=== PATIENT | male | born 1970 | race American Indian/Alaskan Native ===

== ENCOUNTER 2017-12-17 16:11 | Inpatient (IN) | payer MEDICARE ==
[2017-12-17] MEDS ORDERED: ASPIRIN PO ONE (16:33)
--- NOTE | 2017-12-17 16:41 | Emergency Department Report ---
ED Abdominal Pain HPI - General Chief Complaint: Abdominal Pain Stated Complaint: ABD PAIN Time Seen by Provider: 12/17/17 16:35 Source: patient Mode of arrival: Stretcher Limitations: No Limitations - History of Present Illness Initial Comments: She is a 47-year-old male presents to emergency room with complaints of chest pain, shortness of breath and abdominal pain. Patient states that the chest pain as a 10 out of 10. Patient states the pain is better with rest and worse with exertion. Patient states his shortness of breath is better with rest and worse with exertion. Patient states the abdominal pain is a 10 out of 10 and is better with rest and worse with movement and palpation. Patient also complains of abdominal distention and swelling. Patient states he's never had this before patient states SYMPTOMS STARTED 1 DAY AGO. She states he is on hemodialysis on Monday. The patient states he did not miss any of his dialysis sessions. Patient states he had dialysis yesterday. Patient says dialysis was normal and shortly after he developed the swelling in his abdomen. Patient also complains of nausea, vomiting and dizziness that started this morning MD Complaint: abdominal pain -: Sudden Location: diffuse Radiation: none Migration to: no migration Severity scale (0 -10): 10 Quality: stabbing, fullness Consistency: constant Improves With: rest Worsens With: movement Associated Symptoms: nausea, vomiting. denies: diarrhea, fever, chills, constipation, dysuria, hematemesis, hematochezia, melena, hematuria, anorexia, syncope - Related Data Home Medications Medication Instructions Recorded Confirmed Last Taken Furosemide [Lasix] 20 mg PO BID 10/10/17 10/10/17 Unknown Labetalol [Normodyne TAB] 100 mg PO DAILY 10/10/17 10/10/17 Unknown Allergies Allergy/AdvReac Type Severity Reaction Status Date / Time No Known Allergies Allergy Verified 01/30/17 20:04 ED Review of Systems ROS: Stated complaint: ABD PAIN Other details as noted in HPI Constitutional: denies: chills, fever Eyes: denies: eye pain, eye discharge, vision change ENT: denies: ear pain, throat pain Respiratory: shortness of breath, SOB with exertion, SOB at rest. denies: cough , wheezing Cardiovascular: chest pain. denies: palpitations Endocrine: no symptoms reported Gastrointestinal: abdominal pain, nausea, vomiting. denies: diarrhea Genitourinary: denies: urgency, dysuria Musculoskeletal: denies: back pain, joint swelling, arthralgia Skin: denies: rash, lesions Neurological: vertigo. denies: headache, weakness, paresthesias Psychiatric: denies: anxiety, depression Hematological/Lymphatic: denies: easy bleeding, easy bruising ED Past Medical Hx - Past Medical History Previous Medical History?: Yes Hx Hypertension: Yes Hx Congestive Heart Failure: No Hx Diabetes: No Hx Renal Disease: Yes Hx Asthma: No Hx COPD: No Hx HIV: No - Surgical History Past Surgical History?: Yes Additional Surgical History: dialysis access left arm - Family History Family history: hypertension - Social History Smoking Status: Current Every Day Smoker Substance Use Type: None - Medications Home Medications: Home Medications Medication Instructions Recorded Confirmed Last Taken Type Furosemide [Lasix] 20 mg PO BID 10/10/17 10/10/17 Unknown History Labetalol [Normodyne TAB] 100 mg PO DAILY 10/10/17 10/10/17 Unknown History ED Physical Exam - General Limitations: No Limitations General appearance: alert, in no apparent distress - Head Head exam: Present: atraumatic, normocephalic - Eye Eye exam: Present: normal appearance - ENT ENT exam: Present: mucous membranes moist - Neck Neck exam: Present: normal inspection - Respiratory Respiratory exam: Present: normal lung sounds bilaterally. Absent: respiratory distress - Cardiovascular Cardiovascular Exam: Present: regular rate, normal rhythm. Absent: systolic murmur, diastolic murmur, rubs, gallop - GI/Abdominal GI/Abdominal exam: Present: soft, distended, tenderness (generalized tenderness) , normal bowel sounds - Rectal Rectal exam: Present: deferred - Extremities Exam Extremities exam: Present: full ROM, pedal edema (bilateral lower extremity edema) - Back Exam Back exam: Present: normal inspection - Neurological Exam Neurological exam: Present: alert, oriented X3 - Psychiatric Psychiatric exam: Present: normal affect, normal mood - Skin Skin exam: Present: warm, dry, intact, normal color. Absent: rash ED Course Vital Signs 12/17/17 12/17/17 12/17/17 16:14 16:17 16:18 Temperature 98.5 F Pulse Rate 89 88 90 Respiratory 16 20 Rate Blood Pressure 198/130 O2 Sat by Pulse 99 100 Oximetry 12/17/17 12/17/17 12/17/17 16:19 16:21 16:23 Temperature Pulse Rate 86 87 86 Respiratory 17 16 16 Rate Blood Pressure 195/129 O2 Sat by Pulse 98 99 Oximetry 12/17/17 12/17/17 12/17/17 16:25 16:27 16:29 Temperature Pulse Rate 87 89 88 Respiratory 27 H 16 16 Rate Blood Pressure 195/129 195/129 195/129 O2 Sat by Pulse 99 99 100 Oximetry 12/17/17 12/17/17 12/17/17 16:30 16:33 16:35 Temperature Pulse Rate 87 86 85 Respiratory 13 18 19 Rate Blood Pressure 196/126 196/126 196/126 O2 Sat by Pulse 100 100 100 Oximetry 12/17/17 12/17/17 12/17/17 16:37 16:41 16:42 Temperature 97.9 F Pulse Rate 83 Respiratory 31 H 21 Rate Blood Pressure 196/126 O2 Sat by Pulse 98 100 Oximetry 12/17/17 12/17/17 12/17/17 16:45 16:51 16:55 Temperature Pulse Rate 86 85 85 Respiratory 17 21 31 H Rate Blood Pressure 202/126 202/126 202/126 O2 Sat by Pulse 100 100 100 Oximetry 12/17/17 12/17/17 12/17/17 17:00 17:05 17:11 Temperature Pulse Rate 83 84 82 Respiratory 29 H 27 H 20 Rate Blood Pressure 190/120 190/120 190/120 O2 Sat by Pulse 100 100 Oximetry 12/17/17 12/17/17 12/17/17 17:25 17:31 17:41 Temperature Pulse Rate 86 86 87 Respiratory 19 24 20 Rate Blood Pressure 190/120 190/124 190/124 O2 Sat by Pulse Oximetry 12/17/17 12/17/17 12/17/17 17:51 18:00 18:11 Temperature Pulse Rate 85 86 84 Respiratory 16 26 H 23 Rate Blood Pressure 197/120 195/124 195/124 O2 Sat by Pulse Oximetry 12/17/17 12/17/17 12/17/17 18:21 18:30 18:41 Temperature Pulse Rate 83 84 85 Respiratory 21 17 20 Rate Blood Pressure 198/130 199/122 199/122 O2 Sat by Pulse Oximetry 12/17/17 12/17/17 12/17/17 18:51 19:00 19:11 Temperature Pulse Rate 83 83 84 Respiratory 25 H 25 H 25 H Rate Blood Pressure 198/124 194/122 194/122 O2 Sat by Pulse Oximetry 12/17/17 12/17/17 12/17/17 19:21 19:30 19:41 Temperature Pulse Rate 84 84 85 Respiratory 21 20 27 H Rate Blood Pressure 200/125 198/123 198/123 O2 Sat by Pulse Oximetry 12/17/17 12/17/17 12/17/17 19:51 20:00 20:11 Temperature Pulse Rate 85 88 88 Respiratory 17 28 H 23 Rate Blood Pressure 194/119 192/120 192/120 O2 Sat by Pulse Oximetry 12/17/17 12/17/17 12/17/17 20:21 20:30 20:41 Temperature Pulse Rate 88 89 90 Respiratory 21 26 H 17 Rate Blood Pressure 185/110 195/118 195/118 O2 Sat by Pulse Oximetry 12/17/17 21:04 Temperature Pulse Rate 90 Respiratory Rate Blood Pressure 195/118 O2 Sat by Pulse Oximetry - Reevaluation(s) Reevaluation #1: plan of care discussed with patient. Patient agrees to admission. Patient states that she had Lasix in the past and it doesn't do anything to increase his urination. All results discussed with patient. 12/17/17 19:18 - Consultations Consultation #1: Hospitalist consulted for admission. Discussed case fully with hospitalist. Dr. Hodge, hospitalist to assume care. Hospitalist was made aware of all results. 12/17/17 19:19 ED Medical Decision Making - Lab Data Result diagrams: 12/17/17 16:30 12/17/17 16:30 - EKG Data -: EKG Interpreted by [facility] EKG shows normal: sinus rhythm, axis, intervals, QRS complexes, ST-T waves Rate: normal - EKG Data Interpretation: [facility] - Radiology Data Radiology results: report reviewed ct abd: CT abdomen positive for anasarca and ascites. Patient also found to have bilateral pleural effusions. Cardiac enlargement noted. Pulmonary congestion noted - Medical Decision Making pt is a 47-year-old male that presents to emergency room with chest pain, shortness of breath, bilateral lower extremity and abdominal edema, abdominal pain and abdominal distention. Patient found to be in acute exacerbation of CHF. Patient has an elevated troponin most likely secondary to renal disease. Due to the fact the patient does not create urine when given Lasix, it is a possibility that the treatment for this will be dialysis to remove the extra fluid. Hospitalist was made aware of the case patient to be admitted to the hospitalist service for further evaluation and treatment. Patient found to have cardiomegaly. Patient also found to have anasarca and ascites. - Differential Diagnosis new-onset CHF. Chest pain, shortness of breath, edema, anasarca, ascites Critical Care Time: Yes Critical care attestation.: If time is entered above; I have spent that time in minutes in the direct care of this critically ill patient, excluding procedure time. Critical Care Time: 35 minutes for cc time ED Disposition Clinical Impression: Hyperkalemia, End stage chronic kidney disease, ESRD (end stage renal disease) on dialysis, Anasarca, Lower extremity edema, Abdominal distension, Shortness of breath, Elevated troponin, Elevated brain natriuretic peptide (BNP) level Anemia Qualifiers: Anemia type: unspecified type Qualified Code(s): D64.9 - Anemia, unspecified Abdominal pain Qualifiers: Abdominal location: generalized Qualified Code(s): R10.84 - Generalized abdominal pain Chest pain Qualifiers: Chest pain type: unspecified Qualified Code(s): R07.9 - Chest pain, unspecified CHF exacerbation Qualifiers: Heart failure type: unspecified Qualified Code(s): I50.9 - Heart failure, unspecified Disposition: OP ADMIT IP TO THIS HOSP Is pt being admited?: Yes Does the pt Need Aspirin: No Condition: Critical Time of Disposition: 19:28 ISAI score - Isai Score Age > 65: (0) No Aspirin use within the Past 7 Days: (0) No 3 or more CAD Risk Factors: (1) Yes 2 or more Angina events in past 24 hrs: (1) Yes Known CAD with more than 50% Stenosis: (0) No Elevated Cardiac Markers: (1) Yes ST Deviation Greater than 0.5mm: (0) No ISAI Score: 3 Head Injury w/o Laceration - HPI Chief Complaint: Abdominal Pain Stated Complaint: ABD PAIN Time Seen by Provider: 12/17/17 16:35 Heart Score - HEART Score History: Slightly suspicious EKG: Normal Age: 45-65 Risk factors: > 3 risk factors or hx of atherosclerotic disease Troponin: 1-3x normal limit HEART Score: 4
[2017-12-17] MEDS ORDERED: MORPHINE IV ONE (16:56)
[2017-12-17 17:00] LABS: Albumin 4.1 g/dL (3.9-5); Calcium 9.2 mg/dL (8.4-10.2)
[2017-12-17 17:04] LABS: Hematocrit 26.8 % (35.5-45.6); Hemoglobin 8.4 gm/dl (11.8-15.2); Mean Corpuscular HGB Conc 32 % (32-34); Mean Corpuscular Hemoglobin 28 pg (28-32); Mean Corpuscular Volume 88 fl (84-94); Platelet Count 201 K/mm3 (140-440); Red Blood Count 3.04 M/mm3 (3.65-5.03); Red Cell Distribution Width 18.5 % (13.2-15.2)
[2017-12-17 17:19] LABS: Chol/HDL Ratio 2.36 %
--- NOTE | 2017-12-17 18:08 | Cat Scan Report ---
FINAL REPORT EXAM: CT ABDOMEN PELVIS WO CON HISTORY: abd pain COMPARISON: CT of the abdomen pelvis January 2017. TECHNIQUE: Contiguous axial images were obtained. Additional sagittal and coronal reformatted images were obtained. FINDINGS: Small right-sided pleural effusion and nonspecific linear ground-glass opacities at the lung bases concerning for mild atelectasis versus congestion. Moderate cardiac enlargement. Trace pericardial effusion measuring 7 millimeters in thickness. Liver, spleen, pancreas are grossly unremarkable. Nodular thickening of adrenal glands. Polycystic kidney disease. Innumerable bilateral renal cysts. There are numerable hyperdense bilateral renal lesions likely reflecting hyperdense cysts. Solid nodule is not excluded on this study. Few parenchymal calcifications are scattered throughout the kidneys. No obstructive renal calculi. No hydronephrosis. Aorta and IVC normal in caliber. Mild calcification aorta. [id number] diffuse body wall edema. The small to moderate amount of free fluid in the abdomen and pelvis. Small right inguinal hernia containing fluid. No loculated collection. No free air. Urinary bladder and prostate gland are grossly unremarkable. Large and small bowel loops normal in caliber. No focal inflammatory changes the bowel or bowel obstruction. The appendix is not visualized. Prior anterior abdominal wall herniorrhaphy. No evidence of recurrent hernia. Diffuse sclerosis of the lumbar spine compatible with renal osteodystrophy. Grade 1 anterolisthesis of L4 on L5 by approximately 7 millimeters due to bilateral pars defects. Severe loss of disc height at that level. This IMPRESSION: Polycystic kidney disease. No hydronephrosis. Innumerable bilateral renal cysts and probable hyperdense cyst. No hydronephrosis. Solid renal lesion not excluded on this exam. Prominent diffuse body wall edema and small to moderate amount of ascites. No loculated collection. Small right-sided pleural effusion with linear ground-glass opacities at the lung bases concerning for mild congestion. Moderate cardiac enlargement with trace pericardial fluid. Sclerotic changes of renal osteodystrophy.
[2017-12-17 18:21] LABS: Anisocytosis 1+; Platelet Estimate Consistent w Auto; Total Cells Counted 100
--- NOTE | 2017-12-17 19:25 | XRay Report ---
FINAL REPORT PROCEDURE: XR CHEST 1V AP TECHNIQUE: Chest radiograph anteroposterior view. CPT 94381 HISTORY: [email or web address] COMPARISON: 10/09/2017 FINDINGS: Heart: Cardiac size is upper limit of normal. Mediastinum/Vessels: Normal. Lungs/Pleural space: This study is limited due to suboptimal inspiration. There are no obvious confluent infiltrates or mass lesions. Pleural spaces are clear.. Bony thorax: No acute osseous abnormality. Life support devices: None. IMPRESSION: Limited study due to suboptimal inspiration No obvious acute pulmonary process Cardiac size is upper limit of normal A two view chest study is recommended whenever the patient's condition permits..
[2017-12-17] MEDS ORDERED: APRESOLINE IV ONE (21:00)
--- NOTE | 2017-12-17 22:07 | History and Physical Report ---
History of Present Illness Date of examination: 12/17/17 Date of admission: 12/17/17 Chief complaint: Chief complaint: Increasing shortness of breath and swelling all over for 1 week History of present illness: History of Present Illness: 47-year-old black male with history of hypertension end-stage renal disease noncompliant with dialysis comes in for increasing shortness of breath increasing distention of the abdomen and swelling of both the lower extremities. Patient says that he had dialysis yesterday. He has a history of end-stage renal disease since 2012. Went off dialysis from the beginning of 2015 through December 2016. Resume hemodialysis on [facility] but he stays near [facility]. He wants to go to the dialysis center close by. Has been noncompliant because of transportation issues. Patient has been having increasing shortness of breath increasing abdominal girth and bilateral pedal edema. Shortness of breath on minimal exertion. Excessive fluid intake. Patient is on dialysis Monday and Monday. Had dialysis yesterday. Past Medical History Previous Medical History?: Yes Hx Hypertension: Yes Hx Renal Disease: Yes Surgical History Past Surgical History?: Yes Additional Surgical History: dialysis access left arm Family History Family history: hypertension Social History Smoking Status: Current Every Day Smoker Substance Use Type: None Medications Home Medications: Home Medications Medication Instructions Recorded Confirmed Last Taken Type Furosemide [Lasix] 20 mg PO BID 10/10/17 10/10/17 Unknown History Labetalol [Normodyne TAB] 100 mg PO DAILY 10/10/17 10/10/17 Unknown History Review of systems ROS: Stated complaint: ABD PAIN Other details as noted in HPI Constitutional: denies: chills, fever Eyes: denies: eye pain, eye discharge, vision change ENT: denies: ear pain, throat pain Respiratory: shortness of breath, SOB with exertion, SOB at rest. denies: cough , wheezing Cardiovascular: chest pain. denies: palpitations Endocrine: no symptoms reported Gastrointestinal: abdominal pain, nausea, vomiting. denies: diarrhea , has severe abdominal distention Genitourinary: denies: urgency, dysuria Musculoskeletal: denies: back pain, joint swelling, arthralgia swelling of both the legs Skin: denies: rash, lesions Neurological: vertigo. denies: headache, weakness, paresthesias Psychiatric: denies: anxiety, depression Hematological/Lymphatic: denies: easy bleeding, easy bruising 14 point review of systems done--otherwise negative Medications and Allergies Allergies Allergy/AdvReac Type Severity Reaction Status Date / Time No Known Allergies Allergy Verified 01/30/17 20:04 Home Medications Medication Instructions Recorded Confirmed Last Taken Type Furosemide [Lasix] 20 mg PO BID 10/10/17 10/10/17 Unknown History Labetalol [Normodyne TAB] 100 mg PO DAILY 10/10/17 10/10/17 Unknown History Exam - Physical Exam Narrative exam: Lying in bed in mild distress - Constitutional Vitals: Temp Pulse Resp BP Pulse Ox 97.9 F 90 17 195/118 100 12/17/17 16:42 12/17/17 21:04 12/17/17 20:41 12/17/17 21:04 12/17/17 17:05 General appearance: Present: mild distress, well-nourished - EENT Eyes: Present: PERRL ENT: hearing intact, clear oral mucosa - Neck Neck: Present: supple, normal ROM - Respiratory Respiratory effort: normal Respiratory: bilateral: CTA, rales - Cardiovascular Heart rate: 96 Rhythm: regular Heart Sounds: Present: S1 & S2. Absent: rub, click - Extremities Extremities: no ischemia, pulses intact, pulses symmetrical, abnormal ( significant swelling of both lower extremities) Extremity abnormal: edema (4+ pitting edema both lower extremities), other (4+ pitting edema both lower extremities) Peripheral Pulses: within normal limits - Abdominal General gastrointestinal: Present: soft, non-tender, non-distended, normal bowel sounds Male genitourinary: Present: normal - Rectal Rectal Exam: deferred - Integumentary Integumentary: Present: clear, warm, dry - Musculoskeletal Musculoskeletal: gait normal, strength equal bilaterally - Psychiatric Psychiatric: appropriate mood/affect, intact judgment & insight - Neurologic Neurologic: CNII-XII intact, moves all extremities - Allied Health Allied health notes reviewed: nursing, case management Results - Labs CBC & Chem 7: 12/17/17 16:30 12/17/17 16:30 Labs: Laboratory Last Values WBC 7.2 K/mm3 (4.5-11.0) 12/17/17 16:30 RBC 3.04 M/mm3 (3.65-5.03) L 12/17/17 16:30 Hgb 8.4 gm/dl (11.8-15.2) L 12/17/17 16:30 Hct 26.8 % (35.5-45.6) L 12/17/17 16:30 MCV 88 fl (84-94) 12/17/17 16:30 MCH 28 pg (28-32) 12/17/17 16:30 MCHC 32 % (32-34) 12/17/17 16:30 RDW 18.5 % (13.2-15.2) H 12/17/17 16:30 Plt Count 201 K/mm3 (140-440) 12/17/17 16:30 Lymph % (Auto) Physical Therapy Supervisor 12/17/17 16:30 Ripley % (Auto) Physical Therapy Supervisor 12/17/17 16:30 Eos % (Auto) Physical Therapy Supervisor 12/17/17 16:30 Baso % (Auto) Physical Therapy Supervisor 12/17/17 16:30 Lymph # Physical Therapy Supervisor 12/17/17 16:30 Ripley # Physical Therapy Supervisor 12/17/17 16:30 Eos # Physical Therapy Supervisor 12/17/17 16:30 Baso # Physical Therapy Supervisor 12/17/17 16:30 Add Manual Diff Complete 12/17/17 16:30 Total Counted 100 12/17/17 16:30 Seg Neutrophils % Physical Therapy Supervisor 12/17/17 16:30 Seg Neuts % (Manual) 62.0 % (40.0-70.0) 12/17/17 16:30 Band Neutrophils % 0 % 12/17/17 16:30 Lymphocytes % (Manual) 19.0 % (13.4-35.0) 12/17/17 16:30 Reactive Lymphs % (Man) 0 % 12/17/17 16:30 Monocytes % (Manual) 12.0 % (0.0-7.3) H 12/17/17 16:30 Eosinophils % (Manual) 6.0 % (0.0-4.3) H 12/17/17 16:30 Basophils % (Manual) 1.0 % (0.0-1.8) 12/17/17 16:30 Metamyelocytes % 0 % 12/17/17 16:30 Myelocytes % 0 % 12/17/17 16:30 Promyelocytes % 0 % 12/17/17 16:30 Blast Cells % 0 % 12/17/17 16:30 Nucleated RBC % Not Reportable 12/17/17 16:30 Seg Neutrophils # Physical Therapy Supervisor 12/17/17 16:30 Seg Neutrophils # Man 4.5 K/mm3 (1.8-7.7) 12/17/17 16:30 Band Neutrophils # 0.0 K/mm3 12/17/17 16:30 Lymphocytes # (Manual) 1.4 K/mm3 (1.2-5.4) 12/17/17 16:30 Abs React Lymphs (Man) 0.0 K/mm3 12/17/17 16:30 Monocytes # (Manual) 0.9 K/mm3 (0.0-0.8) H 12/17/17 16:30 Eosinophils # (Manual) 0.4 K/mm3 (0.0-0.4) 12/17/17 16:30 Basophils # (Manual) 0.1 K/mm3 (0.0-0.1) 12/17/17 16:30 Metamyelocytes # 0.0 K/mm3 12/17/17 16:30 Myelocytes # 0.0 K/mm3 12/17/17 16:30 Promyelocytes # 0.0 K/mm3 12/17/17 16:30 Blast Cells # 0.0 K/mm3 12/17/17 16:30 WBC Morphology Not Reportable 12/17/17 16:30 Hypersegmented Neuts Not Reportable 12/17/17 16:30 Hyposegmented Neuts Not Reportable 12/17/17 16:30 Hypogranular Neuts Not Reportable 12/17/17 16:30 Smudge Cells Not Reportable 12/17/17 16:30 Toxic Granulation Not Reportable 12/17/17 16:30 Toxic Vacuolation Not Reportable 12/17/17 16:30 Dohle Bodies Not Reportable 12/17/17 16:30 Pelger-Huet Anomaly Not Reportable 12/17/17 16:30 Vin Rods Not Reportable 12/17/17 16:30 Platelet Estimate Consistent w auto 12/17/17 16:30 Clumped Platelets Not Reportable 12/17/17 16:30 Plt Clumps, EDTA Not Reportable 12/17/17 16:30 Large Platelets Not Reportable 12/17/17 16:30 Giant Platelets Not Reportable 12/17/17 16:30 Platelet Satelliting Not Reportable 12/17/17 16:30 Plt Morphology Comment Not Reportable 12/17/17 16:30 RBC Morphology Not Reportable 12/17/17 16:30 Dimorphic RBCs Not Reportable 12/17/17 16:30 Polychromasia Not Reportable 12/17/17 16:30 Hypochromasia Not Reportable 12/17/17 16:30 Poikilocytosis Not Reportable 12/17/17 16:30 Anisocytosis 1+ 12/17/17 16:30 Microcytosis Not Reportable 12/17/17 16:30 Macrocytosis Not Reportable 12/17/17 16:30 Spherocytes Not Reportable 12/17/17 16:30 Pappenheimer Bodies Not Reportable 12/17/17 16:30 Sickle Cells Not Reportable 12/17/17 16:30 Target Cells Not Reportable 12/17/17 16:30 Tear Drop Cells Not Reportable 12/17/17 16:30 Ovalocytes Not Reportable 12/17/17 16:30 Helmet Cells Not Reportable 12/17/17 16:30 [place] Bodies Not Reportable 12/17/17 16:30 [place] Rings Not Reportable 12/17/17 16:30 [place] Cells Not Reportable 12/17/17 16:30 Bite Cells Not Reportable 12/17/17 16:30 Crenated Cell Not Reportable 12/17/17 16:30 Elliptocytes Not Reportable 12/17/17 16:30 Acanthocytes (Spur) Not Reportable 12/17/17 16:30 Rouleaux Not Reportable 12/17/17 16:30 Hemoglobin C Crystals Not Reportable 12/17/17 16:30 Schistocytes Not Reportable 12/17/17 16:30 Malaria parasites Not Reportable 12/17/17 16:30 Charbel Bodies Not Reportable 12/17/17 16:30 Hem Pathologist Commnt No 12/17/17 16:30 Sodium 136 mmol/L (137-145) L 12/17/17 16:30 Potassium 5.9 mmol/L (3.6-5.0) H 12/17/17 16:30 Chloride 93.0 mmol/L (98-107) L 12/17/17 16:30 Carbon Dioxide 23 mmol/L (22-30) 12/17/17 16:30 Anion Gap 26 mmol/L 12/17/17 16:30 BUN 65 mg/dL (9-20) H 12/17/17 16:30 Creatinine 10.4 mg/dL (0.8-1.5) H 12/17/17 16:30 Estimated GFR 7 ml/min 12/17/17 16:30 BUN/Creatinine Ratio 6 % 12/17/17 16:30 Glucose 78 mg/dL (75-100) 12/17/17 16:30 Lactic Acid 1.50 mmol/L (0.7-2.0) 12/17/17 21:09 Calcium 9.2 mg/dL (8.4-10.2) 12/17/17 16:30 Total Bilirubin 0.60 mg/dL (0.1-1.2) 12/17/17 16:30 AST 33 units/L (5-40) 12/17/17 16:30 ALT 20 units/L (7-56) 12/17/17 16:30 Alkaline Phosphatase 86 units/L (35-129) 12/17/17 16:30 Troponin T 0.362 ng/mL (0.00-0.029) H* 12/17/17 21:09 NT-Pro-B Natriuret Pep > 86028 pg/mL (0-450) H 12/17/17 16:30 Total Protein 7.9 g/dL (6.3-8.2) 12/17/17 16:30 Albumin 4.1 g/dL (3.9-5) 12/17/17 16:30 Albumin/Globulin Ratio 1.1 % 12/17/17 16:30 Triglycerides 63 mg/dL (2-149) 12/17/17 16:30 Cholesterol 137 mg/dL (50-199) 12/17/17 16:30 LDL Cholesterol Direct 73 mg/dL (50-130) 12/17/17 16:30 HDL Cholesterol 58 mg/dL (40-59) 12/17/17 16:30 Cholesterol/HDL Ratio 2.36 % 12/17/17 16:30 - Imaging and Cardiology EKG: report reviewed (sinus rhythm 84/m left atrial enlargement and left ventricular enlargement) Imaging and Cardiology: CT abdomen and pelvis IMPRESSION: Polycystic kidney disease. No hydronephrosis. Innumerable bilateral renal cysts and probable hyperdense cyst. No hydronephrosis. Solid renal lesion not excluded on this exam. Prominent diffuse body wall edema and small to moderate amount of ascites. No loculated collection. Small right-sided pleural effusion with linear ground-glass opacities at the lung bases concerning for mild congestion. Moderate cardiac enlargement with trace pericardial fluid. Sclerotic changes of renal osteodystrophy. Chest x-ray IMPRESSION: Limited study due to suboptimal inspiration No obvious acute pulmonary process Cardiac size is upper limit of normal A two view chest study is recommended whenever the patient's condition permits.. Assessment and Plan Advance Directives: Yes (full code) VTE prophylaxis?: Chemical Plan of care discussed with patient/family: Yes - Patient Problems (1) Hypertensive emergency Current Visit: Yes Status: Acute Plan to address problem: Patient initiated on losartan hydralazine and increase the labetalol 200 every 8.. Also IV hydralazine 10 mg every 2 hours as necessary (2) Anasarca Current Visit: Yes Status: Acute Plan to address problem: Patient needs dialysis and increase ultrafiltration so the volume can be removed. Dialysis can be done in the morning. 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 Nephrology on-call consulted We'll also get echocardiogram for ejection fraction and valve function and to rule out pulmonary hypertension (3) Anemia Current Visit: Yes Status: Chronic Qualifiers: Anemia type: unspecified type Qualified Code(s): D64.9 - Anemia, unspecified Plan to address problem: We will defer to nephrology regarding Epogen (4) ESRD (end stage renal disease) on dialysis Current Visit: Yes Status: Acute Plan to address problem: Needs dialysis in the morning Increase ultrafiltration to remove the volume (5) Hyperkalemia Current Visit: Yes Status: Acute Plan to address problem: Kayexalate calcium gluconate and sodium bicarbonate given in the emergency room Also for dialysis in the morning (6) Lower extremity edema Current Visit: Yes Status: Acute Plan to address problem: Secondary to fluid retention IV Lasix initiated (7) DVT prophylaxis Current Visit: Yes Status: Acute Plan to address problem: on heparin 5000 every 12 GI prophylaxis initiated with famotidine
[2017-12-17] MEDS ORDERED: SODIUM CHLORIDE FLUSH SYRINGE 10 ML IV PRN (22:08)
[2017-12-17] MEDS ORDERED: ZOFRAN IV PRN (22:08)
[2017-12-17] MEDS ORDERED: TYLENOL PO PRN (22:08)
[2017-12-17] MEDS ORDERED: CALCIUM GLUCONATE 2,000 MG in NACL 0.9% 100 ML IV ONE (22:11)
[2017-12-17] MEDS ORDERED: KIONEX PO ONE (22:11)
[2017-12-17] MEDS ORDERED: SODIUM BICARBONATE IV ONE (22:14)
[2017-12-18] MEDS: APRESOLINE PO SCH ×4 (00:08→21:08)
[2017-12-18] MEDS: HEPARIN SUB-Q SCH ×3 (00:08→21:08)
[2017-12-18] MEDS: NORMODYNE PO SCH ×3 (00:09→21:05)
[2017-12-18] MEDS: MORPHINE IV PRN ×3 (02:20→22:33)
[2017-12-18] MEDS: APRESOLINE IV PRN ×3 (02:36→18:30)
[2017-12-18 06:13] LABS: Hematocrit 26.1 % (35.5-45.6); Hemoglobin 8.5 gm/dl (11.8-15.2); Mean Corpuscular HGB Conc 33 % (32-34); Mean Corpuscular Hemoglobin 28 pg (28-32); Mean Corpuscular Volume 86 fl (84-94); Platelet Count 214 K/mm3 (140-440); Red Blood Count 3.03 M/mm3 (3.65-5.03); Red Cell Distribution Width 18.9 % (13.2-15.2)
[2017-12-18 06:29] LABS: Albumin 3.9 g/dL (3.9-5); Calcium 9.3 mg/dL (8.4-10.2)
[2017-12-18 09:12] LABS: Anisocytosis 1+; Poikilocytosis 1+; Total Cells Counted 100
[2017-12-18 09:13] LABS: Large Platelets Few; Ovalocytes Few
[2017-12-18 09:14] LABS: Platelet Estimate Cons; Tear Drop Cells Few
[2017-12-18] MEDS: COZAAR PO SCH (11:03)
[2017-12-18] MEDS: SODIUM CHLORIDE FLUSH SYRINGE 10 ML IV SCH ×2 (11:05→22:39)
[2017-12-18] MEDS: PEPCID PO SCH ×2 (11:05→21:08)
[2017-12-18] MEDS ORDERED: NACL 0.9% 100 ML IV PRN (13:21)
--- NOTE | 2017-12-18 13:21 | Consultation ---
History of Present Illness - Reason for Consult Consult date: 12/18/17 end stage renal disease, accelerated hypertension Requesting physician: DANYA GAY - History of Present Illness 47-year-old black male with history of hypertension end-stage renal disease noncompliant with dialysis comes in for increasing shortness of breath increasing distention of the abdomen and swelling of both the lower extremities. Patient says that he had dialysis yesterday. He has a history of end-stage renal disease since 2012. Went off dialysis from the beginning of 2015 through December 2016. Resume hemodialysis on [facility] but he stays near [facility]. He wants to go to the dialysis center close by. Has been noncompliant because of transportation issues. Patient has been having increasing shortness of breath increasing abdominal girth and bilateral pedal edema. Shortness of breath on minimal exertion. Excessive fluid intake. Patient is on dialysis Monday and Monday. Had dialysis yesterday. Past Medical History Previous Medical History?: Yes Hx Hypertension: Yes Hx Renal Disease: Yes Surgical History Past Surgical History?: Yes Additional Surgical History: dialysis access left arm Family History Family history: hypertension Social History Smoking Status: Current Every Day Smoker Substance Use Type: None Review of systems ROS: Stated complaint: ABD PAIN Other details as noted in HPI Constitutional: denies: chills, fever Eyes: denies: eye pain, eye discharge, vision change ENT: denies: ear pain, throat pain Respiratory: shortness of breath, SOB with exertion, SOB at rest. denies: cough , wheezing Cardiovascular: chest pain. denies: palpitations Endocrine: no symptoms reported Gastrointestinal: abdominal pain, nausea, vomiting. denies: diarrhea , has severe abdominal distention Genitourinary: denies: urgency, dysuria Musculoskeletal: denies: back pain, joint swelling, arthralgia swelling of both the legs Skin: denies: rash, lesions Neurological: vertigo. denies: headache, weakness, paresthesias Psychiatric: denies: anxiety, depression Hematological/Lymphatic: denies: easy bleeding, easy bruising 14 point review of systems done--otherwise negative Medications and Allergies Allergies Allergy/AdvReac Type Severity Reaction Status Date / Time No Known Allergies Allergy Verified 01/30/17 20:04 Home Medications Medication Instructions Recorded Confirmed Last Taken Type Furosemide [Lasix] 20 mg PO BID 10/10/17 12/18/17 Unknown History Escitalopram [Lexapro] 10 mg PO DAILY 12/18/17 12/18/17 Unknown History Hydralazine HCl 50 mg PO QID 12/18/17 12/18/17 Unknown History cloNIDine [Catapres] 0.2 mg PO BID 12/18/17 12/18/17 Unknown History Active Meds: Active Medications Acetaminophen (Tylenol) 650 mg PO Q4H PRN PRN Reason: Pain MILD(1-3)/Fever >100.5/SWAIN Famotidine (Pepcid) 10 mg PO BID [facility] Last Admin: 12/18/17 11:05 Dose: Not Given Furosemide (Lasix) 80 mg IV QDAY [facility] Heparin Sodium (Porcine) (Heparin) 5,000 unit SUB-Q Q12HR [facility] Last Admin: 12/18/17 11:04 Dose: 5,000 unit Hydralazine HCl (Apresoline) 50 mg PO Q8HR [facility] Last Admin: 12/18/17 07:28 Dose: 50 mg Hydralazine HCl (Apresoline) 10 mg IV Q2H PRN PRN Reason: Blood Pressure Last Admin: 12/18/17 07:30 Dose: 10 mg Labetalol HCl (Normodyne) 100 mg PO Q8HR [facility] Last Admin: 12/18/17 07:29 Dose: Not Given Losartan Potassium (Cozaar) 100 mg PO QDAY [facility] Last Admin: 12/18/17 11:03 Dose: 100 mg Morphine Sulfate (Morphine) 2 mg IV Q4H PRN PRN Reason: Pain, Moderate (4-6) Last Admin: 12/18/17 02:20 Dose: 2 mg Ondansetron HCl (Zofran) 4 mg IV Q8H PRN PRN Reason: Nausea And Vomiting Oxycodone/Acetaminophen (Percocet 5/325) 1 tab PO Q6H PRN PRN Reason: Pain, Moderate (4-6) Sodium Chloride (Sodium Chloride Flush Syringe 10 Ml) 10 ml IV BID [facility] Last Admin: 12/18/17 11:05 Dose: Not Given Sodium Chloride (Sodium Chloride Flush Syringe 10 Ml) 10 ml IV PRN PRN PRN Reason: LINE FLUSH Exam - Vital Signs Vital signs: Vital Signs Pulse 89 12/17/17 16:14 - Physical Exam Narrative exam: General appearance: Present: mild distress, well-nourished - EENT Eyes: Present: PERRL ENT: hearing intact, clear oral mucosa - Neck Neck: Present: supple, normal ROM - Respiratory Respiratory effort: normal Respiratory: bilateral: CTA, rales - Cardiovascular Heart rate: 96 Rhythm: regular Heart Sounds: Present: S1 & S2. Absent: rub, click - Extremities Extremities: no ischemia, pulses intact, pulses symmetrical, abnormal ( significant swelling of both lower extremities) Extremity abnormal: edema (4+ pitting edema both lower extremities), other (4+ pitting edema both lower extremities) Peripheral Pulses: within normal limits - Abdominal General gastrointestinal: Present: soft, non-tender, non-distended, normal bowel sounds Male genitourinary: Present: normal - Rectal Rectal Exam: deferred - Integumentary Integumentary: Present: clear, warm, dry - Musculoskeletal Musculoskeletal: gait normal, strength equal bilaterally - Psychiatric Psychiatric: appropriate mood/affect, intact judgment & insight - Neurologic Neurologic: CNII-XII intact, moves all extremities - Allied Health Allied health notes reviewed: nursing, case management Results - Lab Results 12/18/17 06:00 12/18/17 06:00 Most recent lab results Calcium 9.3 mg/dL (8.4-10.2) 12/18/17 06:00 Assessment and Plan Impression: ESRD Acc HTN HYperkalemia noncompliance with hd anasarca anemia in esrd Plan: Dialysis today and q TTS uf as tolerated with hd strict i/os daily lytes stress compliance with hd and renal diet epogen once bp controlled
--- NOTE | 2017-12-18 14:56 | Progress Note ---
Assessment and Plan Assessment and plan: 47-year-old black male with history of hypertension end-stage renal disease noncompliant with dialysis comes in for increasing shortness of breath increasing distention of the abdomen and swelling of both the lower extremities. Patient says that he had dialysis yesterday. He has a history of end-stage renal disease since 2012. Went off dialysis from the beginning of 2015 through December 2016. Resume hemodialysis on [facility] but he stays near [facility]. He wants to go to the dialysis center close by. Has been noncompliant because of transportation issues. Patient has been having increasing shortness of breath increasing abdominal girth and bilateral pedal edema. Shortness of breath on minimal exertion. Excessive fluid intake. Patient is on dialysis Monday and Monday. Had dialysis yesterday. Hyperkalemaia ESRD HTN urgency Anascar Anemia Moderate Ascities Acute on chronic Diastolic Heart failure Plan Supportive care Dialysis per digital marketing consultant Nephrology conuslt Case management Reviewed last visit- cardiology defered to Nephro BP control Repeat Abdominal imagining to eval ascetics in a few days outpatient DVT/GI prophy Plan discussed in detail with the patient History Interval history: Patient seen and examined this morning still in mild respiratory distress although improving. Reports compliance with dialysis the last week. But states that he didn't receive the medication and dialysis about a month ago which led to bloating sensation. Also complicated by a recent hernia surgery. Hospitalist Physical - Physical exam Narrative exam: VITAL SIGNS: Reviewed. GENERAL: The patient appeared well nourished and normally developed. Vital signs as documented. HEAD: No signs of head trauma. EYES: Pupils are equal. Extraocular motions intact. EARS: Hearing grossly intact. MOUTH: Oropharynx is normal. NECK: No adenopathy, no JVD. CHEST: Chest with clear breath sounds bilaterally. No wheezes, rales, or rhonchi. CARDIAC: Regular rate and rhythm. S1 and S2, without murmurs, gallops, or rubs. VASCULAR: No Edema. Peripheral pulses normal and equal in all extremities. ABDOMEN: Soft, without detectable tenderness. No sign of distention. No rebound or guarding, and no masses palpated. Bowel Sounds normal. MUSCULOSKELETAL: Good range of motion of all major joints. Extremities without clubbing, cyanosis. generalized anascar. +2 pitting edema NEUROLOGIC EXAM: Alert and oriented x 3. No focal sensory or strength deficits. Speech normal. Follows commands. PSYCHIATRIC: Mood normal. SKIN: No rash or lesions. - Constitutional Vitals: Temp Pulse Resp BP Pulse Ox 97.9 F 93 H 22 184/112 95 12/17/17 16:42 12/18/17 02:36 12/18/17 00:01 12/18/17 11:03 12/17/17 22:15 General appearance: Present: mild distress, well-nourished Results - Labs CBC & Chem 7: 12/18/17 06:00 12/18/17 06:00 Labs: Laboratory Last Values WBC 7.3 K/mm3 (4.5-11.0) 12/18/17 06:00 RBC 3.03 M/mm3 (3.65-5.03) L 12/18/17 06:00 Hgb 8.5 gm/dl (11.8-15.2) L 12/18/17 06:00 Hct 26.1 % (35.5-45.6) L 12/18/17 06:00 MCV 86 fl (84-94) 12/18/17 06:00 MCH 28 pg (28-32) 12/18/17 06:00 MCHC 33 % (32-34) 12/18/17 06:00 RDW 18.9 % (13.2-15.2) H 12/18/17 06:00 Plt Count 214 K/mm3 (140-440) 12/18/17 06:00 Lymph % (Auto) Tube Cleaner 12/17/17 16:30 Charles % (Auto) Tube Cleaner 12/18/17 06:00 Eos % (Auto) Tube Cleaner 12/17/17 16:30 Baso % (Auto) Tube Cleaner 12/17/17 16:30 Lymph # Tube Cleaner 12/17/17 16:30 Charles # Tube Cleaner 12/17/17 16:30 Eos # Tube Cleaner 12/17/17 16:30 Baso # Tube Cleaner 12/17/17 16:30 Add Manual Diff Complete 12/18/17 06:00 Total Counted 100 12/18/17 06:00 Seg Neutrophils % Tube Cleaner 12/17/17 16:30 Seg Neuts % (Manual) 64.0 % (40.0-70.0) 12/18/17 06:00 Band Neutrophils % 0 % 12/18/17 06:00 Lymphocytes % (Manual) 11.0 % (13.4-35.0) L 12/18/17 06:00 Reactive Lymphs % (Man) 0 % 12/18/17 06:00 Monocytes % (Manual) 9.0 % (0.0-7.3) H 12/18/17 06:00 Eosinophils % (Manual) 14.0 % (0.0-4.3) H 12/18/17 06:00 Basophils % (Manual) 2.0 % (0.0-1.8) H 12/18/17 06:00 Metamyelocytes % 0 % 12/18/17 06:00 Myelocytes % 0 % 12/18/17 06:00 Promyelocytes % 0 % 12/18/17 06:00 Blast Cells % 0 % 12/18/17 06:00 Nucleated RBC % Not Reportable 12/18/17 06:00 Seg Neutrophils # Tube Cleaner 12/17/17 16:30 Seg Neutrophils # Man 4.7 K/mm3 (1.8-7.7) 12/18/17 06:00 Band Neutrophils # 0.0 K/mm3 12/18/17 06:00 Lymphocytes # (Manual) 0.8 K/mm3 (1.2-5.4) L 12/18/17 06:00 Abs React Lymphs (Man) 0.0 K/mm3 12/18/17 06:00 Monocytes # (Manual) 0.7 K/mm3 (0.0-0.8) 12/18/17 06:00 Eosinophils # (Manual) 1.0 K/mm3 (0.0-0.4) H 12/18/17 06:00 Basophils # (Manual) 0.1 K/mm3 (0.0-0.1) 12/18/17 06:00 Metamyelocytes # 0.0 K/mm3 12/18/17 06:00 Myelocytes # 0.0 K/mm3 12/18/17 06:00 Promyelocytes # 0.0 K/mm3 12/18/17 06:00 Blast Cells # 0.0 K/mm3 12/18/17 06:00 WBC Morphology Not Reportable 12/18/17 06:00 Hypersegmented Neuts Not Reportable 12/18/17 06:00 Hyposegmented Neuts Not Reportable 12/18/17 06:00 Hypogranular Neuts Not Reportable 12/18/17 06:00 Smudge Cells Not Reportable 12/18/17 06:00 Toxic Granulation Not Reportable 12/18/17 06:00 Toxic Vacuolation Not Reportable 12/18/17 06:00 Dohle Bodies Not Reportable 12/18/17 06:00 Pelger-Huet Anomaly Not Reportable 12/18/17 06:00 Vin Rods Not Reportable 12/18/17 06:00 Platelet Estimate Cons 12/18/17 06:00 Clumped Platelets Not Reportable 12/18/17 06:00 Plt Clumps, EDTA Not Reportable 12/18/17 06:00 Large Platelets Few 12/18/17 06:00 Giant Platelets Not Reportable 12/18/17 06:00 Platelet Satelliting Not Reportable 12/18/17 06:00 Plt Morphology Comment Not Reportable 12/18/17 06:00 RBC Morphology Not Reportable 12/18/17 06:00 Dimorphic RBCs Not Reportable 12/18/17 06:00 Polychromasia Few 12/18/17 06:00 Hypochromasia Not Reportable 12/18/17 06:00 Poikilocytosis 1+ 12/18/17 06:00 Anisocytosis 1+ 12/18/17 06:00 Microcytosis Not Reportable 12/18/17 06:00 Macrocytosis Not Reportable 12/18/17 06:00 Spherocytes Not Reportable 12/18/17 06:00 Pappenheimer Bodies Not Reportable 12/18/17 06:00 Sickle Cells Not Reportable 12/18/17 06:00 Target Cells Not Reportable 12/18/17 06:00 Tear Drop Cells Few 12/18/17 06:00 Ovalocytes Few 12/18/17 06:00 Helmet Cells Not Reportable 12/18/17 06:00 [place] Bodies Not Reportable 12/18/17 06:00 [place] Rings Not Reportable 12/18/17 06:00 [place] Cells Not Reportable 12/18/17 06:00 Bite Cells Not Reportable 12/18/17 06:00 Crenated Cell Not Reportable 12/18/17 06:00 Elliptocytes Few 12/18/17 06:00 Acanthocytes (Spur) Not Reportable 12/18/17 06:00 Rouleaux Not Reportable 12/18/17 06:00 Hemoglobin C Crystals Not Reportable 12/18/17 06:00 Schistocytes Not Reportable 12/18/17 06:00 Malaria parasites Not Reportable 12/18/17 06:00 Charbel Bodies Not Reportable 12/18/17 06:00 Hem Pathologist Commnt No 12/18/17 06:00 Sodium 140 mmol/L (137-145) 12/18/17 06:00 Potassium 5.2 mmol/L (3.6-5.0) H 12/18/17 06:00 Chloride 95.2 mmol/L (98-107) L 12/18/17 06:00 Carbon Dioxide 25 mmol/L (22-30) 12/18/17 06:00 Anion Gap 25 mmol/L 12/18/17 06:00 BUN 72 mg/dL (9-20) H 12/18/17 06:00 Creatinine 11.1 mg/dL (0.8-1.5) H 12/18/17 06:00 Estimated GFR 6 ml/min 12/18/17 06:00 BUN/Creatinine Ratio 6 % 12/18/17 06:00 Glucose 113 mg/dL (75-100) H 12/18/17 06:00 Hemoglobin A1c 5.9 % (4-6) 12/17/17 22:09 Lactic Acid 1.50 mmol/L (0.7-2.0) 12/17/17 21:09 Calcium 9.3 mg/dL (8.4-10.2) 12/18/17 06:00 Total Bilirubin 0.40 mg/dL (0.1-1.2) 12/18/17 06:00 AST 28 units/L (5-40) 12/18/17 06:00 ALT 20 units/L (7-56) 12/18/17 06:00 Alkaline Phosphatase 86 units/L (35-129) 12/18/17 06:00 Troponin T 0.358 ng/mL (0.00-0.029) H* 12/18/17 01:27 NT-Pro-B Natriuret Pep > 33249 pg/mL (0-450) H 12/17/17 16:30 Total Protein 7.7 g/dL (6.3-8.2) 12/18/17 06:00 Albumin 3.9 g/dL (3.9-5) 12/18/17 06:00 Albumin/Globulin Ratio 1.0 % 12/18/17 06:00 Triglycerides 63 mg/dL (2-149) 12/17/17 16:30 Cholesterol 137 mg/dL (50-199) 12/17/17 16:30 LDL Cholesterol Direct 73 mg/dL (50-130) 12/17/17 16:30 HDL Cholesterol 58 mg/dL (40-59) 12/17/17 16:30 Cholesterol/HDL Ratio 2.36 % 12/17/17 16:30
[2017-12-18] MEDS ORDERED: NACL 0.9 (PRIMING MACHINE ONLY DIALYSIS) MC ONE (17:56)
[2017-12-18] MEDS: PERCOCET 5/325 PO PRN (21:09)
[2017-12-18] MEDS: LASIX IV SCH (22:32)
[2017-12-19] MEDS: APRESOLINE IV PRN (00:59)
[2017-12-19] MEDS: NORMODYNE PO SCH ×3 (05:58→22:30)
[2017-12-19] MEDS: PERCOCET 5/325 PO PRN (05:58)
[2017-12-19] MEDS: APRESOLINE PO SCH ×2 (05:59→22:22)
[2017-12-19] MEDS: COZAAR PO SCH (10:07)
[2017-12-19] MEDS: HEPARIN SUB-Q SCH ×2 (10:07→22:18)
[2017-12-19] MEDS ORDERED: APRESOLINE PO SCH (10:07)
[2017-12-19] MEDS: PEPCID PO SCH ×2 (10:07→22:18)
[2017-12-19] MEDS: LASIX IV SCH (10:08)
--- NOTE | 2017-12-19 10:08 | Progress Note ---
Assessment and Plan Assessment and plan: 47-year-old black male with history of hypertension end-stage renal disease noncompliant with dialysis comes in for increasing shortness of breath increasing distention of the abdomen and swelling of both the lower extremities. Patient says that he had dialysis yesterday. He has a history of end-stage renal disease since 2012. Went off dialysis from the beginning of 2015 through December 2016. Resume hemodialysis on [facility] but he stays near [facility]. He wants to go to the dialysis center close by. Has been noncompliant because of transportation issues. Patient has been having increasing shortness of breath increasing abdominal girth and bilateral pedal edema. Shortness of breath on minimal exertion. Excessive fluid intake. Patient is on dialysis Monday and Monday. Had dialysis yesterday. Hyperkalemaia ESRD HTN urgency- STILL UNCONTROLLED Anascar Type 2 [place] secondary to ESRD Anemia Moderate Ascities Acute on chronic Diastolic Heart failure Plan Supportive care Dialysis per product development engineer Nephrology consult noted Restart Clonidine, Hepatitis panel Increase hydralazine to 100mg q8hr Case management Reviewed last visit- cardiology defered to Nephro BP control Repeat Abdominal imagining to eval ascetics in a few days outpatient DVT/GI prophy Plan discussed in detail with the patient History Interval history: Patient seen and examined this morning still not further respiratory distress. Reports some improvement but not yet at baseline no other adverse events reported by nursing staff Hospitalist Physical - Physical exam Narrative exam: VITAL SIGNS: Reviewed. GENERAL: The patient appeared well nourished and normally developed. Vital signs as documented. HEAD: No signs of head trauma. EYES: Pupils are equal. Extraocular motions intact. EARS: Hearing grossly intact. MOUTH: Oropharynx is normal. NECK: No adenopathy, no JVD. CHEST: Chest with clear breath sounds bilaterally. No wheezes, rales, or rhonchi. CARDIAC: Regular rate and rhythm. S1 and S2, without murmurs, gallops, or rubs. VASCULAR: No Edema. Peripheral pulses normal and equal in all extremities. ABDOMEN: Soft, without detectable tenderness. No sign of distention. No rebound or guarding, and no masses palpated. Bowel Sounds normal. MUSCULOSKELETAL: Good range of motion of all major joints. Extremities without clubbing, cyanosis. generalized anascar. +2 pitting edema NEUROLOGIC EXAM: Alert and oriented x 3. No focal sensory or strength deficits. Speech normal. Follows commands. PSYCHIATRIC: Mood normal. SKIN: No rash or lesions. - Constitutional Vitals: Temp Pulse Resp BP Pulse Ox 98.6 F 89 20 174/101 97 12/19/17 07:59 12/19/17 07:59 12/19/17 07:59 12/19/17 07:59 12/19/17 07:59 General appearance: Present: mild distress, well-nourished Results - Labs CBC & Chem 7: 12/18/17 06:00 12/18/17 06:00 Labs: Laboratory Last Values WBC 7.3 K/mm3 (4.5-11.0) 12/18/17 06:00 RBC 3.03 M/mm3 (3.65-5.03) L 12/18/17 06:00 Hgb 8.5 gm/dl (11.8-15.2) L 12/18/17 06:00 Hct 26.1 % (35.5-45.6) L 12/18/17 06:00 MCV 86 fl (84-94) 12/18/17 06:00 MCH 28 pg (28-32) 12/18/17 06:00 MCHC 33 % (32-34) 12/18/17 06:00 RDW 18.9 % (13.2-15.2) H 12/18/17 06:00 Plt Count 214 K/mm3 (140-440) 12/18/17 06:00 Lymph % (Auto) Hat Body Sorter 12/17/17 16:30 [place] % (Auto) Hat Body Sorter 12/18/17 06:00 Eos % (Auto) Hat Body Sorter 12/17/17 16:30 Baso % (Auto) Hat Body Sorter 12/17/17 16:30 Lymph # Hat Body Sorter 12/17/17 16:30 [place] # Hat Body Sorter 12/17/17 16:30 Eos # Hat Body Sorter 12/17/17 16:30 Baso # Hat Body Sorter 12/17/17 16:30 Add Manual Diff Complete 12/18/17 06:00 Total Counted 100 12/18/17 06:00 Seg Neutrophils % Hat Body Sorter 12/17/17 16:30 Seg Neuts % (Manual) 64.0 % (40.0-70.0) 12/18/17 06:00 Band Neutrophils % 0 % 12/18/17 06:00 Lymphocytes % (Manual) 11.0 % (13.4-35.0) L 12/18/17 06:00 Reactive Lymphs % (Man) 0 % 12/18/17 06:00 Monocytes % (Manual) 9.0 % (0.0-7.3) H 12/18/17 06:00 Eosinophils % (Manual) 14.0 % (0.0-4.3) H 12/18/17 06:00 Basophils % (Manual) 2.0 % (0.0-1.8) H 12/18/17 06:00 Metamyelocytes % 0 % 12/18/17 06:00 Myelocytes % 0 % 12/18/17 06:00 Promyelocytes % 0 % 12/18/17 06:00 Blast Cells % 0 % 12/18/17 06:00 Nucleated RBC % Not Reportable 12/18/17 06:00 Seg Neutrophils # Hat Body Sorter 12/17/17 16:30 Seg Neutrophils # Man 4.7 K/mm3 (1.8-7.7) 12/18/17 06:00 Band Neutrophils # 0.0 K/mm3 12/18/17 06:00 Lymphocytes # (Manual) 0.8 K/mm3 (1.2-5.4) L 12/18/17 06:00 Abs React Lymphs (Man) 0.0 K/mm3 12/18/17 06:00 Monocytes # (Manual) 0.7 K/mm3 (0.0-0.8) 12/18/17 06:00 Eosinophils # (Manual) 1.0 K/mm3 (0.0-0.4) H 12/18/17 06:00 Basophils # (Manual) 0.1 K/mm3 (0.0-0.1) 12/18/17 06:00 Metamyelocytes # 0.0 K/mm3 12/18/17 06:00 Myelocytes # 0.0 K/mm3 12/18/17 06:00 Promyelocytes # 0.0 K/mm3 12/18/17 06:00 Blast Cells # 0.0 K/mm3 12/18/17 06:00 WBC Morphology Not Reportable 12/18/17 06:00 Hypersegmented Neuts Not Reportable 12/18/17 06:00 Hyposegmented Neuts Not Reportable 12/18/17 06:00 Hypogranular Neuts Not Reportable 12/18/17 06:00 Smudge Cells Not Reportable 12/18/17 06:00 Toxic Granulation Not Reportable 12/18/17 06:00 Toxic Vacuolation Not Reportable 12/18/17 06:00 Dohle Bodies Not Reportable 12/18/17 06:00 Pelger-Huet Anomaly Not Reportable 12/18/17 06:00 Vin Rods Not Reportable 12/18/17 06:00 Platelet Estimate Cons 12/18/17 06:00 Clumped Platelets Not Reportable 12/18/17 06:00 Plt Clumps, EDTA Not Reportable 12/18/17 06:00 Large Platelets Few 12/18/17 06:00 Giant Platelets Not Reportable 12/18/17 06:00 Platelet Satelliting Not Reportable 12/18/17 06:00 Plt Morphology Comment Not Reportable 12/18/17 06:00 RBC Morphology Not Reportable 12/18/17 06:00 Dimorphic RBCs Not Reportable 12/18/17 06:00 Polychromasia Few 12/18/17 06:00 Hypochromasia Not Reportable 12/18/17 06:00 Poikilocytosis 1+ 12/18/17 06:00 Anisocytosis 1+ 12/18/17 06:00 Microcytosis Not Reportable 12/18/17 06:00 Macrocytosis Not Reportable 12/18/17 06:00 Spherocytes Not Reportable 12/18/17 06:00 Pappenheimer Bodies Not Reportable 12/18/17 06:00 Sickle Cells Not Reportable 12/18/17 06:00 Target Cells Not Reportable 12/18/17 06:00 Tear Drop Cells Few 12/18/17 06:00 Ovalocytes Few 12/18/17 06:00 Helmet Cells Not Reportable 12/18/17 06:00 [place] Bodies Not Reportable 12/18/17 06:00 [place] Rings Not Reportable 12/18/17 06:00 [place] Cells Not Reportable 12/18/17 06:00 Bite Cells Not Reportable 12/18/17 06:00 Crenated Cell Not Reportable 12/18/17 06:00 Elliptocytes Few 12/18/17 06:00 Acanthocytes (Spur) Not Reportable 12/18/17 06:00 Rouleaux Not Reportable 12/18/17 06:00 Hemoglobin C Crystals Not Reportable 12/18/17 06:00 Schistocytes Not Reportable 12/18/17 06:00 Malaria parasites Not Reportable 12/18/17 06:00 Charbel Bodies Not Reportable 12/18/17 06:00 Hem Pathologist Commnt No 12/18/17 06:00 Sodium 140 mmol/L (137-145) 12/18/17 06:00 Potassium 5.2 mmol/L (3.6-5.0) H 12/18/17 06:00 Chloride 95.2 mmol/L (98-107) L 12/18/17 06:00 Carbon Dioxide 25 mmol/L (22-30) 12/18/17 06:00 Anion Gap 25 mmol/L 12/18/17 06:00 BUN 72 mg/dL (9-20) H 12/18/17 06:00 Creatinine 11.1 mg/dL (0.8-1.5) H 12/18/17 06:00 Estimated GFR 6 ml/min 12/18/17 06:00 BUN/Creatinine Ratio 6 % 12/18/17 06:00 Glucose 113 mg/dL (75-100) H 12/18/17 06:00 Hemoglobin A1c 5.9 % (4-6) 12/17/17 22:09 Lactic Acid 1.50 mmol/L (0.7-2.0) 12/17/17 21:09 Calcium 9.3 mg/dL (8.4-10.2) 12/18/17 06:00 Total Bilirubin 0.40 mg/dL (0.1-1.2) 12/18/17 06:00 AST 28 units/L (5-40) 12/18/17 06:00 ALT 20 units/L (7-56) 12/18/17 06:00 Alkaline Phosphatase 86 units/L (35-129) 12/18/17 06:00 Troponin T 0.358 ng/mL (0.00-0.029) H* 12/18/17 01:27 NT-Pro-B Natriuret Pep > 76287 pg/mL (0-450) H 12/17/17 16:30 Total Protein 7.7 g/dL (6.3-8.2) 12/18/17 06:00 Albumin 3.9 g/dL (3.9-5) 12/18/17 06:00 Albumin/Globulin Ratio 1.0 % 12/18/17 06:00 Triglycerides 63 mg/dL (2-149) 12/17/17 16:30 Cholesterol 137 mg/dL (50-199) 12/17/17 16:30 LDL Cholesterol Direct 73 mg/dL (50-130) 12/17/17 16:30 HDL Cholesterol 58 mg/dL (40-59) 12/17/17 16:30 Cholesterol/HDL Ratio 2.36 % 12/17/17 16:30
[2017-12-19] MEDS: SODIUM CHLORIDE FLUSH SYRINGE 10 ML IV SCH ×2 (10:09→22:23)
--- NOTE | 2017-12-19 10:28 | Progress Note ---
Assessment and Plan Impression: ESRD Acc HTN HYperkalemia noncompliance with hd anasarca anemia in esrd Plan: Dialysis q TTS and prn uf as tolerated with hd strict i/os daily lytes stress compliance with hd and renal diet epogen once bp controlled Subjective Date of service: 12/19/17 Principal diagnosis: esrd Interval history: resting well in bed today Objective - Exam Narrative Exam: General appearance: Present: mild distress, well-nourished - EENT Eyes: Present: PERRL ENT: hearing intact, clear oral mucosa - Neck Neck: Present: supple, normal ROM - Respiratory Respiratory effort: normal Respiratory: bilateral: CTA, rales - Cardiovascular Heart rate: 96 Rhythm: regular Heart Sounds: Present: S1 & S2. Absent: rub, click - Extremities Extremities: no ischemia, pulses intact, pulses symmetrical, abnormal ( significant swelling of both lower extremities) Extremity abnormal: edema (4+ pitting edema both lower extremities), other (4+ pitting edema both lower extremities) Peripheral Pulses: within normal limits - Abdominal General gastrointestinal: Present: soft, non-tender, non-distended, normal bowel sounds Male genitourinary: Present: normal - Rectal Rectal Exam: deferred - Integumentary Integumentary: Present: clear, warm, dry - Musculoskeletal Musculoskeletal: gait normal, strength equal bilaterally - Psychiatric Psychiatric: appropriate mood/affect, intact judgment & insight - Neurologic Neurologic: CNII-XII intact, moves all extremities - Allied Health Allied health notes reviewed: nursing, case management - Vital Signs Vital signs: Vital Signs - 12hr 12/18/17 12/19/17 12/19/17 23:51 00:20 04:55 Temperature 97.7 F 98.3 F 98.7 F Pulse Rate 92 H 96 H Respiratory 18 16 Rate Blood Pressure 186/103 169/86 Blood Pressure [Right] O2 Sat by Pulse 94 93 Oximetry 12/19/17 12/19/17 05:00 07:59 Temperature 98.6 F Pulse Rate 90 89 Respiratory 20 Rate Blood Pressure Blood Pressure 174/101 [Right] O2 Sat by Pulse 97 Oximetry - Lab 12/18/17 06:00 12/18/17 06:00 Most recent lab results Calcium 9.3 mg/dL (8.4-10.2) 12/18/17 06:00
[2017-12-19 10:55] LABS: Calcium 8.7 mg/dL (8.4-10.2)
[2017-12-19 11:10] LABS: Alanine Aminotransferase 18 units/L (7-56); Albumin 3.3 g/dL (3.9-5)
[2017-12-19 11:12] LABS: Bilirubin,Direct < 0.2 mg/dL (0-0.2)
[2017-12-19] MEDS: CATAPRES PO SCH ×2 (11:50→22:19)
[2017-12-19] MEDS: MORPHINE IV PRN (20:46)
[2017-12-20 06:44] LABS: Calcium 8.3 mg/dL (8.4-10.2)
--- NOTE | 2017-12-20 08:38 | Progress Note ---
Assessment and Plan Assessment and plan: 47-year-old black male with history of hypertension end-stage renal disease noncompliant with dialysis comes in for increasing shortness of breath increasing distention of the abdomen and swelling of both the lower extremities. Patient says that he had dialysis yesterday. He has a history of end-stage renal disease since 2012. Went off dialysis from the beginning of 2015 through December 2016. Resume hemodialysis on [facility] but he stays near [facility]. He wants to go to the dialysis center close by. Has been noncompliant because of transportation issues. Patient has been having increasing shortness of breath increasing abdominal girth and bilateral pedal edema. Shortness of breath on minimal exertion. Excessive fluid intake. Patient is on dialysis Monday and Monday. Had dialysis yesterday. Hyperkalemaia ESRD HTN urgency- STILL UNCONTROLLED [place] Type 2 CO secondary to ESRD Anemia Moderate Ascities Acute on chronic Diastolic Heart failure Plan Supportive care, CLINICALLY IMPROVING Awaiting chair time for discharge Dialysis per financial representative Nephrology consult noted Restarted Clonidine, Hepatitis panel pending Increased hydralazine to 100mg q8hr Case management Reviewed last visit- cardiology deferred to Nephro for aggressive diuresis, no new cardiac concern BP control Repeat Abdominal imagining to eval ascetics in a few days outpatient DVT/GI prophy Plan discussed in detail with the patient Discharge once outpatient dialysis set up Hospitalist Physical - Constitutional Vitals: Temp Pulse Resp BP Pulse Ox 98.7 F 83 20 148/74 95 12/20/17 06:05 12/20/17 06:05 12/20/17 06:05 12/20/17 06:05 12/20/17 06:05 General appearance: Present: mild distress, well-nourished Results - Labs CBC & Chem 7: 12/18/17 06:00 12/20/17 05:51 Labs: Laboratory Last Values WBC 7.3 K/mm3 (4.5-11.0) 12/18/17 06:00 RBC 3.03 M/mm3 (3.65-5.03) L 12/18/17 06:00 Hgb 8.5 gm/dl (11.8-15.2) L 12/18/17 06:00 Hct 26.1 % (35.5-45.6) L 12/18/17 06:00 MCV 86 fl (84-94) 12/18/17 06:00 MCH 28 pg (28-32) 12/18/17 06:00 MCHC 33 % (32-34) 12/18/17 06:00 RDW 18.9 % (13.2-15.2) H 12/18/17 06:00 Plt Count 214 K/mm3 (140-440) 12/18/17 06:00 Lymph % (Auto) [place] 12/17/17 16:30 [place] % (Auto) [place] 12/18/17 06:00 Eos % (Auto) [place] 12/17/17 16:30 Baso % (Auto) [place] 12/17/17 16:30 Lymph # [place] 12/17/17 16:30 [place] # [place] 12/17/17 16:30 Eos # [place] 12/17/17 16:30 Baso # [place] 12/17/17 16:30 Add Manual Diff Complete 12/18/17 06:00 Total Counted 100 12/18/17 06:00 Seg Neutrophils % [place] 12/17/17 16:30 Seg Neuts % (Manual) 64.0 % (40.0-70.0) 12/18/17 06:00 Band Neutrophils % 0 % 12/18/17 06:00 Lymphocytes % (Manual) 11.0 % (13.4-35.0) L 12/18/17 06:00 Reactive Lymphs % (Man) 0 % 12/18/17 06:00 Monocytes % (Manual) 9.0 % (0.0-7.3) H 12/18/17 06:00 Eosinophils % (Manual) 14.0 % (0.0-4.3) H 12/18/17 06:00 Basophils % (Manual) 2.0 % (0.0-1.8) H 12/18/17 06:00 Metamyelocytes % 0 % 12/18/17 06:00 Myelocytes % 0 % 12/18/17 06:00 Promyelocytes % 0 % 12/18/17 06:00 Blast Cells % 0 % 12/18/17 06:00 Nucleated RBC % Not Reportable 12/18/17 06:00 Seg Neutrophils # [place] 12/17/17 16:30 Seg Neutrophils # Man 4.7 K/mm3 (1.8-7.7) 12/18/17 06:00 Band Neutrophils # 0.0 K/mm3 12/18/17 06:00 Lymphocytes # (Manual) 0.8 K/mm3 (1.2-5.4) L 12/18/17 06:00 Abs React Lymphs (Man) 0.0 K/mm3 12/18/17 06:00 Monocytes # (Manual) 0.7 K/mm3 (0.0-0.8) 12/18/17 06:00 Eosinophils # (Manual) 1.0 K/mm3 (0.0-0.4) H 12/18/17 06:00 Basophils # (Manual) 0.1 K/mm3 (0.0-0.1) 12/18/17 06:00 Metamyelocytes # 0.0 K/mm3 12/18/17 06:00 Myelocytes # 0.0 K/mm3 12/18/17 06:00 Promyelocytes # 0.0 K/mm3 12/18/17 06:00 Blast Cells # 0.0 K/mm3 12/18/17 06:00 WBC Morphology Not Reportable 12/18/17 06:00 Hypersegmented Neuts Not Reportable 12/18/17 06:00 Hyposegmented Neuts Not Reportable 12/18/17 06:00 Hypogranular Neuts Not Reportable 12/18/17 06:00 Smudge Cells Not Reportable 12/18/17 06:00 Toxic Granulation Not Reportable 12/18/17 06:00 Toxic Vacuolation Not Reportable 12/18/17 06:00 Dohle Bodies Not Reportable 12/18/17 06:00 Pelger-Huet Anomaly Not Reportable 12/18/17 06:00 Vin Rods Not Reportable 12/18/17 06:00 Platelet Estimate Cons 12/18/17 06:00 Clumped Platelets Not Reportable 12/18/17 06:00 Plt Clumps, EDTA Not Reportable 12/18/17 06:00 Large Platelets Few 12/18/17 06:00 Giant Platelets Not Reportable 12/18/17 06:00 Platelet Satelliting Not Reportable 12/18/17 06:00 Plt Morphology Comment Not Reportable 12/18/17 06:00 RBC Morphology Not Reportable 12/18/17 06:00 Dimorphic RBCs Not Reportable 12/18/17 06:00 Polychromasia Few 12/18/17 06:00 Hypochromasia Not Reportable 12/18/17 06:00 Poikilocytosis 1+ 12/18/17 06:00 Anisocytosis 1+ 12/18/17 06:00 Microcytosis Not Reportable 12/18/17 06:00 Macrocytosis Not Reportable 12/18/17 06:00 Spherocytes Not Reportable 12/18/17 06:00 Pappenheimer Bodies Not Reportable 12/18/17 06:00 Sickle Cells Not Reportable 12/18/17 06:00 Target Cells Not Reportable 12/18/17 06:00 Tear Drop Cells Few 12/18/17 06:00 Ovalocytes Few 12/18/17 06:00 Helmet Cells Not Reportable 12/18/17 06:00 [place] Bodies Not Reportable 12/18/17 06:00 [place] Rings Not Reportable 12/18/17 06:00 [place] Cells Not Reportable 12/18/17 06:00 Bite Cells Not Reportable 12/18/17 06:00 Crenated Cell Not Reportable 12/18/17 06:00 Elliptocytes Few 12/18/17 06:00 Acanthocytes (Spur) Not Reportable 12/18/17 06:00 Rouleaux Not Reportable 12/18/17 06:00 Hemoglobin C Crystals Not Reportable 12/18/17 06:00 Schistocytes Not Reportable 12/18/17 06:00 Malaria parasites Not Reportable 12/18/17 06:00 [place] Bodies Not Reportable 12/18/17 06:00 Hem Pathologist Commnt No 12/18/17 06:00 Sodium 138 mmol/L (137-145) 12/20/17 05:51 Potassium 3.9 mmol/L (3.6-5.0) 12/20/17 05:51 Chloride 96.5 mmol/L (98-107) L 12/20/17 05:51 Carbon Dioxide 29 mmol/L (22-30) 12/20/17 05:51 Anion Gap 16 mmol/L 12/20/17 05:51 BUN 31 mg/dL (9-20) H 12/20/17 05:51 Creatinine 6.7 mg/dL (0.8-1.5) H 12/20/17 05:51 Estimated GFR 11 ml/min 12/20/17 05:51 BUN/Creatinine Ratio 5 % 12/20/17 05:51 Glucose 116 mg/dL (75-100) H 12/20/17 05:51 Hemoglobin A1c 5.9 % (4-6) 12/17/17 22:09 Lactic Acid 1.50 mmol/L (0.7-2.0) 12/17/17 21:09 Calcium 8.3 mg/dL (8.4-10.2) L 12/20/17 05:51 Total Bilirubin 0.40 mg/dL (0.1-1.2) 12/19/17 10:24 Direct Bilirubin < 0.2 mg/dL (0-0.2) 12/19/17 10:24 Indirect Bilirubin 0.2 mg/dL 12/19/17 10:24 AST 21 units/L (5-40) 12/19/17 10:24 ALT 18 units/L (7-56) 12/19/17 10:24 Alkaline Phosphatase 81 units/L (35-129) 12/19/17 10:24 Troponin T 0.358 ng/mL (0.00-0.029) H* 12/18/17 01:27 NT-Pro-B Natriuret Pep > 35998 pg/mL (0-450) H 12/17/17 16:30 Total Protein 6.5 g/dL (6.3-8.2) 12/19/17 10:24 Albumin 3.3 g/dL (3.9-5) L 12/19/17 10:24 Albumin/Globulin Ratio 1.0 % 12/19/17 10:24 Triglycerides 63 mg/dL (2-149) 12/17/17 16:30 Cholesterol 137 mg/dL (50-199) 12/17/17 16:30 LDL Cholesterol Direct 73 mg/dL (50-130) 12/17/17 16:30 HDL Cholesterol 58 mg/dL (40-59) 12/17/17 16:30 Cholesterol/HDL Ratio 2.36 % 12/17/17 16:30
--- NOTE | 2017-12-20 09:43 | Progress Note ---
Assessment and Plan Impression: ESRD Acc HTN HYperkalemia noncompliance with hd anasarca anemia in esrd Plan: Dialysis q TTS and prn uf as tolerated with hd strict i/os daily lytes stress compliance with hd and renal diet epogen once bp controlled recommend dc patient home, he can transfer clinic as outpatient, it will be difficult to find new hd clinic due to history of noncomplaince Subjective Date of service: 12/20/17 Principal diagnosis: esrd Interval history: resting well in bed today Objective - Exam Narrative Exam: General appearance: Present: mild distress, well-nourished - EENT Eyes: Present: PERRL ENT: hearing intact, clear oral mucosa - Neck Neck: Present: supple, normal ROM - Respiratory Respiratory effort: normal Respiratory: bilateral: CTA, rales - Cardiovascular Heart rate: 96 Rhythm: regular Heart Sounds: Present: S1 & S2. Absent: rub, click - Extremities Extremities: no ischemia, pulses intact, pulses symmetrical, abnormal ( significant swelling of both lower extremities) Extremity abnormal: edema (4+ pitting edema both lower extremities), other (4+ pitting edema both lower extremities) Peripheral Pulses: within normal limits - Abdominal General gastrointestinal: Present: soft, non-tender, non-distended, normal bowel sounds Male genitourinary: Present: normal - Rectal Rectal Exam: deferred - Integumentary Integumentary: Present: clear, warm, dry - Musculoskeletal Musculoskeletal: gait normal, strength equal bilaterally - Psychiatric Psychiatric: appropriate mood/affect, intact judgment & insight - Neurologic Neurologic: CNII-XII intact, moves all extremities - Allied Health Allied health notes reviewed: nursing, case management - Vital Signs Vital signs: Vital Signs - 12hr 12/19/17 12/19/17 12/19/17 22:19 22:30 23:24 Temperature 98.6 F Pulse Rate 85 85 89 Respiratory 20 Rate Blood Pressure 179/101 179/101 177/101 O2 Sat by Pulse 100 Oximetry 12/20/17 06:05 Temperature 98.7 F Pulse Rate 83 Respiratory 20 Rate Blood Pressure 148/74 O2 Sat by Pulse 95 Oximetry - Lab 12/18/17 06:00 12/20/17 05:51 Most recent lab results Calcium 8.3 mg/dL (8.4-10.2) L 12/20/17 05:51
[2017-12-20] MEDS: APRESOLINE PO SCH ×2 (09:53→10:04)
[2017-12-20] MEDS: NORMODYNE PO SCH ×2 (09:54→10:04)
[2017-12-20] MEDS: COZAAR PO SCH (09:55)
[2017-12-20] MEDS: PEPCID PO SCH (09:55)
[2017-12-20] MEDS: CATAPRES PO SCH (09:56)
[2017-12-20] MEDS: LASIX IV SCH (09:58)
[2017-12-20] MEDS: HEPARIN SUB-Q SCH (09:59)
[2017-12-20] MEDS: SODIUM CHLORIDE FLUSH SYRINGE 10 ML IV SCH (09:59)
[2017-12-20] MEDS ORDERED: LEXAPRO PO SCH (10:00)
[2017-12-20 10:40] LABS: Hepatitis A Antibody IgM Non-Reactive (NonReactive); Hepatitis B Core IgM Non-Reactive (NonReactive); Hepatitis B Surface Antigen Non-Reactive (Negative); Hepatitis C Virus Antibody Non-Reactive (NonReactive)
--- NOTE | 2017-12-20 10:53 | Discharge Summary ---
Providers - Providers Date of Admission: 12/17/17 22:08 Attending physician: ANALISA VIVEROS MD 12/17/17 Consult to Case Management [CONS] Routine Services Needed at Discharge: Double Cut Sawyer Other Notified:: cm notified Comment:: to arrange for dialysis nursing center tutor RadhaAlbinoMia-- GIANNIALYSSA 12/17/17 22:08 Consult to Physician [CONS] Urgent Comment: Consulting Provider: [facility] RYAN Physician Instructions: Reason For Exam: ESRD Primary care physician: GENERAL FOREMAN Hospitalization Reason for admission: esrd Condition: Stable Hospital course: 47-year-old black male with history of hypertension end-stage renal disease noncompliant with dialysis comes in for increasing shortness of breath increasing distention of the abdomen and swelling of both the lower extremities. Patient says that he had dialysis yesterday. He has a history of end-stage renal disease since 2012. Went off dialysis from the beginning of 2015 through December 2016. Resume hemodialysis on [facility] but he stays near [facility]. He wants to go to the dialysis center close by. Has been noncompliant because of transportation issues. Patient has been having increasing shortness of breath increasing abdominal girth and bilateral pedal edema. Shortness of breath on minimal exertion. Excessive fluid intake. Patient is on dialysis Monday and Monday. Had dialysis yesterday. Patient was dialyzed aggressively while in the hospital. Attempt to obtain outpatient change in dialysis center was not visible due to patient's noncompliance status. This was also echoed by 3d artist quinton better chest will be obtained by patient doing this transfer locally with his local clinic. His clinically stable at this point for discharge is requested for bilateral peels which advised him to follow up with his primary doctor on a pain specialist will be given a few days of Percocet. Pain management consult was provided to the patient the use of opiate medication was also discussed in detail. Education as well just had an extensive time was spent about 30 minutes of counseling noncompliance. Hyperkalemaia ESRD HTN urgency- STILL UNCONTROLLED [place]ascar Type 2 RI secondary to ESRD Anemia Moderate Ascities Acute on chronic Diastolic Heart failure Disposition: TO HOME OR SELFCARE Time spent for discharge: 35 mins Core Measure Documentation - Palliative Care Palliative Care/ Comfort Measures: Not Applicable - Core Measures Any of the following diagnoses?: none Exam - Physical Exam Narrative exam: VITAL SIGNS: Reviewed. GENERAL: The patient appeared well nourished and normally developed. Vital signs as documented. HEAD: No signs of head trauma. EYES: Pupils are equal. Extraocular motions intact. EARS: Hearing grossly intact. MOUTH: Oropharynx is normal. NECK: No adenopathy, no JVD. CHEST: Chest with clear breath sounds bilaterally. No wheezes, rales, or rhonchi. CARDIAC: Regular rate and rhythm. S1 and S2, without murmurs, gallops, or rubs. VASCULAR: +1 Edema. Peripheral pulses normal and equal in all extremities. ABDOMEN: Soft, without detectable tenderness. No sign of distention. No rebound or guarding, and no masses palpated. Bowel Sounds normal. MUSCULOSKELETAL: Good range of motion of all major joints. Extremities without clubbing, cyanosis. generalized anascar. +1 pitting edema NEUROLOGIC EXAM: Alert and oriented x 3. No focal sensory or strength deficits. Speech normal. Follows commands. PSYCHIATRIC: Mood normal. SKIN: No rash or lesions. - Constitutional Vitals: Temp Pulse Resp BP Pulse Ox 98.7 F 83 20 158/87 95 12/20/17 06:05 12/20/17 06:05 12/20/17 06:05 12/20/17 09:56 12/20/17 06:05 Plan Activity: advance as tolerated, fall precautions Diet: low salt, renal Special Instructions: record daily BP diary Follow up with: PRIMARY MD ANA LUISA [Primary Care Provider] - 3-5 Days JESSIE PERRY MD [Staff Physician] - 7 Days Prescriptions: hydrALAZINE [Apresoline TAB] 100 mg PO Q8HR #90 tab Losartan [Cozaar] 100 mg PO QDAY #30 tablet oxyCODONE /ACETAMINOPHEN [Percocet 5/325 mg] 1 tab PO Q6H PRN #14 tablet PRN Reason: Pain, Moderate (4-6)
[2017-12-20 12:09] VITALS: BP 153/83
== END 2017-12-20 12:30 | disposition home or self-care (01) | DRG 280 ==
LOC: ED 16:11 → 4A 22:08 → 3A 12-19 18:24
PROVIDERS: ADMIT Internal Medicine; ATTEND Internal Medicine
PROC: 5A1D70Z Performance of Urinary Filtration, Intermittent, Less than 6 Hours Per Day (ICD-10-PCS; principal; 2017-12-18)
PROC: 5A1D70Z Performance of Urinary Filtration, Intermittent, Less than 6 Hours Per Day (ICD-10-PCS; 2017-12-19)
DX: I21.A1 Myocardial infarction type 2 (principal); I50.33 Acute on chronic diastolic (congestive) heart failure; N18.6 End stage renal disease; N17.9 Acute kidney failure, unspecified; I16.1 Hypertensive emergency; I13.0 Hypertensive heart and chronic kidney disease with heart failure and stage 1 through stage 4 chronic kidney disease, or unspecified chronic kidney disease; R18.8 Other ascites; F17.200 Nicotine dependence, unspecified, uncomplicated; D63.1 Anemia in chronic kidney disease; E87.5 Hyperkalemia; Z91.15 Patient's noncompliance with renal dialysis; Z99.2 Dependence on renal dialysis; Z82.49 Family history of ischemic heart disease and other diseases of the circulatory system; Z95.828 Presence of other vascular implants and grafts
CPT/HCPCS: 36415; 71045; 74176; 80048; 80053; 80061; 80074; 82140; 83036; 83880; 84484; 84520; 85007; 85025; 93005; 93010; 96374; 96375; J0360; J0610; J1644; J1940; J2270; J7030

== ENCOUNTER 2018-01-15 16:12 | Inpatient (IN) | payer MEDICARE ==
[2018-01-15] MEDS ORDERED: TORADOL IV ONE (16:31)
[2018-01-15] MEDS ORDERED: DILAUDID IV ONE (16:31)
[2018-01-15] MEDS ORDERED: ZOFRAN IV ONE (16:31)
[2018-01-15] MEDS ORDERED: NORMODYNE IV ONE (16:36)
--- NOTE | 2018-01-15 16:40 | Emergency Department Report ---
ED General Adult HPI - General Chief complaint: Weakness Stated complaint: PAIN ALL OVER BODY Time Seen by Provider: 01/15/18 16:23 Source: patient, EMS Mode of arrival: Stretcher Limitations: No Limitations - History of Present Illness Initial comments: Patient is a 47-year-old male with past history of end-stage renal disease and hypertension who has a history of also been noncompliant occasionally with his dialysis who states he's had shortness of breath cough is nonproductive and generalized fatigue for the past 2 days. Patient states he also feels a pressure in his groin is had some urinary frequency. Patient's Lasix dose is been increased recently. Patient states he has nausea and vomiting has well but denies diarrhea. History is limited secondary to the patient vomiting during the initial assessment. Patient's last dialysis was 2 days ago he's not due for dialysis until tomorrow -: days(s) (2) - Related Data Home Medications Medication Instructions Recorded Confirmed Last Taken Furosemide [Lasix] 20 mg PO BID 10/10/17 12/18/17 Unknown Escitalopram [Lexapro] 10 mg PO DAILY 12/18/17 12/18/17 Unknown cloNIDine [Catapres] 0.2 mg PO BID 12/18/17 12/18/17 Unknown Previous Rx's Medication Instructions Recorded Last Taken Type Labetalol [Normodyne TAB] 100 mg PO Q8HR tablet 12/20/17 Unknown Rx Losartan [Cozaar] 100 mg PO QDAY #30 tablet 12/20/17 Unknown Rx hydrALAZINE [Apresoline TAB] 100 mg PO Q8HR #90 tab 12/20/17 Unknown Rx oxyCODONE /ACETAMINOPHEN [Percocet 1 tab PO Q6H PRN #14 tablet 12/20/17 Unknown Rx 5/325 mg] Allergies Allergy/AdvReac Type Severity Reaction Status Date / Time No Known Allergies Allergy Verified 01/30/17 20:04 ED Review of Systems ROS: Stated complaint: PAIN ALL OVER BODY Other details as noted in HPI Comment: Unobtainable due to pts medical conditions ED Past Medical Hx - Past Medical History Previous Medical History?: Yes Hx Hypertension: Yes Hx Congestive Heart Failure: No Hx Diabetes: No Hx Renal Disease: Yes Hx Asthma: No Hx COPD: No Hx HIV: No - Surgical History Past Surgical History?: Yes Additional Surgical History: dialysis access left arm - Social History Smoking Status: Unknown if ever smoked Substance Use Type: None - Medications Home Medications: Home Medications Medication Instructions Recorded Confirmed Last Taken Type Furosemide [Lasix] 20 mg PO BID 10/10/17 12/18/17 Unknown History Escitalopram [Lexapro] 10 mg PO DAILY 12/18/17 12/18/17 Unknown History cloNIDine [Catapres] 0.2 mg PO BID 12/18/17 12/18/17 Unknown History Labetalol [Normodyne TAB] 100 mg PO Q8HR tablet 12/20/17 Unknown Rx Losartan [Cozaar] 100 mg PO QDAY #30 tablet 12/20/17 Unknown Rx hydrALAZINE [Apresoline TAB] 100 mg PO Q8HR #90 tab 12/20/17 Unknown Rx oxyCODONE /ACETAMINOPHEN [Percocet 1 tab PO Q6H PRN #14 tablet 12/20/17 Unknown Rx 5/325 mg] ED Physical Exam - General Limitations: No Limitations General appearance: alert, in distress - Head Head exam: Present: atraumatic, normocephalic - Eye Eye exam: Present: normal appearance - ENT ENT exam: Present: mucous membranes moist - Neck Neck exam: Present: normal inspection - Respiratory Respiratory exam: Present: normal lung sounds bilaterally, rhonchi. Absent: respiratory distress, wheezes, rales - Cardiovascular Cardiovascular Exam: Present: regular rate, normal rhythm. Absent: systolic murmur, diastolic murmur, rubs, gallop - GI/Abdominal GI/Abdominal exam: Present: soft, distended (edematous skin), tenderness ( generalized), rigid (firm abd secondary to edema), normal bowel sounds. Absent : guarding, rebound, hypoactive bowel sounds, pulsatile mass - Rectal Rectal exam: Present: deferred - Extremities Exam Extremities exam: Present: normal inspection - Back Exam Back exam: Present: normal inspection - Neurological Exam Neurological exam: Present: alert, oriented X3 - Psychiatric Psychiatric exam: Present: normal affect, normal mood - Skin Skin exam: Present: warm, dry, intact, normal color. Absent: rash ED Course Vital Signs 01/15/18 01/15/18 01/15/18 16:20 17:13 17:55 Temperature 100.0 F H Pulse Rate 78 58 L Respiratory 22 16 16 Rate Blood Pressure 198/98 Blood Pressure 199/121 [Right] O2 Sat by Pulse 97 96 96 Oximetry ED Medical Decision Making - Lab Data Result diagrams: 01/15/18 17:11 01/15/18 17:11 [facility] [address] [place] [address] Cat Scan Report Signed Patient: RENALDO WAYNE MR#: [id number] : 1970 Acct:[id number] Age/Sex: 47 / M ADM Date: 01/15/18 Loc: ED Attending Dr: Lab Results 01/15/18 01/15/18 01/15/18 Range/Units 17:11 17:11 17:38 WBC 5.8 (4.5-11.0) K/mm3 RBC 2.82 L (3.65-5.03) M/mm3 Hgb 7.8 L (11.8-15.2) gm/dl Hct 24.8 L (35.5-45.6) % MCV 88 (84-94) fl MCH 28 (28-32) pg MCHC 32 (32-34) % RDW 20.2 H (13.2-15.2) % Plt Count 180 (140-440) K/mm3 [place] % (Auto) Vine Pruner Sodium 136 L (137-145) mmol/L Potassium 6.9 H* (3.6-5.0) mmol/L Chloride 92.9 L (98-107) mmol/L Carbon Dioxide 19 L (22-30) mmol/L Anion Gap 31 mmol/L BUN 109 H (9-20) mg/dL Creatinine 15.3 H (0.8-1.5) mg/dL Estimated GFR 4 ml/min BUN/Creatinine Ratio 7 % Glucose 92 (75-100) mg/dL Calcium 9.0 (8.4-10.2) mg/dL Total Bilirubin 0.50 (0.1-1.2) mg/dL AST 19 (5-40) units/L ALT 16 (7-56) units/L Alkaline Phosphatase 73 (35-129) units/L NT-Pro-B Natriuret Pep > 37644 H (0-450) pg/mL Total Protein 7.2 (6.3-8.2) g/dL Albumin 3.6 L (3.9-5) g/dL Albumin/Globulin Ratio 1.0 % Urine Color Yellow (Yellow) Urine Turbidity Clear (Clear) Urine pH 7.0 (5.0-7.0) Ur Specific [place] 1.005 (1.003-1.030) Urine Protein 300 mg/dl (Negative) mg/dL Urine Glucose (UA) 500 (Negative) mg/dL Urine Ketones Negative (Negative) mg/dL Urine Blood Moderate A (Negative) Urine Nitrite Negative (Negative) Ur Reducing Substances Not Reportable Urine Bilirubin Negative (Negative) Urine Ictotest Not Reportable Urine Urobilinogen < 2.0 (<2.0) mg/dL Ur Leukocyte Esterase Negative (Negative) Urine WBC (Auto) 1.0 (0.0-6.0) /HPF Urine RBC (Auto) 71.0 (0.0-6.0) /HPF Urine Mucus Few /HPF - Radiology Data interpreted by me: Chest x-ray showed vascular congestion and cardiomegaly but no obvious infiltrate [facility] [address] [place] [address] Cat Scan Report Signed Patient: RENALDO WAYNE MR#: [id number] : 1970 Acct:[id number] Age/Sex: 47 / M ADM Date: 01/15/18 Loc: ED Attending Dr: Ordering Physician: HALLEY VIVAS MD Date of Service: 01/15/18 Procedure(s): CT abdomen pelvis wo con Accession Number(s): [id number] cc: HALLEY VIVAS MD FINAL REPORT PROCEDURE: CT abdomen and pelvis without contrast. TECHNIQUE: Computerized axial tomography of the abdomen and pelvis was performed without intravenous contrast. This study is performed without intravascular contrast material and its sensitivity for abdominal and pelvic pathology, including neoplasms, inflammation, abscess, free fluid, thrombosis, arterial dissection and infarction, is reduced compared with a contrast enhanced study. HISTORY: Abdominal pain. COMPARISON: CT abdomen and pelvis 12/17/2017. FINDINGS: The lung bases are grossly clear. There is a tiny right pleural effusion. The heart size is mildly enlarged. The liver, pancreas and spleen are grossly normal. I am not certain if the gallbladder is present. There is no biliary dilatation. The adrenal glands are not enlarged. There are multiple rounded masses in both kidneys of various attenuations. This is consistent with polycystic kidney disease. The abdominal aorta has a normal caliber. There is no retroperitoneal adenopathy. There is a moderate amount of ascites in the abdomen and pelvis. The unopacified gastrointestinal tract is unremarkable. The appendix is not identified. The bladder, seminal vesicles and prostate appear normal. There is a large right inguinal canal hernia containing ascitic fluid. There is lots of edema in the subcutaneous fat. There is bilateral spondylolysis of L4. There is grade 1 spondylolisthesis at L4-5 with severe disc space narrowing. The regional skeleton may be denser than normal suggesting renal osteodystrophy. IMPRESSION: Moderate amount of ascites. Tiny right pleural effusion. Polycystic kidney disease. Large right inguinal canal hernia containing ascites. Extensive subcutaneous edema. Transcribed By: [facility] Dictated By: HOLLIS BARRAGAN MD Electronically Authenticated By: HOLLIS BARRAGAN MD Signed Date/Time: 01/15/181817 - Medical Decision Making Patient is a 47-year-old [place] male who is presenting with several issues. Patient is fluid overloaded with anasarca and small vessel congestion on chest x -ray. Patient will need to be admitted for dialysis. Patient also has elevated potassium patient was started on Kayexalate sodium bicarbonate and insulin D50. Patient also does have a very low-grade temp. Patient will have blood cultures drawn. Patient is not meeting sepsis criteria at this time. No definitive source of infection has been found here in the emergency department. Patient does have risk factors for bacteremia secondary to his end-stage renal disease on dialysis. Patient will be admitted to the hospitalist service under Dr. Santana at this time. Critical Care Time: Yes (30) Critical care attestation.: If time is entered above; I have spent that time in minutes in the direct care of this critically ill patient, excluding procedure time. ED Disposition Clinical Impression: ESRD (end stage renal disease), Anasarca, Hyperkalemia, Hematuria, PKD ( polycystic kidney disease), Shortness of breath Disposition: OP ADMIT IP TO THIS HOSP Is pt being admited?: Yes Does the pt Need Aspirin: No Condition: Poor
[2018-01-15 17:36] LABS: Hematocrit 24.8 % (35.5-45.6); Hemoglobin 7.8 gm/dl (11.8-15.2); Mean Corpuscular HGB Conc 32 % (32-34); Mean Corpuscular Hemoglobin 28 pg (28-32); Mean Corpuscular Volume 88 fl (84-94); Platelet Count 180 K/mm3 (140-440); Red Blood Count 2.82 M/mm3 (3.65-5.03)
[2018-01-15 17:43] LABS: Red Cell Distribution Width 20.2 % (13.2-15.2)
[2018-01-15 17:54] LABS: Alanine Aminotransferase 16 units/L (7-56); Albumin 3.6 g/dL (3.9-5); BUN/Creatinine Ratio 7; Blood Urea Nitrogen 109 mg/dL (9-20); Hemolysis Index 41
[2018-01-15 18:15] LABS: Mucus,Urine FEW /HPF
[2018-01-15 18:16] LABS: Bilirubin,Urine Negative (Negative); Color,Urine Yellow (Yellow)
[2018-01-15 18:17] LABS: Protein,Urine 300 mg/dL mg/dL (Negative); Urobilinogen,Urine < 2.0 mg/dL (<2.0)
[2018-01-15] MEDS ORDERED: HumuLIN R IV ONE (18:17)
[2018-01-15] MEDS ORDERED: D50W (25GM) Syringe IV ONE (18:17)
[2018-01-15] MEDS ORDERED: KIONEX PO ONE (18:18)
[2018-01-15 18:19] LABS: Blood,Urine Moderate (Negative)
--- NOTE | 2018-01-15 18:20 | Cat Scan Report ---
FINAL REPORT PROCEDURE: CT abdomen and pelvis without contrast. TECHNIQUE: Computerized axial tomography of the abdomen and pelvis was performed without intravenous contrast. This study is performed without intravascular contrast material and its sensitivity for abdominal and pelvic pathology, including neoplasms, inflammation, abscess, free fluid, thrombosis, arterial dissection and infarction, is reduced compared with a contrast enhanced study. HISTORY: Abdominal pain. COMPARISON: CT abdomen and pelvis 12/17/2017. FINDINGS: The lung bases are grossly clear. There is a tiny right pleural effusion. The heart size is mildly enlarged. The liver, pancreas and spleen are grossly normal. I am not certain if the gallbladder is present. There is no biliary dilatation. The adrenal glands are not enlarged. There are multiple rounded masses in both kidneys of various attenuations. This is consistent with polycystic kidney disease. The abdominal aorta has a normal caliber. There is no retroperitoneal adenopathy. There is a moderate amount of ascites in the abdomen and pelvis. The unopacified gastrointestinal tract is unremarkable. The appendix is not identified. The bladder, seminal vesicles and prostate appear normal. There is a large right inguinal canal hernia containing ascitic fluid. There is lots of edema in the subcutaneous fat. There is bilateral spondylolysis of L4. There is grade 1 spondylolisthesis at L4-5 with severe disc space narrowing. The regional skeleton may be denser than normal suggesting renal osteodystrophy. IMPRESSION: Moderate amount of ascites. Tiny right pleural effusion. Polycystic kidney disease. Large right inguinal canal hernia containing ascites. Extensive subcutaneous edema.
--- NOTE | 2018-01-15 18:25 | History and Physical Report ---
History of Present Illness Chief complaint: I need dialysis History of present illness: 47 YO Male with ESRD on HD, PCKD, Noncompliance, HTN, Nicotine Dependence presents to ED for evaluation. Pt states that he has experienced shortness of breath and generalized weakness for the past 2 days. Pt also acknowledges nonproductive cough and generalized edema. Pt acknowledges that he has missed dialysis for the past 1 week. Pt denies fever, chills, cp, palpitations, NVD, syncope, trauma, unintentional weight loss, night sweats, skin rash or recent ill contacts. Pt seen and evaluated in ED and found to have ESRD, Acidosis, and SIRS. Pt admitted to medical floor, and treated with empiric antibiotic dose. Past History Past Medical History: hypertension, renal failure Past Surgical History: Other (AV Fistula) Social history: , lives with family, smoking Family history: hypertension Medications and Allergies Allergies Allergy/AdvReac Type Severity Reaction Status Date / Time No Known Allergies Allergy Verified 01/30/17 20:04 Home Medications Medication Instructions Recorded Confirmed Last Taken Type Furosemide [Lasix] 20 mg PO BID 10/10/17 12/18/17 Unknown History Escitalopram [Lexapro] 10 mg PO DAILY 12/18/17 12/18/17 Unknown History cloNIDine [Catapres] 0.2 mg PO BID 12/18/17 12/18/17 Unknown History Labetalol [Normodyne TAB] 100 mg PO Q8HR tablet 12/20/17 Unknown Rx Losartan [Cozaar] 100 mg PO QDAY #30 tablet 12/20/17 Unknown Rx hydrALAZINE [Apresoline TAB] 100 mg PO Q8HR #90 tab 12/20/17 Unknown Rx oxyCODONE /ACETAMINOPHEN [Percocet 1 tab PO Q6H PRN #14 tablet 12/20/17 Unknown Rx 5/325 mg] Active Meds: Active Medications Sodium Bicarbonate 50 meq/ (Sodium Chloride) 1,050 mls @ 0 mls/hr IV DIRECT FOSTER Review of Systems Constitutional: fever, no weight loss, no weight gain, no chills Ears, nose, mouth and throat: no ear pain, no ear discharge, no tinnitis, no decreased hearing, no nose pain Cardiovascular: shortness of breath, no orthopnea, no palpitations, no rapid/ irregular heart beat, no edema Gastrointestinal: no abdominal pain, no nausea, no vomiting, no diarrhea, no constipation Genitourinary Male: no hematuria, no flank pain, no discharge, no urinary frequency, no urinary hesitancy Rectal: no pain, no incontinence, no bleeding Musculoskeletal: no neck stiffness, no neck pain, no shooting arm pain, no arm numbness/tingling, no low back pain, no shooting leg pain Integumentary: no rash, no pruritis, no redness, no sores, no wounds Neurological: no paralysis, no weakness, no parathesias, no numbness, no tingling, no syncope Psychiatric: no memory loss, no change in sleep habits, no sleep disturbances, no insomnia, no hypersomnia, no change in appetite Endocrine: no cold intolerance, no heat intolerance, no polyphagia, no excessive thirst, no polydipsia, no polyuria, no nocturia Hematologic/Lymphatic: no easy bruising, no easy bleeding, no lymphadenopathy, no lymphedema Allergic/Immunologic: no urticaria, no allergic rhinitis, no wheezing, no persistent infections, no anaphylaxis, no angioedema Exam - Constitutional Vitals: Temp Pulse Resp BP Pulse Ox 100.0 F H 58 L 16 199/121 96 01/15/18 16:20 01/15/18 17:13 01/15/18 17:55 01/15/18 17:13 01/15/18 17:55 General appearance: Present: mild distress, well-nourished - EENT Eyes: Present: PERRL ENT: hearing intact, clear oral mucosa - Neck Neck: Present: supple, normal ROM - Respiratory Respiratory effort: normal Respiratory: bilateral: CTA - Cardiovascular Heart Sounds: Present: S1 & S2. Absent: rub, click - Extremities Extremities: pulses symmetrical, No edema Peripheral Pulses: within normal limits - Abdominal General gastrointestinal: Present: soft, non-tender, non-distended, normal bowel sounds Male genitourinary: Present: normal - Integumentary Integumentary: Present: clear, warm, dry - Musculoskeletal Musculoskeletal: gait normal, strength equal bilaterally - Psychiatric Psychiatric: appropriate mood/affect, intact judgment & insight - Neurologic Neurologic: CNII-XII intact, moves all extremities Results - Labs CBC & Chem 7: 01/15/18 17:11 01/15/18 17:11 Labs: Abnormal lab results 01/15/18 01/15/18 01/15/18 Range/Units 17:11 17:11 17:38 RBC 2.82 L (3.65-5.03) M/mm3 Hgb 7.8 L (11.8-15.2) gm/dl Hct 24.8 L (35.5-45.6) % RDW 20.2 H (13.2-15.2) % Sodium 136 L (137-145) mmol/L Potassium 6.9 H* (3.6-5.0) mmol/L Chloride 92.9 L (98-107) mmol/L Carbon Dioxide 19 L (22-30) mmol/L BUN 109 H (9-20) mg/dL Creatinine 15.3 H (0.8-1.5) mg/dL NT-Pro-B Natriuret Pep > 82021 H (0-450) pg/mL Albumin 3.6 L (3.9-5) g/dL Urine Blood Moderate A (Negative) Assessment and Plan - Patient Problems (1) ESRD (end stage renal disease) Current Visit: Yes Status: Acute Plan to address problem: Nephrology consulted for dialysis, renal diet, avoid nephrotoxic agents, Pt counseled regarding noncompliance (2) Acidosis Current Visit: Yes Status: Acute Plan to address problem: Nephrology consulted for dialysis, repeat bmp (3) SIRS (systemic inflammatory response syndrome) Current Visit: Yes Status: Acute Plan to address problem: Empiric antibiotic therpay (4) Hyperkalemia Current Visit: Yes Status: Acute Plan to address problem: kayelelate, urgent dialysis as per renal team (5) PKD (polycystic kidney disease) Current Visit: Yes Status: Chronic Plan to address problem: Chronic, Blood pressure control, Dialysis as per renal team. (6) DVT prophylaxis Current Visit: No Status: Acute Plan to address problem: SCD to BLE while in bed
[2018-01-15] MEDS ORDERED: TYLENOL PO PRN (18:26)
[2018-01-15] MEDS ORDERED: SODIUM CHLORIDE FLUSH SYRINGE 10 ML IV PRN (18:26)
[2018-01-15] MEDS ORDERED: PROVENTIL IH PRN (18:26)
[2018-01-15] MEDS ORDERED: ZOFRAN IV PRN (18:26)
[2018-01-15] MEDS ORDERED: VANCOMYCIN 2,000 MG in NACL 0.9% 500 ML 500 ML IV ONE (18:45)
[2018-01-15 18:55] LABS: Anisocytosis 1+; Large Platelets 1+; Total Cells Counted 100
[2018-01-15 18:56] LABS: Hypochromasia 1+; Platelet Estimate Consistent w Auto; Tear Drop Cells 1+
[2018-01-15] MEDS ORDERED: SODIUM BICARBONATE 50 MEQ in NACL 0.9% 1000 ML 1,000 ML IV SCH (19:00)
[2018-01-15] MEDS ORDERED: VANCOMYCIN/NS 1 GM/250 ML 1 GM/250 ML BAG IV SCH (19:00)
--- NOTE | 2018-01-15 19:15 | XRay Report ---
FINAL REPORT EXAM: XR CHEST 1V AP HISTORY: dyspnea TECHNIQUE: Chest single AP PRIORS: Comparison is December 17, 2017 FINDINGS: Cardiac silhouette is prominent size. There is right superior mediastinal and hilar prominence which appears increased from prior exam no additional interval changes appreciated. No pleural effusion identified. Pulmonary vasculature is unremarkable. IMPRESSION: Superior mediastinal and right hilar prominence increased from prior exam. Consider followup CT for further evaluation
[2018-01-15] MEDS ORDERED: APRESOLINE IV ONE (20:34)
[2018-01-15] MEDS ORDERED: CATAPRES ONE (22:19)
[2018-01-15] MEDS ORDERED: NORMODYNE ONE (22:19)
[2018-01-15] MEDS: CATAPRES PO SCH (22:22)
[2018-01-15] MEDS: NORMODYNE PO SCH (22:22)
[2018-01-16] MEDS: PERCOCET 5/325 PO PRN ×2 (01:07→19:03)
[2018-01-16] MEDS: SODIUM CHLORIDE FLUSH SYRINGE 10 ML IV SCH ×3 (01:08→21:02)
[2018-01-16] MEDS: APRESOLINE PO SCH ×4 (01:08→21:02)
[2018-01-16] MEDS ORDERED: KIONEX PO ONE (06:11)
[2018-01-16] MEDS ORDERED: CALCIUM GLUCONATE 2,000 MG in NACL 0.9% 100 ML IV ONE (06:11)
[2018-01-16] MEDS ORDERED: APRESOLINE IV PRN (06:12)
[2018-01-16] MEDS ORDERED: LASIX IV ONE (06:37)
[2018-01-16] MEDS ORDERED: CATAPRES PO ONE (06:39)
[2018-01-16] MEDS: NORMODYNE PO SCH ×3 (08:01→22:48)
[2018-01-16 08:55] LABS: Calcium 9.1 mg/dL (8.4-10.2)
[2018-01-16] MEDS ORDERED: COZAAR PO SCH (10:00)
[2018-01-16] MEDS ORDERED: LEXAPRO PO SCH (10:00)
[2018-01-16] MEDS: CATAPRES PO SCH ×2 (10:07→21:02)
--- NOTE | 2018-01-16 10:30 | Progress Note ---
Assessment and Plan (1) ESRD (end stage renal disease) Current Visit: Yes Status: Acute Plan to address problem: Nephrology consulted for dialysis, renal diet, avoid nephrotoxic agents, Pt counseled regarding noncompliance (2) Acidosis Current Visit: Yes Status: Acute Plan to address problem: Nephrology consulted for dialysis, repeat bmp (3) SIRS (systemic inflammatory response syndrome) Current Visit: Yes Status: Acute Plan to address problem: Empiric antibiotic therpay (4) Hyperkalemia Current Visit: Yes Status: Acute Plan to address problem: kayelelate, urgent dialysis as per renal team (5) PKD (polycystic kidney disease) Current Visit: Yes Status: Chronic Plan to address problem: Chronic, Blood pressure control, Dialysis as per renal team. (6) DVT prophylaxis Current Visit: No Status: Acute Plan to address problem: SCD to BLE while in bed Subjective Date of service: 01/16/18 Principal diagnosis: ESRD with pul edema Interval history: t seen and examined. No new complcint Objective - Exam Narrative Exam: Constitutional: Well-nourished well-developed. In no distress Head: Normocephalic atraumatic Eyes: Pupils are equal round and reactive to light Nose: No enlarged turbinates, no septal deviation. Mouth: Moist mucous membranes. Neck: Supple no thyromegaly. No bruit. No JVD Heart: Regular rate and rhythm, S1-S2 abnormal. No rubs murmurs or gallop Lungs: Clear to auscultation bilaterally no rales or rhonchi Abdomen: Soft, nontender. Bowel sound are present. Extremities: No edema no cyanosis and no clubbing. Neuro: Alert oriented Oriented x3. No focal sensory or motor deficit. Skin: No rashes no hyperemic spots Psychiatry: Euthymic. Calm. - Constitutional Vitals: Vital Signs - 12hr 01/15/18 01/15/18 01/15/18 23:03 23:35 23:58 Temperature 97.9 F Pulse Rate 74 Respiratory 18 Rate Blood Pressure 182/103 164/98 Blood Pressure 164/98 [Right] O2 Sat by Pulse 100 Oximetry 01/16/18 01/16/18 01/16/18 01:06 05:59 06:56 Temperature 97.9 F Pulse Rate 70 71 71 Respiratory 22 Rate Blood Pressure 173/94 181/102 181/102 Blood Pressure [Right] O2 Sat by Pulse 97 100 Oximetry 01/16/18 01/16/18 10:07 10:09 Temperature Pulse Rate Respiratory Rate Blood Pressure 170/102 170/102 Blood Pressure [Right] O2 Sat by Pulse Oximetry - Labs CBC & Chem 7: 01/15/18 17:11 01/16/18 07:55 Labs: Abnormal lab results 01/15/18 01/15/18 01/15/18 Range/Units 17:11 17:11 17:38 RBC 2.82 L (3.65-5.03) M/mm3 Hgb 7.8 L (11.8-15.2) gm/dl Hct 24.8 L (35.5-45.6) % RDW 20.2 H (13.2-15.2) % Monocytes % (Manual) 15.0 H (0.0-7.3) % Eosinophils % (Manual) 7.0 H (0.0-4.3) % Basophils % (Manual) 2.0 H (0.0-1.8) % Lymphocytes # (Manual) 1.1 L (1.2-5.4) K/mm3 Monocytes # (Manual) 0.9 H (0.0-0.8) K/mm3 Sodium 136 L (137-145) mmol/L Potassium 6.9 H* (3.6-5.0) mmol/L Chloride 92.9 L (98-107) mmol/L Carbon Dioxide 19 L (22-30) mmol/L BUN 109 H (9-20) mg/dL Creatinine 15.3 H (0.8-1.5) mg/dL NT-Pro-B Natriuret Pep > 93223 H (0-450) pg/mL Albumin 3.6 L (3.9-5) g/dL Urine Blood Moderate A (Negative) 01/16/18 Range/Units 07:55 RBC (3.65-5.03) M/mm3 Hgb (11.8-15.2) gm/dl Hct (35.5-45.6) % RDW (13.2-15.2) % Monocytes % (Manual) (0.0-7.3) % Eosinophils % (Manual) (0.0-4.3) % Basophils % (Manual) (0.0-1.8) % Lymphocytes # (Manual) (1.2-5.4) K/mm3 Monocytes # (Manual) (0.0-0.8) K/mm3 Sodium (137-145) mmol/L Potassium 6.6 H* (3.6-5.0) mmol/L Chloride 95.9 L (98-107) mmol/L Carbon Dioxide 18 L (22-30) mmol/L BUN 117 H (9-20) mg/dL Creatinine 16.0 H (0.8-1.5) mg/dL NT-Pro-B Natriuret Pep (0-450) pg/mL Albumin (3.9-5) g/dL Urine Blood (Negative)
[2018-01-16] MEDS ORDERED: NACL 0.9% 100 ML IV PRN (13:22)
--- NOTE | 2018-01-16 13:24 | Consultation ---
History of Present Illness - Reason for Consult Consult date: 01/16/18 - History of Present Illness Mr. Ledbetter is a 47yo with ESRD on HD who presented to the ED with reports of SOB. He dialyzes qTTS. However, patient reports that he does not complete treatments. He reports to me that he last dialyzed on Monday. However, per ED note, patient last dialyzed appx 1 week agol. Labs at admission notable for K 6.9 and BUN >100. Past History Past Medical History: hypertension, renal failure Past Surgical History: Other (AV Fistula) Social history: , lives with family, smoking Family history: hypertension Medications and Allergies Allergies Allergy/AdvReac Type Severity Reaction Status Date / Time No Known Allergies Allergy Verified 01/30/17 20:04 Home Medications Medication Instructions Recorded Confirmed Last Taken Type Furosemide [Lasix] 20 mg PO BID 10/10/17 12/18/17 Unknown History Escitalopram [Lexapro] 10 mg PO DAILY 12/18/17 12/18/17 Unknown History cloNIDine [Catapres] 0.2 mg PO BID 12/18/17 12/18/17 Unknown History Labetalol [Normodyne TAB] 100 mg PO Q8HR tablet 12/20/17 Unknown Rx Losartan [Cozaar] 100 mg PO QDAY #30 tablet 12/20/17 Unknown Rx hydrALAZINE [Apresoline TAB] 100 mg PO Q8HR #90 tab 12/20/17 Unknown Rx oxyCODONE /ACETAMINOPHEN [Percocet 1 tab PO Q6H PRN #14 tablet 12/20/17 Unknown Rx 5/325 mg] Active Meds: Active Medications Acetaminophen (Tylenol) 650 mg PO Q4H PRN PRN Reason: Pain MILD(1-3)/Fever >100.5/SWAIN Albuterol (Proventil) 2.5 mg IH Q4HRT PRN PRN Reason: Shortness Of Breath Clonidine HCl (Catapres) 0.2 mg PO BID [facility] Last Admin: 01/16/18 10:07 Dose: 0.2 mg Escitalopram Oxalate (Lexapro) 10 mg PO DAILY [facility] Last Admin: 01/16/18 10:08 Dose: 10 mg Hydralazine HCl (Apresoline) 100 mg PO Q8HR [facility] Last Admin: 01/16/18 06:56 Dose: 100 mg Hydralazine HCl (Apresoline) 10 mg IV Q4HR PRN PRN Reason: Hypertension Sodium Chloride (Nacl 0.9%) 100 mls @ 999 mls/hr IV JULIA PRN PRN Reason: Hypotension Labetalol HCl (Normodyne) 100 mg PO Q8HR [facility] Last Admin: 01/16/18 08:01 Dose: Not Given Losartan Potassium (Cozaar) 100 mg PO QDAY [facility] Last Admin: 01/16/18 10:09 Dose: 100 mg Ondansetron HCl (Zofran) 4 mg IV Q8H PRN PRN Reason: Nausea And Vomiting Oxycodone/Acetaminophen (Percocet 5/325) 1 tab PO Q6H PRN PRN Reason: Pain, Moderate (4-6) Last Admin: 01/16/18 01:07 Dose: 1 tab Sodium Chloride (Sodium Chloride Flush Syringe 10 Ml) 10 ml IV BID [facility] Last Admin: 01/16/18 01:08 Dose: 10 ml Sodium Chloride (Sodium Chloride Flush Syringe 10 Ml) 10 ml IV PRN PRN PRN Reason: LINE FLUSH Review of Systems All systems: negative Exam - Vital Signs Vital signs: Vital Signs Temp Pulse Resp BP Pulse Ox 100.0 F H 78 22 198/98 97 01/15/18 16:20 01/15/18 16:20 01/15/18 16:20 01/15/18 16:20 01/15/18 16:20 - General Appearance General appearance: well-developed, well-nourished EENT: ATNC Respiratory: Clear to Ascultation Heart: regular, S1S2 Gastrointestinal: Present: normal. Absent: tenderness, distended Musculoskeletal: Present: other (generalized edema) Psychiatric: cooperative Results - Lab Results 01/15/18 17:11 01/16/18 07:55 Most recent lab results Calcium 9.1 mg/dL (8.4-10.2) 01/16/18 07:55 Assessment and Plan Impression: * ESRD * Hyperkalemia * Azotemia * Noncompliance with dialysis * Anasarca * Anemia in ESRD * Secondary hyperparathyroidism Plan: * Hemodiaylsis today - UF as tolerated * Recommend an additional dialysis treatment tomorrow in light of edema and azotemia * Patient reports that he has to leave hospital after dialysis today * Addressed need for compliance with diet/dialysis - patient is very resistant to suggestions
[2018-01-16 19:06] VITALS: BP 195/102
--- NOTE | 2018-01-16 21:11 | Event Note ---
Date: 01/16/18 Called to see pt said to be wanting to discharge himself against medical advise. Had Hemodialysed today. Potassium level improved from 6.9 to 6.3. Advised pt that he is still not fit for discharged. He still want to go home for an appointment tomorrow despite the risk including cardiac arrest. Pt still decided he will discharge himself against medical advise.
== END 2018-01-16 21:20 | disposition left against medical advice (07) | DRG 640 ==
LOC: ED 16:12 → 3A 18:26
PROVIDERS: ADMIT Internal Medicine; ATTEND Family Medicine
PROC: 5A1D70Z Performance of Urinary Filtration, Intermittent, Less than 6 Hours Per Day (ICD-10-PCS; principal; 2018-01-16)
DX: E87.5 Hyperkalemia (principal); N18.6 End stage renal disease; R65.10 Systemic inflammatory response syndrome (SIRS) of non-infectious origin without acute organ dysfunction; I12.0 Hypertensive chronic kidney disease with stage 5 chronic kidney disease or end stage renal disease; N25.81 Secondary hyperparathyroidism of renal origin; Q61.3 Polycystic kidney, unspecified; E87.2 Acidosis; R79.89 Other specified abnormal findings of blood chemistry; R31.9 Hematuria, unspecified; R60.1 Generalized edema; D63.1 Anemia in chronic kidney disease; Z82.49 Family history of ischemic heart disease and other diseases of the circulatory system; Z79.899 Other long term (current) drug therapy; Z91.15 Patient's noncompliance with renal dialysis
CPT/HCPCS: 36415; 71045; 74176; 80048; 80053; 81001; 83880; 85007; 85025; 87116; 93005; 93010; J0360; J0610; J1170; J1815; J1885; J1940; J2405; J3370; J7040

== ENCOUNTER 2018-02-12 05:03 | Emergency (ER) | payer MEDICARE ==
[2018-02-12 05:31] VITALS: BP 194/114
[2018-02-12 06:29] LABS: Basophils # (Auto) 0.1 K/mm3 (0.0-0.1); Basophils % (Auto) 1.5 % (0.0-1.8); Eosinophils # (Auto) 0.3 K/mm3 (0.0-0.4); Eosinophils % (Auto) 3.8 % (0.0-4.3); Hematocrit 24.5 % (35.5-45.6); Lymphocytes % (Auto) 14.3 % (13.4-35.0); Mean Corpuscular HGB Conc 33 % (32-34); Mean Corpuscular Hemoglobin 29 pg (28-32); Mean Corpuscular Volume 88 fl (84-94); Monocytes # (Auto) 0.9 K/mm3 (0.0-0.8); Monocytes % (Auto) 13.1 % (0.0-7.3); Platelet Count 209 K/mm3 (140-440); Red Blood Count 2.79 M/mm3 (3.65-5.03)
--- NOTE | 2018-02-12 06:35 | XRay Report ---
FINAL REPORT EXAM: XR CHEST ROUTINE 2V HISTORY: Shortness of breath TECHNIQUE: A portable upright view the chest was obtained and compared to the study of 01/30/2018. FINDINGS: The cardiac silhouette is [id number] enlarged. There is stable soft tissue fullness in the right hilum suggesting adenopathy. The lungs otherwise are clear. There is no evidence of congestion. Pleural fluid is not seen. The bones soft tissues otherwise are unchanged. IMPRESSION: Enlargement cardiac silhouette secondary to cardiomegaly and/or pericardial effusion. Stable soft tissue fullness along the right hilum. Underlying adenopathy cannot be excluded. No localized infiltrates or congestion.
[2018-02-12 06:41] LABS: Calcium 9.2 mg/dL (8.4-10.2)
== END 2018-02-12 09:50 ==
LOC: ED 05:03
DX: R60.0 Localized edema (principal); Z53.21 Procedure and treatment not carried out due to patient leaving prior to being seen by health care provider
CPT/HCPCS: 36415; 71046; 80048; 85025; 93005; 93010

== ENCOUNTER 2018-06-19 11:22 | Inpatient (IN) | payer MEDICARE ==
--- NOTE | 2018-06-19 12:42 | Consultation ---
History of Present Illness - Reason for Consult Consult date: 06/19/18 Requesting physician: CORWIN SHETTY - History of Present Illness 48 YO Male with ESRD on HD(T,R,Sa) last dialyzed on Monday, PCKD, HTN, Obesity,Anemia, Systolic/Diastolic CHF, Ascites admitted for hernia repair. Consult placed by Dr. Shetty for medical management. Pt seen and evaluated upon arrival. Pt acknowledges distended abdomen. Pt denies fever, chills, CP, Palpitations, shortness of breath, NVD, Trauma, productive cough, or recent ill contacts. No reported nursing events. Past History Past Medical History: ESRD, heart failure, hypertension Past Surgical History: hernia repair, Other (AV Fistula, LUE) Social history: , lives with family. denies: smoking, alcohol abuse, prescription drug abuse Family history: hypertension Medications and Allergies Allergies Allergy/AdvReac Type Severity Reaction Status Date / Time tramadol [From Ultram] AdvReac Dizziness Verified 03/05/18 15:30 Home Medications Medication Instructions Recorded Confirmed Last Taken Type Escitalopram [Lexapro] 10 mg PO DAILY #30 tablet 04/04/18 06/19/18 Unknown Rx Furosemide [Lasix] 40 mg PO BID #60 tablet 04/04/18 06/19/18 Unknown Rx hydrALAZINE [Apresoline TAB] 100 mg PO TID #90 tab 04/04/18 06/19/18 Unknown Rx oxyCODONE /ACETAMINOPHEN [Percocet 1 tab PO Q6HR PRN #12 tablet 04/04/18 06/19/18 Unknown Rx 5/325 mg] Carvedilol [Coreg] 6.25 mg PO BID #60 tablet 05/18/18 06/19/18 Unknown Rx cloNIDine [Catapres] 0.1 mg PO TID #90 tablet 05/18/18 06/19/18 Unknown Rx Torsemide [Demadex] 20 mg PO DAILY 06/19/18 06/19/18 Unknown History Active Meds: Active Medications Heparin Sodium (Porcine) (Heparin) 5,000 unit SUB-Q Q8HR FOSTER Review of Systems Constitutional: no weight loss, no weight gain, no fever, no chills Ears, nose, mouth and throat: no ear pain, no ear discharge, no tinnitis, no decreased hearing, no nose pain Cardiovascular: no chest pain, no orthopnea, no palpitations, no rapid/irregular heart beat, no edema, no syncope, no lightheadedness, no dyspnea on exertion Respiratory: no cough, no cough with sputum, no excessive sputum, no hemoptysis Gastrointestinal: no nausea, no vomiting, no diarrhea Genitourinary Male: no flank pain, no discharge, no urinary frequency, no urinary hesitancy, no nocturia, no incontinence Rectal: no pain, no incontinence, no bleeding Musculoskeletal: no neck pain, no shooting arm pain, no arm numbness/tingling, no low back pain, no shooting leg pain Integumentary: no rash, no pruritis, no redness, no sores, no wounds Neurological: no paralysis, no weakness, no parathesias, no numbness, no tingling, no seizures Psychiatric: no memory loss, no change in sleep habits, no sleep disturbances, no insomnia, no hypersomnia, no change in appetite, no change in libido Endocrine: no cold intolerance, no heat intolerance, no polyphagia, no excessive thirst, no polydipsia, no nocturia Hematologic/Lymphatic: no easy bruising, no easy bleeding, no lymphadenopathy, no lymphedema Allergic/Immunologic: no urticaria, no allergic rhinitis, no persistent infections, no anaphylaxis Exam - Constitutional General appearance: Present: no acute distress, obese - EENT Eyes: Present: PERRL ENT: hearing intact, clear oral mucosa - Neck Neck: Present: supple, normal ROM - Respiratory Respiratory effort: normal Respiratory: bilateral: CTA - Cardiovascular Heart Sounds: Present: S1 & S2. Absent: rub, click - Extremities Extremities: pulses symmetrical, No edema Peripheral Pulses: within normal limits - Abdominal General gastrointestinal: Present: soft, non-tender, non-distended, normal bowel sounds Male genitourinary: Present: normal - Integumentary Integumentary: Present: clear, warm, dry - Musculoskeletal Musculoskeletal: gait normal, strength equal bilaterally - Psychiatric Psychiatric: appropriate mood/affect, intact judgment & insight - Neurologic Neurologic: CNII-XII intact, moves all extremities Results - Labs CBC & Chem 7: 06/19/18 12:52 06/19/18 12:52 Assessment and Plan - Patient Problems (1) ESRD (end stage renal disease) Current Visit: Yes Status: Acute Plan to address problem: Pt dialyzed, monitor uop q shift, daily weight, strict I/O, avoid nephrotoxic angents. (2) CHF (congestive heart failure) Current Visit: Yes Status: Acute Qualifiers: Heart failure type: combined systolic and diastolic Plan to address problem: Admit to surgical floor, strict I/O, daily weight, monitor uop q shift, afterload reduction, diuresis (3) HTN (hypertension) Current Visit: Yes Status: Acute Qualifiers: Hypertension type: essential hypertension Qualified Code(s): I10 - Essential (primary) hypertension Plan to address problem: monitor bp q shift, continue medical management (4) Obesity (BMI 30-39.9) Current Visit: Yes Status: Acute Plan to address problem: Pt counseled regarding balanced diet, increased physical activity at discharge (5) DVT prophylaxis Current Visit: Yes Status: Acute Plan to address problem: SCD to BLE while in bed,
[2018-06-19] MEDS ORDERED: PERCOCET 5/325 PO PRN (13:21)
[2018-06-19] MEDS: COREG PO SCH ×2 (13:30→21:53)
[2018-06-19 13:36] LABS: Hematocrit 25.2 % (35.5-45.6); Mean Corpuscular HGB Conc 32 % (32-34); Mean Corpuscular Volume 89 fl (84-94); Platelet Count 170 K/mm3 (140-440); Red Blood Count 2.84 M/mm3 (3.65-5.03); Red Cell Distribution Width 18.1 % (13.2-15.2)
[2018-06-19 13:47] LABS: INR 1.32 (0.87-1.13)
[2018-06-19 13:57] LABS: Calcium 9.1 mg/dL (8.4-10.2)
--- NOTE | 2018-06-19 14:20 | History and Physical Report ---
History of Present Illness Date of examination: 06/19/18 Date of admission: 06/19/18 11:22 Chief complaint: inguinal hernia History of present illness: 48 yo M with hx of CHF, ESRD on HD, ascites presents for right inguinal hernia repair. He is being preadmitted day before surgery to undergo paracentesis. He has no complaints. He underwent HD yesterday, although his usual days are T//Mon. He denies CP, SOB, abd pain, n/v, f/c. He saw his broadcast operations engineer 1-2 weeks ago and was cleared for surgery. I discussed labs with Dr. Bledsoe (anesthesia) who requests repeat BMP in am. Past History Past Medical History: dialysis, ESRD, heart failure, hypertension, other (polycystic kidneys, ascites) Past Surgical History: Other (abdominal wall hernia repair, AVF) Social history: no significant social history Family history: no significant family history Medications and Allergies Allergies Allergy/AdvReac Type Severity Reaction Status Date / Time tramadol [From Ultram] AdvReac Dizziness Verified 03/05/18 15:30 Home Medications Medication Instructions Recorded Confirmed Last Taken Type Escitalopram [Lexapro] 10 mg PO DAILY #30 tablet 04/04/18 06/19/18 Unknown Rx Furosemide [Lasix] 40 mg PO BID #60 tablet 04/04/18 06/19/18 Unknown Rx hydrALAZINE [Apresoline TAB] 100 mg PO TID #90 tab 04/04/18 06/19/18 Unknown Rx oxyCODONE /ACETAMINOPHEN [Percocet 1 tab PO Q6HR PRN #12 tablet 04/04/18 06/19/18 Unknown Rx 5/325 mg] Carvedilol [Coreg] 6.25 mg PO BID #60 tablet 05/18/18 06/19/18 Unknown Rx cloNIDine [Catapres] 0.1 mg PO TID #90 tablet 05/18/18 06/19/18 Unknown Rx Torsemide [Demadex] 20 mg PO DAILY 06/19/18 06/19/18 Unknown History Active Meds: Active Medications Carvedilol (Coreg) 6.25 mg PO BID [facility] Clonidine HCl (Catapres) 0.1 mg PO TID [facility] Escitalopram Oxalate (Lexapro) 10 mg PO DAILY [facility] Furosemide (Lasix) 40 mg PO BID [facility] Heparin Sodium (Porcine) (Heparin) 5,000 unit SUB-Q Q8HR [facility] Hydralazine HCl (Apresoline) 100 mg PO TID [facility] Cefazolin Sodium 2 gm/ Sodium (Chloride) 100 mls @ 200 mls/hr IV PREOP ONE Stop: 06/20/18 07:29 Oxycodone/Acetaminophen (Percocet 5/325) 1 tab PO Q6HR PRN PRN Reason: Pain , Severe (7-10) Torsemide (Demadex) 20 mg PO QDAY [facility] Review of Systems All systems: negative (10 pt ROS performed and negative except for that listed in HPI) Exam Vital Signs Temp Pulse Resp BP Pulse Ox 97.6 F 75 18 188/112 95 06/19/18 12:00 06/19/18 12:00 06/19/18 12:00 06/19/18 12:00 06/19/18 12:00 Narrative exam: Gen: AAOx3. NAD ENT: no scleral icterus or conjunctival pallor CV: s1, s2+ Resp: even and unlabored Abd; soft, distended, NT Ext: no c/c/e Results - Labs 06/19/18 12:52 06/19/18 12:52 Abnormal lab results 06/19/18 06/19/18 06/19/18 Range/Units 12:52 12:52 12:52 RBC 2.84 L (3.65-5.03) M/mm3 Hgb 8.0 L (11.8-15.2) gm/dl Hct 25.2 L (35.5-45.6) % RDW 18.1 H (13.2-15.2) % PT 16.8 H (12.2-14.9) Sec. INR 1.32 H (0.87-1.13) Potassium 5.2 H (3.6-5.0) mmol/L Chloride 96.2 L (98-107) mmol/L BUN 58 H (9-20) mg/dL Creatinine 10.7 H (0.8-1.5) mg/dL Glucose 103 H (75-100) mg/dL Diabetes panel 06/19/18 Range/Units 12:52 Sodium 141 (137-145) mmol/L Potassium 5.2 H (3.6-5.0) mmol/L Chloride 96.2 L (98-107) mmol/L Carbon Dioxide 27 (22-30) mmol/L BUN 58 H (9-20) mg/dL Creatinine 10.7 H (0.8-1.5) mg/dL Glucose 103 H (75-100) mg/dL Calcium 9.1 (8.4-10.2) mg/dL Calcium panel 06/19/18 Range/Units 12:52 Calcium 9.1 (8.4-10.2) mg/dL Pituitary panel 06/19/18 Range/Units 12:52 Sodium 141 (137-145) mmol/L Potassium 5.2 H (3.6-5.0) mmol/L Chloride 96.2 L (98-107) mmol/L Carbon Dioxide 27 (22-30) mmol/L BUN 58 H (9-20) mg/dL Creatinine 10.7 H (0.8-1.5) mg/dL Glucose 103 H (75-100) mg/dL Calcium 9.1 (8.4-10.2) mg/dL Adrenal panel 06/19/18 Range/Units 12:52 Sodium 141 (137-145) mmol/L Potassium 5.2 H (3.6-5.0) mmol/L Chloride 96.2 L (98-107) mmol/L Carbon Dioxide 27 (22-30) mmol/L BUN 58 H (9-20) mg/dL Creatinine 10.7 H (0.8-1.5) mg/dL Glucose 103 H (75-100) mg/dL Calcium 9.1 (8.4-10.2) mg/dL Assessment and Plan 48 yo M with reducible right inguinal hernia 1. hx of CHF 2. ESRD on HD 3. ascites Plan; 1. admit to surgical floor with remote tele 2. hospitalist consult - d/w Dr. Santana 3. repeat BMP in am 4. ancef orthopedically impaired teacher to OR 5. continue home meds 6. ultrasound guided paracentesis today - d/w operating room surgical technologist 7. DVT ppx 8. OR in am - scheduled for 8 am. NPO p MN tonight
[2018-06-19 14:24] LABS: Basophils % (Manual) 0 % (0.0-1.8); Total Cells Counted 100
[2018-06-19 14:25] LABS: Anisocytosis 1+; Ovalocytes 1+; Platelet Estimate Consistent w Auto; Poikilocytosis 1+; Target Cells Few; Tear Drop Cells Few
[2018-06-19] MEDS: CATAPRES PO SCH ×3 (14:36→21:53)
[2018-06-19] MEDS: APRESOLINE PO SCH ×3 (14:36→21:54)
[2018-06-19] MEDS: LASIX PO SCH ×2 (14:36→22:00)
--- NOTE | 2018-06-19 15:05 | Procedure Note ---
Date of procedure: 06/19/18 Pre-op diagnosis: ascites Post-op diagnosis: same Procedure: US paracentesis Findings: moderate ascites Anesthesia: local Surgeon: BARTOLOME IBRAHIM Estimated blood loss: none Pathology: none Specimen disposition: discarded Condition: stable Disposition: floor
--- NOTE | 2018-06-19 15:43 | Ultrasound Report ---
ULTRASOUND PARACENTESIS HISTORY: Ascites. DESCRIPTION OF PROCEDURE: A time out was performed. Informed consent was obtained. Sterile technique was utilized. Using ultrasound guidance, a 5 [place] centesis needle was advanced into the peritoneal space. There was spontaneous return of clear yellow fluid. 4.0 L of fluid was drained. No complications. IMPRESSION: Successful ultrasound-guided paracentesis.
[2018-06-19] MEDS: HEPARIN SUB-Q SCH ×2 (16:38→21:53)
[2018-06-20 04:53] LABS: Calcium 8.9 mg/dL (8.4-10.2)
[2018-06-20] MEDS: HEPARIN SUB-Q SCH ×3 (05:23→21:34)
[2018-06-20] MEDS ORDERED: MARCAINE 0.25% INFILTRATI ONE ×2 (06:36→08:34)
[2018-06-20] MEDS ORDERED: XYLOCAINE 1% 20 mL ONE (06:36)
[2018-06-20] MEDS ORDERED: ceFAZolin 2 GM in NACL 0.9% 100 ML IV ONE (07:00)
--- NOTE | 2018-06-20 07:19 | Anesthesia Day of Surgery ---
Anesthesia Day of Surgery - Day of Surgery Patient Examined: Yes Patient H&P Reviewed: Yes Patient is NPO: Yes Beta Blockers: Yes Cardiac Clearance: Yes Pulmonary Clearance: Yes Shabbir's Test: N/A
--- NOTE | 2018-06-20 07:23 | Anesthesia Consultation ---
Anesthesia Consult and Med Hx Date of service: 06/20/18 (Cardiac clearance in chart) - Airway Anesthetic Teeth Evaluation: Good ROM Head & Neck: Inadequate Mental/Hyoid Distance: Adequate Mallampati Class: Class III Intubation Access Assessment: Possibly Difficult - Pulmonary Exam CTA: Yes - Cardiac Exam Cardiac Exam: RRR - Pre-Operative Health Status ASA Pre-Surgery Classification: ASA4 Proposed Anesthetic Plan: General - Pulmonary Hx Smoking: No Hx Asthma: No SOB: Yes (SOB) COPD: No Hx Pneumonia: No Hx Sleep Apnea: No (ISHAN PRE SCREEN HIGH RISK) - Cardiovascular System Hx Hypertension: Yes (2012) - Central Nervous System Hx Neuromuscular Disorder: No - Gastrointestinal Hx Ulcer: No - Endocrine Hx Renal Disease: Yes (ESRD) Hx End Stage Renal Disease: Yes - Hematic Hx Anemia: Yes Hx Sickle Cell Disease: No - Other Systems Hx Cancer: No - Additional Comments Anesthesia Medical History Comments: CHF w/ EF 35%; moderate pulmonary htn; No GAC, No FHAC
[2018-06-20] MEDS ORDERED: ANCEF/STERILE WATER 2 GM/20 ML 2 GM/20 ML SYRINGE IV ONE (07:28)
[2018-06-20] MEDS ORDERED: ANCEF/STERILE WATER 2 GM/20 ML 2 GM/20 ML SYRINGE IV NR (07:30)
[2018-06-20] MEDS ORDERED: XYLOCAINE MPF 2% ONE (07:51)
[2018-06-20] MEDS ORDERED: ZEMURON IV ONE (07:51)
[2018-06-20] MEDS ORDERED: DILAUDID ONE (07:51)
[2018-06-20] MEDS ORDERED: DIPRIVAN 10 MG/ML IV ONE (07:51)
[2018-06-20] MEDS ORDERED: VERSED IV NR (08:00)
[2018-06-20] MEDS ORDERED: NACL 0.9% 1000 ML 1,000 ML IV SCH (08:00)
[2018-06-20] MEDS ORDERED: SUBLIMAZE IV PRN (08:00)
[2018-06-20] MEDS ORDERED: XYLOCAINE 1% 20 mL INFILTRATI ONE (08:34)
[2018-06-20] MEDS ORDERED: NACL 0.9% IR ONE (08:35)
--- NOTE | 2018-06-20 09:12 | Consultation ---
History of Present Illness - Reason for Consult Consult date: 06/20/18 end stage renal disease Past History Past Medical History: dialysis, ESRD, heart failure, hypertension, other (polycystic kidneys, ascites) Past Surgical History: Other (abdominal wall hernia repair, AVF) Social history: no significant social history Family history: no significant family history Medications and Allergies Allergies Allergy/AdvReac Type Severity Reaction Status Date / Time tramadol [From Ultram] AdvReac Dizziness Verified 03/05/18 15:30 Home Medications Medication Instructions Recorded Confirmed Last Taken Type Escitalopram [Lexapro] 10 mg PO DAILY #30 tablet 04/04/18 06/19/18 Unknown Rx Furosemide [Lasix] 40 mg PO BID #60 tablet 04/04/18 06/19/18 Unknown Rx hydrALAZINE [Apresoline TAB] 100 mg PO TID #90 tab 04/04/18 06/19/18 Unknown Rx oxyCODONE /ACETAMINOPHEN [Percocet 1 tab PO Q6HR PRN #12 tablet 04/04/18 9 Unknown Rx 5/325 mg] Carvedilol [Coreg] 6.25 mg PO BID #60 tablet 05/18/18 06/19/18 Unknown Rx cloNIDine [Catapres] 0.1 mg PO TID #90 tablet 05/18/18 06/19/18 Unknown Rx Torsemide [Demadex] 20 mg PO DAILY 06/19/18 06/19/18 Unknown History Active Meds: Active Medications Carvedilol (Coreg) 6.25 mg PO BID [facility] Last Admin: 06/19/18 21:53 Dose: Not Given Documented by: Clonidine HCl (Catapres) 0.1 mg PO TID [facility] Last Admin: 06/19/18 21:53 Dose: Not Given Documented by: Escitalopram Oxalate (Lexapro) 10 mg PO DAILY [facility] Fentanyl (Sublimaze) 50 mcg IV Q15MIN PRN PRN Reason: Pain , Severe (7-10) Stop: 06/20/18 15:00 Furosemide (Lasix) 40 mg PO BID [facility] Last Admin: 06/19/18 22:00 Dose: Not Given Documented by: Heparin Sodium (Porcine) (Heparin) 5,000 unit SUB-Q Q8HR [facility] Last Admin: 06/20/18 05:23 Dose: Not Given Documented by: Hydralazine HCl (Apresoline) 100 mg PO TID [facility] Last Admin: 06/19/18 21:54 Dose: Not Given Documented by: Sodium Chloride (Nacl 0.9% 1000 Ml) 1,000 mls @ 42 mls/hr IV DIRECT [facility] Last Admin: 06/20/18 07:30 Dose: 42 mls/hr Documented by: Cefazolin Sodium (Ancef/Sterile Water 2 Gm/20 Ml) 2 gm in 20 mls @ 80 mls/hr IV PREOP NR Stop: 06/20/18 10:00 Midazolam HCl (Versed) 2 mg IV PREOP NR Stop: 06/20/18 23:59 Oxycodone/Acetaminophen (Percocet 5/325) 1 tab PO Q6HR PRN PRN Reason: Pain , Severe (7-10) Torsemide (Demadex) 20 mg PO QDAY [facility] Exam - Vital Signs Vital signs: Vital Signs Temp Pulse Resp BP Pulse Ox 97.6 F 75 18 188/112 95 06/19/18 12:00 06/19/18 12:00 06/19/18 12:00 06/19/18 12:00 06/19/18 12:00 Results - Lab Results 06/19/18 12:52 06/20/18 04:16 Most recent lab results Calcium 8.9 mg/dL (8.4-10.2) 06/20/18 04:16
[2018-06-20] MEDS ORDERED: ROBINUL ONE ×2 (10:01→11:04)
[2018-06-20] MEDS ORDERED: ZOFRAN ONE (10:01)
[2018-06-20] MEDS ORDERED: BLOXIVERZ ONE (10:01)
--- NOTE | 2018-06-20 10:02 | Post Operative Note ---
Date of procedure: 06/20/18 Pre-op diagnosis: right inguinal hernia Post-op diagnosis: same Findings: large indirect hernia and laxity of floor Procedure: right inguinal hernia repair with mesh Anesthesia: JOHNA, local Surgeon: CORWIN SHETTY Small Engine Mechanic: ERIK VALLADARES Estimated blood loss: minimal Pathology: list (cord lipoma) Specimen disposition: to lab Condition: stable Disposition: PACU
[2018-06-20] MEDS ORDERED: ROBINUL IV ONE (11:00)
--- NOTE | 2018-06-20 11:37 | Consultation ---
Addendum entered and electronically signed by OMAYRA TEJADA MD 06/20/18 20:00: Potassium elevated - patient received HD TSH is elevated suggesting hypothyroidism Discussed with tele - patient is still in junctional rhythm with a HR of 64 and narrow complex QRS, HD stable Repeat TSH and free T4 Start synthroid 50 mcg daily Addendum entered and electronically signed by OMAYRA TEJADA MD 06/20/18 12:38: I have reviewed his tele strips from yesterday and this morning. There is evidence of paroxysmal junctional rhythm noted yesterday and today. Will therefore discontinue clonidine also and replace with procardia for blood pressure control. Addendum entered and electronically signed by OMAYRA TEJADA MD 06/20/18 12:28: Discussed with Dr Shields Addendum entered and electronically signed by OMAYRA TEJADA MD 06/20/18 12:22: Will also check BMP to rule out interval hyperkalemia Addendum entered and electronically signed by OMAYRA TEJADA MD 06/20/18 11:51: Contacted by anesthesia regarding new onset junctional rhythm Reviewed ECG - Junctional rhythm with a HR of 51 (narrow complex) Baseline ECG showing sinus bradycardia, normal [place], normal QRS durations Patient is s/p inguinal hernia surgery. Patient in no distress and BP 117/76 Will administer glucagon 1 mg IV x 1 dose Discontinue carvedilol May transfer back to floor while on remote telemetry Will continue to monitor closely. I expect his rhythm to recover spontaneously as bradycardia is most likely vagally mediated No urgent need for a TVP Original Note: History of Present Illness Consult date: 06/20/18 Consult reason: bradycardia History of present illness: Patient is a 48 year old male with hypertension, end-stage renal disease on hemodialysis, chronic anemia and ascities requiring frequent paracentesis. He also has a dilated non-ischemic cardiomyopathy by non-invasive cardiac stress thallium test 4 month ago that documents a normal perfusion scan but a decreased left ventricular systolic function with an ejection fraction 30-35% by echocardiogram. Patient was admitted 06/19 in preparation for inguinal hernia repair and has undergone a paracentesis with 4.0 liters of fluid removed. A cardiac c onsultation was requested for post-operatively. Patient denies chest pain and shortness of breath. An EKG is junctional rhythm, rate 50. His home medications list includes carvediolol 6.25mg twice daily and clonidine 0.1mg three times daily. Past History Past Medical History: dialysis, ESRD, heart failure, hypertension, other (polycystic kidneys, ascites) Past Surgical History: Other (abdominal wall hernia repair, AVF) Social history: no significant social history Family history: no significant family history Medications and Allergies Allergies Allergy/AdvReac Type Severity Reaction Status Date / Time tramadol [From Ultram] AdvReac Dizziness Verified 03/05/18 15:30 Home Medications Medication Instructions Recorded Confirmed Last Taken Type Escitalopram [Lexapro] 10 mg PO DAILY #30 tablet 04/04/18 06/19/18 Unknown Rx Furosemide [Lasix] 40 mg PO BID #60 tablet 04/04/18 06/19/18 Unknown Rx hydrALAZINE [Apresoline TAB] 100 mg PO TID #90 tab 04/04/18 06/19/18 Unknown Rx Carvedilol [Coreg] 6.25 mg PO BID #60 tablet 05/18/18 06/19/18 Unknown Rx cloNIDine [Catapres] 0.1 mg PO TID #90 tablet 05/18/18 06/19/18 Unknown Rx Torsemide [Demadex] 20 mg PO DAILY 06/19/18 06/19/18 Unknown History oxyCODONE /ACETAMINOPHEN [Percocet 1 tab PO Q6HR PRN #20 06/20/18 Unknown Rx 5/325 mg] Active Meds: Active Medications Clonidine HCl (Catapres) 0.1 mg PO TID [facility] Last Admin: 06/19/18 21:53 Dose: Not Given Documented by: Escitalopram Oxalate (Lexapro) 10 mg PO DAILY [facility] Fentanyl (Sublimaze) 50 mcg IV Q15MIN PRN PRN Reason: Pain , Severe (7-10) Stop: 06/20/18 15:00 Glucagon (Glucagen) 1 mg IV ONCE ONE Stop: 06/20/18 11:33 Heparin Sodium (Porcine) (Heparin) 5,000 unit SUB-Q Q8HR [facility] Last Admin: 06/20/18 05:23 Dose: Not Given Documented by: Hydralazine HCl (Apresoline) 50 mg PO TID [facility] Sodium Chloride (Nacl 0.9% 1000 Ml) 1,000 mls @ 42 mls/hr IV DIRECT [facility] Last Admin: 06/20/18 07:30 Dose: 42 mls/hr Documented by: Midazolam HCl (Versed) 2 mg IV PREOP NR Stop: 06/20/18 23:59 Oxycodone/Acetaminophen (Percocet 5/325) 1 tab PO Q4H PRN PRN Reason: Pain , Severe (7-10) Torsemide (Demadex) 40 mg PO QDAY [facility] Physical Examination Vital Signs Temp Pulse Resp BP Pulse Ox 97.6 F 75 18 188/112 95 06/19/18 12:00 06/19/18 12:00 06/19/18 12:00 06/19/18 12:00 06/19/18 12:00 General appearance: no acute distress HEENT: Positive: PERRL Cardiac: Positive: Other (junctional rhythm) Results 06/19/18 12:52 06/20/18 04:16 Coagulation 06/19/18 Range/Units 12:52 PT 16.8 H (12.2-14.9) Sec. INR 1.32 H (0.87-1.13) CBC 06/19/18 Range/Units 12:52 WBC 5.7 (4.5-11.0) K/mm3 RBC 2.84 L (3.65-5.03) M/mm3 Hgb 8.0 L (11.8-15.2) gm/dl Hct 25.2 L (35.5-45.6) % Plt Count 170 (140-440) K/mm3 Comprehensive Metabolic Panel 06/19/18 06/20/18 Range/Units 12:52 04:16 Sodium 141 139 (137-145) mmol/L Potassium 5.2 H 5.2 H (3.6-5.0) mmol/L Chloride 96.2 L 96.5 L (98-107) mmol/L Carbon Dioxide 27 27 (22-30) mmol/L BUN 58 H 62 H (9-20) mg/dL Creatinine 10.7 H 11.4 H (0.8-1.5) mg/dL Glucose 103 H 132 H (75-100) mg/dL Calcium 9.1 8.9 (8.4-10.2) mg/dL Assessment and Plan Inguinal hernia repair Ascites s/p paracentesis End-stage renal disease on hemodialysis Nonischemic Cardiomyopathy EF 30-35% by echo 12/2017 no ischemia on MPI 12/2017 Hypertension Recommendations: Fluid/sodium restriction. Dialysis for fluid removal. Discontinue carvediolol due to junctional rhythm on his EKG. Continue telemetry monitoring.
--- NOTE | 2018-06-20 11:38 | Event Note ---
Date: 06/20/18 Contacted by anesthesia regarding new onset junctional rhythm Reviewed ECG - Junctional rhythm with a HR of 51 (narrow complex) Baseline ECG showing sinus bradycardia, normal [place], normal QRS durations Patient is s/p inguinal hernia surgery. Patient in no distress and BP 117/76 Will administer glucagon 1 mg IV x 1 dose Discontinue carvedilol May transfer back to floor while on remote telemetry Will continue to monitor closely No urgent need for a TVP
[2018-06-20] MEDS ORDERED: GLUCAGEN IV ONE (12:00)
[2018-06-20] MEDS ORDERED: NON-FORMULARY (Torsemide [Demadex] 20 MG) PO SCH (13:21)
[2018-06-20] MEDS ORDERED: CALCIUM CHLORIDE IV ONE (13:28)
--- NOTE | 2018-06-20 13:41 | Post Anesthesia Evaluation ---
- Post Anesthesia Evaluation Patient Participated: Yes Airway Patent: Yes Stable Respiratory Function: Yes Nausea/Vomiting: No Temp > 96.8F: Yes Pain Manageable: Yes Adequeate Hydration: Yes Anesthesia Complications: No Other Comments: Patient noted to be bradycardic with absent p-waves intermittently intraop. HD stable. 12-lead EKG in PACU showed sinus bradycardia. Repeat EKG immediately after showed junctional rhythm. HD stable. Cardiology consulted in PACU and recommended continuous remote telemetry postoperatively.
[2018-06-20] MEDS ORDERED: DEMADEX PO SCH (14:00)
[2018-06-20 14:30] LABS: Calcium 8.8 mg/dL (8.4-10.2)
--- NOTE | 2018-06-20 14:31 | Event Note ---
Date: 06/20/18 Post op EKG, vital signs noted. Cardiology consulted in PACU and orders/recommendations appreciated. Will continue to observe patient on remote telemetry. I explained the plan to the patient and reason for continued admission. He understands. Hospitalist and nephrology comanagement appreciated.
[2018-06-20] MEDS ORDERED: CALCIUM CHLORIDE 1,000 MG in NACL 0.9% 100 ML IV ONE (15:00)
--- NOTE | 2018-06-20 15:05 | Progress Note ---
Assessment and Plan Assessment and plan: --End-stage renal disease/hyperkalemia; on hemodialysis Nephrology following, hemodialysis per schedule --Status post right inguinal hernia repair with mesh; Continue postoperative care per surgery --Abnormal EKG; cardiology evaluates the patient Continue current management --Hypertension; moderate control, continue current antihypertensive Plan when necessary medications -- ascites; status post paracentesis Supportive care --Nonischemic cardiomyopathy; ejection fraction 30-35% 6 months ago Dialysis for fluid removal, continue current management --Abnormal EKG; junctional rhythm, cardiology evaluated the patient Adjust the medications --DVT prophylaxis; SCD Closely monitor the patient and adjust the management as needed. History Interval history: Patient seen and examined dialysis unit Medical records reviewed Patient is receiving hemodialysis No new complaints Vital signs noted Hospitalist Physical - Constitutional Vitals: Temp Pulse Resp BP Pulse Ox 97.2 F L 51 L 16 110/79 96 06/20/18 12:45 06/20/18 12:45 06/20/18 12:45 06/20/18 12:45 06/20/18 12:45 General appearance: Present: no acute distress, well-nourished, obese - EENT Eyes: Present: PERRL, EOM intact - Neck Neck: Present: supple, normal ROM - Respiratory Respiratory effort: normal Respiratory: bilateral: diminished, negative: rales, rhonchi, wheezing - Cardiovascular Rhythm: regular Heart Sounds: Present: S1 & S2 - Extremities Extremities: no ischemia, No edema - Abdominal General gastrointestinal: soft, non-tender, non-distended, normal bowel sounds - Integumentary Integumentary: Present: clear, warm - Psychiatric Psychiatric: appropriate mood/affect, cooperative - Neurologic Neurologic: CNII-XII intact, moves all extremities Results - Labs CBC & Chem 7: 06/19/18 12:52 06/20/18 14:00 Labs: Laboratory Last Values WBC 5.7 K/mm3 (4.5-11.0) 06/19/18 12:52 RBC 2.84 M/mm3 (3.65-5.03) L 06/19/18 12:52 Hgb 8.0 gm/dl (11.8-15.2) L 06/19/18 12:52 Hct 25.2 % (35.5-45.6) L 06/19/18 12:52 MCV 89 fl (84-94) 06/19/18 12:52 MCH 28 pg (28-32) 06/19/18 12:52 MCHC 32 % (32-34) 06/19/18 12:52 RDW 18.1 % (13.2-15.2) H 06/19/18 12:52 Plt Count 170 K/mm3 (140-440) 06/19/18 12:52 [place] % (Auto) Failure Analysis Technician 06/19/18 12:52 Add Manual Diff Complete 06/19/18 12:52 Total Counted 100 06/19/18 12:52 Seg Neuts % (Manual) 70.0 % (40.0-70.0) 06/19/18 12:52 Band Neutrophils % 0 % 06/19/18 12:52 Lymphocytes % (Manual) 13.0 % (13.4-35.0) L 06/19/18 12:52 Reactive Lymphs % (Man) 0 % 06/19/18 12:52 Monocytes % (Manual) 15.0 % (0.0-7.3) H 06/19/18 12:52 Eosinophils % (Manual) 2.0 % (0.0-4.3) 06/19/18 12:52 Basophils % (Manual) 0 % (0.0-1.8) 06/19/18 12:52 Metamyelocytes % 0 % 06/19/18 12:52 Myelocytes % 0 % 06/19/18 12:52 Promyelocytes % 0 % 06/19/18 12:52 Blast Cells % 0 % 06/19/18 12:52 Nucleated RBC % Not Reportable 06/19/18 12:52 Seg Neutrophils # Man 4.0 K/mm3 (1.8-7.7) 06/19/18 12:52 Band Neutrophils # 0.0 K/mm3 06/19/18 12:52 Lymphocytes # (Manual) 0.7 K/mm3 (1.2-5.4) L 06/19/18 12:52 Abs React Lymphs (Man) 0.0 K/mm3 06/19/18 12:52 Monocytes # (Manual) 0.9 K/mm3 (0.0-0.8) H 06/19/18 12:52 Eosinophils # (Manual) 0.1 K/mm3 (0.0-0.4) 06/19/18 12:52 Basophils # (Manual) 0.0 K/mm3 (0.0-0.1) 06/19/18 12:52 Metamyelocytes # 0.0 K/mm3 06/19/18 12:52 Myelocytes # 0.0 K/mm3 06/19/18 12:52 Promyelocytes # 0.0 K/mm3 06/19/18 12:52 Blast Cells # 0.0 K/mm3 06/19/18 12:52 WBC Morphology Not Reportable 06/19/18 12:52 Hypersegmented Neuts Not Reportable 06/19/18 12:52 Hyposegmented Neuts Not Reportable 06/19/18 12:52 Hypogranular Neuts Not Reportable 06/19/18 12:52 Smudge Cells Not Reportable 06/19/18 12:52 Toxic Granulation Not Reportable 06/19/18 12:52 Toxic Vacuolation Not Reportable 06/19/18 12:52 Dohle Bodies Not Reportable 06/19/18 12:52 Pelger-Huet Anomaly Not Reportable 06/19/18 12:52 Vin Rods Not Reportable 06/19/18 12:52 Platelet Estimate Consistent w auto 06/19/18 12:52 Clumped Platelets Not Reportable 06/19/18 12:52 Plt Clumps, EDTA Not Reportable 06/19/18 12:52 Large Platelets Not Reportable 06/19/18 12:52 Giant Platelets Not Reportable 06/19/18 12:52 Platelet Satelliting Not Reportable 06/19/18 12:52 Plt Morphology Comment Not Reportable 06/19/18 12:52 RBC Morphology Not Reportable 06/19/18 12:52 Dimorphic RBCs Not Reportable 06/19/18 12:52 Polychromasia Not Reportable 06/19/18 12:52 Hypochromasia Not Reportable 06/19/18 12:52 Poikilocytosis 1+ 06/19/18 12:52 Anisocytosis 1+ 06/19/18 12:52 Microcytosis Not Reportable 06/19/18 12:52 Macrocytosis Not Reportable 06/19/18 12:52 Spherocytes Not Reportable 06/19/18 12:52 Pappenheimer Bodies Not Reportable 06/19/18 12:52 Sickle Cells Not Reportable 06/19/18 12:52 Target Cells Few 06/19/18 12:52 Tear Drop Cells Few 06/19/18 12:52 Ovalocytes 1+ 06/19/18 12:52 Helmet Cells Not Reportable 06/19/18 12:52 [place] Bodies Not Reportable 06/19/18 12:52 Johnson Rings Not Reportable 06/19/18 12:52 [place] Cells Not Reportable 06/19/18 12:52 Bite Cells Not Reportable 06/19/18 12:52 Crenated Cell Not Reportable 06/19/18 12:52 Elliptocytes Not Reportable 06/19/18 12:52 Acanthocytes (Spur) Not Reportable 06/19/18 12:52 Rouleaux Not Reportable 06/19/18 12:52 Hemoglobin C Crystals Not Reportable 06/19/18 12:52 Schistocytes Not Reportable 06/19/18 12:52 Malaria parasites Not Reportable 06/19/18 12:52 Charbel Bodies Not Reportable 06/19/18 12:52 Hem Pathologist Commnt No 06/19/18 12:52 PT 16.8 Sec. (12.2-14.9) H 06/19/18 12:52 INR 1.32 (0.87-1.13) H 06/19/18 12:52 Sodium 135 mmol/L (137-145) L 06/20/18 14:00 Potassium 6.1 mmol/L (3.6-5.0) H* 06/20/18 14:00 Chloride 94.1 mmol/L (98-107) L 06/20/18 14:00 Carbon Dioxide 22 mmol/L (22-30) 06/20/18 14:00 Anion Gap 25 mmol/L 06/20/18 14:00 BUN 65 mg/dL (9-20) H 06/20/18 14:00 Creatinine 11.2 mg/dL (0.8-1.5) H 06/20/18 14:00 Estimated GFR 6 ml/min 06/20/18 14:00 BUN/Creatinine Ratio 6 % 06/20/18 14:00 Glucose 108 mg/dL (75-100) H 06/20/18 14:00 Calcium 8.8 mg/dL (8.4-10.2) 06/20/18 14:00
[2018-06-20] MEDS: PERCOCET 5/325 PO PRN (15:13)
[2018-06-20] MEDS ORDERED: NACL 0.9 (PRIMING MACHINE ONLY DIALYSIS) MC ONE (15:58)
--- NOTE | 2018-06-20 17:40 | Consultation ---
History of Present Illness - Reason for Consult Consult date: 06/20/18 end stage renal disease, hyperkalemia - History of Present Illness Mr. Ledbetter is a 48yo w/ ESRD on HD, recurrent ascites and fluid overload due to noncompliance with dialysis. He is admitted for right inguinal hernia rep air. Post operatively, patient was noted to have a junctional rhythm. Labs were collected and K was 6.1. Hemodialysis treatment was ordered for today. Past History Past Medical History: dialysis, ESRD, heart failure, hypertension, other (polycystic kidneys, ascites) Past Surgical History: Other (abdominal wall hernia repair, AVF) Social history: no significant social history Family history: no significant family history Medications and Allergies Allergies Allergy/AdvReac Type Severity Reaction Status Date / Time tramadol [From Ultram] AdvReac Dizziness Verified 03/05/18 15:30 Home Medications Medication Instructions Recorded Confirmed Last Taken Type Escitalopram [Lexapro] 10 mg PO DAILY #30 tablet 04/04/18 06/19/18 Unknown Rx Furosemide [Lasix] 40 mg PO BID #60 tablet 04/04/18 06/19/18 Unknown Rx hydrALAZINE [Apresoline TAB] 100 mg PO TID #90 tab 04/04/18 06/19/18 Unknown Rx Carvedilol [Coreg] 6.25 mg PO BID #60 tablet 05/18/18 06/19/18 Unknown Rx cloNIDine [Catapres] 0.1 mg PO TID #90 tablet 05/18/18 06/19/18 Unknown Rx Torsemide [Demadex] 20 mg PO DAILY 06/19/18 06/19/18 Unknown History oxyCODONE /ACETAMINOPHEN [Percocet 1 tab PO Q6HR PRN #20 06/20/18 Unknown Rx 5/325 mg] Active Meds: Active Medications Escitalopram Oxalate (Lexapro) 10 mg PO DAILY [facility] Heparin Sodium (Porcine) (Heparin) 5,000 unit SUB-Q Q8HR [facility] Last Admin: 06/20/18 05:23 Dose: Not Given Documented by: Hydralazine HCl (Apresoline) 50 mg PO TID [facility] Sodium Chloride (Nacl 0.9% 1000 Ml) 1,000 mls @ 42 mls/hr IV DIRECT FOSTER Last Admin: 06/20/18 07:30 Dose: 42 mls/hr Documented by: Midazolam HCl (Versed) 2 mg IV PREOP NR Stop: 06/20/18 23:59 Nifedipine (Procardia Xl) 60 mg PO Q12HR FOSTER Oxycodone/Acetaminophen (Percocet 5/325) 1 tab PO Q4H PRN PRN Reason: Pain , Severe (7-10) Last Admin: 06/20/18 15:13 Dose: 1 tab Documented by: Torsemide (Demadex) 40 mg PO QDAY FOSTER Review of Systems All systems: negative Exam - Vital Signs Vital signs: Vital Signs Temp Pulse Resp BP Pulse Ox 97.6 F 75 18 188/112 95 06/19/18 12:00 06/19/18 12:00 06/19/18 12:00 06/19/18 12:00 06/19/18 12:00 - General Appearance General appearance: well-developed, well-nourished Respiratory: Decreased Breath Sounds Heart: regular, S1S2 Gastrointestinal: Present: distended Neurologic: alert and oriented x3 Musculoskeletal: Present: other (+edema) Results - Lab Results 06/19/18 12:52 06/20/18 14:00 Most recent lab results Calcium 8.8 mg/dL (8.4-10.2) 06/20/18 14:00 Assessment and Plan Impression: * End stage renal disease * Hyperkalemia * s/p Right inguinal hernia repair with mesh * Abdominal ascites secondary to inadequate dialysis due to noncompliance --s/p paracentesis 4L on Jun 19 * Anemia secondary to ESRD * Secondary hyperPTH * Medical noncompliance - per dialysis clinic, patient is noncompliant w/ prescribed treatment time - stays no more than 2 hours. Last dialysis treatment was on Jun 16 Plan: * Per outpatient dialysis clinic, patient did not receive dialysis yesterday. Hemodialysis ordered for today due to junctional bradycardia and K 6.1. Upon arrival to dialysis room, patient refused treatment as prescribed. Patient s tates that he will run only 2 hours w/ no fluid removal. * Resume HD TTS per outpatient schedule * Diet per surgery * Epogen TIW prn
[2018-06-20] MEDS: LEXAPRO PO SCH (20:37)
[2018-06-20] MEDS: APRESOLINE PO SCH (20:38)
[2018-06-20] MEDS: DEMADEX PO SCH (20:38)
[2018-06-20] MEDS: PROCARDIA XL PO SCH (21:34)
[2018-06-21] MEDS: PERCOCET 5/325 PO PRN ×2 (04:09→11:04)
[2018-06-21] MEDS ORDERED: SYNTHROID PO SCH (06:00)
[2018-06-21 06:01] LABS: Basophils % (Auto) 0.6 % (0.0-1.8); Eosinophils # (Auto) 0.1 K/mm3 (0.0-0.4); Eosinophils % (Auto) 1.2 % (0.0-4.3); Hematocrit 26.2 % (35.5-45.6); Hemoglobin 8.5 gm/dl (11.8-15.2); Lymphocytes # (Auto) 0.8 K/mm3 (1.2-5.4); Lymphocytes % (Auto) 10.4 % (13.4-35.0); Mean Corpuscular HGB Conc 32 % (32-34); Mean Corpuscular Volume 87 fl (84-94); Monocytes # (Auto) 1.3 K/mm3 (0.0-0.8); Platelet Count 210 K/mm3 (140-440); Red Blood Count 3.01 M/mm3 (3.65-5.03); Red Cell Distribution Width 18.2 % (13.2-15.2)
[2018-06-21] MEDS: HEPARIN SUB-Q SCH ×2 (06:17→13:49)
[2018-06-21 06:21] LABS: Calcium 8.5 mg/dL (8.4-10.2)
[2018-06-21] MEDS: APRESOLINE PO SCH ×2 (08:00→13:49)
[2018-06-21] MEDS ORDERED: NACL 0.9% 100 ML IV PRN (09:21)
--- NOTE | 2018-06-21 09:24 | Progress Note ---
Assessment and Plan Impression: * End stage renal disease * Hyperkalemia * s/p Right inguinal hernia repair with mesh * Abdominal ascites secondary to inadequate dialysis due to noncompliance --s/p paracentesis 4L on Jun 19 * Anemia secondary to ESRD * Secondary hyperPTH * Medical noncompliance - per dialysis clinic, patient is noncompliant w/ prescribed treatment time - stays no more than 2 hours. Last dialysis treatment was on Jun 16 Plan: * Patient is s/p HD yesterday - did not complete full treatment AMA * Resume outupatient HD TTS schedule today * Diet per surgery * Epogen TIW prn Subjective Date of service: 06/21/18 Interval history: Contacted patient's outpatient dialysis clnic yesterday; patient did not receive dialysis on Monday. Hemodialysis ordered yesterday due to junctional bradycardia and K 6.1. However, patient refused treatment as prescribed. Patient stated that he would only treat for 2 hours w/o any fluid removal. Objective - Vital Signs Vital signs: Vital Signs - 12hr 06/20/18 06/21/18 06/21/18 23:45 04:34 05:12 Temperature 97.6 F 98.5 F Pulse Rate 61 59 L 59 L Respiratory 20 20 Rate Blood Pressure 132/76 118/71 O2 Sat by Pulse 92 93 Oximetry 06/21/18 06/21/18 08:31 08:32 Temperature 98.2 F Pulse Rate 61 60 Respiratory 18 Rate Blood Pressure 129/75 O2 Sat by Pulse 89 90 Oximetry - Lab 06/21/18 05:32 06/21/18 05:32 Most recent lab results Calcium 8.5 mg/dL (8.4-10.2) 06/21/18 05:32 Medications & Allergies - Medications Allergies/Adverse Reactions: Allergies tramadol [From Ultram] Adverse Reaction (Verified 03/05/18 15:30) Dizziness Home Medications: Home Medications Medication Instructions Recorded Confirmed Last Taken Type Escitalopram [Lexapro] 10 mg PO DAILY #30 tablet 04/04/18 06/19/18 Unknown Rx Furosemide [Lasix] 40 mg PO BID #60 tablet 04/04/18 06/19/18 Unknown Rx hydrALAZINE [Apresoline TAB] 100 mg PO TID #90 tab 04/04/18 06/19/18 Unknown Rx Carvedilol [Coreg] 6.25 mg PO BID #60 tablet 05/18/18 06/19/18 Unknown Rx cloNIDine [Catapres] 0.1 mg PO TID #90 tablet 05/18/18 06/19/18 Unknown Rx Torsemide [Demadex] 20 mg PO DAILY 06/19/18 06/19/18 Unknown History oxyCODONE /ACETAMINOPHEN [Percocet 1 tab PO Q6HR PRN #20 06/20/18 Unknown Rx 5/325 mg] Active Medications: Generic Name Dose Route Start Last Admin Trade Name Freq PRN Reason Stop Dose Admin Escitalopram Oxalate 10 mg 06/20/18 13:21 06/20/18 20:37 Lexapro PO Not Given DAILY FOSTER Heparin Sodium (Porcine) 5,000 unit 06/19/18 14:00 06/21/18 06:17 Heparin SUB-Q 5,000 unit Q8HR FOSTER Administration Hydralazine HCl 50 mg 06/20/18 14:00 06/20/18 20:38 Apresoline PO Not Given TID FOSTER Sodium Chloride 1,000 mls @ 42 mls/hr 06/20/18 08:00 06/20/18 07:30 Nacl 0.9% 1000 Ml IV 42 mls/hr DIRECT FOSTER Administration Sodium Chloride 100 mls @ 999 mls/hr 06/21/18 09:21 Nacl 0.9% IV JULIA PRN Hypotension Levothyroxine Sodium 50 mcg 06/21/18 06:00 06/21/18 06:21 Synthroid PO Not Given DAILY@0600 FOSTER Nifedipine 60 mg 06/20/18 22:00 06/20/18 21:34 Procardia Xl PO Not Given Q12HR FOSTER Oxycodone/Acetaminophen 1 tab 06/20/18 11:30 06/21/18 04:09 Percocet 5/325 PO 1 tab Q4H PRN Administration Pain , Severe (7-10) Torsemide 40 mg 06/20/18 14:00 06/20/18 20:38 Demadex PO Not Given QDAY FOSTER
--- NOTE | 2018-06-21 09:29 | Progress Note ---
Addendum entered and electronically signed by YELENA JO MD 06/21/18 17:32: Patient looks and feels better, stable cardiac status for discharge. We have recommended Procardia XL for blood pressure management. Hydralazine will be continued for afterload reduction in heart failure therapy. Due to his bradycardia and junctional rhythm, we have recommended temporary hold on carvedilol and other beta blockers, which can be restarted in the future once his heart rate is able to tolerate AV satish blockade. Original Note: Assessment and Plan Inguinal hernia repair Ascites s/p paracentesis End-stage renal disease on hemodialysis Nonischemic Cardiomyopathy EF 30-35% by echo 12/2017 no ischemia on MPI 12/2017 Hypertension Paroxysmal junctional rhythm -resolved coreg and clonidine discontinued TSH 21.6 hyperkalemia Recommendations: Fluid/sodium restriction. Dialysis for fluid removal. Ok for discharge home. Patient advised to f/u with his primary medical imaging tech, Dr Almaguer, in 3-5 days. Subjective Date of service: 06/21/18 Interval history: Stable sinus rhythm on telemetry monitoring. Objective Vital Signs Temp Pulse Resp BP BP Pulse Ox 06/21/18 08:32 60 90 06/21/18 08:31 98.2 F 61 18 129/75 89 06/21/18 05:12 98.5 F 59 L 20 118/71 93 06/21/18 04:34 59 L 06/20/18 23:45 97.6 F 61 20 132/76 92 06/20/18 19:51 97.8 F 68 20 120/80 95 06/20/18 18:08 63 98 06/20/18 17:30 67 16 180/106 06/20/18 17:15 93 H 167/95 06/20/18 17:00 64 164/94 06/20/18 16:45 65 170/96 06/20/18 16:30 64 166/94 06/20/18 16:15 63 150/86 06/20/18 16:00 98.2 F 56 L 18 156/82 125/81 06/20/18 15:45 55 L 134/85 06/20/18 15:30 56 L 16 125/81 06/20/18 14:35 56 L 96 06/20/18 14:34 56 L 125/81 97 06/20/18 14:25 57 L 118/77 98 06/20/18 12:45 97.2 F L 51 L 16 110/79 96 06/20/18 12:10 52 L 19 131/83 100 06/20/18 11:55 97.4 F L 52 L 19 136/66 100 06/20/18 11:40 53 L 14 120/79 100 06/20/18 11:25 96.8 F L 52 L 14 117/75 100 06/20/18 11:10 42 L 20 104/68 100 06/20/18 11:00 97.2 F L 52 L 18 110/69 06/20/18 10:55 43 L 14 124/78 97 06/20/18 10:40 43 L 15 123/75 98 06/20/18 10:25 43 L 19 104/69 97 06/20/18 10:20 43 L 17 108/68 99 06/20/18 10:15 44 L 16 106/66 99 06/20/18 10:10 97.4 F L 45 L 16 93/56 90 - Physical Examination General: No Apparent Distress HEENT: Positive: PERRL Cardiac: Positive: Reg Rate and Rhythm - Labs and Meds CBC 06/21/18 Range/Units 05:32 WBC 7.9 (4.5-11.0) K/mm3 RBC 3.01 L (3.65-5.03) M/mm3 Hgb 8.5 L (11.8-15.2) gm/dl Hct 26.2 L (35.5-45.6) % Plt Count 210 (140-440) K/mm3 Lymph # 0.8 L (1.2-5.4) K/mm3 [place] # 1.3 H (0.0-0.8) K/mm3 Eos # 0.1 (0.0-0.4) K/mm3 Baso # 0.0 (0.0-0.1) K/mm3 Comprehensive Metabolic Panel 06/20/18 06/20/18 06/21/18 Range/Units 14:00 19:48 05:32 Sodium 135 L 139 (137-145) mmol/L Potassium 6.1 H* 5.4 H 5.4 H (3.6-5.0) mmol/L Chloride 94.1 L 96.8 L (98-107) mmol/L Carbon Dioxide 22 24 (22-30) mmol/L BUN 65 H 50 H (9-20) mg/dL Creatinine 11.2 H 10.4 H (0.8-1.5) mg/dL Glucose 108 H 114 H (75-100) mg/dL Calcium 8.8 8.5 (8.4-10.2) mg/dL
[2018-06-21] MEDS: PROCARDIA XL PO SCH (09:48)
[2018-06-21] MEDS: LEXAPRO PO SCH (10:00)
[2018-06-21] MEDS: DEMADEX PO SCH (10:00)
--- NOTE | 2018-06-21 10:05 | Discharge Summary ---
Providers - Providers Date of Admission: 06/19/18 11:22 Date of discharge: 06/21/18 Attending physician: CORWIN SHETTY DO 06/19/18 12:23 Consult to Physician [CONS] Routine Comment: Consulting Provider: VINOD MONTGOMERY Physician Instructions: Reason For Exam: comanagement 06/20/18 08:18 Consult to Physician [CONS] Routine Comment: Consulting Provider: JAMAL LYNN Physician Instructions: Reason For Exam: ESRD Primary care physician: TIMOTHY LEE Hospitalization Reason for admission: right inguinal hernia Condition: Good Procedures: right inguinal hernia repair with mesh paracentesis Hospital course: The patient underwent paracentesis day before surgery. He underwent uneventful open right inguinal hernia repair with mesh. He was kept in hospital for observation per cardiology due to bradycardia and EKG changes. He also underwent hemodialysis. He was discharged home in stable condition after being cleared from cardiology standpoint. Disposition: TO HOME OR SELFCARE Time spent for discharge: 30 minutes Core Measure Documentation - Palliative Care Palliative Care/ Comfort Measures: Not Applicable - Core Measures Any of the following diagnoses?: none Exam - Physical Exam Narrative exam: Gen: AAOx3. NAD CV: S1, S2+ Resp: even and unlabored Abd: soft, protuberant, ascites, NT. no r/r/g Ext: right groin incision c/d/i. no erythema, TTP, or swelling. - Constitutional Vitals: Temp Pulse Resp BP Pulse Ox 98.2 F 60 18 129/75 90 06/21/18 08:31 06/21/18 08:32 06/21/18 08:31 06/21/18 08:31 06/21/18 08:32 Plan Activity: other (no heavy lifting greater than 10 lbs for 4-6 weeks) Diet: low cholesterol, low salt, renal Wound: open to air Additional Instructions: see printed discharge instructions. Follow up with: CORWIN SHETTY DO [Staff Physician] - 14 Days TIMOTHY LEE NP [Primary Care Provider] - 7 Days Prescriptions: Levothyroxine [Synthroid] 50 mcg PO DAILY@0600 #30 tablet NIFEdipine XL [Procardia Xl] 60 mg PO Q12HR #60 tablet oxyCODONE /ACETAMINOPHEN [Percocet 5/325 mg] 1 tab PO Q6HR PRN #20 PRN Reason: Pain , Severe (7-10) Torsemide [Demadex] 40 mg PO DAILY #30 tablet
--- NOTE | 2018-06-21 11:29 | Progress Note ---
Assessment and Plan Assessment and plan: --End-stage renal disease/hyperkalemia; on hemodialysis Nephrology following, hemodialysis per schedule --Status post right inguinal hernia repair with mesh; Continue postoperative care per surgery --Abnormal EKG; cardiology evaluates the patient Continue current management --Hypertension; moderate control, continue current antihypertensive Plan when necessary medications -- ascites; status post paracentesis Supportive care --Nonischemic cardiomyopathy; ejection fraction 30-35% 6 months ago Dialysis for fluid removal, continue current management --Abnormal EKG; junctional rhythm, cardiology evaluated the patient Adjust the medications --DVT prophylaxis; SCD Medically stable, continue to follow with primary care physician upon discharge for his medical needs History Interval history: Patient seen and examined medical records reviewed No new complaints, scheduled for hemodialysis Vital signs reviewed Hospitalist Physical - Constitutional Vitals: Temp Pulse Resp BP Pulse Ox 98.2 F 60 18 129/75 90 06/21/18 08:31 06/21/18 08:32 06/21/18 11:04 06/21/18 08:31 06/21/18 08:32 General appearance: Present: no acute distress, well-nourished, obese - EENT Eyes: Present: PERRL, EOM intact - Neck Neck: Present: supple, normal ROM - Respiratory Respiratory effort: normal Respiratory: bilateral: diminished, negative: rales, rhonchi, wheezing - Cardiovascular Rhythm: regular Heart Sounds: Present: S1 & S2 - Extremities Extremities: no ischemia, No edema - Abdominal General gastrointestinal: soft, non-tender, non-distended, normal bowel sounds - Integumentary Integumentary: Present: clear, warm - Psychiatric Psychiatric: appropriate mood/affect, cooperative - Neurologic Neurologic: CNII-XII intact, moves all extremities Results - Labs CBC & Chem 7: 06/21/18 05:32 06/21/18 05:32 Labs: Laboratory Last Values WBC 7.9 K/mm3 (4.5-11.0) 06/21/18 05:32 RBC 3.01 M/mm3 (3.65-5.03) L 06/21/18 05:32 Hgb 8.5 gm/dl (11.8-15.2) L 06/21/18 05:32 Hct 26.2 % (35.5-45.6) L 06/21/18 05:32 MCV 87 fl (84-94) 06/21/18 05:32 MCH 28 pg (28-32) 06/21/18 05:32 MCHC 32 % (32-34) 06/21/18 05:32 RDW 18.2 % (13.2-15.2) H 06/21/18 05:32 Plt Count 210 K/mm3 (140-440) 06/21/18 05:32 Lymph % (Auto) 10.4 % (13.4-35.0) L 06/21/18 05:32 [place] % (Auto) 16.0 % (0.0-7.3) H 06/21/18 05:32 Eos % (Auto) 1.2 % (0.0-4.3) 06/21/18 05:32 Baso % (Auto) 0.6 % (0.0-1.8) 06/21/18 05:32 Lymph # 0.8 K/mm3 (1.2-5.4) L 06/21/18 05:32 [place] # 1.3 K/mm3 (0.0-0.8) H 06/21/18 05:32 Eos # 0.1 K/mm3 (0.0-0.4) 06/21/18 05:32 Baso # 0.0 K/mm3 (0.0-0.1) 06/21/18 05:32 Add Manual Diff Complete 06/19/18 12:52 Total Counted 100 06/19/18 12:52 Seg Neutrophils % 71.8 % (40.0-70.0) H 06/21/18 05:32 Seg Neuts % (Manual) 70.0 % (40.0-70.0) 06/19/18 12:52 Band Neutrophils % 0 % 06/19/18 12:52 Lymphocytes % (Manual) 13.0 % (13.4-35.0) L 06/19/18 12:52 Reactive Lymphs % (Man) 0 % 06/19/18 12:52 Monocytes % (Manual) 15.0 % (0.0-7.3) H 06/19/18 12:52 Eosinophils % (Manual) 2.0 % (0.0-4.3) 06/19/18 12:52 Basophils % (Manual) 0 % (0.0-1.8) 06/19/18 12:52 Metamyelocytes % 0 % 06/19/18 12:52 Myelocytes % 0 % 06/19/18 12:52 Promyelocytes % 0 % 06/19/18 12:52 Blast Cells % 0 % 06/19/18 12:52 Nucleated RBC % Not Reportable 06/19/18 12:52 Seg Neutrophils # 5.7 K/mm3 (1.8-7.7) 06/21/18 05:32 Seg Neutrophils # Man 4.0 K/mm3 (1.8-7.7) 06/19/18 12:52 Band Neutrophils # 0.0 K/mm3 06/19/18 12:52 Lymphocytes # (Manual) 0.7 K/mm3 (1.2-5.4) L 06/19/18 12:52 Abs React Lymphs (Man) 0.0 K/mm3 06/19/18 12:52 Monocytes # (Manual) 0.9 K/mm3 (0.0-0.8) H 06/19/18 12:52 Eosinophils # (Manual) 0.1 K/mm3 (0.0-0.4) 06/19/18 12:52 Basophils # (Manual) 0.0 K/mm3 (0.0-0.1) 06/19/18 12:52 Metamyelocytes # 0.0 K/mm3 06/19/18 12:52 Myelocytes # 0.0 K/mm3 06/19/18 12:52 Promyelocytes # 0.0 K/mm3 06/19/18 12:52 Blast Cells # 0.0 K/mm3 06/19/18 12:52 WBC Morphology Not Reportable 06/19/18 12:52 Hypersegmented Neuts Not Reportable 06/19/18 12:52 Hyposegmented Neuts Not Reportable 06/19/18 12:52 Hypogranular Neuts Not Reportable 06/19/18 12:52 Smudge Cells Not Reportable 06/19/18 12:52 Toxic Granulation Not Reportable 06/19/18 12:52 Toxic Vacuolation Not Reportable 06/19/18 12:52 Dohle Bodies Not Reportable 06/19/18 12:52 Pelger-Huet Anomaly Not Reportable 06/19/18 12:52 Vin Rods Not Reportable 06/19/18 12:52 Platelet Estimate Consistent w auto 06/19/18 12:52 Clumped Platelets Not Reportable 06/19/18 12:52 Plt Clumps, EDTA Not Reportable 06/19/18 12:52 Large Platelets Not Reportable 06/19/18 12:52 Giant Platelets Not Reportable 06/19/18 12:52 Platelet Satelliting Not Reportable 06/19/18 12:52 Plt Morphology Comment Not Reportable 06/19/18 12:52 RBC Morphology Not Reportable 06/19/18 12:52 Dimorphic RBCs Not Reportable 06/19/18 12:52 Polychromasia Not Reportable 06/19/18 12:52 Hypochromasia Not Reportable 06/19/18 12:52 Poikilocytosis 1+ 06/19/18 12:52 Anisocytosis 1+ 06/19/18 12:52 Microcytosis Not Reportable 06/19/18 12:52 Macrocytosis Not Reportable 06/19/18 12:52 Spherocytes Not Reportable 06/19/18 12:52 Pappenheimer Bodies Not Reportable 06/19/18 12:52 Sickle Cells Not Reportable 06/19/18 12:52 Target Cells Few 06/19/18 12:52 Tear Drop Cells Few 06/19/18 12:52 Ovalocytes 1+ 06/19/18 12:52 Helmet Cells Not Reportable 06/19/18 12:52 [place] Bodies Not Reportable 06/19/18 12:52 [place] Rings Not Reportable 06/19/18 12:52 [place] Cells Not Reportable 06/19/18 12:52 Bite Cells Not Reportable 06/19/18 12:52 Crenated Cell Not Reportable 06/19/18 12:52 Elliptocytes Not Reportable 06/19/18 12:52 Acanthocytes (Spur) Not Reportable 06/19/18 12:52 Rouleaux Not Reportable 06/19/18 12:52 Hemoglobin C Crystals Not Reportable 06/19/18 12:52 Schistocytes Not Reportable 06/19/18 12:52 Malaria parasites Not Reportable 06/19/18 12:52 [place] Bodies Not Reportable 06/19/18 12:52 Hem Pathologist Commnt No 06/19/18 12:52 PT 16.8 Sec. (12.2-14.9) H 06/19/18 12:52 INR 1.32 (0.87-1.13) H 06/19/18 12:52 Sodium 139 mmol/L (137-145) 06/21/18 05:32 Potassium 5.4 mmol/L (3.6-5.0) H 06/21/18 05:32 Chloride 96.8 mmol/L (98-107) L 06/21/18 05:32 Carbon Dioxide 24 mmol/L (22-30) 06/21/18 05:32 Anion Gap 24 mmol/L 06/21/18 05:32 BUN 50 mg/dL (9-20) H 06/21/18 05:32 Creatinine 10.4 mg/dL (0.8-1.5) H 06/21/18 05:32 Estimated GFR 6 ml/min 06/21/18 05:32 BUN/Creatinine Ratio 5 % 06/21/18 05:32 Glucose 114 mg/dL (75-100) H 06/21/18 05:32 Calcium 8.5 mg/dL (8.4-10.2) 06/21/18 05:32 TSH 21.660 mlU/mL (0.270-4.200) H 06/20/18 16:50 Free T4 0.92 ng/dL (0.76-1.46) 06/20/18 16:50
[2018-06-21] MEDS ORDERED: NACL 0.9 (PRIMING MACHINE ONLY DIALYSIS) MC ONE (12:51)
[2018-06-21 16:30] VITALS: BP 132/71
== END 2018-06-21 17:30 | disposition home or self-care (01) | DRG 350 ==
LOC: 3B-SURG 11:22 → EDSTATUS 06-20 09:30 → OBSVTOIN 06-21 11:06
PROVIDERS: ADMIT Surgery; ATTEND Surgery
PROC: 0W9G3ZZ Drainage of Peritoneal Cavity, Percutaneous Approach (ICD-10-PCS; 2018-06-19)
PROC: 0YU50JZ Supplement Right Inguinal Region with Synthetic Substitute, Open Approach (ICD-10-PCS; principal; 2018-06-20)
PROC: 5A1D70Z Performance of Urinary Filtration, Intermittent, Less than 6 Hours Per Day (ICD-10-PCS; 2018-06-20)
PROC: 5A1D70Z Performance of Urinary Filtration, Intermittent, Less than 6 Hours Per Day (ICD-10-PCS; 2018-06-21)
DX: K40.90 Unilateral inguinal hernia, without obstruction or gangrene, not specified as recurrent (principal); N18.6 End stage renal disease; I13.2 Hypertensive heart and chronic kidney disease with heart failure and with stage 5 chronic kidney disease, or end stage renal disease; R18.8 Other ascites; I50.40 Unspecified combined systolic (congestive) and diastolic (congestive) heart failure; I42.8 Other cardiomyopathies; N25.81 Secondary hyperparathyroidism of renal origin; E66.9 Obesity, unspecified; E87.5 Hyperkalemia; D63.1 Anemia in chronic kidney disease; R94.31 Abnormal electrocardiogram [ECG] [EKG]; Z99.2 Dependence on renal dialysis; Z79.899 Other long term (current) drug therapy; Z68.35 Body mass index [BMI] 35.0-35.9, adult; Z82.49 Family history of ischemic heart disease and other diseases of the circulatory system; Z91.15 Patient's noncompliance with renal dialysis
CPT/HCPCS: 36415; 49083; 80048; 84132; 84439; 84443; 85007; 85025; 85610; 88304; 93005; 93010; G0378; C1781; G0379; J0690; J1170; J1610; J1644; J2405; J2704; J2710; J7030

== ENCOUNTER 2018-07-22 23:57 | Inpatient (IN) | payer MEDICARE ==
[2018-07-23] MEDS ORDERED: ASPIRIN PO ONE (00:18)
[2018-07-23] MEDS ORDERED: CATAPRES PO ONE (00:30)
[2018-07-23] MEDS ORDERED: NORCO 5/325 PO ONE (00:30)
[2018-07-23] MEDS ORDERED: XOPENEX IH ONE (00:36)
--- NOTE | 2018-07-23 00:43 | Emergency Department Report ---
HPI - General Chief Complaint: Chest Pain Time Seen by Provider: 07/23/18 00:21 - HPI HPI: Room 25 The patient is a 48-year-old male presenting with chief complaint of chest congestion and cough. The patient states for the past 2 days she's had a cough that has been nonproductive. Patient states whenever he coughs he has substernal chest pain and feels as though someone standing on his chest. Patient is to shortness of breath and nausea but denies vomiting or diaphoresis. She has sick family members with the same symptoms. Patient currently gets his pain score of 8/10. The patient states he had a normal cardiac catheterization last month at [facility] Location: Chest, lungs Duration: 2 days Quality: Pain Severity:8/10 Modifying factors: [see above] Context: [see above] Mode of transportation: [not driving] ED Past Medical Hx - Past Medical History Previous Medical History?: Yes Hx Hypertension: Yes (2012) Hx Congestive Heart Failure: Yes (diastolic - CHRONIC , CARDIOMYOPATHY) Hx GERD: Yes Hx Renal Disease: Yes (ESRD, dialysis T, , Mon) Additional medical history: Abdominal Hernias, right groin hernia - Surgical History Past Surgical History?: Yes Additional Surgical History: dialysis access left arm - Family History Family history: no significant - Social History Smoking Status: Never Smoker Substance Use Type: None (denies illicit drug use) - Medications Home Medications: Home Medications Medication Instructions Recorded Confirmed Last Taken Type Escitalopram [Lexapro] 10 mg PO DAILY #30 tablet 04/04/18 06/19/18 Unknown Rx Furosemide [Lasix] 40 mg PO BID #60 tablet 04/04/18 06/19/18 Unknown Rx hydrALAZINE [Apresoline TAB] 100 mg PO TID #90 tab 04/04/18 06/19/18 Unknown Rx Carvedilol [Coreg] 6.25 mg PO BID #60 tablet 05/18/18 06/19/18 Unknown Rx cloNIDine [Catapres] 0.1 mg PO TID #90 tablet 05/18/18 06/19/18 Unknown Rx oxyCODONE /ACETAMINOPHEN [Percocet 1 tab PO Q6HR PRN #20 06/20/18 Unknown Rx 5/325 mg] Levothyroxine [Synthroid] 50 mcg PO DAILY@0600 #30 tablet 06/21/18 Unknown Rx NIFEdipine XL [Procardia Xl] 60 mg PO Q12HR #60 tablet 06/21/18 Unknown Rx Torsemide [Demadex] 40 mg PO DAILY #30 tablet 06/21/18 Unknown Rx ED Review of Systems ROS: Stated complaint: MADDIE/CHEST PAIN/COUGH X2DAYS Other details as noted in HPI Constitutional: denies: fever Eyes: denies: eye pain ENT: congestion. denies: throat pain Respiratory: cough, shortness of breath Cardiovascular: chest pain Endocrine: no symptoms reported Gastrointestinal: nausea. denies: vomiting Genitourinary: denies: testicular pain Musculoskeletal: denies: back pain Neurological: denies: headache Physical Exam - Physical Exam Vital Signs: Vital Signs 07/23/18 00:12 Temperature 98.1 F Pulse Rate 89 Respiratory 18 Rate Blood Pressure 205/113 [Right] O2 Sat by Pulse 100 Oximetry Physical Exam: GENERAL: The patient is well-developed well-nourished male lying on stretcher not appear to be in acute distress. [] HEENT: Normocephalic. Atraumatic. Extraocular motions are intact. Patient has moist mucous membranes. NECK: Supple. Trachea midline CHEST/LUNGS: Clear to auscultation bilaterally except for transmitted upper airway sounds. There is no respiratory distress noted. HEART/CARDIOVASCULAR: Regular. There is no tachycardia. There is no gallop rub or murmur. ABDOMEN: Abdomen is soft, nontender. Patient has normal bowel sounds. There is no abdominal distention. SKIN: There is no rash. There is no diaphoresis. NEURO: The patient is awake, alert, and oriented. The patient is cooperative. The patient has normal speech MUSCULOSKELETAL: There is no evidence of acute injury. ED Course Vital Signs 07/23/18 00:12 Temperature 98.1 F Pulse Rate 89 Respiratory 18 Rate Blood Pressure 205/113 [Right] O2 Sat by Pulse 100 Oximetry ED Medical Decision Making - Lab Data Result diagrams: 07/23/18 00:40 07/23/18 00:40 Laboratory Tests 07/23/18 07/23/18 07/23/18 00:40 00:40 00:40 WBC 7.6 RBC 3.37 L Hgb 9.4 L Hct 29.2 L MCV 87 MCH 28 MCHC 32 RDW 19.6 H Plt Count 194 Lymph % (Auto) 25.6 [place] % (Auto) 14.5 H Eos % (Auto) 2.2 Baso % (Auto) 0.8 Lymph # 1.9 [place] # 1.1 H Eos # 0.2 Baso # 0.1 Seg Neutrophils % 56.9 Seg Neutrophils # 4.3 PT 16.0 H INR 1.20 H Sodium 138 Potassium 5.1 H Chloride 98.2 Carbon Dioxide 22 Anion Gap 23 BUN 64 H Creatinine 11.1 H Estimated GFR 6 BUN/Creatinine Ratio 6 Glucose 99 Calcium 8.8 Troponin T 0.619 H* - EKG Data -: EKG Interpreted by Me EKG shows normal: sinus rhythm Rate: normal - EKG Data When compared to previous EKG there are: previous EKG unavailable Interpretation: other (no ischemic changes seen) - Radiology Data Radiology results: report reviewed (chest x-ray), image reviewed (chest x-ray) interpreted by me: Chest [id number]. No focal infiltrates, no pneumothorax Report Status: Finalized [facility] [address] [place] [address] XRay Report Signed Patient: RENALDO WAYNE MR#: [id number] : 1970 Acct:[id number] Age/Sex: 48 / M ADM Date: 07/22/18 Loc: ED Attend ing Dr: Ordering Physician: DARWIN COOLEY MD Date of Service: 07/23/18 Procedure(s): XR chest 1V ap Accession Number(s): [id number] cc: DARWIN COOLEY MD Fluoro Time In Minutes: FINAL REPORT PROCEDURE: XR CHEST 1V AP TECHNIQUE: Chest radiograph anteroposterior view. CPT 26455 HISTORY: chest pain, cough CO MPARISON: No prior studies are available for comparison. FINDINGS: Heart: Heart is enlarged Mediastinum/Vessels: Normal. Lungs/Pleural space: There is suboptimal inspiration. There are no infiltrates, effusions or pneumothoraces.. Bony thorax: No acute osseous abnormality. Life support devices: None. IMPRESSION: Heart is enlarged There is suboptimal inspiration. There are no infiltrates, effusions or pneumothoraces.. . Transcribed By: CO Dictated By: AYAKA BARR MD Electronically Authenticated By: AYAKA BARR MD Signed Date/Time: 07/23/18153 DD/ 1 TD/TT: 07/23/18151 - Differential Diagnosis pneumonia, bronchitis, Critical care attestation.: If time is entered above; I have spent that time in minutes in the direct care of this critically ill patient, excluding procedure time. ED Disposition Clinical Impression: Chest pain, Hypertensive urgency, Cough, End stage renal disease Disposition: OP ADMIT IP TO THIS HOSP Is pt being admited?: Yes Does the pt Need Aspirin: Yes Condition: Fair Instructions: Chest Pain (ED) Referrals: ZHANE VAZQUEZ MD [Primary Care Provider] - 3-5 Days Time of Disposition: 02:10 (hospitalist paged (Dr Mahnaz Velasco))
[2018-07-23 01:00] LABS: Basophils % (Auto) 0.8 % (0.0-1.8); Eosinophils % (Auto) 2.2 % (0.0-4.3); Hematocrit 29.2 % (35.5-45.6); Hemoglobin 9.4 gm/dl (11.8-15.2); Lymphocytes # (Auto) 1.9 K/mm3 (1.2-5.4); Lymphocytes % (Auto) 25.6 % (13.4-35.0); Mean Corpuscular HGB Conc 32 % (32-34); Mean Corpuscular Volume 87 fl (84-94); Monocytes # (Auto) 1.1 K/mm3 (0.0-0.8); Monocytes % (Auto) 14.5 % (0.0-7.3); Platelet Count 194 K/mm3 (140-440); Red Blood Count 3.37 M/mm3 (3.65-5.03); Red Cell Distribution Width 19.6 % (13.2-15.2)
[2018-07-23 01:01] LABS: Basophils # (Auto) 0.1 K/mm3 (0.0-0.1); Eosinophils # (Auto) 0.2 K/mm3 (0.0-0.4)
[2018-07-23 01:02] LABS: INR 1.2 (0.87-1.13)
[2018-07-23 01:14] LABS: Calcium 8.8 mg/dL (8.4-10.2)
--- NOTE | 2018-07-23 01:54 | XRay Report ---
FINAL REPORT PROCEDURE: XR CHEST 1V AP TECHNIQUE: Chest radiograph anteroposterior view. CPT 55669 HISTORY: chest pain, cough COMPARISON: No prior studies are available for comparison. FINDINGS: Heart: Heart is enlarged Mediastinum/Vessels: Normal. Lungs/Pleural space: There is suboptimal inspiration. There are no infiltrates, effusions or pneumoth oraces.. Bony thorax: No acute osseous abnormality. Life support devices: None. IMPRESSION: Heart is enlarged There is suboptimal inspiration. There are no infiltrates, effusions or pneumothoraces.. .
[2018-07-23] MEDS ORDERED: NITRO-BID 2% TP ONE (02:00)
[2018-07-23 03:02] LABS: Chol/HDL Ratio 2.55 %
--- NOTE | 2018-07-23 03:44 | History and Physical Report ---
History of Present Illness Date of examination: 07/23/18 History of present illness: 48-year-old man with a history of polycystic kidney disease, hypertension, end- stage renal disease comes emergency room chest pain in the epigastric area that started yesterday, described as someone standing on his chest, intensity 5/10, no radiation, he cannot identify any aggravating or relieving factors. He does stress tests one month ago, admits to nausea, shortness breath, palpitation, diaphoresis. Status post paracentesis Monday Review Of Systems: Constitutional: no Fever, no weight loss Ears, eyes, nose, mouth and throat: no nasal congestion, no nasal discharge, no sinus pressure, blurry vision, diplopia Neck: No neck pain or rigidity. Cardiovascular: chest pain, orthopnea, palpitations Respiratory: No shortness of breath, cough Gastrointestinal: abdominal pain, hematochezia Genitourinary : no dysuria, frequency Musculoskeletal: no muscle ache Integumentary: no rash, no pruritis Neurological: no parathesias, focal weakness Endocrine: no cold or heat intolerance, no polyuria or polydipsia Hematologic/Lymphatic: no easy bruising, no easy bleeding, no gland swelling Allergic/Immunologic: no urticaria, no angioedema. PAST MEDICAL HISTORY:polycystic kidney disease, hypertension, end-stage renal disease PAST SURGICAL HISTORY: AV fistula, hernia repair FAMILY HISTORY: hypertension SOCIAL HISTORY: Denies alcohol, tobacco, drug Medications and Allergies Allergies Allergy/AdvReac Type Severity Reaction Status Date / Time tramadol [From Ultram] AdvReac Dizziness Verified 03/05/18 15:30 Home Medications Medication Instructions Recorded Confirmed Last Taken Type Escitalopram [Lexapro] 10 mg PO DAILY #30 tablet 04/04/18 07/23/18 07/22/18 Rx Furosemide [Lasix] 40 mg PO BID #60 tablet 04/04/18 07/23/18 07/22/18 Rx hydrALAZINE [Apresoline TAB] 100 mg PO TID #90 tab 04/04/18 07/23/18 07/22/18 Rx Carvedilol [Coreg] 6.25 mg PO BID #60 tablet 05/18/18 07/23/18 07/22/18 Rx cloNIDine [Catapres] 0.1 mg PO TID #90 tablet 05/18/18 07/23/18 07/22/18 Rx oxyCODONE /ACETAMINOPHEN [Percocet 1 tab PO Q6HR PRN #20 06/20/18 Unknown Rx 5/325 mg] Levothyroxine [Synthroid] 50 mcg PO DAILY@0600 #30 tablet 06/21/18 07/23/18 07/22/18 Rx NIFEdipine XL [Procardia Xl] 60 mg PO Q12HR #60 tablet 06/21/18 07/23/18 07/22/18 Rx Torsemide [Demadex] 40 mg PO DAILY #30 tablet 06/21/18 07/23/18 07/22/18 Rx Exam - Physical Exam Narrative exam: Gen. appearance: Patient lying in bed in no acute distress HEENT: Normocephalic/atraumatic, pupils equal round reactive to light, extra alkaline movement intact, no scleral icterus, no JVD or thyromegaly or nodule, neck is supple, mucous membrane moist, no erythema or exudate Heart: S1-S2, regular rate and rhythm Lungs: Clrack[place]bilateral breathing comfortable Abdomen: Positive bowel sounds, nontender, nondistended, no organomegaly Extremities: + edema, no cyanosis, clubbing Neuro:: Oriented 3 , cranial nerves II-12 intact, speech, motor intact Skin: No rash, nodules, warm dry - Constitutional Vitals: Temp Pulse Resp BP Pulse Ox 98.1 F 72 21 174/99 100 07/23/18 00:12 07/23/18 01:41 07/23/18 01:41 07/23/18 01:41 07/23/18 00:12 Results - Labs CBC & Chem 7: 07/23/18 00:40 07/23/18 00:40 Labs: Abnormal lab results 07/23/18 07/23/18 07/23/18 Range/Units 00:40 00:40 00:40 RBC 3.37 L (3.65-5.03) M/mm3 Hgb 9.4 L (11.8-15.2) gm/dl Hct 29.2 L (35.5-45.6) % RDW 19.6 H (13.2-15.2) % [place] % (Auto) 14.5 H (0.0-7.3) % [place] # 1.1 H (0.0-0.8) K/mm3 PT 16.0 H (12.2-14.9) Sec. INR 1.20 H (0.87-1.13) Potassium 5.1 H (3.6-5.0) mmol/L BUN 64 H (9-20) mg/dL Creatinine 11.1 H (0.8-1.5) mg/dL Troponin T 0.619 H* (0.00-0.029) ng/mL Assessment and Plan Assessment Chest pain Hypertension ESRD Polycystic kidney disease Plan Admit to medicine Consult renal for dialysis Check cardiac enzymes, consult cardiology DVT prophylaxis with SCD
[2018-07-23] MEDS ORDERED: APRESOLINE ONE (08:04)
[2018-07-23] MEDS ORDERED: CATAPRES ONE (08:04)
[2018-07-23] MEDS: APRESOLINE PO SCH ×3 (08:28→21:13)
[2018-07-23] MEDS: CATAPRES PO SCH ×3 (08:28→21:12)
--- NOTE | 2018-07-23 09:26 | Event Note ---
Date: 07/23/18 48-year-old man with a history of polycystic kidney disease, hypertension, end- stage renal disease comes emergency room chest pain in the epigastric area that started yesterday. monitor troponin, consulted cardiology/renal. ordered paracenthesis for ascitis.
[2018-07-23] MEDS: LASIX PO SCH ×2 (10:41→21:14)
[2018-07-23] MEDS: LOVENOX SUB-Q SCH (10:42)
[2018-07-23] MEDS: COREG PO SCH ×2 (10:42→21:13)
[2018-07-23] MEDS: LEXAPRO PO SCH (10:42)
--- NOTE | 2018-07-23 11:06 | Consultation ---
Addendum entered and electronically signed by YELENA JO MD 07/23/18 13:54: Musculoskeletal chest pain following protracted bouts of coughing. No new cardiac complaints. We'll continue medical therapy for ischemic cardiomyopathy on chronic left ventricular systolic dysfunction. Original Note: History of Present Illness Consult date: 07/23/18 Consult reason: chest pain History of present illness: Patient has a history of hypothyroidism, hypertension, end-stage renal disease on hemodialysis, chronic anemia and ascities requiring frequent paracentesis. He also has a dilated non-ischemic cardiomyopathy by non-invasive cardiac stress thallium test six month ago that documents a normal perfusion scan but a decreased left ventricular systolic function with an ejection fraction 30-35% by echocardiogram. Patient was brought to this hospital with complaints of shortness of breath, coughs and congestion ongoing for 2 days. In addition, patient reports chest pain associated with coughs. Patient remains afebrile. Chest x-ray documents cardiomegaly with suboptimal inspiration. His ECG is benign, a normal sinus rhythm. Medications and Allergies Allergies Allergy/AdvReac Type Severity Reaction Status Date / Time tramadol [From Ultram] AdvReac Dizziness Verified 03/05/18 15:30 Home Medications Medication Instructions Recorded Confirmed Last Taken Type hydrALAZINE [Apresoline TAB] 100 mg PO TID #90 tab 04/04/18 07/23/18 07/22/18 Rx cloNIDine [Catapres] 0.1 mg PO TID #90 tablet 05/18/18 07/23/18 07/22/18 Rx Active Meds: Active Medications Carvedilol (Coreg) 6.25 mg PO BID [facility] Last Admin: 07/23/18 10:42 Dose: 6.25 mg Documented by: Clonidine HCl (Catapres) 0.1 mg PO TID [facility] Last Admin: 07/23/18 08:28 Dose: 0.1 mg Documented by: Enoxaparin Sodium (Lovenox) 30 mg SUB-Q QDAY [facility] Last Admin: 07/23/18 10:42 Dose: 30 mg Documented by: Escitalopram Oxalate (Lexapro) 10 mg PO DAILY [facility] Last Admin: 07/23/18 10:42 Dose: 10 mg Documented by: Furosemide (Lasix) 40 mg PO BID [facility] Last Admin: 07/23/18 10:41 Dose: 40 mg Documented by: Hydralazine HCl (Apresoline) 100 mg PO TID [facility] Last Admin: 07/23/18 08:28 Dose: 100 mg Documented by: Levothyroxine Sodium (Synthroid) 50 mcg PO DAILY@0600 [place] Nifedipine (Procardia Xl) 60 mg PO Q12H [facility] Physical Examination Vital Signs Pulse Resp 81 15 07/23/18 00:11 07/23/18 00:11 General appearance: no acute distress HEENT: Positive: PERRL Neck: Positive: trachea midline Cardiac: Positive: Reg Rate and Rhythm Lungs: Positive: Decreased Breath Sounds Abdomen: Positive: Distended Extremities: Present: edema Results 07/23/18 00:40 07/23/18 00:40 Coagulation 07/23/18 Range/Units 00:40 PT 16.0 H (12.2-14.9) Sec. INR 1.20 H (0.87-1.13) Lipids 07/23/18 Range/Units 00:40 Triglycerides 46 (2-149) mg/dL Cholesterol 120 (50-199) mg/dL HDL Cholesterol 47 (40-59) mg/dL Cholesterol/HDL Ratio 2.55 % CBC 07/23/18 Range/Units 00:40 WBC 7.6 (4.5-11.0) K/mm3 RBC 3.37 L (3.65-5.03) M/mm3 Hgb 9.4 L (11.8-15.2) gm/dl Hct 29.2 L (35.5-45.6) % Plt Count 194 (140-440) K/mm3 Lymph # 1.9 (1.2-5.4) K/mm3 [place] # 1.1 H (0.0-0.8) K/mm3 Eos # 0.2 (0.0-0.4) K/mm3 Baso # 0.1 (0.0-0.1) K/mm3 Comprehensive Metabolic Panel 07/23/18 Range/Units 00:40 Sodium 138 (137-145) mmol/L Potassium 5.1 H (3.6-5.0) mmol/L Chloride 98.2 (98-107) mmol/L Carbon Dioxide 22 (22-30) mmol/L BUN 64 H (9-20) mg/dL Creatinine 11.1 H (0.8-1.5) mg/dL Glucose 99 (75-100) mg/dL Calcium 8.8 (8.4-10.2) mg/dL Assessment and Plan Acute Bronchitis Ascites End-stage renal disease on hemodialysis Nonischemic Cardiomyopathy EF 30-35% by echo 12/2017 no ischemia on MPI 12/2017 Hypertension Hypothyroidism Recommendations: Fluid/sodium restriction. Dialysis for fluid removal. Medical therapy for nonischemic cardiomyopathy.
[2018-07-23 11:27] LABS: Creatine Kinase MB 8.7 ng/mL (0.0-4.0)
[2018-07-23] MEDS ORDERED: MORPHINE IV PRN (11:43)
[2018-07-23] MEDS: PROCARDIA XL PO SCH ×2 (12:38→23:01)
[2018-07-23] MEDS: PERCOCET 5/325 PO PRN ×2 (12:38→21:13)
--- NOTE | 2018-07-23 12:58 | Consultation ---
History of Present Illness - History of Present Illness Thank you for the consultation ! Patient was evaluated today My assessment and plan are as follows; end-stage renal disease patient is currently on maintenance hemodialysis on Monday, he does not want more than 2-3 kg fluid removal he does not want to dialyze more than 3 hours I believe patient requires longer treatment due to BMI and volume issues: Patient refuses to do so: Noted to be very noncompliant Outpatient dialysis is currently done at [facility] he established with Dr. Guo Anemia in end-stage renal disease erythropoietin periodically Mild hyperkalemia to follow Chronic ascites on periodic paracentesis Abnormal cardiac enzyme in a patient with very high risk for adverse cardiovascular outcomes, and is currently being followed by cardiology Cardiomyopathy ejection fraction 30-35% by echocardiogram Secondary hyperparathyroidism: Check phosphorus and PTH level periodically Prognosis guarded to poor We will continue to follow and make recommendations from renal standpoint. Thank you for the consultation Author: Chan Smith M.D. [facility], [address] [place] [address] Tel; [phone] Source of information: From patient an old record History of present illness Patient is a 48-year-old -[place] male who has been admitted here for evaluation of chest pain and epigastric pain, patient is currently dialysis dependent and is being dialyzed on Monday he does have issues with chronic ascites and periodically does need paracentesis. He has also been noted to have abnormal cardiac enzyme Patient is very poorly compliant with his diet and lifestyle. He dialyzes only 3 hours and does not allow more than 3 L of ultrafiltration Past medical history ESRD Hypertension Ascites Chronic noncompliance Anemia and end-stage renal disease Secondary hyperparathyroidism Reviewed from chart Family history Reviewed from chart Allergies reviewed from chart Problem medication present medication: Reviewed from chart Review of system positive for epigastric chest pain fluid retention and abdominal distention chronic ascites Patient is a very poor historian All other review of system negative Physical examination Vitals: Reviewed General: No acute distress HEENT: Oral mucosa moist no pallor or icterus Neck: Supple without any JVD thyromegaly or nodular mass Chest: Clear to auscultation Heart: Regular rate and rhythm S1-S2 heard no S3-S4 Abdomen: Soft nontender, bowel sounds present no renal bruit no suprapubic masses no CVA tenderness noted Patient does have significant ascites, distended abdomen Extremity: Minimal edema dry skin no peripheral cyanosis Endocrine: Thyroid not enlarged Psychiatric: No agitation and aggression noted Musculoskeletal: No joint effusion noted Labs and x-rays: Reviewed from this admission Medications and Allergies Allergies Allergy/AdvReac Type Severity Reaction Status Date / Time tramadol [From Ultram] AdvReac Dizziness Verified 03/05/18 15:30 Home Medications Medication Instructions Recorded Confirmed Last Taken Type hydrALAZINE [Apresoline TAB] 100 mg PO TID #90 tab 04/04/18 07/23/18 07/22/18 Rx cloNIDine [Catapres] 0.1 mg PO TID #90 tablet 05/18/18 07/23/18 07/22/18 Rx Active Meds: Active Medications Carvedilol (Coreg) 6.25 mg PO BID [facility] Last Admin: 07/23/18 10:42 Dose: 6.25 mg Documented by: Clonidine HCl (Catapres) 0.1 mg PO TID [facility] Last Admin: 07/23/18 08:28 Dose: 0.1 mg Documented by: Enoxaparin Sodium (Lovenox) 30 mg SUB-Q QDAY [facility] Last Admin: 07/23/18 10:42 Dose: 30 mg Documented by: Escitalopram Oxalate (Lexapro) 10 mg PO DAILY [facility] Last Admin: 07/23/18 10:42 Dose: 10 mg Documented by: Furosemide (Lasix) 40 mg PO BID [facility] Last Admin: 07/23/18 10:41 Dose: 40 mg Documented by: Hydralazine HCl (Apresoline) 100 mg PO TID [facility] Last Admin: 07/23/18 08:28 Dose: 100 mg Documented by: Levothyroxine Sodium (Synthroid) 50 mcg PO DAILY@0600 [facility] Morphine Sulfate (Morphine) 2 mg IV Q4H PRN PRN Reason: Pain , Severe (7-10) Nifedipine (Procardia Xl) 60 mg PO Q12H [facility] Last Admin: 07/23/18 12:38 Dose: 60 mg Documented by: Oxycodone/Acetaminophen (Percocet 5/325) 1 tab PO Q6H PRN PRN Reason: Pain, Moderate (4-6) Last Admin: 07/23/18 12:38 Dose: 1 tab Documented by: Exam - Vital Signs Vital signs: Vital Signs Pulse Resp 81 15 07/23/18 00:11 07/23/18 00:11 Results - Lab Results 07/24/18 05:50 07/24/18 05:50 Most recent lab results Calcium 8.8 mg/dL (8.4-10.2) 07/23/18 00:40
[2018-07-23 15:15] LABS: Creatine Kinase MB 9.7 ng/mL (0.0-4.0)
[2018-07-23] MEDS ORDERED: NACL 0.9% 100 ML IV PRN (15:39)
[2018-07-24] MEDS ORDERED: SYNTHROID PO SCH (06:00)
[2018-07-24 06:09] LABS: Hematocrit 24.9 % (35.5-45.6); Hemoglobin 8.1 gm/dl (11.8-15.2); Mean Corpuscular HGB Conc 33 % (32-34); Mean Corpuscular Volume 85 fl (84-94); Platelet Count 166 K/mm3 (140-440); Red Blood Count 2.92 M/mm3 (3.65-5.03); Red Cell Distribution Width 19.2 % (13.2-15.2)
[2018-07-24 06:29] LABS: Calcium 8.8 mg/dL (8.4-10.2)
[2018-07-24 08:23] LABS: Total Cells Counted 100
[2018-07-24 08:26] LABS: Anisocytosis 1+; Ovalocytes 1+; Platelet Estimate Consistent w Auto; Poikilocytosis 1+
--- NOTE | 2018-07-24 09:17 | Progress Note ---
Subjective Interval history: Patient was seen today for follow-up on multiple renal related issues Events of this hospitalization noted On dialysis Monday Patient denies having any chest pain pressure or shortness of breath Vitals labs intake output medications were reviewed Social history: Reviewed Allergies: Reviewed Family history: Reviewed Physical examination HEENT: Oral mucosa moist no pallor or icterus Neck: Supple no JVD Chest: Clear to auscultation anteriorly, posteriorly few crackles CVS: Regular rate and rhythm S1 and S2 heard Abdomen: Soft nontender no suprapubic masses no organomegaly appreciable Patient has dull flanks obese abdomen fluid thrill present Extremity: Dry skin less than 1+ peripheral edema Working fistula Musculoskeletal: No joint effusion noted in knees and ankle Neurological: Alert awake Dermatology: No petechial rashes Psychiatry: No evidence of any agitation and aggression noted Assessment and plan End-stage renal disease: Continue with maintenance hemodialysis 3 times per week Dialysis access: currently fistula which has been working well per patient without any problems Anemia in end-stage renal disease Will give erythropoietin 20,000 units subcutaneous 1 Volume overload mostly resulting from noncompliance refuses to increase treatment time refuses to ultrafiltrate more than 3 kg Ascites, heart failure, abnormal cardiac enzyme/in a patient who is very poorly compliant Underlying cardiomyopathy Secondary hyperparathyroidism: Monitor phosphorus and PTH level Patient was adequately counseled and educated regarding multiple renal related issues Pertinent lab findings were discussed with patient, patient does exhibit good understanding of renal issues We'll continue to follow and make recommendation from renal standpoint Objective - Vital Signs Vital signs: Vital Signs - 12hr 07/23/18 07/23/18 07/24/18 22:53 23:48 03:24 Temperature 98.7 F 97.4 F L Pulse Rate 71 69 79 Respiratory 12 16 Rate Blood Pressure 158/80 186/92 O2 Sat by Pulse 91 94 Oximetry 07/24/18 07:50 Temperature 98.7 F Pulse Rate Respiratory 18 Rate Blood Pressure 170/91 O2 Sat by Pulse Oximetry - Lab 07/24/18 05:50 07/24/18 05:50 Most recent lab results Calcium 8.8 mg/dL (8.4-10.2) 07/24/18 05:50 Medications & Allergies - Medications Allergies/Adverse Reactions: Allergies tramadol [From Ultram] Adverse Reaction (Verified 03/05/18 15:30) Dizziness Home Medications: Home Medications Medication Instructions Recorded Confirmed Last Taken Type hydrALAZINE [Apresoline TAB] 100 mg PO TID #90 tab 04/04/18 07/23/18 07/22/18 Rx cloNIDine [Catapres] 0.1 mg PO TID #90 tablet 05/18/18 07/23/18 07/22/18 Rx Active Medications: Generic Name Dose Route Start Last Admin Trade Name Pinoq PRN Reason Stop Dose Admin Carvedilol 6.25 mg 07/23/18 10:00 07/23/18 21:13 Coreg PO Not Given BID [facility] Clonidine HCl 0.1 mg 07/23/18 08:00 07/23/18 21:12 Catapres PO 0.1 mg TID FOSTER Administration Enoxaparin Sodium 30 mg 07/23/18 10:00 07/23/18 10:42 Lovenox SUB-Q Not Given QDAY [facility] Escitalopram Oxalate 10 mg 07/23/18 10:00 07/23/18 10:42 Lexapro PO Not Given DAILY [facility] Furosemide 40 mg 07/23/18 10:00 07/23/18 21:14 Lasix PO Not Given BID [facility] Hydralazine HCl 100 mg 07/23/18 08:00 07/23/18 21:13 Apresoline PO Not Given TID [facility] Sodium Chloride 100 mls @ 999 mls/hr 07/23/18 15:39 Nacl 0.9% IV JULIA PRN Hypotension Levothyroxine Sodium 50 mcg 07/24/18 06:00 07/24/18 05:14 Synthroid PO Not Given DAILY@0600 [facility] Morphine Sulfate 2 mg 07/23/18 11:43 Morphine IV Q4H PRN Pain , Severe (7-10) Nifedipine 60 mg 07/23/18 12:00 07/23/18 23:01 Procardia Xl PO Not Given Q12H [facility] Oxycodone/Acetaminophen 1 tab 07/23/18 11:43 07/23/18 21:13 Percocet 5/325 PO 1 tab Q6H PRN Administration Pain, Moderate (4-6)
--- NOTE | 2018-07-24 10:07 | Procedure Note ---
Date of procedure: 07/24/18 Pre-op diagnosis: ascites Post-op diagnosis: same Procedure: US paracentesis Findings: moderate ascites Anesthesia: local Surgeon: BARTOLOME IBRAHIM Estimated blood loss: none Pathology: none Specimen disposition: discarded Condition: stable Disposition: floor
--- NOTE | 2018-07-24 10:17 | Ultrasound Report ---
ULTRASOUND PARACENTESIS HISTORY: Ascites. DESCRIPTION OF PROCEDURE: A time out was performed. Informed consent was obtained. Sterile technique was utilized. Using ultrasound guidance, a 5 Polish centesis needle was advanced into the peritoneal space. There was spontaneous return of clear yellow fluid. 3.5 L of fluid was drained. No complications. IMPRESSION: Successful ultrasound-guided paracentesis.
--- NOTE | 2018-07-24 11:40 | Progress Note ---
Addendum entered and electronically signed by YELENA JO MD 07/24/18 17:00: Continue medical therapy for chronic systolic heart failure. Original Note: Assessment and Plan Acute Bronchitis Ascites s/p paracentesis Musculoskeletal chest pain following protracted bouts of coughing. End-stage renal disease on hemodialysis Nonischemic Cardiomyopathy EF 30-35% by echo 12/2017 no ischemia on MPI 12/2017 Hypertension Hypothyroidism Recommendations: Fluid/sodium restriction. Dialysis for fluid removal. Medical therapy for nonischemic cardiomyopathy. Subjective Date of service: 07/24/18 Interval history: Patient has no cardiac complaints. Awaiting planned paracentesis. Objective Vital Signs Temp Pulse Resp BP BP Pulse Ox 07/24/18 11:00 72 188/98 07/24/18 10:45 68 181/98 07/24/18 10:30 72 193/114 07/24/18 10:15 69 190/106 07/24/18 10:00 69 190/105 07/24/18 09:55 98.0 F 69 18 196/112 07/24/18 07:50 98.7 F 18 170/91 07/24/18 03:24 97.4 F L 79 16 186/92 94 07/23/18 23:48 98.7 F 69 12 158/80 91 07/23/18 22:53 71 07/23/18 20:02 99 07/23/18 20:01 98.1 F 71 16 173/81 97 07/23/18 16:00 98.9 F 88 18 154/82 97 07/23/18 12:25 97.7 F 70 18 159/80 98 - Physical Examination General: No Apparent Distress HEENT: Positive: PERRL Neck: Positive: trachea midline Cardiac: Positive: Reg Rate and Rhythm Lungs: Positive: Decreased Breath Sounds Abdomen: Positive: Distended Extremities: Present: edema - Labs and Meds Cardiac Enzymes 07/23/18 Range/Units 14:27 CK-MB (CK-2) 9.7 H (0.0-4.0) ng/mL CBC 07/24/18 Range/Units 05:50 WBC 5.5 (4.5-11.0) K/mm3 RBC 2.92 L (3.65-5.03) M/mm3 Hgb 8.1 L (11.8-15.2) gm/dl Hct 24.9 L (35.5-45.6) % Plt Count 166 (140-440) K/mm3 Comprehensive Metabolic Panel 07/24/18 Range/Units 05:50 Sodium 139 (137-145) mmol/L Potassium 5.6 H (3.6-5.0) mmol/L Chloride 98.3 (98-107) mmol/L Carbon Dioxide 22 (22-30) mmol/L BUN 73 H (9-20) mg/dL Creatinine 11.9 H (0.8-1.5) mg/dL Glucose 104 H (75-100) mg/dL Calcium 8.8 (8.4-10.2) mg/dL
[2018-07-24] MEDS: APRESOLINE PO SCH ×2 (14:13→14:14)
[2018-07-24] MEDS: CATAPRES PO SCH ×2 (14:14→14:16)
[2018-07-24] MEDS: COREG PO SCH (14:16)
[2018-07-24] MEDS: LEXAPRO PO SCH (14:17)
[2018-07-24] MEDS: LASIX PO SCH (14:17)
[2018-07-24] MEDS: PROCARDIA XL PO SCH (14:37)
[2018-07-24] MEDS: LOVENOX SUB-Q SCH (14:53)
--- NOTE | 2018-07-24 15:58 | Progress Note ---
Assessment and Plan Assessment and plan: Patient is a history of hypertension, CHF EF 30-35%, CMP, GERD and ESRD on TTh, hypothyroidism, AOCD, Dilated CMP, chronic anemia and ascities requiring frequent paracentesis who presented with sob and cough. 3.5 liters drained at paracentesis 3-3.5 liters removed at HD Acute Bronchitis Ascites s/p paracentesis Musculoskeletal chest pain following protracted bouts of coughing. End-stage renal disease on hemodialysis Nonischemic Cardiomyopathy EF 30-35% by echo 12/2017 no ischemia on MPI 12/2017 Hypertension Hypothyroidism Recommendations: Fluid/sodium restriction. Dialysis for fluid removal. Medical therapy for nonischemic cardiomyopathy. History Interval history: Patient was seen and examined. Follow-up on current diagnosis cough and sob, improved. Overnight uneventful. Patient denies any chest pain, nausea/vomiting or severe headaches. Imaging, nursing note, chart, labs and old chart reviewed. Discussed with patient. Hospitalist Physical - Physical exam Narrative exam: Gen: WDWN, NAD, Awake, Alert, Orientated HEENT: NCAT, EOMI, PERRL, OP Clear Neck: supple, no adenopathy, no thyromegaly, no JVD CVS/Heart: RRR, normal S1S2, pulses present bilaterally Chest/Lungs: diminished BS, Symmetrical chest expansion, good air entry bilaterally GI/Abdomen: soft, NT, distended, good bowel sounds, no guarding or rebound /Bladder: no suprapubic tenderness, no CVA or paraspinal tenderness Extermity/Skin: no c/c/e, no obvious rash MSK: FROM x 4 Neuro: CN 2-12 grossly intact, no new focal deficits Psych: calm - Constitutional Vitals: Temp Pulse Resp BP Pulse Ox 97.2 F L 71 18 183/90 94 07/24/18 13:30 07/24/18 14:16 07/24/18 13:30 07/24/18 14:16 07/24/18 03:24 General appearance: Present: no acute distress Results - Labs CBC & Chem 7: 07/24/18 05:50 07/24/18 05:50 Labs: Laboratory Last Values WBC 5.5 K/mm3 (4.5-11.0) 07/24/18 05:50 RBC 2.92 M/mm3 (3.65-5.03) L 07/24/18 05:50 Hgb 8.1 gm/dl (11.8-15.2) L 07/24/18 05:50 Hct 24.9 % (35.5-45.6) L 07/24/18 05:50 MCV 85 fl (84-94) 07/24/18 05:50 MCH 28 pg (28-32) 07/24/18 05:50 MCHC 33 % (32-34) 07/24/18 05:50 RDW 19.2 % (13.2-15.2) H 07/24/18 05:50 Plt Count 166 K/mm3 (140-440) 07/24/18 05:50 Lymph % (Auto) 25.6 % (13.4-35.0) 07/23/18 00:40 Lawrence % (Auto) Rhit 07/24/18 05:50 Eos % (Auto) 2.2 % (0.0-4.3) 07/23/18 00:40 Baso % (Auto) 0.8 % (0.0-1.8) 07/23/18 00:40 Lymph # 1.9 K/mm3 (1.2-5.4) 07/23/18 00:40 Lawrence # 1.1 K/mm3 (0.0-0.8) H 07/23/18 00:40 Eos # 0.2 K/mm3 (0.0-0.4) 07/23/18 00:40 Baso # 0.1 K/mm3 (0.0-0.1) 07/23/18 00:40 Add Manual Diff Complete 07/24/18 05:50 Total Counted 100 07/24/18 05:50 Seg Neutrophils % 56.9 % (40.0-70.0) 07/23/18 00:40 Seg Neuts % (Manual) 71.0 % (40.0-70.0) H 07/24/18 05:50 Band Neutrophils % 0 % 07/24/18 05:50 Lymphocytes % (Manual) 8.0 % (13.4-35.0) L 07/24/18 05:50 Reactive Lymphs % (Man) 0 % 07/24/18 05:50 Monocytes % (Manual) 15.0 % (0.0-7.3) H 07/24/18 05:50 Eosinophils % (Manual) 5.0 % (0.0-4.3) H 07/24/18 05:50 Basophils % (Manual) 1.0 % (0.0-1.8) 07/24/18 05:50 Metamyelocytes % 0 % 07/24/18 05:50 Myelocytes % 0 % 07/24/18 05:50 Promyelocytes % 0 % 07/24/18 05:50 Blast Cells % 0 % 07/24/18 05:50 Nucleated RBC % Not Reportable 07/24/18 05:50 Seg Neutrophils # 4.3 K/mm3 (1.8-7.7) 07/23/18 00:40 Seg Neutrophils # Man 3.9 K/mm3 (1.8-7.7) 07/24/18 05:50 Band Neutrophils # 0.0 K/mm3 07/24/18 05:50 Lymphocytes # (Manual) 0.4 K/mm3 (1.2-5.4) L 07/24/18 05:50 Abs React Lymphs (Man) 0.0 K/mm3 07/24/18 05:50 Monocytes # (Manual) 0.8 K/mm3 (0.0-0.8) 07/24/18 05:50 Eosinophils # (Manual) 0.3 K/mm3 (0.0-0.4) 07/24/18 05:50 Basophils # (Manual) 0.1 K/mm3 (0.0-0.1) 07/24/18 05:50 Metamyelocytes # 0.0 K/mm3 07/24/18 05:50 Myelocytes # 0.0 K/mm3 07/24/18 05:50 Promyelocytes # 0.0 K/mm3 07/24/18 05:50 Blast Cells # 0.0 K/mm3 07/24/18 05:50 WBC Morphology Not Reportable 07/24/18 05:50 Hypersegmented Neuts Not Reportable 07/24/18 05:50 Hyposegmented Neuts Not Reportable 07/24/18 05:50 Hypogranular Neuts Not Reportable 07/24/18 05:50 Smudge Cells Not Reportable 07/24/18 05:50 Toxic Granulation Not Reportable 07/24/18 05:50 Toxic Vacuolation Not Reportable 07/24/18 05:50 Dohle Bodies Not Reportable 07/24/18 05:50 Pelger-Huet Anomaly Not Reportable 07/24/18 05:50 Vin Rods Not Reportable 07/24/18 05:50 Platelet Estimate Consistent w auto 07/24/18 05:50 Clumped Platelets Not Reportable 07/24/18 05:50 Plt Clumps, EDTA Not Reportable 07/24/18 05:50 Large Platelets Not Reportable 07/24/18 05:50 Giant Platelets Not Reportable 07/24/18 05:50 Platelet Satelliting Not Reportable 07/24/18 05:50 Plt Morphology Comment Not Reportable 07/24/18 05:50 RBC Morphology Not Reportable 07/24/18 05:50 Dimorphic RBCs Not Reportable 07/24/18 05:50 Polychromasia Not Reportable 07/24/18 05:50 Hypochromasia Not Reportable 07/24/18 05:50 Poikilocytosis 1+ 07/24/18 05:50 Anisocytosis 1+ 07/24/18 05:50 Microcytosis Not Reportable 07/24/18 05:50 Macrocytosis Not Reportable 07/24/18 05:50 Spherocytes Not Reportable 07/24/18 05:50 Pappenheimer Bodies Not Reportable 07/24/18 05:50 Sickle Cells Not Reportable 07/24/18 05:50 Target Cells Not Reportable 07/24/18 05:50 Tear Drop Cells Not Reportable 07/24/18 05:50 Ovalocytes 1+ 07/24/18 05:50 Helmet Cells Not Reportable 07/24/18 05:50 Lerma-Saunemin Bodies Not Reportable 07/24/18 05:50 [place] Rings Not Reportable 07/24/18 05:50 [place] Cells Not Reportable 07/24/18 05:50 Bite Cells Not Reportable 07/24/18 05:50 Crenated Cell Not Reportable 07/24/18 05:50 Elliptocytes Not Reportable 07/24/18 05:50 Acanthocytes (Spur) Not Reportable 07/24/18 05:50 Rouleaux Not Reportable 07/24/18 05:50 Hemoglobin C Crystals Not Reportable 07/24/18 05:50 Schistocytes Not Reportable 07/24/18 05:50 Malaria parasites Not Reportable 07/24/18 05:50 Charbel Bodies Not Reportable 07/24/18 05:50 Hem Pathologist Commnt No 07/24/18 05:50 PT 16.0 Sec. (12.2-14.9) H 07/23/18 00:40 INR 1.20 (0.87-1.13) H 07/23/18 00:40 Sodium 139 mmol/L (137-145) 07/24/18 05:50 Potassium 5.6 mmol/L (3.6-5.0) H 07/24/18 05:50 Chloride 98.3 mmol/L (98-107) 07/24/18 05:50 Carbon Dioxide 22 mmol/L (22-30) 07/24/18 05:50 Anion Gap 24 mmol/L 07/24/18 05:50 BUN 73 mg/dL (9-20) H 07/24/18 05:50 Creatinine 11.9 mg/dL (0.8-1.5) H 07/24/18 05:50 Estimated GFR 6 ml/min 07/24/18 05:50 BUN/Creatinine Ratio 6 % 07/24/18 05:50 Glucose 104 mg/dL (75-100) H 07/24/18 05:50 Calcium 8.8 mg/dL (8.4-10.2) 07/24/18 05:50 Total Creatine Kinase 787 units/L (55-170) H 07/23/18 14:27 CK-MB (CK-2) 9.7 ng/mL (0.0-4.0) H 07/23/18 14:27 CK-MB (CK-2) Rel Index 1.2 (0-4) 07/23/18 14:27 Troponin T 0.530 ng/mL (0.00-0.029) H* 07/23/18 14:27 Triglycerides 46 mg/dL (2-149) 07/23/18 00:40 Cholesterol 120 mg/dL (50-199) 07/23/18 00:40 LDL Cholesterol Direct 72 mg/dL (50-130) 07/23/18 00:40 HDL Cholesterol 47 mg/dL (40-59) 07/23/18 00:40 Cholesterol/HDL Ratio 2.55 % 07/23/18 00:40
[2018-07-24 20:30] VITALS: BP 159/79
--- NOTE | 2018-07-25 14:23 | Discharge Summary ---
Providers - Providers Date of Admission: 07/23/18 06:09 Attending physician: REBA CAREY 07/23/18 06:18 Consult to Physician [CONS] Routine Comment: Consulting Provider: OMAYRA TEJADA Physician Instructions: Reason For Exam: cp 07/23/18 11:45 Consult to Physician [CONS] Routine Comment: Consulting Provider: VA RYAN Physician Instructions: Reason For Exam: esrd Primary care physician: [facility] MD DOMINIK Hospitalization Condition: Fair Hospital course: Patient is a history of hypertension, CHF EF 30-35%, CMP, GERD and ESRD on TTh, hypothyroidism, AOCD, Dilated CMP, chronic anemia and ascities requiring frequent paracentesis who presented with sob and cough. 3.5 liters drained at paracentesis 3-3.5 liters removed at HD Discharge Diagnoses: Acute Bronchitis Ascites s/p paracentesis Musculoskeletal chest pain following protracted bouts of coughing. End-stage renal disease on hemodialysis Acute on Chronic systolic heart failure s/p fluid removal Nonischemic Cardiomyopathy, EF 30-35% by echo 12/2017, no ischemia on MPI 12/2017 Hypertension Hypothyroidism Recommendations: Fluid/sodium restriction. Dialysis for fluid removal. Medical therapy for nonischemic cardiomyopathy. Patient left AMA Disposition: DC- LEFT AGAINST MED ADVICE Core Measure Documentation - Palliative Care Palliative Care/ Comfort Measures: Not Applicable - Core Measures Any of the following diagnoses?: heart failure - VTE Discharge Requirements Deep Vein Thrombosis/Pulmonary Embolism Present on Admission: No Has pt received <5 days of overlap therapy or INR<2.0: No Anticoagulant overlap therapy prescribed at discharge: No Contraindication No Overlap Therapy order at DC: Not Indicated - Heart Failure Discharge Requirements DIANE/ARB for LVSD if EF <40%: Not Applicable (pt left ama) Beta lexy at discharge: No Reason for no beta lexy on DC: Patient refusal (pt left ama) Exam - Constitutional Vitals: Temp Pulse Resp BP Pulse Ox 98.6 F 71 18 159/79 97 07/24/18 19:40 07/24/18 19:40 07/24/18 19:40 07/24/18 19:40 07/24/18 21:44 Plan Follow up with: ZHANE VAZQUEZ MD [Primary Care Provider] - 3-5 Days Forms: AMA Form
== END 2018-07-24 23:04 | disposition left against medical advice (07) | DRG 291 ==
LOC: ED 23:57 → 4A 07-23 06:09
PROVIDERS: ADMIT Internal Medicine; ATTEND Internal Medicine
PROC: 0W9G3ZZ Drainage of Peritoneal Cavity, Percutaneous Approach (ICD-10-PCS; principal; 2018-07-24)
PROC: 5A1D70Z Performance of Urinary Filtration, Intermittent, Less than 6 Hours Per Day (ICD-10-PCS; 2018-07-24)
DX: I13.2 Hypertensive heart and chronic kidney disease with heart failure and with stage 5 chronic kidney disease, or end stage renal disease (principal); N18.6 End stage renal disease; I50.43 Acute on chronic combined systolic (congestive) and diastolic (congestive) heart failure; R18.8 Other ascites; Q61.3 Polycystic kidney, unspecified; I42.8 Other cardiomyopathies; K21.9 Gastro-esophageal reflux disease without esophagitis; E03.9 Hypothyroidism, unspecified; J20.9 Acute bronchitis, unspecified; D63.1 Anemia in chronic kidney disease; I16.0 Hypertensive urgency; E87.5 Hyperkalemia; Z82.49 Family history of ischemic heart disease and other diseases of the circulatory system; Z99.2 Dependence on renal dialysis; Z71.89 Other specified counseling; Z79.899 Other long term (current) drug therapy
CPT/HCPCS: 36415; 49083; 71045; 80048; 80061; 82550; 82553; 84484; 85007; 85025; 85610; 93005; 93010; G0378; J1650

== ENCOUNTER 2018-08-06 02:11 | Inpatient (IN) | payer MEDICARE ==
[2018-08-06] MEDS ORDERED: CATAPRES PO ONE (02:43)
[2018-08-06] MEDS ORDERED: FIORICET PO ONE (02:43)
[2018-08-06] MEDS ORDERED: DILAUDID IV ONE (02:51)
[2018-08-06] MEDS ORDERED: BUMEX IV ONE (03:03)
--- NOTE | 2018-08-06 03:32 | XRay Report ---
PROCEDURE: XR CHEST 1V AP TECHNIQUE: Single AP chest HISTORY: Chest Pain COMPARISONS: July 23. FINDINGS: Cardiac silhouette is enlarged and unchanged. Decreased inspiration. No airspace consolidation or pleural effusions. Pulmonary vasculature are within normal limits. No significant interval change. IMPRESSION: Cardiomegaly with no evidence of failure or acute infiltrates. Decreased inspiration. No significant interval change since the prior radiograph.. This document is electronically signed by Tr Wadsworth MD., August 06 2018 03:29:56 AM ET
[2018-08-06] MEDS ORDERED: APRESOLINE IV ONE ×2 (03:33→04:51)
[2018-08-06 03:37] LABS: INR 1.34 (0.87-1.13)
[2018-08-06 03:38] LABS: Partial Thromboplastin Time 32.5 Sec. (24.2-36.6)
[2018-08-06 03:46] LABS: Calcium 9.3 mg/dL (8.4-10.2)
[2018-08-06 04:00] LABS: Hematocrit 33.6 % (35.5-45.6); Hemoglobin 10.9 gm/dl (11.8-15.2); Mean Corpuscular HGB Conc 33 % (32-34); Mean Corpuscular Volume 87 fl (84-94); Platelet Count 179 K/mm3 (140-440); Red Blood Count 3.85 M/mm3 (3.65-5.03)
[2018-08-06 04:02] LABS: Red Cell Distribution Width 20.7 % (13.2-15.2)
[2018-08-06 04:37] LABS: Chol/HDL Ratio 2.68 %
[2018-08-06] MEDS ORDERED: NITROSTAT SL PRN (05:07)
[2018-08-06] MEDS ORDERED: SODIUM CHLORIDE FLUSH SYRINGE 10 ML IV PRN (05:09)
[2018-08-06] MEDS ORDERED: ZOFRAN IV PRN (05:09)
[2018-08-06] MEDS ORDERED: TYLENOL PO PRN (05:09)
[2018-08-06] MEDS ORDERED: APRESOLINE IV PRN ×2 (05:12→08:00)
--- NOTE | 2018-08-06 05:18 | History and Physical Report ---
<DAI MATHIAS - Last Filed: 08/06/18 05:59> History of Present Illness Date of examination: 08/06/18 Date of admission: 08/05/18 Chief complaint: Abdominal pain History of present illness: Pt is a 48-year-old man with PMHx of hypertension, end-stage renal disease (on HD), h/o polycystic kidney disease, cirrhosis of the liver, fluid overload who presents to the emergency with complaints of diffuse abdominal pain, shortness of breath, lower extremity swelling x 2 day. Patient states that 3 weeks ago he has a paracentesis procedure where 4 L of fluid was removed from his stomach, patient states that today he has been having severe abdominal pain, the pain is defused throughout the abdomen, he sates that he is unable to breathe due to fluid accumulation, walking short distances cause severe shortness of breath. Patient also reports severe cough with nonproductive sputum, he denies fever, denies chills denies any nausea, denies vomiting, denies diarrhea. Patient was seen and the ER, his abdomen is distended with fluid waves, diffuse tenderness on palpation, positive bowel sounds. Patient was admitted for abdomen pain due to ascites, IR was consulted for possible paracentesis procedure in a.m. Past History Past Medical History: ESRD, hypertension, hyperlipidemia, renal failure, other Past Surgical History: hernia repair (2) Social history: no significant social history Medications and Allergies Allergies Allergy/AdvReac Type Severity Reaction Status Date / Time tramadol [From Ultram] AdvReac Dizziness Verified 03/05/18 15:30 Home Medications Medication Instructions Recorded Confirmed Last Taken Type cloNIDine [Catapres] 0.2 mg PO BID #60 tablet 08/08/18 Unknown Rx guaiFENesin/CODEINE [Robitussin AC] 5 ml PO Q12H PRN 5 Days oral.liqd 08/08/18 Unknown Rx oxyCODONE /ACETAMINOPHEN [Percocet 1 tab PO Q6H PRN #10 tablet 08/08/18 Unknown Rx 5/325 mg] Active Meds: Active Medications Acetaminophen (Tylenol) 650 mg PO Q4H PRN PRN Reason: Pain MILD(1-3)/Fever >100.5/SWAIN Aspirin (Aspirin) 325 mg PO QDAY F[facility] Enoxaparin Sodium (Lovenox) 30 mg SUB-Q QDAY [facility] Furosemide (Lasix) 20 mg IV BID@0600,1800 F[facility] Hydralazine HCl (Apresoline) 10 mg IV Q6H PRN PRN Reason: Hypertension Morphine Sulfate (Morphine) 2 mg IV Q5MIN PRN PRN Reason: Chest Pain unrelieved by NTG Nitroglycerin (Nitrostat) 0.4 mg SL .Q5MIN PRN PRN Reason: Chest Pain Ondansetron HCl (Zofran) 4 mg IV Q8H PRN PRN Reason: Nausea And Vomiting Oxycodone/Acetaminophen (Percocet 5/325) 1 tab PO Q6H PRN PRN Reason: Pain, Moderate (4-6) Sodium Chloride (Sodium Chloride Flush Syringe 10 Ml) 10 ml IV BID FOSTER Sodium Chloride (Sodium Chloride Flush Syringe 10 Ml) 10 ml IV PRN PRN PRN Reason: LINE FLUSH Review of Systems Constitutional: fatigue, poor appetite Cardiovascular: shortness of breath Respiratory: cough, dyspnea on exertion Gastrointestinal: abdominal pain Rectal: pain Musculoskeletal: shooting leg pain, morning stiffness, limitation of motion Neurological: head injury Psychiatric: anxiety Exam - Constitutional Vitals: Temp Pulse Resp BP Pulse Ox 86 20 198/114 98 08/06/18 04:51 08/06/18 04:15 08/06/18 04:51 08/06/18 04:15 General appearance: Present: mild distress - EENT Eyes: Present: EOM intact ENT: hearing intact - Neck Neck: Present: normal ROM - Respiratory Respiratory effort: normal, labored Respiratory: bilateral: diminished, rhonchi - Cardiovascular Rhythm: regular Heart Sounds: Present: S1 & S2, gallop, systolic murmur - Extremities Extremities: no ischemia Peripheral Pulses: within normal limits - Abdominal General gastrointestinal: Present: tender, distended, rigid Male genitourinary: Present: normal - Rectal Rectal Exam: deferred - Integumentary Integumentary: Present: warm, dry - Musculoskeletal Musculoskeletal: other (bilateral edema) - Psychiatric Psychiatric: cooperative - Neurologic Neurologic: moves all extremities, other (limited movement due to edema) Results - Labs CBC & Chem 7: 08/06/18 03:09 08/06/18 03:09 Labs: Laboratory Last Values WBC 5.7 K/mm3 (4.5-11.0) 08/06/18 03:09 RBC 3.85 M/mm3 (3.65-5.03) 08/06/18 03:09 Hgb 10.9 gm/dl (11.8-15.2) L 08/06/18 03:09 Hct 33.6 % (35.5-45.6) L 08/06/18 03:09 MCV 87 fl (84-94) 08/06/18 03:09 MCH 28 pg (28-32) 08/06/18 03:09 MCHC 33 % (32-34) 08/06/18 03:09 RDW 20.7 % (13.2-15.2) H 08/06/18 03:09 Plt Count 179 K/mm3 (140-440) 08/06/18 03:09 PT 17.4 Sec. (12.2-14.9) H 08/06/18 03:09 INR 1.34 (0.87-1.13) H 08/06/18 03:09 APTT 32.5 Sec. (24.2-36.6) 08/06/18 03:09 Sodium 138 mmol/L (137-145) 08/06/18 03:09 Potassium 5.5 mmol/L (3.6-5.0) H 08/06/18 03:09 Chloride 95.0 mmol/L (98-107) L 08/06/18 03:09 Carbon Dioxide 19 mmol/L (22-30) L 08/06/18 03:09 Anion Gap 30 mmol/L 08/06/18 03:09 BUN 69 mg/dL (9-20) H 08/06/18 03:09 Creatinine 11.0 mg/dL (0.8-1.5) H 08/06/18 03:09 Estimated GFR 6 ml/min 08/06/18 03:09 BUN/Creatinine Ratio 6 % 08/06/18 03:09 Glucose 94 mg/dL (75-100) 08/06/18 03:09 Calcium 9.3 mg/dL (8.4-10.2) 08/06/18 03:09 Troponin T 0.672 ng/mL (0.00-0.029) H* 08/06/18 03:09 NT-Pro-B Natriuret Pep > 81276 pg/mL (0-450) H 08/06/18 03:09 Triglycerides 67 mg/dL (2-149) 08/06/18 03:09 Cholesterol 118 mg/dL (50-199) 08/06/18 03:09 LDL Cholesterol Direct 71 mg/dL (50-130) 08/06/18 03:09 HDL Cholesterol 44 mg/dL (40-59) 08/06/18 03:09 Cholesterol/HDL Ratio 2.68 % 08/06/18 03:09 Assessment and Plan Assessment and plan: 1. Abdominal pain (due to ascites) 2. Hypertension 3. End-stage renal disease (on hemodialysis) 4. History of polycystic kidney disease 5. Cirrhosis of the liver 6. Fluid overload 7. Bilateral lower extremities edema 8. New onset dry cough Plan: Admit to med telemetry for fluid overload/ascites Consult IR for paracentesis in the a.m. Keep nothing by mouth Consult nephrology for HD management Fluid restriction Monitor I and O Daily weight Resume home meds DVT prophylaxis Advance Directives: Yes VTE prophylaxis?: Mechanical Plan of care discussed with patient/family: Yes <YESENIA MEZA - Last Filed: 08/18/18 21:44> History of Present Illness Date of admission: 08/06/18 05:58 Medications and Allergies Active Meds: Active Medications Acetaminophen (Tylenol) 650 mg PO Q4H PRN PRN Reason: Pain MILD(1-3)/Fever >100.5/SWAIN Aspirin (Aspirin) 325 mg PO QDAY FOSTER Enoxaparin Sodium (Lovenox) 30 mg SUB-Q QDAY [facility] Nicardipine HCl 50 mg/ Sodium (Chloride) 250 mls @ 25 mls/hr IV TITR FOSTER; Protocol Last Admin: 08/06/18 06:34 Dose: 5 mg/hr, 25 mls/hr Documented by: Morphine Sulfate (Morphine) 2 mg IV Q5MIN PRN PRN Reason: Chest Pain unrelieved by NTG Last Admin: 08/06/18 06:34 Dose: 2 mg Documented by: Nitroglycerin (Nitrostat) 0.4 mg SL .Q5MIN PRN PRN Reason: Chest Pain Ondansetron HCl (Zofran) 4 mg IV Q8H PRN PRN Reason: Nausea And Vomiting Oxycodone/Acetaminophen (Percocet 5/325) 1 tab PO Q6H PRN PRN Reason: Pain, Moderate (4-6) Sodium Chloride (Sodium Chloride Flush Syringe 10 Ml) 10 ml IV BID FOSTER Sodium Chloride (Sodium Chloride Flush Syringe 10 Ml) 10 ml IV PRN PRN PRN Reason: LINE FLUSH Exam - Constitutional Vitals: Temp Pulse Resp BP Pulse Ox 81 23 201/110 94 08/06/18 06:30 08/06/18 06:30 08/06/18 06:30 08/06/18 06:30 Results - Labs CBC & Chem 7: 08/07/18 06:56 08/07/18 06:56 Labs: Laboratory Last Values WBC 5.7 K/mm3 (4.5-11.0) 08/06/18 03:09 RBC 3.85 M/mm3 (3.65-5.03) 08/06/18 03:09 Hgb 10.9 gm/dl (11.8-15.2) L 08/06/18 03:09 Hct 33.6 % (35.5-45.6) L 08/06/18 03:09 MCV 87 fl (84-94) 08/06/18 03:09 MCH 28 pg (28-32) 08/06/18 03:09 MCHC 33 % (32-34) 08/06/18 03:09 RDW 20.7 % (13.2-15.2) H 08/06/18 03:09 Plt Count 179 K/mm3 (140-440) 08/06/18 03:09 Add Manual Diff Complete 08/06/18 03:09 Total Counted 100 08/06/18 03:09 Seg Neuts % (Manual) 81.0 % (40.0-70.0) H 08/06/18 03:09 Band Neutrophils % 0 % 08/06/18 03:09 Lymphocytes % (Manual) 13.0 % (13.4-35.0) L 08/06/18 03:09 Reactive Lymphs % (Man) 0 % 08/06/18 03:09 Monocytes % (Manual) 6.0 % (0.0-7.3) 08/06/18 03:09 Eosinophils % (Manual) 0 % (0.0-4.3) 08/06/18 03:09 Basophils % (Manual) 0 % (0.0-1.8) 08/06/18 03:09 Metamyelocytes % 0 % 08/06/18 03:09 Myelocytes % 0 % 08/06/18 03:09 Promyelocytes % 0 % 08/06/18 03:09 Blast Cells % 0 % 08/06/18 03:09 Nucleated RBC % Not Reportable 08/06/18 03:09 Seg Neutrophils # Man 4.6 K/mm3 (1.8-7.7) 08/06/18 03:09 Band Neutrophils # 0.0 K/mm3 08/06/18 03:09 Lymphocytes # (Manual) 0.7 K/mm3 (1.2-5.4) L 08/06/18 03:09 Abs React Lymphs (Man) 0.0 K/mm3 08/06/18 03:09 Monocytes # (Manual) 0.3 K/mm3 (0.0-0.8) 08/06/18 03:09 Eosinophils # (Manual) 0.0 K/mm3 (0.0-0.4) 08/06/18 03:09 Basophils # (Manual) 0.0 K/mm3 (0.0-0.1) 08/06/18 03:09 Metamyelocytes # 0.0 K/mm3 08/06/18 03:09 Myelocytes # 0.0 K/mm3 08/06/18 03:09 Promyelocytes # 0.0 K/mm3 08/06/18 03:09 Blast Cells # 0.0 K/mm3 08/06/18 03:09 WBC Morphology Not Reportable 08/06/18 03:09 Hypersegmented Neuts Not Reportable 08/06/18 03:09 Hyposegmented Neuts Not Reportable 08/06/18 03:09 Hypogranular Neuts Not Reportable 08/06/18 03:09 Smudge Cells Not Reportable 08/06/18 03:09 Toxic Granulation Not Reportable 08/06/18 03:09 Toxic Vacuolation Not Reportable 08/06/18 03:09 Dohle Bodies Not Reportable 08/06/18 03:09 Pelger-Huet Anomaly Not Reportable 08/06/18 03:09 Vin Rods Not Reportable 08/06/18 03:09 Platelet Estimate Appears normal 08/06/18 03:09 Clumped Platelets Not Reportable 08/06/18 03:09 Plt Clumps, EDTA Not Reportable 08/06/18 03:09 Large Platelets Not Reportable 08/06/18 03:09 Giant Platelets Not Reportable 08/06/18 03:09 Platelet Satelliting Not Reportable 08/06/18 03:09 Plt Morphology Comment Not Reportable 08/06/18 03:09 RBC Morphology Not Reportable 08/06/18 03:09 Dimorphic RBCs Not Reportable 08/06/18 03:09 Polychromasia Not Reportable 08/06/18 03:09 Hypochromasia 1+ 08/06/18 03:09 Poikilocytosis Not Reportable 08/06/18 03:09 Anisocytosis 1+ 08/06/18 03:09 Microcytosis Not Reportable 08/06/18 03:09 Macrocytosis Not Reportable 08/06/18 03:09 Spherocytes Not Reportable 08/06/18 03:09 Pappenheimer Bodies Not Reportable 08/06/18 03:09 Sickle Cells Not Reportable 08/06/18 03:09 Target Cells Rare 08/06/18 03:09 Tear Drop Cells Not Reportable 08/06/18 03:09 Ovalocytes 1+ 08/06/18 03:09 Helmet Cells Not Reportable 08/06/18 03:09 [place] Bodies Not Reportable 08/06/18 03:09 Turrell Rings Not Reportable 08/06/18 03:09 [place] Cells Not Reportable 08/06/18 03:09 Bite Cells Not Reportable 08/06/18 03:09 Crenated Cell Not Reportable 08/06/18 03:09 Elliptocytes Few 08/06/18 03:09 Acanthocytes (Spur) Not Reportable 08/06/18 03:09 Rouleaux Not Reportable 08/06/18 03:09 Hemoglobin C Crystals Not Reportable 08/06/18 03:09 Schistocytes Not Reportable 08/06/18 03:09 Malaria parasites Not Reportable 08/06/18 03:09 Charbel Bodies Not Reportable 08/06/18 03:09 Hem Pathologist Commnt No 08/06/18 03:09 PT 17.4 Sec. (12.2-14.9) H 08/06/18 03:09 INR 1.34 (0.87-1.13) H 08/06/18 03:09 APTT 32.5 Sec. (24.2-36.6) 08/06/18 03:09 Sodium 138 mmol/L (137-145) 08/06/18 03:09 Potassium 5.5 mmol/L (3.6-5.0) H 08/06/18 03:09 Chloride 95.0 mmol/L (98-107) L 08/06/18 03:09 Carbon Dioxide 19 mmol/L (22-30) L 08/06/18 03:09 Anion Gap 30 mmol/L 08/06/18 03:09 BUN 69 mg/dL (9-20) H 08/06/18 03:09 Creatinine 11.0 mg/dL (0.8-1.5) H 08/06/18 03:09 Estimated GFR 6 ml/min 08/06/18 03:09 BUN/Creatinine Ratio 6 % 08/06/18 03:09 Glucose 94 mg/dL (75-100) 08/06/18 03:09 Calcium 9.3 mg/dL (8.4-10.2) 08/06/18 03:09 Troponin T 0.672 ng/mL (0.00-0.029) H* 08/06/18 03:09 NT-Pro-B Natriuret Pep > 65381 pg/mL (0-450) H 08/06/18 03:09 Triglycerides 67 mg/dL (2-149) 08/06/18 03:09 Cholesterol 118 mg/dL (50-199) 08/06/18 03:09 LDL Cholesterol Direct 71 mg/dL (50-130) 08/06/18 03:09 HDL Cholesterol 44 mg/dL (40-59) 08/06/18 03:09 Cholesterol/HDL Ratio 2.68 % 08/06/18 03:09 Assessment and Plan Assessment and plan: 48-year-old man with a history of hypertension, end-stage renal disease on dialysis, CHF, recurrent ascites, polycystic kidney disease comes emergency room complaining of abdominal distention. He stated that the fluid has accumulated back in his belly, he is having difficulty breathing, lying flat. He has a paracentesis done 3 weeks ago. He studies compliant with medication. Blood pressure was greater than 200 systolically, he has not responded significantly to clonidine and IV hydralazine given in the emergency room. Start Cardene drip, agree to ICU, consult renal for dialysis and IR for paracentesis. Check cardiac enzymes, also complaining of a headache, check CT head, rule out bleed. Patient seen and examined with nurse practitioner
--- NOTE | 2018-08-06 05:26 | Emergency Department Report ---
HPI - General Chief Complaint: Abdominal Pain Time Seen by Provider: 08/06/18 02:40 - HPI HPI: 48-year-old -[place] male with history of CHf, hypothyroidism, hypertension, end-stage renal disease on hemodialysis, chronic anemia and ascities requiring frequent paracentesis. He also has a dilated non-ischemic cardiomyopathy with an ejection fraction 30-35% by echocardiogram. Patient was brought to the ER via EMS with complaints of shortness of breath, leg swelling, increase abdominal girth, coughs and congestion ongoing for 2 days. His symptoms got worse today to the point where he couldn't perform his ADLs, so he came to er. In addition, patient reports chest pain associated with coughs. Patient denied any alleviating factors and states physical activities as exacerbating factors. No fever, chills or night sweats. States that he has been compliant with medications and dialysis. ED Past Medical Hx - Past Medical History Previous Medical History?: Yes Hx Hypertension: Yes Hx Congestive Heart Failure: Yes (diastolic - CHRONIC , CARDIOMYOPATHY) Hx Diabetes: No Hx GERD: Yes Hx Renal Disease: Yes (ESRD, dialysis T, , Mon) Hx Sickle Cell Disease: No Hx Asthma: No Hx COPD: No Hx HIV: No Additional medical history: Abdominal Hernias, right groin hernia, - Surgical History Past Surgical History?: Yes Additional Surgical History: dialysis access left arm, groin hernia repair, - Social History Smoking Status: Never Smoker - Medications Home Medications: Home Medications Medication Instructions Recorded Confirmed Last Taken Type hydrALAZINE [Apresoline TAB] 100 mg PO TID #90 tab 04/04/18 07/23/18 07/22/18 Rx cloNIDine [Catapres] 0.1 mg PO TID #90 tablet 05/18/18 07/23/18 07/22/18 Rx ED Review of Systems ROS: Stated complaint: ABD PAIN Other details as noted in HPI Comment: All other systems reviewed and negative Constitutional: denies: chills, fever Eyes: denies: eye pain, eye discharge, vision change ENT: denies: ear pain, throat pain Respiratory: shortness of breath, SOB with exertion, SOB at rest. denies: cough, wheezing Cardiovascular: chest pain. denies: palpitations Endocrine: no symptoms reported Gastrointestinal: abdominal pain, nausea. denies: diarrhea Genitourinary: denies: urgency, dysuria Musculoskeletal: joint swelling, myalgia. denies: back pain, arthralgia Skin: denies: rash, lesions Neurological: denies: headache, weakness, paresthesias Psychiatric: denies: anxiety, depression Hematological/Lymphatic: denies: easy bleeding, easy bruising Physical Exam - Physical Exam Vital Signs: Vital Signs 08/06/18 08/06/18 08/06/18 02:22 02:30 02:41 Pulse Rate 86 Respiratory 17 28 H Rate Blood Pressure Blood Pressure [Right] O2 Sat by Pulse 98 95 97 Oximetry 08/06/18 08/06/18 08/06/18 02:45 02:47 02:57 Pulse Rate 85 89 Respiratory 25 H Rate Blood Pressure 233/135 Blood Pressure 210/111 [Right] O2 Sat by Pulse 100 Oximetry 08/06/18 08/06/18 08/06/18 03:00 03:16 03:30 Pulse Rate 89 88 85 Respiratory 26 H 25 H 25 H Rate Blood Pressure 233/135 229/139 Blood Pressure [Right] O2 Sat by Pulse 95 95 94 Oximetry 08/06/18 08/06/18 08/06/18 03:46 03:47 04:00 Pulse Rate 85 89 87 Respiratory 25 H 28 H Rate Blood Pressure 228/133 228/133 210/125 Blood Pressure [Right] O2 Sat by Pulse 95 98 Oximetry 08/06/18 08/06/18 04:15 04:51 Pulse Rate 86 86 Respiratory 20 Rate Blood Pressure 211/122 198/114 Blood Pressure [Right] O2 Sat by Pulse 98 Oximetry Physical Exam: - General Limitations: No Limitations General appearance: alert, in mild distress - Head Head exam: Present: atraumatic, normocephalic - Eye Eye exam: Present: normal appearance - ENT ENT exam: Present: mucous membranes moist - Neck Neck exam: Present: normal inspection - Respiratory Respiratory exam: Present: Decreased breath sounds bilaterally. Absent: respiratory distress - Cardiovascular Cardiovascular Exam: Present: regular rate, normal rhythm. Absent: systolic murmur, diastolic murmur, rubs, gallop - GI/Abdominal GI/Abdominal exam: Present: soft, normal bowel sounds - Extremities Exam Extremities exam: Present: Bilateral lower extremity edema, 4 plus - Back Exam Back exam: Present: normal inspection - Neurological Exam Neurological exam: Present: alert, oriented X3 - Psychiatric Psychiatric exam: Present: normal affect, normal mood - Skin Skin exam: Present: warm, dry, intact, normal color. Absent: rash ED Course Vital Signs 08/06/18 08/06/18 08/06/18 02:22 02:30 02:41 Pulse Rate 86 Respiratory 17 28 H Rate Blood Pressure Blood Pressure [Right] O2 Sat by Pulse 98 95 97 Oximetry 08/06/18 08/06/18 08/06/18 02:45 02:47 02:57 Pulse Rate 85 89 Respiratory 25 H Rate Blood Pressure 233/135 Blood Pressure 210/111 [Right] O2 Sat by Pulse 100 Oximetry 08/06/18 08/06/18 08/06/18 03:00 03:16 03:30 Pulse Rate 89 88 85 Respiratory 26 H 25 H 25 H Rate Blood Pressure 233/135 229/139 Blood Pressure [Right] O2 Sat by Pulse 95 95 94 Oximetry 08/06/18 08/06/18 08/06/18 03:46 03:47 04:00 Pulse Rate 85 89 87 Respiratory 25 H 28 H Rate Blood Pressure 228/133 228/133 210/125 Blood Pressure [Right] O2 Sat by Pulse 95 98 Oximetry 08/06/18 08/06/18 04:15 04:51 Pulse Rate 86 86 Respiratory 20 Rate Blood Pressure 211/122 198/114 Blood Pressure [Right] O2 Sat by Pulse 98 Oximetry ED Medical Decision Making - Lab Data Result diagrams: 08/06/18 03:09 08/06/18 03:09 - Medical Decision Making 48-year-old -[place] male with history of CHf, hypothyroidism, hypertension, end-stage renal disease on hemodialysis, chronic anemia and ascities requiring frequent paracentesis. He also has a dilated non-ischemic cardiomyopathy with an ejection fraction 30-35% by echocardiogram. Patient was brought to the ER via EMS with complaints of shortness of breath, leg swelling, increase abdominal girth, coughs and congestion ongoing for 2 days. His symptoms got worse today to the point where he couldn't perform his ADLs, so he came to er. In addition, patient reports chest pain associated with coughs. Patient denied any alleviating factors and states physical activities as exacerbating factors. No fever, chills or night sweats. States that he has been compliant with medications and dialysis. Patient was given IV Bumex, Dilaudid 0.5 mg, symptoms mildly improved. Troponin mildly elevated, chest x-ray suggests CHF exacerbation we will admit to the hospitalist service. Critical care attestation.: If time is entered above; I have spent that time in minutes in the direct care of this critically ill patient, excluding procedure time. ED Disposition Clinical Impression: Anasarca Acute on chronic renal failure Qualifiers: Acute renal failure type: unspecified Chronic kidney disease stage: unspecified stage Qualified Code(s): N17.9 - Acute kidney failure, unspecified Disposition: OP ADMIT IP TO THIS HOSP Is pt being admited?: Yes Does the pt Need Aspirin: Yes Condition: Stable Referrals: PRIMARY CARE, [Primary Care Provider] - 3-5 Days
[2018-08-06] MEDS ORDERED: CATAPRES PO PRN (05:54)
[2018-08-06 06:00] LABS: Anisocytosis 1+; Basophils % (Manual) 0 % (0.0-1.8); Eosinophils % (Manual) 0 % (0.0-4.3); Hypochromasia 1+; Ovalocytes 1+; Target Cells Rare; Total Cells Counted 100
[2018-08-06] MEDS ORDERED: LASIX IV SCH (06:00)
--- NOTE | 2018-08-06 06:12 | Cat Scan Report ---
PROCEDURE: CT HEAD/BRAIN WO CON TECHNIQUE: Computerized tomography of the head was performed without contrast material. CT DOSE LENGTH PRODUCT: mGycm HISTORY: Headache COMPARISONS: None . FINDINGS: Skull and scalp: Normal . Paranasal sinuses: Normal . Ventricles and subarachnoid spaces: Normal . Cerebrum: No evidence of hemorrhage, acute infarction or mass . Cerebellum and brainstem: No evidence of hemorrhage, acute infarction or mass . Vasculature: Normal . IMPRESSION: Normal Examination . This document is electronically signed by Angel Messer MD., August 06 2018 06:09:18 AM ET
[2018-08-06] MEDS ORDERED: APRESOLINE ONE ×3 (06:18→19:51)
[2018-08-06] MEDS ORDERED: LASIX ONE (06:19)
[2018-08-06] MEDS ORDERED: MORPHINE ONE ×2 (06:28→08:49)
[2018-08-06] MEDS: MORPHINE IV PRN ×3 (06:34→23:55)
[2018-08-06] MEDS ORDERED: CARDENE 50 MG in NACL 0.9% 250ML 230 ML IV SCH (07:00)
[2018-08-06] MEDS ORDERED: KIONEX PR ONE (08:30)
[2018-08-06] MEDS ORDERED: ZOFRAN ONE (08:46)
--- NOTE | 2018-08-06 10:23 | Consultation ---
History of Present Illness - History of Present Illness Thank you for the consultation Source of information: History of presenting illness Patient is a 48-year-old male who has been admitted here with uncontrolled hypertension generalized swelling anasarca in the setting of liver disease consultation has been placed for renal replacement therapy, dialysis. patient is noted to be very poorly compliant with fluid and sodium, was last HD on monday , wants HD TTS Blood pressure was markedly elevated in the 190 range in ER mildly hyperkalemic with some evidence of acidosis Patient recently has had thoracentesis approximately 4 L were removed Patient refuses to dialyze for 4 hours, patient say that he only dialyzes for 3 hours Past medical history significant for: End-stage renal disease currently on dialysis Anemia in end-stage renal disease Secondary hyperparathyroidism chronic noncompliance Patient is being followed by Dr. Guo Cirrhosis of liver Ascites, anasarca Current allergies: Reviewed Home medication/present medication: Reviewed Social history: Reviewed from the current chart Family history: Reviewed from the current chart Review of system is positive for; All other review of systems were negative Physical examination Vitals: Reviewed from this admission Gen.: No acute distress HEENT: Normocephalic/atraumatic skull oral mucosa moist minimal pallor no icterus or uremic order Neck: Supple without any thyromegaly nodular mass or JVD Chest: Clear to auscultation anteriorly few faint basilar crackles otherwise unremarkable Heart: Regular rate and rhythm S1 and S2 heard no S3-S4 no pericardial rub Abdomen: Soft nontender no guarding rigidity rebound organomegaly no suprapubic masses, patient has dullness in the flank Back: No CVA tenderness Derm: No petechial rashes dry skin Extremity: Pulses palpable no peripheral cyanosis, 2+ edema Neurological: Alert awake follows commands Psychiatric: No agitation and aggression Labs and x-rays: Were reviewed from this admission CXR no edema Assessment and plan; Thank you for the consultation Patient was evaluated My assessment and plan are as follows End-stage renal disease currently on maintenance hemodialysis: Admitted with flu id overload, hemodialysis as tolerated, patient refuses to dialyze for 4 hours HD in am a was last HD on monday HD TTS follwo k in evening Mild hyperkalemia treat with kayexalte tomorrow Anemia in end-stage renal disease: To monitor and follow hemoglobin currently 10.9 Will give erythropoietin weekly 20,000 as needed Uncontrolled hypertension: Increase clonidine 0.2 3 times a day Secondary hyperparathyroidism: Check phosphorus as well as PTH level Polycystic kidney disease underlying, Poor compliance with diet sodium fluid Mild hyperkalemia potassium was 5.5 Metabolic acidosis requires hemodialysis for correction Admitted with uncontrolled hypertension blood pressure was 198/114 Had a detailed discussion with patient about the plan of care from renal standpoint. Due to end-stage renal disease and poor compliance patient is very high risk, his mortality risk is also high this was clearly explained to the patient All questions were answered labs and pertinent imaging findings were explained to the patient and simple [place]. Advised patient to make an appointment for follow-up with his log rafter within a week of the discharge, for proper renal care We'll continue to follow and make recommendation from renal standpoint Thank you for the consultation. Past History Past Medical History: ESRD, hypertension, hyperlipidemia, renal failure, other Past Surgical History: hernia repair (2) Social history: no significant social history Medications and Allergies Allergies Allergy/AdvReac Type Severity Reaction Status Date / Time tramadol [From Ultra] AdvReac Dizziness Verified 03/05/18 15:30 Home Medications Medication Instructions Recorded Confirmed Last Taken Type No Known Home Medications [No 08/06/18 08/06/18 Unknown History Reported Home Medications] Active Meds: Active Medications Acetaminophen (Tylenol) 650 mg PO Q4H PRN PRN Reason: Pain MILD(1-3)/Fever >100.5/SWAIN Aspirin (Aspirin) 325 mg PO QDAY [facility] Clonidine HCl (Catapres) 0.1 mg PO TID [facility] Enoxaparin Sodium (Lovenox) 30 mg SUB-Q QDAY [facility] Hydralazine HCl (Apresoline) 100 mg PO TID [facility] Hydralazine HCl (Apresoline) 10 mg IV Q4H PRN PRN Reason: Hypertension Nicardipine HCl 50 mg/ Sodium (Chloride) 250 mls @ 25 mls/hr IV TITR FOSTER; Protocol Last Admin: 08/06/18 06:34 Dose: 5 mg/hr, 25 mls/hr Documented by: Morphine Sulfate (Morphine) 2 mg IV Q5MIN PRN PRN Reason: Chest Pain unrelieved by NTG Last Admin: 08/06/18 08:50 Dose: 2 mg Documented by: Nitroglycerin (Nitrostat) 0.4 mg SL .Q5MIN PRN PRN Reason: Chest Pain Ondansetron HCl (Zofran) 4 mg IV Q8H PRN PRN Reason: Nausea And Vomiting Last Admin: 08/06/18 08:50 Dose: 4 mg Documented by: Oxycodone/Acetaminophen (Percocet 5/325) 1 tab PO Q6H PRN PRN Reason: Pain, Moderate (4-6) Sodium Chloride (Sodium Chloride Flush Syringe 10 Ml) 10 ml IV BID FOSTER Sodium Chloride (Sodium Chloride Flush Syringe 10 Ml) 10 ml IV PRN PRN PRN Reason: LINE FLUSH Exam - Vital Signs Vital signs: Vital Signs Pulse Ox 98 08/06/18 02:22 Results - Lab Results 08/06/18 03:09 08/06/18 03:09 Most recent lab results Calcium 9.3 mg/dL (8.4-10.2) 08/06/18 03:09
--- NOTE | 2018-08-06 10:33 | Consultation ---
History of Present Illness Consult date: 08/06/18 Requesting physician: YESENIA MEZA Reason for consult: other (Hypertensive Emergency; Acute Hypoxemic Respiratory Failure (on Chronic)) History of present illness: [facility] CONSULT NOTE (Full note dictated # [id number]) Please see dictated notes for full details Past History Past Medical History: ESRD, hypertension, hyperlipidemia, renal failure, other Past Surgical History: hernia repair (2) Social history: no significant social history Medications and Allergies Allergies Allergy/AdvReac Type Severity Reaction Status Date / Time tramadol [From Ultram] AdvReac Dizziness Verified 03/05/18 15:30 Home Medications Medication Instructions Recorded Confirmed Last Taken Type hydrALAZINE [Apresoline TAB] 100 mg PO TID #90 tab 04/04/18 07/23/18 07/22/18 Rx cloNIDine [Catapres] 0.1 mg PO TID #90 tablet 05/18/18 07/23/18 07/22/18 Rx Active Meds: Active Medications Acetaminophen (Tylenol) 650 mg PO Q4H PRN PRN Reason: Pain MILD(1-3)/Fever >100.5/SWAIN Aspirin (Aspirin) 325 mg PO QDAY [facility] Clonidine HCl (Catapres) 0.1 mg PO TID [facility] Enoxaparin Sodium (Lovenox) 30 mg SUB-Q QDAY [facility] Hydralazine HCl (Apresoline) 100 mg PO TID [facility] Hydralazine HCl (Apresoline) 10 mg IV Q4H PRN PRN Reason: Hypertension Nicardipine HCl 50 mg/ Sodium (Chloride) 250 mls @ 25 mls/hr IV TITR FOSTER; Protocol Last Admin: 08/06/18 06:34 Dose: 5 mg/hr, 25 mls/hr Documented by: Morphine Sulfate (Morphine) 2 mg IV Q5MIN PRN PRN Reason: Chest Pain unrelieved by NTG Last Admin: 08/06/18 08:50 Dose: 2 mg Documented by: Nitroglycerin (Nitrostat) 0.4 mg SL .Q5MIN PRN PRN Reason: Chest Pain Ondansetron HCl (Zofran) 4 mg IV Q8H PRN PRN Reason: Nausea And Vomiting Last Admin: 08/06/18 08:50 Dose: 4 mg Documented by: Oxycodone/Acetaminophen (Percocet 5/325) 1 tab PO Q6H PRN PRN Reason: Pain, Moderate (4-6) Sodium Chloride (Sodium Chloride Flush Syringe 10 Ml) 10 ml IV BID FOSTER Sodium Chloride (Sodium Chloride Flush Syringe 10 Ml) 10 ml IV PRN PRN PRN Reason: LINE FLUSH Physical Examination Vital signs: Vital Signs Pulse Ox 98 08/06/18 02:22 Results - Laboratory Findings CBC and BMP: 08/06/18 03:09 08/06/18 03:09 PT/INR, D-dimer PT 17.4 Sec. (12.2-14.9) H 08/06/18 03:09 INR 1.34 (0.87-1.13) H 08/06/18 03:09 Abnormal lab findings: Abnormal Labs 08/06/18 08/06/18 08/06/18 03:09 03:09 03:09 Hgb 10.9 L Hct 33.6 L RDW 20.7 H Seg Neuts % (Manual) 81.0 H Lymphocytes % (Manual) 13.0 L Lymphocytes # (Manual) 0.7 L PT INR Potassium 5.5 H Chloride 95.0 L Carbon Dioxide 19 L BUN 69 H Creatinine 11.0 H Troponin T 0.672 H* NT-Pro-B Natriuret Pep > 29361 H 08/06/18 08/06/18 03:09 05:51 Hgb Hct RDW Seg Neuts % (Manual) Lymphocytes % (Manual) Lymphocytes # (Manual) PT 17.4 H INR 1.34 H Potassium Chloride Carbon Dioxide BUN Creatinine Troponin T 0.584 H* NT-Pro-B Natriuret Pep
[2018-08-06] MEDS ORDERED: KIONEX ONE (12:43)
[2018-08-06] MEDS ORDERED: CATAPRES ONE ×2 (12:43→19:52)
[2018-08-06] MEDS ORDERED: ASPIRIN ONE (12:43)
[2018-08-06] MEDS ORDERED: LOVENOX SUB-Q ONE ×2 (12:44→16:05)
[2018-08-06] MEDS: SODIUM CHLORIDE FLUSH SYRINGE 10 ML IV SCH ×2 (12:45→23:47)
[2018-08-06] MEDS: CATAPRES PO SCH ×3 (13:57→19:53)
[2018-08-06] MEDS: APRESOLINE PO SCH ×3 (13:57→19:53)
[2018-08-06] MEDS: ASPIRIN PO SCH (13:59)
[2018-08-06 14:55] LABS: Albumin 3.8 g/dL (3.9-5); Bilirubin,Direct 0.3 mg/dL (0-0.2)
--- NOTE | 2018-08-06 15:07 | Procedure Note ---
Date of procedure: 08/06/18 Pre-op diagnosis: ascites Post-op diagnosis: same Procedure: US paracentesis Findings: moderate ascites Anesthesia: local Surgeon: BARTOLOME IBRAHIM Estimated blood loss: none Pathology: none Specimen disposition: discarded Condition: stable Disposition: floor
--- NOTE | 2018-08-06 15:08 | Ultrasound Report ---
ULTRASOUND PARACENTESIS HISTORY: Ascites. DESCRIPTION OF PROCEDURE: A time out was performed. Informed consent was obtained. Sterile technique was utilized. Using ultrasound guidance, a 5 Tamazight centesis needle was advanced into the peritoneal space. There was spontaneous return of clear yellow fluid. 3.8 L of fluid was drained. No complications. IMPRESSION: Successful ultrasound-guided paracentesis.
[2018-08-06] MEDS: NORMODYNE IV SCH ×2 (16:00→19:46)
[2018-08-06] MEDS: LOVENOX SUB-Q SCH (16:00)
--- NOTE | 2018-08-06 16:03 | Progress Note ---
Assessment and Plan Assessment and plan: --Hypertensive emergency; on Cardene drip Patient's blood pressures are reasonable level, we'll resume her oral antihypertensives IV when necessary medications, titrate and DC Cardene drip --End-stage renal disease; on hemodialysis Nephrology consultation, HD per schedule --Large ascites; abdominal paracentesis scheduled Large volume paracentesis to be done today Closely monitor --Chronic elevation of cardiac enzymes; [non-ST elevation IA ?2] patient was evaluated in the past by cardiology Consider cardiology evaluation if he has cardiac symptoms --Acute gastritis with history of nausea vomiting; Antiemetics IV fluids and supportive care --Fluid overload; hemodialysis per schedule --Obesity; BMI 36.9 Patient advised diet modification and weight reduction and medically stable --History of cirrhosis of liver; supportive care Patient is full CODE STATUS Closely monitor the patient and adjust management as needed History Interval history: Patient seen and examined this morning medical records reviewed Admitted with hypertensive emergency on Cardene drip Patient complains of severe nausea vomiting Abdominal paracentesis requested Patient is on Cardene drip moderate blood pressures Alert awake oriented 3 Mild distress because of vomiting Hospitalist Physical - Constitutional Vitals: Temp Pulse Resp BP Pulse Ox 84 25 H 169/86 95 08/06/18 13:57 08/06/18 12:45 08/06/18 13:57 08/06/18 12:45 General appearance: Present: mild distress, well-nourished, obese - EENT Eyes: Present: PERRL, EOM intact - Neck Neck: Present: supple, normal ROM - Respiratory Respiratory effort: normal Respiratory: bilateral: diminished, negative: rales, rhonchi, wheezing - Cardiovascular Rhythm: regular Heart Sounds: Present: S1 & S2 - Extremities Extremities: no ischemia, No edema - Abdominal General gastrointestinal: soft, non-tender, non-distended, normal bowel sounds - Integumentary Integumentary: Present: clear, warm - Psychiatric Psychiatric: appropriate mood/affect, cooperative - Neurologic Neurologic: CNII-XII intact, moves all extremities Results - Labs CBC & Chem 7: 08/06/18 03:09 08/06/18 03:09 Labs: Laboratory Last Values WBC 5.7 K/mm3 (4.5-11.0) 08/06/18 03:09 RBC 3.85 M/mm3 (3.65-5.03) 08/06/18 03:09 Hgb 10.9 gm/dl (11.8-15.2) L 08/06/18 03:09 Hct 33.6 % (35.5-45.6) L 08/06/18 03:09 MCV 87 fl (84-94) 08/06/18 03:09 MCH 28 pg (28-32) 08/06/18 03:09 MCHC 33 % (32-34) 08/06/18 03:09 RDW 20.7 % (13.2-15.2) H 08/06/18 03:09 Plt Count 179 K/mm3 (140-440) 08/06/18 03:09 Add Manual Diff Complete 08/06/18 03:09 Total Counted 100 08/06/18 03:09 Seg Neuts % (Manual) 81.0 % (40.0-70.0) H 08/06/18 03:09 Band Neutrophils % 0 % 08/06/18 03:09 Lymphocytes % (Manual) 13.0 % (13.4-35.0) L 08/06/18 03:09 Reactive Lymphs % (Man) 0 % 08/06/18 03:09 Monocytes % (Manual) 6.0 % (0.0-7.3) 08/06/18 03:09 Eosinophils % (Manual) 0 % (0.0-4.3) 08/06/18 03:09 Basophils % (Manual) 0 % (0.0-1.8) 08/06/18 03:09 Metamyelocytes % 0 % 08/06/18 03:09 Myelocytes % 0 % 08/06/18 03:09 Promyelocytes % 0 % 08/06/18 03:09 Blast Cells % 0 % 08/06/18 03:09 Nucleated RBC % Not Reportable 08/06/18 03:09 Seg Neutrophils # Man 4.6 K/mm3 (1.8-7.7) 08/06/18 03:09 Band Neutrophils # 0.0 K/mm3 08/06/18 03:09 Lymphocytes # (Manual) 0.7 K/mm3 (1.2-5.4) L 08/06/18 03:09 Abs React Lymphs (Man) 0.0 K/mm3 08/06/18 03:09 Monocytes # (Manual) 0.3 K/mm3 (0.0-0.8) 08/06/18 03:09 Eosinophils # (Manual) 0.0 K/mm3 (0.0-0.4) 08/06/18 03:09 Basophils # (Manual) 0.0 K/mm3 (0.0-0.1) 08/06/18 03:09 Metamyelocytes # 0.0 K/mm3 08/06/18 03:09 Myelocytes # 0.0 K/mm3 08/06/18 03:09 Promyelocytes # 0.0 K/mm3 08/06/18 03:09 Blast Cells # 0.0 K/mm3 08/06/18 03:09 WBC Morphology Not Reportable 08/06/18 03:09 Hypersegmented Neuts Not Reportable 08/06/18 03:09 Hyposegmented Neuts Not Reportable 08/06/18 03:09 Hypogranular Neuts Not Reportable 08/06/18 03:09 Smudge Cells Not Reportable 08/06/18 03:09 Toxic Granulation Not Reportable 08/06/18 03:09 Toxic Vacuolation Not Reportable 08/06/18 03:09 Dohle Bodies Not Reportable 08/06/18 03:09 Pelger-Huet Anomaly Not Reportable 08/06/18 03:09 Vin Rods Not Reportable 08/06/18 03:09 Platelet Estimate Appears normal 08/06/18 03:09 Clumped Platelets Not Reportable 08/06/18 03:09 Plt Clumps, EDTA Not Reportable 08/06/18 03:09 Large Platelets Not Reportable 08/06/18 03:09 Giant Platelets Not Reportable 08/06/18 03:09 Platelet Satelliting Not Reportable 08/06/18 03:09 Plt Morphology Comment Not Reportable 08/06/18 03:09 RBC Morphology Not Reportable 08/06/18 03:09 Dimorphic RBCs Not Reportable 08/06/18 03:09 Polychromasia Not Reportable 08/06/18 03:09 Hypochromasia 1+ 08/06/18 03:09 Poikilocytosis Not Reportable 08/06/18 03:09 Anisocytosis 1+ 08/06/18 03:09 Microcytosis Not Reportable 08/06/18 03:09 Macrocytosis Not Reportable 08/06/18 03:09 Spherocytes Not Reportable 08/06/18 03:09 Pappenheimer Bodies Not Reportable 08/06/18 03:09 Sickle Cells Not Reportable 08/06/18 03:09 Target Cells Rare 08/06/18 03:09 Tear Drop Cells Not Reportable 08/06/18 03:09 Ovalocytes 1+ 08/06/18 03:09 Helmet Cells Not Reportable 08/06/18 03:09 [place] Bodies Not Reportable 08/06/18 03:09 [place] Rings Not Reportable 08/06/18 03:09 [place] Cells Not Reportable 08/06/18 03:09 Bite Cells Not Reportable 08/06/18 03:09 Crenated Cell Not Reportable 08/06/18 03:09 Elliptocytes Few 08/06/18 03:09 Acanthocytes (Spur) Not Reportable 08/06/18 03:09 Rouleaux Not Reportable 08/06/18 03:09 Hemoglobin C Crystals Not Reportable 08/06/18 03:09 Schistocytes Not Reportable 08/06/18 03:09 Malaria parasites Not Reportable 08/06/18 03:09 Charbel Bodies Not Reportable 08/06/18 03:09 Hem Pathologist Commnt No 08/06/18 03:09 PT 17.4 Sec. (12.2-14.9) H 08/06/18 03:09 INR 1.34 (0.87-1.13) H 08/06/18 03:09 APTT 32.5 Sec. (24.2-36.6) 08/06/18 03:09 Sodium 138 mmol/L (137-145) 08/06/18 03:09 Potassium 5.5 mmol/L (3.6-5.0) H 08/06/18 03:09 Chloride 95.0 mmol/L (98-107) L 08/06/18 03:09 Carbon Dioxide 19 mmol/L (22-30) L 08/06/18 03:09 Anion Gap 30 mmol/L 08/06/18 03:09 BUN 69 mg/dL (9-20) H 08/06/18 03:09 Creatinine 11.0 mg/dL (0.8-1.5) H 08/06/18 03:09 Estimated GFR 6 ml/min 08/06/18 03:09 BUN/Creatinine Ratio 6 % 08/06/18 03:09 Glucose 94 mg/dL (75-100) 08/06/18 03:09 Calcium 9.3 mg/dL (8.4-10.2) 08/06/18 03:09 Total Bilirubin 0.60 mg/dL (0.1-1.2) 08/06/18 14:13 Direct Bilirubin 0.3 mg/dL (0-0.2) H 08/06/18 14:13 Indirect Bilirubin 0.3 mg/dL 08/06/18 14:13 AST 21 units/L (5-40) 08/06/18 14:13 ALT 11 units/L (7-56) 08/06/18 14:13 Alkaline Phosphatase 104 units/L (35-129) 08/06/18 14:13 Troponin T 0.584 ng/mL (0.00-0.029) H* 08/06/18 05:51 NT-Pro-B Natriuret Pep > 27660 pg/mL (0-450) H 08/06/18 03:09 Total Protein 7.6 g/dL (6.3-8.2) 08/06/18 14:13 Albumin 3.8 g/dL (3.9-5) L 08/06/18 14:13 Albumin/Globulin Ratio 1.0 % 08/06/18 14:13 Triglycerides 67 mg/dL (2-149) 08/06/18 03:09 Cholesterol 118 mg/dL (50-199) 08/06/18 03:09 LDL Cholesterol Direct 71 mg/dL (50-130) 08/06/18 03:09 HDL Cholesterol 44 mg/dL (40-59) 08/06/18 03:09 Cholesterol/HDL Ratio 2.68 % 08/06/18 03:09
[2018-08-06] MEDS ORDERED: PERCOCET 5/325 ONE (16:06)
[2018-08-06] MEDS: PERCOCET 5/325 PO PRN (16:33)
[2018-08-06 18:05] LABS: Creatine Kinase MB 11.9 ng/mL (0.0-4.0)
--- NOTE | 2018-08-07 01:56 | Consultation ---
PULMONARY CRITICAL CARE CONSULTATION NOTE CONSULTING PHYSICIAN: Mahnaz Velasco MD REASON FOR CONSULTATION: Critical care management. CHIEF COMPLAINT AND HISTORY OF PRESENT ILLNESS: The patient is a 48-year-old -Greek male with past medical history significant amongst other things for a diagnosis of congestive heart failure, end-stage renal disease, on dialysis, but also chronic ascites requiring frequent paracentesis as often as once a week of late. His ejection fraction is about 30%-35% by most recent 2D echo. He was brought into the ER by the emergency medical service with sepsis with increased shortness of breath, leg swelling, increased abdominal gas, cough and congestion has been going on for a couple of days. Denied any fevers or chills. Denied sick contacts. He could not perform his activities of daily living. In the Emergency Room, he was evaluated and amongst other things, he was found to indeed have significant reaccumulation of his ascites. However, he also was felt to have CHF exacerbation. ICU admission was requested for an acute hypoxemic respiratory failure as well as for hyperkalemia for which he required dialysis. When I stopped by to see him, he was in the paracentesis suite. He was having his paracentesis done. He was slowly beginning to feel a little bit better. He denied chest pains at that time. The lower extremity swelling is recurrent he tells me. He denies a history of venous thromboembolic phenomenon. With regards to tobacco use/abuse history, he describes himself as a never smoker. This really is as much of the history of presentation as I have. I should mention no palpitations. Again no acute chest pain. No gross or streaky hemoptysis. No bleeding diathesis. He denies missing any dialysis sessions. PAST MEDICAL HISTORY: Hypertension, congestive heart failure, systolic; gastroesophageal reflux disease; end-stage renal disease, on dialysis on Monday, , and Monday; history of recurrent ascites and right groin hernia. PAST SURGICAL HISTORY: He has a dialysis AV graft to the left upper extremity and has had repair of his hernia. MEDICATIONS: He was on at the time I stopped by to see him were reviewed. Pertinent medications included the following: He was on Tylenol 650 mg p.o. q.4 hours p.r.n. mild pain, aspirin 325 mg p.o. daily, clonidine 0.1 mg p.o. t.i.d., Lovenox 30 mg subcutaneous daily, hydralazine 100 mg p.o. t.i.d. as well as 10 mg IV q.4 hours p.r.n. systolic I believe greater than 170. Morphine sulfate 2 mg IV p.r.n. for chest pain unrelieved by nitro, nicardipine drip had been going at 5 mg per hour, Zofran 4 mg IV q.8 hours p.r.n. nausea and vomiting, Percocet 5/325 mg p.o. q.6 hours p.r.n. moderate pain. ALLERGIES: TRAMADOL, nature of this allergy is unknown. DIET: Obese gentleman, some of weight is water weight. He has gained some weight in the preceding few weeks. FAMILY AND SOCIAL HISTORY: Lives in the community. Denies alcohol, tobacco, or illicit drug use or abuse. Family history is otherwise noncontributory. REVIEW OF SYSTEMS: No loss of consciousness. No new onset seizures. No new onset focal weakness. No gross hematochezia or melena. No gross hematuria or dysuria. No hematemesis. No hemoptysis, no palpitations. Denies heat or cold intolerance. Denies polydipsia or polyuria. He does say he does not make as much urine even when he was on his diuretics at home, which he ran out of. Complete 13-system review of systems obtained. Pertinent positives and/or negatives as in body of history above, otherwise they are noncontributory. PHYSICAL EXAMINATION: VITAL SIGNS: On examination at presentation in the hospital, the first temperature I have, he was afebrile, pulse is 86, respiratory rate is 18, and blood pressure as high as 210/111. The most recent one is 179/97. GENERAL: He is a middle-aged -Greek male, obese. Normocephalic, atraumatic, talking to me in slightly interrupted sentences with mildly increased respiratory effort at rest. HEAD, EYES, EARS, NOSE AND THROAT: He is anicteric. No conjunctival erythema. Oropharynx is a Mallampati #2 oropharynx. Oropharynx is moist. No gross jugular venous distention, no thyromegaly. Grossly, no palpable lymph nodes in the supraclavicular or submandibular lymph node chains. LUNGS: Auscultation of both lung ricks significant for bibasilar inspiratory rhonchi, no wheezing. HEART: Heart sounds 1 and 2 are heard at the time of my evaluation, regular rate and rhythm. He had a soft systolic murmur. ABDOMEN: Soft, full, distended. Bowel sounds are positive, but hyperactive. He is mildly tender in the right upper quadrant region. No rebound tenderness though. EXTREMITIES: Without overt digital clubbing or cyanosis. He has 2 plus bipedal pitting edema, no significant digital clubbing or cyanosis. Dorsalis pedis pulses are palpable bilaterally. The skin is of poor turgor without overt cellulitis or rash. He does seem to have chronic stasis dermatitis rash to the lower extremities/shins. NEUROLOGIC: Pupils are equal, round, about 3 mm, reactive to light. Extraocular muscle movements are intact. He moves all 4 extremities spontaneously. PSYCHIATRIC: His mood is depressed. His affect is anxious. LABORATORY DATA: From my review are as follows: White cell count 5700, hemoglobin 10.9, hematocrit 33.6, and platelet count 179. No band forms reported. INR was 1.34. Serum sodium 138, potassium 5.5, chloride 95, bicarbonate 19, BUN 69, creatinine 11.0, and glucose 94. Troponin was up at 0.672, it is trending downwards now 0.584. BNP was elevated. Liver function tests otherwise not done. No microbiology studies. Chest x-ray has been reviewed. I have also reviewed the radiologist's interpretation. This certainly is gross cardiomegaly that cannot be missed, increased interstitial markings inconsistent with mild pulmonary edema. No focal infiltrates or obvious pneumonia. ASSESSMENT AND PLAN: 1. Hypertensive emergency. 2. Acute hypoxemic respiratory failure. 3. Recurrent ascites. 4. Mild pulmonary edema. 5. End-stage renal disease, on dialysis. 6. Obesity. 7. Gastroesophageal reflux disease. 8. Anemia that is normocytic and probably of chronic disease. 9. Elevated serum troponin, non-ST elevation myocardial infarction. 10. Mild metabolic acidosis. 11. Hyperkalemia. 12. Coagulopathy with elevated INR. PLAN: It does seem that there does not appear to be in acute pulmonary process. Despite his hypoxemia and shortness of breath, some of it is probably related to hypoventilation and increased work of breathing secondary to the significant ascites that he is dealing with. There also may be an element of mild interstitial edema. RECOMMENDATIONS: Would be as follows: 1. We will continue to introduce oral medications and wean off the Cardene drip as long as systolic blood pressures are less than about 160-170 mmHg. Use p.r.n. hydralazine or labetalol to control a systolic greater than 160 thereafter. A paracentesis is being done now that should reduce his work of breathing. Oxygen will be weaned to keep sats greater than or equal to about 90%. Bilevel positive airway pressure ventilation therapy will be offered on a p.r.n. basis. Hemodialysis decisions will be deferred to the wash barrel leader. This certainly will help with improving the pulmonary edema. I have also advised him he needs to be compliant with his care. He needs to be on the right medications including certain medications that may help reduce the degree of ascites. It is unclear if he has any primary liver disease. I will definitely order liver function tests in this gentleman, I am sure he must have been screened for hepatitis B and on dialysis. He is appropriately on DVT prophylaxis. I will put him on GI prophylaxis, especially with his history of GERD, p.r.n. analgesics will be continued. Flu and pneumonia vaccination will be addressed per protocol. Thank you very much for the consult, Dr. Velasco. We will follow along and make further recommendations as picture progresses/becomes clearer. He is critically ill on life-sustaining interventions including a nicardipine drip, at high risk of deterioration in the cardiovascular, renal systems and respiratory systems including the risk of . At this time, again I have spent about 30-35 minutes of critical care time without overlap and excluding any procedural time that may be necessary. JOB# [id number] MARLYN/FELIPE
[2018-08-07] MEDS: PERCOCET 5/325 PO PRN ×3 (02:34→21:21)
[2018-08-07] MEDS: NORMODYNE IV SCH ×2 (05:28→09:32)
[2018-08-07 07:31] LABS: Basophils % (Auto) 0.6 % (0.0-1.8); Eosinophils # (Auto) 0.1 K/mm3 (0.0-0.4); Eosinophils % (Auto) 2.1 % (0.0-4.3); Hematocrit 30.1 % (35.5-45.6); Hemoglobin 9.6 gm/dl (11.8-15.2); Lymphocytes # (Auto) 0.8 K/mm3 (1.2-5.4); Lymphocytes % (Auto) 12.3 % (13.4-35.0); Mean Corpuscular HGB Conc 32 % (32-34); Mean Corpuscular Volume 86 fl (84-94); Monocytes # (Auto) 0.8 K/mm3 (0.0-0.8); Monocytes % (Auto) 12.2 % (0.0-7.3); Platelet Count 217 K/mm3 (140-440); Red Blood Count 3.48 M/mm3 (3.65-5.03)
[2018-08-07 08:03] LABS: Red Cell Distribution Width 20.5 % (13.2-15.2)
[2018-08-07] MEDS ORDERED: NACL 0.9% 100 ML IV PRN (09:16)
--- NOTE | 2018-08-07 09:18 | Progress Note ---
Subjective Interval history: Patient was seen today for follow-up on multiple renal related issues Events of this hospitalization noted Patient denies having any chest pain pressure or shortness of breath Vitals labs intake output medications were reviewed Social history: Reviewed Allergies: Reviewed Family history: Reviewed Physical examination HEENT: Oral mucosa moist no pallor or icterus Neck: Supple no JVD Chest: Clear to auscultation anteriorly CVS: Regular rate and rhythm S1 and S2 heard Abdomen: Soft nontender no suprapubic masses no organomegaly appreciable Extremity: Dry skin less than 1+ peripheral edema Musculoskeletal: No joint effusion noted in knees and ankle Neurological: Alert awake Dermatology: No petechial rashes Psychiatry: No evidence of any agitation and aggression noted Assessment and plan End-stage renal disease: Patient will continue with hemodialysis, monitor dialysis related labs, will place him on hemodialysis Monday and Monday, current access is a fistula which has been working well No heparin during hemodialysis Generalized swelling with ascites: On periodic paracentesis Noncompliant patient: Advised to increase his treatment time to 4 hours patient refuses to do so Anemia in end-stage renal disease: Monitor hemoglobin and hematocrit, erythropoietin as needed Secondary hyperparathyroidism periodically check phosphorus and PTH level Hypertension and volume: , Adjust medications as needed, ultrafiltration as tolerated keep systolic blood pressure above 100, some of this may be resulting from noncompliance with medication diet fluid sodium Malnutrition risk: High please consider high protein diet as well as nutrition follow-up, patient needs at least 1.5 g protein per KG body weight Patient was adequately counseled and educated regarding multiple renal related issues Pertinent lab findings were discussed with patient, patient does exhibit good understanding of renal issues We'll continue to follow and make recommendation from renal standpoint Objective - Vital Signs Vital signs: Vital Signs - 12hr 08/06/18 08/07/18 08/07/18 22:00 02:00 02:33 Temperature 98.7 F Pulse Rate 71 71 Respiratory 20 Rate Blood Pressure 163/98 Blood Pressure 163/98 [Right] O2 Sat by Pulse 96 Oximetry - Lab 08/07/18 06:56 08/06/18 20:29 Most recent lab results Calcium 9.0 mg/dL (8.4-10.2) 08/06/18 20:29 Medications & Allergies - Medications Allergies/Adverse Reactions: Allergies tramadol [From Ultram] Adverse Reaction (Verified 03/05/18 15:30) Dizziness Home Medications: Home Medications Medication Instructions Recorded Confirmed Last Taken Type No Known Home Medications [No 08/06/18 08/06/18 Unknown History Reported Home Medications] Active Medications: Generic Name Dose Route Start Last Admin Trade Name Freq PRN Reason Stop Dose Admin Acetaminophen 650 mg 08/06/18 05:09 Tylenol PO Q4H PRN Pain MILD(1-3)/Fever >100.5/SWAIN Aspirin 325 mg 08/06/18 10:00 08/06/18 13:59 Aspirin PO 325 mg QDAY [facility] Administration Clonidine HCl 0.1 mg 08/06/18 08:00 08/06/18 19:53 Catapres PO Not Given TID FOSTER Enoxaparin Sodium 30 mg 08/06/18 10:00 08/06/18 16:00 Lovenox SUB-Q 30 mg QDAY FOSTER Administration Hydralazine HCl 100 mg 08/06/18 08:00 08/06/18 19:53 Apresoline PO Not Given TID FOTSER Hydralazine HCl 10 mg 08/06/18 08:00 08/07/18 02:33 Apresoline IV 10 mg Q4H PRN Administration Hypertension Nicardipine HCl 50 mg/ Sodium 250 mls @ 25 mls/hr 08/06/18 07:00 08/06/18 06:34 Chloride IV 5 mg/hr TITR FOSTER 25 mls/hr Administration Protocol 5 MG/HR Labetalol HCl 10 mg 08/06/18 14:00 08/07/18 05:28 Normodyne IV 08/07/18 13:59 Not Given Q6H [facility] Morphine Sulfate 2 mg 08/06/18 05:07 08/06/18 23:55 Morphine IV 2 mg Q5MIN PRN Administration Chest Pain unrelieved by NTG Nitroglycerin 0.4 mg 08/06/18 05:07 Nitrostat SL .Q5MIN PRN Chest Pain Ondansetron HCl 4 mg 08/06/18 05:09 08/06/18 08:50 Zofran IV 4 mg Q8H PRN Administration Nausea And Vomiting Oxycodone/Acetaminophen 1 tab 08/06/18 05:09 08/07/18 02:34 Percocet 5/325 PO 1 tab Q6H PRN Administration Pain, Moderate (4-6) Sodium Chloride 10 ml 08/06/18 10:00 08/06/18 23:47 Sodium Chloride Flush Syringe 10 Ml IV 10 ml BID FOSTER Administration Sodium Chloride 10 ml 08/06/18 05:09 Sodium Chloride Flush Syringe 10 Ml IV PRN PRN LINE FLUSH
[2018-08-07] MEDS: LOVENOX SUB-Q SCH (09:23)
[2018-08-07] MEDS: APRESOLINE PO SCH ×3 (09:23→21:22)
[2018-08-07 09:24] LABS: Calcium 9.1 mg/dL (8.4-10.2)
[2018-08-07] MEDS: CATAPRES PO SCH ×3 (09:24→21:22)
[2018-08-07] MEDS: ASPIRIN PO SCH (09:25)
[2018-08-07] MEDS: SODIUM CHLORIDE FLUSH SYRINGE 10 ML IV SCH ×2 (09:32→21:22)
[2018-08-07] MEDS ORDERED: NACL 0.9 (PRIMING MACHINE ONLY DIALYSIS) MC ONE (14:45)
--- NOTE | 2018-08-07 14:45 | Progress Note ---
Assessment and Plan Patient receiving hemodialysis. Resting on room air. No complaint of chest pain, shortness of breath or cough. - Patient Problems (1) Acute respiratory distress Current Visit: No Status: Acute Plan to address problem: Improved. Patient is on room air. No complaint of shortness of breath or cough. Patient is on S/C Lovenox. (2) Acute on chronic renal failure Current Visit: Yes Status: Acute Qualifiers: Acute renal failure type: unspecified Chronic kidney disease stage: unspecified stage Qualified Code(s): N17.9 - Acute kidney failure, unspecified; N18.9 - Chronic kidney disease, unspecified Plan to address problem: Patient is on hemodialysis. Management as per nephrology. (3) Acute on chronic combined systolic and diastolic congestive heart failure Current Visit: No Status: Acute Plan to address problem: Management as per cardiology. (4) HTN (hypertension) Current Visit: No Status: Acute Qualifiers: Hypertension type: essential hypertension Qualified Code(s): I10 - Essential (primary) hypertension Plan to address problem: Management as per primary care. Subjective Date of service: 08/07/18 Interval history: Patient receiving hemodialysis. Resting on room air. No complaint of chest pain, shortness of breath or cough. Objective Vital Signs - 12hr 08/07/18 08/07/18 08/07/18 09:24 09:50 10:05 Temperature 98.2 F Pulse Rate 69 68 Respiratory 18 Rate Blood Pressure 164/92 171/93 163/89 08/07/18 08/07/18 08/07/18 10:15 10:30 10:45 Temperature Pulse Rate 67 68 67 Respiratory Rate Blood Pressure 160/99 166/102 155/95 08/07/18 08/07/18 08/07/18 11:00 11:15 11:30 Temperature Pulse Rate 66 65 66 Respiratory Rate Blood Pressure 149/87 148/84 144/84 Constitutional: no acute distress, alert Eyes: non-icteric ENT: oropharynx moist Neck: supple, no lymphadenopathy Ascultation: Bilateral: diminished breath sounds Cardiovascular: regular rate and rhythm Gastrointestinal: normoactive bowel sounds, soft, non-tender, other (Slightly distended.) Integumentary: normal Extremities: no cyanosis, no edema Neurologic: normal mental status, non-focal exam, pupils equal and round, CN II- XII normal Psychiatric: mood appropriate CBC and BMP: 08/07/18 06:56 08/07/18 06:56 ABG, PT/INR, D-dimer: PT/INR, D-dimer PT 17.4 Sec. (12.2-14.9) H 08/06/18 03:09 INR 1.34 (0.87-1.13) H 08/06/18 03:09 Abnormal lab findings: Abnormal Labs 08/06/18 08/06/18 08/06/18 03:09 03:09 03:09 RBC Hgb 10.9 L Hct 33.6 L RDW 20.7 H Lymph % (Auto) [place] % (Auto) Lymph # Seg Neutrophils % Seg Neuts % (Manual) 81.0 H Lymphocytes % (Manual) 13.0 L Lymphocytes # (Manual) 0.7 L PT INR Potassium 5.5 H Chloride 95.0 L Carbon Dioxide 19 L BUN 69 H Creatinine 11.0 H Glucose Direct Bilirubin Total Creatine Kinase CK-MB (CK-2) Troponin T 0.672 H* NT-Pro-B Natriuret Pep > 51090 H Albumin 08/06/18 08/06/18 08/06/18 03:09 05:51 14:13 RBC Hgb Hct RDW Lymph % (Auto) [place] % (Auto) Lymph # Seg Neutrophils % Seg Neuts % (Manual) Lymphocytes % (Manual) Lymphocytes # (Manual) PT 17.4 H INR 1.34 H Potassium Chloride Carbon Dioxide BUN Creatinine Glucose Direct Bilirubin 0.3 H Total Creatine Kinase CK-MB (CK-2) Troponin T 0.584 H* NT-Pro-B Natriuret Pep Albumin 3.8 L 08/06/18 08/06/18 08/06/18 17:31 20:29 20:29 RBC Hgb Hct RDW Lymph % (Auto) [place] % (Auto) Lymph # Seg Neutrophils % Seg Neuts % (Manual) Lymphocytes % (Manual) Lymphocytes # (Manual) PT INR Potassium 5.2 H Chloride Carbon Dioxide BUN 76 H Creatinine 11.5 H Glucose 118 H Direct Bilirubin Total Creatine Kinase 1283 H CK-MB (CK-2) 11.9 H Troponin T 0.579 H* 0.612 H* NT-Pro-B Natriuret Pep Albumin 08/07/18 08/07/18 06:56 06:56 RBC 3.48 L Hgb 9.6 L Hct 30.1 L RDW 20.5 H Lymph % (Auto) 12.3 L [place] % (Auto) 12.2 H Lymph # 0.8 L Seg Neutrophils % 72.8 H Seg Neuts % (Manual) Lymphocytes % (Manual) Lymphocytes # (Manual) PT INR Potassium 5.8 H Chloride Carbon Dioxide 19 L BUN 79 H Creatinine 11.7 H Glucose Direct Bilirubin Total Creatine Kinase CK-MB (CK-2) Troponin T NT-Pro-B Natriuret Pep Albumin Chest x-ray: report reviewed (Cardiomegaly.), image reviewed
--- NOTE | 2018-08-07 15:02 | Progress Note ---
Assessment and Plan Assessment and plan: Patient is a 48 yo man with a history of hypertension, CHF EF 30-35%, CMP, chronically elevated troponins, GERD, PKD, ESRD on TTh, hypothyroidism, AOCD, Dilated CMP, chronic anemia and recurrent ascities requiring frequent paracentesis who presented with sob. He left AMA from here on 07/23/18 after 3.5 liters drained during paracentesis and 3-3.5 liters removed during HD. He returned on 08/06/18 with similar complaints. He has not seen outpatient GI as instructed. He underwent paracentesis today with ~3 liters removed and HD with another 3 liters removed. Ascites s/p paracentesis: consulted GI Acute on Chronic combined heart failure: increased ultrafiltration during HD End-stage renal disease on hemodialysis: Nephrology is following. Nonischemic Cardiomyopathy, EF 30-35% by echo 12/2017, no ischemia on MPI 12/2017 Hypertension: iv hydralazine prn Hypothyroidism: repeat TSH disposition: continue inpatient care, await GI evaluation. anticipate discharge tomorrow. History Interval history: Patient was seen and examined. Follow-up on current diagnosis of SOB improved after HD and paracentesis. Overnight uneventful. Patient denies any chest pain, shortness breath, nausea/vomiting or severe headaches. Imaging, nursing note, chart, labs and old chart reviewed. Discussed with patient. Hospitalist Physical - Physical exam Narrative exam: GEN: WDWN, NAD, Awake, Alert, Orientated HEENT: NCAT, EOMI, PERRL, OP Clear NECK: supple, no adenopathy, no thyromegaly, no JVD CVS/HEART: RRR, normal S1S2, pulses present bilaterally CHEST/LUNGS: diminished bs bilaterally, Symmetrical chest expansion, good air entry bilaterally GI/Abdomen: soft, nontender distended, good bowel sounds, no guarding or rebound /Bladder: no suprapubic tenderness, no CVA or paraspinal tenderness EXT/Skin: bilateral leg edema with chronic venous stasis, no obvious rash MSK: FROM x 4 Neuro: CN 2-12 grossly intact, no new focal deficits Psych: calm - Constitutional Vitals: Temp Pulse Resp BP Pulse Ox 98.2 F 66 18 144/84 96 08/07/18 09:50 08/07/18 11:30 08/07/18 09:50 08/07/18 11:30 08/06/18 22:00 General appearance: Present: well-nourished, obese Results - Labs CBC & Chem 7: 08/07/18 06:56 08/07/18 06:56 Labs: Laboratory Last Values WBC 6.6 K/mm3 (4.5-11.0) 08/07/18 06:56 RBC 3.48 M/mm3 (3.65-5.03) L 08/07/18 06:56 Hgb 9.6 gm/dl (11.8-15.2) L 08/07/18 06:56 Hct 30.1 % (35.5-45.6) L 08/07/18 06:56 MCV 86 fl (84-94) 08/07/18 06:56 MCH 28 pg (28-32) 08/07/18 06:56 MCHC 32 % (32-34) 08/07/18 06:56 RDW 20.5 % (13.2-15.2) H 08/07/18 06:56 Plt Count 217 K/mm3 (140-440) 08/07/18 06:56 Lymph % (Auto) 12.3 % (13.4-35.0) L 08/07/18 06:56 [place] % (Auto) 12.2 % (0.0-7.3) H 08/07/18 06:56 Eos % (Auto) 2.1 % (0.0-4.3) 08/07/18 06:56 Baso % (Auto) 0.6 % (0.0-1.8) 08/07/18 06:56 Lymph # 0.8 K/mm3 (1.2-5.4) L 08/07/18 06:56 [place] # 0.8 K/mm3 (0.0-0.8) 08/07/18 06:56 Eos # 0.1 K/mm3 (0.0-0.4) 08/07/18 06:56 Baso # 0.0 K/mm3 (0.0-0.1) 08/07/18 06:56 Add Manual Diff Complete 08/06/18 03:09 Total Counted 100 08/06/18 03:09 Seg Neutrophils % 72.8 % (40.0-70.0) H 08/07/18 06:56 Seg Neuts % (Manual) 81.0 % (40.0-70.0) H 08/06/18 03:09 Band Neutrophils % 0 % 08/06/18 03:09 Lymphocytes % (Manual) 13.0 % (13.4-35.0) L 08/06/18 03:09 Reactive Lymphs % (Man) 0 % 08/06/18 03:09 Monocytes % (Manual) 6.0 % (0.0-7.3) 08/06/18 03:09 Eosinophils % (Manual) 0 % (0.0-4.3) 08/06/18 03:09 Basophils % (Manual) 0 % (0.0-1.8) 08/06/18 03:09 Metamyelocytes % 0 % 08/06/18 03:09 Myelocytes % 0 % 08/06/18 03:09 Promyelocytes % 0 % 08/06/18 03:09 Blast Cells % 0 % 08/06/18 03:09 Nucleated RBC % Not Reportable 08/06/18 03:09 Seg Neutrophils # 4.8 K/mm3 (1.8-7.7) 08/07/18 06:56 Seg Neutrophils # Man 4.6 K/mm3 (1.8-7.7) 08/06/18 03:09 Band Neutrophils # 0.0 K/mm3 08/06/18 03:09 Lymphocytes # (Manual) 0.7 K/mm3 (1.2-5.4) L 08/06/18 03:09 Abs React Lymphs (Man) 0.0 K/mm3 08/06/18 03:09 Monocytes # (Manual) 0.3 K/mm3 (0.0-0.8) 08/06/18 03:09 Eosinophils # (Manual) 0.0 K/mm3 (0.0-0.4) 08/06/18 03:09 Basophils # (Manual) 0.0 K/mm3 (0.0-0.1) 08/06/18 03:09 Metamyelocytes # 0.0 K/mm3 08/06/18 03:09 Myelocytes # 0.0 K/mm3 08/06/18 03:09 Promyelocytes # 0.0 K/mm3 08/06/18 03:09 Blast Cells # 0.0 K/mm3 08/06/18 03:09 WBC Morphology Not Reportable 08/06/18 03:09 Hypersegmented Neuts Not Reportable 08/06/18 03:09 Hyposegmented Neuts Not Reportable 08/06/18 03:09 Hypogranular Neuts Not Reportable 08/06/18 03:09 Smudge Cells Not Reportable 08/06/18 03:09 Toxic Granulation Not Reportable 08/06/18 03:09 Toxic Vacuolation Not Reportable 08/06/18 03:09 Dohle Bodies Not Reportable 08/06/18 03:09 Pelger-Huet Anomaly Not Reportable 08/06/18 03:09 Vin Rods Not Reportable 08/06/18 03:09 Platelet Estimate Appears normal 08/06/18 03:09 Clumped Platelets Not Reportable 08/06/18 03:09 Plt Clumps, EDTA Not Reportable 08/06/18 03:09 Large Platelets Not Reportable 08/06/18 03:09 Giant Platelets Not Reportable 08/06/18 03:09 Platelet Satelliting Not Reportable 08/06/18 03:09 Plt Morphology Comment Not Reportable 08/06/18 03:09 RBC Morphology Not Reportable 08/06/18 03:09 Dimorphic RBCs Not Reportable 08/06/18 03:09 Polychromasia Not Reportable 08/06/18 03:09 Hypochromasia 1+ 08/06/18 03:09 Poikilocytosis Not Reportable 08/06/18 03:09 Anisocytosis 1+ 08/06/18 03:09 Microcytosis Not Reportable 08/06/18 03:09 Macrocytosis Not Reportable 08/06/18 03:09 Spherocytes Not Reportable 08/06/18 03:09 Pappenheimer Bodies Not Reportable 08/06/18 03:09 Sickle Cells Not Reportable 08/06/18 03:09 Target Cells Rare 08/06/18 03:09 Tear Drop Cells Not Reportable 08/06/18 03:09 Ovalocytes 1+ 08/06/18 03:09 Helmet Cells Not Reportable 08/06/18 03:09 [place] Bodies Not Reportable 08/06/18 03:09 [place] Rings Not Reportable 08/06/18 03:09 [place] Cells Not Reportable 08/06/18 03:09 Bite Cells Not Reportable 08/06/18 03:09 Crenated Cell Not Reportable 08/06/18 03:09 Elliptocytes Few 08/06/18 03:09 Acanthocytes (Spur) Not Reportable 08/06/18 03:09 Rouleaux Not Reportable 08/06/18 03:09 Hemoglobin C Crystals Not Reportable 08/06/18 03:09 Schistocytes Not Reportable 08/06/18 03:09 Malaria parasites Not Reportable 08/06/18 03:09 Charbel Bodies Not Reportable 08/06/18 03:09 Hem Pathologist Commnt No 08/06/18 03:09 PT 17.4 Sec. (12.2-14.9) H 08/06/18 03:09 INR 1.34 (0.87-1.13) H 08/06/18 03:09 APTT 32.5 Sec. (24.2-36.6) 08/06/18 03:09 Sodium 138 mmol/L (137-145) 08/07/18 06:56 Potassium 5.8 mmol/L (3.6-5.0) H 08/07/18 06:56 Chloride 103.5 mmol/L (98-107) 08/07/18 06:56 Carbon Dioxide 19 mmol/L (22-30) L 08/07/18 06:56 Anion Gap 13 mmol/L 08/07/18 06:56 BUN 79 mg/dL (9-20) H 08/07/18 06:56 Creatinine 11.7 mg/dL (0.8-1.5) H 08/07/18 06:56 Estimated GFR 6 ml/min 08/07/18 06:56 BUN/Creatinine Ratio 7 % 08/07/18 06:56 Glucose 97 mg/dL (75-100) 08/07/18 06:56 Calcium 9.1 mg/dL (8.4-10.2) 08/07/18 06:56 Total Bilirubin 0.60 mg/dL (0.1-1.2) 08/06/18 14:13 Direct Bilirubin 0.3 mg/dL (0-0.2) H 08/06/18 14:13 Indirect Bilirubin 0.3 mg/dL 08/06/18 14:13 AST 21 units/L (5-40) 08/06/18 14:13 ALT 11 units/L (7-56) 08/06/18 14:13 Alkaline Phosphatase 104 units/L (35-129) 08/06/18 14:13 Total Creatine Kinase 1283 units/L (55-170) H 08/06/18 17:31 CK-MB (CK-2) 11.9 ng/mL (0.0-4.0) H 08/06/18 17:31 CK-MB (CK-2) Rel Index 0.9 (0-4) 08/06/18 17:31 Troponin T 0.612 ng/mL (0.00-0.029) H* 08/06/18 20:29 NT-Pro-B Natriuret Pep > 24722 pg/mL (0-450) H 08/06/18 03:09 Total Protein 7.6 g/dL (6.3-8.2) 08/06/18 14:13 Albumin 3.8 g/dL (3.9-5) L 08/06/18 14:13 Albumin/Globulin Ratio 1.0 % 08/06/18 14:13 Triglycerides 67 mg/dL (2-149) 08/06/18 03:09 Cholesterol 118 mg/dL (50-199) 08/06/18 03:09 LDL Cholesterol Direct 71 mg/dL (50-130) 08/06/18 03:09 HDL Cholesterol 44 mg/dL (40-59) 08/06/18 03:09 Cholesterol/HDL Ratio 2.68 % 08/06/18 03:09
--- NOTE | 2018-08-07 16:27 | Event Note ---
Date: 08/07/18 - full GI consult dictated - pt sen by our service end last year and early this year for ascites - workup felt cardiac and not liver related ascites - pt stable after LVP, no need further GI intervention at this time - of note p[t has appointment with Dr. Thakkar in our office and can follow up - will sign off, call if needed
--- NOTE | 2018-08-08 01:03 | Consultation ---
REFERRING PHYSICIAN: Contreras Johnson MD INDICATION: Ascites. HISTORY OF PRESENT ILLNESS: The patient is a 48-year-old black male with history of polycystic kidney disease, end-stage renal disease, on dialysis; hypertension as well as CHF. The patient was admitted with weakness and volume overload and had a paracentesis performed yesterday 08/06/2018, which is the day of admission. GI is consulted for possible cirrhosis and liver disease. The patient had been seen by our service at [facility] 2-3 times at the end of last year and earlier this year. During that time, the patient had evaluation including ultrasound, paracentesis, which showed a sac of over 1.3 as well as Doppler ultrasound, which was negative. It was felt and concluded at that time that the patient's ascites was secondary to his cardiac disease with his renal disease being a secondary contributing factor. The patient reports he has been seeing his infant teacher and has been told that his heart is not beating hard enough. He denies any history of any known liver disease. Denies any family history of liver disease. Denies any other specific complaints. PAST MEDICAL HISTORY: 1. End-stage renal disease, on dialysis. 2. Hypertension. 3. High cholesterol. 4. Renal failure. PAST SURGICAL HISTORY: Hernia repair x 2. ALLERGIES: TRAMADOL. MEDICATIONS: Seen, reviewed and updated in chart. SOCIAL HISTORY: Denies alcohol, tobacco or drug abuse. FAMILY HISTORY: Negative for colon cancer or liver disease. REVIEW OF SYSTEMS: GENERAL: Reports mild weakness. HEENT: No visual complaints or tinnitus. PULMONARY: No shortness of breath. CARDIOVASCULAR: No chest pain. GASTROINTESTINAL: Reports some abdominal distention. All points of 13-point review of systems otherwise negative. PHYSICAL EXAMINATION: VITAL SIGNS: Temperature of 97.8, pulse 77, respirations 20, blood pressure 164/87. GENERAL: Somewhat obese male, in no acute distress. HEENT: Pupils equal, round, and reactive. PULMONARY: Clear to auscultation bilaterally. CARDIOVASCULAR: Regular rhythm. Normal S1, S2. ABDOMEN: Positive bowel sounds, soft. SKIN: No rashes. LABORATORY DATA: Pertinent for white count of 6.6, hemoglobin and hematocrit 9.6 and 30.1, platelet count of 217. Chem-7 pertinent for BUN and creatinine of 79 and 1.2. AST, ALT, total bilirubin and alkaline phosphatase all within normal limits. ASSESSMENT AND PLAN: A 48-year-old male with history of congestive heart failure with a low ejection fraction as well as history of end-stage renal disease, on dialysis and other medical problems as noted above. He has been seen by GI for ascites. The patient reports he has had recurrent paracentesis. The patient had been seen by our service in the end of last year and earlier this year. Evaluation included imaging as well as labs with the conclusion that his ascites was not a liver related and more is likely secondary to his cardiac disease with secondary renal component. Given a full evaluation in the past, the patient is otherwise stable and status post paracentesis with no GI or liver complaints at this time. I see no need for further evaluation. Of note, the patient reports he was supposed to see Dr. Huffman in our office yesterday, but was admitted. Management is noted below. PLAN: 1. Cardiac evaluation. Management per cardiac team. 2. Renal input noted. 3. The patient is status post paracentesis and now stable and no need for repeat at this time. 4. The patient can follow up with Dr. Pyle as an outpatient. 5. The patient is otherwise stable from GI standpoint and see no need for further intervention at this time. We will sign off, call if needed. JOB# [id number] CAB/NTS
[2018-08-08 05:46] VITALS: BP 165/90
[2018-08-08] MEDS: APRESOLINE PO SCH (08:20)
[2018-08-08] MEDS: CATAPRES PO SCH (08:20)
[2018-08-08] MEDS: ASPIRIN PO SCH (09:18)
[2018-08-08] MEDS: LOVENOX SUB-Q SCH (09:18)
[2018-08-08] MEDS: SODIUM CHLORIDE FLUSH SYRINGE 10 ML IV SCH (09:18)
--- NOTE | 2018-08-08 09:27 | Progress Note ---
Subjective Interval history: Patient was seen today for follow-up on multiple renal related issues Events of this hospitalization noted Tolerated dialysis treatment fairly well Currently on Monday schedule Patient denies having any chest pain pressure or shortness of breath Vitals labs intake output medications were reviewed Social history: Reviewed Allergies: Reviewed Family history: Reviewed Physical examination HEENT: Oral mucosa moist no pallor or icterus Neck: Supple no JVD Chest: Clear to auscultation anteriorly CVS: Regular rate and rhythm S1 and S2 heard Abdomen: Soft nontender no suprapubic masses no organomegaly appreciable Extremity: Dry skin less than 1+ peripheral edema Musculoskeletal: No joint effusion noted in knees and ankle Neurological: Alert awake Dermatology: No petechial rashes Psychiatry: No evidence of any agitation and aggression noted Assessment and plan End-stage renal disease: Patient will continue with hemodialysis, monitor dialysis related labs, will place him on hemodialysis Monday and Monday, current access is a fistula which has been working well No heparin during hemodialysis Generalized swelling with ascites: On periodic paracentesis, followed by gastroe nterology We'll check basic metabolic profile today patient has had mild hyperkalemia 5.8 Noncompliant patient: Advised to increase his treatment time to 4 hours patient refuses to do so Anemia in end-stage renal disease: Monitor hemoglobin and hematocrit, erythropoietin as needed Educated about diet and lifestyle changes fluid restriction sodium restriction Prognosis is poor Objective - Vital Signs Vital signs: Vital Signs - 12hr 08/07/18 08/08/18 08/08/18 22:00 04:48 08:20 Temperature 98.4 F Pulse Rate 77 77 Respiratory 24 Rate Blood Pressure 165/90 165/90 O2 Sat by Pulse 96 94 Oximetry - Lab 08/07/18 06:56 08/07/18 06:56 Most recent lab results Calcium 9.1 mg/dL (8.4-10.2) 08/07/18 06:56 Medications & Allergies - Medications Allergies/Adverse Reactions: Allergies tramadol [From Ultram] Adverse Reaction (Verified 03/05/18 15:30) Dizziness Home Medications: Home Medications Medication Instructions Recorded Confirmed Last Taken Type No Known Home Medications [No 08/06/18 08/06/18 Unknown History Reported Home Medications] Active Medications: Generic Name Dose Route Start Last Admin Trade Name Freq PRN Reason Stop Dose Admin Acetaminophen 650 mg 08/06/18 05:09 Tylenol PO Q4H PRN Pain MILD(1-3)/Fever >100.5/SWAIN Aspirin 325 mg 08/06/18 10:00 08/08/18 09:18 Aspirin PO 325 mg QDAY FOSTER Administration Clonidine HCl 0.1 mg 08/06/18 08:00 08/08/18 08:20 Catapres PO 0.1 mg TID FOSTER Administration Enoxaparin Sodium 30 mg 08/06/18 10:00 08/08/18 09:18 Lovenox SUB-Q 30 mg QDAY FOSTER Administration Hydralazine HCl 100 mg 08/06/18 08:00 08/08/18 08:20 Apresoline PO 100 mg TID FOSTER Administration Hydralazine HCl 10 mg 08/06/18 08:00 08/07/18 02:33 Apresoline IV 10 mg Q4H PRN Administration Hypertension Nicardipine HCl 50 mg/ Sodium 250 mls @ 25 mls/hr 08/06/18 07:00 08/06/18 06:34 Chloride IV 5 mg/hr TITR FOSTER 25 mls/hr Administration Protocol 5 MG/HR Sodium Chloride 100 mls @ 999 mls/hr 08/07/18 09:16 Nacl 0.9% IV JULIA PRN Hypotension Morphine Sulfate 2 mg 08/06/18 05:07 08/06/18 23:55 Morphine IV 2 mg Q5MIN PRN Administration Chest Pain unrelieved by NTG Nitroglycerin 0.4 mg 08/06/18 05:07 Nitrostat SL .Q5MIN PRN Chest Pain Ondansetron HCl 4 mg 08/06/18 05:09 08/06/18 08:50 Zofran IV 4 mg Q8H PRN Administration Nausea And Vomiting Oxycodone/Acetaminophen 1 tab 08/06/18 05:09 08/07/18 21:21 Percocet 5/325 PO 1 tab Q6H PRN Administration Pain, Moderate (4-6) Sodium Chloride 10 ml 08/06/18 10:00 08/08/18 09:18 Sodium Chloride Flush Syringe 10 Ml IV 10 ml BID FOSTER Administration Sodium Chloride 10 ml 08/06/18 05:09 Sodium Chloride Flush Syringe 10 Ml IV PRN PRN LINE FLUSH
--- NOTE | 2018-08-08 10:21 | Progress Note ---
Assessment and Plan Resting on room air. O2 saturation 94%.No complaint of chest pain, shortness of breath or cough. Patient about to discharge to go home. - Patient Problems (1) Acute respiratory distress Status: Acute Plan to address problem: Improved. Patient is on room air. No complaint of shortness of breath or cough. Patient is on S/C Lovenox. (2) Acute on chronic renal failure Status: Acute Qualifiers: Acute renal failure type: unspecified Chronic kidney disease stage: unspecified stage Qualified Code(s): N17.9 - Acute kidney failure, uns pecified; N18.9 - Chronic kidney disease, unspecified Plan to address problem: Patient is on hemodialysis. Management as per nephrology. (3) Acute on chronic combined systolic and diastolic congestive heart failure Status: Acute Plan to address problem: Management as per cardiology. (4) HTN (hypertension) Status: Acute Qualifiers: Hypertension type: essential hypertension Qualified Code(s): I10 - Ess ential (primary) hypertension Plan to address problem: Management as per primary care. Subjective Date of service: 08/08/18 Interval history: Resting on room air. O2 saturation 94%.No complaint of chest pain, shortness of breath or cough. Patient about to discharge to go home. Objective Vital Signs - 12hr 08/08/18 08/08/18 08/08/18 04:48 08:20 09:26 Temperature 98.4 F Pulse Rate 77 77 Pulse Rate [ 77 Right Radial] Respiratory 24 20 Rate Blood Pressure 165/90 165/90 O2 Sat by Pulse 94 Oximetry Constitutional: no acute distress, alert Eyes: non-icteric ENT: oropharynx moist Neck: supple, no lymphadenopathy Ascultation: Bilateral: diminished breath sounds Cardiovascular: regular rate and rhythm Gastrointestinal: normoactive bowel sounds, soft, non-tender, other (Slightly distended.) Integumentary: normal Extremities: no cyanosis, no edema Neurologic: normal mental status, non-focal exam, pupils equal and round, CN II- XII normal Psychiatric: mood appropriate CBC and BMP: 08/07/18 06:56 08/07/18 06:56 ABG, PT/INR, D-dimer: PT/INR, D-dimer PT 17.4 Sec. (12.2-14.9) H 08/06/18 03:09 INR 1.34 (0.87-1.13) H 08/06/18 03:09 Abnormal lab findings: Abnormal Labs 08/06/18 08/06/18 08/06/18 03:09 03:09 03:09 RBC Hgb 10.9 L Hct 33.6 L RDW 20.7 H Lymph % (Auto) [place] % (Auto) Lymph # Seg Neutrophils % Seg Neuts % (Manual) 81.0 H Lymphocytes % (Manual) 13.0 L Lymphocytes # (Manual) 0.7 L PT INR Potassium 5.5 H Chloride 95.0 L Carbon Dioxide 19 L BUN 69 H Creatinine 11.0 H Glucose Direct Bilirubin Total Creatine Kinase CK-MB (CK-2) Troponin T 0.672 H* NT-Pro-B Natriuret Pep > 87531 H Albumin 08/06/18 08/06/18 08/06/18 03:09 05:51 14:13 RBC Hgb Hct RDW Lymph % (Auto) [place] % (Auto) Lymph # Seg Neutrophils % Seg Neuts % (Manual) Lymphocytes % (Manual) Lymphocytes # (Manual) PT 17.4 H INR 1.34 H Potassium Chloride Carbon Dioxide BUN Creatinine Glucose Direct Bilirubin 0.3 H Total Creatine Kinase CK-MB (CK-2) Troponin T 0.584 H* NT-Pro-B Natriuret Pep Albumin 3.8 L 08/06/18 08/06/18 08/06/18 17:31 20:29 20:29 RBC Hgb Hct RDW Lymph % (Auto) [place] % (Auto) Lymph # Seg Neutrophils % Seg Neuts % (Manual) Lymphocytes % (Manual) Lymphocytes # (Manual) PT INR Potassium 5.2 H Chloride Carbon Dioxide BUN 76 H Creatinine 11.5 H Glucose 118 H Direct Bilirubin Total Creatine Kinase 1283 H CK-MB (CK-2) 11.9 H Troponin T 0.579 H* 0.612 H* NT-Pro-B Natriuret Pep Albumin 08/07/18 08/07/18 06:56 06:56 RBC 3.48 L Hgb 9.6 L Hct 30.1 L RDW 20.5 H Lymph % (Auto) 12.3 L [place] % (Auto) 12.2 H Lymph # 0.8 L Seg Neutrophils % 72.8 H Seg Neuts % (Manual) Lymphocytes % (Manual) Lymphocytes # (Manual) PT INR Potassium 5.8 H Chloride Carbon Dioxide 19 L BUN 79 H Creatinine 11.7 H Glucose Direct Bilirubin Total Creatine Kinase CK-MB (CK-2) Troponin T NT-Pro-B Natriuret Pep Albumin
--- NOTE | 2018-08-08 11:01 | Discharge Summary ---
Providers - Providers Date of Admission: 08/06/18 05:58 Date of discharge: 08/08/18 Attending physician: REBA CAREY 08/06/18 05:00 Consult to Interventional Radiology [CONS] Routine Consulting Provider: JEREMIAH CERDA Reason For Exam: paracentesis Place consult to:: DR. CERDA Notified:: DR. CERDA Phone number called:: IN HOUSE Was contact made?: Yes If yes, spoke with:: DR. CERDA Time called:: 09:13 08/06/18 05:09 Consult to Physician [CONS] Routine Comment: Consulting Provider: VA RYAN Physician Instructions: Reason For Exam: hd 08/06/18 06:05 Consult to Physician [CONS] Routine Comment: Consulting Provider: PRAVEENA CORTES Physician Instructions: Reason For Exam: cc 08/07/18 14:59 Consult to Physician [CONS] Routine Comment: Consulting Provider: ONEL ENAMORADO Physician Instructions: Reason For Exam: Ascites, recurrent paracentesis Primary care physician: [employer] Hospitalization Condition: Stable Hospital course: Patient is a 48 yo man with a history of hypertension, CHF EF 30-35%, CMP, chronically elevated troponins, GERD, PKD, ESRD on TTh, hypothyroidism, AOCD, Dilated CMP, chronic anemia and recurrent ascities requiring frequent paracentesis who presented with sob. He left AMA from here on 07/23/18 after 3.5 liters drained during paracentesis and 3-3.5 liters removed during HD. He returned on 08/06/18 with similar complaints. He has not seen outpatient GI as instructed. He underwent paracentesis today with ~3 liters removed and HD with another 3 liters removed. Ascites s/p paracentesis: consulted GI Acute on Chronic combined heart failure: increased ultrafiltration during HD End-stage renal disease on hemodialysis: Nephrology is following. Nonischemic Cardiomyopathy, EF 30-35% by echo 12/2017, no ischemia on MPI 12/2017 Hypertension: iv hydralazine prn, out of clonidine, assessment counselor on compliance Hypothyroidism: TSH with pcp per GI: Ascites related to NICMP/CHF, not liver Disposition: DC-01 TO HOME OR SELFCARE Time spent for discharge: 34 minutes Core Measure Documentation - Palliative Care Palliative Care/ Comfort Measures: Not Applicable - Core Measures Any of the following diagnoses?: heart failure - VTE Discharge Requirements Deep Vein Thrombosis/Pulmonary Embolism Present on Admission: No Has pt received <5 days of overlap therapy or INR<2.0: No Anticoagulant overlap therapy prescribed at discharge: No Contraindication No Overlap Therapy order at DC: Not Indicated - Heart Failure Discharge Requirements DIANE/ARB for LVSD if EF <40%: No Reason for no DIANE/ARB: Renal impairment Beta lexy at discharge: No Reason for no beta lexy on DC: Bradycardia (in the past per patient) Exam - Physical Exam Narrative exam: GEN: WDWN, NAD, Awake, Alert, Orientated HEENT: NCAT, EOMI, PERRL, OP Clear NECK: supple, no adenopathy, no thyromegaly, no JVD CVS/HEART: RRR, normal S1S2, pulses present bilaterally CHEST/LUNGS: diminished bs bilaterally, Symmetrical chest expansion, good air entry bilaterally GI/Abdomen: soft, nontender distended, good bowel sounds, no guarding or rebound /Bladder: no suprapubic tenderness, no CVA or paraspinal tenderness EXT/Skin: bilateral leg edema with chronic venous stasis, no obvious rash MSK: FROM x 4 Neuro: CN 2-12 grossly intact, no new focal deficits Psych: calm - Constitutional Vitals: Temp Pulse Resp BP Pulse Ox 98.4 F 77 20 165/90 94 08/08/18 04:48 08/08/18 09:26 08/08/18 09:26 08/08/18 08:20 08/08/18 04:48 Plan Activity: other (no strenous activity unless cleared by PCP) Diet: low salt Special Instructions: record daily BP diary Follow up with: PRIMARY CARE, [Primary Care Provider] - 3-5 Days JEREMIAH KOWALSKI MD [Staff Physician] - 7 Days ONEL ENAMORADO MD [Staff Physician] - 7 Days JEREMIAH CERDA MD [Staff Physician] - 7 Days VA RYAN MD [Staff Physician] - 7 Days Prescriptions: cloNIDine [Catapres] 0.2 mg PO BID #60 tablet oxyCODONE /ACETAMINOPHEN [Percocet 5/325 mg] 1 tab PO Q6H PRN #10 tablet PRN Reason: Pain , Severe (7-10) guaiFENesin/CODEINE [Robitussin AC] 5 ml PO Q12H PRN 5 Days oral.liqd PRN Reason: Cough
== END 2018-08-08 11:45 | disposition home or self-care (01) | DRG 291 ==
LOC: ED 02:11 → 4A 05:58 → CC1 09:00 → 3A 17:28
PROVIDERS: ADMIT Internal Medicine; ATTEND Internal Medicine
PROC: 0W9G3ZZ Drainage of Peritoneal Cavity, Percutaneous Approach (ICD-10-PCS; principal; 2018-08-06)
PROC: 5A1D70Z Performance of Urinary Filtration, Intermittent, Less than 6 Hours Per Day (ICD-10-PCS; 2018-08-07)
DX: I13.2 Hypertensive heart and chronic kidney disease with heart failure and with stage 5 chronic kidney disease, or end stage renal disease (principal); I50.43 Acute on chronic combined systolic (congestive) and diastolic (congestive) heart failure; J96.21 Acute and chronic respiratory failure with hypoxia; N18.6 End stage renal disease; I16.1 Hypertensive emergency; R18.8 Other ascites; N17.9 Acute kidney failure, unspecified; N25.81 Secondary hyperparathyroidism of renal origin; Q61.3 Polycystic kidney, unspecified; K74.60 Unspecified cirrhosis of liver; I42.0 Dilated cardiomyopathy; E03.9 Hypothyroidism, unspecified; Z99.2 Dependence on renal dialysis; K21.9 Gastro-esophageal reflux disease without esophagitis; E78.5 Hyperlipidemia, unspecified; K29.00 Acute gastritis without bleeding; E66.9 Obesity, unspecified; Z68.36 Body mass index [BMI] 36.0-36.9, adult; Z71.3 Dietary counseling and surveillance; Z91.19 Patient's noncompliance with other medical treatment and regimen; D63.1 Anemia in chronic kidney disease; Z88.5 Allergy status to narcotic agent; E87.5 Hyperkalemia
CPT/HCPCS: 36415; 49083; 70450; 71045; 80048; 80061; 80076; 82550; 82553; 83880; 84484; 85007; 85025; 85610; 85730; 93005; 93010; G0378; C1729; J0360; J1170; J1650; J1940; J2270; J2405; J7030; J7050

== ENCOUNTER 2018-09-02 22:51 | Inpatient (IN) | payer MEDICARE ==
--- NOTE | 2018-09-02 23:17 | Emergency Department Report ---
ED Abdominal Pain HPI - General Chief Complaint: Abdominal Pain Stated Complaint: R SIDE KIDNEY PAIN Time Seen by Provider: 09/02/18 23:14 Source: patient Mode of arrival: Stretcher Limitations: No Limitations - History of Present Illness Initial Comments: Patient is a 48-year-old male that presents emergency room with complaints of right-sided flank pain and abdominal distention 3 days. Patient states the symptoms are worsening. Patient states that he is having shortness of breath as well. Patient states that swelling from his toes up to the top of his abdomen. Patient states he had dialysis yesterday and it was a normal dialysis. Patient denies chest pain. Patient states the shortness of breath is worse with exertion. Patient states his abdominal pain is worse with exertion and better with rest. Patient states his abdominal pain is an 8 out of 10. MD Complaint: abdominal pain -: Sudden Location: diffuse Radiation: R flank Migration to: no migration Severity: severe Severity scale (0 -10): 8 Quality: cramping, stabbing, fullness Consistency: constant Improves With: rest Worsens With: movement Associated Symptoms: denies: nausea, vomiting, diarrhea, fever, chills, constipation, dysuria, hematemesis, hematochezia, melena, hematuria, anorexia, syncope - Related Data Previous Rx's Medication Instructions Recorded Last Taken Type cloNIDine [Catapres] 0.2 mg PO BID #60 tablet 08/08/18 Unknown Rx oxyCODONE /ACETAMINOPHEN [Percocet 1 tab PO Q6H PRN #10 tablet 08/08/18 Unknown Rx 5/325 mg] guaiFENesin/CODEINE [Robitussin AC] 5 ml PO Q12H PRN 5 Days oral.liqd 08/21/18 Unknown Rx hydrALAZINE [Apresoline TAB] 25 mg PO Q8HR #30 tablet 08/21/18 Unknown Rx Allergies Allergy/AdvReac Type Severity Reaction Status Date / Time tramadol [From Ultram] AdvReac Dizziness Verified 03/05/18 15:30 ED Review of Systems ROS: Stated complaint: R SIDE KIDNEY PAIN Other details as noted in HPI Constitutional: denies: chills, fever Eyes: denies: eye pain, eye discharge, vision change ENT: denies: ear pain, throat pain Respiratory: shortness of breath, SOB with exertion, SOB at rest. denies: cough, wheezing Cardiovascular: denies: chest pain, palpitations Endocrine: no symptoms reported Gastrointestinal: abdominal pain. denies: nausea, diarrhea Genitourinary: denies: urgency, dysuria Musculoskeletal: denies: back pain, joint swelling, arthralgia Skin: denies: rash, lesions Neurological: denies: headache, weakness, paresthesias Psychiatric: denies: anxiety, depression Hematological/Lymphatic: denies: easy bleeding, easy bruising ED Past Medical Hx - Past Medical History Previous Medical History?: Yes Hx Hypertension: Yes Hx Congestive Heart Failure: Yes (diastolic - CHRONIC , CARDIOMYOPATHY) Hx Diabetes: No Hx GERD: Yes Hx Renal Disease: Yes (ESRD, dialysis T, TH, Sat) Hx Sickle Cell Disease: No Hx Asthma: No Hx COPD: No Hx HIV: No Additional medical history: Abdominal Hernias, right groin hernia, - Surgical History Past Surgical History?: Yes Additional Surgical History: dialysis access left arm, groin hernia repair, - Family History Family history: hypertension - Social History Smoking Status: Never Smoker Substance Use Type: None - Medications Home Medications: Home Medications Medication Instructions Recorded Confirmed Last Taken Type cloNIDine [Catapres] 0.2 mg PO BID #60 tablet 08/08/18 08/20/18 Unknown Rx oxyCODONE /ACETAMINOPHEN [Percocet 1 tab PO Q6H PRN #10 tablet 08/08/18 08/20/18 Unknown Rx 5/325 mg] guaiFENesin/CODEINE [Robitussin AC] 5 ml PO Q12H PRN 5 Days oral.liqd 08/21/18 Unknown Rx hydrALAZINE [Apresoline TAB] 25 mg PO Q8HR #30 tablet 08/21/18 Unknown Rx ED Physical Exam - General Limitations: No Limitations General appearance: alert, in distress - Head Head exam: Present: atraumatic, normocephalic - Eye Eye exam: Present: normal appearance - ENT ENT exam: Present: mucous membranes moist - Neck Neck exam: Present: normal inspection - Respiratory Respiratory exam: Present: normal lung sounds bilaterally, respiratory distress - Cardiovascular Cardiovascular Exam: Present: regular rate, normal rhythm. Absent: systolic murmur, diastolic murmur, rubs, gallop - GI/Abdominal GI/Abdominal exam: Present: soft, distended, tenderness, rigid, normal bowel sounds - Rectal Rectal exam: Present: deferred - Extremities Exam Extremities exam: Present: pedal edema (both lower extremities with pitting edema) - Back Exam Back exam: Present: normal inspection - Neurological Exam Neurological exam: Present: alert, oriented X3 - Psychiatric Psychiatric exam: Present: normal affect, normal mood - Skin Skin exam: Present: warm, dry, intact, normal color. Absent: rash ED Course Vital Signs 09/02/18 09/02/18 09/03/18 23:04 23:45 02:20 Temperature 97.9 F 97 F L Pulse Rate 58 L 58 L Respiratory 30 H 30 H 16 Rate Blood Pressure 173/82 195/105 O2 Sat by Pulse 97 97 Oximetry 09/03/18 09/03/18 09/03/18 02:30 02:45 03:00 Temperature Pulse Rate 58 L 57 L 56 L Respiratory 25 H Rate Blood Pressure 195/105 187/104 187/93 O2 Sat by Pulse Oximetry 09/03/18 03:15 Temperature Pulse Rate 57 L Respiratory Rate Blood Pressure 190/97 O2 Sat by Pulse Oximetry - Reevaluation(s) Reevaluation #1: Discussed all results with patient. Patient agrees to plan of care and admission and dialysis and medications. 09/03/18 01:32 - Consultations Consultation #1: Discussed case with nephrology. Dr. Casey wants patient admitted to the hospitalist service and he will order emergent dialysis for the volume overload and he wants calcium, insulin, D50 and Kayexalate and 4 mg iv Bumex 09/03/18 01:36 Consultation #2: cardio consulted for abnormal troponin and BMP. Dr. garibay recommends admission to the hospitalist service. 09/03/18 01:46 Consultation #3: Hospitalist consult for admission. Hospitalist to admit patient. 09/03/18 01:47 ED Medical Decision Making - Lab Data Result diagrams: 09/02/18 23:23 09/02/18 23:23 - EKG Data -: EKG Interpreted by Me EKG shows normal: sinus rhythm, axis, intervals, QRS complexes, ST-T waves Rate: bradycardia - Radiology Data Radiology results: report reviewed PROCEDURE: XR CHEST 1V AP TECHNIQUE: Single radiograph of the chest obtained. HISTORY: sob COMPARISONS: None FINDINGS: Heart is enlarged. No focal consolidation or effusion visualized. No pneumothorax visualized. IMPRESSION: Cardiomegaly.. PROCEDURE: CT ABDOMEN PELVIS WO CON TECHNIQUE: CT of the abdomen/pelvis obtained without contrast. HISTORY: abd pain COMPARISONS: 05/14/2018. FINDINGS: Heart is enlarged. Small pericardial effusion again noted. Liver is enlarged. Gallbladder, spleen, adrenal glands, pancreas unremarkable. Again demonstrated, multiple innumerable cysts seen throughout the kidneys which is enlarged consistent with polycystic kidney disease. No evidence hydronephrosis. Patient status post anterior abdominal hernia repair. No evidence of bowel dilatation or obstruction. No CT evidence for appendicitis or diverticulitis. Moderate amount of abdominal/pelvic ascites noted. Anasarca. Bladder is underdistended. IMPRESSION: Findings consistent with polycystic kidney disease. Moderate amount of abdominal/pelvic ascites. Anasarca. Hepatomegaly. Small pericardial effusion. - Medical Decision Making Patient is a 48-year-old male that presents emergency room with complaints of abdominal pain and shortness of breath. Patient also complained of abdominal distention. Patient found to be volume overloaded and in CHF exacerbation. Patient also hyperkalemic. Nephrology consultation for emergent hemodialysis secondary to hyperkalemia and volume overload. Patient had a CT done of his abdomen which shows ascites and anasarca. Patient on exam noted to have bilateral lower extremity edema and anasarca. Patient's labs reviewed. Cardiology also counseled for elevated troponin and BNP. EKG reviewed. Patient admitted to the hospitalist service for further evaluation. Recommendations from nephrology received. Senior [employer] Developer recommended insulin, D50, calcium, Kayexalate, Bumex. - Differential Diagnosis volume overload. CHF exacerbation. Electrolyte imbalance. Sob Critical Care Time: Yes Critical care attestation.: If time is entered above; I have spent that time in minutes in the direct care of this critically ill patient, excluding procedure time. Critical Care Time: 55 minutes ED Disposition Clinical Impression: ESRD (end stage renal disease), Elevated troponin, Anasarca, ESRD on hemodialysis, Hyperkalemia CHF (congestive heart failure) Qualifiers: Heart failure type: unspecified Heart failure chronicity: acute on chronic Qualified Code(s): I50.9 - Heart failure, unspecified Anemia Qualifiers: Anemia type: unspecified type Qualified Code(s): D64.9 - Anemia, unspecified CHF exacerbation Qualifiers: Heart failure type: unspecified Qualified Code(s): I50.9 - Heart failure, unspecified Ascites Qualifiers: Ascites type: other type Qualified Code(s): R18.8 - Other ascites HTN (hypertension) Qualifiers: Hypertension type: essential hypertension Qualified Code(s): I10 - Essential (primary) hypertension Disposition: OP ADMIT IP TO THIS HOSP Is pt being admited?: Yes Does the pt Need Aspirin: No Condition: Critical Instructions: Hypertension (ED) Referrals: PRIMARY CARE, [Primary Care Provider] - 3-5 Days Time of Disposition: 01:18
[2018-09-02 23:36] LABS: Hematocrit 28.1 % (35.5-45.6); Hemoglobin 9.1 gm/dl (11.8-15.2); Mean Corpuscular HGB Conc 32 % (32-34); Mean Corpuscular Volume 87 fl (84-94); Platelet Count 204 K/mm3 (140-440); Red Blood Count 3.23 M/mm3 (3.65-5.03)
[2018-09-03 00:04] LABS: Creatine Kinase MB 9.5 ng/mL (0.0-4.0)
[2018-09-03 00:06] LABS: Albumin 3.6 g/dL (3.9-5); Calcium 9.6 mg/dL (8.4-10.2)
--- NOTE | 2018-09-03 00:18 | XRay Report ---
PROCEDURE: XR CHEST 1V AP TECHNIQUE: Single radiograph of the chest obtained. HISTORY: sob COMPARISONS: None FINDINGS: Heart is enlarged. No focal consolidation or effusion visualized. No pneumothorax visualized. IMPRESSION: Cardiomegaly.. This document is electronically signed by Travis Gomez MD., September 03 2018 12:16:33 AM ET
--- NOTE | 2018-09-03 00:41 | Cat Scan Report ---
PROCEDURE: CT ABDOMEN PELVIS WO CON TECHNIQUE: CT of the abdomen/pelvis obtained without contrast. HISTORY: abd pain COMPARISONS: 05/14/2018. FINDINGS: Heart is enlarged. Small pericardial effusion again noted. Liver is enlarged. Gallbladder, spleen, adrenal glands, pancreas unremarkable. Again demonstrated, multiple innumerable cysts seen throughout the kidneys which is enlarged consiste nt with polycystic kidney disease. No evidence hydronephrosis. Patient status post anterior abdominal hernia repair. No evidence of bowel dilatation or obstruction. No CT evidence for appendicitis or diverticulitis. Moderate amount of abdominal/pelvic ascites noted. Anasarca. Bladder is underdistended. IMPRESSION: Findings consistent with polycystic kidney disease. Moderate amount of abdominal/pelvic ascites. Anasarca. Hepatomegaly. Small pericardial effusion. This document is electronically signed by Travis Gomez MD., September 03 2018 12:39:07 AM ET
[2018-09-03 01:11] LABS: Chol/HDL Ratio 2.5 %
[2018-09-03] MEDS ORDERED: LASIX IV ONE (01:16)
[2018-09-03] MEDS ORDERED: NACL 0.9% 100 ML IV PRN (01:44)
[2018-09-03] MEDS ORDERED: D50W (25GM) Syringe IV ONE (01:48)
[2018-09-03] MEDS ORDERED: CALCIUM CHLORIDE IVP ONE (01:48)
[2018-09-03] MEDS ORDERED: D50W (25GM) Syringe IV PRN (01:48)
[2018-09-03] MEDS ORDERED: HumuLIN R IV ONE ×2 (01:48)
[2018-09-03] MEDS ORDERED: KIONEX PO ONE ×2 (01:48)
[2018-09-03] MEDS ORDERED: DILAUDID IV ONE (01:49)
[2018-09-03] MEDS ORDERED: BUMEX IV ONE ×2 (01:49)
[2018-09-03 01:59] LABS: Anisocytosis 1+; Total Cells Counted 100
[2018-09-03 02:00] LABS: Platelet Estimate Consistent w Auto
[2018-09-03] MEDS ORDERED: ZOFRAN IV PRN (02:28)
[2018-09-03] MEDS ORDERED: TYLENOL PO PRN (02:28)
[2018-09-03] MEDS ORDERED: SODIUM CHLORIDE FLUSH SYRINGE 10 ML IV PRN (02:28)
--- NOTE | 2018-09-03 02:39 | History and Physical Report ---
<DAI MATHIAS - Last Filed: 09/03/18 04:03> History of Present Illness Date of examination: 09/03/18 Date of admission: 09/03/2018 Chief complaint: Abdomenal pain and distention 3 days History of present illness: Pt is a 48-year-old man with PMHx abnominal ascites, hypertension, ESRD (on HD), polycystic kidney disease, cirrhosis of the liver, fluid overload who presents to the ER with complaints of diffuse abdominal pain, shortness of breath, lower extremity swelling x 3 day. Patient states that he had HD on monday and was h oping to get some improvement in his SOB but the symptoms kepts getting worse. Pt was admitted on 08/06/2018 for the same symptoms, he states that he has an appointment this coming for paracenthesis but his stomach is getting more distended and the pain level is increasing, so he decided to come to the ER tonight for evaluation. Pt c/o severe abdominal pain, severe SOB, denies nausea, denies vomiting, denies change in appetite, denied diarrhea of constipation. In the ER, patient had a CT scan of the abdomen which showed findings consistent with polycystic kidney disease, abdominal and pelvic ascites, anasarca, hepatomegaly. Patient's nephrology was consulted for hemodialysis management, pt was admitted for emergent HD tonight and interventional radiology will be consulted for possible paracentesis in a.m. Past History Past Medical History: dialysis, hypertension, hyperlipidemia, liver disease, renal failure Past Surgical History: No surgical history, Other (hemodialysis fistula) Social history: no significant social history, lives with family Family history: no significant family history Medications and Allergies Allergies Allergy/AdvReac Type Severity Reaction Status Date / Time tramadol [From Ultram] AdvReac Dizziness Verified 03/05/18 15:30 Home Medications Medication Instructions Recorded Confirmed Last Taken Type cloNIDine [Catapres] 0.2 mg PO BID #60 tablet 08/08/18 08/20/18 Unknown Rx oxyCODONE /ACETAMINOPHEN [Percocet 1 tab PO Q6H PRN #10 tablet 08/08/18 08/20/18 Unknown Rx 5/325 mg] guaiFENesin/CODEINE [Robitussin AC] 5 ml PO Q12H PRN 5 Days oral.liqd 08/21/18 Unknown Rx hydrALAZINE [Apresoline TAB] 25 mg PO Q8HR #30 tablet 08/21/18 Unknown Rx Active Meds: Active Medications Acetaminophen (Tylenol) 650 mg PO Q4H PRN PRN Reason: Pain MILD(1-3)/Fever >100.5/SWAIN Dextrose (D50w (25gm) Syringe) 50 ml IV PRN PRN PRN Reason: Hypoglycemia Enoxaparin Sodium (Lovenox) 30 mg SUB-Q QDAY FOSTER Sodium Chloride (Nacl 0.9%) 100 mls @ 999 mls/hr IV JULIA PRN PRN Reason: Hypotension Morphine Sulfate (Morphine) 2 mg IV Q4H PRN PRN Reason: Pain, Moderate (4-6) Ondansetron HCl (Zofran) 4 mg IV Q8H PRN PRN Reason: Nausea And Vomiting Sodium Chloride (Sodium Chloride Flush Syringe 10 Ml) 10 ml IV BID FOSTER Sodium Chloride (Sodium Chloride Flush Syringe 10 Ml) 10 ml IV PRN PRN PRN Reason: LINE FLUSH Review of Systems Respiratory: shortness of breath Gastrointestinal: abdominal pain Exam - Constitutional Vitals: Temp Pulse Resp BP Pulse Ox 97.9 F 58 L 25 H 173/82 97 09/02/18 23:04 09/02/18 23:04 09/03/18 02:30 09/02/18 23:04 09/02/18 23:45 General appearance: Present: no acute distress - EENT Eyes: Present: EOM intact ENT: hearing intact - Neck Neck: Present: normal ROM - Respiratory Respiratory effort: normal - Extremities Extremities: no ischemia, abnormal (abnormal lesion) Extremity abnormal: edema Peripheral Pulses: within normal limits - Abdominal General gastrointestinal: Present: deferred Male genitourinary: Present: deferred - Rectal Rectal Exam: deferred - Musculoskeletal Musculoskeletal: strength equal bilaterally - Psychiatric Psychiatric: cooperative - Neurologic Neurologic: moves all extremities Results - Labs CBC & Chem 7: 09/02/18 23:23 09/02/18 23:23 Labs: Laboratory Last Values WBC 6.0 K/mm3 (4.5-11.0) 09/02/18 23:23 RBC 3.23 M/mm3 (3.65-5.03) L 09/02/18 23:23 Hgb 9.1 gm/dl (11.8-15.2) L 09/02/18 23:23 Hct 28.1 % (35.5-45.6) L 09/02/18 23:23 MCV 87 fl (84-94) 09/02/18 23:23 MCH 28 pg (28-32) 09/02/18 23:23 MCHC 32 % (32-34) 09/02/18 23:23 RDW 21.0 % (13.2-15.2) H 09/02/18 23:23 Plt Count 204 K/mm3 (140-440) 09/02/18 23:23 [place] % (Auto) Rotary Planer Set Up Operator 09/02/18 23:23 Add Manual Diff Complete 09/02/18 23:23 Total Counted 100 09/02/18 23:23 Seg Neuts % (Manual) 73.0 % (40.0-70.0) H 09/02/18 23:23 Band Neutrophils % 0 % 09/02/18 23:23 Lymphocytes % (Manual) 14.0 % (13.4-35.0) 09/02/18 23:23 Reactive Lymphs % (Man) 0 % 09/02/18 23:23 Monocytes % (Manual) 6.0 % (0.0-7.3) 09/02/18 23:23 Eosinophils % (Manual) 6.0 % (0.0-4.3) H 09/02/18 23:23 Basophils % (Manual) 1.0 % (0.0-1.8) 09/02/18 23:23 Metamyelocytes % 0 % 09/02/18 23:23 Myelocytes % 0 % 09/02/18 23:23 Promyelocytes % 0 % 09/02/18 23:23 Blast Cells % 0 % 09/02/18 23:23 Nucleated RBC % Not Reportable 09/02/18 23:23 Seg Neutrophils # Man 4.4 K/mm3 (1.8-7.7) 09/02/18 23:23 Band Neutrophils # 0.0 K/mm3 09/02/18 23:23 Lymphocytes # (Manual) 0.8 K/mm3 (1.2-5.4) L 09/02/18 23:23 Abs React Lymphs (Man) 0.0 K/mm3 09/02/18 23:23 Monocytes # (Manual) 0.4 K/mm3 (0.0-0.8) 09/02/18 23:23 Eosinophils # (Manual) 0.4 K/mm3 (0.0-0.4) 09/02/18 23:23 Basophils # (Manual) 0.1 K/mm3 (0.0-0.1) 09/02/18 23:23 Metamyelocytes # 0.0 K/mm3 09/02/18 23:23 Myelocytes # 0.0 K/mm3 09/02/18 23:23 Promyelocytes # 0.0 K/mm3 09/02/18 23:23 Blast Cells # 0.0 K/mm3 09/02/18 23:23 WBC Morphology Not Reportable 09/02/18 23:23 Hypersegmented Neuts Not Reportable 09/02/18 23:23 Hyposegmented Neuts Not Reportable 09/02/18 23:23 Hypogranular Neuts Not Reportable 09/02/18 23:23 Smudge Cells Not Reportable 09/02/18 23:23 Toxic Granulation Not Reportable 09/02/18 23:23 Toxic Vacuolation Not Reportable 09/02/18 23:23 Dohle Bodies Not Reportable 09/02/18 23:23 Pelger-Huet Anomaly Not Reportable 09/02/18 23:23 Vin Rods Not Reportable 09/02/18 23:23 Platelet Estimate Consistent w auto 09/02/18 23:23 Clumped Platelets Not Reportable 09/02/18 23:23 Plt Clumps, EDTA Not Reportable 09/02/18 23:23 Large Platelets Not Reportable 09/02/18 23:23 Giant Platelets Not Reportable 09/02/18 23:23 Platelet Satelliting Not Reportable 09/02/18 23:23 Plt Morphology Comment Not Reportable 09/02/18 23:23 RBC Morphology Not Reportable 09/02/18 23:23 Dimorphic RBCs Not Reportable 09/02/18 23:23 Polychromasia Not Reportable 09/02/18 23:23 Hypochromasia Not Reportable 09/02/18 23:23 Poikilocytosis Not Reportable 09/02/18 23:23 Anisocytosis 1+ 09/02/18 23:23 Microcytosis Not Reportable 09/02/18 23:23 Macrocytosis Not Reportable 09/02/18 23:23 Spherocytes Not Reportable 09/02/18 23:23 Pappenheimer Bodies Not Reportable 09/02/18 23:23 Sickle Cells Not Reportable 09/02/18 23:23 Target Cells Not Reportable 09/02/18 23:23 Tear Drop Cells Not Reportable 09/02/18 23:23 Ovalocytes Not Reportable 09/02/18 23:23 Helmet Cells Not Reportable 09/02/18 23:23 [place] Bodies Not Reportable 09/02/18 23:23 [place] Rings Not Reportable 09/02/18 23:23 [place] Cells Not Reportable 09/02/18 23:23 Bite Cells Not Reportable 09/02/18 23:23 Crenated Cell Not Reportable 09/02/18 23:23 Elliptocytes Not Reportable 09/02/18 23:23 Acanthocytes (Spur) Not Reportable 09/02/18 23:23 Rouleaux Not Reportable 09/02/18 23:23 Hemoglobin C Crystals Not Reportable 09/02/18 23:23 Schistocytes Not Reportable 09/02/18 23:23 Malaria parasites Not Reportable 09/02/18 23:23 Charbel Bodies Not Reportable 09/02/18 23:23 Hem Pathologist Commnt No 09/02/18 23:23 Sodium 140 mmol/L (137-145) 09/02/18 23:23 Potassium 5.9 mmol/L (3.6-5.0) H 09/02/18 23:23 Chloride 99.5 mmol/L (98-107) 09/02/18 23:23 Carbon Dioxide 25 mmol/L (22-30) 09/02/18 23:23 Anion Gap 21 mmol/L 09/02/18 23:23 BUN 63 mg/dL (9-20) H 09/02/18 23:23 Creatinine 11.6 mg/dL (0.8-1.5) H 09/02/18 23:23 Estimated GFR 6 ml/min 09/02/18 23:23 BUN/Creatinine Ratio 5 % 09/02/18 23:23 Glucose 110 mg/dL (75-100) H 09/02/18 23:23 Lactic Acid 0.80 mmol/L (0.7-2.0) 09/02/18 23:25 Calcium 9.6 mg/dL (8.4-10.2) 09/02/18 23:23 Total Bilirubin 0.40 mg/dL (0.1-1.2) 09/02/18 23:23 AST 13 units/L (5-40) 09/02/18 23:23 ALT 9 units/L (7-56) 09/02/18 23:23 Alkaline Phosphatase 87 units/L (35-129) 09/02/18 23:23 Total Creatine Kinase 987 units/L (55-170) H 09/02/18 23:23 CK-MB (CK-2) 9.5 ng/mL (0.0-4.0) H 09/02/18 23:23 CK-MB (CK-2) Rel Index 0.9 (0-4) 09/02/18 23:23 Troponin T 0.566 ng/mL (0.00-0.029) H* 09/02/18 23:23 NT-Pro-B Natriuret Pep 58702 pg/mL (0-450) H 09/02/18 23:23 Total Protein 6.5 g/dL (6.3-8.2) 09/02/18 23:23 Albumin 3.6 g/dL (3.9-5) L 09/02/18 23:23 Albumin/Globulin Ratio 1.2 % 09/02/18 23:23 Triglycerides 43 mg/dL (2-149) 09/02/18 23:23 Cholesterol 105 mg/dL (50-199) 09/02/18 23:23 LDL Cholesterol Direct 63 mg/dL (50-130) 09/02/18 23:23 HDL Cholesterol 42 mg/dL (40-59) 09/02/18 23:23 Cholesterol/HDL Ratio 2.50 % 09/02/18 23:23 Assessment and Plan Assessment and plan: 1. Abdominal pain (due to ascites) 2. Hyperkalemia 3. Anemia due to CKD Hypertension 4. End-stage renal disease (on hemodialysis) 5. History of polycystic kidney disease 6. Hypertension 7. Cirrhosis of the liver 8. Fluid overload 9. Bilateral lower extremities edema Plan: Admit to med telemetry for fluid overload/ascites Consult IR for paracentesis in the a.m. Consult nephrology for HD management Urgent hemodialysis tonight Fluid restriction Monitor I and O Daily weight Resume home meds DVT prophylaxis Advance Directives: Yes VTE prophylaxis?: Mechanical Plan of care discussed with patient/family: Yes <YESENIA MEZA - Last Filed: 09/03/18 04:47> Medications and Allergies Active Meds: Active Medications Acetaminophen (Tylenol) 650 mg PO Q4H PRN PRN Reason: Pain MILD(1-3)/Fever >100.5/SWAIN Dextrose (D50w (25gm) Syringe) 50 ml IV PRN PRN PRN Reason: Hypoglycemia Enoxaparin Sodium (Lovenox) 30 mg SUB-Q QDAY FOSTER Sodium Chloride (Nacl 0.9%) 100 mls @ 999 mls/hr IV JULIA PRN PRN Reason: Hypotension Morphine Sulfate (Morphine) 2 mg IV Q4H PRN PRN Reason: Pain, Moderate (4-6) Ondansetron HCl (Zofran) 4 mg IV Q8H PRN PRN Reason: Nausea And Vomiting Sodium Chloride (Sodium Chloride Flush Syringe 10 Ml) 10 ml IV BID FOSTER Sodium Chloride (Sodium Chloride Flush Syringe 10 Ml) 10 ml IV PRN PRN PRN Reason: LINE FLUSH Exam - Constitutional Vitals: Temp Pulse Resp BP Pulse Ox 97 F L 54 L 25 H 178/91 97 09/03/18 02:20 09/03/18 04:30 09/03/18 02:30 09/03/18 04:30 09/02/18 23:45 Results - Labs CBC & Chem 7: 09/02/18 23:23 09/02/18 23:23 Labs: Laboratory Last Values WBC 6.0 K/mm3 (4.5-11.0) 09/02/18 23:23 RBC 3.23 M/mm3 (3.65-5.03) L 09/02/18 23:23 Hgb 9.1 gm/dl (11.8-15.2) L 09/02/18 23:23 Hct 28.1 % (35.5-45.6) L 09/02/18 23:23 MCV 87 fl (84-94) 09/02/18 23:23 MCH 28 pg (28-32) 09/02/18 23:23 MCHC 32 % (32-34) 09/02/18 23:23 RDW 21.0 % (13.2-15.2) H 09/02/18 23:23 Plt Count 204 K/mm3 (140-440) 09/02/18 23:23 [place] % (Auto) Rotary Planer Set Up Operator 09/02/18 23:23 Add Manual Diff Complete 09/02/18 23:23 Total Counted 100 09/02/18 23:23 Seg Neuts % (Manual) 73.0 % (40.0-70.0) H 09/02/18 23:23 Band Neutrophils % 0 % 09/02/18 23:23 Lymphocytes % (Manual) 14.0 % (13.4-35.0) 09/02/18 23:23 Reactive Lymphs % (Man) 0 % 09/02/18 23:23 Monocytes % (Manual) 6.0 % (0.0-7.3) 09/02/18 23:23 Eosinophils % (Manual) 6.0 % (0.0-4.3) H 09/02/18 23:23 Basophils % (Manual) 1.0 % (0.0-1.8) 09/02/18 23:23 Metamyelocytes % 0 % 09/02/18 23:23 Myelocytes % 0 % 09/02/18 23:23 Promyelocytes % 0 % 09/02/18 23:23 Blast Cells % 0 % 09/02/18 23:23 Nucleated RBC % Not Reportable 09/02/18 23:23 Seg Neutrophils # Man 4.4 K/mm3 (1.8-7.7) 09/02/18 23:23 Band Neutrophils # 0.0 K/mm3 09/02/18 23:23 Lymphocytes # (Manual) 0.8 K/mm3 (1.2-5.4) L 09/02/18 23:23 Abs React Lymphs (Man) 0.0 K/mm3 09/02/18 23:23 Monocytes # (Manual) 0.4 K/mm3 (0.0-0.8) 09/02/18 23:23 Eosinophils # (Manual) 0.4 K/mm3 (0.0-0.4) 09/02/18 23:23 Basophils # (Manual) 0.1 K/mm3 (0.0-0.1) 09/02/18 23:23 Metamyelocytes # 0.0 K/mm3 09/02/18 23:23 Myelocytes # 0.0 K/mm3 09/02/18 23:23 Promyelocytes # 0.0 K/mm3 09/02/18 23:23 Blast Cells # 0.0 K/mm3 09/02/18 23:23 WBC Morphology Not Reportable 09/02/18 23:23 Hypersegmented Neuts Not Reportable 09/02/18 23:23 Hyposegmented Neuts Not Reportable 09/02/18 23:23 Hypogranular Neuts Not Reportable 09/02/18 23:23 Smudge Cells Not Reportable 09/02/18 23:23 Toxic Granulation Not Reportable 09/02/18 23:23 Toxic Vacuolation Not Reportable 09/02/18 23:23 Dohle Bodies Not Reportable 09/02/18 23:23 Pelger-Huet Anomaly Not Reportable 09/02/18 23:23 Vin Rods Not Reportable 09/02/18 23:23 Platelet Estimate Consistent w auto 09/02/18 23:23 Clumped Platelets Not Reportable 09/02/18 23:23 Plt Clumps, EDTA Not Reportable 09/02/18 23:23 Large Platelets Not Reportable 09/02/18 23:23 Giant Platelets Not Reportable 09/02/18 23:23 Platelet Satelliting Not Reportable 09/02/18 23:23 Plt Morphology Comment Not Reportable 09/02/18 23:23 RBC Morphology Not Reportable 09/02/18 23:23 Dimorphic RBCs Not Reportable 09/02/18 23:23 Polychromasia Not Reportable 09/02/18 23:23 Hypochromasia Not Reportable 09/02/18 23:23 Poikilocytosis Not Reportable 09/02/18 23:23 Anisocytosis 1+ 09/02/18 23:23 Microcytosis Not Reportable 09/02/18 23:23 Macrocytosis Not Reportable 09/02/18 23:23 Spherocytes Not Reportable 09/02/18 23:23 Pappenheimer Bodies Not Reportable 09/02/18 23:23 Sickle Cells Not Reportable 09/02/18 23:23 Target Cells Not Reportable 09/02/18 23:23 Tear Drop Cells Not Reportable 09/02/18 23:23 Ovalocytes Not Reportable 09/02/18 23:23 Helmet Cells Not Reportable 09/02/18 23:23 [place] Bodies Not Reportable 09/02/18 23:23 [place] Not Reportable 09/02/18 23:23 [place] Cells Not Reportable 09/02/18 23:23 Bite Cells Not Reportable 09/02/18 23:23 Crenated Cell Not Reportable 09/02/18 23:23 Elliptocytes Not Reportable 09/02/18 23:23 Acanthocytes (Spur) Not Reportable 09/02/18 23:23 Rouleaux Not Reportable 09/02/18 23:23 Hemoglobin C Crystals Not Reportable 09/02/18 23:23 Schistocytes Not Reportable 09/02/18 23:23 Malaria parasites Not Reportable 09/02/18 23:23 Charbel Bodies Not Reportable 09/02/18 23:23 Hem Pathologist Commnt No 09/02/18 23:23 Sodium 140 mmol/L (137-145) 09/02/18 23:23 Potassium 5.9 mmol/L (3.6-5.0) H 09/02/18 23:23 Chloride 99.5 mmol/L (98-107) 09/02/18 23:23 Carbon Dioxide 25 mmol/L (22-30) 09/02/18 23:23 Anion Gap 21 mmol/L 09/02/18 23:23 BUN 63 mg/dL (9-20) H 09/02/18 23:23 Creatinine 11.6 mg/dL (0.8-1.5) H 09/02/18 23:23 Estimated GFR 6 ml/min 09/02/18 23:23 BUN/Creatinine Ratio 5 % 09/02/18 23:23 Glucose 110 mg/dL (75-100) H 09/02/18 23:23 Lactic Acid 0.80 mmol/L (0.7-2.0) 09/02/18 23:25 Calcium 9.6 mg/dL (8.4-10.2) 09/02/18 23:23 Total Bilirubin 0.40 mg/dL (0.1-1.2) 09/02/18 23:23 AST 13 units/L (5-40) 09/02/18 23:23 ALT 9 units/L (7-56) 09/02/18 23:23 Alkaline Phosphatase 87 units/L (35-129) 09/02/18 23:23 Total Creatine Kinase 987 units/L (55-170) H 09/02/18 23:23 CK-MB (CK-2) 9.5 ng/mL (0.0-4.0) H 09/02/18 23:23 CK-MB (CK-2) Rel Index 0.9 (0-4) 09/02/18 23:23 Troponin T 0.566 ng/mL (0.00-0.029) H* 09/02/18 23:23 NT-Pro-B Natriuret Pep 59610 pg/mL (0-450) H 09/02/18 23:23 Total Protein 6.5 g/dL (6.3-8.2) 09/02/18 23:23 Albumin 3.6 g/dL (3.9-5) L 09/02/18 23:23 Albumin/Globulin Ratio 1.2 % 09/02/18 23:23 Triglycerides 43 mg/dL (2-149) 09/02/18 23:23 Cholesterol 105 mg/dL (50-199) 09/02/18 23:23 LDL Cholesterol Direct 63 mg/dL (50-130) 09/02/18 23:23 HDL Cholesterol 42 mg/dL (40-59) 09/02/18 23:23 Cholesterol/HDL Ratio 2.50 % 09/02/18 23:23 Assessment and Plan Assessment and plan: 48-year-old man with a history of hypertension, end-stage renal disease on dialysis, CHF, recurrent ascites, polycystic kidney disease comes emergency room complaining of abdominal distention, shortness of breath, right flank pain. Patient was just discharged from the hospital on the of last month, he was scheduled to have a paracentesis done on Monday. Status post hemodialysis yesterday, stated his fluid accumulation is preventing him from breathing. A stat renal consult was ordered for dialysis, agree with plan as discussed above, in addition check cardiac enzymes, no complaint of chest pain. Cardio was consulted see the patient in the ER. Patient seen and examined with nurse practitioner
[2018-09-03] MEDS ORDERED: PERCOCET 5/325 PO PRN ×2 (04:40→21:50)
[2018-09-03] MEDS ORDERED: MORPHINE ONE (05:10)
[2018-09-03] MEDS: APRESOLINE PO SCH ×3 (06:49→22:20)
[2018-09-03] MEDS ORDERED: APRESOLINE ONE (06:50)
[2018-09-03 08:25] LABS: Creatine Kinase MB 8.3 ng/mL (0.0-4.0)
--- NOTE | 2018-09-03 08:48 | Progress Note ---
Assessment and Plan Assessment and plan: --Worsening abdominal distention/ascites; Scheduled for ultrasound-guided paracentesis for today Continue supportive care --End-stage renal disease on hemodialysis; HD per schedule Development Intern following --Anemia of chronic disease; closely monitor H&H and transfuse as needed Procrit during dialysis --Hypertension; moderate control, continue current antihypertensives and when necessary medications. --Cirrhosis liver; patient advised to follow-up with the GI upon discharge per schedule Continue supportive care --DVT prophylaxis; Lovenox --Full CODE STATUS We'll monitor the patient closely and adjust the management as needed Plan of care is reviewed with the patient and his nurse History Interval history: Patient seen and examined this morning medical records reviewed Admitted with worsening shortness of breath and worsening ascites Scheduled for ultrasound-guided paracentesis Patient complains of mild shortness of breath Denies chest pain alert awake oriented 3 Vital signs reviewed Hospitalist Physical - Constitutional Vitals: Temp Pulse Resp BP Pulse Ox 97.5 F L 62 17 195/97 97 09/03/18 06:37 09/03/18 06:50 09/03/18 07:52 09/03/18 06:50 09/03/18 07:52 General appearance: Present: no acute distress, well-nourished - EENT Eyes: Present: PERRL, EOM intact - Neck Neck: Present: supple, normal ROM - Respiratory Respiratory effort: normal Respiratory: bilateral: diminished, rales, negative: rhonchi, wheezing - Cardiovascular Rhythm: regular Heart Sounds: Present: S1 & S2 - Extremities Extremities: no ischemia Extremity abnormal: edema - Abdominal General gastrointestinal: soft, distended, other (ascites) - Integumentary Integumentary: Present: clear, warm - Psychiatric Psychiatric: appropriate mood/affect, cooperative - Neurologic Neurologic: moves all extremities Results - Labs CBC & Chem 7: 09/02/18 23:23 09/02/18 23:23 Labs: Laboratory Last Values WBC 6.0 K/mm3 (4.5-11.0) 09/02/18 23:23 RBC 3.23 M/mm3 (3.65-5.03) L 09/02/18 23:23 Hgb 9.1 gm/dl (11.8-15.2) L 09/02/18 23:23 Hct 28.1 % (35.5-45.6) L 09/02/18 23:23 MCV 87 fl (84-94) 09/02/18 23:23 MCH 28 pg (28-32) 09/02/18 23:23 MCHC 32 % (32-34) 09/02/18 23:23 RDW 21.0 % (13.2-15.2) H 09/02/18 23:23 Plt Count 204 K/mm3 (140-440) 09/02/18 23:23 [place] % (Auto) Resin Mixer 09/02/18 23:23 Add Manual Diff Complete 09/02/18 23:23 Total Counted 100 09/02/18 23:23 Seg Neuts % (Manual) 73.0 % (40.0-70.0) H 09/02/18 23:23 Band Neutrophils % 0 % 09/02/18 23:23 Lymphocytes % (Manual) 14.0 % (13.4-35.0) 09/02/18 23:23 Reactive Lymphs % (Man) 0 % 09/02/18 23:23 Monocytes % (Manual) 6.0 % (0.0-7.3) 09/02/18 23:23 Eosinophils % (Manual) 6.0 % (0.0-4.3) H 09/02/18 23:23 Basophils % (Manual) 1.0 % (0.0-1.8) 09/02/18 23:23 Metamyelocytes % 0 % 09/02/18 23:23 Myelocytes % 0 % 09/02/18 23:23 Promyelocytes % 0 % 09/02/18 23:23 Blast Cells % 0 % 09/02/18 23:23 Nucleated RBC % Not Reportable 09/02/18 23:23 Seg Neutrophils # Man 4.4 K/mm3 (1.8-7.7) 09/02/18 23:23 Band Neutrophils # 0.0 K/mm3 09/02/18 23:23 Lymphocytes # (Manual) 0.8 K/mm3 (1.2-5.4) L 09/02/18 23:23 Abs React Lymphs (Man) 0.0 K/mm3 09/02/18 23:23 Monocytes # (Manual) 0.4 K/mm3 (0.0-0.8) 09/02/18 23:23 Eosinophils # (Manual) 0.4 K/mm3 (0.0-0.4) 09/02/18 23:23 Basophils # (Manual) 0.1 K/mm3 (0.0-0.1) 09/02/18 23:23 Metamyelocytes # 0.0 K/mm3 09/02/18 23:23 Myelocytes # 0.0 K/mm3 09/02/18 23:23 Promyelocytes # 0.0 K/mm3 09/02/18 23:23 Blast Cells # 0.0 K/mm3 09/02/18 23:23 WBC Morphology Not Reportable 09/02/18 23:23 Hypersegmented Neuts Not Reportable 09/02/18 23:23 Hyposegmented Neuts Not Reportable 09/02/18 23:23 Hypogranular Neuts Not Reportable 09/02/18 23:23 Smudge Cells Not Reportable 09/02/18 23:23 Toxic Granulation Not Reportable 09/02/18 23:23 Toxic Vacuolation Not Reportable 09/02/18 23:23 Dohle Bodies Not Reportable 09/02/18 23:23 Pelger-Huet Anomaly Not Reportable 09/02/18 23:23 Vin Rods Not Reportable 09/02/18 23:23 Platelet Estimate Consistent w auto 09/02/18 23:23 Clumped Platelets Not Reportable 09/02/18 23:23 Plt Clumps, EDTA Not Reportable 09/02/18 23:23 Large Platelets Not Reportable 09/02/18 23:23 Giant Platelets Not Reportable 09/02/18 23:23 Platelet Satelliting Not Reportable 09/02/18 23:23 Plt Morphology Comment Not Reportable 09/02/18 23:23 RBC Morphology Not Reportable 09/02/18 23:23 Dimorphic RBCs Not Reportable 09/02/18 23:23 Polychromasia Not Reportable 09/02/18 23:23 Hypochromasia Not Reportable 09/02/18 23:23 Poikilocytosis Not Reportable 09/02/18 23:23 Anisocytosis 1+ 09/02/18 23:23 Microcytosis Not Reportable 09/02/18 23:23 Macrocytosis Not Reportable 09/02/18 23:23 Spherocytes Not Reportable 09/02/18 23:23 Pappenheimer Bodies Not Reportable 09/02/18 23:23 Sickle Cells Not Reportable 09/02/18 23:23 Target Cells Not Reportable 09/02/18 23:23 Tear Drop Cells Not Reportable 09/02/18 23:23 Ovalocytes Not Reportable 09/02/18 23:23 Helmet Cells Not Reportable 09/02/18 23:23 [place] Bodies Not Reportable 09/02/18 23:23 [place] Rings Not Reportable 09/02/18 23:23 [place] Cells Not Reportable 09/02/18 23:23 Bite Cells Not Reportable 09/02/18 23:23 Crenated Cell Not Reportable 09/02/18 23:23 Elliptocytes Not Reportable 09/02/18 23:23 Acanthocytes (Spur) Not Reportable 09/02/18 23:23 Rouleaux Not Reportable 09/02/18 23:23 Hemoglobin C Crystals Not Reportable 09/02/18 23:23 Schistocytes Not Reportable 09/02/18 23:23 Malaria parasites Not Reportable 09/02/18 23:23 Charbel Bodies Not Reportable 09/02/18 23:23 Hem Pathologist Commnt No 09/02/18 23:23 Sodium 140 mmol/L (137-145) 09/02/18 23:23 Potassium 5.9 mmol/L (3.6-5.0) H 09/02/18 23:23 Chloride 99.5 mmol/L (98-107) 09/02/18 23:23 Carbon Dioxide 25 mmol/L (22-30) 09/02/18 23:23 Anion Gap 21 mmol/L 09/02/18 23:23 BUN 63 mg/dL (9-20) H 09/02/18 23:23 Creatinine 11.6 mg/dL (0.8-1.5) H 09/02/18 23:23 Estimated GFR 6 ml/min 09/02/18 23:23 BUN/Creatinine Ratio 5 % 09/02/18 23:23 Glucose 110 mg/dL (75-100) H 09/02/18 23:23 Lactic Acid 0.80 mmol/L (0.7-2.0) 09/02/18 23:25 Calcium 9.6 mg/dL (8.4-10.2) 09/02/18 23:23 Total Bilirubin 0.40 mg/dL (0.1-1.2) 09/02/18 23:23 AST 13 units/L (5-40) 09/02/18 23:23 ALT 9 units/L (7-56) 09/02/18 23:23 Alkaline Phosphatase 87 units/L (35-129) 09/02/18 23:23 Total Creatine Kinase 827 units/L (55-170) H 09/03/18 07:56 CK-MB (CK-2) 8.3 ng/mL (0.0-4.0) H 09/03/18 07:56 CK-MB (CK-2) Rel Index 1.0 (0-4) 09/03/18 07:56 Troponin T 0.559 ng/mL (0.00-0.029) H* 09/03/18 07:56 NT-Pro-B Natriuret Pep 74751 pg/mL (0-450) H 09/02/18 23:23 Total Protein 6.5 g/dL (6.3-8.2) 09/02/18 23:23 Albumin 3.6 g/dL (3.9-5) L 09/02/18 23:23 Albumin/Globulin Ratio 1.2 % 09/02/18 23:23 Triglycerides 43 mg/dL (2-149) 09/02/18 23:23 Cholesterol 105 mg/dL (50-199) 09/02/18 23:23 LDL Cholesterol Direct 63 mg/dL (50-130) 09/02/18 23:23 HDL Cholesterol 42 mg/dL (40-59) 09/02/18 23:23 Cholesterol/HDL Ratio 2.50 % 09/02/18 23:23 Active Medications - Current Medications Current Medications: Generic Name Dose Route Start Last Admin Trade Name Freq PRN Reason Stop Dose Admin Acetaminophen 650 mg 09/03/18 02:28 Tylenol PO Q4H PRN Pain MILD(1-3)/Fever >100.5/SWAIN Clonidine HCl 0.2 mg 09/03/18 10:00 Catapres PO BID FOSTER Dextrose 50 ml 09/03/18 01:48 D50w (25gm) Syringe IV PRN PRN Hypoglycemia Enoxaparin Sodium 30 mg 09/03/18 10:00 Lovenox SUB-Q QDAY FOSTER Hydralazine HCl 25 mg 09/03/18 06:00 09/03/18 06:49 Apresoline PO 25 mg Q8HR FOSTER Administration Sodium Chloride 100 mls @ 999 mls/hr 09/03/18 01:44 Nacl 0.9% IV JULIA PRN Hypotension Morphine Sulfate 2 mg 09/03/18 02:28 Morphine IV Q4H PRN Pain, Moderate (4-6) Ondansetron HCl 4 mg 09/03/18 02:28 Zofran IV Q8H PRN Nausea And Vomiting Oxycodone/Acetaminophen 1 tab 09/03/18 04:40 Percocet 5/325 PO Q6H PRN Pain , Severe (7-10) Sodium Chloride 10 ml 09/03/18 10:00 Sodium Chloride Flush Syringe 10 Ml IV BID FOSTER Sodium Chloride 10 ml 09/03/18 02:28 Sodium Chloride Flush Syringe 10 Ml IV PRN PRN LINE FLUSH
[2018-09-03] MEDS: MORPHINE IV PRN ×2 (09:05→16:21)
[2018-09-03] MEDS: LOVENOX SUB-Q SCH ×2 (09:05→10:41)
[2018-09-03] MEDS: SODIUM CHLORIDE FLUSH SYRINGE 10 ML IV SCH ×2 (09:11→21:06)
--- NOTE | 2018-09-03 09:31 | Consultation ---
History of Present Illness - Reason for Consult Consult date: 09/03/18 end stage renal disease - History of Present Illness the patient with ESRD on HD 2/2 CKD last treatment was Monday, he came the ER for worsening abd distention and SOB, his last dialysis was done Monday, he stated his sx has been getting worse for the last few days and no much improvement since his last tx with HD on Monday. renal consult requested for management of HD while inpatient Past History Past Medical History: dialysis, hypertension, hyperlipidemia, liver disease, renal failure Past Surgical History: No surgical history, Other (hemodialysis fistula) Social history: no significant social history, lives with family Family history: no significant family history Medications and Allergies Allergies Allergy/AdvReac Type Severity Reaction Status Date / Time tramadol [From Ultram] AdvReac Dizziness Verified 03/05/18 15:30 Home Medications Medication Instructions Recorded Confirmed Last Taken Type cloNIDine [Catapres] 0.2 mg PO BID #60 tablet 08/08/18 08/20/18 Unknown Rx oxyCODONE /ACETAMINOPHEN [Percocet 1 tab PO Q6H PRN #10 tablet 08/08/18 08/20/18 Unknown Rx 5/325 mg] guaiFENesin/CODEINE [Robitussin AC] 5 ml PO Q12H PRN 5 Days oral.liqd 08/21/18 Unknown Rx hydrALAZINE [Apresoline TAB] 25 mg PO Q8HR #30 tablet 08/21/18 Unknown Rx Active Meds: Active Medications Acetaminophen (Tylenol) 650 mg PO Q4H PRN PRN Reason: Pain MILD(1-3)/Fever >100.5/SWAIN Clonidine HCl (Catapres) 0.2 mg PO BID [facility] Last Admin: 09/03/18 09:04 Dose: 0.2 mg Documented by: Dextrose (D50w (25gm) Syringe) 50 ml IV PRN PRN PRN Reason: Hypoglycemia Enoxaparin Sodium (Lovenox) 30 mg SUB-Q QDAY [facility] Hydralazine HCl (Apresoline) 25 mg PO Q8HR [facility] Last Admin: 09/03/18 06:49 Dose: 25 mg Documented by: Sodium Chloride (Nacl 0.9%) 100 mls @ 999 mls/hr IV JULIA PRN PRN Reason: Hypotension Morphine Sulfate (Morphine) 2 mg IV Q4H PRN PRN Reason: Pain, Moderate (4-6) Last Admin: 09/03/18 09:05 Dose: 2 mg Documented by: Ondansetron HCl (Zofran) 4 mg IV Q8H PRN PRN Reason: Nausea And Vomiting Oxycodone/Acetaminophen (Percocet 5/325) 1 tab PO Q6H PRN PRN Reason: Pain , Severe (7-10) Sodium Chloride (Sodium Chloride Flush Syringe 10 Ml) 10 ml IV BID FOSTER Last Admin: 09/03/18 09:11 Dose: 10 ml Documented by: Sodium Chloride (Sodium Chloride Flush Syringe 10 Ml) 10 ml IV PRN PRN PRN Reason: LINE FLUSH Review of Systems All systems: negative (SOB, abd pain and distention) Exam - Vital Signs Vital signs: Vital Signs Temp Pulse Resp BP Pulse Ox 97.9 F 58 L 30 H 173/82 97 09/02/18 23:04 09/02/18 23:04 09/02/18 23:04 09/02/18 23:04 09/02/18 23:04 - General Appearance General appearance: well-developed, well-nourished EENT: ATNC, PERRL, mucous membranes moist Neck: Present: neck supple Respiratory: Rales, Decreased Breath Sounds Heart: regular, S1S2 Gastrointestinal: Present: normoactive bowel sounds Integumentary: no rash, warm and dry Neurologic: no focal deficit, no asterixis, alert and oriented x3 Musculoskeletal: Present: other (Anasarca) Psychiatric: mood/affect appropriate, cooperative Results - Lab Results 09/02/18 23:23 09/02/18 23:23 Most recent lab results Calcium 9.6 mg/dL (8.4-10.2) 09/02/18 23:23 Assessment and Plan ESRD on HD hyperkalemia hypoxic respiratory failure Ascites due to cirrhosis HTN Anemia in CKD - HD today for clearance and volume removal - will assess dialysis needs daily, HD ordered for tomorrow - Epogen with HD - renally dose meds - strict I&O - daily weight Bridger Joshua MD [phone]
[2018-09-03] MEDS ORDERED: CATAPRES PO SCH (10:00)
[2018-09-03 12:40] LABS: Creatine Kinase MB 9.1 ng/mL (0.0-4.0)
--- NOTE | 2018-09-03 14:44 | Consultation ---
History of Present Illness Consult date: 09/03/18 Consult reason: elevated troponin History of present illness: The patient is a 48-year-old man with multiple medical problems. He has end- stage renal disease on hemodialysis, hypothyroidism, hypertension and chronic ascites that has required frequent paracentesis. He also has a moderate severity nonischemic myopathy, most recent echocardiogram 4 months ago documented a left ventricular ejection fraction 35-40%. He follows up regularly with his primary wet trimmer Dr. Ayala. He presents to the hospital at this time with right flank pain. This is associated with an increase in his chronic ascites. He states that in fact he has an outpatient appointment in 2 days for his routine paracentesis. There is no chest pain, no unusual shortness of breath, no edema, no palpitations. EKG was sinus rhythm of 59, normal ECG. Chest x-ray revealed cardiomegaly, representing mostly atrial enlargement, no interstitial edema or heart failure. Past History Past Medical History: dialysis, heart failure, hypertension, hyperlipidemia, liver disease, renal failure Past Surgical History: No surgical history, Other (hemodialysis fistula) Social history: no significant social history, lives with family Family history: no significant family history Medications and Allergies Allergies Allergy/AdvReac Type Severity Reaction Status Date / Time tramadol [From Ultram] AdvReac Dizziness Verified 03/05/18 15:30 Home Medications Medication Instructions Recorded Confirmed Last Taken Type cloNIDine [Catapres] 0.2 mg PO BID #60 tablet 08/08/18 08/20/18 Unknown Rx oxyCODONE /ACETAMINOPHEN [Percocet 1 tab PO Q6H PRN #10 tablet 08/08/18 08/20/18 Unknown Rx 5/325 mg] guaiFENesin/CODEINE [Robitussin AC] 5 ml PO Q12H PRN 5 Days oral.liqd 08/21/18 Unknown Rx hydrALAZINE [Apresoline TAB] 25 mg PO Q8HR #30 tablet 08/21/18 Unknown Rx Active Meds: Active Medications Acetaminophen (Tylenol) 650 mg PO Q4H PRN PRN Reason: Pain MILD(1-3)/Fever >100.5/SWAIN Clonidine HCl (Catapres) 0.2 mg PO BID FOSTER Last Admin: 09/03/18 09:04 Dose: 0.2 mg Documented by: Dextrose (D50w (25gm) Syringe) 50 ml IV PRN PRN PRN Reason: Hypoglycemia Enoxaparin Sodium (Lovenox) 30 mg SUB-Q QDAY [facility] Last Admin: 09/03/18 10:41 Dose: Not Given Documented by: Hydralazine HCl (Apresoline) 25 mg PO Q8HR [facility] [place] Last Admin: 09/03/18 06:49 Dose: 25 mg Documented by: Sodium Chloride (Nacl 0.9%) 100 mls @ 999 mls/hr IV JULIA PRN PRN Reason: Hypotension Morphine Sulfate (Morphine) 2 mg IV Q4H PRN PRN Reason: Pain, Moderate (4-6) Last Admin: 09/03/18 09:05 Dose: 2 mg Documented by: Ondansetron HCl (Zofran) 4 mg IV Q8H PRN PRN Reason: Nausea And Vomiting Oxycodone/Acetaminophen (Percocet 5/325) 1 tab PO Q6H PRN PRN Reason: Pain , Severe (7-10) Sodium Chloride (Sodium Chloride Flush Syringe 10 Ml) 10 ml IV BID [facility] [place] Last Admin: 09/03/18 09:11 Dose: 10 ml Documented by: Sodium Chloride (Sodium Chloride Flush Syringe 10 Ml) 10 ml IV PRN PRN PRN Reason: LINE FLUSH Review of Systems Cardiovascular: edema, shortness of breath, no chest pain, no orthopnea, no palpitations, no rapid/irregular heart beat, no syncope, no lightheadedness Physical Examination Vital Signs Temp Pulse Resp BP Pulse Ox 97.9 F 58 L 30 H 173/82 97 09/02/18 23:04 09/02/18 23:04 09/02/18 23:04 09/02/18 23:04 09/02/18 23:04 General appearance: no acute distress HEENT: Positive: PERRL Neck: Positive: neck supple Cardiac: Positive: Reg Rate and Rhythm Lungs: Positive: Decreased Breath Sounds Neuro: Positive: Grossly Intact Abdomen: Positive: Distended Male genitourinary: Positive: deferred Skin: Positive: Clear Extremities: Present: edema (trace) Results 09/02/18 23:23 09/02/18 23:23 Cardiac Enzymes 09/02/18 09/02/18 09/03/18 Range/Units 23:23 23:23 07:56 AST 13 (5-40) units/L CK-MB (CK-2) 9.5 H 8.3 H (0.0-4.0) ng/mL 09/03/18 Range/Units 11:59 AST (5-40) units/L CK-MB (CK-2) 9.1 H (0.0-4.0) ng/mL Lipids 09/02/18 Range/Units 23:23 Triglycerides 43 (2-149) mg/dL Cholesterol 105 (50-199) mg/dL HDL Cholesterol 42 (40-59) mg/dL Cholesterol/HDL Ratio 2.50 % CBC 09/02/18 Range/Units 23:23 WBC 6.0 (4.5-11.0) K/mm3 RBC 3.23 L (3.65-5.03) M/mm3 Hgb 9.1 L (11.8-15.2) gm/dl Hct 28.1 L (35.5-45.6) % Plt Count 204 (140-440) K/mm3 Comprehensive Metabolic Panel 09/02/18 Range/Units 23:23 Sodium 140 (137-145) mmol/L Potassium 5.9 H (3.6-5.0) mmol/L Chloride 99.5 (98-107) mmol/L Carbon Dioxide 25 (22-30) mmol/L BUN 63 H (9-20) mg/dL Creatinine 11.6 H (0.8-1.5) mg/dL Glucose 110 H (75-100) mg/dL Calcium 9.6 (8.4-10.2) mg/dL AST 13 (5-40) units/L ALT 9 (7-56) units/L Alkaline Phosphatase 87 (35-129) units/L Total Protein 6.5 (6.3-8.2) g/dL Albumin 3.6 L (3.9-5) g/dL EKG interpretations - Telemetry EKG Rhythm: Sinus Rhythm Assessment and Plan - Patient Problems (1) Abdominal distension Current Visit: No Status: Acute Plan to address problem: Patient's main clinical problem is his recurrent, chronic ascites, that requires paracentesis. No active cardiac issues, will follow on a when necessary basis.
[2018-09-03] MEDS ORDERED: XYLOCAINE 1% 20 mL ONE (15:15)
--- NOTE | 2018-09-03 15:54 | Procedure Note ---
Date of procedure: 09/03/18 Pre-op diagnosis: ascites Post-op diagnosis: same Procedure: paracentesis Findings: straw colored fluid Anesthesia: local Surgeon: WENDI BOWER Estimated blood loss: none Pathology: none Specimen disposition: discarded Condition: stable Disposition: floor
--- NOTE | 2018-09-03 16:02 | Ultrasound Report ---
Ultrasound guided paracentesis: Ascites. Imaging of the abdomen demonstrates scattered areas of fluid with gas distended bowel loops. An approach site was identified in the right lower quadrant. The skin was marked, cleansed, and draped. 1% lidocaine used for local anesthesia. Through a small skin meka a 5 [place] Yuey catheter was successfully placed into the fluid pocket. 3.7 L of straw-colored fluid were successfully removed without complication. The fluid was discarded.
[2018-09-03] MEDS ORDERED: CATAPRES PO ONE (19:29)
[2018-09-03] MEDS ORDERED: APRESOLINE IV PRN (19:33)
[2018-09-03] MEDS: CATAPRES PO SCH (20:48)
[2018-09-04 05:55] LABS: Basophils % (Auto) 0.7 % (0.0-1.8); Eosinophils # (Auto) 0.2 K/mm3 (0.0-0.4); Eosinophils % (Auto) 2.8 % (0.0-4.3); Hematocrit 29.8 % (35.5-45.6); Hemoglobin 9.4 gm/dl (11.8-15.2); Lymphocytes # (Auto) 0.9 K/mm3 (1.2-5.4); Lymphocytes % (Auto) 15.5 % (13.4-35.0); Mean Corpuscular HGB Conc 32 % (32-34); Mean Corpuscular Volume 87 fl (84-94); Monocytes # (Auto) 0.8 K/mm3 (0.0-0.8); Monocytes % (Auto) 13.8 % (0.0-7.3); Platelet Count 193 K/mm3 (140-440); Red Blood Count 3.42 M/mm3 (3.65-5.03)
[2018-09-04 05:56] LABS: Red Cell Distribution Width 21.4 % (13.2-15.2)
[2018-09-04] MEDS: APRESOLINE PO SCH (06:12)
[2018-09-04 06:21] LABS: Calcium 9.4 mg/dL (8.4-10.2)
[2018-09-04] MEDS: CATAPRES PO SCH (09:07)
[2018-09-04] MEDS: LOVENOX SUB-Q SCH (09:07)
[2018-09-04] MEDS: SODIUM CHLORIDE FLUSH SYRINGE 10 ML IV SCH (09:07)
[2018-09-04 09:48] VITALS: BP 171/88
--- NOTE | 2018-09-04 10:49 | Discharge Summary ---
Providers - Providers Date of Admission: 09/03/18 01:49 Date of discharge: 09/04/18 Attending physician: DAHLIA MORIN 09/03/18 Consult to Case Management [CONS] Routine Services Needed at Discharge: Home Health Services Notified:: cm notified Additional Physician Instructions: DC planning and pt's request for help to change dialysis center 09/03/18 01:48 Consult to Physician [CONS] Stat Comment: Dr. Brambila spoke with Dr. Casey @ [id number] Consulting Provider: MARY JO CASEY Physician Instructions: Reason For Exam: volume overload. hyperkalemia. esrd. e hd 09/03/18 04:36 Consult to Physician [CONS] Routine Comment: Consulting Provider: JEREMIAH CERDA Physician Instructions: Reason For Exam: paracenthesis Primary care physician: [employer] Hospitalization Reason for admission: Abdominal pain/worsening ascitis Condition: Stable Pertinent studies: CT abd and pelvis CXR Procedures: US guided abdominalparacentesis and removal of 3.7 lt Hospital course: Patient was admitted with abdominal pain and worsening ascitis.Patient underwent US guided abdominal paracentesis and removal of 3.7 lt peritoneal fluid .Seen by nephrology, had HD per schedule. Patient was also evaluated by cardiology medications optimised. Patient's symptoms significantly improved. Today patient is comfortable,no new complaints,vital signs are stable,physical exam is unremarkable. 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 --Cirrhosis liver; patient advised to follow-up with the GI upon discharge per schedule Continue supportive care --DVT prophylaxis; Lovenox Stable at discharge Disposition: DC-01 TO HOME OR SELFCARE Time spent for discharge: 32 min Core Measure Documentation - Palliative Care Palliative Care/ Comfort Measures: Not Applicable - Core Measures Any of the following diagnoses?: none Exam - Constitutional Vitals: Temp Pulse Resp BP Pulse Ox 98.5 F 69 16 171/88 97 09/04/18 09:20 09/04/18 09:20 09/04/18 09:20 09/04/18 09:20 09/04/18 09:49 General appearance: Present: no acute distress, well-nourished - EENT Eyes: Present: PERRL, EOM intact - Neck Neck: Present: supple, normal ROM - Respiratory Respiratory effort: normal Respiratory: bilateral: diminished, negative: rales, rhonchi, wheezing - Cardiovascular Rhythm: regular Heart Sounds: Present: S1 & S2 - Extremities Extremities: no ischemia, pulses intact - Abdominal General gastrointestinal: Present: soft, non-tender, non-distended, normal bowel sounds - Integumentary Integumentary: Present: clear, warm - Musculoskeletal Musculoskeletal: strength equal bilaterally, generalized weakness - Psychiatric Psychiatric: appropriate mood/affect, cooperative - Neurologic Neurologic: moves all extremities Plan Activity: no restrictions Diet: renal Additional Instructions: f/u Renal/HD per schedule. Is to comply with medications/hemodialysis/follow-up visits and diet Follow up with: PRIMARY CAREMD [Primary Care Provider] - 3-5 Days SYLWIA CARY MD [Staff Physician] - 7 Days Prescriptions: cloNIDine [Catapres] 0.2 mg PO BID #60 tablet
--- NOTE | 2018-09-04 10:58 | Progress Note ---
Assessment and Plan ESRD on HD hyperkalemia hypoxic respiratory failure Ascites due to cirrhosis HTN Anemia in CKD - will do HD today in dialysis clinic, ok to be discharged from renal standpoint - Epogen with HD - renally dose meds - strict I&O - daily weight Bridger Joshua MD [phone] Subjective Date of service: 09/04/18 Principal diagnosis: ESRD on HD Interval history: tolerated HD yesterday but does not to do treatment in the hospital today, he will do HD in his dialysis clinic Objective - Vital Signs Vital signs: Vital Signs - 12hr 09/04/18 09/04/18 09/04/18 00:16 04:55 06:12 Temperature 98.0 F 98.0 F Pulse Rate 76 65 66 Respiratory 20 18 Rate Blood Pressure 181/86 159/79 174/94 O2 Sat by Pulse 90 95 Oximetry 09/04/18 09/04/18 09:20 09:49 Temperature 98.5 F Pulse Rate 69 Respiratory 16 Rate Blood Pressure 171/88 O2 Sat by Pulse 90 97 Oximetry - General Appearance General appearance: well-developed, well-nourished, appears stated age EENT: ATNC, PERRL, mucous membranes moist Neck: no JVD, no carotid bruit Respiratory: Present: Clear to Ascultation. Absent: Rales, Ronchi Cardiology: regular, S1S2 Gastrointestinal: normoactive bowel sounds, distended Integumentary: no rash, warm and dry Neurologic: no focal deficit, no asterixis, alert and oriented x3 Musculoskeletal: other (Anasarca) Psychiatric: mood/affect appropriate, cooperative - Lab 09/04/18 05:14 09/04/18 05:14 Most recent lab results Calcium 9.4 mg/dL (8.4-10.2) 09/04/18 05:14 Medications & Allergies - Medications Allergies/Adverse Reactions: Allergies tramadol [From Ultram] Adverse Reaction (Verified 03/05/18 15:30) Dizziness Home Medications: Home Medications Medication Instructions Recorded Confirmed Last Taken Type oxyCODONE /ACETAMINOPHEN [Percocet 1 tab PO Q6H PRN #10 tablet 08/08/18 09/04/18 09/03/18 17:00 Rx 5/325 mg] guaiFENesin/CODEINE [Robitussin AC] 5 ml PO Q12H PRN 5 Days oral.liqd 08/21/18 09/04/18 08/22/18 10:00 Rx hydrALAZINE [Apresoline TAB] 25 mg PO Q8HR #30 tablet 08/21/18 09/04/18 08/28/18 10:00 Rx cloNIDine [Catapres] 0.2 mg PO BID #60 tablet 09/04/18 Unknown Rx Active Medications: Generic Name Dose Route Start Last Admin Trade Name Freq PRN Reason Stop Dose Admin Acetaminophen 650 mg 09/03/18 02:28 Tylenol PO Q4H PRN Pain MILD(1-3)/Fever >100.5/SWAIN Clonidine HCl 0.2 mg 09/03/18 20:00 09/04/18 09:07 Catapres PO 0.2 mg TID FOSTER Administration Dextrose 50 ml 09/03/18 01:48 D50w (25gm) Syringe IV PRN PRN Hypoglycemia Enoxaparin Sodium 30 mg 09/03/18 10:00 09/04/18 09:07 Lovenox SUB-Q Not Given QDAY FOSTER Hydralazine HCl 50 mg 09/03/18 19:31 09/04/18 06:12 Apresoline PO Not Given Q8HR FOSTER Hydralazine HCl 10 mg 09/03/18 19:33 Apresoline IV Q4HR PRN Hypertension Sodium Chloride 100 mls @ 999 mls/hr 09/03/18 01:44 Nacl 0.9% IV JULIA PRN Hypotension Morphine Sulfate 2 mg 09/03/18 02:28 09/03/18 16:21 Morphine IV 2 mg Q4H PRN Administration Pain, Moderate (4-6) Ondansetron HCl 4 mg 09/03/18 02:28 09/03/18 17:35 Zofran IV 4 mg Q8H PRN Administration Nausea And Vomiting Oxycodone/Acetaminophen 1 tab 09/03/18 21:50 09/03/18 22:24 Percocet 5/325 PO 1 tab Q4H PRN Administration Pain, Moderate (4-6) Sodium Chloride 10 ml 09/03/18 10:00 09/04/18 09:07 Sodium Chloride Flush Syringe 10 Ml IV 10 ml BID FOSTER Administration Sodium Chloride 10 ml 09/03/18 02:28 Sodium Chloride Flush Syringe 10 Ml IV PRN PRN LINE FLUSH
== END 2018-09-04 11:15 | disposition home or self-care (01) | DRG 432 ==
LOC: ED 22:51 → 4A 09-03 01:49
PROVIDERS: ADMIT Internal Medicine; ATTEND Internal Medicine
PROC: 0W9G3ZZ Drainage of Peritoneal Cavity, Percutaneous Approach (ICD-10-PCS; principal; 2018-09-03)
PROC: 5A1D70Z Performance of Urinary Filtration, Intermittent, Less than 6 Hours Per Day (ICD-10-PCS; 2018-09-03)
DX: K74.60 Unspecified cirrhosis of liver (principal); N18.6 End stage renal disease; J96.91 Respiratory failure, unspecified with hypoxia; I50.33 Acute on chronic diastolic (congestive) heart failure; I13.2 Hypertensive heart and chronic kidney disease with heart failure and with stage 5 chronic kidney disease, or end stage renal disease; Q61.3 Polycystic kidney, unspecified; I42.9 Cardiomyopathy, unspecified; D63.1 Anemia in chronic kidney disease; E03.9 Hypothyroidism, unspecified; K21.9 Gastro-esophageal reflux disease without esophagitis; E87.5 Hyperkalemia; E11.22 Type 2 diabetes mellitus with diabetic chronic kidney disease; Z99.2 Dependence on renal dialysis; Z88.6 Allergy status to analgesic agent; Z95.828 Presence of other vascular implants and grafts; Z79.899 Other long term (current) drug therapy; Z79.84 Long term (current) use of oral hypoglycemic drugs; Z82.49 Family history of ischemic heart disease and other diseases of the circulatory system
CPT/HCPCS: 36415; 49083; 71045; 74176; 80048; 80053; 80061; 82140; 82550; 82553; 83880; 84484; 85007; 85025; 93005; 93010; 96374; 96375; 99291; G0378; J1170; J1650; J1815; J1940; J2270; J2405

== ENCOUNTER 2018-09-20 10:45 | Day surgery (SDC) | payer MEDICARE ==
[2018-09-20 12:19] LABS: INR 1.14 (0.87-1.13); Partial Thromboplastin Time 33.6 Sec. (24.2-36.6)
[2018-09-20] MEDS ORDERED: XYLOCAINE 1% 20 mL ONE (13:43)
--- NOTE | 2018-09-20 14:33 | Short Stay Summary ---
Short Stay Documentation Date of service: 09/20/18 - History Principal diagnosis: ascites Past Medical History: other (renal cystic disease) - Allergies and Medications Current Medications: Allergies tramadol [From [facility]] Adverse Reaction (Verified 03/05/18 15:30) Dizziness Home Medications Medication Instructions Recorded Confirmed Last Taken Type cloNIDine [Catapres] 0.2 mg PO BID #60 tablet 09/04/18 09/20/18 09/20/18 06:30 Rx - Physical exam General appearance: no acute distress Gastrointestinal: distended - Brief post op/procedure progress note Date of procedure: 09/20/18 Pre-op diagnosis: ascites Post-op diagnosis: same Procedure: US paracentesis Anesthesia: local Findings: moderate ascites Surgeon: BARTOLOME IBRAHIM Estimated blood loss: none Pathology: none Specimen disposition: discarded Condition: stable - Hospital course Hospital course: uneventful - Disposition Condition at discharge: Good Disposition: DC-01 TO HOME OR SELFCARE Short Stay Discharge Plan Follow up with: FRANKO GRANDE MD [Primary Care Provider] - 7 Days
[2018-09-20] MEDS ORDERED: ALBURX 25% (ALBUMIN) IV PRN (14:34)
--- NOTE | 2018-09-20 15:38 | Ultrasound Report ---
ULTRASOUND PARACENTESIS HISTORY: Ascites. DESCRIPTION OF PROCEDURE: A time out was performed. Informed consent was obtained. Sterile technique was utilized. Using ultrasound guidance, a 5 Kiswahili centesis needle was advanced into the peritoneal space. There was spontaneous return of clear yellow fluid. 4.2 L of fluid was drained. No complications. IMPRESSION: Successful ultrasound-guided paracentesis.
[2018-09-20 15:47] VITALS: BP 190/99
== END 2018-09-20 15:50 | disposition home or self-care (01) ==
LOC: CATHLABREC 10:45 → EDSTATUS 12:00 → CATHLABREC 15:50
PROVIDERS: ATTEND Internal Medicine Gastroenterology
DX: R18.8 Other ascites (principal); I13.2 Hypertensive heart and chronic kidney disease with heart failure and with stage 5 chronic kidney disease, or end stage renal disease; N18.6 End stage renal disease; I50.22 Chronic systolic (congestive) heart failure; E66.9 Obesity, unspecified; D64.9 Anemia, unspecified; I20.8 Other forms of angina pectoris; K21.9 Gastro-esophageal reflux disease without esophagitis; F32.9 Major depressive disorder, single episode, unspecified; F41.9 Anxiety disorder, unspecified; Z98.890 Other specified postprocedural states; Z86.718 Personal history of other venous thrombosis and embolism; Z79.899 Other long term (current) drug therapy; Z68.37 Body mass index [BMI] 37.0-37.9, adult; Z91.15 Patient's noncompliance with renal dialysis; Z91.19 Patient's noncompliance with other medical treatment and regimen; Z87.440 Personal history of urinary (tract) infections; Z88.8 Allergy status to other drugs, medicaments and biological substances
CPT/HCPCS: 36415; 49083; 85610; 85730

== ENCOUNTER 2018-09-28 17:31 | Inpatient (IN) | payer MEDICARE ==
[2018-09-28 18:06] LABS: Hematocrit 31.4 % (35.5-45.6); Mean Corpuscular HGB Conc 32 % (32-34); Mean Corpuscular Volume 90 fl (84-94); Platelet Count 181 K/mm3 (140-440); Red Blood Count 3.51 M/mm3 (3.65-5.03)
[2018-09-28 18:27] LABS: Red Cell Distribution Width 21.6 % (13.2-15.2)
[2018-09-28 18:37] LABS: Calcium 8.9 mg/dL (8.4-10.2)
[2018-09-28 18:39] LABS: INR 1.23 (0.87-1.13)
[2018-09-28] MEDS ORDERED: APRESOLINE IV ONE (19:10)
[2018-09-28] MEDS ORDERED: D50W (25GM) Syringe IV ONE (19:11)
[2018-09-28] MEDS ORDERED: KIONEX PO ONE (19:11)
[2018-09-28] MEDS ORDERED: HumuLIN R IV ONE (19:11)
--- NOTE | 2018-09-28 19:11 | XRay Report ---
PROCEDURE: XR CHEST 1V AP HISTORY: esrd svt FINDINGS: Single frontal view of the chest was acquired and compared to the prior examination of Apri l 7. There is cardiomegaly unchanged. There is no evidence of congestive heart failure. There is no consol idative pulmonary infiltrate. IMPRESSION: Cardiomegaly unchanged No evidence of congestive heart failure This document is electronically signed by Brett Schultz MD., Sep 28 2018 07:09:40 PM ET
--- NOTE | 2018-09-28 19:12 | Emergency Department Report ---
ED General Adult HPI - General Chief complaint: Arrhythmia/Palpitations Stated complaint: RAPID HEART RATE Time Seen by Provider: 09/28/18 17:44 Source: patient, EMS (verbal report received from EMS.ems notes not available at time of chart dictation), RN notes reviewed, old records reviewed Mode of arrival: Stretcher Limitations: No Limitations - History of Present Illness Initial comments: Gastroenterology: Dr. Sanchez Nephrology: Dr. Dianne Mercedes; [phone] This is a 48-year-old gentleman. The patient has a past medical history of end- stage renal disease, on dialysis, Monday, , Monday, hypothyroidism, hypertension, chronic ascites, presumed nonischemic cardiomyopathy. Patient presents to the emergency room with EMS for resolved SVT. As per verbal report from EMS, patient called 911 because a sensation of painless heart racing and palpitations. Patient found to be in SVT in the field, given adenosine 2, which resolved his symptoms. Patient complains of abdominal distention and discomfort. He feels like he is fluid overloaded. He has mild shortness of breath. Symptoms constant. I do not have exacerbating factors besides physical exertion. They typically decreased with paracentesis. -: Sudden Location: abdomen Severity scale (0 -10): 0 Consistency: constant Improves with: other Worsens with: other - Related Data Previous Rx's Medication Instructions Recorded Last Taken Type cloNIDine [Catapres] 0.2 mg PO BID #60 tablet 09/04/18 09/20/18 06:30 Rx Allergies Allergy/AdvReac Type Severity Reaction Status Date / Time tramadol [From Ultram] AdvReac Dizziness Verified 03/05/18 15:30 ED Review of Systems ROS: Stated complaint: RAPID HEART RATE Other details as noted in HPI Constitutional: denies: fever Eyes: denies: vision change ENT: denies: epistaxis Respiratory: shortness of breath Cardiovascular: edema (chronic). denies: chest pain Gastrointestinal: other (chronic abdominal distention) Genitourinary: denies: dysuria Musculoskeletal: joint swelling, arthralgia, myalgia, other (chronic lower extremity swelling) Skin: rash (chronic lower extremity discoloration) Neurological: weakness Psychiatric: anxiety ED Past Medical Hx - Past Medical History Previous Medical History?: Yes Hx Hypertension: Yes Hx CVA: No Hx Heart Attack/AMI: No Hx Congestive Heart Failure: Yes (diastolic - CHRONIC , CARDIOMYOPATHY) Hx Diabetes: No Hx Deep Vein Thrombosis: No Hx Pulmonary Embolism: No Hx GERD: Yes Hx Liver Disease: No Hx Renal Disease: Yes (ESRD, dialysis T, TH, Sat) Hx of Cancer: No Hx Sickle Cell Disease: No Hx Arthritis: No Hx Headaches / Migraines: No Hx Seizures: No Hx Kidney Stones: No Hx Psychiatric Treatment: No Hx Asthma: No Hx COPD: No Hx Tuberculosis: No Hx Dementia: No Hx HIV: No Additional medical history: Abdominal Hernias, right groin hernia, - Surgical History Past Surgical History?: No Hx Coronary Stent: No Hx Open Heart Surgery: No Hx Pacemaker: No Hx Internal Defibrillator: No Hx Cholecystectomy: No Hx Appendectomy: No Hx Breast Surgery: No Additional Surgical History: dialysis access left arm, groin hernia repair, - Social History Smoking Status: Former Smoker Substance Use Type: None - Medications Home Medications: Home Medications Medication Instructions Recorded Confirmed Last Taken Type cloNIDine [Catapres] 0.2 mg PO BID #60 tablet 09/04/18 09/20/18 09/20/18 06:30 Rx ED Physical Exam - General Limitations: Physical Limitation General appearance: alert, anxious, obese - Head Head exam: Present: atraumatic, normocephalic - Eye Eye exam: Present: normal appearance, EOMI. Absent: nystagmus - ENT ENT exam: Present: normal exam, normal orophraynx, mucous membranes moist, normal external ear exam - Neck Neck exam: Present: normal inspection, full ROM. Absent: tenderness, meningismus - Respiratory Respiratory exam: Present: normal lung sounds bilaterally, decreased breath sounds. Absent: rales, rhonchi, stridor - Cardiovascular Cardiovascular Exam: Present: regular rate, normal rhythm, normal heart sounds. Absent: bradycardia, tachycardia, irregular rhythm, systolic murmur, diastolic murmur, rubs, gallop - GI/Abdominal GI/Abdominal exam: Present: soft, distended. Absent: tenderness, guarding, rebound, rigid, pulsatile mass - Rectal Rectal exam: Present: deferred - Extremities Exam Extremities exam: Present: normal inspection, full ROM, pedal edema, other (2+ pulses noted in the bilateral upper, lower extremities. Compartments soft. No long bony tenderness. The pelvis is stable.). Absent: calf tenderness - Back Exam Back exam: Present: normal inspection, full ROM. Absent: CVA tenderness (R), CVA tenderness (L), paraspinal tenderness, vertebral tenderness - Neurological Exam Neurological exam: Present: alert, oriented X3, other (Extraocular movements intact. Tongue midline. No facial droop. Facial sensation intact to light touch in the V1, V2, V3 distribution bilaterally. 5 and 5 strength in 4 extremities.. Sensation is intact to light touch in 4 extremities.) - Psychiatric Psychiatric exam: Present: anxious - Skin Skin exam: Present: warm ED Course Vital Signs 09/28/18 09/28/18 09/28/18 17:37 17:41 17:46 Temperature 98.6 F Pulse Rate 79 79 75 Respiratory 16 12 20 Rate Blood Pressure 167/89 167/89 Blood Pressure 167/89 [Right] O2 Sat by Pulse 93 96 96 Oximetry 09/28/18 09/28/18 09/28/18 18:00 18:16 18:30 Temperature Pulse Rate 69 69 71 Respiratory 16 18 23 Rate Blood Pressure 167/89 167/89 167/89 Blood Pressure [Right] O2 Sat by Pulse 99 100 100 Oximetry 09/28/18 09/28/18 09/28/18 18:46 19:00 19:16 Temperature Pulse Rate 73 68 68 Respiratory 19 20 14 Rate Blood Pressure 181/107 181/107 181/107 Blood Pressure [Right] O2 Sat by Pulse 98 98 99 Oximetry 09/28/18 09/28/18 09/28/18 19:30 19:46 20:00 Temperature Pulse Rate 66 77 75 Respiratory 17 27 H 27 H Rate Blood Pressure 181/107 179/109 188/105 Blood Pressure [Right] O2 Sat by Pulse 98 100 87 Oximetry 09/28/18 09/28/18 09/28/18 20:16 20:30 20:36 Temperature Pulse Rate 72 71 77 Respiratory 21 19 Rate Blood Pressure 188/105 187/103 Blood Pressure [Right] O2 Sat by Pulse 97 Oximetry ED Medical Decision Making - Lab Data Result diagrams: 09/28/18 17:53 09/28/18 17:53 Vital Signs 09/28/18 17:41 Temperature 98.6 F Pulse Rate 79 Respiratory 12 Rate Blood Pressure 167/89 Blood Pressure 167/89 [Right] O2 Sat by Pulse 96 Oximetry Lab Results 09/28/18 09/28/18 09/28/18 Range/Units 17:53 17:53 17:53 WBC 6.1 (4.5-11.0) K/mm3 RBC 3.51 L (3.65-5.03) M/mm3 Hgb 10.0 L (11.8-15.2) gm/dl Hct 31.4 L (35.5-45.6) % MCV 90 (84-94) fl MCH 29 (28-32) pg MCHC 32 (32-34) % RDW 21.6 H (13.2-15.2) % Plt Count 181 (140-440) K/mm3 PT 16.3 H (12.2-14.9) Sec. INR 1.23 H (0.87-1.13) Sodium 139 (137-145) mmol/L Potassium 5.6 H (3.6-5.0) mmol/L Chloride 99.0 (98-107) mmol/L Carbon Dioxide 24 (22-30) mmol/L Anion Gap 22 mmol/L BUN 65 H (9-20) mg/dL Creatinine 12.3 H (0.8-1.5) mg/dL Estimated GFR 5 ml/min BUN/Creatinine Ratio 5 % Glucose 123 H (75-100) mg/dL Calcium 8.9 (8.4-10.2) mg/dL TSH (0.270-4.200) mlU/mL 09/28/18 Range/Units 17:53 WBC (4.5-11.0) K/mm3 RBC (3.65-5.03) M/mm3 Hgb (11.8-15.2) gm/dl Hct (35.5-45.6) % MCV (84-94) fl MCH (28-32) pg MCHC (32-34) % RDW (13.2-15.2) % Plt Count (140-440) K/mm3 PT (12.2-14.9) Sec. INR (0.87-1.13) Sodium (137-145) mmol/L Potassium (3.6-5.0) mmol/L Chloride (98-107) mmol/L Carbon Dioxide (22-30) mmol/L Anion Gap mmol/L BUN (9-20) mg/dL Creatinine (0.8-1.5) mg/dL Estimated GFR ml/min BUN/Creatinine Ratio % Glucose (75-100) mg/dL Calcium (8.4-10.2) mg/dL TSH 6.080 H (0.270-4.200) mlU/mL - EKG Data -: EKG Interpreted by Me EKG shows normal: sinus rhythm Rate: normal - EKG Data 09/28/18 20:04 This is a sinus rhythm, normal axis, QTC prolonged, atrial enlargement, left ventricular hypertrophy, abnormal EKG, 68 bpm, not consistent with ST elevation myocardial infarction, unchanged from prior EKG from 09/03/2018 - Radiology Data Radiology results: report reviewed, image reviewed Enlarged cardiac silhouette. No acute congestive heart failure - Medical Decision Making Differential diagnosis, including but not limited to: SVT, electrolyte derangement, tense ascites, fluid overload, uremia, azotemia, hypertensive urgency Assessment and plan: 48-year-old gentleman with 2 complaints. Complaint #1, SVT, now resolved, and a normal sinus rhythm. Does not require emergent intervention at this time. Has known chronic hypothyroidism. Electrolytes demonstrate hyperkalemia. We will treat medically for hyperkalemia. Given history of SVT, we will withhold beta stimulating agents, including albuterol. Also found to be hypertensive with a blood pressure in the 180s. Also found to have azotemia, and uremia. We will treat medically for hypertensive urgency. His primary fruit picker does not come to this hospital. I have discussed the case with nephrology on-call, Dr. Monge, who will arrange for dialysis. Complaint #2, tense ascites: Patient is afebrile and nontender. However, he does have tense ascites. He will benefit from paracentesis. do not clinically suspect spontaneous bacterial peritonitis at this time. We will admit the patient to the medical service for hyperkalemia, uremia, azotemia, hypertensive urgency, and tense ascites. The Hospital physician, Dr. Santana has accepted the patient to the medical service. Discussed this with the family and patient, who verbalized understanding, and are amenable to hospitalization at this time Critical care attestation.: If time is entered above; I have spent that time in minutes in the direct care of this critically ill patient, excluding procedure time. ED Disposition Clinical Impression: ESRD (end stage renal disease), Abdominal distension, Hypertensive urgency, Hx of supraventricular tachycardia Ascites Qualifiers: Ascites type: other type Qualified Code(s): R18.8 - Other ascites Disposition: DC-09 OP ADMIT IP TO THIS HOSP Is pt being admited?: Yes Condition: Fair
--- NOTE | 2018-09-28 19:23 | History and Physical Report ---
History of Present Illness Chief complaint: My heart was pounding. History of present illness: 48 YO Male with ESRD on HD(T,R,Sa), HTN, PCKD, Cirrhosis, ESLD complicated by Ascites, Diastolic CHF, GERD, Nicotine Dependence presents to ED for evaluation. Pt states that he experienced a sudden onset of chest palpitations. EMS notified and upon arrival the patient was found to have heart palpitations secondary to SVT. Pt treated with Adenosine x 2 with resolution of symptoms. Pt transported to [facility]. Pt seen and evaluated in ED and found to have ESRD, Fluid Overload, and ESLD complicated by Ascites. Pt denies fever, chills, CP, palpitations, NVD, Trauma, BRBPR, Productive Cough, Skin Rash, prolonged travel/immobility, Individual/Family history or DVT/PE/Bleed Clotting Disorders, hemoptysis, or recent ill contacts. Pt admitted to telemetry. Cardiology consulted in ED. Nephrology consulted in ED. IR consulted in ED for Therapeutic Paracentesis. Prior admission on 09/03/18 Reviewed. All listed medication reconciled at time of admission. Past History Past Medical History: ESRD, GERD, hypertension, other (PCKD, Cirrhosis,ESLD, ) Past Surgical History: hernia repair, Other (LUE AV Fistula) Social history: , lives with family. denies: smoking, alcohol abuse, prescription drug abuse Family history: hypertension Medications and Allergies Allergies Allergy/AdvReac Type Severity Reaction Status Date / Time tramadol [From Ultram] AdvReac Dizziness Verified 03/05/18 15:30 Home Medications Medication Instructions Recorded Confirmed Last Taken Type cloNIDine [Catapres] 0.2 mg PO BID #60 tablet 09/04/18 09/20/18 09/20/18 06:30 Rx Active Meds: Active Medications Calcium Gluconate 1,000 mg/ (Sodium Chloride) 110 mls @ 660 mls/hr IV ONCE ONE Stop: 09/28/18 19:39 Review of Systems Constitutional: no weight loss, no weight gain, no fever, no chills Ears, nose, mouth and throat: no ear pain, no ear discharge, no tinnitis, no decreased hearing, no nose pain Cardiovascular: palpitations, rapid/irregular heart beat, edema, no chest pain, no orthopnea, no syncope, no lightheadedness, no shortness of breath Respiratory: no cough, no cough with sputum, no excessive sputum, no hemoptysis Gastrointestinal: no abdominal pain, no nausea, no vomiting, no diarrhea Genitourinary Male: no hematuria, no flank pain, no discharge, no urinary frequency, no urinary hesitancy Rectal: no pain, no incontinence, no bleeding Musculoskeletal: no neck stiffness, no neck pain, no shooting arm pain, no arm numbness/tingling, no low back pain Integumentary: no pruritis, no redness, no sores, no wounds Neurological: no transient paralysis, no paralysis, no weakness, no parathesias, no numbness Psychiatric: no anxiety, no memory loss, no change in sleep habits, no sleep disturbances, no insomnia, no hypersomnia Endocrine: no cold intolerance, no heat intolerance, no polyphagia, no excessive thirst, no polydipsia, no polyuria Hematologic/Lymphatic: no easy bruising, no easy bleeding, no lymphadenopathy, no lymphedema Allergic/Immunologic: no urticaria, no allergic rhinitis, no wheezing, no persistent infections Exam - Constitutional Vitals: Temp Pulse Resp BP Pulse Ox 98.6 F 79 18 167/89 96 09/28/18 17:41 09/28/18 17:41 09/28/18 17:41 09/28/18 17:41 09/28/18 17:41 General appearance: Present: mild distress, obese - EENT Eyes: Present: PERRL ENT: hearing intact, clear oral mucosa - Neck Neck: Present: supple, normal ROM - Respiratory Respiratory: bilateral: diminished, rhonchi - Cardiovascular Heart Sounds: Present: S1 & S2. Absent: rub, click - Extremities Extremities: pulses symmetrical Extremity abnormal: edema Peripheral Pulses: within normal limits - Abdominal General gastrointestinal: Present: soft, distended, normal bowel sounds, hernia. Absent: hepatomegaly, splenomegaly Male genitourinary: Present: normal - Integumentary Integumentary: Present: clear, warm, dry - Musculoskeletal Musculoskeletal: generalized weakness - Psychiatric Psychiatric: appropriate mood/affect, intact judgment & insight - Neurologic Neurologic: CNII-XII intact, moves all extremities Results - Labs CBC & Chem 7: 09/28/18 17:53 09/28/18 17:53 Labs: Abnormal lab results 09/28/18 09/28/18 09/28/18 Range/Units 17:53 17:53 17:53 RBC 3.51 L (3.65-5.03) M/mm3 Hgb 10.0 L (11.8-15.2) gm/dl Hct 31.4 L (35.5-45.6) % RDW 21.6 H (13.2-15.2) % PT 16.3 H (12.2-14.9) Sec. INR 1.23 H (0.87-1.13) Potassium 5.6 H (3.6-5.0) mmol/L BUN 65 H (9-20) mg/dL Creatinine 12.3 H (0.8-1.5) mg/dL Glucose 123 H (75-100) mg/dL TSH (0.270-4.200) mlU/mL 09/28/18 Range/Units 17:53 RBC (3.65-5.03) M/mm3 Hgb (11.8-15.2) gm/dl Hct (35.5-45.6) % RDW (13.2-15.2) % PT (12.2-14.9) Sec. INR (0.87-1.13) Potassium (3.6-5.0) mmol/L BUN (9-20) mg/dL Creatinine (0.8-1.5) mg/dL Glucose (75-100) mg/dL TSH 6.080 H (0.270-4.200) mlU/mL Assessment and Plan - Patient Problems (1) ESRD (end stage renal disease) Current Visit: Yes Status: Acute Plan to address problem: Nephrology consulted for urgent dialysis, strict I/O, daily weight, renal diet, monitor uop q shift, avoid nephrotoxic agents. (2) Ascites Current Visit: Yes Status: Acute Qualifiers: Ascites type: other type Qualified Code(s): R18.8 - Other ascites Plan to address problem: IR consulted for therapeutic paracentesis, serial abdominal exam. (3) Hypertensive urgency Current Visit: Yes Status: Acute Plan to address problem: Monitor bp q shift, resume clonidine, IV hydralazine PRN, continue medical management. (4) Hyperkalemia Current Visit: No Status: Acute Plan to address problem: calcium gluconate, kayexelate, repeat bmp in am. No EKG changes. (5) SVT (supraventricular tachycardia) Current Visit: Yes Status: Acute Plan to address problem: Adenosine x 2 , Cardiology consulted in ED, (6) DVT prophylaxis Current Visit: Yes Status: Acute Plan to address problem: SCD to BLE while in bed, prophylactic heparin
[2018-09-28] MEDS ORDERED: ZOFRAN IV PRN (19:29)
[2018-09-28] MEDS ORDERED: TYLENOL PO PRN (19:29)
[2018-09-28] MEDS ORDERED: PERCOCET 5/325 PO PRN (19:29)
[2018-09-28] MEDS ORDERED: PROVENTIL IH PRN (19:29)
[2018-09-28] MEDS ORDERED: SODIUM CHLORIDE FLUSH SYRINGE 10 ML IV PRN (19:29)
[2018-09-28] MEDS ORDERED: CALCIUM GLUCONATE 1,000 MG in NACL 0.9% 100 ML IV ONE (19:30)
[2018-09-28] MEDS ORDERED: APRESOLINE IV PRN (19:31)
[2018-09-28] MEDS ORDERED: CATAPRES ONE (20:59)
[2018-09-28] MEDS ORDERED: CATAPRES PO SCH (22:00)
[2018-09-28] MEDS ORDERED: SODIUM CHLORIDE FLUSH SYRINGE 10 ML IV SCH (22:00)
[2018-09-28] MEDS ORDERED: NORVASC ONE (22:47)
[2018-09-28] MEDS ORDERED: PERCOCET 5/325 ONE (22:47)
--- NOTE | 2018-09-29 01:00 | Consultation ---
History of Present Illness Consult date: 09/29/18 Consult reason: other (SVT) History of present illness: 48 YO Male with ESRD on HD(T,R,Sa), HTN, PCKD, Cirrhosis, ESLD complicated by Ascites, Diastolic CHF, GERD, Nicotine Dependence presents to ED for evaluation. Pt states that he experienced a sudden onset of chest palpitations. EMS notified and upon arrival the patient was found to have SVT. Pt treated with Adenosine x 2 with resolution of symptoms. Pt transported to [facility]. Past History Past Medical History: ESRD, GERD, hypertension, other (PCKD, Cirrhosis,ESLD, ) Past Surgical History: hernia repair, Other (LUE AV Fistula) Social history: , lives with family. denies: smoking, alcohol abuse, prescription drug abuse Family history: hypertension Medications and Allergies Allergies Allergy/AdvReac Type Severity Reaction Status Date / Time tramadol [From Ultram] AdvReac Dizziness Verified 03/05/18 15:30 Home Medications Medication Instructions Recorded Confirmed Last Taken Type cloNIDine [Catapres] 0.2 mg PO BID #60 tablet 09/04/18 09/29/18 09/28/18 Rx Active Meds: Active Medications Acetaminophen (Tylenol) 650 mg PO Q4H PRN PRN Reason: Pain MILD(1-3)/Fever >100.5/SWAIN Albuterol (Proventil) 2.5 mg IH Q4HRT PRN PRN Reason: Shortness Of Breath Amlodipine Besylate (Norvasc) 10 mg PO QDAY@0800 [facility] Clonidine HCl (Catapres) 0.2 mg PO BID [facility] Last Admin: 09/28/18 21:30 Dose: 0.2 mg Documented by: Hydralazine HCl (Apresoline) 10 mg IV Q4HR PRN PRN Reason: Hypertension Hydralazine HCl (Apresoline) 100 mg PO TID [facility] Last Admin: 09/28/18 22:32 Dose: 100 mg Documented by: Ondansetron HCl (Zofran) 4 mg IV Q8H PRN PRN Reason: Nausea And Vomiting Oxycodone/Acetaminophen (Percocet 5/325) 1 tab PO Q6H PRN PRN Reason: Pain, Moderate (4-6) Last Admin: 09/28/18 22:33 Dose: 1 tab Documented by: Sodium Chloride (Sodium Chloride Flush Syringe 10 Ml) 10 ml IV BID [facility] Last Admin: 09/28/18 21:30 Dose: 10 ml Documented by: Sodium Chloride (Sodium Chloride Flush Syringe 10 Ml) 10 ml IV PRN PRN PRN Reason: LINE FLUSH Review of Systems All systems: negative (pertient positives mentioned in HPI) Physical Examination Vital Signs Pulse Resp Pulse Ox 79 16 93 09/28/18 17:37 09/28/18 17:37 09/28/18 17:37 General appearance: no acute distress HEENT: Positive: PERRL, EOMI Cardiac: Positive: Reg Rate and Rhythm Lungs: Positive: Decreased Breath Sounds, Rales Neuro: Positive: Grossly Intact Abdomen: Positive: Unremarkable Extremities: Present: edema Results 09/28/18 17:53 09/29/18 06:47 Coagulation 09/28/18 09/28/18 Range/Units 17:53 19:45 PT 16.3 H (12.2-14.9) Sec. INR 1.23 H (0.87-1.13) APTT 33.4 (24.2-36.6) Sec. CBC 09/28/18 Range/Units 17:53 WBC 6.1 (4.5-11.0) K/mm3 RBC 3.51 L (3.65-5.03) M/mm3 Hgb 10.0 L (11.8-15.2) gm/dl Hct 31.4 L (35.5-45.6) % Plt Count 181 (140-440) K/mm3 Comprehensive Metabolic Panel 09/28/18 Range/Units 17:53 Sodium 139 (137-145) mmol/L Potassium 5.6 H (3.6-5.0) mmol/L Chloride 99.0 (98-107) mmol/L Carbon Dioxide 24 (22-30) mmol/L BUN 65 H (9-20) mg/dL Creatinine 12.3 H (0.8-1.5) mg/dL Glucose 123 H (75-100) mg/dL Calcium 8.9 (8.4-10.2) mg/dL EKG interpretations - Telemetry EKG Rhythm: Sinus Rhythm Assessment and Plan (1) ESRD (end stage renal disease) Nephrology consulted (2) Ascites IR consulted for therapeutic paracentesis, serial abdominal exam. (3) Hypertensive urgency Maximize antihypertensive therapy (4) Hyperkalemia adjustment per nephrology (5) SVT (supraventricular tachycardia) occurring secondary to metabolic derangements in the setting of mutliple medical problems including ESRD TSH and FT4 WNL Correct electrolytes AV satish lexy as blood pressure will allow echo pending Recommend ischemic evaluation
[2018-09-29] MEDS ORDERED: NORVASC PO SCH ×2 (08:00→22:26)
[2018-09-29] MEDS ORDERED: LOPRESSOR PO SCH (10:00)
[2018-09-29] MEDS ORDERED: KIONEX PO ONE (13:00)
--- NOTE | 2018-09-29 13:45 | Progress Note ---
Assessment and Plan (1) ESRD (end stage renal disease) Current Visit: Yes Status: Acute Plan to address problem: Nephrology consulted for urgent dialysis, cont strict I/O, daily weight, renal diet, avoid nephrotoxic agents. (2) Ascites Current Visit: Yes Status: Acute Qualifiers: Ascites type: other type Qualified Code(s): R18.8 - Other ascites Plan to address problem: IR consulted for therapeutic paracentesis, (3) Hypertensive urgency Current Visit: Yes Status: Acute Plan to address problem: Monitor bp q shift, resumed clonidine, IV hydralazine PRN, continue medical management. (4) Hyperkalemia Current Visit: No Status: Acute Plan to address problem: s/p calcium gluconate, kayexelate, Resolved (5) SVT (supraventricular tachycardia) Current Visit: Yes Status: Acute Plan to address problem: Adenosine x 2 , Cardiology consulted in ED, Now resolved, NSR now Likely occurring secondary to metabolic derangements in the setting of mutliple medical problems including ESRD TSH and FT4 WNL ordered echo, cardiology Recommend ischemic evaluation (6) DVT prophylaxis Current Visit: Yes Status: Acute Plan to address problem: SCD to BLE while in bed, prophylactic heparin Subjective Date of service: 09/29/18 Interval history: Patient seen and examined denies any chest pain, tolerating diet plan for paracentesis today Objective - Constitutional Vitals: Vital Signs - 12hr 09/29/18 09/29/18 09/29/18 04:29 08:08 08:09 Temperature 98.0 F 97.9 F Pulse Rate 65 64 Pulse Rate [ Apical] Respiratory 18 18 Rate Blood Pressure 177/99 180/89 O2 Sat by Pulse 96 94 Oximetry 09/29/18 09/29/18 09/29/18 08:51 08:55 09:08 Temperature 97.9 F Pulse Rate 66 61 Pulse Rate [ 74 Apical] Respiratory 18 18 Rate Blood Pressure 195/101 189/96 O2 Sat by Pulse 99 Oximetry 09/29/18 09/29/18 09/29/18 09:11 09:15 09:30 Temperature Pulse Rate 64 64 Pulse Rate [ Apical] Respiratory Rate Blood Pressure 197/111 184/113 O2 Sat by Pulse 95 Oximetry 09/29/18 09/29/18 09/29/18 09:45 10:00 10:15 Temperature Pulse Rate 64 64 65 Pulse Rate [ Apical] Respiratory Rate Blood Pressure 196/107 185/94 195/99 O2 Sat by Pulse Oximetry 09/29/18 09/29/18 09/29/18 10:30 10:45 11:00 Temperature Pulse Rate 62 65 64 Pulse Rate [ Apical] Respiratory Rate Blood Pressure 193/106 183/108 192/104 O2 Sat by Pulse Oximetry 09/29/18 09/29/18 09/29/18 11:15 11:30 11:45 Temperature Pulse Rate 66 64 66 Pulse Rate [ Apical] Respiratory Rate Blood Pressure 189/102 198/108 192/99 O2 Sat by Pulse Oximetry 09/29/18 09/29/18 12:00 12:48 Temperature Pulse Rate 65 66 Pulse Rate [ Apical] Respiratory Rate Blood Pressure 190/105 192/99 O2 Sat by Pulse Oximetry General appearance: Present: no acute distress, well-nourished - EENT Eyes: PERRL, EOM intact ENT: hearing intact, clear oral mucosa Ears: bilateral: normal - Neck Neck: supple, normal ROM - Respiratory Respiratory effort: normal Respiratory: bilateral: CTA - Cardiovascular Rhythm: regular Heart Sounds: Present: S1 & S2. Absent: gallop, rub Extremities: pulses intact, No edema, normal color, Full ROM - Gastrointestinal General gastrointestinal: Present: soft, non-tender, distended, normal bowel sounds - Integumentary Integumentary: clear, warm, dry - Musculoskeletal Musculoskeletal: 1, strength equal bilaterally - Neurologic Neurologic: moves all extremities - Psychiatric Psychiatric: memory intact, appropriate mood/affect, intact judgment & insight - Labs CBC & Chem 7: 09/28/18 17:53 09/29/18 06:47 Labs: Abnormal lab results 09/28/18 09/28/18 09/28/18 Range/Units 17:53 17:53 17:53 RBC 3.51 L (3.65-5.03) M/mm3 Hgb 10.0 L (11.8-15.2) gm/dl Hct 31.4 L (35.5-45.6) % RDW 21.6 H (13.2-15.2) % PT 16.3 H (12.2-14.9) Sec. INR 1.23 H (0.87-1.13) Potassium 5.6 H (3.6-5.0) mmol/L Chloride (98-107) mmol/L BUN 65 H (9-20) mg/dL Creatinine 12.3 H (0.8-1.5) mg/dL Glucose 123 H (75-100) mg/dL TSH (0.270-4.200) mlU/mL 09/28/18 09/29/18 Range/Units 17:53 06:47 RBC (3.65-5.03) M/mm3 Hgb (11.8-15.2) gm/dl Hct (35.5-45.6) % RDW (13.2-15.2) % PT (12.2-14.9) Sec. INR (0.87-1.13) Potassium 5.9 H (3.6-5.0) mmol/L Chloride 95.8 L (98-107) mmol/L BUN 69 H (9-20) mg/dL Creatinine 12.8 H (0.8-1.5) mg/dL Glucose (75-100) mg/dL TSH 6.080 H (0.270-4.200) mlU/mL - Imaging and cardiology Chest x-ray: report reviewed
[2018-09-29] MEDS ORDERED: CATAPRES PO SCH (14:00)
[2018-09-29 16:14] VITALS: BP 185/94
--- NOTE | 2018-09-29 16:55 | Consultation ---
History of Present Illness - Reason for Consult end stage renal disease - History of Present Illness 48 year old with medical history significant for polycystic kidney disease, recurrent ascites, end-stage renal disease on hemodialysis Monday presenting with complaints of shortness of breath. He reports last dialysis was denies any orthopnea PND denies any abdominal pain fever or chills denies any orthopnea or PND he has had recurrent ascites and was told it was from his kidneys has also had significant extremity edema for several years and isn't sure why he uses that he only requires dialysis for 3 hours as he feels bad after 3 hours Past History Past Medical History: ESRD, GERD, hypertension, other (PCKD, Cirrhosis,ESLD, ) Past Surgical History: hernia repair, Other (LUE AV Fistula) Social history: , lives with family. denies: smoking, alcohol abuse, prescription drug abuse Family history: hypertension Medications and Allergies Allergies Allergy/AdvReac Type Severity Reaction Status Date / Time tramadol [From Ultram] AdvReac Dizziness Verified 03/05/18 15:30 Home Medications Medication Instructions Recorded Confirmed Last Taken Type cloNIDine [Catapres] 0.2 mg PO BID #60 tablet 09/04/18 09/29/18 09/28/18 Rx Active Meds: Active Medications Acetaminophen (Tylenol) 650 mg PO Q4H PRN PRN Reason: Pain MILD(1-3)/Fever >100.5/SWAIN Albuterol (Proventil) 2.5 mg IH Q4HRT PRN PRN Reason: Shortness Of Breath Amlodipine Besylate (Norvasc) 10 mg PO QDAY@0800 [facility] Clonidine HCl (Catapres) 0.2 mg PO Q8HR [facility] Hydralazine HCl (Apresoline) 10 mg IV Q4HR PRN PRN Reason: Hypertension Hydralazine HCl (Apresoline) 100 mg PO TID [facility] Last Admin: 09/28/18 22:32 Dose: 100 mg Documented by: Metoprolol Tartrate (Lopressor) 12.5 mg PO BID [facility] Ondansetron HCl (Zofran) 4 mg IV Q8H PRN PRN Reason: Nausea And Vomiting Oxycodone/Acetaminophen (Percocet 5/325) 1 tab PO Q6H PRN PRN Reason: Pain, Moderate (4-6) Last Admin: 09/28/18 22:33 Dose: 1 tab Documented by: Sodium Chloride (Sodium Chloride Flush Syringe 10 Ml) 10 ml IV BID [facility] Last Admin: 09/28/18 21:30 Dose: 10 ml Documented by: Sodium Chloride (Sodium Chloride Flush Syringe 10 Ml) 10 ml IV PRN PRN PRN Reason: LINE FLUSH Review of Systems Constitutional: weight gain, no fever, no chills Ears, nose, mouth and throat: no ear pain, no ear discharge Cardiovascular: edema, shortness of breath, no chest pain, no rapid/irregular heart beat Respiratory: no cough, no cough with sputum Gastrointestinal: abdominal pain, no coffee ground emesis, no excessive gas Genitourinary Male: no dysuria, no hematuria Musculoskeletal: redness of joints, no neck stiffness, no neck pain Integumentary: darkening of skin, depigmentation, color changes Neurological: no head injury, no transient paralysis Exam - Vital Signs Vital signs: Vital Signs Pulse Resp Pulse Ox 79 16 93 09/28/18 17:37 09/28/18 17:37 09/28/18 17:37 - General Appearance General appearance: well-developed, well-nourished EENT: ATNC, PERRL, mucous membranes moist Neck: Present: neck supple Respiratory: Clear to Ascultation Heart: regular, S1S2 Gastrointestinal: Present: normal, normoactive bowel sounds Integumentary: no rash Neurologic: alert and oriented x3, CN 3-12 intact Psychiatric: mood/affect appropriate Results - Lab Results 09/28/18 17:53 09/29/18 06:47 Most recent lab results Calcium 9.0 mg/dL (8.4-10.2) 09/29/18 06:47 - Image Kidney/bladder ultrasound: image reviewed (I reviewed chest x-ray with some patchy opacities mild congestion) Assessment and Plan - Patient Problems (1) ESRD (end stage renal disease) Current Visit: Yes Status: Acute Plan to address problem: ESRD will initiate dialysis Ultrafiltration 3 L Access aVF (2) Hx of supraventricular tachycardia Current Visit: Yes Status: Acute Plan to address problem: History of SVT received adenosine (3) Hyperkalemia Current Visit: Yes Status: Acute Plan to address problem: Hyperkalemic with renal failure will initiate dialysis (4) Acute on chronic combined systolic and diastolic congestive heart failure Current Visit: No Status: Acute Plan to address problem: Acute and chronic diastolic congestive heart. I reviewed echocardiogram with reduced ejection fraction 35-40% with dilated ventricles and moderate pulmonary hypertension (5) Lower extremity edema Current Visit: No Status: Acute Plan to address problem: Lower extremity edema in setting of congestive heart failure and possible venous/lymphatic obstruction given a large kidneys consistent with polycystic kidney
[2018-09-29] MEDS ORDERED: APRESOLINE PO SCH ×2 (17:00→22:26)
[2018-09-30] MEDS ORDERED: NORVASC PO SCH (08:00)
== END 2018-09-29 17:06 | disposition left against medical advice (07) | DRG 291 ==
LOC: ED 17:31 → 4A 19:29
PROVIDERS: ADMIT Internal Medicine; ATTEND Internal Medicine
PROC: 5A1D70Z Performance of Urinary Filtration, Intermittent, Less than 6 Hours Per Day (ICD-10-PCS; principal; 2018-09-29)
DX: I13.2 Hypertensive heart and chronic kidney disease with heart failure and with stage 5 chronic kidney disease, or end stage renal disease (principal); N18.6 End stage renal disease; I50.43 Acute on chronic combined systolic (congestive) and diastolic (congestive) heart failure; I47.1 Supraventricular tachycardia; R18.8 Other ascites; I42.9 Cardiomyopathy, unspecified; I12.0 Hypertensive chronic kidney disease with stage 5 chronic kidney disease or end stage renal disease; I16.0 Hypertensive urgency; E87.5 Hyperkalemia; K74.60 Unspecified cirrhosis of liver; E03.9 Hypothyroidism, unspecified; K21.9 Gastro-esophageal reflux disease without esophagitis; K72.90 Hepatic failure, unspecified without coma; F17.210 Nicotine dependence, cigarettes, uncomplicated; Z99.2 Dependence on renal dialysis; Z53.21 Procedure and treatment not carried out due to patient leaving prior to being seen by health care provider
CPT/HCPCS: 36415; 71045; 80048; 84443; 85027; 85610; 85730; 93005; 93010; 96365; 96375; G0378; J0360; J0610; J1815

== ENCOUNTER 2018-10-07 21:26 | Inpatient (IN) | payer MEDICARE ==
--- NOTE | 2018-10-07 21:50 | Emergency Department Report ---
ED Shortness of Breath HPI - General Chief Complaint: Dyspnea/Respdistress Stated Complaint: ABD PAIN Time Seen by Provider: 10/07/18 21:34 Source: EMS, old records reviewed Mode of arrival: Stretcher Limitations: No Limitations - History of Present Illness Initial Comments: 48-year-old male with a past medical history of end-stage disease on dialysis T , , and Monday, liver cirrhosis with recurrent ascites requiring paracentesis, hypertension, and anemia of chronic disease presents to the hospital with complains of shortness of breath, abdominal distention due to fluid, and abdominal pressure causing pressure in his chest. Patient has not received dialysis in one week because he took a trip via car to [place] in [place]. He denies pleuritic chest pain, unilateral leg edema, or calf tenderness. He states that his legs tight and full of fluid. Upon previous medical record review patient had paracentesis performed twice in August and was recently admitted here this month discharge about September 29 after admission for hypertension, SVT, hyperkalemia, and ascites. Discharge summary not available for review for this last admission. Patient states he does have some urine output. 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 - Related Data Previous Rx's Medication Instructions Recorded Last Taken Type cloNIDine [Catapres] 0.2 mg PO BID #60 tablet 09/04/18 09/28/18 Rx Allergies Allergy/AdvReac Type Severity Reaction Status Date / Time tramadol [From Ultram] AdvReac Dizziness Verified 03/05/18 15:30 ED Review of Systems ROS: Stated complaint: ABD PAIN Other details as noted in HPI Comment: All other systems reviewed and negative ED Past Medical Hx - Past Medical History Previous Medical History?: Yes Hx Hypertension: Yes Hx CVA: No Hx Heart Attack/AMI: No Hx Congestive Heart Failure: Yes (diastolic - CHRONIC , CARDIOMYOPATHY) Hx Diabetes: No Hx Deep Vein Thrombosis: No Hx Pulmonary Embolism: No Hx GERD: Yes Hx Liver Disease: No Hx Renal Disease: Yes (ESRD, dialysis , Mon) Hx Sickle Cell Disease: No Hx Arthritis: No Hx Headaches / Migraines: No Hx Seizures: No Hx Kidney Stones: No Hx Psychiatric Treatment: No Hx Asthma: No Hx COPD: No Hx Tuberculosis: No Hx Dementia: No Hx HIV: No Additional medical history: Abdominal Hernias, right groin hernia, - Surgical History Hx Coronary Stent: No Hx Open Heart Surgery: No Hx Pacemaker: No Hx Internal Defibrillator: No Hx Cholecystectomy: No Hx Appendectomy: No Hx Breast Surgery: No Additional Surgical History: dialysis access left arm, groin hernia repair, - Social History Smoking Status: Never Smoker - Medications Home Medications: Home Medications Medication Instructions Recorded Confirmed Last Taken Type cloNIDine [Catapres] 0.2 mg PO BID #60 tablet 09/04/18 09/29/18 09/28/18 Rx ED Physical Exam - General Limitations: No Limitations - Other Other exam information: General: No limitations, patient is alert in no acute distress Head exam: Atraumatic, normocephalic Eyes exam: Normal appearance, pupils equal reactive to light, extraocular movements intact ENT: Moist mucous membrane, normal oropharynx Neck exam: Normal inspection, full range of motion, no meningismus nontender Respiratory exam: Tachypnea, no rales or wheezes. Cardiovascular: Regular rate and rhythm Abdomen: Distended and firm abdomen diffusely tender without rebound or guarding. Decreased bowel sounds. Extremity: Bilateral lower extremity edema, pitting, symmetrical Back: Normal Inspection Neurologic: Alert, oriented x3, cranial nerves intact, no motor or sensory deficit Psychiatric: normal affect, normal mood Skin: Papular rash to lower extremities ED Course Vital Signs 10/07/18 10/07/18 10/07/18 21:41 21:45 22:02 Temperature 97.9 F 97.9 F Pulse Rate 61 61 Pulse Rate [ Anterior Bilateral Upper Lobe] Respiratory 16 10 L 20 Rate Respiratory Rate [Anterior Bilateral Upper Lobe] Blood Pressure 156/94 Blood Pressure 159/94 [Right] O2 Sat by Pulse 100 100 98 Oximetry 10/07/18 10/07/18 22:13 23:45 Temperature Pulse Rate Pulse Rate [ 58 L 55 L Anterior Bilateral Upper Lobe] Respiratory Rate Respiratory 16 18 Rate [Anterior Bilateral Upper Lobe] Blood Pressure Blood Pressure [Right] O2 Sat by Pulse Oximetry - Reevaluation(s) Reevaluation #1: 10/07/18 22:00 EKG reviews new junctional rhythm, right bundle branch block, and left posterior fascicular block. These were not present on previous EKG. I'm highly suspicious for hyperkalemia. Initial treatment with albuterol, insulin, glucose, calcium gluconate, sodium bicarbonate and Lasix ordered while potassium level pending ED Medical Decision Making - Lab Data Result diagrams: 10/07/18 22:18 10/07/18 22:18 Lab Results 10/07/18 10/07/18 10/07/18 Range/Units 22:18 22:18 22:18 WBC 5.9 (4.5-11.0) K/mm3 RBC 3.70 (3.65-5.03) M/mm3 Hgb 10.7 L (11.8-15.2) gm/dl Hct 33.6 L (35.5-45.6) % MCV 91 (84-94) fl MCH 29 (28-32) pg MCHC 32 (32-34) % RDW 20.7 H (13.2-15.2) % Plt Count 163 (140-440) K/mm3 Lymph % (Auto) 16.6 (13.4-35.0) % Hall % (Auto) 13.7 H (0.0-7.3) % Eos % (Auto) 0.8 (0.0-4.3) % Baso % (Auto) 0.9 (0.0-1.8) % Lymph # 1.0 L (1.2-5.4) K/mm3 Hall # 0.8 (0.0-0.8) K/mm3 Eos # 0.0 (0.0-0.4) K/mm3 Baso # 0.1 (0.0-0.1) K/mm3 Seg Neutrophils % 68.0 (40.0-70.0) % Seg Neutrophils # 4.0 (1.8-7.7) K/mm3 PT 16.8 H (12.2-14.9) Sec. INR 1.28 H (0.87-1.13) APTT 29.3 (24.2-36.6) Sec. Sodium 137 (137-145) mmol/L Potassium 7.9 H* (3.6-5.0) mmol/L Chloride 95.6 L (98-107) mmol/L Carbon Dioxide 18 L (22-30) mmol/L Anion Gap 31 mmol/L BUN 99 H (9-20) mg/dL Creatinine 16.0 H (0.8-1.5) mg/dL Estimated GFR 4 ml/min BUN/Creatinine Ratio 6 % Glucose 102 H (75-100) mg/dL POC Glucose (70-105) Calcium 8.5 (8.4-10.2) mg/dL Total Bilirubin 0.50 (0.1-1.2) mg/dL AST 16 (5-40) units/L ALT 13 (7-56) units/L Alkaline Phosphatase 76 (35-129) units/L Troponin T (0.00-0.029) ng/mL Total Protein 7.1 (6.3-8.2) g/dL Albumin 3.7 L (3.9-5) g/dL Albumin/Globulin Ratio 1.1 % Lipase 29 (13-60) units/L 10/07/18 10/07/18 Range/Units 22:18 22:25 WBC (4.5-11.0) K/mm3 RBC (3.65-5.03) M/mm3 Hgb (11.8-15.2) gm/dl Hct (35.5-45.6) % MCV (84-94) fl MCH (28-32) pg MCHC (32-34) % RDW (13.2-15.2) % Plt Count (140-440) K/mm3 Lymph % (Auto) (13.4-35.0) % Hall % (Auto) (0.0-7.3) % Eos % (Auto) (0.0-4.3) % Baso % (Auto) (0.0-1.8) % Lymph # (1.2-5.4) K/mm3 Hall # (0.0-0.8) K/mm3 Eos # (0.0-0.4) K/mm3 Baso # (0.0-0.1) K/mm3 Seg Neutrophils % (40.0-70.0) % Seg Neutrophils # (1.8-7.7) K/mm3 PT (12.2-14.9) Sec. INR (0.87-1.13) APTT (24.2-36.6) Sec. Sodium (137-145) mmol/L Potassium (3.6-5.0) mmol/L Chloride (98-107) mmol/L Carbon Dioxide (22-30) mmol/L Anion Gap mmol/L BUN (9-20) mg/dL Creatinine (0.8-1.5) mg/dL Estimated GFR ml/min BUN/Creatinine Ratio % Glucose (75-100) mg/dL POC Glucose 90 (70-105) Calcium (8.4-10.2) mg/dL Total Bilirubin (0.1-1.2) mg/dL AST (5-40) units/L ALT (7-56) units/L Alkaline Phosphatase (35-129) units/L Troponin T 0.818 H* (0.00-0.029) ng/mL Total Protein (6.3-8.2) g/dL Albumin (3.9-5) g/dL Albumin/Globulin Ratio % Lipase (13-60) units/L - EKG Data -: EKG Interpreted by Me (junctional rhythm, right bundle branch block, and left posterior fascicular) EKG shows normal: axis (qrs 178) - EKG Data When compared to previous EKG there are: changes noted - Radiology Data Radiology results: report reviewed PROCEDURE: XR CHEST 1V AP TECHNIQUE: Chest radiograph single view. HISTORY: sob COMPARISONS: September 28, 2018 . FINDINGS: Heart: The heart size is prominent but stable. Mediastinum/Vessels: Normal. Lungs/Pleural space: Normal. Bony thorax: No acute osseous abnormality. Life support devices: None. IMPRESSION: There is no evidence of an acute cardiopulmonary process. Mild stable cardiomegaly. - Medical Decision Making pt refuses lasix and Kayexalate pt received other meds for hyperkalemia ersd needing stat dialysis due to noncompliance hyperkalemia with ekg changes dr Smith consulted and will arrange for emergency dialysis. He did come to the ER to evaluate patient in person hospitalist informed of admission - Differential Diagnosis chf, mi, ascites, hyperkalemia Critical Care Time: Yes Critical care time in (mins) excluding proc time.: 35 Critical care attestation.: If time is entered above; I have spent that time in minutes in the direct care of this critically ill patient, excluding procedure time. ED Disposition Clinical Impression: Hyperkalemia, ESRD needing dialysis, Dialysis patient, noncompliant, Acute electrocardiogram changes Ascites Qualifiers: Ascites type: other type Qualified Code(s): R18.8 - Other ascites Disposition: -09 OP ADMIT IP TO THIS HOSP Is pt being admited?: Yes Condition: Stable Time of Disposition: 23:53 (Dr Smith/hosp)
[2018-10-07] MEDS ORDERED: CALCIUM GLUCONATE 1,000 MG in NACL 0.9% 100 ML IV ONE ×2 (22:00→23:42)
[2018-10-07] MEDS ORDERED: PROVENTIL IH ONE (22:00)
[2018-10-07] MEDS ORDERED: HumuLIN R IV ONE (22:20)
[2018-10-07] MEDS ORDERED: D50W (25GM) Vial IV ONE (22:20)
[2018-10-07] MEDS ORDERED: LASIX IV ONE (22:21)
[2018-10-07 22:44] LABS: Basophils # (Auto) 0.1 K/mm3 (0.0-0.1); Basophils % (Auto) 0.9 % (0.0-1.8); Eosinophils % (Auto) 0.8 % (0.0-4.3); Hematocrit 33.6 % (35.5-45.6); Hemoglobin 10.7 gm/dl (11.8-15.2); Lymphocytes % (Auto) 16.6 % (13.4-35.0); Mean Corpuscular HGB Conc 32 % (32-34); Mean Corpuscular Volume 91 fl (84-94); Monocytes # (Auto) 0.8 K/mm3 (0.0-0.8); Monocytes % (Auto) 13.7 % (0.0-7.3); Platelet Count 163 K/mm3 (140-440)
[2018-10-07 22:46] LABS: INR 1.28 (0.87-1.13); Red Cell Distribution Width 20.7 % (13.2-15.2)
[2018-10-07 22:47] LABS: Partial Thromboplastin Time 29.3 Sec. (24.2-36.6)
[2018-10-07 23:02] LABS: Albumin 3.7 g/dL (3.9-5); Calcium 8.5 mg/dL (8.4-10.2)
[2018-10-07] MEDS ORDERED: KIONEX PO ONE (23:33)
--- NOTE | 2018-10-07 23:39 | XRay Report ---
PROCEDURE: XR CHEST 1V AP TECHNIQUE: Chest radiograph single view. HISTORY: sob COMPARISONS: September 28, 2018 . FINDINGS: Heart: The heart size is prominent but stable. Mediastinum/Vessels: Normal. Lungs/Pleural space: Normal. Bony thorax: No acute osseous abnormality. Life support devices: None. IMPRESSION: There is no evidence of an acute cardiopulmonary process. Mild stable cardiomegaly. This document is electronically signed by Samantha Youngblood DO., Oct 07 2018 11:37:39 PM ET
[2018-10-07] MEDS ORDERED: KIONEX PR ONE (23:43)
[2018-10-07] MEDS ORDERED: NACL 0.9% 100 ML IV PRN (23:43)
--- NOTE | 2018-10-07 23:47 | Consultation ---
History of Present Illness - History of Present Illness Thank you for the consultation ! Patient was evaluated today My assessment and plan are as follows; End-stage renal disease: Patient is currently on hemodialysis, and Has been admi tted with EKG changes of hyperkalemia, missing dialysis treatment for 1 week severe hyperkalemia severe fluid overload Stat hemodialysis was ordered/an extremely noncompliant Anemia and end-stage renal disease: Monitor hemoglobin and hematocrit erythropoietin as needed. Workup as required Secondary hyperparathyroidism: Check phosphorus and PTH level periodically, binders as needed Dialysis access: Currently working well Malnutrition risk: High consider high-protein diet dietitian evaluation and follow-up in general 1.5 g protein per KG body weight Fluid restriction: 1200 cc per day not to exceed more than that Adequately counseled and educated about other hospital related issues as well Labs were discussed with patient and simple [place] Patient does appear to have good understanding of all the dialysis related issues Patient was adequately counseled and educated regarding multiple renal related issues. He was extremely rude to me in the emergency room, and told me that I was going to dialyze him for no reason Patient has been extensively counseled and educated at length but he did not want to listen to m He was also refusing medication to the nurse Patient is high risk in terms of mortality, and this has been clearly explained to him He is essentially dictating his care which is unfrtunate All renal related questions were answered and simple [place] pertinent lab studies as well as imaging results were also discussed with patient We will continue to follow and make recommendations from renal standpoint. Thank you for the consultation Author: Chan Smith M.D. [facility], [address] [place] [address] Tel; [phone] Source of information: From patient History of present illness Patient is a 48-year-old very noncompliant -[place] male came to the hospital with complaints of increasing abdominal distention and swelling, patient has also not been doing his dialysis likely should this time he has m issed nearly 1 week of dialysis when when I asked him how did he missed 1 week use of the toes on vacation. He also told me that sometimes he misses up to 6 weeks and nothing happens. When I told him that he is an emergent need for hemodialysis patient said that you trying to find an excuse to dialyze me I just came here to get my fluid off my belly he was also very upset about hearing that he is going to need stat dialysis, patient was also refusing Kayexalate saying that it makes him constipated, is also refusing medication to the nurse He was noted to have severe hyperkalemia for which he was ordered to receive the medication through the ER physician due to EKG abnormalities Patient is extremely noncompliant and he was extremely rude to me in the emergency room and presence of the nurse Past medical history significant for End-stage renal disease Chronic noncompliance Anemia and end-stage renal disease Secondary hyperparathyroidism Recurrent ascites Current allergies: Tramadol Present and home medication reviewed Social history family history reviewed Review of system: Increasing swelling generalized all the way up to the abdomen including extremities with fluid blisters Missing dialysis according to patient for last 1 week this time there is no way to confirm this however Physical examination Vitals: Reviewed General: No acute distress HEENT: Oral mucosa moist no pallor or icterus, Uremic odor Neck: Supple without any JVD thyromegaly or nodular mass Chest, Bilateral crackles diminished breath sounds Heart: Regular rate and rhythm S1-S2 heard no S3-S4 Abdomen: Soft nontender, bowel sounds present no renal bruit no suprapubic masses no CVA tenderness noted Markedly distended abdomen, dull flanks Extremity:More than 2-3+ swelling, Both lower extremity fluid blisters severe edema Endocrine: Thyroid not enlarged Psychiatric: No agitation and aggression noted Musculoskeletal: No joint effusion noted Labs and x-rays: Reviewed from this admission Medications and Allergies Allergies Allergy/AdvReac Type Severity Reaction Status Date / Time tramadol [From Ultram] AdvReac Dizziness Verified 03/05/18 15:30 Home Medications Medication Instructions Recorded Confirmed Last Taken Type cloNIDine [Catapres] 0.2 mg PO BID #60 tablet 09/04/18 10/08/18 10/07/18 Rx Active Meds: Active Medications Calcium Gluconate 1,000 mg/ (Sodium Chloride) 110 mls @ 660 mls/hr IV ONCE ONE Stop: 10/07/18 23:51 Sodium Chloride (Nacl 0.9%) 100 mls @ 999 mls/hr IV JULIA PRN PRN Reason: Hypotension Exam - Vital Signs Vital signs: Vital Signs Temp Pulse Resp BP Pulse Ox 97.9 F 61 16 159/94 100 10/07/18 21:41 10/07/18 21:41 10/07/18 21:41 10/07/18 21:41 10/07/18 21:41 Results - Lab Results 10/07/18 22:18 10/08/18 09:04 Most recent lab results Calcium 8.5 mg/dL (8.4-10.2) 10/07/18 22:18
--- NOTE | 2018-10-07 23:47 | Event Note ---
Called by the emergency room regarding this noncompliant patient Came in after missing one week of dialysis Discussed with Dr Anthony Moise complaint , high mortality risk patient Missing dialysis Ab EKG , Discussed with emergency room physician patient need stat dialysis Discussed about hyperkalemia management with emergency room I'm going to see this patient tonight Will need stat HD stat ordered , recieving hyperkalemia meds
[2018-10-07 23:52] LABS: Chol/HDL Ratio 3.14 %
[2018-10-08] MEDS ORDERED: PROVENTIL IH PRN (00:17)
[2018-10-08] MEDS ORDERED: ZOFRAN IV PRN (00:18)
[2018-10-08] MEDS ORDERED: TYLENOL PO PRN (00:19)
--- NOTE | 2018-10-08 07:52 | Progress Note ---
Assessment and Plan Assessment and plan: Patient is a 48 yo man with a history of hypertension, CHF EF 30-35%, NSVT, CMP, chronically elevated troponins, GERD, PKD, ESRD on TTh, hypothyroidism, AOCD, Dilated CMP, chronic anemia, recurrent ascities requiring frequent paracentesis, left AMA from here on 07/23/18 after 3.5 liters drained during paracentesis and 3-3.5 liters removed during HD. He returned on 08/06/18 with similar complaints who presents now on 10/06/18 with increasing SOB and abdominal swelling (same as prior admissions). He missed hemodialysis session x 1 week. He went out of town and didn't arrange hemodialysis there. He was found to have potassium of 7.9 with new EKG changes * pCXR shows no acute process, mild stable cardiomegaly [place] Hypertension, HR 64: use iv hydralazine prn Chronic normocytic anemia; EPO with HD Hyperkalemia, K 7.9 with EKG changes (junctional rhythm): treat with emergent HD, he refused kayexalate and lasix, received iv calcium, insulin and albuterol ESRD: needing HD, Nephrology consulted Elevated troponin, higher than baseline: repeat levels, consult Cardiology proBNP 70,000, suspected Acute on chronic combined heart failure: treat with ultrafiltration Right leg anterior griffin quarter size erosion, Left griffin nickel size erosin, bilateral leg papules nodules anterior griffin: wound care consult Noncompliance: extensive counseling and warning of the risk Ascities, with Chronic Liver disease due to congestive hepatology: consult GI, Hypothyroidism, elevated TSH: check free T4, need home meds to be reconciled, home med not entered for reconciliation: placed communication order for Rn to collect DVT ppx full code CCT 35 minutes with prolonged inpatient services History Interval history: Patient was seen and examined. Follow-up on current diagnosis ESRD, hyperkalemia, ascites. No overnight events reported to me. Patient denies any chest pain, shortness breath, nausea/vomiting or severe headaches. Imaging, nursing note, chart, labs and old chart reviewed. Discussed with patient. Gen: chronic disable appearing, NAD, Awake, Alert, Orientated HEENT: NCAT, EOMI, PERRL, OP Clear Neck: supple, no adenopathy, no thyromegaly, no JVD CVS/Heart: RRR, normal S1S2, pulses present bilaterally Chest/Lungs: diminished bs bilaterally, Symmetrical chest expansion, good air entry bilaterally GI/Abdomen: distened, good bowel sounds, no guarding or rebound /Bladder: no suprapubic tenderness, no CVA or paraspinal tenderness Extermity/Skin: gen edema, skin wound see admission photos MSK: FROM x 4 Neuro: CN 2-12 grossly intact, no new focal deficits Psych: calm Hospitalist Physical - Constitutional Vitals: Temp Pulse Resp BP Pulse Ox 97.7 F 64 18 196/103 99 10/08/18 06:45 10/08/18 06:45 10/08/18 06:45 10/08/18 06:45 10/08/18 06:45 Results - Labs CBC & Chem 7: 10/07/18 22:18 10/07/18 22:18 Labs: Laboratory Last Values WBC 5.9 K/mm3 (4.5-11.0) 10/07/18 22:18 RBC 3.70 M/mm3 (3.65-5.03) 10/07/18 22:18 Hgb 10.7 gm/dl (11.8-15.2) L 10/07/18 22:18 Hct 33.6 % (35.5-45.6) L 10/07/18 22:18 MCV 91 fl (84-94) 10/07/18 22:18 MCH 29 pg (28-32) 10/07/18 22:18 MCHC 32 % (32-34) 10/07/18 22:18 RDW 20.7 % (13.2-15.2) H 10/07/18 22:18 Plt Count 163 K/mm3 (140-440) 10/07/18 22:18 Lymph % (Auto) 16.6 % (13.4-35.0) 10/07/18 22:18 [place] % (Auto) 13.7 % (0.0-7.3) H 10/07/18 22:18 Eos % (Auto) 0.8 % (0.0-4.3) 10/07/18 22:18 Baso % (Auto) 0.9 % (0.0-1.8) 10/07/18 22:18 Lymph # 1.0 K/mm3 (1.2-5.4) L 10/07/18 22:18 [place] # 0.8 K/mm3 (0.0-0.8) 10/07/18 22:18 Eos # 0.0 K/mm3 (0.0-0.4) 10/07/18 22:18 Baso # 0.1 K/mm3 (0.0-0.1) 10/07/18 22:18 Seg Neutrophils % 68.0 % (40.0-70.0) 10/07/18 22:18 Seg Neutrophils # 4.0 K/mm3 (1.8-7.7) 10/07/18 22:18 PT 16.8 Sec. (12.2-14.9) H 10/07/18 22:18 INR 1.28 (0.87-1.13) H 10/07/18 22:18 APTT 29.3 Sec. (24.2-36.6) 10/07/18 22:18 Sodium 137 mmol/L (137-145) 10/07/18 22:18 Potassium 7.9 mmol/L (3.6-5.0) H* 10/07/18 22:18 Chloride 95.6 mmol/L (98-107) L 10/07/18 22:18 Carbon Dioxide 18 mmol/L (22-30) L 10/07/18 22:18 31 mmol/L 10/07/18 22:18 BUN 99 mg/dL (9-20) H 10/07/18 22:18 16.0 mg/dL (0.8-1.5) H 10/07/18 22:18 Estimated GFR 4 ml/min 10/07/18 22:18 6 % 10/07/18 22:18 Glucose 102 mg/dL (75-100) H 10/07/18 22:18 POC Glucose 102 (70-105) 10/08/18 03:17 Calcium 8.5 mg/dL (8.4-10.2) 10/07/18 22:18 0.50 mg/dL (0.1-1.2) 10/07/18 22:18 AST 16 units/L (5-40) 10/07/18 22:18 ALT 13 units/L (7-56) 10/07/18 22:18 76 units/L (35-129) 10/07/18 22:18 0.818 ng/mL (0.00-0.029) H* 10/07/18 22:18 NT-Pro-B Natriuret Pep 07652 pg/mL (0-450) H 10/07/18 22:18 7.1 g/dL (6.3-8.2) 10/07/18 22:18 3.7 g/dL (3.9-5) L 10/07/18 22:18 1.1 % 10/07/18 22:18 Triglycerides 50 mg/dL (2-149) 10/07/18 22:18 Cholesterol 129 mg/dL (50-199) 10/07/18 22:18 90 mg/dL (50-130) 10/07/18 22:18 41 mg/dL (40-59) 10/07/18 22:18 3.14 % 10/07/18 22:18 29 units/L (13-60) 10/07/18 22:18 Active Medications - Current Medications Current Medications: Generic Name Dose Route Start Last Admin Trade Name Freq PRN Reason Stop Dose Admin Acetaminophen 650 mg 10/08/18 00:19 Tylenol PO Q4H PRN Fever >101 Albuterol 2.5 mg 10/08/18 00:17 Proventil IH Q6H PRN Shortness Of Breath Sodium Chloride 100 mls @ 999 mls/hr 10/07/18 23:43 Nacl 0.9% IV JULIA PRN Hypotension Ondansetron HCl 4 mg 10/08/18 00:18 Zofran IV Q8H PRN Nausea And Vomiting
[2018-10-08] MEDS: APRESOLINE IV PRN ×2 (08:19→13:41)
--- NOTE | 2018-10-08 09:05 | Consultation ---
History of Present Illness Consult date: 10/08/18 Consult reason: elevated troponin History of present illness: Patient is a 48 year old man that has a history of hypothyroidism, hypertension, end-stage renal disease on hemodialysis, chronic ascities requiring frequent paracentesis. He also has a dilated non-ischemic cardiomyopathy by non-invasive cardiac stress thallium test eight months ago that documents a normal perfusion scan but a decreased left ventricular systolic function with an ejection fraction 30-35% by echocardiogram. Patient presented to this hospital with shortness of breath, abdominal distention lower extremity edema admitted with volume overload. Patient has not had hemodialysis in a over week. Initial labs revealed severe hyperkalemia, potassium of 7.9. His initial EKG showed junctional rhythm with a RBBB. Patient was taken emergently for dialysis overnight. His potassium today is 5.1. A repeat ECG is sinus rhythm, LVH with repolarization abnormalities. Cardiac consultation has been requested. Medications and Allergies Allergies Allergy/AdvReac Type Severity Reaction Status Date / Time tramadol [From Ultram] AdvReac Dizziness Verified 03/05/18 15:30 Home Medications Medication Instructions Recorded Confirmed Last Taken Type cloNIDine [Catapres] 0.2 mg PO BID #60 tablet 09/04/18 10/08/18 10/07/18 Rx Active Meds: Active Medications Acetaminophen (Tylenol) 650 mg PO Q4H PRN PRN Reason: Fever >101 Albuterol (Proventil) 2.5 mg IH Q6H PRN PRN Reason: Shortness Of Breath Heparin Sodium (Porcine) (Heparin) 5,000 unit SUB-Q Q12HR FOSTER Hydralazine HCl (Apresoline) 10 mg IV Q4HR PRN PRN Reason: Blood Pressure Last Admin: 10/08/18 08:19 Dose: 10 mg Documented by: Sodium Chloride (Nacl 0.9%) 100 mls @ 999 mls/hr IV JULIA PRN PRN Reason: Hypotension Ondansetron HCl (Zofran) 4 mg IV Q8H PRN PRN Reason: Nausea And Vomiting Physical Examination Vital Signs Temp Pulse Resp BP Pulse Ox 97.9 F 61 16 159/94 100 10/07/18 21:41 10/07/18 21:41 10/07/18 21:41 10/07/18 21:41 10/07/18 21:41 General appearance: no acute distress HEENT: Positive: PERRL Cardiac: Positive: Reg Rate and Rhythm Lungs: Positive: Decreased Breath Sounds Neuro: Positive: Grossly Intact Abdomen: Positive: Ascites, Firm, Distended Extremities: Present: edema Results 10/07/18 22:18 10/08/18 09:04 Cardiac Enzymes 10/07/18 Range/Units 22:18 AST 16 (5-40) units/L Coagulation 10/07/18 Range/Units 22:18 PT 16.8 H (12.2-14.9) Sec. INR 1.28 H (0.87-1.13) APTT 29.3 (24.2-36.6) Sec. Lipids 10/07/18 Range/Units 22:18 Triglycerides 50 (2-149) mg/dL Cholesterol 129 (50-199) mg/dL HDL Cholesterol 41 (40-59) mg/dL Cholesterol/HDL Ratio 3.14 % CBC 10/07/18 Range/Units 22:18 WBC 5.9 (4.5-11.0) K/mm3 RBC 3.70 (3.65-5.03) M/mm3 Hgb 10.7 L (11.8-15.2) gm/dl Hct 33.6 L (35.5-45.6) % Plt Count 163 (140-440) K/mm3 Lymph # 1.0 L (1.2-5.4) K/mm3 [place] # 0.8 (0.0-0.8) K/mm3 Eos # 0.0 (0.0-0.4) K/mm3 Baso # 0.1 (0.0-0.1) K/mm3 Comprehensive Metabolic Panel 10/07/18 Range/Units 22:18 Sodium 137 (137-145) mmol/L Potassium 7.9 H* (3.6-5.0) mmol/L Chloride 95.6 L (98-107) mmol/L Carbon Dioxide 18 L (22-30) mmol/L BUN 99 H (9-20) mg/dL Creatinine 16.0 H (0.8-1.5) mg/dL Glucose 102 H (75-100) mg/dL Calcium 8.5 (8.4-10.2) mg/dL AST 16 (5-40) units/L ALT 13 (7-56) units/L Alkaline Phosphatase 76 (35-129) units/L Total Protein 7.1 (6.3-8.2) g/dL Albumin 3.7 L (3.9-5) g/dL Assessment and Plan Volume overload s/t missed dialysis Ascites s/p paracentesis End-stage renal disease on hemodialysis Nonischemic Cardiomyopathy EF 30-35% by echo 12/2017 no ischemia on MPI 12/2017 Hypertension Hypothyroidism Recommendations: Fluid/sodium restriction. Dialysis for fluid removal. Medical therapy for nonischemic cardiomyopathy.
--- NOTE | 2018-10-08 09:18 | Event Note ---
Patient was seen today for follow-up of multiple renal related issues No complaints of any chest pain pressure or shortness of breath He is currently in the ICU, Potassium this morning is pending Received dialysis Very upset about the dialysis He did not think that he needed dialysis Still complaining about abdominal distention Interdisciplinary notes that also reviewed Events of 24 hours vitals labs intake output medications were reviewed Past medical history: Reviewed Family history: Reviewed Social history: Reviewed Allergies: Reviewed Physical examination: Vitals: Reviewed HEENT: No pallor or icterus oral mucosa moist Neck: Supple no JVD no thyromegaly Chest: Bilateral Basilar crackles Heart: Regular rate and rhythm S1-S2 heard no S3-S4 Abdomen: Soft nontender no voluntary guarding rigidity rebound Extremity: 2-3+ edema Fluid blisters still evident Psychiatric: No evidence of agitation and aggression noted Dermatology: No petechial rashes Labs and x-rays: Reviewed from today Assessment and plan End-stage renal disease: Patient has been extensively Counseled and educated Extremely noncompliant patient prognosis very poor Adequately counseled and educated regarding all the renal related issues Patient In my opinion is critically ill He needs daily dialysis for next 3-5 days He refuses to do that Abnormal troponin: Concerning could be due to ESRD could be due to coronary artery disease Severe hyperkalemia currently labs are being drawn His prognosis is very poor Discussed with his nurse More than 35 minutes was spent in direct patient care in the ICU setting Critically ill patient, very noncompliant high-risk, high mortality risk patient as well Patient was adequately counseled and educated regarding all the renal related issues Laboratory studies, pertinent for discussed with patient All questions were answered and simple [place] Citizen We'll continue to follow and make recommendation for renal standpoint
[2018-10-08 10:20] LABS: Calcium 8.7 mg/dL (8.4-10.2)
[2018-10-08] MEDS ORDERED: XYLOCAINE 1% 20 mL ONE (11:38)
[2018-10-08] MEDS ORDERED: PROCARDIA XL PO SCH (12:00)
--- NOTE | 2018-10-08 12:19 | Ultrasound Report ---
ULTRASOUND PARACENTESIS HISTORY: Ascites. DESCRIPTION OF PROCEDURE: A time out was performed. Informed consent was obtained. Sterile technique was utilized. Using ultrasound guidance, a 5 Kinyarwanda centesis needle was advanced into the peritoneal space. There was spontaneous return of clear yellow fluid. 4.2 L of fluid was drained. No complications. IMPRESSION: Successful ultrasound-guided paracentesis.
--- NOTE | 2018-10-08 12:42 | Procedure Note ---
Date of procedure: 10/08/18 Pre-op diagnosis: ascites Post-op diagnosis: same Procedure: US paracentesis Findings: moderate ascites Anesthesia: local Surgeon: BARTOLOME IBRAHIM Estimated blood loss: none Pathology: none Specimen disposition: discarded Condition: stable Disposition: floor
--- NOTE | 2018-10-08 13:52 | Gastroenterology Consultation ---
<SIMRAN HOLT - Last Filed: 10/08/18 14:38> History of Present Illness - Reason for Consult Consult date: 10/08/18 ascites Requesting physician: MAME ESCOTO - History of Present Illness Patient is a 48 y/o male with PMH of HTN, hypothyroidism, CHF, chronic anemia, chronic recurrent ascites requiring frequent paracentesis, ESRD on HD (rosetta quently noncompliant with dialysis) who presented to ED with c/o SOB and abdominal swelling after missing dialysis x 1 week and was admitted with fluid overload and hyperkalemia. Cardiology and nephrology following. GI has been consulted for ascites. Patient is well known to our service and is followed by Dr. Sanchez (last OV 08/23/18). He has undergone an extensive prior workup for ascites at the end of last year and earlier this year (ultrasound, paracentesis with SAAG >1.3, doppler U/S negative) with etiology thought to be 2/2 CHF and ESRD, not liver. No hx or Fhx of liver disease or viral hepatitis. No alcohol use. This afternoon patient resting in bed w/o acute distress. Reports abdominal distention is better s/p paracentesis today with 4.2L removed. Denies fever, wt loss, abd pain, N/V, jaundice, signs of bleeding, or LGI symptoms. Past History Past Medical History: other (as per HPI) Past Surgical History: Other (dialysis access left arm, groin hernia repair) Social history: denies: smoking, alcohol abuse Medications and Allergies Allergies Allergy/AdvReac Type Severity Reaction Status Date / Time tramadol [From Ultram] AdvReac Dizziness Verified 03/05/18 15:30 Home Medications Medication Instructions Recorded Confirmed Last Taken Type cloNIDine [Catapres] 0.2 mg PO BID #60 tablet 09/04/18 10/08/18 10/07/18 Rx Active Meds: Active Medications Acetaminophen (Tylenol) 650 mg PO Q4H PRN PRN Reason: Fever >101 Last Admin: 10/08/18 13:40 Dose: 650 mg Documented by: Albuterol (Proventil) 2.5 mg IH Q6H PRN PRN Reason: Shortness Of Breath Heparin Sodium (Porcine) (Heparin) 5,000 unit SUB-Q Q12HR FOSTER Hydralazine HCl (Apresoline) 10 mg IV Q4HR PRN PRN Reason: Blood Pressure Last Admin: 10/08/18 13:41 Dose: 10 mg Documented by: Sodium Chloride (Nacl 0.9%) 100 mls @ 999 mls/hr IV JULIA PRN PRN Reason: Hypotension Nifedipine (Procardia Xl) 60 mg PO QDAY FOSTER Ondansetron HCl (Zofran) 4 mg IV Q8H PRN PRN Reason: Nausea And Vomiting medications reviewed/updated as required Review of Systems - Review of Systems All systems: negative Gastrointestinal: other (abdominal distention) Exam - Constitutional Vital Signs: Temp Pulse Resp BP Pulse Ox 97.6 F 65 23 209/107 100 10/08/18 12:00 10/08/18 13:41 10/08/18 10:31 10/08/18 13:41 10/08/18 10:31 General appearance: no acute distress - Respiratory Respiratory: bilateral: diminished - Cardiovascular Rhythm: regular - Gastrointestinal General gastrointestinal: Present: soft, non-tender, distended (ascites), normal bowel sounds - Neurologic Neurological: alert and oriented x3 - Labs CBC & Chem 7: 10/07/18 22:18 10/08/18 09:04 Lab Results: Laboratory Results - last 24 hr 10/07/18 10/07/18 10/07/18 22:18 22:18 22:18 WBC 5.9 RBC 3.70 Hgb 10.7 L Hct 33.6 L MCV 91 MCH 29 MCHC 32 RDW 20.7 H Plt Count 163 Lymph % (Auto) 16.6 Brooke % (Auto) 13.7 H Eos % (Auto) 0.8 Baso % (Auto) 0.9 Lymph # 1.0 L Brooke # 0.8 Eos # 0.0 Baso # 0.1 Seg Neutrophils % 68.0 Seg Neutrophils # 4.0 PT 16.8 H INR 1.28 H APTT 29.3 Sodium 137 Potassium 7.9 H* Chloride 95.6 L Carbon Dioxide 18 L Anion Gap 31 BUN 99 H Creatinine 16.0 H Estimated GFR 4 BUN/Creatinine Ratio 6 Glucose 102 H POC Glucose Calcium 8.5 Total Bilirubin 0.50 AST 16 ALT 13 Alkaline Phosphatase 76 Total Creatine Kinase CK-MB (CK-2) CK-MB (CK-2) Rel Index Troponin T NT-Pro-B Natriuret Pep Total Protein 7.1 Albumin 3.7 L Albumin/Globulin Ratio 1.1 Triglycerides Cholesterol LDL Cholesterol Direct HDL Cholesterol Cholesterol/HDL Ratio Lipase 29 Free T4 10/07/18 10/07/18 10/08/18 22:18 22:25 03:17 WBC RBC Hgb Hct MCV MCH MCHC RDW Plt Count Lymph % (Auto) Brooke % (Auto) Eos % (Auto) Baso % (Auto) Lymph # Brooke # Eos # Baso # Seg Neutrophils % Seg Neutrophils # PT INR APTT Sodium Potassium Chloride Carbon Dioxide Anion Gap BUN Creatinine Estimated GFR BUN/Creatinine Ratio Glucose POC Glucose 90 102 Calcium Total Bilirubin AST ALT Alkaline Phosphatase Total Creatine Kinase CK-MB (CK-2) CK-MB (CK-2) Rel Index Troponin T 0.818 H* NT-Pro-B Natriuret Pep 94228 H Total Protein Albumin Albumin/Globulin Ratio Triglycerides 50 Cholesterol 129 LDL Cholesterol Direct 90 HDL Cholesterol 41 Cholesterol/HDL Ratio 3.14 Lipase Free T4 10/08/18 10/08/18 09:04 09:04 WBC RBC Hgb Hct MCV MCH MCHC RDW Plt Count Lymph % (Auto) Brooke % (Auto) Eos % (Auto) Baso % (Auto) Lymph # Brooke # Eos # Baso # Seg Neutrophils % Seg Neutrophils # PT INR APTT Sodium 143 Potassium 5.1 H D Chloride 98.1 Carbon Dioxide 24 Anion Gap 26 BUN 62 H Creatinine 11.6 H Estimated GFR 6 BUN/Creatinine Ratio 5 Glucose 90 POC Glucose Calcium 8.7 Total Bilirubin AST ALT Alkaline Phosphatase Total Creatine Kinase 1808 H CK-MB (CK-2) 17.0 H CK-MB (CK-2) Rel Index 0.9 Troponin T 0.781 H* NT-Pro-B Natriuret Pep Total Protein Albumin Albumin/Globulin Ratio Triglycerides Cholesterol LDL Cholesterol Direct HDL Cholesterol Cholesterol/HDL Ratio Lipase Free T4 1.25 Assessment and Plan 1.recurrent ascites -LFTs WNL -patient has a hx of noncompliance with dialysis with multiple prior hospitalization due to volume overload. He is well known to our service and has undergone an extensive prior workup of ascites with (ultrasound, doppler u/s and paracentesis with SAAG >1.3) etiology thought to be 2/2 CHF and ESRD- no evidence of liver disease -s/p paracentesis today with 4.2L removed -clinically, patient reports feeling better with abd distention now improved. No abd pain, N/v, or signs of bleeding. Tolerating diet. -recommend LVP PRN -continue supportive care -need for compliance with dialysis discussed with patient -consider fluid restriction- will defer further management per cardiology and nephrology -patient to f/u in clinic upon discharge -GI will sign off, please call if needed <JEREMIAH KOWALSKI - Last Filed: 10/08/18 21:08> Exam - Constitutional Vital Signs: Temp Pulse Resp BP Pulse Ox 98 F 71 17 177/88 97 10/08/18 16:00 10/08/18 16:41 10/08/18 16:41 10/08/18 16:41 10/08/18 16:41 - Labs CBC & Chem 7: 10/07/18 22:18 10/08/18 09:04 Lab Results: Laboratory Results - last 24 hr 10/07/18 10/07/18 10/07/18 22:18 22:18 22:18 WBC 5.9 RBC 3.70 Hgb 10.7 L Hct 33.6 L MCV 91 MCH 29 MCHC 32 RDW 20.7 H Plt Count 163 Lymph % (Auto) 16.6 Brooke % (Auto) 13.7 H Eos % (Auto) 0.8 Baso % (Auto) 0.9 Lymph # 1.0 L Brooke # 0.8 Eos # 0.0 Baso # 0.1 Seg Neutrophils % 68.0 Seg Neutrophils # 4.0 PT 16.8 H INR 1.28 H APTT 29.3 Sodium 137 Potassium 7.9 H* Chloride 95.6 L Carbon Dioxide 18 L Anion Gap 31 BUN 99 H Creatinine 16.0 H Estimated GFR 4 BUN/Creatinine Ratio 6 Glucose 102 H POC Glucose Calcium 8.5 Total Bilirubin 0.50 AST 16 ALT 13 Alkaline Phosphatase 76 Total Creatine Kinase CK-MB (CK-2) CK-MB (CK-2) Rel Index Troponin T NT-Pro-B Natriuret Pep Total Protein 7.1 Albumin 3.7 L Albumin/Globulin Ratio 1.1 Triglycerides Cholesterol LDL Cholesterol Direct HDL Cholesterol Cholesterol/HDL Ratio Lipase 29 Free T4 10/07/18 10/07/18 10/08/18 22:18 22:25 03:17 WBC RBC Hgb Hct MCV MCH MCHC RDW Plt Count Lymph % (Auto) Brooke % (Auto) Eos % (Auto) Baso % (Auto) Lymph # Brooke # Eos # Baso # Seg Neutrophils % Seg Neutrophils # PT INR APTT Sodium Potassium Chloride Carbon Dioxide Anion Gap BUN Creatinine Estimated GFR BUN/Creatinine Ratio Glucose POC Glucose 90 102 Calcium Total Bilirubin AST ALT Alkaline Phosphatase Total Creatine Kinase CK-MB (CK-2) CK-MB (CK-2) Rel Index Troponin T 0.818 H* NT-Pro-B Natriuret Pep 10164 H Total Protein Albumin Albumin/Globulin Ratio Triglycerides 50 Cholesterol 129 LDL Cholesterol Direct 90 HDL Cholesterol 41 Cholesterol/HDL Ratio 3.14 Lipase Free T4 10/08/18 10/08/18 10/08/18 09:04 09:04 13:58 WBC RBC Hgb Hct MCV MCH MCHC RDW Plt Count Lymph % (Auto) Brooke % (Auto) Eos % (Auto) Baso % (Auto) Lymph # Brooke # Eos # Baso # Seg Neutrophils % Seg Neutrophils # PT INR APTT Sodium 143 Potassium 5.1 H D Chloride 98.1 Carbon Dioxide 24 Anion Gap 26 BUN 62 H Creatinine 11.6 H Estimated GFR 6 BUN/Creatinine Ratio 5 Glucose 90 POC Glucose 74 Calcium 8.7 Total Bilirubin AST ALT Alkaline Phosphatase Total Creatine Kinase 1808 H CK-MB (CK-2) 17.0 H CK-MB (CK-2) Rel Index 0.9 Troponin T 0.781 H* NT-Pro-B Natriuret Pep Total Protein Albumin Albumin/Globulin Ratio Triglycerides Cholesterol LDL Cholesterol Direct HDL Cholesterol Cholesterol/HDL Ratio Lipase Free T4 1.25 10/08/18 15:53 WBC RBC Hgb Hct MCV MCH MCHC RDW Plt Count Lymph % (Auto) Brooke % (Auto) Eos % (Auto) Baso % (Auto) Lymph # Brooke # Eos # Baso # Seg Neutrophils % Seg Neutrophils # PT INR APTT Sodium Potassium Chloride Carbon Dioxide Anion Gap BUN Creatinine Estimated GFR BUN/Creatinine Ratio Glucose POC Glucose Calcium Total Bilirubin AST ALT Alkaline Phosphatase Total Creatine Kinase 1850 H CK-MB (CK-2) 17.1 H CK-MB (CK-2) Rel Index 0.9 Troponin T 0.741 H* NT-Pro-B Natriuret Pep Total Protein Albumin Albumin/Globulin Ratio Triglycerides Cholesterol LDL Cholesterol Direct HDL Cholesterol Cholesterol/HDL Ratio Lipase Free T4 Assessment and Plan Patient seen and examined. I have reviewed the advanced practitioner's evaluation, assessment, and plan, and agree with them. I note the following additions: patient known to our service and ascites felt not due to liver disease but rather due to CHF/ESRD. He is currently feeling better s/p para Will sign off, may follow up PRN
[2018-10-08 16:35] LABS: Creatine Kinase MB 17.1 ng/mL (0.0-4.0)
[2018-10-08 16:45] VITALS: BP 177/88
[2018-10-09] MEDS ORDERED: HEPARIN SUB-Q SCH (10:00)
--- NOTE | 2018-10-09 13:14 | Discharge Summary ---
Providers - Providers Date of Admission: 10/08/18 00:08 Attending physician: REBA CAREY 10/07/18 23:47 Consult to Physician [CONS] Urgent Comment: Dr. Díaz spoke with Dr. Smith @ [phone] Consulting Provider: VA SMITH Physician Instructions: Reason For Exam: k 7.9 dialysis noncompliance 10/08/18 06:00 Consult to Physician [CONS] Routine Comment: Consulting Provider: HANH CHAVEZ Physician Instructions: Reason For Exam: CIRRHOSIS OF THE LIVER WITH ASCITIS 10/08/18 07:50 Consult to Physician [CONS] Routine Comment: Consulting Provider: YELENA JO Physician Instructions: Reason For Exam: Elevated troponin above baseline, new EKG changes 10/08/18 07:52 Consult to Wound/ET Nurse [CONS] Routine Reason For Exam: wound eval Primary care physician: ZHANE LEHMAN MD Hospitalization Condition: Stable Hospital course: I extensively counseled patient. He left AMA again Disposition: DC-30 STILL A PATIENT Core Measure Documentation - Palliative Care Palliative Care/ Comfort Measures: Not Applicable - Core Measures Any of the following diagnoses?: none - VTE Discharge Requirements Deep Vein Thrombosis/Pulmonary Embolism Present on Admission: No Has pt received <5 days of overlap therapy or INR<2.0: No Anticoagulant overlap therapy prescribed at discharge: No Contraindication No Overlap Therapy order at DC: Not Indicated Exam - Constitutional Vitals: Temp Pulse Resp BP Pulse Ox 98 F 71 17 177/88 97 10/08/18 16:00 10/08/18 16:41 10/08/18 16:41 10/08/18 16:41 10/08/18 16:41 Plan Follow up with: ZHANE VAZQUEZ MD [Primary Care Provider] - 3-5 Days
== END 2018-10-08 17:40 | disposition left against medical advice (07) | DRG 640 ==
LOC: ED 21:26 → CC1 10-08 00:08
PROVIDERS: ADMIT Internal Medicine; ATTEND Internal Medicine
PROC: 5A1D70Z Performance of Urinary Filtration, Intermittent, Less than 6 Hours Per Day (ICD-10-PCS; principal; 2018-10-08)
PROC: 0W9G3ZZ Drainage of Peritoneal Cavity, Percutaneous Approach (ICD-10-PCS; 2018-10-08)
DX: E87.5 Hyperkalemia (principal); N18.6 End stage renal disease; R18.8 Other ascites; I13.2 Hypertensive heart and chronic kidney disease with heart failure and with stage 5 chronic kidney disease, or end stage renal disease; I42.9 Cardiomyopathy, unspecified; N25.81 Secondary hyperparathyroidism of renal origin; I42.0 Dilated cardiomyopathy; I50.42 Chronic combined systolic (congestive) and diastolic (congestive) heart failure; K74.60 Unspecified cirrhosis of liver; D63.1 Anemia in chronic kidney disease; K21.9 Gastro-esophageal reflux disease without esophagitis; E03.9 Hypothyroidism, unspecified; I45.10 Unspecified right bundle-branch block; Z53.21 Procedure and treatment not carried out due to patient leaving prior to being seen by health care provider; Z91.15 Patient's noncompliance with renal dialysis; Z99.2 Dependence on renal dialysis
CPT/HCPCS: 36415; 49083; 71045; 80048; 80053; 80061; 82550; 82553; 82962; 83690; 83880; 84439; 84484; 85025; 85610; 85730; 93005; 93010; 94644; 94760; G0378; J0360; J0610; J1815; J1940

== ENCOUNTER 2018-10-16 09:15 | Day surgery (SDC) | payer MEDICARE ==
--- NOTE | 2018-10-08 05:12 | History and Physical Report ---
CHIEF COMPLAINT: Shortness of breath. OTHER COMPLAINT: Include abdominal swelling. HISTORY OF PRESENTING ILLNESS: The patient is a 48-year-old male with end-stage renal disease, on Tuesdays, , and Saturdays, who did not go for his dialysis on 10/06/18 because he said he was out of town and started having shortness of breath. There was also history of abdominal swelling with some discomfort in both the abdomen and epigastric area extending to the lower substernal chest area. The patient denied history of fever. Denied history of cough and admitted to having swelling in the ankles. The patient denies history of dizziness and presented for evaluation. PAST MEDICAL HISTORY: Pertinent for hypertension. Also, the patient has past medical history of congestive heart failure; gastroesophageal reflux disease; end-stage renal disease, on dialysis. Also, the patient has past history of abdominal hernia, cirrhosis of the liver, and ascites. PAST SURGICAL HISTORY: Pertinent for dialysis access placement on the left hand, groin hernia repair. FAMILY HISTORY: Noncontributory. SOCIAL HISTORY: The patient does not smoke, does not drink alcohol, and does not use illicit drugs. MEDICATIONS: The patient is on clonidine 0.2 mg by mouth twice daily. ALLERGIES: THE PATIENT IS ALLERGIC TO TRAMADOL. REVIEW OF SYSTEMS: CONSTITUTIONAL: There is no fever, no chills, no diaphoresis. HEENT: There is no headache or sore throat. CARDIOVASCULAR SYSTEM: There is no chest pain or orthopnea. RESPIRATORY SYSTEM: Shortness of breath is present. There is no cough. GASTROINTESTINAL SYSTEM: There is no nausea, no vomiting, but there is abdominal discomfort and abdominal swelling. No diarrhea or constipation. NEUROLOGICAL SYSTEM: There is no numbness, no dizziness, no altered mental status. MUSCULOSKELETAL SYSTEM: Swelling of the ankle is noted. DERMATOLOGICAL SYSTEM: There is some skin rash in the leg noted. No itching. GENITOURINARY: Dysuria noted. No hematuria or flank pain. Rest of system review is normal. PHYSICAL EXAMINATION: GENERAL: At the time of exam, the patient was found to be alert, oriented x 3, and in [id number] distress due to shortness of breath. VITAL SIGNS: At the initial time of presentation showed temperature of 97.9 degrees Fahrenheit, pulse of 61, respirations 16, blood pressure 159/94, O2 sat of 100% on oxygen. HEENT: Showed pupils to be equal, round, reactive to light and accommodating. Extraocular muscles were intact. NECK: Supple with no JVD or carotid bruit. CARDIOVASCULAR SYSTEM: Showed normal first and second heart sounds with no gallops or murmurs. RESPIRATORY SYSTEM: Showed reduced air entry on both sides of the lungs with no abnormal breath sounds. GASTROINTESTINAL SYSTEM: Showed abdomen to be enlarged, nontender with no organomegaly or rigidity elicited. Bowel sounds were normal. There was presence of shifting dullness on percussion. NEUROLOGICAL SYSTEM: Showed no focal deficit. MUSCULOSKELETAL SYSTEM: Showed no joint swelling or tenderness. DERMATOLOGICAL SYSTEM: Showed some rashes in both lower extremities which were chronic. GENITOURINARY SYSTEM: Showed no costovertebral angle tenderness. PERTINENT LABORATORY DATA AND IMAGING STUDIES: The patient had chest x-ray done that showed no evidence of any acute cardiopulmonary process. There is mild stable cardiomegaly. Lab results: The patient had CBC done with normal white count, low hemoglobin of 10.7, and low hematocrit of 33.6 with CBC differential showing elevated monocyte count of 13.3%. Coagulation studies were unremarkable. The patient's chemistry showed high potassium level of 7.9 with high BUN of 99 and high creatinine of 16. Also, the patient's troponin level was elevated with a value of 0.818. Brain natriuretic peptide level is high with a value of 70,000. DIAGNOSES: 1. End-stage renal disease, on dialysis. 2. Hyperkalemia. 3. Ascites. 4. Elevated troponin level. 5. Fluid overload. PLAN OF CARE: 1. The patient will be admitted to [facility]. 2. The patient will continue with Nephrology consult with Dr. Smith who plans to do an emergency dialysis this night. 3. The patient will have GI consult with [place] [facility] and will see Dr. Stewart Marina because of cirrhosis of the liver with ascites. 4. The patient will have abdominal paracentesis done in the morning because of ascites. 5. The patient will be on IV Zofran 4 mg every 8 hours as needed for nausea and vomiting. 6. The patient will have basic metabolic panel checked in the morning and will have serial cardiac enzymes involving troponin, total CK, and CK-MB check q. 6 hours x 2 more levels. 7. The patient's DVT prophylaxis will be through sequential compressive device. [facility]# [id number] OCN/FELIPE SILVESTRED
[2018-10-16 10:11] LABS: INR 1.28 (0.87-1.13)
[2018-10-16 10:13] LABS: Partial Thromboplastin Time 31.6 Sec. (24.2-36.6)
[2018-10-16 10:23] VITALS: BP 169/74
--- NOTE | 2018-10-16 14:45 | Short Stay Summary ---
Short Stay Documentation Date of service: 10/16/18 - History Principal diagnosis: ascites Past Medical History: renal failure - Allergies and Medications Current Medications: Allergies hydralazine Allergy (Verified 10/16/18 13:24) Unknown polystyrene sulfonate [From Kayexalate] Allergy (Verified 10/16/18 13:24) Unknown tramadol [From Ultram] Adverse Reaction (Verified 03/05/18 15:30) Dizziness Home Medications Medication Instructions Recorded Confirmed Last Taken Type cloNIDine [Catapres] 0.2 mg PO BID #60 tablet 09/04/18 10/16/18 10/16/18 06:00 Rx - Physical exam General appearance: other (patient appeared mildy obtunded) Lungs: Clear to auscultation Gastrointestinal: distended - Brief post op/procedure progress note Date of procedure: 10/16/18 Pre-op diagnosis: ascites Post-op diagnosis: other (hemoperitonium) Procedure: US paracentesis Anesthesia: local Findings: moderate complex ascites Surgeon: BARTOLOME IBRAHIM Estimated blood loss: none Pathology: list (60cc sent to lab) Specimen disposition: to lab Condition: stable - Hospital course Hospital course: patient appeared obtunded to me during paracentesis. complaints of vague abdominal pain. Paracentesis revealed hemoperitonium. The ordering doctor was notified. It was decided to sent the patient to the ER after the paracentesis for evaluation. - Disposition Condition at discharge: Fair Disposition: DC/TX-70 ANOTHER TYPE [facility] Short Stay Discharge Plan Follow up with: FRANKO GRANDE MD [Primary Care Provider] - 7 Days
--- NOTE | 2018-10-16 15:13 | Ultrasound Report ---
ULTRASOUND PARACENTESIS HISTORY: Ascites. DESCRIPTION OF PROCEDURE: A time out was performed. Informed consent was obtained. Sterile technique was utilized. Using ultrasound guidance, a 5 Indonesian centesis needle was advanced into the peritoneal space. There was spontaneous return of bloody fluid. 3.8 L of fluid was drained. 60 cc of fluid was sent to laboratory for analysis. No complications. The ordering physician, Dr. Sanchez, was called to be notified of these findings. It was decided to send the patient to the emergency department for evaluation after the paracentesis. IMPRESSION: Successful ultrasound-guided paracentesis. See above.
== END 2018-10-16 09:16 | disposition home or self-care (01) ==
LOC: CATHLABREC 09:15
PROVIDERS: ATTEND Internal Medicine Gastroenterology
DX: R18.8 Other ascites (principal); I13.2 Hypertensive heart and chronic kidney disease with heart failure and with stage 5 chronic kidney disease, or end stage renal disease; I50.9 Heart failure, unspecified; N18.6 End stage renal disease; D64.9 Anemia, unspecified; I50.22 Chronic systolic (congestive) heart failure; I42.9 Cardiomyopathy, unspecified; E66.9 Obesity, unspecified; I20.8 Other forms of angina pectoris; F17.210 Nicotine dependence, cigarettes, uncomplicated; Z79.899 Other long term (current) drug therapy; Z87.440 Personal history of urinary (tract) infections; Z91.19 Patient's noncompliance with other medical treatment and regimen; Z91.15 Patient's noncompliance with renal dialysis; Z68.37 Body mass index [BMI] 37.0-37.9, adult; Z99.2 Dependence on renal dialysis; Z98.890 Other specified postprocedural states; Z88.8 Allergy status to other drugs, medicaments and biological substances; Z53.20 Procedure and treatment not carried out because of patient's decision for unspecified reasons
CPT/HCPCS: 36415; 49083; 85610; 85730; 88112; 88305; C1729

== ENCOUNTER 2018-10-16 13:10 | Inpatient (IN) | payer MEDICARE ==
[2018-10-16 13:40] LABS: Eosinophils # (Auto) 0.1 K/mm3 (0.0-0.4); Eosinophils % (Auto) 2.1 % (0.0-4.3); Hemoglobin 10.9 gm/dl (11.8-15.2); Lymphocytes # (Auto) 0.7 K/mm3 (1.2-5.4); Lymphocytes % (Auto) 14.7 % (13.4-35.0); Mean Corpuscular HGB Conc 32 % (32-34); Mean Corpuscular Volume 89 fl (84-94); Monocytes # (Auto) 0.7 K/mm3 (0.0-0.8); Monocytes % (Auto) 14.9 % (0.0-7.3); Platelet Count 181 K/mm3 (140-440)
[2018-10-16 13:53] LABS: Red Cell Distribution Width 20.2 % (13.2-15.2)
[2018-10-16 14:03] LABS: Creatine Kinase MB 15.2 ng/mL (0.0-4.0)
[2018-10-16 14:05] LABS: Albumin 3.5 g/dL (3.9-5); Calcium 8.8 mg/dL (8.4-10.2)
[2018-10-16 14:29] LABS: Bilirubin,Direct 0.3 mg/dL (0-0.2)
[2018-10-16] MEDS ORDERED: D50W (25GM) Syringe IV ONE (14:42)
[2018-10-16] MEDS ORDERED: HumuLIN R IV ONE (14:42)
--- NOTE | 2018-10-16 14:42 | Emergency Department Report ---
ED General Adult HPI - General Chief complaint: Medical Clearance Stated complaint: SICK Time Seen by Provider: 10/16/18 13:13 Source: patient, RN notes reviewed Mode of arrival: Stretcher Limitations: No Limitations - History of Present Illness Initial comments: 48-year-old male is transported from the ultrasound suite for evaluation of the emergency department. This is a chronic dialysis patient who receives periodic paracentesis for recurrent ascites. The patient states that he does not have a problem with his liver or his heart and that his ascites is due to his kidneys. However, it does appear that the patient has a cardiomyopathy. Records review is pending. In any case, he was found to have serosanguineous blood which was removed by the radiologist, Dr. Aaron. A tube of the blood was brought to the emergency department. It was sent for analysis. The patient stated that he's been having some recurrent problems with generalized weakness and dizziness. He did feel that way at or about the time of his paracentesis. I did not get the sense that it was actually correlated well with the removal of fluid however. He denied abdominal pain. He denied fever or chills. He has not had a bloody tap prior. The radiologist reports no difficulty with the procedure. -: Gradual Associated Symptoms: denies other symptoms - Related Data Previous Rx's Medication Instructions Recorded Last Taken Type cloNIDine [Catapres] 0.2 mg PO BID #60 tablet 09/04/18 10/16/18 06:00 Rx Allergies Allergy/AdvReac Type Severity Reaction Status Date / Time hydralazine Allergy Unknown Verified 10/16/18 13:24 labetalol Allergy Vomiting Verified 10/16/18 15:22 polystyrene sulfonate Allergy Unknown Verified 10/16/18 13:24 [From Kayexalate] tramadol [From Ultram] AdvReac Dizziness Verified 03/05/18 15:30 ED Review of Systems ROS: Stated complaint: SICK Other details as noted in HPI Constitutional: weakness. denies: chills, fever Eyes: denies: eye pain, eye discharge, vision change ENT: denies: ear pain, throat pain Respiratory: shortness of breath (no acute exacerbation, chronically). denies: cough, wheezing Cardiovascular: denies: chest pain, palpitations Endocrine: no symptoms reported Gastrointestinal: denies: abdominal pain, nausea, diarrhea Genitourinary: denies: urgency, dysuria Musculoskeletal: denies: back pain, joint swelling, arthralgia Skin: denies: rash, lesions Neurological: denies: headache, weakness, paresthesias Psychiatric: denies: anxiety, depression Hematological/Lymphatic: denies: easy bleeding, easy bruising ED Past Medical Hx - Past Medical History Previous Medical History?: Yes Hx Hypertension: Yes Hx CVA: No Hx Heart Attack/AMI: No Hx Congestive Heart Failure: Yes (diastolic - CHRONIC , CARDIOMYOPATHY) Hx Diabetes: No Hx Deep Vein Thrombosis: No Hx Pulmonary Embolism: No Hx GERD: No Hx Liver Disease: No Hx Renal Disease: Yes (HD TTS) Hx Sickle Cell Disease: No Hx Arthritis: No Hx Headaches / Migraines: No Hx Seizures: No Hx Kidney Stones: No Hx Psychiatric Treatment: No Hx Asthma: No Hx COPD: No Hx Tuberculosis: No Hx Dementia: No Hx HIV: No Additional medical history: Abdominal Hernias, right groin hernia, - Surgical History Past Surgical History?: Yes Hx Coronary Stent: No Hx Open Heart Surgery: No Hx Pacemaker: No Hx Internal Defibrillator: No Hx Cholecystectomy: No Hx Appendectomy: No Hx Breast Surgery: No Additional Surgical History: dialysis access left arm, groin hernia repair, - Social History Smoking Status: Current Every Day Smoker Substance Use Type: None - Medications Home Medications: Home Medications Medication Instructions Recorded Confirmed Last Taken Type cloNIDine [Catapres] 0.2 mg PO BID #60 tablet 09/04/18 10/16/18 10/16/18 06:00 Rx ED Physical Exam - General Limitations: No Limitations, Physical Limitation General appearance: alert, in no apparent distress, obese - Head Head exam: Present: atraumatic, normocephalic - Eye Eye exam: Present: normal appearance. Absent: scleral icterus - ENT ENT exam: Present: mucous membranes moist - Neck Neck exam: Present: normal inspection. Absent: tenderness, meningismus - Respiratory Respiratory exam: Present: normal lung sounds bilaterally. Absent: respiratory distress - Cardiovascular Cardiovascular Exam: Present: regular rate, normal rhythm. Absent: systolic murmur, diastolic murmur, rubs, gallop - GI/Abdominal GI/Abdominal exam: Present: soft, distended, normal bowel sounds. Absent: tenderness (no significant tenderness found), guarding, rebound, rigid - Rectal Rectal exam: Present: deferred - Extremities Exam Extremities exam: Present: other (2+ bilateral leg edema pitting) - Back Exam Back exam: Present: normal inspection - Neurological Exam Neurological exam: Present: alert, oriented X3, CN II-XII intact. Absent: motor sensory deficit - Psychiatric Psychiatric exam: Present: normal affect, normal mood - Skin Skin exam: Present: warm, dry, intact, normal color. Absent: rash ED Course Vital Signs 10/16/18 10/16/18 10/16/18 13:19 15:00 15:13 Temperature 98.2 F Pulse Rate 60 66 66 Respiratory 19 18 27 H Rate Blood Pressure 194/114 Blood Pressure 206/109 [Right] O2 Sat by Pulse 99 99 97 Oximetry 10/16/18 15:32 Temperature Pulse Rate 65 Respiratory Rate Blood Pressure 174/100 Blood Pressure [Right] O2 Sat by Pulse Oximetry - Reevaluation(s) Reevaluation #1: Patient was substantially hypertensive rather than hypotensive after the procedure. Eventually an inch of Nitrol paste was placed. He is allergic to labetalol and hydralazine. He did not have any appreciable shortness of breath however. Chest x-ray showed a large heart with vascular congestion. He was found to have a potassium of 6.7. This was temporized giving one amp of bicarbonate, insulin and D50. His need for dialysis was discussed with the nurse practitioner Sophia for the nephrology group. Patient was discussed and admitted by Dr. Hodge to telemetry. 10/16/18 15:47 ED Medical Decision Making - Lab Data Result diagrams: 10/16/18 Unknown 10/16/18 Unknown Laboratory Results - last 24 hr 10/16/18 10/16/18 10/16/18 Unknown Unknown Unknown WBC 4.7 RBC 3.80 Hgb 10.9 L Hct 34.0 L MCV 89 MCH 29 MCHC 32 RDW 20.2 H Plt Count 181 Lymph % (Auto) 14.7 [place] % (Auto) 14.9 H Eos % (Auto) 2.1 Baso % (Auto) 1.0 Lymph # 0.7 L [place] # 0.7 Eos # 0.1 Baso # 0.0 Seg Neutrophils % 67.3 Seg Neutrophils # 3.2 Sodium 136 L Potassium 6.7 H* Chloride 94.4 L Carbon Dioxide 23 Anion Gap 25 BUN 70 H Creatinine 12.9 H Estimated GFR 5 BUN/Creatinine Ratio 5 Glucose 105 H Lactic Acid 0.80 Calcium 8.8 Phosphorus 9.50 H Magnesium 2.50 H Total Bilirubin 0.50 Direct Bilirubin 0.3 H Indirect Bilirubin 0.2 AST 19 ALT 13 Alkaline Phosphatase 81 CK-MB (CK-2) 15.2 H Total Protein 7.2 Albumin 3.5 L Albumin/Globulin Ratio 0.9 Lipase 26 - EKG Data -: EKG Interpreted by Me EKG shows normal: sinus rhythm Rate: normal - EKG Data Interpretation: no acute changes - Radiology Data Discussed with Dr. Aaron. No retroperitoneal blood. Polycystic kidney disease. "No signs of active bleeding" per radiologist. No source of bleeding per radiologist. No acute findings on CT Critical Care Time: Yes Critical care time in (mins) excluding proc time.: 55 Critical care attestation.: If time is entered above; I have spent that time in minutes in the direct care of this critically ill patient, excluding procedure time. ED Disposition Clinical Impression: Hemoperitoneum (nontraumatic), Hyperkalemia, Cardiomyopathy due to hypertension, with heart failure, Uncontrolled hypertension, End-stage renal d isease needing dialysis Disposition: 09 OP ADMIT IP TO THIS HOSP Is pt being admited?: Yes Does the pt Need Aspirin: No (Will hold aspirin due to hemoperitoneum) Condition: Stable Instructions: Hypertension (ED) Time of Disposition: 15:51
[2018-10-16] MEDS ORDERED: NORMODYNE IV ONE (15:16)
--- NOTE | 2018-10-16 15:20 | Cat Scan Report ---
CT ABDOMEN PELVIS WITHOUT CONTRAST: HISTORY: abdominal pain. COMPARISON: none. TECHNIQUE: Helical CT in 1.25mm intervals without IV contrast. Sagittal and coronal reconstructions. FINDINGS: Lung bases: Mild cardiomegaly, small pericardial effusion and trace right pleural effusion. Liver: Within normal limits. Biliary system: Normal. Pancreas: Normal. Spleen: Normal. Kidneys/ureters/bladder: The kidneys are markedly enlarged with numerous cysts. Many of the cysts demonstrate hemorrhagic change. This has the appearance of autosomal dominant polycystic kidney disease. Adrenal glands: Normal. Aorta: Normal. Intestines: Normal. Appendix: Not confidently identified. Pelvic viscera: Normal. Ascites: Small pelvic fluid. Adenopathy: None. Musculoskeletal: Intact. Ventral wall hernia repair is noted and intact. IMPRESSION: No acute process is identified in the abdomen or pelvis. Mild cardiomegaly, small pericardial effusion and trace right pleural effusion. Findings consistent with autosomal dominant polycystic kidney disease. Small pelvic ascites/hemoperitoneum. These findings were discussed with Dr. Greene in the emergency department at 1515 hrs.
[2018-10-16] MEDS ORDERED: NITRO-BID 2% TP ONE (15:25)
[2018-10-16 15:39] LABS: Total Cells Counted 5 /mm3
--- NOTE | 2018-10-16 16:08 | XRay Report ---
PROCEDURE: XR CHEST 1V AP TECHNIQUE: Chest radiograph single view. HISTORY: hypertension COMPARISONS: Chest x-ray dated October 07, 2018 . FINDINGS: There is bilateral hypoinflation similar in appearance to the previous study. There is prominence of the interstitial markings in both lungs similar in appearance to the previous study. There appear to be small patchy areas of pulmonary consolidation in both lung bases. Atelectasis vers us infiltrates. There is no evidence of pneumothorax and no definite evidence of pleural effusion. The cardiac silhouette is enlarged but not significantly changed. There is prominence of the pulmonary venous vasculature consistent with pulmonary venous congestion. The bony structures are not significantly changed in appearance. IMPRESSION: 1. Hypoinflation. 2. Enlarged cardiac silhouette with evidence of pulmonary venous congestion which is not significantl y changed in the interval.. 3. Atelectasis versus infiltrates both lung bases. This document is electronically signed by Francie Pelletier MD., Oct 16 2018 04:05:49 PM ET
--- NOTE | 2018-10-16 16:57 | Consultation ---
History of Present Illness - History of Present Illness 48-year-old with medical history significant for HTN, ESRD on hemodialysis at [facility] , congestive heart failure , bilateral lower extremity edema, seen in the ER for paracentesis with 3.8 L removed and had labs done which showed elevated potassium he denies any orthopnea PND he did request oxygen. 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 that he does not have any heart failure he also tells me that he is at his dry weight despite significant pitting edema he has me about ways to to remove fluid Apart from dialysis Medications and Allergies Allergies Allergy/AdvReac Type Severity Reaction Status Date / Time hydralazine Allergy Unknown Verified 10/16/18 13:24 labetalol Allergy Vomiting Verified 10/16/18 15:22 polystyrene sulfonate Allergy Unknown Verified 10/16/18 13:24 [From Kayexalate] tramadol [From Ultram] AdvReac Dizziness Verified 03/05/18 15:30 Home Medications Medication Instructions Recorded Confirmed Last Taken Type cloNIDine [Catapres] 0.2 mg PO BID #60 tablet 09/04/18 10/16/18 10/16/18 06:00 Rx Review of Systems Constitutional: weight gain, anorexia Ears, nose, mouth and throat: no ear pain, no ear discharge Cardiovascular: edema, shortness of breath, no chest pain, no orthopnea, no palpitations, no rapid/irregular heart beat Respiratory: no cough, no cough with sputum Gastrointestinal: no abdominal pain, no nausea, no vomiting Genitourinary Male: no dysuria, no hematuria Rectal: no pain, no incontinence Musculoskeletal: no neck stiffness, no neck pain Integumentary: no deferred, no rash Neurological: no head injury, no transient paralysis Psychiatric: no anxiety, no memory loss Endocrine: no cold intolerance, no heat intolerance Exam - Vital Signs Vital signs: Vital Signs Temp Pulse Resp BP Pulse Ox 98.2 F 60 19 194/114 99 10/16/18 13:19 10/16/18 13:19 10/16/18 13:19 10/16/18 13:19 10/16/18 13:19 - General Appearance General appearance: well-developed, well-nourished EENT: ATNC, PERRL Neck: Present: neck supple Respiratory: Decreased Breath Sounds Heart: regular, S1S2, other (grade 2-3 edema with skin changes . ) Gastrointestinal: Present: normal, normoactive bowel sounds Integumentary: no rash Neurologic: no focal deficit, alert and oriented x3, CN 3-12 intact Psychiatric: mood/affect appropriate Results - Lab Results 10/16/18 Unknown 10/16/18 Unknown Most recent lab results Calcium 8.8 mg/dL (8.4-10.2) 10/16/18 Unknown Phosphorus 9.50 mg/dL (2.5-4.5) H 10/16/18 Unknown Magnesium 2.50 mg/dL (1.7-2.3) H 10/16/18 Unknown - Image Kidney/bladder ultrasound: image reviewed (I reviewed chest x-ray with bilateral patchy opacities) pulmonary congestion) Assessment and Plan - Patient Problems (1) End-stage renal disease needing dialysis Current Visit: Yes Status: Acute Plan to address problem: End stage renal disease on dialysis Will initiate dialysis for hyperkalemia and Volume overload Unfortunately patient is very insistent on self diagnoses I have tried in the past to explain about his volume overload in setting of congestive heart failure however he is very insistent about etiology of his symptoms I again discussed with him today about his cardiac and renal issues We'll continue to educate the patient and provide recommendations (2) Uncontrolled hypertension Current Visit: Yes Status: Acute Plan to address problem: Hypertension uncontrolled will initiate dialysis Resume medications received labetalol intravenously (3) Acute exacerbation of CHF (congestive heart failure) Current Visit: No Status: Acute Qualifiers: Heart failure type: unspecified Qualified Code(s): I50.9 - Heart failure, unspecified Plan to address problem: Acute congestive heart failure Ultrafiltration as tolerated with ultrafiltration goal 3 L (4) Hyperkalemia Current Visit: No Status: Acute Plan to address problem: Hyperkalemia We'll initiate dialysis received insulin and dextrose reviewed EKG with flattened P waves and tall T waves We'll give calcium gluconate
[2018-10-16] MEDS ORDERED: CALCIUM GLUCONATE 2,000 MG in NACL 0.9% 100 ML IV ONE (20:58)
[2018-10-16] MEDS ORDERED: KIONEX PO ONE (20:58)
--- NOTE | 2018-10-16 20:58 | History and Physical Report ---
History of Present Illness Date of examination: 10/16/18 Date of admission: 10/16/18 15:51 History of present illness: 48-year-old male is transported from the ultrasound suite for evaluation of the emergency department. This is a chronic dialysis patient who receives periodic paracentesis for recurrent ascites. The patient states that he does not have a problem with his liver or his heart and that his ascites is due to his kidneys. However, it does appear that the patient has a cardiomyopathy. Records review is pending. In any case, he was found to have serosanguineous blood which was removed by the radiologist, Dr. Aaron. A tube of the blood was brought to the emergency department. It was sent for analysis. The patient stated that he's been having some recurrent problems with generalized weakness and dizziness. He did feel that way at or about the time of his paracentesis. I did not get the sense that it was actually correlated well with the removal of fluid however. He denied abdominal pain. He denied fever or chills. He has not had a bloody tap prior. The radiologist reports no difficulty with the procedure. -: Gradual Associated Symptoms: denies other symptoms - Related Data Previous Rx's Medication Instructions Recorded Last Taken Type cloNIDine [Catapres] 0.2 mg PO BID #60 tablet 09/04/18 10/16/18 06:00 Rx Allergies Allergy/AdvReac Type Severity Reaction Status Date / Time hydralazine Allergy Unknown Verified 10/16/18 13:24 labetalol Allergy Vomiting Verified 10/16/18 15:22 polystyrene sulfonate Allergy Unknown Verified 10/16/18 13:24 [From Kayexalate] tramadol [From Ultram] AdvReac Dizziness Verified 03/05/18 15:30 - Past Medical History Previous Medical History?: Yes Hx Hypertension: Yes Hx CVA: No Hx Heart Attack/AMI: No Hx Congestive Heart Failure: Yes (diastolic - CHRONIC , CARDIOMYOPATHY) Hx Diabetes: No Hx Deep Vein Thrombosis: No Hx Pulmonary Embolism: No Hx GERD: No Hx Liver Disease: No Hx Renal Disease: Yes (HD TTS) Hx Sickle Cell Disease: No Hx Arthritis: No Hx Headaches / Migraines: No Hx Seizures: No Hx Kidney Stones: No Hx Psychiatric Treatment: No Hx Asthma: No Hx COPD: No Hx Tuberculosis: No Hx Dementia: No Hx HIV: No Additional medical history: Abdominal Hernias, right groin hernia, - Surgical History Past Surgical History?: Yes Hx Coronary Stent: No Hx Open Heart Surgery: No Hx Pacemaker: No Hx Internal Defibrillator: No Hx Cholecystectomy: No Hx Appendectomy: No Hx Breast Surgery: No Additional Surgical History: dialysis access left arm, groin hernia repair, - Social History Smoking Status: Current Every Day Smoker Substance Use Type: None - Medications Home Medications: Home Medications Medication Instructions Recorded Confirmed Last Taken Type cloNIDine [Catapres] 0.2 mg PO BID #60 tablet 09/04/18 10/16/18 10/16/18 06:00 Rx Review of Systems ROS: Stated complaint: SICK Other details as noted in HPI Constitutional: weakness. denies: chills, fever Eyes: denies: eye pain, eye discharge, vision change ENT: denies: ear pain, throat pain Respiratory: shortness of breath (no acute exacerbation, chronically). denies: cough, wheezing Cardiovascular: denies: chest pain, palpitations Endocrine: no symptoms reported Gastrointestinal: denies: abdominal pain, nausea, diarrhea Genitourinary: denies: urgency, dysuria Musculoskeletal: denies: back pain, joint swelling, arthralgia Skin: denies: rash, lesions Neurological: denies: headache, weakness, paresthesias Psychiatric: denies: anxiety, depression Hematological/Lymphatic: denies: easy bleeding, easy bruising Medications and Allergies Allergies Allergy/AdvReac Type Severity Reaction Status Date / Time hydralazine Allergy Unknown Verified 10/16/18 13:24 labetalol Allergy Vomiting Verified 10/16/18 15:22 polystyrene sulfonate Allergy Unknown Verified 10/16/18 13:24 [From Kayexalate] tramadol [From Ultram] AdvReac Dizziness Verified 03/05/18 15:30 Home Medications Medication Instructions Recorded Confirmed Last Taken Type cloNIDine [Catapres] 0.2 mg PO BID #60 tablet 09/04/18 10/16/18 10/16/18 06:00 Rx Exam - Constitutional Vitals: Temp Pulse Resp BP Pulse Ox 98.2 F 71 29 H 194/98 95 10/16/18 13:19 10/16/18 17:00 10/16/18 17:00 10/16/18 17:00 10/16/18 17:00 Results - Labs CBC & Chem 7: 10/16/18 Unknown 10/16/18 Unknown Labs: Laboratory Last Values WBC 4.7 K/mm3 (4.5-11.0) 10/16/18 Unknown RBC 3.80 M/mm3 (3.65-5.03) 10/16/18 Unknown Hgb 10.9 gm/dl (11.8-15.2) L 10/16/18 Unknown Hct 34.0 % (35.5-45.6) L 10/16/18 Unknown MCV 89 fl (84-94) 10/16/18 Unknown MCH 29 pg (28-32) 10/16/18 Unknown MCHC 32 % (32-34) 10/16/18 Unknown RDW 20.2 % (13.2-15.2) H 10/16/18 Unknown Plt Count 181 K/mm3 (140-440) 10/16/18 Unknown Lymph % (Auto) 14.7 % (13.4-35.0) 10/16/18 Unknown [place] % (Auto) 14.9 % (0.0-7.3) H 10/16/18 Unknown Eos % (Auto) 2.1 % (0.0-4.3) 10/16/18 Unknown Baso % (Auto) 1.0 % (0.0-1.8) 10/16/18 Unknown Lymph # 0.7 K/mm3 (1.2-5.4) L 10/16/18 Unknown [place] # 0.7 K/mm3 (0.0-0.8) 10/16/18 Unknown Eos # 0.1 K/mm3 (0.0-0.4) 10/16/18 Unknown Baso # 0.0 K/mm3 (0.0-0.1) 10/16/18 Unknown Seg Neutrophils % 67.3 % (40.0-70.0) 10/16/18 Unknown Seg Neutrophils # 3.2 K/mm3 (1.8-7.7) 10/16/18 Unknown Sodium 136 mmol/L (137-145) L 10/16/18 Unknown Potassium 6.7 mmol/L (3.6-5.0) H* 10/16/18 Unknown Chloride 94.4 mmol/L (98-107) L 10/16/18 Unknown Carbon Dioxide 23 mmol/L (22-30) 10/16/18 Unknown 25 mmol/L 10/16/18 Unknown BUN 70 mg/dL (9-20) H 10/16/18 Unknown 12.9 mg/dL (0.8-1.5) H 10/16/18 Unknown Estimated GFR 5 ml/min 10/16/18 Unknown 5 % 10/16/18 Unknown Glucose 105 mg/dL (75-100) H 10/16/18 Unknown Lactic Acid 0.80 mmol/L (0.7-2.0) 10/16/18 Unknown Calcium 8.8 mg/dL (8.4-10.2) 10/16/18 Unknown Phosphorus 9.50 mg/dL (2.5-4.5) H 10/16/18 Unknown Magnesium 2.50 mg/dL (1.7-2.3) H 10/16/18 Unknown 0.50 mg/dL (0.1-1.2) 10/16/18 Unknown 0.3 mg/dL (0-0.2) H 10/16/18 Unknown 0.2 mg/dL 10/16/18 Unknown AST 19 units/L (5-40) 10/16/18 Unknown ALT 13 units/L (7-56) 10/16/18 Unknown 81 units/L (35-129) 10/16/18 Unknown 44.0 umol/L (25-60) 10/16/18 Unknown 1836 units/L (55-170) H 10/16/18 Unknown CK-MB (CK-2) 15.2 ng/mL (0.0-4.0) H 10/16/18 Unknown CK-MB (CK-2) Rel Index 0.8 (0-4) 10/16/18 Unknown 7.2 g/dL (6.3-8.2) 10/16/18 Unknown 3.5 g/dL (3.9-5) L 10/16/18 Unknown 0.9 % 10/16/18 Unknown 26 units/L (13-60) 10/16/18 Unknown Fluid Type Ascitic 10/16/18 13:40 Fluid Color Red 10/16/18 13:40 Fluid Appearance Turbid 10/16/18 13:40 Fluid WBC 0 /mm3 10/16/18 13:40 Fluid RBC 4325 /mm3 10/16/18 13:40 Fluid Lymphocytes 100 % 10/16/18 13:40 Blood Type A POSITIVE 10/16/18 14:03 Antibody Screen Negative 10/16/18 14:03
[2018-10-16] MEDS ORDERED: ZOFRAN IV PRN (21:02)
[2018-10-16] MEDS ORDERED: DILAUDID IV PRN (21:02)
[2018-10-16] MEDS ORDERED: TYLENOL PO PRN (21:02)
[2018-10-16] MEDS ORDERED: SODIUM CHLORIDE FLUSH SYRINGE 10 ML IV PRN (21:02)
[2018-10-16] MEDS ORDERED: PERCOCET 5/325 PO PRN (21:02)
[2018-10-16] MEDS ORDERED: APRESOLINE IV PRN (21:10)
[2018-10-16 21:55] VITALS: BP 190/100
[2018-10-16] MEDS ORDERED: CATAPRES PO SCH (22:00)
[2018-10-16] MEDS ORDERED: PEPCID PO SCH (22:00)
[2018-10-16] MEDS ORDERED: SODIUM CHLORIDE FLUSH SYRINGE 10 ML IV SCH (22:00)
[2018-10-16] MEDS ORDERED: NACL 0.9 (PRIMING MACHINE ONLY DIALYSIS) MC ONE (22:38)
--- NOTE | 2018-10-17 04:34 | Event Note ---
Date: 10/16/18 See H/P in reports Ascites Hyperkalemia ESRD on HD
--- NOTE | 2018-10-17 04:39 | Event Note ---
Date: 10/16/18 Patient left AMA See Discharge summary
--- NOTE | 2018-10-17 05:14 | History and Physical Report ---
CHIEF COMPLAINT: 1. Abdominal distention. 2. Swelling of both the lower extremities. HISTORY OF PRESENT ILLNESS: A 48-year-old -[place] male with history of hypertension, end-stage renal disease; recurrent ascites for the last 4-5 months, comes in for abdominal distention and shortness of breath. No orthopnea. The patient was sent to Radiology for paracentesis and had 3.8 liters of serosanguineous fluid removed. Fluid sent to the lab for cell count and chemistries. In the Emergency Room, the patient was found to have a high potassium level, hence admission for dialysis and treatment of high potassium level. No shortness of breath. No recent travel. No fever or chills. PAST MEDICAL HISTORY: Significant for hypertension, end-stage renal disease, congestive heart failure. No GERD. No cerebrovascular accident. PAST SURGICAL HISTORY: Significant for dialysis access left arm and groin hernia repair. SOCIAL HISTORY: Smokes over a pack a day. FAMILY HISTORY: Hypertension. REVIEW OF SYSTEMS: Significant for shortness of breath and also abdominal distention. Shortness of breath on minimal exertion. Generalized weakness. Otherwise, review of systems negative. Dialysis on Monday, , and Monday. A 14-point review of systems done. Otherwise, negative. PHYSICAL EXAMINATION: GENERAL: Middle-aged male, cooperative during examination. VITAL SIGNS: Blood pressure 196/115, temperature is 98, pulse is 65, respirations are 18. HEENT: Unremarkable. Pupils equal and reactive. NECK: Supple, no lymphadenopathy, no thyromegaly. LUNGS: Clear to auscultation and percussion. Good air entry. CARDIOVASCULAR: S1, S2 heard. No gallop, no murmur, no rub. Apical impulse in left fifth intercostal space and midclavicular line. ABDOMEN: Distended after the paracentesis. Tight abdomen. Fluid thrill present. Bowel sounds could not be heard. Inguinal areas, no hernias. EXTREMITIES: Lower extremities, 2+ pedal edema present. Also, nodularity on the skin present on both the legs. The patient attributes to blood transfusions in the past. CENTRAL NERVOUS SYSTEM: Alert and oriented x 4, nonfocal exam. LABORATORY DATA AND IMAGING STUDIES: H and H is 10.9 and 34.0, platelet count is 181,000. Potassium is 6.7. Sodium is 136, BUN and creatinine is 17 and 12.9, phosphorus is 9.5, magnesium is 2.5, direct bilirubin is 0.3. Total CK is 1836, CK-MB is 15.2, albumin is 3.5. Paracentesis analysis, rbc's is 4325. No wbc's. CT of the abdomen shows polycystic kidney disease and ascites. Chest x-ray shows hyperinflation enlarged cardiac silhouette, pulmonary venous congestion, atelectasis versus infiltrates both lung bases. EKG shows heart rate of 55. LVH by voltage criteria. Deep S waves in V1, V2, V3. ASSESSMENT AND PLAN: 1. Ascites, probably secondary to pulmonary hypertension and hepatic pathology. Bloody serosanguineous fluid drained from the Radiology Department about 3.8 liters. Fluid sent for cell count and chemistries. Chemistries are still pending. Cell count shows more than 4000 rbc's, no wbc's. Recurrent paracentesis and GI consult was requested. 2. Hypertensive emergency. The patient was given IV PATIENT IS ALLERGIC TO HYDRALAZINE. THE PATIENT ALSO ALLERGIC TO LABETALOL. IV Lopressor to be given. Also, resume his antihypertensive medications. Compliance was counseled. 3. Hyperkalemia, treated. Also, the patient going for emergent hemodialysis. 4. End-stage renal disease, on dialysis. Continue hemodialysis as per Monday, , and Monday schedule. The patient is getting Monday schedule today in the hospital. 5. Malnutrition, mild to moderate. Dietitian consult requested. 6. Deep venous thrombosis prophylaxis, heparin 5000 q. 12 and gastrointestinal prophylaxis ordered. JOB# [id number] VSM/NTS
--- NOTE | 2018-10-17 05:54 | Discharge Summary ---
HOSPITAL COURSE: See history and physical. The patient was admitted for ascites, hypertensive emergency, hyperkalemia and emergent dialysis. The patient had a paracentesis done, 3.8 liters of fluid was withdrawn. The patient was treated for hyperkalemia, was given calcium gluconate and emergent hemodialysis. Repeat labs were to be drawn. Hypertensive emergency was being treated with IV medications and oral medications. In the meantime, the patient decides to leave the facility against medical advice. The patient left AMA. DISCHARGE DIAGNOSES: 1. Hypertensive emergency. 2. Hyperkalemia. 3. Ascites with paracentesis done. 4. End-stage renal disease. 5. Emergent hemodialysis. JOB# [id number] VERNA/FELIPE
[2018-10-22 09:06] LABS: pH, Body Fluid 7.6
== END 2018-10-16 21:50 | disposition left against medical advice (07) | DRG 291 ==
LOC: ED 13:10 → 4A 15:51
PROVIDERS: ADMIT Internal Medicine; ATTEND Internal Medicine
PROC: 5A1D70Z Performance of Urinary Filtration, Intermittent, Less than 6 Hours Per Day (ICD-10-PCS; principal; 2018-10-16)
PROC: 0W9G3ZZ Drainage of Peritoneal Cavity, Percutaneous Approach (ICD-10-PCS; 2018-10-16)
DX: I13.2 Hypertensive heart and chronic kidney disease with heart failure and with stage 5 chronic kidney disease, or end stage renal disease (principal); N18.6 End stage renal disease; K66.1 Hemoperitoneum; I50.33 Acute on chronic diastolic (congestive) heart failure; R18.8 Other ascites; I16.1 Hypertensive emergency; E44.0 Moderate protein-calorie malnutrition; I42.9 Cardiomyopathy, unspecified; F17.200 Nicotine dependence, unspecified, uncomplicated; E87.5 Hyperkalemia; Z99.2 Dependence on renal dialysis; Z79.899 Other long term (current) drug therapy; Z82.49 Family history of ischemic heart disease and other diseases of the circulatory system; Z68.37 Body mass index [BMI] 37.0-37.9, adult
CPT/HCPCS: 36415; 49083; 71045; 74176; 80048; 80076; 82140; 82550; 82553; 83036; 83690; 83735; 84100; 84160; 85025; 85610; 85730; 86850; 86900; 86901; 87116; 88112; 88305; 89051; 93005; 93010; G0378; C1729; J0610; J1815; J7030

== ENCOUNTER 2018-10-28 06:25 | Inpatient (IN) | payer MEDICARE ==
--- NOTE | 2018-10-28 07:31 | Emergency Department Report ---
ED General Adult HPI - General Chief complaint: Dyspnea/Respdistress Stated complaint: HYPERTENSION Time Seen by Provider: 10/28/18 06:57 Source: patient, EMS Mode of arrival: Stretcher Limitations: No Limitations - History of Present Illness Initial comments: Patient presents to the emergency department with a chief complaint of shortness of breath. Patient states the symptoms have been present for the last couple of days. Patient is a dialysis patient and goals on Tuesdays, , Saturdays. Patient also states he has ascites and is scheduled for paracentesis on Monday. Patient denies any chest pain, headache, abdominal pain. -: Gradual Severity scale (0 -10): 0 Improves with: other Worsens with: movement Associated Symptoms: denies other symptoms Treatments Prior to Arrival: none - Related Data Previous Rx's Medication Instructions Recorded Last Taken Type cloNIDine [Catapres] 0.2 mg PO BID #60 tablet 09/04/18 10/16/18 06:00 Rx Allergies Allergy/AdvReac Type Severity Reaction Status Date / Time hydralazine Allergy Unknown Verified 10/16/18 13:24 labetalol Allergy Vomiting Verified 10/16/18 15:22 polystyrene sulfonate Allergy Unknown Verified 10/16/18 13:24 [From Kayexalate] tramadol [From Ultram] AdvReac Dizziness Verified 03/05/18 15:30 ED Review of Systems ROS: Stated complaint: HYPERTENSION Other details as noted in HPI Comment: All other systems reviewed and negative Constitutional: denies: chills, fever Eyes: denies: eye pain, eye discharge, vision change ENT: denies: ear pain, throat pain Respiratory: shortness of breath. denies: cough, wheezing Cardiovascular: denies: chest pain, palpitations Endocrine: no symptoms reported Gastrointestinal: denies: abdominal pain, nausea, diarrhea Genitourinary: denies: urgency, dysuria Musculoskeletal: denies: back pain, joint swelling, arthralgia Skin: denies: rash, lesions Neurological: denies: headache, weakness, paresthesias Psychiatric: denies: anxiety, depression Hematological/Lymphatic: denies: easy bleeding, easy bruising ED Past Medical Hx - Past Medical History Previous Medical History?: Yes Hx Hypertension: Yes Hx CVA: No Hx Heart Attack/AMI: No Hx Congestive Heart Failure: Yes (diastolic - CHRONIC , CARDIOMYOPATHY) Hx Diabetes: No Hx Deep Vein Thrombosis: No Hx Pulmonary Embolism: No Hx GERD: No Hx Liver Disease: No Hx Renal Disease: Yes (HD TTS) Hx Sickle Cell Disease: No Hx Arthritis: No Hx Headaches / Migraines: No Hx Seizures: No Hx Kidney Stones: No Hx Psychiatric Treatment: No Hx Asthma: No Hx COPD: No Hx Tuberculosis: No Hx Dementia: No Hx HIV: No Additional medical history: Abdominal Hernias, right groin hernia, - Surgical History Past Surgical History?: Yes Hx Coronary Stent: No Hx Open Heart Surgery: No Hx Pacemaker: No Hx Internal Defibrillator: No Hx Cholecystectomy: No Hx Appendectomy: No Hx Breast Surgery: No Additional Surgical History: dialysis access left arm, groin hernia repair, - Social History Smoking Status: Never Smoker Substance Use Type: Alcohol, Marijuana - Medications Home Medications: Home Medications Medication Instructions Recorded Confirmed Last Taken Type cloNIDine [Catapres] 0.2 mg PO BID #60 tablet 09/04/18 10/16/18 10/16/18 06:00 Rx ED Physical Exam - General Limitations: No Limitations General appearance: alert, in no apparent distress - Head Head exam: Present: atraumatic, normocephalic - Eye Eye exam: Present: normal appearance, PERRL, EOMI - ENT ENT exam: Present: mucous membranes moist - Neck Neck exam: Present: normal inspection - Respiratory Respiratory exam: Present: rales. Absent: respiratory distress - Cardiovascular Cardiovascular Exam: Present: regular rate, normal rhythm. Absent: systolic murmur, diastolic murmur, rubs, gallop - GI/Abdominal GI/Abdominal exam: Present: soft, distended, normal bowel sounds. Absent: tenderness - Rectal Rectal exam: Present: deferred - Extremities Exam Extremities exam: Present: normal inspection, other (pitting edema) - Back Exam Back exam: Present: normal inspection - Neurological Exam Neurological exam: Present: alert, oriented X3, CN II-XII intact. Absent: motor sensory deficit - Psychiatric Psychiatric exam: Present: normal affect, normal mood - Skin Skin exam: Present: warm, dry, intact, normal color. Absent: rash ED Course Vital Signs 10/28/18 10/28/18 10/28/18 06:38 06:40 06:46 Temperature 97.8 F Pulse Rate 77 67 64 Respiratory 14 22 15 Rate Blood Pressure 164/94 164/94 Blood Pressure 164/94 [Right] O2 Sat by Pulse 96 99 Oximetry 10/28/18 10/28/18 10/28/18 06:50 07:00 07:16 Temperature Pulse Rate 60 72 Respiratory 22 14 16 Rate Blood Pressure Blood Pressure [Right] O2 Sat by Pulse 96 100 97 Oximetry 10/28/18 10/28/18 10/28/18 07:30 07:46 08:00 Temperature Pulse Rate 61 62 66 Respiratory 23 10 L 14 Rate Blood Pressure 171/100 171/100 171/100 Blood Pressure [Right] O2 Sat by Pulse 100 97 98 Oximetry 10/28/18 10/28/18 08:15 08:22 Temperature Pulse Rate 62 Respiratory 20 Rate Blood Pressure Blood Pressure 174/101 [Right] O2 Sat by Pulse 96 Oximetry ED Medical Decision Making - Lab Data Result diagrams: 10/28/18 07:26 10/28/18 07:26 Lab Results 10/28/18 10/28/18 10/28/18 Range/Units 07:26 07:26 07:31 WBC 5.6 (4.5-11.0) K/mm3 RBC 3.39 L (3.65-5.03) M/mm3 Hgb 10.0 L (11.8-15.2) gm/dl Hct 30.7 L (35.5-45.6) % MCV 91 (84-94) fl MCH 29 (28-32) pg MCHC 32 (32-34) % RDW 19.6 H (13.2-15.2) % Plt Count 179 (140-440) K/mm3 [place]iles % (Auto) Coal Tower Operator Add Manual Diff Complete Total Counted 100 Seg Neuts % (Manual) 66.0 (40.0-70.0) % Band Neutrophils % 0 % Lymphocytes % (Manual) 14.0 (13.4-35.0) % Reactive Lymphs % (Man) 1.0 % Monocytes % (Manual) 12.0 H (0.0-7.3) % Eosinophils % (Manual) 3.0 (0.0-4.3) % Basophils % (Manual) 4.0 H (0.0-1.8) % Metamyelocytes % 0 % Myelocytes % 0 % Promyelocytes % 0 % Blast Cells % 0 % Nucleated RBC % Not Reportable Seg Neutrophils # Man 3.7 (1.8-7.7) K/mm3 Band Neutrophils # 0.0 K/mm3 Lymphocytes # (Manual) 0.8 L (1.2-5.4) K/mm3 Abs React Lymphs (Man) 0.1 K/mm3 Monocytes # (Manual) 0.7 (0.0-0.8) K/mm3 Eosinophils # (Manual) 0.2 (0.0-0.4) K/mm3 Basophils # (Manual) 0.2 H (0.0-0.1) K/mm3 Metamyelocytes # 0.0 K/mm3 Myelocytes # 0.0 K/mm3 Promyelocytes # 0.0 K/mm3 Blast Cells # 0.0 K/mm3 WBC Morphology Not Reportable Hypersegmented Neuts Not Reportable Hyposegmented Neuts Not Reportable Hypogranular Neuts Not Reportable Smudge Cells Not Reportable Toxic Granulation Not Reportable Toxic Vacuolation Not Reportable Dohle Bodies Not Reportable Pelger-Huet Anomaly Not Reportable Vin Rods Not Reportable Platelet Estimate Consistent w auto Clumped Platelets Not Reportable Plt Clumps, EDTA Not Reportable Large Platelets Not Reportable Giant Platelets Not Reportable Platelet Satelliting Not Reportable Plt Morphology Comment Not Reportable RBC Morphology Not Reportable Dimorphic RBCs Not Reportable Polychromasia Not Reportable Hypochromasia Not Reportable Poikilocytosis Not Reportable Anisocytosis 1+ Microcytosis Not Reportable Macrocytosis Not Reportable Spherocytes Not Reportable Pappenheimer Bodies Not Reportable Sickle Cells Not Reportable Target Cells Not Reportable Tear Drop Cells Not Reportable Ovalocytes Not Reportable Helmet Cells Not Reportable [place] Bodies Not Reportable [place] Rings Not Reportable [place] Cells Not Reportable Bite Cells Not Reportable Crenated Cell Not Reportable Elliptocytes Not Reportable Acanthocytes (Spur) Not Reportable Rouleaux Not Reportable Hemoglobin C Crystals Not Reportable Schistocytes Not Reportable Malaria parasites Not Reportable Charbel Bodies Not Reportable Hem Pathologist Commnt No PT (12.2-14.9) Sec. INR (0.87-1.13) APTT (24.2-36.6) Sec. POC ABG pH (7.35-7.45) POC ABG pCO2 (35-45) POC ABG pO2 (80-105) POC ABG HCO3 (22-26 mml/L) POC ABG Total CO2 (23-27mmol/L) POC ABG O2 Sat POC ABG Base Excess ((-2) - (+3)mmol/L) FiO2 % Sodium 140 (137-145) mmol/L Potassium 5.8 H (3.6-5.0) mmol/L Chloride 98.3 (98-107) mmol/L Carbon Dioxide 21 L (22-30) mmol/L Anion Gap 27 mmol/L BUN 86 H (9-20) mg/dL Creatinine 13.1 H (0.8-1.5) mg/dL Estimated GFR 5 ml/min BUN/Creatinine Ratio 7 % Glucose 106 H (75-100) mg/dL Calcium 9.4 (8.4-10.2) mg/dL Total Bilirubin 0.60 (0.1-1.2) mg/dL AST 14 (5-40) units/L ALT 13 (7-56) units/L Alkaline Phosphatase 68 (35-129) units/L NT-Pro-B Natriuret Pep 520248 H (0-450) pg/mL Total Protein 7.1 (6.3-8.2) g/dL Albumin 3.3 L (3.9-5) g/dL Albumin/Globulin Ratio 0.9 % 10/28/18 10/28/18 Range/Units 07:31 08:24 WBC (4.5-11.0) K/mm3 RBC (3.65-5.03) M/mm3 Hgb (11.8-15.2) gm/dl Hct (35.5-45.6) % MCV (84-94) fl MCH (28-32) pg MCHC (32-34) % RDW (13.2-15.2) % Plt Count (140-440) K/mm3 [place] % (Auto) Add Manual Diff Total Counted Seg Neuts % (Manual) (40.0-70.0) % Band Neutrophils % % Lymphocytes % (Manual) (13.4-35.0) % Reactive Lymphs % (Man) % Monocytes % (Manual) (0.0-7.3) % Eosinophils % (Manual) (0.0-4.3) % Basophils % (Manual) (0.0-1.8) % Metamyelocytes % % Myelocytes % % Promyelocytes % % Blast Cells % % Nucleated RBC % Seg Neutrophils # Man (1.8-7.7) K/mm3 Band Neutrophils # K/mm3 Lymphocytes # (Manual) (1.2-5.4) K/mm3 Abs React Lymphs (Man) K/mm3 Monocytes # (Manual) (0.0-0.8) K/mm3 Eosinophils # (Manual) (0.0-0.4) K/mm3 Basophils # (Manual) (0.0-0.1) K/mm3 Metamyelocytes # K/mm3 Myelocytes # K/mm3 Promyelocytes # K/mm3 Blast Cells # K/mm3 WBC Morphology Hypersegmented Neuts Hyposegmented Neuts Hypogranular Neuts Smudge Cells Toxic Granulation Toxic Vacuolation Dohle Bodies Pelger-Huet Anomaly Vin Rods Platelet Estimate Clumped Platelets Plt Clumps, EDTA Large Platelets Giant Platelets Platelet Satelliting Plt Morphology Comment RBC Morphology Dimorphic RBCs Polychromasia Hypochromasia Poikilocytosis Anisocytosis Microcytosis Macrocytosis Spherocytes Pappenheimer Bodies Sickle Cells Target Cells Tear Drop Cells Ovalocytes Helmet Cells [place] Bodies [place] Rings [place] Cells Bite Cells Crenated Cell Elliptocytes Acanthocytes (Spur) Rouleaux Hemoglobin C Crystals Schistocytes Malaria parasites Charbel Bodies Hem Pathologist Commnt PT 17.4 H (12.2-14.9) Sec. INR 1.34 H (0.87-1.13) APTT 31.8 (24.2-36.6) Sec. POC ABG pH 7.418 (7.35-7.45) POC ABG pCO2 32.3 L (35-45) POC ABG pO2 78 L (80-105) POC ABG HCO3 20.9 (22-26 mml/L) POC ABG Total CO2 22 (23-27mmol/L) POC ABG O2 Sat 96 POC ABG Base Excess -4 ((-2) - (+3)mmol/L) FiO2 21 % Sodium (137-145) mmol/L Potassium (3.6-5.0) mmol/L Chloride (98-107) mmol/L Carbon Dioxide (22-30) mmol/L Anion Gap mmol/L BUN (9-20) mg/dL Creatinine (0.8-1.5) mg/dL Estimated GFR ml/min BUN/Creatinine Ratio % Glucose (75-100) mg/dL Calcium (8.4-10.2) mg/dL Total Bilirubin (0.1-1.2) mg/dL AST (5-40) units/L ALT (7-56) units/L Alkaline Phosphatase (35-129) units/L NT-Pro-B Natriuret Pep (0-450) pg/mL Total Protein (6.3-8.2) g/dL Albumin (3.9-5) g/dL Albumin/Globulin Ratio % - EKG Data -: EKG Interpreted by Id EKG shows normal: sinus rhythm - EKG Data Interpretation: [facility] - Radiology Data Radiology results: report reviewed - Medical Decision Making Hyperkalemia treated with hyperkalemic drugs Spoke with Dr. Ricci cable mechanic and the patient will be dialyzed possibly in the a.m. but will be evaluated while admitted for emergent dialysis if needed Discussed results and plan of care with patient Critical Care Time: Yes Critical care time in (mins) excluding proc time.: 45 Critical care attestation.: If time is entered above; I have spent that time in minutes in the direct care of this critically ill patient, excluding procedure time. ED Disposition Clinical Impression: Hyperkalemia, ESRD (end stage renal disease) on dialysis Disposition: OP ADMIT IP TO THIS HOSP Is pt being admited?: Yes Does the pt Need Aspirin: Yes Condition: Fair Referrals: ZHANE VAZQUEZ MD [Primary Care Provider] - 3-5 Days
--- NOTE | 2018-10-28 07:31 | XRay Report ---
PROCEDURE: XR CHEST 1V AP TECHNIQUE: Chest radiograph single view. HISTORY: SOB COMPARISONS: 10/16/2018 . FINDINGS: Heart: Heart is enlarged. Mediastinum/Vessels: Normal. Lungs/Pleural space: Lungs are clear and expanded. There are no infiltrates, effusions or pneumothor aces.. Bony thorax: No acute osseous abnormality. Life support devices: None. IMPRESSION: No acute cardiopulmonary abnormality. The heart is enlarged. This document is electronically signed by Angel Messer MD., October 28 2018 08:29:18 AM ET
[2018-10-28 07:50] LABS: Hematocrit 30.7 % (35.5-45.6); Mean Corpuscular HGB Conc 32 % (32-34); Mean Corpuscular Volume 91 fl (84-94); Platelet Count 179 K/mm3 (140-440); Red Blood Count 3.39 M/mm3 (3.65-5.03); Red Cell Distribution Width 19.6 % (13.2-15.2)
[2018-10-28 08:00] LABS: INR 1.34 (0.87-1.13)
[2018-10-28 08:01] LABS: Partial Thromboplastin Time 31.8 Sec. (24.2-36.6)
[2018-10-28 08:09] LABS: Albumin 3.3 g/dL (3.9-5); Calcium 9.4 mg/dL (8.4-10.2)
[2018-10-28] MEDS ORDERED: TYLENOL ONE (08:31)
[2018-10-28] MEDS ORDERED: TYLENOL PO ONE (08:55)
[2018-10-28] MEDS ORDERED: CALCIUM GLUCONATE 1,000 MG in NACL 0.9% 100 ML IV ONE (09:31)
[2018-10-28] MEDS ORDERED: KIONEX PO ONE (09:31)
[2018-10-28] MEDS ORDERED: ROBITUSSIN AC PO ONE (09:38)
[2018-10-28] MEDS ORDERED: HumuLIN R IV ONE (10:01)
[2018-10-28] MEDS ORDERED: D50W (25GM) Vial IV ONE (10:01)
[2018-10-28] MEDS: D50W (25GM) Syringe IV ONE ×2 (10:15→23:24)
[2018-10-28] MEDS ORDERED: NACL 0.9% 100 ML IV PRN (10:31)
[2018-10-28 10:48] LABS: Anisocytosis 1+; Platelet Estimate Consistent w Auto; Total Cells Counted 100
--- NOTE | 2018-10-28 10:51 | History and Physical Report ---
History of Present Illness Date of examination: 10/28/18 Date of admission: 10/28/18 Chief complaint: Abdominal pain History of present illness: Patient is a 48 yo man with a history of hypertension, CHF, Dilated cardiomyopathy, EF 30-35%, NSVT, chronically elevated troponins, GERD, PKD, ESRD on TTh, hypothyroidism, AOCD, chronic anemia, recurrent ascities requiring frequent paracentesis, and poor medical compliance presents to the ED with complaints of shortness of breath, orthopena and tense abdomen. He denied any chest pain, nausea, vomiting, diarrhea or fever. He reports compliance with dialysis but at first gave the wrong dialysis center to the ED doctor. He is unable to give me any information about his PO fluid intake but states that he has ecurrent paracenesis but in the last two months has had to come to the hospital due to increase abdominal girth just a few days prior. He reports that his symptoms stared following his blood transfusion a year ago and also hernia surgery and there has been no diagnosis to why he has the ascites. In the ED he was noted to be hypoxic and also with hyperkalemia ROS: EXCEPT NOTED IN THE HPI ALL 14 POINT SYSTEM HAS BEEN REVIEWED WITH THE PATIENT AND OTHERWISE NEGATIVE Past History Past Medical History: CAD, dialysis, heart failure, hypertension, hyperlipidemia , renal failure Past Surgical History: Other (AV GRAFT) Social history: no significant social history, full code Family history: no significant family history Medications and Allergies Allergies Allergy/AdvReac Type Severity Reaction Status Date / Time labetalol Allergy Vomiting Verified 10/16/18 15:22 polystyrene sulfonate Allergy Unknown Verified 10/16/18 13:24 [From Kayexalate] tramadol [From Ultram] AdvReac Dizziness Verified 03/05/18 15:30 Home Medications Medication Instructions Recorded Confirmed Last Taken Type cloNIDine [Catapres] 0.2 mg PO BID #60 tablet 09/04/18 10/28/18 10/27/18 Rx Aspirin 325 mg PO PRN 10/28/18 10/28/18 Unknown History Carvedilol 10/28/18 Unknown History Furosemide [Lasix] 20 mg PO QDAY 10/28/18 10/28/18 05/29/18 History Active Meds: Active Medications Dextrose (D50w (25gm) Syringe) 100 ml IV ONCE ONE Stop: 10/28/18 11:01 Last Admin: 10/28/18 10:15 Dose: 100 ml Documented by: Sodium Chloride (Nacl 0.9%) 100 mls @ 999 mls/hr IV JULIA PRN PRN Reason: Hypotension Exam - Physical Exam Narrative exam: VITAL SIGNS: Reviewed. GENERAL: The patient appeared well nourished and normally developed, Vital signs as documented. HEAD: No signs of head trauma. EYES: Pupils are equal. Extraocular motions intact. EARS: Hearing grossly intact. MOUTH: Oropharynx is normal. NECK: No adenopathy, no JVD. Mildly tender on the right side. CHEST: Chest with rales breath sounds bilaterally. No wheezes. CARDIAC: Regular rate and rhythm. S1 and S2, without murmurs, gallops, or rubs. VASCULAR: +2 pitting edema bilateral Peripheral pulses normal and equal in all extremities. ABDOMEN: tense, chronically distended, no pain, positive fluid shift. No rebound or guarding, and no masses palpated. Bowel Sounds normal. MUSCULOSKELETAL: Good range of motion of all major joints. Extremities without clubbing, cyanosis. bilateral +2 pitting edema NEUROLOGIC EXAM: Alert and oriented x 3 No focal sensory or strength deficits. Speech normal. Follows commands. PSYCHIATRIC: Mood normal. SKIN: Chronic skin abrasion and punctuate lesion in bilateral lower ext. - Constitutional Vitals: Temp Pulse Resp BP Pulse Ox 97.8 F 62 20 174/101 96 10/28/18 06:40 10/28/18 08:15 10/28/18 08:15 10/28/18 08:22 10/28/18 08:15 Results - Labs CBC & Chem 7: 10/28/18 07:26 10/28/18 15:05 Labs: Laboratory Last Values WBC 5.6 K/mm3 (4.5-11.0) 10/28/18 07:26 RBC 3.39 M/mm3 (3.65-5.03) L 10/28/18 07:26 Hgb 10.0 gm/dl (11.8-15.2) L 10/28/18 07:26 Hct 30.7 % (35.5-45.6) L 10/28/18 07:26 MCV 91 fl (84-94) 10/28/18 07:26 MCH 29 pg (28-32) 10/28/18 07:26 MCHC 32 % (32-34) 10/28/18 07:26 RDW 19.6 % (13.2-15.2) H 10/28/18 07:26 Plt Count 179 K/mm3 (140-440) 10/28/18 07:26 [place] % (Auto) Non Destructive Evaluation Manager 10/28/18 07:26 PT 17.4 Sec. (12.2-14.9) H 10/28/18 07:31 INR 1.34 (0.87-1.13) H 10/28/18 07:31 APTT 31.8 Sec. (24.2-36.6) 10/28/18 07:31 POC ABG pH 7.418 (7.35-7.45) 10/28/18 08:24 POC ABG pCO2 32.3 (35-45) L 10/28/18 08:24 POC ABG pO2 78 (80-105) L 10/28/18 08:24 POC ABG HCO3 20.9 (22-26 mml/L) 10/28/18 08:24 POC ABG Total CO2 22 (23-27mmol/L) 10/28/18 08:24 POC ABG O2 Sat 96 10/28/18 08:24 POC ABG Base Excess -4 ((-2) - (+3)mmol/L) 10/28/18 08:24 21 % 10/28/18 08:24 Sodium 140 mmol/L (137-145) 10/28/18 07:26 Potassium 5.8 mmol/L (3.6-5.0) H 10/28/18 07:26 Chloride 98.3 mmol/L (98-107) 10/28/18 07:26 Carbon Dioxide 21 mmol/L (22-30) L 10/28/18 07:26 27 mmol/L 10/28/18 07:26 BUN 86 mg/dL (9-20) H 10/28/18 07:26 13.1 mg/dL (0.8-1.5) H 10/28/18 07:26 Estimated GFR 5 ml/min 10/28/18 07:26 7 % 10/28/18 07:26 Glucose 106 mg/dL (75-100) H 10/28/18 07:26 Calcium 9.4 mg/dL (8.4-10.2) 10/28/18 07:26 0.60 mg/dL (0.1-1.2) 10/28/18 07:26 AST 14 units/L (5-40) 10/28/18 07:26 ALT 13 units/L (7-56) 10/28/18 07:26 68 units/L (35-129) 10/28/18 07:26 NT-Pro-B Natriuret Pep 918000 pg/mL (0-450) H 10/28/18 07:31 7.1 g/dL (6.3-8.2) 10/28/18 07:26 3.3 g/dL (3.9-5) L 10/28/18 07:26 0.9 % 10/28/18 07:26 Assessment and Plan Assessment and plan: Patient is a 48 yo man with a history of hypertension, CHF, Dilated cardiomyopathy, EF 30-35%, NSVT, chronically elevated troponins, GERD, PKD, ESRD on TTh, hypothyroidism, AOCD, chronic anemia, recurrent ascities requiring frequent paracentesis, and poor medical compliance presents to the ED with complaints of shortness of breath, orthopena and tense abdomen. He denied any chest pain, nausea, vomiting, diarrhea or fever. He reports compliance with dialysis but at first gave the wrong dialysis center to the ED doctor. He is unable to give me any information about his PO fluid intake but states that he has ecurrent paracenesis but in the last two months has had to come to the hospital due to increase abdominal girth just a few days prior. He reports that his symptoms stared following his blood transfusion a year ago and also hernia surgery and there has been no diagnosis to why he has the ascites. In the ED he was noted to be hypoxic and also with hyperkalemia Acute congestive heart failure presumed systolic Acute Hypoxic Respiratory failure secondary to congestion Non ischemic Cardiomyopathy EF 35-40% 03/15 Moderate Pulmonary Hypertension Hypertensive Urgency Secondary to Renal disease ESRD Hyperkalemia Anemia of chronic disease Recurrent Ascities Abdominal pain/Peritoneal irritation secondary to Ascetics Secondary coagulopathy Dilated Atrium Right leg anterior griffin quarter size erosion, Left griffin nickel size erosin, bilateral leg papules nodules anterior griffin Plan Admit to telemetry, can down grade if no ectopy in 24 hrs Kayxalate given in the ED, recheck K Change renal consult to Dr Mcdaniel group-Pt known to them GI consult per patient request US guided therapeutic and diagnostic paracentesis Wound care consult On Discharge, encourage continued follow up with Cardiology also Dietitian consult Case management consult secondary to readmit O2 Therapy and wean as tolerated Duonebs DVT/GI prophy Plan of care discussed with the patient in detail and he verbalized understanding. UNABLE TO GET LIST OF HOME MEDS, PATIENT CLAIMS HE ONLY TAKES CLONIDINE Advance Directives: Yes Plan of care discussed with patient/family: Yes
[2018-10-28] MEDS ORDERED: PROVENTIL IH PRN (10:53)
[2018-10-28] MEDS ORDERED: ZOFRAN IV PRN (10:53)
[2018-10-28] MEDS ORDERED: TYLENOL PO PRN (10:53)
[2018-10-28] MEDS ORDERED: SODIUM CHLORIDE FLUSH SYRINGE 10 ML IV PRN (10:53)
[2018-10-28] MEDS ORDERED: BABY ASPIRIN PO ONE (10:55)
[2018-10-28] MEDS ORDERED: APRESOLINE IV PRN (11:24)
[2018-10-28] MEDS ORDERED: HEPARIN SUB-Q SCH (11:30)
[2018-10-28] MEDS ORDERED: APRESOLINE ONE (12:01)
[2018-10-28] MEDS: DUONEB *Not for PRN Use IH SCH ×2 (13:31→20:59)
[2018-10-28] MEDS: HEPARIN SUB-Q SCH ×2 (15:17→21:14)
[2018-10-28] MEDS: APRESOLINE PO SCH ×2 (15:18→21:01)
--- NOTE | 2018-10-28 15:56 | Progress Note ---
Assessment and Plan - Patient Problems (1) ESRD (end stage renal disease) on dialysis Current Visit: Yes Status: Chronic Plan to address problem: ESRD on hemodialysis -access: Left arm AVF - will initiate Ultrafiltration . (2) Acute exacerbation of CHF (congestive heart failure) Current Visit: No Status: Acute Qualifiers: Heart failure type: unspecified Qualified Code(s): I50.9 - Heart failure, unspecified Plan to address problem: Acute chronic systolic CHF - I reviewed Echocardiogram with EF : 30% - Will continue ultrafiltration in HD. (3) Anemia in chronic kidney disease Current Visit: No Status: Acute Plan to address problem: Moderate Anemia Hb: 10g/dl etiology 2/2 CKD Monitor CBC. (4) Hyperkalemia Current Visit: Yes Status: Acute Plan to address problem: Hyperkalemia - Will intiate hemodialysis - K : 5.8 Subjective Interval history: 48 year old with medical history signficant for HTN, Congestive heart failure , Bilateral lower extremity edema admitted for paracentesis procedure. He is very short of breath also with abdominal distension and extensive lower extremity edema. He has orthpnea or PND symptoms. He denies any fevers or chills. He has cough. He denies any abdominal pain. He denies any nausea , vomitting or diarrhoea. Objective - Vital Signs Vital signs: Vital Signs - 12hr 10/28/18 10/28/18 10/28/18 06:38 06:40 06:46 Temperature 97.8 F Pulse Rate 77 67 64 Pulse Rate [ Anterior Bilateral Throughout] Respiratory 14 22 15 Rate Respiratory Rate [Anterior Bilateral Throughout] Blood Pressure 164/94 164/94 Blood Pressure 164/94 [Right] O2 Sat by Pulse 96 99 Oximetry 10/28/18 10/28/18 10/28/18 06:50 07:00 07:16 Temperature Pulse Rate 60 72 Pulse Rate [ Anterior Bilateral Throughout] Respiratory 22 14 16 Rate Respiratory Rate [Anterior Bilateral Throughout] Blood Pressure Blood Pressure [Right] O2 Sat by Pulse 96 100 97 Oximetry 10/28/18 10/28/18 10/28/18 07:30 07:46 08:00 Temperature Pulse Rate 61 62 66 Pulse Rate [ Anterior Bilateral Throughout] Respiratory 23 10 L 14 Rate Respiratory Rate [Anterior Bilateral Throughout] Blood Pressure 171/100 171/100 171/100 Blood Pressure [Right] O2 Sat by Pulse 100 97 98 Oximetry 10/28/18 10/28/18 10/28/18 08:15 08:22 08:31 Temperature Pulse Rate 62 Pulse Rate [ Anterior Bilateral Throughout] Respiratory 20 14 Rate Respiratory Rate [Anterior Bilateral Throughout] Blood Pressure 180/94 Blood Pressure 174/101 [Right] O2 Sat by Pulse 96 99 Oximetry 10/28/18 10/28/18 10/28/18 08:45 09:01 09:15 Temperature Pulse Rate Pulse Rate [ Anterior Bilateral Throughout] Respiratory 9 L 16 Rate Respiratory Rate [Anterior Bilateral Throughout] Blood Pressure 180/94 186/104 Blood Pressure [Right] O2 Sat by Pulse 97 94 97 Oximetry 10/28/18 10/28/18 10/28/18 09:31 09:45 10:01 Temperature Pulse Rate Pulse Rate [ Anterior Bilateral Throughout] Respiratory Rate Respiratory Rate [Anterior Bilateral Throughout] Blood Pressure 183/103 177/100 Blood Pressure [Right] O2 Sat by Pulse 95 91 93 Oximetry 10/28/18 10/28/18 10/28/18 10:15 10:31 10:45 Temperature Pulse Rate Pulse Rate [ Anterior Bilateral Throughout] Respiratory Rate Respiratory Rate [Anterior Bilateral Throughout] Blood Pressure 186/105 186/105 Blood Pressure [Right] O2 Sat by Pulse 93 96 97 Oximetry 10/28/18 10/28/18 10/28/18 11:01 11:15 12:00 Temperature Pulse Rate 78 Pulse Rate [ Anterior Bilateral Throughout] Respiratory Rate Respiratory Rate [Anterior Bilateral Throughout] Blood Pressure 196/105 196/105 Blood Pressure [Right] O2 Sat by Pulse 95 92 Oximetry 10/28/18 10/28/18 10/28/18 12:01 12:15 13:33 Temperature Pulse Rate Pulse Rate [ 77 Anterior Bilateral Throughout] Respiratory Rate Respiratory 19 Rate [Anterior Bilateral Throughout] Blood Pressure 182/105 Blood Pressure [Right] O2 Sat by Pulse 96 98 Oximetry - General Appearance General appearance: well-developed, well-nourished, appears stated age EENT: ATNC, PERRL, mucous membranes moist Neck: no JVD Respiratory: Present: Clear to Ascultation Cardiology: regular, S1S2 Gastrointestinal: normal, normoactive bowel sounds Integumentary: rash, chronic venous stasis, other (edema ) Neurologic: alert and oriented x3, CN 3-12 intact Psychiatric: mood/affect appropriate - Lab 10/28/18 07:26 10/28/18 15:05 Most recent lab results Calcium 9.4 mg/dL (8.4-10.2) 10/28/18 07:26 - Imaging Chest x-ray: image reviewed (I reviewed CXR with bilateral patchy opacities. ) Medications & Allergies - Medications Allergies/Adverse Reactions: Allergies labetalol Allergy (Verified 10/16/18 15:22) Vomiting pt also reports drastic drop in HR polystyrene sulfonate [From Kayexalate] Allergy (Verified 10/16/18 13:24) Unknown tramadol [From Ultram] Adverse Reaction (Verified 03/05/18 15:30) Dizziness Home Medications: Home Medications Medication Instructions Recorded Confirmed Last Taken Type cloNIDine [Catapres] 0.2 mg PO BID #60 tablet 09/04/18 10/16/18 10/16/18 06:00 Rx Active Medications: Generic Name Dose Route Start Last Admin Trade Name Freq PRN Reason Stop Dose Admin Acetaminophen 650 mg 10/28/18 10:53 Tylenol PO Q4H PRN Pain MILD(1-3)/Fever >100.5/SWAIN Albuterol 2.5 mg 10/28/18 10:53 Proventil IH Q4HRT PRN Shortness Of Breath Albuterol/Ipratropium 1 ampul 10/28/18 14:00 10/28/18 13:31 Duoneb *Not For Prn Use* IH 1 ampul Q6HRT FOSTER Administration Clonidine HCl 0.2 mg 10/28/18 22:00 Catapres PO BID FOSTER Clonidine HCl 0.2 mg 10/28/18 16:00 Catapres PO NOW FOSTER Famotidine 10 mg 10/28/18 22:00 Pepcid PO BID FOSTER Heparin Sodium (Porcine) 5,000 unit 10/28/18 12:00 10/28/18 15:17 Heparin SUB-Q Not Given Q8H FOSTER Hydralazine HCl 10 mg 10/28/18 11:24 10/28/18 12:00 Apresoline IV 10 mg Q4HR PRN Administration Hypertension Hydralazine HCl 100 mg 10/28/18 14:00 10/28/18 15:18 Apresoline PO 100 mg TID FOSTER Administration Sodium Chloride 100 mls @ 999 mls/hr 10/28/18 10:31 Nacl 0.9% IV JULIA PRN Hypotension Ondansetron HCl 4 mg 10/28/18 10:53 Zofran IV Q8H PRN Nausea And Vomiting Senna 8.6 mg 10/28/18 22:00 Senokot PO Q12HR FOSTER Sodium Chloride 10 ml 10/28/18 22:00 Sodium Chloride Flush Syringe 10 Ml IV BID FOSTER Sodium Chloride 10 ml 10/28/18 10:53 Sodium Chloride Flush Syringe 10 Ml IV PRN PRN LINE FLUSH
[2018-10-28] MEDS ORDERED: CATAPRES PO SCH (16:00)
--- NOTE | 2018-10-28 16:14 | Gastroenterology Consultation ---
History of Present Illness - Reason for Consult Consult date: 10/28/18 recurrent ascites Requesting physician: ANALISA VIVEROS - History of Present Illness This is a 48 yo male with pmh of HTN, hypothyroidism, CHF, chronic anemia, chronic recurrent ascites requiring frequent paracentesis, ESRD on HD (frequently noncompliant with dialysis) admitted overnight for SOB and heart failure. Patient is known to our service and sees Dr. Sanchez. He had prior work up for ascites including US, paracentesis, doppler U/S negative and etiology thought to be 2/2 CHF and ESRD, not due to liver disease. He has outpatient therapeutic paracentesis schedule on Monday. He feels his abdomen distended and full. No other GI complaints besides mild constipation and hemorrhoids. Past History Past Medical History: ESRD, GERD, heart failure Social history: full code Family history: hypertension Medications and Allergies Allergies Allergy/AdvReac Type Severity Reaction Status Date / Time labetalol Allergy Vomiting Verified 10/16/18 15:22 polystyrene sulfonate Allergy Unknown Verified 10/16/18 13:24 [From Kayexalate] tramadol [From Ultram] AdvReac Dizziness Verified 03/05/18 15:30 Home Medications Medication Instructions Recorded Confirmed Last Taken Type cloNIDine [Catapres] 0.2 mg PO BID #60 tablet 09/04/18 10/16/18 10/16/18 06:00 Rx Active Meds: Active Medications Acetaminophen (Tylenol) 650 mg PO Q4H PRN PRN Reason: Pain MILD(1-3)/Fever >100.5/SWAIN Albuterol (Proventil) 2.5 mg IH Q4HRT PRN PRN Reason: Shortness Of Breath Albuterol/Ipratropium (Duoneb *Not For Prn Use*) 1 ampul IH Q6HRT [facility] Last Admin: 10/28/18 13:31 Dose: 1 ampul Documented by: Clonidine HCl (Catapres) 0.2 mg PO BID FOSTER Clonidine HCl (Catapres) 0.2 mg PO NOW FOSTER Famotidine (Pepcid) 10 mg PO BID [facility] Heparin Sodium (Porcine) (Heparin) 5,000 unit SUB-Q Q8H [facility] Last Admin: 10/28/18 15:17 Dose: Not Given Documented by: Hydralazine HCl (Apresoline) 10 mg IV Q4HR PRN PRN Reason: Hypertension Last Admin: 10/28/18 12:00 Dose: 10 mg Documented by: Hydralazine HCl (Apresoline) 100 mg PO TID FOSTER Last Admin: 10/28/18 15:18 Dose: 100 mg Documented by: Sodium Chloride (Nacl 0.9%) 100 mls @ 999 mls/hr IV JULIA PRN PRN Reason: Hypotension Ondansetron HCl (Zofran) 4 mg IV Q8H PRN PRN Reason: Nausea And Vomiting Senna (Senokot) 8.6 mg PO Q12HR [facility] Sodium Chloride (Sodium Chloride Flush Syringe 10 Ml) 10 ml IV BID FOSTER Sodium Chloride (Sodium Chloride Flush Syringe 10 Ml) 10 ml IV PRN PRN PRN Reason: LINE FLUSH Review of Systems - Review of Systems All systems: negative Constitutional: no weight loss, no weight gain, no fever Cardiovascular: shortness of breath Respiratory: shortness of breath Gastrointestinal: constipation, no abdominal pain, no nausea, no vomiting, no diarrhea Integumentary: no jaundice Hematologic/Lymphatic: no easy bruising Exam - Constitutional Vital Signs: Temp Pulse Resp BP Pulse Ox 97.6 F 71 20 180/94 93 10/28/18 15:53 10/28/18 15:53 10/28/18 15:53 10/28/18 15:53 10/28/18 15:53 General appearance: no acute distress, well-nourished - EENT Eyes: EOM intact ENT: hearing intact, clear oral mucosa, dentition normal - Neck Neck: supple, normal ROM, no masses or JVD - Respiratory Respiratory effort: normal Respiratory: bilateral: diminished - Breasts Breasts: deferred - Cardiovascular Rhythm: regular Heart Sounds: Present: S1 & S2. Absent: gallop, rub Extremities: pulses intact, No edema - Gastrointestinal General gastrointestinal: Present: soft, non-tender, distended, normal bowel sounds - Integumentary Integumentary: Present: clear, warm, dry - Neurologic Neurological: alert and oriented x3 - Psychiatric Psychiatric: appropriate mood/affect, intact judgment & insight, memory intact - Labs CBC & Chem 7: 10/28/18 07:26 10/28/18 15:05 Lab Results: Laboratory Results - last 24 hr 10/28/18 10/28/18 10/28/18 07:26 07:26 07:31 WBC 5.6 RBC 3.39 L Hgb 10.0 L Hct 30.7 L MCV 91 MCH 29 MCHC 32 RDW 19.6 H Plt Count 179 Ceiba % (Auto) Power Cleaner Operator Add Manual Diff Complete Total Counted 100 Seg Neuts % (Manual) 66.0 Band Neutrophils % 0 Lymphocytes % (Manual) 14.0 Reactive Lymphs % (Man) 1.0 Monocytes % (Manual) 12.0 H Eosinophils % (Manual) 3.0 Basophils % (Manual) 4.0 H Metamyelocytes % 0 Myelocytes % 0 Promyelocytes % 0 Blast Cells % 0 Nucleated RBC % Not Reportable Seg Neutrophils # Man 3.7 Band Neutrophils # 0.0 Lymphocytes # (Manual) 0.8 L Abs React Lymphs (Man) 0.1 Monocytes # (Manual) 0.7 Eosinophils # (Manual) 0.2 Basophils # (Manual) 0.2 H Metamyelocytes # 0.0 Myelocytes # 0.0 Promyelocytes # 0.0 Blast Cells # 0.0 WBC Morphology Not Reportable Hypersegmented Neuts Not Reportable Hyposegmented Neuts Not Reportable Hypogranular Neuts Not Reportable Smudge Cells Not Reportable Toxic Granulation Not Reportable Toxic Vacuolation Not Reportable Dohle Bodies Not Reportable Pelger-Huet Anomaly Not Reportable Vin Rods Not Reportable Platelet Estimate Consistent w auto Clumped Platelets Not Reportable Plt Clumps, EDTA Not Reportable Large Platelets Not Reportable Giant Platelets Not Reportable Platelet Satelliting Not Reportable Plt Morphology Comment Not Reportable RBC Morphology Not Reportable Dimorphic RBCs Not Reportable Polychromasia Not Reportable Hypochromasia Not Reportable Poikilocytosis Not Reportable Anisocytosis 1+ Microcytosis Not Reportable Macrocytosis Not Reportable Spherocytes Not Reportable Pappenheimer Bodies Not Reportable Sickle Cells Not Reportable Target Cells Not Reportable Tear Drop Cells Not Reportable Ovalocytes Not Reportable Helmet Cells Not Reportable Lerma-Barrett Bodies Not Reportable [place] Rings Not Reportable [place] Cells Not Reportable Bite Cells Not Reportable Crenated Cell Not Reportable Elliptocytes Not Reportable Acanthocytes (Spur) Not Reportable Rouleaux Not Reportable Hemoglobin C Crystals Not Reportable Schistocytes Not Reportable Malaria parasites Not Reportable Charbel Bodies Not Reportable Hem Pathologist Commnt No PT INR APTT POC ABG pH POC ABG pCO2 POC ABG pO2 POC ABG HCO3 POC ABG Total CO2 POC ABG O2 Sat POC ABG Base Excess FiO2 Sodium 140 Potassium 5.8 H Chloride 98.3 Carbon Dioxide 21 L Anion Gap 27 BUN 86 H Creatinine 13.1 H Estimated GFR 5 BUN/Creatinine Ratio 7 Glucose 106 H Calcium 9.4 Total Bilirubin 0.60 AST 14 ALT 13 Alkaline Phosphatase 68 NT-Pro-B Natriuret Pep 952082 H Total Protein 7.1 Albumin 3.3 L Albumin/Globulin Ratio 0.9 10/28/18 10/28/18 10/28/18 07:31 08:24 15:05 WBC RBC Hgb Hct MCV MCH MCHC RDW Plt Count Ceiba % (Auto) Add Manual Diff Total Counted Seg Neuts % (Manual) Band Neutrophils % Lymphocytes % (Manual) Reactive Lymphs % (Man) Monocytes % (Manual) Eosinophils % (Manual) Basophils % (Manual) Metamyelocytes % Myelocytes % Promyelocytes % Blast Cells % Nucleated RBC % Seg Neutrophils # Man Band Neutrophils # Lymphocytes # (Manual) Abs React Lymphs (Man) Monocytes # (Manual) Eosinophils # (Manual) Basophils # (Manual) Metamyelocytes # Myelocytes # Promyelocytes # Blast Cells # WBC Morphology Hypersegmented Neuts Hyposegmented Neuts Hypogranular Neuts Smudge Cells Toxic Granulation Toxic Vacuolation Dohle Bodies Pelger-Huet Anomaly Vin Rods Platelet Estimate Clumped Platelets Plt Clumps, EDTA Large Platelets Giant Platelets Platelet Satelliting Plt Morphology Comment RBC Morphology Dimorphic RBCs Polychromasia Hypochromasia Poikilocytosis Anisocytosis Microcytosis Macrocytosis Spherocytes Pappenheimer Bodies Sickle Cells Target Cells Tear Drop Cells Ovalocytes Helmet Cells Lerma-Barrett Bodies [place] Rings Ninole Cells Bite Cells Crenated Cell Elliptocytes Acanthocytes (Spur) Rouleaux Hemoglobin C Crystals Schistocytes Malaria parasites Charbel Bodies Hem Pathologist Commnt PT 17.4 H INR 1.34 H APTT 31.8 POC ABG pH 7.418 POC ABG pCO2 32.3 L POC ABG pO2 78 L POC ABG HCO3 20.9 POC ABG Total CO2 22 POC ABG O2 Sat 96 POC ABG Base Excess -4 FiO2 21 Sodium Potassium 5.8 H Chloride Carbon Dioxide Anion Gap BUN Creatinine Estimated GFR BUN/Creatinine Ratio Glucose Calcium Total Bilirubin AST ALT Alkaline Phosphatase NT-Pro-B Natriuret Pep Total Protein Albumin Albumin/Globulin Ratio Assessment and Plan 1.recurrent ascites -LFTs WNL -He is well known to our service and has undergone an extensive prior workup of ascites with (ultrasound, doppler u/s and paracentesis with SAAG >1.3) etiology thought to be 2/2 CHF and ESRD- no evidence of liver disease -planned for paracentesis tomorrow. Rec: -management for heart failure per primary team. -recommend LVP PRN -continue supportive care -need for compliance with dialysis discussed with patient -patient to f/u in clinic upon discharge -GI will sign off, please call if needed
[2018-10-28] MEDS: MORPHINE IV PRN ×2 (17:10→22:31)
[2018-10-28] MEDS ORDERED: HALFPRIN EC PO ONE (21:00)
[2018-10-28] MEDS ORDERED: BABY ASPIRIN ONE (21:07)
[2018-10-28] MEDS ORDERED: ASPIRIN ONE (21:09)
[2018-10-28] MEDS ORDERED: NORCO 5/325 PO PRN (22:18)
[2018-10-28] MEDS: PEPCID PO SCH (22:31)
[2018-10-28] MEDS: SENOKOT PO SCH (22:31)
[2018-10-28] MEDS: SODIUM CHLORIDE FLUSH SYRINGE 10 ML IV SCH (22:51)
[2018-10-29] MEDS: DUONEB *Not for PRN Use IH SCH ×3 (01:02→14:45)
[2018-10-29] MEDS: CATAPRES PO SCH ×2 (02:13→15:08)
[2018-10-29] MEDS: HEPARIN SUB-Q SCH ×2 (03:59→15:09)
[2018-10-29 05:18] LABS: Hemoglobin 9.8 gm/dl (11.8-15.2); Mean Corpuscular HGB Conc 33 % (32-34); Mean Corpuscular Volume 89 fl (84-94); Platelet Count 207 K/mm3 (140-440); Red Blood Count 3.37 M/mm3 (3.65-5.03); Red Cell Distribution Width 19.4 % (13.2-15.2)
[2018-10-29 05:27] LABS: INR 1.23 (0.87-1.13)
[2018-10-29 05:40] LABS: Albumin 3.2 g/dL (3.9-5); Calcium 9.5 mg/dL (8.4-10.2)
[2018-10-29 06:12] LABS: Band Neutrophils # (Manual) 0.1 K/mm3; Total Cells Counted 100
[2018-10-29 06:13] LABS: Anisocytosis 1+; Ovalocytes Few
[2018-10-29] MEDS ORDERED: LOVENOX SUB-Q SCH (10:00)
--- NOTE | 2018-10-29 12:12 | Progress Note ---
Assessment and Plan Assessment and plan: --Acute on chronic systolic congestive heart failure: --Acute Hypoxic Respiratory failure secondary to fluid overload Multi factorial --Non ischemic Cardiomyopathy EF 35-40% 03/15 --Moderate Pulmonary Hypertension --Hypertensive Urgency Secondary to Renal disease --ESRD: --Hyperkalemia --Anemia of chronic disease --Recurrent Ascities: s/p multiple ,recurrent paracentesis --Secondary coagulopathy --Magan LE ulcers Hospitalist Physical - Constitutional Vitals: Temp Pulse Resp BP Pulse Ox 98.3 F 74 16 183/104 97 10/29/18 09:05 10/29/18 11:41 10/29/18 09:05 10/29/18 11:41 10/29/18 08:34 Results - Labs CBC & Chem 7: 10/29/18 04:11 10/29/18 04:11 Labs: Laboratory Last Values WBC 6.3 K/mm3 (4.5-11.0) 10/29/18 04:11 RBC 3.37 M/mm3 (3.65-5.03) L 10/29/18 04:11 Hgb 9.8 gm/dl (11.8-15.2) L 10/29/18 04:11 Hct 30.0 % (35.5-45.6) L 10/29/18 04:11 MCV 89 fl (84-94) 10/29/18 04:11 MCH 29 pg (28-32) 10/29/18 04:11 MCHC 33 % (32-34) 10/29/18 04:11 RDW 19.4 % (13.2-15.2) H 10/29/18 04:11 Plt Count 207 K/mm3 (140-440) 10/29/18 04:11 Blount % (Auto) Limb Driver 10/29/18 04:11 Add Manual Diff Complete 10/29/18 04:11 Total Counted 100 10/29/18 04:11 Seg Neuts % (Manual) 67.0 % (40.0-70.0) 10/29/18 04:11 2.0 % 10/29/18 04:11 11.0 % (13.4-35.0) L 10/29/18 04:11 Reactive Lymphs % (Man) 0 % 10/29/18 04:11 16.0 % (0.0-7.3) H 10/29/18 04:11 3.0 % (0.0-4.3) 10/29/18 04:11 1.0 % (0.0-1.8) 10/29/18 04:11 0 % 10/29/18 04:11 0 % 10/29/18 04:11 0 % 10/29/18 04:11 0 % 10/29/18 04:11 Nucleated RBC % Not Reportable 10/29/18 04:11 Seg Neutrophils # Man 4.2 K/mm3 (1.8-7.7) 10/29/18 04:11 Band Neutrophils # 0.1 K/mm3 10/29/18 04:11 0.7 K/mm3 (1.2-5.4) L 10/29/18 04:11 Abs React Lymphs (Man) 0.0 K/mm3 10/29/18 04:11 1.0 K/mm3 (0.0-0.8) H 10/29/18 04:11 0.2 K/mm3 (0.0-0.4) 10/29/18 04:11 0.1 K/mm3 (0.0-0.1) 10/29/18 04:11 0.0 K/mm3 10/29/18 04:11 0.0 K/mm3 10/29/18 04:11 0.0 K/mm3 10/29/18 04:11 Blast Cells # 0.0 K/mm3 10/29/18 04:11 WBC Morphology Not Reportable 10/29/18 04:11 Hypersegmented Neuts Not Reportable 10/29/18 04:11 Hyposegmented Neuts Not Reportable 10/29/18 04:11 Hypogranular Neuts Not Reportable 10/29/18 04:11 Not Reportable 10/29/18 04:11 Not Reportable 10/29/18 04:11 Not Reportable 10/29/18 04:11 Not Reportable 10/29/18 04:11 Not Reportable 10/29/18 04:11 Not Reportable 10/29/18 04:11 Appears normal 10/29/18 04:11 Not Reportable 10/29/18 04:11 Plt Clumps, EDTA Not Reportable 10/29/18 04:11 Not Reportable 10/29/18 04:11 Not Reportable 10/29/18 04:11 Not Reportable 10/29/18 04:11 Plt Morphology Comment Not Reportable 10/29/18 04:11 RBC Morphology Not Reportable 10/29/18 04:11 Dimorphic RBCs Not Reportable 10/29/18 04:11 Not Reportable 10/29/18 04:11 Not Reportable 10/29/18 04:11 Not Reportable 10/29/18 04:11 1+ 10/29/18 04:11 Not Reportable 10/29/18 04:11 Not Reportable 10/29/18 04:11 Not Reportable 10/29/18 04:11 Not Reportable 10/29/18 04:11 Not Reportable 10/29/18 04:11 Not Reportable 10/29/18 04:11 Not Reportable 10/29/18 04:11 Few 10/29/18 04:11 Not Reportable 10/29/18 04:11 Not Reportable 10/29/18 04:11 Not Reportable 10/29/18 04:11 Not Reportable 10/29/18 04:11 Not Reportable 10/29/18 04:11 Not Reportable 10/29/18 04:11 Not Reportable 10/29/18 04:11 Acanthocytes (Spur) Not Reportable 10/29/18 04:11 Rouleaux Not Reportable 10/29/18 04:11 Not Reportable 10/29/18 04:11 Not Reportable 10/29/18 04:11 Not Reportable 10/29/18 04:11 Not Reportable 10/29/18 04:11 Hem Pathologist Commnt No 10/29/18 04:11 PT 16.3 Sec. (12.2-14.9) H 10/29/18 04:11 INR 1.23 (0.87-1.13) H 10/29/18 04:11 APTT 31.8 Sec. (24.2-36.6) 10/28/18 07:31 POC ABG pH 7.418 (7.35-7.45) 10/28/18 08:24 POC ABG pCO2 32.3 (35-45) L 10/28/18 08:24 POC ABG pO2 78 (80-105) L 10/28/18 08:24 POC ABG HCO3 20.9 (22-26 mml/L) 10/28/18 08:24 POC ABG Total CO2 22 (23-27mmol/L) 10/28/18 08:24 POC ABG O2 Sat 96 10/28/18 08:24 POC ABG Base Excess -4 ((-2) - (+3)mmol/L) 10/28/18 08:24 21 % 10/28/18 08:24 Sodium 139 mmol/L (137-145) 10/29/18 04:11 Potassium 5.3 mmol/L (3.6-5.0) H 10/29/18 04:11 Chloride 97.0 mmol/L (98-107) L 10/29/18 04:11 Carbon Dioxide 23 mmol/L (22-30) 10/29/18 04:11 24 mmol/L 10/29/18 04:11 BUN 60 mg/dL (9-20) H 10/29/18 04:11 10.1 mg/dL (0.8-1.5) H 10/29/18 04:11 Estimated GFR 7 ml/min 10/29/18 04:11 6 % 10/29/18 04:11 Glucose 127 mg/dL (75-100) H 10/29/18 04:11 Calcium 9.5 mg/dL (8.4-10.2) 10/29/18 04:11 0.50 mg/dL (0.1-1.2) 10/29/18 04:11 AST 19 units/L (5-40) 10/29/18 04:11 ALT 12 units/L (7-56) 10/29/18 04:11 68 units/L (35-129) 10/29/18 04:11 NT-Pro-B Natriuret Pep [id number] pg/mL (0-450) H 10/28/18 07:31 6.9 g/dL (6.3-8.2) 10/29/18 04:11 3.2 g/dL (3.9-5) L 10/29/18 04:11 0.9 % 10/29/18 04:11 Active Medications - Current Medications Current Medications: Generic Name Dose Route Start Last Admin Trade Name Freq PRN Reason Stop Dose Admin Acetaminophen 650 mg 10/28/18 10:53 10/28/18 21:00 Tylenol PO 650 mg Q4H PRN Administration Pain MILD(1-3)/Fever >100.5/SWAIN Acetaminophen/Hydrocodone Bitart 1 each 10/28/18 22:18 10/29/18 02:12 [place]etta 5/325 PO 1 each Q4H PRN Administration Pain, Moderate (4-6) Albuterol 2.5 mg 10/28/18 10:53 Proventil IH Q4HRT PRN Shortness Of Breath Albuterol/Ipratropium 1 ampul 10/28/18 14:00 10/29/18 08:33 Duoneb *Not For Prn Use* IH 1 ampul Q6HRT FOSTER Administration Clonidine HCl 0.2 mg 10/28/18 22:00 10/29/18 02:13 Catapres PO Not Given BID FOSTER Famotidine 10 mg 10/28/18 22:00 10/28/18 22:31 Pepcid PO 10 mg BID FOSTER Administration Heparin Sodium (Porcine) 5,000 unit 10/28/18 12:00 10/29/18 03:59 Heparin SUB-Q Not Given Q8H FOSTER Hydralazine HCl 10 mg 10/28/18 11:24 10/28/18 12:00 Apresoline IV 10 mg Q4HR PRN Administration Hypertension Hydralazine HCl 100 mg 10/28/18 14:00 10/28/18 21:01 Apresoline PO 100 mg TID FOSTER Administration Sodium Chloride 100 mls @ 999 mls/hr 10/28/18 10:31 Nacl 0.9% IV JULIA PRN Hypotension Morphine Sulfate 2 mg 10/28/18 16:49 10/28/18 22:31 Morphine IV 2 mg Q4H PRN Administration Pain , Severe (7-10) Ondansetron HCl 4 mg 10/28/18 10:53 Zofran IV Q8H PRN Nausea And Vomiting Senna 8.6 mg 10/28/18 22:00 10/28/18 22:31 Senokot PO 8.6 mg Q12HR FOSTER Administration Sodium Chloride 10 ml 10/28/18 22:00 10/28/18 22:51 Sodium Chloride Flush Syringe 10 Ml IV 10 ml BID FOSTER Administration Sodium Chloride 10 ml 10/28/18 10:53 Sodium Chloride Flush Syringe 10 Ml IV PRN PRN LINE FLUSH Nutrition/Malnutrition Assess - Dietary Evaluation Nutrition/Malnutrition Findings: Nutrition Notes Start: 10/29/18 12:0 6 Freq: Status: Active Protocol: Document 10/29/18 12:06 LP (Rec: 10/29/18 12:08 LP [id number]) Nutrition Notes Need for Assessment generated from: MD Order Initial or Follow up Brief Note Current Diagnosis CKD (stage V CKD),Diabetes, Hypertension Other Pertinent Diagnosis on HD, Pneu Current Diet Cardiac Subjective/Other Information Consult for oral supplement. Pt states eating well [employer] and denies wt loss. Pt would like supplement. Nutrition Intervention Add Supplement/Snack (indicate name/kcal Nepro Vanilla Daily /protein ) Provides kCal: 425 Provides Protein (gm) 19 Revisit per MD consult or patient Sign Off request:
--- NOTE | 2018-10-29 12:33 | Progress Note ---
Assessment and Plan Impression * End-stage renal disease on maintenance hemodialysis * Fluid overload * Hyperkalemia * Ascites * Hypertension * Noncompliance Recommendations * Patient serum potassium came down to 5.3 and this morning after his dialysis yesterday * He had another 2 hour treatment today. Hopefully his hyperkalemia has been corrected * He is clinically still volume overloaded. However does not wish for me to schedule his dialysis treatment here tomorrow. States that he is going to go home after his paracentesis today and go to his clinic tomorrow * Patient undergoes dialysis at [facility] on TTS schedule. He was under the care of Dr. Guo, but states that he had requested to switch to a different physician who he has not seen yet. * Suspect that his ascites is most likely due to under-dialysis Subjective Date of service: 10/29/18 Interval history: Patient seen in the dialysis room. This completed his treatment. However he came off early after 2 hours. Denies any shortness of breath. No nausea or vomiting. Objective - Vital Signs Vital signs: Vital Signs - 12hr 10/29/18 10/29/18 10/29/18 02:19 03:41 03:47 Temperature 98.0 F 98.0 F 98.0 F Pulse Rate 77 78 Pulse Rate [ Anterior Bilateral Throughout] Respiratory 18 20 18 Rate Respiratory Rate [Anterior Bilateral Throughout] Blood Pressure 177/97 172/87 170/70 O2 Sat by Pulse 96 92 Oximetry 10/29/18 10/29/18 10/29/18 05:48 07:20 08:34 Temperature 98.3 F Pulse Rate 66 74 Pulse Rate [ 77 Anterior Bilateral Throughout] Respiratory 16 Rate Respiratory 18 Rate [Anterior Bilateral Throughout] Blood Pressure 170/91 O2 Sat by Pulse 92 97 Oximetry 10/29/18 10/29/18 10/29/18 08:46 09:05 09:23 Temperature 98.3 F Pulse Rate 77 76 Pulse Rate [ 72 Anterior Bilateral Throughout] Respiratory 16 Rate Respiratory 18 Rate [Anterior Bilateral Throughout] Blood Pressure 179/94 177/94 O2 Sat by Pulse Oximetry 10/29/18 10/29/18 10/29/18 09:30 09:45 10:07 Temperature Pulse Rate 75 74 76 Pulse Rate [ Anterior Bilateral Throughout] Respiratory Rate Respiratory Rate [Anterior Bilateral Throughout] Blood Pressure 175/105 170/93 176/91 O2 Sat by Pulse Oximetry 10/29/18 10/29/18 10/29/18 10:15 10:30 10:45 Temperature Pulse Rate 75 77 74 Pulse Rate [ Anterior Bilateral Throughout] Respiratory Rate Respiratory Rate [Anterior Bilateral Throughout] Blood Pressure 178/95 166/102 177/81 O2 Sat by Pulse Oximetry 10/29/18 10/29/18 10/29/18 11:00 11:15 11:41 Temperature Pulse Rate 74 73 74 Pulse Rate [ Anterior Bilateral Throughout] Respiratory Rate Respiratory Rate [Anterior Bilateral Throughout] Blood Pressure 187/108 182/108 183/104 O2 Sat by Pulse Oximetry - General Appearance General appearance: well-developed, well-nourished, appears stated age EENT: PERRL, mucous membranes moist Neck: no JVD, no thyromegaly, no carotid bruit, supple Respiratory: Present: Clear to Ascultation Cardiology: regular, normal heart rate, S1S2, no murmurs Gastrointestinal: normoactive bowel sounds, distended, other (tympanitic to percussion) Integumentary: other (2+ edema. AV fistula in his left upper arm. Good bruit and thrill.) - Lab 10/29/18 04:11 10/29/18 04:11 Most recent lab results Calcium 9.5 mg/dL (8.4-10.2) 10/29/18 04:11 Medications & Allergies - Medications Allergies/Adverse Reactions: Allergies labetalol Allergy (Verified 10/16/18 15:22) Vomiting pt also reports drastic drop in HR polystyrene sulfonate [From Kayexalate] Allergy (Verified 10/16/18 13:24) Unknown tramadol [From Ultram] Adverse Reaction (Verified 03/05/18 15:30) Dizziness Home Medications: Home Medications Medication Instructions Recorded Confirmed Last Taken Type cloNIDine [Catapres] 0.2 mg PO BID #60 tablet 09/04/18 10/28/18 10/27/18 Rx Aspirin 325 mg PO PRN 10/28/18 10/28/18 Unknown History Carvedilol 10/28/18 Unknown History Furosemide [Lasix] 20 mg PO QDAY 10/28/18 10/28/18 05/29/18 History Active Medications: Generic Name Dose Route Start Last Admin Trade Name Freq PRN Reason Stop Dose Admin Acetaminophen 650 mg 10/28/18 10:53 10/28/18 21:00 Tylenol PO 650 mg Q4H PRN Administration Pain MILD(1-3)/Fever >100.5/SWAIN Acetaminophen/Hydrocodone Bitart 1 each 10/28/18 22:18 10/29/18 02:12 [place] 5/325 PO 1 each Q4H PRN Administration Pain, Moderate (4-6) Albuterol 2.5 mg 10/28/18 10:53 Proventil IH Q4HRT PRN Shortness Of Breath Albuterol/Ipratropium 1 ampul 10/28/18 14:00 10/29/18 08:33 Duoneb *Not For Prn Use* IH 1 ampul Q6HRT FOSTER Administration Clonidine HCl 0.2 mg 10/28/18 22:00 10/29/18 02:13 Catapres PO Not Given BID FOSTER Famotidine 10 mg 10/28/18 22:00 10/28/18 22:31 Pepcid PO 10 mg BID FOSTER Administration Heparin Sodium (Porcine) 5,000 unit 10/28/18 12:00 10/29/18 03:59 Heparin SUB-Q Not Given Q8H FOSTER Hydralazine HCl 10 mg 10/28/18 11:24 10/28/18 12:00 Apresoline IV 10 mg Q4HR PRN Administration Hypertension Hydralazine HCl 100 mg 10/28/18 14:00 10/28/18 21:01 Apresoline PO 100 mg TID FOSTER Administration Sodium Chloride 100 mls @ 999 mls/hr 10/28/18 10:31 Nacl 0.9% IV JULIA PRN Hypotension Morphine Sulfate 2 mg 10/28/18 16:49 10/28/18 22:31 Morphine IV 2 mg Q4H PRN Administration Pain , Severe (7-10) Ondansetron HCl 4 mg 10/28/18 10:53 Zofran IV Q8H PRN Nausea And Vomiting Senna 8.6 mg 10/28/18 22:00 10/28/18 22:31 Senokot PO 8.6 mg Q12HR FOSTER Administration Sodium Chloride 10 ml 10/28/18 22:00 10/28/18 22:51 Sodium Chloride Flush Syringe 10 Ml IV 10 ml BID FOSTER Administration Sodium Chloride 10 ml 10/28/18 10:53 Sodium Chloride Flush Syringe 10 Ml IV PRN PRN LINE FLUSH
[2018-10-29] MEDS ORDERED: NACL 0.9 (PRIMING MACHINE ONLY DIALYSIS) MC ONE (12:51)
--- NOTE | 2018-10-29 13:10 | Consultation ---
History of Present Illness Consult date: 10/29/18 Consult reason: congestive heart failure History of present illness: Patient is a 48 year old man with frequent hospitalizations. He has a history of hypothyroidism, hypertension, end-stage renal disease on hemodialysis, chronic ascities requiring frequent paracentesis. He also has a dilated non-ischemic cardiomyopathy by non-invasive cardiac stress thallium test eight months ago that documents a normal perfusion scan but a decreased left ventricular systolic function with an ejection fraction 30-35% by echocardiogram. Patient presented to this hospital with shortness of breath, abdominal distention, lower extremity edema admitted with volume overload. Initial labs revealed hyperkalemia, potassium of 5.8. Today his potassium is 5.3 and he is currently undergoing dialysis. He denies chest pain. His ECG is sinus rhythm, LVH with repolarization abnormalities. Past History Past Medical History: CAD, dialysis, heart failure, hypertension, hyperlipidemia, renal failure Past Surgical History: Other (AV GRAFT) Social history: no significant social history, full code Family history: no significant family history Medications and Allergies Allergies Allergy/AdvReac Type Severity Reaction Status Date / Time labetalol Allergy Vomiting Verified 10/16/18 15:22 polystyrene sulfonate Allergy Unknown Verified 10/16/18 13:24 [From Kayexalate] tramadol [From Ultram] AdvReac Dizziness Verified 03/05/18 15:30 Home Medications Medication Instructions Recorded Confirmed Last Taken Type cloNIDine [Catapres] 0.2 mg PO BID #60 tablet 09/04/18 10/28/18 10/27/18 Rx Aspirin 325 mg PO PRN 10/28/18 10/28/18 Unknown History Carvedilol 10/28/18 Unknown History Furosemide [Lasix] 20 mg PO QDAY 10/28/18 10/28/18 05/29/18 History Active Meds: Active Medications Acetaminophen (Tylenol) 650 mg PO Q4H PRN PRN Reason: Pain MILD(1-3)/Fever >100.5/SWAIN Last Admin: 10/28/18 21:00 Dose: 650 mg Documented by: Acetaminophen/Hydrocodone Bitart ([place] 5/325) 1 each PO Q4H PRN PRN Reason: Pain, Moderate (4-6) Last Admin: 10/29/18 02:12 Dose: 1 each Documented by: Albuterol (Proventil) 2.5 mg IH Q4HRT PRN PRN Reason: Shortness Of Breath Albuterol/Ipratropium (Duoneb *Not For Prn Use*) 1 ampul IH Q6HRT [facility] Last Admin: 10/29/18 08:33 Dose: 1 ampul Documented by: Clonidine HCl (Catapres) 0.2 mg PO BID [facility] Last Admin: 10/29/18 02:13 Dose: Not Given Documented by: Famotidine (Pepcid) 10 mg PO BID [facility] Last Admin: 10/28/18 22:31 Dose: 10 mg Documented by: Heparin Sodium (Porcine) (Heparin) 5,000 unit SUB-Q Q8H [facility] Last Admin: 10/29/18 03:59 Dose: Not Given Documented by: Hydralazine HCl (Apresoline) 10 mg IV Q4HR PRN PRN Reason: Hypertension Last Admin: 10/28/18 12:00 Dose: 10 mg Documented by: Hydralazine HCl (Apresoline) 100 mg PO TID [facility] Last Admin: 10/28/18 21:01 Dose: 100 mg Documented by: Sodium Chloride (Nacl 0.9%) 100 mls @ 999 mls/hr IV JULIA PRN PRN Reason: Hypotension Morphine Sulfate (Morphine) 2 mg IV Q4H PRN PRN Reason: Pain , Severe (7-10) Last Admin: 10/28/18 22:31 Dose: 2 mg Documented by: Ondansetron HCl (Zofran) 4 mg IV Q8H PRN PRN Reason: Nausea And Vomiting Senna (Senokot) 8.6 mg PO Q12HR [facility] Last Admin: 10/28/18 22:31 Dose: 8.6 mg Documented by: Sodium Chloride (Sodium Chloride Flush Syringe 10 Ml) 10 ml IV BID [facility] Last Admin: 10/28/18 22:51 Dose: 10 ml Documented by: Sodium Chloride (Sodium Chloride Flush Syringe 10 Ml) 10 ml IV PRN PRN PRN Reason: LINE FLUSH Physical Examination Vital Signs Pulse Resp 77 14 10/28/18 06:38 10/28/18 06:38 General appearance: no acute distress HEENT: Positive: PERRL Cardiac: Positive: Reg Rate and Rhythm Lungs: Positive: Decreased Breath Sounds Neuro: Positive: Grossly Intact Abdomen: Positive: Distended Extremities: Present: edema Results 10/29/18 04:11 10/29/18 04:11 Cardiac Enzymes 10/29/18 Range/Units 04:11 AST 19 (5-40) units/L Coagulation 10/29/18 Range/Units 04:11 PT 16.3 H (12.2-14.9) Sec. INR 1.23 H (0.87-1.13) CBC 10/29/18 Range/Units 04:11 WBC 6.3 (4.5-11.0) K/mm3 RBC 3.37 L (3.65-5.03) M/mm3 Hgb 9.8 L (11.8-15.2) gm/dl Hct 30.0 L (35.5-45.6) % Plt Count 207 (140-440) K/mm3 Comprehensive Metabolic Panel 10/28/18 10/29/18 Range/Units 15:05 04:11 Sodium 139 (137-145) mmol/L Potassium 5.8 H 5.3 H (3.6-5.0) mmol/L Chloride 97.0 L (98-107) mmol/L Carbon Dioxide 23 (22-30) mmol/L BUN 60 H (9-20) mg/dL Creatinine 10.1 H (0.8-1.5) mg/dL Glucose 127 H (75-100) mg/dL Calcium 9.5 (8.4-10.2) mg/dL AST 19 (5-40) units/L ALT 12 (7-56) units/L Alkaline Phosphatase 68 (35-129) units/L Total Protein 6.9 (6.3-8.2) g/dL Albumin 3.2 L (3.9-5) g/dL Assessment and Plan Volume overload Chronic Ascites with frequent paracentesis End-stage renal disease on hemodialysis Nonischemic Cardiomyopathy EF 30-35% by echo 12/2017 no ischemia on MPI 12/2017 Hypertension Hypothyroidism Recommendations: Fluid/sodium restriction. Dialysis for fluid removal. Medical therapy for nonischemic cardiomyopathy.
[2018-10-29 14:23] VITALS: BP 165/92
[2018-10-29] MEDS: PEPCID PO SCH (15:08)
[2018-10-29] MEDS: SENOKOT PO SCH (15:08)
[2018-10-29] MEDS: APRESOLINE PO SCH ×2 (15:09)
[2018-10-29] MEDS: SODIUM CHLORIDE FLUSH SYRINGE 10 ML IV SCH (15:09)
[2018-10-29 15:49] LABS: Total Cells Counted 100 /mm3
--- NOTE | 2018-10-29 16:09 | Discharge Summary ---
Providers - Providers Date of Admission: 10/28/18 10:53 Date of discharge: 10/29/18 Attending physician: DAHLIA MORIN 10/28/18 10:36 Consult to Physician [CONS] Routine Comment: Consulting Provider: JESSIE PERRY Physician Instructions: Reason For Exam: esrd requiring dialysis 10/28/18 10:56 Consult to Dietitian/Nutrition [CONS] Routine Physician Instructions: Reason For Exam: Reason for Consult: Malnutrition 10/28/18 10:57 Consult to Wound/ET Nurse [CONS] Routine Reason For Exam: wound eval 10/28/18 10:59 Consult to Physician [CONS] Routine Comment: Consulting Provider: KALLIE HENDRIX Physician Instructions: Reason For Exam: recurrent ascites 10/29/18 12:06 Consult to Physician [CONS] Routine Comment: Consulting Provider: YELENA JO Physician Instructions: Reason For Exam: ac on chr CHF Primary care physician: [facility], [place] Hospitalization Reason for admission: Worsening shortness of breath Condition: Stable Pertinent studies: CXR Procedures: US guided paracentesis HD per schedule Hospital course: 48 yo male patient with a history of hypertension, CHF, Dilated cardiomyopathy, EF 30-35%, NSVT, chronically elevated troponins, GERD, PKD, ESRD on TTh, hypothyroidism, AOCD, chronic anemia, recurrent ascities requiring frequent paracentesis, and poor medical compliance was admitted through ER with worsening shortness of breath. Patient gives h/o recurrent large volume paracentesis.Symptomatically managed,evaluated by nephrology,received HD per schedule,evaluated by cardiologyand GI ,meds optimises. Patient had US guided paracentesis and removal of 4 lt peritoneal fluid removed,fluid cult negative Today patient is comfortable,no new complaints. Vitals stable.Cleared by cardiology,GI,nephrology and f/u per schedule. Patient stable at discharge Discharge Diagnosis: --Acute on chronic systolic congestive heart failure: --Acute Hypoxic Respiratory failure secondary to fluid overload, resolved --Non ischemic Cardiomyopathy EF 35-40% 03/15 --Moderate Pulmonary Hypertension --Hypertensive Urgency Secondary to Renal disease --ESRD:on HD --Hyperkalemia; resolved --Anemia of chronic disease --Recurrent Ascities: s/p paracentesis,4 lt removed,fluid cult neg --Secondary coagulopathy --[place] LE ulcers Stable at discharge Disposition: DC-01 TO HOME OR SELFCARE Time spent for discharge: 32 min Core Measure Documentation - Palliative Care Palliative Care/ Comfort Measures: Not Applicable - Core Measures Any of the following diagnoses?: heart failure - Heart Failure Discharge Requirements DIANE/ARB for LVSD if EF <40%: No Reason for no DIANE/ARB: Renal impairment Beta lexy at discharge: No Reason for no beta lexy on DC: Allergy or sensitivity Exam - Constitutional Vitals: Temp Pulse Resp BP Pulse Ox 98.3 F 87 16 165/92 97 10/29/18 11:41 10/29/18 14:22 10/29/18 11:41 10/29/18 14:22 10/29/18 08:34 General appearance: Present: no acute distress, well-nourished - EENT Eyes: Present: PERRL, EOM intact - Neck Neck: Present: supple, normal ROM - Respiratory Respiratory effort: normal Respiratory: bilateral: diminished, negative: rales, rhonchi, wheezing - Cardiovascular Rhythm: regular Heart Sounds: Present: S1 & S2 - Extremities Extremities: no ischemia Extremity abnormal: edema - Abdominal General gastrointestinal: Present: soft, non-tender, non-distended - Integumentary Integumentary: Present: clear, warm - Musculoskeletal Musculoskeletal: strength equal bilaterally - Psychiatric Psychiatric: appropriate mood/affect, cooperative - Neurologic Neurologic: CNII-XII intact, moves all extremities Plan Activity: no restrictions Diet: renal Additional Instructions: Follow Renal/hemodialysis per schedule TTS. Low-sodium diet, fluid restriction Follow up with: [facility] MD DEBRA [Primary Care Provider] - 3-5 Days YELENA JO MD [Staff Physician] - 7 Days JAMAL LYNN MD [Staff Physician] - 7 Days KALLIE HENDRIX MD [Staff Physician] - 7 Days Prescriptions: hydrALAZINE [Apresoline TAB] 100 mg PO TID #90 tab cloNIDine [Catapres] 0.2 mg PO BID #60 tablet Furosemide [Lasix TAB] 20 mg PO QDAY #30 tablet
--- NOTE | 2018-10-30 07:26 | Ultrasound Report ---
ULTRASOUND PARACENTESIS HISTORY: Ascites. DESCRIPTION OF PROCEDURE: A time out was performed. Informed consent was obtained. Sterile technique was utilized. Using ultrasound guidance, a 5 [place] centesis needle was advanced into the peritoneal space. There was spontaneous return of blood-tinged fluid. 4.1 L of fluid was drained. 120 cc of fluid was sent to laboratory for analysis. No complications. IMPRESSION: Successful ultrasound-guided paracentesis.
[2018-11-02 09:59] LABS: LDH,Body Fluid 231; Total Protein,Body Fluid 3.3 (15.0-45.0); Triglycerides,Body Fluid 34; pH, Body Fluid 7.7
== END 2018-10-29 18:01 | disposition home or self-care (01) | DRG 291 ==
LOC: ED 06:25 → 4A 10:53
PROVIDERS: ADMIT Internal Medicine; ATTEND Internal Medicine
PROC: 4A033R1 Measurement of Arterial Saturation, Peripheral, Percutaneous Approach (ICD-10-PCS; 2018-10-28)
PROC: 5A1D70Z Performance of Urinary Filtration, Intermittent, Less than 6 Hours Per Day (ICD-10-PCS; 2018-10-28)
PROC: 0W9G3ZZ Drainage of Peritoneal Cavity, Percutaneous Approach (ICD-10-PCS; principal; 2018-10-29)
PROC: 5A1D70Z Performance of Urinary Filtration, Intermittent, Less than 6 Hours Per Day (ICD-10-PCS; 2018-10-29)
DX: I13.2 Hypertensive heart and chronic kidney disease with heart failure and with stage 5 chronic kidney disease, or end stage renal disease (principal); N18.6 End stage renal disease; J96.01 Acute respiratory failure with hypoxia; I50.23 Acute on chronic systolic (congestive) heart failure; K65.9 Peritonitis, unspecified; R18.8 Other ascites; D68.8 Other specified coagulation defects; L97.929 Non-pressure chronic ulcer of unspecified part of left lower leg with unspecified severity; L97.919 Non-pressure chronic ulcer of unspecified part of right lower leg with unspecified severity; I42.8 Other cardiomyopathies; I16.0 Hypertensive urgency; E87.5 Hyperkalemia; I27.20 Pulmonary hypertension, unspecified; D63.1 Anemia in chronic kidney disease; K21.9 Gastro-esophageal reflux disease without esophagitis; E03.9 Hypothyroidism, unspecified; F12.90 Cannabis use, unspecified, uncomplicated; I25.10 Atherosclerotic heart disease of native coronary artery without angina pectoris; Z79.82 Long term (current) use of aspirin; Z99.2 Dependence on renal dialysis; Z91.14 Patient's other noncompliance with medication regimen; Z79.899 Other long term (current) drug therapy; Z72.89 Other problems related to lifestyle; Z82.49 Family history of ischemic heart disease and other diseases of the circulatory system
CPT/HCPCS: 36415; 49083; 71045; 80053; 82803; 82947; 83605; 83880; 84132; 84160; 84478; 85007; 85025; 85610; 85730; 87116; 88112; 88305; 89051; 93005; 93010; 94640; G0378; J0360; J0610; J1644; J1815; J2270; J7030

== ENCOUNTER 2018-11-05 13:19 | Inpatient (IN) | payer MEDICARE ==
[2018-11-05] MEDS ORDERED: MORPHINE IV ONE (13:53)
--- NOTE | 2018-11-05 14:01 | Emergency Department Report ---
HPI - General Chief Complaint: Abdominal Pain Time Seen by Provider: 11/05/18 13:42 - HPI HPI: 48-year-old -[place] male presents to the emergency department via EMS with a complaint of a one-week history of progressively worsening abdominal pain and shortness of breath. This has been going on since the patient had a paracentesis done at the office of his planting material carrier, Dr. Leon. The patient has a past medical history of polycystic kidney disease, end-stage renal disease on hemodialysis Monday//Monday, hypothyroidism, hypertension, chronic ascites requiring paracentesis, and dilated nonischemic cardiomyopathy. The patient was here about one week ago for similar symptoms of the shortness of breath, volume overload and some lower extremity swelling, which she also complains of today. His setter juice packaging machines is Dr. Suzie Espinoza. He denies any chest pain, fever, nausea, vomiting. He has not taken anything specifically to treat his current symptoms prior to arrival today. ED Past Medical Hx - Past Medical History Hx Hypertension: Yes Hx CVA: No Hx Heart Attack/AMI: No Hx Congestive Heart Failure: Yes (diastolic - CHRONIC , CARDIOMYOPATHY) Hx Diabetes: No Hx Deep Vein Thrombosis: No Hx Pulmonary Embolism: No Hx GERD: No Hx Liver Disease: No Hx Renal Disease: Yes (HD TTS) Hx Sickle Cell Disease: No Hx Arthritis: No Hx Headaches / Migraines: No Hx Seizures: No Hx Kidney Stones: No Hx Psychiatric Treatment: No Hx Asthma: No Hx COPD: No Hx Tuberculosis: No Hx Dementia: No Hx HIV: No Additional medical history: Abdominal Hernias, right groin hernia, - Surgical History Hx Coronary Stent: No Hx Open Heart Surgery: No Hx Pacemaker: No Hx Internal Defibrillator: No Hx Cholecystectomy: No Hx Appendectomy: No Hx Breast Surgery: No Additional Surgical History: dialysis access left arm, groin hernia repair, - Social History Smoking Status: Never Smoker Substance Use Type: Alcohol, Marijuana - Medications Home Medications: Home Medications Medication Instructions Recorded Confirmed Last Taken Type Aspirin 325 mg PO PRN 10/28/18 11/05/18 Unknown History Furosemide [Lasix TAB] 20 mg PO QDAY #30 tablet 10/29/18 11/05/18 Unknown Rx cloNIDine [Catapres] 0.2 mg PO BID #60 tablet 10/29/18 11/05/18 Unknown Rx hydrALAZINE [Apresoline TAB] 100 mg PO TID #90 tab 10/29/18 11/05/18 Unknown Rx ED Review of Systems ROS: Stated complaint: PAIN Other details as noted in HPI Comment: All other systems reviewed and negative Constitutional: denies: chills, fever Eyes: denies: eye pain, vision change ENT: denies: ear pain, throat pain Respiratory: orthopnea, shortness of breath Cardiovascular: edema. denies: chest pain Gastrointestinal: abdominal pain. denies: vomiting Genitourinary: denies: dysuria, discharge Musculoskeletal: denies: back pain, arthralgia Skin: denies: rash, lesions Neurological: denies: headache, weakness Physical Exam - Physical Exam Vital Signs: Vital Signs 11/05/18 13:26 Temperature 97.7 F Pulse Rate 70 Respiratory 22 Rate Blood Pressure 215/113 O2 Sat by Pulse 93 Oximetry Physical Exam: GENERAL: The patient is well-developed well-nourished. HENT: Normocephalic. Atraumatic. Patient has moist mucous membranes. EYES: Extraocular motions are intact. Pupils equal reactive to light bilaterally. NECK: Supple. Trachea is midline. CHEST/LUNGS: Coarse breath sounds. No tachypnea or accessory muscle use. There is no respiratory distress noted. HEART/CARDIOVASCULAR: Regular. There is no tachycardia. There is no murmur. ABDOMEN: Abdomen is soft, nontender. Patient has normal bowel sounds but fluid heard within the abdomen as well. There is moderate abdominal distention. SKIN: Patient has 2+ pitting edema of the bilateral lower extremities. He has some nonpitting edema to the abdomen. NEURO: The patient is awake, alert, and oriented. The patient is cooperative. The patient has no focal neurologic deficits. The patient has normal speech. MUSCULOSKELETAL: There is no tenderness or deformity. There is no limitation range of motion. There is no evidence of acute injury. ED Course Vital Signs 11/05/18 13:26 Temperature 97.7 F Pulse Rate 70 Respiratory 22 Rate Blood Pressure 215/113 O2 Sat by Pulse 93 Oximetry - Consultations Consultation #1: 11/05/18 18:28 I spoke to the setter juice packaging machines on-call, Dr. Vazquez, says that he will arrange for dialysis to be done for this patient today. ED Medical Decision Making - Lab Data Result diagrams: 11/05/18 13:52 11/05/18 13:52 - EKG Data -: EKG Interpreted by [facility] EKG shows normal: sinus rhythm, axis, intervals, QRS complexes (LVH), ST-T waves (nonspecific ST-T waves) Rate: normal - EKG Data When compared to previous EKG there are: no significant change Interpretation: unchanged when compared t (10/28/18) - Radiology Data Radiology results: report reviewed ABDOMINAL SERIES: History: Abdominal pain, shortness of breath. AP view of the chest demonstrates mild cardiomegaly and central pulmonary venous congestion. No evidence for pneumonia or CHF. Supine and upright views of the abdomen demonstrates gas-filled loops of bowel throughout the abdomen suggestive of an ileus. No obvious transition point or obstructive pattern is appreciated. No evidence for free air. Previous ventral wall hernia changes are noted. IMPRESSION: Findings suggestive of an ileus. Mild cardiomegaly and central pulmonary venous congestion. Transcribed By: GEOVANNY Dictated By: BARTOLOME IBRAHIM JR, MD Electronically Authenticated By: BARTOLOME IBRAHIM JR, MD Signed Date/Time: 11/05/18 1435 PROCEDURE: CT ABDOMEN PELVIS WO CON TECHNIQUE: CT of the abdomen and pelvis without contrast HISTORY: abd pain COMPARISONS: Comparison is dated October 16, 2018. Report from prior exam not available at this time. FINDINGS: There is small pericardial effusion which was present previously. There is small right pleural effusion seen in the visualized lung bases. Some groundglass opacity seen within the lungs. There is moderate ascites throughout the abdomen and pelvis. Kidneys are markedly enlarged and there are numerous bilateral renal cysts some of which are hyperdense consistent with advanced polycystic kidney disease. This appears similar to the prior exam. Multiple calcifications also noted. Plan is normal in size. Nonenhanced images of the pancreas are unremarkable. Abdominal aorta is normal in caliber. No evidence for colonic or small bowel distention There is some diffuse body wall edema noted Skeletal structures appear sclerotic likely reflecting renal osteodystrophy. IMPRESSION: Small pericardial effusion Small right pleural effusion Moderate ascites Diffuse body wall edema. Findings are suggestive of anasarca. Markedly enlarged polycystic kidneys consistent with advanced polycystic kidney disease. This document is electronically signed by Roque Hernandez MD., November 05 2018 05:45:00 PM ET Transcribed By: ADILIA Dictated By: KUMAR HERNANDEZ MD Electronically Authenticated By: KUMAR HERNANDEZ MD Signed Date/Time: 11/05/18 1374 - Medical Decision Making This patient presents to the emergency department with shortness of breath, orthopnea, and abdominal pain with some distention. He has a history of chronic and recurrent ascites. He is also dialysis-dependent. Chest x-ray shows some pulmonary vascular congestion and some mild basilar pleural effusions. Abdominal x-ray shows nonspecific bowel gas but there could be some signs of ileus versus obstruction. Patient's labs show anemia of chronic kidney disease. He has a when necessary of 97 and a creatinine of about 14 which shows significant renal failure and most likely some signs of uremia. He also has a potassium of 6.6. Nephrology was contacted and consults evidences that they are arranging for dialysis to be done today. Patient has some hypertension but has come down to a more reasonable level with some pain control. Patient was accepted for admission by the hospitalist, Dr. Hodge. - Differential Diagnosis CHF, cirrhosis, Pneumonia, Electrolyte Abnormalities Critical Care Time: No Critical care attestation.: If time is entered above; I have spent that time in minutes in the direct care of this critically ill patient, excluding procedure time. ED Disposition Clinical Impression: End-stage renal disease needing dialysis, Acute hyperkalemia, Hypertensive urgency, Anasarca, Uremia Volume overload Qualifiers: Hypervolemia type: unspecified Qualified Code(s): E87.70 - Fluid overload, unspecified Abdominal pain Qualifiers: Abdominal location: generalized Qualified Code(s): R10.84 - Generalized abdominal pain Edema Qualifiers: Edema type: unspecified Qualified Code(s): R60.9 - Edema, unspecified Disposition: DC-09 OP ADMIT IP TO THIS HOSP Is pt being admited?: Yes Condition: Serious Time of Disposition: 18:31
[2018-11-05 14:29] LABS: Hematocrit 29.7 % (35.5-45.6); Hemoglobin 9.5 gm/dl (11.8-15.2); Mean Corpuscular HGB Conc 32 % (32-34); Mean Corpuscular Volume 91 fl (84-94); Platelet Count 209 K/mm3 (140-440); Red Blood Count 3.27 M/mm3 (3.65-5.03); Red Cell Distribution Width 18.9 % (13.2-15.2)
--- NOTE | 2018-11-05 14:40 | XRay Report ---
ABDOMINAL SERIES: History: Abdominal pain, shortness of breath. AP view of the chest demonstrates mild cardiomegaly and central pulmonary venous congestion. No evidence for pneumonia or CHF. Supine and upright views of the abdomen demonstrates gas-filled loops of bowel throughout the abdomen suggestive of an ileus. No obvious transition point or obstructive pattern is appreciated. No evidence for free air. Previous ventral wall hernia changes are noted. IMPRESSION: Findings suggestive of an ileus. Mild cardiomegaly and central pulmonary venous congestion.
[2018-11-05 14:54] LABS: BUN/Creatinine Ratio 7; Blood Urea Nitrogen 97 mg/dL (9-20); Calcium 9.5 mg/dL (8.4-10.2); Hemolysis Index 9
[2018-11-05 14:58] LABS: Albumin 3.4 g/dL (3.9-5); Bilirubin,Direct 0.3 mg/dL (0-0.2)
[2018-11-05 16:12] LABS: Basophils % (Manual) 0 % (0.0-1.8); Total Cells Counted 100
[2018-11-05 16:14] LABS: Anisocytosis 1+; Ovalocytes 1+; Platelet Estimate Consistent w Auto; Poikilocytosis Few
--- NOTE | 2018-11-05 17:46 | Cat Scan Report ---
PROCEDURE: CT ABDOMEN PELVIS WO CON TECHNIQUE: CT of the abdomen and pelvis without contrast HISTORY: abd pain COMPARISONS: Comparison is dated October 16, 2018. Report from prior exam not available at this time. FINDINGS: There is small pericardial effusion which was present previously. There is small right pleural effusion seen in the visualized lung bases. Some groundglass opacity see n within the lungs. There is moderate ascites throughout the abdomen and pelvis. Kidneys are markedly enlarged and there are numerous bilateral renal cysts some of which are hyperden se consistent with advanced polycystic kidney disease. This appears similar to the prior exam. Multip le calcifications also noted. Plan is normal in size. Nonenhanced images of the pancreas are unremarkable. Abdominal aorta is normal in caliber. No evidence for colonic or small bowel distention There is some diffuse body wall edema noted Skeletal structures appear sclerotic likely reflecting renal osteodystrophy. IMPRESSION: Small pericardial effusion Small right pleural effusion Moderate ascites Diffuse body wall edema. Findings are suggestive of anasarca. Markedly enlarged polycystic kidneys consistent with advanced polycystic kidney disease. This document is electronically signed by Roque Monroe MD., November 05 2018 05:45:00 PM ET
[2018-11-05] MEDS ORDERED: NACL 0.9 (PRIMING MACHINE ONLY DIALYSIS) MC ONE (21:30)
[2018-11-05] MEDS ORDERED: REGLAN IV PRN ×2 (21:56→22:10)
[2018-11-05] MEDS ORDERED: SODIUM CHLORIDE FLUSH SYRINGE 10 ML IV PRN (21:56)
[2018-11-05] MEDS ORDERED: ZOFRAN IV PRN (21:56)
[2018-11-05] MEDS ORDERED: DILAUDID IV PRN (21:56)
[2018-11-05] MEDS ORDERED: TYLENOL PO PRN (21:56)
[2018-11-05] MEDS ORDERED: PERCOCET 5/325 PO PRN (21:56)
[2018-11-05] MEDS ORDERED: KIONEX PO ONE (22:00)
[2018-11-05] MEDS ORDERED: CALCIUM GLUCONATE 2,000 MG in NACL 0.9% 100 ML IV ONE (22:00)
[2018-11-05] MEDS: CATAPRES PO SCH (23:09)
[2018-11-05] MEDS: ASPIRIN PO SCH (23:09)
[2018-11-05] MEDS: PEPCID PO SCH (23:09)
[2018-11-05] MEDS: LASIX PO SCH (23:09)
[2018-11-05] MEDS: SODIUM CHLORIDE FLUSH SYRINGE 10 ML IV SCH (23:11)
[2018-11-06] MEDS ORDERED: APRESOLINE IV PRN (02:45)
--- NOTE | 2018-11-06 06:19 | Event Note ---
Date: 11/05/18 See H/p in reports CHF Exacerbation Ascites Hyperkalemia HTN
[2018-11-06] MEDS: CATAPRES PO SCH ×3 (06:23→14:16)
--- NOTE | 2018-11-06 06:36 | History and Physical Report ---
CHIEF COMPLAINT: 1. Abdominal pain and abdominal distention. 2. Shortness of breath for 2-3 days. HISTORY OF PRESENT ILLNESS: The patient is a 48-year-old -[place] male with multiple medical problems including hypertension, end-stage renal disease, severe ascites, congestive heart failure, comes in for increasing shortness of breath and increasing abdominal distention. The patient has been getting recurrent paracentesis. Last paracentesis was about 1 week ago in his stereoplotter operator's office. Severe orthopnea present. No PND attacks. Also the patient has class 4 [place] NYHA symptoms. No fever or chills. No recent travel. PAST MEDICAL HISTORY: Significant for end-stage renal disease, on hemodialysis Monday, , and Monday; congestive heart failure; chronic cardiomyopathy; diastolic heart failure; hypertension; abdominal hernias. PAST SURGICAL HISTORY: Dialysis access left arm, groin hernia repair. SOCIAL HISTORY: Does not smoke. No alcohol. FAMILY HISTORY: Significant for hypertension. CURRENT MEDICATIONS: Clonidine 0.2 twice a day and hydralazine 100 mg 3 times a day, Lasix 20 mg once a day, aspirin 325 mg once a day. REVIEW OF SYSTEMS: Significant for orthopnea, shortness of breath on minimal exertion. Increasing abdominal girth secondary to ascites. Otherwise, review of systems negative. Increasing fatigue present. PHYSICAL EXAMINATION: GENERAL: Middle-aged male, cooperative during examination. VITAL SIGNS: Blood pressure is 186/99, temperature is 98.2, pulse is 69, respirations are 18. HEENT: Unremarkable. Pupils equal and reactive. NECK: Supple, no lymphadenopathy, no thyromegaly. LUNGS: Clear to auscultation and percussion. Good air entry. CARDIOVASCULAR: S1, S2 heard. No gallop, no murmur, no rub. Apical impulse in left fifth intercostal space and midclavicular line. ABDOMEN: Severe ascites present. EXTREMITIES: A 2+ pedal edema present. CENTRAL NERVOUS SYSTEM: Alert and oriented x 4. Nonfocal exam. LABORATORY DATA: Significant for a white count of 5600, hemoglobin of 9.5, hematocrit of 29.7, platelet count of 209,000. Potassium is 6.6, BUN and creatinine is 97 and 4.3. BNP is more than 70,000. TSH is 9.99. Albumin is 3.4. Abdominal CT shows findings suggestive of an ileus, mild cardiomegaly and central pulmonary venous congestion. Abdominal CT shows small pericardial effusion and small right pleural effusion, moderate ascites. Markedly enlarged polycystic kidneys consistent with advanced polycystic kidney disease. Diffuse body wall edema. Findings are suggestive of anasarca. ASSESSMENT AND PLAN: 1. Congestive heart failure exacerbation, diastolic failure. The patient to be taken for emergent hemodialysis for increased ultrafiltration and fluid removal. ECHO ordered for EF 2. Ascites, recurrent, paracentesis ordered for tomorrow. Ascites fluid to be sent for cell count, total protein, glucose, LDH and amylase. 3. End-stage renal disease, needing dialysis. The patient is being taken for emergent dialysis. 4. Hyperkalemia. The patient is given Kayexalate and calcium gluconate and the patient also going for emergent hemodialysis. 5. Hypertensive emergency. Continue clonidine 0.2 q.8 and hydralazine. Also, hydralazine IV q.3. to q.4 p.r.n. for blood pressure more than 160/100. 6. Malnutrition, mild. Dietitian consult requested. 7. Elevated TSH. We will get thyroid profile, initiated on thyroid medications if necessary. 8. Deep venous thrombosis prophylaxis, heparin 5000 q.12 initiated. JOB# [id number] VERNA/FELIPE QUEZADA
[2018-11-06] MEDS: APRESOLINE PO SCH ×3 (09:16→14:22)
--- NOTE | 2018-11-06 09:48 | Procedure Note ---
Date of procedure: 11/06/18 Pre-op diagnosis: ascites Post-op diagnosis: same Procedure: US paracentesis Findings: small ascites Anesthesia: local Surgeon: BARTOLOME IBRAHIM Estimated blood loss: none Pathology: list (120cc) Specimen disposition: to lab Condition: stable Disposition: floor
--- NOTE | 2018-11-06 10:39 | Ultrasound Report ---
ULTRASOUND PARACENTESIS HISTORY: Ascites. DESCRIPTION OF PROCEDURE: A time out was performed. Informed consent was obtained. Sterile technique was utilized. Using ultrasound guidance, a 5 German centesis needle was advanced into the peritoneal space. There was spontaneous return of clear yellow fluid. 2.9 L of fluid was drained. 120 cc of fluid was sent to laboratory for analysis. No complications. IMPRESSION: Successful ultrasound-guided paracentesis.
--- NOTE | 2018-11-06 11:32 | Progress Note ---
Assessment and Plan Assessment and plan: Acute on chronic diastolic heart failure. Patient received emergent hemodialysis for fluid removal yesterday. Follow-up echocardiogram. Ascites. Paracentesis ordered. Follow-up fluid studies. ESRD on hemodialysis. Continue hemodialysis per nephrology. Accelerated hypertension. Continue clonidine and hydralazine. Protein calorie malnutrition. Dietitian consult. Elevated TSH. Follow-up thyroid profile. History Interval history: No new issues overnight. Hospitalist Physical - Constitutional Vitals: Temp Pulse Resp BP Pulse Ox 97.4 F L 61 20 152/86 96 11/06/18 05:14 11/06/18 05:14 11/06/18 05:14 11/06/18 06:25 11/06/18 05:14 General appearance: Present: no acute distress, well-nourished - EENT Eyes: Present: PERRL, EOM intact ENT: hearing intact, clear oral mucosa, dentition normal - Neck Neck: Present: supple, normal ROM - Respiratory Respiratory effort: normal Respiratory: bilateral: CTA - Cardiovascular Rhythm: regular Heart Sounds: Present: S1 & S2. Absent: gallop, rub - Extremities Extremities: no ischemia, No edema, Full ROM - Abdominal General gastrointestinal: soft, non-tender, non-distended, normal bowel sounds - Integumentary Integumentary: Present: clear, warm, dry - Neurologic Neurologic: CNII-XII intact, moves all extremities Results - Labs CBC & Chem 7: 11/05/18 13:52 11/05/18 13:52 Labs: Laboratory Last Values WBC 5.6 K/mm3 (4.5-11.0) 11/05/18 13:52 RBC 3.27 M/mm3 (3.65-5.03) L 11/05/18 13:52 Hgb 9.5 gm/dl (11.8-15.2) L 11/05/18 13:52 Hct 29.7 % (35.5-45.6) L 11/05/18 13:52 MCV 91 fl (84-94) 11/05/18 13:52 MCH 29 pg (28-32) 11/05/18 13:52 MCHC 32 % (32-34) 11/05/18 13:52 RDW 18.9 % (13.2-15.2) H 11/05/18 13:52 Plt Count 209 K/mm3 (140-440) 11/05/18 13:52 [place] % (Auto) Medical Grade [place] 11/05/18 13:52 Add Manual Diff Complete 11/05/18 13:52 Total Counted 100 11/05/18 13:52 Seg Neuts % (Manual) 69.0 % (40.0-70.0) 11/05/18 13:52 0 % 11/05/18 13:52 17.0 % (13.4-35.0) 11/05/18 13:52 Reactive Lymphs % (Man) 0 % 11/05/18 13:52 13.0 % (0.0-7.3) H 11/05/18 13:52 1.0 % (0.0-4.3) 11/05/18 13:52 0 % (0.0-1.8) 11/05/18 13:52 0 % 11/05/18 13:52 0 % 11/05/18 13:52 0 % 11/05/18 13:52 0 % 11/05/18 13:52 Nucleated RBC % Not Reportable 11/05/18 13:52 Seg Neutrophils # Man 3.9 K/mm3 (1.8-7.7) 11/05/18 13:52 Band Neutrophils # 0.0 K/mm3 11/05/18 13:52 1.0 K/mm3 (1.2-5.4) L 11/05/18 13:52 Abs React Lymphs (Man) 0.0 K/mm3 11/05/18 13:52 0.7 K/mm3 (0.0-0.8) 11/05/18 13:52 0.1 K/mm3 (0.0-0.4) 11/05/18 13:52 0.0 K/mm3 (0.0-0.1) 11/05/18 13:52 0.0 K/mm3 11/05/18 13:52 0.0 K/mm3 11/05/18 13:52 0.0 K/mm3 11/05/18 13:52 Blast Cells # 0.0 K/mm3 11/05/18 13:52 WBC Morphology Not Reportable 11/05/18 13:52 Hypersegmented Neuts Not Reportable 11/05/18 13:52 Hyposegmented Neuts Not Reportable 11/05/18 13:52 Hypogranular Neuts Not Reportable 11/05/18 13:52 Not Reportable 11/05/18 13:52 Not Reportable 11/05/18 13:52 Not Reportable 11/05/18 13:52 Not Reportable 11/05/18 13:52 Not Reportable 11/05/18 13:52 Not Reportable 11/05/18 13:52 Consistent w auto 11/05/18 13:52 Not Reportable 11/05/18 13:52 Plt Clumps, EDTA Not Reportable 11/05/18 13:52 Not Reportable 11/05/18 13:52 Not Reportable 11/05/18 13:52 Not Reportable 11/05/18 13:52 Plt Morphology Comment Not Reportable 11/05/18 13:52 RBC Morphology Not Reportable 11/05/18 13:52 Dimorphic RBCs Not Reportable 11/05/18 13:52 Not Reportable 11/05/18 13:52 Not Reportable 11/05/18 13:52 Few 11/05/18 13:52 1+ 11/05/18 13:52 Not Reportable 11/05/18 13:52 Not Reportable 11/05/18 13:52 Not Reportable 11/05/18 13:52 Not Reportable 11/05/18 13:52 Not Reportable 11/05/18 13:52 Not Reportable 11/05/18 13:52 Not Reportable 11/05/18 13:52 1+ 11/05/18 13:52 Not Reportable 11/05/18 13:52 Not Reportable 11/05/18 13:52 Not Reportable 11/05/18 13:52 Not Reportable 11/05/18 13:52 Not Reportable 11/05/18 13:52 Not Reportable 11/05/18 13:52 Not Reportable 11/05/18 13:52 Acanthocytes (Spur) Not Reportable 11/05/18 13:52 Rouleaux Not Reportable 11/05/18 13:52 Not Reportable 11/05/18 13:52 Not Reportable 11/05/18 13:52 Not Reportable 11/05/18 13:52 Not Reportable 11/05/18 13:52 Hem Pathologist Commnt No 11/05/18 13:52 Sodium 137 mmol/L (137-145) 11/05/18 13:52 Potassium 6.6 mmol/L (3.6-5.0) H* 11/05/18 13:52 Chloride 95.0 mmol/L (98-107) L 11/05/18 13:52 Carbon Dioxide 18 mmol/L (22-30) L 11/05/18 13:52 31 mmol/L 11/05/18 13:52 BUN 97 mg/dL (9-20) H 11/05/18 13:52 14.3 mg/dL (0.8-1.5) H 11/05/18 13:52 Estimated GFR 4 ml/min 11/05/18 13:52 7 % 11/05/18 13:52 Glucose 117 mg/dL (75-100) H 11/05/18 13:52 5.9 % (4-6) 11/05/18 22:45 Calcium 9.5 mg/dL (8.4-10.2) 11/05/18 13:52 0.50 mg/dL (0.1-1.2) 11/05/18 13:52 0.3 mg/dL (0-0.2) H 11/05/18 13:52 0.2 mg/dL 11/05/18 13:52 AST 17 units/L (5-40) 11/05/18 13:52 ALT 13 units/L (7-56) 11/05/18 13:52 66 units/L (35-129) 11/05/18 13:52 NT-Pro-B Natriuret Pep > 26209 pg/mL (0-450) H 11/05/18 13:52 7.0 g/dL (6.3-8.2) 11/05/18 13:52 3.4 g/dL (3.9-5) L 11/05/18 13:52 0.9 % 11/05/18 13:52 35 units/L (13-60) 11/05/18 13:52 TSH 9.990 mlU/mL (0.270-4.200) H 11/05/18 14:26 Active Medications - Current Medications Current Medications: Generic Name Dose Route Start Last Admin Trade Name Freq PRN Reason Stop Dose Admin Acetaminophen 650 mg 11/05/18 21:56 Tylenol PO Q4H PRN Pain MILD(1-3)/Fever >100.5/SWAIN Aspirin 325 mg 11/05/18 22:00 11/05/18 23:09 Aspirin PO 325 mg PRN FOSTER Administration Clonidine HCl 0.2 mg 11/05/18 22:00 11/06/18 06:25 Catapres PO Not Given Q8H FOSTER Famotidine 10 mg 11/05/18 22:00 11/05/18 23:09 Pepcid PO 10 mg BID FOSTER Administration Furosemide 20 mg 11/05/18 22:00 11/05/18 23:09 Lasix PO 20 mg QDAY FOSTER Administration Hydralazine HCl 100 mg 11/06/18 08:00 11/06/18 09:16 Apresoline PO Not Given TID FOSTER Hydralazine HCl 10 mg 11/06/18 02:45 11/06/18 03:07 Apresoline IV 10 mg Q4HR PRN Administration elevated BP Hydromorphone HCl 0.25 mg 11/05/18 21:56 11/05/18 23:14 Dilaudid IV 0.25 mg Q3H PRN Administration Pain, Moderate (4-6) Metoclopramide HCl 2.5 mg 11/05/18 22:10 Reglan IV Q6H PRN Nausea And Vomiting Ondansetron HCl 4 mg 11/05/18 21:56 Zofran IV Q8H PRN Nausea And Vomiting Oxycodone/Acetaminophen 1 tab 11/05/18 21:56 Percocet 5/325 PO Q6H PRN Pain, Moderate (4-6) Sodium Chloride 10 ml 11/05/18 22:00 11/05/18 23:11 Sodium Chloride Flush Syringe 10 Ml IV 10 ml BID FOSTER Administration Sodium Chloride 10 ml 11/05/18 21:56 Sodium Chloride Flush Syringe 10 Ml IV PRN PRN LINE FLUSH
[2018-11-06] MEDS: ASPIRIN PO SCH (12:15)
[2018-11-06] MEDS: LASIX PO SCH (12:16)
[2018-11-06] MEDS: PEPCID PO SCH (12:16)
[2018-11-06] MEDS: SODIUM CHLORIDE FLUSH SYRINGE 10 ML IV SCH (12:18)
[2018-11-06 13:26] LABS: Total Cells Counted 100 /mm3
[2018-11-06 13:27] LABS: Bilirubin,Urine NEG (Negative); Blood,Urine MOD (Negative); Color,Urine Yellow (Yellow); Urobilinogen,Urine < 2.0 mg/dL (<2.0)
[2018-11-06 13:35] LABS: Protein,Urine >2000 mg dL mg/dL (Negative)
[2018-11-06 14:17] VITALS: BP 163/86
--- NOTE | 2018-11-06 19:45 | Consultation ---
History of Present Illness - Reason for Consult Consult date: 11/06/18 end stage renal disease Requesting physician: XOCHILT DUNHAM - History of Present Illness 48-year-old male who is known to me from previous hospitalizations with end- stage disease secondary to Autosomal dominant polycystic kidney disease. Patient has had frequent hospitalizations with fluid overload/ascites and Accelerated hypertension in this setting. He also receives paracentesis periodically because of the ascites which is related to fluid overload. Presents on account of shortness of breath and LE swelling. Patient also admits to cough which is nonproductive and worse on lying down. He denies any hemoptysis. No fever or chills. He had chest pain after outpatient dialysis on Monday. He also admits to nausea and vomiting a couple nights ago. His last paracentesis was about a week ago and he still has pain in left side from the site. Feels like a ball right under my navel". Blood pressure presentation was 215/113 mmHg and potassium was high at 6.6. mmols per liter. I was called by the patient last night and ordered dialysis starts. Past History Past Medical History: anemia, ESRD, hypertension, other (ascites) Past Surgical History: hernia repair, Other (left upper extremity AV graft, paracentesis) Social history: lives with family ( his and children). denies: smoking, alcohol abuse, prescription drug abuse, IV drug use Family history: other (mother had anxiety disorder, one brother of meningitis. He never met his father) Medications and Allergies Allergies Allergy/AdvReac Type Severity Reaction Status Date / Time labetalol Allergy Vomiting Verified 10/16/18 15:22 polystyrene sulfonate Allergy Unknown Verified 10/16/18 13:24 [From Kayexalate] tramadol [From Ultram] AdvReac Dizziness Verified 03/05/18 15:30 Home Medications Medication Instructions Recorded Confirmed Last Taken Type Aspirin 325 mg PO PRN 10/28/18 11/05/18 Unknown History Furosemide [Lasix TAB] 20 mg PO QDAY #30 tablet 10/29/18 11/05/18 Unknown Rx cloNIDine [Catapres] 0.2 mg PO BID #60 tablet 10/29/18 11/05/18 Unknown Rx hydrALAZINE [Apresoline TAB] 100 mg PO TID #90 tab 10/29/18 11/05/18 Unknown Rx Review of Systems All systems: negative (Constitutional: no fever or chills. No anorexia or weight loss. HEENT: No sore throat or sinus drainage no hearing or vision impairment . Cardiovascular: See history of present illness. Respiratory: See history of present illness. Gastrointestinal: See history of present illness. Genitourinary: Makes very little urine. No frequency urgency dysuria or hematuria. hematologic: No abnormal bleeding or bruising. Integumentary: \\Administered itching and bumps in his legs. Neurological: Admits to. Headache and dizziness no focal weakness or numbness, no syncope or seizures. Musculoskeletal: No joint pains no stiffness. Psychiatry: no anxiety or depression) Exam - Vital Signs Vital signs: Vital Signs Temp Pulse Resp BP Pulse Ox 97.7 F 70 22 215/113 93 11/05/18 13:26 11/05/18 13:26 11/05/18 13:26 11/05/18 13:26 11/05/18 13:26 - Physical Exam Narrative exam: Middle-aged [place] male lying in bed in no acute distress HEENT: Face swollen, pink oral mucous membrane Neck: Supple, no venous distention CVS: S1S2 RRR with no murmur, rub or gallop Chest: Clear to auscultation Abdomen: Protuberant, soft, nontender, no organomegaly, bowel sounds are present Extremities: Pittiing 2-3+ edema Skin: Hyperpigmentation and lichenification especially in lower extremities and feet Neuro: Awake, alert no focal deficits Results - Lab Results 11/05/18 13:52 11/05/18 13:52 Most recent lab results Calcium 9.5 mg/dL (8.4-10.2) 11/05/18 13:52 Assessment and Plan - Patient Problems (1) Acute hyperkalemia Status: Acute Plan to address problem: Stat hemodialysis was done last night. Follow potassium today. If stable, will dialyze him again tomorrow (2) Anemia in chronic kidney disease Status: Acute Plan to address problem: Give Erythropoetin on dialysis (3) Hypertensive urgency Status: Acute Plan to address problem: Blood pressure improved postdialysis. Follow blood pressure on current medications (4) Metabolic acidosis Status: Acute Plan to address problem: Follow-up bicarbonate post dialysis (5) ESRD (end stage renal disease) Status: Acute Plan to address problem: Hemodialysis again tomorrow (6) PKD (polycystic kidney disease) Status: Chronic Plan to address problem: Patient already on dialysis. Follow-up cystic kidneys with primary iron worker
[2018-11-09 10:43] LABS: Amylase,Body Fluid 22; LDH,Body Fluid 175; Total Protein,Body Fluid 3.4 (15.0-45.0)
== END 2018-11-06 17:40 | disposition left against medical advice (07) | DRG 291 ==
LOC: ED 13:19 → 3A 15:10
PROVIDERS: ADMIT Internal Medicine; ATTEND Hospitalist
PROC: 5A1D70Z Performance of Urinary Filtration, Intermittent, Less than 6 Hours Per Day (ICD-10-PCS; principal; 2018-11-05)
PROC: 0W9G3ZZ Drainage of Peritoneal Cavity, Percutaneous Approach (ICD-10-PCS; 2018-11-06)
DX: I13.2 Hypertensive heart and chronic kidney disease with heart failure and with stage 5 chronic kidney disease, or end stage renal disease (principal); I50.33 Acute on chronic diastolic (congestive) heart failure; N18.6 End stage renal disease; R18.8 Other ascites; E46 Unspecified protein-calorie malnutrition; Q61.3 Polycystic kidney, unspecified; E87.2 Acidosis; E87.5 Hyperkalemia; I42.0 Dilated cardiomyopathy; I16.0 Hypertensive urgency; D63.1 Anemia in chronic kidney disease; E03.9 Hypothyroidism, unspecified; Z99.2 Dependence on renal dialysis; Z79.82 Long term (current) use of aspirin; Z68.36 Body mass index [BMI] 36.0-36.9, adult
CPT/HCPCS: 36415; 49083; 74022; 74176; 80048; 80076; 81001; 82040; 82150; 82947; 83036; 83605; 83690; 83880; 84160; 84443; 85007; 85025; 88112; 88305; 88341; 88342; 89051; 93005; 93010; 96374; G0378; J0360; J0610; J1170; J2270; J7030

== ENCOUNTER 2018-11-14 11:38 | Day surgery (SDC) | payer MEDICARE ==
--- NOTE | 2018-11-14 13:01 | Short Stay Summary ---
Short Stay Documentation Date of service: 11/14/18 - History Principal diagnosis: Ascites Past Medical History: liver disease Past Surgical History: Other (multiple prior paracentesis) Social history: no significant social history - Allergies and Medications Current Medications: Allergies labetalol Allergy (Verified 10/16/18 15:22) Vomiting pt also reports drastic drop in HR polystyrene sulfonate [From Kayexalate] Allergy (Verified 10/16/18 13:24) Unknown tramadol [From Ultram] Adverse Reaction (Verified 03/05/18 15:30) Dizziness Home Medications Medication Instructions Recorded Confirmed Last Taken Type Aspirin 325 mg PO PRN 10/28/18 11/14/18 11/13/18 History 325mg Furosemide [Lasix TAB] 20 mg PO QDAY #30 tablet 10/29/18 11/14/18 11/13/18 Rx 20mg cloNIDine [Catapres] 0.2 mg PO BID #60 tablet 10/29/18 11/14/18 11/13/18 Rx 0.2mg hydrALAZINE [Apresoline TAB] 100 mg PO TID #90 tab 10/29/18 11/14/18 11/13/18 Rx 100mg - Physical exam General appearance: no acute distress Integumentary: no rash HEENT: Atraumatic Lungs: Normal air movement Breasts: deferred Gastrointestinal: no tenderness, distended Male Genitourinary: deferred Rectal Exam: deferred Extremities: no No edema - Brief post op/procedure progress note Date of procedure: 11/14/18 Pre-op diagnosis: Ascites Post-op diagnosis: same Procedure: US guided paracentesis Anesthesia: local Surgeon: JEREMIAH CERDA Estimated blood loss: none Specimen disposition: to lab Condition: stable - Disposition Condition at discharge: Good Disposition: DC-01 TO HOME OR SELFCARE Short Stay Discharge Plan Activity: advance as tolerated Weight Bearing Status: Weight Bear as Tolerated Diet: regular Wound: keep clean and dry, per your surgeon's advice Follow up with: FRANKO GRANDE MD [Primary Care Provider] - 7 Days
[2018-11-14 13:58] VITALS: BP 176/92
--- NOTE | 2018-11-14 14:52 | Ultrasound Report ---
Exam: Ultrasound-guided paracentesis Clinical indication: Ascites Date: 11/14/2018 Procedure: Following an explanation of the risks, benefits and alternatives; written informed consent was obtained. The patient was brought to the ultrasound suite and placed in supine position on the stretcher. Four-quadrant ultrasound of the abdomen was performed and an appropriate access site was chosen in the left lower quadrant. The patient's lower abdomen was prepped and draped in the usual sterile fashion. 1% lidocaine was used for anesthesia. Under ultrasound guidance, a 5 Macedonian Yueh needle was advanced into the ascitic fluid. An image was saved for documentation. The trocar was removed and a total of 3.5 L of clear yellow ascitic fluid was aspirated. A sample sent for laboratory analysis. The Yueh needle was removed and hemostasis achieved using minimal compression. A sterile dressing was applied. The patient tolerated the procedure well. No immediate post procedure complications. Impression: Ultrasound-guided paracentesis with 3.5 L of clear yellow ascitic fluid aspirated. Samples sent for laboratory analysis.
== END 2018-11-14 14:30 | disposition home or self-care (01) ==
LOC: CATHLABREC 11:38 → EDSTATUS 12:00 → CATHLABREC 14:30
PROVIDERS: ATTEND Internal Medicine Gastroenterology
DX: R18.8 Other ascites (principal); I13.2 Hypertensive heart and chronic kidney disease with heart failure and with stage 5 chronic kidney disease, or end stage renal disease; N18.6 End stage renal disease; I50.22 Chronic systolic (congestive) heart failure; D64.9 Anemia, unspecified; E66.9 Obesity, unspecified; Z87.440 Personal history of urinary (tract) infections; Z91.14 Patient's other noncompliance with medication regimen; Z79.899 Other long term (current) drug therapy; Z79.82 Long term (current) use of aspirin; Z86.718 Personal history of other venous thrombosis and embolism; Z88.8 Allergy status to other drugs, medicaments and biological substances; Z68.36 Body mass index [BMI] 36.0-36.9, adult; Z99.2 Dependence on renal dialysis; Z98.890 Other specified postprocedural states
CPT/HCPCS: 49083; 87116; 88112

== ENCOUNTER 2018-11-19 08:03 | Outpatient (CLI) | payer MEDICARE ==
[2018-11-19] MEDS ORDERED: XYLOCAINE TOPICAL 4% TP ONE (09:00)
== END 2018-11-19 08:04 | disposition home or self-care (01) ==
LOC: WOUND 08:03
PROVIDERS: ATTEND Surgery
DX: L97.812 Non-pressure chronic ulcer of other part of right lower leg with fat layer exposed (principal); I87.2 Venous insufficiency (chronic) (peripheral); I12.0 Hypertensive chronic kidney disease with stage 5 chronic kidney disease or end stage renal disease; N18.6 End stage renal disease; F12.20 Cannabis dependence, uncomplicated
CPT/HCPCS: 11042; G0463; 99204; 99214

== ENCOUNTER 2018-11-21 07:51 | Inpatient (IN) | payer MEDICARE ==
--- NOTE | 2018-11-21 08:50 | Emergency Department Report ---
ED Shortness of Breath HPI - General Chief Complaint: Dyspnea/Respdistress Stated Complaint: STOMACH FEELING FUNNY Time Seen by Provider: 11/21/18 08:38 Source: patient Mode of arrival: Wheelchair Limitations: No Limitations - History of Present Illness Initial Comments: Patient is a 48-year-old male presents emergency room with complaints of shortness of breath, abdominal distention and bilateral lower extremity edema. Patient states his abdominal distention started weeks ago but is worsening. Patient states the shortness of breath started about 3 hours ago. Patient states chest pressure started about 3 hours ago. Patient states symptoms are worsening. Patient states that shortness of breath worse with exertion and better with rest. Patient states his chest pressure is better with rest and worse with exertion. Patient states she has history of CHF and end-stage renal disease. Patient states he has an appointment for diagnostic paracentesis for his ascites MD Complaint: shortness of breath, chest pain -: Sudden Severity: severe Pain Scale: 4 Quality: aching Consistency: constant Improves With: rest, upright position Worsens With: lying flat, exertion, movement Known History Of: congestive heart failure Associated Symptoms: chest pain Treatments Prior to Arrival: none - Related Data Home Oxygen Therapy: No Home Medications Medication Instructions Recorded Confirmed Last Taken Sevelamer Carbonate [Renvela] 1,600 mg PO TIDWM 11/21/18 11/21/18 Unknown Previous Rx's Medication Instructions Recorded Last Taken Type Furosemide [Lasix TAB] 20 mg PO QDAY #30 tablet 10/29/18 11/13/18 Rx 20mg cloNIDine [Catapres] 0.2 mg PO BID #60 tablet 10/29/18 11/13/18 Rx 0.2mg hydrALAZINE [Apresoline TAB] 100 mg PO TID #90 tab 10/29/18 11/13/18 Rx 100mg Allergies Allergy/AdvReac Type Severity Reaction Status Date / Time labetalol Allergy Vomiting Verified 10/16/18 15:22 polystyrene sulfonate Allergy Unknown Verified 10/16/18 13:24 [From Kayexalate] tramadol [From Ultram] AdvReac Dizziness Verified 03/05/18 15:30 ED Review of Systems ROS: Stated complaint: STOMACH FEELING FUNNY Other details as noted in HPI Constitutional: denies: chills, fever Eyes: denies: eye pain, eye discharge, vision change ENT: denies: ear pain, throat pain Respiratory: shortness of breath, SOB with exertion, SOB at rest. denies: cough, wheezing Cardiovascular: chest pain, dyspnea on exertion. denies: palpitations Endocrine: no symptoms reported Gastrointestinal: denies: abdominal pain, nausea, diarrhea Genitourinary: denies: urgency, dysuria Musculoskeletal: denies: back pain, joint swelling, arthralgia Skin: denies: rash, lesions Neurological: denies: headache, weakness, paresthesias Psychiatric: anxiety. denies: depression Hematological/Lymphatic: denies: easy bleeding, easy bruising ED Past Medical Hx - Past Medical History Previous Medical History?: Yes Hx Hypertension: Yes Hx CVA: No Hx Heart Attack/AMI: No Hx Congestive Heart Failure: Yes (diastolic - CHRONIC , CARDIOMYOPATHY) Hx Diabetes: No Hx Deep Vein Thrombosis: No Hx Pulmonary Embolism: No Hx GERD: No Hx Liver Disease: No Hx Renal Disease: Yes (HD TTS) Hx Sickle Cell Disease: No Hx Arthritis: No Hx Headaches / Migraines: No Hx Seizures: No Hx Kidney Stones: No Hx Psychiatric Treatment: No Hx Asthma: No Hx COPD: No Hx Tuberculosis: No Hx Dementia: No Hx HIV: No Additional medical history: Abdominal Hernias, right groin hernia, - Surgical History Past Surgical History?: Yes Hx Coronary Stent: No Hx Open Heart Surgery: No Hx Pacemaker: No Hx Internal Defibrillator: No Hx Cholecystectomy: No Hx Appendectomy: No Hx Breast Surgery: No Additional Surgical History: dialysis access left arm, groin hernia repair, - Family History Family history: no significant - Social History Smoking Status: Never Smoker Substance Use Type: None - Medications Home Medications: Home Medications Medication Instructions Recorded Confirmed Last Taken Type Furosemide [Lasix TAB] 20 mg PO QDAY #30 tablet 10/29/18 11/21/18 11/13/18 Rx 20mg cloNIDine [Catapres] 0.2 mg PO BID #60 tablet 10/29/18 11/21/18 11/13/18 Rx 0.2mg hydrALAZINE [Apresoline TAB] 100 mg PO TID #90 tab 10/29/18 11/21/18 11/13/18 Rx 100mg Sevelamer Carbonate [Renvela] 1,600 mg PO TIDWM 11/21/18 11/21/18 Unknown History ED Physical Exam - General Limitations: No Limitations General appearance: alert, in no apparent distress - Head Head exam: Present: atraumatic, normocephalic - Eye Eye exam: Present: normal appearance - ENT ENT exam: Present: mucous membranes moist - Neck Neck exam: Present: normal inspection - Respiratory Respiratory exam: Present: normal lung sounds bilaterally, rales. Absent: respiratory distress, wheezes - Cardiovascular Cardiovascular Exam: Present: regular rate, normal rhythm. Absent: systolic murmur, diastolic murmur, rubs, gallop - GI/Abdominal GI/Abdominal exam: Present: soft, distended, normal bowel sounds - Rectal Rectal exam: Present: deferred - Extremities Exam Extremities exam: Present: normal inspection (except edema), normal capillary refill, pedal edema. Absent: calf tenderness - Back Exam Back exam: Present: normal inspection - Neurological Exam Neurological exam: Present: alert, oriented X3 - Psychiatric Psychiatric exam: Present: normal affect, normal mood - Skin Skin exam: Present: warm, dry, intact, normal color. Absent: rash ED Course Vital Signs 11/21/18 11/21/18 11/21/18 08:01 08:20 08:30 Temperature 98.8 F Pulse Rate 66 64 87 Respiratory 24 19 16 Rate Blood Pressure 206/107 202/130 O2 Sat by Pulse 96 92 98 Oximetry 11/21/18 11/21/18 11/21/18 09:01 09:15 09:30 Temperature Pulse Rate Respiratory 19 22 20 Rate Blood Pressure 202/130 213/126 197/120 O2 Sat by Pulse 98 98 98 Oximetry 11/21/18 11/21/18 11/21/18 09:45 10:00 10:15 Temperature Pulse Rate 75 Respiratory 28 H 32 H 18 Rate Blood Pressure 213/126 204/105 204/105 O2 Sat by Pulse 97 100 92 Oximetry 11/21/18 11/21/18 11/21/18 10:30 10:45 11:00 Temperature Pulse Rate 73 76 73 Respiratory 25 H 24 23 Rate Blood Pressure 211/107 204/105 195/112 O2 Sat by Pulse 95 95 96 Oximetry 11/21/18 11/21/18 11/21/18 11:11 11:21 11:30 Temperature Pulse Rate 73 79 Respiratory 25 H 24 17 Rate Blood Pressure 195/112 195/112 206/118 O2 Sat by Pulse 97 96 94 Oximetry 0611/21/18 11/21/18 11:41 11:51 12:00 Temperature Pulse Rate 69 71 Respiratory 14 26 H Rate Blood Pressure 195/112 195/112 190/103 O2 Sat by Pulse 95 100 96 Oximetry 11/21/18 11/21/18 11/21/18 12:11 12:21 12:31 Temperature Pulse Rate 63 62 60 Respiratory 25 H 24 22 Rate Blood Pressure 206/118 206/118 144/79 O2 Sat by Pulse 96 94 93 Oximetry 11/21/18 11/21/18 11/21/18 12:40 12:50 13:00 Temperature Pulse Rate 61 63 60 Respiratory 26 H 27 H 25 H Rate Blood Pressure 150/81 148/83 138/84 O2 Sat by Pulse 95 96 95 Oximetry - Reevaluation(s) Reevaluation #1: Discussed all results with patient. Patient will be admitted to the hospitalist service. Patient agrees to plan of care. Patient will be given calcium, insulin, D50. Nephrology will be consulted for emergent dialysis. Shortly given clonidine for blood pressure and blood pressure still slightly high. Patient will be placed on a nicardipine drip until dialysis 11/21/18 11:16 - Consultations Consultation #1: Nephrology paged 11/21/18 11:16 Nephrology, Dr. Casey agrees with plan of care and will order emergent dialysis for the patient. 11/21/18 11:24 Consultation #2: Hospitalist consulted for admission. Hospitalist to admit patient. Hospitalist to assume care patient. 11/21/18 11:26 ED Medical Decision Making - Lab Data Result diagrams: 11/21/18 10:13 11/21/18 10:13 - EKG Data -: EKG Interpreted by Me EKG shows normal: sinus rhythm, axis, intervals, QRS complexes, ST-T waves Rate: normal - Radiology Data Radiology results: report reviewed, image reviewed interpreted by me: CHF changes noted - Medical Decision Making Patient is a 48-year-old mother patient's emergent with chest pain, shortness of breath and worsening ascites and lower extremity edema. Patient not have anasarca. Patient found to be in congestive heart failure exacerbation. Patient also found to have a hyper kalemia. Patient will have emergent dialysis. Patient given calcium, insulin, D50. Patient is allergic to Kayexalate. - Differential Diagnosis ACS. Chest pain. Shortness of breath. Volume overload Critical Care Time: Yes Critical care attestation.: If time is entered above; I have spent that time in minutes in the direct care of this critically ill patient, excluding procedure time. Critical Care Time: 45 minutes ED Disposition Clinical Impression: ESRD (end stage renal disease), SOB (shortness of breath), CRENSHAW (dyspnea on exertion), Abdominal distension, Hypertensive urgency, Anasarca, ESRD on hemodialysis, Hypertensive urgency, malignant, Hyperkalemia CHF (congestive heart failure) Qualifiers: Heart failure type: unspecified Heart failure chronicity: acute on chronic Qualified Code(s): I50.9 - Heart failure, unspecified CHF exacerbation Qualifiers: Heart failure type: unspecified Qualified Code(s): I50.9 - Heart failure, unspecified Chest pain Qualifiers: Chest pain type: unspecified Qualified Code(s): R07.9 - Chest pain, unspecified Ascites Qualifiers: Ascites type: other type Qualified Code(s): R18.8 - Other ascites Anemia Qualifiers: Anemia type: unspecified type Qualified Code(s): D64.9 - Anemia, unspecified Volume overload Qualifiers: Hypervolemia type: unspecified Qualified Code(s): E87.70 - Fluid overload, unspecified Disposition: DC-09 OP ADMIT IP TO THIS HOSP Is pt being admited?: Yes Does the pt Need Aspirin: No Condition: Critical Time of Disposition: 11:26
[2018-11-21] MEDS ORDERED: ATIVAN IV ONE (10:01)
[2018-11-21] MEDS ORDERED: ATIVAN ONE (10:01)
[2018-11-21] MEDS ORDERED: CATAPRES PO ONE (10:06)
[2018-11-21] MEDS ORDERED: ASPIRIN PR ONE (10:06)
[2018-11-21] MEDS ORDERED: ASPIRIN PO ONE (10:09)
--- NOTE | 2018-11-21 10:20 | XRay Report ---
AP CHEST: HISTORY: Dyspnea Compared to 10/28/18. There is poor inspiration. Moderate cardiomegaly and pulmonary venous congestion are identified and appear slightly increased since the previous exam. No obvious infiltrate, pleural effusion or pneumothorax. The bony thorax is grossly intact. IMPRESSION: Cardiomegaly and pulmonary venous congestion.
[2018-11-21 10:28] LABS: Hematocrit 30.9 % (35.5-45.6); Hemoglobin 9.8 gm/dl (11.8-15.2); Mean Corpuscular HGB Conc 32 % (32-34); Mean Corpuscular Volume 92 fl (84-94); Platelet Count 191 K/mm3 (140-440); Red Blood Count 3.35 M/mm3 (3.65-5.03); Red Cell Distribution Width 17.7 % (13.2-15.2)
[2018-11-21 10:58] LABS: Creatine Kinase MB 20.8 ng/mL (0.0-4.0)
[2018-11-21 11:01] LABS: Albumin 3.7 g/dL (3.9-5)
[2018-11-21] MEDS ORDERED: CALCIUM CHLORIDE IVP ONE (11:16)
[2018-11-21] MEDS ORDERED: HumuLIN R IV ONE (11:16)
[2018-11-21] MEDS ORDERED: D50W (25GM) Syringe IV ONE (11:16)
[2018-11-21 11:17] LABS: Chol/HDL Ratio 2.34 %; HDL Cholesterol 52 mg/dL (40-59); LDL Cholesterol,Direct 70 mg/dL (50-130)
[2018-11-21 11:25] LABS: Eosinophils % (Manual) 0 % (0.0-4.3); Total Cells Counted 100
[2018-11-21 11:26] LABS: Anisocytosis 1+; Ovalocytes 1+; Platelet Estimate Consistent w Auto; Poikilocytosis Few
[2018-11-21] MEDS ORDERED: MORPHINE IV ONE (11:45)
[2018-11-21] MEDS ORDERED: CALCIUM CHLORIDE 1,000 MG in NACL 0.9% 100 ML IV ONE (12:00)
--- NOTE | 2018-11-21 12:07 | History and Physical Report ---
History of Present Illness Chief complaint: Im swelling, and im short of breath History of present illness: 48 YO Male with ESRD on HD (T,R,Sa), HTN, PCKD, Cirrhosis, ESLD complicated by Ascites with serial paracentesis, Systolic CHF(EF 35%), GERD, Nicotine Dependence presents to ED for evaluation. Pt states that he experienced shortness of breath, Feeling bloated and tired for the past 1 week with worsening symptoms over the past 2 days. Pt acknowledges Orthopnea/PND, decreased exercise tolerance, dypsnea on exertion, dypsnea at rest. Pt states that he felt acutely worse this morning. Pt acknowledges chest pressure. Pt transported to [facility] via private vehicle. Pt seen and evaluated in ED and found to have symptoms consistent with CHF Decompensation, as well as Fluid overload secondary to ESRD and Hyperkalemia without EKG changes, as well as ESLD complicated by Ascites. Pt denies fever, chills, CP, palpitations, NVD, Trauma, BRBPR, Productive Cough, Skin Rash, prolonged travel/immobility, Individual/Family history or DVT/PE/Blood Clotting Disorders, hemoptysis, or recent ill contacts. Pt admitted to [facility]. Cardiology consulted in ED. Nephrology consulted in ED. IR consulted in ED for Therapeutic Paracentesis. Prior admission on 11/05/18 Reviewed. All listed medication reconciled at time of admission. Past History Past Medical History: ESRD, GERD, heart failure, hypertension, other (Cirrhosis, Nicotine Dependence) Past Surgical History: hernia repair, Other (AV Fistula) Social history: , lives with family, smoking. denies: alcohol abuse, prescription drug abuse Family history: diabetes, hypertension Medications and Allergies Allergies Allergy/AdvReac Type Severity Reaction Status Date / Time labetalol Allergy Vomiting Verified 10/16/18 15:22 polystyrene sulfonate Allergy Unknown Verified 10/16/18 13:24 [From Kayexalate] tramadol [From Ultram] AdvReac Dizziness Verified 03/05/18 15:30 Home Medications Medication Instructions Recorded Confirmed Last Taken Type Furosemide [Lasix TAB] 20 mg PO QDAY #30 tablet 10/29/18 11/21/18 11/13/18 Rx 20mg cloNIDine [Catapres] 0.2 mg PO BID #60 tablet 10/29/18 11/21/18 11/13/18 Rx 0.2mg hydrALAZINE [Apresoline TAB] 100 mg PO TID #90 tab 10/29/18 11/21/18 11/13/18 Rx 100mg Sevelamer Carbonate [Renvela] 1,600 mg PO TIDWM 11/21/18 11/21/18 Unknown History Active Meds: Active Medications Nicardipine HCl 50 mg/ Sodium (Chloride) 250 mls @ 25 mls/hr IV TITR FOSTER; Protocol Calcium Chloride 1,000 mg/ (Sodium Chloride) 110 mls @ 660 mls/hr IV ONCE ONE Stop: 11/21/18 12:09 Review of Systems Constitutional: weight gain, no weight loss, no fever, no chills, no sweats Ears, nose, mouth and throat: no ear pain, no ear discharge, no tinnitis, no decreased hearing, no nose pain, no nasal congestion Cardiovascular: orthopnea, edema, shortness of breath, dyspnea on exertion, paroxysmal nocturnal dyspnea, leg edema, decreased exercise tolerance, no chest pain, no palpitations, no rapid/irregular heart beat Respiratory: no cough, no cough with sputum, no excessive sputum, no hemoptysis Gastrointestinal: other (distention'), no abdominal pain, no nausea, no vomiting, no diarrhea Genitourinary Male: no hematuria, no flank pain, no discharge, no urinary frequency, no urinary hesitancy Rectal: no pain, no incontinence, no bleeding Musculoskeletal: no neck stiffness, no neck pain, no shooting arm pain, no arm numbness/tingling, no low back pain, no shooting leg pain Integumentary: no rash, no pruritis, no redness, no sores, no wounds Neurological: no transient paralysis, no paralysis, no weakness, no parathesias, no numbness, no tingling, no seizures Psychiatric: no anxiety, no memory loss, no change in sleep habits, no sleep disturbances, no hypersomnia, no change in appetite, no suicidal ideation Endocrine: no cold intolerance, no heat intolerance, no polyphagia, no polydipsia, no polyuria, no nocturia Hematologic/Lymphatic: no easy bruising, no easy bleeding Allergic/Immunologic: no urticaria, no allergic rhinitis, no wheezing Exam - Constitutional Vitals: Temp Pulse Resp BP Pulse Ox 98.8 F 73 25 H 195/112 97 11/21/18 08:01 11/21/18 11:11 11/21/18 11:11 11/21/18 11:11 11/21/18 11:11 General appearance: Present: mild distress, obese - EENT Eyes: Present: PERRL ENT: hearing intact, clear oral mucosa - Neck Neck: Present: supple, normal ROM - Respiratory Respiratory effort: normal Respiratory: bilateral: diminished, rhonchi - Cardiovascular Heart Sounds: Present: S1 & S2. Absent: rub, click - Extremities Extremities: pulses symmetrical Extremity abnormal: edema Peripheral Pulses: within normal limits - Abdominal General gastrointestinal: Present: soft, non-tender, distended, normal bowel sounds, other (positive fluid wave, no rebound/guarding si/sx of peritonitis) Male genitourinary: Present: normal - Integumentary Integumentary: Present: clear, warm, dry - Musculoskeletal Musculoskeletal: generalized weakness - Psychiatric Psychiatric: appropriate mood/affect, intact judgment & insight - Neurologic Neurologic: CNII-XII intact, moves all extremities, no gait normal Results - Labs CBC & Chem 7: 11/21/18 10:13 11/21/18 10:13 Labs: Abnormal lab results 11/21/18 11/21/18 11/21/18 Range/Units 10:13 10:13 10:13 RBC 3.35 L (3.65-5.03) M/mm3 Hgb 9.8 L (11.8-15.2) gm/dl Hct 30.9 L (35.5-45.6) % RDW 17.7 H (13.2-15.2) % Seg Neuts % (Manual) 76.0 H (40.0-70.0) % Lymphocytes % (Manual) 9.0 L (13.4-35.0) % Monocytes % (Manual) 11.0 H (0.0-7.3) % Basophils % (Manual) 2.0 H (0.0-1.8) % Lymphocytes # (Manual) 0.6 L (1.2-5.4) K/mm3 Potassium 6.8 H* (3.6-5.0) mmol/L BUN 69 H (9-20) mg/dL Creatinine 11.9 H (0.8-1.5) mg/dL Total Creatine Kinase 1357 H (55-170) units/L CK-MB (CK-2) 20.8 H (0.0-4.0) ng/mL Troponin T 0.773 H* (0.00-0.029) ng/mL Albumin 3.7 L (3.9-5) g/dL Assessment and Plan - Patient Problems (1) Acute exacerbation of CHF (congestive heart failure) Current Visit: Yes Status: Acute Qualifiers: Heart failure type: unspecified Qualified Code(s): I50.9 - Heart failure, unspecified Plan to address problem: Admit to IMCU, strict I/O, daily weight, cardiology consulted, Echo reviewed, diuresis, blood pressure control, chest x ray, supplemental oxygen. I suspect symptoms are moreso related to ESRD and fluid overload. Will complete urgent dialysis and monitor for symptoms improvement. (2) ESRD (end stage renal disease) Current Visit: Yes Status: Acute Plan to address problem: Nephrology consulted in ED for urgent dialysis, strict I/O, daily weight, monitor uop q shift, (3) Hyperkalemia Current Visit: Yes Status: Acute Plan to address problem: calcium carbonate, kayexelated, urgent dialysis, NO EKG changes. (4) Hypertensive urgency, malignant Current Visit: Yes Status: Acute Plan to address problem: Nicardipene drip initiated in ED but discontinued prior to dialysis, resume prehospital medication, monitor bp q shift, IV hydralazine prn for SBP >155, urgent dialysis. (5) Noncompliance with medication regimen Current Visit: No Status: Acute Plan to address problem: Pt counseled. continue current therapy. (6) PKD (polycystic kidney disease) Current Visit: No Status: Chronic Plan to address problem: supportive care, Nephrology consulted, dialysis as per renal team, strict I/O, daily weight, monitor uop q shift, avoid npehrotoxic agents. (7) Nicotine dependence Current Visit: Yes Status: Acute Qualifiers: Substance use status: in withdrawal Plan to address problem: supportive care, smoking cessation counseling (8) DVT prophylaxis Current Visit: No Status: Acute Plan to address problem: SCD to BLE while in bed, prophylactic heparin
[2018-11-21] MEDS ORDERED: LASIX IV ONE (12:15)
[2018-11-21] MEDS ORDERED: KIONEX PO ONE (12:15)
[2018-11-21] MEDS: CARDENE 50 MG in NACL 0.9% 250ML 230 ML IV SCH ×2 (12:33→23:32)
[2018-11-21] MEDS ORDERED: ASPIRIN PO SCH (13:00)
[2018-11-21] MEDS ORDERED: APRESOLINE IV PRN (13:02)
--- NOTE | 2018-11-21 15:08 | Consultation ---
History of Present Illness - Reason for Consult chronic renal failure, end stage renal disease, hyperkalemia - History of Present Illness 48-year-old -Citizen Of [place] male with past medical history of end-stage renal disease secondary to hypertension and adult polycystic kidney disease, who is well known to our staff from previous hospitalizations, who dialyzes at [facility], presented to the emergency department with abdominal distention and need for paracentesis. He had been noting also worsening shortness of breath. Labs noted in the ER with potassium acutely elevated this morning. P atient unable to get paracentesis. Nephrology called for dialysis needs. He typically dialyzes and Monday schedule. He noted does have a history of noncompliance in the past with his dialysis sessions. He states that he was last dialyzed on Monday. He dialyzes only for 3 hours. He is only able to tolerate 3 L of you maximum per session. He has considerable fluid overload and edema on examination. He is not very compliant with sodium and fluid restrictions. Patient was evaluated this afternoon in the dialysis unit. No acute complaints other than aforementioned. Patient dialyzes via left upper extremity AV fistula. Past History Past Medical History: ESRD, GERD, heart failure, hypertension, other (Cirrhosis, Nicotine Dependence) Past Surgical History: hernia repair, Other (AV Fistula) Social history: , lives with family, smoking. denies: alcohol abuse, prescription drug abuse Family history: diabetes, hypertension Medications and Allergies Allergies Allergy/AdvReac Type Severity Reaction Status Date / Time labetalol Allergy Vomiting Verified 10/16/18 15:22 polystyrene sulfonate Allergy Unknown Verified 10/16/18 13:24 [From Kayexalate] tramadol [From Ultram] AdvReac Dizziness Verified 03/05/18 15:30 Home Medications Medication Instructions Recorded Confirmed Last Taken Type Furosemide [Lasix TAB] 20 mg PO QDAY #30 tablet 10/29/18 11/21/18 11/13/18 Rx 20mg cloNIDine [Catapres] 0.2 mg PO BID #60 tablet 10/29/18 11/21/18 11/13/18 Rx 0.2mg hydrALAZINE [Apresoline TAB] 100 mg PO TID #90 tab 10/29/18 11/21/18 11/13/18 Rx 100mg Sevelamer Carbonate [Renvela] 1,600 mg PO TIDWM 11/21/18 11/21/18 Unknown Histor y Active Meds: Active Medications Aspirin (Aspirin) 325 mg PO PRN FOSTER Clonidine HCl (Catapres) 0.2 mg PO BID FOSTER Furosemide (Lasix) 20 mg IV 0600,1800 [facility] Heparin Sodium (Porcine) (Heparin) 5,000 unit SUB-Q Q12HR FOSTER Hydralazine HCl (Apresoline) 100 mg PO TID FOSTER Hydralazine HCl (Apresoline) 10 mg IV Q6HR PRN PRN Reason: Hypertension Nicardipine HCl 50 mg/ Sodium (Chloride) 250 mls @ 25 mls/hr IV TITR FOSTER; Protocol Last Admin: 11/21/18 12:33 Dose: 5 mg/hr, 25 mls/hr Documented by: Sevelamer Carbonate (Renvela) 1,600 mg PO TIDWM [facility] Review of Systems All systems: negative Constitutional: weight gain, weakness Cardiovascular: shortness of breath, dyspnea on exertion, leg edema Respiratory: cough, shortness of breath, dyspnea on exertion, congestion Gastrointestinal: abdominal pain Exam - Vital Signs Vital signs: Vital Signs Temp Pulse Resp BP Pulse Ox 98.8 F 66 24 206/107 96 11/21/18 08:01 11/21/18 08:01 11/21/18 08:01 11/21/18 08:01 11/21/18 08:01 - General Appearance General appearance: well-nourished, appears stated age, obese, moderate distress EENT: ATNC, PERRL Neck: Present: neck supple, trachea midline Respiratory: Decreased Breath Sounds Heart: regular, S1S2 Gastrointestinal: Present: normal, tenderness, distended Integumentary: warm and dry, chronic venous stasis Neurologic: no focal deficit, no asterixis, alert and oriented x3 Musculoskeletal: Present: other (3+ pitting edema) Psychiatric: mood/affect appropriate, cooperative Results - Lab Results 11/21/18 10:13 11/21/18 10:13 Most recent lab results Calcium 9.0 mg/dL (8.4-10.2) 11/21/18 10:13 Assessment and Plan - Patient Problems (1) ESRD (end stage renal disease) Current Visit: No Status: Chronic Plan to address problem: Patient is being dialyzed today with orders in chart at this time. Discussed with dialysis nursing staff. (2) Hyperkalemia Current Visit: Yes Status: Acute Plan to address problem: Will run on a 2 K dialysate. Please ensure the patient is on a low potassium diet. (3) Acute and chronic respiratory failure with hypoxia Current Visit: Yes Status: Acute Plan to address problem: Goal ultrafiltration 3 L today as tolerated. Have discussed with patient the importance of appropriate salt and fluid restriction. Further management per primary team. He is stable on nasal cannula at this time with adequate O2 sats noted. (4) Fluid overload Current Visit: Yes Status: Chronic Plan to address problem: Patient is significantly volume overloaded over his dry weight. We'll attempt to liters of ultrafiltration. Discussed with patient the importance of counting ultrafiltration. He is adamant stating that anytime we'll move more than 3 L of fluid he starts to have cramping. I discussed with him the importance of appropriate fluid and salt restriction. We will continue to monitor closely. (5) Hypertensive chronic kidney disease with stage 5 chronic kidney disease or end stage renal disease Current Visit: Yes Status: Chronic Plan to address problem: Continue current outpatient antihypertensive therapy. Large part of his hypertension is due to excessive volume and we will try to correct this with dialysis. (6) Ascites Current Visit: Yes Status: Chronic Plan to address problem: Recurrent issue with patient who has required multiple paracentesis. Planning for paracentesis tomorrow. Will follow with primary team.
[2018-11-21] MEDS: LASIX IV SCH (18:11)
[2018-11-21] MEDS: APRESOLINE PO SCH (18:22)
[2018-11-21] MEDS: RENVELA PO SCH (18:22)
[2018-11-21] MEDS: MORPHINE IV PRN (21:53)
[2018-11-21] MEDS: CATAPRES PO SCH (21:54)
[2018-11-22] MEDS: APRESOLINE PO SCH ×4 (00:10→13:07)
[2018-11-22] MEDS: HEPARIN SUB-Q SCH ×2 (00:11→10:00)
[2018-11-22] MEDS: LASIX IV SCH ×3 (05:32→18:26)
[2018-11-22] MEDS: RENVELA PO SCH ×3 (08:50→16:32)
--- NOTE | 2018-11-22 09:07 | Progress Note ---
Assessment and Plan Assessment and plan: -- Hypertensive emergency, s/p Nicardipene drip initiated in ED but discontinued prior to dialysis, Continue current home medications , when necessary hydralazine -- Acute exacerbation of CHF (congestive heart failure) Continue current antifailurel medication, Echo reviewed EF 35-40%, Al input-output, low-sodium diet, water restriction --Fluid overload/ascites ultrasound-guided abdominal paracentesis Pleural fluid analysis ,HD per Schedule --ESRD (end stage renal disease) Nephrology following, received hemodialysis -- Hyperkalemia calcium carbonate, kayexelated, urgent dialysis, NO EKG changes. -- Noncompliance with medication regimen Pt counseled. continue current therapy. -- PKD (polycystic kidney disease) supportive care, Nephrology consulted, dialysis as per renal team, strict I/O, daily weight, monitor uop q shift, avoid npehrotoxic agents. --Tobacco use: Nicotine dependence supportive care, smoking cessation counseling -- DVT prophylaxis SCD to BLE while in bed, prophylactic heparin Monitor closely and adjust management as needed patient is stable to be transferred out of the ICU to medical Floor Critical care time 32 minutes History Interval history: 48-year-old male patient with significant history of end-stage renal disease hypertension and polycystic kidney disease cirrhosis end-stage liver disease ascites was admitted through emergency room with worsening swelling edema, patient had repeated paracentesis in the past., Today patient slightly feels better Scheduled for abdominal paracentesis, Mild shortness of breath Vital signs noted Hospitalist Physical - Constitutional Vitals: Temp Pulse Resp BP Pulse Ox 97.7 F 68 27 H 165/90 63 L 11/22/18 08:00 11/22/18 08:45 11/22/18 08:45 11/22/18 08:45 11/22/18 08:45 General appearance: Present: mild distress, well-nourished, obese - EENT Eyes: Present: PERRL - Neck Neck: Present: supple, normal ROM - Respiratory Respiratory effort: normal Respiratory: bilateral: diminished, rales, negative: rhonchi, wheezing - Cardiovascular Rhythm: regular Heart Sounds: Present: S1 & S2 - Extremities Extremities: no ischemia, No edema - Abdominal General gastrointestinal: soft, non-tender, non-distended, normal bowel sounds - Integumentary Integumentary: Present: clear, warm - Psychiatric Psychiatric: appropriate mood/affect, cooperative - Neurologic Neurologic: CNII-XII intact, moves all extremities Results - Labs CBC & Chem 7: 11/22/18 10:15 11/22/18 10:15 Labs: Laboratory Last Values WBC 6.5 K/mm3 (4.5-11.0) 11/21/18 10:13 RBC 3.35 M/mm3 (3.65-5.03) L 11/21/18 10:13 Hgb 9.8 gm/dl (11.8-15.2) L 11/21/18 10:13 Hct 30.9 % (35.5-45.6) L 11/21/18 10:13 MCV 92 fl (84-94) 11/21/18 10:13 MCH 29 pg (28-32) 11/21/18 10:13 MCHC 32 % (32-34) 11/21/18 10:13 RDW 17.7 % (13.2-15.2) H 11/21/18 10:13 Plt Count 191 K/mm3 (140-440) 11/21/18 10:13 [place] % (Auto) [employer] 11/21/18 10:13 Add Manual Diff Complete 11/21/18 10:13 Total Counted 100 11/21/18 10:13 Seg Neuts % (Manual) 76.0 % (40.0-70.0) H 11/21/18 10:13 0 % 11/21/18 10:13 9.0 % (13.4-35.0) L 11/21/18 10:13 Reactive Lymphs % (Man) 0 % 11/21/18 10:13 11.0 % (0.0-7.3) H 11/21/18 10:13 0 % (0.0-4.3) 11/21/18 10:13 2.0 % (0.0-1.8) H 11/21/18 10:13 2.0 % 11/21/18 10:13 0 % 11/21/18 10:13 0 % 11/21/18 10:13 0 % 11/21/18 10:13 Nucleated RBC % Not Reportable 11/21/18 10:13 Seg Neutrophils # Man 4.9 K/mm3 (1.8-7.7) 11/21/18 10:13 Band Neutrophils # 0.0 K/mm3 11/21/18 10:13 0.6 K/mm3 (1.2-5.4) L 11/21/18 10:13 Abs React Lymphs (Man) 0.0 K/mm3 11/21/18 10:13 0.7 K/mm3 (0.0-0.8) 11/21/18 10:13 0.0 K/mm3 (0.0-0.4) 11/21/18 10:13 0.1 K/mm3 (0.0-0.1) 11/21/18 10:13 0.1 K/mm3 11/21/18 10:13 0.0 K/mm3 11/21/18 10:13 0.0 K/mm3 11/21/18 10:13 Blast Cells # 0.0 K/mm3 11/21/18 10:13 WBC Morphology Not Reportable 11/21/18 10:13 Hypersegmented Neuts Not Reportable 11/21/18 10:13 Hyposegmented Neuts Not Reportable 11/21/18 10:13 Hypogranular Neuts Not Reportable 11/21/18 10:13 Not Reportable 11/21/18 10:13 Not Reportable 11/21/18 10:13 Not Reportable 11/21/18 10:13 Not Reportable 11/21/18 10:13 Not Reportable 11/21/18 10:13 Not Reportable 11/21/18 10:13 Consistent w auto 11/21/18 10:13 Not Reportable 11/21/18 10:13 Plt Clumps, EDTA Not Reportable 11/21/18 10:13 Not Reportable 11/21/18 10:13 Not Reportable 11/21/18 10:13 Not Reportable 11/21/18 10:13 Plt Morphology Comment Not Reportable 11/21/18 10:13 RBC Morphology Not Reportable 11/21/18 10:13 Dimorphic RBCs Not Reportable 11/21/18 10:13 Not Reportable 11/21/18 10:13 Not Reportable 11/21/18 10:13 Few 11/21/18 10:13 1+ 11/21/18 10:13 Not Reportable 11/21/18 10:13 Not Reportable 11/21/18 10:13 Not Reportable 11/21/18 10:13 Not Reportable 11/21/18 10:13 Not Reportable 11/21/18 10:13 Not Reportable 11/21/18 10:13 Not Reportable 11/21/18 10:13 1+ 11/21/18 10:13 Not Reportable 11/21/18 10:13 Not Reportable 11/21/18 10:13 Not Reportable 11/21/18 10:13 Not Reportable 11/21/18 10:13 Not Reportable 11/21/18 10:13 Not Reportable 11/21/18 10:13 Not Reportable 11/21/18 10:13 Acanthocytes (Spur) Not Reportable 11/21/18 10:13 Rouleaux Not Reportable 11/21/18 10:13 Not Reportable 11/21/18 10:13 Not Reportable 11/21/18 10:13 Not Reportable 11/21/18 10:13 Not Reportable 11/21/18 10:13 Hem Pathologist Commnt No 11/21/18 10:13 Sodium 142 mmol/L (137-145) 11/21/18 10:13 Potassium 6.8 mmol/L (3.6-5.0) H* 11/21/18 10:13 Chloride 98.5 mmol/L (98-107) 11/21/18 10:13 Carbon Dioxide 23 mmol/L (22-30) 11/21/18 10:13 27 mmol/L 11/21/18 10:13 BUN 69 mg/dL (9-20) H 11/21/18 10:13 11.9 mg/dL (0.8-1.5) H 11/21/18 10:13 Estimated GFR 6 ml/min 11/21/18 10:13 6 % 11/21/18 10:13 Glucose 99 mg/dL (75-100) 11/21/18 10:13 Calcium 9.0 mg/dL (8.4-10.2) 11/21/18 10:13 0.60 mg/dL (0.1-1.2) 11/21/18 10:13 AST 17 units/L (5-40) 11/21/18 10:13 ALT 14 units/L (7-56) 11/21/18 10:13 72 units/L (35-129) 11/21/18 10:13 1357 units/L (55-170) H 11/21/18 10:13 CK-MB (CK-2) 20.8 ng/mL (0.0-4.0) H 11/21/18 10:13 CK-MB (CK-2) Rel Index 1.5 (0-4) 11/21/18 10:13 0.773 ng/mL (0.00-0.029) H* 11/21/18 10:13 NT-Pro-B Natriuret Pep > 34284 pg/mL (0-450) H 11/21/18 10:13 7.5 g/dL (6.3-8.2) 11/21/18 10:13 3.7 g/dL (3.9-5) L 11/21/18 10:13 1.0 % 11/21/18 10:13 Triglycerides 42 mg/dL (2-149) 11/21/18 10:13 Cholesterol 122 mg/dL (50-199) 11/21/18 10:13 70 mg/dL (50-130) 11/21/18 10:13 52 mg/dL (40-59) 11/21/18 10:13 2.34 % 11/21/18 10:13 Active Medications - Current Medications Current Medications: Generic Name Dose Route Start Last Admin Trade Name Freq PRN Reason Stop Dose Admin Aspirin 325 mg 11/22/18 18:00 Aspirin PO PRN FOSTER Clonidine HCl 0.2 mg 11/21/18 22:00 11/21/18 21:54 Catapres PO 0.2 mg BID FOSTER Administration Furosemide 20 mg 11/21/18 18:00 11/22/18 05:32 Lasix IV 20 mg 0600,1800 FOSTER Administration Heparin Sodium (Porcine) 5,000 unit 11/21/18 22:00 11/22/18 00:11 Heparin SUB-Q Not Given Q12HR FOSTER Hydralazine HCl 100 mg 11/21/18 14:00 11/22/18 00:12 Apresoline PO Not Given TID FOSTER Hydralazine HCl 10 mg 11/21/18 13:02 Apresoline IV Q6HR PRN Hypertension Nicardipine HCl 50 mg/ Sodium 250 mls @ 25 mls/hr 11/21/18 12:00 11/22/18 03:30 Chloride IV 0 mg/hr TITR FOSTER 0 mls/hr Titration Protocol 5 MG/HR Morphine Sulfate 2 mg 11/21/18 21:25 11/21/18 21:53 Morphine IV 2 mg Q4H PRN Administration Pain, Moderate (4-6) Sevelamer Carbonate 1,600 mg 11/21/18 17:00 11/21/18 18:22 Renvela PO 1,600 mg TIDWM FOSTER Administration
[2018-11-22] MEDS: CATAPRES PO SCH (09:12)
--- NOTE | 2018-11-22 09:39 | Progress Note ---
Assessment and Plan - Patient Problems (1) ESRD (end stage renal disease) Current Visit: No Status: Chronic Plan to address problem: Patient was dialyzed yesterday. Labs pending this am, but if stable, then no acute HD needs today. (2) Hyperkalemia Current Visit: Yes Status: Acute Plan to address problem: Will run on a 2 K dialysate. Please ensure the patient is on a low potassium diet. (3) Acute and chronic respiratory failure with hypoxia Current Visit: Yes Status: Acute Plan to address problem: s/p ultrafiltration 3 L yesterday, which he tolerated. Have discussed with patient the importance of appropriate salt and fluid restriction. Further man agement per primary team. He is stable on nasal cannula at this time with adequate O2 sats noted. (4) Fluid overload Current Visit: Yes Status: Chronic Plan to address problem: Patient is significantly volume overloaded over his dry weight. Discussed with patient the importance of fluid restriction and challenging dry weight. He is adamant stating that anytime we'll move more than 3 L of fluid he starts to have cramping. I discussed with him the importance of appropriate fluid and salt restriction. We will continue to monitor closely. (5) Hypertensive chronic kidney disease with stage 5 chronic kidney disease or end stage renal disease Current Visit: Yes Status: Chronic Plan to address problem: Patient off cardene gtt. Continue current outpatient antihypertensive therapy. Large part of his hypertension is due to excessive volume and we will try to correct this with dialysis. (6) Ascites Current Visit: Yes Status: Chronic Plan to address problem: Recurrent issue with patient who has required multiple paracentesis. Planning for paracentesis today. Will follow with primary team. Subjective Date of service: 11/22/18 Interval history: Patient was able to be dialyzed with removal of 3L. He is pending paracentesis today. He was transferred to the ICU secondary to elevated blood pressures and need for cardene gtt. He has now been weaned off. Objective - Vital Signs Vital signs: Vital Signs - 12hr 11/21/18 11/21/18 11/21/18 21:45 21:53 21:54 Temperature Pulse Rate 70 70 Pulse Rate [ From Monitor] Respiratory 20 16 Rate Respiratory Rate [Abdomen] Blood Pressure 158/86 161/86 O2 Sat by Pulse 97 Oximetry 11/21/18 11/21/18 11/21/18 22:00 22:15 22:23 Temperature Pulse Rate 69 67 Pulse Rate [ From Monitor] Respiratory 18 25 H 13 Rate Respiratory 21 Rate [Abdomen] Blood Pressure 172/84 168/84 O2 Sat by Pulse 99 98 Oximetry 11/21/18 11/21/18 11/21/18 22:30 22:45 23:00 Temperature Pulse Rate 67 68 68 Pulse Rate [ From Monitor] Respiratory 13 14 17 Rate Respiratory Rate [Abdomen] Blood Pressure 173/88 173/88 169/82 O2 Sat by Pulse 99 97 97 Oximetry 11/21/18 11/21/18 11/21/18 23:15 23:30 23:45 Temperature Pulse Rate 66 67 68 Pulse Rate [ From Monitor] Respiratory 25 H 11 L 23 Rate Respiratory Rate [Abdomen] Blood Pressure 161/83 171/87 171/87 O2 Sat by Pulse 96 98 96 Oximetry 11/21/18 11/21/18 11/22/18 23:47 23:59 00:00 Temperature 97.8 F Pulse Rate 68 78 66 Pulse Rate [ 78 From Monitor] Respiratory 24 16 Rate Respiratory Rate [Abdomen] Blood Pressure 168/81 169/85 O2 Sat by Pulse 96 97 Oximetry 11/22/18 11/22/18 11/22/18 00:15 00:30 00:45 Temperature Pulse Rate 64 66 69 Pulse Rate [ From Monitor] Respiratory 24 24 12 Rate Respiratory Rate [Abdomen] Blood Pressure 169/85 160/90 160/90 O2 Sat by Pulse 98 96 97 Oximetry 11/22/18 11/22/18 11/22/18 01:00 01:15 01:31 Temperature Pulse Rate 69 70 67 Pulse Rate [ From Monitor] Respiratory 19 19 22 Rate Respiratory Rate [Abdomen] Blood Pressure 160/90 160/90 160/90 O2 Sat by Pulse 100 96 99 Oximetry 11/22/18 11/22/18 11/22/18 01:45 02:00 02:15 Temperature Pulse Rate 66 65 63 Pulse Rate [ From Monitor] Respiratory 21 24 19 Rate Respiratory Rate [Abdomen] Blood Pressure 162/90 162/90 158/84 O2 Sat by Pulse 98 99 95 Oximetry 11/22/18 11/22/18 11/22/18 02:30 02:45 03:00 Temperature Pulse Rate 64 65 62 Pulse Rate [ From Monitor] Respiratory 22 22 24 Rate Respiratory Rate [Abdomen] Blood Pressure 165/91 158/84 O2 Sat by Pulse 92 96 95 Oximetry 06/27/19 06/27/19 06/27/19 03:15 03:30 03:45 Temperature Pulse Rate 63 62 62 Pulse Rate [ From Monitor] Respiratory 24 22 21 Rate Respiratory Rate [Abdomen] Blood Pressure 158/84 147/81 161/83 O2 Sat by Pulse 97 95 96 Oximetry 11/22/18 11/22/18 11/22/18 04:00 04:15 04:30 Temperature 98.3 F Pulse Rate 63 64 64 Pulse Rate [ 63 From Monitor] Respiratory 21 21 21 Rate Respiratory Rate [Abdomen] Blood Pressure 161/83 156/81 155/90 O2 Sat by Pulse 97 97 96 Oximetry 11/22/18 11/22/18 11/22/18 04:45 05:00 05:15 Temperature Pulse Rate 64 67 67 Pulse Rate [ From Monitor] Respiratory 15 23 22 Rate Respiratory Rate [Abdomen] Blood Pressure 155/90 160/89 157/88 O2 Sat by Pulse 96 96 96 Oximetry 11/22/18 11/22/18 11/22/18 05:30 05:45 06:00 Temperature Pulse Rate 70 73 68 Pulse Rate [ From Monitor] Respiratory 22 22 22 Rate Respiratory Rate [Abdomen] Blood Pressure 163/90 173/96 173/96 O2 Sat by Pulse 96 97 98 Oximetry 11/22/18 11/22/18 11/22/18 06:15 06:30 06:45 Temperature Pulse Rate 69 68 69 Pulse Rate [ From Monitor] Respiratory 20 19 20 Rate Respiratory Rate [Abdomen] Blood Pressure 170/94 173/93 173/93 O2 Sat by Pulse 99 99 99 Oximetry 11/22/18 11/22/18 11/22/18 07:01 07:15 07:30 Temperature Pulse Rate 66 67 66 Pulse Rate [ From Monitor] Respiratory 18 20 20 Rate Respiratory Rate [Abdomen] Blood Pressure 165/89 165/89 169/96 O2 Sat by Pulse 100 100 100 Oximetry 11/22/18 11/22/18 11/22/18 07:45 08:00 08:15 Temperature 97.7 F Pulse Rate 66 65 66 Pulse Rate [ 66 From Monitor] Respiratory 24 22 22 Rate Respiratory Rate [Abdomen] Blood Pressure 169/96 164/92 171/91 O2 Sat by Pulse 100 100 100 Oximetry 11/22/18 11/22/18 11/22/18 08:30 08:45 09:12 Temperature Pulse Rate 66 68 65 Pulse Rate [ From Monitor] Respiratory 25 H 27 H Rate Respiratory Rate [Abdomen] Blood Pressure 165/90 165/90 173/94 O2 Sat by Pulse 95 63 L Oximetry - General Appearance General appearance: well-developed, well-nourished, appears stated age, obese EENT: ATNC, PERRL Neck: no JVD Respiratory: Present: Decreased Breath Sounds Cardiology: regular, S1S2 Gastrointestinal: tenderness, distended Integumentary: warm and dry Neurologic: no focal deficit, alert and oriented x3 Musculoskeletal: other (+edema ) Psychiatric: mood/affect appropriate, cooperative - Lab 11/21/18 10:13 11/21/18 10:13 Most recent lab results Calcium 9.0 mg/dL (8.4-10.2) 11/21/18 10:13 - Allied health notes Allied health notes reviewed: nursing Medications & Allergies - Medications Allergies/Adverse Reactions: Allergies labetalol Allergy (Verified 10/16/18 15:22) Vomiting pt also reports drastic drop in HR polystyrene sulfonate [From Kayexalate] Allergy (Verified 10/16/18 13:24) Unknown tramadol [From Ultram] Adverse Reaction (Verified 03/05/18 15:30) Dizziness Home Medications: Home Medications Medication Instructions Recorded Confirmed Last Taken Type Furosemide [Lasix TAB] 20 mg PO QDAY #30 tablet 10/29/18 11/21/18 11/13/18 Rx 20mg cloNIDine [Catapres] 0.2 mg PO BID #60 tablet 10/29/18 11/21/18 11/13/18 Rx 0.2mg hydrALAZINE [Apresoline TAB] 100 mg PO TID #90 tab 10/29/18 11/21/18 11/13/18 Rx 100mg Sevelamer Carbonate [Renvela] 1,600 mg PO TIDWM 11/21/18 11/21/18 Unknown History Active Medications: Generic Name Dose Route Start Last Admin Trade Name Freq PRN Reason Stop Dose Admin Aspirin 325 mg 11/22/18 18:00 Aspirin PO PRN [facility] Clonidine HCl 0.2 mg 11/21/18 22:00 11/22/18 09:12 Catapres PO 0.2 mg BID [facility] Administration Furosemide 20 mg 11/21/18 18:00 11/22/18 05:32 Lasix IV 20 mg 0600,1800 [facility] Administration Heparin Sodium (Porcine) 5,000 unit 11/21/18 22:00 11/22/18 00:11 Heparin SUB-Q Not Given Q12HR [facility] Hydralazine HCl 100 mg 11/21/18 14:00 11/22/18 00:12 Apresoline PO Not Given TID [facility] Hydralazine HCl 10 mg 11/21/18 13:02 Apresoline IV Q6HR PRN Hypertension Nicardipine HCl 50 mg/ Sodium 250 mls @ 25 mls/hr 11/21/18 12:00 11/22/18 03:30 Chloride IV 0 mg/hr TITR FOST[facility] 0 mls/hr Titration Protocol 5 MG/HR Morphine Sulfate 2 mg 11/21/18 21:25 11/21/18 21:53 Morphine IV 2 mg Q4H PRN Administration Pain, Moderate (4-6) Sevelamer Carbonate 1,600 mg 11/21/18 17:00 11/22/18 08:50 Renvela PO 1,600 mg TIDWM [facility] Administration
[2018-11-22] MEDS: MORPHINE IV PRN (10:12)
[2018-11-22 10:28] LABS: Basophils # (Auto) 0.1 K/mm3 (0.0-0.1); Basophils % (Auto) 0.8 % (0.0-1.8); Eosinophils # (Auto) 0.2 K/mm3 (0.0-0.4); Eosinophils % (Auto) 2.8 % (0.0-4.3); Hemoglobin 9.3 gm/dl (11.8-15.2); Lymphocytes # (Auto) 0.9 K/mm3 (1.2-5.4); Lymphocytes % (Auto) 13.1 % (13.4-35.0); Mean Corpuscular HGB Conc 32 % (32-34); Mean Corpuscular Volume 92 fl (84-94); Monocytes # (Auto) 0.9 K/mm3 (0.0-0.8); Monocytes % (Auto) 13.5 % (0.0-7.3); Platelet Count 187 K/mm3 (140-440); Red Blood Count 3.16 M/mm3 (3.65-5.03)
[2018-11-22 10:52] LABS: Creatine Kinase MB 13.6 ng/mL (0.0-4.0)
[2018-11-22 10:55] LABS: Albumin 3.4 g/dL (3.9-5)
--- NOTE | 2018-11-22 11:53 | Consultation ---
History of Present Illness Consult date: 11/22/18 Consult reason: congestive heart failure History of present illness: Mr Ledbetter is a 48-year old man that has a history of hypothyroidism, hyper tension, end-stage renal disease on hemodialysis, chronic ascites requiring frequent paracentesis. He also has chronic systolic heart failure, non-ischemic cardiomyopathy by non-invasive cardiac stress thallium test within the last year that documents a normal perfusion scan but a decreased left ventricular systolic function with an ejection fraction 30-35% by echocardiogram. Patient is admitted with uncontrolled hypertension, volume overload, heart failure and worsening ascites. Initial labs revealed severe hyperkalemia, potassium of 6.8. An ECG is normal sinus rhythm. Past History Past Medical History: ESRD, GERD, heart failure, hypertension Past Surgical History: hernia repair, Other (AV Fistula) Social history: , lives with family, smoking. denies: alcohol abuse, prescription drug abuse Family history: diabetes, hypertension Medications and Allergies Allergies Allergy/AdvReac Type Severity Reaction Status Date / Time labetalol Allergy Vomiting Verified 10/16/18 15:22 polystyrene sulfonate Allergy Unknown Verified 10/16/18 13:24 [From Kayexalate] tramadol [From Ultram] AdvReac Dizziness Verified 03/05/18 15:30 Home Medications Medication Instructions Recorded Confirmed Last Taken Type Furosemide [Lasix TAB] 20 mg PO QDAY #30 tablet 10/29/18 11/21/18 11/13/18 Rx 20mg cloNIDine [Catapres] 0.2 mg PO BID #60 tablet 10/29/18 11/21/18 11/13/18 Rx 0.2mg hydrALAZINE [Apresoline TAB] 100 mg PO TID #90 tab 10/29/18 11/21/18 11/13/18 Rx 100mg Sevelamer Carbonate [Renvela] 1,600 mg PO TIDWM 11/21/18 11/21/18 Unknown History Active Meds: Active Medications Aspirin (Aspirin) 325 mg PO PRN [facility] Clonidine HCl (Catapres) 0.2 mg PO BID [facility] Last Admin: 11/22/18 09:12 Dose: 0.2 mg Documented by: Furosemide (Lasix) 20 mg IV 0600,1800 [facility] Last Admin: 11/22/18 05:32 Dose: 20 mg Documented by: Heparin Sodium (Porcine) (Heparin) 5,000 unit SUB-Q Q12HR [facility] Last Admin: 11/22/18 10:00 Dose: Not Given Documented by: Hydralazine HCl (Apresoline) 100 mg PO TID [facility] Last Admin: 11/22/18 08:00 Dose: Not Given Documented by: Hydralazine HCl (Apresoline) 10 mg IV Q6HR PRN PRN Reason: Hypertension Nicardipine HCl 50 mg/ Sodium (Chloride) 250 mls @ 25 mls/hr IV TITR [facility]; Protocol Last Titration: 11/22/18 03:30 Dose: 0 mg/hr, 0 mls/hr Documented by: Morphine Sulfate (Morphine) 2 mg IV Q4H PRN PRN Reason: Pain, Moderate (4-6) Last Admin: 11/22/18 10:12 Dose: 2 mg Documented by: Sevelamer Carbonate (Renvela) 1,600 mg PO TIDWM [facility] Last Admin: 11/22/18 08:50 Dose: 1,600 mg Documented by: Physical Examination Vital Signs Temp Pulse Resp BP Pulse Ox 98.8 F 66 24 206/107 96 11/21/18 08:01 11/21/18 08:01 11/21/18 08:01 11/21/18 08:01 11/21/18 08:01 General appearance: no acute distress HEENT: Positive: PERRL Cardiac: Positive: Reg Rate and Rhythm Lungs: Positive: Decreased Breath Sounds Neuro: Positive: Grossly Intact Results 11/22/18 10:15 11/22/18 10:15 Cardiac Enzymes 11/22/18 11/22/18 Range/Units 10:15 10:15 AST 19 (5-40) units/L CK-MB (CK-2) 13.6 H (0.0-4.0) ng/mL CBC 11/22/18 Range/Units 10:15 WBC 6.7 (4.5-11.0) K/mm3 RBC 3.16 L (3.65-5.03) M/mm3 Hgb 9.3 L (11.8-15.2) gm/dl Hct 29.0 L (35.5-45.6) % Plt Count 187 (140-440) K/mm3 Lymph # 0.9 L (1.2-5.4) K/mm3 Brantley # 0.9 H (0.0-0.8) K/mm3 Eos # 0.2 (0.0-0.4) K/mm3 Baso # 0.1 (0.0-0.1) K/mm3 Comprehensive Metabolic Panel 11/22/18 Range/Units 10:15 Sodium 141 (137-145) mmol/L Potassium 5.8 H (3.6-5.0) mmol/L Chloride 98.4 (98-107) mmol/L Carbon Dioxide 26 (22-30) mmol/L BUN 61 H (9-20) mg/dL Creatinine 11.0 H (0.8-1.5) mg/dL Glucose 96 (75-100) mg/dL Calcium 9.0 (8.4-10.2) mg/dL AST 19 (5-40) units/L ALT 13 (7-56) units/L Alkaline Phosphatase 67 (35-129) units/L Total Protein 6.9 (6.3-8.2) g/dL Albumin 3.4 L (3.9-5) g/dL Assessment and Plan Volume overload Chronic Ascites End-stage renal disease on hemodialysis Chronic systolic heart failure Nonischemic Cardiomyopathy EF 30-35% by echo 12/2017 no ischemia on MPI 12/2017 Hypertension -uncontrolled Hypothyroidism Recommendations: Fluid/sodium restriction. Dialysis for fluid removal. Optimal BP management. Medical therapy for chronic systolic heart failure and nonischemic cardiomyopathy.
--- NOTE | 2018-11-22 12:20 | Ultrasound Report ---
ULTRASOUND PARACENTESIS HISTORY: Ascites. DESCRIPTION OF PROCEDURE: A time out was performed. Informed consent was obtained. Sterile technique was utilized. Using ultrasound guidance, a 5 [place] centesis needle was advanced into the peritoneal space. There was spontaneous return of clear yellow fluid. 2.7 L of fluid was drained. 120 cc of fluid was sent to laboratory for analysis. No complications. IMPRESSION: Successful ultrasound-guided paracentesis.
--- NOTE | 2018-11-22 13:46 | Consultation ---
History of Present Illness Consult date: 11/22/18 Requesting physician: DAHLIA MORIN Reason for consult: other (Hypertensive emergency) History of present illness: PULMONARY/CCM CONSULT NOTE (Full dictation # [id number]) Please see dictated notes for full details Past History Past Medical History: ESRD, GERD, heart failure, hypertension, other (Cirrhosis, Nicotine Dependence) Past Surgical History: hernia repair, Other (AV Fistula) Social history: , lives with family, smoking. denies: alcohol abuse, prescription drug abuse Family history: diabetes, hypertension Medications and Allergies Allergies Allergy/AdvReac Type Severity Reaction Status Date / Time labetalol Allergy Vomiting Verified 10/16/18 15:22 polystyrene sulfonate Allergy Unknown Verified 10/16/18 13:24 [From Kayexalate] tramadol [From Ultram] AdvReac Dizziness Verified 03/05/18 15:30 Home Medications Medication Instructions Recorded Confirmed Last Taken Type Furosemide [Lasix TAB] 20 mg PO QDAY #30 tablet 10/29/18 11/21/18 11/13/18 Rx 20mg cloNIDine [Catapres] 0.2 mg PO BID #60 tablet 10/29/18 11/21/18 11/13/18 Rx 0.2mg hydrALAZINE [Apresoline TAB] 100 mg PO TID #90 tab 10/29/18 11/21/18 11/13/18 Rx 100mg Sevelamer Carbonate [Renvela] 1,600 mg PO TIDWM 11/21/18 11/21/18 Unknown History Active Meds: Active Medications Aspirin (Aspirin) 325 mg PO PRN [facility] Clonidine HCl (Catapres) 0.2 mg PO BID [facility] Last Admin: 11/22/18 09:12 Dose: 0.2 mg Documented by: Furosemide (Lasix) 20 mg IV 0600,1800 [facility] Last Admin: 11/22/18 05:32 Dose: 20 mg Documented by: Heparin Sodium (Porcine) (Heparin) 5,000 unit SUB-Q Q12HR [facility] Last Admin: 11/22/18 10:00 Dose: Not Given Documented by: Hydralazine HCl (Apresoline) 100 mg PO TID [facility] Last Admin: 11/22/18 13:07 Dose: Not Given Documented by: Hydralazine HCl (Apresoline) 10 mg IV Q6HR PRN PRN Reason: Hypertension Nicardipine HCl 50 mg/ Sodium (Chloride) 250 mls @ 25 mls/hr IV TITR [facility]; Protocol Last Titration: 11/22/18 03:30 Dose: 0 mg/hr, 0 mls/hr Documented by: Morphine Sulfate (Morphine) 2 mg IV Q4H PRN PRN Reason: Pain, Moderate (4-6) Last Admin: 11/22/18 10:12 Dose: 2 mg Documented by: Sevelamer Carbonate (Renvela) 1,600 mg PO TIDWM [facility] Last Admin: 11/22/18 12:51 Dose: 1,600 mg Documented by: Physical Examination Vital signs: Vital Signs Temp Pulse Resp BP Pulse Ox 98.8 F 66 24 206/107 96 11/21/18 08:01 11/21/18 08:01 11/21/18 08:01 11/21/18 08:01 11/21/18 08:01 Results - Laboratory Findings CBC and BMP: 11/22/18 10:15 11/22/18 10:15 Abnormal lab findings: Abnormal Labs 11/21/18 11/21/18 11/21/18 10:13 10:13 10:13 RBC 3.35 L Hgb 9.8 L Hct 30.9 L RDW 17.7 H Lymph % (Auto) Hand % (Auto) Lymph # Hand # Seg Neuts % (Manual) 76.0 H Lymphocytes % (Manual) 9.0 L Monocytes % (Manual) 11.0 H Basophils % (Manual) 2.0 H Lymphocytes # (Manual) 0.6 L Potassium 6.8 H* BUN 69 H Creatinine 11.9 H Total Creatine Kinase 1357 H CK-MB (CK-2) 20.8 H Troponin T 0.773 H* NT-Pro-B Natriuret Pep > 21447 H Albumin 3.7 L 11/22/18 11/22/18 11/22/18 10:15 10:15 10:15 RBC 3.16 L Hgb 9.3 L Hct 29.0 L RDW 18.0 H Lymph % (Auto) 13.1 L Hand % (Auto) 13.5 H Lymph # 0.9 L Hand # 0.9 H Seg Neuts % (Manual) Lymphocytes % (Manual) Monocytes % (Manual) Basophils % (Manual) Lymphocytes # (Manual) Potassium 5.8 H BUN 61 H Creatinine 11.0 H Total Creatine Kinase 1046 H CK-MB (CK-2) 13.6 H Troponin T 0.750 H* NT-Pro-B Natriuret Pep Albumin 3.4 L
--- NOTE | 2018-11-22 13:54 | Progress Note ---
Hospitalist Physical - Constitutional Vitals: Temp Pulse Resp BP Pulse Ox 97.7 F 63 21 169/88 90 11/22/18 08:00 11/22/18 13:00 11/22/18 13:00 11/22/18 13:00 11/22/18 13:00 General appearance: Present: mild distress, obese Results - Labs CBC & Chem 7: 11/22/18 10:15 11/22/18 10:15 Labs: Laboratory Last Values WBC 6.7 K/mm3 (4.5-11.0) 11/22/18 10:15 RBC 3.16 M/mm3 (3.65-5.03) L 11/22/18 10:15 Hgb 9.3 gm/dl (11.8-15.2) L 11/22/18 10:15 Hct 29.0 % (35.5-45.6) L 11/22/18 10:15 MCV 92 fl (84-94) 11/22/18 10:15 MCH 30 pg (28-32) 11/22/18 10:15 MCHC 32 % (32-34) 11/22/18 10:15 RDW 18.0 % (13.2-15.2) H 11/22/18 10:15 Plt Count 187 K/mm3 (140-440) 11/22/18 10:15 Lymph % (Auto) 13.1 % (13.4-35.0) L 11/22/18 10:15 Collin % (Auto) 13.5 % (0.0-7.3) H 11/22/18 10:15 Eos % (Auto) 2.8 % (0.0-4.3) 11/22/18 10:15 Baso % (Auto) 0.8 % (0.0-1.8) 11/22/18 10:15 Lymph # 0.9 K/mm3 (1.2-5.4) L 11/22/18 10:15 Collin # 0.9 K/mm3 (0.0-0.8) H 11/22/18 10:15 Eos # 0.2 K/mm3 (0.0-0.4) 11/22/18 10:15 Baso # 0.1 K/mm3 (0.0-0.1) 11/22/18 10:15 Add Manual Diff Complete 11/21/18 10:13 Total Counted 100 11/21/18 10:13 Seg Neutrophils % 69.8 % (40.0-70.0) 11/22/18 10:15 Seg Neuts % (Manual) 76.0 % (40.0-70.0) H 11/21/18 10:13 0 % 11/21/18 10:13 9.0 % (13.4-35.0) L 11/21/18 10:13 Reactive Lymphs % (Man) 0 % 11/21/18 10:13 11.0 % (0.0-7.3) H 11/21/18 10:13 0 % (0.0-4.3) 11/21/18 10:13 2.0 % (0.0-1.8) H 11/21/18 10:13 2.0 % 11/21/18 10:13 0 % 11/21/18 10:13 0 % 11/21/18 10:13 0 % 11/21/18 10:13 Nucleated RBC % Not Reportable 11/21/18 10:13 Seg Neutrophils # 4.7 K/mm3 (1.8-7.7) 11/22/18 10:15 Seg Neutrophils # Man 4.9 K/mm3 (1.8-7.7) 11/21/18 10:13 Band Neutrophils # 0.0 K/mm3 11/21/18 10:13 0.6 K/mm3 (1.2-5.4) L 11/21/18 10:13 Abs React Lymphs (Man) 0.0 K/mm3 11/21/18 10:13 0.7 K/mm3 (0.0-0.8) 11/21/18 10:13 0.0 K/mm3 (0.0-0.4) 11/21/18 10:13 0.1 K/mm3 (0.0-0.1) 11/21/18 10:13 0.1 K/mm3 11/21/18 10:13 0.0 K/mm3 11/21/18 10:13 0.0 K/mm3 11/21/18 10:13 Blast Cells # 0.0 K/mm3 11/21/18 10:13 WBC Morphology Not Reportable 11/21/18 10:13 Hypersegmented Neuts Not Reportable 11/21/18 10:13 Hyposegmented Neuts Not Reportable 11/21/18 10:13 Hypogranular Neuts Not Reportable 11/21/18 10:13 Not Reportable 11/21/18 10:13 Not Reportable 11/21/18 10:13 Not Reportable 11/21/18 10:13 Not Reportable 11/21/18 10:13 Not Reportable 11/21/18 10:13 Not Reportable 11/21/18 10:13 Consistent w auto 11/21/18 10:13 Not Reportable 11/21/18 10:13 Plt Clumps, EDTA Not Reportable 11/21/18 10:13 Not Reportable 11/21/18 10:13 Not Reportable 11/21/18 10:13 Not Reportable 11/21/18 10:13 Plt Morphology Comment Not Reportable 11/21/18 10:13 RBC Morphology Not Reportable 11/21/18 10:13 Dimorphic RBCs Not Reportable 11/21/18 10:13 Not Reportable 11/21/18 10:13 Not Reportable 11/21/18 10:13 Few 11/21/18 10:13 1+ 11/21/18 10:13 Not Reportable 11/21/18 10:13 Not Reportable 11/21/18 10:13 Not Reportable 11/21/18 10:13 Not Reportable 11/21/18 10:13 Not Reportable 11/21/18 10:13 Not Reportable 11/21/18 10:13 Not Reportable 11/21/18 10:13 1+ 11/21/18 10:13 Not Reportable 11/21/18 10:13 Not Reportable 11/21/18 10:13 Not Reportable 11/21/18 10:13 Not Reportable 11/21/18 10:13 Not Reportable 11/21/18 10:13 Not Reportable 11/21/18 10:13 Not Reportable 11/21/18 10:13 Acanthocytes (Spur) Not Reportable 11/21/18 10:13 Rouleaux Not Reportable 11/21/18 10:13 Not Reportable 11/21/18 10:13 Not Reportable 11/21/18 10:13 Not Reportable 11/21/18 10:13 Not Reportable 11/21/18 10:13 Hem Pathologist Commnt No 11/21/18 10:13 Sodium 141 mmol/L (137-145) 11/22/18 10:15 Potassium 5.8 mmol/L (3.6-5.0) H 11/22/18 10:15 Chloride 98.4 mmol/L (98-107) 11/22/18 10:15 Carbon Dioxide 26 mmol/L (22-30) 11/22/18 10:15 22 mmol/L 11/22/18 10:15 BUN 61 mg/dL (9-20) H 11/22/18 10:15 11.0 mg/dL (0.8-1.5) H 11/22/18 10:15 Estimated GFR 6 ml/min 11/22/18 10:15 6 % 11/22/18 10:15 Glucose 96 mg/dL (75-100) 11/22/18 10:15 Calcium 9.0 mg/dL (8.4-10.2) 11/22/18 10:15 0.80 mg/dL (0.1-1.2) 11/22/18 10:15 AST 19 units/L (5-40) 11/22/18 10:15 ALT 13 units/L (7-56) 11/22/18 10:15 67 units/L (35-129) 11/22/18 10:15 1046 units/L (55-170) H 11/22/18 10:15 CK-MB (CK-2) 13.6 ng/mL (0.0-4.0) H 11/22/18 10:15 CK-MB (CK-2) Rel Index 1.3 (0-4) 11/22/18 10:15 0.750 ng/mL (0.00-0.029) H* 11/22/18 10:15 NT-Pro-B Natriuret Pep > 25525 pg/mL (0-450) H 11/21/18 10:13 6.9 g/dL (6.3-8.2) 11/22/18 10:15 3.4 g/dL (3.9-5) L 11/22/18 10:15 1.0 % 11/22/18 10:15 Triglycerides 42 mg/dL (2-149) 11/21/18 10:13 Cholesterol 122 mg/dL (50-199) 11/21/18 10:13 70 mg/dL (50-130) 11/21/18 10:13 52 mg/dL (40-59) 11/21/18 10:13 2.34 % 11/21/18 10:13 Fluid Type Ascitic 11/22/18 12:00 Fluid Color Yellow 11/22/18 12:00 Fluid Appearance Hazy 11/22/18 12:00 Fluid WBC 40 /mm3 11/22/18 12:00 Fluid RBC 2000 /mm3 11/22/18 12:00 Active Medications - Current Medications Current Medications: Generic Name Dose Route Start Last Admin Trade Name Freq PRN Reason Stop Dose Admin Aspirin 325 mg 11/22/18 18:00 Aspirin PO PRN [facility] Clonidine HCl 0.2 mg 11/21/18 22:00 11/22/18 09:12 Catapres PO 0.2 mg BID [facility] Administration Furosemide 20 mg 11/21/18 18:00 11/22/18 05:32 Lasix IV 20 mg 0600,1800 [facility] Administration Heparin Sodium (Porcine) 5,000 unit 11/21/18 22:00 11/22/18 10:00 Heparin SUB-Q Not Given Q12HR [facility] Hydralazine HCl 100 mg 11/21/18 14:00 11/22/18 13:07 Apresoline PO Not Given TID [facility] Hydralazine HCl 10 mg 11/21/18 13:02 Apresoline IV Q6HR PRN Hypertension Nicardipine HCl 50 mg/ Sodium 250 mls @ 25 mls/hr 11/21/18 12:00 11/22/18 03:30 Chloride IV 0 mg/hr TITR [facility]OST[facility] 0 mls/hr Titration Protocol 5 MG/HR Calcium Chloride 1,000 mg/ 110 mls @ 660 mls/hr 11/22/18 13:52 Sodium Chloride IV 11/22/18 14:01 ONCE ONE Morphine Sulfate 2 mg 11/21/18 21:25 11/22/18 10:12 Morphine IV 2 mg Q4H PRN Administration Pain, Moderate (4-6) Sevelamer Carbonate 1,600 mg 11/21/18 17:00 11/22/18 12:51 Renvela PO 1,600 mg TIDWM FOSTER Administration
--- NOTE | 2018-11-22 14:03 | Procedure Note ---
Date of procedure: 11/22/18 Pre-op diagnosis: ascites Post-op diagnosis: same Procedure: US paracentesis Findings: moderate ascites Anesthesia: local Surgeon: BARTOLOME IBRAHIM Estimated blood loss: none Pathology: list (120cc) Specimen disposition: to lab Condition: stable Disposition: floor
[2018-11-22 14:40] LABS: Total Cells Counted 100 /mm3
[2018-11-22] MEDS ORDERED: CALCIUM CHLORIDE 1,000 MG in NACL 0.9% 100 ML IV ONE (15:00)
[2018-11-22] MEDS ORDERED: HumuLIN R IV ONE (15:09)
[2018-11-22] MEDS ORDERED: D50W (25GM) Syringe IV ONE (15:10)
[2018-11-22] MEDS ORDERED: DILAUDID IV ONE (15:54)
[2018-11-22] MEDS: CATAPRES PO ONE ×2 (15:59→16:04)
--- NOTE | 2018-11-22 17:00 | Event Note ---
Date: 11/22/18 Initially patient's blood pressures fairly controlled, planned to transfer the patient out of ICU However patient's blood pressures suddenly elevated ,systolic > 200 Restart Cardene drip per protocol,hold the transfer, and monitored in ICU Nephrology, cardiology and pulmonary following the patient,
[2018-11-22] MEDS ORDERED: ASPIRIN PO SCH (18:00)
[2018-11-22] MEDS ORDERED: APRESOLINE IV SCH (19:00)
[2018-11-22 19:38] VITALS: BP 147/69
[2018-11-22] MEDS ORDERED: CATAPRES PO SCH (20:00)
--- NOTE | 2018-11-23 18:07 | Discharge Summary ---
Providers - Providers Date of Admission: 11/21/18 11:31 Date of discharge: 11/22/18 Attending physician: DAHLIA MORIN 11/21/18 12:10 Consult to Physician [CONS] Routine Comment: DR SELIN KENDALL W/ DR ZHANG @1226 Consulting Provider: REBECA ZHANG Physician Instructions: Reason For Exam: hd, esrd 11/21/18 12:14 Consult to Cardiology [CONS] Routine Consulting Provider: YELENA JO Reason For Exam: CHF/fluid overload 11/22/18 08:00 Consult to Interventional Radiology [CONS] Routine Consulting Provider: JEREMIAH CERDA Reason For Exam: paracentesis,therapeutic 11/22/18 13:46 Consult to Physician [CONS] Routine Comment: Consulting Provider: PRAVEENA CORTES Physician Instructions: Reason For Exam: Cr Care consult Primary care physician: [facility], [place] Hospitalization Reason for admission: worsening shortness of breath/acute on chronic CHF Condition: Fair Pertinent studies: Ultrasound-guided paracentesis Chest x-ray Procedures: Ultrasound-guided paracentesis and removal of 2.7 L of peritoneal fluid Negative for SBP Hospital course: 48 YO Male with ESRD on HD (T,R,Sa), HTN, PCKD, Cirrhosis, ESLD complicated by Ascites with serial paracentesis, Systolic CHF(EF 35%), GERD, Nicotine Dependence presents to ED for evaluation. Pt states that he experienced shortness of breath, Feeling bloated and tired for the past 1 week with worsening symptoms over the past 2 days. Pt acknowledges Orthopnea/PND, decreased exercise tolerance, dypsnea on exertion, dypsnea at rest. Pt states that he felt acutely worse this morning. Pt was noted to have hypertensive emergency, admitted to ICU on Cardene E[place] plata to reasonably controlled Stabilized and transferred to medical floor, evaluated by nephrology, received hemodialysis per schedule Patient was also seen by cardiology medications optimized Smoking cessation counseling done Patient Continue to have shortness of breath however he refused to stay in the hospital and left AMA Same consequences of leaving AGAINST MEDICAL ADVICE were discussed with the patient Patient insisted on leaving AMA signed and left Discharge diagnosis; -- Hypertensive emergency, s/p Nicardipene drip initiated in ED but discontinued prior to dialysis, Continue current home medications , when necessary hydralazine -- Acute exacerbation of CHF (congestive heart failure) Continue current antifailurel medication, Echo reviewed EF 35-40%, Al input-output, low-sodium diet, water restriction --Fluid overload/ascites ultrasound-guided abdominal paracentesis Pleural fluid analysis ,HD per Schedule --ESRD (end stage renal disease) Nephrology following, received hemodialysis -- Hyperkalemia calcium carbonate, kayexelated, urgent dialysis, NO EKG changes. -- Noncompliance with medication regimen Pt counseled. continue current therapy. -- PKD (polycystic kidney disease) supportive care, Nephrology consulted, dialysis as per renal team, strict I/O, daily weight, monitor uop q shift, avoid npehrotoxic agents. --Tobacco use: Nicotine dependence supportive care, smoking cessation counseling -- DVT prophylaxis SCD to BLE while in bed, prophylactic heparin Disposition: DC- LEFT AGAINST MED ADVICE Time spent for discharge: 32 min Core Measure Documentation - Palliative Care Palliative Care/ Comfort Measures: Not Applicable - Core Measures Any of the following diagnoses?: heart failure - Heart Failure Discharge Requirements DIANE/ARB for LVSD if EF <40%: No (patient left AMA) Reason for no DIANE/ARB: Patient refusal Beta lexy at discharge: No Reason for no beta lexy on DC: Patient refusal (left AMA) Exam - Physical Exam Narrative exam: Patient left AMA - Constitutional Vitals: Temp Pulse Resp BP Pulse Ox 97.8 F 76 26 H 147/69 91 11/22/18 16:00 11/22/18 19:15 11/22/18 17:30 11/22/18 19:15 11/22/18 18:45 Plan Additional Instructions: PATIENT LEFT AMA Follow up with: ZHANE VAZQUEZ MD [Primary Care Provider] - 7 Days
[2018-11-26 08:23] LABS: LDH,Body Fluid 203
== END 2018-11-22 19:45 | disposition left against medical advice (07) | DRG 291 ==
LOC: ED 07:51 → IMCU 11:31 → CC1 14:09
PROVIDERS: ADMIT Internal Medicine; ATTEND Internal Medicine
PROC: 5A1D70Z Performance of Urinary Filtration, Intermittent, Less than 6 Hours Per Day (ICD-10-PCS; 2018-11-21)
PROC: 0W9G3ZZ Drainage of Peritoneal Cavity, Percutaneous Approach (ICD-10-PCS; principal; 2018-11-22)
DX: I13.2 Hypertensive heart and chronic kidney disease with heart failure and with stage 5 chronic kidney disease, or end stage renal disease (principal); J96.21 Acute and chronic respiratory failure with hypoxia; N18.6 End stage renal disease; I50.43 Acute on chronic combined systolic (congestive) and diastolic (congestive) heart failure; I16.1 Hypertensive emergency; R18.8 Other ascites; Q61.3 Polycystic kidney, unspecified; I42.9 Cardiomyopathy, unspecified; K72.90 Hepatic failure, unspecified without coma; K74.60 Unspecified cirrhosis of liver; E87.5 Hyperkalemia; I16.0 Hypertensive urgency; D64.9 Anemia, unspecified; K21.9 Gastro-esophageal reflux disease without esophagitis; F17.210 Nicotine dependence, cigarettes, uncomplicated; Z91.14 Patient's other noncompliance with medication regimen; Z99.2 Dependence on renal dialysis
CPT/HCPCS: 36415; 49083; 71045; 80053; 80061; 82550; 82553; 82947; 83605; 83880; 84160; 84484; 85007; 85025; 87116; 88112; 89051; 93005; 93010; 96374; 99291; G0378; J1170; J1644; J1815; J1940; J2060; J2270; J7050

== ENCOUNTER 2018-11-30 22:57 | Inpatient (IN) | payer MEDICARE ==
[2018-12-01] MEDS ORDERED: ZOFRAN IV ONE (00:18)
[2018-12-01] MEDS ORDERED: MORPHINE IV ONE (00:18)
[2018-12-01 01:20] LABS: Basophils # (Auto) 0.1 K/mm3 (0.0-0.1); Eosinophils # (Auto) 0.1 K/mm3 (0.0-0.4); Eosinophils % (Auto) 2.2 % (0.0-4.3); Hematocrit 32.2 % (35.5-45.6); Hemoglobin 10.2 gm/dl (11.8-15.2); Lymphocytes # (Auto) 0.8 K/mm3 (1.2-5.4); Lymphocytes % (Auto) 14.5 % (13.4-35.0); Mean Corpuscular HGB Conc 32 % (32-34); Mean Corpuscular Volume 95 fl (84-94); Monocytes # (Auto) 0.9 K/mm3 (0.0-0.8); Monocytes % (Auto) 15.1 % (0.0-7.3); Platelet Count 187 K/mm3 (140-440); Red Cell Distribution Width 18.8 % (13.2-15.2)
[2018-12-01 01:48] LABS: INR 1.19 (0.87-1.13)
[2018-12-01 01:50] LABS: Albumin 3.7 g/dL (3.9-5); Calcium 9.8 mg/dL (8.4-10.2)
--- NOTE | 2018-12-01 02:21 | Emergency Department Report ---
ED Shortness of Breath HPI - General Chief Complaint: Abdominal Pain Stated Complaint: ABD PAIN Time Seen by Provider: 12/01/18 00:18 Source: patient, EMS Mode of arrival: Stretcher Limitations: No Limitations - History of Present Illness Initial Comments: Patient is a 48-year-old male with a past medical history of end-stage renal disease who last had dialysis yesterday, CHF anasarca and hypertension who is here secondary to feeling abdominal pain and abdominal distention. Patient states that on his last admission on 11/21/2018 the patient had to have an ultrasound-guided. Centesis. Large amount of fluid was drained. Patient states his fluids reaccumulated feels a lot of pain and tightness in his abdomen. Patient states his abdomen is so distended that he feels very short of breath. Patient denies any cough cold congestion or fevers or chills. Patient states that they're unsure why he is acutely so much fluid in his abdomen. - Related Data Home Medications Medication Instructions Recorded Confirmed Last Taken Sevelamer Carbonate [Renvela] 1,600 mg PO TIDWM 11/21/18 11/21/18 Unknown Previous Rx's Medication Instructions Recorded Last Taken Type Furosemide [Lasix TAB] 20 mg PO QDAY #30 tablet 10/29/18 11/13/18 Rx 20mg cloNIDine [Catapres] 0.2 mg PO BID #60 tablet 10/29/18 11/13/18 Rx 0.2mg hydrALAZINE [Apresoline TAB] 100 mg PO TID #90 tab 10/29/18 11/13/18 Rx 100mg Allergies Allergy/AdvReac Type Severity Reaction Status Date / Time labetalol Allergy Vomiting Verified 10/16/18 15:22 polystyrene sulfonate Allergy Unknown Verified 10/16/18 13:24 [From Kayexalate] tramadol [From Ultram] AdvReac Dizziness Verified 03/05/18 15:30 ED Review of Systems ROS: Stated complaint: ABD PAIN Other details as noted in HPI Comment: All other systems reviewed and negative ED Past Medical Hx - Past Medical History Hx Hypertension: Yes Hx CVA: No Hx Heart Attack/AMI: No Hx Congestive Heart Failure: Yes (diastolic - CHRONIC , CARDIOMYOPATHY) Hx Diabetes: No Hx Deep Vein Thrombosis: No Hx Pulmonary Embolism: No Hx GERD: No Hx Liver Disease: No Hx Renal Disease: Yes (HD TTS) Hx Sickle Cell Disease: No Hx Arthritis: No Hx Headaches / Migraines: No Hx Seizures: No Hx Kidney Stones: No Hx Psychiatric Treatment: No Hx Asthma: No Hx COPD: No Hx Tuberculosis: No Hx Dementia: No Hx HIV: No Additional medical history: Abdominal Hernias, right groin hernia, - Surgical History Hx Coronary Stent: No Hx Open Heart Surgery: No Hx Pacemaker: No Hx Internal Defibrillator: No Hx Cholecystectomy: No Hx Appendectomy: No Hx Breast Surgery: No Additional Surgical History: dialysis access left arm, groin hernia repair, - Social History Smoking Status: Never Smoker Substance Use Type: None - Medications Home Medications: Home Medications Medication Instructions Recorded Confirmed Last Taken Type Furosemide [Lasix TAB] 20 mg PO QDAY #30 tablet 10/29/18 11/21/18 11/13/18 Rx 20mg cloNIDine [Catapres] 0.2 mg PO BID #60 tablet 10/29/18 11/21/18 11/13/18 Rx 0.2mg hydrALAZINE [Apresoline TAB] 100 mg PO TID #90 tab 10/29/18 11/21/18 11/13/18 Rx 100mg Sevelamer Carbonate [Renvela] 1,600 mg PO TIDWM 11/21/18 11/21/18 Unknown History ED Physical Exam - General Limitations: No Limitations General appearance: alert, in no apparent distress - Head Head exam: Present: atraumatic, normocephalic - Eye Eye exam: Present: normal appearance - ENT ENT exam: Present: mucous membranes moist - Neck Neck exam: Present: normal inspection - Respiratory Respiratory exam: Present: normal lung sounds bilaterally, respiratory distress. Absent: wheezes, rales, rhonchi - Cardiovascular Cardiovascular Exam: Present: regular rate, normal rhythm, normal heart sounds. Absent: systolic murmur, diastolic murmur, rubs, gallop - GI/Abdominal GI/Abdominal exam: Present: distended, tenderness, rigid, normal bowel sounds. Absent: soft, guarding, rebound - Rectal Rectal exam: Present: deferred - Extremities Exam Extremities exam: Present: normal inspection - Back Exam Back exam: Present: normal inspection - Neurological Exam Neurological exam: Present: alert, oriented X3 - Psychiatric Psychiatric exam: Present: normal affect, normal mood - Skin Skin exam: Present: warm, dry, intact, normal color. Absent: rash ED Course Vital Signs 11/30/18 11/30/18 11/30/18 23:16 23:23 23:30 Temperature 98.1 F Pulse Rate 63 64 59 L Respiratory 12 18 14 Rate Blood Pressure 170/90 169/89 O2 Sat by Pulse 100 100 Oximetry 11/30/18 12/01/18 12/01/18 23:45 00:01 00:30 Temperature Pulse Rate 62 62 64 Respiratory 24 15 19 Rate Blood Pressure 162/85 164/78 173/102 O2 Sat by Pulse 98 100 100 Oximetry 12/01/18 00:46 Temperature Pulse Rate Respiratory 18 Rate Blood Pressure O2 Sat by Pulse Oximetry ED Medical Decision Making - Lab Data Result diagrams: 12/01/18 01:07 12/01/18 01:07 Lab Results 12/01/18 12/01/18 12/01/18 Range/Units 01:07 01:07 01:07 WBC 5.9 (4.5-11.0) K/mm3 RBC 3.40 L (3.65-5.03) M/mm3 Hgb 10.2 L (11.8-15.2) gm/dl Hct 32.2 L (35.5-45.6) % MCV 95 H (84-94) fl MCH 30 (28-32) pg MCHC 32 (32-34) % RDW 18.8 H (13.2-15.2) % Plt Count 187 (140-440) K/mm3 Lymph % (Auto) 14.5 (13.4-35.0) % Yell % (Auto) 15.1 H (0.0-7.3) % Eos % (Auto) 2.2 (0.0-4.3) % Baso % (Auto) 1.0 (0.0-1.8) % Lymph # 0.8 L (1.2-5.4) K/mm3 Yell # 0.9 H (0.0-0.8) K/mm3 Eos # 0.1 (0.0-0.4) K/mm3 Baso # 0.1 (0.0-0.1) K/mm3 Seg Neutrophils % 67.2 (40.0-70.0) % Seg Neutrophils # 3.9 (1.8-7.7) K/mm3 PT 14.8 (12.2-14.9) Sec. INR 1.19 H (0.87-1.13) APTT 31.0 (24.2-36.6) Sec. Sodium 141 (137-145) mmol/L Potassium 5.6 H (3.6-5.0) mmol/L Chloride 100.1 (98-107) mmol/L Carbon Dioxide 25 (22-30) mmol/L Anion Gap 22 mmol/L BUN 63 H (9-20) mg/dL Creatinine 10.9 H (0.8-1.5) mg/dL Estimated GFR 6 ml/min BUN/Creatinine Ratio 6 % Glucose 105 H (75-100) mg/dL Calcium 9.8 (8.4-10.2) mg/dL Total Bilirubin 0.50 (0.1-1.2) mg/dL AST 18 (5-40) units/L ALT 16 (7-56) units/L Alkaline Phosphatase 69 (35-129) units/L Total Protein 7.4 (6.3-8.2) g/dL Albumin 3.7 L (3.9-5) g/dL Albumin/Globulin Ratio 1.0 % - Medical Decision Making Patient was given morphine for pain control. Patient's did get some relief of his pain was able to rest. We did treat the patient also oxygen although he never did become hypoxic. Oxygen was just for comfort. Patient be admitted to the hospitalist service for probable paracentesis Critical care attestation.: If time is entered above; I have spent that time in minutes in the direct care of this critically ill patient, excluding procedure time. ED Disposition Clinical Impression: Abdominal distension, Anasarca, Abdominal pain, Shortness of breath, Acute respiratory distress, ESRD (end stage renal disease), Volume overload Disposition: OP ADMIT IP TO THIS HOSP Is pt being admited?: Yes Does the pt Need Aspirin: No Condition: Stable Referrals: ZHANE VAZQUEZ MD [Primary Care Provider] - 3-5 Days Time of Disposition: 02:21
[2018-12-01] MEDS ORDERED: ZOFRAN IV PRN (03:47)
[2018-12-01] MEDS ORDERED: SODIUM CHLORIDE FLUSH SYRINGE 10 ML IV PRN (03:47)
--- NOTE | 2018-12-01 03:51 | History and Physical Report ---
History of Present Illness Date of examination: 12/01/18 History of present illness: 48-year-old man with a history of polycystic kidney disease, hypertension, recurrent ascites ,end-stage renal disease and dialysis comes emergency room abdominal distention that started 3 days ago. Status post paracentesis recent paracentesis and is scheduled for paracentesis on Monday. Stated that because his belly is gotten so much bigger, started having shortness of breath. Patient stated that he saw fiberglass luggage molder today, confirming that he does not have heart failure, and GI doctor told him he did not have cirrhosis Review Of Systems: Constitutional: no Fever, no weight loss Ears, eyes, nose, mouth and throat: no nasal congestion, no nasal discharge, no sinus pressure, blurry vision, diplopia Neck: No neck pain or rigidity. Cardiovascular: chest pain, orthopnea, palpitations Respiratory: No cough Gastrointestinal: abdominal pain, hematochezia Genitourinary : no dysuria, frequency Musculoskeletal: no muscle ache Integumentary: no rash, no pruritis Neurological: no parathesias, focal weakness Endocrine: no cold or heat intolerance, no polyuria or polydipsia Hematologic/Lymphatic: no easy bruising, no easy bleeding, no gland swelling Allergic/Immunologic: no urticaria, no angioedema. PAST MEDICAL HISTORY:polycystic kidney disease, hypertension, end-stage renal disease, recurrent ascites PAST SURGICAL HISTORY: AV fistula, hernia repair FAMILY HISTORY: hypertension SOCIAL HISTORY: Denies alcohol, tobacco, drug Medications and Allergies Allergies Allergy/AdvReac Type Severity Reaction Status Date / Time labetalol Allergy Vomiting Verified 10/16/18 15:22 polystyrene sulfonate Allergy Unknown Verified 10/16/18 13:24 [From Kayexalate] tramadol [From Ultram] AdvReac Dizziness Verified 03/05/18 15:30 Home Medications Medication Instructions Recorded Confirmed Last Taken Type Furosemide [Lasix TAB] 20 mg PO QDAY #30 tablet 10/29/18 12/01/18 11/13/18 Rx 20mg cloNIDine [Catapres] 0.2 mg PO BID #60 tablet 10/29/18 12/01/18 11/13/18 Rx 0.2mg Active Meds: Active Medications Enoxaparin Sodium (Lovenox) 30 mg SUB-Q QDAY FOSTER Exam - Physical Exam Narrative exam: General Apperance: The patient lying in bed, breathing comfortable HEENT: Normocephalic, atraumatic. Pupils equally round and reactive to light, EOMI, no sclericterus or JVD or thyromegaly or nodule. , no carotid bruit, mucous membranes moist, no exudate or erythema Heart: S1-S2, regular is rhythm Lungs: Clear to auscultation bilaterally, breathing comfortable Abdomen: Positive bowel sounds, soft, distended, nontender, difficult to assess for organomegaly Extremities: + edema up to thighs no cyanosis clubbing Skin: no rash, nodule, warm and dry Neuro: cranial nerves 2-12 intact, speech is fluent, motor/sensory intact - Constitutional Vitals: Temp Pulse Resp BP Pulse Ox 98.1 F 58 L 10 L 175/88 95 11/30/18 23:23 12/01/18 01:15 12/01/18 01:15 12/01/18 01:15 12/01/18 01:15 Results - Labs CBC & Chem 7: 12/01/18 01:07 12/01/18 01:07 Labs: Abnormal lab results 12/01/18 12/01/18 12/01/18 Range/Units 01:07 01:07 01:07 RBC 3.40 L (3.65-5.03) M/mm3 Hgb 10.2 L (11.8-15.2) gm/dl Hct 32.2 L (35.5-45.6) % MCV 95 H (84-94) fl RDW 18.8 H (13.2-15.2) % Cavalier % (Auto) 15.1 H (0.0-7.3) % Lymph # 0.8 L (1.2-5.4) K/mm3 Cavalier # 0.9 H (0.0-0.8) K/mm3 INR 1.19 H (0.87-1.13) Potassium 5.6 H (3.6-5.0) mmol/L BUN 63 H (9-20) mg/dL Creatinine 10.9 H (0.8-1.5) mg/dL Glucose 105 H (75-100) mg/dL Albumin 3.7 L (3.9-5) g/dL Assessment and Plan Assessment Abdominal distention secondary to recurrent ascites Hyperkalemia Hypertension ESRD Polycystic kidney disease Plan Admit to medicine Consult interventional radiology for paracentesis Give cocktail for hyperkalemia, follow up blood sugar Consult renal for dialysis DVT prophylaxis with SCD
[2018-12-01] MEDS ORDERED: D50W (25GM) Syringe IV ONE (04:08)
[2018-12-01] MEDS ORDERED: CALCIUM CHLORIDE 1,000 MG in NACL 0.9% 100 ML IV ONE (04:08)
[2018-12-01] MEDS ORDERED: HumuLIN R SUB-Q ONE (04:10)
[2018-12-01] MEDS ORDERED: D50W (25GM) Syringe IV PRN (04:22)
[2018-12-01] MEDS: CATAPRES PO SCH ×3 (09:30→22:01)
[2018-12-01] MEDS: LOVENOX SUB-Q SCH ×2 (09:32→09:37)
[2018-12-01] MEDS: LASIX PO SCH ×2 (09:32→09:38)
[2018-12-01] MEDS: SODIUM CHLORIDE FLUSH SYRINGE 10 ML IV SCH ×2 (09:36→22:04)
[2018-12-01] MEDS ORDERED: NACL 0.9% 100 ML IV PRN (10:01)
[2018-12-01 10:43] LABS: Calcium 9.9 mg/dL (8.4-10.2)
--- NOTE | 2018-12-01 10:44 | Event Note ---
Date: 12/01/18 Patient with abdominal pain and distension from gross ascitis. I have seen and examined him. Continue current management.
[2018-12-01] MEDS: PERCOCET 5/325 PO PRN (11:09)
[2018-12-01] MEDS ORDERED: NITROSTAT SL PRN (11:51)
--- NOTE | 2018-12-01 12:04 | Consultation ---
History of Present Illness - Reason for Consult Consult date: 12/01/18 - History of Present Illness Pleasant 48 y/o AAM with PMHx significant for ESRD in the setting of HTN and APCKD, well known to our group from prior hospitalizations, presented to the ED secondary to worsening abdominal distention and need for paracentesis. He had originally planned to have the procedure done as an outpatient this upcoming Monday, but with the progression of his symptoms he came into the ED for further evaluation. He dialyzes on a TTS schedule at [place] dialysis unit. Patient's last paracentesis was over one week ago here, where he had 2.8L removed. Past History Past Medical History: dialysis, ESRD, heart failure, hypertension, hyperlipidemia Past Surgical History: hernia repair, Other (AVF placement ) Social history: , lives with family, smoking Family history: diabetes, hypertension Medications and Allergies Allergies Allergy/AdvReac Type Severity Reaction Status Date / Time labetalol Allergy Vomiting Verified 10/16/18 15:22 polystyrene sulfonate Allergy Unknown Verified 10/16/18 13:24 [From Kayexalate] tramadol [From Ultram] AdvReac Dizziness Verified 03/05/18 15:30 Home Medications Medication Instructions Recorded Confirmed Last Taken Type Furosemide [Lasix TAB] 20 mg PO QDAY #30 tablet 10/29/18 12/01/18 11/13/18 Rx 20mg cloNIDine [Catapres] 0.2 mg PO BID #60 tablet 10/29/18 12/01/18 11/13/18 Rx 0.2mg Active Meds: Active Medications Clonidine HCl (Catapres) 0.2 mg PO BID [facility] Last Admin: 12/01/18 09:38 Dose: Not Given Documented by: Dextrose (D50w (25gm) Syringe) 50 ml IV PRN PRN PRN Reason: Hypoglycemia Enoxaparin Sodium (Lovenox) 30 mg SUB-Q QDAY [facility] Last Admin: 12/01/18 09:37 Dose: Not Given Documented by: Furosemide (Lasix) 20 mg PO QDAY [facility] Last Admin: 12/01/18 09:38 Dose: Not Given Documented by: Sodium Chloride (Nacl 0.9%) 100 mls @ 999 mls/hr IV JULIA PRN PRN Reason: Hypotension Nitroglycerin (Nitrostat) 0.4 mg SL .Q5MIN PRN PRN Reason: Chest Pain Ondansetron HCl (Zofran) 4 mg IV Q8H PRN PRN Reason: Nausea And Vomiting Oxycodone/Acetaminophen (Percocet 5/325) 1 tab PO Q6H PRN PRN Reason: Pain, Moderate (4-6) Last Admin: 12/01/18 11:09 Dose: 1 tab Documented by: Sodium Chloride (Sodium Chloride Flush Syringe 10 Ml) 10 ml IV BID [facility] Last Admin: 12/01/18 09:36 Dose: Not Given Documented by: Sodium Chloride (Sodium Chloride Flush Syringe 10 Ml) 10 ml IV PRN PRN PRN Reason: LINE FLUSH Review of Systems All systems: negative Gastrointestinal: abdominal pain Exam - Vital Signs Vital signs: Vital Signs Pulse Resp 63 12 11/30/18 23:16 11/30/18 23:16 - General Appearance General appearance: well-developed, well-nourished, appears stated age, obese EENT: ATNC, PERRL Neck: Present: neck supple, trachea midline Respiratory: Clear to Ascultation, Normal Exam Heart: regular, S1S2 Gastrointestinal: Present: distended Integumentary: no rash, warm and dry Neurologic: no focal deficit, no asterixis, alert and oriented x3 Musculoskeletal: Present: other (+edema ) Psychiatric: mood/affect appropriate, cooperative Results - Lab Results 12/01/18 01:07 12/01/18 09:52 Most recent lab results Calcium 9.9 mg/dL (8.4-10.2) 12/01/18 09:52 Assessment and Plan - Patient Problems (1) ESRD (end stage renal disease) Current Visit: Yes Status: Chronic Plan to address problem: Plan for HD today to maintain on TTS inpatient HD schedule. (2) Hyperkalemia Current Visit: No Status: Acute Plan to address problem: Dialyze utilizing 2K bath. Encouraged low K diet. (3) Abdominal distension Current Visit: Yes Status: Chronic Plan to address problem: Patient likely will need evaluation for paracentesis while inpatient. (4) Ascites Current Visit: No Status: Chronic Qualifiers: Ascites type: other type Qualified Code(s): R18.8 - Other ascites Plan to address problem: Recurrent issues with patient as he has required multiple paracentesis in the past. Will continue to monitor. Likely evaluation for paracentesis procedure while inpatient. Will follow up with primary team. (5) Fluid overload Current Visit: Yes Status: Chronic Plan to address problem: Goal UF of 3L as tolerated. Counseled patient on the importance of fluid and salt restrictions. (6) Hypertensive chronic kidney disease with stage 5 chronic kidney disease or end stage renal disease Current Visit: Yes Status: Chronic Plan to address problem: Continue on his current regimen and we will monitor closely.
[2018-12-01 13:30] LABS: Chol/HDL Ratio 2.47 %
[2018-12-01] MEDS: NITRO-BID 2% TP SCH ×3 (14:01→22:06)
--- NOTE | 2018-12-01 14:54 | Consultation ---
History of Present Illness - Reason for Consult Consult date: 12/01/18 Recurrent Ascites Requesting physician: YESENIA MEZA - History of Present Illness The patient is a 48-year-old male with a history of end-stage renal disease on hemodialysis through a left arm AV fistula. He also has congestive heart failure and history of recurrent ascites requiring multiple paracentesis. He presents with a four-day history of shortness of breath resulting in difficulty Ambulating and finishing his sentences. He also complains of increased abdominal distention as well as swelling in bilateral lower extremities that he states improves with elevation however returns and soreness he stands. He presented to the emergency Department secondary to the shortness of breath and increase in his abdominal distention. We were consulted for paracentesis. Past History Past Medical History: dialysis, ESRD, heart failure, hypertension, h yperlipidemia Past Surgical History: hernia repair, Other (AVF placement ) Social history: , lives with family, smoking Family history: diabetes, hypertension Medications and Allergies Allergies Allergy/AdvReac Type Severity Reaction Status Date / Time labetalol Allergy Vomiting Verified 10/16/18 15:22 polystyrene sulfonate Allergy Unknown Verified 10/16/18 13:24 [From Kayexalate] tramadol [From Ultram] AdvReac Dizziness Verified 03/05/18 15:30 Home Medications Medication Instructions Recorded Confirmed Last Taken Type Furosemide [Lasix TAB] 20 mg PO QDAY #30 tablet 10/29/18 12/01/18 11/13/18 Rx 20mg cloNIDine [Catapres] 0.2 mg PO BID #60 tablet 10/29/18 12/01/18 11/13/18 Rx 0.2mg Active Meds: Active Medications Clonidine HCl (Catapres) 0.2 mg PO BID [facility] Last Admin: 12/01/18 09:38 Dose: Not Given Documented by: Dextrose (D50w (25gm) Syringe) 50 ml IV PRN PRN PRN Reason: Hypoglycemia Enoxaparin Sodium (Lovenox) 30 mg SUB-Q QDAY [facility] Last Admin: 12/01/18 09:37 Dose: Not Given Documented by: Furosemide (Lasix) 20 mg PO QDAY [facility] Last Admin: 12/01/18 09:38 Dose: Not Given Documented by: Sodium Chloride (Nacl 0.9%) 100 mls @ 999 mls/hr IV JULIA PRN PRN Reason: Hypotension Nitroglycerin (Nitrostat) 0.4 mg SL .Q5MIN PRN PRN Reason: Chest Pain Nitroglycerin (Nitro-Bid 2%) 1 inch TP Q6H [facility]; Protocol Ondansetron HCl (Zofran) 4 mg IV Q8H PRN PRN Reason: Nausea And Vomiting Oxycodone/Acetaminophen (Percocet 5/325) 1 tab PO Q6H PRN PRN Reason: Pain, Moderate (4-6) Last Admin: 12/01/18 11:09 Dose: 1 tab Documented by: Sodium Chloride (Sodium Chloride Flush Syringe 10 Ml) 10 ml IV BID [facility] Last Admin: 12/01/18 09:36 Dose: Not Given Documented by: Sodium Chloride (Sodium Chloride Flush Syringe 10 Ml) 10 ml IV PRN PRN PRN Reason: LINE FLUSH Review of Systems All systems: negative Exam - Constitutional Vitals: Temp Pulse Resp BP Pulse Ox 98.0 F 62 18 171/93 98 12/01/18 12:34 12/01/18 13:39 12/01/18 13:39 12/01/18 12:34 12/01/18 12:34 General appearance: Present: no acute distress - Respiratory Respiratory effort: normal (while laying in bed) - Cardiovascular Rhythm: regular - Extremities Extremities: normal temperature, abnormal (dermatosclerosis bilaterally with evidence of lymphedema bilaterally and positive stemmer sign) Extremity abnormal: edema (pitting edema in his calves and thighs bilaterally), other (left arm AV fistula with palpable thrill and no evidence of pulsatility or venous stenosis.) Results - Labs CBC & Chem 7: 12/01/18 01:07 12/01/18 09:52 Labs: Abnormal lab results 12/01/18 12/01/18 12/01/18 Range/Units 01:07 01:07 01:07 RBC 3.40 L (3.65-5.03) M/mm3 Hgb 10.2 L (11.8-15.2) gm/dl Hct 32.2 L (35.5-45.6) % MCV 95 H (84-94) fl RDW 18.8 H (13.2-15.2) % [place] % (Auto) 15.1 H (0.0-7.3) % Lymph # 0.8 L (1.2-5.4) K/mm3 [place] # 0.9 H (0.0-0.8) K/mm3 INR 1.19 H (0.87-1.13) Potassium 5.6 H (3.6-5.0) mmol/L BUN 63 H (9-20) mg/dL Creatinine 10.9 H (0.8-1.5) mg/dL Glucose 105 H (75-100) mg/dL POC Glucose (70-105) Troponin T (0.00-0.029) ng/mL Albumin 3.7 L (3.9-5) g/dL 12/01/18 12/01/18 12/01/18 Range/Units 06:33 09:52 11:21 RBC (3.65-5.03) M/mm3 Hgb (11.8-15.2) gm/dl Hct (35.5-45.6) % MCV (84-94) fl RDW (13.2-15.2) % [place] % (Auto) (0.0-7.3) % Lymph # (1.2-5.4) K/mm3 [place] # (0.0-0.8) K/mm3 INR (0.87-1.13) Potassium 5.6 H (3.6-5.0) mmol/L BUN 67 H (9-20) mg/dL Creatinine 12.1 H (0.8-1.5) mg/dL Glucose 103 H (75-100) mg/dL POC Glucose 116 H 115 H (70-105) Troponin T (0.00-0.029) ng/mL Albumin (3.9-5) g/dL 12/01/18 Range/Units 12:05 RBC (3.65-5.03) M/mm3 Hgb (11.8-15.2) gm/dl Hct (35.5-45.6) % MCV (84-94) fl RDW (13.2-15.2) % [place] % (Auto) (0.0-7.3) % Lymph # (1.2-5.4) K/mm3 [place] # (0.0-0.8) K/mm3 INR (0.87-1.13) Potassium (3.6-5.0) mmol/L BUN (9-20) mg/dL Creatinine (0.8-1.5) mg/dL Glucose (75-100) mg/dL POC Glucose (70-105) Troponin T 0.609 H* (0.00-0.029) ng/mL Albumin (3.9-5) g/dL Assessment and Plan Patient admitted with recurrent ascites. We'll set up for paracentesis tomorrow.
--- NOTE | 2018-12-01 14:57 | XRay Report ---
CHEST 1 VIEW INDICATION: Shortness of breath. COMPARISON: 11/21/2018 FINDINGS: Support devices: None. Heart: Cardiomegaly and mild right greater than left hilar prominence. Lungs/Pleura: Mild interstitial edema overall improved compared to the previous exam. No effusion. Additional findings: None. IMPRESSION: 1. Stable and hilar prominence. 2. Mild interstitial edema. No effusion. Signer Name: Heath Hill MD Signed: 12/01/2018 2:53 PM Workstation Name: [id number]
--- NOTE | 2018-12-01 16:13 | Cat Scan Report ---
CT abdomen pelvis w con INDICATION / CLINICAL INFORMATION: Abdominal distention and periumbilical pain with nausea, vomiting and diarrhea. TECHNIQUE: The patient received 100 cc Isovue-[address] scans at this location are performed usi ng CT dose reduction for ALARA by means of automated exposure control. COMPARISON: 11/05/2018. FINDINGS: ABDOMEN: There are markedly enlarged polycystic kidneys. There is mild generalized abdominal ascites which has shown minimal change. Generalized body wall edema is again noted. The heart is enlarged. Th ere is mild mosaic lung attenuation. A trace amount of right pleural effusion has decreased in size. The liver, gallbladder, bile ducts, pancreas, spleen, adrenal glands and bowel demonstrate no signifi cant abnormality. No adenopathy is seen. PELVIS: There is moderate pelvic ascites which is similar to the prior study. Generalized body wall e roberta has improved. The distal ureters and urinary bladder are normal. I see no evidence of appendicit is or diverticulitis. There is a minimal periumbilical hernia containing ascites without complication . There are surgical changes involving the anterior abdominal wall. Diffuse osseous sclerosis is elba acteristic of renal osteodystrophy. There are advanced degenerative changes at L4-5. There is bilater al spondylolysis at L4 with grade 1 anterolisthesis of L4 on L5, unchanged. IMPRESSION: Minimal change in the appearance of the chest, abdomen and pelvis since 11/05/2018. Ascite s and anasarca are again noted. No new abnormality is seen. Signer Name: Dameon Marcus MD Signed: 12/01/2018 4:09 PM Workstation Name: [id number]
[2018-12-01] MEDS ORDERED: NACL 0.9 (PRIMING MACHINE ONLY DIALYSIS) MC ONE (17:17)
[2018-12-01] MEDS ORDERED: MORPHINE IM ONE (21:41)
[2018-12-02] MEDS: NITRO-BID 2% TP SCH ×4 (03:54→20:08)
[2018-12-02] MEDS: PERCOCET 5/325 PO PRN ×2 (03:55→15:56)
[2018-12-02] MEDS ORDERED: APRESOLINE IV PRN (05:41)
[2018-12-02 06:12] LABS: Basophils # (Auto) 0.1 K/mm3 (0.0-0.1); Eosinophils # (Auto) 0.2 K/mm3 (0.0-0.4); Eosinophils % (Auto) 3.8 % (0.0-4.3); Hematocrit 30.5 % (35.5-45.6); Hemoglobin 9.8 gm/dl (11.8-15.2); Lymphocytes # (Auto) 0.9 K/mm3 (1.2-5.4); Lymphocytes % (Auto) 15.9 % (13.4-35.0); Mean Corpuscular HGB Conc 32 % (32-34); Mean Corpuscular Volume 94 fl (84-94); Monocytes # (Auto) 0.9 K/mm3 (0.0-0.8); Platelet Count 214 K/mm3 (140-440); Red Blood Count 3.23 M/mm3 (3.65-5.03); Red Cell Distribution Width 18.7 % (13.2-15.2)
[2018-12-02 06:26] LABS: Calcium 9.5 mg/dL (8.4-10.2)
[2018-12-02] MEDS ORDERED: D50W (25GM) Syringe IV ONE ×2 (08:18→09:00)
[2018-12-02] MEDS ORDERED: HumuLIN R IV ONE (08:18)
[2018-12-02] MEDS ORDERED: PROVENTIL IH ONE (08:24)
[2018-12-02] MEDS ORDERED: HumuLIN R IV STA (08:26)
--- NOTE | 2018-12-02 08:51 | Progress Note ---
Assessment and Plan - Patient Problems (1) ESRD (end stage renal disease) Current Visit: Yes Status: Chronic Plan to address problem: We will maintain on TTS inpatient HD schedule. (2) Hyperkalemia Current Visit: No Status: Acute Plan to address problem: Dialyze utilizing 2K bath. Encouraged low K diet. For today's hyperkalemia we will treat medically with 5 units of insulin/D50, as well as albuterol inhalation 10 mg to be given over 30 minutes. Please ensure the patient is on a low potassium diet (3) Abdominal distension Current Visit: Yes Status: Chronic Plan to address problem: Patient likely will need evaluation for paracentesis while inpatient. (4) Ascites Current Visit: No Status: Chronic Qualifiers: Ascites type: other type Qualified Code(s): R18.8 - Other ascites Plan to address problem: Recurrent issues with patient as he has required multiple paracentesis in the past. Patient is nothing by mouth at this time for paracentesis. (5) Fluid overload Current Visit: Yes Status: Chronic Plan to address problem: Goal UF of 3L as tolerated. Counseled patient on the importance of fluid and salt restrictions. (6) Hypertensive chronic kidney disease with stage 5 chronic kidney disease or end stage renal disease Current Visit: Yes Status: Chronic Plan to address problem: We will add carvedilol 12.5 mg by mouth twice a day to his current regimen and we will monitor closely. Subjective Date of service: 12/02/18 Interval history: No acute issues overnight. Morning labs concerning for hyperkalemia. He did get dialyzed and had 3 L of ultrafiltration removed. We will medically treat his hyperkalemia today. He has no abnormalities on telemetry noted. He is asymptomatic this morning. Patient nothing by mouth today for paracentesis. Objective - Vital Signs Vital signs: Vital Signs - 12hr 12/01/18 12/01/18 12/01/18 21:00 22:01 22:06 Temperature Pulse Rate 81 71 71 Respiratory Rate Blood Pressure 187/91 187/91 Blood Pressure [Right] O2 Sat by Pulse Oximetry 12/01/18 12/01/18 12/02/18 23:54 23:56 05:35 Temperature 98.3 F 97.9 F Pulse Rate 67 67 Respiratory 20 20 Rate Blood Pressure 177/108 Blood Pressure 179/105 [Right] O2 Sat by Pulse 93 98 Oximetry 12/02/18 12/02/18 06:55 08:40 Temperature 98.2 F Pulse Rate 70 Respiratory 18 Rate Blood Pressure 192/104 Blood Pressure 181/95 [Right] O2 Sat by Pulse 92 Oximetry - General Appearance General appearance: well-developed, well-nourished, appears stated age EENT: ATNC Neck: no JVD Respiratory: Present: Clear to Ascultation Cardiology: regular, S1S2 Gastrointestinal: distended Integumentary: warm and dry, chronic venous stasis Neurologic: no focal deficit, no asterixis, alert and oriented x3 Musculoskeletal: other (2+ edema ) - Lab 12/02/18 05:42 12/02/18 05:42 Most recent lab results Calcium 9.5 mg/dL (8.4-10.2) 12/02/18 05:42 - Allied health notes Allied health notes reviewed: nursing Medications & Allergies - Medications Allergies/Adverse Reactions: Allergies labetalol Allergy (Verified 10/16/18 15:22) Vomiting pt also reports drastic drop in HR polystyrene sulfonate [From Kayexalate] Allergy (Verified 10/16/18 13:24) Unknown tramadol [From Ultram] Adverse Reaction (Verified 03/05/18 15:30) Dizziness Home Medications: Home Medications Medication Instructions Recorded Confirmed Last Taken Type Furosemide [Lasix TAB] 20 mg PO QDAY #30 tablet 10/29/18 12/01/18 11/13/18 Rx 20mg cloNIDine [Catapres] 0.2 mg PO BID #60 tablet 10/29/18 12/01/18 11/13/18 Rx 0.2mg Active Medications: Generic Name Dose Route Start Last Admin Trade Name Freq PRN Reason Stop Dose Admin Clonidine HCl 0.2 mg 12/01/18 10:00 12/01/18 22:01 Catapres PO 0.2 mg BID [facility] Administration Dextrose 50 ml 12/01/18 04:22 D50w (25gm) Syringe IV PRN PRN Hypoglycemia Dextrose 50 ml 12/02/18 09:00 D50w (25gm) Syringe IV 12/02/18 09:01 ONCE ONE Enoxaparin Sodium 30 mg 12/01/18 10:00 12/01/18 09:37 Lovenox SUB-Q Not Given QDAY [facility] Furosemide 20 mg 12/01/18 10:00 12/01/18 09:38 Lasix PO Not Given QDAY [facility] Hydralazine HCl 10 mg 12/02/18 05:41 Apresoline IV Q4HR PRN Blood Pressure Sodium Chloride 100 mls @ 999 mls/hr 12/01/18 10:01 Nacl 0.9% IV JULIA PRN Hypotension Calcium Gluconate 1,000 mg/ 110 mls @ 660 mls/hr 12/02/18 09:00 Sodium Chloride IV 12/02/18 09:09 ONCE ONE Nitroglycerin 0.4 mg 12/01/18 11:51 Nitrostat SL .Q5MIN PRN Chest Pain Nitroglycerin 1 inch 12/01/18 14:00 12/02/18 08:40 Nitro-Bid 2% TP 1 inch Q6H [facility] Administration Protocol Ondansetron HCl 4 mg 12/01/18 03:47 Zofran IV Q8H PRN Nausea And Vomiting Oxycodone/Acetaminophen 1 tab 12/01/18 10:30 12/02/18 03:55 Percocet 5/325 PO 1 tab Q6H PRN Administration Pain, Moderate (4-6) Sodium Chloride 10 ml 12/01/18 10:00 12/01/18 22:04 Sodium Chloride Flush Syringe 10 Ml IV 10 ml BID [facility] Administration Sodium Chloride 10 ml 12/01/18 03:47 Sodium Chloride Flush Syringe 10 Ml IV PRN PRN LINE FLUSH
[2018-12-02] MEDS ORDERED: CALCIUM GLUCONATE 1,000 MG in NACL 0.9% 100 ML IV ONE (09:00)
[2018-12-02] MEDS ORDERED: COREG PO SCH (10:00)
--- NOTE | 2018-12-02 10:11 | Consultation ---
History of Present Illness Consult date: 12/02/18 Consult reason: congestive heart failure History of present illness: 48 year old obese -Greek male presenting with shortness of breath increasing abdominal girth and pedal edema. Denies any cardiac symptoms but previous cardiac workup had documented a dilated nonischemic cardiomyopathy with a left ventricular ejection fraction of 50-55%. Past History Past Medical History: dialysis, ESRD, heart failure, hypertension, hyperlipidemia Past Surgical History: hernia repair, Other (AVF placement ) Social history: , lives with family, smoking Family history: diabetes, hypertension Medications and Allergies Allergies Allergy/AdvReac Type Severity Reaction Status Date / Time labetalol Allergy Vomiting Verified 10/16/18 15:22 polystyrene sulfonate Allergy Unknown Verified 10/16/18 13:24 [From Kayexalate] tramadol [From Ultram] AdvReac Dizziness Verified 03/05/18 15:30 Home Medications Medication Instructions Recorded Confirmed Last Taken Type Furosemide [Lasix TAB] 20 mg PO QDAY #30 tablet 10/29/18 12/01/18 11/13/18 Rx 20mg cloNIDine [Catapres] 0.2 mg PO BID #60 tablet 10/29/18 12/01/18 11/13/18 Rx 0.2mg Active Meds: Active Medications Clonidine HCl (Catapres) 0.2 mg PO BID [facility] Last Admin: 12/01/18 22:01 Dose: 0.2 mg Documented by: Dextrose (D50w (25gm) Syringe) 50 ml IV PRN PRN PRN Reason: Hypoglycemia Enoxaparin Sodium (Lovenox) 30 mg SUB-Q QDAY [facility] Last Admin: 12/01/18 09:37 Dose: Not Given Documented by: Furosemide (Lasix) 20 mg PO QDAY [facility] Last Admin: 12/01/18 09:38 Dose: Not Given Documented by: Hydralazine HCl (Apresoline) 10 mg IV Q4HR PRN PRN Reason: Blood Pressure Sodium Chloride (Nacl 0.9%) 100 mls @ 999 mls/hr IV JULIA PRN PRN Reason: Hypotension Nitroglycerin (Nitrostat) 0.4 mg SL .Q5MIN PRN PRN Reason: Chest Pain Nitroglycerin (Nitro-Bid 2%) 1 inch TP Q6H [facility]; Protocol Last Admin: 12/02/18 08:40 Dose: 1 inch Documented by: Ondansetron HCl (Zofran) 4 mg IV Q8H PRN PRN Reason: Nausea And Vomiting Oxycodone/Acetaminophen (Percocet 5/325) 1 tab PO Q6H PRN PRN Reason: Pain, Moderate (4-6) Last Admin: 12/02/18 03:55 Dose: 1 tab Documented by: Sodium Chloride (Sodium Chloride Flush Syringe 10 Ml) 10 ml IV BID [facility] Last Admin: 12/01/18 22:04 Dose: 10 ml Documented by: Sodium Chloride (Sodium Chloride Flush Syringe 10 Ml) 10 ml IV PRN PRN PRN Reason: LINE FLUSH Review of Systems Constitutional: weight gain, weakness Ears, nose, mouth and throat: no deferred, no ear pain, no ear discharge Cardiovascular: edema, shortness of breath, no chest pain, no orthopnea, no syncope, no lightheadedness Respiratory: shortness of breath, dyspnea on exertion Gastrointestinal: no nausea, no vomiting, no melena, no hematochezia Genitourinary Male: no dysuria, no hematuria, no flank pain Musculoskeletal: no neck stiffness, no neck pain, no arm numbness/tingling Integumentary: pruritis, blisters Neurological: no head injury, no paralysis, no weakness, no seizures, no syncope, no headaches Endocrine: no cold intolerance, no heat intolerance, no polyphagia, no polydipsia, no polyuria, no nocturia Hematologic/Lymphatic: no easy bruising, no easy bleeding Allergic/Immunologic: no urticaria, no allergic rhinitis, no wheezing Physical Examination Vital Signs Pulse Resp 63 12 11/30/18 23:16 11/30/18 23:16 General appearance: no acute distress, obese HEENT: Positive: PERRL, Normocephaly, Mucus Membranes Moist Neck: Positive: trachea midline, JVD/HJR Cardiac: Positive: Regular Rate, S1/S2, S3, PMI, Dilated, Laterally Displaced Lungs: Positive: clear to auscultation, No Wheeze, Rales, Rhonchi Neuro: Positive: Grossly Intact Abdomen: Positive: Ascites, Distended Extremities: Present: +3 Edema Results 12/02/18 05:42 12/02/18 05:42 Lipids 12/01/18 Range/Units 12:05 Triglycerides 39 (2-149) mg/dL Cholesterol 119 (50-199) mg/dL HDL Cholesterol 48 (40-59) mg/dL Cholesterol/HDL Ratio 2.47 % CBC 12/02/18 Range/Units 05:42 WBC 5.8 (4.5-11.0) K/mm3 RBC 3.23 L (3.65-5.03) M/mm3 Hgb 9.8 L (11.8-15.2) gm/dl Hct 30.5 L (35.5-45.6) % Plt Count 214 (140-440) K/mm3 Lymph # 0.9 L (1.2-5.4) K/mm3 [place] # 0.9 H (0.0-0.8) K/mm3 Eos # 0.2 (0.0-0.4) K/mm3 Baso # 0.1 (0.0-0.1) K/mm3 Comprehensive Metabolic Panel 12/01/18 12/02/18 Range/Units 09:52 05:42 Sodium 139 139 (137-145) mmol/L Potassium 5.6 H 6.2 H* (3.6-5.0) mmol/L Chloride 99.0 96.7 L (98-107) mmol/L Carbon Dioxide 25 27 (22-30) mmol/L BUN 67 H 52 H (9-20) mg/dL Creatinine 12.1 H 9.5 H (0.8-1.5) mg/dL Glucose 103 H 99 (75-100) mg/dL Calcium 9.9 9.5 (8.4-10.2) mg/dL - EKG Interpretation EKG: sinus rhythm Assessment and Plan 1. Generalized anasarca with ascites secondary to renal failure 2. Chronic combined systolic and diastolic heart failure 3. Diabetes mellitus. Cardiomyopathy 4. 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 Essential hypertension 6. Obesity Plan. Patient just had recurrent paracentesis for recurrent acititis. We will repeat echocardiogram to assess global and regional LV function. Nephrology consult for fluid management
[2018-12-02] MEDS: CATAPRES PO SCH ×3 (10:25→21:14)
[2018-12-02] MEDS: LASIX PO SCH (10:27)
[2018-12-02] MEDS: LOVENOX SUB-Q SCH (10:48)
--- NOTE | 2018-12-02 11:29 | Progress Note ---
Assessment and Plan Would recommend cardiac work-up to determine if his EF has decreased. He will need agressive dialysis and dietary modifications in an attempt to reduce his fluid. We will also schedule him for a fistulagram tomorrow to rule out access malfunction resulting in re-circulation. Additionally, the patient would benefit from urology consultation for possible bilateral nephrectomy. If conservative measures are unsuccessful, the patient may benefit from peritoneal drain placement for home drainage of his ascitic fluid. Subjective Date of service: 12/02/18 Principal diagnosis: Ascites, ESRD Interval history: Pt with a history of ESRD and recurrant ascites presents with abdominal distension. CT demonstrates moderate ascites and massive bilateral polycystic kidneys. Additionally, the patient has dilated cardiomyopathy. On presentation, he has anasarca and BLE edema. No evidence of hepatic involvement. Objective - Constitutional Vitals: Vital Signs - 12hr 12/01/18 12/01/18 12/02/18 23:54 23:56 05:35 Temperature 98.3 F 97.9 F Pulse Rate 67 67 Respiratory 20 20 Rate Blood Pressure 177/108 Blood Pressure 179/105 [Right] O2 Sat by Pulse 93 98 Oximetry 12/02/18 12/02/18 12/02/18 06:55 08:40 10:14 Temperature 98.2 F Pulse Rate 70 68 Respiratory 18 Rate Blood Pressure 192/104 Blood Pressure 181/95 [Right] O2 Sat by Pulse 92 Oximetry 12/02/18 10:25 Temperature Pulse Rate 66 Respiratory Rate Blood Pressure Blood Pressure [Right] O2 Sat by Pulse Oximetry General appearance: Present: no acute distress - EENT Eyes: PERRL ENT: hearing intact - Neck Neck: supple, normal ROM - Respiratory Respiratory effort: normal - Breasts Breasts: deferred Extremities: abnormal Extremity abnormal: edema - Gastrointestinal General gastrointestinal: Present: non-tender, distended Rectal Exam: deferred - Genitourinary Male genitourinary: deferred - Psychiatric Psychiatric: appropriate mood/affect, cooperative - Labs CBC & Chem 7: 12/02/18 05:42 12/02/18 05:42 Labs: Abnormal lab results 12/01/18 12/01/18 12/01/18 Range/Units 11:21 12:05 20:25 RBC (3.65-5.03) M/mm3 Hgb (11.8-15.2) gm/dl Hct (35.5-45.6) % RDW (13.2-15.2) % Noble % (Auto) (0.0-7.3) % Lymph # (1.2-5.4) K/mm3 Noble # (0.0-0.8) K/mm3 Potassium (3.6-5.0) mmol/L Chloride (98-107) mmol/L BUN (9-20) mg/dL Creatinine (0.8-1.5) mg/dL POC Glucose 115 H 138 H (70-105) Troponin T 0.609 H* (0.00-0.029) ng/mL 12/02/18 12/02/18 12/02/18 Range/Units 01:35 05:37 05:42 RBC 3.23 L (3.65-5.03) M/mm3 Hgb 9.8 L (11.8-15.2) gm/dl Hct 30.5 L (35.5-45.6) % RDW 18.7 H (13.2-15.2) % Noble % (Auto) 15.0 H (0.0-7.3) % Lymph # 0.9 L (1.2-5.4) K/mm3 Noble # 0.9 H (0.0-0.8) K/mm3 Potassium (3.6-5.0) mmol/L Chloride (98-107) mmol/L BUN (9-20) mg/dL Creatinine (0.8-1.5) mg/dL POC Glucose 137 H 108 H (70-105) Troponin T (0.00-0.029) ng/mL 12/02/18 Range/Units 05:42 RBC (3.65-5.03) M/mm3 Hgb (11.8-15.2) gm/dl Hct (35.5-45.6) % RDW (13.2-15.2) % Noble % (Auto) (0.0-7.3) % Lymph # (1.2-5.4) K/mm3 Noble # (0.0-0.8) K/mm3 Potassium 6.2 H* (3.6-5.0) mmol/L Chloride 96.7 L (98-107) mmol/L BUN 52 H (9-20) mg/dL Creatinine 9.5 H (0.8-1.5) mg/dL POC Glucose (70-105) Troponin T (0.00-0.029) ng/mL Medications & Allergies - Medications Allergies/Adverse Reactions: Allergies labetalol Allergy (Verified 10/16/18 15:22) Vomiting pt also reports drastic drop in HR polystyrene sulfonate [From Kayexalate] Allergy (Verified 10/16/18 13:24) Unknown tramadol [From Ultram] Adverse Reaction (Verified 03/05/18 15:30) Dizziness Home Medications: Home Medications Medication Instructions Recorded Confirmed Last Taken Type Furosemide [Lasix TAB] 20 mg PO QDAY #30 tablet 10/29/18 12/01/18 11/13/18 Rx 20mg cloNIDine [Catapres] 0.2 mg PO BID #60 tablet 10/29/18 12/01/18 11/13/18 Rx 0.2mg Active Medications: Generic Name Dose Route Start Last Admin Trade Name Freq PRN Reason Stop Dose Admin Clonidine HCl 0.2 mg 12/01/18 10:00 12/02/18 10:25 Catapres PO 0.2 mg BID [facility] Administration Dextrose 50 ml 12/01/18 04:22 D50w (25gm) Syringe IV PRN PRN Hypoglycemia Enoxaparin Sodium 30 mg 12/01/18 10:00 12/02/18 10:48 Lovenox SUB-Q Not Given QDAY [facility] Furosemide 20 mg 12/01/18 10:00 12/02/18 10:27 Lasix PO Not Given QDAY FOSTER Hydralazine HCl 10 mg 12/02/18 05:41 Apresoline IV Q4HR PRN Blood Pressure Sodium Chloride 100 mls @ 999 mls/hr 12/01/18 10:01 Nacl 0.9% IV JULIA PRN Hypotension Nitroglycerin 0.4 mg 12/01/18 11:51 Nitrostat SL .Q5MIN PRN Chest Pain Nitroglycerin 1 inch 12/01/18 14:00 12/02/18 08:40 Nitro-Bid 2% TP 1 inch Q6H FOSTER Administration Protocol Ondansetron HCl 4 mg 12/01/18 03:47 Zofran IV Q8H PRN Nausea And Vomiting Oxycodone/Acetaminophen 1 tab 12/01/18 10:30 12/02/18 03:55 Percocet 5/325 PO 1 tab Q6H PRN Administration Pain, Moderate (4-6) Sodium Chloride 10 ml 12/01/18 10:00 12/01/18 22:04 Sodium Chloride Flush Syringe 10 Ml IV 10 ml BID FOSTER Administration Sodium Chloride 10 ml 12/01/18 03:47 Sodium Chloride Flush Syringe 10 Ml IV PRN PRN LINE FLUSH
--- NOTE | 2018-12-02 12:50 | Progress Note ---
Assessment and Plan Assessment and plan: Abdominal distention secondary to recurrent ascites Hyperkalemia Hypertension ESRD on dialysis Polycystic kidney disease Plan Admitted to medicine Consulted interventional radiology for paracentesis - to be done tomorrow For hyperkalemia, ordered Insulin, kayexalate, calcium gluconate Dialysis as per Nephrology DVT prophylaxis with SCD History Interval history: Abdominal distension and discomfort chest pain yesterday, resolved Hospitalist Physical - Physical exam Narrative exam: Gen: Not in acute distress, lying in bed, obese HEENT: Normocephalic, atraumatic Neck: supple, no JVD Heart: S1 and S2 reg, no murmurs, rubs or gallop Lungs: Clear, no crackles, no wheeze Abd: soft, distension from gross ascitis, non tender, normal BS Ext: No edema, no clubbing, no cyanosis, Neuro: Awake,alert, oriented X 3, normal speech, moves all extremities - Constitutional Vitals: Temp Pulse Resp BP Pulse Ox 98.2 F 66 20 192/104 94 12/02/18 08:40 12/02/18 10:25 12/02/18 09:35 12/02/18 08:40 12/02/18 09:09 General appearance: Present: no acute distress Results - Labs CBC & Chem 7: 12/02/18 05:42 12/02/18 05:42 Labs: Laboratory Last Values WBC 5.8 K/mm3 (4.5-11.0) 12/02/18 05:42 RBC 3.23 M/mm3 (3.65-5.03) L 12/02/18 05:42 Hgb 9.8 gm/dl (11.8-15.2) L 12/02/18 05:42 Hct 30.5 % (35.5-45.6) L 12/02/18 05:42 MCV 94 fl (84-94) 12/02/18 05:42 MCH 30 pg (28-32) 12/02/18 05:42 MCHC 32 % (32-34) 12/02/18 05:42 RDW 18.7 % (13.2-15.2) H 12/02/18 05:42 Plt Count 214 K/mm3 (140-440) 12/02/18 05:42 Lymph % (Auto) 15.9 % (13.4-35.0) 12/02/18 05:42 [place] % (Auto) 15.0 % (0.0-7.3) H 12/02/18 05:42 Eos % (Auto) 3.8 % (0.0-4.3) 12/02/18 05:42 Baso % (Auto) 1.0 % (0.0-1.8) 12/02/18 05:42 Lymph # 0.9 K/mm3 (1.2-5.4) L 12/02/18 05:42 [place] # 0.9 K/mm3 (0.0-0.8) H 12/02/18 05:42 Eos # 0.2 K/mm3 (0.0-0.4) 12/02/18 05:42 Baso # 0.1 K/mm3 (0.0-0.1) 12/02/18 05:42 Seg Neutrophils % 64.3 % (40.0-70.0) 12/02/18 05:42 Seg Neutrophils # 3.7 K/mm3 (1.8-7.7) 12/02/18 05:42 PT 14.8 Sec. (12.2-14.9) 12/01/18 01:07 INR 1.19 (0.87-1.13) H 12/01/18 01:07 APTT 31.0 Sec. (24.2-36.6) 12/01/18 01:07 Sodium 139 mmol/L (137-145) 12/02/18 05:42 Potassium 6.2 mmol/L (3.6-5.0) H* 12/02/18 05:42 Chloride 96.7 mmol/L (98-107) L 12/02/18 05:42 Carbon Dioxide 27 mmol/L (22-30) 12/02/18 05:42 21 mmol/L 12/02/18 05:42 BUN 52 mg/dL (9-20) H 12/02/18 05:42 9.5 mg/dL (0.8-1.5) H 12/02/18 05:42 Estimated GFR 7 ml/min 12/02/18 05:42 5 % 12/02/18 05:42 Glucose 99 mg/dL (75-100) 12/02/18 05:42 POC Glucose 104 (70-105) 12/02/18 08:48 Calcium 9.5 mg/dL (8.4-10.2) 12/02/18 05:42 0.50 mg/dL (0.1-1.2) 12/01/18 01:07 AST 18 units/L (5-40) 12/01/18 01:07 ALT 16 units/L (7-56) 12/01/18 01:07 69 units/L (35-129) 12/01/18 01:07 0.663 ng/mL (0.00-0.029) H* 12/02/18 10:46 7.4 g/dL (6.3-8.2) 12/01/18 01:07 3.7 g/dL (3.9-5) L 12/01/18 01:07 1.0 % 12/01/18 01:07 Triglycerides 39 mg/dL (2-149) 12/01/18 12:05 Cholesterol 119 mg/dL (50-199) 12/01/18 12:05 68 mg/dL (50-130) 12/01/18 12:05 48 mg/dL (40-59) 12/01/18 12:05 2.47 % 12/01/18 12:05 Active Medications - Current Medications Current Medications: Generic Name Dose Route Start Last Admin Trade Name Freq PRN Reason Stop Dose Admin Clonidine HCl 0.2 mg 12/01/18 10:00 12/02/18 10:25 Catapres PO 0.2 mg BID [facility] Administration Dextrose 50 ml 12/01/18 04:22 D50w (25gm) Syringe IV PRN PRN Hypoglycemia Enoxaparin Sodium 30 mg 12/01/18 10:00 12/02/18 10:48 Lovenox SUB-Q Not Given QDAY [facility] Furosemide 20 mg 12/01/18 10:00 12/02/18 10:27 Lasix PO Not Given QDAY [facility] Hydralazine HCl 10 mg 12/02/18 05:41 Apresoline IV Q4HR PRN Blood Pressure Sodium Chloride 100 mls @ 999 mls/hr 12/01/18 10:01 Nacl 0.9% IV JULIA PRN Hypotension Nitroglycerin 0.4 mg 12/01/18 11:51 Nitrostat SL .Q5MIN PRN Chest Pain Nitroglycerin 1 inch 12/01/18 14:00 12/02/18 08:40 Nitro-Bid 2% TP 1 inch Q6H [facility]OSTER Administration Protocol Ondansetron HCl 4 mg 12/01/18 03:47 Zofran IV Q8H PRN Nausea And Vomiting Oxycodone/Acetaminophen 1 tab 12/01/18 10:30 12/02/18 03:55 Percocet 5/325 PO 1 tab Q6H PRN Administration Pain, Moderate (4-6) Sodium Chloride 10 ml 12/01/18 10:00 12/01/18 22:04 Sodium Chloride Flush Syringe 10 Ml IV 10 ml BID [facility]OSTER Administration Sodium Chloride 10 ml 12/01/18 03:47 Sodium Chloride Flush Syringe 10 Ml IV PRN PRN LINE FLUSH Nutrition/Malnutrition Assess - Dietary Evaluation Nutrition/Malnutrition Findings: Nutrition Notes Start: 12/01/18 14:23 Freq: Status: Active Protocol: Document 12/01/18 14:24 RM (Rec: 12/01/18 14:24 RM [id number]) Nutrition Notes 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 Rito 23 points. Nutrition Intervention Revisit per MD consult or patient Sign Off request:
[2018-12-02] MEDS: SODIUM CHLORIDE FLUSH SYRINGE 10 ML IV SCH ×3 (19:31→21:14)
[2018-12-02] MEDS ORDERED: MORPHINE IV ONE (19:54)
[2018-12-03] MEDS: PERCOCET 5/325 PO PRN (00:14)
[2018-12-03] MEDS: NITRO-BID 2% TP SCH ×2 (01:55→08:03)
[2018-12-03] MEDS ORDERED: HEPARIN/NS 5000 UNIT/500ML(CATH LAB) 1,000 ML IR ONE (08:22)
[2018-12-03] MEDS ORDERED: HEPARIN 10,000 UNITS/10 ML ONE (08:22)
[2018-12-03] MEDS ORDERED: NACL 0.9% 500 ML 500 ML ONE (08:30)
[2018-12-03] MEDS: SUBLIMAZE ONE ×2 (08:55→08:58)
[2018-12-03] MEDS: VERSED ONE ×2 (08:55→08:58)
[2018-12-03] MEDS: XYLOCAINE 2% INFILTRATI ONE ×2 (08:58→09:22)
--- NOTE | 2018-12-03 09:31 | Progress Note ---
Assessment and Plan Volume overload Chronic Ascites Enlarged Polycystic Kidneys seen on abdomen CT End-stage renal disease on hemodialysis Chronic systolic heart failure Nonischemic Cardiomyopathy EF 35-40% by echo 02/2018 no ischemia on MPI 12/2017 Hypertension Hypothyroidism Recommendations: Fluid/sodium restriction. Dialysis for fluid removal. Medical therapy for chronic systolic heart failure and nonischemic cardiomyopathy. Subjective Date of service: 12/03/18 Principal diagnosis: Ascites, ESRD Interval history: Patient denies chest pain. Reports his breathing is better. Objective Vital Signs Temp Pulse Pulse Resp Resp Resp BP 12/03/18 04:51 98.6 F 75 16 12/03/18 04:00 97 F L 73 16 12/03/18 03:23 97.8 F 59 L 16 182/95 12/03/18 02:54 98.0 F 20 12/03/18 01:55 98 H 186/92 12/03/18 01:14 20 12/03/18 00:14 18 12/02/18 23:32 98.2 F 16 186/98 12/02/18 23:00 68 12/02/18 22:40 12/02/18 20:39 18 12/02/18 20:29 18 12/02/18 20:20 20 12/02/18 20:09 70 18 210/110 12/02/18 20:08 70 210/110 12/02/18 19:35 98.1 F 15 226/115 12/02/18 19:32 76 12/02/18 19:00 75 12/02/18 17:09 184/89 12/02/18 15:56 20 12/02/18 15:53 20 12/02/18 13:00 12/02/18 10:25 66 12/02/18 10:14 68 12/02/18 09:35 80 20 BP Pulse Ox 12/03/18 04:51 112/78 97 12/03/18 04:00 114/71 98 12/03/18 03:23 91 12/03/18 02:54 12/03/18 01:55 12/03/18 01:14 12/03/18 00:14 12/02/18 23:32 12/02/18 23:00 96 12/02/18 22:40 98 12/02/18 20:39 12/02/18 20:29 12/02/18 20:20 96 12/02/18 20:09 12/02/18 20:08 12/02/18 19:35 210/110 12/02/18 19:32 12/02/18 19:00 12/02/18 17:09 12/02/18 15:56 12/02/18 15:53 12/02/18 13:00 98 12/02/18 10:25 12/02/18 10:14 12/02/18 09:35 - Physical Examination General: No Apparent Distress HEENT: Positive: PERRL Neck: Positive: trachea midline Cardiac: Positive: Reg Rate and Rhythm Lungs: Positive: Decreased Breath Sounds Neuro: Positive: Grossly Intact Abdomen: Positive: Distended Extremities: Present: +3 Edema - Allied health notes Allied health notes reviewed: nursing
--- NOTE | 2018-12-03 09:39 | Operative Report ---
Operative Report Operative Report: EXAM: Ultrasound guided access of the left arm AV basilic vein Placement of a sheath towards the venous outflow Fistulogram Distal basilic vein venoplasty with a 8 mm x 2 cm cutting angioplasty balloon Distal basilic vein venoplasty with a 9 mm x 6 cm angioplasty DATE: 12/03/18 BACK HOE OPERATOR: JEREMIAH WU MD INDICATION: AV fistula malfunction with abnormal clearances MEDICATIONS: Please see nursing report for full details. DEVICES: 8 mm x 2 cm cutting angioplasty balloon 9 mm x 6 cm angioplasty balloon PROCEDURE: The risks, benefits, and alternatives of the procedure were discussed and written informed consent was obtained. The patient was transported in stable condition to the angiography suite. The patient's left arm AV basilic vein fistula with interposition graft was assessed by ultrasound and was patent. The patient was prepped and draped in a sterile fashion. Under ultrasound guidance, the left arm AV basilic vein fistula was accessed with a 21-gauge micropuncture needle. The area was anesthetized prior to access. 0.018 inch wire was advanced through the micropuncture needle into the fistula and then the needle was exchanged for a 5 Portuguese transitional dilator. The inner dilator and wire were removed and a 0.035 inch wire was advanced through the venous outflow. The transitional dilator was exchanged for a 7 Portuguese short sheath. Fistulogram was performed of the venous outflow and central veins. Reflux into the arterial anastomosis was performed. 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 8 mm x 2 cm cutting angioplasty balloon was used to treat the distal basilic vein and this was subsequently treated with a 9 mm x 6 cm angioplasty balloon. Digital subtraction angiography demonstrated less than 10% residual narrowing. The central veins were patent. The wire was removed and the site was closed with a 3-0 Vicryl suture. The sheath was then removed. Hemostasis was achieved with slight manual compression. The patient was transported from the angiography suite to the floor in stable condition. IMPRESSION: Successful peripheral dialysis access angioplasty as described above.
[2018-12-03] MEDS: CATAPRES PO SCH (10:16)
[2018-12-03] MEDS: LOVENOX SUB-Q SCH (10:17)
[2018-12-03] MEDS: LASIX PO SCH (10:17)
[2018-12-03 12:24] VITALS: BP 195/93
--- NOTE | 2018-12-03 14:43 | Discharge Summary ---
Providers - Providers Date of Admission: 12/01/18 05:22 Date of discharge: 12/03/18 Attending physician: HOLLIS SCOTT 12/01/18 03:47 Consult to Physician [CONS] Routine Comment: Consulting Provider: MARILEE DESIR Physician Instructions: Reason For Exam: hd 12/01/18 04:06 Consult to Interventional Radiology [CONS] Routine Consulting Provider: JEREMIAH CERDA Reason For Exam: paracentesis Place consult to:: DR CERDA Notified:: A SERVICE Phone number called:: [phone] Was contact made?: Yes If yes, spoke with:: ZIYAD Time called:: 09:10 12/01/18 13:17 Consult to Physician [CONS] Routine Comment: Consulting Provider: YELENA JO Physician Instructions: Reason For Exam: chest pain [facility] Condition: Undetermined Hospital course: Patient is 48-year-old man with a history of polycystic kidney disease, hypertension, recurrent ascites ,end-stage renal disease and dialysis comes emergency room abdominal distention that started 3 days ago. He has had paracentesis before. He states that his belly is gotten so much bigger, started having shortness of breath. Patient was evaluated in ED and admitted. He was evaluated by Nephrology, Cardiology He was also evaluated by Vascular surgeon for laft av fistula malfunction. Ultrasound paracentesis was done on 12/02/18, and fistulogram and angioplasty was done on 12/03/18 to left av fistula. Dialysis was done and he was discharged home 12/03/18. Total time spent on discharge, 32 mins Disposition: DC-07 LEFT AGAINST MED ADVICE - Discharge Diagnoses (1) ESRD (end stage renal disease) Status: Acute (2) End-stage renal disease needing dialysis Status: Acute (3) HTN (hypertension) Status: Acute Qualifiers: Hypertension type: essential hypertension Qualified Code(s): I10 - Essential (primary) hypertension (4) Hyperkalemia Status: Acute (5) Hypertensive emergency Status: Acute (6) Ascites Status: Acute (7) Complications, dialysis, catheter, mechanical Status: Acute Core Measure Documentation - Palliative Care Palliative Care/ Comfort Measures: Not Applicable - Core Measures Any of the following diagnoses?: none Exam - Constitutional Vitals: Temp Pulse Resp BP Pulse Ox 98.5 F 67 18 195/93 92 12/03/18 11:18 12/03/18 11:18 12/03/18 11:18 12/03/18 11:18 12/03/18 14:11 [facility] [Primary Care Provider] - 3-5 Days Forms: AMA Form
--- NOTE | 2018-12-05 10:37 | Ultrasound Report ---
Exam: Ultrasound-guided paracentesis Clinical indication: Patient with nephrogenic ascites, best for difficulty Date: 12/02/2018 Procedure: Following explanation of the risks, benefits and alternatives; written informed consent was obtained. The patient was brought to the ultrasound suite and four quadrant ultrasound of the abdomen performed. An appropriate access site was chosen in the left lower quadrant. The patient's left lower abdomen was prepped and draped in the usual sterile fashion. 1% lidocaine was used for anesthesia. Under ultrasound guidance, a 5 Bulgarian Yueh needle was advanced into the ascitic fluid. An image was saved for documentation. A total of 2.7 L of clear yellow ascitic fluid was then aspirated. Samples were sent for laboratory analysis. The Yueh needle was removed and hemostasis achieved using manual compression. A sterile dressing was applied. The patient tolerated the procedure well. There were no immediate complications. Impression: Ultrasound guided paracentesis with 2.7 L of clear yellow ascitic fluid aspirated, a sample was sent for laboratory analysis.
[2018-12-06 08:49] LABS: Total Protein,Body Fluid 3.3 (15.0-45.0)
== END 2018-12-03 15:01 | disposition left against medical advice (07) | DRG 252 ==
LOC: ED 22:57 → 4A 12-01 05:22
PROVIDERS: ADMIT Internal Medicine; ATTEND Internal Medicine
PROC: 5A1D70Z Performance of Urinary Filtration, Intermittent, Less than 6 Hours Per Day (ICD-10-PCS; 2018-12-01)
PROC: 057C3ZZ Dilation of Left Basilic Vein, Percutaneous Approach (ICD-10-PCS; principal; 2018-12-03)
PROC: B51W1ZZ Fluoroscopy of Dialysis Shunt/Fistula using Low Osmolar Contrast (ICD-10-PCS; 2018-12-03)
DX: T82.510A Breakdown (mechanical) of surgically created arteriovenous fistula, initial encounter (principal); N18.6 End stage renal disease; I13.0 Hypertensive heart and chronic kidney disease with heart failure and stage 1 through stage 4 chronic kidney disease, or unspecified chronic kidney disease; R18.8 Other ascites; I50.42 Chronic combined systolic (congestive) and diastolic (congestive) heart failure; I42.0 Dilated cardiomyopathy; E03.9 Hypothyroidism, unspecified; E66.9 Obesity, unspecified; Z53.21 Procedure and treatment not carried out due to patient leaving prior to being seen by health care provider; E87.70 Fluid overload, unspecified; Y83.2 Surgical operation with anastomosis, bypass or graft as the cause of abnormal reaction of the patient, or of later complication, without mention of misadventure at the time of the procedure; N28.1 Cyst of kidney, acquired; Z82.49 Family history of ischemic heart disease and other diseases of the circulatory system; Z99.2 Dependence on renal dialysis; Z88.8 Allergy status to other drugs, medicaments and biological substances; Z88.6 Allergy status to analgesic agent; Z83.3 Family history of diabetes mellitus; Z95.828 Presence of other vascular implants and grafts; Z68.36 Body mass index [BMI] 36.0-36.9, adult; Y92.098 Other place in other non-institutional residence as the place of occurrence of the external cause
CPT/HCPCS: 36415; 36902; 49083; 71045; 74177; 76937; 80048; 80053; 80061; 82040; 82962; 84160; 84484; 85025; 85610; 85730; 87116; 93005; 93010; 94640; 96372; 96374; 96375; 99283; G0378; C1725; C1769; C1894; J0360; J0610; J1644; J1650; J1815; J2250; J2270; J2405; J3010; J7030; J7040; Q9967

== ENCOUNTER 2018-12-03 18:52 | Emergency (ER) | payer MEDICARE ==
--- NOTE | 2018-12-03 20:53 | Emergency Department Report ---
ED Dizziness HPI - General Chief Complaint: Dizziness Stated Complaint: SWELLING/AMS/DIZZINESS Time Seen by Provider: 12/03/18 19:46 Source: patient, EMS Mode of arrival: Stretcher Limitations: Physical Limitation - History of Present Illness Initial Comments: Mr. Ledbetter is a 48 yo with hx of ESRD, CHF, HTN, SVT, ascites who recently left the hospitalist service this morning against medical advice. Today he underwent angioplasty of peripheral dialysis access. He left prior to proper disposition because he refused lab draw. He returns to hospital for dizziness when laying flat and sitting upright. He denies chest pain or shortness of breath. MD Complaint: dizziness -: Gradual, This afternoon Timing: gradual onset Description: lightheadedness History of Same: No History of Trauma: No Severity: mild Worsens With: position - Related Data Previous Rx's Medication Instructions Recorded Last Taken Type Furosemide [Lasix TAB] 20 mg PO QDAY #30 tablet 10/29/18 11/13/18 Rx 20mg cloNIDine [Catapres] 0.2 mg PO BID #60 tablet 10/29/18 11/13/18 Rx 0.2mg Allergies Allergy/AdvReac Type Severity Reaction Status Date / Time labetalol Allergy Vomiting Verified 10/16/18 15:22 polystyrene sulfonate Allergy Unknown Verified 10/16/18 13:24 [From Kayexalate] tramadol [From Ultram] AdvReac Dizziness Verified 03/05/18 15:30 ED Review of Systems ROS: Stated complaint: SWELLING/AMS/DIZZINESS Other details as noted in HPI Comment: All other systems reviewed and negative Constitutional: denies: fever, malaise Respiratory: denies: cough Cardiovascular: denies: chest pain ED Past Medical Hx - Past Medical History Previous Medical History?: Yes Hx Hypertension: Yes Hx CVA: No Hx Heart Attack/AMI: No Hx Congestive Heart Failure: Yes (diastolic - CHRONIC , CARDIOMYOPATHY) Hx Diabetes: No Hx Deep Vein Thrombosis: No Hx Pulmonary Embolism: No Hx GERD: No Hx Liver Disease: No Hx Renal Disease: Yes (HD TTS) Hx Sickle Cell Disease: No Hx Arthritis: No Hx Headaches / Migraines: No Hx Seizures: No Hx Kidney Stones: No Hx Psychiatric Treatment: No Hx Asthma: No Hx COPD: No Hx Tuberculosis: No Hx Dementia: No Hx HIV: No Additional medical history: Abdominal Hernias, right groin hernia, - Surgical History Past Surgical History?: Yes Hx Coronary Stent: No Hx Open Heart Surgery: No Hx Pacemaker: No Hx Internal Defibrillator: No Hx Cholecystectomy: No Hx Appendectomy: No Hx Breast Surgery: No Additional Surgical History: dialysis access left arm, groin hernia repair, - Social History Smoking Status: Current Some Day Smoker Substance Use Type: Marijuana - Medications Home Medications: Home Medications Medication Instructions Recorded Confirmed Last Taken Type Furosemide [Lasix TAB] 20 mg PO QDAY #30 tablet 10/29/18 12/01/18 11/13/18 Rx 20mg cloNIDine [Catapres] 0.2 mg PO BID #60 tablet 10/29/18 12/01/18 11/13/18 Rx 0.2mg ED Physical Exam - General Limitations: Physical Limitation General appearance: alert, in no apparent distress - Head Head exam: Present: atraumatic, normocephalic - Eye Eye exam: Present: normal appearance - ENT ENT exam: Present: mucous membranes moist - Neck Neck exam: Present: normal inspection, full ROM - Respiratory Respiratory exam: Present: normal lung sounds bilaterally. Absent: respiratory distress, wheezes - Cardiovascular Cardiovascular Exam: Present: regular rate, normal rhythm, normal heart sounds. Absent: rubs, gallop - GI/Abdominal GI/Abdominal exam: Present: soft, distended, normal bowel sounds. Absent: tenderness, guarding, rebound - Rectal Rectal exam: Present: deferred - Back Exam Back exam: Present: normal inspection - Neurological Exam Neurological exam: Present: alert, oriented X3 - Psychiatric Psychiatric exam: Present: normal affect, normal mood - Skin Skin exam: Present: warm, dry, intact. Absent: rash ED Course Vital Signs 12/03/18 19:32 Temperature 98.4 F Pulse Rate 57 L Respiratory 16 Rate Blood Pressure 159/94 Blood Pressure 159/94 [Right] O2 Sat by Pulse 96 Oximetry ED Medical Decision Making - Medical Decision Making Mr. Ledbetter presents with lightheadedness and dizziness with position change. Possible adverse effect of analgesia and antihypertensive medication he received in the perioperative period this morning after his last with procedure. He appears well. Again he refuses blood draw. I told him that his potassium level should be checked prior to be discharged. He refused blood draw from phlebotomy and registered nurse. He will follow-up with dialysis tomorrow at his home center. Discharged home in stable condition. Critical care attestation.: If time is entered above; I have spent that time in minutes in the direct care of this critically ill patient, excluding procedure time. ED Disposition Clinical Impression: Lightheadedness, End stage chronic kidney disease, ESRD (end stage renal disease) on dialysis Disposition: DC-01 TO HOME OR SELFCARE Is pt being admited?: No Does the pt Need Aspirin: No Condition: Stable Instructions: Dizziness (ED), Lightheadedness (ED)
[2018-12-03 21:18] VITALS: BP 153/88
== END 2018-12-03 21:16 | disposition home or self-care (01) ==
LOC: ED 18:52
DX: I13.2 Hypertensive heart and chronic kidney disease with heart failure and with stage 5 chronic kidney disease, or end stage renal disease (principal); N18.6 End stage renal disease; I50.32 Chronic diastolic (congestive) heart failure; R42 Dizziness and giddiness; F17.200 Nicotine dependence, unspecified, uncomplicated; F12.90 Cannabis use, unspecified, uncomplicated; Z99.2 Dependence on renal dialysis; Z79.899 Other long term (current) drug therapy; Z88.6 Allergy status to analgesic agent; Z88.8 Allergy status to other drugs, medicaments and biological substances; Z91.048 Other nonmedicinal substance allergy status
CPT/HCPCS: 99283

== ENCOUNTER 2018-12-12 07:30 | Day surgery (SDC) | payer MEDICARE ==
--- NOTE | 2018-11-23 02:05 | Consultation ---
PULMONARY CRITICAL CARE CONSULTATION CONSULTING PHYSICIAN: Dr. Salomon. REASON FOR CONSULTATION: Critical care management, hypertensive emergency. CHIEF COMPLAINT AND HISTORY OF PRESENT ILLNESS: As follows: The patient is a 48-year-old -[place] male with past medical history significant amongst other things for a diagnosis of end-stage renal disease, on dialysis. I believe Monday, and Monday, also a history of polycystic kidney disease, and liver cirrhosis/end-stage liver disease complicated with recurrent ascites, requiring serial paracentesis also with congestive heart failure with an ejection fraction of 35%, came into the Emergency Room complaining of shortness of breath, feeling bloated, increasing dyspnea on exertion that had been going on for about a week. He actually tells me he came to try and see if he could get a paracentesis. He complained of orthopnea, paroxysmal nocturnal dyspnea. He even complained of some dyspnea at rest. He denied any chest pains. He denied any gross or streaky hemoptysis. He denied any sick contacts. He denied missing any of dialysis sessions, stated that he had been taking his medications at home and did not run out of any medications. In the Emergency Room, he was evaluated and amongst other things, he was found to be significantly hypertensive with essentially hypertensive urgency, blood pressures as high as 202/130 with a mean arterial pressure of 154. We are asked to assist with management. When I stopped by to see him, he was resting in bed. Blood pressures were a little bit better nicardipine drip had been going, I believe 5 mg per hour. He denied chest pain and was less short of breath. He has just had a paracentesis done and felt his breathing was much easier. Now with regards to tobacco use/abuse history, the patient has about a [id number] tobacco smoking history and it appears he continues to smoke. This really is as much of the history of presentation as I have. PAST MEDICAL HISTORY: End-stage renal disease, gastroesophageal reflux disease, congestive heart failure, hypertension, liver cirrhosis, tobacco use disorder, obesity, and anemia of chronic disease. PAST SURGICAL HISTORY: Status post AV feel fistula, status post hernia repair surgery. MEDICATIONS: He was on at the time I stopped by to see him were reviewed. Pertinent medications included the following: Aspirin 325 mg p.o., he says p.r.n. I believe it is 325 mg p.o. daily, clonidine 0.2 mg p.o. t.i.d., Lasix 20 mg IV b.i.d., heparin 5000 units subQ. q. 12 hours, hydralazine 10 mg IV q. 6 hours p.r.n. systolic blood pressure greater than 170, hydralazine 100 mg p.o. t.i.d., morphine 2 mg IV q. 4 hours p.r.n. moderate pain, nicardipine drip had been going at 5 mg per hour and Renvela 1.6 grams p.o. t.i.d. with meals. ALLERGIES: LABETALOL, KAYEXALATE, AND TRAMADOL. Nature of this allergy is unknown. DIET: Obese gentleman. Denies acute weight loss or gain in the preceding few weeks to months. FAMILY AND SOCIAL HISTORY: He is . He lives with his family, lives in the community. He has about a [id number] tobacco smoking history. Denies illicit drug use. Denies alcohol use or abuse. He has a family history of diabetes and hypertension. REVIEW OF SYSTEMS: No overt loss of consciousness. No new onset seizures. He denies any new odynophagia. No new ear discharge. No tinnitus. He has the orthopnea, paroxysmal nocturnal dyspnea. He denies any new onset lower extremities swelling. He denies gross or streaky hemoptysis. He denies any abdominal pain. He denies any heat or cold intolerance. Denies polydipsia. Denies polyuria. Denies any new lumps, bumps, rashes on his body. Denies any pruritus. He denies any periods of unexplained elation or sadness as may be consistent with depression or eduar. Complete 13-system review of systems obtained. Pertinent positives and/or negatives as in body of history above, otherwise they are noncontributory. PHYSICAL EXAMINATION: VITAL SIGNS: At presentation, he was afebrile, temperature 98.8 degrees Fahrenheit, pulse was 66, respiratory rate was 24, and blood pressure was 206/107. O2 sats were 96%, inspired oxygen concentration at the time was not recorded. When I stopped by to see him, O2 sats were 97%, but that was on 2 liters nasal cannula. GENERAL: He is a middle-aged obese -[place] male. Normocephalic, atraumatic, talking to me in mostly full sentences with mildly increased respiratory effort at rest. HEAD, EYES, EARS, NOSE AND THROAT: He is anicteric. No conjunctival erythema. Oropharynx is moist, is a Mallampati #3 oropharynx. He has a large neck circumference. No gross jugular venous distention, no thyromegaly. LUNGS: Auscultation of both lung ricks revealed bilateral rales, no wheezing. HEART: Heart sounds 1 and 2 are heard. They were regular in rate and rhythm at the time of my evaluation. He had a systolic murmur. ABDOMEN: Soft, full, bowel sounds are positive. Protuberant, nontender, no palpable hepatosplenomegaly. EXTREMITIES: Without overt digital clubbing or cyanosis. He has about 1+ bipedal pitting edema. Pedal pulses are palpable bilaterally and strong. NEUROLOGIC: Pupils are equal, round, about 3 mm, reactive to light. Extraocular muscle movements are intact. He moves all 4 extremities spontaneously. Power is symmetrical 4-5/5 bilaterally. No fasciculations. No spasticity. SKIN: The skin is of poor turgor. He has chronic stasis dermatitis type rash to the lower extremities/legs in particular, however, no overt cellulitis or rash. LABORATORY DATA: From my review are as follows: Admission white cell count 6500, hemoglobin 9.8, hematocrit 30.9, platelet count 191. No band forms reported. Serum sodium was 142, potassium 6.8, chloride 99, bicarbonate 23, BUN was 69, creatinine was 12.0, glucose was 99. Liver function tests essentially within normal limits. CPK was elevated at 1357. Troponin was up at 0.773. BNP was elevated. LDL cholesterol was 70 and a paracentesis fluid has been sent. Final results are pending. Ascites fluid culture, no growth to date. He had a chest x-ray done. I have reviewed the chest x-ray. I have also reviewed the radiologist's interpretation. I do agree with it, gross cardiomegaly. The film is rotated to the left. He does have small bilateral pleural effusions and increased interstitial markings consistent with pulmonary venous congestion. ASSESSMENT AND PLAN: 1. Hypertensive emergency. 2. End-stage renal disease, on dialysis. 3. Acute hypoxemic respiratory failure. 4. Hyperkalemia. 5. Acute pulmonary edema. 6. Anemia of chronic disease. 7. Acute congestive heart failure exacerbation. 8. Ascites requiring paracentesis. 9. Noncompliance with medical care. 10. Polycystic kidney disease. 11. Elevated serum creatinine kinase 12. Elevated serum troponins. PLAN: He is feeling better post-paracentesis that obviously relieved diaphragmatic pressure and improved pulmonary compliance. We will defer to the dialysis and ultrafiltration for volume removal. Oxygen will be weaned to keep sats greater than or equal to about 90%. Aspiration precautions will be maintained. Bilevel positive airway pressure ventilation therapy will be offered on a p.r.n. basis. I have counseled him strongly to improve his medical care, compliance and told him that he is going to get benefit from tobacco abstinence at any point in his disease progression. Cardiology evaluation is ongoing appropriately. Nephrology evaluation is ongoing. I doubt that there is any real need for antibiotic therapy in this gentleman. Blood pressure control is improving. He is going to be weaned off the Cardene drip as his home medications are reintroduced. We will continue the hydralazine p.r.n. for systolic blood pressures greater than 170 mmHg. I will schedule it in the first 24 hours with hold parameters, so that we do end up back on the IV Cardene drip. He is going to be placed on GI prophylaxis. He is appropriately on DVT prophylaxis. Bronchodilators will be ordered on a p.r.n. basis. Flu and pneumonia vaccination will be addressed per protocol. Thank you very much for the consult, Dr. Salomon. We will continue to watch him in the intensive care unit. He is critically ill on life-sustaining interventions including the Cardene drip at high risk for deterioration including the risk of . At this time, I spent about 35-40 minutes of critical care time without overlap and excluding any procedural time that may be necessary. JOB# [id number] MARLYN/FELIPE
[2018-12-12] MEDS ORDERED: ALBURX 25% (ALBUMIN) IV PRN (09:20)
--- NOTE | 2018-12-12 09:20 | Short Stay Summary ---
Short Stay Documentation Date of service: 12/12/18 - History Principal diagnosis: ascites Past Medical History: renal failure - Allergies and Medications Current Medications: Allergies labetalol Allergy (Verified 10/16/18 15:22) Vomiting pt also reports drastic drop in HR polystyrene sulfonate [From Kayexalate] Allergy (Verified 10/16/18 13:24) Unknown tramadol [From Ultram] Adverse Reaction (Verified 03/05/18 15:30) Dizziness Home Medications Medication Instructions Recorded Confirmed Last Taken Type Furosemide [Lasix TAB] 20 mg PO QDAY #30 tablet 10/29/18 12/12/18 12/10/18 Rx 20mg cloNIDine [Catapres] 0.2 mg PO BID #60 tablet 10/29/18 12/12/18 12/12/18 06:30 Rx 0.2mg - Physical exam General appearance: no acute distress Gastrointestinal: distended - Brief post op/procedure progress note Date of procedure: 12/12/18 Pre-op diagnosis: ascites Post-op diagnosis: same Procedure: US paracentesis Anesthesia: local Findings: moderate ascites Surgeon: BARTOLOME IBRAHIM Estimated blood loss: none Pathology: none Specimen disposition: discarded Condition: stable - Hospital course Hospital course: uneventful - Disposition Condition at discharge: Good Disposition: DC-01 TO HOME OR SELFCARE Short Stay Discharge Plan Follow up with: FRANKO GRANDE MD [Primary Care Provider] - 7 Days
[2018-12-12 11:02] VITALS: BP 174/98
--- NOTE | 2018-12-12 15:12 | Ultrasound Report ---
ULTRASOUND-GUIDED PARACENTESIS HISTORY: ascites. PROCEDURE: The risks (including but not limited to bleeding, infection, and bowel injury) and benefi ts were explained to the patient and informed consent was obtained. A time out procedure was perform ed. Ultrasound was used to evaluate the abdomen and locate the largest ascites fluid pocket. Once the sk in was marked, the procedure site was prepped and draped in the usual sterile fashion and lidocaine w as used for local anesthesia. A skin meka was made and a 5-Romanian paracentesis catheter was placed. The patient was monitored closely throughout the procedure, and a total of 3500 mL of clear yellow f luid was aspirated. No labs were ordered. The patient tolerated the procedure well with no complications. IMPRESSION: Successful paracentesis as described above. Signer Name: Lavelle Aaron Jr, MD Signed: 12/12/2018 3:08 PM Workstation Name: [id number]
== END 2018-12-12 11:10 | disposition home or self-care (01) ==
LOC: EDSTATUS 07:30 → CATHLABREC 07:30
PROVIDERS: ATTEND Internal Medicine Gastroenterology
DX: R18.8 Other ascites (principal); I13.2 Hypertensive heart and chronic kidney disease with heart failure and with stage 5 chronic kidney disease, or end stage renal disease; I50.43 Acute on chronic combined systolic (congestive) and diastolic (congestive) heart failure; N18.6 End stage renal disease; E66.9 Obesity, unspecified; I20.8 Other forms of angina pectoris; F17.200 Nicotine dependence, unspecified, uncomplicated; Z91.15 Patient's noncompliance with renal dialysis; Z87.440 Personal history of urinary (tract) infections; Z99.2 Dependence on renal dialysis; Z98.890 Other specified postprocedural states; Z79.899 Other long term (current) drug therapy; Z88.8 Allergy status to other drugs, medicaments and biological substances; Z68.35 Body mass index [BMI] 35.0-35.9, adult; Z86.79 Personal history of other diseases of the circulatory system
CPT/HCPCS: 49083

== ENCOUNTER 2018-12-17 09:08 | Outpatient (CLI) | payer MEDICARE | END 2018-12-17 09:09 | disposition home or self-care (01) | LOC: WOUND 09:08 | PROVIDERS: ATTEND Surgery | DX: L97.818 Non-pressure chronic ulcer of other part of right lower leg with other specified severity (principal); I87.2 Venous insufficiency (chronic) (peripheral); I12.0 Hypertensive chronic kidney disease with stage 5 chronic kidney disease or end stage renal disease; N18.6 End stage renal disease; I89.0 Lymphedema, not elsewhere classified; F17.210 Nicotine dependence, cigarettes, uncomplicated | CPT/HCPCS: 99213; G0463 ==

== ENCOUNTER 2018-12-19 07:45 | Day surgery (SDC) | payer MEDICARE ==
[2018-12-19 08:34] LABS: INR 1.22 (0.87-1.13)
[2018-12-19 08:35] LABS: Partial Thromboplastin Time 29.2 Sec. (24.2-36.6)
[2018-12-19] MEDS ORDERED: XYLOCAINE 1% 20 mL ONE (09:10)
--- NOTE | 2018-12-19 10:42 | Ultrasound Report ---
ULTRASOUND-GUIDED PARACENTESIS INDICATION: Recurrent ascites Procedure was discussed and advanced with the patient including possible risks and benefits. Patient has had the procedure several times in the past. Patient is not on anticoagulant therapy and has no p ertinent allergies. Timeout was performed. Sonography was used to localize a suitable pocket of ascites in the right lower quadrant. Under local anesthesia and aseptic technique, this collection was accessed using a 6 Wallisian centesis catheter. 3 200 cc of clear yellowish ascitic fluid were withdrawn by vacuum aspiration. The catheter was removed and the site was secured. Patient tolerated the procedure well and left the department in good condi tion. IMPRESSION: Successful ultrasound-guided paracentesis Signer Name: Anthony Ornelas MD Signed: 12/19/2018 10:37 AM Workstation Name: [id number]
[2018-12-19 10:46] VITALS: BP 170/92
== END 2018-12-19 11:00 | disposition home or self-care (01) ==
LOC: CATHLABREC 07:45
PROVIDERS: ATTEND Internal Medicine Gastroenterology
DX: R18.8 Other ascites (principal); I13.2 Hypertensive heart and chronic kidney disease with heart failure and with stage 5 chronic kidney disease, or end stage renal disease; N18.6 End stage renal disease; I50.22 Chronic systolic (congestive) heart failure; I42.9 Cardiomyopathy, unspecified; E66.9 Obesity, unspecified; D64.9 Anemia, unspecified; F17.200 Nicotine dependence, unspecified, uncomplicated; Z87.440 Personal history of urinary (tract) infections; Z91.19 Patient's noncompliance with other medical treatment and regimen; Z91.14 Patient's other noncompliance with medication regimen; Z68.35 Body mass index [BMI] 35.0-35.9, adult; Z99.2 Dependence on renal dialysis; Z98.890 Other specified postprocedural states; Z86.718 Personal history of other venous thrombosis and embolism; Z88.8 Allergy status to other drugs, medicaments and biological substances; Z79.899 Other long term (current) drug therapy
CPT/HCPCS: 36415; 49083; 85610; 85730

== ENCOUNTER 2018-12-22 18:49 | Inpatient (IN) | payer MEDICARE ==
[2018-12-22] MEDS ORDERED: BABY ASPIRIN PO ONE (19:25)
[2018-12-22 20:07] LABS: Basophils # (Auto) 0.1 K/mm3 (0.0-0.1); Eosinophils # (Auto) 0.1 K/mm3 (0.0-0.4); Eosinophils % (Auto) 1.9 % (0.0-4.3); Hematocrit 31.3 % (35.5-45.6); Hemoglobin 10.1 gm/dl (11.8-15.2); Lymphocytes # (Auto) 1.1 K/mm3 (1.2-5.4); Lymphocytes % (Auto) 17.5 % (13.4-35.0); Mean Corpuscular HGB Conc 32 % (32-34); Mean Corpuscular Volume 95 fl (84-94); Monocytes # (Auto) 0.9 K/mm3 (0.0-0.8); Monocytes % (Auto) 15.6 % (0.0-7.3); Platelet Count 200 K/mm3 (140-440); Red Blood Count 3.29 M/mm3 (3.65-5.03)
[2018-12-22 20:30] LABS: INR 1.56 (0.87-1.13)
[2018-12-22 20:31] LABS: Partial Thromboplastin Time 53.1 Sec. (24.2-36.6)
[2018-12-22 20:34] LABS: Albumin 3.4 g/dL (3.9-5); Calcium 9.2 mg/dL (8.4-10.2)
--- NOTE | 2018-12-22 20:37 | XRay Report ---
CHEST 1 VIEW, 12/22/2018 7:44 PM INDICATION: Chest pain COMPARISON: Chest radiograph, 12/01/2018 FINDINGS: Support devices: None Heart: Cardiac silhouette appears mildly enlarged. Pulmonary vascularity remains prominent. Lungs/pleura: No focal airspace consolidation or large pleural effusion is seen. Additional findings: No additional acute findings. IMPRESSION: 1. Stable enlargement of the cardiac silhouette with prominence of the pulmonary interstitium suggest bee of mild pulmonary edema. Signer Name: Sari Arreola MD Signed: 12/22/2018 8:33 PM Workstation Name: [id number]
[2018-12-22] MEDS ORDERED: PROVENTIL IH ONE (20:43)
[2018-12-22] MEDS ORDERED: HumuLIN R IV ONE (20:43)
[2018-12-22] MEDS ORDERED: D50W (25GM) Syringe IV ONE (20:43)
--- NOTE | 2018-12-22 20:43 | Emergency Department Report ---
ED Shortness of Breath HPI - General Chief Complaint: Chest Pain Stated Complaint: MADDIE Time Seen by Provider: 12/22/18 20:30 Source: EMS Mode of arrival: Ambulatory Limitations: No Limitations - History of Present Illness Initial Comments: Patient is 48 years old male with history of end stage renal disease on hemodialysis, dilated cardiomyopathy and hypertension. Patient presented to the ER complaining of shortness of breath and generalized body swelling. Patient missed his dialysis on and today. Patient oxygen saturation is in the upper 80s. Patient stated that he go to [facility]. Patient also complaining of chest pain and left-sided with no radiation. Patient denied any fever or chills. MD Complaint: shortness of breath - Related Data Previous Rx's Medication Instructions Recorded Last Taken Type Furosemide [Lasix TAB] 20 mg PO QDAY #30 tablet 10/29/18 12/10/18 Rx 20mg cloNIDine [Catapres] 0.2 mg PO BID #60 tablet 10/29/18 12/12/18 06:30 Rx 0.2mg Allergies Allergy/AdvReac Type Severity Reaction Status Date / Time labetalol Allergy Vomiting Verified 10/16/18 15:22 polystyrene sulfonate Allergy Unknown Verified 10/16/18 13:24 [From Kayexalate] tramadol [From Ultram] AdvReac Dizziness Verified 03/05/18 15:30 ED Review of Systems ROS: Stated complaint: MADDIE Other details as noted in HPI Comment: All other systems reviewed and negative Constitutional: denies: chills, fever Respiratory: shortness of breath, SOB with exertion Cardiovascular: denies: chest pain, palpitations Gastrointestinal: denies: abdominal pain, nausea, vomiting Musculoskeletal: denies: back pain ED Past Medical Hx - Past Medical History Hx Hypertension: Yes Hx CVA: No Hx Heart Attack/AMI: No Hx Congestive Heart Failure: Yes (diastolic - CHRONIC , CARDIOMYOPATHY) Hx Diabetes: No Hx Deep Vein Thrombosis: No Hx Pulmonary Embolism: No Hx GERD: No Hx Liver Disease: No Hx Renal Disease: Yes (HD TTS) Hx Sickle Cell Disease: No Hx Arthritis: No Hx Headaches / Migraines: No Hx Seizures: No Hx Kidney Stones: No Hx Psychiatric Treatment: No Hx Asthma: No Hx COPD: No Hx Tuberculosis: No Hx Dementia: No Hx HIV: No Additional medical history: Abdominal Hernias, right groin hernia, ascites - Surgical History Hx Coronary Stent: No Hx Open Heart Surgery: No Hx Pacemaker: No Hx Internal Defibrillator: No Hx Cholecystectomy: No Hx Appendectomy: No Hx Breast Surgery: No Additional Surgical History: dialysis access left arm, groin hernia repair, - Social History Smoking Status: Unknown if ever smoked Substance Use Type: Other - Medications Home Medications: Home Medications Medication Instructions Recorded Confirmed Last Taken Type Furosemide [Lasix TAB] 20 mg PO QDAY #30 tablet 10/29/18 12/12/18 12/10/18 Rx 20mg cloNIDine [Catapres] 0.2 mg PO BID #60 tablet 10/29/18 12/12/18 12/12/18 06:30 Rx 0.2mg ED Physical Exam - General Limitations: No Limitations General appearance: alert, in no apparent distress - Head Head exam: Present: atraumatic, normocephalic, normal inspection - Eye Eye exam: Present: normal appearance - ENT ENT exam: Present: normal exam, normal orophraynx, mucous membranes moist - Neck Neck exam: Present: normal inspection. Absent: tenderness, meningismus - Respiratory Respiratory exam: Present: rales, decreased breath sounds. Absent: respiratory distress, stridor - Cardiovascular Cardiovascular Exam: Present: bradycardia - GI/Abdominal GI/Abdominal exam: Present: soft, distended, normal bowel sounds. Absent: tenderness, guarding, rebound, rigid, mass, bruit, pulsatile mass, hernia - Extremities Exam Extremities exam: Present: pedal edema - Back Exam Back exam: Present: normal inspection. Absent: CVA tenderness (R), CVA tenderness (L) - Neurological Exam Neurological exam: Present: alert, oriented X3, CN II-XII intact, normal gait, reflexes normal ED Course Vital Signs 12/22/18 12/22/18 12/22/18 19:20 19:50 20:44 Temperature 97.8 F 98 F 98 F Pulse Rate 51 L 45 L 47 L Pulse Rate [ Bilateral] Respiratory 16 19 13 Rate Respiratory Rate [Bilateral ] Blood Pressure 157/98 Blood Pressure 144/74 144/74 [Right] O2 Sat by Pulse 96 94 97 Oximetry 12/22/18 12/22/18 21:03 21:06 Temperature Pulse Rate Pulse Rate [ 58 L Bilateral] Respiratory Rate Respiratory 24 Rate [Bilateral ] Blood Pressure Blood Pressure [Right] O2 Sat by Pulse 100 Oximetry ED Medical Decision Making - Lab Data Result diagrams: 12/22/18 19:49 12/22/18 19:49 - EKG Data Rate: bradycardia - EKG Data 12/22/18 20:49 Junctional rhythm, no ST elevation. - Radiology Data Radiology results: report reviewed - Medical Decision Making Patient is 48 years old male with history of end stage renal disease on hemodialysis, dilated cardiomyopathy and hypertension. Patient presented to the ER complaining of shortness of breath and generalized body swelling. Patient missed his dialysis on and today. Patient oxygen saturation is in the upper 80s. Patient stated that he go to [facility]. Patient also complaining of chest pain and left-sided with no radiation. Patient denied any fever or chills. Found to have a potassium of 7.5. Patient received calcium chloride 1 g IV, dextrose 50 and insulin 5 units. Patient also received albuterol 5 mg via nebulizer. I discussed the patient is Dr. Vazquez, it service delivery manager, he stated that he is ordering emergency dialysis order. I Discussed the patient with Dr. Karen Velasco, she agreed to admit the patient to medical service. Critical Care Time: Yes Critical care time in (mins) excluding proc time.: 30 Critical care attestation.: If time is entered above; I have spent that time in minutes in the direct care of this critically ill patient, excluding procedure time. ED Disposition Clinical Impression: Acute hyperkalemia, Volume overload Disposition: OP ADMIT IP TO THIS HOSP Is pt being admited?: Yes Condition: Stable
[2018-12-22] MEDS ORDERED: CALCIUM CHLORIDE 1,000 MG in NACL 0.9% 100 ML IV ONE (21:00)
[2018-12-22 21:04] LABS: Chol/HDL Ratio 2.68 %; HDL Cholesterol 44 mg/dL (40-59); LDL Cholesterol,Direct 69 mg/dL (50-130)
[2018-12-22] MEDS ORDERED: ZOFRAN IV ONE (21:25)
[2018-12-22] MEDS ORDERED: MORPHINE IV ONE (21:25)
[2018-12-22] MEDS ORDERED: MORPHINE ONE (21:26)
[2018-12-22] MEDS ORDERED: ZOFRAN ONE (21:27)
--- NOTE | 2018-12-22 22:12 | History and Physical Report ---
History of Present Illness Date of examination: 12/22/18 History of present illness: 48-year-old man with a history of polycystic kidney disease, hypertension, recurrent ascites ,end-stage renal disease and dialysis comes emergency room with complaints of shortness of breath and chest pain. He missed dialysis yesterday. Chest pain is in the epigastric area, sharp pain, intermittent, mostly with cough and walking, intensity 5/10, no radiation. Denies nausea, no diaphoresis, palpitation FAMILY HISTORY: Hypertension Review Of Systems: Constitutional: no Fever, no weight loss Ears, eyes, nose, mouth and throat: no nasal congestion, no nasal discharge, no sinus pressure, blurry vision, diplopia Neck: No neck pain or rigidity. Cardiovascular: orthopnea, palpitations Respiratory: No cough Gastrointestinal: abdominal pain, hematochezia Genitourinary : no dysuria, frequency Musculoskeletal: no muscle ache Integumentary: no rash, no pruritis Neurological: no parathesias, focal weakness Endocrine: no cold or heat intolerance, no polyuria or polydipsia Hematologic/Lymphatic: no easy bruising, no easy bleeding, no gland swelling Allergic/Immunologic: no urticaria, no angioedema. PAST MEDICAL HISTORY:polycystic kidney disease, hypertension, end-stage renal disease, recurrent ascites PAST SURGICAL HISTORY: AV fistula, hernia repair FAMILY HISTORY: hypertension SOCIAL HISTORY: Denies alcohol, tobacco, drug Medications and Allergies Allergies Allergy/AdvReac Type Severity Reaction Status Date / Time labetalol Allergy Vomiting Verified 10/16/18 15:22 polystyrene sulfonate Allergy Unknown Verified 10/16/18 13:24 [From Kayexalate] tramadol [From Ultram] AdvReac Dizziness Verified 03/05/18 15:30 Home Medications Medication Instructions Recorded Confirmed Last Taken Type cloNIDine [Catapres] 0.2 mg PO BID #60 tablet 10/29/18 12/22/18 12/12/18 06:30 Rx 0.2mg oxyCODONE [roxiCODONE] 5 mg PO Q6HR PRN 12/22/18 12/22/18 Unknown History Exam - Physical Exam Narrative exam: General Apperance: The patient lying in bed, breathing comfortable HEENT: Normocephalic, atraumatic. Pupils equally round and reactive to light, EOMI, no sclericterus or JVD or thyromegaly or nodule. , no carotid bruit, mucous membranes moist, no exudate or erythema Heart: S1-S2, regular is rhythm Lungs: Clear to auscultation bilaterally, breathing comfortable Abdomen: Positive bowel sounds, soft, +ascites, nontender, difficult to assess for organomegaly Extremities: + edema up to knees, no cyanosis clubbing Skin: no rash, nodule, warm and dry Neuro: cranial nerves 2-12 intact, speech is fluent, motor/sensory intact - Constitutional Vitals: Temp Pulse Resp BP Pulse Ox 98 F 58 L 16 144/74 100 12/22/18 20:44 12/22/18 21:03 12/22/18 21:31 12/22/18 20:44 12/22/18 21:06 Results - Labs CBC & Chem 7: 12/22/18 19:49 12/22/18 19:49 Labs: Abnormal lab results 12/22/18 12/22/18 12/22/18 Range/Units 19:49 19:49 20:06 RBC 3.29 L (3.65-5.03) M/mm3 Hgb 10.1 L (11.8-15.2) gm/dl Hct 31.3 L (35.5-45.6) % MCV 95 H (84-94) fl RDW 17.0 H (13.2-15.2) % Florence % (Auto) 15.6 H (0.0-7.3) % Lymph # 1.1 L (1.2-5.4) K/mm3 Florence # 0.9 H (0.0-0.8) K/mm3 PT 18.3 H (12.2-14.9) Sec. INR 1.56 H (0.87-1.13) APTT 53.1 H (24.2-36.6) Sec. Sodium 136 L (137-145) mmol/L Potassium 7.5 H* (3.6-5.0) mmol/L Chloride 95.3 L (98-107) mmol/L Carbon Dioxide 17 L (22-30) mmol/L BUN 105 H (9-20) mg/dL Creatinine 15.5 H (0.8-1.5) mg/dL Troponin T (0.00-0.029) ng/mL NT-Pro-B Natriuret Pep (0-450) pg/mL Albumin 3.4 L (3.9-5) g/dL 12/22/18 Range/Units 20:06 RBC (3.65-5.03) M/mm3 Hgb (11.8-15.2) gm/dl Hct (35.5-45.6) % MCV (84-94) fl RDW (13.2-15.2) % Florence % (Auto) (0.0-7.3) % Lymph # (1.2-5.4) K/mm3 Florence # (0.0-0.8) K/mm3 PT (12.2-14.9) Sec. INR (0.87-1.13) APTT (24.2-36.6) Sec. Sodium (137-145) mmol/L Potassium (3.6-5.0) mmol/L Chloride (98-107) mmol/L Carbon Dioxide (22-30) mmol/L BUN (9-20) mg/dL Creatinine (0.8-1.5) mg/dL Troponin T 0.887 H* (0.00-0.029) ng/mL NT-Pro-B Natriuret Pep > 56085 H (0-450) pg/mL Albumin (3.9-5) g/dL - Imaging and Cardiology EKG: image reviewed Chest x-ray: report reviewed Assessment and Plan Assessment Fluid Overload, need HD Chest pain Hyperkalemia Hypertension ESRD Polycystic kidney disease Plan Admit to medicine Give cocktail for hyperkalemia Renal was consulted for urgent dialysis Check cardiac enzymes, stress test DVT prophylaxis
[2018-12-22] MEDS ORDERED: SODIUM CHLORIDE FLUSH SYRINGE 10 ML IV PRN (22:33)
[2018-12-22] MEDS ORDERED: ZOFRAN IV PRN (22:33)
[2018-12-22] MEDS ORDERED: TYLENOL PO PRN (22:33)
[2018-12-22] MEDS ORDERED: APRESOLINE IV PRN (22:34)
[2018-12-22] MEDS ORDERED: NACL 0.9% 100 ML IV PRN (23:03)
[2018-12-22] MEDS ORDERED: PROCRIT IV PRN (23:24)
[2018-12-23 00:19] LABS: Creatine Kinase MB 28.6 ng/mL (0.0-4.0)
[2018-12-23] MEDS: MORPHINE IV PRN ×3 (03:25→22:45)
[2018-12-23 03:50] LABS: Hepatitis C Virus Antibody Non-Reactive (NonReactive)
[2018-12-23 04:16] LABS: Hepatitis B Surface Antigen Non-Reactive (Negative)
[2018-12-23 05:46] LABS: Hematocrit 29.1 % (35.5-45.6); Hemoglobin 9.8 gm/dl (11.8-15.2); Mean Corpuscular HGB Conc 34 % (32-34); Mean Corpuscular Volume 94 fl (84-94); Platelet Count 184 K/mm3 (140-440)
[2018-12-23 06:03] LABS: Calcium 8.8 mg/dL (8.4-10.2)
[2018-12-23 06:34] LABS: Anisocytosis 1+; Basophils % (Manual) 0 % (0.0-1.8); Total Cells Counted 100
[2018-12-23 06:35] LABS: Platelet Estimate Consistent w Auto
[2018-12-23] MEDS: LOVENOX SUB-Q SCH (10:32)
[2018-12-23] MEDS: SODIUM CHLORIDE FLUSH SYRINGE 10 ML IV SCH ×2 (10:33→22:46)
--- NOTE | 2018-12-23 10:53 | Progress Note ---
Assessment and Plan Assessment and plan: 48-year-old man with a history of Polycystic kidney disease, hypertension, recurrent ascites ,end-stage renal disease and dialysis comes emergency room with complaints of shortness of breath and chest pain. He missed dialysis yesterday. Chest pain is in the epigastric area, sharp pain, intermittent, most ly with cough and walking, intensity 5/10, no radiation. Denies nausea, no diaphoresis, palpitation Acute on Chronic Systolic HF with exacerbation secondary Fluid Overload, need HD Cardiomyopathy EF 35-40% SEVRELY DIALATED LEFT ATRIUM -ECHO 03/05/1018 Chest pain pleuritic in nature Hyperkalemia- Corrected Hypertension URGENCY TYPE 2 ME secondary to ESRD ESRD Anemia of chronic renal disease. Polycystic kidney disease Plan Continue supportive care Patient reports improvement in symptoms we'll consult cardiology for evaluation he reports he had a stress test but I do not see it on the record. Continue BP control Continue insulin and Accu-Cheks before meals and at bedtime Give cocktail for hyperkalemia Renal was consulted for urgent dialysis Check cardiac enzymes, stress test DVT prophylaxis History Interval history: Patients seen and examined this morning distress reports improvement in symptoms. Patient had a stress test in the last few months. Denies any further chest pain or pressure. Hospitalist Physical - Physical exam Narrative exam: General Appearance: The patient lying in bed, breathing comfortable HEENT: Normocephalic, atraumatic. Pupils equally round and reactive to light, EOMI, no sclericterus or JVD or thyromegaly or nodule. no carotid bruit, mucous membranes moist, no exudate or erythema Heart: S1-S2, regular is rhythm Lungs: Clear to auscultation bilaterally, breathing comfortable Abdomen: Positive bowel sounds, soft, +Ascites, nontender, difficult to assess for organomegaly Extremities: + 2 edema up to knees, no cyanosis clubbing Skin: no rash, nodule, warm and dry Neuro: cranial nerves 2-12 intact, speech is fluent, motor/sensory intact - Constitutional Vitals: Temp Pulse Resp BP Pulse Ox 97.6 F 52 L 18 159/83 97 12/23/18 07:39 12/23/18 07:39 12/23/18 07:39 12/23/18 07:39 12/23/18 07:52 Results - Labs CBC & Chem 7: 12/23/18 04:18 12/23/18 04:18 Labs: Laboratory Last Values WBC 5.5 K/mm3 (4.5-11.0) 12/23/18 04:18 RBC 3.10 M/mm3 (3.65-5.03) L 12/23/18 04:18 Hgb 9.8 gm/dl (11.8-15.2) L 12/23/18 04:18 Hct 29.1 % (35.5-45.6) L 12/23/18 04:18 MCV 94 fl (84-94) 12/23/18 04:18 MCH 32 pg (28-32) 12/23/18 04:18 MCHC 34 % (32-34) 12/23/18 04:18 RDW 17.0 % (13.2-15.2) H 12/23/18 04:18 Plt Count 184 K/mm3 (140-440) 12/23/18 04:18 Lymph % (Auto) 17.5 % (13.4-35.0) 12/22/18 19:49 Scurry % (Auto) Crutch Maker 12/23/18 04:18 Eos % (Auto) 1.9 % (0.0-4.3) 12/22/18 19:49 Baso % (Auto) 1.0 % (0.0-1.8) 12/22/18 19:49 Lymph # 1.1 K/mm3 (1.2-5.4) L 12/22/18 19:49 [place]urry # 0.9 K/mm3 (0.0-0.8) H 12/22/18 19:49 Eos # 0.1 K/mm3 (0.0-0.4) 12/22/18 19:49 Baso # 0.1 K/mm3 (0.0-0.1) 12/22/18 19:49 Add Manual Diff Complete 12/23/18 04:18 Total Counted 100 12/23/18 04:18 Seg Neutrophils % 64.0 % (40.0-70.0) 12/22/18 19:49 Seg Neuts % (Manual) 71.0 % (40.0-70.0) H 12/23/18 04:18 0 % 12/23/18 04:18 17.0 % (13.4-35.0) 12/23/18 04:18 Reactive Lymphs % (Man) 0 % 12/23/18 04:18 10.0 % (0.0-7.3) H 12/23/18 04:18 2.0 % (0.0-4.3) 12/23/18 04:18 0 % (0.0-1.8) 12/23/18 04:18 0 % 12/23/18 04:18 0 % 12/23/18 04:18 0 % 12/23/18 04:18 0 % 12/23/18 04:18 Nucleated RBC % Not Reportable 12/23/18 04:18 Seg Neutrophils # 3.9 K/mm3 (1.8-7.7) 12/22/18 19:49 Seg Neutrophils # Man 3.9 K/mm3 (1.8-7.7) 12/23/18 04:18 Band Neutrophils # 0.0 K/mm3 12/23/18 04:18 0.9 K/mm3 (1.2-5.4) L 12/23/18 04:18 Abs React Lymphs (Man) 0.0 K/mm3 12/23/18 04:18 0.6 K/mm3 (0.0-0.8) 12/23/18 04:18 0.1 K/mm3 (0.0-0.4) 12/23/18 04:18 0.0 K/mm3 (0.0-0.1) 12/23/18 04:18 0.0 K/mm3 12/23/18 04:18 0.0 K/mm3 12/23/18 04:18 0.0 K/mm3 12/23/18 04:18 Blast Cells # 0.0 K/mm3 12/23/18 04:18 WBC Morphology Not Reportable 12/23/18 04:18 Hypersegmented Neuts Not Reportable 12/23/18 04:18 Hyposegmented Neuts Not Reportable 12/23/18 04:18 Hypogranular Neuts Not Reportable 12/23/18 04:18 Not Reportable 12/23/18 04:18 Not Reportable 12/23/18 04:18 Not Reportable 12/23/18 04:18 Not Reportable 12/23/18 04:18 Not Reportable 12/23/18 04:18 Not Reportable 12/23/18 04:18 Consistent w auto 12/23/18 04:18 Not Reportable 12/23/18 04:18 Plt Clumps, EDTA Not Reportable 12/23/18 04:18 Not Reportable 12/23/18 04:18 Not Reportable 12/23/18 04:18 Not Reportable 12/23/18 04:18 Plt Morphology Comment Not Reportable 12/23/18 04:18 RBC Morphology Not Reportable 12/23/18 04:18 Dimorphic RBCs Not Reportable 12/23/18 04:18 Not Reportable 12/23/18 04:18 Not Reportable 12/23/18 04:18 Not Reportable 12/23/18 04:18 1+ 12/23/18 04:18 Not Reportable 12/23/18 04:18 Not Reportable 12/23/18 04:18 Not Reportable 12/23/18 04:18 Not Reportable 12/23/18 04:18 Not Reportable 12/23/18 04:18 Not Reportable 12/23/18 04:18 Not Reportable 12/23/18 04:18 Not Reportable 12/23/18 04:18 Not Reportable 12/23/18 04:18 Not Reportable 12/23/18 04:18 Not Reportable 12/23/18 04:18 Not Reportable 12/23/18 04:18 Not Reportable 12/23/18 04:18 Not Reportable 12/23/18 04:18 Not Reportable 12/23/18 04:18 Acanthocytes (Spur) Not Reportable 12/23/18 04:18 Rouleaux Not Reportable 12/23/18 04:18 Not Reportable 12/23/18 04:18 Not Reportable 12/23/18 04:18 Not Reportable 12/23/18 04:18 Not Reportable 12/23/18 04:18 Hem Pathologist Commnt No 12/23/18 04:18 PT 18.3 Sec. (12.2-14.9) H 12/22/18 20:06 INR 1.56 (0.87-1.13) H 12/22/18 20:06 APTT 53.1 Sec. (24.2-36.6) H 12/22/18 20:06 Sodium 139 mmol/L (137-145) 12/23/18 04:18 Potassium 4.8 mmol/L (3.6-5.0) D 12/23/18 04:18 Chloride 95.7 mmol/L (98-107) L 12/23/18 04:18 Carbon Dioxide 25 mmol/L (22-30) D 12/23/18 04:18 23 mmol/L 12/23/18 04:18 BUN 65 mg/dL (9-20) H 12/23/18 04:18 10.7 mg/dL (0.8-1.5) H 12/23/18 04:18 Estimated GFR 6 ml/min 12/23/18 04:18 6 % 12/23/18 04:18 Glucose 109 mg/dL (75-100) H 12/23/18 04:18 Calcium 8.8 mg/dL (8.4-10.2) 12/23/18 04:18 0.60 mg/dL (0.1-1.2) 12/22/18 19:49 AST 16 units/L (5-40) 12/22/18 19:49 ALT 13 units/L (7-56) 12/22/18 19:49 64 units/L (35-129) 12/22/18 19:49 1224 units/L (55-170) H 12/23/18 04:18 CK-MB (CK-2) 28.0 ng/mL (0.0-4.0) H 12/23/18 04:18 CK-MB (CK-2) Rel Index 2.2 (0-4) 12/23/18 04:18 1.050 ng/mL (0.00-0.029) H* 12/23/18 04:18 NT-Pro-B Natriuret Pep > 13895 pg/mL (0-450) H 12/22/18 20:06 7.1 g/dL (6.3-8.2) 12/22/18 19:49 3.4 g/dL (3.9-5) L 12/22/18 19:49 0.9 % 12/22/18 19:49 Triglycerides 51 mg/dL (2-149) 12/22/18 20:06 Cholesterol 118 mg/dL (50-199) 12/22/18 20:06 69 mg/dL (50-130) 12/22/18 20:06 44 mg/dL (40-59) 12/22/18 20:06 2.68 % 12/22/18 20:06 Hepatitis A IgM Ab Non-reactive (NonReactive) 12/23/18 02:05 Hep Bs Antigen Non-reactive (Negative) 12/23/18 02:05 Hep B Core IgM Ab Non-reactive (NonReactive) 12/23/18 02:05 Non-reactive (NonReactive) 12/23/18 02:05 Active Medications - Current Medications Current Medications: Generic Name Dose Route Start Last Admin Trade Name Freq PRN Reason Stop Dose Admin Acetaminophen 650 mg 12/22/18 22:33 Tylenol PO Q4H PRN Pain MILD(1-3)/Fever >100.5/SWAIN Enoxaparin Sodium 30 mg 12/23/18 10:00 12/23/18 10:32 Lovenox SUB-Q 30 mg QDAY FOSTER Administration Epoetin Bravo 10,000 unit 12/22/18 23:24 Procrit IV JULIA PRN for Hgb of less than 11 Hydralazine HCl 5 mg 12/22/18 22:34 Apresoline IV Q6H PRN Hypertension Sodium Chloride 100 mls @ 999 mls/hr 12/22/18 23:03 Nacl 0.9% IV JULIA PRN Hypotension Morphine Sulfate 2 mg 12/22/18 22:33 12/23/18 10:34 Morphine IV 2 mg Q4H PRN Administration Pain, Moderate (4-6) Ondansetron HCl 4 mg 12/22/18 22:33 Zofran IV Q8H PRN Nausea And Vomiting Sodium Chloride 10 ml 12/23/18 10:00 12/23/18 10:33 Sodium Chloride Flush Syringe 10 Ml IV 10 ml BID FOSTER Administration Sodium Chloride 10 ml 12/22/18 22:33 12/23/18 03:27 Sodium Chloride Flush Syringe 10 Ml IV 10 ml PRN PRN Administration LINE FLUSH
[2018-12-23] MEDS: CATAPRES PO SCH ×2 (12:59→22:46)
[2018-12-23] MEDS ORDERED: APRESOLINE IV PRN (13:50)
[2018-12-23] MEDS ORDERED: NACL 0.9% 100 ML IV PRN (14:24)
--- NOTE | 2018-12-23 14:30 | Consultation ---
History of Present Illness - Reason for Consult Consult date: 12/23/18 end stage renal disease Requesting physician: ANALISA VIVEROS - History of Present Illness 48-year-old male with a history of autosomal dominant polycystic kidney disease and end-stage renal disease on hemodialysis on a Monday, and Monday schedule. Patient dialyzes at [facility]. Unfortunately he comes to this hospital for hospitalizations. He has had frequent hospitalizations for fluid overload/ascites/ accelerated hypertension/hyperkalemia usually related to noncompliance to dialysis regimen/sodium/fluid restriction. Patient said he had paracentesis on Monday and had 3.5 L removed. He did not go to dialysis on because he had surgery to his legs- vascular surgeon in his legs. He didn't go to dialysis again on Monday and came to the hospital because of shortness of breath and left-sided chest pain. Describes it as a left-sided chest pressure which was worse with coughing. Cough is not productive. No hemoptysis or wheezing. No fever or chills of other constitutional symptoms. Because of progressively worsening symptoms, the was patient was brought into the hospital for further evaluation. Past History Past Medical History: anemia, ESRD, hypertension, other Past Surgical History: hernia repair (Paracentesis, Left upper extremity AV graft), Other Social history: lives with family ( and children). denies: smoking, alcohol abuse, prescription drug abuse, IV drug use Family history: other (mother had anxiety disorder, one brother of meningitis. He never met his father) Medications and Allergies Allergies Allergy/AdvReac Type Severity Reaction Status Date / Time labetalol Allergy Vomiting Verified 10/16/18 15:22 polystyrene sulfonate Allergy Unknown Verified 10/16/18 13:24 [From Kayexalate] tramadol [From Ultram] AdvReac Dizziness Verified 03/05/18 15:30 Home Medications Medication Instructions Recorded Confirmed Last Taken Type cloNIDine [Catapres] 0.2 mg PO BID #60 tablet 10/29/18 12/22/18 12/12/18 06:30 Rx 0.2mg oxyCODONE [roxiCODONE] 5 mg PO Q6HR PRN 12/22/18 12/22/18 Unknown History Active Meds: Active Medications Acetaminophen (Tylenol) 650 mg PO Q4H PRN PRN Reason: Pain MILD(1-3)/Fever >100.5/SWAIN Clonidine HCl (Catapres) 0.2 mg PO BID [facility] Last Admin: 12/23/18 12:59 Dose: 0.2 mg Documented by: Enoxaparin Sodium (Lovenox) 30 mg SUB-Q QDAY [facility] Last Admin: 12/23/18 10:32 Dose: 30 mg Documented by: Epoetin Bravo (Procrit) 10,000 unit IV JULIA PRN PRN Reason: for Hgb of less than 11 Hydralazine HCl (Apresoline) 10 mg IV Q6H PRN PRN Reason: Hypertension Sodium Chloride (Nacl 0.9%) 100 mls @ 999 mls/hr IV JULIA PRN PRN Reason: Hypotension Morphine Sulfate (Morphine) 2 mg IV Q4H PRN PRN Reason: Pain, Moderate (4-6) Last Admin: 12/23/18 10:34 Dose: 2 mg Documented by: Ondansetron HCl (Zofran) 4 mg IV Q8H PRN PRN Reason: Nausea And Vomiting Oxycodone HCl (Roxicodone) 5 mg PO Q6H PRN PRN Reason: Pain, moderate to severe Sodium Chloride (Sodium Chloride Flush Syringe 10 Ml) 10 ml IV BID [facility] Last Admin: 12/23/18 10:33 Dose: 10 ml Documented by: Sodium Chloride (Sodium Chloride Flush Syringe 10 Ml) 10 ml IV PRN PRN PRN Reason: LINE FLUSH Last Admin: 12/23/18 03:27 Dose: 10 ml Documented by: Review of Systems All systems: negative (Constitutional: no fever or chills. No anorexia or weight loss. HEENT: Has sore throat , no sinus drainage no hearing or vision impairment . Cardiovascular: Admits to chest pain, No shortness of breath, palpitations, lower extremity swelling or dizziness. Respiratory: Admits to cough, Nosputum, shortness of breath, hemoptysis or wheezing. Gastrointestinal: Admits to nausea, Ni vomiting, diarrhea, abdominal pain, hematemesis or melena. Genitourinary: Makes little urine. No frequency urgency dysuria or hematuria. hematologic: No abnormal bleeding or bruising. Integumentary: Admits to pruritus No rash. Neurological: No headache no focal weakness or numbness, no syncope or seizures. Musculoskeletal: No joint pains no stiffness. Psychiatry: no anxiety or depression) Exam - Vital Signs Vital signs: Vital Signs Temp Pulse Resp BP Pulse Ox 97.8 F 51 L 16 157/98 96 12/22/18 19:20 12/22/18 19:20 12/22/18 19:20 12/22/18 19:20 12/22/18 19:20 - Physical Exam Narrative exam: Middle-aged -[place] male lying in bed in no acute distress HEENT: NCAT, pink oral mucous membrane Neck: Supple, no venous distention CVS: S1S2 RRR with no murmur, rub or gallop Chest: Clear to auscultation, decreased in LZ Abdomen: Distended, soft, nontender, no organomegaly, bowel sounds are present Extremities: 2-3+ edema, thickening of skin Neuro: Awake, alert no focal deficits Results - Lab Results 12/23/18 04:18 12/23/18 04:18 Most recent lab results Calcium 8.8 mg/dL (8.4-10.2) 12/23/18 04:18 Assessment and Plan - Patient Problems (1) Fluid overload Current Visit: Yes Status: Chronic Plan to address problem: Stat Hemodialysis yesterday. Would dialyze again today but Patient refuses. Will dede isolated UFR (2) Ascites Current Visit: No Status: Acute Plan to address problem: Patient just had paracentesis last week. Follow-up (3) Chest pain Current Visit: No Status: Acute Qualifiers: Chest pain type: unspecified Qualified Code(s): R07.9 - Chest pain, unspecified Plan to address problem: Management by primary attending (4) End-stage renal disease needing dialysis Current Visit: No Status: Acute Plan to address problem: Patient received dialysis yesterday. We'll dialyze again today but patient is refusing. Hemodialysis again tomorrow -isolated ultrafiltration (5) Hyperkalemia Current Visit: No Status: Acute Plan to address problem: Potassium improved with dialysis (6) Metabolic acidosis Current Visit: No Status: Acute Plan to address problem: Improved with dialysis. (7) Hypertensive chronic kidney disease with stage 5 chronic kidney disease or end stage renal disease Current Visit: No Status: Chronic Plan to address problem: Follow blood pressure with fluid removal on dialysis (8) Anemia in chronic kidney disease Current Visit: No Status: Acute Plan to address problem: Epogen on Dialysis
[2018-12-24] MEDS: MORPHINE IV PRN ×2 (04:09→09:21)
[2018-12-24] MEDS ORDERED: LEXISCAN IV ONE ×2 (07:05→08:56)
[2018-12-24] MEDS: CATAPRES PO SCH ×2 (09:20→21:02)
[2018-12-24] MEDS: LOVENOX SUB-Q SCH (09:22)
[2018-12-24] MEDS: SODIUM CHLORIDE FLUSH SYRINGE 10 ML IV SCH ×2 (09:23→21:03)
--- NOTE | 2018-12-24 11:35 | Consultation ---
History of Present Illness Consult date: 12/24/18 Consult reason: congestive heart failure History of present illness: Patient is a 48-year old man with polycystic kidney disease, end-stage renal disease on hemodialysis and chronic ascites requiring frequent paracentesis. He has chronic systolic heart failure, non-ischemic cardiomyopathy by non-invasive cardiac stress thallium test within the last year that documents a normal perfusion scan but a decreased left ventricular systolic function with an ejection fraction 30-35% by echocardiogram. Patient also has a history of hypothyroidism, chronic hypertension and noncompliance with fluid and dietary indiscretions. Patient is admitted with uncontrolled hypertension, volume overload, heart failure and worsening ascites. Symptoms associated to missed dialysis treatments. Initial labs revealed severe hyperkalemia, potassium at 7.5. ECG on presentation was a junctional rhythm, associated with severe hyperkalemia 7.5. Following dialysis and correction of the hyperkalemia, a repeat ECG is sinus rhythm. No acute ischemic changes. Past History Past Medical History: anemia, ESRD, hypertension, other Past Surgical History: hernia repair (Paracentesis, Left upper extremity AV graft), Other Social history: lives with family ( and children). denies: smoking, alcohol abuse, prescription drug abuse, IV drug use Family history: other (mother had anxiety disorder, one brother of meningitis. He never met his father) Medications and Allergies Allergies Allergy/AdvReac Type Severity Reaction Status Date / Time labetalol Allergy Vomiting Verified 10/16/18 15:22 polystyrene sulfonate Allergy Unknown Verified 10/16/18 13:24 [From Kayexalate] tramadol [From Ultram] AdvReac Dizziness Verified 03/05/18 15:30 Home Medications Medication Instructions Recorded Confirmed Last Taken Type cloNIDine [Catapres] 0.2 mg PO BID #60 tablet 10/29/18 12/22/18 12/12/18 06:30 Rx 0.2mg oxyCODONE [roxiCODONE] 5 mg PO Q6HR PRN 12/22/18 12/22/18 Unknown History Active Meds: Active Medications Acetaminophen (Tylenol) 650 mg PO Q4H PRN PRN Reason: Pain MILD(1-3)/Fever >100.5/SWAIN Clonidine HCl (Catapres) 0.2 mg PO BID [facility] Last Admin: 12/24/18 09:20 Dose: 0.2 mg Documented by: Enoxaparin Sodium (Lovenox) 30 mg SUB-Q QDAY [facility] Last Admin: 12/24/18 09:22 Dose: 30 mg Documented by: Epoetin Bravo (Procrit) 10,000 unit IV JULIA PRN PRN Reason: for Hgb of less than 11 Hydralazine HCl (Apresoline) 10 mg IV Q6H PRN PRN Reason: Hypertension Sodium Chloride (Nacl 0.9%) 100 mls @ 999 mls/hr IV JULIA PRN PRN Reason: Hypotension Morphine Sulfate (Morphine) 2 mg IV Q4H PRN PRN Reason: Pain, Moderate (4-6) Last Admin: 12/24/18 09:21 Dose: 2 mg Documented by: Ondansetron HCl (Zofran) 4 mg IV Q8H PRN PRN Reason: Nausea And Vomiting Last Admin: 12/24/18 09:22 Dose: 4 mg Documented by: Oxycodone HCl (Roxicodone) 5 mg PO Q6H PRN PRN Reason: Pain, moderate to severe Sodium Chloride (Sodium Chloride Flush Syringe 10 Ml) 10 ml IV BID [facility] Last Admin: 12/24/18 09:23 Dose: 10 ml Documented by: Sodium Chloride (Sodium Chloride Flush Syringe 10 Ml) 10 ml IV PRN PRN PRN Reason: LINE FLUSH Last Admin: 12/23/18 03:27 Dose: 10 ml Documented by: Physical Examination Vital Signs Temp Pulse Resp BP Pulse Ox 97.8 F 51 L 16 157/98 96 12/22/18 19:20 12/22/18 19:20 12/22/18 19:20 12/22/18 19:20 12/22/18 19:20 General appearance: no acute distress HEENT: Positive: PERRL Cardiac: Positive: Reg Rate and Rhythm Lungs: Positive: Decreased Breath Sounds Neuro: Positive: Grossly Intact Abdomen: Positive: Ascites Extremities: Present: edema Results 12/23/18 04:18 12/23/18 04:18 Assessment and Plan Volume overload Hyperkalemia -corrected following dialysis Chronic Ascites Enlarged Polycystic Kidneys End-stage renal disease on hemodialysis Chronic systolic heart failure Nonischemic Cardiomyopathy EF 35-40% by echo 02/2018 no ischemia on MPI 12/2017 Hypertension Hypothyroidism Noncompliance Recommendations: Fluid/sodium restriction. Dialysis for fluid removal. Medical therapy for chronic systolic heart failure and nonischemic cardiomyopathy.
[2018-12-24] MEDS ORDERED: TRIPLE ANTIBIOTIC TP ONE (13:00)
--- NOTE | 2018-12-24 14:05 | Progress Note ---
Assessment and Plan - Patient Problems (1) ESRD (end stage renal disease) Current Visit: No Status: Acute Plan to address problem: We'll maintain on a Monday inpatient hemodialysis session. We'll continue to recommend extra dialysis sessions for isolated ultrafiltration. (2) Fluid overload Current Visit: Yes Status: Chronic Plan to address problem: Patient is chronically volume overloaded with a significant 2-3+ pitting edema and anasarca. Despite this he is convinced that he is at his dry weight. He refused dialysis today and is refusing any extra dialysis sessions other than his Monday schedule. We'll continue to monitor and follow- up. Discussed importance of fluid restrictions and low sodium diet. (3) Hypertensive chronic kidney disease with stage 5 chronic kidney disease or end stage renal disease Current Visit: Yes Status: Acute Plan to address problem: Continue current regimen. I discussed the patient that likely he has a significant volume overload component to his blood pressure control. He is still not agreeable to extra dialysis sessions for ultrafiltration to maintain a euvolemic state. (4) Hyperkalemia Current Visit: Yes Status: Acute Plan to address problem: Resolved with hemodialysis session on Monday. Discussed importance of low potassium diet. (5) Ascites Current Visit: Yes Status: Acute Plan to address problem: Status post paracentesis about one week ago. We'll follow-up. (6) Chest pain Current Visit: Yes Status: Acute Plan to address problem: Management per primary attending. No acute complaints this afternoon. (7) Anemia in chronic kidney disease, on chronic dialysis Current Visit: Yes Status: Chronic Plan to address problem: Epogen with hemodialysis sessions. Subjective Date of service: 12/24/18 Interval history: Patient refused hemodialysis this morning. I was called by the hemodialysis nursing staff. Objective - Vital Signs Vital signs: Vital Signs - 12hr 12/24/18 12/24/18 12/24/18 04:00 04:01 04:41 Temperature 97.5 F L Pulse Rate 69 53 L Respiratory 20 Rate Blood Pressure 215/111 O2 Sat by Pulse 95 Oximetry 12/24/18 12/24/18 12/24/18 06:00 08:09 09:20 Temperature 99.0 F Pulse Rate 71 71 Respiratory 18 Rate Blood Pressure 215/97 230/93 230/93 O2 Sat by Pulse 95 Oximetry 12/24/18 11:26 Temperature Pulse Rate Respiratory Rate Blood Pressure 164/83 O2 Sat by Pulse Oximetry - General Appearance General appearance: well-developed, well-nourished, appears stated age, obese EENT: ATNC, PERRL Neck: no thyromegaly Respiratory: Present: Decreased Breath Sounds Cardiology: regular, S1S2 Gastrointestinal: normal, normoactive bowel sounds Integumentary: hyperpigmentation Neurologic: no focal deficit, no asterixis, alert and oriented x3 Musculoskeletal: other (2-3+ edema) Psychiatric: mood/affect appropriate, cooperative - Lab 12/23/18 04:18 12/23/18 04:18 Most recent lab results Calcium 8.8 mg/dL (8.4-10.2) 12/23/18 04:18 - Allied health notes Allied health notes reviewed: nursing Medications & Allergies - Medications Allergies/Adverse Reactions: Allergies labetalol Allergy (Verified 10/16/18 15:22) Vomiting pt also reports drastic drop in HR polystyrene sulfonate [From Kayexalate] Allergy (Verified 10/16/18 13:24) Unknown tramadol [From Ultram] Adverse Reaction (Verified 03/05/18 15:30) Dizziness Home Medications: Home Medications Medication Instructions Recorded Confirmed Last Taken Type cloNIDine [Catapres] 0.2 mg PO BID #60 tablet 10/29/18 12/22/18 12/12/18 06:30 Rx 0.2mg oxyCODONE [roxiCODONE] 5 mg PO Q6HR PRN 12/22/18 12/22/18 Unknown History Active Medications: Generic Name Dose Route Start Last Admin Trade Name Pinoq PRN Reason Stop Dose Admin Acetaminophen 650 mg 12/22/18 22:33 Tylenol PO Q4H PRN Pain MILD(1-3)/Fever >100.5/SWAIN Clonidine HCl 0.2 mg 12/23/18 12:00 12/24/18 09:20 Catapres PO 0.2 mg BID [facility] Administration Enoxaparin Sodium 30 mg 12/23/18 10:00 12/24/18 09:22 Lovenox SUB-Q 30 mg QDAY [facility] Administration Epoetin Bravo 10,000 unit 12/22/18 23:24 Procrit IV JULIA PRN for Hgb of less than 11 Hydralazine HCl 10 mg 12/23/18 13:50 Apresoline IV Q6H PRN Hypertension Sodium Chloride 100 mls @ 999 mls/hr 12/23/18 14:24 Nacl 0.9% IV JULIA PRN Hypotension Morphine Sulfate 2 mg 12/22/18 22:33 12/24/18 09:21 Morphine IV 2 mg Q4H PRN Administration Pain, Moderate (4-6) Ondansetron HCl 4 mg 12/22/18 22:33 12/24/18 09:22 Zofran IV 4 mg Q8H PRN Administration Nausea And Vomiting Oxycodone HCl 5 mg 12/23/18 10:56 Roxicodone PO Q6H PRN Pain, moderate to severe Sodium Chloride 10 ml 12/23/18 10:00 12/24/18 09:23 Sodium Chloride Flush Syringe 10 Ml IV 10 ml BID [facility] Administration Sodium Chloride 10 ml 12/22/18 22:33 12/23/18 03:27 Sodium Chloride Flush Syringe 10 Ml IV 10 ml PRN PRN Administration LINE FLUSH
[2018-12-24] MEDS: ROXICODONE PO PRN ×2 (14:08→21:02)
[2018-12-24] MEDS ORDERED: CATAPRES PO SCH ×2 (15:05)
--- NOTE | 2018-12-24 15:45 | Consultation ---
History of Present Illness - Reason for Consult Consult date: 12/24/18 Groin pain and leaking of fluid - History of Present Illness 48-year-old man with a history of polycystic kidney disease, hypertension, recurrent ascites ,end-stage renal disease and dialysis comes emergency room with complaints of shortness of breath and chest pain. He missed dialysis yesterday. Chest pain is in the epigastric area, sharp pain, intermittent, mostly with cough and walking, intensity 5/10, no radiation. Denies nausea, no diaphoresis, palpitation Vascular was consulted for pain and swelling of the proximal thighs. Patient had a vascular procedure performed by Dr. Castillo which involved venography of his lower extremities with intravascular ultrasound which demonstrated no hemodynamically significant venous lesion. Since then, he has had leakage of fluid from his puncture sites which have nearly healed. The right thigh has some erythema and pain associated with it concerning for cellulitis. The patient is fluid overloaded with ascites and lower extremity edema with lymphedema of his feet. The swelling so significant that pulses cannot be palpated and there is a hump of fluid associated with the dorsum of his foot. Patient reports this is chronic. FAMILY HISTORY: Hypertension Review Of Systems: Constitutional: no Fever, no weight loss Ears, eyes, nose, mouth and throat: no nasal congestion, no nasal discharge, no sinus pressure, blurry vision, diplopia Neck: No neck pain or rigidity. Cardiovascular: orthopnea, palpitations Respiratory: No cough Gastrointestinal: abdominal pain, hematochezia Genitourinary : no dysuria, frequency Musculoskeletal: no muscle ache Integumentary: no rash, no pruritis Neurological: no parathesias, focal weakness Endocrine: no cold or heat intolerance, no polyuria or polydipsia Hematologic/Lymphatic: no easy bruising, no easy bleeding, no gland swelling Allergic/Immunologic: no urticaria, no angioedema. PAST MEDICAL HISTORY:polycystic kidney disease, hypertension, end-stage renal disease, recurrent ascites PAST SURGICAL HISTORY: AV fistula, hernia repair FAMILY HISTORY: hypertension SOCIAL HISTORY: Denies alcohol, tobacco, drug Past History Past Medical History: anemia, ESRD, hypertension, other Past Surgical History: hernia repair (Paracentesis, Left upper extremity AV graft), Other Social history: lives with family ( and children). denies: smoking, alcohol abuse, prescription drug abuse, IV drug use Family history: other (mother had anxiety disorder, one brother of meningitis. He never met his father) Medications and Allergies Allergies Allergy/AdvReac Type Severity Reaction Status Date / Time labetalol Allergy Vomiting Verified 10/16/18 15:22 polystyrene sulfonate Allergy Unknown Verified 10/16/18 13:24 [From Kayexalate] tramadol [From Ultram] AdvReac Dizziness Verified 03/05/18 15:30 Home Medications Medication Instructions Recorded Confirmed Last Taken Type cloNIDine [Catapres] 0.2 mg PO BID #60 tablet 10/29/18 12/22/18 12/12/18 06:30 Rx 0.2mg oxyCODONE [roxiCODONE] 5 mg PO Q6HR PRN 12/22/18 12/22/18 Unknown History Active Meds: Active Medications Acetaminophen (Tylenol) 650 mg PO Q4H PRN PRN Reason: Pain MILD(1-3)/Fever >100.5/SWAIN Amoxicillin/Clavulanate Potassium (Augmentin 500 Mg) 1 each PO Q24H [facility] Clonidine HCl (Catapres) 0.3 mg PO BID [facility] Enoxaparin Sodium (Lovenox) 30 mg SUB-Q QDAY [facility] Last Admin: 12/24/18 09:22 Dose: 30 mg Documented by: Epoetin Bravo (Procrit) 10,000 unit IV JULIA PRN PRN Reason: for Hgb of less than 11 Hydralazine HCl (Apresoline) 10 mg IV Q6H PRN PRN Reason: Hypertension Sodium Chloride (Nacl 0.9%) 100 mls @ 999 mls/hr IV JULIA PRN PRN Reason: Hypotension Morphine Sulfate (Morphine) 2 mg IV Q4H PRN PRN Reason: Pain, Moderate (4-6) Last Admin: 12/24/18 09:21 Dose: 2 mg Documented by: Ondansetron HCl (Zofran) 4 mg IV Q8H PRN PRN Reason: Nausea And Vomiting Last Admin: 12/24/18 09:22 Dose: 4 mg Documented by: Oxycodone HCl (Roxicodone) 5 mg PO Q6H PRN PRN Reason: Pain, moderate to severe Last Admin: 12/24/18 14:08 Dose: 5 mg Documented by: Sodium Chloride (Sodium Chloride Flush Syringe 10 Ml) 10 ml IV BID [facility] Last Admin: 12/24/18 09:23 Dose: 10 ml Documented by: Sodium Chloride (Sodium Chloride Flush Syringe 10 Ml) 10 ml IV PRN PRN PRN Reason: LINE FLUSH Last Admin: 12/23/18 03:27 Dose: 10 ml Documented by: Review of Systems All systems: negative (see HPI) Exam - Constitutional Vitals: Temp Pulse Resp BP Pulse Ox 99.0 F 71 18 164/83 95 12/24/18 08:09 12/24/18 09:20 12/24/18 08:09 12/24/18 11:26 12/24/18 08:09 General appearance: Present: mild distress (right proximal thigh pain) - EENT Eyes: Present: EOM intact ENT: hearing intact - Respiratory Respiratory effort: normal - Extremities Extremities: normal temperature, normal color, abnormal (lymphedema of the lower extremities, inability to palpate pulses due to swelling, right proximal thigh redness and pain small puncture sites of the proximal thighs draining serous fluid) - Abdominal General gastrointestinal: Present: other (ascites) - Psychiatric Psychiatric: appropriate mood/affect, cooperative Results - Labs CBC & Chem 7: 12/23/18 04:18 12/23/18 04:18 Assessment and Plan 48-year-old male with fluid overload with end-stage renal disease. Patient has lymphedema of the lower extremities and recent underwent a deep venous evaluation with intravascular ultrasound venography by Dr. Castillo. No stents were placed. There is no hemodynamically significant venous lesion. Since the procedure, the patient has been leaking serous fluid from his puncture sites and his right thigh has erythema around it and pain associated with it. The patient has cellulitis of the right thigh. I discussed this with Dr. Velasquez and recommended Augmentin or clindamycin, but other antibiotics are reasonable as well. Recommend treatment for 2 weeks. This is likely due to the serous leakage from patient's fluid overload. I ordered a venous ultrasound to exclude DVT, but my suspicion is low. Patient will need to have aggressive fluid treatment. I discussed how the pa tient will benefit from fluid removal during dialysis and may even need to be dialyzed more than 3 days a week. Patient understands.
--- NOTE | 2018-12-24 16:34 | Progress Note ---
Assessment and Plan Assessment and plan: 48-year-old man with a history of Polycystic kidney disease, hypertension, recurrent ascites ,end-stage renal disease and dialysis comes emergency room with complaints of shortness of breath and chest pain. He missed dialysis yesterday. Chest pain is in the epigastric area, sharp pain, intermittent, most ly with cough and walking, intensity 5/10, no radiation. 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 Polycystic kidney disease Plan -Patient believes that he is case baseline. -He has chronic lymphedema of the lower extremities and had a recent intravascular ultrasound venogram with no stents placed. Discussed with vascular doctor who is obtaining repeat ultrasound of the lower extremity for further evaluation admitted to exclude DVT. -In the meantime will start the patient on antibiotics for possible cellulitis. -We'll also increase clonidine to 0.3 twice a day for better control of blood pressure. He is refusing hydralazin prn. Will monitor BP closely. He tells me when he gets upset that his systolic BP goes to 300. -Extenisve >15mins counseling provided to the patient on need to be compliant patient verbalized understanding. Following dialysis in a.m. patient can be discharged -Continue supportive care -Patient reports improvement in symptoms we'll consult cardiology for evaluation he reports he had a stress test but I do not see it on the record. -Continue BP control -Continue insulin and Accu-Cheks before meals and at bedtime -Renal was consulted for urgent dialysis -DVT prophylaxis History Interval history: Patients seen and examined this morning distress reports improvement in symptoms. 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 Overnight patient's blood pressure was in the 200s patient refused hydralazine stated I does not work for him rather that he would rather take extra doses of clonidine. Hospitalist Physical - Physical exam Narrative exam: General Appearance: The patient lying in bed, breathing comfortable HEENT: Normocephalic, atraumatic. Pupils equally round and reactive to light, EOMI, no sclericterus or JVD or thyromegaly or nodule. no carotid bruit, mucous membranes moist, no exudate or erythema Heart: S1-S2, regular is rhythm Lungs: Clear to auscultation bilaterally, breathing comfortable Abdomen: Positive bowel sounds, soft, +Ascites, nontender, difficult to assess for organomegaly Extremities: + 2 edema up to knees, with some exudate noted the site of prior vascular evaluation. Questionable erythema. No cyanosis clubbing Skin: no rash, nodule, warm and dry Neuro: cranial nerves 2-12 intact, speech is fluent, motor/sensory intact - Constitutional Vitals: Temp Pulse Resp BP Pulse Ox 99.0 F 71 18 164/83 95 12/24/18 08:09 12/24/18 09:20 12/24/18 08:09 12/24/18 11:26 12/24/18 08:09 General appearance: Present: mild distress (right proximal thigh pain) Results - Labs CBC & Chem 7: 12/23/18 04:18 12/23/18 04:18 Labs: Laboratory Last Values WBC 5.5 K/mm3 (4.5-11.0) 12/23/18 04:18 RBC 3.10 M/mm3 (3.65-5.03) L 12/23/18 04:18 Hgb 9.8 gm/dl (11.8-15.2) L 12/23/18 04:18 Hct 29.1 % (35.5-45.6) L 12/23/18 04:18 MCV 94 fl (84-94) 12/23/18 04:18 MCH 32 pg (28-32) 12/23/18 04:18 MCHC 34 % (32-34) 12/23/18 04:18 RDW 17.0 % (13.2-15.2) H 12/23/18 04:18 Plt Count 184 K/mm3 (140-440) 12/23/18 04:18 Lymph % (Auto) 17.5 % (13.4-35.0) 12/22/18 19:49 [place] % (Auto) Delivery Lead 12/23/18 04:18 Eos % (Auto) 1.9 % (0.0-4.3) 12/22/18 19:49 Baso % (Auto) 1.0 % (0.0-1.8) 12/22/18 19:49 Lymph # 1.1 K/mm3 (1.2-5.4) L 12/22/18 19:49 [place] # 0.9 K/mm3 (0.0-0.8) H 12/22/18 19:49 Eos # 0.1 K/mm3 (0.0-0.4) 12/22/18 19:49 Baso # 0.1 K/mm3 (0.0-0.1) 12/22/18 19:49 Add Manual Diff Complete 12/23/18 04:18 Total Counted 100 12/23/18 04:18 Seg Neutrophils % 64.0 % (40.0-70.0) 12/22/18 19:49 Seg Neuts % (Manual) 71.0 % (40.0-70.0) H 12/23/18 04:18 0 % 12/23/18 04:18 17.0 % (13.4-35.0) 12/23/18 04:18 Reactive Lymphs % (Man) 0 % 12/23/18 04:18 10.0 % (0.0-7.3) H 12/23/18 04:18 2.0 % (0.0-4.3) 12/23/18 04:18 0 % (0.0-1.8) 12/23/18 04:18 0 % 12/23/18 04:18 0 % 12/23/18 04:18 0 % 12/23/18 04:18 0 % 12/23/18 04:18 Nucleated RBC % Not Reportable 12/23/18 04:18 Seg Neutrophils # 3.9 K/mm3 (1.8-7.7) 12/22/18 19:49 Seg Neutrophils # Man 3.9 K/mm3 (1.8-7.7) 12/23/18 04:18 Band Neutrophils # 0.0 K/mm3 12/23/18 04:18 0.9 K/mm3 (1.2-5.4) L 12/23/18 04:18 Abs React Lymphs (Man) 0.0 K/mm3 12/23/18 04:18 0.6 K/mm3 (0.0-0.8) 12/23/18 04:18 0.1 K/mm3 (0.0-0.4) 12/23/18 04:18 0.0 K/mm3 (0.0-0.1) 12/23/18 04:18 0.0 K/mm3 12/23/18 04:18 0.0 K/mm3 12/23/18 04:18 0.0 K/mm3 12/23/18 04:18 Blast Cells # 0.0 K/mm3 12/23/18 04:18 WBC Morphology Not Reportable 12/23/18 04:18 Hypersegmented Neuts Not Reportable 12/23/18 04:18 Hyposegmented Neuts Not Reportable 12/23/18 04:18 Hypogranular Neuts Not Reportable 12/23/18 04:18 Not Reportable 12/23/18 04:18 Not Reportable 12/23/18 04:18 Not Reportable 12/23/18 04:18 Not Reportable 12/23/18 04:18 Not Reportable 12/23/18 04:18 Not Reportable 12/23/18 04:18 Consistent w auto 12/23/18 04:18 Not Reportable 12/23/18 04:18 Plt Clumps, EDTA Not Reportable 12/23/18 04:18 Not Reportable 12/23/18 04:18 Not Reportable 12/23/18 04:18 Not Reportable 12/23/18 04:18 Plt Morphology Comment Not Reportable 12/23/18 04:18 RBC Morphology Not Reportable 12/23/18 04:18 Dimorphic RBCs Not Reportable 12/23/18 04:18 Not Reportable 12/23/18 04:18 Not Reportable 12/23/18 04:18 Not Reportable 12/23/18 04:18 1+ 12/23/18 04:18 Not Reportable 12/23/18 04:18 Not Reportable 12/23/18 04:18 Not Reportable 12/23/18 04:18 Not Reportable 12/23/18 04:18 Not Reportable 12/23/18 04:18 Not Reportable 12/23/18 04:18 Not Reportable 12/23/18 04:18 Not Reportable 12/23/18 04:18 Not Reportable 12/23/18 04:18 Not Reportable 12/23/18 04:18 Not Reportable 12/23/18 04:18 Not Reportable 12/23/18 04:18 Not Reportable 12/23/18 04:18 Not Reportable 12/23/18 04:18 Not Reportable 12/23/18 04:18 Acanthocytes (Spur) Not Reportable 12/23/18 04:18 Rouleaux Not Reportable 12/23/18 04:18 Not Reportable 12/23/18 04:18 Not Reportable 12/23/18 04:18 Not Reportable 12/23/18 04:18 Not Reportable 12/23/18 04:18 Hem Pathologist Commnt No 12/23/18 04:18 PT 18.3 Sec. (12.2-14.9) H 12/22/18 20:06 INR 1.56 (0.87-1.13) H 12/22/18 20:06 APTT 53.1 Sec. (24.2-36.6) H 12/22/18 20:06 Sodium 139 mmol/L (137-145) 12/23/18 04:18 Potassium 4.8 mmol/L (3.6-5.0) D 12/23/18 04:18 Chloride 95.7 mmol/L (98-107) L 12/23/18 04:18 Carbon Dioxide 25 mmol/L (22-30) D 12/23/18 04:18 23 mmol/L 12/23/18 04:18 BUN 65 mg/dL (9-20) H 12/23/18 04:18 10.7 mg/dL (0.8-1.5) H 12/23/18 04:18 Estimated GFR 6 ml/min 12/23/18 04:18 6 % 12/23/18 04:18 Glucose 109 mg/dL (75-100) H 12/23/18 04:18 POC Glucose 100 (70-105) 12/22/18 20:58 Calcium 8.8 mg/dL (8.4-10.2) 12/23/18 04:18 0.60 mg/dL (0.1-1.2) 12/22/18 19:49 AST 16 units/L (5-40) 12/22/18 19:49 ALT 13 units/L (7-56) 12/22/18 19:49 64 units/L (35-129) 12/22/18 19:49 1224 units/L (55-170) H 12/23/18 04:18 CK-MB (CK-2) 28.0 ng/mL (0.0-4.0) H 12/23/18 04:18 CK-MB (CK-2) Rel Index 2.2 (0-4) 12/23/18 04:18 1.050 ng/mL (0.00-0.029) H* 12/23/18 04:18 NT-Pro-B Natriuret Pep > 91861 pg/mL (0-450) H 12/22/18 20:06 7.1 g/dL (6.3-8.2) 12/22/18 19:49 3.4 g/dL (3.9-5) L 12/22/18 19:49 0.9 % 12/22/18 19:49 Triglycerides 51 mg/dL (2-149) 12/22/18 20:06 Cholesterol 118 mg/dL (50-199) 12/22/18 20:06 69 mg/dL (50-130) 12/22/18 20:06 44 mg/dL (40-59) 12/22/18 20:06 2.68 % 12/22/18 20:06 Hepatitis A IgM Ab Non-reactive (NonReactive) 12/23/18 02:05 Hep Bs Antigen Non-reactive (Negative) 12/23/18 02:05 Hep B Core IgM Ab Non-reactive (NonReactive) 12/23/18 02:05 Non-reactive (NonReactive) 12/23/18 02:05 Active Medications - Current Medications Current Medications: Generic Name Dose Route Start Last Admin Trade Name Freq PRN Reason Stop Dose Admin Acetaminophen 650 mg 12/22/18 22:33 Tylenol PO Q4H PRN Pain MILD(1-3)/Fever >100.5/SWAIN Amoxicillin/Clavulanate Potassium 1 each 12/24/18 16:00 Augmentin 500 Mg PO Q24H FOR[facility]1983 Clonidine HCl 0.3 mg 12/24/18 15:05 Catapres PO BID FOSTER Enoxaparin Sodium 30 mg 12/23/18 10:00 12/24/18 09:22 Lovenox SUB-Q 30 mg QDAY FOSTER Administration Epoetin Bravo 10,000 unit 12/22/18 23:24 Procrit IV JULIA PRN for Hgb of less than 11 Hydralazine HCl 10 mg 12/23/18 13:50 Apresoline IV Q6H PRN Hypertension Hydromorphone HCl 0.5 mg 12/24/18 16:07 Dilaudid IV Q3H PRN Pain , Severe (7-10) Sodium Chloride 100 mls @ 999 mls/hr 12/23/18 14:24 Nacl 0.9% IV JULIA PRN Hypotension Ondansetron HCl 4 mg 12/22/18 22:33 12/24/18 09:22 Zofran IV 4 mg Q8H PRN Administration Nausea And Vomiting Oxycodone HCl 5 mg 12/23/18 10:56 12/24/18 14:08 Roxicodone PO 5 mg Q6H PRN Administration Pain, moderate to severe Sodium Chloride 10 ml 12/23/18 10:00 12/24/18 09:23 Sodium Chloride Flush Syringe 10 Ml IV 10 ml BID FOSTER Administration Sodium Chloride 10 ml 12/22/18 22:33 12/23/18 03:27 Sodium Chloride Flush Syringe 10 Ml IV 10 ml PRN PRN Administration LINE FLUSH
[2018-12-24] MEDS: DILAUDID IV PRN (16:40)
--- NOTE | 2018-12-24 16:41 | Vascular Lab Report ---
DUPLEX DOPPLER LOWER EXTREMITY VEINS, BILATERAL INDICATION: swelling and pain. TECHNIQUE: Duplex doppler imaging was performed through the veins of both lower extremities using venous imani pia and other maneuvers. COMPARISON: No relevant prior imaging study available. FINDINGS: Right Common femoral vein: Not visualized. Right Superficial femoral vein: Proximal SFV not visualized. Mid and distal appear grossly unremarkab le. Right Popliteal vein: Negative. Right Calf veins: Negative. Left Common femoral vein: Not visualized. Left Superficial femoral vein: Proximal SFV not visualized. Mid and distal appear grossly unremarkabl e. Left Popliteal vein: Negative. Left Calf veins: Negative. Additional findings: Is moderate generalized edema about both lower extremities. IMPRESSION: 1. No gross evidence of DVT in either of the lower extremities on this limited exam; however, there w as moderate generalized edema and compressibility was very limited. Signer Name: Heath Hill MD Signed: 12/24/2018 4:36 PM Workstation Name: [id number]
[2018-12-24] MEDS: AUGMENTIN 500 MG PO SCH (17:33)
[2018-12-24] MEDS ORDERED: AUGMENTIN 875 MG PO SCH (22:00)
--- NOTE | 2018-12-25 08:17 | Progress Note ---
Assessment and Plan - Patient Problems (1) ESRD (end stage renal disease) Current Visit: No Status: Acute Plan to address problem: We'll maintain on a Monday inpatient hemodialysis session. We'll continue to recommend extra dialysis sessions for isolated ultrafiltration. (2) Fluid overload Current Visit: Yes Status: Chronic Plan to address problem: Patient is chronically volume overloaded with a significant 2-3+ pitting edema and anasarca. Despite this he is convinced that he is at his dry weight. He refused dialysis today and is refusing any extra dialysis sessions other than his Monday schedule. We'll continue to monitor and follow- up. Discussed importance of fluid restrictions and low sodium diet. (3) Hypertensive chronic kidney disease with stage 5 chronic kidney disease or end stage renal disease Current Visit: Yes Status: Acute Plan to address problem: Continue current regimen. I discussed the patient that likely he has a significant volume overload component to his blood pressure control. He is still not agreeable to extra dialysis sessions for ultrafiltration to maintain a euvolemic state. (4) Hyperkalemia Current Visit: Yes Status: Acute Plan to address problem: Resolved with hemodialysis session on Monday. Discussed importance of low potassium diet. (5) Ascites Current Visit: Yes Status: Acute Plan to address problem: Status post paracentesis about one week ago. We'll follow-up. (6) Chest pain Current Visit: Yes Status: Acute Plan to address problem: Management per primary attending. No acute complaints this morning. (7) Anemia in chronic kidney disease, on chronic dialysis Current Visit: Yes Status: Chronic Plan to address problem: Epogen with hemodialysis sessions. Subjective Date of service: 12/25/18 Interval history: No new acute events overnight. Vascular surgery consult reviewed. Start on antibiotics for right lower extremity cellulitis. Plan for hemodialysis today per his Monday//Monday schedule. We will again try to remove at least 3 L of ultrafiltration as this is the maximum amount that patient will allow us to remove during treatment. Objective - Vital Signs Vital signs: Vital Signs - 12hr 12/24/18 12/24/18 12/25/18 21:29 23:38 00:27 Temperature 98.8 F Pulse Rate Respiratory 18 Rate Blood Pressure 196/90 O2 Sat by Pulse 95 35 L 90 Oximetry 12/25/18 12/25/1812/25/19 04:00 04:10 08:05 Temperature 99.0 F Pulse Rate 68 71 Respiratory 20 Rate Blood Pressure 168/81 O2 Sat by Pulse 96 94 Oximetry - General Appearance General appearance: well-developed, well-nourished, appears stated age EENT: ATNC, PERRL Neck: no thyromegaly Respiratory: Present: Decreased Breath Sounds Cardiology: regular, S1S2 Gastrointestinal: normal, normoactive bowel sounds Integumentary: erythema, hyperpigmentation, chronic venous stasis Neurologic: no focal deficit, alert and oriented x3 Musculoskeletal: other (2-3+ pitting edema) Psychiatric: mood/affect appropriate, cooperative - Lab 12/23/18 04:18 12/23/18 04:18 Most recent lab results Calcium 8.8 mg/dL (8.4-10.2) 12/23/18 04:18 - Allied health notes Allied health notes reviewed: nursing Medications & Allergies - Medications Allergies/Adverse Reactions: Allergies labetalol Allergy (Verified 10/16/18 15:22) Vomiting pt also reports drastic drop in HR polystyrene sulfonate [From Kayexalate] Allergy (Verified 10/16/18 13:24) Unknown tramadol [From Ultram] Adverse Reaction (Verified 03/05/18 15:30) Dizziness Home Medications: Home Medications Medication Instructions Recorded Confirmed Last Taken Type cloNIDine [Catapres] 0.2 mg PO BID #60 tablet 10/29/18 12/22/18 12/12/18 06:30 Rx 0.2mg oxyCODONE [roxiCODONE] 5 mg PO Q6HR PRN 12/22/18 12/22/18 Unknown History Active Medications: Generic Name Dose Route Start Last Admin Trade Name Freq PRN Reason Stop Dose Admin Acetaminophen 650 mg 12/22/18 22:33 Tylenol PO Q4H PRN Pain MILD(1-3)/Fever >100.5/SWAIN Amoxicillin/Clavulanate Potassium 1 each 12/24/18 16:00 12/24/18 17:33 Augmentin 500 Mg PO 1 each Q24H FOSTER Administration Clonidine HCl 0.3 mg 12/24/18 22:00 12/24/18 21:02 Catapres PO 0.3 mg Q12HR FOSTER Administration Enoxaparin Sodium 30 mg 12/23/18 10:00 12/24/18 09:22 Lovenox SUB-Q 30 mg QDAY FOSTER Administration Epoetin Bravo 10,000 unit 12/22/18 23:24 Procrit IV JULIA PRN for Hgb of less than 11 Hydromorphone HCl 0.5 mg 12/24/18 16:07 12/24/18 16:40 Dilaudid IV 0.5 mg Q3H PRN Administration Pain , Severe (7-10) Sodium Chloride 100 mls @ 999 mls/hr 12/23/18 14:24 Nacl 0.9% IV JULIA PRN Hypotension Ondansetron HCl 4 mg 12/22/18 22:33 12/24/18 09:22 Zofran IV 4 mg Q8H PRN Administration Nausea And Vomiting Oxycodone HCl 5 mg 12/23/18 10:56 12/24/18 21:02 Roxicodone PO 5 mg Q6H PRN Administration Pain, moderate to severe Sodium Chloride 10 ml 12/23/18 10:00 12/24/18 21:03 Sodium Chloride Flush Syringe 10 Ml IV 10 ml BID FOSTER Administration Sodium Chloride 10 ml 12/22/18 22:33 12/23/18 03:27 Sodium Chloride Flush Syringe 10 Ml IV 10 ml PRN PRN Administration LINE FLUSH
--- NOTE | 2018-12-25 09:20 | Progress Note ---
Assessment and Plan Volume overload s/t missed dialysis Hyperkalemia -corrected following dialysis Chronic Ascites Enlarged Polycystic Kidneys End-stage renal disease on hemodialysis Chronic systolic heart failure Nonischemic Cardiomyopathy EF 35-40% by echo 02/2018 no ischemia on MPI 12/2017 Hypertension Hypothyroidism Noncompliance Recommendations: Fluid/sodium restriction. Dialysis for fluid removal. Medical therapy for chronic systolic heart failure and nonischemic cardiomyopathy. Subjective Date of service: 12/25/18 Interval history: Patient is resting comfortably in bed. No cardiac complaints. Objective Vital Signs Temp Pulse Resp BP Pulse Ox 12/25/18 08:58 99.3 F 63 18 164/75 95 12/25/18 08:05 94 12/25/18 04:10 99.0 F 71 20 168/81 96 12/25/18 04:00 68 12/25/18 00:27 90 12/24/18 23:38 98.8 F 18 196/90 35 L 12/24/18 21:29 95 12/24/18 19:33 98.7 F 60 20 157/77 91 12/24/18 17:04 99.4 F 74 18 171/81 90 12/24/18 11:26 164/83 12/24/18 09:20 71 230/93 - Physical Examination General: No Apparent Distress HEENT: Positive: PERRL Neck: Positive: trachea midline Cardiac: Positive: Reg Rate and Rhythm Lungs: Positive: Decreased Breath Sounds Neuro: Positive: Grossly Intact Abdomen: Positive: Ascites, Distended Extremities: Present: edema - Allied health notes Allied health notes reviewed: nursing
[2018-12-25] MEDS: ROXICODONE PO PRN (09:46)
[2018-12-25] MEDS: LOVENOX SUB-Q SCH (09:47)
[2018-12-25] MEDS: SODIUM CHLORIDE FLUSH SYRINGE 10 ML IV SCH (09:48)
[2018-12-25] MEDS: CATAPRES PO SCH (09:48)
[2018-12-25] MEDS ORDERED: NACL 0.9 (PRIMING MACHINE ONLY DIALYSIS) MC ONE ×2 (17:02→22:12)
--- NOTE | 2018-12-25 17:12 | Progress Note ---
Assessment and Plan Assessment and plan: Patient is a 48-year-old man with a history of Polycystic kidney disease, hypertension, recurrent ascites, ESRD on Hemodialysis and PVD s/p recent vascular procedure performed by Dr. Castillo which involved bilateral venography of his lower extremities with intravascular ultrasound which demonstrated no h emodynamically significant venous lesion. Since then, he has had leakage of fluid from his puncture sites. The right thigh has some erythema and pain associated with it concerning for cellulitis. 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 The erythematous is worse so I started IV vancomycin and consulted ID History Interval history: Patient was seen and examined. Follow-up on current diagnosis of leg cellulitis. No overnight events reported to me. Patient denies any chest pain, shortness breath, nausea/vomiting or severe headaches. Imaging, nursing note, chart, labs and old chart reviewed. Discussed with patient. Hospitalist Physical - Physical exam Narrative exam: Gen: WDWN, NAD, Awake, Alert, Orientated HEENT: NCAT, EOMI, PERRL, OP Clear Neck: supple, no adenopathy, no thyromegaly, no JVD CVS/Heart: RRR, normal S1S2, pulses present bilaterally Chest/Lungs: diminished, Symmetrical chest expansion, good air entry bilaterally GI/Abdomen: soft, distended, nontender, good bowel sounds, no guarding or rebound /Bladder: scrotal and uncirc penile edema with fluid leakage, no suprapubic tenderness, no CVA or paraspinal tenderness Extermity/Skin: anascarca, bilateral red, tender warm erythema thigh to knee right >left Neuro: CN 2-12 grossly intact, no new focal deficits Psych: calm - Constitutional Vitals: Temp Pulse Resp BP Pulse Ox 98 F 66 18 154/88 96 07/30/19 14:40 12/25/18 16:45 12/25/18 14:40 12/25/18 16:45 12/25/18 12:24 General appearance: Absent: mild distress Results - Labs CBC & Chem 7: 12/23/18 04:18 12/23/18 04:18 Labs: Laboratory Last Values WBC 5.5 K/mm3 (4.5-11.0) 12/23/18 04:18 RBC 3.10 M/mm3 (3.65-5.03) L 12/23/18 04:18 Hgb 9.8 gm/dl (11.8-15.2) L 12/23/18 04:18 Hct 29.1 % (35.5-45.6) L 12/23/18 04:18 MCV 94 fl (84-94) 12/23/18 04:18 MCH 32 pg (28-32) 12/23/18 04:18 MCHC 34 % (32-34) 12/23/18 04:18 RDW 17.0 % (13.2-15.2) H 12/23/18 04:18 Plt Count 184 K/mm3 (140-440) 12/23/18 04:18 Lymph % (Auto) 17.5 % (13.4-35.0) 12/22/18 19:49 [place] % (Auto) Coffin Maker 12/23/18 04:18 Eos % (Auto) 1.9 % (0.0-4.3) 12/22/18 19:49 Baso % (Auto) 1.0 % (0.0-1.8) 12/22/18 19:49 Lymph # 1.1 K/mm3 (1.2-5.4) L 12/22/18 19:49 [place] # 0.9 K/mm3 (0.0-0.8) H 12/22/18 19:49 Eos # 0.1 K/mm3 (0.0-0.4) 12/22/18 19:49 Baso # 0.1 K/mm3 (0.0-0.1) 12/22/18 19:49 Add Manual Diff Complete 12/23/18 04:18 Total Counted 100 12/23/18 04:18 Seg Neutrophils % 64.0 % (40.0-70.0) 12/22/18 19:49 Seg Neuts % (Manual) 71.0 % (40.0-70.0) H 12/23/18 04:18 0 % 12/23/18 04:18 17.0 % (13.4-35.0) 12/23/18 04:18 Reactive Lymphs % (Man) 0 % 12/23/18 04:18 10.0 % (0.0-7.3) H 12/23/18 04:18 2.0 % (0.0-4.3) 12/23/18 04:18 0 % (0.0-1.8) 12/23/18 04:18 0 % 12/23/18 04:18 0 % 12/23/18 04:18 0 % 12/23/18 04:18 0 % 12/23/18 04:18 Nucleated RBC % Not Reportable 12/23/18 04:18 Seg Neutrophils # 3.9 K/mm3 (1.8-7.7) 12/22/18 19:49 Seg Neutrophils # Man 3.9 K/mm3 (1.8-7.7) 12/23/18 04:18 Band Neutrophils # 0.0 K/mm3 12/23/18 04:18 0.9 K/mm3 (1.2-5.4) L 12/23/18 04:18 Abs React Lymphs (Man) 0.0 K/mm3 12/23/18 04:18 0.6 K/mm3 (0.0-0.8) 12/23/18 04:18 0.1 K/mm3 (0.0-0.4) 12/23/18 04:18 0.0 K/mm3 (0.0-0.1) 12/23/18 04:18 0.0 K/mm3 12/23/18 04:18 0.0 K/mm3 12/23/18 04:18 0.0 K/mm3 12/23/18 04:18 Blast Cells # 0.0 K/mm3 12/23/18 04:18 WBC Morphology Not Reportable 12/23/18 04:18 Hypersegmented Neuts Not Reportable 12/23/18 04:18 Hyposegmented Neuts Not Reportable 12/23/18 04:18 Hypogranular Neuts Not Reportable 12/23/18 04:18 Not Reportable 12/23/18 04:18 Not Reportable 12/23/18 04:18 Not Reportable 12/23/18 04:18 Not Reportable 12/23/18 04:18 Not Reportable 12/23/18 04:18 Not Reportable 12/23/18 04:18 Consistent w auto 12/23/18 04:18 Not Reportable 12/23/18 04:18 Plt Clumps, EDTA Not Reportable 12/23/18 04:18 Not Reportable 12/23/18 04:18 Not Reportable 12/23/18 04:18 Not Reportable 12/23/18 04:18 Plt Morphology Comment Not Reportable 12/23/18 04:18 RBC Morphology Not Reportable 12/23/18 04:18 Dimorphic RBCs Not Reportable 12/23/18 04:18 Not Reportable 12/23/18 04:18 Not Reportable 12/23/18 04:18 Not Reportable 12/23/18 04:18 1+ 12/23/18 04:18 Not Reportable 12/23/18 04:18 Not Reportable 12/23/18 04:18 Not Reportable 12/23/18 04:18 Not Reportable 12/23/18 04:18 Not Reportable 12/23/18 04:18 Not Reportable 12/23/18 04:18 Not Reportable 12/23/18 04:18 Not Reportable 12/23/18 04:18 Not Reportable 12/23/18 04:18 Not Reportable 12/23/18 04:18 Not Reportable 12/23/18 04:18 Not Reportable 12/23/18 04:18 Not Reportable 12/23/18 04:18 Not Reportable 12/23/18 04:18 Not Reportable 12/23/18 04:18 Acanthocytes (Spur) Not Reportable 12/23/18 04:18 Rouleaux Not Reportable 12/23/18 04:18 Not Reportable 12/23/18 04:18 Not Reportable 12/23/18 04:18 Not Reportable 12/23/18 04:18 Not Reportable 12/23/18 04:18 Hem Pathologist Commnt No 12/23/18 04:18 PT 18.3 Sec. (12.2-14.9) H 12/22/18 20:06 INR 1.56 (0.87-1.13) H 12/22/18 20:06 APTT 53.1 Sec. (24.2-36.6) H 12/22/18 20:06 Sodium 139 mmol/L (137-145) 12/23/18 04:18 Potassium 4.8 mmol/L (3.6-5.0) D 12/23/18 04:18 Chloride 95.7 mmol/L (98-107) L 12/23/18 04:18 Carbon Dioxide 25 mmol/L (22-30) D 12/23/18 04:18 23 mmol/L 12/23/18 04:18 BUN 65 mg/dL (9-20) H 12/23/18 04:18 10.7 mg/dL (0.8-1.5) H 12/23/18 04:18 Estimated GFR 6 ml/min 12/23/18 04:18 6 % 12/23/18 04:18 Glucose 109 mg/dL (75-100) H 12/23/18 04:18 POC Glucose 100 (70-105) 12/22/18 20:58 Calcium 8.8 mg/dL (8.4-10.2) 12/23/18 04:18 0.60 mg/dL (0.1-1.2) 12/22/18 19:49 AST 16 units/L (5-40) 12/22/18 19:49 ALT 13 units/L (7-56) 12/22/18 19:49 64 units/L (35-129) 12/22/18 19:49 1224 units/L (55-170) H 12/23/18 04:18 CK-MB (CK-2) 28.0 ng/mL (0.0-4.0) H 12/23/18 04:18 CK-MB (CK-2) Rel Index 2.2 (0-4) 12/23/18 04:18 1.050 ng/mL (0.00-0.029) H* 12/23/18 04:18 NT-Pro-B Natriuret Pep > 97593 pg/mL (0-450) H 12/22/18 20:06 7.1 g/dL (6.3-8.2) 12/22/18 19:49 3.4 g/dL (3.9-5) L 12/22/18 19:49 0.9 % 12/22/18 19:49 Triglycerides 51 mg/dL (2-149) 12/22/18 20:06 Cholesterol 118 mg/dL (50-199) 12/22/18 20:06 69 mg/dL (50-130) 12/22/18 20:06 44 mg/dL (40-59) 12/22/18 20:06 2.68 % 12/22/18 20:06 Hepatitis A IgM Ab Non-reactive (NonReactive) 12/23/18 02:05 Hep Bs Antigen Non-reactive (Negative) 12/23/18 02:05 Hep B Core IgM Ab Non-reactive (NonReactive) 12/23/18 02:05 Non-reactive (NonReactive) 12/23/18 02:05 Active Medications - Current Medications Current Medications: Generic Name Dose Route Start Last Admin Trade Name Freq PRN Reason Stop Dose Admin Acetaminophen 650 mg 12/22/18 22:33 Tylenol PO Q4H PRN Pain MILD(1-3)/Fever >100.5/SWAIN Clonidine HCl 0.3 mg 12/24/18 22:00 12/25/18 09:48 Catapres PO Not Given Q12HR [facility] Enoxaparin Sodium 30 mg 12/23/18 10:00 12/25/18 09:47 Lovenox SUB-Q Not Given QDAY [facility] Epoetin Bravo 10,000 unit 12/22/18 23:24 Procrit IV JULIA PRN for Hgb of less than 11 Hydromorphone HCl 0.5 mg 12/24/18 16:07 12/24/18 16:40 Dilaudid IV 0.5 mg Q3H PRN Administration Pain , Severe (7-10) Sodium Chloride 100 mls @ 999 mls/hr 12/23/18 14:24 Nacl 0.9% IV JULIA PRN Hypotension Ondansetron HCl 4 mg 12/22/18 22:33 12/24/18 09:22 Zofran IV 4 mg Q8H PRN Administration Nausea And Vomiting Oxycodone HCl 5 mg 12/23/18 10:56 12/25/18 09:46 Roxicodone PO 5 mg Q6H PRN Administration Pain, moderate to severe Sodium Chloride 10 ml 12/23/18 10:00 12/25/18 09:48 Sodium Chloride Flush Syringe 10 Ml IV 10 ml BID FOSTER Administration Sodium Chloride 10 ml 12/22/18 22:33 12/23/18 03:27 Sodium Chloride Flush Syringe 10 Ml IV 10 ml PRN PRN Administration LINE FLUSH
[2018-12-25] MEDS ORDERED: VANCOMYCIN 2,000 MG in NACL 0.9% 500 ML 500 ML IV ONE (18:00)
[2018-12-25] MEDS ORDERED: VANCOMYCIN PHARMACY TO DOSE IV SCH (18:00)
[2018-12-25] MEDS: DILAUDID IV PRN (19:55)
[2018-12-26] MEDS: DILAUDID IV PRN ×2 (00:27→21:30)
[2018-12-26] MEDS: SODIUM CHLORIDE FLUSH SYRINGE 10 ML IV SCH ×3 (00:44→21:45)
[2018-12-26] MEDS: AUGMENTIN 500 MG PO SCH (01:11)
[2018-12-26 07:52] LABS: Hematocrit 28.7 % (35.5-45.6); Hemoglobin 9.4 gm/dl (11.8-15.2); Mean Corpuscular HGB Conc 33 % (32-34); Mean Corpuscular Volume 93 fl (84-94); Platelet Count 153 K/mm3 (140-440); Red Blood Count 3.07 M/mm3 (3.65-5.03); Red Cell Distribution Width 17.3 % (13.2-15.2)
[2018-12-26 08:17] LABS: Calcium 8.9 mg/dL (8.4-10.2)
--- NOTE | 2018-12-26 09:39 | Progress Note ---
Assessment and Plan - Patient Problems (1) ESRD (end stage renal disease) Current Visit: No Status: Acute Plan to address problem: We'll maintain on a Monday inpatient hemodialysis session. We'll continue to recommend extra dialysis sessions for isolated ultrafiltration. (2) Fluid overload Current Visit: Yes Status: Chronic Plan to address problem: Patient is chronically volume overloaded with a significant 2-3+ pitting edema and anasarca. Despite this he is convinced that he is at his dry weight. He refused dialysis today and is refusing any extra dialysis sessions other than his Monday schedule. We'll continue to monitor and follow- up. Discussed importance of fluid restrictions and low sodium diet. (3) Hypertensive chronic kidney disease with stage 5 chronic kidney disease or end stage renal disease Current Visit: Yes Status: Acute Plan to address problem: Continue current regimen. I discussed the patient that likely he has a significant volume overload component to his blood pressure control. He is still not agreeable to extra dialysis sessions for ultrafiltration to maintain a euvolemic state. (4) Hyperkalemia Current Visit: Yes Status: Acute Plan to address problem: Elevated potassium levels this morning noted. Patient refuses to have a session of hemodialysis for clearance. Will opt to treat medically then. Lasix at this time. Recheck BMP later this afternoon. Discussed with the hemodialysis staff and patient did have full treatment yesterday which was uneventful. (5) Ascites Current Visit: Yes Status: Acute Plan to address problem: Status post paracentesis about one week ago. We'll follow-up. (6) Chest pain Current Visit: Yes Status: Acute Plan to address problem: Management per primary attending. No acute complaints this morning. (7) Anemia in chronic kidney disease, on chronic dialysis Current Visit: Yes Status: Chronic Plan to address problem: Epogen with hemodialysis sessions. Subjective Date of service: 12/26/18 Interval history: Labs reviewed this morning indicating hyperkalemia. Patient does not want to swain ve a repeat session of hemodialysis. We'll treat medically. He is anxious to go home. Objective - Vital Signs Vital signs: Vital Signs - 12hr 12/25/18 12/26/18 12/26/18 23:17 00:00 00:27 Temperature 98.5 F Pulse Rate 80 78 Respiratory 20 18 Rate Blood Pressure 192/87 160/68 O2 Sat by Pulse 95 Oximetry 12/26/18 12/26/18 04:02 08:25 Temperature 98.2 F 98.2 F Pulse Rate 64 66 Respiratory 20 18 Rate Blood Pressure 137/70 162/73 O2 Sat by Pulse 92 90 Oximetry - General Appearance General appearance: well-nourished, appears stated age EENT: ATNC, PERRL Neck: no thyromegaly Respiratory: Present: Decreased Breath Sounds Cardiology: regular, S1S2 Gastrointestinal: normal, normoactive bowel sounds Integumentary: erythema, hyperpigmentation, chronic venous stasis Neurologic: no focal deficit, no asterixis, alert and oriented x3 Musculoskeletal: erythema, other (2-3+ pitting edema) Psychiatric: mood/affect appropriate, cooperative - Lab 12/26/18 07:39 12/26/18 07:39 Most recent lab results Calcium 8.9 mg/dL (8.4-10.2) 12/26/18 07:39 - Allied health notes Allied health notes reviewed: nursing Medications & Allergies - Medications Allergies/Adverse Reactions: Allergies labetalol Allergy (Verified 10/16/18 15:22) Vomiting pt also reports drastic drop in HR polystyrene sulfonate [From Kayexalate] Allergy (Verified 10/16/18 13:24) Unknown tramadol [From Ultram] Adverse Reaction (Verified 03/05/18 15:30) Dizziness Home Medications: Home Medications Medication Instructions Recorded Confirmed Last Taken Type cloNIDine [Catapres] 0.2 mg PO BID #60 tablet 10/29/18 12/22/18 12/12/18 06:30 Rx 0.2mg oxyCODONE [roxiCODONE] 5 mg PO Q6HR PRN 12/22/18 12/22/18 Unknown History Active Medications: Generic Name Dose Route Start Last Admin Trade Name Freq PRN Reason Stop Dose Admin Acetaminophen 650 mg 12/22/18 22:33 Tylenol PO Q4H PRN Pain MILD(1-3)/Fever >100.5/SWAIN Clonidine HCl 0.3 mg 12/24/18 22:00 12/26/18 00:00 Catapres PO 0.3 mg Q12HR FOSTER Administration Dextrose 25 ml 12/26/18 09:32 D50w (25gm) Syringe IV 12/26/18 09:33 ONCE ONE Enoxaparin Sodium 30 mg 12/23/18 10:00 12/25/18 09:47 Lovenox SUB-Q Not Given QDAY FOSTER Epoetin Bravo 10,000 unit 12/22/18 23:24 12/25/18 17:22 Procrit IV 10,000 unit JULIA PRN Administration for Hgb of less than 11 Hydromorphone HCl 0.5 mg 12/24/18 16:07 12/26/18 00:27 Dilaudid IV 0.5 mg Q3H PRN Administration Pain , Severe (7-10) Sodium Chloride 100 mls @ 999 mls/hr 12/23/18 14:24 Nacl 0.9% IV JULIA PRN Hypotension Insulin Human Regular 10 units 12/26/18 09:30 Humulin R SUB-Q 12/26/18 09:31 ONCE ONE Ondansetron HCl 4 mg 12/22/18 22:33 12/24/18 09:22 Zofran IV 4 mg Q8H PRN Administration Nausea And Vomiting Oxycodone HCl 5 mg 12/23/18 10:56 12/25/18 09:46 Roxicodone PO 5 mg Q6H PRN Administration Pain, moderate to severe Sodium Chloride 10 ml 12/23/18 10:00 12/26/18 00:44 Sodium Chloride Flush Syringe 10 Ml IV 10 ml BID FOSTER Administration Sodium Chloride 10 ml 12/22/18 22:33 12/23/18 03:27 Sodium Chloride Flush Syringe 10 Ml IV 10 ml PRN PRN Administration LINE FLUSH
[2018-12-26] MEDS ORDERED: D50W (25GM) Syringe IV NR (10:00)
[2018-12-26] MEDS ORDERED: HumuLIN R SUB-Q NR (10:00)
--- NOTE | 2018-12-26 10:45 | Progress Note ---
<WES CARBALLO - Last Filed: 12/26/18 10:44> Assessment and Plan Volume overload s/t missed dialysis Hyperkalemia -corrected following dialysis Chronic Ascites Enlarged Polycystic Kidneys End-stage renal disease on hemodialysis Chronic systolic heart failure Nonischemic Cardiomyopathy EF 35-40% by echo 02/2018 no ischemia on MPI 12/2017 Hypertension Hypothyroidism Noncompliance Recommendations: Fluid/sodium restriction. Dialysis for fluid removal. Medical therapy for chronic systolic heart failure and nonischemic cardiomyop athy. Otherwise, conservative cardiac management. Subjective Date of service: 12/26/18 Interval history: Patient is resting comfortably in bed. No cardiac complaints. Objective Vital Signs Temp Pulse Resp Resp BP Pulse Ox 12/26/18 08:25 98.2 F 66 18 162/73 90 12/26/18 04:02 98.2 F 64 20 137/70 92 12/26/18 00:27 18 12/26/18 00:00 78 160/68 95 12/25/18 23:17 98.5 F 80 20 192/87 12/25/18 20:47 92 12/25/18 20:11 74 12/25/18 19:55 18 18 12/25/18 19:38 99.0 F 78 20 160/68 92 12/25/18 17:30 98.5 F 76 16 172/88 12/25/18 17:15 75 200/93 12/25/18 17:00 78 129/71 12/25/18 16:45 66 154/88 12/25/18 16:30 66 156/86 12/25/18 16:15 64 143/75 12/25/18 16:00 67 153/78 12/25/18 15:45 67 154/74 12/25/18 15:30 66 158/83 12/25/18 15:15 65 156/79 12/25/18 15:00 67 167/82 12/25/18 14:45 67 172/84 12/25/18 14:40 98 F 62 18 168/78 12/25/18 12:24 98.9 F 59 L 20 145/72 96 - Physical Examination General: No Apparent Distress HEENT: Positive: PERRL Neck: Positive: trachea midline Cardiac: Positive: Reg Rate and Rhythm Lungs: Positive: Decreased Breath Sounds Neuro: Positive: Grossly Intact Abdomen: Positive: Distended Extremities: Present: edema - Labs and Meds CBC 12/26/18 Range/Units 07:39 WBC 11.9 H (4.5-11.0) K/mm3 RBC 3.07 L (3.65-5.03) M/mm3 Hgb 9.4 L (11.8-15.2) gm/dl Hct 28.7 L (35.5-45.6) % Plt Count 153 (140-440) K/mm3 Comprehensive Metabolic Panel 12/26/18 Range/Units 07:39 Sodium 136 L (137-145) mmol/L Potassium 6.5 H* D (3.6-5.0) mmol/L Chloride 93.6 L (98-107) mmol/L Carbon Dioxide 26 (22-30) mmol/L BUN 71 H (9-20) mg/dL Creatinine 11.1 H (0.8-1.5) mg/dL Glucose 105 H (75-100) mg/dL Calcium 8.9 (8.4-10.2) mg/dL - Allied health notes Allied health notes reviewed: nursing <HOLLIS DESAI - Last Filed: 12/26/18 11:21> Assessment and Plan I have seen and evaluated the patient agreed with this plan. Patient is known to be noncompliant. The patient has a history of volume overload secondary to noncompliance, end-stage renal disease on hemodialysis, chronic systolic heart failure, nonischemic myopathy with ejection fraction 35-40% by echocardiogram. At this time recommend dialysis for volume removal. Recommend continued medical therapy for treatment of ischemic non-cardiomyopathy. Objective Vital Signs Temp Pulse Resp Resp BP Pulse Ox 12/26/18 11:01 99 12/26/18 08:25 98.2 F 66 18 162/73 90 12/26/18 04:02 98.2 F 64 20 137/70 92 12/26/18 00:27 18 12/26/18 00:00 78 160/68 95 12/25/18 23:17 98.5 F 80 20 192/87 12/25/18 20:47 92 12/25/18 20:11 74 12/25/18 19:55 18 18 12/25/18 19:38 99.0 F 78 20 160/68 92 12/25/18 17:30 98.5 F 76 16 172/88 12/25/18 17:15 75 200/93 12/25/18 17:00 78 129/71 12/25/18 16:45 66 154/88 12/25/18 16:30 66 156/86 12/25/18 16:15 64 143/75 12/25/18 16:00 67 153/78 12/25/18 15:45 67 154/74 12/25/18 15:30 66 158/83 12/25/18 15:15 65 156/79 12/25/18 15:00 67 167/82 12/25/18 14:45 67 172/84 12/25/18 14:40 98 F 62 18 168/78 12/25/18 12:24 98.9 F 59 L 20 145/72 96 - Labs and Meds CBC 12/26/18 Range/Units 07:39 WBC 11.9 H (4.5-11.0) K/mm3 RBC 3.07 L (3.65-5.03) M/mm3 Hgb 9.4 L (11.8-15.2) gm/dl Hct 28.7 L (35.5-45.6) % Plt Count 153 (140-440) K/mm3 Comprehensive Metabolic Panel 12/26/18 Range/Units 07:39 Sodium 136 L (137-145) mmol/L Potassium 6.5 H* D (3.6-5.0) mmol/L Chloride 93.6 L (98-107) mmol/L Carbon Dioxide 26 (22-30) mmol/L BUN 71 H (9-20) mg/dL Creatinine 11.1 H (0.8-1.5) mg/dL Glucose 105 H (75-100) mg/dL Calcium 8.9 (8.4-10.2) mg/dL
--- NOTE | 2018-12-26 11:08 | Consultation ---
History of Present Illness - Reason for Consult Consult date: 12/26/18 Bilateral leg cellulitis Requesting physician: REBA CAREY - History of Present Illness This patient is a 48-year old man with a past medical history of polycystic k ideny disease, hypertension, recurrent ascities, end-stage renal disease with HD that presents in the ED on 12/22/18 with complaints of SOB and chest pain. He missed HD the previous day. Chest pain was reported in the epigastric area, sharp and intermittent, associated with cough and ambulation. Vascular was consulted for lymphedema of the lower extremities with associated pain. He underwent a deep venous evaluation with intravascular ultrasound by Dr. Du on 12/20/18. During that procedure, no stents were placed and there was no hemodynamically significant venous lesions. However, since that procedure, the patient has been leaking serous fluid from his puncture sites and his right th igh has pain and erythema. On admission WBC 6.1, Creatinine 15.5, Troponin 0.9, CK 1194, Temperature 97.8, HR 51, BP 157/98. Hepatitis panel nonreactive. Blood cultures are in progress. CXR no consolidation. General: no fever, chills , nightsweats, unintentional weight change, or change in appetite Cutaneous: no rash, pruritus Head: no headaches or injury Eyes: no changes in vision, eye pain, double vision Ears: no ear pain, ear discharge, ringing or hearing loss Nose: no nose bleeding, stuffiness Mouth & throat: no bleeding gums, no horseness, no dental problems, or swollen glands Neck: no pain, node enlargement/lumps, tyroid enlargement or tenderness Respiratory: + dry cough, no wheezing, sputum, hemoptysis, pleuritic chest pain Cardiovascular: no chest pain, leg edema, cyanosis, CRENSHAW, orthopnea Musculoskeletal: Right leg swelling and erythema. + bilateral thigh drainage, clear fluid. bilateral lower extremity blistering . Gastrointestinal: no nausea, vomiting, hematemesis, diarrhea, constipation, melena, bright red blood in stools, fecal incontinence, jaundice Genitourinary/Reproductive: no frequent urination, no dysuria, hematuria, incontinence Neurogical: no seizures, no headaches, no weakness, no paresthesias, no loss of speech or vision; no memory loss, no vertigo, no tremors, no numbness Psychiatric: stable mood; no excessive anxiety, sadness or moodiness Past History Past Medical History: anemia, ESRD, hypertension, other Past Surgical History: hernia repair (Paracentesis, Left upper extremity AV graft), Other Social history: lives with family ( and children). denies: smoking, alcohol abuse, prescription drug abuse, IV drug use Family history: other (mother had anxiety disorder, one brother of meningitis. He never met his father) Medications and Allergies Allergies Allergy/AdvReac Type Severity Reaction Status Date / Time labetalol Allergy Vomiting Verified 10/16/18 15:22 polystyrene sulfonate Allergy Unknown Verified 10/16/18 13:24 [From Kayexalate] tramadol [From Ultram] AdvReac Dizziness Verified 03/05/18 15:30 Home Medications Medication Instructions Recorded Confirmed Last Taken Type cloNIDine [Catapres] 0.2 mg PO BID #60 tablet 10/29/18 12/22/18 12/12/18 06:30 Rx 0.2mg oxyCODONE [roxiCODONE] 5 mg PO Q6HR PRN 12/22/18 12/22/18 Unknown History Active Meds: Active Medications Acetaminophen (Tylenol) 650 mg PO Q4H PRN PRN Reason: Pain MILD(1-3)/Fever >100.5/SWAIN Clonidine HCl (Catapres) 0.3 mg PO Q12HR [facility] Last Admin: 12/26/18 00:00 Dose: 0.3 mg Documented by: Enoxaparin Sodium (Lovenox) 30 mg SUB-Q QDAY [facility] Last Admin: 12/25/18 09:47 Dose: Not Given Documented by: Epoetin Bravo (Procrit) 10,000 unit IV JULIA PRN PRN Reason: for Hgb of less than 11 Last Admin: 12/25/18 17:22 Dose: 10,000 unit Documented by: Hydromorphone HCl (Dilaudid) 0.5 mg IV Q3H PRN PRN Reason: Pain , Severe (7-10) Last Admin: 12/26/18 00:27 Dose: 0.5 mg Documented by: Sodium Chloride (Nacl 0.9%) 100 mls @ 999 mls/hr IV JULIA PRN PRN Reason: Hypotension Ondansetron HCl (Zofran) 4 mg IV Q8H PRN PRN Reason: Nausea And Vomiting Last Admin: 12/24/18 09:22 Dose: 4 mg Documented by: Oxycodone HCl (Roxicodone) 5 mg PO Q6H PRN PRN Reason: Pain, moderate to severe Last Admin: 12/25/18 09:46 Dose: 5 mg Documented by: Sodium Chloride (Sodium Chloride Flush Syringe 10 Ml) 10 ml IV BID FOSTER Last Admin: 12/26/18 00:44 Dose: 10 ml Documented by: Sodium Chloride (Sodium Chloride Flush Syringe 10 Ml) 10 ml IV PRN PRN PRN Reason: LINE FLUSH Last Admin: 12/23/18 03:27 Dose: 10 ml Documented by: Physical Examination - Physical Exam Narrative exam: Constitutional: Alert, cooperative. mild acute distress Head, Ears, Nose: Normocephalic, atraumatic. External ears, nose normal Eyes: Conjunctivae/corneas clear. No icterus. No ptosis. Neck: Supple, no meningeal signs Oral: dentition fair. no thrush Cardiovascular: S1, S2 normal. Respiratory: Good air entry, clear to auscultation bilaterally GI: Soft, non-tender; bowel sounds normal. No peritoneal signs Musculoskeletal: Right leg edematous with erythema. + bilateral thigh drainage, clear fluid. bilateral lower extremity blistering . Skin: same as above Hem/Lymphatic: No palpable cervical or supraclavicular nodes. No lymphangitis Psych: Mood ok. Affect normal Neurological: Awake, alert, oriented. - Constitutional Vitals: Vital Signs Temp Pulse Resp BP Pulse Ox 98.2 F 66 18 162/73 90 12/26/18 08:25 12/26/18 08:25 12/26/18 08:25 12/26/18 08:25 12/26/18 08:25 Temperature -Last 24 Hours Temperature 98.2 F Temperature 98.2 F Temperature 98.5 F Temperature 99.0 F Temperature 98.5 F Temperature 98 F Temperature 98.9 F Results - Labs CBC & Chem 7: 12/26/18 07:39 12/26/18 13:21 Labs: Abnormal lab results 12/26/18 12/26/18 Range/Units 07:39 07:39 WBC 11.9 H (4.5-11.0) K/mm3 RBC 3.07 L (3.65-5.03) M/mm3 Hgb 9.4 L (11.8-15.2) gm/dl Hct 28.7 L (35.5-45.6) % RDW 17.3 H (13.2-15.2) % Sodium 136 L (137-145) mmol/L Potassium 6.5 H* D (3.6-5.0) mmol/L Chloride 93.6 L (98-107) mmol/L BUN 71 H (9-20) mg/dL Creatinine 11.1 H (0.8-1.5) mg/dL Glucose 105 H (75-100) mg/dL - Imaging and Cardiology Chest x-ray: report reviewed (no consolidation) Assessment and Plan Cultures 12/25/18 Blood: In progress A/P: 48-year oled man with a past medical history of polycystic kideny disease, hypertension, recurent ascities, end-stage renal disease with HD that presents in the ED on 12/22/18 with complaints of SOB and chest pain. He missed HD the previous day. Chest pain was reported in the epigastric are, sharp and intermittent, associated with cough and ambulation. Vascular was consulted for lymphedema of the lower extremities with associated pain. He underwent a deep venous evaluation with intravascular ultrasound by Dr. Du on 12/20/18.. During that procedure, no stents were placed and there was no hemodynamically significant venous lesions. However, since that procedure, the patient has been leaking serous fluid from his puncture sites and his right thigh has pain and erythema. Admitted with: 1. Leukocytois: etiology most likely right lower extremity cellultis. No fever. CXR no consolidation. Currently being treated with Vancomycin. 2. Right Lower extremity cellulitis: Severe lymphedema bilaterally: Bilateral leaking serous fluid from puncture sites, on thighs. S/p deep venous evaluation on 12/20/18. Will obtain cultures. 3. ESRD on HD: antibiotics renally dosed. Nephrology following 4. Acute on Chronic HF with exacerbation secondary to fluid overload 5. Anemia of Chronic disease 6. Polycystic Kidney disease 7. Cardiomyopathy Recommendations: -Continue Vancomycine PK dosing -Obtain thigh cultures -follow-up blood cultures [facility] M: [phone] O:[phone]
[2018-12-26] MEDS: CATAPRES PO SCH ×3 (11:27→21:26)
[2018-12-26] MEDS: LOVENOX SUB-Q SCH (11:29)
[2018-12-26] MEDS: ROXICODONE PO PRN ×2 (11:50→20:15)
--- NOTE | 2018-12-26 15:10 | Progress Note ---
Assessment and Plan Assessment and plan: Patient is a 48-year-old man with a history of Polycystic kidney disease, hypertension, recurrent ascites due to CHF, ESRD on Hemodialysis and PVD s/p recent vascular procedure performed by Dr. Castillo which involved bilateral venography of his lower extremities with intravascular ultrasound which demons trated no hemodynamically significant venous lesion. Since then, he has had leakage of fluid from his puncture sites. The right thigh has some erythema and pain associated with it concerning for cellulitis. 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 Follow-up on current diagnosis of leg cellulitis. No overnight events reported to me. Patient denies any chest pain, shortness breath, nausea/vomiting or severe headaches. Imaging, nursing note, chart, labs and old chart reviewed. Discussed with patient. Hospitalist Physical - Physical exam Narrative exam: Gen: WDWN, NAD, Awake, Alert, Orientated HEENT: NCAT, EOMI, PERRL, OP Clear Neck: supple, no adenopathy, no thyromegaly, no JVD CVS/Heart: RRR, normal S1S2, pulses present bilaterally Chest/Lungs: diminished, Symmetrical chest expansion, good air entry bilaterally GI/Abdomen: soft, distended, nontender, good bowel sounds, no guarding or rebound /Bladder: scrotal and uncirc penile edema with fluid leakage, no suprapubic tenderness, no CVA or paraspinal tenderness Extermity/Skin: anascarca, bilateral red, tender warm erythema thigh to knee right >left Neuro: CN 2-12 grossly intact, no new focal deficits Psych: calm - Constitutional Vitals: Temp Pulse Resp BP Pulse Ox 98.5 F 62 20 155/77 96 12/26/18 12:10 12/26/18 12:10 12/26/18 12:10 12/26/18 12:10 12/26/18 12:10 General appearance: Absent: mild distress Results - Labs CBC & Chem 7: 12/26/18 07:39 12/26/18 13:21 Labs: Laboratory Last Values WBC 11.9 K/mm3 (4.5-11.0) H 12/26/18 07:39 RBC 3.07 M/mm3 (3.65-5.03) L 12/26/18 07:39 Hgb 9.4 gm/dl (11.8-15.2) L 12/26/18 07:39 Hct 28.7 % (35.5-45.6) L 12/26/18 07:39 MCV 93 fl (84-94) 12/26/18 07:39 MCH 31 pg (28-32) 12/26/18 07:39 MCHC 33 % (32-34) 12/26/18 07:39 RDW 17.3 % (13.2-15.2) H 12/26/18 07:39 Plt Count 153 K/mm3 (140-440) 12/26/18 07:39 Lymph % (Auto) 17.5 % (13.4-35.0) 12/22/18 19:49 [place] % (Auto) [employer] 12/23/18 04:18 Eos % (Auto) 1.9 % (0.0-4.3) 12/22/18 19:49 Baso % (Auto) 1.0 % (0.0-1.8) 12/22/18 19:49 Lymph # 1.1 K/mm3 (1.2-5.4) L 12/22/18 19:49 [place] # 0.9 K/mm3 (0.0-0.8) H 12/22/18 19:49 Eos # 0.1 K/mm3 (0.0-0.4) 12/22/18 19:49 Baso # 0.1 K/mm3 (0.0-0.1) 12/22/18 19:49 Add Manual Diff Complete 12/23/18 04:18 Total Counted 100 12/23/18 04:18 Seg Neutrophils % 64.0 % (40.0-70.0) 12/22/18 19:49 Seg Neuts % (Manual) 71.0 % (40.0-70.0) H 12/23/18 04:18 0 % 12/23/18 04:18 17.0 % (13.4-35.0) 12/23/18 04:18 Reactive Lymphs % (Man) 0 % 12/23/18 04:18 10.0 % (0.0-7.3) H 12/23/18 04:18 2.0 % (0.0-4.3) 12/23/18 04:18 0 % (0.0-1.8) 12/23/18 04:18 0 % 12/23/18 04:18 0 % 12/23/18 04:18 0 % 12/23/18 04:18 0 % 12/23/18 04:18 Nucleated RBC % Not Reportable 12/23/18 04:18 Seg Neutrophils # 3.9 K/mm3 (1.8-7.7) 12/22/18 19:49 Seg Neutrophils # Man 3.9 K/mm3 (1.8-7.7) 12/23/18 04:18 Band Neutrophils # 0.0 K/mm3 12/23/18 04:18 0.9 K/mm3 (1.2-5.4) L 12/23/18 04:18 Abs React Lymphs (Man) 0.0 K/mm3 12/23/18 04:18 0.6 K/mm3 (0.0-0.8) 12/23/18 04:18 0.1 K/mm3 (0.0-0.4) 12/23/18 04:18 0.0 K/mm3 (0.0-0.1) 12/23/18 04:18 0.0 K/mm3 12/23/18 04:18 0.0 K/mm3 12/23/18 04:18 0.0 K/mm3 12/23/18 04:18 Blast Cells # 0.0 K/mm3 12/23/18 04:18 WBC Morphology Not Reportable 12/23/18 04:18 Hypersegmented Neuts Not Reportable 12/23/18 04:18 Hyposegmented Neuts Not Reportable 12/23/18 04:18 Hypogranular Neuts Not Reportable 12/23/18 04:18 Not Reportable 12/23/18 04:18 Not Reportable 12/23/18 04:18 Not Reportable 12/23/18 04:18 Not Reportable 12/23/18 04:18 Not Reportable 12/23/18 04:18 Not Reportable 12/23/18 04:18 Consistent w auto 12/23/18 04:18 Not Reportable 12/23/18 04:18 Plt Clumps, EDTA Not Reportable 12/23/18 04:18 Not Reportable 12/23/18 04:18 Not Reportable 12/23/18 04:18 Not Reportable 12/23/18 04:18 Plt Morphology Comment Not Reportable 12/23/18 04:18 RBC Morphology Not Reportable 12/23/18 04:18 Dimorphic RBCs Not Reportable 12/23/18 04:18 Not Reportable 12/23/18 04:18 Not Reportable 12/23/18 04:18 Not Reportable 12/23/18 04:18 1+ 12/23/18 04:18 Not Reportable 12/23/18 04:18 Not Reportable 12/23/18 04:18 Not Reportable 12/23/18 04:18 Not Reportable 12/23/18 04:18 Not Reportable 12/23/18 04:18 Not Reportable 12/23/18 04:18 Not Reportable 12/23/18 04:18 Not Reportable 12/23/18 04:18 Not Reportable 12/23/18 04:18 Not Reportable 12/23/18 04:18 Not Reportable 12/23/18 04:18 Not Reportable 12/23/18 04:18 Not Reportable 12/23/18 04:18 Not Reportable 12/23/18 04:18 Not Reportable 12/23/18 04:18 Acanthocytes (Spur) Not Reportable 12/23/18 04:18 Rouleaux Not Reportable 12/23/18 04:18 Not Reportable 12/23/18 04:18 Not Reportable 12/23/18 04:18 Not Reportable 12/23/18 04:18 Not Reportable 12/23/18 04:18 Hem Pathologist Commnt No 12/23/18 04:18 PT 18.3 Sec. (12.2-14.9) H 12/22/18 20:06 INR 1.56 (0.87-1.13) H 12/22/18 20:06 APTT 53.1 Sec. (24.2-36.6) H 12/22/18 20:06 Sodium 132 mmol/L (137-145) L 12/26/18 13:21 Potassium 6.0 mmol/L (3.6-5.0) H 12/26/18 13:21 Chloride 90.5 mmol/L (98-107) L 12/26/18 13:21 Carbon Dioxide 24 mmol/L (22-30) 12/26/18 13:21 24 mmol/L 12/26/18 13:21 BUN 70 mg/dL (9-20) H 12/26/18 13:21 10.8 mg/dL (0.8-1.5) H 12/26/18 13:21 Estimated GFR 6 ml/min 12/26/18 13:21 6 % 12/26/18 13:21 Glucose 98 mg/dL (75-100) 12/26/18 13:21 POC Glucose 100 (70-105) 12/22/18 20:58 Calcium 9.0 mg/dL (8.4-10.2) 12/26/18 13:21 0.60 mg/dL (0.1-1.2) 12/22/18 19:49 AST 16 units/L (5-40) 12/22/18 19:49 ALT 13 units/L (7-56) 12/22/18 19:49 64 units/L (35-129) 12/22/18 19:49 1224 units/L (55-170) H 12/23/18 04:18 CK-MB (CK-2) 28.0 ng/mL (0.0-4.0) H 12/23/18 04:18 CK-MB (CK-2) Rel Index 2.2 (0-4) 12/23/18 04:18 1.050 ng/mL (0.00-0.029) H* 12/23/18 04:18 NT-Pro-B Natriuret Pep > 87048 pg/mL (0-450) H 12/22/18 20:06 7.1 g/dL (6.3-8.2) 12/22/18 19:49 3.4 g/dL (3.9-5) L 12/22/18 19:49 0.9 % 12/22/18 19:49 Triglycerides 51 mg/dL (2-149) 12/22/18 20:06 Cholesterol 118 mg/dL (50-199) 12/22/18 20:06 69 mg/dL (50-130) 12/22/18 20:06 44 mg/dL (40-59) 12/22/18 20:06 2.68 % 12/22/18 20:06 Hepatitis A IgM Ab Non-reactive (NonReactive) 12/23/18 02:05 Hep Bs Antigen Non-reactive (Negative) 12/23/18 02:05 Hep B Core IgM Ab Non-reactive (NonReactive) 12/23/18 02:05 Non-reactive (NonReactive) 12/23/18 02:05 Active Medications - Current Medications Current Medications: Generic Name Dose Route Start Last Admin Trade Name Freq PRN Reason Stop Dose Admin Acetaminophen 650 mg 12/22/18 22:33 Tylenol PO Q4H PRN Pain MILD(1-3)/Fever >100.5/SWAIN Clonidine HCl 0.3 mg 12/24/18 22:00 12/26/18 11:27 Catapres PO 0.3 mg Q12HR FOSTER Administration Enoxaparin Sodium 30 mg 12/23/18 10:00 12/26/18 11:29 Lovenox SUB-Q 30 mg QDAY [facility] Administration Epoetin Bravo 10,000 unit 12/22/18 23:24 12/25/18 17:22 Procrit IV 10,000 unit JULIA PRN Administration for Hgb of less than 11 Hydromorphone HCl 0.5 mg 12/24/18 16:07 12/26/18 00:27 Dilaudid IV 0.5 mg Q3H PRN Administration Pain , Severe (7-10) Sodium Chloride 100 mls @ 999 mls/hr 12/23/18 14:24 Nacl 0.9% IV JULIA PRN Hypotension Ondansetron HCl 4 mg 12/22/18 22:33 12/24/18 09:22 Zofran IV 4 mg Q8H PRN Administration Nausea And Vomiting Oxycodone HCl 5 mg 12/23/18 10:56 12/26/18 11:50 Roxicodone PO 5 mg Q6H PRN Administration Pain, moderate to severe Sodium Chloride 10 ml 12/23/18 10:00 12/26/18 11:30 Sodium Chloride Flush Syringe 10 Ml IV 10 ml BID FOSTER Administration Sodium Chloride 10 ml 12/22/18 22:33 12/23/18 03:27 Sodium Chloride Flush Syringe 10 Ml IV 10 ml PRN PRN Administration LINE FLUSH
[2018-12-27] MEDS: ROXICODONE PO PRN ×2 (04:53→19:01)
--- NOTE | 2018-12-27 09:17 | Progress Note ---
Assessment and Plan Volume overload s/t missed dialysis Hyperkalemia Chronic Ascites RLL cellulitis Enlarged Polycystic Kidneys End-stage renal disease on hemodialysis Chronic systolic heart failure Nonischemic Cardiomyopathy EF 35-40% by echo 02/2018 no ischemia on MPI 12/2017 Hypertension Hypothyroidism Noncompliance Recommendations: Fluid/sodium restriction. Dialysis for fluid removal. Medical therapy for chronic systolic heart failure and nonischemic cardiomyopathy. Otherwise, conservative cardiac management. Subjective Date of service: 12/27/18 Interval history: Patient has no cardiac complaints; wants to go home. Objective Vital Signs Temp Pulse Pulse Resp Resp BP Pulse Ox 12/27/18 08:00 98.7 F 62 16 164/78 96 12/27/18 04:53 20 12/27/18 04:00 60 96 12/27/18 03:42 99.0 F 20 164/83 12/27/18 00:17 98.8 F 69 24 172/84 93 12/26/18 22:44 66 16 12/26/18 22:00 99 12/26/18 21:30 20 12/26/18 21:26 66 154/75 12/26/18 20:56 96 12/26/18 19:33 98.7 F 66 22 154/75 81 L 12/26/18 16:54 98.9 F 20 188/97 12/26/18 12:10 98.5 F 62 20 155/77 96 12/26/18 12:00 16 12/26/18 11:27 77 12/26/18 11:01 99 12/26/18 10:00 64 61 16 96 - Physical Examination General: No Apparent Distress HEENT: Positive: PERRL Neck: Positive: trachea midline Cardiac: Positive: Reg Rate and Rhythm Lungs: Positive: Decreased Breath Sounds Neuro: Positive: Grossly Intact Abdomen: Positive: Distended Extremities: Present: edema - Labs and Meds Comprehensive Metabolic Panel 12/26/18 Range/Units 13:21 Sodium 132 L (137-145) mmol/L Potassium 6.0 H (3.6-5.0) mmol/L Chloride 90.5 L (98-107) mmol/L Carbon Dioxide 24 (22-30) mmol/L BUN 70 H (9-20) mg/dL Creatinine 10.8 H (0.8-1.5) mg/dL Glucose 98 (75-100) mg/dL Calcium 9.0 (8.4-10.2) mg/dL - Allied health notes Allied health notes reviewed: nursing
[2018-12-27] MEDS: CATAPRES PO SCH ×2 (09:33→21:59)
[2018-12-27] MEDS: SODIUM CHLORIDE FLUSH SYRINGE 10 ML IV SCH ×2 (09:33→22:01)
[2018-12-27] MEDS: LOVENOX SUB-Q SCH (09:33)
--- NOTE | 2018-12-27 09:42 | Progress Note ---
Assessment and Plan - Patient Problems (1) ESRD (end stage renal disease) Current Visit: No Status: Acute Plan to address problem: We'll maintain on a Monday inpatient hemodialysis session. We'll continue to recommend extra dialysis sessions for isolated ultrafiltration. (2) Fluid overload Current Visit: Yes Status: Chronic Plan to address problem: Patient is chronically volume overloaded with a significant 2-3+ pitting edema and anasarca. Despite this he is convinced that he is at his dry weight. He refused dialysis today and is refusing any extra dialysis sessions other than his Monday schedule. We'll continue to monitor and follow- up. Discussed importance of fluid restrictions and low sodium diet. (3) Hypertensive chronic kidney disease with stage 5 chronic kidney disease or end stage renal disease Current Visit: Yes Status: Acute Plan to address problem: Continue current regimen. I discussed the patient that likely he has a significant volume overload component to his blood pressure control. He is still not agreeable to extra dialysis sessions for ultrafiltration to maintain a euvolemic state. (4) Hyperkalemia Current Visit: Yes Status: Acute Plan to address problem: Elevated potassium levels this morning noted. Received medical treatment with insulin D50 yesterday because patient refused to have an extra dialysis session. Discussed with the hemodialysis staff and patient did have full treatment today with plans for returning patient on 1K dialysate for the first hour with the remaining 2 hours on a 2K bath. (5) Ascites Current Visit: Yes Status: Acute Plan to address problem: Status post paracentesis about one week ago. We'll follow-up. (6) Chest pain Current Visit: Yes Status: Acute Plan to address problem: Management per primary attending. No acute complaints this morning. (7) Anemia in chronic kidney disease, on chronic dialysis Current Visit: Yes Status: Chronic Plan to address problem: Epogen with hemodialysis sessions. Subjective Date of service: 12/27/18 Interval history: No acute issues overnight. ID evaluation noted and patient continued on vancomycin. Pending oral antibiotic regimen prior to discharge. He will be getting dialysis this morning per his Monday schedule. Objective - Vital Signs Vital signs: Vital Signs - 12hr 12/26/18 12/26/18 12/27/18 22:00 22:44 00:17 Temperature 98.8 F Pulse Rate 66 69 Respiratory 24 Rate Respiratory 16 Rate [Left Flank] Blood Pressure 172/84 O2 Sat by Pulse 99 93 Oximetry 12/27/18 12/27/18 12/27/18 03:42 04:00 04:53 Temperature 99.0 F Pulse Rate 60 Respiratory 20 20 Rate Respiratory Rate [Left Flank] Blood Pressure 164/83 O2 Sat by Pulse 96 Oximetry 12/27/18 12/27/18 08:00 09:33 Temperature 98.7 F Pulse Rate 62 Respiratory 16 Rate Respiratory Rate [Left Flank] Blood Pressure 164/78 164/78 O2 Sat by Pulse 96 Oximetry - General Appearance General appearance: well-developed, well-nourished, appears stated age, obese EENT: ATNC, PERRL Neck: no JVD Respiratory: Present: Decreased Breath Sounds Cardiology: regular, S1S2 Gastrointestinal: normal, normoactive bowel sounds, distended Integumentary: erythema, hyperpigmentation, chronic venous stasis Neurologic: no focal deficit, no asterixis, alert and oriented x3 Musculoskeletal: other (2-3+ pitting edema) - Lab 12/26/18 07:39 12/26/18 13:21 Most recent lab results Calcium 9.0 mg/dL (8.4-10.2) 12/26/18 13:21 - Imaging Chest x-ray: report reviewed - Allied health notes Allied health notes reviewed: nursing Medications & Allergies - Medications Allergies/Adverse Reactions: Allergies labetalol Allergy (Verified 10/16/18 15:22) Vomiting pt also reports drastic drop in HR polystyrene sulfonate [From Kayexalate] Allergy (Verified 10/16/18 13:24) Unknown tramadol [From Ultram] Adverse Reaction (Verified 03/05/18 15:30) Dizziness Home Medications: Home Medications Medication Instructions Recorded Confirmed Last Taken Type cloNIDine [Catapres] 0.2 mg PO BID #60 tablet 10/29/18 12/22/18 12/12/18 06:30 R x 0.2mg oxyCODONE [roxiCODONE] 5 mg PO Q6HR PRN 12/22/18 12/22/18 Unknown History Active Medications: Generic Name Dose Route Start Last Admin Trade Name Freq PRN Reason Stop Dose Admin Acetaminophen 650 mg 12/22/18 22:33 Tylenol PO Q4H PRN Pain MILD(1-3)/Fever >100.5/SWAIN Clonidine HCl 0.3 mg 12/24/18 22:00 12/27/18 09:33 Catapres PO Not Given Q12HR [facility] Enoxaparin Sodium 30 mg 12/23/18 10:00 12/27/18 09:33 Lovenox SUB-Q 30 mg QDAY FOSTER Administration Epoetin Bravo 10,000 unit 12/22/18 23:24 12/25/18 17:22 Procrit IV 10,000 unit JULIA PRN Administration for Hgb of less than 11 Hydromorphone HCl 0.5 mg 12/24/18 16:07 12/26/18 21:30 Dilaudid IV 0.5 mg Q3H PRN Administration Pain , Severe (7-10) Sodium Chloride 100 mls @ 999 mls/hr 12/23/18 14:24 Nacl 0.9% IV JULIA PRN Hypotension Ondansetron HCl 4 mg 12/22/18 22:33 12/24/18 09:22 Zofran IV 4 mg Q8H PRN Administration Nausea And Vomiting Oxycodone HCl 5 mg 12/23/18 10:56 12/27/18 04:53 Roxicodone PO 5 mg Q6H PRN Administration Pain, moderate to severe Sodium Chloride 10 ml 12/23/18 10:00 12/27/18 09:33 Sodium Chloride Flush Syringe 10 Ml IV 10 ml BID FOSTER Administration Sodium Chloride 10 ml 12/22/18 22:33 12/23/18 03:27 Sodium Chloride Flush Syringe 10 Ml IV 10 ml PRN PRN Administration LINE FLUSH
--- NOTE | 2018-12-27 09:45 | Progress Note ---
Assessment and Plan Cultures 12/25/18 Blood: In progress 12/26/18 Right thigh: GNR 12/26/18 Left Thigh: GNR A/P: 48-year oled man with a past medical history of polycystic kidney disease, hypertension, recurent ascities, end-stage renal disease with HD that presents in the ED on 12/22/18 with complaints of SOB and chest pain. He missed HD the previous day. Chest pain was reported in the epigastric are, sharp and intermittent, associated with cough and ambulation. Vascular was consulted for lymphedema of the lower extremities with associated pain. He underwent a deep venous evaluation with intravascular ultrasound by Dr. Du on 12/20/18.. During that procedure, no stents were placed and there was no hemodynamically significant venous lesions. However, since that procedure, the patient has been leaking serous fluid from his puncture sites and his right thigh has pain and erythema. Admitted with: 1. Leukocytois: etiology most likely right lower extremity cellultis. No fever. CXR no consolidation. Currently being treated with Vancomycin. 2. Right Lower extremity cellulitis: Severe lymphedema bilaterally: Bilateral leaking serous fluid from puncture sites, on thighs. S/p deep venous evaluation on 12/20/18. Bilateral thigh cultures grew GNR. Will follow up ID and susceptibility. 3. ESRD on HD: antibiotics renally dosed. Nephrology following 4. Acute on Chronic HF with exacerbation secondary to fluid overload 5. Anemia of Chronic disease 6. Polycystic Kidney disease 7. Cardiomyopathy Recommendations: -Continue Vancomycine PK dosing -follow-up thigh cultures for ID and Susceptibility -follow-up blood cultures [facility] M: [id number] O:[phone] Subjective Date of service: 12/27/18 Interval history: Patient seen and examined in HD. Reports less swelling and pain. No fevers. Objective - Exam Narrative Exam: Constitutional: Alert, cooperative. mild acute distress Head, Ears, Nose: Normocephalic, atraumatic. External ears, nose normal Eyes: Conjunctivae/corneas clear. No icterus. No ptosis. Neck: Supple, no meningeal signs Oral: dentition fair. no thrush Cardiovascular: S1, S2 normal. Respiratory: Good air entry, clear to auscultation bilaterally GI: Soft, non-tender; bowel sounds normal. No peritoneal signs Musculoskeletal: Right leg edematous with erythema, Improved. continued bilat eral thigh drainage > on left. + dressing Skin: same as above Hem/Lymphatic: No palpable cervical or supraclavicular nodes. No lymphangitis Psych: Mood ok. Affect normal Neurological: Awake, alert, oriented. - Constitutional Vitals: Vital Signs Temp Pulse Resp BP Pulse Ox 98.7 F 62 16 164/78 96 12/27/18 08:00 12/27/18 08:00 12/27/18 08:00 12/27/18 09:33 12/27/18 08:00 Temperature -Last 24 Hours Temperature 98.7 F Temperature 99.0 F Temperature 98.8 F Temperature 98.7 F Temperature 98.9 F Temperature 98.5 F - Labs CBC & Chem 7: 12/27/18 10:21 12/26/18 13:21 Labs: Abnormal lab results 12/26/18 Range/Units 13:21 Sodium 132 L (137-145) mmol/L Potassium 6.0 H (3.6-5.0) mmol/L Chloride 90.5 L (98-107) mmol/L BUN 70 H (9-20) mg/dL Creatinine 10.8 H (0.8-1.5) mg/dL
[2018-12-27 10:57] LABS: Basophils # (Auto) 0.1 K/mm3 (0.0-0.1); Basophils % (Auto) 0.3 % (0.0-1.8); Eosinophils % (Auto) 0.3 % (0.0-4.3); Hematocrit 30.5 % (35.5-45.6); Hemoglobin 9.6 gm/dl (11.8-15.2); Lymphocytes % (Auto) 6.6 % (13.4-35.0); Mean Corpuscular HGB Conc 31 % (32-34); Mean Corpuscular Volume 96 fl (84-94); Monocytes # (Auto) 1.3 K/mm3 (0.0-0.8); Monocytes % (Auto) 8.2 % (0.0-7.3); Platelet Count 185 K/mm3 (140-440); Red Blood Count 3.18 M/mm3 (3.65-5.03)
--- NOTE | 2018-12-27 14:10 | Progress Note ---
Assessment and Plan Assessment and plan: Patient is a 48-year-old man with a history of Polycystic kidney disease, hypertension, recurrent ascites due to CHF, ESRD on Hemodialysis and PVD s/p recent vascular procedure performed by Dr. Castillo which involved bilateral venography of his lower extremities with intravascular ultrasound which demons trated no hemodynamically significant venous lesion. Since then, he has had leakage of fluid from his puncture sites. The right thigh has some erythema and pain associated with it concerning for cellulitis. 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 Await finalization of thigh wound and ID final recommendation in order to discharge History Interval history: Patient was seen and examined. Follow-up on current diagnosis of leg cellulitis. No overnight events reported to me. Patient denies any chest pain, shortness breath, nausea/vomiting or severe headaches. Imaging, nursing note, chart, labs and old chart reviewed. Discussed with patient. Hospitalist Physical - Physical exam Narrative exam: Gen: WDWN, NAD, Awake, Alert, Orientated HEENT: NCAT, EOMI, PERRL, OP Clear Neck: supple, no adenopathy, no thyromegaly, no JVD CVS/Heart: RRR, normal S1S2, pulses present bilaterally Chest/Lungs: diminished, Symmetrical chest expansion, good air entry bilaterally GI/Abdomen: soft, distended, nontender, good bowel sounds, no guarding or rebound /Bladder: scrotal and uncirc penile edema with fluid leakage, no suprapubic tenderness, no CVA or paraspinal tenderness Extermity/Skin: anascarca, bilateral red, tender warm erythema thigh to knee right >left Neuro: CN 2-12 grossly intact, no new focal deficits Psych: calm - Constitutional Vitals: Temp Pulse Resp BP Pulse Ox 98.7 F 72 16 164/78 96 12/27/18 08:00 12/27/18 14:06 12/27/18 08:00 12/27/18 09:33 12/27/18 08:00 General appearance: Absent: mild distress Results - Labs CBC & Chem 7: 12/27/18 10:21 12/26/18 13:21 Labs: Laboratory Last Values WBC 15.9 K/mm3 (4.5-11.0) H 12/27/18 10:21 RBC 3.18 M/mm3 (3.65-5.03) L 12/27/18 10:21 Hgb 9.6 gm/dl (11.8-15.2) L 12/27/18 10:21 Hct 30.5 % (35.5-45.6) L 12/27/18 10:21 MCV 96 fl (84-94) H 12/27/18 10:21 MCH 30 pg (28-32) 12/27/18 10:21 MCHC 31 % (32-34) L 12/27/18 10:21 RDW 17.0 % (13.2-15.2) H 12/27/18 10:21 Plt Count 185 K/mm3 (140-440) 12/27/18 10:21 Lymph % (Auto) 6.6 % (13.4-35.0) L 12/27/18 10:21 [place] % (Auto) 8.2 % (0.0-7.3) H 12/27/18 10:21 Eos % (Auto) 0.3 % (0.0-4.3) 12/27/18 10:21 Baso % (Auto) 0.3 % (0.0-1.8) 12/27/18 10:21 Lymph # 1.0 K/mm3 (1.2-5.4) L 12/27/18 10:21 [place] # 1.3 K/mm3 (0.0-0.8) H 12/27/18 10:21 Eos # 0.0 K/mm3 (0.0-0.4) 12/27/18 10:21 Baso # 0.1 K/mm3 (0.0-0.1) 12/27/18 10:21 Add Manual Diff Complete 12/23/18 04:18 Total Counted 100 12/23/18 04:18 Seg Neutrophils % 84.6 % (40.0-70.0) H 12/27/18 10:21 Seg Neuts % (Manual) 71.0 % (40.0-70.0) H 12/23/18 04:18 0 % 12/23/18 04:18 17.0 % (13.4-35.0) 12/23/18 04:18 Reactive Lymphs % (Man) 0 % 12/23/18 04:18 10.0 % (0.0-7.3) H 12/23/18 04:18 2.0 % (0.0-4.3) 12/23/18 04:18 0 % (0.0-1.8) 12/23/18 04:18 0 % 12/23/18 04:18 0 % 12/23/18 04:18 0 % 12/23/18 04:18 0 % 12/23/18 04:18 Nucleated RBC % Not Reportable 12/23/18 04:18 Seg Neutrophils # 13.5 K/mm3 (1.8-7.7) H 12/27/18 10:21 Seg Neutrophils # Man 3.9 K/mm3 (1.8-7.7) 12/23/18 04:18 Band Neutrophils # 0.0 K/mm3 12/23/18 04:18 0.9 K/mm3 (1.2-5.4) L 12/23/18 04:18 Abs React Lymphs (Man) 0.0 K/mm3 12/23/18 04:18 0.6 K/mm3 (0.0-0.8) 12/23/18 04:18 0.1 K/mm3 (0.0-0.4) 12/23/18 04:18 0.0 K/mm3 (0.0-0.1) 12/23/18 04:18 0.0 K/mm3 12/23/18 04:18 0.0 K/mm3 12/23/18 04:18 0.0 K/mm3 12/23/18 04:18 Blast Cells # 0.0 K/mm3 12/23/18 04:18 WBC Morphology Not Reportable 12/23/18 04:18 Hypersegmented Neuts Not Reportable 12/23/18 04:18 Hyposegmented Neuts Not Reportable 12/23/18 04:18 Hypogranular Neuts Not Reportable 12/23/18 04:18 Not Reportable 12/23/18 04:18 Not Reportable 12/23/18 04:18 Not Reportable 12/23/18 04:18 Not Reportable 12/23/18 04:18 Not Reportable 12/23/18 04:18 Not Reportable 12/23/18 04:18 Consistent w auto 12/23/18 04:18 Not Reportable 12/23/18 04:18 Plt Clumps, EDTA Not Reportable 12/23/18 04:18 Not Reportable 12/23/18 04:18 Not Reportable 12/23/18 04:18 Not Reportable 12/23/18 04:18 Plt Morphology Comment Not Reportable 12/23/18 04:18 RBC Morphology Not Reportable 12/23/18 04:18 Dimorphic RBCs Not Reportable 12/23/18 04:18 Not Reportable 12/23/18 04:18 Not Reportable 12/23/18 04:18 Not Reportable 12/23/18 04:18 1+ 12/23/18 04:18 Not Reportable 12/23/18 04:18 Not Reportable 12/23/18 04:18 Not Reportable 12/23/18 04:18 Not Reportable 12/23/18 04:18 Not Reportable 12/23/18 04:18 Not Reportable 12/23/18 04:18 Not Reportable 12/23/18 04:18 Not Reportable 12/23/18 04:18 Not Reportable 12/23/18 04:18 Not Reportable 12/23/18 04:18 Not Reportable 12/23/18 04:18 Not Reportable 12/23/18 04:18 Not Reportable 12/23/18 04:18 Not Reportable 12/23/18 04:18 Not Reportable 12/23/18 04:18 Acanthocytes (Spur) Not Reportable 12/23/18 04:18 Rouleaux Not Reportable 12/23/18 04:18 Not Reportable 12/23/18 04:18 Not Reportable 12/23/18 04:18 Not Reportable 12/23/18 04:18 Not Reportable 12/23/18 04:18 Hem Pathologist Commnt No 12/23/18 04:18 PT 18.3 Sec. (12.2-14.9) H 12/22/18 20:06 INR 1.56 (0.87-1.13) H 12/22/18 20:06 APTT 53.1 Sec. (24.2-36.6) H 12/22/18 20:06 Sodium 132 mmol/L (137-145) L 12/26/18 13:21 Potassium 6.0 mmol/L (3.6-5.0) H 12/26/18 13:21 Chloride 90.5 mmol/L (98-107) L 12/26/18 13:21 Carbon Dioxide 24 mmol/L (22-30) 12/26/18 13:21 24 mmol/L 12/26/18 13:21 BUN 70 mg/dL (9-20) H 12/26/18 13:21 10.8 mg/dL (0.8-1.5) H 12/26/18 13:21 Estimated GFR 6 ml/min 12/26/18 13:21 6 % 12/26/18 13:21 Glucose 98 mg/dL (75-100) 12/26/18 13:21 POC Glucose 100 (70-105) 12/22/18 20:58 Calcium 9.0 mg/dL (8.4-10.2) 12/26/18 13:21 0.60 mg/dL (0.1-1.2) 12/22/18 19:49 AST 16 units/L (5-40) 12/22/18 19:49 ALT 13 units/L (7-56) 12/22/18 19:49 64 units/L (35-129) 12/22/18 19:49 1224 units/L (55-170) H 12/23/18 04:18 CK-MB (CK-2) 28.0 ng/mL (0.0-4.0) H 12/23/18 04:18 CK-MB (CK-2) Rel Index 2.2 (0-4) 12/23/18 04:18 1.050 ng/mL (0.00-0.029) H* 12/23/18 04:18 NT-Pro-B Natriuret Pep > 16793 pg/mL (0-450) H 12/22/18 20:06 7.1 g/dL (6.3-8.2) 12/22/18 19:49 3.4 g/dL (3.9-5) L 12/22/18 19:49 0.9 % 12/22/18 19:49 Triglycerides 51 mg/dL (2-149) 12/22/18 20:06 Cholesterol 118 mg/dL (50-199) 12/22/18 20:06 69 mg/dL (50-130) 12/22/18 20:06 44 mg/dL (40-59) 12/22/18 20:06 2.68 % 12/22/18 20:06 Hepatitis A IgM Ab Non-reactive (NonReactive) 12/23/18 02:05 Hep Bs Antigen Non-reactive (Negative) 12/23/18 02:05 Hep B Core IgM Ab Non-reactive (NonReactive) 12/23/18 02:05 Non-reactive (NonReactive) 12/23/18 02:05 Active Medications - Current Medications Current Medications: Generic Name Dose Route Start Last Admin Trade Name Freq PRN Reason Stop Dose Admin Acetaminophen 650 mg 12/22/18 22:33 Tylenol PO Q4H PRN Pain MILD(1-3)/Fever >100.5/SWAIN Clonidine HCl 0.3 mg 12/24/18 22:00 12/27/18 09:33 Catapres PO Not Given Q12HR [facility] Enoxaparin Sodium 30 mg 12/23/18 10:00 12/27/18 09:33 Lovenox SUB-Q 30 mg QDAY FOSTER Administration Epoetin Bravo 10,000 unit 12/22/18 23:24 12/25/18 17:22 Procrit IV 10,000 unit JULIA PRN Administration for Hgb of less than 11 Hydromorphone HCl 0.5 mg 12/24/18 16:07 12/26/18 21:30 Dilaudid IV 0.5 mg Q3H PRN Administration Pain , Severe (7-10) Sodium Chloride 100 mls @ 999 mls/hr 12/23/18 14:24 Nacl 0.9% IV JULIA PRN Hypotension Ondansetron HCl 4 mg 12/22/18 22:33 12/24/18 09:22 Zofran IV 4 mg Q8H PRN Administration Nausea And Vomiting Oxycodone HCl 5 mg 12/23/18 10:56 12/27/18 04:53 Roxicodone PO 5 mg Q6H PRN Administration Pain, moderate to severe Sodium Chloride 10 ml 12/23/18 10:00 12/27/18 09:33 Sodium Chloride Flush Syringe 10 Ml IV 10 ml BID FOSTER Administration Sodium Chloride 10 ml 12/22/18 22:33 12/23/18 03:27 Sodium Chloride Flush Syringe 10 Ml IV 10 ml PRN PRN Administration LINE FLUSH
[2018-12-27] MEDS: DILAUDID IV PRN ×2 (15:37→22:43)
[2018-12-27] MEDS: MAXIPIME/NS 1 GM/100 ML 1 GM/100 ML BAG IV SCH (16:21)
[2018-12-28] MEDS: ROXICODONE PO PRN (04:38)
--- NOTE | 2018-12-28 06:46 | Progress Note ---
Assessment and Plan Assessment and plan: Patient is a 48-year-old man with a history of Polycystic kidney disease, hypertension, recurrent ascites due to CHF, ESRD on Hemodialysis and PVD s/p recent vascular procedure performed by Dr. Castillo which involved bilateral venography of his lower extremities with intravascular ultrasound which demons trated no hemodynamically significant venous lesion. Since then, he has had leakage of fluid from his puncture sites. The right thigh has some erythema and pain associated with it concerning for cellulitis. 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 Await finalization of thigh wound and ID final recommendation in order to discharge History Interval history: Patient was seen and examined. Follow-up on current diagnosis of leg cellulitis. No overnight events reported to me. Patient denies any chest pain, shortness breath, nausea/vomiting or severe headaches. Imaging, nursing note, chart, labs and old chart reviewed. Discussed with patient. Hospitalist Physical - Physical exam Narrative exam: Gen: WDWN, NAD, Awake, Alert, Orientated HEENT: NCAT, EOMI, PERRL, OP Clear Neck: supple, no adenopathy, no thyromegaly, no JVD CVS/Heart: RRR, normal S1S2, pulses present bilaterally Chest/Lungs: diminished, Symmetrical chest expansion, good air entry bilaterally GI/Abdomen: soft, distended, nontender, good bowel sounds, no guarding or rebound /Bladder: scrotal and uncirc penile edema with fluid leakage, no suprapubic tenderness, no CVA or paraspinal tenderness Extermity/Skin: anascarca, bilateral red, tender warm erythema thigh to knee right >left Neuro: CN 2-12 grossly intact, no new focal deficits Psych: calm - Constitutional Vitals: Temp Pulse Resp BP Pulse Ox 98.3 F 67 20 168/86 91 12/28/18 05:10 12/28/18 05:09 12/28/18 05:09 12/28/18 05:09 12/28/18 05:09 General appearance: Absent: mild distress Results - Labs CBC & Chem 7: 12/27/18 10:21 12/26/18 13:21 Labs: Laboratory Last Values WBC 15.9 K/mm3 (4.5-11.0) H 12/27/18 10:21 RBC 3.18 M/mm3 (3.65-5.03) L 12/27/18 10:21 Hgb 9.6 gm/dl (11.8-15.2) L 12/27/18 10:21 Hct 30.5 % (35.5-45.6) L 12/27/18 10:21 MCV 96 fl (84-94) H 12/27/18 10:21 MCH 30 pg (28-32) 12/27/18 10:21 MCHC 31 % (32-34) L 12/27/18 10:21 RDW 17.0 % (13.2-15.2) H 12/27/18 10:21 Plt Count 185 K/mm3 (140-440) 12/27/18 10:21 Lymph % (Auto) 6.6 % (13.4-35.0) L 12/27/18 10:21 [place] % (Auto) 8.2 % (0.0-7.3) H 12/27/18 10:21 Eos % (Auto) 0.3 % (0.0-4.3) 12/27/18 10:21 Baso % (Auto) 0.3 % (0.0-1.8) 12/27/18 10:21 Lymph # 1.0 K/mm3 (1.2-5.4) L 12/27/18 10:21 [place] # 1.3 K/mm3 (0.0-0.8) H 12/27/18 10:21 Eos # 0.0 K/mm3 (0.0-0.4) 12/27/18 10:21 Baso # 0.1 K/mm3 (0.0-0.1) 12/27/18 10:21 Add Manual Diff Complete 12/23/18 04:18 Total Counted 100 12/23/18 04:18 Seg Neutrophils % 84.6 % (40.0-70.0) H 12/27/18 10:21 Seg Neuts % (Manual) 71.0 % (40.0-70.0) H 12/23/18 04:18 0 % 12/23/18 04:18 17.0 % (13.4-35.0) 12/23/18 04:18 Reactive Lymphs % (Man) 0 % 12/23/18 04:18 10.0 % (0.0-7.3) H 12/23/18 04:18 2.0 % (0.0-4.3) 12/23/18 04:18 0 % (0.0-1.8) 12/23/18 04:18 0 % 12/23/18 04:18 0 % 12/23/18 04:18 0 % 12/23/18 04:18 0 % 12/23/18 04:18 Nucleated RBC % Not Reportable 12/23/18 04:18 Seg Neutrophils # 13.5 K/mm3 (1.8-7.7) H 12/27/18 10:21 Seg Neutrophils # Man 3.9 K/mm3 (1.8-7.7) 12/23/18 04:18 Band Neutrophils # 0.0 K/mm3 12/23/18 04:18 0.9 K/mm3 (1.2-5.4) L 12/23/18 04:18 Abs React Lymphs (Man) 0.0 K/mm3 12/23/18 04:18 0.6 K/mm3 (0.0-0.8) 12/23/18 04:18 0.1 K/mm3 (0.0-0.4) 12/23/18 04:18 0.0 K/mm3 (0.0-0.1) 12/23/18 04:18 0.0 K/mm3 12/23/18 04:18 0.0 K/mm3 12/23/18 04:18 0.0 K/mm3 12/23/18 04:18 Blast Cells # 0.0 K/mm3 12/23/18 04:18 WBC Morphology Not Reportable 12/23/18 04:18 Hypersegmented Neuts Not Reportable 12/23/18 04:18 Hyposegmented Neuts Not Reportable 12/23/18 04:18 Hypogranular Neuts Not Reportable 12/23/18 04:18 Not Reportable 12/23/18 04:18 Not Reportable 12/23/18 04:18 Not Reportable 12/23/18 04:18 Not Reportable 12/23/18 04:18 Not Reportable 12/23/18 04:18 Not Reportable 12/23/18 04:18 Consistent w auto 12/23/18 04:18 Not Reportable 12/23/18 04:18 Plt Clumps, EDTA Not Reportable 12/23/18 04:18 Not Reportable 12/23/18 04:18 Not Reportable 12/23/18 04:18 Not Reportable 12/23/18 04:18 Plt Morphology Comment Not Reportable 12/23/18 04:18 RBC Morphology Not Reportable 12/23/18 04:18 Dimorphic RBCs Not Reportable 12/23/18 04:18 Not Reportable 12/23/18 04:18 Not Reportable 12/23/18 04:18 Not Reportable 12/23/18 04:18 1+ 12/23/18 04:18 Not Reportable 12/23/18 04:18 Not Reportable 12/23/18 04:18 Not Reportable 12/23/18 04:18 Not Reportable 12/23/18 04:18 Not Reportable 12/23/18 04:18 Not Reportable 12/23/18 04:18 Not Reportable 12/23/18 04:18 Not Reportable 12/23/18 04:18 Not Reportable 12/23/18 04:18 Not Reportable 12/23/18 04:18 Not Reportable 12/23/18 04:18 Not Reportable 12/23/18 04:18 Not Reportable 12/23/18 04:18 Not Reportable 12/23/18 04:18 Not Reportable 12/23/18 04:18 Acanthocytes (Spur) Not Reportable 12/23/18 04:18 Rouleaux Not Reportable 12/23/18 04:18 Not Reportable 12/23/18 04:18 Not Reportable 12/23/18 04:18 Not Reportable 12/23/18 04:18 Not Reportable 12/23/18 04:18 Hem Pathologist Commnt No 12/23/18 04:18 PT 18.3 Sec. (12.2-14.9) H 12/22/18 20:06 INR 1.56 (0.87-1.13) H 12/22/18 20:06 APTT 53.1 Sec. (24.2-36.6) H 12/22/18 20:06 Sodium 132 mmol/L (137-145) L 12/26/18 13:21 Potassium 6.0 mmol/L (3.6-5.0) H 12/26/18 13:21 Chloride 90.5 mmol/L (98-107) L 12/26/18 13:21 Carbon Dioxide 24 mmol/L (22-30) 12/26/18 13:21 24 mmol/L 12/26/18 13:21 BUN 70 mg/dL (9-20) H 12/26/18 13:21 10.8 mg/dL (0.8-1.5) H 12/26/18 13:21 Estimated GFR 6 ml/min 12/26/18 13:21 6 % 12/26/18 13:21 Glucose 98 mg/dL (75-100) 12/26/18 13:21 POC Glucose 100 (70-105) 12/22/18 20:58 Calcium 9.0 mg/dL (8.4-10.2) 12/26/18 13:21 0.60 mg/dL (0.1-1.2) 12/22/18 19:49 AST 16 units/L (5-40) 12/22/18 19:49 ALT 13 units/L (7-56) 12/22/18 19:49 64 units/L (35-129) 12/22/18 19:49 1224 units/L (55-170) H 12/23/18 04:18 CK-MB (CK-2) 28.0 ng/mL (0.0-4.0) H 12/23/18 04:18 CK-MB (CK-2) Rel Index 2.2 (0-4) 12/23/18 04:18 1.050 ng/mL (0.00-0.029) H* 12/23/18 04:18 NT-Pro-B Natriuret Pep > 21341 pg/mL (0-450) H 12/22/18 20:06 7.1 g/dL (6.3-8.2) 12/22/18 19:49 3.4 g/dL (3.9-5) L 12/22/18 19:49 0.9 % 12/22/18 19:49 Triglycerides 51 mg/dL (2-149) 12/22/18 20:06 Cholesterol 118 mg/dL (50-199) 12/22/18 20:06 69 mg/dL (50-130) 12/22/18 20:06 44 mg/dL (40-59) 12/22/18 20:06 2.68 % 12/22/18 20:06 Hepatitis A IgM Ab Non-reactive (NonReactive) 12/23/18 02:05 Hep Bs Antigen Non-reactive (Negative) 12/23/18 02:05 Hep B Core IgM Ab Non-reactive (NonReactive) 12/23/18 02:05 Non-reactive (NonReactive) 12/23/18 02:05 Active Medications - Current Medications Current Medications: Generic Name Dose Route Start Last Admin Trade Name Pinoq PRN Reason Stop Dose Admin Acetaminophen 650 mg 12/22/18 22:33 Tylenol PO Q4H PRN Pain MILD(1-3)/Fever >100.5/SWAIN Clonidine HCl 0.3 mg 12/24/18 22:00 12/27/18 21:59 Catapres PO 0.3 mg Q12HR FOSTER Administration Enoxaparin Sodium 30 mg 12/23/18 10:00 12/27/18 09:33 Lovenox SUB-Q 30 mg QDAY FOSTER Administration Epoetin Bravo 10,000 unit 12/22/18 23:24 12/25/18 17:22 Procrit IV 10,000 unit JULIA PRN Administration for Hgb of less than 11 Hydromorphone HCl 0.5 mg 12/24/18 16:07 12/27/18 22:43 Dilaudid IV 0.5 mg Q3H PRN Administration Pain , Severe (7-10) Sodium Chloride 100 mls @ 999 mls/hr 12/23/18 14:24 Nacl 0.9% IV JULIA PRN Hypotension Cefepime HCl 1 gm in 100 mls @ 200 mls/hr 12/27/18 16:00 12/27/18 16:21 Maxipime/Ns 1 Gm/100 Ml IV 200 mls/hr Q24H FOSTER Administration Protocol Ondansetron HCl 4 mg 12/22/18 22:33 12/24/18 09:22 Zofran IV 4 mg Q8H PRN Administration Nausea And Vomiting Oxycodone HCl 5 mg 12/23/18 10:56 12/28/18 04:38 Roxicodone PO 5 mg Q6H PRN Administration Pain, moderate to severe Sodium Chloride 10 ml 12/23/18 10:00 12/27/18 22:01 Sodium Chloride Flush Syringe 10 Ml IV 10 ml BID FOSTER Administration Sodium Chloride 10 ml 12/22/18 22:33 12/23/18 03:27 Sodium Chloride Flush Syringe 10 Ml IV 10 ml PRN PRN Administration LINE FLUSH
--- NOTE | 2018-12-28 09:32 | Progress Note ---
Assessment and Plan - Patient Problems (1) ESRD (end stage renal disease) Current Visit: No Status: Acute Plan to address problem: We'll maintain on a Monday inpatient hemodialysis session. We'll continue to recommend extra dialysis sessions for isolated ultrafiltration. (2) Fluid overload Current Visit: Yes Status: Chronic Plan to address problem: Patient is chronically volume overloaded with a significant 2-3+ pitting edema and anasarca. Despite this he is convinced that he is at his dry weight. He refused dialysis today and is refusing any extra dialysis sessions other than his Monday schedule. We'll continue to monitor and follow- up. Discussed importance of fluid restrictions and low sodium diet. (3) Hypertensive chronic kidney disease with stage 5 chronic kidney disease or end stage renal disease Current Visit: Yes Status: Acute Plan to address problem: Continue current regimen. I discussed the patient that likely he has a significant volume overload component to his blood pressure control. He is still not agreeable to extra dialysis sessions for ultrafiltration to maintain a euvolemic state. (4) Hyperkalemia Current Visit: Yes Status: Acute Plan to address problem: Encourage low K diet. Will run on 1k/2k baths with HD. (5) Ascites Current Visit: Yes Status: Acute Plan to address problem: Status post paracentesis about one week ago. We'll follow-up. (6) Chest pain Current Visit: Yes Status: Acute Plan to address problem: Management per primary attending. No acute complaints this morning. (7) Anemia in chronic kidney disease, on chronic dialysis Current Visit: Yes Status: Chronic Plan to address problem: Epogen with hemodialysis sessions. Subjective Date of service: 12/28/18 Interval history: No acute issues ivernight from a renal standpoint. Thigh/wound cultures growing gram (-) rods, now speciating klebsiella. Cefepime added by ID team. Objective - Vital Signs Vital signs: Vital Signs - 12hr 12/27/18 12/27/18 12/27/18 21:59 22:00 22:43 Temperature Pulse Rate 76 65 Respiratory 20 Rate Respiratory 16 Rate [Left Flank] Blood Pressure 194/90 O2 Sat by Pulse Oximetry 12/27/18 12/28/18 12/28/18 23:59 00:01 02:09 Temperature 99.8 F H Pulse Rate 65 65 Respiratory 20 Rate Respiratory 16 Rate [Left Flank] Blood Pressure 140/74 O2 Sat by Pulse 90 Oximetry 12/28/18 12/28/18 12/28/18 04:38 05:09 05:10 Temperature 98.3 F Pulse Rate 67 Respiratory 20 20 Rate Respiratory Rate [Left Flank] Blood Pressure 168/86 O2 Sat by Pulse 91 Oximetry 12/28/18 08:30 Temperature 98.2 F Pulse Rate 61 Respiratory 20 Rate Respiratory Rate [Left Flank] Blood Pressure 152/80 O2 Sat by Pulse 92 Oximetry - General Appearance General appearance: well-developed, well-nourished, appears stated age, obese EENT: PERRL Neck: no JVD, no thyromegaly Respiratory: Present: Decreased Breath Sounds Cardiology: regular, normal heart rate, S1S2 Gastrointestinal: normal, normoactive bowel sounds Integumentary: warm and dry, erythema, chronic venous stasis Neurologic: no focal deficit, no asterixis, alert and oriented x3 Musculoskeletal: other (2-3+ pitting edema ) Psychiatric: mood/affect appropriate, cooperative - Lab 12/27/18 10:21 12/26/18 13:21 Most recent lab results Calcium 9.0 mg/dL (8.4-10.2) 12/26/18 13:21 - Allied health notes Allied health notes reviewed: nursing Medications & Allergies - Medications Allergies/Adverse Reactions: Allergies labetalol Allergy (Verified 10/16/18 15:22) Vomiting pt also reports drastic drop in HR polystyrene sulfonate [From Kayexalate] Allergy (Verified 10/16/18 13:24) Unknown tramadol [From Ultram] Adverse Reaction (Verified 03/05/18 15:30) Dizziness Home Medications: Home Medications Medication Instructions Recorded Confirmed Last Taken Type cloNIDine [Catapres] 0.2 mg PO BID #60 tablet 10/29/18 12/22/18 12/12/18 06:30 Rx 0.2mg oxyCODONE [roxiCODONE] 5 mg PO Q6HR PRN 12/22/18 12/22/18 Unknown History Active Medications: Generic Name Dose Route Start Last Admin Trade Name Freq PRN Reason Stop Dose Admin Acetaminophen 650 mg 12/22/18 22:33 Tylenol PO Q4H PRN Pain MILD(1-3)/Fever >100.5/SWAIN Clonidine HCl 0.3 mg 12/24/18 22:00 12/27/18 21:59 Catapres PO 0.3 mg Q12HR FOSTER Administration Enoxaparin Sodium 30 mg 12/23/18 10:00 12/27/18 09:33 Lovenox SUB-Q 30 mg QDAY FOSTER Administration Epoetin Bravo 10,000 unit 12/22/18 23:24 12/25/18 17:22 Procrit IV 10,000 unit JULIA PRN Administration for Hgb of less than 11 Hydromorphone HCl 0.5 mg 12/24/18 16:07 12/27/18 22:43 Dilaudid IV 0.5 mg Q3H PRN Administration Pain , Severe (7-10) Sodium Chloride 100 mls @ 999 mls/hr 12/23/18 14:24 Nacl 0.9% IV JULIA PRN Hypotension Cefepime HCl 1 gm in 100 mls @ 200 mls/hr 12/27/18 16:00 12/27/18 16:21 Maxipime/Ns 1 Gm/100 Ml IV 200 mls/hr Q24H FOSTER Administration Protocol Ondansetron HCl 4 mg 12/22/18 22:33 12/24/18 09:22 Zofran IV 4 mg Q8H PRN Administration Nausea And Vomiting Oxycodone HCl 5 mg 12/23/18 10:56 12/28/18 04:38 Roxicodone PO 5 mg Q6H PRN Administration Pain, moderate to severe Sodium Chloride 10 ml 12/23/18 10:00 12/27/18 22:01 Sodium Chloride Flush Syringe 10 Ml IV 10 ml BID FOSTER Administration Sodium Chloride 10 ml 12/22/18 22:33 12/23/18 03:27 Sodium Chloride Flush Syringe 10 Ml IV 10 ml PRN PRN Administration LINE FLUSH
[2018-12-28] MEDS: CATAPRES PO SCH ×2 (09:56→09:57)
[2018-12-28] MEDS: LOVENOX SUB-Q SCH (09:56)
[2018-12-28] MEDS: SODIUM CHLORIDE FLUSH SYRINGE 10 ML IV SCH (09:57)
--- NOTE | 2018-12-28 09:59 | Progress Note ---
Assessment and Plan Cultures 12/25/18 Blood: No growth 12/26/18 Right thigh: Klebsiella 12/26/18 Left Thigh: Enterobacter A/P: 48-year oled man with a past medical history of polycystic kidney disease, hypertension, recurent ascities, end-stage renal disease with HD that presents in the ED on 12/22/18 with complaints of SOB and chest pain. He missed HD the previous day. Chest pain was reported in the epigastric are, sharp and int ermittent, associated with cough and ambulation. Vascular was consulted for lymphedema of the lower extremities with associated pain. He underwent a deep venous evaluation with intravascular ultrasound by Dr. Du on 12/20/18.. During that procedure, no stents were placed and there was no he modynamically significant venous lesions. However, since that procedure, the patient has been leaking serous fluid from his puncture sites and his right thigh has pain and erythema. Admitted with: 1. Leukocytois: Better. etiology most likely right lower extremity cellultis. Wound cultures with Klebsiella and Enterobacter,. Blood cultures no growth. No fever. CXR no consolidation. Currently being treated with Vancomycin.. Cefepime Added. 2. Right Lower extremity cellulitis: Severe lymphedema bilaterally: Bilateral leaking serous fluid from puncture sites, on thighs. S/p deep venous evaluation on 12/20/18. Right thigh culture Klebsiella, Left thigh culture Enterobacter. 3. ESRD on HD: antibiotics renally dosed. Nephrology following 4. Acute on Chronic HF with exacerbation secondary to fluid overload 5. Anemia of Chronic disease 6. Polycystic Kidney disease 7. Cardiomyopathy Recommendations: -Continue Vancomycine PK dosing -Continue Cefepime 1 gm IV every 24 hours -Anticipate discharge on Bactrim 1 DS daily for 2 weeks ending 01/11/19 -follow up ID clinic in 2 weeks (sent to owner) Dr. Costa will be rounding on Monday. Dr. Puga is publication distributor this weekend, please call for questions [phone]. [facility] M: [phone] O:[phone] Subjective Date of service: 12/28/18 Interval history: Patient seen and examined. Reports less swelling and pain. No fevers. Objective - Exam Narrative Exam: Constitutional: Alert, cooperative. mild acute distress Head, Ears, Nose: Normocephalic, atraumatic. External ears, nose normal Eyes: Conjunctivae/corneas clear. No icterus. No ptosis. Neck: Supple, no meningeal signs Oral: dentition fair. no thrush Cardiovascular: S1, S2 normal. Respiratory: Good air entry, clear to auscultation bilaterally GI: Soft, non-tender; bowel sounds normal. No peritoneal signs Musculoskeletal: Right leg edematous with erythema, Improved. continued bilateral thigh drainage > on left. + dressing Skin: same as above Hem/Lymphatic: No palpable cervical or supraclavicular nodes. No lymphangitis Psych: Mood ok. Affect normal Neurological: Awake, alert, oriented. - Constitutional Vitals: Vital Signs Temp Pulse Resp BP Pulse Ox 98.2 F 61 20 152/80 92 12/28/18 08:30 12/28/18 08:30 12/28/18 08:30 12/28/18 08:30 12/28/18 08:30 Temperature -Last 24 Hours Temperature 98.2 F Temperature 98.3 F Temperature 99.8 F Temperature 99.5 F Temperature 98.2 F Temperature 98.2 F - Labs CBC & Chem 7: 12/28/18 10:27 12/26/18 13:21 Labs: Abnormal lab results 12/27/18 Range/Units 10:21 WBC 15.9 H (4.5-11.0) K/mm3 RBC 3.18 L (3.65-5.03) M/mm3 Hgb 9.6 L (11.8-15.2) gm/dl Hct 30.5 L (35.5-45.6) % MCV 96 H (84-94) fl MCHC 31 L (32-34) % RDW 17.0 H (13.2-15.2) % Lymph % (Auto) 6.6 L (13.4-35.0) % Knott % (Auto) 8.2 H (0.0-7.3) % Lymph # 1.0 L (1.2-5.4) K/mm3 Knott # 1.3 H (0.0-0.8) K/mm3 Seg Neutrophils % 84.6 H (40.0-70.0) % Seg Neutrophils # 13.5 H (1.8-7.7) K/mm3
--- NOTE | 2018-12-28 10:02 | Progress Note ---
Assessment and Plan Volume overload s/t missed dialysis Hyperkalemia Chronic Ascites RLL cellulitis Enlarged Polycystic Kidneys End-stage renal disease on hemodialysis Chronic systolic heart failure Nonischemic Cardiomyopathy EF 35-40% by echo 02/2018 no ischemia on MPI 12/2017 Hypertension Hypothyroidism Noncompliance Recommendations: Fluid/sodium restriction. Dialysis for fluid removal. Medical therapy for chronic systolic heart failure and nonischemic cardiomyopathy. Otherwise, conservative cardiac management. Subjective Date of service: 12/28/18 Interval history: Patient has no cardiac complaints. No events on telemetry. Objective Vital Signs Temp Pulse Resp Resp BP Pulse Ox Pulse Ox 12/28/18 09:57 61 152/80 12/28/18 08:30 98.2 F 61 20 152/80 92 12/28/18 05:10 98.3 F 12/28/18 05:09 67 20 168/86 91 12/28/18 04:38 20 12/28/18 02:09 65 16 12/28/18 00:01 99.8 F H 12/27/18 23:59 65 20 140/74 90 12/27/18 22:43 20 12/27/18 22:00 65 16 12/27/18 21:59 76 194/90 12/27/18 20:47 94 12/27/18 19:51 99.5 F 12/27/18 19:48 76 20 194/90 93 12/27/18 14:15 98.2 F 70 18 193/98 12/27/18 14:06 72 12/27/18 14:00 68 193/99 12/27/18 13:45 67 180/89 12/27/18 13:30 67 180/82 12/27/18 13:15 67 186/95 12/27/18 13:00 64 175/85 12/27/18 12:45 69 179/94 12/27/18 12:30 68 183/95 12/27/18 12:15 72 173/96 12/27/18 12:00 70 184/89 12/27/18 11:45 70 190/94 12/27/18 11:30 67 191/92 12/27/18 11:15 68 182/90 12/27/18 11:00 98.2 F 68 18 181/90 99 12/27/18 10:45 97 - Physical Examination General: No Apparent Distress HEENT: Positive: PERRL Neck: Positive: trachea midline Cardiac: Positive: Reg Rate and Rhythm Lungs: Positive: Decreased Breath Sounds Neuro: Positive: Grossly Intact Abdomen: Positive: Distended Extremities: Present: edema - Labs and Meds CBC 12/27/18 Range/Units 10:21 WBC 15.9 H (4.5-11.0) K/mm3 RBC 3.18 L (3.65-5.03) M/mm3 Hgb 9.6 L (11.8-15.2) gm/dl Hct 30.5 L (35.5-45.6) % Plt Count 185 (140-440) K/mm3 Lymph # 1.0 L (1.2-5.4) K/mm3 Menard # 1.3 H (0.0-0.8) K/mm3 Eos # 0.0 (0.0-0.4) K/mm3 Baso # 0.1 (0.0-0.1) K/mm3 - Allied health notes Allied health notes reviewed: nursing
[2018-12-28 10:49] LABS: Basophils # (Auto) 0.1 K/mm3 (0.0-0.1); Basophils % (Auto) 0.6 % (0.0-1.8); Eosinophils # (Auto) 0.1 K/mm3 (0.0-0.4); Eosinophils % (Auto) 1.4 % (0.0-4.3); Hematocrit 27.6 % (35.5-45.6); Hemoglobin 9.1 gm/dl (11.8-15.2); Lymphocytes # (Auto) 0.6 K/mm3 (1.2-5.4); Lymphocytes % (Auto) 6.4 % (13.4-35.0); Mean Corpuscular HGB Conc 33 % (32-34); Mean Corpuscular Volume 93 fl (84-94); Monocytes # (Auto) 1.3 K/mm3 (0.0-0.8); Monocytes % (Auto) 13.9 % (0.0-7.3); Platelet Count 162 K/mm3 (140-440); Red Blood Count 2.98 M/mm3 (3.65-5.03); Red Cell Distribution Width 16.5 % (13.2-15.2)
--- NOTE | 2018-12-28 14:38 | Discharge Summary ---
Providers - Providers Date of Admission: 12/22/18 22:00 Date of discharge: 12/28/18 Attending physician: REBA CAREY 12/22/18 22:00 Consult to Physician [CONS] Stat Comment: Consulting Provider: MARILEE DESIR Physician Instructions: Reason For Exam: ESRD, HYPERKALEMIA, VOLUME OVERLOAD 12/23/18 10:57 Consult to Case Management [CONS] Routine Services Needed at Discharge: Software Implementation Specialist Notified:: case management Additional Physician Instructions: Multiple readmissions 12/23/18 13:55 Consult to Physician [CONS] Routine Comment: Consulting Provider: YELENA JO Physician Instructions: Reason For Exam: CHF 12/25/18 17:06 Consult to Physician [CONS] Routine Comment: Consulting Provider: BARB SANDERS Physician Instructions: I notified Reason For Exam: bilateral leg cellulitis s/p bilateral vas procedu Primary care physician: FRANKO GRANDE Hospitalization Condition: Fair Hospital course: Patient is a 48-year-old man with a history of Polycystic kidney disease, hypertension, recurrent ascites due to CHF, ESRD on Hemodialysis and PVD s/p recent vascular procedure performed by Dr. Castillo which involved bilateral venography of his lower extremities with intravascular ultrasound which demonstrated no hemodynamically significant venous lesion. Since then, he has had leakage of fluid from his puncture sites. The right thigh has some erythema and pain associated with it concerning for cellulitis. 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: Cardiology is following, input noted ESRD: Nephrology following for HD h/o Severe lymphedema bilaterally Anemia of chronic renal disease: monitor CBC closely Polycystic kidney disease by history Ascites with recurrent paracentesis for therapeutic relief: consider paracentesis if he becomes symptomatic Noncompliance; service counselor on compliance to allow Ultrafiltration during HD and to take his medication, he is very argumentative Thigh wound culture growing -Enterobacter cloacae and Klebsiella oxytoca, ID recommends discharge on Bactrim 1 DS daily for 2 weeks ending 01/11/19 Patient demands to be discharge today Disposition: DC-01 TO HOME OR SELFCARE Time spent for discharge: 37 minutes Core Measure Documentation - Palliative Care Palliative Care/ Comfort Measures: Not Applicable - Core Measures Any of the following diagnoses?: none - VTE Discharge Requirements Deep Vein Thrombosis/Pulmonary Embolism Present on Admission: No Has pt received <5 days of overlap therapy or INR<2.0: No Anticoagulant overlap therapy prescribed at discharge: No Contraindication No Overlap Therapy order at DC: Not Indicated Exam - Physical Exam Narrative exam: Gen: WDWN, NAD, Awake, Alert, Orientated HEENT: NCAT, EOMI, PERRL, OP Clear Neck: supple, no adenopathy, no thyromegaly, no JVD CVS/Heart: RRR, normal S1S2, pulses present bilaterally Chest/Lungs: diminished, Symmetrical chest expansion, good air entry bilaterally GI/Abdomen: soft, distended, nontender, good bowel sounds, no guarding or rebound /Bladder: scrotal and uncirc penile edema with fluid leakage, no suprapubic tenderness, no CVA or paraspinal tenderness Extermity/Skin: anascarca, bilateral red, tender warm erythema thigh to knee right >left Neuro: CN 2-12 grossly intact, no new focal deficits Psych: calm - Constitutional Vitals: Temp Pulse Resp BP Pulse Ox 98.2 F 61 20 152/80 92 12/28/18 08:30 12/28/18 09:57 12/28/18 08:30 12/28/18 09:57 12/28/18 08:30 Plan Activity: other (no strenous activity unless cleared by PCP) Diet: renal Follow up with: FRANKO GRANDE MD [Primary Care Provider] - 3-5 Days BARB SANDERS MD [Staff Physician] - 7 Days MARILEE DESIR MD [Staff Physician] - 7 Days YELENA JO MD [Staff Physician] - 7 Days Prescriptions: Sulfamethoxazole/Trimethoprim [Bactrim DS TAB] 1 each PO DAILY #14 tablet cloNIDine [Catapres] 0.2 mg PO BID #60 tablet oxyCODONE [roxiCODONE] 5 mg PO Q6HR PRN #20 tablet PRN Reason: Pain , Severe (7-10)
[2018-12-28 14:44] VITALS: BP 199/100
[2018-12-28] MEDS: MAXIPIME/NS 1 GM/100 ML 1 GM/100 ML BAG IV SCH (16:00)
[2018-12-29] MEDS ORDERED: VANCOMYCIN 1,250 MG in NACL 0.9% 250ML 250 ML IV ONE (18:00)
== END 2018-12-28 16:20 | disposition home or self-care (01) | DRG 862 ==
LOC: ED 18:49 → 4A 22:00
PROVIDERS: ADMIT Internal Medicine; ATTEND Internal Medicine
PROC: 5A1D70Z Performance of Urinary Filtration, Intermittent, Less than 6 Hours Per Day (ICD-10-PCS; principal; 2018-12-22)
PROC: 5A1D70Z Performance of Urinary Filtration, Intermittent, Less than 6 Hours Per Day (ICD-10-PCS; 2018-12-23)
PROC: 5A1D70Z Performance of Urinary Filtration, Intermittent, Less than 6 Hours Per Day (ICD-10-PCS; 2018-12-25)
PROC: 5A1D70Z Performance of Urinary Filtration, Intermittent, Less than 6 Hours Per Day (ICD-10-PCS; 2018-12-27)
DX: T81.40XA Infection following a procedure, unspecified, initial encounter (principal); N18.6 End stage renal disease; I21.A1 Myocardial infarction type 2; I50.43 Acute on chronic combined systolic (congestive) and diastolic (congestive) heart failure; I13.2 Hypertensive heart and chronic kidney disease with heart failure and with stage 5 chronic kidney disease, or end stage renal disease; Q61.3 Polycystic kidney, unspecified; L03.116 Cellulitis of left lower limb; L03.115 Cellulitis of right lower limb; R18.8 Other ascites; I42.0 Dilated cardiomyopathy; E87.5 Hyperkalemia; E11.22 Type 2 diabetes mellitus with diabetic chronic kidney disease; Z99.2 Dependence on renal dialysis; I16.0 Hypertensive urgency; D63.1 Anemia in chronic kidney disease; M94.0 Chondrocostal junction syndrome [Tietze]; B96.89 Other specified bacterial agents as the cause of diseases classified elsewhere; Y83.8 Other surgical procedures as the cause of abnormal reaction of the patient, or of later complication, without mention of misadventure at the time of the procedure; Y92.89 Other specified places as the place of occurrence of the external cause
CPT/HCPCS: 36415; 71045; 80048; 80053; 80061; 80074; 80202; 82550; 82553; 82962; 83880; 84484; 85007; 85025; 85027; 85610; 85730; 87040; 87076; 87116; 87186; 93005; 93010; 93970; 94644; 94760; 96374; 96375; G0378; A6250; J0360; J0692; J0885; J1170; J1650; J1815; J2270; J2405; J2785; J3370; J7030; J7040

== ENCOUNTER 2019-01-03 07:31 | Day surgery (SDC) | payer MEDICARE ==
[2019-01-03] MEDS ORDERED: XYLOCAINE 1% 20 mL ONE (09:18)
[2019-01-03] MEDS ORDERED: ALBURX 25% (ALBUMIN) IV PRN (10:07)
--- NOTE | 2019-01-03 10:07 | Short Stay Summary ---
Short Stay Documentation Date of service: 01/03/19 - History Principal diagnosis: ascites Past Medical History: renal failure - Allergies and Medications Current Medications: Allergies labetalol Allergy (Verified 10/16/18 15:22) Vomiting pt also reports drastic drop in HR polystyrene sulfonate [From Kayexalate] Allergy (Verified 10/16/18 13:24) Unknown tramadol [From Ultram] Adverse Reaction (Verified 03/05/18 15:30) Dizziness Home Medications Medication Instructions Recorded Confirmed Last Taken Type Acetaminophen [Acetaminophen TAB] 650 mg PO Q4H PRN #15 tablet 12/28/18 01/03/19 1 Month Ago Rx ~12/03/18 Sulfamethoxazole/Trimethoprim 1 each PO DAILY #14 tablet 12/28/18 01/03/19 01/03/19 Rx [Bactrim DS TAB] cloNIDine [Catapres] 0.2 mg PO BID #60 tablet 12/28/18 01/03/19 01/03/19 Rx oxyCODONE [roxiCODONE] 5 mg PO Q6HR PRN #20 tablet 12/28/18 01/03/19 01/02/19 Rx - Physical exam General appearance: no acute distress Gastrointestinal: normoactive bowel sounds, distended - Brief post op/procedure progress note Date of procedure: 01/03/19 Pre-op diagnosis: ascites Post-op diagnosis: same Procedure: US paracentesis Anesthesia: local Findings: small ascites Surgeon: BARTOLOME IBRAHIM Estimated blood loss: none Pathology: none Specimen disposition: discarded Condition: stable - Disposition Condition at discharge: Good Disposition: DC-01 TO HOME OR SELFCARE Short Stay Discharge Plan Follow up with: FRANKO GRANDE MD [Primary Care Provider] - 7 Days
--- NOTE | 2019-01-03 10:12 | Ultrasound Report ---
ULTRASOUND-GUIDED PARACENTESIS HISTORY: Ascites. PROCEDURE: The risks (including but not limited to bleeding, infection, and bowel injury) and benefi ts were explained to the patient and informed consent was obtained. A time out procedure was perform ed. Ultrasound was used to evaluate the abdomen and locate the largest ascites fluid pocket. Once the sk in was marked, the procedure site was prepped and draped in the usual sterile fashion and lidocaine w as used for local anesthesia. A skin meka was made and a 5 Qatari centesis catheter was placed. The patient was monitored closely throughout the procedure, and a total of 2200 mL of clear yellow fluid was aspirated. No labs were requested by the ordering physician. The patient tolerated the procedure well with no complications. IMPRESSION: Successful ultrasound-guided paracentesis as described. Signer Name: Lavelle Aaron Jr, MD Signed: 01/03/2019 10:08 AM Workstation Name: [id number]
[2019-01-03 11:07] VITALS: BP 176/89
== END 2019-01-03 11:05 | disposition home or self-care (01) ==
LOC: CATHLABREC 07:31
PROVIDERS: ATTEND Internal Medicine Gastroenterology
DX: R18.8 Other ascites (principal); I13.2 Hypertensive heart and chronic kidney disease with heart failure and with stage 5 chronic kidney disease, or end stage renal disease; N18.6 End stage renal disease; I50.22 Chronic systolic (congestive) heart failure; F17.200 Nicotine dependence, unspecified, uncomplicated; I20.8 Other forms of angina pectoris; E66.9 Obesity, unspecified; Z68.36 Body mass index [BMI] 36.0-36.9, adult; Z91.19 Patient's noncompliance with other medical treatment and regimen; Z86.79 Personal history of other diseases of the circulatory system; Z87.440 Personal history of urinary (tract) infections; Z88.8 Allergy status to other drugs, medicaments and biological substances; Z79.899 Other long term (current) drug therapy; Z99.2 Dependence on renal dialysis; Z98.890 Other specified postprocedural states; Z53.20 Procedure and treatment not carried out because of patient's decision for unspecified reasons
CPT/HCPCS: 49083

== ENCOUNTER 2019-01-09 09:16 | Inpatient (IN) | payer MEDICARE ==
[2019-01-09 10:42] LABS: Hematocrit 28.6 % (35.5-45.6); Hemoglobin 9.1 gm/dl (11.8-15.2); Mean Corpuscular HGB Conc 32 % (32-34); Mean Corpuscular Volume 93 fl (84-94); Platelet Count 270 K/mm3 (140-440); Red Blood Count 3.09 M/mm3 (3.65-5.03); Red Cell Distribution Width 17.1 % (13.2-15.2)
[2019-01-09] MEDS ORDERED: CARDIZEM IV ONE (11:02)
[2019-01-09 11:05] LABS: Calcium 8.9 mg/dL (8.4-10.2)
--- NOTE | 2019-01-09 11:19 | XRay Report ---
CHEST 1 VIEW INDICATION: Dysrhythmia. COMPARISON: 12/22/2018 FINDINGS: Support devices: None. Heart: Moderate to severe cardiomegaly is stable. Lungs/Pleura: Moderate central pulmonary venous congestion is present. The lungs are grossly clear. N o large infiltrate, pleural effusion or pneumothorax. Additional findings: None. IMPRESSION: Cardiomegaly and pulmonary venous congestion. Signer Name: Lavelle Aaron Jr, MD Signed: 01/09/2019 11:14 AM Workstation Name: [id number]
[2019-01-09 11:23] LABS: Chol/HDL Ratio 2.65 %
--- NOTE | 2019-01-09 11:29 | Emergency Department Report ---
ED Chest Pain HPI - General Chief Complaint: Arrhythmia/Palpitations Stated Complaint: ABNORMAL HB/PRESSURE ON CHEST Time Seen by Provider: 01/09/19 10:28 Source: family, EMS Mode of arrival: Stretcher Limitations: No Limitations - History of Present Illness Initial Comments: 48-year-old end-stage renal failure patient on dialysis who was last dialyzed y esterday. He is apparently known to be poorly cooperative and "demanded discharge on 12/27/18. It appears he does not like to answer questions on my encounter. He is acting sleepy but tells me he slept well for the last 3 weeks. In any case he will not tell me whether its day or night and does not respond appropriately to simple questions. He does follow commands perfectly well. He will not tell me when he had the onset of a rapid irregular heart rate per se. I believe it may have occurred today. Her previous cardiology notes the patient has a nonischemic cardiomyopathy. He has an EF of 35-40. He has ascites. Paracentesis has been previously recommended but I am uncertain if he's ever had one. I don't think he is known to have a history of atrial fibrillation. However I did note that he had an enlarged left atrium on an echocardiogram done in past. He is not on anticoagulants or Plavix at this point. Initially the patient just wanted to talk about the fact that he is on a sulfur drugs for his legs. Apparently infectious disease recommended that he continue Bactrim for 2 weeks until the 16th of the current month for a thigh wound with mixed bacteria. The patient believes that either his Bactrim or carvedilol are causing a problem with his legs. He has a history of lymphedema and complaints of leg swelling but no itching. States his legs are somewhat red. He did not complain to me of chest pain. Later on he told the nurse his chest was hurting midsternal without radiation. When I went to see him again. No complaints of chest pain. Discharge summary 12/28/2018: Hospitalization Condition: Fair Hospital course: Patient is a 48-year-old man with a history of Polycystic kidney disease, hypertension, recurrent ascites due to CHF, ESRD on Hemodialysis and PVD s/p recent vascular procedure performed by Dr. Castillo which involved bilateral ve nography of his lower extremities with intravascular ultrasound which demonstrated no hemodynamically significant venous lesion. Since then, he has had leakage of fluid from his puncture sites. The right thigh has some erythema and pain associated with it concerning for cellulitis. 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: Cardiology is following, input noted ESRD: Nephrology following for HD h/o Severe lymphedema bilaterally Anemia of chronic renal disease: monitor CBC closely Polycystic kidney disease by history Ascites with recurrent paracentesis for therapeutic relief: consider paracentesis if he becomes symptomatic Noncompliance; family counselor on compliance to allow Ultrafiltration during HD and to take his medication, he is very argumentative Thigh wound culture growing -Enterobacter cloacae and Klebsiella oxytoca, ID recommends discharge on Bactrim 1 DS daily for 2 weeks ending 01/11/19 Severity scale (0 -10): 0 - Related Data Home Medications Medication Instructions Recorded Confirmed Last Taken Sevelamer Carbonate [Renvela] 800 mg PO TIDWM 01/09/19 01/09/19 Unknown Previous Rx's Medication Instructions Recorded Last Taken Type Acetaminophen [Acetaminophen TAB] 650 mg PO Q4H PRN #15 tablet 12/28/18 1 Month Ago Rx ~12/03/18 Sulfamethoxazole/Trimethoprim 1 each PO DAILY #14 tablet 12/28/18 01/03/19 Rx [Bactrim DS TAB] cloNIDine [Catapres] 0.2 mg PO BID #60 tablet 12/28/18 01/03/19 Rx oxyCODONE [roxiCODONE] 5 mg PO Q6HR PRN #20 tablet 12/28/18 01/02/19 Rx Allergies Allergy/AdvReac Type Severity Reaction Status Date / Time labetalol Allergy Vomiting Verified 10/16/18 15:22 polystyrene sulfonate Allergy Unknown Verified 10/16/18 13:24 [From Kayexalate] tramadol [From Ultram] AdvReac Dizziness Verified 03/05/18 15:30 Heart Score - HEART Score History: Slightly suspicious EKG: Non-specific Age: 45-65 Risk factors: 1-2 risk factors Troponin: 1-3x normal limit HEART Score: 4 - Critical Actions Critical Actions: 4-6 pts:12-16.6% risk of adverse cardiac event. Should be admi tted ED Review of Systems ROS: Stated complaint: ABNORMAL HB/PRESSURE ON CHEST Other details as noted in HPI Constitutional: weakness Respiratory: denies: shortness of breath, SOB with exertion Cardiovascular: chest pain, palpitations Endocrine: denies: excessive sweating, flushing Gastrointestinal: denies: abdominal pain, nausea, vomiting Skin: rash, change in color (redness), other (leg swelling) Neurological: denies: headache, weakness ED Past Medical Hx - Past Medical History Hx Hypertension: Yes Hx CVA: No Hx Heart Attack/AMI: No Hx Congestive Heart Failure: Yes (diastolic - CHRONIC , CARDIOMYOPATHY) Hx Diabetes: No Hx Deep Vein Thrombosis: No Hx Pulmonary Embolism: No Hx GERD: No Hx Liver Disease: No Hx Renal Disease: Yes (HD TTS) Hx Sickle Cell Disease: No Hx Arthritis: No Hx Headaches / Migraines: No Hx Seizures: No Hx Kidney Stones: No Hx Psychiatric Treatment: No Hx Asthma: No Hx COPD: No Hx Tuberculosis: No Hx Dementia: No Hx HIV: No Additional medical history: Abdominal Hernias, right groin hernia, ascites - Surgical History Hx Coronary Stent: No Hx Open Heart Surgery: No Hx Pacemaker: No Hx Internal Defibrillator: No Hx Cholecystectomy: No Hx Appendectomy: No Hx Breast Surgery: No Additional Surgical History: dialysis access left arm, groin hernia repair, - Social History Smoking Status: Never Smoker Substance Use Type: None - Medications Home Medications: Home Medications Medication Instructions Recorded Confirmed Last Taken Type Acetaminophen [Acetaminophen TAB] 650 mg PO Q4H PRN #15 tablet 12/28/18 01/09/19 1 Month Ago Rx ~12/03/18 Sulfamethoxazole/Trimethoprim 1 each PO DAILY #14 tablet 12/28/18 01/09/19 01/03/19 Rx [Bactrim DS TAB] cloNIDine [Catapres] 0.2 mg PO BID #60 tablet 12/28/18 01/09/19 01/03/19 Rx oxyCODONE [roxiCODONE] 5 mg PO Q6HR PRN #20 tablet 12/28/18 01/09/19 01/02/19 Rx Sevelamer Carbonate [Renvela] 800 mg PO TIDWM 01/09/19 01/09/19 Unknown History ED Physical Exam - General Limitations: No Limitations General appearance: alert, in no apparent distress - Head Head exam: Present: atraumatic, normocephalic - Eye Eye exam: Present: normal appearance. Absent: scleral icterus - ENT ENT exam: Present: mucous membranes moist - Neck Neck exam: Present: normal inspection. Absent: tenderness, meningismus - Respiratory Respiratory exam: Present: normal lung sounds bilaterally. Absent: respiratory distress - Cardiovascular Cardiovascular Exam: Present: tachycardia, irregular rhythm. Absent: systolic murmur, diastolic murmur, rubs, gallop - GI/Abdominal GI/Abdominal exam: Present: soft, distended, normal bowel sounds, other (ascites). Absent: tenderness, guarding, rebound, rigid - Rectal Rectal exam: Present: deferred - Extremities Exam Extremities exam: Present: other (lymphedema both legs somewhat erythematous I don't see any lymphangitis. There is a somewhat brawny vesicular/bullous eruption. I think this may be secondary to lymphedema.) - Back Exam Back exam: Present: normal inspection - Neurological Exam Neurological exam: Present: alert, oriented X3 - Psychiatric Psychiatric exam: Present: normal affect, normal mood - Skin Skin exam: Present: warm, dry, intact, normal color. Absent: rash ED Course Vital Signs 01/09/19 01/09/19 01/09/19 09:20 09:45 10:22 Temperature 98.4 F Pulse Rate 106 H 110 H 113 H Respiratory 20 19 Rate Blood Pressure 169/107 Blood Pressure 155/110 [Right] O2 Sat by Pulse 99 100 Oximetry 01/09/19 11:31 Temperature Pulse Rate 111 H Respiratory Rate Blood Pressure 157/99 Blood Pressure [Right] O2 Sat by Pulse Oximetry - Reevaluation(s) Reevaluation #1: Patient is selectively refusing all labs. I did order insulin and D50 to temporize his hyperkalemia. His EKG does show some mild peaking of the T waves but otherwise no signs of cardiac changes consistent with hyperkalemia. Does not appear to have acute ischemia. I did give him Cardizem and on recheck his heart rate is about 100 (95-105). I don't think he needs a Cardizem drip at this point. His work of breathing is normal. His chest x-ray shows moderately severe cardiomegaly and some decompensation but not pulmonary edema. I have spoke to Dr. De Leon and consult with him regarding the possibility of urgent dialysis. I spoke to Dr. Hodge and admitted the patient to Dr. Pina's service. Consult Dr. Wayne (cardiology). 01/09/19 12:16 ISAI score - Isai Score Age > 65: (0) No Aspirin use within the Past 7 Days: (0) No 3 or more CAD Risk Factors: (1) Yes 2 or more Angina events in past 24 hrs: (1) Yes Known CAD with more than 50% Stenosis: (0) No Elevated Cardiac Markers: (1) Yes ST Deviation Greater than 0.5mm: (0) No ISAI Score: 3 ED Medical Decision Making - Lab Data Result diagrams: 01/09/19 10:29 01/09/19 10:29 Laboratory Results - last 24 hr 01/09/19 01/09/19 10:29 10:29 WBC 5.9 RBC 3.09 L Hgb 9.1 L Hct 28.6 L MCV 93 MCH 29 MCHC 32 RDW 17.1 H Plt Count 270 Clark % (Auto) Casting Room Helper Sodium 140 Potassium 5.7 H Chloride 97.6 L Carbon Dioxide 24 Anion Gap 24 BUN 64 H Creatinine 11.5 H Estimated GFR 6 BUN/Creatinine Ratio 6 Glucose 101 H Calcium 8.9 Total Bilirubin 0.40 AST 19 ALT 14 Alkaline Phosphatase 88 Total Creatine Kinase 830 H CK-MB (CK-2) 16.0 H CK-MB (CK-2) Rel Index 1.9 Troponin T 0.818 H* Total Protein 7.2 Albumin 3.0 L Albumin/Globulin Ratio 0.7 Triglycerides 47 Cholesterol 117 LDL Cholesterol Direct 78 HDL Cholesterol 44 Cholesterol/HDL Ratio 2.65 - EKG Data -: EKG Interpreted by Me Rate: tachycardia - EKG Data Interpretation: other (atrial fibrillation with RVR. Perhaps slight peaking of the T waves and increased QT interval) - Radiology Data Radiology results: report reviewed Critical Care Time: Yes Critical care time in (mins) excluding proc time.: 60 Critical care attestation.: If time is entered above; I have spent that time in minutes in the direct care of this critically ill patient, excluding procedure time. ED Disposition Clinical Impression: Atrial fibrillation with RVR, End-stage renal disease needing dialysis, Hyperkalemia, Lymphedema Chest pain Qualifiers: Chest pain type: unspecified Qualified Code(s): R07.9 - Chest pain, unspecified CHF exacerbation Qualifiers: Heart failure type: combined systolic and diastolic Qualified Code(s): I50.43 - Acute on chronic combined systolic (congestive) and diastolic (congestive) heart failure Ascites Qualifiers: Ascites type: other type Qualified Code(s): R18.8 - Other ascites Disposition: DC-09 OP ADMIT IP TO THIS HOSP Is pt being admited?: Yes Does the pt Need Aspirin: Yes Condition: Stable Instructions: Chest Pain (ED) Referrals: ZHANE VAZQUEZ MD [Primary Care Provider] - 3-5 Days Time of Disposition: 12:21
[2019-01-09] MEDS ORDERED: NORCO 5/325 PO ONE (11:31)
[2019-01-09 11:45] LABS: INR 1.26 (0.87-1.13); Partial Thromboplastin Time 30.4 Sec. (24.2-36.6)
[2019-01-09] MEDS ORDERED: D50W (25GM) Syringe IV ONE (11:49)
[2019-01-09] MEDS ORDERED: HumuLIN R IV ONE (11:49)
[2019-01-09] MEDS ORDERED: NACL 0.9% 100 ML IV PRN (11:58)
[2019-01-09] MEDS ORDERED: ASPIRIN PO ONE (12:23)
[2019-01-09 12:24] LABS: Total Cells Counted 100
[2019-01-09 12:25] LABS: Anisocytosis Few; Ovalocytes Rare; Platelet Estimate Consistent w Auto; Poikilocytosis Few
--- NOTE | 2019-01-09 12:47 | Cat Scan Report ---
CT head/brain wo con INDICATION / CLINICAL INFORMATION: 48 years Male; ams. TECHNIQUE: Routine CT head without contrast. All CT scans at this location are performed using CT dos e reduction for ALARA by means of automated exposure control. COMPARISON: None. FINDINGS: BRAIN / INTRACRANIAL CONTENTS: No acute hemorrhage, mass effect, midline shift, hydrocephalus, or acu te, large territorial infarct. No chronic infarct or focal atrophy. Normal brain volume and ventricul ar/sulcal size for age. No significant white matter abnormality. CRANIOCERVICAL JUNCTION: No significant abnormality. ORBITS: No significant abnormality of visualized orbits. SINUSES / MASTOIDS: No significant abnormality of the visualized paranasal sinuses or mastoid air dexter ls. Old nasal bone fracture suggested on the left. ADDITIONAL FINDINGS: None. IMPRESSION: 1. No focal mass, hemorrhage, hydrocephalus, or acute, large territorial infarct. Signer Name: Kwabena Antonio MD, III Signed: 01/09/2019 12:43 PM Workstation Name: [id number]
[2019-01-09 21:00] LABS: Bilirubin,Urine NEG (Negative); Blood,Urine SM (Negative); Color,Urine Yellow (Yellow); Urobilinogen,Urine < 2.0 mg/dL (<2.0)
[2019-01-10] MEDS ORDERED: ROXICODONE PO PRN (00:38)
[2019-01-10] MEDS ORDERED: TYLENOL PO PRN ×2 (00:38→00:42)
[2019-01-10] MEDS ORDERED: ZOFRAN IV PRN (00:42)
[2019-01-10] MEDS ORDERED: SODIUM CHLORIDE FLUSH SYRINGE 10 ML IV PRN (00:42)
[2019-01-10] MEDS ORDERED: DILAUDID IV PRN (00:42)
--- NOTE | 2019-01-10 00:53 | Event Note ---
Date: 01/09/19 See H/p in reports Chest pain r/o IA Afib with rvr Esrd on HD
[2019-01-10] MEDS: CATAPRES PO SCH ×3 (01:18→22:28)
--- NOTE | 2019-01-10 01:30 | History and Physical Report ---
CHIEF COMPLAINT: 1. Chest pain. 2. Palpitations. HISTORY OF PRESENT ILLNESS: A 48-year-old male with history of end-stage renal disease, on hemodialysis, comes in for left-sided chest pain. The patient also has palpitations. The patient has a history of nonischemic cardiomyopathy with ejection fraction of 35-40%. Also, ascites. The patient was recently discharged from this facility after being treated for wound on the right thigh. The patient is supposed to be taking Bactrim for that until 01/11/2019. No fever or chills. Some orthopnea present. No exacerbating or relieving factors. Previous admission from discharge summary of 12/28/2018 reviewed. The patient was discharged after being treated for right thigh wound, cultures of which were growing Klebsiella and Enterobacter. The patient was supposed to take Bactrim until 01/11/2019. PAST MEDICAL HISTORY: Significant for hypertension; congestive heart failure; end-stage renal disease, renal dialysis on Monday, and Monday and abdominal hernias. PAST SURGICAL HISTORY: AV graft, left arm; groin hernia repair. SOCIAL HISTORY: Does not smoke. FAMILY HISTORY: Hypertension. REVIEW OF SYSTEMS: Significant for left-sided chest pain and palpitations and orthopnea. Otherwise, review of systems negative. CURRENT MEDICATIONS: Bactrim, clonidine and sevelamer. PHYSICAL EXAMINATION: GENERAL: A middle-aged male, looks older than his age. VITAL SIGNS: Blood pressure is 140/74, temperature is 98.4, pulse is 83, respirations 16. HEENT: Unremarkable. Pupils equal and reactive. NECK: Supple, no lymphadenopathy, no thyromegaly. LUNGS: Clear to auscultation and percussion. Good air entry. CARDIOVASCULAR: S1, S2 heard. No gallop, no murmur, no rub. Irregular heart rate. Apical impulse in left fifth intercostal space and midclavicular line. ABDOMEN: Soft and benign. No hepatosplenomegaly. No guarding, no rigidity. Hernial orifices are normal. EXTREMITIES: Good pedal pulses. Right thigh wound is healing. IMAGING: EKG shows atrial fibrillation with RVR. Chest x-ray shows no acute findings. LABORATORY DATA: Significant for white count of 5900, H and H is 9.1 and 28.6, platelet count is 270,000. Electrolytes are significant for sodium of 140, potassium of 5.7, BUN and creatinine of 64 and 11.5. Troponin is 0.818 and BNP is more than 35,000. ASSESSMENT AND PLAN: 1. Chest pain, rule out myocardial infarction, chest pain protocol. Lexiscan ordered for the morning. Cardiology consult also requested. 2. Congestive heart failure exacerbation. The patient needs increased ultrafiltration. Echocardiogram ordered for ejection fraction and valve function. BNP is very high. 3. Hyperkalemia, treated in the Emergency Room. The patient also to get hemodialysis. 4. Hypertension. Continue antihypertensives. 5. End-stage renal disease. Continue hemodialysis. 6. Deep venous thrombosis prophylaxis, heparin 5000 q. 12. 7. Right thigh wound. Continue Bactrim. JOB# [id number] VERNA/FELIPE QUEZADA
[2019-01-10] MEDS: RENVELA PO SCH ×3 (08:00→17:00)
[2019-01-10 08:05] LABS: Calcium 8.9 mg/dL (8.4-10.2)
[2019-01-10] MEDS ORDERED: CARDIZEM CD PO SCH (10:00)
[2019-01-10] MEDS: PEPCID PO SCH ×2 (12:24→22:28)
[2019-01-10] MEDS: BACTRIM DS PO SCH (12:24)
--- NOTE | 2019-01-10 12:27 | Consultation ---
History of Present Illness Consult date: 01/10/19 Consult reason: atrial fibrillation History of present illness: Patient is a 48 year old male who presented with palpitations, shortness of breath, found to be in new onset atrial fibrillation. This was treated with intravenous Diltiazem. Patient is known to [facility] and has multiple medical problems. He has end-stage renal disease on hemodialysis and chronic ascites requiring frequent paracentesis. He has chronic systolic heart failure, non-ischemic cardiomyopathy by non-invasive cardiac stress thallium test within the last year that documents a normal perfusion scan but a decreased left ventricular systolic function with an ejection fraction 30-35% by echocardiogram. Patient also has a history of hypothyroidism, chronic hyperten pia and noncompliance with medications, fluid and dietary indiscretions. Today, patient reports he is feeling better. Atrial fibrillation persists on telemetry. Labs shows a TSH of 16.5. A cardiac consultation has been requested for management of new onset atrial fibrillation. Medications and Allergies Allergies Allergy/AdvReac Type Severity Reaction Status Date / Time labetalol Allergy Vomiting Verified 10/16/18 15:22 polystyrene sulfonate Allergy Unknown Verified 10/16/18 13:24 [From Kayexalate] tramadol [From Ultram] AdvReac Dizziness Verified 03/05/18 15:30 Home Medications Medication Instructions Recorded Confirmed Last Taken Type Acetaminophen [Acetaminophen TAB] 650 mg PO Q4H PRN #15 tablet 12/28/18 01/09/19 1 Month Ago Rx ~12/03/18 Sulfamethoxazole/Trimethoprim 1 each PO DAILY #14 tablet 12/28/18 01/09/19 01/03/19 Rx [Bactrim DS TAB] cloNIDine [Catapres] 0.2 mg PO BID #60 tablet 12/28/18 01/09/19 01/03/19 Rx oxyCODONE [roxiCODONE] 5 mg PO Q6HR PRN #20 tablet 12/28/18 01/09/19 01/02/19 Rx Sevelamer Carbonate [Renvela] 800 mg PO TIDWM 01/09/19 01/09/19 Unknown History Active Meds: Active Medications Acetaminophen (Tylenol) 650 mg PO Q4H PRN PRN Reason: Pain MILD(1-3)/Fever >100.5/SWAIN Clonidine HCl (Catapres) 0.2 mg PO BID FOSTER Last Admin: 01/10/19 01:18 Dose: 0.2 mg Documented by: Diltiazem HCl (Cardizem Cd) 120 mg PO QDAY [facility] Famotidine (Pepcid) 10 mg PO BID [facility] Hydromorphone HCl (Dilaudid) 0.5 mg IV Q3H PRN PRN Reason: Pain , Severe (7-10) Sodium Chloride (Nacl 0.9%) 100 mls @ 999 mls/hr IV JULIA PRN PRN Reason: Hypotension Ondansetron HCl (Zofran) 4 mg IV Q8H PRN PRN Reason: Nausea And Vomiting Oxycodone HCl (Roxicodone) 5 mg PO Q6HR PRN PRN Reason: Pain ,(4-6) Sevelamer Carbonate (Renvela) 800 mg PO TIDWM [facility] Last Admin: 01/10/19 08:00 Dose: Not Given Documented by: Sodium Chloride (Sodium Chloride Flush Syringe 10 Ml) 10 ml IV BID [facility] Sodium Chloride (Sodium Chloride Flush Syringe 10 Ml) 10 ml IV PRN PRN PRN Reason: LINE FLUSH Trimethoprim/Sulfamethoxazole (Bactrim Ds) 1 each PO DAILY [facility] Physical Examination Vital Signs Temp Pulse Resp BP Pulse Ox 98.4 F 106 H 20 169/107 99 01/09/19 09:20 01/09/19 09:20 01/09/19 09:20 01/09/19 09:20 01/09/19 09:20 General appearance: no acute distress HEENT: Positive: PERRL Neck: Positive: trachea midline Cardiac: Positive: irregularly irregular Lungs: Positive: Decreased Breath Sounds Neuro: Positive: Grossly Intact Abdomen: Positive: Distended Extremities: Present: edema Results 01/09/19 10:29 01/10/19 07:12 Cardiac Enzymes 01/09/19 01/09/19 01/09/19 Range/Units 10:29 10:29 10:29 WBC 5.9 (4.5-11.0) K/mm3 RBC 3.09 L (3.65-5.03) M/mm3 Hgb 9.1 L (11.8-15.2) gm/dl Hct 28.6 L (35.5-45.6) % MCV 93 (84-94) fl MCH 29 (28-32) pg MCHC 32 (32-34) % RDW 17.1 H (13.2-15.2) % Plt Count 270 (140-440) K/mm3 [place] % (Auto) Herb Counselor Add Manual Diff Complete Total Counted 100 Seg Neuts % (Manual) 76.0 H (40.0-70.0) % Band Neutrophils % 0 % Lymphocytes % (Manual) 6.0 L (13.4-35.0) % Reactive Lymphs % (Man) 0 % Monocytes % (Manual) 13.0 H (0.0-7.3) % Eosinophils % (Manual) 3.0 (0.0-4.3) % Basophils % (Manual) 2.0 H (0.0-1.8) % Metamyelocytes % 0 % Myelocytes % 0 % Promyelocytes % 0 % Blast Cells % 0 % Nucleated RBC % Not Reportable Seg Neutrophils # Man 4.5 (1.8-7.7) K/mm3 Band Neutrophils # 0.0 K/mm3 Lymphocytes # (Manual) 0.4 L (1.2-5.4) K/mm3 Abs React Lymphs (Man) 0.0 K/mm3 Monocytes # (Manual) 0.8 (0.0-0.8) K/mm3 Eosinophils # (Manual) 0.2 (0.0-0.4) K/mm3 Basophils # (Manual) 0.1 (0.0-0.1) K/mm3 Metamyelocytes # 0.0 K/mm3 Myelocytes # 0.0 K/mm3 Promyelocytes # 0.0 K/mm3 Blast Cells # 0.0 K/mm3 WBC Morphology Not Reportable Hypersegmented Neuts Not Reportable Hyposegmented Neuts Not Reportable Hypogranular Neuts Not Reportable Smudge Cells Not Reportable Toxic Granulation Not Reportable Toxic Vacuolation Not Reportable Dohle Bodies Not Reportable Pelger-Huet Anomaly Not Reportable Vin Rods Not Reportable Platelet Estimate Consistent w auto Clumped Platelets Not Reportable Plt Clumps, EDTA Not Reportable Large Platelets Not Reportable Giant Platelets Not Reportable Platelet Satelliting Not Reportable Plt Morphology Comment Not Reportable RBC Morphology Not Reportable Dimorphic RBCs Not Reportable Polychromasia Not Reportable Hypochromasia Not Reportable Poikilocytosis Few Anisocytosis Few Microcytosis Not Reportable Macrocytosis Not Reportable Spherocytes Not Reportable Pappenheimer Bodies Not Reportable Sickle Cells Not Reportable Target Cells Not Reportable Tear Drop Cells Not Reportable Ovalocytes Rare Helmet Cells Not Reportable [place] Bodies Not Reportable [place] Rings Not Reportable [place] Cells Not Reportable Bite Cells Not Reportable Crenated Cell Not Reportable Elliptocytes Not Reportable Acanthocytes (Spur) Not Reportable Rouleaux Not Reportable Hemoglobin C Crystals Not Reportable Schistocytes Not Reportable Malaria parasites Not Reportable Charbel Bodies Not Reportable Hem Pathologist Commnt No PT (12.2-14.9) Sec. INR (0.87-1.13) APTT (24.2-36.6) Sec. Sodium 140 (137-145) mmol/L Potassium 5.7 H (3.6-5.0) mmol/L Chloride 97.6 L (98-107) mmol/L Carbon Dioxide 24 (22-30) mmol/L Anion Gap 24 mmol/L BUN 64 H (9-20) mg/dL Creatinine 11.5 H (0.8-1.5) mg/dL Estimated GFR 6 ml/min BUN/Creatinine Ratio 6 % Glucose 101 H (75-100) mg/dL POC Glucose (70-105) Hemoglobin A1c (4-6) % Lactic Acid (0.7-2.0) mmol/L Calcium 8.9 (8.4-10.2) mg/dL Magnesium 2.40 H (1.7-2.3) mg/dL Total Bilirubin 0.40 (0.1-1.2) mg/dL ALT 14 (7-56) units/L Alkaline Phosphatase 88 (35-129) units/L Total Creatine Kinase 830 H (55-170) units/L CK-MB (CK-2) Rel Index 1.9 (0-4) Troponin T 0.818 H* (0.00-0.029) ng/mL NT-Pro-B Natriuret Pep > 03022 H (0-450) pg/mL Total Protein 7.2 (6.3-8.2) g/dL Albumin 3.0 L (3.9-5) g/dL Albumin/Globulin Ratio 0.7 % Triglycerides 47 (2-149) mg/dL Cholesterol 117 (50-199) mg/dL LDL Cholesterol Direct 78 (50-130) mg/dL HDL Cholesterol 44 (40-59) mg/dL Cholesterol/HDL Ratio 2.65 % TSH (0.270-4.200) mlU/mL Free T4 (0.76-1.46) ng/dL Urine Color (Yellow) Urine Turbidity (Clear) Urine pH (5.0-7.0) Ur Specific [place] (1.003-1.030) Urine Protein (Negative) mg/dL Urine Glucose (UA) (Negative) mg/dL Urine Ketones (Negative) mg/dL Urine Blood (Negative) Urine Nitrite (Negative) Urine Bilirubin (Negative) Urine Urobilinogen (<2.0) mg/dL Ur Leukocyte Esterase (Negative) Urine WBC (Auto) (0.0-6.0) /HPF Urine RBC (Auto) (0.0-6.0) /HPF U Epithel Cells (Auto) (0-13.0) /HPF 01/09/19 01/09/19 01/09/19 Range/Units 11:18 12:44 13:05 WBC (4.5-11.0) K/mm3 RBC (3.65-5.03) M/mm3 Hgb (11.8-15.2) gm/dl Hct (35.5-45.6) % MCV (84-94) fl MCH (28-32) pg MCHC (32-34) % RDW (13.2-15.2) % Plt Count (140-440) K/mm3 [place] % (Auto) Add Manual Diff Total Counted Seg Neuts % (Manual) (40.0-70.0) % Band Neutrophils % % Lymphocytes % (Manual) (13.4-35.0) % Reactive Lymphs % (Man) % Monocytes % (Manual) (0.0-7.3) % Eosinophils % (Manual) (0.0-4.3) % Basophils % (Manual) (0.0-1.8) % Metamyelocytes % % Myelocytes % % Promyelocytes % % Blast Cells % % Nucleated RBC % Seg Neutrophils # Man (1.8-7.7) K/mm3 Band Neutrophils # K/mm3 Lymphocytes # (Manual) (1.2-5.4) K/mm3 Abs React Lymphs (Man) K/mm3 Monocytes # (Manual) (0.0-0.8) K/mm3 Eosinophils # (Manual) (0.0-0.4) K/mm3 Basophils # (Manual) (0.0-0.1) K/mm3 Metamyelocytes # K/mm3 Myelocytes # K/mm3 Promyelocytes # K/mm3 Blast Cells # K/mm3 WBC Morphology Hypersegmented Neuts Hyposegmented Neuts Hypogranular Neuts Smudge Cells Toxic Granulation Toxic Vacuolation Dohle Bodies Pelger-Huet Anomaly Vin Rods Platelet Estimate Clumped Platelets Plt Clumps, EDTA Large Platelets Giant Platelets Platelet Satelliting Plt Morphology Comment RBC Morphology Dimorphic RBCs Polychromasia Hypochromasia Poikilocytosis Anisocytosis Microcytosis Macrocytosis Spherocytes Pappenheimer Bodies Sickle Cells Target Cells Tear Drop Cells Ovalocytes Helmet Cells [place] Bodies [place] Rings [place] Cells Bite Cells Crenated Cell Elliptocytes Acanthocytes (Spur) Rouleaux Hemoglobin C Crystals Schistocytes Malaria parasites Charbel Bodies Hem Pathologist Commnt PT 15.5 H (12.2-14.9) Sec. INR 1.26 H (0.87-1.13) APTT 30.4 (24.2-36.6) Sec. Sodium (137-145) mmol/L Potassium (3.6-5.0) mmol/L Chloride (98-107) mmol/L Carbon Dioxide (22-30) mmol/L Anion Gap mmol/L BUN (9-20) mg/dL Creatinine (0.8-1.5) mg/dL Estimated GFR ml/min BUN/Creatinine Ratio % Glucose (75-100) mg/dL POC Glucose 111 H (70-105) Hemoglobin A1c (4-6) % Lactic Acid 1.00 (0.7-2.0) mmol/L Calcium (8.4-10.2) mg/dL Magnesium (1.7-2.3) mg/dL Total Bilirubin (0.1-1.2) mg/dL ALT (7-56) units/L Alkaline Phosphatase (35-129) units/L Total Creatine Kinase (55-170) units/L CK-MB (CK-2) Rel Index (0-4) Troponin T (0.00-0.029) ng/mL NT-Pro-B Natriuret Pep (0-450) pg/mL Total Protein (6.3-8.2) g/dL Albumin (3.9-5) g/dL Albumin/Globulin Ratio % Triglycerides (2-149) mg/dL Cholesterol (50-199) mg/dL LDL Cholesterol Direct (50-130) mg/dL HDL Cholesterol (40-59) mg/dL Cholesterol/HDL Ratio % TSH (0.270-4.200) mlU/mL Free T4 (0.76-1.46) ng/dL Urine Color (Yellow) Urine Turbidity (Clear) Urine pH (5.0-7.0) Ur Specific [place] (1.003-1.030) Urine Protein (Negative) mg/dL Urine Glucose (UA) (Negative) mg/dL Urine Ketones (Negative) mg/dL Urine Blood (Negative) Urine Nitrite (Negative) Urine Bilirubin (Negative) Urine Urobilinogen (<2.0) mg/dL Ur Leukocyte Esterase (Negative) Urine WBC (Auto) (0.0-6.0) /HPF Urine RBC (Auto) (0.0-6.0) /HPF U Epithel Cells (Auto) (0-13.0) /HPF 01/09/19 01/10/19 01/10/19 Range/Units 20:36 02:59 02:59 WBC (4.5-11.0) K/mm3 RBC (3.65-5.03) M/mm3 Hgb (11.8-15.2) gm/dl Hct (35.5-45.6) % MCV (84-94) fl MCH (28-32) pg MCHC (32-34) % RDW (13.2-15.2) % Plt Count (140-440) K/mm3 [place] % (Auto) Add Manual Diff Total Counted Seg Neuts % (Manual) (40.0-70.0) % Band Neutrophils % % Lymphocytes % (Manual) (13.4-35.0) % Reactive Lymphs % (Man) % Monocytes % (Manual) (0.0-7.3) % Eosinophils % (Manual) (0.0-4.3) % Basophils % (Manual) (0.0-1.8) % Metamyelocytes % % Myelocytes % % Promyelocytes % % Blast Cells % % Nucleated RBC % Seg Neutrophils # Man (1.8-7.7) K/mm3 Band Neutrophils # K/mm3 Lymphocytes # (Manual) (1.2-5.4) K/mm3 Abs React Lymphs (Man) K/mm3 Monocytes # (Manual) (0.0-0.8) K/mm3 Eosinophils # (Manual) (0.0-0.4) K/mm3 Basophils # (Manual) (0.0-0.1) K/mm3 Metamyelocytes # K/mm3 Myelocytes # K/mm3 Promyelocytes # K/mm3 Blast Cells # K/mm3 WBC Morphology Hypersegmented Neuts Hyposegmented Neuts Hypogranular Neuts Smudge Cells Toxic Granulation Toxic Vacuolation Dohle Bodies Pelger-Huet Anomaly Vin Rods Platelet Estimate Clumped Platelets Plt Clumps, EDTA Large Platelets Giant Platelets Platelet Satelliting Plt Morphology Comment RBC Morphology Dimorphic RBCs Polychromasia Hypochromasia Poikilocytosis Anisocytosis Microcytosis Macrocytosis Spherocytes Pappenheimer Bodies Sickle Cells Target Cells Tear Drop Cells Ovalocytes Helmet Cells [place] Bodies [place] Rings [place] Cells Bite Cells Crenated Cell Elliptocytes Acanthocytes (Spur) Rouleaux Hemoglobin C Crystals Schistocytes Malaria parasites Charbel Bodies Hem Pathologist Commnt PT (12.2-14.9) Sec. INR (0.87-1.13) APTT (24.2-36.6) Sec. Sodium (137-145) mmol/L Potassium (3.6-5.0) mmol/L Chloride (98-107) mmol/L Carbon Dioxide (22-30) mmol/L Anion Gap mmol/L BUN (9-20) mg/dL Creatinine (0.8-1.5) mg/dL Estimated GFR ml/min BUN/Creatinine Ratio % Glucose (75-100) mg/dL POC Glucose (70-105) Hemoglobin A1c 5.6 (4-6) % Lactic Acid (0.7-2.0) mmol/L Calcium (8.4-10.2) mg/dL Magnesium (1.7-2.3) mg/dL Total Bilirubin (0.1-1.2) mg/dL ALT (7-56) units/L Alkaline Phosphatase (35-129) units/L Total Creatine Kinase (55-170) units/L CK-MB (CK-2) Rel Index (0-4) Troponin T 0.773 H* (0.00-0.029) ng/mL NT-Pro-B Natriuret Pep (0-450) pg/mL Total Protein (6.3-8.2) g/dL Albumin (3.9-5) g/dL Albumin/Globulin Ratio % Triglycerides (2-149) mg/dL Cholesterol (50-199) mg/dL LDL Cholesterol Direct (50-130) mg/dL HDL Cholesterol (40-59) mg/dL Cholesterol/HDL Ratio % TSH (0.270-4.200) mlU/mL Free T4 (0.76-1.46) ng/dL Urine Color Yellow (Yellow) Urine Turbidity Clear (Clear) Urine pH 8.0 H (5.0-7.0) Ur Specific [place] 1.010 (1.003-1.030) Urine Protein 100 mg/dl (Negative) mg/dL Urine Glucose (UA) 150 (Negative) mg/dL Urine Ketones Neg (Negative) mg/dL Urine Blood Sm (Negative) Urine Nitrite Neg (Negative) Urine Bilirubin Neg (Negative) Urine Urobilinogen < 2.0 (<2.0) mg/dL Ur Leukocyte Esterase Neg (Negative) Urine WBC (Auto) 2.0 (0.0-6.0) /HPF Urine RBC (Auto) 5.0 (0.0-6.0) /HPF U Epithel Cells (Auto) < 1.0 (0-13.0) /HPF 01/10/19 01/10/19 01/10/19 Range/Units 07:12 07:12 09:39 WBC (4.5-11.0) K/mm3 RBC (3.65-5.03) M/mm3 Hgb (11.8-15.2) gm/dl Hct (35.5-45.6) % MCV (84-94) fl MCH (28-32) pg MCHC (32-34) % RDW (13.2-15.2) % Plt Count (140-440) K/mm3 [place] % (Auto) Add Manual Diff Total Counted Seg Neuts % (Manual) (40.0-70.0) % Band Neutrophils % % Lymphocytes % (Manual) (13.4-35.0) % Reactive Lymphs % (Man) % Monocytes % (Manual) (0.0-7.3) % Eosinophils % (Manual) (0.0-4.3) % Basophils % (Manual) (0.0-1.8) % Metamyelocytes % % Myelocytes % % Promyelocytes % % Blast Cells % % Nucleated RBC % Seg Neutrophils # Man (1.8-7.7) K/mm3 Band Neutrophils # K/mm3 Lymphocytes # (Manual) (1.2-5.4) K/mm3 Abs React Lymphs (Man) K/mm3 Monocytes # (Manual) (0.0-0.8) K/mm3 Eosinophils # (Manual) (0.0-0.4) K/mm3 Basophils # (Manual) (0.0-0.1) K/mm3 Metamyelocytes # K/mm3 Myelocytes # K/mm3 Promyelocytes # K/mm3 Blast Cells # K/mm3 WBC Morphology Hypersegmented Neuts Hyposegmented Neuts Hypogranular Neuts Smudge Cells Toxic Granulation Toxic Vacuolation Dohle Bodies Pelger-Huet Anomaly Vin Rods Platelet Estimate Clumped Platelets Plt Clumps, EDTA Large Platelets Giant Platelets Platelet Satelliting Plt Morphology Comment RBC Morphology Dimorphic RBCs Polychromasia Hypochromasia Poikilocytosis Anisocytosis Microcytosis Macrocytosis Spherocytes Pappenheimer Bodies Sickle Cells Target Cells Tear Drop Cells Ovalocytes Helmet Cells [place] Bodies [place] Rings [place] Cells Bite Cells Crenated Cell Elliptocytes Acanthocytes (Spur) Rouleaux Hemoglobin C Crystals Schistocytes Malaria parasites Charbel Bodies Hem Pathologist Commnt PT (12.2-14.9) Sec. INR (0.87-1.13) APTT (24.2-36.6) Sec. Sodium 140 (137-145) mmol/L Potassium 5.4 H (3.6-5.0) mmol/L Chloride 98.1 (98-107) mmol/L Carbon Dioxide 29 (22-30) mmol/L Anion Gap 18 mmol/L BUN 50 H (9-20) mg/dL Creatinine 10.2 H (0.8-1.5) mg/dL Estimated GFR 7 ml/min BUN/Creatinine Ratio 5 % Glucose 109 H (75-100) mg/dL POC Glucose (70-105) Hemoglobin A1c (4-6) % Lactic Acid (0.7-2.0) mmol/L Calcium 8.9 (8.4-10.2) mg/dL Magnesium (1.7-2.3) mg/dL Total Bilirubin (0.1-1.2) mg/dL ALT (7-56) units/L Alkaline Phosphatase (35-129) units/L Total Creatine Kinase (55-170) units/L CK-MB (CK-2) Rel Index (0-4) Troponin T 0.832 H* (0.00-0.029) ng/mL NT-Pro-B Natriuret Pep (0-450) pg/mL Total Protein (6.3-8.2) g/dL Albumin (3.9-5) g/dL Albumin/Globulin Ratio % Triglycerides (2-149) mg/dL Cholesterol (50-199) mg/dL LDL Cholesterol Direct (50-130) mg/dL HDL Cholesterol (40-59) mg/dL Cholesterol/HDL Ratio % TSH (0.270-4.200) mlU/mL Free T4 0.65 L (0.76-1.46) ng/dL Urine Color (Yellow) Urine Turbidity (Clear) Urine pH (5.0-7.0) Ur Specific [place] (1.003-1.030) Urine Protein (Negative) mg/dL Urine Glucose (UA) (Negative) mg/dL Urine Ketones (Negative) mg/dL Urine Blood (Negative) Urine Nitrite (Negative) Urine Bilirubin (Negative) Urine Urobilinogen (<2.0) mg/dL Ur Leukocyte Esterase (Negative) Urine WBC (Auto) (0.0-6.0) /HPF Urine RBC (Auto) (0.0-6.0) /HPF U Epithel Cells (Auto) (0-13.0) /HPF 01/10/19 Range/Units 09:39 WBC (4.5-11.0) K/mm3 RBC (3.65-5.03) M/mm3 Hgb (11.8-15.2) gm/dl Hct (35.5-45.6) % MCV (84-94) fl MCH (28-32) pg MCHC (32-34) % RDW (13.2-15.2) % Plt Count (140-440) K/mm3 [place] % (Auto) Add Manual Diff Total Counted Seg Neuts % (Manual) (40.0-70.0) % Band Neutrophils % % Lymphocytes % (Manual) (13.4-35.0) % Reactive Lymphs % (Man) % Monocytes % (Manual) (0.0-7.3) % Eosinophils % (Manual) (0.0-4.3) % Basophils % (Manual) (0.0-1.8) % Metamyelocytes % % Myelocytes % % Promyelocytes % % Blast Cells % % Nucleated RBC % Seg Neutrophils # Man (1.8-7.7) K/mm3 Band Neutrophils # K/mm3 Lymphocytes # (Manual) (1.2-5.4) K/mm3 Abs React Lymphs (Man) K/mm3 Monocytes # (Manual) (0.0-0.8) K/mm3 Eosinophils # (Manual) (0.0-0.4) K/mm3 Basophils # (Manual) (0.0-0.1) K/mm3 Metamyelocytes # K/mm3 Myelocytes # K/mm3 Promyelocytes # K/mm3 Blast Cells # K/mm3 WBC Morphology Hypersegmented Neuts Hyposegmented Neuts Hypogranular Neuts Smudge Cells Toxic Granulation Toxic Vacuolation Dohle Bodies Pelger-Huet Anomaly Vin Rods Platelet Estimate Clumped Platelets Plt Clumps, EDTA Large Platelets Giant Platelets Platelet Satelliting Plt Morphology Comment RBC Morphology Dimorphic RBCs Polychromasia Hypochromasia Poikilocytosis Anisocytosis Microcytosis Macrocytosis Spherocytes Pappenheimer Bodies Sickle Cells Target Cells Tear Drop Cells Ovalocytes Helmet Cells [place] Bodies [place] Rings [place] Cells Bite Cells Crenated Cell Elliptocytes Acanthocytes (Spur) Rouleaux Hemoglobin C Crystals Schistocytes Malaria parasites Charbel Bodies Hem Pathologist Commnt PT (12.2-14.9) Sec. INR (0.87-1.13) APTT (24.2-36.6) Sec. Sodium (137-145) mmol/L Potassium (3.6-5.0) mmol/L Chloride (98-107) mmol/L Carbon Dioxide (22-30) mmol/L Anion Gap mmol/L BUN (9-20) mg/dL Creatinine (0.8-1.5) mg/dL Estimated GFR ml/min BUN/Creatinine Ratio % Glucose (75-100) mg/dL POC Glucose (70-105) Hemoglobin A1c (4-6) % Lactic Acid (0.7-2.0) mmol/L Calcium (8.4-10.2) mg/dL Magnesium (1.7-2.3) mg/dL Total Bilirubin (0.1-1.2) mg/dL ALT (7-56) units/L Alkaline Phosphatase (35-129) units/L Total Creatine Kinase (55-170) units/L CK-MB (CK-2) Rel Index (0-4) Troponin T (0.00-0.029) ng/mL NT-Pro-B Natriuret Pep (0-450) pg/mL Total Protein (6.3-8.2) g/dL Albumin (3.9-5) g/dL Albumin/Globulin Ratio % Triglycerides (2-149) mg/dL Cholesterol (50-199) mg/dL LDL Cholesterol Direct (50-130) mg/dL HDL Cholesterol (40-59) mg/dL Cholesterol/HDL Ratio % TSH 16.540 H (0.270-4.200) mlU/mL Free T4 (0.76-1.46) ng/dL Urine Color (Yellow) Urine Turbidity (Clear) Urine pH (5.0-7.0) Ur Specific [place] (1.003-1.030) Urine Protein (Negative) mg/dL Urine Glucose (UA) (Negative) mg/dL Urine Ketones (Negative) mg/dL Urine Blood (Negative) Urine Nitrite (Negative) Urine Bilirubin (Negative) Urine Urobilinogen (<2.0) mg/dL Ur Leukocyte Esterase (Negative) Urine WBC (Auto) (0.0-6.0) /HPF Urine RBC (Auto) (0.0-6.0) /HPF U Epithel Cells (Auto) (0-13.0) /HPF Comprehensive Metabolic Panel 01/10/19 Range/Units 07:12 Sodium 140 (137-145) mmol/L Potassium 5.4 H (3.6-5.0) mmol/L Chloride 98.1 (98-107) mmol/L Carbon Dioxide 29 (22-30) mmol/L BUN 50 H (9-20) mg/dL Creatinine 10.2 H (0.8-1.5) mg/dL Glucose 109 H (75-100) mg/dL Calcium 8.9 (8.4-10.2) mg/dL Assessment and Plan Atrial fibrillation, new onset TSH of 16.5 Hyperkalemia Chronic Ascites RLL cellulitis Enlarged Polycystic Kidneys End-stage renal disease on hemodialysis Chronic systolic heart failure Nonischemic Cardiomyopathy EF 25-30% by echo this admission no ischemia on MPI 12/2017 Hypertension Hypothyroidism Noncompliance
--- NOTE | 2019-01-10 16:53 | Progress Note ---
Assessment and Plan Assessment and plan: Chest pain. Admitted to telemetry. Aspirin 325 by mouth daily. Cardiology consulted. Stress test canceled Hyperkalemia. Monitor Nonischemic cardiomyopathy End-stage renal disease on hemodialysis. Nephrology following Hypertensive urgency. Now on Clonidine, Coreg, Losartan. History of polycystic kidney disease FULL CODE STATUS History Interval history: Chest pain Hospitalist Physical - Physical exam Narrative exam: GEN: Not in acute distress, Morbidly obese HEENT: Normocephalic, atraumatic, Neck: supple, No JVD Lungs: Clear to auscultation bilaterally, no crackles, no wheeze Heart:S1 and S2 regular, no murmurs, rubs or gallop, Abd:soft, non-tender, non-distended, normal bowel sounds Ext: No edema, no clubbing, no cyanosis Neuro: AAO x 3, No focal neurological signs - Constitutional Vitals: Temp Pulse Resp BP Pulse Ox 97.6 F 97 H 16 148/100 94 01/10/19 11:57 01/10/19 11:57 01/10/19 11:57 01/10/19 11:57 01/10/19 11:57 General appearance: Present: no acute distress Results - Labs CBC & Chem 7: 01/09/19 10:29 01/10/19 07:12 Labs: Laboratory Last Values WBC 5.9 K/mm3 (4.5-11.0) 01/09/19 10:29 RBC 3.09 M/mm3 (3.65-5.03) L 01/09/19 10:29 Hgb 9.1 gm/dl (11.8-15.2) L 01/09/19 10:29 Hct 28.6 % (35.5-45.6) L 01/09/19 10:29 MCV 93 fl (84-94) 01/09/19 10:29 MCH 29 pg (28-32) 01/09/19 10:29 MCHC 32 % (32-34) 01/09/19 10:29 RDW 17.1 % (13.2-15.2) H 01/09/19 10:29 Plt Count 270 K/mm3 (140-440) 01/09/19 10:29 Sanders % (Auto) Fisher Seal 01/09/19 10:29 Add Manual Diff Complete 01/09/19 10:29 Total Counted 100 01/09/19 10:29 Seg Neuts % (Manual) 76.0 % (40.0-70.0) H 01/09/19 10:29 0 % 01/09/19 10: 6.0 % (13.4-35.0) L 01/09/19 10:29 Reactive Lymphs % (Man) 0 % 01/09/19 10: 13.0 % (0.0-7.3) H 01/09/19 10: 3.0 % (0.0-4.3) 01/09/19 10: 2.0 % (0.0-1.8) H 01/09/19 10: 0 % 01/09/19 10:29 0 % 01/09/19 10:29 0 % 01/09/19 10:29 0 % 01/09/19 10: Nucleated RBC % Not Reportable 01/09/19 10:29 Seg Neutrophils # Man 4.5 K/mm3 (1.8-7.7) 01/09/19 10:29 Band Neutrophils # 0.0 K/mm3 01/09/19 10:29 0.4 K/mm3 (1.2-5.4) L 01/09/19 10:29 Abs React Lymphs (Man) 0.0 K/mm3 01/09/19 10: 0.8 K/mm3 (0.0-0.8) 01/09/19 10:29 0.2 K/mm3 (0.0-0.4) 01/09/19 10: 0.1 K/mm3 (0.0-0.1) 01/09/19 10:29 0.0 K/mm3 01/09/19 10:29 0.0 K/mm3 01/09/19 10:29 0.0 K/mm3 01/09/19 10:29 Blast Cells # 0.0 K/mm3 01/09/19 10:29 WBC Morphology Not Reportable 01/09/19 10:29 Hypersegmented Neuts Not Reportable 01/09/19 10:29 Hyposegmented Neuts Not Reportable 01/09/19 10:29 Hypogranular Neuts Not Reportable 01/09/19 10:29 Not Reportable 01/09/19 10:29 Not Reportable 01/09/19 10:29 Not Reportable 01/09/19 10:29 Not Reportable 01/09/19 10:29 Not Reportable 01/09/19 10:29 Not Reportable 01/09/19 10:29 Consistent w auto 01/09/19 10:29 Not Reportable 01/09/19 10:29 Plt Clumps, EDTA Not Reportable 01/09/19 10:29 Not Reportable 01/09/19 10:29 Not Reportable 01/09/19 10:29 Not Reportable 01/09/19 10:29 Plt Morphology Comment Not Reportable 01/09/19 10:29 RBC Morphology Not Reportable 01/09/19 10:29 Dimorphic RBCs Not Reportable 01/09/19 10:29 Not Reportable 01/09/19 10:29 Not Reportable 01/09/19 10:29 Few 01/09/19 10:29 Few 01/09/19 10:29 Not Reportable 01/09/19 10:29 Not Reportable 01/09/19 10:29 Not Reportable 01/09/19 10:29 Not Reportable 01/09/19 10:29 Not Reportable 01/09/19 10:29 Not Reportable 01/09/19 10:29 Not Reportable 01/09/19 10:29 Rare 01/09/19 10:29 Not Reportable 01/09/19 10:29 Not Reportable 01/09/19 10:29 Not Reportable 01/09/19 10:29 Not Reportable 01/09/19 10:29 Not Reportable 01/09/19 10:29 Not Reportable 01/09/19 10:29 Not Reportable 01/09/19 10:29 Acanthocytes (Spur) Not Reportable 01/09/19 10:29 Rouleaux Not Reportable 01/09/19 10:29 Not Reportable 01/09/19 10:29 Not Reportable 01/09/19 10:29 Not Reportable 01/09/19 10:29 Not Reportable 01/09/19 10:29 Hem Pathologist Commnt No 01/09/19 10:29 PT 15.5 Sec. (12.2-14.9) H 01/09/19 11:18 INR 1.26 (0.87-1.13) H 01/09/19 11:18 APTT 30.4 Sec. (24.2-36.6) 01/09/19 11:18 Sodium 140 mmol/L (137-145) 01/10/19 07:12 Potassium 5.4 mmol/L (3.6-5.0) H 01/10/19 07:12 Chloride 98.1 mmol/L (98-107) 01/10/19 07:12 Carbon Dioxide 29 mmol/L (22-30) 01/10/19 07:12 18 mmol/L 01/10/19 07:12 BUN 50 mg/dL (9-20) H 01/10/19 07:12 10.2 mg/dL (0.8-1.5) H 01/10/19 07:12 Estimated GFR 7 ml/min 01/10/19 07:12 5 % 01/10/19 07:12 Glucose 109 mg/dL (75-100) H 01/10/19 07:12 POC Glucose 111 (70-105) H 01/09/19 13:05 5.6 % (4-6) 01/10/19 02:59 Lactic Acid 1.00 mmol/L (0.7-2.0) 01/09/19 12:44 Calcium 8.9 mg/dL (8.4-10.2) 01/10/19 07:12 Magnesium 2.40 mg/dL (1.7-2.3) H 01/09/19 10:29 0.40 mg/dL (0.1-1.2) 01/09/19 10:29 AST 19 units/L (5-40) 01/09/19 10:29 ALT 14 units/L (7-56) 01/09/19 10:29 88 units/L (35-129) 01/09/19 10:29 830 units/L (55-170) H 01/09/19 10:29 CK-MB (CK-2) 16.0 ng/mL (0.0-4.0) H 01/09/19 10:29 CK-MB (CK-2) Rel Index 1.9 (0-4) 01/09/19 10:29 0.832 ng/mL (0.00-0.029) H* 01/10/19 07:12 NT-Pro-B Natriuret Pep > 53747 pg/mL (0-450) H 01/09/19 10:29 7.2 g/dL (6.3-8.2) 01/09/19 10:29 3.0 g/dL (3.9-5) L 01/09/19 10:29 0.7 % 01/09/19 10:29 Triglycerides 47 mg/dL (2-149) 01/09/19 10:29 Cholesterol 117 mg/dL (50-199) 01/09/19 10:29 78 mg/dL (50-130) 01/09/19 10:29 44 mg/dL (40-59) 01/09/19 10:29 2.65 % 01/09/19 10:29 TSH 16.540 mlU/mL (0.270-4.200) H 01/10/19 09:39 Free T4 0.65 ng/dL (0.76-1.46) L 01/10/19 09:39 Yellow (Yellow) 01/09/19 20:36 Clear (Clear) 01/09/19 20:36 8.0 (5.0-7.0) H 01/09/19 20:36 Ur Specific [place] 1.010 (1.003-1.030) 01/09/19 20:36 100 mg/dl mg/dL (Negative) 01/09/19 20:36 150 mg/dL (Negative) 01/09/19 20:36 Neg mg/dL (Negative) 01/09/19 20:36 Sm (Negative) 01/09/19 20:36 Neg (Negative) 01/09/19 20:36 Neg (Negative) 01/09/19 20:36 < 2.0 mg/dL (<2.0) 01/09/19 20:36 Ur Leukocyte Esterase Neg (Negative) 01/09/19 20:36 2.0 /HPF (0.0-6.0) 01/09/19 20:36 5.0 /HPF (0.0-6.0) 01/09/19 20:36 U Epithel Cells (Auto) < 1.0 /HPF (0-13.0) 01/09/19 20:36 Active Medications - Current Medications Current Medications: Generic Name Dose Route Start Last Admin Trade Name Freq PRN Reason Stop Dose Admin Acetaminophen 650 mg 01/10/19 00:42 Tylenol PO Q4H PRN Pain MILD(1-3)/Fever >100.5/SWAIN Amiodarone HCl 400 mg 01/10/19 14:00 Cordarone PO 01/11/19 22:01 BID [facility] Amiodarone HCl 200 mg 01/12/19 10:00 Cordarone PO QDAY [facility] Apixaban 2.5 mg 01/10/19 14:00 Eliquis PO Q12HR [facility] Protocol Carvedilol 6.25 mg 01/10/19 14:00 Coreg PO BID [facility] Clonidine HCl 0.2 mg 01/10/19 01:00 01/10/19 12:24 Catapres PO 0.2 mg BID [facility] Administration Famotidine 10 mg 01/10/19 10:00 01/10/19 12:24 Pepcid PO 10 mg BID [facility] Administration Hydromorphone HCl 0.5 mg 01/10/19 00:42 Dilaudid IV Q3H PRN Pain , Severe (7-10) Sodium Chloride 100 mls @ 999 mls/hr 01/09/19 11:58 Nacl 0.9% IV JULIA PRN Hypotension Losartan Potassium 50 mg 01/11/19 10:00 Cozaar PO QDAY [facility] Ondansetron HCl 4 mg 01/10/19 00:42 Zofran IV Q8H PRN Nausea And Vomiting Oxycodone HCl 5 mg 01/10/19 00:38 Roxicodone PO Q6HR PRN Pain ,(4-6) Sevelamer Carbonate 800 mg 01/10/19 08:00 01/10/19 12:24 Renvela PO 800 mg TIDWM [facility] Administration Sodium Chloride 10 ml 01/10/19 10:00 Sodium Chloride Flush Syringe 10 Ml IV BID [facility] Sodium Chloride 10 ml 01/10/19 00:42 Sodium Chloride Flush Syringe 10 Ml IV PRN PRN LINE FLUSH Spironolactone 12.5 mg 01/10/19 14:00 Aldactone PO QDAY [facility] Trimethoprim/Sulfamethoxazole 1 each 01/10/19 10:00 01/10/19 12:24 Bactrim Ds PO 1 each DAILY [facility] Administration
[2019-01-10] MEDS: ELIQUIS PO SCH ×2 (17:19→22:29)
[2019-01-10] MEDS: ALDACTONE PO SCH (17:20)
[2019-01-10] MEDS: CORDARONE PO SCH ×2 (17:20→22:28)
[2019-01-10] MEDS: COREG PO SCH ×2 (17:21→22:28)
[2019-01-10] MEDS: SODIUM CHLORIDE FLUSH SYRINGE 10 ML IV SCH ×2 (18:06→22:29)
--- NOTE | 2019-01-10 18:53 | Consultation ---
History of Present Illness - Reason for Consult Consult date: 01/10/19 end stage renal disease Requesting physician: HOLLIS SCOTT - History of Present Illness This is a 48 yo M with past medical history of hypertension, HFrEF, autosomal dominant polycystic kidney disease and end-stage renal disease on hemodialysis on a TTS schedule, at [facility]. Pt has frequent hospitalizations for fluid overload/ascites/ accelerated hypertension/hyperkalemia usually related to noncompliance to dialysis regimen/sodium/fluid restriction. Per previous cardiology notes the patient has a nonischemic cardiomyopathy. He has an EF of 35-40. He has ascites and had several therapeutic paracentesis done in the past. Pt now presents gain with SOB, CRENSHAW, b/l LE edema and increased abd girth. CXR showed cardiomegaly and pulmonary vascular congestions. renal consult requested for management of ESRD/HD. Past History Past Medical History: dialysis, ESRD, heart failure, hypertension Past Surgical History: hernia repair, Other (AVF) Social history: lives with family. denies: smoking, alcohol abuse, prescription drug abuse, IV drug use Family history: other (mother had anxiety disorder, one brother of meningitis. He never met his father) Medications and Allergies Allergies Allergy/AdvReac Type Severity Reaction Status Date / Time labetalol Allergy Vomiting Verified 10/16/18 15:22 polystyrene sulfonate Allergy Unknown Verified 10/16/18 13:24 [From Kayexalate] tramadol [From Ultram] AdvReac Dizziness Verified 03/05/18 15:30 Home Medications Medication Instructions Recorded Confirmed Last Taken Type Acetaminophen [Acetaminophen TAB] 650 mg PO Q4H PRN #15 tablet 12/28/18 01/09/19 1 Month Ago Rx ~12/03/18 Sulfamethoxazole/Trimethoprim 1 each PO DAILY #14 tablet 12/28/18 01/09/19 01/03/19 Rx [Bactrim DS TAB] cloNIDine [Catapres] 0.2 mg PO BID #60 tablet 12/28/18 01/09/19 01/03/19 Rx oxyCODONE [roxiCODONE] 5 mg PO Q6HR PRN #20 tablet 12/28/18 01/09/19 01/02/19 Rx Sevelamer Carbonate [Renvela] 800 mg PO TIDWM 01/09/19 01/09/19 Unknown History Active Meds: Active Medications Acetaminophen (Tylenol) 650 mg PO Q4H PRN PRN Reason: Pain MILD(1-3)/Fever >100.5/SWAIN Amiodarone HCl (Cordarone) 400 mg PO BID [facility] Stop: 01/11/19 22:01 Last Admin: 01/10/19 17:20 Dose: Not Given Documented by: Amiodarone HCl (Cordarone) 200 mg PO QDAY [facility] Apixaban (Eliquis) 2.5 mg PO Q12HR [facility]; Protocol Last Admin: 01/10/19 17:19 Dose: 2.5 mg Documented by: Carvedilol (Coreg) 6.25 mg PO BID [facility] Last Admin: 01/10/19 17:21 Dose: Not Given Documented by: Clonidine HCl (Catapres) 0.2 mg PO BID [facility] Last Admin: 01/10/19 12:24 Dose: 0.2 mg Documented by: Famotidine (Pepcid) 10 mg PO BID [facility] Last Admin: 01/10/19 12:24 Dose: 10 mg Documented by: Hydromorphone HCl (Dilaudid) 0.5 mg IV Q3H PRN PRN Reason: Pain , Severe (7-10) Sodium Chloride (Nacl 0.9%) 100 mls @ 999 mls/hr IV JULIA PRN PRN Reason: Hypotension Losartan Potassium (Cozaar) 50 mg PO QDAY [facility] Ondansetron HCl (Zofran) 4 mg IV Q8H PRN PRN Reason: Nausea And Vomiting Oxycodone HCl (Roxicodone) 5 mg PO Q6HR PRN PRN Reason: Pain ,(4-6) Sevelamer Carbonate (Renvela) 800 mg PO TIDWM [facility] Last Admin: 01/10/19 17:00 Dose: 800 mg Documented by: Sodium Chloride (Sodium Chloride Flush Syringe 10 Ml) 10 ml IV BID [facility] Last Admin: 01/10/19 18:06 Dose: 10 ml Documented by: Sodium Chloride (Sodium Chloride Flush Syringe 10 Ml) 10 ml IV PRN PRN PRN Reason: LINE FLUSH Spironolactone (Aldactone) 12.5 mg PO QDAY [facility] Last Admin: 01/10/19 17:20 Dose: Not Given Documented by: Trimethoprim/Sulfamethoxazole (Bactrim Ds) 1 each PO DAILY [facility] Last Admin: 01/10/19 12:24 Dose: 1 each Documented by: Review of Systems Constitutional: weakness, malaise Cardiovascular: edema, shortness of breath, dyspnea on exertion Exam - Vital Signs Vital signs: Vital Signs Temp Pulse Resp BP Pulse Ox 98.4 F 106 H 20 169/107 99 01/09/19 09:20 01/09/19 09:20 01/09/19 09:20 01/09/19 09:20 01/09/19 09:20 - General Appearance General appearance: well-developed, well-nourished, appears stated age EENT: ATNC, PERRL, mucous membranes moist Neck: Present: neck supple Respiratory: Decreased Breath Sounds Heart: regular, S1S2 Gastrointestinal: Present: normoactive bowel sounds Integumentary: no rash, other (+ edema b/l LE ) Neurologic: no focal deficit, alert and oriented x3, strength 5/5, CN 3-12 intact Psychiatric: mood/affect appropriate, cooperative Results - Lab Results 01/09/19 10:29 01/10/19 07:12 Most recent lab results Calcium 8.9 mg/dL (8.4-10.2) 01/10/19 07:12 Magnesium 2.40 mg/dL (1.7-2.3) H 01/09/19 10:29 Assessment and Plan - Patient Problems (1) End-stage renal disease needing dialysis Current Visit: Yes Status: Acute Plan to address problem: arranged for HD on MWF schedule, target UF 2-3kg as tolerated (2) Acute exacerbation of CHF (congestive heart failure) Current Visit: Yes Status: Acute Qualifiers: Heart failure type: combined systolic and diastolic Qualified Code(s): I50.43 - Acute on chronic combined systolic (congestive) and diastolic (congestive) heart failure Plan to address problem: volume control with HD. follow cardiology recommendations (3) Hyperkalemia Current Visit: Yes Status: Acute Plan to address problem: improved with HD, cont 2g K renal diet (4) Anemia in chronic kidney disease Current Visit: No Status: Acute Plan to address problem: cont EPO with HD
[2019-01-10] MEDS ORDERED: NACL 0.9% 100 ML IV PRN (19:03)
[2019-01-11] MEDS ORDERED: PROCRIT SUB-Q SCH (06:00)
[2019-01-11 07:13] LABS: Hemoglobin 9.1 gm/dl (11.8-15.2); Mean Corpuscular HGB Conc 32 % (32-34); Mean Corpuscular Volume 92 fl (84-94); Platelet Count 268 K/mm3 (140-440); Red Blood Count 3.04 M/mm3 (3.65-5.03); Red Cell Distribution Width 17.1 % (13.2-15.2)
[2019-01-11 08:54] LABS: Total Cells Counted 100
[2019-01-11 08:55] LABS: Anisocytosis 1+; Ovalocytes Few; Platelet Estimate Consistent w Auto
--- NOTE | 2019-01-11 09:09 | Progress Note ---
Assessment and Plan Assessment and plan: Chest pain. Admitted to telemetry. Aspirin 325 by mouth daily. Cardiology consulted. Stress test canceled since recent stress neg Hyperkalemia. Monitor Dialysis Nonischemic cardiomyopathy End-stage renal disease on hemodialysis. Nephrology following Hypertensive urgency. Now on Clonidine, Coreg, Losartan. Gross ascitis paracentesis ordered History of polycystic kidney disease FULL CODE STATUS History Interval history: Chest pain resolved Abdominal distension,requesting paracentesis says he gets paracentesis almost every week as outpatient Hospitalist Physical - Physical exam Narrative exam: GEN: Not in acute distress, obese HEENT: Normocephalic, atraumatic, Neck: supple, No JVD Lungs: Clear to auscultation bilaterally, no crackles, no wheeze Heart:S1 and S2 regular, no murmurs, rubs or gallop, Abd:soft, non-tender, distended, normal bowel sounds Ext: No edema, no clubbing, no cyanosis Neuro: AAO x 3, No focal neurological signs - Constitutional Vitals: Temp Pulse Resp BP Pulse Ox 98.2 F 83 16 138/86 95 01/11/19 08:01 01/11/19 08:01 01/11/19 08:01 01/11/19 08:01 01/11/19 08:01 General appearance: Present: no acute distress Results - Labs CBC & Chem 7: 01/11/19 06:45 01/11/19 06:45 Labs: Laboratory Last Values WBC 4.8 K/mm3 (4.5-11.0) 01/11/19 06:45 RBC 3.04 M/mm3 (3.65-5.03) L 01/11/19 06:45 Hgb 9.1 gm/dl (11.8-15.2) L 01/11/19 06:45 Hct 28.0 % (35.5-45.6) L 01/11/19 06:45 MCV 92 fl (84-94) 01/11/19 06:45 MCH 30 pg (28-32) 01/11/19 06:45 MCHC 32 % (32-34) 01/11/19 06:45 RDW 17.1 % (13.2-15.2) H 01/11/19 06:45 Plt Count 268 K/mm3 (140-440) 01/11/19 06:45 Lymph % (Auto) [employer] 01/11/19 06:45 [place] % (Auto) [employer] 01/11/19 06:45 Eos % (Auto) [employer] 01/11/19 06:45 Baso % (Auto) [employer] 01/11/19 06:45 Lymph # [employer] 01/11/19 06:45 [place] # [employer] 01/11/19 06:45 Eos # [employer] 01/11/19 06:45 Baso # [employer] 01/11/19 06:45 Add Manual Diff Complete 01/11/19 06:45 Total Counted 100 01/11/19 06:45 Seg Neutrophils % [employer] 01/11/19 06:45 Seg Neuts % (Manual) 70.0 % (40.0-70.0) 01/11/19 06:45 0 % 01/11/19 06:45 11.0 % (13.4-35.0) L 01/11/19 06:45 Reactive Lymphs % (Man) 0 % 01/11/19 06:45 13.0 % (0.0-7.3) H 01/11/19 06:45 5.0 % (0.0-4.3) H 01/11/19 06:45 1.0 % (0.0-1.8) 01/11/19 06:45 0 % 01/11/19 06:45 0 % 01/11/19 06:45 0 % 01/11/19 06:45 0 % 01/11/19 06:45 Nucleated RBC % Not Reportable 01/11/19 06:45 Seg Neutrophils # [employer] 01/11/19 06:45 Seg Neutrophils # Man 3.4 K/mm3 (1.8-7.7) 01/11/19 06:45 Band Neutrophils # 0.0 K/mm3 01/11/19 06:45 0.5 K/mm3 (1.2-5.4) L 01/11/19 06:45 Abs React Lymphs (Man) 0.0 K/mm3 01/11/19 06:45 0.6 K/mm3 (0.0-0.8) 01/11/19 06:45 0.2 K/mm3 (0.0-0.4) 01/11/19 06:45 0.0 K/mm3 (0.0-0.1) 01/11/19 06:45 0.0 K/mm3 01/11/19 06:45 0.0 K/mm3 01/11/19 06:45 0.0 K/mm3 01/11/19 06:45 Blast Cells # 0.0 K/mm3 01/11/19 06:45 WBC Morphology Not Reportable 01/11/19 06:45 Hypersegmented Neuts Not Reportable 01/11/19 06:45 Hyposegmented Neuts Not Reportable 01/11/19 06:45 Hypogranular Neuts Not Reportable 01/11/19 06:45 Not Reportable 01/11/19 06:45 Not Reportable 01/11/19 06:45 Not Reportable 01/11/19 06:45 Not Reportable 01/11/19 06:45 Not Reportable 01/11/19 06:45 Not Reportable 01/11/19 06:45 Consistent w auto 01/11/19 06:45 Not Reportable 01/11/19 06:45 Plt Clumps, EDTA Not Reportable 01/11/19 06:45 Not Reportable 01/11/19 06:45 Not Reportable 01/11/19 06:45 Not Reportable 01/11/19 06:45 Plt Morphology Comment Not Reportable 01/11/19 06:45 RBC Morphology Not Reportable 01/11/19 06:45 Dimorphic RBCs Not Reportable 01/11/19 06:45 Not Reportable 01/11/19 06:45 Not Reportable 01/11/19 06:45 Not Reportable 01/11/19 06:45 1+ 01/11/19 06:45 Not Reportable 01/11/19 06:45 Not Reportable 01/11/19 06:45 Not Reportable 01/11/19 06:45 Not Reportable 01/11/19 06:45 Not Reportable 01/11/19 06:45 Not Reportable 01/11/19 06:45 Not Reportable 01/11/19 06:45 Few 01/11/19 06:45 Not Reportable 01/11/19 06:45 Not Reportable 01/11/19 06:45 Not Reportable 01/11/19 06:45 Not Reportable 01/11/19 06:45 Not Reportable 01/11/19 06:45 Not Reportable 01/11/19 06:45 Few 01/11/19 06:45 Acanthocytes (Spur) Not Reportable 01/11/19 06:45 Rouleaux Not Reportable 01/11/19 06:45 Not Reportable 01/11/19 06:45 Not Reportable 01/11/19 06:45 Not Reportable 01/11/19 06:45 Not Reportable 01/11/19 06:45 Hem Pathologist Commnt No 01/11/19 06:45 PT 15.5 Sec. (12.2-14.9) H 01/09/19 11:18 INR 1.26 (0.87-1.13) H 01/09/19 11:18 APTT 30.4 Sec. (24.2-36.6) 01/09/19 11:18 Sodium 139 mmol/L (137-145) 01/11/19 06:45 Potassium 5.6 mmol/L (3.6-5.0) H 01/11/19 06:45 Chloride 97.8 mmol/L (98-107) L 01/11/19 06:45 Carbon Dioxide 27 mmol/L (22-30) 01/11/19 06:45 20 mmol/L 01/11/19 06:45 BUN 61 mg/dL (9-20) H 01/11/19 06:45 11.4 mg/dL (0.8-1.5) H 01/11/19 06:45 Estimated GFR 6 ml/min 01/11/19 06:45 5 % 01/11/19 06:45 Glucose 115 mg/dL (75-100) H 01/11/19 06:45 POC Glucose 111 (70-105) H 01/09/19 13:05 5.6 % (4-6) 01/10/19 02:59 Lactic Acid 1.00 mmol/L (0.7-2.0) 01/09/19 12:44 Calcium 9.0 mg/dL (8.4-10.2) 01/11/19 06:45 Magnesium 2.40 mg/dL (1.7-2.3) H 01/09/19 10:29 0.40 mg/dL (0.1-1.2) 01/11/19 06:45 AST 15 units/L (5-40) 01/11/19 06:45 ALT 9 units/L (7-56) 01/11/19 06:45 83 units/L (35-129) 01/11/19 06:45 830 units/L (55-170) H 01/09/19 10:29 CK-MB (CK-2) 16.0 ng/mL (0.0-4.0) H 01/09/19 10:29 CK-MB (CK-2) Rel Index 1.9 (0-4) 01/09/19 10:29 0.832 ng/mL (0.00-0.029) H* 01/10/19 07:12 NT-Pro-B Natriuret Pep > 29738 pg/mL (0-450) H 01/09/19 10:29 7.0 g/dL (6.3-8.2) 01/11/19 06:45 3.0 g/dL (3.9-5) L 01/11/19 06:45 0.8 % 01/11/19 06:45 Triglycerides 47 mg/dL (2-149) 01/09/19 10:29 Cholesterol 117 mg/dL (50-199) 01/09/19 10:29 78 mg/dL (50-130) 01/09/19 10:29 44 mg/dL (40-59) 01/09/19 10:29 2.65 % 01/09/19 10:29 TSH 16.540 mlU/mL (0.270-4.200) H 01/10/19 09:39 Free T4 0.65 ng/dL (0.76-1.46) L 01/10/19 09:39 Yellow (Yellow) 01/09/19 20:36 Clear (Clear) 01/09/19 20:36 8.0 (5.0-7.0) H 01/09/19 20:36 Ur Specific Art 1.010 (1.003-1.030) 01/09/19 20:36 100 mg/dl mg/dL (Negative) 01/09/19 20:36 150 mg/dL (Negative) 01/09/19 20:36 Neg mg/dL (Negative) 01/09/19 20:36 Sm (Negative) 01/09/19 20:36 Neg (Negative) 01/09/19 20:36 Neg (Negative) 01/09/19 20:36 < 2.0 mg/dL (<2.0) 01/09/19 20:36 Ur Leukocyte Esterase Neg (Negative) 01/09/19 20:36 2.0 /HPF (0.0-6.0) 01/09/19 20:36 5.0 /HPF (0.0-6.0) 01/09/19 20:36 U Epithel Cells (Auto) < 1.0 /HPF (0-13.0) 01/09/19 20:36 Active Medications - Current Medications Current Medications: Generic Name Dose Route Start Last Admin Trade Name Freq PRN Reason Stop Dose Admin Acetaminophen 650 mg 01/10/19 00:42 Tylenol PO Q4H PRN Pain MILD(1-3)/Fever >100.5/SWAIN Amiodarone HCl 400 mg 01/10/19 14:00 01/10/19 22:28 Cordarone PO 01/11/19 22:01 400 mg BID [facility] Administration Amiodarone HCl 200 mg 01/12/19 10:00 Cordarone PO QDAY [facility] Apixaban 2.5 mg 01/10/19 14:00 01/10/19 22:29 Eliquis PO Not Given Q12HR [facility] Protocol Carvedilol 6.25 mg 01/10/19 14:00 01/10/19 22:28 Coreg PO 6.25 mg BID [facility] Administration Clonidine HCl 0.2 mg 01/10/19 01:00 01/10/19 22:28 Catapres PO 0.2 mg BID [facility] Administration Epoetin Bravo 10,000 unit 01/11/19 06:00 Procrit SUB-Q JULIA [facility] Famotidine 10 mg 01/10/19 10:00 01/10/19 22:28 Pepcid PO 10 mg BID [facility] Administration Hydromorphone HCl 0.5 mg 01/10/19 00:42 Dilaudid IV Q3H PRN Pain , Severe (7-10) Sodium Chloride 100 mls @ 999 mls/hr 01/09/19 11:58 Nacl 0.9% IV JULIA PRN Hypotension Sodium Chloride 100 mls @ 999 mls/hr 01/10/19 19:03 Nacl 0.9% IV JULIA PRN Hypotension Losartan Potassium 50 mg 01/11/19 10:00 Cozaar PO QDAY FOSTER Ondansetron HCl 4 mg 01/10/19 00:42 Zofran IV Q8H PRN Nausea And Vomiting Oxycodone HCl 5 mg 01/10/19 00:38 Roxicodone PO Q6HR PRN Pain ,(4-6) Sevelamer Carbonate 800 mg 01/10/19 08:00 01/10/19 17:00 Renvela PO 800 mg TIDWM FOSTER Administration Sodium Chloride 10 ml 01/10/19 10:00 01/10/19 22:29 Sodium Chloride Flush Syringe 10 Ml IV 10 ml BID FOSTER Administration Sodium Chloride 10 ml 01/10/19 00:42 Sodium Chloride Flush Syringe 10 Ml IV PRN PRN LINE FLUSH Spironolactone 12.5 mg 01/10/19 14:00 01/10/19 17:20 Aldactone PO Not Given QDAY [facility] Trimethoprim/Sulfamethoxazole 1 each 01/10/19 10:00 01/10/19 12:24 Bactrim Ds PO 1 each DAILY FOSTER Administration
[2019-01-11] MEDS: ELIQUIS PO SCH ×2 (09:44→22:28)
[2019-01-11] MEDS: RENVELA PO SCH ×3 (09:44→20:31)
[2019-01-11] MEDS: PEPCID PO SCH ×2 (09:44→22:28)
[2019-01-11] MEDS: CORDARONE PO SCH ×2 (09:44→22:28)
[2019-01-11] MEDS: COREG PO SCH ×2 (09:45→22:32)
[2019-01-11] MEDS: ALDACTONE PO SCH (09:45)
[2019-01-11] MEDS: BACTRIM DS PO SCH (09:45)
[2019-01-11] MEDS: CATAPRES PO SCH ×2 (09:45→22:32)
[2019-01-11] MEDS: SODIUM CHLORIDE FLUSH SYRINGE 10 ML IV SCH ×2 (09:46→22:28)
--- NOTE | 2019-01-11 09:53 | Progress Note ---
Assessment and Plan Atrial fibrillation, new onset rate controlled on amiodarone and coreg initiated on low dose eliquis for oral anticoagulation TSH of 16.5 Hyperkalemia Chronic Ascites RLL cellulitis Enlarged Polycystic Kidneys End-stage renal disease on hemodialysis Chronic systolic heart failure Nonischemic Cardiomyopathy EF 25-30% by echo this admission no ischemia on MPI 12/2017 Hypertension Hypothyroidism Noncompliance Recommendations: Fluid/sodium restriction. Dialysis for fluid management. Continue afterload agents, beta blockers, amiodarone and low dose oral anticoagulation for atrial fibrillation suppression and nonischemic cardiomyopathy. Otherwise conservative cardiac management. Subjective Date of service: 01/11/19 Interval history: Patient has no complaints. He denies shortness of breath, chest pain and palpitations. Afib with a well controlled ventricular rate seen on telemetry. Objective Vital Signs Temp Pulse Pulse Resp BP Pulse Ox 01/11/19 09:46 138/86 01/11/19 09:45 138/86 01/11/19 08:01 98.2 F 83 16 138/86 95 01/11/19 03:53 97.7 F 01/11/19 03:50 74 20 133/84 95 01/10/19 23:23 98.4 F 01/10/19 23:22 100 H 20 147/96 92 01/10/19 22:28 103 H 157/83 01/10/19 22:15 97 H 18 94 01/10/19 20:00 99.3 F 01/10/19 19:59 90 22 154/88 100 01/10/19 19:36 93 H 01/10/19 16:24 98.3 F 106 H 20 149/90 96 01/10/19 11:57 97.6 F 97 H 16 148/100 94 01/10/19 10:00 90 - Physical Examination General: No Apparent Distress HEENT: Positive: PERRL Neck: Positive: neck supple Cardiac: Positive: irregularly irregular Lungs: Positive: Decreased Breath Sounds Neuro: Positive: Grossly Intact Abdomen: Positive: Distended Extremities: Present: edema - Labs and Meds Cardiac Enzymes 01/11/19 Range/Units 06:45 AST 15 (5-40) units/L CBC 01/11/19 Range/Units 06:45 WBC 4.8 (4.5-11.0) K/mm3 RBC 3.04 L (3.65-5.03) M/mm3 Hgb 9.1 L (11.8-15.2) gm/dl Hct 28.0 L (35.5-45.6) % Plt Count 268 (140-440) K/mm3 Lymph # Research And Development Director [place] # Research And Development Director Eos # Research And Development Director Baso # Research And Development Director Comprehensive Metabolic Panel 01/11/19 Range/Units 06:45 Sodium 139 (137-145) mmol/L Potassium 5.6 H (3.6-5.0) mmol/L Chloride 97.8 L (98-107) mmol/L Carbon Dioxide 27 (22-30) mmol/L BUN 61 H (9-20) mg/dL Creatinine 11.4 H (0.8-1.5) mg/dL Glucose 115 H (75-100) mg/dL Calcium 9.0 (8.4-10.2) mg/dL AST 15 (5-40) units/L ALT 9 (7-56) units/L Alkaline Phosphatase 83 (35-129) units/L Total Protein 7.0 (6.3-8.2) g/dL Albumin 3.0 L (3.9-5) g/dL
[2019-01-11] MEDS ORDERED: COZAAR PO SCH (10:00)
--- NOTE | 2019-01-11 13:48 | Progress Note ---
Assessment and Plan - Patient Problems (1) End-stage renal disease needing dialysis Current Visit: Yes Status: Acute Plan to address problem: Cont HD on MWF schedule, target UF 2-3kg as tolerated (2) Acute exacerbation of CHF (congestive heart failure) Current Visit: Yes Status: Acute Qualifiers: Heart failure type: combined systolic and diastolic Qualified Code(s): I50.43 - Acute on chronic combined systolic (congestive) and diastolic (congestive) heart failure Plan to address problem: volume control with HD. follow cardiology recommendations (3) Hyperkalemia Current Visit: Yes Status: Acute Plan to address problem: to be corrected with HD. cont 2g K renal diet (4) Anemia in chronic kidney disease Current Visit: No Status: Acute Plan to address problem: cont EPO with HD (5) Ascites Current Visit: Yes Status: Acute Qualifiers: Ascites type: other type Qualified Code(s): R18.8 - Other ascites Plan to address problem: awaiting therapeutic paracentesis today. Subjective Date of service: 01/11/19 Principal diagnosis: ESRD Interval history: patient awake, alert, c/o increased abdominal girth. awaiting paracentesis today. Objective - Vital Signs Vital signs: Vital Signs - 12hr 01/11/19 01/11/19 01/11/19 03:50 03:53 08:01 Temperature 97.7 F 98.2 F Pulse Rate 74 83 Respiratory 20 16 Rate Blood Pressure 133/84 138/86 O2 Sat by Pulse 95 95 Oximetry 01/11/19 01/11/19 09:45 09:46 Temperature Pulse Rate Respiratory Rate Blood Pressure 138/86 138/86 O2 Sat by Pulse Oximetry - General Appearance General appearance: well-developed, well-nourished, appears stated age, chronically ill EENT: ATNC, PERRL, mucous membranes moist Neck: no JVD Respiratory: Present: Decreased Breath Sounds Cardiology: regular, S1S2 Gastrointestinal: normoactive bowel sounds, distended Integumentary: no rash, other (+ edema b/l LE ) Neurologic: no focal deficit, alert and oriented x3, strength 5/5, CN 3-12 int act Psychiatric: mood/affect appropriate, cooperative - Lab 01/11/19 06:45 01/11/19 06:45 Most recent lab results Calcium 9.0 mg/dL (8.4-10.2) 01/11/19 06:45 Magnesium 2.40 mg/dL (1.7-2.3) H 01/09/19 10:29 Medications & Allergies - Medications Allergies/Adverse Reactions: Allergies labetalol Allergy (Verified 10/16/18 15:22) Vomiting pt also reports drastic drop in HR polystyrene sulfonate [From Kayexalate] Allergy (Verified 10/16/18 13:24) Unknown tramadol [From Ultram] Adverse Reaction (Verified 03/05/18 15:30) Dizziness Home Medications: Home Medications Medication Instructions Recorded Confirmed Last Taken Type Acetaminophen [Acetaminophen TAB] 650 mg PO Q4H PRN #15 tablet 12/28/18 01/09/19 1 Month Ago Rx ~12/03/18 Sulfamethoxazole/Trimethoprim 1 each PO DAILY #14 tablet 12/28/18 01/09/19 01/03/19 Rx [Bactrim DS TAB] cloNIDine [Catapres] 0.2 mg PO BID #60 tablet 12/28/18 01/09/19 01/03/19 Rx oxyCODONE [roxiCODONE] 5 mg PO Q6HR PRN #20 tablet 12/28/18 01/09/19 01/02/19 Rx Sevelamer Carbonate [Renvela] 800 mg PO TIDWM 01/09/19 01/09/19 Unknown History Active Medications: Generic Name Dose Route Start Last Admin Trade Name Freq PRN Reason Stop Dose Admin Acetaminophen 650 mg 01/10/19 00:42 Tylenol PO Q4H PRN Pain MILD(1-3)/Fever >100.5/SWAIN Amiodarone HCl 400 mg 01/10/19 14:00 01/11/19 09:44 Cordarone PO 01/11/19 22:01 400 mg BID FOSTER Administration Amiodarone HCl 200 mg 01/12/19 10:00 Cordarone PO QDAY FOSTER Apixaban 2.5 mg 01/10/19 14:00 01/11/19 09:44 Eliquis PO 2.5 mg Q12HR FOSTER Administration Protocol Carvedilol 6.25 mg 01/10/19 14:00 01/11/19 09:45 Coreg PO 6.25 mg BID FOSTER Administration Clonidine HCl 0.2 mg 01/10/19 01:00 01/11/19 09:45 Catapres PO 0.2 mg BID FOSTER Administration Epoetin Bravo 10,000 unit 01/11/19 06:00 Procrit SUB-Q JULIA FOSTER Famotidine 10 mg 01/10/19 10:00 01/11/19 09:44 Pepcid PO 10 mg BID FOSTER Administration Hydromorphone HCl 0.5 mg 01/10/19 00:42 Dilaudid IV Q3H PRN Pain , Severe (7-10) Sodium Chloride 100 mls @ 999 mls/hr 01/09/19 11:58 Nacl 0.9% IV JULIA PRN Hypotension Sodium Chloride 100 mls @ 999 mls/hr 01/10/19 19:03 Nacl 0.9% IV JULIA PRN Hypotension Losartan Potassium 50 mg 01/11/19 10:00 01/11/19 09:46 Cozaar PO 50 mg QDAY FOSTER Administration Ondansetron HCl 4 mg 01/10/19 00:42 Zofran IV Q8H PRN Nausea And Vomiting Oxycodone HCl 5 mg 01/10/19 00:38 Roxicodone PO Q6HR PRN Pain ,(4-6) Sevelamer Carbonate 800 mg 01/10/19 08:00 01/11/19 12:50 Renvela PO Not Given TIDWM FOSTER Sodium Chloride 10 ml 01/10/19 10:00 01/11/19 09:46 Sodium Chloride Flush Syringe 10 Ml IV 10 ml BID FOSTER Administration Sodium Chloride 10 ml 01/10/19 00:42 Sodium Chloride Flush Syringe 10 Ml IV PRN PRN LINE FLUSH Spironolactone 12.5 mg 01/10/19 14:00 01/11/19 09:45 Aldactone PO 12.5 mg QDAY FOSTER Administration Trimethoprim/Sulfamethoxazole 1 each 01/10/19 10:00 01/11/19 09:45 Bactrim Ds PO 01/11/19 23:59 1 each DAILY FOSTER Administration
--- NOTE | 2019-01-11 15:12 | Procedure Note ---
Date of procedure: 01/11/19 Pre-op diagnosis: ascites Post-op diagnosis: same Procedure: US paracentesis Findings: moderate ascites Anesthesia: local Surgeon: BARTOLOME IBRAHIM Estimated blood loss: none Pathology: none Specimen disposition: discarded Condition: stable Disposition: floor
--- NOTE | 2019-01-11 23:37 | Progress Note ---
Assessment and Plan Atrial fibrillation, new onset rate controlled on amiodarone and coreg initiated on low dose eliquis for oral anticoagulation TSH of 16.5 Hyperkalemia - management via dialysis Chronic Ascites - fluid removal via dialysis RLL cellulitis - management per primary Enlarged Polycystic Kidneys - followed by nephrology End-stage renal disease on hemodialysis - followed by nephrology Chronic systolic heart failure - continue medical therapy with BB and ARB. Volume removed via dialysis Nonischemic Cardiomyopathy - continue medical therapy with BB and ARB EF 25-30% by echo this admission no ischemia on MPI 12/2017 Hypertension - adequate control. Allow to be on the higher end of normal for dialysis Hypothyroidism - replaced Noncompliance Subjective Date of service: 01/12/19 Principal diagnosis: ESRD Interval history: No acute events. Resting comfortably. No chest pain or SOB. Objective Vital Signs Temp Pulse Pulse Resp BP BP Pulse Ox 01/11/19 22:32 65 136/78 01/11/19 20:24 94 H 19 99 01/11/19 19:53 98.8 F 94 H 16 97/61 99 01/11/19 19:46 98.7 F 16 118/69 01/11/19 19:00 97.6 F 56 L 17 118/69 100 01/11/19 17:21 98.3 F 55 L 18 127/72 99 01/11/19 12:43 56 L 16 137/89 94 01/11/19 12:25 97.7 F 56 L 18 114/76 94 01/11/19 09:46 138/86 01/11/19 09:45 138/86 01/11/19 08:01 98.2 F 83 16 138/86 95 01/11/19 03:53 97.7 F 01/11/19 03:50 74 20 133/84 95 - Physical Examination General: No Apparent Distress HEENT: Positive: PERRL Neck: Positive: neck supple Neuro: Positive: Grossly Intact Abdomen: Positive: Distended Extremities: Present: edema - Labs and Meds Cardiac Enzymes 01/11/19 Range/Units 06:45 AST 15 (5-40) units/L CBC 01/11/19 Range/Units 06:45 WBC 4.8 (4.5-11.0) K/mm3 RBC 3.04 L (3.65-5.03) M/mm3 Hgb 9.1 L (11.8-15.2) gm/dl Hct 28.0 L (35.5-45.6) % Plt Count 268 (140-440) K/mm3 Lymph # Stretcher Leveler Operator Helper [place] # Stretcher Leveler Operator Helper Eos # Stretcher Leveler Operator Helper Baso # Stretcher Leveler Operator Helper Comprehensive Metabolic Panel 01/11/19 Range/Units 06:45 Sodium 139 (137-145) mmol/L Potassium 5.6 H (3.6-5.0) mmol/L Chloride 97.8 L (98-107) mmol/L Carbon Dioxide 27 (22-30) mmol/L BUN 61 H (9-20) mg/dL Creatinine 11.4 H (0.8-1.5) mg/dL Glucose 115 H (75-100) mg/dL Calcium 9.0 (8.4-10.2) mg/dL AST 15 (5-40) units/L ALT 9 (7-56) units/L Alkaline Phosphatase 83 (35-129) units/L Total Protein 7.0 (6.3-8.2) g/dL Albumin 3.0 L (3.9-5) g/dL
[2019-01-12 04:35] VITALS: BP 137/79
--- NOTE | 2019-01-12 09:34 | Discharge Summary ---
Providers - Providers Date of Admission: 01/09/19 11:49 Attending physician: HOLLIS SCOTT 01/09/19 11:48 Consult to Physician [CONS] Urgent Comment: DR MALINDA KENDALL W/ DR LEWIS @[id number] Consulting Provider: NICO LEWIS Physician Instructions: Reason For Exam: hyperkalemia, cardiomyopathy, ESRD on D 01/09/19 12:00 Consult to Physician [CONS] Urgent Comment: I ADVD LASHAE OF SONSULT @[id number] Consulting Provider: DICK KNOX Physician Instructions: Reason For Exam: AFIB RVR CP Primary care physician: [facility] MD DOMINIK Hospitalization Condition: Stable Disposition: DC-30 STILL A PATIENT Exam - Constitutional Vitals: Temp Pulse Resp BP Pulse Ox 97.7 F 51 L 16 137/79 99 01/12/19 04:30 01/12/19 04:30 01/12/19 04:30 01/12/19 04:30 01/12/19 04:30 Plan Follow up with: ZHANE VAQZUEZ MD [Primary Care Provider] - 3-5 Days
[2019-01-12] MEDS ORDERED: CORDARONE PO SCH (10:00)
--- NOTE | 2019-01-14 07:36 | Ultrasound Report ---
ULTRASOUND-GUIDED PARACENTESIS HISTORY: Gross ascitis. PROCEDURE: The risks (including but not limited to bleeding, infection, and bowel injury) and benefi ts were explained to the patient and informed consent was obtained. A time out procedure was perform ed. Ultrasound was used to evaluate the abdomen and locate the largest ascites fluid pocket. Once the sk in was marked, the procedure site was prepped and draped in the usual sterile fashion and lidocaine w as used for local anesthesia. A skin meka was made and a 5 Sudanese centesis catheter was placed. The patient was monitored closely throughout the procedure, and a total of 2200 mL of clear yellow fluid was aspirated. No labs were ordered by the requesting physician. The patient tolerated the procedure well with no complications. IMPRESSION: Successful ultrasound-guided paracentesis as described. Signer Name: Lavelle Aaron Jr, MD Signed: 01/14/2019 7:31 AM Workstation Name: [id number]
== END 2019-01-12 09:00 | disposition left against medical advice (07) | DRG 291 ==
LOC: ED 09:16 → 4A 11:49
PROVIDERS: ADMIT Internal Medicine; ATTEND Internal Medicine
PROC: 5A1D70Z Performance of Urinary Filtration, Intermittent, Less than 6 Hours Per Day (ICD-10-PCS; 2019-01-09)
PROC: 0W9G3ZZ Drainage of Peritoneal Cavity, Percutaneous Approach (ICD-10-PCS; principal; 2019-01-11)
DX: I13.2 Hypertensive heart and chronic kidney disease with heart failure and with stage 5 chronic kidney disease, or end stage renal disease (principal); I50.43 Acute on chronic combined systolic (congestive) and diastolic (congestive) heart failure; N18.6 End stage renal disease; R18.8 Other ascites; Q61.3 Polycystic kidney, unspecified; L03.115 Cellulitis of right lower limb; I42.8 Other cardiomyopathies; I48.91 Unspecified atrial fibrillation; E87.5 Hyperkalemia; S71.101A Unspecified open wound, right thigh, initial encounter; E03.9 Hypothyroidism, unspecified; D63.1 Anemia in chronic kidney disease; I16.0 Hypertensive urgency; E11.22 Type 2 diabetes mellitus with diabetic chronic kidney disease; Z99.2 Dependence on renal dialysis; Z79.01 Long term (current) use of anticoagulants; Z91.14 Patient's other noncompliance with medication regimen; Z79.899 Other long term (current) drug therapy; Z82.49 Family history of ischemic heart disease and other diseases of the circulatory system; Y93.89 Activity, other specified; I89.0 Lymphedema, not elsewhere classified; Y92.89 Other specified places as the place of occurrence of the external cause; Y99.8 Other external cause status; Z53.21 Procedure and treatment not carried out due to patient leaving prior to being seen by health care provider
CPT/HCPCS: 36415; 49083; 70450; 71045; 80048; 80053; 80061; 81001; 82140; 82550; 82553; 82962; 83036; 83735; 83880; 84439; 84443; 84484; 85007; 85025; 85610; 85730; 87040; 93005; 93010; 93306; 96374; 96375; G0378; J1815

== ENCOUNTER 2019-01-18 09:10 | Day surgery (SDC) | payer MEDICARE ==
[2019-01-18] MEDS ORDERED: XYLOCAINE 1% 20 mL ONE (11:17)
[2019-01-18] MEDS ORDERED: ALBURX 25% (ALBUMIN) IV PRN (11:48)
--- NOTE | 2019-01-18 11:48 | Short Stay Summary ---
Short Stay Documentation Date of service: 01/18/19 Narrative H&P: renaldisease, ascites - History Principal diagnosis: ascites - Allergies and Medications Current Medications: Allergies labetalol Allergy (Verified 10/16/18 15:22) Vomiting pt also reports drastic drop in HR polystyrene sulfonate [From Kayexalate] Allergy (Verified 10/16/18 13:24) Unknown tramadol [From Ultram] Adverse Reaction (Verified 03/05/18 15:30) Dizziness Home Medications Medication Instructions Recorded Confirmed Last Taken Type Acetaminophen [Acetaminophen TAB] 650 mg PO Q4H PRN #15 tablet 12/28/18 01/18/19 1 Month Ago Rx ~12/03/18 Sulfamethoxazole/Trimethoprim 1 each PO DAILY #14 tablet 12/28/18 01/18/19 01/16/19 Rx [Bactrim DS TAB] 1 tab cloNIDine [Catapres] 0.2 mg PO BID #60 tablet 12/28/18 01/18/19 01/17/19 Rx 02mg oxyCODONE [roxiCODONE] 5 mg PO Q6HR PRN #20 tablet 12/28/18 01/18/19 01/16/19 Rx 5mg Sevelamer Carbonate [Renvela] 800 mg PO TIDWM 01/09/19 01/18/19 01/10/19 History 800mg - Physical exam General appearance: no acute distress - Brief post op/procedure progress note Date of procedure: 01/18/19 Pre-op diagnosis: ascites Post-op diagnosis: same Procedure: US paracentesis Anesthesia: local Findings: medium ascites Surgeon: BARTOLOME IBRAHIM Estimated blood loss: none Pathology: none Specimen disposition: discarded Condition: stable - Hospital course Hospital course: uneventful - Disposition Condition at discharge: Good Disposition: DC-01 TO HOME OR SELFCARE Short Stay Discharge Plan Follow up with: ZHANE VAZQUEZ MD [Primary Care Provider] - 7 Days
--- NOTE | 2019-01-18 12:37 | Ultrasound Report ---
ULTRASOUND-GUIDED PARACENTESIS HISTORY: Ascites. PROCEDURE: The risks (including but not limited to bleeding, infection, and bowel injury) and benefi ts were explained to the patient and informed consent was obtained. A time out procedure was perform ed. Ultrasound was used to evaluate the abdomen and locate the largest ascites fluid pocket. Once the sk in was marked, the procedure site was prepped and draped in the usual sterile fashion and lidocaine w as used for local anesthesia. A skin meka was made and a 5 Ethiopian centesis catheter was placed. The patient was monitored closely throughout the procedure, and a total of 1100 mL of clear yellow fluid was aspirated. No labs were ordered. The patient tolerated the procedure well with no complications. IMPRESSION: Successful ultrasound-guided paracentesis as described. Signer Name: Lavelle Aaron Jr, MD Signed: 01/18/2019 12:33 PM Workstation Name: [id number]
[2019-01-18 13:01] VITALS: BP 159/87
== END 2019-01-18 13:15 | disposition home or self-care (01) ==
LOC: CATHLABREC 09:10
PROVIDERS: ATTEND Internal Medicine Gastroenterology
DX: R18.8 Other ascites (principal); I13.2 Hypertensive heart and chronic kidney disease with heart failure and with stage 5 chronic kidney disease, or end stage renal disease; N18.6 End stage renal disease; I50.9 Heart failure, unspecified; D64.9 Anemia, unspecified; I20.8 Other forms of angina pectoris; I42.8 Other cardiomyopathies; F41.9 Anxiety disorder, unspecified; E66.9 Obesity, unspecified; Z88.8 Allergy status to other drugs, medicaments and biological substances; Z79.899 Other long term (current) drug therapy; Z91.15 Patient's noncompliance with renal dialysis; Z91.19 Patient's noncompliance with other medical treatment and regimen; Z87.440 Personal history of urinary (tract) infections; Z68.23 Body mass index [BMI] 23.0-23.9, adult; Z99.2 Dependence on renal dialysis; Z98.890 Other specified postprocedural states
CPT/HCPCS: 49083

== ENCOUNTER 2019-01-21 18:03 | Inpatient (IN) | payer MEDICARE ==
[2019-01-21 19:08] LABS: Basophils # (Auto) 0.1 K/mm3 (0.0-0.1); Eosinophils # (Auto) 0.1 K/mm3 (0.0-0.4); Hematocrit 35.1 % (35.5-45.6); Hemoglobin 10.9 gm/dl (11.8-15.2); Lymphocytes # (Auto) 0.9 K/mm3 (1.2-5.4); Lymphocytes % (Auto) 16.5 % (13.4-35.0); Mean Corpuscular HGB Conc 31 % (32-34); Mean Corpuscular Volume 95 fl (84-94); Monocytes # (Auto) 0.7 K/mm3 (0.0-0.8); Monocytes % (Auto) 14.1 % (0.0-7.3); Platelet Count 195 K/mm3 (140-440); Red Blood Count 3.69 M/mm3 (3.65-5.03); Red Cell Distribution Width 17.1 % (13.2-15.2)
[2019-01-21 19:11] LABS: INR 1.25 (0.87-1.13)
[2019-01-21 19:12] LABS: Partial Thromboplastin Time 31.5 Sec. (24.2-36.6)
--- NOTE | 2019-01-21 19:29 | XRay Report ---
CHEST 1 VIEW INDICATION: Dyspnea. COMPARISON: 01/09/2019. FINDINGS: Support devices: None. Heart: Enlarged, unchanged. Lungs/Pleura: Pulmonary venous hypertension is again noted. No focal consolidation, significant effus ion, or pneumothorax. IMPRESSION: 1. Cardiomegaly with pulmonary venous hypertension. Signer Name: Galindo Hirsch MD Signed: 01/21/2019 7:24 PM Workstation Name: [id number]
[2019-01-21 19:31] LABS: Creatine Kinase MB 15.6 ng/mL (0.0-4.0)
[2019-01-21 19:32] LABS: Calcium 9.8 mg/dL (8.4-10.2)
[2019-01-21] MEDS ORDERED: PROVENTIL IH ONE (19:50)
[2019-01-21] MEDS ORDERED: D50W (25GM) Vial IV ONE (19:50)
[2019-01-21] MEDS ORDERED: HumuLIN R IV ONE ×2 (19:51→20:35)
[2019-01-21] MEDS ORDERED: LASIX IV ONE (19:52)
[2019-01-21 19:59] LABS: Chol/HDL Ratio 2.27 %
[2019-01-21] MEDS ORDERED: D50W (25GM) Syringe IV ONE ×3 (20:00→21:09)
--- NOTE | 2019-01-21 20:01 | Emergency Department Report ---
ED Shortness of Breath HPI - General Chief Complaint: Dyspnea/Respdistress Stated Complaint: ABD/CHEST PAIN Time Seen by Provider: 01/21/19 18:21 Source: EMS Mode of arrival: Stretcher Limitations: No Limitations - History of Present Illness Initial Comments: 48-year-old male with a past medical history of end-stage renal disease on dialysis Monday, , and Monday with compliance, nonischemic cardiomyopathy with EF of 25-30%, negative stress test MPI 12/2017, hypertension, polycystic kidneys, recurrent chronic ascites requiring paracentesis, atrial fibrillation recently started on a Eliquis on last admission (d/c on ) but has not filled the script presents to the hospital with complaints of shortness of breath and ascites. Last dialysis was Monday 2 days ago. As per medical record review patient's had a paracentesis on January 03 (2.2L fluid removed), (2.2L), and January 18 (1.1L). Patient does not feel like they took enough fluid off of him because his weight continue to increase a detained to have abdominal distention. Today patient began having significant dyspnea with only taken a couple of steps. He complains of chest pressure and pressure with breathing due to abdominal distention. Patient has minimal urine output have is 1 time a day. - Related Data Home Medications Medication Instructions Recorded Confirmed Last Taken Sevelamer Carbonate [Renvela] 800 mg PO TIDWM 01/09/19 01/18/19 01/10/19 800mg Previous Rx's Medication Instructions Recorded Last Taken Type Acetaminophen [Acetaminophen TAB] 650 mg PO Q4H PRN #15 tablet 12/28/18 1 Month Ago Rx ~12/03/18 Sulfamethoxazole/Trimethoprim 1 each PO DAILY #14 tablet 12/28/18 01/16/19 Rx [Bactrim DS TAB] 1 tab cloNIDine [Catapres] 0.2 mg PO BID #60 tablet 12/28/18 01/17/19 Rx 02mg oxyCODONE [roxiCODONE] 5 mg PO Q6HR PRN #20 tablet 12/28/18 01/16/19 Rx 5mg Allergies Allergy/AdvReac Type Severity Reaction Status Date / Time labetalol Allergy Vomiting Verified 10/16/18 15:22 polystyrene sulfonate Allergy Unknown Verified 10/16/18 13:24 [From Kayexalate] tramadol [From Ultram] AdvReac Dizziness Verified 03/05/18 15:30 ED Review of Systems ROS: Stated complaint: ABD/CHEST PAIN Other details as noted in HPI ED Past Medical Hx - Past Medical History Hx Hypertension: Yes Hx CVA: No Hx Heart Attack/AMI: No Hx Congestive Heart Failure: Yes (diastolic - CHRONIC , CARDIOMYOPATHY) Hx Diabetes: No Hx Deep Vein Thrombosis: No Hx Pulmonary Embolism: No Hx GERD: No Hx Liver Disease: No Hx Renal Disease: Yes (HD TTS) Hx Sickle Cell Disease: No Hx Arthritis: No Hx Headaches / Migraines: No Hx Seizures: No Hx Kidney Stones: No Hx Psychiatric Treatment: No Hx Asthma: No Hx COPD: No Hx Tuberculosis: No Hx Dementia: No Hx HIV: No Additional medical history: Abdominal Hernias, right groin hernia, ascites - Surgical History Hx Coronary Stent: No Hx Open Heart Surgery: No Hx Pacemaker: No Hx Internal Defibrillator: No Hx Cholecystectomy: No Hx Appendectomy: No Hx Breast Surgery: No Additional Surgical History: dialysis access left arm, groin hernia repair, - Social History Smoking Status: Never Smoker - Medications Home Medications: Home Medications Medication Instructions Recorded Confirmed Last Taken Type Acetaminophen [Acetaminophen TAB] 650 mg PO Q4H PRN #15 tablet 12/28/18 01/18/19 1 Month Ago Rx ~12/03/18 Sulfamethoxazole/Trimethoprim 1 each PO DAILY #14 tablet 12/28/18 01/18/19 01/16/19 Rx [Bactrim DS TAB] 1 tab cloNIDine [Catapres] 0.2 mg PO BID #60 tablet 12/28/18 01/18/19 01/17/19 Rx 02mg oxyCODONE [roxiCODONE] 5 mg PO Q6HR PRN #20 tablet 12/28/18 01/18/19 01/16/19 Rx 5mg Sevelamer Carbonate [Renvela] 800 mg PO TIDWM 01/09/19 01/18/19 01/10/19 History 800mg ED Physical Exam - General Limitations: No Limitations ED Course Vital Signs 01/21/19 01/21/19 01/21/19 18:03 18:09 18:47 Temperature 98.5 F Pulse Rate 59 L 87 Respiratory 18 18 17 Rate Blood Pressure 148/118 Blood Pressure 166/69 [Left] O2 Sat by Pulse 100 100 100 Oximetry 01/21/19 19:30 Temperature Pulse Rate 44 L Respiratory 22 Rate Blood Pressure Blood Pressure 166/70 [Left] O2 Sat by Pulse 100 Oximetry - Consultations Consultation #1: 01/21/19 20:29 case d/w Dr Zaynab feldman, plans to perform stat dialysis ED Medical Decision Making - Lab Data Result diagrams: 01/21/19 18:31 01/21/19 18:31 Lab Results 01/21/19 01/21/19 01/21/19 Range/Units 18:31 18:31 18:31 WBC 5.2 (4.5-11.0) K/mm3 RBC 3.69 (3.65-5.03) M/mm3 Hgb 10.9 L (11.8-15.2) gm/dl Hct 35.1 L (35.5-45.6) % MCV 95 H (84-94) fl MCH 30 (28-32) pg MCHC 31 L (32-34) % RDW 17.1 H (13.2-15.2) % Plt Count 195 (140-440) K/mm3 Lymph % (Auto) 16.5 (13.4-35.0) % Major % (Auto) 14.1 H (0.0-7.3) % Eos % (Auto) 2.0 (0.0-4.3) % Baso % (Auto) 1.0 (0.0-1.8) % Lymph # 0.9 L (1.2-5.4) K/mm3 Major # 0.7 (0.0-0.8) K/mm3 Eos # 0.1 (0.0-0.4) K/mm3 Baso # 0.1 (0.0-0.1) K/mm3 Seg Neutrophils % 66.4 (40.0-70.0) % Seg Neutrophils # 3.5 (1.8-7.7) K/mm3 PT 15.4 H (12.2-14.9) Sec. INR 1.25 H (0.87-1.13) APTT 31.5 (24.2-36.6) Sec. Sodium 134 L (137-145) mmol/L Potassium 7.7 H* (3.6-5.0) mmol/L Chloride 91.1 L (98-107) mmol/L Carbon Dioxide 23 (22-30) mmol/L Anion Gap 27 mmol/L BUN 92 H (9-20) mg/dL Creatinine 14.9 H (0.8-1.5) mg/dL Estimated GFR 4 ml/min BUN/Creatinine Ratio 6 % Glucose 102 H (75-100) mg/dL POC Glucose (70-105) Calcium 9.8 (8.4-10.2) mg/dL Total Bilirubin 0.40 (0.1-1.2) mg/dL AST 18 (5-40) units/L ALT 11 (7-56) units/L Alkaline Phosphatase 94 (35-129) units/L Total Creatine Kinase 949 H (55-170) units/L CK-MB (CK-2) 15.6 H (0.0-4.0) ng/mL CK-MB (CK-2) Rel Index 1.6 (0-4) Troponin T 0.822 H* (0.00-0.029) ng/mL Total Protein 8.4 H (6.3-8.2) g/dL Albumin 4.0 (3.9-5) g/dL Albumin/Globulin Ratio 0.9 % Triglycerides 46 (2-149) mg/dL Cholesterol 141 (50-199) mg/dL LDL Cholesterol Direct 86 (50-130) mg/dL HDL Cholesterol 62 H (40-59) mg/dL Cholesterol/HDL Ratio 2.27 % 01/21/19 Range/Units 20:39 WBC (4.5-11.0) K/mm3 RBC (3.65-5.03) M/mm3 Hgb (11.8-15.2) gm/dl Hct (35.5-45.6) % MCV (84-94) fl MCH (28-32) pg MCHC (32-34) % RDW (13.2-15.2) % Plt Count (140-440) K/mm3 Lymph % (Auto) (13.4-35.0) % Major % (Auto) (0.0-7.3) % Eos % (Auto) (0.0-4.3) % Baso % (Auto) (0.0-1.8) % Lymph # (1.2-5.4) K/mm3 Major # (0.0-0.8) K/mm3 Eos # (0.0-0.4) K/mm3 Baso # (0.0-0.1) K/mm3 Seg Neutrophils % (40.0-70.0) % Seg Neutrophils # (1.8-7.7) K/mm3 PT (12.2-14.9) Sec. INR (0.87-1.13) APTT (24.2-36.6) Sec. Sodium (137-145) mmol/L Potassium (3.6-5.0) mmol/L Chloride (98-107) mmol/L Carbon Dioxide (22-30) mmol/L Anion Gap mmol/L BUN (9-20) mg/dL Creatinine (0.8-1.5) mg/dL Estimated GFR ml/min BUN/Creatinine Ratio % Glucose (75-100) mg/dL POC Glucose 147 H (70-105) Calcium (8.4-10.2) mg/dL Total Bilirubin (0.1-1.2) mg/dL AST (5-40) units/L ALT (7-56) units/L Alkaline Phosphatase (35-129) units/L Total Creatine Kinase (55-170) units/L CK-MB (CK-2) (0.0-4.0) ng/mL CK-MB (CK-2) Rel Index (0-4) Troponin T (0.00-0.029) ng/mL Total Protein (6.3-8.2) g/dL Albumin (3.9-5) g/dL Albumin/Globulin Ratio % Triglycerides (2-149) mg/dL Cholesterol (50-199) mg/dL LDL Cholesterol Direct (50-130) mg/dL HDL Cholesterol (40-59) mg/dL Cholesterol/HDL Ratio % - EKG Data -: EKG Interpreted by Me (junctional rthytm rate 48, no stemi) - EKG Data When compared to previous EKG there are: changes noted - Radiology Data Radiology results: report reviewed CHEST 1 VIEW INDICATION: Dyspnea. COMPARISON: 01/09/2019. FINDINGS: Support devices: None. Heart: Enlarged, unchanged. Lungs/Pleura: Pulmonary venous hypertension is again noted. No focal consolidation, significant effusion, or pneumothorax. IMPRESSION: 1. Cardiomegaly with pulmonary venous hypertension. - Medical Decision Making Patient presents to the Hospital of fluid retention, ascites, CHF, and hyperkalemia. Meds given for hyperkalemia with exception of Kayexalate since allergy is listed. Case discussed with assistant professor of drama will perform stat dialysis tonight. Hospitalist to admit. Patient may need repeat paracentesis for symptomatic relief. Patient has been noncompliant with his recently prescribed Eliquis for afib. Junctional Rhythm noted related to electrolyte abnormalities. Chronic troponin elevation noted - Differential Diagnosis CHF, VT, arrhythmia, volume overload, hyperkalemia Critical Care Time: No Critical care attestation.: If time is entered above; I have spent that time in minutes in the direct care of this critically ill patient, excluding procedure time. ED Disposition Clinical Impression: Hyperkalemia, End-stage renal disease needing dialysis, Volume overload, Ascites, Junctional rhythm Disposition: OP ADMIT IP TO THIS HOSP Is pt being admited?: Yes Condition: Stable Time of Disposition: 20:48 (admitted to Dr. Velasco hospitalist)
[2019-01-21] MEDS ORDERED: CALCIUM GLUCONATE 1,000 MG in NACL 0.9% 100 ML IV ONE (20:15)
[2019-01-21] MEDS ORDERED: NACL 0.9% 100 ML IV PRN (22:42)
--- NOTE | 2019-01-21 23:01 | History and Physical Report ---
History of Present Illness Date of examination: 01/21/19 Date of admission: 01/21/19 21:39 History of present illness: 48-year-old man with a history of polycystic kidney disease, hypertension, Afib, recurrent ascites ,end-stage renal disease and dialysis comes emergency room with complaints of shortness of breath and increased abdominal girth. He stated his stomach feels full, dyspnea and exertion, difficulty speaking in full sentences and feeling tired. He had a paracentesis done on Monday, 1-1/2 L was taken off, usually 3-4 L taken off from his paracentesis. His abdominal girth did not improve after his paracentesis Review Of Systems: Constitutional: no Fever, no weight loss Ears, eyes, nose, mouth and throat: no nasal congestion, no nasal discharge, no sinus pressure, blurry vision, diplopia Neck: No neck pain or rigidity. Cardiovascular: orthopnea, palpitations Respiratory: No cough Gastrointestinal: abdominal pain, hematochezia Genitourinary : no dysuria, frequency Musculoskeletal: no muscle ache Integumentary: no rash, no pruritis Neurological: no parathesias, focal weakness Endocrine: no cold or heat intolerance, no polyuria or polydipsia Hematologic/Lymphatic: no easy bruising, no easy bleeding, no gland swelling Allergic/Immunologic: no urticaria, no angioedema. PAST MEDICAL HISTORY:polycystic kidney disease, hypertension, afib, end-stage renal disease, recurrent ascites PAST SURGICAL HISTORY: AV fistula, hernia repair FAMILY HISTORY: hypertension SOCIAL HISTORY: Denies alcohol, tobacco, drug Medications and Allergies Allergies Allergy/AdvReac Type Severity Reaction Status Date / Time labetalol Allergy Vomiting Verified 10/16/18 15:22 polystyrene sulfonate Allergy Unknown Verified 10/16/18 13:24 [From Kayexalate] tramadol [From Ultram] AdvReac Dizziness Verified 03/05/18 15:30 Home Medications Medication Instructions Recorded Confirmed Last Taken Type Acetaminophen [Acetaminophen TAB] 650 mg PO Q4H PRN #15 tablet 12/28/18 01/21/19 01/20/19 Rx Sulfamethoxazole/Trimethoprim 1 each PO DAILY #14 tablet 12/28/18 01/21/19 01/20/19 Rx [Bactrim DS TAB] cloNIDine [Catapres] 0.2 mg PO BID #60 tablet 12/28/18 01/21/1901/20/19 Rx oxyCODONE [roxiCODONE] 5 mg PO Q6HR PRN #20 tablet 12/28/18 01/21/19 01/20/19 Rx Sevelamer Carbonate [Renvela] 800 mg PO TIDWM 01/09/19 01/21/19 01/20/19 History Active Meds: Active Medications Enoxaparin Sodium (Lovenox) 30 mg SUB-Q QDAY FOSTER Sodium Chloride (Nacl 0.9%) 100 mls @ 999 mls/hr IV JULIA PRN PRN Reason: Hypotension Exam - Physical Exam Narrative exam: General Apperance: The patient lying in bed, breathing comfortable HEENT: Normocephalic, atraumatic. Pupils equally round and reactive to light, EOMI, no sclericterus or JVD or thyromegaly or nodule. , no carotid bruit, mucous membranes moist, no exudate or erythema Heart: S1-S2, regular is rhythm Lungs: Clear to auscultation bilaterally, breathing comfortable Abdomen: Positive bowel sounds, soft, distended, nontender, difficult to assess for organomegaly Extremities: + edema up to thighs no cyanosis clubbing Skin: no rash, nodule, warm and dry Neuro: cranial nerves 2-12 intact, speech is fluent, motor/sensory intact - Constitutional Vitals: Temp Pulse Resp BP Pulse Ox 98.7 F 53 L 20 176/86 98 01/21/19 22:10 01/21/19 22:45 01/21/19 22:10 01/21/19 22:45 01/21/19 20:00 Results - Labs CBC & Chem 7: 01/21/19 18:31 01/21/19 18:31 Labs: Abnormal lab results 01/21/19 01/21/19 01/21/19 Range/Units 18:31 18:31 18:31 Hgb 10.9 L (11.8-15.2) gm/dl Hct 35.1 L (35.5-45.6) % MCV 95 H (84-94) fl MCHC 31 L (32-34) % RDW 17.1 H (13.2-15.2) % [place] % (Auto) 14.1 H (0.0-7.3) % Lymph # 0.9 L (1.2-5.4) K/mm3 PT 15.4 H (12.2-14.9) Sec. INR 1.25 H (0.87-1.13) Sodium 134 L (137-145) mmol/L Potassium 7.7 H* (3.6-5.0) mmol/L Chloride 91.1 L (98-107) mmol/L BUN 92 H (9-20) mg/dL Creatinine 14.9 H (0.8-1.5) mg/dL Glucose 102 H (75-100) mg/dL POC Glucose (70-105) Total Creatine Kinase 949 H (55-170) units/L CK-MB (CK-2) 15.6 H (0.0-4.0) ng/mL Troponin T 0.822 H* (0.00-0.029) ng/mL Total Protein 8.4 H (6.3-8.2) g/dL HDL Cholesterol 62 H (40-59) mg/dL 01/21/19 Range/Units 20:39 Hgb (11.8-15.2) gm/dl Hct (35.5-45.6) % MCV (84-94) fl MCHC (32-34) % RDW (13.2-15.2) % [place] % (Auto) (0.0-7.3) % Lymph # (1.2-5.4) K/mm3 PT (12.2-14.9) Sec. INR (0.87-1.13) Sodium (137-145) mmol/L Potassium (3.6-5.0) mmol/L Chloride (98-107) mmol/L BUN (9-20) mg/dL Creatinine (0.8-1.5) mg/dL Glucose (75-100) mg/dL POC Glucose 147 H (70-105) Total Creatine Kinase (55-170) units/L CK-MB (CK-2) (0.0-4.0) ng/mL Troponin T (0.00-0.029) ng/mL Total Protein (6.3-8.2) g/dL HDL Cholesterol (40-59) mg/dL - Imaging and Cardiology EKG: image reviewed Chest x-ray: report reviewed Assessment and Plan Assessment Fluid Overload, need emergent HD Hyperkalemia Abnormal cardiac enzymes Afib Hypertension ESRD Polycystic kidney disease Plan Admit to medicine s/p cocktail for hyperkalemia Renal was consulted for urgent dialysis check cardiac enzymes, echo DVT prophylaxis
[2019-01-22] MEDS ORDERED: NACL 0.9 (PRIMING MACHINE ONLY DIALYSIS) MC ONE (00:27)
[2019-01-22] MEDS ORDERED: ZOFRAN IV PRN (00:36)
[2019-01-22] MEDS ORDERED: SODIUM CHLORIDE FLUSH SYRINGE 10 ML IV PRN (00:36)
[2019-01-22] MEDS ORDERED: TYLENOL PO PRN (00:36)
[2019-01-22 01:14] LABS: Hepatitis B Surface Antigen Non-Reactive (Negative); Hepatitis C Virus Antibody Non-Reactive (NonReactive)
[2019-01-22] MEDS: ROXICODONE PO PRN ×3 (08:00→17:50)
[2019-01-22 08:10] LABS: Calcium 9.1 mg/dL (8.4-10.2)
[2019-01-22] MEDS: RENVELA PO SCH ×4 (08:30→18:04)
--- NOTE | 2019-01-22 09:39 | Consultation ---
History of Present Illness - Reason for Consult end stage renal disease - History of Present Illness 48-year-old gentleman with medical history significant for polycystic kidney disease systolic congestive heart failure, end-stage renal disease due to his severe hyperkalemia and volume overload has had apparent recurrent ascites complain of exertional dyspnea. Denies any fevers chills reports his compliance with dialysis reports he was recently started on losartan he has had regular paracentesis done however he still complains of abdominal bloating and distention Medications and Allergies Allergies Allergy/AdvReac Type Severity Reaction Status Date / Time labetalol Allergy Vomiting Verified 10/16/18 15:22 polystyrene sulfonate Allergy Unknown Verified 10/16/18 13:24 [From Kayexalate] tramadol [From Ultram] AdvReac Dizziness Verified 03/05/18 15:30 Home Medications Medication Instructions Recorded Confirmed Last Taken Type Acetaminophen [Acetaminophen TAB] 650 mg PO Q4H PRN #15 tablet 12/28/18 01/21/19 01/20/19 Rx Sulfamethoxazole/Trimethoprim 1 each PO DAILY #14 tablet 12/28/18 01/21/19 0 01/20/19 Rx [Bactrim DS TAB] cloNIDine [Catapres] 0.2 mg PO BID #60 tablet 12/28/18 01/21/19 01/20/19 Rx oxyCODONE [roxiCODONE] 5 mg PO Q6HR PRN #20 tablet 12/28/18 01/21/19 01/20/19 Rx Sevelamer Carbonate [Renvela] 800 mg PO TIDWM 01/09/19 01/21/19 01/20/19 History Active Meds: Active Medications Acetaminophen (Tylenol) 650 mg PO Q4H PRN PRN Reason: Pain MILD(1-3)/Fever >100.5/SWAIN Apixaban (Eliquis) 2.5 mg PO Q12HR FOSTER; Protocol Clonidine HCl (Catapres) 0.2 mg PO BID FOSTER Sodium Chloride (Nacl 0.9%) 100 mls @ 999 mls/hr IV JULIA PRN PRN Reason: Hypotension Ondansetron HCl (Zofran) 4 mg IV Q8H PRN PRN Reason: Nausea And Vomiting Oxycodone HCl (Roxicodone) 5 mg PO Q6H PRN PRN Reason: Pain , Severe (7-10) Sevelamer Carbonate (Renvela) 800 mg PO TIDWM FOSTER Sodium Chloride (Sodium Chloride Flush Syringe 10 Ml) 10 ml IV BID FOSTER Sodium Chloride (Sodium Chloride Flush Syringe 10 Ml) 10 ml IV PRN PRN PRN Reason: LINE FLUSH Review of Systems Constitutional: weight gain, anorexia, fatigue, no weight loss, no fever, no chills, no sweats Ears, nose, mouth and throat: no deferred, no ear pain Cardiovascular: orthopnea, dyspnea on exertion, paroxysmal nocturnal dyspnea, no chest pain Respiratory: no cough, no cough with sputum Gastrointestinal: abdominal pain, no nausea, no vomiting, no diarrhea Genitourinary Male: no dysuria, no hematuria, no flank pain Rectal: no pain, no incontinence Musculoskeletal: no neck stiffness, no neck pain Integumentary: no deferred Neurological: no head injury, no transient paralysis Psychiatric: no anxiety, no memory loss Endocrine: no cold intolerance, no heat intolerance Hematologic/Lymphatic: no easy bruising, no easy bleeding Exam - Vital Signs Vital signs: Vital Signs Resp Pulse Ox 18 100 01/21/19 18:03 01/21/19 18:03 - General Appearance General appearance: well-developed, well-nourished EENT: ATNC, PERRL, mucous membranes moist Neck: Present: JVD/HJR Respiratory: Decreased Breath Sounds Heart: regular (thank you), S1S2 Gastrointestinal: Present: normoactive bowel sounds, distended, organomegaly, other (affect is) Integumentary: rash Neurologic: alert and oriented x3, CN 3-12 intact Musculoskeletal: Present: joint swelling, other (lower extremity edema) Results - Lab Results 01/21/19 18:31 01/22/19 07:45 Most recent lab results Calcium 9.1 mg/dL (8.4-10.2) 01/22/19 07:45 - Image Kidney/bladder ultrasound: other (I reviewed chest x-ray with interstitial edema) Assessment and Plan - Patient Problems (1) End-stage renal disease needing dialysis Current Visit: Yes Status: Acute Plan to address problem: End-stage renal disease We initiated dialysis Receive dialysis overnight Patient terminated treatment after 3 hours We have placed dialysis orders again for today Emphasized the need for repeat dialysis to improve volume status and electrolytes abnormalities (2) Hyperkalemia Current Visit: Yes Status: Acute Plan to address problem: Hyperkalemia Initial potassium was 7.7 received dialysis overnight repeat potassium today is 5.8 We'll repeat dialysis again today (3) Acute and chronic respiratory failure with hypoxia Current Visit: No Status: Acute Plan to address problem: Acute on chronic respiratory failure with hypoxia Continue ultrafiltration with dialysis (4) Acute exacerbation of CHF (congestive heart failure) Current Visit: No Status: Acute Qualifiers: Heart failure type: combined systolic and diastolic Qualified Code(s): I50.43 - Acute on chronic combined systolic (congestive) and diastolic (congestive) heart failure Plan to address problem: Acute congestive heart failure Patient with history of chronic CHF admitted with worsening shortness of breath Continue ultrafiltration with dialysis
--- NOTE | 2019-01-22 09:54 | Progress Note ---
Assessment and Plan 48-year-old man with a history of polycystic kidney disease, hypertension, Afib, recurrent ascites ,end-stage renal disease and dialysis comes emergency room with complaints of shortness of breath and increased abdominal girth. He stated his stomach feels full, dyspnea and exertion, difficulty speaking in full sentences and feeling tired. He had a paracentesis done on Monday, 1-1/2 L was taken off, usually 3-4 L taken off from his paracentesis. His abdominal girth did not improve after his paracentesis - ESRD continue with HD Polycystic kidney disease - Fluid Overload, had emergent HD last night - Recurrent Ascites For Paracentesis - Hyperkalemia Improved to 5.8 from 7.7 with hemodialysis - Abnormal cardiac enzymes Elevated troponin may be secondary to his ESRD Will trend -Afib With controlled in the 50s Anticoagulated at - Hypertension Optimize control - DVT prophylaxis with heparin until patient - CODE STATUS: Patient is full code Subjective Date of service: 01/22/19 Principal diagnosis: ESRD on HD, recurrent ascites, afebrile, hypertension, hyperkalemia Interval history: Patient is seen and examined. Complains of abdominal distention and discomfort. He is paracenteses abdomen isn't a weekly basis. Objective - Exam Narrative Exam: Constitutional: Well-nourished well-developed. In no distress Head: Normocephalic atraumatic Eyes: Pupils are equal round and reactive to light Nose: No enlarged turbinates, no septal deviation. Mouth: Moist mucous membranes. Neck: Supple no thyromegaly. No bruit. No JVD Heart: Regular rate and rhythm, S1-S2 normal. No rubs murmurs or gallop Lungs: Decreased breath sounds bilaterally,no rales or rhonchi Abdomen: Tenderness and distended, Bowel sound are present. Extremities: 3+ edema g. Neuro: Alert oriented Oriented x3. No focal sensory or motor deficit. Skin: No rashes or hyperpigmented spots Musculoskeletal system: No joint pain or swelling Hematological: No petechia or subcutanous hemorrhages. Immunological: No multiple septic spots on the skin Lymphatic: No generalized lymphadenopathy Psychiatry: Euthymic. Calm. - Constitutional Vitals: Vital Signs - 12hr 01/21/19 01/21/19 01/21/19 22:10 22:15 22:30 Temperature 98.7 F Pulse Rate 57 L 55 L 53 L Respiratory 20 Rate Blood Pressure 177/90 179/89 176/85 O2 Sat by Pulse Oximetry 01/21/19 01/21/19 01/21/19 22:45 23:00 23:15 Temperature Pulse Rate 53 L 55 L 53 L Respiratory Rate Blood Pressure 176/86 169/79 183/82 O2 Sat by Pulse Oximetry 01/21/19 01/21/19 01/22/19 23:30 23:45 00:00 Temperature Pulse Rate 54 L 53 L 55 L Respiratory Rate Blood Pressure 172/87 166/85 186/88 O2 Sat by Pulse Oximetry 01/22/19 01/22/19 01/22/19 00:15 00:30 00:45 Temperature Pulse Rate 53 L 51 L 53 L Respiratory Rate Blood Pressure 173/83 174/81 189/101 O2 Sat by Pulse Oximetry 01/22/19 01/22/19 01/22/19 01:00 01:15 01:40 Temperature 98.2 F Pulse Rate 51 L 55 L 55 L Respiratory 18 Rate Blood Pressure 168/88 183/72 183/72 O2 Sat by Pulse Oximetry 01/22/19 01/22/19 01/22/19 02:30 03:08 05:20 Temperature 97.4 F L 98.0 F Pulse Rate 59 L 55 L 57 L Respiratory 20 20 Rate Blood Pressure 212/92 176/68 O2 Sat by Pulse 100 92 Oximetry 01/22/19 07:56 Temperature 97.8 F Pulse Rate 54 L Respiratory 16 Rate Blood Pressure 161/75 O2 Sat by Pulse 94 Oximetry - Labs CBC & Chem 7: 01/21/19 18:31 01/22/19 07:45 Labs: Abnormal lab results 01/21/19 01/21/19 01/21/19 Range/Units 18:31 18:31 18:31 Hgb 10.9 L (11.8-15.2) gm/dl Hct 35.1 L (35.5-45.6) % MCV 95 H (84-94) fl MCHC 31 L (32-34) % RDW 17.1 H (13.2-15.2) % [place] % (Auto) 14.1 H (0.0-7.3) % Lymph # 0.9 L (1.2-5.4) K/mm3 PT 15.4 H (12.2-14.9) Sec. INR 1.25 H (0.87-1.13) Sodium 134 L (137-145) mmol/L Potassium 7.7 H* (3.6-5.0) mmol/L Chloride 91.1 L (98-107) mmol/L BUN 92 H (9-20) mg/dL Creatinine 14.9 H (0.8-1.5) mg/dL Glucose 102 H (75-100) mg/dL POC Glucose (70-105) Total Creatine Kinase 949 H (55-170) units/L CK-MB (CK-2) 15.6 H (0.0-4.0) ng/mL Troponin T 0.822 H* (0.00-0.029) ng/mL NT-Pro-B Natriuret Pep (0-450) pg/mL Total Protein 8.4 H (6.3-8.2) g/dL HDL Cholesterol 62 H (40-59) mg/dL 01/21/19 01/21/19 01/21/19 Range/Units 20:39 21:16 22:30 Hgb (11.8-15.2) gm/dl Hct (35.5-45.6) % MCV (84-94) fl MCHC (32-34) % RDW (13.2-15.2) % [place] % (Auto) (0.0-7.3) % Lymph # (1.2-5.4) K/mm3 PT (12.2-14.9) Sec. INR (0.87-1.13) Sodium (137-145) mmol/L Potassium (3.6-5.0) mmol/L Chloride (98-107) mmol/L BUN (9-20) mg/dL Creatinine (0.8-1.5) mg/dL Glucose (75-100) mg/dL POC Glucose 147 H 210 H (70-105) Total Creatine Kinase (55-170) units/L CK-MB (CK-2) (0.0-4.0) ng/mL Troponin T (0.00-0.029) ng/mL NT-Pro-B Natriuret Pep 03823 H (0-450) pg/mL Total Protein (6.3-8.2) g/dL HDL Cholesterol (40-59) mg/dL 01/22/19 Range/Units 07:45 Hgb (11.8-15.2) gm/dl Hct (35.5-45.6) % MCV (84-94) fl MCHC (32-34) % RDW (13.2-15.2) % [place] % (Auto) (0.0-7.3) % Lymph # (1.2-5.4) K/mm3 PT (12.2-14.9) Sec. INR (0.87-1.13) Sodium (137-145) mmol/L Potassium 5.8 H D (3.6-5.0) mmol/L Chloride 95.9 L (98-107) mmol/L BUN 58 H (9-20) mg/dL Creatinine 11.4 H (0.8-1.5) mg/dL Glucose (75-100) mg/dL POC Glucose (70-105) Total Creatine Kinase (55-170) units/L CK-MB (CK-2) (0.0-4.0) ng/mL Troponin T (0.00-0.029) ng/mL NT-Pro-B Natriuret Pep (0-450) pg/mL Total Protein (6.3-8.2) g/dL HDL Cholesterol (40-59) mg/dL
[2019-01-22] MEDS ORDERED: LOVENOX SUB-Q SCH (10:00)
[2019-01-22] MEDS: CATAPRES PO SCH ×3 (10:06→22:09)
[2019-01-22] MEDS: ELIQUIS PO SCH ×2 (10:07→22:10)
[2019-01-22] MEDS: SODIUM CHLORIDE FLUSH SYRINGE 10 ML IV SCH ×2 (10:07→22:10)
[2019-01-23 07:57] VITALS: BP 167/83
[2019-01-23] MEDS: RENVELA PO SCH (08:55)
[2019-01-23] MEDS: CATAPRES PO SCH (09:05)
[2019-01-23] MEDS: SODIUM CHLORIDE FLUSH SYRINGE 10 ML IV SCH (09:06)
[2019-01-23] MEDS: ELIQUIS PO SCH (09:07)
[2019-01-23] MEDS ORDERED: ALBURX 25% (ALBUMIN) IV PRN (11:25)
--- NOTE | 2019-01-23 11:29 | Short Stay Summary ---
Invasive Assessment - Date Date of service: 01/23/19 - History & Physical History of Present Illness: Recurrent ascites Allergies/Adverse Reactions: Allergies labetalol Allergy (Verified 10/16/18 15:22) Vomiting pt also reports drastic drop in HR polystyrene sulfonate [From Kayexalate] Allergy (Verified 10/16/18 13:24) Unknown tramadol [From Ultram] Adverse Reaction (Verified 03/05/18 15:30) Dizziness Home Medications: Home Medications Medication Instructions Recorded Confirmed Last Taken Type Acetaminophen [Acetaminophen TAB] 650 mg PO Q4H PRN #15 tablet 12/28/18 01/21/19 01/20/19 Rx Sulfamethoxazole/Trimethoprim 1 each PO DAILY #14 tablet 12/28/18 01/21/19 01/20/19 Rx [Bactrim DS TAB] cloNIDine [Catapres] 0.2 mg PO BID #60 tablet 12/28/18 01/21/19 01/20/19 Rx oxyCODONE [roxiCODONE] 5 mg PO Q6HR PRN #20 tablet 12/28/18 01/21/19 01/20/19 Rx Sevelamer Carbonate [Renvela] 800 mg PO TIDWM 01/09/19 01/21/19 01/20/19 History - Procedure Note Procedure: Ultrasound-guided paracentesis. Please refer to the dictation from today for further details. Findings: Ascites. Please refer to the dictation from today for further details. Pathology: none Estimated blood loss: minimal Tolerated Procedure Well: Yes Complications: none Invasive Assessment DC Note - Disposition Disposition: DC-30 STILL A PATIENT - Instructions Follow up with: PRIMARY CARE, [Primary Care Provider] - 7 Days
--- NOTE | 2019-01-23 13:15 | Ultrasound Report ---
Ultrasound-guided paracentesis HISTORY: gross ascites. Dyspnea and abdominal pain PROCEDURE: The risks (including but not limited to bleeding, infection, and bowel injury) and benefi ts were explained to the patient and informed consent was obtained. A time out procedure was perform ed. Ultrasound was used to evaluate the abdomen and locate the largest ascites fluid pocket. Once the sk in was marked, the procedure site was prepped and draped in the usual sterile fashion and lidocaine w as used for local anesthesia. A skin meka was made and a 6-[place] paracentesis catheter was placed. The patient was monitored closely throughout the procedure, and a total of 3000 mL of straw-colored fluid was aspirated. The patient tolerated the procedure well with no complications. IMPRESSION: Successful paracentesis as above with a total of 3000 mL of straw-colored fluid aspirated . Signer Name: Heath Hill MD Signed: 01/23/2019 1:11 PM Workstation Name: [id number]
== END 2019-01-23 13:55 | disposition home or self-care (01) | DRG 291 ==
LOC: ED 18:03 → 4A 21:39
PROVIDERS: ADMIT Internal Medicine; ATTEND Family Medicine
PROC: 5A1D70Z Performance of Urinary Filtration, Intermittent, Less than 6 Hours Per Day (ICD-10-PCS; 2019-01-21)
PROC: 5A1D70Z Performance of Urinary Filtration, Intermittent, Less than 6 Hours Per Day (ICD-10-PCS; 2019-01-22)
PROC: 0W9G3ZZ Drainage of Peritoneal Cavity, Percutaneous Approach (ICD-10-PCS; principal; 2019-01-23)
DX: I13.2 Hypertensive heart and chronic kidney disease with heart failure and with stage 5 chronic kidney disease, or end stage renal disease (principal); N18.6 End stage renal disease; I50.43 Acute on chronic combined systolic (congestive) and diastolic (congestive) heart failure; J96.21 Acute and chronic respiratory failure with hypoxia; Q61.3 Polycystic kidney, unspecified; R18.8 Other ascites; E87.70 Fluid overload, unspecified; I42.9 Cardiomyopathy, unspecified; E87.5 Hyperkalemia; I48.91 Unspecified atrial fibrillation; Z99.2 Dependence on renal dialysis; Z82.49 Family history of ischemic heart disease and other diseases of the circulatory system; Z88.8 Allergy status to other drugs, medicaments and biological substances; Z88.6 Allergy status to analgesic agent
CPT/HCPCS: 36415; 49083; 71045; 80048; 80053; 80061; 80074; 82550; 82553; 82962; 83880; 84484; 85025; 85610; 85730; 87116; 93005; 93010; 94644; G0378; J0610; J1815; J1940; J7030

== ENCOUNTER 2019-02-01 08:01 | Outpatient (CLI) | payer MEDICARE ==
[2019-02-01] MEDS ORDERED: XYLOCAINE 1% 20 mL ONE (10:05)
--- NOTE | 2019-02-01 10:14 | Short Stay Summary ---
Short Stay Documentation Date of service: 02/01/19 - History Principal diagnosis: ascites Past Medical History: renal failure - Allergies and Medications Current Medications: Allergies labetalol Allergy (Verified 10/16/18 15:22) Vomiting pt also reports drastic drop in HR polystyrene sulfonate [From Kayexalate] Allergy (Verified 10/16/18 13:24) Unknown tramadol [From Ultram] Adverse Reaction (Verified 03/05/18 15:30) Dizziness Home Medications Medication Instructions Recorded Confirmed Last Taken Type Acetaminophen [Acetaminophen TAB] 650 mg PO Q4H PRN #15 tablet 12/28/18 02/01/19 01/20/19 Rx cloNIDine [Catapres] 0.2 mg PO BID #60 tablet 12/28/18 02/01/19 01/31/19 Rx oxyCODONE [roxiCODONE] 5 mg PO Q6HR PRN #20 tablet 12/28/18 02/01/19 1 Week Ago Rx ~01/25/19 Sevelamer Carbonate [Renvela] 800 mg PO TIDWM 01/09/19 02/01/19 1 Week Ago History ~01/25/19 Atenolol [Tenormin] 50 mg PO DAILY 02/01/19 02/01/19 01/31/19 History - Physical exam General appearance: no acute distress Gastrointestinal: normoactive bowel sounds, distended - Brief post op/procedure progress note Date of procedure: 02/01/19 Pre-op diagnosis: ascites Post-op diagnosis: same Procedure: US paracentesis Anesthesia: local Findings: moderate ascites Surgeon: BARTOLOME IBRAHIM Estimated blood loss: none Pathology: none Specimen disposition: discarded Condition: stable - Hospital course Hospital course: uneventful - Disposition Condition at discharge: Good Disposition: DC-01 TO HOME OR SELFCARE Short Stay Discharge Plan Follow up with: PRIMARY CARE, [Primary Care Provider] - 7 Days
[2019-02-01] MEDS ORDERED: ALBURX 25% (ALBUMIN) IV PRN (11:30)
[2019-02-01 12:00] VITALS: BP 150/95
--- NOTE | 2019-02-01 14:55 | Ultrasound Report ---
ULTRASOUND-GUIDED PARACENTESIS HISTORY: ascites. PROCEDURE: The risks (including but not limited to bleeding, infection, and bowel injury) and benefi ts were explained to the patient and informed consent was obtained. A time out procedure was perform ed. Ultrasound was used to evaluate the abdomen and locate the largest ascites fluid pocket. Once the sk in was marked, the procedure site was prepped and draped in the usual sterile fashion and lidocaine w as used for local anesthesia. A skin meka was made and a 5 [place] centesis catheter was placed. The patient was monitored closely throughout the procedure, and a total of 3000 mL of clear yellow fluid was aspirated. No labs were ordered by the requesting physician. The patient tolerated the procedure well with no complications. IMPRESSION: Successful ultrasound-guided paracentesis as described. Signer Name: Lavelle Aaron Jr, MD Signed: 02/01/2019 2:50 PM Workstation Name: [id number]
== END 2019-02-01 11:55 | disposition home or self-care (01) ==
LOC: CATHLABREC 08:01
PROVIDERS: ATTEND Internal Medicine Gastroenterology
DX: R18.8 Other ascites (principal)
CPT/HCPCS: 49083

== ENCOUNTER 2019-02-08 07:56 | Day surgery (SDC) | payer MEDICARE ==
[2019-02-08 09:04] LABS: INR 1.25 (0.87-1.13)
[2019-02-08 09:05] LABS: Partial Thromboplastin Time 41.9 Sec. (24.2-36.6)
[2019-02-08] MEDS ORDERED: ALBURX 25% (ALBUMIN) IV PRN (09:37)
--- NOTE | 2019-02-08 09:37 | Short Stay Summary ---
Short Stay Documentation Date of service: 02/08/19 - History Principal diagnosis: ascites Past Medical History: renal failure - Allergies and Medications Current Medications: Allergies labetalol Allergy (Verified 10/16/18 15:22) Vomiting pt also reports drastic drop in HR polystyrene sulfonate [From Kayexalate] Allergy (Verified 10/16/18 13:24) Unknown tramadol [From Ultram] Adverse Reaction (Verified 03/05/18 15:30) Dizziness Home Medications Medication Instructions Recorded Confirmed Last Taken Type Acetaminophen [Acetaminophen TAB] 650 mg PO Q4H PRN #15 tablet 12/28/18 02/08/19 01/20/19 Rx cloNIDine [Catapres] 0.2 mg PO BID #60 tablet 12/28/18 02/08/19 2 Days Ago Rx ~02/06/19 oxyCODONE [roxiCODONE] 5 mg PO Q6HR PRN #20 tablet 12/28/18 02/08/19 1 Week Ago Rx ~02/01/19 Sevelamer Carbonate [Renvela] 800 mg PO TIDWM 01/09/19 02/08/19 02/07/19 History Atenolol [Tenormin] 50 mg PO DAILY 02/01/19 02/08/19 02/06/19 History Aspirin [Adult Aspirin] 81 mg PO PRN PRN 02/08/19 02/08/19 2 Days Ago History ~02/06/19 - Physical exam General appearance: no acute distress Gastrointestinal: distended - Brief post op/procedure progress note Date of procedure: 02/08/19 Pre-op diagnosis: ascites Post-op diagnosis: same Procedure: US paracentesis Anesthesia: local Findings: medium ascites Surgeon: BARTOLOME IBRAHIM Estimated blood loss: none Pathology: none Specimen disposition: discarded Condition: stable - Hospital course Hospital course: uneventful - Disposition Condition at discharge: Good Disposition: DC-01 TO HOME OR SELFCARE Short Stay Discharge Plan Follow up with: PRIMARY CARE, [Primary Care Provider] - 7 Days
--- NOTE | 2019-02-08 10:18 | Ultrasound Report ---
ULTRASOUND-GUIDED PARACENTESIS HISTORY: ascites. PROCEDURE: The risks (including but not limited to bleeding, infection, and bowel injury) and benefi ts were explained to the patient and informed consent was obtained. A time out procedure was perform ed. Ultrasound was used to evaluate the abdomen and locate the largest ascites fluid pocket. Once the sk in was marked, the procedure site was prepped and draped in the usual sterile fashion and lidocaine w as used for local anesthesia. A skin meka was made and a 5 [place] centesis catheter was placed. The patient was monitored closely throughout the procedure, and a total of 3200 mL of clear yellow fluid was aspirated. No labs were ordered. The patient tolerated the procedure well with no complications. IMPRESSION: Successful ultrasound-guided paracentesis as described. Signer Name: Lavelle Aaron Jr, MD Signed: 02/08/2019 10:14 AM Workstation Name: [id number]
[2019-02-08 10:36] VITALS: BP 176/102
== END 2019-02-08 10:50 | disposition home or self-care (01) ==
LOC: CATHLABREC 07:56
PROVIDERS: ATTEND Internal Medicine Gastroenterology
DX: R18.8 Other ascites (principal); I13.2 Hypertensive heart and chronic kidney disease with heart failure and with stage 5 chronic kidney disease, or end stage renal disease; N18.6 End stage renal disease; I50.22 Chronic systolic (congestive) heart failure; F17.200 Nicotine dependence, unspecified, uncomplicated; D64.9 Anemia, unspecified; K21.9 Gastro-esophageal reflux disease without esophagitis; I20.8 Other forms of angina pectoris; I42.9 Cardiomyopathy, unspecified; E66.9 Obesity, unspecified; F41.9 Anxiety disorder, unspecified; Z87.440 Personal history of urinary (tract) infections; Z91.14 Patient's other noncompliance with medication regimen; Z86.79 Personal history of other diseases of the circulatory system; Z79.899 Other long term (current) drug therapy; Z79.82 Long term (current) use of aspirin; Z91.19 Patient's noncompliance with other medical treatment and regimen; Z68.37 Body mass index [BMI] 37.0-37.9, adult; Z99.2 Dependence on renal dialysis; Z98.890 Other specified postprocedural states
CPT/HCPCS: 36415; 49083; 85610; 85730

== ENCOUNTER 2019-02-20 16:01 | Observation (INO) | payer MEDICARE ==
--- NOTE | 2019-02-20 17:23 | Emergency Department Report ---
ED General Adult HPI - General Chief complaint: Dyspnea/Respdistress Stated complaint: MADDIE Time Seen by Provider: 02/20/19 17:06 Source: patient, EMS (ems notes not available at time of chart dictation), RN notes reviewed, old records reviewed Mode of arrival: Stretcher Limitations: Physical Limitation - History of Present Illness Initial comments: This is a 48-year-old gentleman. I have evaluated this patient in the past. His advanced quality engineer is Dr. Sanchez. His magento developer is Dr. Mercedes [phone] His past medical history includes end-stage renal disease, on dialysis, Monday, , Monday, hypothyroidism, hypertension, chronic ascites, presumed nonischemic cardiomyopathy. He reportedly gets paracentesis as an outpatient every Monday. He reports that he was at dialysis this week as scheduled, and the only took off 1.5 L of fluid, rather than the usual 4 L. He has abdominal swelling and distention, and chronic lower extremity swelling. He has mild tightness in the aforementioned areas. He is requesting paracentesis. Swelling is constant, cramping, and typically decreases with adequate hemodialysis, and paracentesis. -: Gradual Location: left, right, lower extremity Consistency: intermittent Improves with: other - Related Data Home Medications Medication Instructions Recorded Confirmed Last Taken Sevelamer Carbonate [Renvela] 800 mg PO TIDWM 01/09/19 02/20/19 02/19/19 Atenolol [Tenormin] 50 mg PO DAILY 02/01/19 02/20/19 02/19/19 Aspirin [Adult Aspirin] 81 mg PO PRN PRN 02/08/19 02/20/19 02/19/19 Previous Rx's Medication Instructions Recorded Last Taken Type Acetaminophen [Acetaminophen TAB] 650 mg PO Q4H PRN #15 tablet 12/28/18 02/19/19 Rx cloNIDine [Catapres] 0.2 mg PO BID #60 tablet 12/28/18 02/19/19 Rx oxyCODONE [roxiCODONE] 5 mg PO Q6HR PRN #20 tablet 12/28/18 02/19/19 Rx Allergies Allergy/AdvReac Type Severity Reaction Status Date / Time labetalol Allergy Vomiting Verified 10/16/18 15:22 polystyrene sulfonate Allergy Unknown Verified 10/16/18 13:24 [From Kayexalate] tramadol [From Ultram] AdvReac Dizziness Verified 03/05/18 15:30 ED Review of Systems ROS: Stated complaint: MADDIE Other details as noted in HPI Constitutional: denies: fever Eyes: denies: eye discharge Respiratory: shortness of breath Cardiovascular: edema Gastrointestinal: other (abdominal distention). denies: nausea, vomiting Musculoskeletal: myalgia Neurological: weakness ED Past Medical Hx - Past Medical History Hx Hypertension: Yes Hx CVA: No Hx Heart Attack/AMI: No Hx Congestive Heart Failure: Yes (diastolic - CHRONIC , CARDIOMYOPATHY) Hx Diabetes: No Hx Deep Vein Thrombosis: No Hx Pulmonary Embolism: No Hx GERD: No Hx Liver Disease: No Hx Renal Disease: Yes (HD TTS) Hx Sickle Cell Disease: No Hx Arthritis: No Hx Headaches / Migraines: No Hx Seizures: No Hx Kidney Stones: No Hx Psychiatric Treatment: No Hx Asthma: No Hx COPD: No Hx Tuberculosis: No Hx Dementia: No Hx HIV: No Additional medical history: Abdominal Hernias, right groin hernia, ascites - Surgical History Hx Coronary Stent: No Hx Open Heart Surgery: No Hx Pacemaker: No Hx Internal Defibrillator: No Hx Cholecystectomy: No Hx Appendectomy: No Hx Breast Surgery: No Additional Surgical History: dialysis access left arm, groin hernia repair, - Social History Smoking Status: Never Smoker Substance Use Type: None - Medications Home Medications: Home Medications Medication Instructions Recorded Confirmed Last Taken Type Acetaminophen [Acetaminophen TAB] 650 mg PO Q4H PRN #15 tablet 12/28/18 02/20/19 02/19/19 Rx cloNIDine [Catapres] 0.2 mg PO BID #60 tablet 12/28/18 02/20/19 02/19/19 Rx oxyCODONE [roxiCODONE] 5 mg PO Q6HR PRN #20 tablet 12/28/18 02/20/19 02/19/19 Rx Sevelamer Carbonate [Renvela] 800 mg PO TIDWM 01/09/19 02/20/19 02/19/19 History Atenolol [Tenormin] 50 mg PO DAILY 02/01/19 02/20/19 02/19/19 History Aspirin [Adult Aspirin] 81 mg PO PRN PRN 02/08/19 02/20/19 02/19/19 History ED Physical Exam - General Limitations: No Limitations General appearance: alert, in no apparent distress, obese - Head Head exam: Present: atraumatic, normocephalic - Eye Eye exam: Present: normal appearance, EOMI. Absent: nystagmus - ENT ENT exam: Present: normal exam, normal orophraynx, mucous membranes moist, normal external ear exam - Neck Neck exam: Present: normal inspection, full ROM. Absent: tenderness, menin gismus - Respiratory Respiratory exam: Present: decreased breath sounds. Absent: respiratory distress, wheezes, rales, rhonchi, stridor - Cardiovascular Cardiovascular Exam: Present: regular rate, normal rhythm, normal heart sounds. Absent: bradycardia, tachycardia, irregular rhythm, systolic murmur, diastolic murmur, rubs, gallop - GI/Abdominal GI/Abdominal exam: Present: soft, distended. Absent: tenderness, guarding, rebound, rigid, pulsatile mass - Rectal Rectal exam: Present: deferred - Extremities Exam Extremities exam: Present: normal inspection (chronic venous stasis noted. Upper extremity fistula with no redness, pus or streaking), pedal edema (3+ edema noted in the bilateral lower extremities), other (2+ pulses noted in the bilateral upper, lower extremities. Compartments soft. No long bony tenderness. The pelvis is stable.). Absent: calf tenderness - Back Exam Back exam: Present: normal inspection, full ROM. Absent: tenderness, CVA t enderness (R), CVA tenderness (L), paraspinal tenderness, vertebral tenderness - Neurological Exam Neurological exam: Present: alert, oriented X3, other (Extraocular movements intact. Tongue midline. No facial droop. Facial sensation intact to light touch in the V1, V2, V3 distribution bilaterally. 5 and 5 strength in 4 extremities.. Sensation is intact to light touch in 4 extremities.). Absent: motor sensory deficit - Psychiatric Psychiatric exam: Present: normal affect, normal mood - Skin Skin exam: Present: warm ED Course Vital Signs 02/20/19 02/20/19 02/20/19 12:30 16:22 16:29 Temperature 97.4 F L Pulse Rate 48 L Pulse Rate [ Anterior Bilateral Throughout] Respiratory 22 Rate Respiratory Rate [Anterior Bilateral Throughout] Blood Pressure 174/83 174/83 O2 Sat by Pulse 94 96 97 Oximetry 09/25/19 09/25/19 09/25/19 16:31 16:45 17:01 Temperature Pulse Rate 51 L 46 L Pulse Rate [ Anterior Bilateral Throughout] Respiratory 26 H 15 Rate Respiratory Rate [Anterior Bilateral Throughout] Blood Pressure 174/83 174/83 173/74 O2 Sat by Pulse 96 94 99 Oximetry 02/20/19 02/20/19 02/20/19 17:15 17:31 17:45 Temperature Pulse Rate 50 L 50 L 48 L Pulse Rate [ Anterior Bilateral Throughout] Respiratory 13 25 H 23 Rate Respiratory Rate [Anterior Bilateral Throughout] Blood Pressure 174/83 180/73 173/74 O2 Sat by Pulse 92 100 98 Oximetry 02/20/19 02/20/19 02/20/19 18:01 18:15 18:31 Temperature Pulse Rate Pulse Rate [ Anterior Bilateral Throughout] Respiratory Rate Respiratory Rate [Anterior Bilateral Throughout] Blood Pressure 180/93 180/93 176/90 O2 Sat by Pulse 97 93 99 Oximetry 02/20/19 02/20/19 02/20/19 18:45 19:00 19:15 Temperature Pulse Rate Pulse Rate [ Anterior Bilateral Throughout] Respiratory Rate Respiratory Rate [Anterior Bilateral Throughout] Blood Pressure 176/90 179/84 179/84 O2 Sat by Pulse 94 96 100 Oximetry 02/20/19 02/20/19 02/20/19 19:30 19:45 20:01 Temperature Pulse Rate 48 L 55 L 63 Pulse Rate [ 47 L Anterior Bilateral Throughout] Respiratory 15 21 23 Rate Respiratory 16 Rate [Anterior Bilateral Throughout] Blood Pressure 166/90 166/90 205/103 O2 Sat by Pulse 100 98 95 Oximetry 02/20/19 02/20/19 02/20/19 20:15 20:30 20:31 Temperature Pulse Rate 64 67 Pulse Rate [ 68 Anterior Bilateral Throughout] Respiratory 22 23 Rate Respiratory 14 Rate [Anterior Bilateral Throughout] Blood Pressure 205/103 208/103 O2 Sat by Pulse 96 94 Oximetry 02/20/19 02/20/19 02/20/19 20:45 21:00 21:15 Temperature Pulse Rate 68 69 70 Pulse Rate [ Anterior Bilateral Throughout] Respiratory 20 24 27 H Rate Respiratory Rate [Anterior Bilateral Throughout] Blood Pressure 208/103 213/96 213/96 O2 Sat by Pulse 96 95 96 Oximetry 02/20/19 02/20/19 02/20/19 21:31 21:39 21:41 Temperature Pulse Rate 74 72 70 Pulse Rate [ Anterior Bilateral Throughout] Respiratory 14 22 Rate Respiratory Rate [Anterior Bilateral Throughout] Blood Pressure 202/101 181/80 181/81 O2 Sat by Pulse 98 97 Oximetry 02/20/19 02/20/19 02/20/19 21:51 22:00 22:10 Temperature Pulse Rate 72 72 73 Pulse Rate [ Anterior Bilateral Throughout] Respiratory 19 20 22 Rate Respiratory Rate [Anterior Bilateral Throughout] Blood Pressure 181/81 186/85 186/85 O2 Sat by Pulse 96 98 96 Oximetry - Reevaluation(s) Reevaluation #1: 02/20/19 18:56 Differential diagnosis, including but not limited to: Ascites, hyperkalemia, uremia, azotemia, fluid overload Assessment and plan: 48-year-old gentleman with a primary request for paracentesis. He is afebrile with reassuring vital signs, with the exception of elevated blood pressure which is chronic. He does not appear to have acute respiratory distress at this time. X-ray of the chest is unremarkable at this time. No crackles or rales noted on examination. Screening laboratory studies ordered. We'll reassess after data points have resulted. Reevaluation #2: 02/20/19 19:15 Laboratory studies show uremia, azotemia, hyperkalemia. Nephrology on-call was paged. Hyperkalemia cocktail was ordered. Hospital physician is paged. Reevaluation #3: 02/20/19 20:00 [employer] Nicanor Ellington working with Dr Sadia Hodge accepts patient to the medical service - Consultations Consultation #1: 02/20/19 19:18 Case is discussed with nephrology, Dr. Ashley Joshua, who agrees with medical management, and indicates that he will arrange for urgent dialysis ED Medical Decision Making - Lab Data Result diagrams: 02/21/19 04:52 02/21/19 04:52 Vital Signs 02/20/19 02/20/19 02/20/19 12:30 16:22 16:29 Temperature 97.4 F L Pulse Rate 48 L Respiratory 22 Rate Blood Pressure 174/83 174/83 O2 Sat by Pulse 94 96 97 Oximetry 02/20/19 02/20/19 02/20/19 16:31 16:45 17:01 Temperature Pulse Rate 51 L 46 L Respiratory 26 H 15 Rate Blood Pressure 174/83 174/83 173/74 O2 Sat by Pulse 96 94 99 Oximetry 02/20/19 02/20/19 02/20/19 17:15 17:31 17:45 Temperature Pulse Rate 50 L 50 L 48 L Respiratory 13 25 H 23 Rate Blood Pressure 174/83 180/73 173/74 O2 Sat by Pulse 92 100 98 Oximetry 02/20/19 18:01 Temperature Pulse Rate Respiratory Rate Blood Pressure 180/93 O2 Sat by Pulse 97 Oximetry - EKG Data -: EKG Interpreted by Sd - EKG Data 02/20/19 18:57 This EKG shows a bradycardic rate, 52 bpm, normal axis, QTC 488 ms, left ventricular hypertrophy, no endorsement of chest pain, atrial enlargement, the EKG is abnormal, the EKG is not consistent with ST elevation myocardial infarction, it appears to be grossly unchanged from prior EKG from December 2018. - Radiology Data Radiology results: report reviewed, image reviewed Print Report Referring Physician: HOLLIS TOLEDO Patient Name: RENALDO WAYNE Date of : 1970 Sex: Male Report Date: 2019-02-20 Report Status: Finalized Findings [facility] [address] [place] [address] XRay Report Signed Patient: RENALDO WAYNE MR#: [id number] : 1970 Acct:[id number] Age/Sex: 48 / M ADM Date: 02/20/19 Loc: ED Attending Dr: Ordering Physician: HOLLIS TOLEDO MD Date of Service: 02/20/19 Procedure(s): XR chest 1V ap Accession Number(s): [id number] cc: HOLLIS TOLEDO MD Fluoro Time In Minutes: CHEST 1 VIEW INDICATION: sob esrd. COMPARISON: 12/28. FINDINGS: Support devices: None. Heart: Enlarged, unchanged. Lungs/Pleura: Low lung volumes with mild atelectatic changes in the bases. Prominent pulmonary veins are again noted. IMPRESSION: 1. No significant change. Signer Name: Galindo Hirsch MD Signed: 02/20/2019 5:52 PM Workstation Name: [id number] Transcribed By: Dictated By: Galindo Hirsch MD Electronically Authenticated By: Galindo Hirsch MD Signed Date/Time: 02/20/19 5838 Critical care attestation.: If time is entered above; I have spent that time in minutes in the direct care of this critically ill patient, excluding procedure time. ED Disposition Clinical Impression: Hyperkalemia, End-stage renal disease needing dialysis, Ascites, Hypertensive urgency Disposition: OP ADMIT IP TO THIS HOSP Is pt being admited?: Yes Condition: Good
--- NOTE | 2019-02-20 17:57 | XRay Report ---
CHEST 1 VIEW INDICATION: sob esrd. COMPARISON: 01/21/2019. FINDINGS: Support devices: None. Heart: Enlarged, unchanged. Lungs/Pleura: Low lung volumes with mild atelectatic changes in the bases. Prominent pulmonary veins are again noted. IMPRESSION: 1. No significant change. Signer Name: Galindo Hirsch MD Signed: 02/20/2019 5:52 PM Workstation Name: [id number]
[2019-02-20 18:42] LABS: Hematocrit 33.7 % (35.5-45.6); Hemoglobin 10.8 gm/dl (11.8-15.2); Mean Corpuscular HGB Conc 32 % (32-34); Mean Corpuscular Volume 91 fl (84-94); Platelet Count 137 K/mm3 (140-440); Red Blood Count 3.69 M/mm3 (3.65-5.03); Red Cell Distribution Width 16.8 % (13.2-15.2)
[2019-02-20 18:58] LABS: Calcium 8.4 mg/dL (8.4-10.2); INR 1.25 (0.87-1.13)
[2019-02-20] MEDS ORDERED: SODIUM BICARB 8.4% 50 MEQ/50 ML SYRINGE IV ONE ×2 (19:12)
[2019-02-20] MEDS ORDERED: hydrALAZINE 20 MG/1 ML INJ IV ONE (19:12)
[2019-02-20] MEDS ORDERED: CALCIUM GLUCONATE 1,000 MG in SODIUM CHLORIDE 0.9% 100 ML IV ONE (19:12)
[2019-02-20] MEDS ORDERED: ALBUTEROL 2.5 MG/3 ML NEBU IH ONE (19:12)
[2019-02-20] MEDS ORDERED: DEXTROSE 50% IN WATER (25GM) 50 ML SYRINGE IV ONE (19:12)
[2019-02-20] MEDS ORDERED: DEXTROSE 50% IN WATER (25GM) 50 ML SYRINGE IV PRN (19:12)
[2019-02-20] MEDS ORDERED: INSULIN REGULAR, HUMAN 100 UNITS/1 ML IV ONE (19:12)
[2019-02-20] MEDS ORDERED: SODIUM BICARBONATE 2 MEQ/2 ML SYRINGE IV STA (19:12)
[2019-02-20] MEDS ORDERED: MORPHINE 2 MG/1 ML INJ ONE (19:50)
[2019-02-20] MEDS ORDERED: ONDANSETRON 4 MG/2 ML INJ IV PRN (20:36)
[2019-02-20] MEDS ORDERED: ASPIRIN EC 81 MG TAB PO PRN (20:36)
[2019-02-20] MEDS ORDERED: ACETAMINOPHEN 325 MG TAB PO PRN (20:36)
[2019-02-20] MEDS ORDERED: oxyCODONE 5 MG TAB PO PRN (20:36)
[2019-02-20] MEDS ORDERED: ALBUTEROL 2.5 MG/3 ML NEBU IH PRN (20:36)
--- NOTE | 2019-02-20 21:01 | History and Physical Report ---
History of Present Illness Date of examination: 02/20/19 Date of admission: 02/20/19 Chief complaint: Abdominal swelling and SOB History of present illness: 48-year-old -[place] male with history of ESRD on HD, recurrent ascites, polycystic kidney disease, hypertension, and A. fib who is [facility] ED with complaints of shortness of breath, increased abdominal girth, and abdominal cramping. Pt states that he went to Dialysis on Friday 02/16, and request to have 1.5L removed per hour, instead only 1.5L was removed during the session. He returned to the Dialysis clinic on 02/19 and a total of 4L was removed, however pt remained volume overload. The excess fluid has contributed to his shortness of breath which is worse with exertion and improves with rest. Additionally he is complaining of increase abdominal girth and cramping. Pt has been getting weekly therapeutic paracentesis each session removing approximately 3-4 L. Past History Past Medical History: atrial fib, ESRD (on HD /), hypertension, other (recurrent ascites, polycystic kidney disease, Abdominal Hernias, right groin hernia, ). denies: heart failure (chronic diastolic, cardiomyopathy) Past Surgical History: Other (left arm AV Fistula, groin hernia repair) Social history: lives with family Family history: no significant family history Medications and Allergies Allergies Allergy/AdvReac Type Severity Reaction Status Date / Time labetalol Allergy Vomiting Verified 10/16/18 15:22 polystyrene sulfonate Allergy Unknown Verified 10/16/18 13:24 [From Kayexalate] tramadol [From Ultram] AdvReac Dizziness Verified 03/05/18 15:30 Home Medications Medication Instructions Recorded Confirmed Last Taken Type Acetaminophen [Acetaminophen TAB] 650 mg PO Q4H PRN #15 tablet 12/28/18 02/20/19 02/19/19 Rx cloNIDine [Catapres] 0.2 mg PO BID #60 tablet 12/28/18 02/20/19 02/19/19 Rx oxyCODONE [roxiCODONE] 5 mg PO Q6HR PRN #20 tablet 12/28/18 02/20/19 02/19/19 Rx Sevelamer Carbonate [Renvela] 800 mg PO TIDWM 01/09/19 02/20/19 02/19/19 History Atenolol [Tenormin] 50 mg PO DAILY 02/01/19 02/20/19 02/19/19 History Aspirin [Adult Aspirin] 81 mg PO PRN PRN 02/08/19 02/20/19 02/19/19 History Active Meds: Active Medications Acetaminophen (Tylenol) 650 mg PO Q4H PRN PRN Reason: Pain MILD(1-3)/Fever >100.5/SWAIN Albuterol (Proventil) 2.5 mg IH Q3HRT PRN PRN Reason: Shortness Of Breath Aspirin (Halfprin Ec) 81 mg PO PRN PRN PRN Reason: Pain , Severe (7-10) Atenolol (Tenormin) 50 mg PO DAILY [facility] Clonidine HCl (Catapres) 0.2 mg PO BID [facility] Dextrose (D50w (25gm) Syringe) 50 ml IV PRN PRN PRN Reason: Hypoglycemia Docusate Sodium (Colace) 100 mg PO BID [facility] Heparin Sodium (Porcine) (Heparin) 5,000 unit SUB-Q Q12HR [facility] Ondansetron HCl (Zofran) 4 mg IV Q8H PRN PRN Reason: Nausea And Vomiting Oxycodone HCl (Roxicodone) 5 mg PO Q6HR PRN PRN Reason: Pain , Severe (7-10) Sevelamer Carbonate (Renvela) 800 mg PO TIDWM [facility] Sodium Chloride (Sodium Chloride Flush Syringe 10 Ml) 10 ml IV BID [facility] Sodium Chloride (Sodium Chloride Flush Syringe 10 Ml) 10 ml IV PRN PRN PRN Reason: LINE FLUSH Review of Systems All systems: negative Constitutional: weakness Cardiovascular: shortness of breath, leg edema Respiratory: dyspnea on exertion Gastrointestinal: abdominal pain (crampign), other (ascites) Musculoskeletal: myalgias Exam - Physical Exam Narrative exam: Physical exam General appearance: Present: Mild distress, alert and oriented 3, well developed, pleasant, adult -[place] male - EENT Eyes: Present: PERRL, EOM intact, ENT: hearing intact, normal dentition - Neck Neck: Present: supple, normal ROM - Respiratory Respiratory effort: Non-labored Respiratory: Bibasilar crackles - Cardiovascular Heart rate: 52 (bpm) Rhythm: SB Heart Sounds: Present: - Extremities Extremities: no ischemia, pulses intact, chronic bilateral lower extremity lymphedema - Peripheral Assessment Peripheral Pulses: within normal limits - Abdominal General gastrointestinal: Ascites, non-tender, normal bowel sounds - Integumentary Integumentary: Present: warm, dry, - Musculoskeletal Musculoskeletal: Able to move all extremities -Neurological Neurological: CN II-XII grossly intact - Psychiatric Psychiatric: cooperative - Constitutional Vitals: Temp Pulse Resp BP Pulse Ox 97.4 F L 64 22 205/103 96 02/20/19 16:22 02/20/19 20:15 02/20/19 20:15 02/20/19 20:15 02/20/19 20:15 Results - Labs CBC & Chem 7: 02/20/19 18:24 02/20/19 18:24 Labs: Laboratory Last Values WBC 4.5 K/mm3 (4.5-11.0) 02/20/19 18:24 RBC 3.69 M/mm3 (3.65-5.03) 02/20/19 18:24 Hgb 10.8 gm/dl (11.8-15.2) L 02/20/19 18:24 Hct 33.7 % (35.5-45.6) L 02/20/19 18:24 MCV 91 fl (84-94) 02/20/19 18:24 MCH 29 pg (28-32) 02/20/19 18:24 MCHC 32 % (32-34) 02/20/19 18:24 RDW 16.8 % (13.2-15.2) H 02/20/19 18:24 Plt Count 137 K/mm3 (140-440) L 02/20/19 18:24 PT 15.4 Sec. (12.2-14.9) H 02/20/19 18:24 INR 1.25 (0.87-1.13) H 02/20/19 18:24 Sodium 137 mmol/L (137-145) 02/20/19 18:24 Potassium 6.4 mmol/L (3.6-5.0) H* 02/20/19 18:24 Chloride 95.3 mmol/L (98-107) L 02/20/19 18:24 Carbon Dioxide 24 mmol/L (22-30) 02/20/19 18:24 24 mmol/L 02/20/19 18:24 BUN 75 mg/dL (9-20) H 02/20/19 18:24 12.7 mg/dL (0.8-1.5) H 02/20/19 18:24 Estimated GFR 5 ml/min 02/20/19 18:24 6 % 02/20/19 18:24 Glucose 98 mg/dL (75-100) 02/20/19 18:24 POC Glucose 106 (70-105) H 02/20/19 19:33 Calcium 8.4 mg/dL (8.4-10.2) 02/20/19 18:24 - Imaging and Cardiology Imaging and Cardiology: CXR: FINDINGS: Support devices: None. Heart: Enlarged, unchanged. Lungs/Pleura: Low lung volumes with mild atelectatic changes in the bases. Prominent pulmonary veins are again noted. IMPRESSION: 1. No significant change. Assessment and Plan Assessment and plan: 48-year-old -[place] male with history of ESRD on HD, recurrent ascites, polycystic kidney disease, hypertension, and A. fib who is [facility] ED with complaints of shortness of breath, increased abdominal girth, and abdominal cramping. Fluid overload -Likely related to insufficient amount of fluid removal on 02/16 -Continue supportive care ESRD on HD - T// -Last dialyzed on 02/19 for removing 4L, (previously dialyzed on 02/16 removing 1.5L, which pt stated was not enough) -Nephrology following with plans for urgent dialysis Hyperkalemia -6.4 on admission -Received hyperkalemic cocktail -Continue to monitor electrolytes Ascites -Hx of recurrent ascites requiring weekly therapeutic paracentesis -US guided paracentesis ordered HTN -Monitor BP -Resume home antihypertensive meds to optimize BP -IV hydralazine when necessary DVT PPX -on Heparin Advance Directives: No VTE prophylaxis?: Chemical Plan of care discussed with patient/family: Yes
[2019-02-20] MEDS ORDERED: hydrALAZINE 20 MG/1 ML INJ IV PRN (21:13)
[2019-02-20] MEDS ORDERED: hydrALAZINE 20 MG/1 ML INJ ONE (21:38)
[2019-02-20] MEDS ORDERED: diphenhydrAMINE 50 MG/ML VIAL IV PRN (21:55)
[2019-02-21] MEDS: DOCUSATE SODIUM 100 MG CAP PO SCH ×3 (00:13→15:22)
[2019-02-21] MEDS: cloNIDine 0.2 MG TAB PO SCH ×2 (00:13→15:17)
[2019-02-21] MEDS: HEPARIN 5,000 UNIT/1 ML VIAL SUB-Q SCH ×2 (00:13→15:17)
[2019-02-21 05:27] LABS: Basophils # (Auto) 0.1 K/mm3 (0.0-0.1); Basophils % (Auto) 0.8 % (0.0-1.8); Eosinophils # (Auto) 0.1 K/mm3 (0.0-0.4); Eosinophils % (Auto) 1.4 % (0.0-4.3); Hematocrit 32.4 % (35.5-45.6); Hemoglobin 10.5 gm/dl (11.8-15.2); Lymphocytes % (Auto) 15.5 % (13.4-35.0); Mean Corpuscular HGB Conc 32 % (32-34); Mean Corpuscular Volume 92 fl (84-94); Monocytes # (Auto) 0.9 K/mm3 (0.0-0.8); Monocytes % (Auto) 13.7 % (0.0-7.3); Red Blood Count 3.54 M/mm3 (3.65-5.03); Red Cell Distribution Width 16.8 % (13.2-15.2)
[2019-02-21 05:41] LABS: Calcium 8.4 mg/dL (8.4-10.2)
[2019-02-21 06:17] LABS: Platelet Count 144 K/mm3 (140-440)
[2019-02-21] MEDS: SEVELAMER CARBONATE 800 MG TAB PO SCH ×4 (08:00→16:33)
[2019-02-21] MEDS ORDERED: ALBUMIN HUMAN 25% (25 GM/100 ML) INJ IV PRN (09:47)
--- NOTE | 2019-02-21 12:10 | Consultation ---
History of Present Illness - Reason for Consult Consult date: 02/21/19 - History of Present Illness patient with ESRD on HD every MWF was admitted yesterday for worsening abd distention and shortness of breath, his labs showed elevated and hyperkalemia cocktail was ordered, renal consult was requested for HD management Past History Past Medical History: atrial fib, ESRD (on HD T//), hypertension, other (recurrent ascites, polycystic kidney disease, Abdominal Hernias, right groin hernia, ). denies: heart failure (chronic diastolic, cardiomyopathy) Past Surgical History: Other (left arm AV Fistula, groin hernia repair) Social history: lives with family Family history: no significant family history Medications and Allergies Allergies Allergy/AdvReac Type Severity Reaction Status Date / Time labetalol Allergy Vomiting Verified 10/16/18 15:22 polystyrene sulfonate Allergy Unknown Verified 10/16/18 13:24 [From Kayexalate] tramadol [From Ultram] AdvReac Dizziness Verified 03/05/18 15:30 Home Medications Medication Instructions Recorded Confirmed Last Taken Type Acetaminophen [Acetaminophen TAB] 650 mg PO Q4H PRN #15 tablet 12/28/18 02/20/19 02/19/19 Rx cloNIDine [Catapres] 0.2 mg PO BID #60 tablet 12/28/18 02/20/19 02/19/19 Rx oxyCODONE [roxiCODONE] 5 mg PO Q6HR PRN #20 tablet 12/28/18 02/20/19 02/19/19 Rx Sevelamer Carbonate [Renvela] 800 mg PO TIDWM 01/09/19 02/20/19 02/19/19 History Atenolol [Tenormin] 50 mg PO DAILY 02/01/19 02/20/19 02/19/19 History Aspirin [Adult Aspirin] 81 mg PO PRN PRN 02/08/19 02/20/19 02/19/19 History Active Meds: Active Medications Acetaminophen (Tylenol) 650 mg PO Q4H PRN PRN Reason: Pain MILD(1-3)/Fever >100.5/SWAIN Albumin Human (Alburx 25% (Albumin)) 25 gm IV ONCE PRN PRN Reason: if > 5 liters of fluid removed Stop: 02/22/19 22:00 Albuterol (Proventil) 2.5 mg IH Q3HRT PRN PRN Reason: Shortness Of Breath Aspirin (Halfprin Ec) 81 mg PO PRN PRN PRN Reason: Pain , Severe (7-10) Atenolol (Tenormin) 50 mg PO DAILY [facility] Clonidine HCl (Catapres) 0.2 mg PO BID [facility] Last Admin: 02/21/19 00:13 Dose: 0.2 mg Documented by: Dextrose (D50w (25gm) Syringe) 50 ml IV PRN PRN PRN Reason: Hypoglycemia Diphenhydramine HCl (Benadryl) 25 mg IV Q6H PRN PRN Reason: Itching Docusate Sodium (Colace) 100 mg PO BID [facility] Last Admin: 02/21/19 00:13 Dose: Not Given Documented by: Heparin Sodium (Porcine) (Heparin) 5,000 unit SUB-Q Q12HR [facility] Last Admin: 02/21/19 00:13 Dose: Not Given Documented by: Hydralazine HCl (Apresoline) 10 mg IV Q4H PRN PRN Reason: Blood Pressure Last Admin: 02/20/19 21:39 Dose: 10 mg Documented by: Ondansetron HCl (Zofran) 4 mg IV Q8H PRN PRN Reason: Nausea And Vomiting Oxycodone HCl (Roxicodone) 5 mg PO Q6H PRN PRN Reason: Pain , Severe (7-10) Sevelamer Carbonate (Renvela) 800 mg PO TIDWM [facility] Last Admin: 02/21/19 08:00 Dose: Not Given Documented by: Sodium Chloride (Sodium Chloride Flush Syringe 10 Ml) 10 ml IV BID [facility] Last Admin: 02/21/19 00:14 Dose: 10 ml Documented by: Sodium Chloride (Sodium Chloride Flush Syringe 10 Ml) 10 ml IV PRN PRN PRN Reason: LINE FLUSH Review of Systems All systems: negative (abd dsitenstion, swelling) Exam - Vital Signs Vital signs: Vital Signs Pulse Ox 94 02/20/19 12:30 - General Appearance General appearance: well-developed, well-nourished EENT: ATNC, PERRL, mucous membranes moist Neck: Present: neck supple Respiratory: Decreased Breath Sounds Heart: regular, S1S2 Gastrointestinal: Present: distended. Absent: tenderness Integumentary: no rash, warm and dry Neurologic: no focal deficit, no asterixis, alert and oriented x3 Musculoskeletal: Present: other (anasarca) Psychiatric: cooperative Results - Lab Results 02/21/19 04:52 02/21/19 04:52 Most recent lab results Calcium 8.4 mg/dL (8.4-10.2) 02/21/19 04:52 Assessment and Plan ESRD on HD hyperkalemia Volume overload Ascites - STAT HD ordered yesterday but not done, unclear reason - HD today for clearance and volume removal - HD again tomorrow if pt agreeable - renally dose meds - strict I&O - daily weight - will assess dialysis needs daily Bridger nash MD [phone]
[2019-02-21] MEDS: atenoloL 50 MG TAB PO SCH ×2 (15:17→15:22)
[2019-02-21 15:46] LABS: Hepatitis B Surface Antigen Non-Reactive (Negative); Hepatitis C Virus Antibody Non-Reactive (NonReactive)
[2019-02-21 15:47] VITALS: BP 168/92
[2019-02-21] MEDS ORDERED: SODIUM CHLORIDE*PRIMING MACHINE ONLY FOR DIALYSIS MC ONE (16:41)
--- NOTE | 2019-02-21 16:42 | Discharge Summary ---
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 fib who is [facility] with complaints of shortness of breath, increased abdominal girth, and abdominal cramping. Pt states that he went to Dialysis on Friday 02/16, and request to have 1.5L removed per hour, instead only 1.5L was removed during the session. He returned to the Dialysis clinic on 02/19 and a total of 4L was removed, however pt remained volume overload. The excess fluid has contributed to his shortness of breath which is worse with exertion and improves with rest. Additionally he is complaining of increase abdominal girth and cramping. Pt has been getting weekly therapeutic paracentesis each session removing approximately 3-4 L. Today, patient had 7+ liters removed from paracentesis. He is asymptomatic and request to go home. Fluid overload -Likely related to insufficient amount of fluid removal on 02/16 -Continue supportive care ESRD on HD - // -Last dialyzed on 02/19 for removing 4L, (previously dialyzed on 02/16 removing 1.5L, which pt stated was not enough) -Nephrology following with plans for urgent dialysis Hyperkalemia -6.4 on admission -Received hyperkalemic cocktail -Continue to monitor electrolytes Ascites -Hx of recurrent ascites requiring weekly therapeutic paracentesis -US guided paracentesis ordered HTN -Monitor BP -Resume home antihypertensive meds to optimize BP -IV hydralazine when necessary DVT PPX -on Heparin Disposition: DC- TO HOME OR SELFCARE Time spent for discharge: 33 minutes Core Measure Documentation - Palliative Care Palliative Care/ Comfort Measures: Not Applicable - Core Measures Any of the following diagnoses?: none - VTE Discharge Requirements Deep Vein Thrombosis/Pulmonary Embolism Present on Admission: No Has pt received <5 days of overlap therapy or INR<2.0: No Anticoagulant overlap therapy prescribed at discharge: No Contraindication No Overlap Therapy order at DC: Not Indicated Exam - Physical Exam Narrative exam: Gen: WDWN, NAD, Awake, Alert, Orientated HEENT: NCAT, EOMI, PERRL, OP Clear Neck: supple, no adenopathy, no thyromegaly, no JVD CVS/Heart: RRR, normal S1S2, pulses present bilaterally Chest/Lungs: , Symmetrical chest expansion, good air entry bilaterally GI/Abdomen: soft, distended, nontender good bowel sounds, no guarding or rebound /Bladder: no suprapubic tenderness, no CVA or paraspinal tenderness Extermity/Skin: ble edema, no obvious rash MSK: FROM x 4 Neuro: CN 2-12 grossly intact, no new focal deficits Psych: calm - Constitutional Vitals: Temp Pulse Resp BP Pulse Ox 97.8 F 54 L 18 168/92 98 02/21/19 13:40 02/21/19 13:40 02/21/19 13:40 02/21/19 13:40 02/21/19 04:15 Plan Activity: other (no strenous activity unless cleared by PCP) Diet: renal Follow up with: ZHANE VAZQUEZ MD [Primary Care Provider] - 3-5 Days MARY JO MARCOS MD [Staff Physician] - 7 Days
--- NOTE | 2019-02-22 12:05 | Ultrasound Report ---
Ultrasound-guided paracentesis HISTORY: ascites, therapeutic. Chronic dyspnea PROCEDURE: The risks (including but not limited to bleeding, infection, and bowel injury) and benefi ts were explained to the patient and informed consent was obtained. A time out procedure was perform ed. Ultrasound was used to evaluate the abdomen and locate the largest ascites fluid pocket. Once the sk in was marked, the procedure site was prepped and draped in the usual sterile fashion and lidocaine w as used for local anesthesia. A skin meka was made and a 5 Mauritian paracentesis catheter was placed. The patient was monitored closely throughout the procedure, and a total of 2700 mL of straw-colored fluid was aspirated. The patient tolerated the procedure well with no complications. IMPRESSION: Successful paracentesis as above with a total of 2700 mL of straw-colored fluid aspirated . Signer Name: Heath Hill MD Signed: 02/21/2019 10:54 AM Workstation Name: [id number]
== END 2019-02-21 16:45 | disposition home or self-care (01) ==
LOC: ED 16:01 → INTOOBSV 20:37 → 3A 20:37
PROVIDERS: ADMIT Internal Medicine; ATTEND Internal Medicine
DX: E87.70 Fluid overload, unspecified (principal); I12.0 Hypertensive chronic kidney disease with stage 5 chronic kidney disease or end stage renal disease; N18.6 End stage renal disease; Q61.3 Polycystic kidney, unspecified; I48.91 Unspecified atrial fibrillation; E87.5 Hyperkalemia; R18.8 Other ascites; Z99.2 Dependence on renal dialysis
CPT/HCPCS: 36415; 49083; 71045; 80048; 80074; 82962; 85025; 85027; 85610; 87116; 93005; 93010; 94644; 96374; 96375; 99284; G0257; G0378; J0360; J0610; J2270; J7030; 96361; J1644; J1815

== ENCOUNTER 2019-03-01 08:03 | Day surgery (SDC) | payer MEDICARE ==
[2019-03-01 11:38] VITALS: BP 204/101
[2019-03-01] MEDS ORDERED: ALBUMIN HUMAN 25% (25 GM/100 ML) INJ IV PRN (12:29)
--- NOTE | 2019-03-01 12:29 | Short Stay Summary ---
Short Stay Documentation Date of service: 03/01/19 - History Principal diagnosis: ascites Past Medical History: renal failure - Allergies and Medications Current Medications: Allergies labetalol Allergy (Verified 10/16/18 15:22) Vomiting pt also reports drastic drop in HR polystyrene sulfonate [From Kayexalate] Allergy (Verified 10/16/18 13:24) Unknown tramadol [From Ultram] Adverse Reaction (Verified 03/05/18 15:30) Dizziness Home Medications Medication Instructions Recorded Confirmed Last Taken Type Acetaminophen [Acetaminophen TAB] 650 mg PO Q4H PRN #15 tablet 12/28/18 02/20/19 02/19/19 Rx 650 mg cloNIDine [Catapres] 0.2 mg PO BID #60 tablet 12/28/18 02/20/19 02/19/19 Rx 02 mg oxyCODONE [roxiCODONE] 5 mg PO Q6HR PRN #20 tablet 12/28/18 02/20/19 02/19/19 Rx 5 mg Sevelamer Carbonate [Renvela] 800 mg PO TIDWM 01/09/19 02/20/19 02/19/19 History 800 mg Atenolol [Tenormin] 50 mg PO DAILY 02/01/19 02/20/19 02/19/19 History Aspirin [Adult Aspirin] 81 mg PO PRN PRN 02/08/19 02/20/19 02/19/19 History - Physical exam General appearance: no acute distress Gastrointestinal: distended - Brief post op/procedure progress note Date of procedure: 03/01/19 Pre-op diagnosis: ascites Post-op diagnosis: same Procedure: US paracentesis Anesthesia: local Findings: small ascites Surgeon: BARTOLOME IBRAHIM Estimated blood loss: none Pathology: none Specimen disposition: discarded Condition: stable - Hospital course Hospital course: uneventful - Disposition Condition at discharge: Good Disposition: DC-01 TO HOME OR SELFCARE Short Stay Discharge Plan Follow up with: PRIMARY CARE, [Primary Care Provider] - 7 Days
--- NOTE | 2019-03-01 13:39 | Ultrasound Report ---
ULTRASOUND-GUIDED PARACENTESIS HISTORY: ascites. PROCEDURE: The risks (including but not limited to bleeding, infection, and bowel injury) and benefi ts were explained to the patient and informed consent was obtained. A time out procedure was perform ed. Ultrasound was used to evaluate the abdomen and locate the largest ascites fluid pocket. Once the sk in was marked, the procedure site was prepped and draped in the usual sterile fashion and lidocaine w as used for local anesthesia. A skin meka was made and a 5 [place]oran centesis catheter was placed. The patient was monitored closely throughout the procedure, and a total of 2700 mL of yellow fluid was a spirated. No labs were ordered. The patient tolerated the procedure well with no complications. IMPRESSION: Successful ultrasound-guided paracentesis as described. Signer Name: Lavelle Aaron Jr, MD Signed: 03/01/2019 1:35 PM Workstation Name: [id number]
== END 2019-03-01 12:30 | disposition home or self-care (01) ==
LOC: CATHLABREC 08:03
PROVIDERS: ATTEND Internal Medicine Gastroenterology
DX: R18.8 Other ascites (principal); I13.2 Hypertensive heart and chronic kidney disease with heart failure and with stage 5 chronic kidney disease, or end stage renal disease; I50.9 Heart failure, unspecified; N18.6 End stage renal disease; E66.9 Obesity, unspecified; K21.9 Gastro-esophageal reflux disease without esophagitis; I48.91 Unspecified atrial fibrillation; F41.9 Anxiety disorder, unspecified; Z68.38 Body mass index [BMI] 38.0-38.9, adult; Z99.2 Dependence on renal dialysis; Z87.440 Personal history of urinary (tract) infections; Z79.82 Long term (current) use of aspirin; Z79.899 Other long term (current) drug therapy; Z88.8 Allergy status to other drugs, medicaments and biological substances; Z98.890 Other specified postprocedural states
CPT/HCPCS: 49083

== ENCOUNTER 2019-03-08 07:48 | Day surgery (SDC) | payer MEDICARE ==
[2019-03-08] MEDS ORDERED: ALBUMIN HUMAN 25% (25 GM/100 ML) INJ IV PRN (12:27)
--- NOTE | 2019-03-08 12:29 | Short Stay Summary ---
Short Stay Documentation Date of service: 03/08/19 - History Principal diagnosis: ascites Past Medical History: renal failure - Allergies and Medications Current Medications: Allergies labetalol Allergy (Verified 10/16/18 15:22) Vomiting pt also reports drastic drop in HR polystyrene sulfonate [From Kayexalate] Allergy (Verified 10/16/18 13:24) Unknown tramadol [From Ultram] Adverse Reaction (Verified 03/05/18 15:30) Dizziness Home Medications Medication Instructions Recorded Confirmed Last Taken Type Acetaminophen [Acetaminophen TAB] 650 mg PO Q4H PRN #15 tablet 12/28/18 02/20/19 02/19/19 Rx 650 mg cloNIDine [Catapres] 0.2 mg PO BID #60 tablet 12/28/18 02/20/19 02/19/19 Rx 02 mg oxyCODONE [roxiCODONE] 5 mg PO Q6HR PRN #20 tablet 12/28/18 02/20/19 02/19/19 Rx 5 mg Sevelamer Carbonate [Renvela] 800 mg PO TIDWM 01/09/19 02/20/19 02/19/19 History 800 mg Atenolol [Tenormin] 50 mg PO DAILY 02/01/19 02/20/19 02/19/19 History Aspirin [Adult Aspirin] 81 mg PO PRN PRN 02/08/19 02/20/19 02/19/19 History - Physical exam General appearance: no acute distress Gastrointestinal: distended - Brief post op/procedure progress note Date of procedure: 03/08/19 Pre-op diagnosis: ascites Post-op diagnosis: same Procedure: US paracentesis Anesthesia: local Findings: moderate ascites Surgeon: BARTOLOME IBRAHIM Estimated blood loss: none Pathology: none Specimen disposition: discarded Condition: stable - Hospital course Hospital course: uneventful - Disposition Condition at discharge: Good Disposition: DC-01 TO HOME OR SELFCARE Short Stay Discharge Plan Follow up with: PRIMARY CARE, [Primary Care Provider] - 7 Days
--- NOTE | 2019-03-08 12:31 | Ultrasound Report ---
ULTRASOUND-GUIDED PARACENTESIS HISTORY: ascites. PROCEDURE: The risks (including but not limited to bleeding, infection, and bowel injury) and benefi ts were explained to the patient and informed consent was obtained. A time out procedure was perform ed. Ultrasound was used to evaluate the abdomen and locate the largest ascites fluid pocket. Once the sk in was marked, the procedure site was prepped and draped in the usual sterile fashion and lidocaine w as used for local anesthesia. A skin meka was made and a 5 [place]an centesis catheter was placed. The patient was monitored closely throughout the procedure, and a total of 2700 mL of clear yellow fluid was aspirated. No labs were ordered. The patient tolerated the procedure well with no complications. IMPRESSION: Successful ultrasound-guided paracentesis as described. Signer Name: Lavelle Aaron Jr, MD Signed: 03/08/2019 12:27 PM Workstation Name: [id number]
[2019-03-08 12:51] VITALS: BP 185/99
== END 2019-03-08 07:49 | disposition home or self-care (01) ==
LOC: CATHLABREC 07:48
PROVIDERS: ATTEND Internal Medicine Gastroenterology
DX: R18.8 Other ascites (principal); I13.2 Hypertensive heart and chronic kidney disease with heart failure and with stage 5 chronic kidney disease, or end stage renal disease; I50.22 Chronic systolic (congestive) heart failure; N18.6 End stage renal disease; D64.9 Anemia, unspecified; I20.8 Other forms of angina pectoris; I42.9 Cardiomyopathy, unspecified; I48.91 Unspecified atrial fibrillation; E66.9 Obesity, unspecified; F41.9 Anxiety disorder, unspecified; F17.200 Nicotine dependence, unspecified, uncomplicated; Z79.899 Other long term (current) drug therapy; Z79.82 Long term (current) use of aspirin; Z68.38 Body mass index [BMI] 38.0-38.9, adult; Z99.2 Dependence on renal dialysis; Z98.890 Other specified postprocedural states; Z88.8 Allergy status to other drugs, medicaments and biological substances
CPT/HCPCS: 49083

== ENCOUNTER 2019-03-13 07:37 | Day surgery (SDC) | payer MEDICARE ==
--- NOTE | 2019-03-13 10:53 | Short Stay Summary ---
Short Stay Documentation Date of service: 03/13/19 - History Principal diagnosis: ascites Past Medical History: renal failure - Allergies and Medications Current Medications: Allergies labetalol Allergy (Verified 10/16/18 15:22) Vomiting pt also reports drastic drop in HR polystyrene sulfonate [From Kayexalate] Allergy (Verified 10/16/18 13:24) Unknown tramadol [From Ultram] Adverse Reaction (Verified 03/05/18 15:30) Dizziness Home Medications Medication Instructions Recorded Confirmed Last Taken Type Acetaminophen [Acetaminophen TAB] 650 mg PO Q4H PRN #15 tablet 12/28/18 03/13/19 03/12/19 Rx cloNIDine [Catapres] 0.2 mg PO BID #60 tablet 12/28/18 03/13/19 03/12/19 Rx oxyCODONE [roxiCODONE] 5 mg PO Q6HR PRN #20 tablet 12/28/18 03/13/19 03/12/19 Rx Sevelamer Carbonate [Renvela] 800 mg PO TIDWM 01/09/19 03/13/19 03/12/19 History Atenolol [Tenormin] 50 mg PO DAILY 02/01/19 03/13/19 03/12/19 History Aspirin [Adult Aspirin] 81 mg PO PRN PRN 02/08/19 03/13/19 03/12/19 History - Physical exam General appearance: no acute distress Gastrointestinal: distended - Brief post op/procedure progress note Date of procedure: 03/13/19 Pre-op diagnosis: ascites Post-op diagnosis: same Procedure: US paracentesis Anesthesia: local Findings: moderate ascites Surgeon: BARTOLOME IBRAHIM Estimated blood loss: none Pathology: none Specimen disposition: discarded Condition: stable - Hospital course Hospital course: uneventful - Disposition Condition at discharge: Good Disposition: DC-01 TO HOME OR SELFCARE Short Stay Discharge Plan Follow up with: PRIMARY CARE, [Primary Care Provider] - 7 Days
--- NOTE | 2019-03-13 10:55 | Ultrasound Report ---
ULTRASOUND-GUIDED PARACENTESIS HISTORY: Ascites. PROCEDURE: The risks (including but not limited to bleeding, infection, and bowel injury) and benefi ts were explained to the patient and informed consent was obtained. A time out procedure was perform ed. Ultrasound was used to evaluate the abdomen and locate the largest ascites fluid pocket. Once the sk in was marked, the procedure site was prepped and draped in the usual sterile fashion and lidocaine w as used for local anesthesia. A skin meka was made and a 5 Salvadorean centesis catheter was placed. The patient was monitored closely throughout the procedure, and a total of 2900 mL of clear yellow fluid was aspirated. No labs were ordered. The patient tolerated the procedure well with no complications. IMPRESSION: Successful ultrasound-guided paracentesis as described. Signer Name: Lavelle Aaron Jr, MD Signed: 03/13/2019 10:51 AM Workstation Name: [id number]
[2019-03-13 11:57] VITALS: BP 186/98
[2019-03-13] MEDS ORDERED: ALBURX 25% (ALBUMIN) IV PRN (12:00)
== END 2019-03-13 11:30 | disposition home or self-care (01) ==
LOC: CATHLABREC 07:37
PROVIDERS: ATTEND Internal Medicine Gastroenterology
DX: R18.8 Other ascites (principal); I13.2 Hypertensive heart and chronic kidney disease with heart failure and with stage 5 chronic kidney disease, or end stage renal disease; N18.6 End stage renal disease; I50.22 Chronic systolic (congestive) heart failure; E66.9 Obesity, unspecified; D64.9 Anemia, unspecified; K21.9 Gastro-esophageal reflux disease without esophagitis; I20.8 Other forms of angina pectoris; I42.9 Cardiomyopathy, unspecified; I48.91 Unspecified atrial fibrillation; F41.9 Anxiety disorder, unspecified; F17.200 Nicotine dependence, unspecified, uncomplicated; Z68.39 Body mass index [BMI] 39.0-39.9, adult; Z86.79 Personal history of other diseases of the circulatory system; Z91.14 Patient's other noncompliance with medication regimen; Z91.15 Patient's noncompliance with renal dialysis; Z91.19 Patient's noncompliance with other medical treatment and regimen; Z79.899 Other long term (current) drug therapy; Z88.8 Allergy status to other drugs, medicaments and biological substances; Z79.82 Long term (current) use of aspirin; Z87.440 Personal history of urinary (tract) infections; Z99.2 Dependence on renal dialysis
CPT/HCPCS: 49083

== ENCOUNTER 2019-03-14 06:48 | Day surgery (SDC) | payer MEDICARE ==
[2019-03-14 08:09] LABS: INR 1.19 (0.87-1.13)
[2019-03-14 08:10] LABS: Calcium 8.6 mg/dL (8.4-10.2); Partial Thromboplastin Time 31.1 Sec. (24.2-36.6)
[2019-03-14 08:13] LABS: Basophils # (Auto) 0.1 K/mm3 (0.0-0.1); Basophils % (Auto) 1.2 % (0.0-1.8); Eosinophils # (Auto) 0.1 K/mm3 (0.0-0.4); Eosinophils % (Auto) 1.8 % (0.0-4.3); Hematocrit 35.1 % (35.5-45.6); Hemoglobin 11.4 gm/dl (11.8-15.2); Lymphocytes # (Auto) 0.8 K/mm3 (1.2-5.4); Mean Corpuscular HGB Conc 33 % (32-34); Mean Corpuscular Volume 92 fl (84-94); Monocytes # (Auto) 0.7 K/mm3 (0.0-0.8); Monocytes % (Auto) 14.2 % (0.0-7.3); Platelet Count 137 K/mm3 (140-440); Red Blood Count 3.82 M/mm3 (3.65-5.03); Red Cell Distribution Width 16.1 % (13.2-15.2)
[2019-03-14] MEDS: NACL 0.9% 500 ML 500 ML IV SCH ×2 (08:47→09:36)
[2019-03-14] MEDS ORDERED: XYLOCAINE 2% INFILTRATI ONE (08:51)
[2019-03-14] MEDS ORDERED: NACL 0.9% 500 ML IR ONE (08:51)
[2019-03-14] MEDS ORDERED: SUBLIMAZE ONE (09:33)
[2019-03-14] MEDS ORDERED: VERSED ONE (09:34)
--- NOTE | 2019-03-14 10:09 | Short Stay Summary ---
Short Stay Documentation Date of service: 03/14/19 - History Principal diagnosis: recurrent ascites H&P: obtained from office - Allergies and Medications Current Medications: Allergies labetalol Allergy (Verified 10/16/18 15:22) Vomiting pt also reports drastic drop in HR polystyrene sulfonate [From Kayexalate] Allergy (Verified 10/16/18 13:24) Unknown tramadol [From Ultram] Adverse Reaction (Verified 03/05/18 15:30) Dizziness Home Medications Medication Instructions Recorded Confirmed Last Taken Type Acetaminophen [Acetaminophen TAB] 650 mg PO Q4H PRN #15 tablet 12/28/18 03/14/19 03/13/19 Rx cloNIDine [Catapres] 0.2 mg PO BID #60 tablet 12/28/18 03/14/19 03/13/19 Rx oxyCODONE [roxiCODONE] 5 mg PO Q6HR PRN #20 tablet 12/28/18 03/14/19 03/13/19 Rx Sevelamer Carbonate [Renvela] 800 mg PO TIDWM 01/09/19 03/14/19 03/13/19 History Atenolol [Tenormin] 50 mg PO DAILY 02/01/19 03/14/19 03/13/19 History Aspirin [Adult Aspirin] 81 mg PO PRN PRN 02/08/19 03/14/19 03/13/19 History Active Medications Sodium Chloride (Nacl 0.9% 500 Ml) 500 mls @ 50 mls/hr IV DIRECT FOSTER Last Admin: 03/14/19 09:36 Dose: 50 mls/hr Documented by: - Brief post op/procedure progress note Date of procedure: 03/14/19 Pre-op diagnosis: recurrent ascites Post-op diagnosis: same Procedure: Ultrasound and fluoroscopic guided placement of tunneled Peritoneal drainage catheter Anesthesia: local Surgeon: JEREMIAH CERDA Estimated blood loss: minimal Pathology: none Condition: stable - Disposition Condition at discharge: Good Disposition: DC-01 TO HOME OR SELFCARE Short Stay Discharge Plan Activity: advance as tolerated Weight Bearing Status: Weight Bear as Tolerated Diet: renal Wound: keep clean and dry, per your surgeon's advice, drain care as instructed Follow up with: PRIMARY CARE, [Primary Care Provider] - 7 Days
--- NOTE | 2019-03-14 10:14 | Operative Report ---
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 Date: 03/14/2019 Procedure: Following an explanation of the risks, benefits and alternatives; written informed consent was obtained. The patient was brought to the angiographic suite and placed in supine position on the examination table. Init ial ultrasound evaluation of the patient's abdomen demonstrated a moderate amount of ascites. An appropriate access site was chosen along the lateral left flank. 1% lidocaine was used for anesthesia. Under ultrasound guidance, a 7 cm 18-gauge needle was advanced into the peritoneal fluid. A 0.035 guidewire was advanced and freely advanced across the abdomen. The needle was removed. An appropriate catheter exit site was chosen anterior and inferior to the dermatotomy. A Bard Aspira catheter was then tunneled antegrade from the catheter exit site to the dermatotomy site. Following serial dilation over the guidewire under fluoroscopy, a 16 Thai peel-away sheath was placed over the guidewire under fluoroscopy. The trocar was removed. The catheter was then placed over the guidewire and advanced through the peel-away sheath into the peritoneal cavity. The peel-away sheath and guidewire were removed. There was prompt return of clear yellow ascitic fluid. The dermatotomy was closed using 3-0 Vicryl suture and Dermabond. 2-0 Ethilon and Dermabond were used to approximate the catheter exit site. Sterile dressings were then applied. The patient tolerated the procedure well. There were no immediate post procedure complications. Conscious sedation was performed under the guidance or radiologic nursing. Continuous cardiopulmonary monitoring was utilized. Impression: Ultrasound and fluoroscopic guided placement of tunneled peritoneal drainage catheter
[2019-03-14] MEDS ORDERED: ROXICODONE PO ONE (11:45)
[2019-03-14] MEDS ORDERED: ROXICODONE ONE (11:47)
[2019-03-14 12:54] VITALS: BP 172/88
== END 2019-03-14 06:49 | disposition home or self-care (01) ==
LOC: CATHLABREC 06:48
PROVIDERS: ATTEND Radiology Diagnostic Radiology
DX: R18.8 Other ascites (principal); I89.0 Lymphedema, not elsewhere classified; I87.1 Compression of vein; I13.2 Hypertensive heart and chronic kidney disease with heart failure and with stage 5 chronic kidney disease, or end stage renal disease; N18.6 End stage renal disease; I50.22 Chronic systolic (congestive) heart failure; F17.200 Nicotine dependence, unspecified, uncomplicated; D64.9 Anemia, unspecified; I20.8 Other forms of angina pectoris; I42.9 Cardiomyopathy, unspecified; I48.91 Unspecified atrial fibrillation; E66.9 Obesity, unspecified; Z87.440 Personal history of urinary (tract) infections; Z79.899 Other long term (current) drug therapy; Z79.82 Long term (current) use of aspirin; Z88.8 Allergy status to other drugs, medicaments and biological substances; Z86.79 Personal history of other diseases of the circulatory system; Z91.14 Patient's other noncompliance with medication regimen; Z91.19 Patient's noncompliance with other medical treatment and regimen; Z68.36 Body mass index [BMI] 36.0-36.9, adult; Z99.2 Dependence on renal dialysis; Z98.890 Other specified postprocedural states
CPT/HCPCS: 36415; 49418; 76937; 80048; 85025; 85610; 85730; C1729; J2250; J3010; J7040; 32550

== ENCOUNTER 2019-03-17 09:03 | Inpatient (IN) | payer MEDICARE ==
[2019-03-17 10:00] LABS: Hematocrit 37.2 % (35.5-45.6); Hemoglobin 12.1 gm/dl (11.8-15.2); Mean Corpuscular HGB Conc 33 % (32-34); Mean Corpuscular Volume 92 fl (84-94); Platelet Count 131 K/mm3 (140-440); Red Blood Count 4.03 M/mm3 (3.65-5.03)
[2019-03-17 10:09] LABS: INR 1.17 (0.87-1.13)
[2019-03-17 10:19] LABS: Albumin 3.5 g/dL (3.9-5)
[2019-03-17] MEDS ORDERED: PROVENTIL IH ONE (10:42)
[2019-03-17] MEDS ORDERED: D50W (25GM) Syringe IV ONE (10:42)
[2019-03-17] MEDS ORDERED: HumuLIN R IV ONE (10:42)
[2019-03-17] MEDS ORDERED: SUBLIMAZE IV ONE (10:42)
[2019-03-17] MEDS ORDERED: CALCIUM GLUCONATE 1,000 MG in NACL 0.9% 100 ML IV ONE (10:42)
[2019-03-17] MEDS ORDERED: D50W (25GM) Syringe IV PRN (10:42)
--- NOTE | 2019-03-17 11:06 | Consultation ---
History of Present Illness - Reason for Consult Consult date: 03/17/19 end stage renal disease - History of Present Illness This is a 48 year old male who presents to the E.R with a chief complaint of shortness of breath and volume overload. Patient has hsitory of CHF, Hypertension, Cirrhosis and ESRD on HD. Patient is status post peritoneal drainage catheter by Dr. Castillo on 03/14/19 for recurrent Ascites. patient is currently lethargic and is a poor historian. Patient currently undergoing HD at bedside. Past History Past Medical History: anemia, ESRD, heart failure, hypertension, renal failure, other (Cirrhosis) Past Surgical History: Other (Peritoneal drainage catheter, dialysis access) Social history: no significant social history Family history: no significant family history Medications and Allergies Allergies Allergy/AdvReac Type Severity Reaction Status Date / Time labetalol Allergy Vomiting Verified 10/16/18 15:22 polystyrene sulfonate Allergy Unknown Verified 10/16/18 13:24 [From Kayexalate] tramadol [From Ultram] AdvReac Dizziness Verified 03/05/18 15:30 Home Medications Medication Instructions Recorded Confirmed Last Taken Type Acetaminophen [Acetaminophen TAB] 650 mg PO Q4H PRN #15 tablet 12/28/18 03/17/19 03/13/19 Rx cloNIDine [Catapres] 0.2 mg PO BID #60 tablet 12/28/18 03/17/19 03/13/19 Rx oxyCODONE [roxiCODONE] 5 mg PO Q6HR PRN #20 tablet 12/28/18 03/17/19 03/13/19 Rx Sevelamer Carbonate [Renvela] 800 mg PO TIDWM 01/09/19 03/17/19 03/13/19 History Atenolol [Tenormin] 50 mg PO DAILY 02/01/19 03/17/19 03/13/19 History Aspirin [Adult Aspirin] 81 mg PO PRN PRN 02/08/19 03/17/19 03/13/19 History Oxycodone HCl/Acetaminophen 1 each PO Q6HR PRN #24 tablet 03/14/19 03/17/19 Unknown Rx [Percocet 7.5/325 mg] Active Meds: Active Medications Dextrose (D50w (25gm) Syringe) 50 ml IV PRN PRN PRN Reason: Hypoglycemia Review of Systems ROS unobtainable: due to mental status Exam - Vital Signs Vital signs: Vital Signs Temp Pulse Resp BP Pulse Ox 98.0 F 57 L 20 210/98 91 03/17/19 09:35 03/17/19 09:35 03/17/19 09:35 03/17/19 09:35 03/17/19 09:35 - General Appearance General appearance: chronically ill, fatigue, other (Lethargic) EENT: ATNC Neck: Present: neck supple Respiratory: Decreased Breath Sounds Heart: regular, S1S2 Gastrointestinal: Present: normoactive bowel sounds, other (Has Ascites present) Integumentary: chronic venous stasis Neurologic: other (Lethargic, confused) Musculoskeletal: Present: joint swelling Results - Lab Results 03/17/19 09:38 03/17/19 09:38 Most recent lab results Calcium 9.0 mg/dL (8.4-10.2) 03/17/19 09:38 Magnesium 2.70 mg/dL (1.7-2.3) H 03/17/19 09:38 Assessment and Plan ESRD, needing hemodialysis: Hyperkalemia: Volume Overload: Acidosis: -STAT hemodialysis orders have been placed -Spoke with ER Nurse and made him aware of STAT HD orders and advised him to notify the dialysis nurse on-call -Patient will also need HD again tomorrow -Fluid restriction of 1 liter per day -Obtain daily weights -Monitor I/O's -Assess dialysis needs daily Acute respiratory failure with hypoxia: -UF with HD -On supplemental oxygen -As per primary team Acute on chronic systolic (congestive) heart failure -UF with HD -As per primary team Ascites -S/P peritoneal drain placement on 03/14/19 -As per primary team Hypertension: -Reconcile home BP meds
--- NOTE | 2019-03-17 12:17 | History and Physical Report ---
History of Present Illness Chief complaint: I feel bad History of present illness: 48 YO Male with ESRD on HD(T,R,Sa) last dialyzed 1week ago, HTN, PCKD, Cirrhosis, ESLD complicated by Ascites, Systolic/Diastolic CHF(EF 25%), Moderate Pulmonary HTN , GERD, Nicotine Dependence presents to ED for evaluation. Pt states that he experienced generalized weakness, shortness of breath, fatigue over the past 3 days with progressively worsening symptoms over the past 2 days. Pt acknowledges nausea and multiple episodes of vomiting as well. EMS notified and upon arrival the patient was found to be in distress and transported to [facility]. Pt seen and evaluated in ED and found to have ESRD, Fluid Overload, and ESLD complicated by Ascites, Acidosis, Hyperkalemia, and Acute Respiratory Failure. Pt denies fever, chills, CP, palpitations, NVD, Trauma, BRBPR, Productive Cough, Skin Rash, prolonged travel/immobility, Individual/Family history or DVT/PE/Bleed Clotting Disorders, hemoptysis, or recent ill contacts. Pt admitted to Medical floor with Remote telemetry. Nephrology consulted in ED for urgent dialysis. Prior admission on 01/23/19 Reviewed. All listed medication reconciled at time of admission. Past History Past Medical History: other (see hpi) Past Surgical History: hernia repair, Other (Dialysis access, peritoneal catheter) Social history: , lives with family. denies: smoking, alcohol abuse, prescription drug abuse Family history: hypertension Medications and Allergies Allergies Allergy/AdvReac Type Severity Reaction Status Date / Time labetalol Allergy Vomiting Verified 10/16/18 15:22 polystyrene sulfonate Allergy Unknown Verified 10/16/18 13:24 [From Kayexalate] tramadol [From Ultram] AdvReac Dizziness Verified 03/05/18 15:30 Home Medications Medication Instructions Recorded Confirmed Last Taken Type Acetaminophen [Acetaminophen TAB] 650 mg PO Q4H PRN #15 tablet 12/28/18 03/14/19 03/13/19 Rx cloNIDine [Catapres] 0.2 mg PO BID #60 tablet 12/28/18 03/14/19 03/13/19 Rx oxyCODONE [roxiCODONE] 5 mg PO Q6HR PRN #20 tablet 12/28/18 03/14/19 03/13/19 Rx Sevelamer Carbonate [Renvela] 800 mg PO TIDWM 01/09/19 03/14/19 03/13/19 History Atenolol [Tenormin] 50 mg PO DAILY 02/01/19 03/14/19 03/13/19 History Aspirin [Adult Aspirin] 81 mg PO PRN PRN 02/08/19 03/14/19 03/13/19 History Oxycodone HCl/Acetaminophen 1 each PO Q6HR PRN #24 tablet 03/14/19 Unknown Rx [Percocet 7.5/325 mg] Active Meds: Active Medications Dextrose (D50w (25gm) Syringe) 50 ml IV PRN PRN PRN Reason: Hypoglycemia Review of Systems Constitutional: fatigue, weakness, no weight loss, no weight gain, no fever, no chills Ears, nose, mouth and throat: no ear pain, no ear discharge, no tinnitis, no decreased hearing, no nasal congestion, no nasal discharge Cardiovascular: shortness of breath, no chest pain, no palpitations, no rapid/irregular heart beat Respiratory: shortness of breath, no cough, no cough with sputum, no excessive sputum, no hemoptysis Gastrointestinal: nausea, vomiting, no diarrhea, no constipation, no change in bowel habits, no BRBPR, no melena, no hematochezia, no loss of appetite Genitourinary Male: no hematuria, no flank pain, no discharge, no urinary frequency, no nocturia Rectal: no pain, no incontinence, no bleeding Musculoskeletal: no neck stiffness, no neck pain, no shooting arm pain, no low back pain, no leg numbness/tingling Integumentary: no rash, no pruritis, no redness, no sores, no wounds, no jaundice Neurological: no head injury, no transient paralysis, no paralysis, no weakness, no parathesias, no numbness, no seizures, no syncope Psychiatric: no anxiety, no memory loss, no sleep disturbances, no insomnia, no hypersomnia, no change in libido Endocrine: no cold intolerance, no heat intolerance, no polyphagia, no excessive thirst, no polydipsia, no polyuria, no nocturia Hematologic/Lymphatic: no easy bruising, no easy bleeding, no lymphadenopathy, no lymphedema Allergic/Immunologic: no urticaria, no persistent infections, no anaphylaxis, no angioedema Exam - Constitutional Vitals: Temp Pulse Resp BP Pulse Ox 98.0 F 57 L 20 210/98 92 03/17/19 09:35 03/17/19 09:35 03/17/19 09:36 03/17/19 09:35 03/17/19 09:36 General appearance: Present: mild distress, obese - EENT Eyes: Present: PERRL ENT: hearing intact, clear oral mucosa - Neck Neck: Present: supple, normal ROM - Respiratory Respiratory effort: labored, accessory muscle use, stridor Respiratory: bilateral: diminished, rhonchi - Cardiovascular Heart Sounds: Present: S1 & S2. Absent: rub, click - Extremities Extremities: pulses symmetrical, No edema Peripheral Pulses: within normal limits - Abdominal General gastrointestinal: Present: soft, non-tender, non-distended, normal bowel sounds Male genitourinary: Present: normal - Integumentary Integumentary: Present: clear, warm, dry - Musculoskeletal Musculoskeletal: gait normal, strength equal bilaterally - Psychiatric Psychiatric: appropriate mood/affect, intact judgment & insight - Neurologic Neurologic: CNII-XII intact, moves all extremities Results - Labs CBC & Chem 7: 03/17/19 09:38 03/17/19 09:38 Labs: Abnormal lab results 03/17/19 03/17/19 03/17/19 Range/Units 09:38 09:38 09:38 RDW 16.0 H (13.2-15.2) % Plt Count 131 L (140-440) K/mm3 INR 1.17 H (0.87-1.13) Potassium 7.2 H* (3.6-5.0) mmol/L Chloride 96.3 L (98-107) mmol/L Carbon Dioxide 15 L (22-30) mmol/L BUN 138 H (9-20) mg/dL Creatinine 18.3 H (0.8-1.5) mg/dL Magnesium 2.70 H (1.7-2.3) mg/dL Total Creatine Kinase 2682 H (55-170) units/L Albumin 3.5 L (3.9-5) g/dL Assessment and Plan - Patient Problems (1) Acute respiratory failure Current Visit: Yes Status: Acute Qualifiers: Respiratory failure complication: hypoxia Qualified Code(s): J96.01 - Acute respiratory failure with hypoxia Plan to address problem: Supplemental oxygen, nebulizer therapy, pulse oximetry, NIPPV as clinically indicated, urgent dialysis, symptoms suspected secondary to combination of fluid overload, and CHF decompensation., chest x ray, (2) ESRD (end stage renal disease) Current Visit: Yes Status: Acute Plan to address problem: Nephrology consulted for urgent dialysis, strict I/O, daily weight, monitor uop q shift, avoid nephrotoxic agents (3) Acidosis Current Visit: Yes Status: Acute Plan to address problem: IV bicarbonate thearpy, repeat bmp, urgent dialysis (4) Rhabdomyolysis Current Visit: Yes Status: Acute Qualifiers: Rhabdomyolysis type: non-traumatic Qualified Code(s): M62.82 - Rhabdomyolysis Plan to address problem: monitor uop q shift, IV bicarbonate therapy, repeat bmp, repeat ck, monitor fluid status, Pt fluid overloaded at this time. IVF as tolerated (5) Hypertensive urgency, malignant Current Visit: Yes Status: Acute Plan to address problem: monitor bp q shift, IV hydralazine prn SBP >160, continue medical management. (6) Acute on chronic systolic (congestive) heart failure Current Visit: No Status: Acute Plan to address problem: Strict I/O, daily weight, afterload reduction, urgent dialysis, bnp, chest x ray, pulse oximetry, supplemental oxygen, (7) Ascites Current Visit: No Status: Acute Qualifiers: Ascites type: other type Qualified Code(s): R18.8 - Other ascites Plan to address problem: S/P peritoneal drain placement, CT ABdomen pelvis pending at time of admission, supportive care, No peritoneal signs at time of my exam. (8) Diastolic CHF Current Visit: Yes Status: Acute Qualifiers: Heart failure chronicity: acute on chronic Qualified Code(s): I50.33 - Acute on chronic diastolic (congestive) heart failure Plan to address problem: Strict I/O, daily weight, pulse oximetry, afterload reduction, blood pressure control, suupplemental oxgyen, monitor fluid balance to ensure negative fluid balance. (9) DVT prophylaxis Current Visit: Yes Status: Acute Plan to address problem: SCD to BLE while in bed,
[2019-03-17] MEDS ORDERED: SODIUM CHLORIDE FLUSH SYRINGE 10 ML IV PRN (12:18)
[2019-03-17] MEDS ORDERED: ZOFRAN IV PRN (12:18)
[2019-03-17] MEDS ORDERED: TYLENOL PO PRN ×2 (12:18→12:19)
[2019-03-17] MEDS ORDERED: ROXICODONE PO PRN (12:19)
[2019-03-17] MEDS ORDERED: HALFPRIN EC PO PRN (12:19)
[2019-03-17] MEDS: CATAPRES PO SCH ×2 (13:00→22:13)
--- NOTE | 2019-03-17 13:40 | Cat Scan Report ---
CT of the abdomen and pelvis without contrast INDICATION: Abdominal pain with nausea and vomiting COMPARISON: 12/01/2018 FINDINGS: Moderate cardiomegaly is seen with minimal pericardial effusion. There is a trace right ple ural effusion seen as well. Liver is grossly unremarkable. The spleen, pancreas and adrenal glands sh ow no significant abnormalities. There is small to moderate amount of ascites in the upper abdomen. M arkedly enlarged polycystic kidneys are again seen as previously described. No definite gallbladder o r biliary tree abnormality. No adenopathy in the upper abdomen. CT of the pelvis shows a peritoneal dialysis catheter in place with moderate pelvic fluid present. Pr ostate is not enlarged. No pelvic or inguinal adenopathy. No bowel obstruction is seen. Edema of the abdominal wall is old and unchanged. Umbilical hernia is seen containing fluid. No significant skelet al lesion. IMPRESSION: No significant change. Automated exposure control was utilized to diminish radiation dose. Signer Name: Jas Fink MD Signed: 03/17/2019 1:36 PM Workstation Name: [id number]
--- NOTE | 2019-03-17 13:54 | Emergency Department Report ---
ED General Adult HPI - General Chief complaint: Abdominal Pain Stated complaint: ABD PAIN Time Seen by Provider: 03/17/19 09:38 Source: patient, EMS ( EMS documentation not available at time of chart dictation ), RN notes reviewed, old records reviewed Mode of arrival: Stretcher Limitations: No Limitations - History of Present Illness Initial comments: Gastroenterology: Dr Nicanor Sanchez Vascular surgery: Dr Castillo Nephrology: Dr Mercedes This is a 48-year-old gentleman. I have evaluated him in the past. Past history includes chronic recurrent ascites, status post peritoneal catheter placement this week by vascular surgery for more frequent ascites drainage, end- stage renal disease on hemodialysis, chronic lymphedema. Patient last received dialysis earlier on this week. He presents to the ER with a complaint of diffuse abdominal cramping, nausea vomiting malaise and fatigue. The abdominal cramping is sharp, throbbing, increases with palpation and decreases with rest. It is primarily around the left lower quadrant around the peritoneal dialysis catheter. In the emergency room, he was found to be hyperkalemic, acidotic, uremic, and azotemic. Contacted nephrology on-call, Dr. Blair, who will arrange for emergent dialysis. He was given a hyperkalemia cocktail. His pain was treated. CT scan of the abdomen and pelvis showed no acute process. Studies fluid laboratory studies were ordered, nursing team needs to access the PD catheter to drain fluid for analysis. Hospital physician, Dr. Santana to admit for hyperkalemia, metabolic derangement. We will defer to the inpatient team to follow up on laboratory studies from ascites fluid. He is afebrile, and his exam today seems to be consistent and similar to prior examinations. I do not suspect SBP at this time. -: Gradual Location: abdomen Severity scale (0 -10): 10 Quality: other Consistency: other Improves with: other Worsens with: other - Related Data Home Medications Medication Instructions Recorded Confirmed Last Taken Sevelamer Carbonate [Renvela] 800 mg PO TIDWM 01/09/19 03/17/19 03/13/19 Atenolol [Tenormin] 50 mg PO DAILY 02/01/19 03/17/19 03/13/19 Aspirin [Adult Aspirin] 81 mg PO PRN PRN 02/08/19 03/17/19 03/13/19 Previous Rx's Medication Instructions Recorded Last Taken Type Acetaminophen [Acetaminophen TAB] 650 mg PO Q4H PRN #15 tablet 12/28/18 03/13/19 Rx cloNIDine [Catapres] 0.2 mg PO BID #60 tablet 12/28/18 03/13/19 Rx oxyCODONE [roxiCODONE] 5 mg PO Q6HR PRN #20 tablet 12/28/18 03/13/19 Rx Oxycodone HCl/Acetaminophen 1 each PO Q6HR PRN #24 tablet 03/14/19 Unknown Rx [Percocet 7.5/325 mg] Allergies Allergy/AdvReac Type Severity Reaction Status Date / Time labetalol Allergy Vomiting Verified 10/16/18 15:22 polystyrene sulfonate Allergy Unknown Verified 10/16/18 13:24 [From Kayexalate] tramadol [From Ultram] AdvReac Dizziness Verified 03/05/18 15:30 ED Review of Systems ROS: Stated complaint: ABD PAIN Other details as noted in HPI Constitutional: malaise. denies: fever Eyes: denies: eye discharge ENT: denies: congestion Respiratory: denies: wheezing Cardiovascular: denies: syncope Gastrointestinal: abdominal pain, nausea, vomiting Musculoskeletal: myalgia Skin: lesions (chronic) Neurological: weakness Hematological/Lymphatic: denies: easy bleeding ED Past Medical Hx - Past Medical History Hx Hypertension: Yes Hx CVA: No Hx Heart Attack/AMI: No Hx Congestive Heart Failure: Yes (diastolic - CHRONIC , CARDIOMYOPATHY) Hx Diabetes: No Hx Deep Vein Thrombosis: No Hx Pulmonary Embolism: No Hx GERD: No Hx Liver Disease: No Hx Renal Disease: Yes (HD TTS) Hx Sickle Cell Disease: No Hx Arthritis: No Hx Headaches / Migraines: No Hx Seizures: No Hx Kidney Stones: No Hx Psychiatric Treatment: No Hx Asthma: No Hx COPD: No Hx Tuberculosis: No Hx Dementia: No Hx HIV: No Additional medical history: Abdominal Hernias, right groin hernia, ascites - Surgical History Hx Coronary Stent: No Hx Open Heart Surgery: No Hx Pacemaker: No Hx Internal Defibrillator: No Hx Cholecystectomy: No Hx Appendectomy: No Hx Breast Surgery: No Additional Surgical History: dialysis access left arm, groin hernia repair, - Social History Smoking Status: Never Smoker - Medications Home Medications: Home Medications Medication Instructions Recorded Confirmed Last Taken Type Acetaminophen [Acetaminophen TAB] 650 mg PO Q4H PRN #15 tablet 12/28/18 03/17/19 03/13/19 Rx cloNIDine [Catapres] 0.2 mg PO BID #60 tablet 12/28/18 03/17/19 03/13/19 Rx oxyCODONE [roxiCODONE] 5 mg PO Q6HR PRN #20 tablet 12/28/18 03/17/19 03/13/19 Rx Sevelamer Carbonate [Renvela] 800 mg PO TIDWM 01/09/19 03/17/19 03/13/19 History Atenolol [Tenormin] 50 mg PO DAILY 02/01/19 03/17/19 03/13/19 History Aspirin [Adult Aspirin] 81 mg PO PRN PRN 02/08/19 03/17/19 03/13/19 History Oxycodone HCl/Acetaminophen 1 each PO Q6HR PRN #24 tablet 03/14/19 03/17/19 Unknown Rx [Percocet 7.5/325 mg] ED Physical Exam - General Limitations: No Limitations General appearance: alert, anxious, obese - Head Head exam: Present: atraumatic, normocephalic - Eye Eye exam: Present: normal appearance, EOMI. Absent: nystagmus - ENT ENT exam: Present: normal exam, normal orophraynx, mucous membranes moist, normal external ear exam - Neck Neck exam: Present: normal inspection, full ROM. Absent: tenderness, meningismus - Respiratory Respiratory exam: Present: normal lung sounds bilaterally. Absent: respiratory distress - Cardiovascular Cardiovascular Exam: Present: normal rhythm, bradycardia, normal heart sounds. Absent: tachycardia, irregular rhythm, systolic murmur, diastolic murmur, rubs, gallop - GI/Abdominal GI/Abdominal exam: Present: soft, distended, tenderness (there is a PD catheter in the left lower quadrant. There is no surrounding redness, pus or streaking. The surrounding area is minimally tender. Otherwise, the remainder of the abdominal exam is nontender). Absent: guarding, rebound - Rectal Rectal exam: Present: deferred - Extremities Exam Extremities exam: Present: normal inspection, pedal edema, other (there is chronic lower extremity swelling and lymphedema. There is chronic venous stasis noted. There is a left upper extremity fistula, with no redness, pus or streaking.). Absent: calf tenderness - Back Exam Back exam: Present: normal inspection. Absent: tenderness, paraspinal tenderness - Neurological Exam Neurological exam: Present: alert, other (there is no facial droop. The tongue is midline. Extraocular movements are intact bilaterally. Patient speaking in full complete sentences. Shoulder shrug is intact bilaterally. Hearing is grossly intact bilaterally. Visual acuity intact to finger counting and color perception at a close distance. 5/5 strength 4 extremities. Sensation intact to light touch in 4 extremities.) - Psychiatric Psychiatric exam: Present: anxious - Skin Skin exam: Present: warm ED Course Vital Signs 03/17/19 03/17/19 09:35 09:36 Temperature 98.0 F Pulse Rate 57 L Respiratory 20 20 Rate Blood Pressure 210/98 [Right] O2 Sat by Pulse 91 92 Oximetry ED Medical Decision Making - Lab Data Result diagrams: 03/17/19 09:38 03/17/19 09:38 Vital Signs 03/17/19 03/17/19 09:35 09:36 Temperature 98.0 F Pulse Rate 57 L Respiratory 20 20 Rate Blood Pressure 210/98 [Right] O2 Sat by Pulse 91 92 Oximetry Lab Results 03/17/19 03/17/19 03/17/19 Range/Units 09:38 09:38 09:38 WBC 5.6 (4.5-11.0) K/mm3 RBC 4.03 (3.65-5.03) M/mm3 Hgb 12.1 (11.8-15.2) gm/dl Hct 37.2 (35.5-45.6) % MCV 92 (84-94) fl MCH 30 (28-32) pg MCHC 33 (32-34) % RDW 16.0 H (13.2-15.2) % Plt Count 131 L (140-440) K/mm3 PT 14.6 (12.2-14.9) Sec. INR 1.17 H (0.87-1.13) Sodium 138 (137-145) mmol/L Potassium 7.2 H* (3.6-5.0) mmol/L Chloride 96.3 L (98-107) mmol/L Carbon Dioxide 15 L (22-30) mmol/L Anion Gap 34 mmol/L BUN 138 H (9-20) mg/dL Creatinine 18.3 H (0.8-1.5) mg/dL Estimated GFR 3 ml/min BUN/Creatinine Ratio 8 % Glucose 87 (75-100) mg/dL Calcium 9.0 (8.4-10.2) mg/dL Magnesium 2.70 H (1.7-2.3) mg/dL Total Bilirubin 0.50 (0.1-1.2) mg/dL AST 20 (5-40) units/L ALT 14 (7-56) units/L Alkaline Phosphatase 58 (35-129) units/L Total Creatine Kinase 2682 H (55-170) units/L Total Protein 7.4 (6.3-8.2) g/dL Albumin 3.5 L (3.9-5) g/dL Albumin/Globulin Ratio 0.9 % - EKG Data -: EKG Interpreted by Me Rate: bradycardia - Radiology Data Radiology results: report reviewed, image reviewed - Medical Decision Making Differential diagnosis, including not limited to: Symptomatic ascites, fluid overload, azotemia, uremia, surgical complication, hyperkalemia Critical Care Time: Yes Critical care time in (mins) excluding proc time.: 35 Critical care attestation.: If time is entered above; I have spent that time in minutes in the direct care of this critically ill patient, excluding procedure time. ED Disposition Clinical Impression: Hyperkalemia, Abdominal pain, ESRD (end stage renal disease), ESRD (end stage renal disease) on dialysis, Lymphedema Disposition: 09 OP ADMIT IP TO THIS HOSP Is pt being admited?: Yes Condition: Serious
[2019-03-17] MEDS: APRESOLINE IV PRN ×2 (14:38→19:31)
[2019-03-17] MEDS ORDERED: ATIVAN ONE (16:43)
[2019-03-17] MEDS ORDERED: ATIVAN IV ONE (16:53)
[2019-03-17] MEDS: RENVELA PO SCH (17:00)
[2019-03-17] MEDS: TENORMIN PO SCH (19:38)
--- NOTE | 2019-03-17 21:56 | Cat Scan Report ---
Head CT without intravenous contrast INDICATION: Headaches and dizziness COMPARISON: 01/09/2019 FINDINGS: The ventricles are normal in size and position. No hemorrhage or extra-axial fluid collecti on. No edema or mass effect. No focal infarct seen. Portions of the sinuses visualized are clear. No skull fracture identified. IMPRESSION: Negative head CT Automated exposure control was utilized to diminish radiation dose Signer Name: Jas Fink MD Signed: 03/17/2019 9:51 PM Workstation Name: [id number]
[2019-03-17] MEDS: SODIUM CHLORIDE FLUSH SYRINGE 10 ML IV SCH (22:15)
[2019-03-17] MEDS ORDERED: NACL 0.9 (PRIMING MACHINE ONLY DIALYSIS) MC ONE (23:35)
[2019-03-18] MEDS: RENVELA PO SCH ×2 (09:07→09:21)
[2019-03-18] MEDS: TENORMIN PO SCH (09:07)
[2019-03-18] MEDS: CATAPRES PO SCH (09:07)
[2019-03-18] MEDS: SODIUM CHLORIDE FLUSH SYRINGE 10 ML IV SCH (09:08)
--- NOTE | 2019-03-18 09:10 | Progress Note ---
Assessment and Plan ESRD, needing hemodialysis: Hyperkalemia: Volume Overload: Acidosis: -HD again today if patient agrees -Fluid restriction of 1 liter per day -Obtain daily weights -Monitor I/O's -Assess dialysis needs daily Acute respiratory failure with hypoxia: -UF with HD -On supplemental oxygen -As per primary team Acute on chronic systolic (congestive) heart failure -UF with HD -As per primary team Ascites -S/P peritoneal drain placement on 03/14/19 -As per primary team Hypertension: -Reconcile home BP meds Subjective Date of service: 03/18/19 Principal diagnosis: ESRD Interval history: tolerated HD yesterday Objective - Vital Signs Vital signs: Vital Signs - 12hr 03/17/19 03/17/19 03/17/19 21:19 22:11 22:13 Temperature 97.5 F L Pulse Rate 57 L 57 L Respiratory 20 Rate Blood Pressure 176/96 176/96 O2 Sat by Pulse 96 95 Oximetry 03/18/19 03/18/19 03/18/19 05:26 08:40 09:02 Temperature 98.5 F Pulse Rate 54 L Respiratory 22 Rate Blood Pressure 175/90 176/92 O2 Sat by Pulse 96 95 Oximetry 03/18/19 09:07 Temperature Pulse Rate Respiratory Rate Blood Pressure 176/92 O2 Sat by Pulse Oximetry - General Appearance General appearance: well-developed, well-nourished, obese EENT: ATNC, PERRL, mucous membranes moist Neck: no JVD, no carotid bruit Respiratory: Present: Decreased Breath Sounds. Absent: Rales, Ronchi Cardiology: regular, S1S2 Gastrointestinal: distended Integumentary: no rash, warm and dry Neurologic: no focal deficit, no asterixis, alert and oriented x3 Musculoskeletal: other (1-2+pitting edema in BLE) Psychiatric: mood/affect appropriate, cooperative - Lab 03/17/19 09:38 03/17/19 09:38 Most recent lab results Calcium 9.0 mg/dL (8.4-10.2) 03/17/19 09:38 Magnesium 2.70 mg/dL (1.7-2.3) H 03/17/19 09:38 Medications & Allergies - Medications Allergies/Adverse Reactions: Allergies labetalol Allergy (Verified 10/16/18 15:22) Vomiting pt also reports drastic drop in HR polystyrene sulfonate [From Kayexalate] Allergy (Verified 10/16/18 13:24) Unknown tramadol [From Ultram] Adverse Reaction (Verified 03/05/18 15:30) Dizziness Home Medications: Home Medications Medication Instructions Recorded Confirmed Last Taken Type Acetaminophen [Acetaminophen TAB] 650 mg PO Q4H PRN #15 tablet 12/28/18 03/17/19 03/13/19 Rx cloNIDine [Catapres] 0.2 mg PO BID #60 tablet 12/28/18 03/17/19 03/13/19 Rx oxyCODONE [roxiCODONE] 5 mg PO Q6HR PRN #20 tablet 12/28/18 03/17/19 03/13/19 Rx Sevelamer Carbonate [Renvela] 800 mg PO TIDWM 01/09/19 03/17/19 03/13/19 History Atenolol [Tenormin] 50 mg PO DAILY 02/01/19 03/17/19 03/13/19 History Aspirin [Adult Aspirin] 81 mg PO PRN PRN 02/08/19 03/17/19 03/13/19 History Oxycodone HCl/Acetaminophen 1 each PO Q6HR PRN #24 tablet 03/14/19 03/17/19 Unknown Rx [Percocet 7.5/325 mg] Active Medications: Generic Name Dose Route Start Last Admin Trade Name Freq PRN Reason Stop Dose Admin Acetaminophen 650 mg 03/17/19 12:19 03/18/19 06:43 Tylenol PO 650 mg Q4H PRN Administration Pain MILD(1-3)/Fever >100.5/SWAIN Aspirin 81 mg 03/17/19 12:19 Halfprin Ec PO QDAY PRN Pain , Moderate Atenolol 50 mg 03/17/19 13:00 03/18/19 09:07 Tenormin PO 50 mg DAILY FOSTER Administration Clonidine HCl 0.2 mg 03/17/19 13:00 03/18/19 09:07 Catapres PO 0.2 mg BID FOSTER Administration Dextrose 50 ml 03/17/19 10:42 D50w (25gm) Syringe IV PRN PRN Hypoglycemia Hydralazine HCl 20 mg 03/17/19 13:21 03/17/19 19:31 Apresoline IV 20 mg Q6HR PRN Administration HTN SBP>165 Ondansetron HCl 4 mg 03/17/19 12:18 03/18/19 01:29 Zofran IV 4 mg Q8H PRN Administration Nausea And Vomiting Oxycodone HCl 5 mg 03/17/19 12:19 03/17/19 20:38 Roxicodone PO 5 mg Q6H PRN Administration Pain , Severe (7-10) Sevelamer Carbonate 800 mg 03/17/19 17:00 03/18/19 09:07 Renvela PO 800 mg TIDWM FOSTER Administration Sodium Chloride 10 ml 03/17/19 22:00 03/18/19 09:08 Sodium Chloride Flush Syringe 10 Ml IV 10 ml BID FOSTER Administration Sodium Chloride 10 ml 03/17/19 12:18 Sodium Chloride Flush Syringe 10 Ml IV PRN PRN LINE FLUSH
--- NOTE | 2019-03-18 09:50 | Progress Note ---
Assessment and Plan Assessment and plan: 48-year-old man who presents to the hospital with shortness of breath and swelling all over. Past medical history CHF, hypertension, liver cirrhosis, end-stage renal disease on dialysis. Patient had a recent peritoneal drain catheter placed by Dr. Castillo on for treatment of recurrent ascites. Labs reviewed potassium 7.2. CT abdomen and pelvis; no significant abnormalities marked polycystic kidneys as seen which were previously there. CT head; no acute findings End-stage renal disease with hyperkalemia due to polycystic kidney disease Was medically treated, management with dialysis Acute respiratory failure with hypoxia Due to fluid overload, continue supplemental oxygen, continue fluid removal by dialysis Acute on chronic systolic CHF, fluid management per dialysis Cardiology consult, optimize cardiac meds Paroxysmal atrial fibrillation Optimize rate/rhythm control medications Ascites Patient has peritoneal drain, drainage as needed Hypertensive urgency Optimize BP meds DVT prophylaxis heparin History Interval history: Review of systems Constitutional: No fevers, no malaise, no joint pains CVS: No chest pain, complaining of orthopnea and pedal edema GI: No abdominal pain, no diarrhea, no vomiting, no constipation, complain of abdominal distention Respiratory: Complaining of shortness of breath Hospitalist Physical - Physical exam Narrative exam: General.: Appears well, no distress, nontoxic HEENT: Moist mucous membranes, extraocular muscles intact, no lymphadenopathy Neck: supple Cardiac: S1-S2 heard Lungs: Bibasilar crackles Abdomen: soft , distended with shifting dullness Extremities: Edema Skin: no rash or lesions Neurologic: no gross focal deficits Psych: calm, and cooperative - Constitutional Vitals: Temp Pulse Resp BP Pulse Ox 98.5 F 54 L 22 176/92 95 03/18/19 05:26 03/18/19 05:26 03/18/19 05:26 03/18/19 09:07 03/18/19 08:40 General appearance: Present: mild distress, obese Results - Labs CBC & Chem 7: 03/17/19 09:38 03/17/19 09:38 Labs: Laboratory Last Values WBC 5.6 K/mm3 (4.5-11.0) 03/17/19 09:38 RBC 4.03 M/mm3 (3.65-5.03) 03/17/19 09:38 Hgb 12.1 gm/dl (11.8-15.2) 03/17/19 09:38 Hct 37.2 % (35.5-45.6) 03/17/19 09:38 MCV 92 fl (84-94) 03/17/19 09:38 MCH 30 pg (28-32) 03/17/19 09:38 MCHC 33 % (32-34) 03/17/19 09:38 RDW 16.0 % (13.2-15.2) H 03/17/19 09:38 Plt Count 131 K/mm3 (140-440) L 03/17/19 09:38 PT 14.6 Sec. (12.2-14.9) 03/17/19 09:38 INR 1.17 (0.87-1.13) H 03/17/19 09:38 Sodium 138 mmol/L (137-145) 03/17/19 09:38 Potassium 7.2 mmol/L (3.6-5.0) H* 03/17/19 09:38 Chloride 96.3 mmol/L (98-107) L 03/17/19 09:38 Carbon Dioxide 15 mmol/L (22-30) L 03/17/19 09:38 Anion Gap 34 mmol/L 03/17/19 09:38 BUN 138 mg/dL (9-20) H 03/17/19 09:38 Creatinine 18.3 mg/dL (0.8-1.5) H 03/17/19 09:38 Estimated GFR 3 ml/min 03/17/19 09:38 BUN/Creatinine Ratio 8 % 03/17/19 09:38 Glucose 87 mg/dL (75-100) 03/17/19 09:38 POC Glucose 150 (70-105) H 03/17/19 16:46 Calcium 9.0 mg/dL (8.4-10.2) 03/17/19 09:38 Magnesium 2.70 mg/dL (1.7-2.3) H 03/17/19 09:38 Total Bilirubin 0.50 mg/dL (0.1-1.2) 03/17/19 09:38 AST 20 units/L (5-40) 03/17/19 09:38 ALT 14 units/L (7-56) 03/17/19 09:38 Alkaline Phosphatase 58 units/L (35-129) 03/17/19 09:38 Total Creatine Kinase 2682 units/L (55-170) H 03/17/19 09:38 Total Protein 7.4 g/dL (6.3-8.2) 03/17/19 09:38 Albumin 3.5 g/dL (3.9-5) L 03/17/19 09:38 Albumin/Globulin Ratio 0.9 % 03/17/19 09:38 Active Medications - Current Medications Current Medications: Generic Name Dose Route Start Last Admin Trade Name Freq PRN Reason Stop Dose Admin Acetaminophen 650 mg 03/17/19 12:19 03/18/19 06:43 Tylenol PO 650 mg Q4H PRN Administration Pain MILD(1-3)/Fever >100.5/SWAIN Aspirin 81 mg 03/17/19 12:19 Halfprin Ec PO QDAY PRN Pain , Moderate Atenolol 50 mg 03/17/19 13:00 03/17/19 19:38 Tenormin PO 50 mg DAILY FOSTER Administration Clonidine HCl 0.2 mg 03/17/19 13:00 03/18/19 09:07 Catapres PO 0.2 mg BID FOSTER Administration Dextrose 50 ml 03/17/19 10:42 D50w (25gm) Syringe IV PRN PRN Hypoglycemia Heparin Sodium (Porcine) 5,000 unit 03/18/19 14:00 Heparin SUB-Q Q8HR FOSTER Hydralazine HCl 20 mg 03/17/19 13:21 03/17/19 19:31 Apresoline IV 20 mg Q6HR PRN Administration HTN SBP>165 Ondansetron HCl 4 mg 03/17/19 12:18 03/18/19 01:29 Zofran IV 4 mg Q8H PRN Administration Nausea And Vomiting Oxycodone HCl 5 mg 03/17/19 12:19 03/17/19 20:38 Roxicodone PO 5 mg Q6H PRN Administration Pain , Severe (7-10) Sevelamer Carbonate 800 mg 03/17/19 17:00 03/18/19 09:21 Renvela PO Not Given TIDWM FOSTER Sodium Chloride 10 ml 03/17/19 22:00 03/18/19 09:08 Sodium Chloride Flush Syringe 10 Ml IV 10 ml BID FOSTER Administration Sodium Chloride 10 ml 03/17/19 12:18 Sodium Chloride Flush Syringe 10 Ml IV PRN PRN LINE FLUSH
[2019-03-18] MEDS ORDERED: NON-FORMULARY (Oxycodone Hcl/Acetaminophen [Percocet 7.5/325 Mg] 1 EACH) PO PRN (09:54)
--- NOTE | 2019-03-18 10:15 | Consultation ---
History of Present Illness Consult date: 03/18/19 Consult reason: congestive heart failure History of present illness: Patient is a 48 year old male with multiple medical problems. He has end-stage renal disease on hemodialysis and chronic ascites requiring frequent paracentesis. He has paroxysmal atrial fibrillation and was previously on low dose oral anticoagulation therapy for stroke prophylaxis. Patient has chronic systolic heart failure, non-ischemic cardiomyopathy by non-invasive cardiac stress thallium test within the last year that documents a normal perfusion scan but a decreased left ventricular systolic function with an ejection fraction 30- 35% by echocardiogram. Follow up echocardiogram done 2 months ago shows a LVEF at 25-30%. Patient also has a history of hypothyroidism, chronic hypertension and known noncompliance with medications, fluid and dietary indiscretions. Patient is admitted with uncontrolled hypertension, volume overload, heart failure and worsening ascites. Initial labs revealed severe hyperkalemia, potassium at 7.2. ECG on presentation was sinus rhythm. No acute ischemic changes. Past History Past Medical History: anemia, ESRD, heart failure, hypertension, renal failure, other (Cirrhosis) Past Surgical History: Other (Peritoneal drainage catheter, dialysis access) Social history: no significant social history Family history: no significant family history Medications and Allergies Allergies Allergy/AdvReac Type Severity Reaction Status Date / Time labetalol Allergy Vomiting Verified 10/16/18 15:22 polystyrene sulfonate Allergy Unknown Verified 10/16/18 13:24 [From Kayexalate] tramadol [From Ultram] AdvReac Dizziness Verified 03/05/18 15:30 Home Medications Medication Instructions Recorded Confirmed Last Taken Type Acetaminophen [Acetaminophen TAB] 650 mg PO Q4H PRN #15 tablet 12/28/18 03/17/19 03/13/19 Rx cloNIDine [Catapres] 0.2 mg PO BID #60 tablet 12/28/18 03/17/19 03/13/19 Rx oxyCODONE [roxiCODONE] 5 mg PO Q6HR PRN #20 tablet 12/28/18 03/17/19 03/13/19 Rx Sevelamer Carbonate [Renvela] 800 mg PO TIDWM 01/09/19 03/17/19 03/13/19 History Atenolol [Tenormin] 50 mg PO DAILY 02/01/19 03/17/19 03/13/19 History Aspirin [Adult Aspirin] 81 mg PO PRN PRN 02/08/19 03/17/19 03/13/19 History Oxycodone HCl/Acetaminophen 1 each PO Q6HR PRN #24 tablet 03/14/19 03/17/19 Unknown Rx [Percocet 7.5/325 mg] Active Meds: Active Medications Acetaminophen (Tylenol) 650 mg PO Q4H PRN PRN Reason: Pain MILD(1-3)/Fever >100.5/SWAIN Last Admin: 03/18/19 06:43 Dose: 650 mg Documented by: Aspirin (Halfprin Ec) 81 mg PO QDAY PRN PRN Reason: Pain , Moderate Atenolol (Tenormin) 50 mg PO DAILY [facility] Last Admin: 03/17/19 19:38 Dose: 50 mg Documented by: Clonidine HCl (Catapres) 0.2 mg PO BID [facility] Last Admin: 03/18/19 09:07 Dose: 0.2 mg Documented by: Dextrose (D50w (25gm) Syringe) 50 ml IV PRN PRN PRN Reason: Hypoglycemia Heparin Sodium (Porcine) (Heparin) 5,000 unit SUB-Q Q8HR [facility] Hydralazine HCl (Apresoline) 20 mg IV Q6HR PRN PRN Reason: HTN SBP>165 Last Admin: 03/17/19 19:31 Dose: 20 mg Documented by: Miscellaneous Medication (Oxycodone Hcl/Acetaminophen [Percocet 7.5/325 Mg]) 1 each PO Q6HR PRN PRN Reason: PAIN Ondansetron HCl (Zofran) 4 mg IV Q8H PRN PRN Reason: Nausea And Vomiting Last Admin: 03/18/19 01:29 Dose: 4 mg Documented by: Oxycodone HCl (Roxicodone) 5 mg PO Q6H PRN PRN Reason: Pain , Severe (7-10) Last Admin: 03/17/19 20:38 Dose: 5 mg Documented by: Sevelamer Carbonate (Renvela) 800 mg PO TIDWM [facility] Last Admin: 03/18/19 09:21 Dose: Not Given Documented by: Sodium Chloride (Sodium Chloride Flush Syringe 10 Ml) 10 ml IV BID [facility] Last Admin: 03/18/19 09:08 Dose: 10 ml Documented by: Sodium Chloride (Sodium Chloride Flush Syringe 10 Ml) 10 ml IV PRN PRN PRN Reason: LINE FLUSH Physical Examination Vital Signs Pulse Resp Pulse Ox 56 L 18 92 03/17/19 09:34 03/17/19 09:34 03/17/19 09:34 Results 03/17/19 09:38 03/17/19 09:38 Cardiac Enzymes 03/17/19 Range/Units 09:38 AST 20 (5-40) units/L Comprehensive Metabolic Panel 03/17/19 Range/Units 09:38 Sodium 138 (137-145) mmol/L Potassium 7.2 H* (3.6-5.0) mmol/L Chloride 96.3 L (98-107) mmol/L Carbon Dioxide 15 L (22-30) mmol/L BUN 138 H (9-20) mg/dL Creatinine 18.3 H (0.8-1.5) mg/dL Glucose 87 (75-100) mg/dL Calcium 9.0 (8.4-10.2) mg/dL AST 20 (5-40) units/L ALT 14 (7-56) units/L Alkaline Phosphatase 58 (35-129) units/L Total Protein 7.4 (6.3-8.2) g/dL Albumin 3.5 L (3.9-5) g/dL Assessment and Plan Volume overload. Paroxysmal Afib previously on low dose eliquis for oral anticoagulation Hyperkalemia Chronic Ascites End-stage renal disease on hemodialysis Chronic systolic heart failure Nonischemic Cardiomyopathy EF 25-30% by echo 12/2018 no ischemia on MPI 12/2017 Hypertension Hypothyroidism Noncompliance Recommendations: Fluid/sodium restriction. Dialysis for fluid management. Medical management for paroxysmal atrial fibrillation and nonischemic cardiomyopathy.
[2019-03-18] MEDS ORDERED: PERCOCET 5/325 PO PRN (10:16)
[2019-03-18] MEDS ORDERED: ROXICODONE PO PRN (10:16)
--- NOTE | 2019-03-18 10:48 | XRay Report ---
CHEST 1 VIEW INDICATION: Short of breath. COMPARISON: 02/20/2019 FINDINGS: Support devices: None. Heart: Mild cardiomegaly is stable. Lungs/Pleura: Mild central pulmonary venous congestion is suspected which is increased since the prev ious exam. No obvious infiltrate, effusion or pneumothorax although the left costophrenic angle is cu t off the [id number]. Additional findings: None. IMPRESSION: Cardiomegaly and pulmonary venous congestion. Signer Name: Lavelle Aaron Jr, MD Signed: 03/18/2019 10:43 AM Workstation Name: [id number]
[2019-03-18 12:40] LABS: Calcium 8.7 mg/dL (8.4-10.2)
[2019-03-18] MEDS ORDERED: HEPARIN SUB-Q SCH (14:00)
[2019-03-18 14:08] VITALS: BP 157/81
[2019-03-18 14:16] LABS: Total Cells Counted 100 /mm3
--- NOTE | 2019-03-18 14:26 | Event Note ---
Was notified by the RN that the patient eloped. They went into his room and he and his family were gone and all his belongings were gone.
== END 2019-03-18 14:15 | disposition left against medical advice (07) | DRG 291 ==
LOC: ED 09:03 → 3A 12:18 → CC1 13:30 → 3A 13:33
PROVIDERS: ADMIT Internal Medicine; ATTEND Internal Medicine
PROC: 5A1D70Z Performance of Urinary Filtration, Intermittent, Less than 6 Hours Per Day (ICD-10-PCS; principal; 2019-03-17)
DX: I13.2 Hypertensive heart and chronic kidney disease with heart failure and with stage 5 chronic kidney disease, or end stage renal disease (principal); I50.43 Acute on chronic combined systolic (congestive) and diastolic (congestive) heart failure; N18.6 End stage renal disease; J96.01 Acute respiratory failure with hypoxia; M62.82 Rhabdomyolysis; E87.2 Acidosis; Q61.3 Polycystic kidney, unspecified; R18.8 Other ascites; I42.8 Other cardiomyopathies; E87.5 Hyperkalemia; I16.0 Hypertensive urgency; K74.60 Unspecified cirrhosis of liver; E87.70 Fluid overload, unspecified; I48.0 Paroxysmal atrial fibrillation; E03.9 Hypothyroidism, unspecified; I89.0 Lymphedema, not elsewhere classified; K21.9 Gastro-esophageal reflux disease without esophagitis; F17.200 Nicotine dependence, unspecified, uncomplicated; Z99.2 Dependence on renal dialysis; Z71.89 Other specified counseling; Z79.899 Other long term (current) drug therapy; Z79.82 Long term (current) use of aspirin; Z91.14 Patient's other noncompliance with medication regimen; Z82.49 Family history of ischemic heart disease and other diseases of the circulatory system
CPT/HCPCS: 36415; 70450; 71045; 74176; 80048; 80053; 82040; 82150; 82550; 82947; 82962; 83735; 84160; 85027; 85610; 87116; 89051; 93005; 93010; 94760; 96374; G0378; J0360; J0610; J1815; J2060; J2405; J3010; J7030

== ENCOUNTER 2019-04-01 20:50 | Inpatient (IN) | payer MEDICARE ==
[2019-04-01] MEDS ORDERED: HYDROmorphone 1 MG/1 ML INJ IV ONE (21:15)
[2019-04-01] MEDS ORDERED: ONDANSETRON 4 MG/2 ML INJ IV ONE (21:15)
[2019-04-01 21:38] LABS: Basophils # (Auto) 0.1 K/mm3 (0.0-0.1); Basophils % (Auto) 0.5 % (0.0-1.8); Eosinophils % (Auto) 0.1 % (0.0-4.3); Hematocrit 39.3 % (35.5-45.6); Hemoglobin 12.6 gm/dl (11.8-15.2); Lymphocytes # (Auto) 0.5 K/mm3 (1.2-5.4); Mean Corpuscular HGB Conc 32 % (32-34); Mean Corpuscular Volume 92 fl (84-94); Monocytes # (Auto) 1.1 K/mm3 (0.0-0.8); Monocytes % (Auto) 9.3 % (0.0-7.3); Platelet Count 136 K/mm3 (140-440); Red Blood Count 4.29 M/mm3 (3.65-5.03); Red Cell Distribution Width 16.3 % (13.2-15.2)
[2019-04-01 22:07] LABS: Alanine Aminotransferase 16 units/L (7-56); Albumin 2.8 g/dL (3.9-5); Calcium 8.5 mg/dL (8.4-10.2); Hemolysis Index 47
[2019-04-01] MEDS ORDERED: SODIUM BICARB 8.4% 50 MEQ/50 ML SYRINGE IV ONE ×2 (22:34→22:43)
[2019-04-01] MEDS ORDERED: ALBUTEROL 2.5 MG/3 ML NEBU IH ONE (22:43)
[2019-04-01] MEDS ORDERED: CALCIUM GLUCONATE 1,000 MG in SODIUM CHLORIDE 0.9% 100 ML IV ONE (22:43)
[2019-04-01] MEDS ORDERED: INSULIN REGULAR, HUMAN 100 UNITS/1 ML IV ONE (22:44)
[2019-04-01] MEDS ORDERED: DEXTROSE 50% IN WATER (25GM) 50 ML SYRINGE IV ONE (22:44)
[2019-04-01 22:45] LABS: BUN/Creatinine Ratio 6; Blood Urea Nitrogen 118 mg/dL (9-20)
--- NOTE | 2019-04-01 22:47 | XRay Report ---
CHEST 1 VIEW INDICATION: weakness, missed dialysis COMPARISON: 03/18/2019 FINDINGS: Support devices: None Heart: Moderately enlarged but stable Lungs/Pleura: No acute pulmonary or pleural findings. IMPRESSION: 1. Cardiomegaly, but no acute disease and no interval change. Signer Name: Dariusz Ramos MD Signed: 04/01/2019 10:43 PM Workstation Name: [id number]
--- NOTE | 2019-04-01 23:12 | Emergency Department Report ---
ED General Adult HPI - General Chief complaint: Pain General Stated complaint: BODY PAIN Time Seen by Provider: 04/01/19 21:03 Source: EMS, old records reviewed Mode of arrival: Stretcher Limitations: Physical Limitation - History of Present Illness Initial comments: 48-year-old male with a past medical history of end-stage renal disease on dialysis, CHF, hypertension, liver cirrhosis with recurrent ascites and recently placed peritoneal drainage catheter presents to the hospital complains of generalized body pain since yesterday. Patient states he is allergic shot throughout his body that is intermittent. No aggravating or relieving factors reported. Today patient states he stood up and had episode of lightheadedness and fell on his left side. Denies head injury or syncope. He also denies chest pain. Receives dialysis Monday, , Monday and he missed his Monday session. His medical front desk coordinator is not affiliated. Patient has a history of noncompliance. Severity scale (0 -10): 0 - Related Data Home Medications Medication Instructions Recorded Confirmed Last Taken Sevelamer Carbonate [Renvela] 800 mg PO TIDWM 01/09/19 03/17/19 03/13/19 Atenolol [Tenormin] 50 mg PO DAILY 02/01/19 03/17/19 03/13/19 Aspirin [Adult Aspirin] 81 mg PO PRN PRN 02/08/19 03/17/19 03/13/19 Previous Rx's Medication Instructions Recorded Last Taken Type Acetaminophen [Acetaminophen TAB] 650 mg PO Q4H PRN #15 tablet 12/28/18 03/13/19 Rx cloNIDine [Catapres] 0.2 mg PO BID #60 tablet 12/28/18 03/13/19 Rx oxyCODONE [roxiCODONE] 5 mg PO Q6HR PRN #20 tablet 12/28/18 03/13/19 Rx Oxycodone HCl/Acetaminophen 1 each PO Q6HR PRN #24 tablet 03/14/19 Unknown Rx [Percocet 7.5/325 mg] Allergies Allergy/AdvReac Type Severity Reaction Status Date / Time labetalol Allergy Vomiting Verified 10/16/18 15:22 polystyrene sulfonate Allergy Unknown Verified 10/16/18 13:24 [From Kayexalate] tramadol [From Ultram] AdvReac Dizziness Verified 03/05/18 15:30 ED Review of Systems ROS: Stated complaint: BODY PAIN Other details as noted in HPI Comment: All other systems reviewed and negative ED Past Medical Hx - Past Medical History Previous Medical History?: Yes Hx Hypertension: Yes Hx CVA: No Hx Heart Attack/AMI: No Hx Congestive Heart Failure: Yes (diastolic - CHRONIC , CARDIOMYOPATHY) Hx Diabetes: No Hx Deep Vein Thrombosis: No Hx Pulmonary Embolism: No Hx GERD: No Hx Liver Disease: No Hx Renal Disease: Yes (HD TTS) Hx Sickle Cell Disease: No Hx Arthritis: No Hx Headaches / Migraines: No Hx Seizures: No Hx Kidney Stones: No Hx Psychiatric Treatment: No Hx Asthma: No Hx COPD: No Hx Tuberculosis: No Hx Dementia: No Hx HIV: No Additional medical history: Abdominal Hernias, right groin hernia, ascites - Surgical History Past Surgical History?: Yes Hx Coronary Stent: No Hx Open Heart Surgery: No Hx Pacemaker: No Hx Internal Defibrillator: No Hx Cholecystectomy: No Hx Appendectomy: No Hx Breast Surgery: No Additional Surgical History: dialysis access left arm, groin hernia repair, - Social History Smoking Status: Current Some Day Smoker Substance Use Type: Marijuana - Medications Home Medications: Home Medications Medication Instructions Recorded Confirmed Last Taken Type Acetaminophen [Acetaminophen TAB] 650 mg PO Q4H PRN #15 tablet 12/28/18 03/17/19 03/13/19 Rx cloNIDine [Catapres] 0.2 mg PO BID #60 tablet 12/28/18 03/17/19 03/13/19 Rx oxyCODONE [roxiCODONE] 5 mg PO Q6HR PRN #20 tablet 12/28/18 03/17/19 03/13/19 Rx Sevelamer Carbonate [Renvela] 800 mg PO TIDWM 01/09/19 03/17/19 03/13/19 History Atenolol [Tenormin] 50 mg PO DAILY 02/01/19 03/17/19 03/13/19 History Aspirin [Adult Aspirin] 81 mg PO PRN PRN 02/08/19 03/17/19 03/13/19 History Oxycodone HCl/Acetaminophen 1 each PO Q6HR PRN #24 tablet 03/14/19 03/17/19 Unknown Rx [Percocet 7.5/325 mg] ED Physical Exam - General Limitations: Physical Limitation - Other Other exam information: General: No acute distress Head: Atraumatic Eyes: normal appearance ENT: Moist mucous membranes Neck: Normal appearance, no midline tenderness Chest: Clear to auscultation bilaterally CV: Regular rate and rhythm Abdomen: Soft, normal bowel sounds, nontender, nondistended distention, peritoneal catheter, no rebound or guarding Back: Normal inspection Extremity: Normal inspection infection, bilateral lower extremity lymphedema, small blisters to the left lateral lower leg. Left arm AV access for dialysis Neuro: Alert O x 3, no facial asymmetry, speech clear, no gross motor sensory deficit Psych: Appropriate behavior Skin: No rash ED Course Vital Signs 04/01/19 04/01/19 04/01/19 21:15 21:24 21:54 Temperature 99 F Pulse Rate 66 Pulse Rate [ Bilateral Throughout] Respiratory 15 16 21 Rate Respiratory Rate [Bilateral Throughout] Blood Pressure 180/83 Blood Pressure 180/83 [Right] O2 Sat by Pulse 96 Oximetry 04/01/19 23:08 Temperature Pulse Rate Pulse Rate [ 79 Bilateral Throughout] Respiratory Rate Respiratory 20 Rate [Bilateral Throughout] Blood Pressure Blood Pressure [Right] O2 Sat by Pulse Oximetry - Consultations Consultation #1: 04/01/19 23:[address] Wyatt will arrange for emergent dialysis ED Medical Decision Making - Lab Data Result diagrams: 04/01/19 21:26 04/01/19 21:26 Lab Results 04/01/19 04/01/19 04/01/19 Range/Units 21:26 21:26 23:08 WBC 12.0 H (4.5-11.0) K/mm3 RBC 4.29 (3.65-5.03) M/mm3 Hgb 12.6 (11.8-15.2) gm/dl Hct 39.3 (35.5-45.6) % MCV 92 (84-94) fl MCH 29 (28-32) pg MCHC 32 (32-34) % RDW 16.3 H (13.2-15.2) % Plt Count 136 L (140-440) K/mm3 Lymph % (Auto) 4.0 L (13.4-35.0) % [place] % (Auto) 9.3 H (0.0-7.3) % Eos % (Auto) 0.1 (0.0-4.3) % Baso % (Auto) 0.5 (0.0-1.8) % Lymph # 0.5 L (1.2-5.4) K/mm3 [place] # 1.1 H (0.0-0.8) K/mm3 Eos # 0.0 (0.0-0.4) K/mm3 Baso # 0.1 (0.0-0.1) K/mm3 Seg Neutrophils % 86.1 H (40.0-70.0) % Seg Neutrophils # 10.3 H (1.8-7.7) K/mm3 Sodium 132 L (137-145) mmol/L Potassium 7.9 H* (3.6-5.0) mmol/L Chloride 95.5 L (98-107) mmol/L Carbon Dioxide 13 L (22-30) mmol/L Anion Gap 31 mmol/L BUN 118 H (9-20) mg/dL Creatinine 18.2 H (0.8-1.5) mg/dL Estimated GFR 3 ml/min BUN/Creatinine Ratio 6 % Glucose 99 (75-100) mg/dL POC Glucose 86 (70-105) Calcium 8.5 (8.4-10.2) mg/dL Total Bilirubin 0.50 (0.1-1.2) mg/dL AST 22 (5-40) units/L ALT 16 (7-56) units/L Alkaline Phosphatase 67 (35-129) units/L NT-Pro-B Natriuret Pep > 00316 H (0-450) pg/mL Total Protein 7.2 (6.3-8.2) g/dL Albumin 2.8 L (3.9-5) g/dL Albumin/Globulin Ratio 0.6 % - EKG Data -: EKG Interpreted by Me (right bundle-branch block, junctional rhythm) EKG shows normal: ST-T waves (no stemi) Rate: normal (63) - EKG Data When compared to previous EKG there are: changes noted (new qrs widening) - Radiology Data Radiology results: report reviewed CHEST 1 VIEW INDICATION: weakness, missed dialysis COMPARISON: 03/18/2019 FINDINGS: Support devices: None Heart: Moderately enlarged but stable Lungs/Pleura: No acute pulmonary or pleural findings. IMPRESSION: 1. Cardiomegaly, but no acute disease and no interval change. - Medical Decision Making Patient physician denies body pain. Uremic and has hyperkalemia and acidosis secondary to dialysis noncompliance. Patient received calcium, albuterol, sodium bicarbonate, insulin, and glucose. Nephrology to arrange for emergent dialysis Critical Care Time: No Critical care attestation.: If time is entered above; I have spent that time in minutes in the direct care of this critically ill patient, excluding procedure time. ED Disposition Clinical Impression: ESRD needing dialysis, Hyperkalemia, Noncompliance, Generalized pain, RBBB, Junctional rhythm Disposition: OP ADMIT IP TO THIS HOSP Is pt being admited?: Yes Condition: Stable Time of Disposition: 23:06 (dr figueroa/hosp)
[2019-04-01] MEDS ORDERED: SODIUM CHLORIDE 0.9% 100 ML IV PRN ×2 (23:14→23:23)
[2019-04-01] MEDS ORDERED: ACETAMINOPHEN 325 MG TAB PO PRN (23:27)
[2019-04-01] MEDS ORDERED: ONDANSETRON 4 MG/2 ML INJ IV PRN (23:27)
[2019-04-01 23:33] LABS: Chol/HDL Ratio 2.54 %
--- NOTE | 2019-04-01 23:37 | History and Physical Report ---
History of Present Illness Date of examination: 04/01/19 History of present illness: 48-year-old man with a history of polycystic kidney disease, hypertension, Afib, recurrent ascites ,end-stage renal disease and dialysis comes emergency room with complaints of diffuse body ache, he missed HD on Monday. He has chronic ascites with indwellin catheter that drains 1 to 1.5L a day. States 3 days ago he noticed his left thigh becoming red and tender, admits to fever.States he is not on eliquis anymore Review Of Systems: Constitutional: no Fever, no weight loss Ears, eyes, nose, mouth and throat: no nasal congestion, no nasal discharge, no sinus pressure, blurry vision, diplopia Neck: No neck pain or rigidity. Cardiovascular: orthopnea, palpitations, chest pain Respiratory: No cough, shortness of breath Gastrointestinal: abdominal pain, hematochezia Genitourinary : no dysuria, frequency Musculoskeletal: no muscle ache Integumentary: no rash, no pruritis Neurological: no parathesias, focal weakness Endocrine: no cold or heat intolerance, no polyuria or polydipsia Hematologic/Lymphatic: no easy bruising, no easy bleeding, no gland swelling Allergic/Immunologic: no urticaria, no angioedema. PAST MEDICAL HISTORY:polycystic kidney disease, hypertension, afib, end-stage re nal disease, recurrent ascites PAST SURGICAL HISTORY: AV fistula, hernia repair FAMILY HISTORY: hypertension SOCIAL HISTORY: Denies alcohol, tobacco, drug Medications and Allergies Allergies Allergy/AdvReac Type Severity Reaction Status Date / Time labetalol Allergy Vomiting Verified 10/16/18 15:22 polystyrene sulfonate Allergy Unknown Verified 10/16/18 13:24 [From Kayexalate] tramadol [From Ultram] AdvReac Dizziness Verified 03/05/18 15:30 Home Medications Medication Instructions Recorded Confirmed Last Taken Type cloNIDine [Catapres] 0.2 mg PO BID #60 tablet 12/28/18 04/01/19 03/13/19 Rx oxyCODONE [roxiCODONE] 5 mg PO Q6HR PRN #20 tablet 12/28/18 04/01/19 03/13/19 Rx Active Meds: Active Medications Acetaminophen (Tylenol) 650 mg PO Q4H PRN PRN Reason: Pain MILD(1-3)/Fever >100.5/SWAIN Enoxaparin Sodium (Enoxaparin) 30 mg SUB-Q QDAY FOSTER Sodium Chloride (Nacl 0.9%) 100 mls @ 999 mls/hr IV JULIA PRN PRN Reason: Hypotension Ondansetron HCl (Zofran) 4 mg IV Q8H PRN PRN Reason: Nausea And Vomiting Oxycodone/Acetaminophen (Percocet 5/325) 1 tab PO Q6H PRN PRN Reason: Pain, Moderate (4-6) Sodium Chloride (Sodium Chloride Flush Syringe 10 Ml) 10 ml IV BID FOSTER Sodium Chloride (Sodium Chloride Flush Syringe 10 Ml) 10 ml IV PRN PRN PRN Reason: LINE FLUSH Exam - Physical Exam Narrative exam: General Apperance: The patient lying in bed, breathing comfortable HEENT: Normocephalic, atraumatic. Pupils equally round and reactive to light, EOMI, no sclericterus or JVD or thyromegaly or nodule. , no carotid bruit, mucous membranes moist, no exudate or erythema Heart: S1-S2, regular is rhythm Lungs: Clear to auscultation bilaterally, breathing comfortable Abdomen: Positive bowel sounds, soft, distended, nontender, difficult to assess for organomegaly Extremities: + edema up to thighs, left > right, +erythem on left thigh, tender to touch, no cyanosis clubbing Skin: no rash, nodule, warm and dry, left leg wound Neuro: cranial nerves 2-12 intact, speech is fluent, motor/sensory intact - Constitutional Vitals: Temp Pulse Resp BP Pulse Ox 99 F 79 20 180/83 96 04/01/19 21:15 04/01/19 23:08 04/01/19 23:08 04/01/19 21:15 04/01/19 21:15 Results - Labs CBC & Chem 7: 04/01/19 21:26 04/01/19 21:26 Labs: Abnormal lab results 04/01/19 04/01/19 04/01/19 Range/Units 21:26 21:26 22:52 WBC 12.0 H (4.5-11.0) K/mm3 RDW 16.3 H (13.2-15.2) % Plt Count 136 L (140-440) K/mm3 Lymph % (Auto) 4.0 L (13.4-35.0) % [place] % (Auto) 9.3 H (0.0-7.3) % Lymph # 0.5 L (1.2-5.4) K/mm3 [place] # 1.1 H (0.0-0.8) K/mm3 Seg Neutrophils % 86.1 H (40.0-70.0) % Seg Neutrophils # 10.3 H (1.8-7.7) K/mm3 Sodium 132 L (137-145) mmol/L Potassium 7.9 H* (3.6-5.0) mmol/L Chloride 95.5 L (98-107) mmol/L Carbon Dioxide 13 L (22-30) mmol/L BUN 118 H (9-20) mg/dL Creatinine 18.2 H (0.8-1.5) mg/dL Troponin T 1.350 H* (0.00-0.029) ng/mL NT-Pro-B Natriuret Pep > 88114 H (0-450) pg/mL Albumin 2.8 L (3.9-5) g/dL - Imaging and Cardiology EKG: image reviewed Chest x-ray: report reviewed Assessment and Plan Assessment Fluid Overload, need emergent HD Hyperkalemia Abnormal cardiac enzymes, asymptomatic Cellulitis of Left thigh LE wound Afib Hypertension ESRD Polycystic kidney disease Thrombocytopenia Plan Admit to medicine s/p cocktail for hyperkalemia Renal was consulted for urgent dialysis check cardiac enzymes, consult cardiology, wound care DVT prophylaxis
[2019-04-02 00:02] LABS: Creatine Kinase MB 23.5 ng/mL (0.0-4.0)
[2019-04-02] MEDS: PIPERACIL-TAZO 2.25 GM/50 ML 2.25 GM/50 ML BAG IV SCH ×3 (00:05→15:55)
[2019-04-02 00:14] LABS: Hepatitis B Surface Antigen Non-Reactive (Negative)
[2019-04-02 01:13] LABS: Hepatitis C Virus Antibody Non-Reactive (NonReactive)
[2019-04-02] MEDS ORDERED: hydrALAZINE 20 MG/1 ML INJ IV PRN (02:01)
[2019-04-02 08:51] LABS: Creatine Kinase MB 14.2 ng/mL (0.0-4.0)
--- NOTE | 2019-04-02 09:04 | Consultation ---
History of Present Illness - History of Present Illness My assessment and plan are as follows End-stage renal disease: Patient will continue with hemodialysis treatment on Monday Admitted with severe hyperkalemia potassium 7.9 metabolic acidosis bicarbonate 13 Patient did receive hemodialysis treatment, He is extremely noncompliant and hence his mortality risk is very high being on dialysis with ongoing chronic noncompliance, Also told him that he does require approximately 4 hours of treatment every dialysis which he refuses to do Anemia and end-stage renal disease: To monitor and follow, erythropoietin as required goal hemoglobin dialysis patients usually occurring 10 and 12, we will follow Secondary hyperparathyroidism: Monitor phosphorus and PTH periodically and adjust binders as needed Diet and nutrition: Fluid restriction 1200 mL per day, high-protein diet may benefit from nutrition consultation , patient is protein intake should be 1.5 g per KG body weight Hypertension and volume continue to monitor, educated about fluid restriction sodium restriction Renal care plan has been discussed with patient/discussed about dietary changes lifestyle recommendations were also made/he does have a clear understanding of all this Patient's prognosis is very poor clearly educated him that his mortality rate is very high due to his noncompliance, He will need to make a follow-up appointment with his mainspring reverse winder upon discharge We'll continue to follow and make recommendation from renal standpoint She have any questions please feel free to contact me at [phone] Chan Smith M.D. [facility] Nephrology, [address] [place] [address] History of presenting illness Patient is a 48-year-old -Turkmen male who has known history of chronic noncompliance presented to hospital with severe hyperkalemia and metabolic acidosis requiring dialysis overnight He has been having some pain and tenderness in his left thigh and is currently being followed by hospital medicine service Patient does not comply with treatment recommendation, continues to abuse fluid and does not follow a proper diet I also called his dialysis center and found out from the nurse that patient missed his dialysis treatment, he does not complete his treatment like he should Confirm that he was not on peritoneal dialysis also discussed with his treating mainspring reverse winder, who also confirmed that patient has been very noncompliant Past medical history significant for End-stage renal disease Hyperkalemia secondary hyperparathyroidism Chronic noncompliance Cirrhosis of the liver Recurrent gastritis Peritoneal drain Congestive heart failure cardiomyopathy Left arm fistula Chronic ongoing tobacco abuse/ marijuana abuse Current allergies: Reviewed Social history family history: Reviewed Home medication present medication: Reviewed Review of systems positive for Feeling weak and tired muscle cramps pain Noncompliance with treatment recommendation Does not follow a proper diet Does not control his fluid All other review of system negative Physical examination: General: No acute distress HEENT: Oral mucosa moist no icterus, no facial swelling Neck: Supple no thyromegaly no lymphadenopathy no JVD Chest: Clear to auscultation no crackles rales or wheezes Heart: Regular rate and rhythm S1-S2 heard no S3-S4 Abdomen: Soft nontender no organomegaly no masses palpable no renal bruit no suprapubic masses no CVA tenderness Joe in the flank area Chronic abdominal distention, dull flanks Dermatology: No skin rashes noted Extremity: 2+ peripheral edema, dry skin no petechial rashes His left thigh appears to be somewhat swollen and tender Musculoskeletal: No joint effusion noted in knee and ankle area Psych: No evidence of agitation and aggression noted Neurological: Alert awake follows commands no tremors no myoclonus Back: No CVA tenderness Medications and Allergies Allergies Allergy/AdvReac Type Severity Reaction Status Date / Time labetalol Allergy Vomiting Verified 10/16/18 15:22 polystyrene sulfonate Allergy Unknown Verified 10/16/18 13:24 [From Kayexalate] tramadol [From Ultram] AdvReac Dizziness Verified 03/05/18 15:30 Home Medications Medication Instructions Recorded Confirmed Last Taken Type cloNIDine [Catapres] 0.2 mg PO BID #60 tablet 12/28/18 04/01/19 03/13/19 Rx oxyCODONE [roxiCODONE] 5 mg PO Q6HR PRN #20 tablet 12/28/18 04/01/19 03/13/19 Rx Active Meds: Active Medications Acetaminophen (Tylenol) 650 mg PO Q4H PRN PRN Reason: Pain MILD(1-3)/Fever >100.5/SWAIN Clonidine HCl (Catapres) 0.2 mg PO BID FOSTER Enoxaparin Sodium (Enoxaparin) 30 mg SUB-Q QDAY FOSTER Hydralazine HCl (Apresoline) 5 mg IV Q6H PRN PRN Reason: Hypertension Hydralazine HCl (Apresoline) 100 mg PO TID FOSTER Sodium Chloride (Nacl 0.9%) 100 mls @ 999 mls/hr IV JULIA PRN PRN Reason: Hypotension Piperacillin Sod/Tazobactam Sod (Zosyn/Ns 2.25 Gm/50ml) 2.25 gm in 50 mls @ 100 mls/hr IV Q8H FOSTER; Protocol Last Admin: 04/02/19 00:05 Dose: 100 mls/hr Documented by: Ondansetron HCl (Zofran) 4 mg IV Q8H PRN PRN Reason: Nausea And Vomiting Oxycodone/Acetaminophen (Percocet 5/325) 1 tab PO Q6H PRN PRN Reason: Pain, Moderate (4-6) Sodium Chloride (Sodium Chloride Flush Syringe 10 Ml) 10 ml IV BID FOSTER Sodium Chloride (Sodium Chloride Flush Syringe 10 Ml) 10 ml IV PRN PRN PRN Reason: LINE FLUSH Exam - Vital Signs Vital signs: Vital Signs Temp Pulse Resp BP Pulse Ox 99 F 66 15 180/83 96 04/01/19 21:15 04/01/19 21:15 04/01/19 21:15 04/01/19 21:15 04/01/19 21:15 Results - Lab Results 04/02/19 14:45 04/03/19 06:12 Most recent lab results Calcium 8.5 mg/dL (8.4-10.2) 04/01/19 21:26
[2019-04-02 09:09] LABS: Calcium 8.1 mg/dL (8.4-10.2)
[2019-04-02] MEDS: cloNIDine 0.2 MG TAB PO SCH ×2 (09:15→22:43)
[2019-04-02] MEDS: ENOXAPARIN 30 MG/0.3 ML INJ SUB-Q SCH (09:15)
--- NOTE | 2019-04-02 11:31 | Consultation ---
History of Present Illness Consult date: 04/02/19 Consult reason: elevated troponin History of present illness: This is a 48 year old male with multiple medical problems. He has end-stage renal disease on hemodialysis and has a peritoneal drainage catheter for chronic ascities. He has paroxysmal atrial fibrillation and was previously on low dose Eliquis for stroke prophylaxis. Patient has chronic systolic heart failure, non- ischemic cardiomyopathy by non-invasive cardiac stress thallium test within the last year that documents a normal perfusion scan but a decreased left ventricular systolic function with an ejection fraction 30-35% by echocardiogram. Follow up echocardiogram done 2 months ago shows a LVEF at 25- 30%. Patient also has a history of hypothyroidism, chronic hypertension and known noncompliance with medications, fluid and dietary indiscretions. Patient is admitted with generalized pain following a fall. Patient denies loss of consciousness. He reports upon standing his legs gave out resulting in a fall. Initial labs revealed severe hyperkalemia, potassium at 7.9. It's reported the patient missed a dialysis session on last week and at times he is not completing the dialysis session. ECG on presentation is junctional rhythm with a right bundle branch block. Patient was taken urgently to dialysis from the emergency department. A repeat potassium is 6.9. Medications and Allergies Allergies Allergy/AdvReac Type Severity Reaction Status Date / Time labetalol Allergy Vomiting Verified 10/16/18 15:22 polystyrene sulfonate Allergy Unknown Verified 10/16/18 13:24 [From Kayexalate] tramadol [From Ultram] AdvReac Dizziness Verified 03/05/18 15:30 Home Medications Medication Instructions Recorded Confirmed Last Taken Type cloNIDine [Catapres] 0.2 mg PO BID #60 tablet 12/28/18 04/01/19 03/13/19 Rx oxyCODONE [roxiCODONE] 5 mg PO Q6HR PRN #20 tablet 12/28/18 04/01/19 03/13/19 Rx Active Meds: Active Medications Acetaminophen (Tylenol) 650 mg PO Q4H PRN PRN Reason: Pain MILD(1-3)/Fever >100.5/SWAIN Clonidine HCl (Catapres) 0.2 mg PO BID [facility] Last Admin: 04/02/19 09:15 Dose: 0.2 mg Documented by: Enoxaparin Sodium (Enoxaparin) 30 mg SUB-Q QDAY [facility] Last Admin: 04/02/19 09:15 Dose: 30 mg Documented by: Hydralazine HCl (Apresoline) 5 mg IV Q6H PRN PRN Reason: Hypertension Hydralazine HCl (Apresoline) 100 mg PO TID [facility] Sodium Chloride (Nacl 0.9%) 100 mls @ 999 mls/hr IV JULIA PRN PRN Reason: Hypotension Piperacillin Sod/Tazobactam Sod (Zosyn/Ns 2.25 Gm/50ml) 2.25 gm in 50 mls @ 100 mls/hr IV Q8H [facility]; Protocol Last Admin: 04/02/19 09:03 Dose: 100 mls/hr Documented by: Ondansetron HCl (Zofran) 4 mg IV Q8H PRN PRN Reason: Nausea And Vomiting Oxycodone/Acetaminophen (Percocet 5/325) 1 tab PO Q6H PRN PRN Reason: Pain, Moderate (4-6) Sodium Chloride (Sodium Chloride Flush Syringe 10 Ml) 10 ml IV BID [facility] Last Admin: 04/02/19 09:16 Dose: 10 ml Documented by: Sodium Chloride (Sodium Chloride Flush Syringe 10 Ml) 10 ml IV PRN PRN PRN Reason: LINE FLUSH Physical Examination Vital Signs Temp Pulse Resp BP Pulse Ox 99 F 66 15 180/83 96 04/01/19 21:15 04/01/19 21:15 04/01/19 21:15 04/01/19 21:15 04/01/19 21:15 General appearance: no acute distress HEENT: Positive: PERRL Cardiac: Positive: Reg Rate and Rhythm Lungs: Positive: Decreased Breath Sounds Neuro: Positive: Weakness Extremities: Present: edema Results 04/01/19 21:26 04/02/19 07:05 Cardiac Enzymes 04/01/19 04/01/19 04/02/19 Range/Units 21:26 22:47 07:05 AST 22 (5-40) units/L CK-MB (CK-2) 23.5 H 14.2 H (0.0-4.0) ng/mL Lipids 04/01/19 Range/Units 22:52 Triglycerides 55 (2-149) mg/dL Cholesterol 145 (50-199) mg/dL HDL Cholesterol 57 (40-59) mg/dL Cholesterol/HDL Ratio 2.54 % CBC 04/01/19 Range/Units 21:26 WBC 12.0 H (4.5-11.0) K/mm3 RBC 4.29 (3.65-5.03) M/mm3 Hgb 12.6 (11.8-15.2) gm/dl Hct 39.3 (35.5-45.6) % Plt Count 136 L (140-440) K/mm3 Lymph # 0.5 L (1.2-5.4) K/mm3 [place] # 1.1 H (0.0-0.8) K/mm3 Eos # 0.0 (0.0-0.4) K/mm3 Baso # 0.1 (0.0-0.1) K/mm3 Comprehensive Metabolic Panel 04/01/19 04/02/19 Range/Units 21:26 07:05 Sodium 132 L 136 L (137-145) mmol/L Potassium 7.9 H* 6.9 H* (3.6-5.0) mmol/L Chloride 95.5 L 94.9 L (98-107) mmol/L Carbon Dioxide 13 L 15 L (22-30) mmol/L BUN 118 H 93 H (9-20) mg/dL Creatinine 18.2 H 16.5 H (0.8-1.5) mg/dL Glucose 99 89 (75-100) mg/dL Calcium 8.5 8.1 L (8.4-10.2) mg/dL AST 22 (5-40) units/L ALT 16 (7-56) units/L Alkaline Phosphatase 67 (35-129) units/L Total Protein 7.2 (6.3-8.2) g/dL Albumin 2.8 L (3.9-5) g/dL Assessment and Plan Generalized weakness Paroxysmal Afib previously on low dose eliquis for oral anticoagulation Hyperkalemia Chronic Ascites End-stage renal disease on hemodialysis Chronic systolic heart failure Nonischemic Cardiomyopathy EF 25-30% by echo 12/2018 no ischemia on MPI 12/2017 Hypertension Hypothyroidism Noncompliance Recommendations: Fluid/sodium restriction. Dialysis for fluid management. Medical management for paroxysmal atrial fibrillation and nonischemic cardiomyopathy.
[2019-04-02] MEDS: hydrALAZINE 100 MG TAB PO SCH ×3 (13:35→21:10)
[2019-04-02 15:03] LABS: Hematocrit 35.1 % (35.5-45.6); Hemoglobin 11.2 gm/dl (11.8-15.2); Mean Corpuscular HGB Conc 32 % (32-34); Mean Corpuscular Volume 92 fl (84-94); Platelet Count 135 K/mm3 (140-440); Red Blood Count 3.82 M/mm3 (3.65-5.03); Red Cell Distribution Width 16.4 % (13.2-15.2)
--- NOTE | 2019-04-02 15:58 | Event Note ---
Date: 04/02/19 Patient admitted earlier this morning for the management of left leg cellulitis and missed HD. Continue management as outlined in H&P.
[2019-04-02 17:18] LABS: Calcium 8.1 mg/dL (8.4-10.2)
[2019-04-02] MEDS: oxyCODONE /ACETAMINOPHEN 5-325MG TAB PO PRN (17:40)
--- NOTE | 2019-04-02 17:45 | Progress Note ---
Assessment and Plan Assessment and plan: ESRD on hemodialysis severe hyperkalemia - Patient need 4 1/2 hours of HD - Patient said he did dialysis this morning which I doubt because I saw the patient early in the morning, at that time couldn't finish dialyis - Discussed with nephrology and patient was non complaint with dialysis and if at all he has dialysis he usually cuts to 2 hrs - I had him treated with hyperkalemia cocktail, potassium was 7.4 - He will have dialysis today, and tomorrow - will check BMP in the morning Left lower extremity cellulitis - Patient is on IV Zosyn - Discussed that WBCs trending up - ID consulted Dialysis noncompliance - Patient was counseled extensively Thrombocytopenia - Platelet count is 135, continue to monitor Paroxysmal A. fib, cardiomyopathy - Cardiology consulted management is per cardiology DVT prophylaxis - On low-dose Lovenox Disposition - Continue inpatient care Prognosis; poor. Patient's potassium is persistently high and he is at risk of cardiac complications. History Interval history: Patient was seen and evaluated this morning. Patient still complains pain in the left leg. Hospitalist Physical - Physical exam Narrative exam: Not in cardiopulmonary distress. The patient is obese. Vital signs as documented. Head exam is unremarkable. No scleral icterus . Neck is without jugular venous distension, thyromegaly, or carotid bruits. Lungs are clear to auscultation. Cardiac exam reveals regular rate and Rhythm. First and second heart sounds normal. No murmurs, rubs or gallops. Abdominal exam reveals clean dressing on the lower abdomen the site for paracentesis. Extremities bilateral leg swelling and induration of the left leg. INSTRUCTIONAL INTERVENTIONIST: Alert and oriented 3. No focal weakness. - Constitutional Vitals: Temp Pulse Resp BP Pulse Ox 98.3 F 88 18 159/76 93 04/02/19 09:03 04/02/19 12:00 04/02/19 09:03 04/02/19 09:15 04/02/19 08:36 General appearance: Present: no acute distress Results - Labs CBC & Chem 7: 04/02/19 14:45 04/03/19 06:12 Labs: Laboratory Last Values WBC 21.1 K/mm3 (4.5-11.0) H 04/02/19 14:45 RBC 3.82 M/mm3 (3.65-5.03) 04/02/19 14:45 Hgb 11.2 gm/dl (11.8-15.2) L 04/02/19 14:45 Hct 35.1 % (35.5-45.6) L 04/02/19 14:45 MCV 92 fl (84-94) 04/02/19 14:45 MCH 29 pg (28-32) 04/02/19 14:45 MCHC 32 % (32-34) 04/02/19 14:45 RDW 16.4 % (13.2-15.2) H 04/02/19 14:45 Plt Count 135 K/mm3 (140-440) L 04/02/19 14:45 Lymph % (Auto) Sales Professional Bilingual 04/02/19 14:45 [place] % (Auto) Sales Professional Bilingual 04/02/19 14:45 Eos % (Auto) Sales Professional Bilingual 04/02/19 14:45 Baso % (Auto) Sales Professional Bilingual 04/02/19 14:45 Lymph # Sales Professional Bilingual 04/02/19 14:45 [place] # Sales Professional Bilingual 04/02/19 14:45 Eos # Sales Professional Bilingual 04/02/19 14:45 Baso # Sales Professional Bilingual 04/02/19 14:45 Seg Neutrophils % Sales Professional Bilingual 04/02/19 14:45 Seg Neutrophils # Sales Professional Bilingual 04/02/19 14:45 Sodium 130 mmol/L (137-145) L 04/02/19 16:20 Potassium 7.4 mmol/L (3.6-5.0) H* 04/02/19 16:20 Chloride 95.4 mmol/L (98-107) L 04/02/19 16:20 Carbon Dioxide 13 mmol/L (22-30) L 04/02/19 16:20 Anion Gap 29 mmol/L 04/02/19 16:20 BUN 95 mg/dL (9-20) H 04/02/19 16:20 Creatinine 15.9 mg/dL (0.8-1.5) H 04/02/19 16:20 Estimated GFR 4 ml/min 04/02/19 16:20 BUN/Creatinine Ratio 6 % 04/02/19 16:20 Glucose 101 mg/dL (75-100) H 04/02/19 16:20 POC Glucose 86 (70-105) 04/01/19 23:08 Calcium 8.1 mg/dL (8.4-10.2) L 04/02/19 16:20 Total Bilirubin 0.50 mg/dL (0.1-1.2) 04/01/19 21:26 AST 22 units/L (5-40) 04/01/19 21:26 ALT 16 units/L (7-56) 04/01/19 21:26 Alkaline Phosphatase 67 units/L (35-129) 04/01/19 21:26 Total Creatine Kinase 3017 units/L (55-170) H 04/02/19 07:05 CK-MB (CK-2) 14.2 ng/mL (0.0-4.0) H 04/02/19 07:05 CK-MB (CK-2) Rel Index 0.4 (0-4) 04/02/19 07:05 Troponin T 1.380 ng/mL (0.00-0.029) H* 04/02/19 07:05 NT-Pro-B Natriuret Pep > 87571 pg/mL (0-450) H 04/01/19 21:26 Total Protein 7.2 g/dL (6.3-8.2) 04/01/19 21:26 Albumin 2.8 g/dL (3.9-5) L 04/01/19 21:26 Albumin/Globulin Ratio 0.6 % 04/01/19 21:26 Triglycerides 55 mg/dL (2-149) 04/01/19 22:52 Cholesterol 145 mg/dL (50-199) 04/01/19 22:52 LDL Cholesterol Direct 86 mg/dL (50-130) 04/01/19 22:52 HDL Cholesterol 57 mg/dL (40-59) 04/01/19 22:52 Cholesterol/HDL Ratio 2.54 % 04/01/19 22:52 Hepatitis A IgM Ab Non-reactive (NonReactive) 04/01/19 22:47 Hep Bs Antigen Non-reactive (Negative) 04/01/19 22:47 Hep B Core IgM Ab Non-reactive (NonReactive) 04/01/19 22:47 Hepatitis C Antibody Non-reactive (NonReactive) 04/01/19 22:47 Active Medications - Current Medications Current Medications: Generic Name Dose Route Start Last Admin Trade Name Freq PRN Reason Stop Dose Admin Acetaminophen 650 mg 04/01/19 23:27 Tylenol PO Q4H PRN Pain MILD(1-3)/Fever >100.5/SWAIN Clonidine HCl 0.2 mg 04/02/19 10:00 04/02/19 09:15 Catapres PO 0.2 mg BID FOSTER Administration Enoxaparin Sodium 30 mg 04/02/19 10:00 04/02/19 09:15 Enoxaparin SUB-Q 30 mg QDAY FOSTER Administration Hydralazine HCl 5 mg 04/02/19 02:01 Apresoline IV Q6H PRN Hypertension Hydralazine HCl 100 mg 04/02/19 14:00 04/02/19 13:37 Apresoline PO Not Given TID FOSTER Sodium Chloride 100 mls @ 999 mls/hr 04/01/19 23:14 Nacl 0.9% IV JULIA PRN Hypotension Piperacillin Sod/Tazobactam Sod 2.25 gm in 50 mls @ 100 mls/hr 04/02/19 00:00 04/02/19 15:55 Zosyn/Ns 2.25 Gm/50ml IV 100 mls/hr Q8H FOSTER Administration Protocol Ondansetron HCl 4 mg 04/01/19 23:27 Zofran IV Q8H PRN Nausea And Vomiting Oxycodone/Acetaminophen 1 tab 04/01/19 23:27 04/02/19 17:40 Percocet 5/325 PO 1 tab Q6H PRN Administration Pain, Moderate (4-6) Sodium Chloride 10 ml 04/02/19 10:00 04/02/19 09:16 Sodium Chloride Flush Syringe 10 Ml IV 10 ml BID FOSTER Administration Sodium Chloride 10 ml 04/01/19 23:27 Sodium Chloride Flush Syringe 10 Ml IV PRN PRN LINE FLUSH Nutrition/Malnutrition Assess - Dietary Evaluation Nutrition/Malnutrition Findings: Nutrition Notes Start: 04/02/19 11:52 Freq: Status: Active Protocol: Document 04/02/19 11:52 RUFINO (Rec: 04/02/19 11:54 RUFINO [id number]) Co-Sign 04/02/19 11:52 KIMBERLY Nutrition Notes Need for Assessment generated from: home visitor Initial or Follow up Brief Note Subjective/Other Information RN screen for skin risk Pt Rito Score of 20 Nutrition Intervention Revisit per MD consult or patient Sign Off request:
[2019-04-02] MEDS ORDERED: DEXTROSE 50% IN WATER (25GM) 50 ML SYRINGE IV ONE (17:48)
[2019-04-02] MEDS ORDERED: INSULIN REGULAR, HUMAN 100 UNITS/1 ML IV ONE (17:48)
[2019-04-02] MEDS ORDERED: SODIUM POLYSTYRENE 15 GM/60 ML ORAL LIQD PO ONE (18:00)
[2019-04-02] MEDS ORDERED: CALCIUM GLUCONATE 2,000 MG in SODIUM CHLORIDE 0.9% 100 ML IV ONE (18:15)
[2019-04-02 18:48] LABS: Anisocytosis 1+; Basophils % (Manual) 0 % (0.0-1.8); Crenated RBC Few; Eosinophils % (Manual) 0 % (0.0-4.3); Large Platelets 1+; Ovalocytes 1+; Total Cells Counted 100
[2019-04-02 18:49] LABS: Platelet Estimate Consistent w Auto
[2019-04-02] MEDS: ALBUTEROL 2.5 MG/3 ML NEBU IH SCH (21:52)
[2019-04-03] MEDS: PIPERACIL-TAZO 2.25 GM/50 ML 2.25 GM/50 ML BAG IV SCH ×3 (00:30→17:37)
[2019-04-03] MEDS: ALBUTEROL 2.5 MG/3 ML NEBU IH SCH ×4 (02:01→23:30)
[2019-04-03] MEDS ORDERED: SODIUM POLYSTYRENE 15 GM/60 ML ORAL LIQD PO ONE (03:00)
[2019-04-03 06:56] LABS: Calcium 8.2 mg/dL (8.4-10.2)
[2019-04-03] MEDS: oxyCODONE /ACETAMINOPHEN 5-325MG TAB PO PRN ×2 (08:57→18:18)
[2019-04-03] MEDS: hydrALAZINE 100 MG TAB PO SCH ×4 (08:57→21:26)
[2019-04-03] MEDS ORDERED: SODIUM CHLORIDE 0.9% 100 ML IV PRN (09:00)
[2019-04-03] MEDS: cloNIDine 0.2 MG TAB PO SCH ×2 (09:00→21:26)
[2019-04-03] MEDS: ENOXAPARIN 30 MG/0.3 ML INJ SUB-Q SCH (09:01)
--- NOTE | 2019-04-03 10:37 | Progress Note ---
Assessment and Plan Generalized weakness Paroxysmal Afib previously on low dose eliquis for oral anticoagulation Hyperkalemia Chronic Ascites End-stage renal disease on hemodialysis Chronic systolic heart failure Nonischemic Cardiomyopathy EF 25-30% by echo 12/2018 no ischemia on MPI 12/2017 Hypertension Hypothyroidism Noncompliance Recommendations: Fluid/sodium restriction. Dialysis for fluid management. Medical management for paroxysmal atrial fibrillation and chronic systolic heart failure. Conservative cardiac management. Subjective Date of service: 04/03/19 Interval history: Seen in dialysis. No cardiac complaints. Objective Vital Signs Temp Pulse Pulse Resp Resp BP BP 04/03/19 10:00 04/03/19 09:00 80 168/75 04/03/19 08:55 98.2 F 80 18 168/75 04/03/19 08:30 95 H 18 04/03/19 05:07 99.3 F 77 18 154/70 04/03/19 04:13 99.6 F 72 19 203/102 04/03/19 04:00 81 04/02/19 23:59 99.6 F 81 18 196/87 04/02/19 21:53 04/02/19 21:52 104 H 18 04/02/19 20:00 81 04/02/19 19:39 98.4 F 18 164/66 04/02/19 16:25 98.1 F 18 150/79 04/02/19 12:56 98.0 F 18 149/71 04/02/19 12:00 88 Pulse Ox 04/03/19 10:00 93 04/03/19 09:00 04/03/19 08:55 94 04/03/19 08:30 04/03/19 05:07 93 04/03/19 04:13 94 04/03/19 04:00 04/02/19 23:59 86 04/02/19 21:53 93 04/02/19 21:52 04/02/19 20:00 92 04/02/19 19:39 04/02/19 16:25 04/02/19 12:56 04/02/19 12:00 - Physical Examination General: No Apparent Distress HEENT: Positive: PERRL Neck: Positive: trachea midline Cardiac: Positive: Reg Rate and Rhythm Lungs: Positive: Decreased Breath Sounds Neuro: Positive: Weakness Extremities: Present: edema - Labs and Meds CBC 11/05/19 Range/Units 14:45 WBC 21.1 H (4.5-11.0) K/mm3 RBC 3.82 (3.65-5.03) M/mm3 Hgb 11.2 L (11.8-15.2) gm/dl Hct 35.1 L (35.5-45.6) % Plt Count 135 L (140-440) K/mm3 Lymph # Production Assistant Meagher # Production Assistant Eos # Production Assistant Baso # Production Assistant Comprehensive Metabolic Panel 04/02/19 04/02/19 04/03/19 Range/Units 16:20 22:41 06:12 Sodium 130 L 137 D (137-145) mmol/L Potassium 7.4 H* 6.6 H* 6.4 H* (3.6-5.0) mmol/L Chloride 95.4 L 94.5 L (98-107) mmol/L Carbon Dioxide 13 L 19 L (22-30) mmol/L BUN 95 H 100 H (9-20) mg/dL Creatinine 15.9 H 16.8 H (0.8-1.5) mg/dL Glucose 101 H 100 (75-100) mg/dL Calcium 8.1 L 8.2 L (8.4-10.2) mg/dL
--- NOTE | 2019-04-03 11:30 | Vascular Lab Report ---
. DUPLEX DOPPLER LOWER EXTREMITY VEINS, LEFT INDICATION: swelling of the left leg. End-stage renal disease, hypertension, CHF, obesity. TECHNIQUE: Duplex doppler imaging was performed through the veins of the left lower extremity using venous compression and other maneuvers. COMPARISON: No relevant prior imaging study available. FINDINGS: Left Common femoral vein: Negative. Left Superficial femoral vein: Negative. Left Popliteal vein: Negative. Left Calf veins: Negative. Additional findings: There is nonspecific subcutaneous edema in the distal left lower extremity. IMPRESSION: No sonographic evidence for DVT in the left lower extremity. Signer Name: Lavelle Aaron Jr, MD Signed: 04/03/2019 11:26 AM Workstation Name: [id number]
--- NOTE | 2019-04-03 12:15 | Progress Note ---
Subjective Interval history: Patient was seen today for follow-up on multiple renal related issues Events of this hospitalization were noted Discussed with dialysis center yesterday, patient does not do his dialysis medication often times he will cut short his treatment Interdisciplinary notes were also reviewed Vitals intake output medications were reviewed Past medical history: Reviewed Family, social history: Reviewed Allergies: Reviewed Physical examination General: No acute distress Vitals: Reviewed HEENT: Oral mucosa moist no icterus Neck: Supple no thyromegaly nodular mass or JVD Chest: Clear to auscultation anteriorly Heart: Regular rate and rhythm S1-S2 heard no S3-S4 Abdomen: Soft nontender no suprapubic masses no organomegaly Extremity: Chronic changes of induration fluid overload, more than 2+ edema Psych: No evidence of any agitation and aggression noted Assessment and plan: End-stage renal disease: Patient will continue with hemodialysis will dialyze him for 4-1/2 hours possibly will need dialysis tomorrow again Hyperkalemia: Patient has not been doing his treatment in outpatient setting as well, hemodialysis as tolerated He may need another treatment tomorrow, depending on his labs, will also need his axis checked, will need vascular surgery evaluation Will need to monitor dialysis related labs His mortality risk is very very high he has been educated most of this is resulting from noncompliance Anemia and end-stage renal disease: To monitor and follow, erythropoietin as required goal hemoglobin dialysis patients usually occurring 10 and 12, we will follow Secondary hyperparathyroidism: Monitor phosphorus and PTH periodically and adjust binders as needed Diet and nutrition: Fluid restriction 1200 mL per day, high-protein diet may benefit from nutrition consultation , patient is protein intake should be 1.5 g per KG body weight Hypertension and volume continue to monitor, educated about fluid restriction sodium restriction Patient does exhibit good understanding of the renal related issues, All renal related issues were discussed with the patient, patient does exhibit good understanding, lab results were also discussed with patient in simple Italian Prognosis: Guarded We'll continue to follow and make recommendation from renal standpoint Objective - Vital Signs Vital signs: Vital Signs - 12hr 04/03/19 04/03/19 04/03/19 04:00 04:13 05:07 Temperature 99.6 F 99.3 F Pulse Rate 81 72 77 Pulse Rate [ Bilateral Throughout] Respiratory 19 18 Rate Respiratory Rate [Bilateral Throughout] Blood Pressure 203/102 154/70 Blood Pressure [Right] O2 Sat by Pulse 94 93 Oximetry 04/03/19 04/03/19 04/03/19 08:30 08:55 09:00 Temperature 98.2 F Pulse Rate 80 80 Pulse Rate [ 95 H Bilateral Throughout] Respiratory 18 Rate Respiratory 18 Rate [Bilateral Throughout] Blood Pressure 168/75 Blood Pressure 168/75 [Right] O2 Sat by Pulse 94 Oximetry 04/03/19 04/03/19 04/03/19 09:45 10:00 10:15 Temperature 98.5 F Pulse Rate 75 75 75 Pulse Rate [ Bilateral Throughout] Respiratory 16 Rate Respiratory Rate [Bilateral Throughout] Blood Pressure 168/75 168/75 161/78 Blood Pressure [Right] O2 Sat by Pulse 93 Oximetry 04/03/19 04/03/19 04/03/19 10:30 10:45 11:00 Temperature Pulse Rate 76 74 74 Pulse Rate [ Bilateral Throughout] Respiratory Rate Respiratory Rate [Bilateral Throughout] Blood Pressure 140/80 140/78 177/79 Blood Pressure [Right] O2 Sat by Pulse Oximetry 04/03/19 04/03/19 04/03/19 11:15 11:32 11:45 Temperature Pulse Rate 71 74 71 Pulse Rate [ Bilateral Throughout] Respiratory Rate Respiratory Rate [Bilateral Throughout] Blood Pressure 141/83 164/88 153/81 Blood Pressure [Right] O2 Sat by Pulse Oximetry - Lab 04/02/19 14:45 04/03/19 06:12 Most recent lab results Calcium 8.2 mg/dL (8.4-10.2) L 04/03/19 06:12 Medications & Allergies - Medications Allergies/Adverse Reactions: Allergies labetalol Allergy (Verified 10/16/18 15:22) Vomiting pt also reports drastic drop in HR polystyrene sulfonate [From Kayexalate] Allergy (Verified 10/16/18 13:24) Unknown tramadol [From Ultram] Adverse Reaction (Verified 03/05/18 15:30) Dizziness Home Medications: Home Medications Medication Instructions Recorded Confirmed Last Taken Type cloNIDine [Catapres] 0.2 mg PO BID #60 tablet 12/28/18 04/01/19 03/13/19 Rx oxyCODONE [roxiCODONE] 5 mg PO Q6HR PRN #20 tablet 12/28/18 04/01/19 03/13/19 Rx Active Medications: Generic Name Dose Route Start Last Admin Trade Name Freq PRN Reason Stop Dose Admin Acetaminophen 650 mg 04/01/19 23:27 Tylenol PO Q4H PRN Pain MILD(1-3)/Fever >100.5/SWAIN Albuterol 10 mg 04/02/19 18:00 04/03/19 07:57 Proventil IH 10 mg Q8HRT FOSTER Administration Clonidine HCl 0.2 mg 04/02/19 10:00 04/03/19 09:00 Catapres PO 0.2 mg BID FOSTER Administration Enoxaparin Sodium 30 mg 04/02/19 10:00 04/03/19 09:01 Enoxaparin SUB-Q Not Given QDAY FOSTER Hydralazine HCl 5 mg 04/02/19 02:01 04/03/19 04:22 Apresoline IV 5 mg Q6H PRN Administration Hypertension Hydralazine HCl 100 mg 04/02/19 14:00 04/03/19 09:00 Apresoline PO Not Given TID FOSTER Piperacillin Sod/Tazobactam Sod 2.25 gm in 50 mls @ 100 mls/hr 04/02/19 00:00 04/03/19 09:02 Zosyn/Ns 2.25 Gm/50ml IV 100 mls/hr Q8H FOSTER Administration Protocol Sodium Chloride 100 mls @ 999 mls/hr 04/03/19 09:00 Nacl 0.9% IV JULIA PRN Hypotension Ondansetron HCl 4 mg 04/01/19 23:27 Zofran IV Q8H PRN Nausea And Vomiting Oxycodone/Acetaminophen 1 tab 04/01/19 23:27 04/03/19 08:57 Percocet 5/325 PO 1 tab Q6H PRN Administration Pain, Moderate (4-6) Sodium Chloride 10 ml 04/02/19 10:00 04/03/19 09:01 Sodium Chloride Flush Syringe 10 Ml IV 10 ml BID FOSTER Administration Sodium Chloride 10 ml 04/01/19 23:27 Sodium Chloride Flush Syringe 10 Ml IV PRN PRN LINE FLUSH
--- NOTE | 2019-04-03 13:12 | Event Note ---
Date: 04/03/[address] Smith. There is concern about AV access malfunction given significant hyperkalemia. NPO after MN. Fistulogram tomorrow.
--- NOTE | 2019-04-03 13:54 | Progress Note ---
Assessment and Plan Assessment and plan: ESRD on hemodialysis severe hyperkalemia - Patient need 4 1/2 hours of HD - Discussed with nephrology and patient was non complaint with dialysis and if at all he has dialysis he usually cuts to 2 hrs - Yesterday patient told me he get dialysis in the morning which didn't happen - I had him treated with hyperkalemia cocktail and still and is hyperkalemic - We will have dialysis today, and tomorrow - will check BMP Left lower extremity cellulitis - Patient is on IV Zosyn - Discussed that WBCs trending up - ID consulted Dialysis noncompliance - Patient was counseled extensively Thrombocytopenia - Platelet count is 135, continue to monitor Paroxysmal A. fib, cardiomyopathy - Cardiology consulted management is per cardiology DVT prophylaxis - On low-dose Lovenox Disposition - Continue inpatient care Prognosis; poor. Patient's potassium is persistently high and he is at risk of cardiac complications. History Interval history: Patient was seen and evaluated this morning. Patient still complains pain in the left leg. Hospitalist Physical - Physical exam Narrative exam: Not in cardiopulmonary distress. The patient is obese. Vital signs as documented. Head exam is unremarkable. No scleral icterus . Neck is without jugular venous distension, thyromegaly, or carotid bruits. Lungs are clear to auscultation. Cardiac exam reveals regular rate and Rhythm. First and second heart sounds normal. No murmurs, rubs or gallops. Abdominal exam reveals clean dressing on the lower abdomen the site for paracentesis. Extremities bilateral leg swelling and induration of the left leg. ANTENNA ENGINEER: Alert and oriented 3. No focal weakness. - Constitutional Vitals: Temp Pulse Resp BP Pulse Ox 98.5 F 70 16 169/94 93 04/03/19 09:45 04/03/19 12:45 04/03/19 09:45 04/03/19 12:45 04/03/19 10:00 General appearance: Present: no acute distress Results - Labs CBC & Chem 7: 04/02/19 14:45 04/03/19 06:12 Labs: Laboratory Last Values WBC 21.1 K/mm3 (4.5-11.0) H 04/02/19 14:45 RBC 3.82 M/mm3 (3.65-5.03) 04/02/19 14:45 Hgb 11.2 gm/dl (11.8-15.2) L 04/02/19 14:45 Hct 35.1 % (35.5-45.6) L 04/02/19 14:45 MCV 92 fl (84-94) 04/02/19 14:45 MCH 29 pg (28-32) 04/02/19 14:45 MCHC 32 % (32-34) 04/02/19 14:45 RDW 16.4 % (13.2-15.2) H 04/02/19 14:45 Plt Count 135 K/mm3 (140-440) L 04/02/19 14:45 Lymph % (Auto) Meat Cutter 04/02/19 14:45 [place] % (Auto) Meat Cutter 04/02/19 14:45 Eos % (Auto) Meat Cutter 04/02/19 14:45 Baso % (Auto) Meat Cutter 04/02/19 14:45 Lymph # Meat Cutter 04/02/19 14:45 [place] # Meat Cutter 04/02/19 14:45 Eos # Meat Cutter 04/02/19 14:45 Baso # Meat Cutter 04/02/19 14:45 Add Manual Diff Complete 04/02/19 14:45 Total Counted 100 04/02/19 14:45 Seg Neutrophils % Meat Cutter 04/02/19 14:45 Seg Neuts % (Manual) 92.0 % (40.0-70.0) H 04/02/19 14:45 Band Neutrophils % 0 % 04/02/19 14:45 Lymphocytes % (Manual) 2.0 % (13.4-35.0) L 04/02/19 14:45 Reactive Lymphs % (Man) 0 % 04/02/19 14:45 Monocytes % (Manual) 6.0 % (0.0-7.3) 04/02/19 14:45 Eosinophils % (Manual) 0 % (0.0-4.3) 04/02/19 14:45 Basophils % (Manual) 0 % (0.0-1.8) 04/02/19 14:45 Metamyelocytes % 0 % 04/02/19 14:45 Myelocytes % 0 % 04/02/19 14:45 Promyelocytes % 0 % 04/02/19 14:45 Blast Cells % 0 % 04/02/19 14:45 Nucleated RBC % Not Reportable 04/02/19 14:45 Seg Neutrophils # Meat Cutter 04/02/19 14:45 Seg Neutrophils # Man 19.4 K/mm3 (1.8-7.7) H 04/02/19 14:45 Band Neutrophils # 0.0 K/mm3 04/02/19 14:45 Lymphocytes # (Manual) 0.4 K/mm3 (1.2-5.4) L 04/02/19 14:45 Abs React Lymphs (Man) 0.0 K/mm3 04/02/19 14:45 Monocytes # (Manual) 1.3 K/mm3 (0.0-0.8) H 04/02/19 14:45 Eosinophils # (Manual) 0.0 K/mm3 (0.0-0.4) 04/02/19 14:45 Basophils # (Manual) 0.0 K/mm3 (0.0-0.1) 04/02/19 14:45 Metamyelocytes # 0.0 K/mm3 04/02/19 14:45 Myelocytes # 0.0 K/mm3 04/02/19 14:45 Promyelocytes # 0.0 K/mm3 04/02/19 14:45 Blast Cells # 0.0 K/mm3 04/02/19 14:45 WBC Morphology Not Reportable 04/02/19 14:45 Hypersegmented Neuts Not Reportable 04/02/19 14:45 Hyposegmented Neuts Not Reportable 04/02/19 14:45 Hypogranular Neuts Not Reportable 04/02/19 14:45 Smudge Cells Not Reportable 04/02/19 14:45 Toxic Granulation Not Reportable 04/02/19 14:45 Toxic Vacuolation Not Reportable 04/02/19 14:45 Dohle Bodies Not Reportable 04/02/19 14:45 Pelger-Huet Anomaly Not Reportable 04/02/19 14:45 Vin Rods Not Reportable 04/02/19 14:45 Platelet Estimate Consistent w auto 04/02/19 14:45 Clumped Platelets Not Reportable 04/02/19 14:45 Plt Clumps, EDTA Not Reportable 04/02/19 14:45 Large Platelets 1+ 04/02/19 14:45 Giant Platelets Not Reportable 04/02/19 14:45 Platelet Satelliting Not Reportable 04/02/19 14:45 Plt Morphology Comment Not Reportable 04/02/19 14:45 RBC Morphology Not Reportable 04/02/19 14:45 Dimorphic RBCs Not Reportable 04/02/19 14:45 Polychromasia Not Reportable 04/02/19 14:45 Hypochromasia Not Reportable 04/02/19 14:45 Poikilocytosis Not Reportable 04/02/19 14:45 Anisocytosis 1+ 04/02/19 14:45 Microcytosis Not Reportable 04/02/19 14:45 Macrocytosis Not Reportable 04/02/19 14:45 Spherocytes Not Reportable 04/02/19 14:45 Pappenheimer Bodies Not Reportable 04/02/19 14:45 Sickle Cells Not Reportable 04/02/19 14:45 Target Cells Not Reportable 04/02/19 14:45 Tear Drop Cells Not Reportable 04/02/19 14:45 Ovalocytes 1+ 04/02/19 14:45 Helmet Cells Not Reportable 04/02/19 14:45 [place] Bodies Not Reportable 04/02/19 14:45 [place] Rings Not Reportable 04/02/19 14:45 [place] Cells Not Reportable 04/02/19 14:45 Bite Cells Not Reportable 04/02/19 14:45 Crenated Cell Few 04/02/19 14:45 Elliptocytes Not Reportable 04/02/19 14:45 Acanthocytes (Spur) Not Reportable 04/02/19 14:45 Rouleaux Not Reportable 04/02/19 14:45 Hemoglobin C Crystals Not Reportable 04/02/19 14:45 Schistocytes Not Reportable 04/02/19 14:45 Malaria parasites Not Reportable 04/02/19 14:45 Charbel Bodies Not Reportable 04/02/19 14:45 Hem Pathologist Commnt No 04/02/19 14:45 Sodium 137 mmol/L (137-145) D 04/03/19 06:12 Potassium 6.4 mmol/L (3.6-5.0) H* 04/03/19 06:12 Chloride 94.5 mmol/L (98-107) L 04/03/19 06:12 Carbon Dioxide 19 mmol/L (22-30) L 04/03/19 06:12 Anion Gap 30 mmol/L 04/03/19 06:12 BUN 100 mg/dL (9-20) H 04/03/19 06:12 Creatinine 16.8 mg/dL (0.8-1.5) H 04/03/19 06:12 Estimated GFR 4 ml/min 04/03/19 06:12 BUN/Creatinine Ratio 6 % 04/03/19 06:12 Glucose 100 mg/dL (75-100) 04/03/19 06:12 POC Glucose 86 (70-105) 04/01/19 23:08 Calcium 8.2 mg/dL (8.4-10.2) L 04/03/19 06:12 Total Bilirubin 0.50 mg/dL (0.1-1.2) 04/01/19 21:26 AST 22 units/L (5-40) 04/01/19 21:26 ALT 16 units/L (7-56) 04/01/19 21:26 Alkaline Phosphatase 67 units/L (35-129) 04/01/19 21:26 Total Creatine Kinase 3017 units/L (55-170) H 04/02/19 07:05 CK-MB (CK-2) 14.2 ng/mL (0.0-4.0) H 04/02/19 07:05 CK-MB (CK-2) Rel Index 0.4 (0-4) 04/02/19 07:05 Troponin T 1.380 ng/mL (0.00-0.029) H* 04/02/19 07:05 NT-Pro-B Natriuret Pep > 88182 pg/mL (0-450) H 04/01/19 21:26 Total Protein 7.2 g/dL (6.3-8.2) 04/01/19 21:26 Albumin 2.8 g/dL (3.9-5) L 04/01/19 21:26 Albumin/Globulin Ratio 0.6 % 04/01/19 21:26 Triglycerides 55 mg/dL (2-149) 04/01/19 22:52 Cholesterol 145 mg/dL (50-199) 04/01/19 22:52 LDL Cholesterol Direct 86 mg/dL (50-130) 04/01/19 22:52 HDL Cholesterol 57 mg/dL (40-59) 04/01/19 22:52 Cholesterol/HDL Ratio 2.54 % 04/01/19 22:52 Hepatitis A IgM Ab Non-reactive (NonReactive) 04/01/19 22:47 Hep Bs Antigen Non-reactive (Negative) 04/01/19 22:47 Hep B Core IgM Ab Non-reactive (NonReactive) 04/01/19 22:47 Hepatitis C Antibody Non-reactive (NonReactive) 04/01/19 22:47 Active Medications - Current Medications Current Medications: Generic Name Dose Route Start Last Admin Trade Name Freq PRN Reason Stop Dose Admin Acetaminophen 650 mg 04/01/19 23:27 Tylenol PO Q4H PRN Pain MILD(1-3)/Fever >100.5/SWAIN Albuterol 10 mg 04/02/19 18:00 04/03/19 07:57 Proventil IH 10 mg Q8HRT FOSTER Administration Clonidine HCl 0.2 mg 04/02/19 10:00 04/03/19 09:00 Catapres PO 0.2 mg BID FOSTER Administration Enoxaparin Sodium 30 mg 04/02/19 10:00 04/03/19 09:01 Enoxaparin SUB-Q Not Given QDAY FOSTER Hydralazine HCl 5 mg 04/02/19 02:01 04/03/19 04:22 Apresoline IV 5 mg Q6H PRN Administration Hypertension Hydralazine HCl 100 mg 04/02/19 14:00 04/03/19 09:00 Apresoline PO Not Given TID FOSTER Piperacillin Sod/Tazobactam Sod 2.25 gm in 50 mls @ 100 mls/hr 04/02/19 00:00 04/03/19 09:02 Zosyn/Ns 2.25 Gm/50ml IV 100 mls/hr Q8H FOSTER Administration Protocol Sodium Chloride 100 mls @ 999 mls/hr 04/03/19 09:00 Nacl 0.9% IV JULIA PRN Hypotension Ondansetron HCl 4 mg 04/01/19 23:27 Zofran IV Q8H PRN Nausea And Vomiting Oxycodone/Acetaminophen 1 tab 04/01/19 23:27 04/03/19 08:57 Percocet 5/325 PO 1 tab Q6H PRN Administration Pain, Moderate (4-6) Sodium Chloride 10 ml 04/02/19 10:00 04/03/19 09:01 Sodium Chloride Flush Syringe 10 Ml IV 10 ml BID FOSTER Administration Sodium Chloride 10 ml 04/01/19 23:27 Sodium Chloride Flush Syringe 10 Ml IV PRN PRN LINE FLUSH Nutrition/Malnutrition Assess - Dietary Evaluation Nutrition/Malnutrition Findings: Nutrition Notes Start: 04/02/19 11:52 Freq: Status: Active Protocol: Document 04/02/19 11:52 DW (Rec: 04/02/19 11:54 DW [id number]) Co-Sign 04/02/19 11:52 Nutrition Notes Need for Assessment generated from: paper maker Initial or Follow up Brief Note Subjective/Other Information RN screen for skin risk Pt Rito Score of 20 Nutrition Intervention Revisit per MD consult or patient Sign Off request:
[2019-04-03] MEDS ORDERED: MAGNESIUM HYDROXIDE (MOM) ORAL LIQD UDC PO PRN (15:38)
--- NOTE | 2019-04-03 16:47 | Consultation ---
History of Present Illness - Reason for Consult Consult date: 04/03/19 - History of Present Illness 48-year-old man with a past medical history of ESRD on HD, and chronic ascites for which she has a peritoneal drainage catheter. He also has significant cardiac medical history. Patient had a fall at home, and denied any loss of consciousness. He reports that his legs just gave out while at home without any forewarning. She had missed dialysis session last week, and is occasionally noncompliant with dialysis. e also notes that approximately 3 days prior to admission his left thigh was becoming more red and tender. He otherwise denies any fevers, sweats, chills. Denies any other symptoms at this time. Afebrile since admission with a white count of 21 currently receiving Zosyn. hasn't been obtained. he was previously admitted here and seen by our service for bilateral cellulitis, AT that time grew klebsiella on one leg and enterobacter on her left leg. there are plans for a fistulogram tomorrow. Imaging personally reviewed: CXR: cardiomegaly. Review of Systems: Bold if positive, otherwise negative General: fevers, chills, rigors HEENT: visual disturbance, diplopia, eye pain Respiratory: cough, sputum, hemoptysis, shortness of breath Cardiovascular: chest pain, syncope Gastrointestinal: nausea, vomiting, diarrhea, abdominal pain Genitourinary: dysuria, hematuria, flank pain Musculoskeletal: neck pain, back pain, joint pain, edema Neurologic: headaches, seizures Hematologic: easy bruising or bleeding Endocrine: night sweats, acute weight loss Skin: rash, jaundice, redness Psychiatric: suicidal, homicidal ideation Past History Past Medical History: arrhythmia, CAD, ESRD Past Surgical History: No surgical history Social history: denies: smoking, alcohol abuse Family history: diabetes, hypertension Medications and Allergies Allergies Allergy/AdvReac Type Severity Reaction Status Date / Time labetalol Allergy Vomiting Verified 10/16/18 15:22 polystyrene sulfonate Allergy Unknown Verified 10/16/18 13:24 [From Kayexalate] tramadol [From Ultram] AdvReac Dizziness Verified 03/05/18 15:30 Home Medications Medication Instructions Recorded Confirmed Last Taken Type cloNIDine [Catapres] 0.2 mg PO BID #60 tablet 12/28/18 04/01/19 03/13/19 Rx oxyCODONE [roxiCODONE] 5 mg PO Q6HR PRN #20 tablet 12/28/18 04/01/19 03/13/19 Rx Active Meds: Active Medications Acetaminophen (Tylenol) 650 mg PO Q4H PRN PRN Reason: Pain MILD(1-3)/Fever >100.5/SWAIN Albuterol (Proventil) 10 mg IH Q8HRT [facility] Last Admin: 04/03/19 15:07 Dose: 10 mg Documented by: Clonidine HCl (Catapres) 0.2 mg PO BID [facility] Last Admin: 04/03/19 09:00 Dose: 0.2 mg Documented by: Enoxaparin Sodium (Enoxaparin) 30 mg SUB-Q QDAY [facility] Last Admin: 04/03/19 09:01 Dose: Not Given Documented by: Hydralazine HCl (Apresoline) 5 mg IV Q6H PRN PRN Reason: Hypertension Last Admin: 04/03/19 04:22 Dose: 5 mg Documented by: Hydralazine HCl (Apresoline) 100 mg PO TID [facility] Last Admin: 04/03/19 15:35 Dose: 100 mg Documented by: Piperacillin Sod/Tazobactam Sod (Zosyn/Ns 2.25 Gm/50ml) 2.25 gm in 50 mls @ 100 mls/hr IV Q8H [facility]; Protocol Last Admin: 04/03/19 09:02 Dose: 100 mls/hr Documented by: Sodium Chloride (Nacl 0.9%) 100 mls @ 999 mls/hr IV JULIA PRN PRN Reason: Hypotension Magnesium Hydroxide (Milk Of Magnesia) 30 ml PO Q4H PRN PRN Reason: Constipation Ondansetron HCl (Zofran) 4 mg IV Q8H PRN PRN Reason: Nausea And Vomiting Oxycodone/Acetaminophen (Percocet 5/325) 1 tab PO Q6H PRN PRN Reason: Pain, Moderate (4-6) Last Admin: 04/03/19 08:57 Dose: 1 tab Documented by: Sodium Chloride (Sodium Chloride Flush Syringe 10 Ml) 10 ml IV BID [facility] Last Admin: 04/03/19 09:01 Dose: 10 ml Documented by: Sodium Chloride (Sodium Chloride Flush Syringe 10 Ml) 10 ml IV PRN PRN PRN Reason: LINE FLUSH Physical Examination - Physical Exam Narrative exam: Constitutional: Alert, cooperative. No acute distress Head, Ears, Nose: Normocephalic, atraumatic. External ears, nose normal Eyes: Conjunctivae/corneas clear. No icterus. No ptosis. Neck: Supple, no meningeal signs Oral: dentition fair, no thrush Cardiovascular: S1, S2 normal. Respiratory: Good air entry, clear to auscultation bilaterally GI: Soft, non-tender; bowel sounds normal. No peritoneal signs. Musculoskeletal: Left thigh redness with blanching Skin: No rash or abscess Hem/Lymphatic: No palpable cervical or supraclavicular nodes. No lymphangitis Psych: Mood ok. Affect normal Neurological: Awake, alert, oriented. No gross abnormality - Constitutional Vitals: Vital Signs Temp Pulse Resp BP Pulse Ox 97.2 F L 84 20 180/91 99 04/03/19 13:30 04/03/19 16:12 04/03/19 16:12 04/03/19 15:35 04/03/19 15:35 Temperature -Last 24 Hours Temperature 97.2 F Temperature 98.5 F Temperature 98.2 F Temperature 99.3 F Temperature 99.6 F Temperature 99.6 F Temperature 98.4 F Results - Labs CBC & Chem 7: 04/02/19 14:45 04/03/19 06:12 Labs: Abnormal lab results 04/02/19 04/02/19 04/02/19 Range/Units 14:45 16:20 22:41 Seg Neuts % (Manual) 92.0 H (40.0-70.0) % Lymphocytes % (Manual) 2.0 L (13.4-35.0) % Seg Neutrophils # Man 19.4 H (1.8-7.7) K/mm3 Lymphocytes # (Manual) 0.4 L (1.2-5.4) K/mm3 Monocytes # (Manual) 1.3 H (0.0-0.8) K/mm3 Sodium 130 L (137-145) mmol/L Potassium 7.4 H* 6.6 H* (3.6-5.0) mmol/L Chloride 95.4 L (98-107) mmol/L Carbon Dioxide 13 L (22-30) mmol/L BUN 95 H (9-20) mg/dL Creatinine 15.9 H (0.8-1.5) mg/dL Glucose 101 H (75-100) mg/dL Calcium 8.1 L (8.4-10.2) mg/dL 04/03/19 Range/Units 06:12 Seg Neuts % (Manual) (40.0-70.0) % Lymphocytes % (Manual) (13.4-35.0) % Seg Neutrophils # Man (1.8-7.7) K/mm3 Lymphocytes # (Manual) (1.2-5.4) K/mm3 Monocytes # (Manual) (0.0-0.8) K/mm3 Sodium (137-145) mmol/L Potassium 6.4 H* (3.6-5.0) mmol/L Chloride 94.5 L (98-107) mmol/L Carbon Dioxide 19 L (22-30) mmol/L BUN 100 H (9-20) mg/dL Creatinine 16.8 H (0.8-1.5) mg/dL Glucose (75-100) mg/dL Calcium 8.2 L (8.4-10.2) mg/dL Assessment and Plan Cultures: none obtained A/P: 48-year-old man with past medical history ESRD on HD, significant previous cardiac history aadmitted with a fall, found to have cellulitis 1. cellulitis of the left leg- ppatient with significant cadiovascular comties and skin changes, at high risk for recurrent cellulitis. We saw him in December of this year with cellulitis with cultures growing Enterobacter and Klebsiella. Given the previous presence of Enterobacter, would change therapy from Zosyn to cefepime has Enterobacter is an AMPC film reproducer. 2. ESRD on HD - renally dose antibiotics as appropriate Recs: - stop Zosyn - Start cefepime 2 g every 24 hours - start vancomycin dosed per pharmacy, goal trough 10-15 - ordered blood cultures given subjective chills and rigors. - Follow for improvement. Thank you for the consult, we will continue to follow. MD Manuel [facility] M: [phone] O: [phone] F: [phone]
[2019-04-03] MEDS ORDERED: CEFEPIME/NS 2 GM/100 ML 2 GM/100 ML BAG IV SCH (17:00)
[2019-04-03] MEDS ORDERED: VANCOMYCIN PHARMACY TO DOSE IV SCH (19:00)
[2019-04-03] MEDS ORDERED: VANCOMYCIN 2,000 MG in SODIUM CHLORIDE 0.9% 500 ML 500 ML IV ONE (20:00)
[2019-04-04] MEDS: hydrALAZINE 100 MG TAB PO SCH ×4 (05:37→21:47)
--- NOTE | 2019-04-04 08:36 | Progress Note ---
Subjective Interval history: Patient was seen today for follow-up on multiple renal related issues He is currently pending, fistulogram as he does have hyperkalemia and metabolic acidosis We wanted to make sure his access is working good More receptive to discussion today willing to go for dialysis again, today Has had hemodialysis yesterday Vitals intake output medications were reviewed Past medical history: Reviewed Family, social history: Reviewed Allergies: Reviewed Physical examination General: No acute distress Vitals: Reviewed HEENT: Oral mucosa moist no icterus Neck: Supple no thyromegaly nodular mass or JVD Chest: Clear to auscultation anteriorly Heart: Regular rate and rhythm S1-S2 heard no S3-S4 Abdomen: Soft nontender no suprapubic masses no organomegaly Extremity: Chronic changes of induration fluid overload, more than 2+ edema Psych: No evidence of any agitation and aggression noted Assessment and plan: End-stage renal disease: Patient will continue with hemodialysis, has had hemodialysis yesterday, will order for hemodialysis again today patient is agreeing to do dialysis, has evidence of anasarca chronic fluid retention ascites, severe hyperkalemia and metabolic acidosis He may require another dialysis treatment tomorrow as well Had a long discussion with patient today prior to the procedure, found out that patient has not been eating right, he is receptive to another for now. Follow her treatment today. He does understand now white treatments are required. I did spend a significant amount of time educating him counseling him about diet and lifestyle changes Hyperkalemia is resulting from, dietary noncompliance, missing dialysis treatment Anemia and end-stage renal disease: To monitor and follow, erythropoietin as required goal hemoglobin dialysis patients usually occurring 10 and 12, we will follow Secondary hyperparathyroidism: Monitor phosphorus and PTH periodically and adjust binders as needed Diet and nutrition: Fluid restriction 1200 mL per day, high-protein diet may benefit from nutrition consultation , patient is protein intake should be 1.5 g per KG body weight more than 35 minutes was spent today in direct patient care All renal related issues were discussed with the patient, patient does exhibit good understanding, lab results were also discussed with patient in simple [place] Prognosis: Guarded We'll continue to follow and make recommendation from renal standpoint Objective - Vital Signs Vital signs: Vital Signs - 12hr 04/03/19 04/04/19 04/04/19 21:26 00:07 00:12 Temperature 98.4 F Pulse Rate 82 81 Pulse Rate [ 84 Bilateral Throughout] Respiratory 24 Rate Respiratory 22 Rate [Bilateral Throughout] Blood Pressure 158/71 141/69 O2 Sat by Pulse 92 Oximetry 04/04/19 04/04/19 04:00 04:35 Temperature 97.8 F Pulse Rate 76 76 Pulse Rate [ Bilateral Throughout] Respiratory 18 Rate Respiratory Rate [Bilateral Throughout] Blood Pressure 152/83 O2 Sat by Pulse 95 Oximetry - Lab 04/04/19 18:21 04/04/19 18:21 Most recent lab results Calcium 8.2 mg/dL (8.4-10.2) L 04/03/19 06:12 Medications & Allergies - Medications Allergies/Adverse Reactions: Allergies labetalol Allergy (Verified 10/16/18 15:22) Vomiting pt also reports drastic drop in HR polystyrene sulfonate [From Kayexalate] Allergy (Verified 10/16/18 13:24) Unknown tramadol [From Ultram] Adverse Reaction (Verified 03/05/18 15:30) Dizziness Home Medications: Home Medications Medication Instructions Recorded Confirmed Last Taken Type cloNIDine [Catapres] 0.2 mg PO BID #60 tablet 12/28/18 04/01/19 03/13/19 Rx oxyCODONE [roxiCODONE] 5 mg PO Q6HR PRN #20 tablet 12/28/18 04/01/19 03/13/19 Rx Active Medications: Generic Name Dose Route Start Last Admin Trade Name Freq PRN Reason Stop Dose Admin Acetaminophen 650 mg 04/01/19 23:27 Tylenol PO Q4H PRN Pain MILD(1-3)/Fever >100.5/SWAIN Albuterol 10 mg 04/02/19 18:00 04/03/19 23:30 Proventil IH 10 mg Q8HRT FOSTER Administration Clonidine HCl 0.2 mg 04/02/19 10:00 04/03/19 21:26 Catapres PO 0.2 mg BID FOSTER Administration Enoxaparin Sodium 30 mg 04/02/19 10:00 04/03/19 09:01 Enoxaparin SUB-Q Not Given QDAY FOSTER Hydralazine HCl 5 mg 04/02/19 02:01 04/03/19 04:22 Apresoline IV 5 mg Q6H PRN Administration Hypertension Hydralazine HCl 100 mg 04/02/19 14:00 04/04/19 05:37 Apresoline PO Not Given TID FOSTER Sodium Chloride 100 mls @ 999 mls/hr 04/03/19 09:00 Nacl 0.9% IV JULIA PRN Hypotension Cefepime HCl 2 gm in 100 mls @ 200 mls/hr 04/03/19 17:00 04/03/19 18:11 Cefepime/Ns 2 Gm/100 Ml IV 200 mls/hr Q24H FOSTER Administration Protocol Magnesium Hydroxide 30 ml 04/03/19 15:38 04/03/19 18:11 Milk Of Magnesia PO 30 ml Q4H PRN Administration Constipation Ondansetron HCl 4 mg 04/01/19 23:27 Zofran IV Q8H PRN Nausea And Vomiting Oxycodone/Acetaminophen 1 tab 04/01/19 23:27 04/03/19 18:18 Percocet 5/325 PO 1 tab Q6H PRN Administration Pain, Moderate (4-6) Sodium Chloride 10 ml 04/02/19 10:00 04/03/19 21:27 Sodium Chloride Flush Syringe 10 Ml IV 10 ml BID FOSTER Administration Sodium Chloride 10 ml 04/01/19 23:27 Sodium Chloride Flush Syringe 10 Ml IV PRN PRN LINE FLUSH
[2019-04-04] MEDS: ALBUTEROL 2.5 MG/3 ML NEBU IH SCH ×2 (08:49→17:21)
[2019-04-04] MEDS ORDERED: SODIUM CHLORIDE 0.9% 100 ML IV PRN (09:00)
[2019-04-04] MEDS ORDERED: HEPARIN 10,000 UNITS/10 ML VIAL ONE (09:03)
[2019-04-04] MEDS ORDERED: LIDOCAINE (2%) 20 MG/1 ML VIAL 20 ML MDV INFILTRATI ONE (09:03)
[2019-04-04] MEDS: HEPARIN/NS 5000 UNIT/500ML 500 ML IR ONE ×2 (10:05→10:10)
[2019-04-04] MEDS: SODIUM CHLORIDE 0.9% 500 ML 500 ML ONE ×2 (10:05→10:10)
[2019-04-04] MEDS: fentaNYL 100 MCG/2 ML INJ ONE ×2 (10:08→10:09)
[2019-04-04] MEDS: MIDAZOLAM 2 MG/2 ML INJ ONE ×2 (10:08→10:09)
--- NOTE | 2019-04-04 11:39 | Post Operative Note ---
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
--- NOTE | 2019-04-04 11:50 | Progress Note ---
Assessment and Plan Generalized weakness Left arm AV graft malfunction Paroxysmal Afib previously on low dose eliquis for oral anticoagulation Hyperkalemia -resolved Chronic Ascites End-stage renal disease on hemodialysis Chronic systolic heart failure Nonischemic Cardiomyopathy EF 25-30% by echo 12/2018 no ischemia on MPI 12/2017 Hypertension Hypothyroidism Medical noncompliance Recommendations: Fluid/sodium restriction. Dialysis for fluid management. Medical management for paroxysmal atrial fibrillation and chronic systolic heart failure. Conservative cardiac management. Subjective Date of service: 04/04/19 Interval history: No cardiac complaints. For left AV arm fistulogram today. Sinus rhythm on telemetry monitoring. Objective Vital Signs Temp Pulse Pulse Resp Resp BP BP 04/04/19 11:29 75 20 150/80 04/04/19 11:15 76 15 147/83 04/04/19 11:01 72 14 158/80 04/04/19 04:35 97.8 F 76 18 152/83 04/04/19 04:00 76 04/04/19 00:12 84 22 04/04/19 00:07 98.4 F 81 24 141/69 04/03/19 21:26 82 158/71 04/03/19 19:51 98.3 F 82 20 158/71 04/03/19 17:10 98.0 F 18 147/69 04/03/19 16:12 84 20 04/03/19 15:35 78 18 180/91 04/03/19 13:30 97.2 F L 73 18 172/91 04/03/19 13:15 75 176/93 04/03/19 13:00 72 157/91 04/03/19 12:45 70 169/94 04/03/19 12:30 72 157/91 04/03/19 12:15 70 155/80 04/03/19 12:00 69 150/83 Pulse Ox 04/04/19 11:29 97 04/04/19 11:15 97 04/04/19 11:01 97 04/04/19 04:35 95 04/04/19 04:00 04/04/19 00:12 04/04/19 00:07 92 04/03/19 21:26 04/03/19 19:51 90 04/03/19 17:10 04/03/19 16:12 04/03/19 15:35 99 04/03/19 13:30 04/03/19 13:15 04/03/19 13:00 04/03/19 12:45 04/03/19 12:30 04/03/19 12:15 04/03/19 12:00 - Physical Examination General: No Apparent Distress HEENT: Positive: PERRL Neck: Positive: trachea midline Cardiac: Positive: Reg Rate and Rhythm Lungs: Positive: Decreased Breath Sounds Neuro: Positive: Weakness Extremities: Present: edema
--- NOTE | 2019-04-04 11:54 | Progress Note ---
Assessment and Plan Cultures: 04/04 blood cultures - NGTD A/P: 48-year-old man with past medical history ESRD on HD, significant previous cardiac history aadmitted with a fall, found to have cellulitis 1. cellulitis of the left leg- patient with significant cadiovascular comties and skin changes, at high risk for recurrent cellulitis. We saw him in December of this year with cellulitis with cultures growing Enterobacter and Klebsiella. 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 2. ESRD on HD - renally dose antibiotics as appropriate Recs: - Continue cefepime 2 g every 24 hours - Continue vancomycin dosed per pharmacy, goal trough 10-15 - follow up blood cultures - Follow for improvement. Thank you for the consult, we will continue to follow. Dale Costa MD [facility] ([facility]) M: [phone] O: [phone] F: [phone] Subjective Date of service: 04/04/19 Interval history: Afebrile, ongoing pain. Objective - Exam Narrative Exam: Constitutional: Alert, cooperative. No acute distress Head, Ears, Nose: Normocephalic, atraumatic. External ears, nose normal Eyes: Conjunctivae/corneas clear. No icterus. No ptosis. Neck: Supple, no meningeal signs Oral: dentition fair, no thrush Cardiovascular: S1, S2 normal. Respiratory: Good air entry, clear to auscultation bilaterally GI: Soft, non-tender; bowel sounds normal. No peritoneal signs. Musculoskeletal: Left leg redness with blanching, swelling Skin: No rash or abscess Hem/Lymphatic: No palpable cervical or supraclavicular nodes. No lymphangitis Psych: Mood ok. Affect normal Neurological: Awake, alert, oriented. No gross abnormality - Constitutional Vitals: Vital Signs Temp Pulse Resp BP Pulse Ox 97.8 F 75 20 150/80 97 04/04/19 04:35 04/04/19 11:29 04/04/19 11:29 04/04/19 11:29 04/04/19 11:29 Temperature -Last 24 Hours Temperature 97.8 F Temperature 98.4 F Temperature 98.3 F Temperature 98.0 F Temperature 97.2 F - Labs CBC & Chem 7: 04/02/19 14:45 04/03/19 06:12
[2019-04-04] MEDS: cloNIDine 0.2 MG TAB PO SCH ×2 (12:22→21:47)
[2019-04-04] MEDS: ENOXAPARIN 30 MG/0.3 ML INJ SUB-Q SCH (12:22)
--- NOTE | 2019-04-04 12:47 | Operative Report ---
STAFF SURGEON: Dr. Dusty Bach. PREOPERATIVE DIAGNOSIS: End-stage renal disease. POSTOPERATIVE DIAGNOSIS: End-stage renal disease. PROCEDURE PERFORMED: Left arm fistulogram and angioplasty. COMPLICATIONS: None. ESTIMATED BLOOD LOSS: Less than 10 mL. ANESTHESIA: Local MAC. ANGIOGRAPHIC FINDINGS: There was an 80% stenosis noted in the body of the AV fistula. There was no central venous stenosis, no stenosis noted at the arterial anastomosis and aneurysmal degeneration was noted in the body of the AV fistula. INDICATIONS FOR PROCEDURE: This is a 48-year-old gentleman with end-stage renal disease, on hemodialysis via left arm brachiobasilic AV fistula, who has been having issues with poor clearance. Therefore, a vascular consultation was obtained for evaluation and possible intervention. The patient was explained the risks, benefits and alternatives of procedure, expressed understanding and wished to proceed. DESCRIPTION OF PROCEDURE: After appropriate consent was obtained, the patient was brought back to the clinical laboratory medical director, placed on table in supine position with the left arm extended. Left arm was prepped and draped in the usual sterile fashion with ChloraPrep. Appropriate timeout was performed, indicating correct the patient, procedure and site of procedure. I then began the intervention by obtaining percutaneous access of the AV fistula using micropuncture technique. Once we obtained access, needle was exchanged for a micropuncture sheath. We then proceeded to perform a series of diagnostic imaging of the left upper extremity, which demonstrated the findings noted above. With these findings, the micropuncture sheath was then exchanged for a 6-Wolof sheath over a Bentson wire. A combination of Bentson wire and angled catheter were then navigated past the lesion of interest. The catheter was removed and then initially an 8 mm x 4 cm Allison balloon was placed across the lesion and insufflated the profile and held for approximately 2 minutes 30 seconds. This was then taken down. A completion angio was performed, which demonstrated still some significant residual stenosis, such that then a 10 mm Allison balloon was then brought on the field and again placed across the lesion, insufflated the profile and held for approximately 2 minutes. This was then taken down and removed. The completion angio was performed, which demonstrated a less than 20% residual stenosis. We then proceeded to remove the wire and the sheath. Digital compression was held at the access site for hemostasis. Once we were satisfied with hemostasis, appropriate dressing was placed. The patient tolerated the procedure well, emerged from the conscious sedation and was sent to recovery in stable condition. JOB# [id number] VCN/NTS
[2019-04-04] MEDS ORDERED: SODIUM CHLORIDE*PRIMING MACHINE ONLY FOR DIALYSIS MC ONE (13:07)
--- NOTE | 2019-04-04 15:45 | Progress Note ---
Assessment and Plan Assessment and plan: ESRD on hemodialysis severe hyperkalemia - Patient dialyzed for 3 hrs yesterday - Potassium was high yesterday, CBC and BMP was not done this morning because patient went to vascular procedure to check his dialysis access - Currently in dialysis Left lower extremity cellulitis - ID consult appreciated Dialysis noncompliance - Patient was counseled extensively Thrombocytopenia - Platelet count is 135, continue to monitor Paroxysmal A. fib, cardiomyopathy - Cardiology consulted management is per cardiology DVT prophylaxis - On low-dose Lovenox Disposition - Continue inpatient care Prognosis; poor. Patient's potassium is persistently high and he is at risk of cardiac complications. History Interval history: Patient was seen and evaluated this morning. Patient still complains pain in the left leg. Hospitalist Physical - Physical exam Narrative exam: Not in cardiopulmonary distress. The patient is obese. Vital signs as documented. Head exam is unremarkable. No scleral icterus . Neck is without jugular venous distension, thyromegaly, or carotid bruits. Lungs are clear to auscultation. Cardiac exam reveals regular rate and Rhythm. First and second heart sounds normal. No murmurs, rubs or gallops. Abdominal exam reveals clean dressing on the lower abdomen the site for paracentesis. Extremities bilateral leg swelling and induration of the left leg. IMAGE ARCHIVIST: Alert and oriented 3. No focal weakness. - Constitutional Vitals: Temp Pulse Resp BP Pulse Ox 98.2 F 81 20 141/76 95 04/04/19 11:45 04/04/19 14:00 04/04/19 11:45 04/04/19 14:00 04/04/19 11:45 General appearance: Present: no acute distress Results - Labs CBC & Chem 7: 04/02/19 14:45 04/03/19 06:12 Labs: Laboratory Last Values WBC 21.1 K/mm3 (4.5-11.0) H 04/02/19 14:45 RBC 3.82 M/mm3 (3.65-5.03) 04/02/19 14:45 Hgb 11.2 gm/dl (11.8-15.2) L 04/02/19 14:45 Hct 35.1 % (35.5-45.6) L 04/02/19 14:45 MCV 92 fl (84-94) 04/02/19 14:45 MCH 29 pg (28-32) 04/02/19 14:45 MCHC 32 % (32-34) 04/02/19 14:45 RDW 16.4 % (13.2-15.2) H 04/02/19 14:45 Plt Count 135 K/mm3 (140-440) L 04/02/19 14:45 Lymph % (Auto) Floor Sanding Machine Operator 04/02/19 14:45 [place] % (Auto) Floor Sanding Machine Operator 04/02/19 14:45 Eos % (Auto) Floor Sanding Machine Operator 04/02/19 14:45 Baso % (Auto) Floor Sanding Machine Operator 04/02/19 14:45 Lymph # Floor Sanding Machine Operator 04/02/19 14:45 [place] # Floor Sanding Machine Operator 04/02/19 14:45 Eos # Floor Sanding Machine Operator 04/02/19 14:45 Baso # Floor Sanding Machine Operator 04/02/19 14:45 Add Manual Diff Complete 04/02/19 14:45 Total Counted 100 04/02/19 14:45 Seg Neutrophils % Floor Sanding Machine Operator 04/02/19 14:45 Seg Neuts % (Manual) 92.0 % (40.0-70.0) H 04/02/19 14:45 Band Neutrophils % 0 % 04/02/19 14:45 Lymphocytes % (Manual) 2.0 % (13.4-35.0) L 04/02/19 14:45 Reactive Lymphs % (Man) 0 % 04/02/19 14:45 Monocytes % (Manual) 6.0 % (0.0-7.3) 04/02/19 14:45 Eosinophils % (Manual) 0 % (0.0-4.3) 04/02/19 14:45 Basophils % (Manual) 0 % (0.0-1.8) 04/02/19 14:45 Metamyelocytes % 0 % 04/02/19 14:45 Myelocytes % 0 % 04/02/19 14:45 Promyelocytes % 0 % 04/02/19 14:45 Blast Cells % 0 % 04/02/19 14:45 Nucleated RBC % Not Reportable 04/02/19 14:45 Seg Neutrophils # Floor Sanding Machine Operator 04/02/19 14:45 Seg Neutrophils # Man 19.4 K/mm3 (1.8-7.7) H 04/02/19 14:45 Band Neutrophils # 0.0 K/mm3 04/02/19 14:45 Lymphocytes # (Manual) 0.4 K/mm3 (1.2-5.4) L 04/02/19 14:45 Abs React Lymphs (Man) 0.0 K/mm3 04/02/19 14:45 Monocytes # (Manual) 1.3 K/mm3 (0.0-0.8) H 04/02/19 14:45 Eosinophils # (Manual) 0.0 K/mm3 (0.0-0.4) 04/02/19 14:45 Basophils # (Manual) 0.0 K/mm3 (0.0-0.1) 04/02/19 14:45 Metamyelocytes # 0.0 K/mm3 04/02/19 14:45 Myelocytes # 0.0 K/mm3 04/02/19 14:45 Promyelocytes # 0.0 K/mm3 04/02/19 14:45 Blast Cells # 0.0 K/mm3 04/02/19 14:45 WBC Morphology Not Reportable 04/02/19 14:45 Hypersegmented Neuts Not Reportable 04/02/19 14:45 Hyposegmented Neuts Not Reportable 04/02/19 14:45 Hypogranular Neuts Not Reportable 04/02/19 14:45 Smudge Cells Not Reportable 04/02/19 14:45 Toxic Granulation Not Reportable 04/02/19 14:45 Toxic Vacuolation Not Reportable 04/02/19 14:45 Dohle Bodies Not Reportable 04/02/19 14:45 Pelger-Huet Anomaly Not Reportable 04/02/19 14:45 Vin Rods Not Reportable 04/02/19 14:45 Platelet Estimate Consistent w auto 04/02/19 14:45 Clumped Platelets Not Reportable 04/02/19 14:45 Plt Clumps, EDTA Not Reportable 04/02/19 14:45 Large Platelets 1+ 04/02/19 14:45 Giant Platelets Not Reportable 04/02/19 14:45 Platelet Satelliting Not Reportable 04/02/19 14:45 Plt Morphology Comment Not Reportable 04/02/19 14:45 RBC Morphology Not Reportable 04/02/19 14:45 Dimorphic RBCs Not Reportable 04/02/19 14:45 Polychromasia Not Reportable 04/02/19 14:45 Hypochromasia Not Reportable 04/02/19 14:45 Poikilocytosis Not Reportable 04/02/19 14:45 Anisocytosis 1+ 04/02/19 14:45 Microcytosis Not Reportable 04/02/19 14:45 Macrocytosis Not Reportable 04/02/19 14:45 Spherocytes Not Reportable 04/02/19 14:45 Pappenheimer Bodies Not Reportable 04/02/19 14:45 Sickle Cells Not Reportable 04/02/19 14:45 Target Cells Not Reportable 04/02/19 14:45 Tear Drop Cells Not Reportable 04/02/19 14:45 Ovalocytes 1+ 04/02/19 14:45 Helmet Cells Not Reportable 04/02/19 14:45 [place] Bodies Not Reportable 04/02/19 14:45 [place] Rings Not Reportable 04/02/19 14:45 [place] Cells Not Reportable 04/02/19 14:45 Bite Cells Not Reportable 04/02/19 14:45 Crenated Cell Few 04/02/19 14:45 Elliptocytes Not Reportable 04/02/19 14:45 Acanthocytes (Spur) Not Reportable 04/02/19 14:45 Rouleaux Not Reportable 04/02/19 14:45 Hemoglobin C Crystals Not Reportable 04/02/19 14:45 Schistocytes Not Reportable 04/02/19 14:45 Malaria parasites Not Reportable 04/02/19 14:45 Charbel Bodies Not Reportable 04/02/19 14:45 Hem Pathologist Commnt No 04/02/19 14:45 Sodium 137 mmol/L (137-145) D 04/03/19 06:12 Potassium 6.4 mmol/L (3.6-5.0) H* 04/03/19 06:12 Chloride 94.5 mmol/L (98-107) L 04/03/19 06:12 Carbon Dioxide 19 mmol/L (22-30) L 04/03/19 06:12 Anion Gap 30 mmol/L 04/03/19 06:12 BUN 100 mg/dL (9-20) H 04/03/19 06:12 Creatinine 16.8 mg/dL (0.8-1.5) H 04/03/19 06:12 Estimated GFR 4 ml/min 04/03/19 06:12 BUN/Creatinine Ratio 6 % 04/03/19 06:12 Glucose 100 mg/dL (75-100) 04/03/19 06:12 POC Glucose 86 (70-105) 04/01/19 23:08 Calcium 8.2 mg/dL (8.4-10.2) L 04/03/19 06:12 Total Bilirubin 0.50 mg/dL (0.1-1.2) 04/01/19 21:26 AST 22 units/L (5-40) 04/01/19 21:26 ALT 16 units/L (7-56) 04/01/19 21:26 Alkaline Phosphatase 67 units/L (35-129) 04/01/19 21:26 Total Creatine Kinase 3017 units/L (55-170) H 04/02/19 07:05 CK-MB (CK-2) 14.2 ng/mL (0.0-4.0) H 04/02/19 07:05 CK-MB (CK-2) Rel Index 0.4 (0-4) 04/02/19 07:05 Troponin T 1.380 ng/mL (0.00-0.029) H* 04/02/19 07:05 NT-Pro-B Natriuret Pep > 92115 pg/mL (0-450) H 04/01/19 21:26 Total Protein 7.2 g/dL (6.3-8.2) 04/01/19 21:26 Albumin 2.8 g/dL (3.9-5) L 04/01/19 21:26 Albumin/Globulin Ratio 0.6 % 04/01/19 21:26 Triglycerides 55 mg/dL (2-149) 04/01/19 22:52 Cholesterol 145 mg/dL (50-199) 04/01/19 22:52 LDL Cholesterol Direct 86 mg/dL (50-130) 04/01/19 22:52 HDL Cholesterol 57 mg/dL (40-59) 04/01/19 22:52 Cholesterol/HDL Ratio 2.54 % 04/01/19 22:52 Hepatitis A IgM Ab Non-reactive (NonReactive) 04/01/19 22:47 Hep Bs Antigen Non-reactive (Negative) 04/01/19 22:47 Hep B Core IgM Ab Non-reactive (NonReactive) 04/01/19 22:47 Hepatitis C Antibody Non-reactive (NonReactive) 04/01/19 22:47 Active Medications - Current Medications Current Medications: Generic Name Dose Route Start Last Admin Trade Name Freq PRN Reason Stop Dose Admin Acetaminophen 650 mg 04/01/19 23:27 Tylenol PO Q4H PRN Pain MILD(1-3)/Fever >100.5/SWAIN Albuterol 10 mg 04/02/19 18:00 04/04/19 08:49 Proventil IH Not Given Q8HRT [facility] Clonidine HCl 0.2 mg 04/02/19 10:00 04/04/19 12:22 Catapres PO Not Given BID FOSTER Enoxaparin Sodium 30 mg 04/02/19 10:00 04/04/19 12:22 Enoxaparin SUB-Q Not Given QDAY [facility] Hydralazine HCl 5 mg 04/02/19 02:01 04/03/19 04:22 Apresoline IV 5 mg Q6H PRN Administration Hypertension Hydralazine HCl 100 mg 04/02/19 14:00 04/04/19 13:25 Apresoline PO Not Given TID [facility] Sodium Chloride 100 mls @ 999 mls/hr 04/04/19 09:00 Nacl 0.9% IV JULIA PRN Hypotension Cefepime HCl 1 gm in 100 mls @ 200 mls/hr 04/04/19 18:00 Cefepime/Ns 1 Gm/100 Ml IV QPM FOSTER Magnesium Hydroxide 30 ml 04/03/19 15:38 04/03/19 18:11 Milk Of Magnesia PO 30 ml Q4H PRN Administration Constipation Ondansetron HCl 4 mg 04/01/19 23:27 Zofran IV Q8H PRN Nausea And Vomiting Oxycodone/Acetaminophen 1 tab 04/01/19 23:27 04/03/19 18:18 Percocet 5/325 PO 1 tab Q6H PRN Administration Pain, Moderate (4-6) Sodium Chloride 10 ml 04/02/19 10:00 04/04/19 12:23 Sodium Chloride Flush Syringe 10 Ml IV Not Given BID FOSTER Sodium Chloride 10 ml 04/01/19 23:27 Sodium Chloride Flush Syringe 10 Ml IV PRN PRN LINE FLUSH Nutrition/Malnutrition Assess - Dietary Evaluation Nutrition/Malnutrition Findings: Nutrition Notes Start: 04/02/19 11:52 Freq: Status: Active Protocol: Document 04/02/19 11:52 DW (Rec: 04/02/19 11:54 DW [id number]) Co-Sign 04/02/19 11:52 KH Nutrition Notes Need for Assessment generated from: numerical control machine operator Initial or Follow up Brief Note Subjective/Other Information RN screen for skin risk Pt Rito Score of 20 Nutrition Intervention Revisit per MD consult or patient Sign Off request:
[2019-04-04] MEDS: oxyCODONE /ACETAMINOPHEN 5-325MG TAB PO PRN (17:30)
[2019-04-04] MEDS ORDERED: CEFEPIME/NS 1 GM/100 ML 1 GM/100 ML BAG IV SCH (18:00)
[2019-04-04 18:46] LABS: Basophils % (Auto) 0.2 % (0.0-1.8); Eosinophils # (Auto) 0.1 K/mm3 (0.0-0.4); Eosinophils % (Auto) 0.8 % (0.0-4.3); Hematocrit 36.6 % (35.5-45.6); Hemoglobin 11.6 gm/dl (11.8-15.2); Lymphocytes # (Auto) 0.3 K/mm3 (1.2-5.4); Lymphocytes % (Auto) 2.2 % (13.4-35.0); Mean Corpuscular HGB Conc 32 % (32-34); Mean Corpuscular Volume 92 fl (84-94); Monocytes # (Auto) 1.4 K/mm3 (0.0-0.8); Monocytes % (Auto) 10.4 % (0.0-7.3); Platelet Count 166 K/mm3 (140-440); Red Blood Count 3.98 M/mm3 (3.65-5.03); Red Cell Distribution Width 16.4 % (13.2-15.2)
[2019-04-04 18:55] LABS: Calcium 8.2 mg/dL (8.4-10.2)
[2019-04-04] MEDS ORDERED: ALBUTEROL 2.5 MG/3 ML NEBU IH PRN (21:56)
[2019-04-05] MEDS: oxyCODONE /ACETAMINOPHEN 5-325MG TAB PO PRN (01:32)
[2019-04-05 05:58] LABS: Basophils % (Auto) 0.4 % (0.0-1.8); Eosinophils # (Auto) 0.1 K/mm3 (0.0-0.4); Eosinophils % (Auto) 0.8 % (0.0-4.3); Hematocrit 32.9 % (35.5-45.6); Hemoglobin 10.6 gm/dl (11.8-15.2); Lymphocytes # (Auto) 0.5 K/mm3 (1.2-5.4); Lymphocytes % (Auto) 3.5 % (13.4-35.0); Mean Corpuscular HGB Conc 32 % (32-34); Mean Corpuscular Volume 91 fl (84-94); Monocytes # (Auto) 1.8 K/mm3 (0.0-0.8); Monocytes % (Auto) 13.6 % (0.0-7.3); Platelet Count 165 K/mm3 (140-440); Red Blood Count 3.63 M/mm3 (3.65-5.03); Red Cell Distribution Width 16.1 % (13.2-15.2)
--- NOTE | 2019-04-05 08:27 | Progress Note ---
Assessment and Plan Assessment: * End-stage renal disease * Malfunctioning AVF --Fistulogram w/ angioplasty (Apr 04) * Hyperkalemia - resolved * Cardiomyopathy - TTE: EF 25-30% (Dec 2018) * Atrial fibrillation * Metabolic acidosis * Left LE cellulitis * Abdominal ascites * [place] * Anemia secondary to ESRD * Secondary hyperparathyroidism * Medical nonocompliance Plan: * Continue with hemodialysis TTS; an additional hemodialysis treatment was offered by patient declined * UF as tolerated * Abx per primary team - Blood cx NGTD (Apr 04) * Cardiology recommendations reviewed * Epogen TIW prn * Renal diet * Binders with meals Subjective Date of service: 04/05/19 Interval history: Patient reports leg swelling is better. Denies SOB. Objective - Vital Signs Vital signs: Vital Signs - 12hr 04/04/19 04/05/19 04/05/19 23:27 03:39 04:26 Temperature 98.6 F 98.7 F Pulse Rate 76 74 72 Respiratory 20 16 Rate Blood Pressure 149/73 149/78 O2 Sat by Pulse 88 90 Oximetry 04/05/19 08:06 Temperature 98.0 F Pulse Rate 71 Respiratory 18 Rate Blood Pressure 162/78 O2 Sat by Pulse 95 Oximetry - General Appearance General appearance: well-developed, well-nourished EENT: ATNC Respiratory: Present: Decreased Breath Sounds Cardiology: regular, S1S2 Gastrointestinal: no tenderness, distended Neurologic: no focal deficit Musculoskeletal: other (2-3+ pedal edema) - Lab 04/05/19 05:16 04/04/19 18:21 Most recent lab results Calcium 8.2 mg/dL (8.4-10.2) L 04/04/19 18:21 Medications & Allergies - Medications Allergies/Adverse Reactions: Allergies labetalol Allergy (Verified 10/16/18 15:22) Vomiting pt also reports drastic drop in HR polystyrene sulfonate [From Kayexalate] Allergy (Verified 10/16/18 13:24) Unknown tramadol [From Ultram] Adverse Reaction (Verified 03/05/18 15:30) Dizziness Home Medications: Home Medications Medication Instructions Recorded Confirmed Last Taken Type cloNIDine [Catapres] 0.2 mg PO BID #60 tablet 12/28/18 04/01/19 03/13/19 Rx oxyCODONE [roxiCODONE] 5 mg PO Q6HR PRN #20 tablet 12/28/18 04/01/19 03/13/19 Rx Active Medications: Generic Name Dose Route Start Last Admin Trade Name Raven PRN Reason Stop Dose Admin Acetaminophen 650 mg 04/01/19 23:27 Tylenol PO Q4H PRN Pain MILD(1-3)/Fever >100.5/SWAIN Albuterol 2.5 mg 04/04/19 21:56 Proventil IH Q4HRT PRN Shortness Of Breath Clonidine HCl 0.2 mg 04/02/19 10:00 04/04/19 21:47 Catapres PO 0.2 mg BID FOSTER Administration Enoxaparin Sodium 30 mg 04/02/19 10:00 04/04/19 12:22 Enoxaparin SUB-Q Not Given QDAY FOSTER Hydralazine HCl 5 mg 04/02/19 02:01 04/03/19 04:22 Apresoline IV 5 mg Q6H PRN Administration Hypertension Hydralazine HCl 100 mg 04/02/19 14:00 04/04/19 21:47 Apresoline PO 100 mg TID FOSTER Administration Sodium Chloride 100 mls @ 999 mls/hr 04/04/19 09:00 Nacl 0.9% IV JULIA PRN Hypotension Cefepime HCl 2 gm in 100 mls @ 200 mls/hr 04/05/19 22:00 Cefepime/Ns 2 Gm/100 Ml IV Q24H [facility] Protocol Vancomycin HCl 1 gm in 250 mls @ 167.007 mls/hr 04/05/19 10:00 Vancomycin/Ns 1 Gm/250 Ml IV 04/05/19 11:29 ONCE ONE Magnesium Hydroxide 30 ml 04/03/19 15:38 04/03/19 18:11 Milk Of Magnesia PO 30 ml Q4H PRN Administration Constipation Ondansetron HCl 4 mg 04/01/19 23:27 Zofran IV Q8H PRN Nausea And Vomiting Oxycodone/Acetaminophen 1 tab 04/01/19 23:27 04/05/19 01:32 Percocet 5/325 PO 1 tab Q6H PRN Administration Pain, Moderate (4-6) Sodium Chloride 10 ml 04/02/19 10:00 04/04/19 21:51 Sodium Chloride Flush Syringe 10 Ml IV 10 ml BID FOSTER Administration Sodium Chloride 10 ml 04/01/19 23:27 Sodium Chloride Flush Syringe 10 Ml IV PRN PRN LINE FLUSH
[2019-04-05] MEDS ORDERED: SODIUM CHLORIDE 0.9% 100 ML IV PRN (08:36)
[2019-04-05] MEDS: hydrALAZINE 100 MG TAB PO SCH ×2 (08:51→14:00)
--- NOTE | 2019-04-05 09:30 | Progress Note ---
Assessment and Plan Generalized weakness Left arm AV graft malfunction Paroxysmal Afib previously on low dose eliquis for oral anticoagulation Hyperkalemia -resolved Chronic Ascites End-stage renal disease on hemodialysis Chronic systolic heart failure Nonischemic Cardiomyopathy EF 25-30% by echo 12/2018 no ischemia on MPI 12/2017 Hypertension Hypothyroidism Medical noncompliance Recommendations: Fluid/sodium restriction. Dialysis for fluid management. Medical management for paroxysmal atrial fibrillation and chronic systolic heart failure. Conservative cardiac management. Subjective Date of service: 04/05/19 Interval history: Patient reports he is feeling better. Family members at the bedside. Objective Vital Signs Temp Pulse Resp BP Pulse Ox Pulse Ox 04/05/19 08:06 98.0 F 71 18 162/78 95 04/05/19 04:26 72 04/05/19 03:39 98.7 F 74 16 149/78 90 04/04/19 23:27 98.6 F 76 20 149/73 88 04/04/19 19:50 98.5 F 79 20 180/88 92 04/04/19 16:47 98.6 F 84 18 155/85 93 04/04/19 15:15 98.2 F 81 18 169/102 04/04/19 15:00 81 165/101 04/04/19 14:45 80 169/94 04/04/19 14:30 84 161/88 04/04/19 14:15 84 171/84 04/04/19 14:00 81 141/76 04/04/19 13:45 78 166/99 04/04/19 13:30 78 158/87 04/04/19 13:15 78 152/77 04/04/19 13:00 82 138/68 04/04/19 12:45 79 152/77 04/04/19 12:30 80 156/84 04/04/19 12:22 75 150/80 04/04/19 12:15 77 152/79 04/04/19 12:00 74 167/94 04/04/19 11:45 98.2 F 79 20 165/87 95 04/04/19 11:29 75 20 150/80 97 04/04/19 11:15 76 15 147/83 97 04/04/19 11:01 72 14 158/80 97 - Physical Examination General: No Apparent Distress HEENT: Positive: PERRL Neck: Positive: trachea midline Cardiac: Positive: Reg Rate and Rhythm Lungs: Positive: Decreased Breath Sounds Neuro: Positive: Weakness Extremities: Present: edema - Labs and Meds CBC 04/04/19 04/05/19 Range/Units 18:21 05:16 WBC 14.0 H 13.2 H (4.5-11.0) K/mm3 RBC 3.98 3.63 L (3.65-5.03) M/mm3 Hgb 11.6 L 10.6 L (11.8-15.2) gm/dl Hct 36.6 32.9 L (35.5-45.6) % Plt Count 166 165 (140-440) K/mm3 Lymph # 0.3 L 0.5 L (1.2-5.4) K/mm3 [place] # 1.4 H 1.8 H (0.0-0.8) K/mm3 Eos # 0.1 0.1 (0.0-0.4) K/mm3 Baso # 0.0 0.0 (0.0-0.1) K/mm3 Comprehensive Metabolic Panel 04/04/19 Range/Units 18:21 Sodium 135 L (137-145) mmol/L Potassium 5.3 H (3.6-5.0) mmol/L Chloride 94.4 L (98-107) mmol/L Carbon Dioxide 22 (22-30) mmol/L BUN 46 H (9-20) mg/dL Creatinine 9.3 H (0.8-1.5) mg/dL Glucose 128 H (75-100) mg/dL Calcium 8.2 L (8.4-10.2) mg/dL
[2019-04-05] MEDS: ENOXAPARIN 30 MG/0.3 ML INJ SUB-Q SCH (09:53)
[2019-04-05] MEDS: cloNIDine 0.2 MG TAB PO SCH ×2 (09:55→10:06)
[2019-04-05] MEDS ORDERED: VANCOMYCIN/NS 1 GM/250 ML 1 GM/250 ML BAG IV ONE (10:00)
[2019-04-05 10:19] LABS: Calcium 7.9 mg/dL (8.4-10.2)
[2019-04-05 12:03] VITALS: BP 163/86
--- NOTE | 2019-04-05 12:51 | Progress Note ---
Assessment and Plan Cultures: 04/04 blood cultures - NGTD A/P: 48-year-old man with past medical history ESRD on HD, significant previous cardiac history aadmitted with a fall, found to have cellulitis 1. cellulitis of the left leg- patient with significant cadiovascular comorbidities and skin changes, at high risk for recurrent cellulitis. We saw him in December of this year with cellulitis with cultures growing Enterobacter and Klebsiella. 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 2. ESRD on HD - renally dose antibiotics as appropriate Recs: - Continue cefepime 2 g every 24 hours - Continue vancomycin dosed per pharmacy, goal trough 10-15 - follow up blood cultures - Follow for improvement. - patient requesting discharge: on discharge would complete 10 days of Bactrim DS q12h. Thank you for the consult, we will continue to follow. Dale Costa MD [facility] ([facility]) M: [phone] O: [phone] F: [phone] Subjective Date of service: 04/05/19 Interval history: Afebrile. White count 13. Objective - Exam Narrative Exam: Constitutional: Alert, cooperative. No acute distress Head, Ears, Nose: Normocephalic, atraumatic. External ears, nose normal Eyes: Conjunctivae/corneas clear. No icterus. No ptosis. Neck: Supple, no meningeal signs Oral: dentition fair, no thrush Cardiovascular: S1, S2 normal. Respiratory: Good air entry, clear to auscultation bilaterally GI: Soft, non-tender; bowel sounds normal. No peritoneal signs. Musculoskeletal: Left leg redness with blanching, swelling Skin: No rash or abscess Hem/Lymphatic: No palpable cervical or supraclavicular nodes. No lymphangitis Psych: Mood ok. Affect normal Neurological: Awake, alert, oriented. No gross abnormality - Constitutional Vitals: Vital Signs Temp Pulse Resp BP Pulse Ox 98.2 F 71 18 163/86 95 04/05/19 12:01 04/05/19 12:01 04/05/19 12:01 04/05/19 12:01 04/05/19 12:01 Temperature -Last 24 Hours Temperature 98.2 F Temperature 98.0 F Temperature 98.7 F Temperature 98.6 F Temperature 98.5 F Temperature 98.6 F Temperature 98.2 F - Labs CBC & Chem 7: 04/05/19 05:16 04/05/19 05:18 Labs: Abnormal lab results 04/04/19 04/04/19 04/05/19 Range/Units 18:21 18:21 05:16 WBC 14.0 H 13.2 H (4.5-11.0) K/mm3 RBC 3.63 L (3.65-5.03) M/mm3 Hgb 11.6 L 10.6 L (11.8-15.2) gm/dl Hct 32.9 L (35.5-45.6) % RDW 16.4 H 16.1 H (13.2-15.2) % Lymph % (Auto) 2.2 L 3.5 L (13.4-35.0) % Day % (Auto) 10.4 H 13.6 H (0.0-7.3) % Lymph # 0.3 L 0.5 L (1.2-5.4) K/mm3 Day # 1.4 H 1.8 H (0.0-0.8) K/mm3 Seg Neutrophils % 86.4 H 81.7 H (40.0-70.0) % Seg Neutrophils # 12.1 H 10.8 H (1.8-7.7) K/mm3 Sodium 135 L (137-145) mmol/L Potassium 5.3 H (3.6-5.0) mmol/L Chloride 94.4 L (98-107) mmol/L BUN 46 H (9-20) mg/dL Creatinine 9.3 H (0.8-1.5) mg/dL Glucose 128 H (75-100) mg/dL Calcium 8.2 L (8.4-10.2) mg/dL 04/05/19 Range/Units 05:18 WBC (4.5-11.0) K/mm3 RBC (3.65-5.03) M/mm3 Hgb (11.8-15.2) gm/dl Hct (35.5-45.6) % RDW (13.2-15.2) % Lymph % (Auto) (13.4-35.0) % Day % (Auto) (0.0-7.3) % Lymph # (1.2-5.4) K/mm3 Day # (0.0-0.8) K/mm3 Seg Neutrophils % (40.0-70.0) % Seg Neutrophils # (1.8-7.7) K/mm3 Sodium 136 L (137-145) mmol/L Potassium 5.7 H (3.6-5.0) mmol/L Chloride 95.1 L (98-107) mmol/L BUN 52 H (9-20) mg/dL Creatinine 10.4 H (0.8-1.5) mg/dL Glucose 102 H (75-100) mg/dL Calcium 7.9 L (8.4-10.2) mg/dL
--- NOTE | 2019-04-05 13:23 | Discharge Summary ---
Providers - Providers Date of Admission: 04/02/19 13:49 Date of discharge: 04/05/19 Attending physician: DANYA GAY MD 04/01/19 23:04 Consult to Physician [CONS] Urgent Comment: Dr. Díaz spoke with Dr. Wyatt @ [id number] Consulting Provider: ESME WYATT Physician Instructions: Reason For Exam: esrd, hyperkalemia, noncompliant 04/01/19 23:48 Consult to Physician [CONS] Routine Comment: Consulting Provider: HOLLIS DESAI Physician Instructions: Reason For Exam: ab CE 04/01/19 23:49 Consult to Wound/ET Nurse [CONS] Routine Reason For Exam: wound eval 04/03/19 09:55 Consult to Physician [CONS] Routine Comment: Consulting Provider: JAZ LOVE Physician Instructions: Reason For Exam: cellulitis 04/03/19 13:05 Consult to Physician [CONS] Routine Comment: Consulting Provider: JEREMIAH WU Physician Instructions: Reason For Exam: Fistula eval follwo up ? stenosis Primary care physician: FREIGHT CLERK Hospitalization Reason for admission: Missed dialysis, sepsis, cellulitis, non-compliance Condition: Poor Pertinent studies: Bilateral Doppler ultrasound of the lower extremities; negative for DVT Hospital course: 48-year-old man with a history of polycystic kidney disease, hypertension, Afib, recurrent ascites ,end-stage renal disease and dialysis comes emergency room with complaints of diffuse body ache, he missed HD on Monday. He has chronic ascites with indwelling catheter that drains 1 to 1.5L a day. States 3 days ago he noticed his left thigh becoming red and tender, admits to fever. Patient has been admitted previously to this hospital for the same problems and usually left AMA after he feels better. Patient doesn't follow recommended dialysis, he usually cuts short and he said he can't take it more than 3 hrs. Boat Rental Clerk called and asked the dialysis session where he has been following and patient is non compliant and cut his dialysis sessions here. Patient admitted to the floor conciliator consulted and patient was started on hemodialysis, despite dialysis his potassium is high because he cut his dilaysis short and refused kayexalate also. I have extensive discussion daily and patient wants to do what he wants to do despite explaining the risks and benefits. Patient had marked swelling and tenderness of the left leg and based on previous records ID put him on cefepime and vancomycin. Patient doesn't follow the recommended manegement and wants to go home. I called ID physician Dr Nascimento and he recommend to DC him on bactrim ds 1 tab daily for 10 days. Scripts send to his pharmacy. Cardiology recommend to continue his current management. Patient is is at high risk of complications if he is continue to refuse recommended treatments. After the patient left I get a blood culture preliminary result 1/2 bottles positive for gram positive cocci in clusters. Will give him an appointment to follow up with Dr Nascimento in the office. Disposition: DC-01 TO HOME OR SELFCARE Time spent for discharge: 45 minutes - Discharge Diagnoses (1) End-stage renal disease needing dialysis Status: Acute (2) Generalized pain Status: Acute (3) Hyperkalemia Status: Acute (4) Chronic systolic CHF (congestive heart failure) Status: Acute (5) Complications, dialysis, catheter, mechanical Status: Acute Core Measure Documentation - Palliative Care Palliative Care/ Comfort Measures: Not Applicable - Core Measures Any of the following diagnoses?: none Exam - Physical Exam Narrative exam: Not in cardiopulmonary distress. The patient is obese. Vital signs as documented. Head exam is unremarkable. No scleral icterus . Neck is without jugular venous distension, thyromegaly, or carotid bruits. Lungs are clear to auscultation. Cardiac exam reveals regular rate and Rhythm. First and second heart sounds normal. No murmurs, rubs or gallops. Abdominal exam reveals clean dressing on the lower abdomen the site for paracentesis. Extremities bilateral leg swelling and induration of the left leg. 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 No focal weakness. - Constitutional Vitals: Temp Pulse Resp BP Pulse Ox 98.2 F 71 18 163/86 95 04/05/19 12:01 04/05/19 12:01 04/05/19 12:01 04/05/19 12:04/05/19 12:01 Plan Activity: no restrictions Weight Bearing Status: Weight Bear as Tolerated Diet: low salt, diabetic, renal Follow up with: PRIMARY CARE, [Primary Care Provider] - 3-5 Days SUMMER NASCIMENTO MD [Staff Physician] - 3 Days (follow the final blood culture results) Prescriptions: hydrALAZINE [Apresoline TAB] 100 mg PO TID #90 tab Sulfamethoxazole/Trimethoprim [Bactrim DS TAB] 1 each PO Q24H #10 tablet
[2019-04-05] MEDS ORDERED: CEFEPIME/NS 2 GM/100 ML 2 GM/100 ML BAG IV SCH (22:00)
== END 2019-04-05 14:37 | disposition home or self-care (01) | DRG 252 ==
LOC: ED 20:50 → INTOOBSV 23:27 → 4A 23:27 → OBSVTOIN 04-02 13:49
PROVIDERS: ADMIT Internal Medicine; ATTEND Internal Medicine
PROC: 5A1D70Z Performance of Urinary Filtration, Intermittent, Less than 6 Hours Per Day (ICD-10-PCS; 2019-04-02)
PROC: 5A1D70Z Performance of Urinary Filtration, Intermittent, Less than 6 Hours Per Day (ICD-10-PCS; 2019-04-03)
PROC: 037Y3ZZ Dilation of Upper Artery, Percutaneous Approach (ICD-10-PCS; principal; 2019-04-04)
PROC: 057Y3ZZ Dilation of Upper Vein, Percutaneous Approach (ICD-10-PCS; 2019-04-04)
PROC: B51W1ZZ Fluoroscopy of Dialysis Shunt/Fistula using Low Osmolar Contrast (ICD-10-PCS; 2019-04-04)
PROC: 5A1D70Z Performance of Urinary Filtration, Intermittent, Less than 6 Hours Per Day (ICD-10-PCS; 2019-04-04)
DX: T82.49XA Other complication of vascular dialysis catheter, initial encounter (principal); N18.6 End stage renal disease; L03.116 Cellulitis of left lower limb; Q61.3 Polycystic kidney, unspecified; I50.22 Chronic systolic (congestive) heart failure; I13.2 Hypertensive heart and chronic kidney disease with heart failure and with stage 5 chronic kidney disease, or end stage renal disease; R18.8 Other ascites; I42.8 Other cardiomyopathies; N25.81 Secondary hyperparathyroidism of renal origin; E87.2 Acidosis; E87.70 Fluid overload, unspecified; E87.5 Hyperkalemia; Y83.8 Other surgical procedures as the cause of abnormal reaction of the patient, or of later complication, without mention of misadventure at the time of the procedure; I48.91 Unspecified atrial fibrillation; D69.6 Thrombocytopenia, unspecified; F17.200 Nicotine dependence, unspecified, uncomplicated; F12.90 Cannabis use, unspecified, uncomplicated; I45.10 Unspecified right bundle-branch block; E03.9 Hypothyroidism, unspecified; I48.0 Paroxysmal atrial fibrillation; D63.1 Anemia in chronic kidney disease; I25.10 Atherosclerotic heart disease of native coronary artery without angina pectoris; Z99.2 Dependence on renal dialysis; Z79.82 Long term (current) use of aspirin; Z79.899 Other long term (current) drug therapy; Y92.89 Other specified places as the place of occurrence of the external cause; Z91.15 Patient's noncompliance with renal dialysis; Z82.49 Family history of ischemic heart disease and other diseases of the circulatory system; Z91.14 Patient's other noncompliance with medication regimen; Z83.3 Family history of diabetes mellitus
CPT/HCPCS: 36415; 36902; 71045; 80048; 80053; 80061; 80074; 80202; 82550; 82553; 82962; 83880; 84132; 84484; 85007; 85025; 87040; 87076; 87116; 87186; 93005; 93010; 94640; 94644; 96374; 96375; G0378; C1725; C1751; C1894; J0360; J0610; J0692; J1170; J1644; J1650; J1815; J2250; J2405; J2543; J3010; J3370; J7030; J7040; Q9967

== ENCOUNTER 2019-05-01 10:16 | Outpatient (CLI) | payer MEDICARE ==
--- NOTE | 2019-05-01 12:50 | Cat Scan Report ---
CT ABDOMEN AND PELVIS WITHOUT CONTRAST HISTORY: R10.9 UNSPECIFIED ABDOMINAL PAIN COMPARISON: 03/17/2019 TECHNIQUE: Axial CT images were obtained through the abdomen and pelvis without IV contrast. Sagittal and coronal reformatted images. All CT scans at this location are performed using CT dose reduction for ALARA by means of automated exposure control. FINDINGS: CT ABDOMEN: Lung Bases: Stable cardiomegaly and small pericardial effusion. A new moderate layering right pleural effusion measures up to 5.1 cm in thickness. The visualized lung bases demonstrate mild congestive c hanges. Liver: No significant abnormality. Biliary: No significant abnormality. Spleen: No significant abnormality. Unenlarged. Pancreas: No significant abnormality. Adrenals: No significant abnormality. Kidneys: The kidneys are markedly enlarged with too many to count bilateral renal cysts consistent wi th autosomal dominant polycystic kidney disease. Cysts range from subcentimeter to 5 cm in diameter. Many of the cysts demonstrate linear wall calcifications and/or hemorrhagic change. No obvious renal mass on noncontrast CT. No obvious nephrolithiasis. No hydronephrosis. Lymphatics: No lymphadenopathy. Vasculature: No significant abnormality. Bowel/Peritoneum: No significant abnormality. Normal appendix. CT PELVIS: : The bladder is decompressed. The distal ureters are unremarkable. Osseous Structures: Mild lumbar spondylosis. Additional Findings: Small to medium pelvic ascites is noted. A percutaneous drain enters the left lo wer quadrant crosses midline to terminate in the right lower quadrant. IMPRESSION: No acute abdominal process is identified. Autosomal dominant polycystic kidney disease. Small to medium ascites containing a drainage catheter. Mild cardiomegaly, small pericardial effusion and new moderate right pleural effusion. Signer Name: Lavelle Aaron Jr, MD Signed: 05/01/2019 12:46 PM Workstation Name: [id number]
== END 2019-05-01 10:17 | disposition home or self-care (01) ==
LOC: CT 10:16
PROVIDERS: ATTEND Radiology Diagnostic Radiology
DX: R10.9 Unspecified abdominal pain (principal)
CPT/HCPCS: 36415; 74177; 82565; 84520; Q9967

== ENCOUNTER 2019-05-03 10:24 | Inpatient (IN) | payer MEDICARE ==
--- NOTE | 2019-05-03 10:40 | Emergency Department Report ---
HPI - General Time Seen by Provider: 05/03/19 10:31 - HPI HPI: 49-year-old male presents to the emergency department with a complaint of shortness of breath that has been going on for the past 24 hours. The patient went to see his vascular surgeon, Dr. Castillo, yesterday secondary to a clogged abdominal drain for which she usually gets his ascites drained. They were able to fix the train and then sent him to have a CT scan of the abdomen and pelvis done with IV contrast at another facility. He says that the shortness of breath started shortly after having this procedure done. It has progressively worsened to the point where EMS was called this morning. He did have some of the fluid drained from his abdomen this morning. The patient is end-stage renal disease on hemodialysis on Monday//Monday and did have dialysis yesterday. He thinks that they took off too much fluid as he was feeling lightheaded and ill at the end of his dialysis session. EMS found the patient at home leaning forward against the counter saying that this was the most comfortable position. He was found to have some respiratory distress, a pulse ox of about 90%, and was placed on CPAP and given a breathing treatment. Patient also has a history of hypertension, CHF, and previous SVT. His inside sales is through [place]. Patient does have a primary care group but says "they don't do anything for me." No recent travel or sick contacts at home. ED Past Medical Hx - Past Medical History Hx Hypertension: Yes Hx CVA: No Hx Heart Attack/AMI: No Hx Congestive Heart Failure: Yes (diastolic - CHRONIC , CARDIOMYOPATHY) Hx Diabetes: No Hx Deep Vein Thrombosis: No Hx Pulmonary Embolism: No Hx GERD: No Hx Liver Disease: Yes (cirrhosis) Hx Renal Disease: Yes (HD TTS) Hx Sickle Cell Disease: No Hx Arthritis: No Hx Headaches / Migraines: No Hx Seizures: No Hx Kidney Stones: No Hx Psychiatric Treatment: No Hx Asthma: No Hx COPD: No Hx Tuberculosis: No Hx Dementia: No Hx HIV: No Additional medical history: Abdominal Hernias, right groin hernia, ascites - Surgical History Hx Coronary Stent: No Hx Open Heart Surgery: No Hx Pacemaker: No Hx Internal Defibrillator: No Hx Cholecystectomy: No Hx Appendectomy: No Hx Breast Surgery: No Additional Surgical History: dialysis access left arm, groin hernia repair, - Social History Smoking Status: Unknown if ever smoked - Medications Home Medications: Home Medications Medication Instructions Recorded Confirmed Last Taken Type cloNIDine [Catapres] 0.2 mg PO BID #60 tablet 12/28/18 05/03/19 03/13/19 Rx ED Review of Systems ROS: Stated complaint: DIFFICULTY BREATHING Other details as noted in HPI Comment: All other systems reviewed and negative Constitutional: denies: chills, fever Eyes: denies: eye pain, vision change ENT: denies: ear pain, throat pain Respiratory: orthopnea, shortness of breath, SOB with exertion, SOB at rest Cardiovascular: edema. denies: chest pain Gastrointestinal: denies: abdominal pain, vomiting Genitourinary: denies: dysuria, discharge Musculoskeletal: denies: back pain, arthralgia Skin: denies: rash, lesions Neurological: denies: headache, weakness Physical Exam - Physical Exam Physical Exam: GENERAL: The patient is well-developed well-nourished. HENT: Normocephalic. Atraumatic. Patient has moist mucous membranes. EYES: Extraocular motions are intact. Pupils equal reactive to light bilaterally. NECK: Supple. Trachea is midline. CHEST/LUNGS: Coarse breath sounds throughout the chest. There is tachypnea, accessory muscle use and conversational dyspnea. There is respiratory distress noted. HEART/CARDIOVASCULAR: Regular. There is no tachycardia. There is no murmur. ABDOMEN: Abdomen is soft, nontender. Patient has normal bowel sounds. There is mild abdominal distention. There is a left lower quadrant pigtail drain in place. SKIN: +2 over 4 bilateral lower extremity pitting edema. NEURO: The patient is awake, alert, and oriented. The patient is cooperative. The patient has no focal neurologic deficits. Normal speech. MUSCULOSKELETAL: There is no tenderness or deformity. There is no evidence of acute injury. ED Course - Consultations Consultation #1: 05/03/19 15:16 I spoke with the inside sales on-call, Dr. Shields, regarding the patient's end-stage renal disease and hyperkalemia. They will see the patient as a consult. - ABG Interpretation Ph: 7.42 PCO2: 35 PO2: 243 Bicarbonate: 23 Interpretation: normal ED Medical Decision Making - Lab Data Result diagrams: 05/03/19 14:40 05/03/19 12:34 - EKG Data -: EKG Interpreted by Me EKG shows normal: sinus rhythm (pacemaker spikes, PVCs), axis, intervals (prolonged OH interval QTC intervals), QRS complexes (Q waves to the anterior leads), ST-T waves Rate: normal - EKG Data When compared to previous EKG there are: previous EKG unavailable Interpretation: other (pacemaker spikes, sinus rhythm, PVC, prolonged OH and QTC intervals, Q waves to the anterior leads) - Radiology Data Radiology results: report reviewed, image reviewed interpreted by me: Chest x-ray shows pulmonary vascular congestion and some interstitial edema. No obvious pneumonia. No overt pleural effusions. NM perfusion only lung scan INDICATION / CLINICAL INFORMATION: SOB, elevated di stu. TRACER: Technetium 99m MAA 5.1 mCi IV injection. COMPARISON: No relevant prior imaging study available. FINDINGS: Perfusion only imaging was performed. Distribution is relatively homogeneous. Negative for suspicious perfusion defect. IMPRESSION: No suspicious perfusion defects. - Medical Decision Making This patient presents with some progressively worsening shortness of breath since yesterday afternoon. He required CPAP in route and BiPAP upon arrival. This has been helping with his work of breathing. ABG does not show any acid base abnormalities. Chest x-ray appears consistent with some volume overload and pulmonary vascular congestion. Labs show his end-stage renal disease along with hyperkalemia with potassium of 6.6. Hyperkalemia cocktail was given. Nephrology contacted and consult. Patient has a elevated and equivocal d-dimer so a perfusion scan will be done to evaluate for possibility of PE. Patient will be admitted to the hospital for further evaluation and treatment was accepted for admission by the hospitalist, Dr. Hodge. Critical Care Time: Yes Critical care time in (mins) excluding proc time.: 35 Critical care attestation.: If time is entered above; I have spent that time in minutes in the direct care of this critically ill patient, excluding procedure time. Critical care time was spent on this patient and doing his initial evaluation, multiple re- evaluations, ordering and interpretation of labs and imaging, BiPAP ventilation support, discussion with the inside sales and hospitalist services, and multiple discussions with the patient. Critical Care Time: 35 minutes ED Disposition Clinical Impression: ESRD (end stage renal disease), Hyperkalemia CHF exacerbation Qualifiers: Heart failure type: unspecified Qualified Code(s): I50.9 - Heart failure, unspecified Acute respiratory failure Qualifiers: Respiratory failure complication: unspecified whether with hypoxia or hypercapnia Qualified Code(s): J96.00 - Acute respiratory failure, unspecified whether with hypoxia or hypercapnia Disposition: OP ADMIT IP TO THIS HOSP Is pt being admited?: Yes Condition: Serious Time of Disposition: 15:09
--- NOTE | 2019-05-03 11:44 | XRay Report ---
CHEST 1 VIEW INDICATION: SOB. COMPARISON: 04/01/2019 FINDINGS: Support devices: None. Heart: Stable moderate cardiomegaly. Lungs/Pleura: Mild pulmonary venous congestion appear stable. Small right pleural effusion has develo ped. There is questionable infiltrate at the right lung base versus focal edema. No pneumothorax. Additional findings: None. IMPRESSION: Mild CHF. Questionable right lower lung infiltrate, correlate for pneumonia. Signer Name: Lavelle Aaron Jr, MD Signed: 05/03/2019 11:39 AM Workstation Name: [id number]
[2019-05-03 13:08] LABS: INR 1.21 (0.87-1.13)
[2019-05-03 13:37] LABS: Hematocrit TNR % (35.5-45.6); Hemoglobin TNR gm/dl (11.8-15.2); Mean Corpuscular HGB Conc TNR % (32-34); Mean Corpuscular Volume TNR fl (84-94); Red Blood Count TNR M/mm3 (3.65-5.03); Red Cell Distribution Width TNR % (13.2-15.2)
[2019-05-03 13:38] LABS: Alanine Aminotransferase 16 units/L (7-56); Albumin 3.4 g/dL (3.9-5); BUN/Creatinine Ratio 8; Basophils % (Auto) TNR % (0.0-1.8); Blood Urea Nitrogen 94 mg/dL (9-20); Eosinophils % (Auto) TNR % (0.0-4.3); Hemolysis Index 7; Lymphocytes # (Auto) TNR K/mm3 (1.2-5.4); Lymphocytes % (Auto) TNR % (13.4-35.0); Mean Platelet Volume TNR fl (6-12); Monocytes % (Auto) TNR % (0.0-7.3); Platelet Count TNR K/mm3 (140-440)
[2019-05-03 13:39] LABS: Basophils # (Auto) TNR K/mm3 (0.0-0.1); Eosinophils # (Auto) TNR K/mm3 (0.0-0.4); Monocytes # (Auto) TNR K/mm3 (0.0-0.8)
[2019-05-03] MEDS ORDERED: INSULIN REGULAR, HUMAN 100 UNITS/1 ML IV ONE (13:56)
[2019-05-03] MEDS ORDERED: DEXTROSE 50% IN WATER (25GM) 50 ML SYRINGE IV ONE (13:57)
[2019-05-03] MEDS ORDERED: CALCIUM GLUCONATE 1,000 MG in SODIUM CHLORIDE 0.9% 100 ML IV ONE (13:57)
[2019-05-03] MEDS ORDERED: ALBUTEROL 2.5 MG/3 ML NEBU IH ONE (13:57)
[2019-05-03 14:01] LABS: Chol/HDL Ratio 2.52 %; HDL Cholesterol 57 mg/dL (40-59); LDL Cholesterol,Direct 94 mg/dL (50-130)
[2019-05-03 14:44] LABS: Basophils # (Auto) 0.1 K/mm3 (0.0-0.1); Basophils % (Auto) 1.1 % (0.0-1.8); Eosinophils % (Auto) 0.4 % (0.0-4.3); Hematocrit 41.8 % (35.5-45.6); Hemoglobin 13.1 gm/dl (11.8-15.2); Lymphocytes # (Auto) 0.9 K/mm3 (1.2-5.4); Mean Corpuscular HGB Conc 31 % (32-34); Mean Corpuscular Volume 100 fl (84-94); Monocytes % (Auto) 15.2 % (0.0-7.3); Platelet Count 167 K/mm3 (140-440)
[2019-05-03] MEDS ORDERED: ONDANSETRON 4 MG/2 ML INJ IV PRN (15:59)
[2019-05-03] MEDS ORDERED: ACETAMINOPHEN 325 MG TAB PO PRN (15:59)
[2019-05-03] MEDS ORDERED: oxyCODONE /ACETAMINOPHEN 5-325MG TAB PO PRN (15:59)
--- NOTE | 2019-05-03 16:07 | Nuclear Medicine Report ---
NM perfusion only lung scan INDICATION / CLINICAL INFORMATION: SOB, elevated dimer. TRACER: Technetium 99m MAA 5.1 mCi IV injection. COMPARISON: No relevant prior imaging study available. FINDINGS: Perfusion only imaging was performed. Distribution is relatively homogeneous. Negative for suspicious perfusion defect. IMPRESSION: No suspicious perfusion defects. Signer Name: Matthew Ward MD Signed: 05/03/2019 4:03 PM Workstation Name: [id number]
[2019-05-03] MEDS ORDERED: IPRATROPIUM/ALBUTEROL SULFATE 3 ML AMPUL.NEB IH PRN ×2 (16:12→22:49)
[2019-05-03] MEDS ORDERED: SODIUM CHLORIDE 0.9% 100 ML IV PRN (16:32)
[2019-05-03] MEDS ORDERED: ALBUTEROL 2.5 MG/3 ML NEBU IH PRN (16:44)
--- NOTE | 2019-05-03 17:28 | Consultation ---
History of Present Illness - Reason for Consult Consult date: 05/03/19 end stage renal disease, hyperkalemia - History of Present Illness Mr. Ledbetter is a 49yo with ESRD who is noncompliant with dialysis, diet and fluid restriction resulting in multiple hospitalizations who presents to the ED with complaint of shortness of breath that has been going on for the past 24 hours. Per ED records, EMS was called to patient's home and found the patient leaning forward against the counter saying that this was the most comfortable position with a pulse ox of about 90% Labs in the ED were notable for K 6.6. Past History Past Medical History: other (ESRD, hypertension, abdominal ascites, cardiomyopathy, medical noncompliance) Past Surgical History: No surgical history Social history: no significant social history Family history: no significant family history Medications and Allergies Allergies Allergy/AdvReac Type Severity Reaction Status Date / Time labetalol Allergy Vomiting Verified 10/16/18 15:22 polystyrene sulfonate Allergy Unknown Verified 10/16/18 13:24 [From Kayexalate] tramadol [From Ultram] AdvReac Dizziness Verified 03/05/18 15:30 Home Medications Medication Instructions Recorded Confirmed Last Taken Type cloNIDine [Catapres] 0.2 mg PO BID #60 tablet 12/28/18 05/03/19 03/13/19 Rx Active Meds: Active Medications Acetaminophen (Tylenol) 650 mg PO Q4H PRN PRN Reason: Pain MILD(1-3)/Fever >100.5/SWAIN Albuterol (Proventil) 2.5 mg IH Q3HRT PRN PRN Reason: Shortness Of Breath,WHEEZING Albuterol/Ipratropium (Duoneb *Not For Prn Use*) 1 ampul IH QIDRT [facility] Clonidine HCl (Catapres) 0.2 mg PO BID FOSTER Heparin Sodium (Porcine) (Heparin) 5,000 unit SUB-Q Q12HR [facility] Hydromorphone HCl (Dilaudid) 0.5 mg IV Q3H PRN PRN Reason: Pain , Severe (7-10) Sodium Chloride (Nacl 0.9%) 100 mls @ 999 mls/hr IV JULIA PRN PRN Reason: Hypotension Ondansetron HCl (Zofran) 4 mg IV Q8H PRN PRN Reason: Nausea And Vomiting Oxycodone/Acetaminophen (Percocet 5/325) 1 tab PO Q6H PRN PRN Reason: Pain, Moderate (4-6) Sodium Chloride (Sodium Chloride Flush Syringe 10 Ml) 10 ml IV BID FOSTER Sodium Chloride (Sodium Chloride Flush Syringe 10 Ml) 10 ml IV PRN PRN PRN Reason: LINE FLUSH Review of Systems All systems: negative Exam - Vital Signs Vital signs: Vital Signs Pulse Resp BP Pulse Ox 67 22 157/94 100 05/03/19 10:47 05/03/19 10:47 05/03/19 10:47 05/03/19 10:47 - General Appearance General appearance: well-developed, well-nourished EENT: ATNC Respiratory: Decreased Breath Sounds Heart: regular, S1S2 Gastrointestinal: Present: distended. Absent: tenderness Neurologic: no focal deficit Musculoskeletal: Present: other (3+ edema) Results - Lab Results 05/03/19 14:40 05/03/19 12:34 Most recent lab results Calcium 9.0 mg/dL (8.4-10.2) 05/03/19 12:34 Assessment and Plan Assessment: * End-stage renal disease * Acute hypoxic respiratory failure secondary to pulmonary edema * Hyperkalemia * Cardiomyopathy - TTE: EF 25-30% (Dec 2018) * Atrial fibrillation * Metabolic acidosis * Abdominal ascites * [place] * Anemia secondary to ESRD * Secondary hyperparathyroidism * Medical nonocompliance Plan: * Hemodialysis today - goal UF 3 liters * Will offer an additional treatment tomorrow for fluid removal * UF as tolerated * Epogen TIW prn * Renal diet * Binders with meals
[2019-05-03] MEDS ORDERED: IPRATROPIUM/ALBUTEROL SULFATE 3 ML AMPUL.NEB IH SCH (20:00)
[2019-05-03] MEDS: cloNIDine 0.2 MG TAB PO SCH (21:33)
[2019-05-03] MEDS: HEPARIN 5,000 UNIT/1 ML VIAL SUB-Q SCH (21:33)
[2019-05-03] MEDS: HYDROmorphone 1 MG/1 ML INJ IV PRN (21:44)
--- NOTE | 2019-05-03 22:21 | History and Physical Report ---
History of Present Illness Date of examination: 05/03/19 Date of admission: 05/03/19 15:59 Chief complaint: Severe shortness of breath since morning History of present illness: 49-year-old -[place] male with history of hypertension end-stage renal disease congestive heart failure liver disease with severe ascites and cardiomyopathy comes in for increasing shortness of breath and severe respiratory distress. No chest pain. Patient has severe ascites and a catheter from which he drains ascitic fluid everyday. No fever or chills. He did have some of the fluid drained from her abdomen this morning. Patient had dialysis yesterday. He underwent dialysis yesterday patient became very short of breath and severe respiratory distress. No recent travel. No increased fluid intake. Patient had malfunctioning catheter S today which was corrected.. Past Medical History Hypertension: Yes Congestive Heart Failure: Yes (diastolic - CHRONIC , CARDIOMYOPATHY) Liver Disease: Yes (cirrhosis) Renal Disease: Yes (HD TTS) Additional medical history: Abdominal Hernias, right groin hernia, ascites Surgical History Dialysis access left arm, groin hernia repair, Social History Smoking Status: Unknown if ever smoked Family history Htn - Medications Home Medications: Home Medications Medication Instructions Recorded Confirmed Last Taken Type cloNIDine [Catapres] 0.2 mg PO BID #60 tablet 12/28/18 05/03/19 03/13/19 Rx Review of Systems ROS: Stated complaint: DIFFICULTY BREATHING Other details as noted in HPI Comment: All other systems reviewed and negative Constitutional: denies: chills, fever Eyes: denies: eye pain, vision change ENT: denies: ear pain, throat pain Respiratory: orthopnea, shortness of breath, SOB with exertion, SOB at rest Cardiovascular: edema. denies: chest pain Gastrointestinal: denies: abdominal pain, vomiting Genitourinary: denies: dysuria, discharge Musculoskeletal: denies: back pain, arthralgia Skin: denies: rash, lesions Neurological: denies: headache, weakness Past History Past Medical History: other (ESRD, hypertension, abdominal ascites, cardiomyopathy, medical noncompliance) Past Surgical History: No surgical history Social history: no significant social history Family history: no significant family history Medications and Allergies Allergies Allergy/AdvReac Type Severity Reaction Status Date / Time labetalol Allergy Vomiting Verified 10/16/18 15:22 polystyrene sulfonate Allergy Unknown Verified 10/16/18 13:24 [From Kayexalate] tramadol [From Ultram] AdvReac Dizziness Verified 03/05/18 15:30 Home Medications Medication Instructions Recorded Confirmed Last Taken Type cloNIDine [Catapres] 0.2 mg PO BID #60 tablet 12/28/18 05/03/19 03/13/19 Rx Active Meds: Active Medications Acetaminophen (Tylenol) 650 mg PO Q4H PRN PRN Reason: Pain MILD(1-3)/Fever >100.5/SWAIN Albuterol (Proventil) 2.5 mg IH Q3HRT PRN PRN Reason: Shortness Of Breath,WHEEZING Albuterol/Ipratropium (Duoneb *Not For Prn Use*) 1 ampul IH QIDRT [facility] Clonidine HCl (Catapres) 0.2 mg PO BID [facility] Last Admin: 05/03/19 21:33 Dose: 0.2 mg Documented by: Heparin Sodium (Porcine) (Heparin) 5,000 unit SUB-Q Q12HR [facility] Last Admin: 05/03/19 21:33 Dose: 5,000 unit Documented by: Hydromorphone HCl (Dilaudid) 0.5 mg IV Q3H PRN PRN Reason: Pain , Severe (7-10) Last Admin: 05/03/19 21:44 Dose: 0.5 mg Documented by: Sodium Chloride (Nacl 0.9%) 100 mls @ 999 mls/hr IV JULIA PRN PRN Reason: Hypotension Ondansetron HCl (Zofran) 4 mg IV Q8H PRN PRN Reason: Nausea And Vomiting Oxycodone/Acetaminophen (Percocet 5/325) 1 tab PO Q6H PRN PRN Reason: Pain, Moderate (4-6) Sodium Chloride (Sodium Chloride Flush Syringe 10 Ml) 10 ml IV BID [facility] Last Admin: 05/03/19 21:33 Dose: 10 ml Documented by: Sodium Chloride (Sodium Chloride Flush Syringe 10 Ml) 10 ml IV PRN PRN PRN Reason: LINE FLUSH Exam - Constitutional Vitals: Temp Pulse Resp BP Pulse Ox 98.8 F 79 20 131/83 97 05/03/19 21:21 05/03/19 21:20 05/03/19 21:20 05/03/19 21:20 05/03/19 21:20 General appearance: Present: severe distress, well-nourished - EENT Eyes: Present: PERRL ENT: hearing intact, clear oral mucosa - Neck Neck: Present: supple, normal ROM - Respiratory Respiratory effort: normal Respiratory: bilateral: CTA, rales, rhonchi - Cardiovascular Heart rate: 90 Rhythm: regular Heart Sounds: Present: S1 & S2. Absent: rub, click - Extremities Extremities: no ischemia, pulses intact, pulses symmetrical, No edema Peripheral Pulses: within normal limits - Abdominal General gastrointestinal: Present: distended, normal bowel sounds, other (severe ascites) Male genitourinary: Present: normal - Integumentary Integumentary: Present: clear, warm, dry - Musculoskeletal Musculoskeletal: gait normal, strength equal bilaterally - Psychiatric Psychiatric: appropriate mood/affect, intact judgment & insight - Neurologic Neurologic: CNII-XII intact, moves all extremities Results - Labs CBC & Chem 7: 05/03/19 14:40 05/03/19 12:34 Labs: Laboratory Last Values WBC 6.7 K/mm3 (4.5-11.0) 05/03/19 14:40 RBC 4.20 M/mm3 (3.65-5.03) 05/03/19 14:40 Hgb 13.1 gm/dl (11.8-15.2) 05/03/19 14:40 Hct 41.8 % (35.5-45.6) 05/03/19 14:40 MCV 100 fl (84-94) H 05/03/19 14:40 MCH 31 pg (28-32) 05/03/19 14:40 MCHC 31 % (32-34) L 05/03/19 14:40 RDW 24.0 % (13.2-15.2) H 05/03/19 14:40 Plt Count 167 K/mm3 (140-440) 05/03/19 14:40 Lymph % (Auto) 13.0 % (13.4-35.0) L 05/03/19 14:40 [place] % (Auto) 15.2 % (0.0-7.3) H 05/03/19 14:40 Eos % (Auto) 0.4 % (0.0-4.3) 05/03/19 14:40 Baso % (Auto) 1.1 % (0.0-1.8) 05/03/19 14:40 Lymph # 0.9 K/mm3 (1.2-5.4) L 05/03/19 14:40 [place] # 1.0 K/mm3 (0.0-0.8) H 05/03/19 14:40 Eos # 0.0 K/mm3 (0.0-0.4) 05/03/19 14:40 Baso # 0.1 K/mm3 (0.0-0.1) 05/03/19 14:40 Add Manual Diff TNR 05/03/19 12:34 Seg Neutrophils % 70.3 % (40.0-70.0) H 05/03/19 14:40 Seg Neutrophils # 4.7 K/mm3 (1.8-7.7) 05/03/19 14:40 PT 15.2 Sec. (12.2-14.9) H 05/03/19 12:34 INR 1.21 (0.87-1.13) H 05/03/19 12:34 D-Dimer 406.74 ng/mlDDU (0-234) H 05/03/19 12:34 POC ABG pH 7.423 (7.35-7.45) 05/03/19 11:12 POC ABG pCO2 35.7 (35-45) 05/03/19 11:12 POC ABG pO2 246 (80-105) H 05/03/19 11:12 POC ABG HCO3 23.3 (22-26 mml/L) 05/03/19 11:12 POC ABG Total CO2 24 (23-27mmol/L) 05/03/19 11:12 POC ABG O2 Sat 100 05/03/19 11:12 POC ABG Base Excess -1 ((-2) - (+3)mmol/L) 05/03/19 11:12 FiO2 75 % 05/03/19 11:12 Sodium 134 mmol/L (137-145) L 05/03/19 12:34 Potassium 6.6 mmol/L (3.6-5.0) H* 05/03/19 12:34 Chloride 93.4 mmol/L (98-107) L 05/03/19 12:34 Carbon Dioxide 18 mmol/L (22-30) L 05/03/19 12:34 Anion Gap 29 mmol/L 05/03/19 12:34 BUN 94 mg/dL (9-20) H 05/03/19 12:34 Creatinine 12.2 mg/dL (0.8-1.5) H 05/03/19 12:34 Estimated GFR 5 ml/min 05/03/19 12:34 BUN/Creatinine Ratio 8 % 05/03/19 12:34 Glucose 107 mg/dL (75-100) H 05/03/19 12:34 POC Glucose 90 (70-105) 05/03/19 12:50 Hemoglobin A1c 5.7 % (4-6) 05/03/19 16:12 Calcium 9.0 mg/dL (8.4-10.2) 05/03/19 12:34 Total Bilirubin 0.50 mg/dL (0.1-1.2) 05/03/19 12:34 AST 22 units/L (5-40) 05/03/19 12:34 ALT 16 units/L (7-56) 05/03/19 12:34 Alkaline Phosphatase 58 units/L (35-129) 05/03/19 12:34 Troponin T 1.250 ng/mL (0.00-0.029) H* 05/03/19 12:34 NT-Pro-B Natriuret Pep > 41609 pg/mL (0-450) H 05/03/19 12:34 Total Protein 6.7 g/dL (6.3-8.2) 05/03/19 12:34 Albumin 3.4 g/dL (3.9-5) L 05/03/19 12:34 Albumin/Globulin Ratio 1.0 % 05/03/19 12:34 Triglycerides 47 mg/dL (2-149) 05/03/19 12:34 Cholesterol 144 mg/dL (50-199) 05/03/19 12:34 LDL Cholesterol Direct 94 mg/dL (50-130) 05/03/19 12:34 HDL Cholesterol 57 mg/dL (40-59) 05/03/19 12:34 Cholesterol/HDL Ratio 2.52 % 05/03/19 12:34 Short CBC 05/03/19 05/03/19 Range/Units 12:34 14:40 WBC TNR 6.7 Hgb TNR 13.1 Hct TNR 41.8 Plt Count TNR 167 BMP 12/06/19 12:34 Sodium 134 L Potassium 6.6 H* Chloride 93.4 L Carbon Dioxide 18 L BUN 94 H Creatinine 12.2 H Glucose 107 H Calcium 9.0 Cardiac Enzymes 05/03/19 Range/Units 12:34 Troponin T 1.250 H* (0.00-0.029) ng/mL Liver Function 05/03/19 Range/Units 12:34 Total Bilirubin 0.50 (0.1-1.2) mg/dL AST 22 (5-40) units/L ALT 16 (7-56) units/L Alkaline Phosphatase 58 (35-129) units/L Albumin 3.4 L (3.9-5) g/dL - Imaging and Cardiology EKG: report reviewed Chest x-ray: report reviewed Imaging and Cardiology: EKG -EKG Interpreted by Me EKG shows normal: sinus rhythm (pacemaker spikes, PVCs), axis, intervals (prolonged DE interval QTC intervals), QRS complexes (Q waves to the anterior leads), ST-T waves Rate: normal CXR IMPRESSION: Mild CHF. Questionable right lower lung infiltrate, correlate for pneumonia. Assessment and Plan Advance Directives: Yes (full code) VTE prophylaxis?: Chemical Plan of care discussed with patient/family: Yes - Patient Problems (1) Acute respiratory failure with hypoxia Current Visit: Yes Status: Acute Plan to address problem: Patient on BiPAP Intubation necessary Nebulizer treatments IV antibiotics for possible pneumonia IV low-dose Solu-Medrol (2) Right lower lobe pneumonia Current Visit: Yes Status: Acute Plan to address problem: IV ceftriaxone and Zithromax (3) Volume overload Current Visit: Yes Status: Acute Qualifiers: Hypervolemia type: unspecified Qualified Code(s): E87.70 - Fluid overload, unspecified Plan to address problem: Increased ultrafiltration Emergent hemodialysis (4) End-stage renal disease needing dialysis Current Visit: No Status: Chronic Plan to address problem: Continue hemodialysis (5) HTN (hypertension) Current Visit: No Status: Chronic Qualifiers: Hypertension type: essential hypertension Qualified Code(s): I10 - Essential (primary) hypertension Plan to address problem: Continue antihypertensives and adjust blood pressure medications (6) Acidosis Current Visit: No Status: Acute (7) Ascites Current Visit: No Status: Chronic Qualifiers: Ascites type: other type Qualified Code(s): R18.8 - Other ascites Plan to address problem: For paracentesis tomorrow (8) Hyperkalemia Current Visit: Yes Status: Acute Plan to address problem: Patient is allergic to Kayexalate Calcium gluconate and insulin given Sodium bicarbonate given patient going for emergent hemodialysis (9) DVT prophylaxis Current Visit: Yes Status: Acute Plan to address problem: On heparin and GI prophylaxis
[2019-05-03] MEDS: methylPREDNISolone Sod Succinate 40 MG/1 ML INJ IV SCH (23:13)
[2019-05-03 23:30] LABS: Hepatitis B Surface Antigen Non-Reactive (Negative); Hepatitis C Virus Antibody Non-Reactive (NonReactive)
[2019-05-04 06:23] LABS: Hematocrit 33.6 % (35.5-45.6); Hemoglobin 10.8 gm/dl (11.8-15.2); Mean Corpuscular HGB Conc 32 % (32-34); Mean Corpuscular Volume 98 fl (84-94); Platelet Count 177 K/mm3 (140-440); Red Blood Count 3.43 M/mm3 (3.65-5.03)
[2019-05-04 06:24] LABS: Red Cell Distribution Width 23.1 % (13.2-15.2)
[2019-05-04 06:46] LABS: Albumin 3.1 g/dL (3.9-5); Calcium 8.7 mg/dL (8.4-10.2)
[2019-05-04] MEDS: HEPARIN 5,000 UNIT/1 ML VIAL SUB-Q SCH ×3 (07:47→21:54)
[2019-05-04] MEDS: methylPREDNISolone Sod Succinate 40 MG/1 ML INJ IV SCH ×2 (07:48→14:29)
[2019-05-04] MEDS: IPRATROPIUM/ALBUTEROL SULFATE 3 ML AMPUL.NEB IH SCH ×4 (08:09→22:36)
[2019-05-04] MEDS: HYDROmorphone 1 MG/1 ML INJ IV PRN ×2 (08:32→20:32)
[2019-05-04] MEDS ORDERED: LOSARTAN 50 MG TAB PO SCH (10:00)
[2019-05-04] MEDS ORDERED: INSULIN REGULAR, HUMAN 100 UNITS/1 ML IV STA (10:17)
--- NOTE | 2019-05-04 10:19 | Progress Note ---
Assessment and Plan Assessment and plan: Acute respiratory failure with hypoxia IV antibiotics for possible pneumonia IV low-dose Solu-Medrol Right lower lobe pneumonia Levaquin iv Volume overload Increased ultrafiltration Emergent hemodialysis done End-stage renal disease needing dialysis Continue hemodialysis Hypertension Continue antihypertensives and adjust blood pressure medications Acidosis Ascites For paracentesis Monday Hyperkalemia Improved Patient is allergic to Kayexalate Calcium gluconate and insulin given on initial presentation DVT prophylaxis On heparin and GI prophylaxis History Interval history: Shortness of breath improving Hospitalist Physical - Physical exam Narrative exam: Gen: Not in acute distress, lying in bed HEENT: Normocephalic, atraumatic Neck: supple, no JVD Heart: S1 and S2 reg, no murmurs, rubs or gallop Lungs: Bilateral crackles, Abd: soft, NT, distended with ascitis, peritoneal catheter, normal BS Ext: Bilateral lower ext edema, no clubbing, no cyanosis Neuro: Awake, alert, oriented X 3, moves all ext - Constitutional Vitals: Temp Pulse Resp BP Pulse Ox 98.5 F 66 18 135/84 99 05/04/19 04:08 05/04/19 08:00 05/04/19 08:00 05/04/19 04:06 05/04/19 08:26 Results - Labs CBC & Chem 7: 05/04/19 05:57 05/04/19 05:57 Labs: Laboratory Last Values WBC 6.7 K/mm3 (4.5-11.0) 05/04/19 05:57 RBC 3.43 M/mm3 (3.65-5.03) L 05/04/19 05:57 Hgb 10.8 gm/dl (11.8-15.2) L 05/04/19 05:57 Hct 33.6 % (35.5-45.6) L D 05/04/19 05:57 MCV 98 fl (84-94) H 05/04/19 05:57 MCH 32 pg (28-32) 05/04/19 05:57 MCHC 32 % (32-34) 05/04/19 05:57 RDW 23.1 % (13.2-15.2) H 05/04/19 05:57 Plt Count 177 K/mm3 (140-440) 05/04/19 05:57 Lymph % (Auto) 13.0 % (13.4-35.0) L 05/03/19 14:40 [place] % (Auto) 15.2 % (0.0-7.3) H 05/03/19 14:40 Eos % (Auto) 0.4 % (0.0-4.3) 05/03/19 14:40 Baso % (Auto) 1.1 % (0.0-1.8) 05/03/19 14:40 Lymph # 0.9 K/mm3 (1.2-5.4) L 05/03/19 14:40 [place] # 1.0 K/mm3 (0.0-0.8) H 05/03/19 14:40 Eos # 0.0 K/mm3 (0.0-0.4) 05/03/19 14:40 Baso # 0.1 K/mm3 (0.0-0.1) 05/03/19 14:40 Add Manual Diff TNR 05/03/19 12:34 Seg Neutrophils % [employer] 05/04/19 05:57 Seg Neutrophils # 4.7 K/mm3 (1.8-7.7) 05/03/19 14:40 PT 15.2 Sec. (12.2-14.9) H 05/03/19 12:34 INR 1.21 (0.87-1.13) H 05/03/19 12:34 D-Dimer 406.74 ng/mlDDU (0-234) H 05/03/19 12:34 POC ABG pH 7.423 (7.35-7.45) 05/03/19 11:12 POC ABG pCO2 35.7 (35-45) 05/03/19 11:12 POC ABG pO2 246 (80-105) H 05/03/19 11:12 POC ABG HCO3 23.3 (22-26 mml/L) 05/03/19 11:12 POC ABG Total CO2 24 (23-27mmol/L) 05/03/19 11:12 POC ABG O2 Sat 100 05/03/19 11:12 POC ABG Base Excess -1 ((-2) - (+3)mmol/L) 05/03/19 11:12 FiO2 75 % 05/03/19 11:12 Sodium 139 mmol/L (137-145) 05/04/19 05:57 Potassium 6.0 mmol/L (3.6-5.0) H 05/04/19 05:57 Chloride 96.1 mmol/L (98-107) L 05/04/19 05:57 Carbon Dioxide 21 mmol/L (22-30) L 05/04/19 05:57 Anion Gap 28 mmol/L 05/04/19 05:57 BUN 74 mg/dL (9-20) H 05/04/19 05:57 Creatinine 9.6 mg/dL (0.8-1.5) H 05/04/19 05:57 Estimated GFR 7 ml/min 05/04/19 05:57 BUN/Creatinine Ratio 8 % 05/04/19 05:57 Glucose 137 mg/dL (75-100) H 05/04/19 05:57 POC Glucose 134 (70-105) H 05/04/19 08:51 Hemoglobin A1c 5.7 % (4-6) 05/03/19 16:12 Calcium 8.7 mg/dL (8.4-10.2) 05/04/19 05:57 Total Bilirubin 0.50 mg/dL (0.1-1.2) 05/04/19 05:57 AST 20 units/L (5-40) 05/04/19 05:57 ALT 17 units/L (7-56) 05/04/19 05:57 Alkaline Phosphatase 59 units/L (35-129) 05/04/19 05:57 Troponin T 1.250 ng/mL (0.00-0.029) H* 05/03/19 12:34 NT-Pro-B Natriuret Pep > 24754 pg/mL (0-450) H 05/03/19 12:34 Total Protein 6.4 g/dL (6.3-8.2) 05/04/19 05:57 Albumin 3.1 g/dL (3.9-5) L 05/04/19 05:57 Albumin/Globulin Ratio 0.9 % 05/04/19 05:57 Triglycerides 47 mg/dL (2-149) 05/03/19 12:34 Cholesterol 144 mg/dL (50-199) 05/03/19 12:34 LDL Cholesterol Direct 94 mg/dL (50-130) 05/03/19 12:34 HDL Cholesterol 57 mg/dL (40-59) 05/03/19 12:34 Cholesterol/HDL Ratio 2.52 % 05/03/19 12:34 Hepatitis A IgM Ab Non-reactive (NonReactive) 05/03/19 21:48 Hep Bs Antigen Non-reactive (Negative) 05/03/19 21:48 Hep B Core IgM Ab Non-reactive (NonReactive) 05/03/19 21:48 Hepatitis C Antibody Non-reactive (NonReactive) 05/03/19 21:48 Active Medications - Current Medications Current Medications: Generic Name Dose Route Start Last Admin Trade Name Freq PRN Reason Stop Dose Admin Acetaminophen 650 mg 05/03/19 15:59 Tylenol PO Q4H PRN Pain MILD(1-3)/Fever >100.5/SWAIN Albuterol 2.5 mg 05/03/19 16:44 Proventil IH Q3HRT PRN Shortness Of Breath,WHEEZING Albuterol/Ipratropium 1 ampul 05/04/19 08:00 05/04/19 08:09 Duoneb *Not For Prn Use* IH 1 ampul QIDRT [facility] Administration Clonidine HCl 0.2 mg 05/03/19 22:00 05/03/19 21:33 Catapres PO 0.2 mg BID FOSTER Administration Dextrose 25 gm 05/04/19 10:18 D50w (25gm) Vial IV 05/04/19 10:19 ONCE STA Heparin Sodium (Porcine) 5,000 unit 05/03/19 16:15 05/04/19 07:47 Heparin SUB-Q Not Given Q12HR [facility] Hydromorphone HCl 0.5 mg 05/03/19 15:59 05/04/19 08:32 Dilaudid IV 0.5 mg Q3H PRN Administration Pain , Severe (7-10) Sodium Chloride 100 mls @ 999 mls/hr 05/03/19 16:32 Nacl 0.9% IV JULIA PRN Hypotension Levofloxacin/Dextrose 500 mg in 100 mls @ 66.667 mls/hr 05/05/19 22:00 Levaquin 500mg/100ml IV Q48H FOSTER Protocol Calcium Gluconate 1,000 mg/ 110 mls @ 660 mls/hr 05/04/19 10:16 Sodium Chloride IV 05/04/19 10:25 ONCE STA Insulin Human Regular 10 units 05/04/19 10:17 Humulin R IV 12/07/19 10:18 ONCE STA Methylprednisolone Sodium Succinate 40 mg 05/03/19 23:00 05/04/19 07:48 Solu-Medrol IV Not Given Q8HR [facility] Ondansetron HCl 4 mg 05/03/19 15:59 Zofran IV Q8H PRN Nausea And Vomiting Oxycodone/Acetaminophen 1 tab 05/03/19 15:59 Percocet 5/325 PO Q6H PRN Pain, Moderate (4-6) Sodium Chloride 10 ml 05/03/19 22:00 05/03/19 21:33 Sodium Chloride Flush Syringe 10 Ml IV 10 ml BID FOSTER Administration Sodium Chloride 10 ml 05/03/19 15:59 Sodium Chloride Flush Syringe 10 Ml IV PRN PRN LINE FLUSH
[2019-05-04 10:27] LABS: Basophils % (Manual) 0 % (0.0-1.8); Eosinophils % (Manual) 0 % (0.0-4.3); Total Cells Counted 100
[2019-05-04 10:29] LABS: Platelet Estimate Consistent w Auto; Tear Drop Cells Few
[2019-05-04] MEDS: cloNIDine 0.2 MG TAB PO SCH ×2 (10:37→21:54)
[2019-05-04] MEDS ORDERED: CALCIUM GLUCONATE 1,000 MG in SODIUM CHLORIDE 0.9% 100 ML IV ONE (11:00)
[2019-05-04] MEDS ORDERED: DEXTROSE 50% IN WATER (25GM) 50 ML SYRINGE IV ONE (11:00)
[2019-05-04] MEDS ORDERED: SODIUM CHLORIDE 0.9% 100 ML IV PRN (12:26)
--- NOTE | 2019-05-04 12:27 | Progress Note ---
Assessment and Plan Assessment: * End-stage renal disease * Acute hypoxic respiratory failure secondary to pulmonary edema * Hyperkalemia * Cardiomyopathy - TTE: EF 25-30% (Dec 2018) * Atrial fibrillation * Metabolic acidosis * Abdominal ascites * Anasaraca * Anemia secondary to ESRD * Secondary hyperparathyroidism * Medical nonocompliance Plan: * Patient is s/p HD yesterday * HD today in light of hyperkalemia - continue outpatient TTS schedule * UF as tolerated * Epogen TIW prn * Renal diet - patient is noncompliant, outside food being brought to patient * Binders with meals Subjective Date of service: 05/04/19 Interval history: Patient reports that he is feeling better Objective - Vital Signs Vital signs: Vital Signs - 12hr 05/04/19 05/04/19 05/04/19 04:06 04:08 08:00 Temperature 98.5 F Pulse Rate 69 Pulse Rate [ 66 Bilateral Throughout] Respiratory 20 Rate Respiratory 18 Rate [Bilateral Throughout] Blood Pressure 135/84 O2 Sat by Pulse 100 Oximetry 05/04/19 05/04/19 08:26 08:42 Temperature 98.0 F Pulse Rate Pulse Rate [ Bilateral Throughout] Respiratory 18 Rate Respiratory Rate [Bilateral Throughout] Blood Pressure 134/86 O2 Sat by Pulse 99 Oximetry - General Appearance General appearance: well-developed, well-nourished EENT: ATNC Respiratory: Present: Decreased Breath Sounds Cardiology: regular, S1S2 Gastrointestinal: no tenderness, distended Integumentary: warm and dry Neurologic: alert and oriented x3 Musculoskeletal: other (3+ LE edema) - Lab 05/04/19 05:57 05/04/19 05:57 Most recent lab results Calcium 8.7 mg/dL (8.4-10.2) 05/04/19 05:57 Medications & Allergies - Medications Allergies/Adverse Reactions: Allergies labetalol Allergy (Verified 10/16/18 15:22) Vomiting pt also reports drastic drop in HR polystyrene sulfonate [From Kayexalate] Allergy (Verified 10/16/18 13:24) Unknown tramadol [From Ultram] Adverse Reaction (Verified 03/05/18 15:30) Dizziness Home Medications: Home Medications Medication Instructions Recorded Confirmed Last Taken Type cloNIDine [Catapres] 0.2 mg PO BID #60 tablet 12/28/18 05/03/19 03/13/19 Rx Active Medications: Generic Name Dose Route Start Last Admin Trade Name Freq PRN Reason Stop Dose Admin Acetaminophen 650 mg 05/03/19 15:59 Tylenol PO Q4H PRN Pain MILD(1-3)/Fever >100.5/SWAIN Albuterol 2.5 mg 05/03/19 16:44 Proventil IH Q3HRT PRN Shortness Of Breath,WHEEZING Albuterol/Ipratropium 1 ampul 05/04/19 08:00 05/04/19 08:09 Duoneb *Not For Prn Use* IH 1 ampul QIDRT [facility] Administration Clonidine HCl 0.2 mg 05/03/19 22:00 05/04/19 10:37 Catapres PO 0.2 mg BID [facility] Administration Heparin Sodium (Porcine) 5,000 unit 05/03/19 16:15 05/04/19 10:37 Heparin SUB-Q 5,000 unit Q12HR [facility] Administration Hydromorphone HCl 0.5 mg 05/03/19 15:59 05/04/19 08:32 Dilaudid IV 0.5 mg Q3H PRN Administration Pain , Severe (7-10) Sodium Chloride 100 mls @ 999 mls/hr 05/03/19 16:32 Nacl 0.9% IV JULIA PRN Hypotension Levofloxacin/Dextrose 500 mg in 100 mls @ 66.667 mls/hr 05/05/19 22:00 Levaquin 500mg/100ml IV Q48H [facility] Protocol Methylprednisolone Sodium Succinate 40 mg 05/03/19 23:00 05/04/19 07:48 Solu-Medrol IV Not Given Q8HR [facility] Ondansetron HCl 4 mg 05/03/19 15:59 Zofran IV Q8H PRN Nausea And Vomiting Oxycodone/Acetaminophen 1 tab 05/03/19 15:59 Percocet 5/325 PO Q6H PRN Pain, Moderate (4-6) Sodium Chloride 10 ml 05/03/19 22:00 05/04/19 10:37 Sodium Chloride Flush Syringe 10 Ml IV 10 ml BID FOSTER Administration Sodium Chloride 10 ml 05/03/19 15:59 Sodium Chloride Flush Syringe 10 Ml IV PRN PRN LINE FLUSH
[2019-05-04] MEDS ORDERED: SODIUM CHLORIDE*PRIMING MACHINE ONLY FOR DIALYSIS MC ONE (15:56)
[2019-05-05] MEDS: methylPREDNISolone Sod Succinate 40 MG/1 ML INJ IV SCH ×2 (01:51→05:21)
[2019-05-05 04:49] VITALS: BP 136/87
[2019-05-05] MEDS: IPRATROPIUM/ALBUTEROL SULFATE 3 ML AMPUL.NEB IH SCH ×3 (08:49→14:36)
[2019-05-05] MEDS: HEPARIN 5,000 UNIT/1 ML VIAL SUB-Q SCH (10:14)
[2019-05-05] MEDS: cloNIDine 0.2 MG TAB PO SCH (10:14)
--- NOTE | 2019-05-05 16:16 | Progress Note ---
Assessment and Plan Assessment: * End-stage renal disease * Acute hypoxic respiratory failure secondary to pulmonary edema * Hyperkalemia * Cardiomyopathy - TTE: EF 25-30% (Dec 2018) * Atrial fibrillation * Metabolic acidosis * Abdominal ascites * Anasaraca * Anemia secondary to ESRD * Secondary hyperparathyroidism * Medical nonocompliance Plan: * Patient is s/p HD Monday and Monday * Resume TTS and prn schedule * UF as tolerated * Epogen TIW prn * Renal diet - patient is noncompliant, outside food being brought to patient * Binders with meals Subjective Date of service: 05/05/19 Objective - Vital Signs Vital signs: Vital Signs - 12hr 05/05/19 05/05/19 05/05/19 04:47 04:50 08:52 Temperature 97.4 F L Pulse Rate 71 Pulse Rate [ Bilateral Throughout] Respiratory 22 Rate Respiratory Rate [Bilateral Throughout] Blood Pressure 136/87 O2 Sat by Pulse 99 99 Oximetry 05/05/19 05/05/19 05/05/19 08:53 12:14 14:37 Temperature Pulse Rate 71 Pulse Rate [ 69 71 Bilateral Throughout] Respiratory Rate Respiratory 18 18 Rate [Bilateral Throughout] Blood Pressure O2 Sat by Pulse Oximetry - Lab 05/04/19 05:57 05/04/19 05:57 Most recent lab results Calcium 8.7 mg/dL (8.4-10.2) 05/04/19 05:57 Medications & Allergies - Medications Allergies/Adverse Reactions: Allergies labetalol Allergy (Verified 10/16/18 15:22) Vomiting pt also reports drastic drop in HR polystyrene sulfonate [From Kayexalate] Allergy (Verified 10/16/18 13:24) Unknown tramadol [From Ultram] Adverse Reaction (Verified 03/05/18 15:30) Dizziness Home Medications: Home Medications Medication Instructions Recorded Confirmed Last Taken Type cloNIDine [Catapres] 0.2 mg PO BID #60 tablet 12/28/18 05/03/19 03/13/19 Rx Active Medications: Generic Name Dose Route Start Last Admin Trade Name Freq PRN Reason Stop Dose Admin Acetaminophen 650 mg 05/03/19 15:59 Tylenol PO Q4H PRN Pain MILD(1-3)/Fever >100.5/SWAIN Albuterol 2.5 mg 05/03/19 16:44 Proventil IH Q3HRT PRN Shortness Of Breath,WHEEZING Albuterol/Ipratropium 1 ampul 05/04/19 08:00 05/05/19 14:36 Duoneb *Not For Prn Use* IH 1 ampul QIDRT [facility] Administration Clonidine HCl 0.2 mg 05/03/19 22:00 05/05/19 10:14 Catapres PO 0.2 mg BID FOSTER Administration Heparin Sodium (Porcine) 5,000 unit 05/03/19 16:15 05/05/19 10:14 Heparin SUB-Q 5,000 unit Q12HR [facility] Administration Hydromorphone HCl 0.5 mg 05/03/19 15:59 05/04/19 20:32 Dilaudid IV 0.5 mg Q3H PRN Administration Pain , Severe (7-10) Sodium Chloride 100 mls @ 999 mls/hr 05/03/19 16:32 Nacl 0.9% IV JULIA PRN Hypotension Levofloxacin/Dextrose 500 mg in 100 mls @ 66.667 mls/hr 05/05/19 22:00 Levaquin 500mg/100ml IV Q48H [facility] Protocol Sodium Chloride 100 mls @ 999 mls/hr 05/04/19 12:26 Nacl 0.9% IV JULIA PRN Hypotension Methylprednisolone Sodium Succinate 40 mg 05/03/19 23:00 05/05/19 05:21 Solu-Medrol IV Not Given Q8HR [facility] Ondansetron HCl 4 mg 05/03/19 15:59 Zofran IV Q8H PRN Nausea And Vomiting Oxycodone/Acetaminophen 1 tab 05/03/19 15:59 05/05/19 14:16 Percocet 5/325 PO 1 tab Q6H PRN Administration Pain, Moderate (4-6) Sodium Chloride 10 ml 05/03/19 22:00 05/05/19 10:14 Sodium Chloride Flush Syringe 10 Ml IV 10 ml BID FOSTER Administration Sodium Chloride 10 ml 05/03/19 15:59 Sodium Chloride Flush Syringe 10 Ml IV PRN PRN LINE FLUSH
--- NOTE | 2019-05-05 18:34 | Event Note ---
Date: 05/05/19 Called by Nurse that patient left against medical advice.
--- NOTE | 2019-05-05 18:34 | Discharge Summary ---
Providers - Providers Date of Admission: 05/03/19 15:59 Date of discharge: 05/05/19 Attending physician: HOLLIS SCOTT 05/03/19 14:50 Consult to Physician [CONS] Routine Comment: Consulting Provider: JAMAL LYNN Physician Instructions: Reason For Exam: ESRD, Hyperkalemia 05/04/19 23:50 Consult to Wound/ET Nurse [CONS] Routine Reason For Exam: wound eval Primary care physician: [employer]PERATOR Hospitalization Condition: Serious Hospital course: 49-year-old -Algerian male with history of hypertension end-stage renal disease congestive heart failure liver disease with severe ascites and cardiomyopathy presented with increasing shortness of breath and severe respiratory distress. No chest pain. Patient has severe ascites and a catheter from which he drains ascitic fluid everyday. No fever or chills. Patient had malfunctioning catheter S today which was corrected..Patient had hyperkalemia with Potassium 6.6, managed with Insulin, dialysis. By following day he felt better but calcium was still high at 6. However he signed out an left against medical advice without completing treatment. Acute respiratory failure with hypoxia IV antibiotics for possible pneumonia IV low-dose Solu-Medrol Right lower lobe pneumonia Levaquin iv Volume overload Increased ultrafiltration Emergent hemodialysis done End-stage renal disease needing dialysis Continue hemodialysis Hypertension Continue antihypertensives and adjust blood pressure medications Acidosis Ascites For paracentesis Monday Hyperkalemia Improved Patient is allergic to Kayexalate Calcium gluconate and insulin given on initial presentation Patient left against medical advice. Disposition: LEFT AGAINST MED ADVICE - Discharge Diagnoses (1) Acute on chronic systolic (congestive) heart failure Status: Acute (2) ESRD (end stage renal disease) Status: Acute (3) Hyperkalemia Status: Acute (4) Acute and chronic respiratory failure with hypoxia Status: Acute (5) Ascites Status: Acute Qualifiers: Core Measure Documentation - Palliative Care Palliative Care/ Comfort Measures: Not Applicable - Core Measures Any of the following diagnoses?: heart failure - Heart Failure Discharge Requirements DIANE/ARB for LVSD if EF <40%: No Reason for no DIANE/ARB: Hyperkalemia Beta lexy at discharge: Yes Exam - Constitutional Vitals: Temp Pulse Resp BP Pulse Ox 97.4 F L 71 18 136/87 99 05/05/19 04:50 05/05/19 14:37 05/05/19 14:37 05/05/19 04:47 05/05/19 08:52 Plan Follow up with: PRIMARY CAREMD [Primary Care Provider] - 3-5 Days Forms: AMA Form
== END 2019-05-05 17:23 | disposition left against medical advice (07) | DRG 291 ==
LOC: ED 10:24 → 4A 15:59 → OBSVTOIN 15:59
PROVIDERS: ADMIT Internal Medicine; ATTEND Internal Medicine
PROC: 5A1D70Z Performance of Urinary Filtration, Intermittent, Less than 6 Hours Per Day (ICD-10-PCS; principal; 2019-05-03)
PROC: 4A033R1 Measurement of Arterial Saturation, Peripheral, Percutaneous Approach (ICD-10-PCS; 2019-05-03)
PROC: 5A09357 Assistance with Respiratory Ventilation, Less than 24 Consecutive Hours, Continuous Positive Airway Pressure (ICD-10-PCS; 2019-05-03)
PROC: 5A1D70Z Performance of Urinary Filtration, Intermittent, Less than 6 Hours Per Day (ICD-10-PCS; 2019-05-04)
DX: I13.2 Hypertensive heart and chronic kidney disease with heart failure and with stage 5 chronic kidney disease, or end stage renal disease (principal); I50.23 Acute on chronic systolic (congestive) heart failure; J18.9 Pneumonia, unspecified organism; J96.01 Acute respiratory failure with hypoxia; N18.6 End stage renal disease; E87.2 Acidosis; R18.8 Other ascites; N25.81 Secondary hyperparathyroidism of renal origin; I42.9 Cardiomyopathy, unspecified; E87.5 Hyperkalemia; I48.91 Unspecified atrial fibrillation; K74.60 Unspecified cirrhosis of liver; Z53.29 Procedure and treatment not carried out because of patient's decision for other reasons; D63.1 Anemia in chronic kidney disease; Z86.718 Personal history of other venous thrombosis and embolism; Z79.01 Long term (current) use of anticoagulants; Z91.15 Patient's noncompliance with renal dialysis; Z79.899 Other long term (current) drug therapy; Z88.6 Allergy status to analgesic agent; Z88.8 Allergy status to other drugs, medicaments and biological substances; Z82.49 Family history of ischemic heart disease and other diseases of the circulatory system; Z99.2 Dependence on renal dialysis
CPT/HCPCS: 36415; 71045; 78580; 80053; 80061; 80074; 82803; 82962; 83036; 83880; 84484; 85007; 85025; 85379; 85610; 93005; 93010; 94640; 94760; 96374; 96375; G0378; A9540; J0610; J1170; J1644; J1815; J1956; J2920; J7030

== ENCOUNTER 2019-05-14 07:08 | Inpatient (IN) | payer MEDICARE ==
--- NOTE | 2019-05-14 08:30 | Emergency Department Report ---
ED Medical Clearance HPI - General Chief complaint: Abdominal Pain Stated complaint: GENERAL ILLNESS Time Seen by Provider: 05/14/19 08:16 Source: patient, EMS Mode of arrival: Stretcher - History of Present Illness Initial comments: PCP Dr Mora in [facility] PMH a/c THEA ELAINE started HD 05/10; took him self off in 05/11; back on 02/10 last HD Monday med non adherence HTN prior smoker ISHAN; no CPAP recent inc in anxiety; poor sleep; states since his brother 1.5 y ago; denies mental health history- denied SI to me morbid obesity ascites with drain in LLQ placed by Dr Atul Castillo [facility] hernia x 2 drain LLQ for ascites NOK Jamar contreras a/w dad dec "because he left" RX clonidine has been doing coffee enemies for 3 weeks to clear toxins Pt comes to ER stating he hurts all over, has generalized weakness and generalized edema. Pt states he hursts so bad he wants to kill himself. No plan. -: Gradual Alledged Intoxication: No Compliant with Home Medications: Yes Associated Symptoms: shortness of breath Treatments Prior to Arrival: none Home medications: Previous Rx's Medication Instructions Recorded Last Taken Type cloNIDine [Catapres] 0.2 mg PO BID #60 tablet 12/28/18 03/13/19 Rx Allergies/Adverse reactions: Allergies Allergy/AdvReac Type Severity Reaction Status Date / Time labetalol Allergy Vomiting Verified 10/16/18 15:22 polystyrene sulfonate Allergy Unknown Verified 10/16/18 13:24 [From Kayexalate] tramadol [From Ultram] AdvReac Dizziness Verified 03/05/18 15:30 ED Review of Systems ROS: Stated complaint: GENERAL ILLNESS Other details as noted in HPI Comment: All other systems reviewed and negative ED Past Medical Hx - Past Medical History Previous Medical History?: Yes Hx Hypertension: Yes Hx CVA: No Hx Heart Attack/AMI: No Hx Congestive Heart Failure: Yes (diastolic - CHRONIC , CARDIOMYOPATHY) Hx Diabetes: No Hx Deep Vein Thrombosis: No Hx Pulmonary Embolism: No Hx GERD: No Hx Liver Disease: Yes (cirrhosis) Hx Renal Disease: Yes (HD TTS) Hx of Cancer: No Hx Sickle Cell Disease: No Hx Arthritis: No Hx Headaches / Migraines: No Hx Seizures: No Hx Kidney Stones: No Hx Psychiatric Treatment: No Hx Asthma: No Hx COPD: No Hx Tuberculosis: No Hx Dementia: No Hx HIV: No Additional medical history: Abdominal Hernias, right groin hernia, ascites - Surgical History Past Surgical History?: Yes Hx Coronary Stent: No Hx Open Heart Surgery: No Hx Pacemaker: No Hx Internal Defibrillator: No Hx Cholecystectomy: No Hx Appendectomy: No Hx Breast Surgery: No Additional Surgical History: dialysis access left arm, groin hernia repair, - Family History Family history: no significant, other (dad dec) - Social History Smoking Status: Former Smoker Substance Use Type: None - Medications Home Medications: Home Medications Medication Instructions Recorded Confirmed Last Taken Type cloNIDine [Catapres] 0.2 mg PO BID #60 tablet 12/28/18 05/03/19 03/13/19 Rx ED Physical Exam - General Limitations: No Limitations General appearance: alert, in no apparent distress - Head Head exam: Present: atraumatic, normocephalic - Eye Eye exam: Present: normal appearance - ENT ENT exam: Present: mucous membranes moist - Neck Neck exam: Present: normal inspection - Respiratory Respiratory exam: Present: rales. Absent: respiratory distress - Cardiovascular Cardiovascular Exam: Present: regular rate, normal rhythm. Absent: systolic murmur, diastolic murmur, rubs, gallop - GI/Abdominal GI/Abdominal exam: Present: distended, normal bowel sounds, other (llq drain) - Rectal Rectal exam: Present: deferred - Extremities Exam Extremities exam: Present: normal inspection - Back Exam Back exam: Present: normal inspection - Neurological Exam Neurological exam: Present: alert, oriented X3 - Psychiatric Psychiatric exam: Present: normal affect, normal mood - Skin Skin exam: Present: warm, dry, intact, normal color. Absent: rash - Other Other exam information: BLE edema - severe weeping wounds BLE ED Course Vital Signs 05/14/19 05/14/19 07:51 10:54 Temperature 98.4 F Pulse Rate 64 71 Respiratory 20 18 Rate Blood Pressure 140/86 Blood Pressure 148/93 [Right] O2 Sat by Pulse 95 99 Oximetry ED Medical Decision Making - Lab Data Result diagrams: 05/14/19 08:33 05/14/19 08:33 - EKG Data -: EKG Interpreted by Me Rate: bradycardia - EKG Data Interpretation: nonspecific ST-T wave devan - Radiology Data Radiology results: report reviewed, image reviewed - Medical Decision Making Labs 05/14/19 05/14/19 05/14/19 08:33 08:33 08:33 WBC 6.8 RBC 3.57 L Hgb 11.5 L Hct 36.8 MCV 103 H MCH 32 MCHC 31 L RDW 23.9 H Plt Count 177 Lymph % (Auto) 8.4 L [place] % (Auto) 8.9 H Eos % (Auto) 0.8 Baso % (Auto) 1.0 Lymph # 0.6 L [place] # 0.6 Eos # 0.1 Baso # 0.1 Seg Neutrophils % 80.9 H Seg Neutrophils # 5.5 Sodium 133 L Potassium 8.0 H* Chloride 91.4 L Carbon Dioxide 18 L Anion Gap 32 BUN 103 H Creatinine 11.8 H Estimated GFR 6 BUN/Creatinine Ratio 9 Glucose 109 H Calcium 9.4 Phosphorus Total Bilirubin 0.50 Direct Bilirubin 0.3 H Indirect Bilirubin 0.2 AST 32 ALT 20 Alkaline Phosphatase 65 NT-Pro-B Natriuret Pep Total Protein 6.7 Albumin 3.5 L Albumin/Globulin Ratio 1.1 Salicylates < 0.3 L Acetaminophen Plasma/Serum Alcohol 05/14/19 05/14/19 05/14/19 08:33 08:33 08:33 WBC RBC Hgb Hct MCV MCH MCHC RDW Plt Count Lymph % (Auto) [place] % (Auto) Eos % (Auto) Baso % (Auto) Lymph # [place] # Eos # Baso # Seg Neutrophils % Seg Neutrophils # Sodium Potassium Chloride Carbon Dioxide Anion Gap BUN Creatinine Estimated GFR BUN/Creatinine Ratio Glucose Calcium Phosphorus 9.50 H Total Bilirubin Direct Bilirubin Indirect Bilirubin AST ALT Alkaline Phosphatase NT-Pro-B Natriuret Pep > 94657 H Total Protein Albumin Albumin/Globulin Ratio Salicylates Acetaminophen < 5.0 L Plasma/Serum Alcohol < 0.01 Vital Signs 05/14/19 07:51 Temperature 98.4 F Pulse Rate 64 Respiratory 20 Rate Blood Pressure 140/86 O2 Sat by Pulse 95 Oximetry labs noted EKG noted D50/insulin/Ca/bicarb/kaexalate/albuterol in ER for hyperkalemia chest xray noted- volume overload [address] Wyatt- pt will go for emergent HD. AV fistula LUE note: pt needs education regarding his homeopathic use of coffee and protein to cure his CKD and will need to follow with pcp for his other medical problems. Staffed with Dr Montoya. PLAN emergent HD per renal [address] [facility] notified of pt admit/HD- will see - Differential Diagnosis esrd - need emergent HD ED Disposition Clinical Impression: Acute on chronic renal failure, Noncompliance, Hyperkalemia, Edema, Anasarca, Shortness of breath, Ascites Disposition: OP ADMIT IP TO THIS HOSP Is pt being admited?: Yes Does the pt Need Aspirin: No Condition: Stable Time of Disposition: 10:29
[2019-05-14 09:25] LABS: Albumin 3.5 g/dL (3.9-5); Bilirubin,Direct 0.3 mg/dL (0-0.2); Calcium 9.4 mg/dL (8.4-10.2)
[2019-05-14 09:34] LABS: Basophils # (Auto) 0.1 K/mm3 (0.0-0.1); Eosinophils # (Auto) 0.1 K/mm3 (0.0-0.4); Eosinophils % (Auto) 0.8 % (0.0-4.3); Monocytes # (Auto) 0.6 K/mm3 (0.0-0.8); Monocytes % (Auto) 8.9 % (0.0-7.3)
[2019-05-14] MEDS ORDERED: INSULIN REGULAR, HUMAN 100 UNITS/1 ML IV ONE (09:37)
[2019-05-14] MEDS ORDERED: DEXTROSE 50% IN WATER (25GM) 50 ML SYRINGE IV ONE (09:37)
[2019-05-14] MEDS ORDERED: SODIUM POLYSTYRENE 15 GM/60 ML ORAL LIQD PR ONE (09:38)
[2019-05-14] MEDS ORDERED: SODIUM BICARB 8.4% 50 MEQ/50 ML SYRINGE IV ONE (09:38)
[2019-05-14 09:45] LABS: Hematocrit 36.8 % (35.5-45.6); Hemoglobin 11.5 gm/dl (11.8-15.2); Lymphocytes # (Auto) 0.6 K/mm3 (1.2-5.4); Lymphocytes % (Auto) 8.4 % (13.4-35.0); Mean Corpuscular HGB Conc 31 % (32-34); Mean Corpuscular Volume 103 fl (84-94); Platelet Count 177 K/mm3 (140-440); Red Blood Count 3.57 M/mm3 (3.65-5.03); Red Cell Distribution Width 23.9 % (13.2-15.2)
[2019-05-14] MEDS: CALCIUM CHLORIDE 1,000 MG in SODIUM CHLORIDE 0.9% 100 ML IV ONE ×2 (09:57→10:51)
--- NOTE | 2019-05-14 10:06 | XRay Report ---
CHEST 1 VIEW INDICATION: sob COMPARISON: 05/03/2019 FINDINGS: Support devices: None Heart: Mildly enlarged but unchanged Lungs/Pleura: Right lower lobe disease, worrisome for pneumonia, persists but has improved. No signif icant pleural fluid. Left lung remains clear. IMPRESSION: 1. Improving right lower lobe pneumonia. Signer Name: Dariusz Ramos MD Signed: 05/14/2019 10:01 AM Workstation Name: [id number]
[2019-05-14] MEDS ORDERED: ACETAMINOPHEN 500 MG TAB PO ONE (10:10)
[2019-05-14] MEDS ORDERED: SODIUM CHLORIDE 0.9% 100 ML IV PRN (10:21)
[2019-05-14] MEDS ORDERED: ALBUTEROL 2.5 MG/3 ML NEBU IH ONE (10:28)
[2019-05-14] MEDS ORDERED: diphenhydrAMINE 50 MG/ML VIAL IV NR (10:44)
--- NOTE | 2019-05-14 16:34 | History and Physical Report ---
History of Present Illness Date of examination: 05/14/19 Date of admission: 05/14/19 11:10 Chief complaint: Weakness History of present illness: Patient is a 49 -year-old man with a history of polycystic kidney disease causing ESRD on hemodialysis TTS, hypertension, recurrent Ascites and AOCD who initially came to [facility] for paracentesis, ordered by Dr. Vazquez, [employer]. He was walking into [facility] outpatient entrance when he developed severe constant acute onset of generalized weakness with dizziness associated with SOB, exceptional dyspnea but no aggravating or relieving factors. He alerted staff and was brought to the ED. He admits to getting dialysis on Monday but he left early without finishing the entire dialysis session. He just left here AMA on 05/06/2019. He is using coffee enemas for detox, education done. PAST MEDICAL HISTORY: as hpi, history of leaving AMA, polycystic kidney disease, hypertension, end-stage renal disease PAST SURGICAL HISTORY: AV fistula, hernia repair, abd drain SOCIAL HISTORY: Denies alcohol, tobacco, drug FAMILY HISTORY: he denies hypertension, dm, cancers but he never met his dad or know about their family history ROS: Constitutional: denies: fever ENT: denies: throat or neck pain Respiratory: denies: cough, shortness of breath Cardiovascular: denies: chest pain Endocrine: denies unexplained weight loss or gain Gastrointestinal: denies: abdominal pain, nausea Genitourinary: denies: dysuria Rectal: denies no incontinence, no bleeding, no itching, no discharge Musculoskeletal: +swelling, myaglia, muscle weakness Skin: right lower leg breakdown Neurological: denies: headache Hematological/Lymphatic: denies: easy bleeding or easy bruising Allergic/Immunologic: no urticaria, no allergic rhinitis, no anaphylaxis Psych: +sadness or hopelessness, denies SI/HI Medications and Allergies Allergies Allergy/AdvReac Type Severity Reaction Status Date / Time labetalol Allergy Vomiting Verified 10/16/18 15:22 polystyrene sulfonate Allergy Unknown Verified 10/16/18 13:24 [From Kayexalate] tramadol [From Ultram] AdvReac Dizziness Verified 03/05/18 15:30 Home Medications Medication Instructions Recorded Confirmed Last Taken Type cloNIDine [Catapres] 0.2 mg PO BID #60 tablet 12/28/18 05/03/19 03/13/19 Rx Active Meds: Active Medications Sodium Chloride (Nacl 0.9%) 100 mls @ 999 mls/hr IV JULIA PRN PRN Reason: Hypotension Exam - Physical Exam Narrative exam: Gen: WDWN, NAD, Awake, Alert, Orientated HEENT: NCAT, EOMI, PERRL, OP Clear Neck: supple, no adenopathy, no thyromegaly, no JVD CVS/Heart: RRR, normal S1S2, pulses present bilaterally Chest/Lungs: CTA B, Symmetrical chest expansion, good air entry bilaterally GI/Abdomen: soft, NT +distended, good bowel sounds, no guarding or rebound /Bladder: no suprapubic tenderness, no CVA or paraspinal tenderness Extermity/Skin: +leg edema, no obvious rash MSK: FROM x 4 Neuro: CN 2-12 grossly intact, no new focal deficits Psych: calm - Constitutional Vitals: Temp Pulse Resp BP Pulse Ox 98.4 F 85 18 147/93 99 05/14/19 11:55 05/14/19 14:30 05/14/19 11:55 05/14/19 14:30 05/14/19 10:54 Results - Labs CBC & Chem 7: 05/14/19 08:33 05/14/19 08:33 Labs: Laboratory Last Values WBC 6.8 K/mm3 (4.5-11.0) 05/14/19 08:33 RBC 3.57 M/mm3 (3.65-5.03) L 05/14/19 08:33 Hgb 11.5 gm/dl (11.8-15.2) L 05/14/19 08:33 Hct 36.8 % (35.5-45.6) 05/14/19 08:33 MCV 103 fl (84-94) H 05/14/19 08:33 MCH 32 pg (28-32) 05/14/19 08:33 MCHC 31 % (32-34) L 05/14/19 08:33 RDW 23.9 % (13.2-15.2) H 05/14/19 08:33 Plt Count 177 K/mm3 (140-440) 05/14/19 08:33 Lymph % (Auto) 8.4 % (13.4-35.0) L 05/14/19 08:33 [place] % (Auto) 8.9 % (0.0-7.3) H 05/14/19 08:33 Eos % (Auto) 0.8 % (0.0-4.3) 05/14/19 08:33 Baso % (Auto) 1.0 % (0.0-1.8) 05/14/19 08:33 Lymph # 0.6 K/mm3 (1.2-5.4) L 05/14/19 08:33 [place] # 0.6 K/mm3 (0.0-0.8) 05/14/19 08:33 Eos # 0.1 K/mm3 (0.0-0.4) 05/14/19 08:33 Baso # 0.1 K/mm3 (0.0-0.1) 05/14/19 08:33 Seg Neutrophils % 80.9 % (40.0-70.0) H 05/14/19 08:33 Seg Neutrophils # 5.5 K/mm3 (1.8-7.7) 05/14/19 08:33 Sodium 133 mmol/L (137-145) L 05/14/19 08:33 Potassium 8.0 mmol/L (3.6-5.0) H* 05/14/19 08:33 Chloride 91.4 mmol/L (98-107) L 05/14/19 08:33 Carbon Dioxide 18 mmol/L (22-30) L 05/14/19 08:33 Anion Gap 32 mmol/L 05/14/19 08:33 BUN 103 mg/dL (9-20) H 05/14/19 08:33 Creatinine 11.8 mg/dL (0.8-1.5) H 05/14/19 08:33 Estimated GFR 6 ml/min 05/14/19 08:33 BUN/Creatinine Ratio 9 % 05/14/19 08:33 Glucose 109 mg/dL (75-100) H 05/14/19 08:33 Calcium 9.4 mg/dL (8.4-10.2) 05/14/19 08:33 Phosphorus 9.50 mg/dL (2.5-4.5) H 05/14/19 08:33 Total Bilirubin 0.50 mg/dL (0.1-1.2) 05/14/19 08:33 Direct Bilirubin 0.3 mg/dL (0-0.2) H 05/14/19 08:33 Indirect Bilirubin 0.2 mg/dL 05/14/19 08:33 AST 32 units/L (5-40) 05/14/19 08:33 ALT 20 units/L (7-56) 05/14/19 08:33 Alkaline Phosphatase 65 units/L (35-129) 05/14/19 08:33 Ammonia 44.0 umol/L (25-60) 05/14/19 Unknown NT-Pro-B Natriuret Pep > 28709 pg/mL (0-450) H 05/14/19 08:33 Total Protein 6.7 g/dL (6.3-8.2) 05/14/19 08:33 Albumin 3.5 g/dL (3.9-5) L 05/14/19 08:33 Albumin/Globulin Ratio 1.1 % 05/14/19 08:33 Salicylates < 0.3 mg/dL (2.8-20.0) L 05/14/19 08:33 Acetaminophen < 5.0 ug/mL (10.0-30.0) L 05/14/19 08:33 Plasma/Serum Alcohol < 0.01 % (0-0.07) 05/14/19 08:33 Assessment and Plan Assessment and plan: Patient is a 49 -year-old man with a history of polycystic kidney disease causing ESRD on hemodialysis TTS, hypertension, recurrent Ascites and AOCD who initially came to [facility] for paracentesis, ordered by Dr. Vazquez, [employer]. He was walking into [facility] outpatient entrance when he developed severe constant acute onset of generalized weakness with dizziness associated with SOB, exceptional dyspnea but no aggravating or relieving factors. He alerted staff and was brought to the ED. He admits to getting dialysis on Monday but he left early without finishing the entire dialysis session. He just left here AMA on 05/06/2019. He is using coffee enemas for detox, education done. -Weakness due to ESRD with hyperkalemia: consulted [employer] -ESRD needing hemodialysis: needs full session hemodialysis, -Hyperkalemia: treat with hemodialysis, monitor bmp closely -Metabolic acidosis related to above -Ascites most likely related to ESRD: continue present management, possible drainage -Accelerated hypertension: resume home medications -Non-adherence to medical therapy: counseling done -Anemia related to ESRD: EPO if indicated by Nephrology, monitor h/h closely -Depression by history: continue lexapro -DVT prophylaxis: scd and sq heparin preventive health screening 32 minutes advance care planning 16 minutes
--- NOTE | 2019-05-14 17:06 | Consultation ---
History of Present Illness - Reason for Consult Consult date: 05/14/19 end stage renal disease, hyperkalemia - History of Present Illness This is a 49 year old man with ESRD who presents with shortness of breath, and found to have hyperkalemia. Normally, he dialyzes at [facility] in [place]; had last dialysis as usual on 05/11/19 but began having shortness of breath this morning. Notes that he stays for his full sessions and is compliant with his treatments. He does note that he did a "natural body cleanse" yesterday with an enema, and ate a banana to help his constipation. At time of consult, he notes shortness of breath, no chest pain. No nausea, vomiting. Otherwise feels normal. Past History Past Medical History: ESRD Past Surgical History: No surgical history Social history: no significant social history Family history: no significant family history Medications and Allergies Allergies Allergy/AdvReac Type Severity Reaction Status Date / Time labetalol Allergy Vomiting Verified 10/16/18 15:22 polystyrene sulfonate Allergy Unknown Verified 10/16/18 13:24 [From Kayexalate] tramadol [From Ultram] AdvReac Dizziness Verified 03/05/18 15:30 Home Medications Medication Instructions Recorded Confirmed Last Taken Type cloNIDine [Catapres] 0.2 mg PO BID #60 tablet 12/28/18 05/03/19 03/13/19 Rx Active Meds: Active Medications Sodium Chloride (Nacl 0.9%) 100 mls @ 999 mls/hr IV JULIA PRN PRN Reason: Hypotension Review of Systems Constitutional: no weight loss, no fever, no anorexia, no weakness Ears, nose, mouth and throat: no ear pain Cardiovascular: shortness of breath, dyspnea on exertion, no chest pain, no lightheadedness Respiratory: shortness of breath, dyspnea on exertion, no cough, no congestion Gastrointestinal: no abdominal pain, no nausea, no vomiting Genitourinary Male: no dysuria, no hematuria Musculoskeletal: no neck stiffness Integumentary: no rash Neurological: no head injury, no weakness, no headaches Exam - Vital Signs Vital signs: Vital Signs Temp Pulse Resp BP Pulse Ox 98.4 F 64 20 140/86 95 05/14/19 07:51 05/14/19 07:51 05/14/19 07:51 05/14/19 07:51 05/14/19 07:51 - General Appearance General appearance: well-developed, well-nourished, appears stated age, obese, moderate distress EENT: ATNC Neck: Present: neck supple Respiratory: Decreased Breath Sounds Heart: normal heart rate, S1S2 Gastrointestinal: Present: normoactive bowel sounds. Absent: tenderness, distended Integumentary: no rash Neurologic: no focal deficit, alert and oriented x3, CN 3-12 intact Psychiatric: mood/affect appropriate Results - Lab Results 05/14/19 08:33 05/14/19 08:33 Most recent lab results Calcium 9.4 mg/dL (8.4-10.2) 05/14/19 08:33 Phosphorus 9.50 mg/dL (2.5-4.5) H 05/14/19 08:33 Assessment and Plan # ESRD: due for HD today for lytes and volume. Continue HD // or prn while inpatient - access AVF intact - avoid nephrotoxins - renally dose meds - renal diet # Hyperkalemia: urgent HD today; s/p medical management in ED. Recheck post-HD. 2K bath, low K diet. # Acidosis: in setting of ESRD, will adjust HCO3 bath prn # HTN/Volume: BP high, UF as tolerated for volume overload # Anemia: no indication for MAGO with hemoglobin >11 # Secondary Hyperparathyroidism: phosphorus >9, at risk for complications. Discussed with patient. Continue binders while inpatient; will continue vitamin D analogs prn Thank you for this consult, we will continue to follow with you.
[2019-05-14] MEDS ORDERED: ACETAMINOPHEN 325 MG TAB PO PRN (22:48)
[2019-05-14] MEDS ORDERED: ONDANSETRON 4 MG/2 ML INJ IV PRN (23:06)
[2019-05-14] MEDS ORDERED: MORPHINE 2 MG/1 ML INJ IV ONE (23:12)
[2019-05-15] MEDS ORDERED: oxyCODONE /ACETAMINOPHEN 5-325MG TAB PO ONE (04:44)
--- NOTE | 2019-05-15 09:26 | Event Note ---
Date: 05/15/19 Patient with history of volume overload. He has an abdominal tunneled drainage catheter with some degree of valvular dysfunction. Patient will need to have the valve exchanged during his hospitalization to allow home drainage of his ascitic fluid. We will plan on this tomorrow.
--- NOTE | 2019-05-15 11:35 | Progress Note ---
Assessment and Plan # ESRD: Continue HD // or prn while inpatient; no labs today, would recheck to ensure no indication for HD today - access AVF intact - avoid nephrotoxins - renally dose meds - renal diet # Hyperkalemia: urgent HD yesterday, s/p medical management in ED. Recheck post-HD. 2K bath, low K diet. # Acidosis: in setting of ESRD, will adjust HCO3 bath prn # HTN/Volume: improved s/p UF removal. Continue UF as tolerated for volume ov erload # Anemia: no indication for MAGO with hemoglobin >11 # Secondary Hyperparathyroidism: phosphorus >9, at risk for complications. Discussed with patient. Continue binders while inpatient; will continue vitamin D analogs prn # Ascites: appreciate Dr. Castillo input, plan for valve exchange today Thank you for this consult, we will continue to follow with you. Subjective Date of service: 05/15/19 Principal diagnosis: hyperkalemia Interval history: No acute events noted overnight. Had HD yesterday, no issues noted. No cramping, no dizziness. Breathing better today. No chest pain. He notes that he drained his abdominal fluid as well last night. Does acknowledge that he ate two bananas and had ensure prior to his hospital visit, which likely contributed to his hyperkalemia. Objective - Exam Narrative Exam: General appearance: well-developed, well-nourished, appears stated age, obese, no distress, sitting up in chair EENT: ATNC Neck: Present: neck supple Respiratory: Clear Breath Sounds Heart: normal heart rate, S1S2 Gastrointestinal: Present: normoactive bowel sounds. Absent: tenderness, distended Integumentary: no rash Neurologic: no focal deficits, alert and oriented x3, CN 3-12 intact Psychiatric: mood/affect appropriate - Vital Signs Vital signs: Vital Signs - 12hr 05/15/19 05/15/19 00:07 05:06 Temperature 98.1 F Pulse Rate 74 Respiratory 20 Rate Blood Pressure 156/94 O2 Sat by Pulse 98 97 Oximetry - Lab 05/14/19 08:33 05/14/19 08:33 Most recent lab results Calcium 9.4 mg/dL (8.4-10.2) 05/14/19 08:33 Phosphorus 9.50 mg/dL (2.5-4.5) H 05/14/19 08:33 Medications & Allergies - Medications Allergies/Adverse Reactions: Allergies labetalol Allergy (Verified 10/16/18 15:22) Vomiting pt also reports drastic drop in HR polystyrene sulfonate [From Kayexalate] Allergy (Verified 10/16/18 13:24) Unknown tramadol [From Ultram] Adverse Reaction (Verified 03/05/18 15:30) Dizziness Home Medications: Home Medications Medication Instructions Recorded Confirmed Last Taken Type cloNIDine [Catapres] 0.2 mg PO BID #60 tablet 12/28/18 05/03/19 03/13/19 Rx Active Medications: Generic Name Dose Route Start Last Admin Trade Name Freq PRN Reason Stop Dose Admin Acetaminophen 650 mg 05/14/19 22:48 Tylenol PO Q4H PRN Pain, Mild (1-3) Sodium Chloride 100 mls @ 999 mls/hr 05/14/19 10:21 Nacl 0.9% IV JULIA PRN Hypotension Ondansetron HCl 4 mg 05/14/19 23:06 Zofran IV Q8H PRN Nausea And Vomiting
[2019-05-15] MEDS ORDERED: SODIUM CHLORIDE 0.9% 100 ML IV PRN (11:38)
--- NOTE | 2019-05-15 12:06 | Progress Note ---
Assessment and Plan Assessment and plan: Patient is a 49 -year-old man with a history of polycystic kidney disease causing ESRD on hemodialysis TTS, hypertension, recurrent Ascites and AOCD who initially came to [facility] for paracentesis, ordered by Dr. Vazquez, [employer]. He was walking into [facility] outpatient entrance when he developed severe constant acute onset of generalized weakness with dizziness associated with SOB, exceptional dyspnea but no aggravating or relieving factors. He alerted staff and was brought to the ED. He admits to getting dialysis on Monday but he left early without finishing the entire dialysis session. He just left here AMA on 05/06/2019. He is using coffee enemas for detox, education done. -Weakness due to ESRD with hyperkalemia: consulted [employer] treat with HD -ESRD needing hemodialysis: needs full session hemodialysis, -Hyperkalemia: treat with hemodialysis, monitor bmp closely -Metabolic acidosis related to above -Ascites most likely related to ESRD: continue present management, possible drainage change -Accelerated hypertension: resume home medications -Non-adherence to medical therapy: counseling done -Anemia related to ESRD: EPO if indicated by Nephrology, monitor h/h closely -Depression by history: continue lexapro -Suspected peripheral neuropathy: add renal dose Lyrica -Insomnia: add Melantonin -DVT prophylaxis: scd and sq heparin Disposition: continue inpatient care, still volume overload, BMP pending, potassium level pending, tomorrow change abdominal drain d/w Dr. Castillo, Patient removed 1 liters of ascitic fluid last night. History Interval history: Patient was seen and examined. Follow-up on current diagnosis of fluid overload. No overnight events reported to me. Patient denies any chest pain, shortness breath, nausea/vomiting or severe headaches. Imaging, nursing note, chart, labs and old chart reviewed. Discussed with patient. He complains of tingling, burning sharp pains down both legs for long time and insomina. Hospitalist Physical - Physical exam Narrative exam: Gen: WDWN, NAD, Awake, Alert, Orientated HEENT: NCAT, EOMI, PERRL, OP Clear Neck: supple, no adenopathy, no thyromegaly, no JVD CVS/Heart: RRR, normal S1S2, pulses present bilaterally Chest/Lungs: CTA B, Symmetrical chest expansion, good air entry bilaterally GI/Abdomen: soft, NT +distended with LLQ drain, good bowel sounds, no guarding or rebound /Bladder: no suprapubic tenderness, no CVA or paraspinal tenderness Extermity/Skin: +leg edema, no obvious rash MSK: FROM x 4 Neuro: CN 2-12 grossly intact, no new focal deficits Psych: calm - Constitutional Vitals: Temp Pulse Resp BP Pulse Ox 98.1 F 74 20 153/94 93 05/15/19 05:06 05/15/19 11:17 05/15/19 11:17 05/15/19 11:17 05/15/19 11:17 Results - Labs CBC & Chem 7: 05/14/19 08:33 05/14/19 08:33 Labs: Laboratory Last Values WBC 6.8 K/mm3 (4.5-11.0) 05/14/19 08:33 RBC 3.57 M/mm3 (3.65-5.03) L 05/14/19 08:33 Hgb 11.5 gm/dl (11.8-15.2) L 05/14/19 08:33 Hct 36.8 % (35.5-45.6) 05/14/19 08:33 MCV 103 fl (84-94) H 05/14/19 08:33 MCH 32 pg (28-32) 05/14/19 08:33 MCHC 31 % (32-34) L 05/14/19 08:33 RDW 23.9 % (13.2-15.2) H 05/14/19 08:33 Plt Count 177 K/mm3 (140-440) 05/14/19 08:33 Lymph % (Auto) 8.4 % (13.4-35.0) L 05/14/19 08:33 Duchesne % (Auto) 8.9 % (0.0-7.3) H 05/14/19 08:33 Eos % (Auto) 0.8 % (0.0-4.3) 05/14/19 08:33 Baso % (Auto) 1.0 % (0.0-1.8) 05/14/19 08:33 Lymph # 0.6 K/mm3 (1.2-5.4) L 05/14/19 08:33 Duchesne # 0.6 K/mm3 (0.0-0.8) 05/14/19 08:33 Eos # 0.1 K/mm3 (0.0-0.4) 05/14/19 08:33 Baso # 0.1 K/mm3 (0.0-0.1) 05/14/19 08:33 Seg Neutrophils % 80.9 % (40.0-70.0) H 05/14/19 08:33 Seg Neutrophils # 5.5 K/mm3 (1.8-7.7) 05/14/19 08:33 Sodium 133 mmol/L (137-145) L 05/14/19 08:33 Potassium 8.0 mmol/L (3.6-5.0) H* 05/14/19 08:33 Chloride 91.4 mmol/L (98-107) L 05/14/19 08:33 Carbon Dioxide 18 mmol/L (22-30) L 05/14/19 08:33 Anion Gap 32 mmol/L 05/14/19 08:33 BUN 103 mg/dL (9-20) H 05/14/19 08:33 Creatinine 11.8 mg/dL (0.8-1.5) H 05/14/19 08:33 Estimated GFR 6 ml/min 05/14/19 08:33 BUN/Creatinine Ratio 9 % 05/14/19 08:33 Glucose 109 mg/dL (75-100) H 05/14/19 08:33 POC Glucose 131 (70-105) H 05/15/19 11:24 Calcium 9.4 mg/dL (8.4-10.2) 05/14/19 08:33 Phosphorus 9.50 mg/dL (2.5-4.5) H 05/14/19 08:33 Total Bilirubin 0.50 mg/dL (0.1-1.2) 05/14/19 08:33 Direct Bilirubin 0.3 mg/dL (0-0.2) H 05/14/19 08:33 Indirect Bilirubin 0.2 mg/dL 05/14/19 08:33 AST 32 units/L (5-40) 05/14/19 08:33 ALT 20 units/L (7-56) 05/14/19 08:33 Alkaline Phosphatase 65 units/L (35-129) 05/14/19 08:33 Ammonia 44.0 umol/L (25-60) 05/14/19 Unknown NT-Pro-B Natriuret Pep > 76704 pg/mL (0-450) H 05/14/19 08:33 Total Protein 6.7 g/dL (6.3-8.2) 05/14/19 08:33 Albumin 3.5 g/dL (3.9-5) L 05/14/19 08:33 Albumin/Globulin Ratio 1.1 % 05/14/19 08:33 Salicylates < 0.3 mg/dL (2.8-20.0) L 05/14/19 08:33 Acetaminophen < 5.0 ug/mL (10.0-30.0) L 05/14/19 08:33 Plasma/Serum Alcohol < 0.01 % (0-0.07) 05/14/19 08:33 Active Medications - Current Medications Current Medications: Generic Name Dose Route Start Last Admin Trade Name Freq PRN Reason Stop Dose Admin Acetaminophen 650 mg 05/14/19 22:48 Tylenol PO Q4H PRN Pain, Mild (1-3) Sodium Chloride 100 mls @ 999 mls/hr 05/15/19 11:38 Nacl 0.9% IV JULIA PRN Hypotension Ondansetron HCl 4 mg 05/14/19 23:06 Zofran IV Q8H PRN Nausea And Vomiting
--- NOTE | 2019-05-15 13:42 | Consultation ---
History of Present Illness - Reason for Consult Consult date: 05/15/19 Reason for consult: Mental health assessment and management - Chief Complaint Chief complaint: Weakness - History of Present Psychiatric Illness In my interview with the patient, is sitting on side of bed eating. A/O x 4. The patient is dressed appropriately. He appears calm and is cooperative. The patient says he's been depressed and anxious this past month. He says he's in "pain and hasn't been able to rest." He says when his brother passed two years ago, that's when he started having difficulty sleeping. He says he feels better at the time of the interview because his pain was under control. Mr. Ledbetter denies SI/HI at this time, but says 2 days ago he "felt like giving up because I'm hurting so bad." He says he was anxious and started "shaking, sweating, and felt like someone was choking him." He says the only thing that calms him down is "marijuana." Mr. Ledbetter says he only "smokes it about once a month." He also complains of hearing voices that sounds like himself. He says he catches himself having conversations with people who are not there. He says his has noticed it too. Mr. Ledbetter says he also "sees himself doing things. Once I saw a cup in my hand but when I went to drink it was not a cup there. He says his appetite has been "so-so, because I've been fasting." PAST PSYCHIATRIC HISTORY: Diagnoses: Depression, ADRIENNE Suicide attempts or Self-harm behavior: Denies Prior psychiatric hospitalizations: Denies Substance Abuse history: Denies Previous psychiatric medications tried: "something for anxiety and depression" Outpatient treatment: Denies, states when he was admitted medically at first of year PAST MEDICAL HISTORY: polycystic kidney disease causing ESRD on hemodialysis TTS, hypertension, recurrent Ascites and AOCD Family Psychiatric History None reported or documented SOCIAL HISTORY Marital Status: Living Arrangements: With spouse Employment Status: Disabled Access to guns/weapons: denies Education: "1st year of college" History of Abuse: Denies Legal History: Denies REVIEW OF SYSTEMS Constitutional: Negative for weight loss ENT: Negative for stridor Respiratory: Negative for cough or hemoptysis All other systems reviewed and are negative MENTAL STATUS General Appearance and Behavior: age appropriate. Dressed appropriately, good eye contact Cooperation: cooperative Psychomotor Behavior: within normal limits Mood: Depressed Affect and affective range: Congruent with stated mood Thought Process: goal oriented Thought Content: A/V Hallucinations Speech: Normal tone and pace Intellectual Functioning Unable to assess Suicidal Ideation: Denies Homicidal Ideation: Denies Impulse Control: Intact Insight and Judgment: Good Memory: Good Attention: Ability to focus Orientation: person, place, time and situation Asessment Major Depression w/psychotic features Generalized Anxiety Disorder RECOMMENDATIONS MEDICATIONS: Prozac 10mg po daily for depression and anxiety Trazodone 50mg po qhs for insomnia Seroquel 25mg po BID for perception disturbances MEDICAL: Per primary team DISPOSITION: May discharge once medically cleared. Send patient home on prescribed psych medications. Patient verbalizes importance of calling 911 or SUICIDE hotline if SI/HI return. LEGAL STATUS: Voluntary Follow up with PCP or outpatient psych in 7 to 10 days Will sign off on this patient. I have reviewed this treatment plan, including potential risks and benefits of medications, with the patient and/or family members and relevant hospital providers. Please contact with any questions and/or concerns. Thank you for this consult Medications and Allergies Allergies Allergy/AdvReac Type Severity Reaction Status Date / Time labetalol Allergy Vomiting Verified 10/16/18 15:22 polystyrene sulfonate Allergy Unknown Verified 10/16/18 13:24 [From Kayexalate] tramadol [From Ultram] AdvReac Dizziness Verified 03/05/18 15:30 Home Medications Medication Instructions Recorded Confirmed Last Taken Type cloNIDine [Catapres] 0.2 mg PO BID #60 tablet 12/28/18 05/03/19 03/13/19 Rx Active Meds: Active Medications Acetaminophen (Tylenol) 650 mg PO Q4H PRN PRN Reason: Pain, Mild (1-3) Sodium Chloride (Nacl 0.9%) 100 mls @ 999 mls/hr IV JULIA PRN PRN Reason: Hypotension Melatonin (Melatonin) 5 mg PO QHS PRN PRN Reason: Sleep Ondansetron HCl (Zofran) 4 mg IV Q8H PRN PRN Reason: Nausea And Vomiting Pregabalin (Pregabalin) 25 mg PO QHS [facility] Mental Status Exam - Vital signs Last Vital Signs Temp 98.1 F 05/15/19 05:06 Pulse 74 05/15/19 11:17 Resp 20 05/15/19 11:17 BP 153/94 05/15/19 11:17 Pulse Ox 93 05/15/19 11:17 Results Result Diagrams: 05/14/19 08:33 05/14/19 08:33 Abnormal lab results 05/15/19 05/15/19 Range/Units 08:17 11:24 POC Glucose 134 H 131 H (70-105) All other labs normal.
[2019-05-15 15:33] LABS: Calcium 8.8 mg/dL (8.4-10.2)
[2019-05-15 15:35] LABS: Creatine Kinase MB 23.5 ng/mL (0.0-4.0)
[2019-05-15 16:08] LABS: Chol/HDL Ratio 2.87 %
[2019-05-15] MEDS: QUEtiapine 25 MG TAB PO SCH ×2 (17:08→21:10)
[2019-05-15] MEDS: FLUoxetine 10 MG TAB PO SCH (17:09)
[2019-05-15] MEDS ORDERED: MELATONIN 5 MG TAB PO PRN (22:00)
[2019-05-15] MEDS ORDERED: traZODone 50 MG TAB PO SCH (22:00)
[2019-05-15] MEDS ORDERED: PREGABALIN 75 MG CAP PO SCH (22:00)
--- NOTE | 2019-05-16 06:40 | Discharge Summary ---
Providers - Providers Date of Admission: 05/15/19 12:00 Date of discharge: 05/16/19 Attending physician: REBA CAREY Primary care physician: [employer] Hospitalization Condition: Stable Hospital course: Patient is a 49 -year-old man with a history of polycystic kidney disease causing ESRD on hemodialysis TTS, hypertension, recurrent Ascites and AOCD who initially came to [facility] for paracentesis, ordered by Dr. Vazquez, [employer]. He was walking into [facility] outpatient entrance when he developed severe constant acute onset of generalized weakness with dizziness associated with SOB, exceptional dyspnea but no aggravating or relieving factors. He alerted staff and was brought to the ED. He admits to getting dialysis on Monday but he left early without finishing the entire dialysis session. He just left here AMA on 05/06/2019. He is using coffee enemas for detox, education done. Date of procedure: 05/16/19 Pre-op diagnosis: malfunctioning tunneled peritoneal catheter Post-op diagnosis: same Procedure: Exchange of valve. The procedure was performed at bedside and the patient's room. The catheter tubing was sterilized using alcohol wipes. The catheter was then occluded using the included clip. The catheter was then cut just beyond the current valve. A new Aspira valve was then seated into the the catheter tubing. The catheter was then redressed. The patient may be discharged home from an interventional radiology standpoint. Anesthesia: none Surgeon: JEREMIAH CERDA Discharge Diagnoses: -Weakness due to ESRD with hyperkalemia: consulted [employer] treat with HD -ESRD needing hemodialysis: needs full session hemodialysis, -Hyperkalemia: treat with hemodialysis, monitor bmp closely -Metabolic acidosis related to above -Refractory Recurrent Ascites with LLQ drain most likely related to ESRD: s/p Patient self removed ~1 liters of ascitic fluid Monday night, drainage change -Accelerated hypertension: resume home medications -Non-adherence to medical therapy: counseling done -Anemia related to ESRD: EPO if indicated by Nephrology, monitor h/h closely -Depression by history: continue lexapro -Suspected peripheral neuropathy: added renal dose Lyrica -Insomnia: added Melantonin Pscyh new diagnoses: -Major Depression w/psychotic features: Prozac 10mg po daily for depression and anxiety, Trazodone 50mg po qhs for insomnia, Seroquel 25mg po BID for perception disturbances -Generalized Anxiety Disorder: prozac Patient says the trazodone/lyrica/seroquel at night led to the best night sleep in over a year and the lyrica helped with the nerve pain so that he could sleep. He slept for 6 hours and is very thankful Disposition: DC-01 TO HOME OR SELFCARE Time spent for discharge: 32 minutes Core Measure Documentation - Palliative Care Palliative Care/ Comfort Measures: Not Applicable - Core Measures Any of the following diagnoses?: none - VTE Discharge Requirements Deep Vein Thrombosis/Pulmonary Embolism Present on Admission: No Has pt received <5 days of overlap therapy or INR<2.0: No Anticoagulant overlap therapy prescribed at discharge: No Contraindication No Overlap Therapy order at DC: Not Indicated Exam - Physical Exam Narrative exam: Gen: WDWN, NAD, Awake, Alert, Orientated HEENT: NCAT, EOMI, PERRL, OP Clear Neck: supple, no adenopathy, no thyromegaly, no JVD CVS/Heart: RRR, normal S1S2, pulses present bilaterally Chest/Lungs: CTA B, Symmetrical chest expansion, good air entry bilaterally GI/Abdomen: soft, NT +distended with LLQ drain, good bowel sounds, no guarding or rebound /Bladder: no suprapubic tenderness, no CVA or paraspinal tenderness Extermity/Skin: +leg edema, no obvious rash MSK: FROM x 4 Neuro: CN 2-12 grossly intact, no new focal deficits Psych: calm - Constitutional Vitals: Temp Pulse Resp BP Pulse Ox 97.5 F L 63 22 152/91 97 05/16/19 05:18 05/16/19 05:18 05/16/19 05:18 05/16/19 05:18 05/16/19 06:03 Plan Activity: other (no strenous activities) Diet: renal Special Instructions: record daily weights Additional Instructions: No coffee enema. No herbals without formally discussing with [employer]. Take medication as prescribe Follow up with: JESSIE PERRY MD [Staff Physician] - 7 Days PRIMARY MD ANA LUISA [Primary Care Provider] - 3-5 Days JOSÉ MIGUEL HENRY MD [Staff Physician] - 7 Days JEREMIAH CERDA MD [Staff Physician] - 6 Weeks Prescriptions: traZODone [Desyrel] 50 mg PO QHS #30 tablet Melatonin [Melatonin 5MG TAB] 5 mg PO QHS PRN #30 tablet PRN Reason: Sleep Pregabalin 25 mg PO QHS #30 capsule cloNIDine [Catapres] 0.2 mg PO BID #60 tablet FLUoxetine [PROzac] 10 mg PO QAM #30 tablet QUEtiapine [SEROquel] 25 mg PO BID #60 tablet
--- NOTE | 2019-05-16 08:50 | Procedure Note ---
Date of procedure: 05/16/19 Pre-op diagnosis: malfunctioning tunneled peritoneal catheter Post-op diagnosis: same Procedure: Exchange of valve. The procedure was performed at bedside and the patient's room. The catheter tubing was sterilized using alcohol wipes. The catheter was then occluded using the included clip. The catheter was then cut just beyond the current valve. A new Aspira valve was then seated into the the catheter tubing. The catheter was then redressed. The patient may be discharged home from an interventional radiology standpoint. Anesthesia: none Surgeon: JEREMIAH CERDA Pathology: none Condition: stable Disposition: floor
[2019-05-16] MEDS: FLUoxetine 10 MG TAB PO SCH (09:56)
[2019-05-16] MEDS: QUEtiapine 25 MG TAB PO SCH (09:56)
--- NOTE | 2019-05-16 13:05 | Progress Note ---
Assessment and Plan # ESRD: Continue HD // or prn while inpatient; due today - access AVF intact - avoid nephrotoxins - renally dose meds - renal diet # Hyperkalemia: urgent HD on admission, s/p medical management in ED. 2K bath, low K diet. # Acidosis: in setting of ESRD, will adjust HCO3 bath prn # HTN/Volume: improved s/p UF removal. Continue UF as tolerated for volume overload # Anemia: no indication for MAGO with hemoglobin >11 # Secondary Hyperparathyroidism: phosphorus >9, at risk for complications. Discussed with patient. Continue binders while inpatient; will continue vitamin D analogs prn # Ascites: appreciate Dr. Castillo input, s/p valve exchange today Thank you for this consult, we will continue to follow with you. Subjective Date of service: 05/16/19 Principal diagnosis: hyperkalemia Interval history: No acute events noted overnight. Seen on HD today. No issues noted. No cramping, no dizziness. No chest pain. Had abdominal drain exchange by Dr. Castillo. Objective - Exam Narrative Exam: General appearance: well-developed, well-nourished, appears stated age, obese, no distress EENT: ATNC Neck: Present: neck supple Respiratory: Clear Breath Sounds Heart: normal heart rate, S1S2 Gastrointestinal: Present: normoactive bowel sounds. Absent: tenderness, distended Integumentary: no rash Neurologic: no focal deficits, alert and oriented x3, CN 3-12 intact Psychiatric: mood/affect appropriate - Vital Signs Vital signs: Vital Signs - 12hr 05/16/19 05/16/19 05/16/19 05:18 06:03 10:30 Temperature 97.5 F L 98.2 F Pulse Rate 63 66 Respiratory 22 20 Rate Blood Pressure 152/91 163/87 O2 Sat by Pulse 89 97 Oximetry 05/16/19 05/16/19 05/16/19 10:35 10:45 11:00 Temperature Pulse Rate 69 72 74 Respiratory Rate Blood Pressure 157/87 140/85 153/85 O2 Sat by Pulse Oximetry 05/16/19 05/16/19 05/16/19 11:15 11:30 11:45 Temperature Pulse Rate 77 72 71 Respiratory Rate Blood Pressure 159/98 158/84 155/80 O2 Sat by Pulse Oximetry 05/16/19 05/16/19 05/16/19 12:00 12:15 12:30 Temperature Pulse Rate 75 71 70 Respiratory Rate Blood Pressure 143/81 137/74 133/72 O2 Sat by Pulse Oximetry Seen on HD. Qb 400ml/min via AVF. - Lab 05/14/19 08:33 05/15/19 14:43 Most recent lab results Calcium 8.8 mg/dL (8.4-10.2) 05/15/19 14:43 Phosphorus 9.50 mg/dL (2.5-4.5) H 05/14/19 08:33 Medications & Allergies - Medications Allergies/Adverse Reactions: Allergies labetalol Allergy (Verified 10/16/18 15:22) Vomiting pt also reports drastic drop in HR polystyrene sulfonate [From Kayexalate] Allergy (Verified 10/16/18 13:24) Unknown tramadol [From Ultram] Adverse Reaction (Verified 03/05/18 15:30) Dizziness Home Medications: Home Medications Medication Instructions Recorded Confirmed Last Taken Type Acetaminophen [Acetaminophen TAB] 1 tab PO Q4H PRN #14 tablet 05/16/19 Unknown Rx FLUoxetine [PROzac] 10 mg PO QAM #30 tablet 05/16/19 Unknown Rx Melatonin [Melatonin 5MG TAB] 5 mg PO QHS PRN #30 tablet 05/16/19 Unknown Rx Pregabalin 25 mg PO QHS #30 capsule 05/16/19 Unknown Rx QUEtiapine [SEROquel] 25 mg PO BID #60 tablet 05/16/19 Unknown Rx cloNIDine [Catapres] 0.2 mg PO BID #60 tablet 05/16/19 Unknown Rx traZODone [Desyrel] 50 mg PO QHS #30 tablet 05/16/19 Unknown Rx Active Medications: Generic Name Dose Route Start Last Admin Trade Name Freq PRN Reason Stop Dose Admin Acetaminophen 650 mg 05/14/19 22:48 Tylenol PO Q4H PRN Pain, Mild (1-3) Fluoxetine HCl 10 mg 05/15/19 15:00 05/16/19 09:56 Prozac PO 10 mg QDAY FOSTER Administration Sodium Chloride 100 mls @ 999 mls/hr 05/15/19 11:38 Nacl 0.9% IV JULIA PRN Hypotension Melatonin 5 mg 05/15/19 22:00 Melatonin PO QHS PRN Sleep Ondansetron HCl 4 mg 05/14/19 23:06 Zofran IV Q8H PRN Nausea And Vomiting Pregabalin 25 mg 05/15/19 22:00 05/15/19 21:10 Pregabalin PO 25 mg QHS FOSTER Administration Quetiapine Fumarate 25 mg 05/15/19 15:00 05/16/19 09:56 Seroquel PO 25 mg BID FOSTER Administration Trazodone HCl 50 mg 05/15/19 22:00 05/15/19 21:10 Desyrel PO 50 mg QHS FOSTER Administration
[2019-05-16 15:15] VITALS: BP 142/86
== END 2019-05-16 15:15 | disposition home or self-care (01) | DRG 640 ==
LOC: ED 07:08 → 3A 11:10 → OBSVTOIN 05-15 12:00
PROVIDERS: ADMIT Internal Medicine; ATTEND Internal Medicine
PROC: 5A1D70Z Performance of Urinary Filtration, Intermittent, Less than 6 Hours Per Day (ICD-10-PCS; 2019-05-14)
PROC: 0J2TXYZ Change Other Device in Trunk Subcutaneous Tissue and Fascia, External Approach (ICD-10-PCS; principal; 2019-05-16)
PROC: 5A1D70Z Performance of Urinary Filtration, Intermittent, Less than 6 Hours Per Day (ICD-10-PCS; 2019-05-16)
DX: E87.5 Hyperkalemia (principal); N18.6 End stage renal disease; T85.611A Breakdown (mechanical) of intraperitoneal dialysis catheter, initial encounter; R18.8 Other ascites; I12.0 Hypertensive chronic kidney disease with stage 5 chronic kidney disease or end stage renal disease; N25.81 Secondary hyperparathyroidism of renal origin; I42.9 Cardiomyopathy, unspecified; E87.2 Acidosis; Y83.8 Other surgical procedures as the cause of abnormal reaction of the patient, or of later complication, without mention of misadventure at the time of the procedure; E87.70 Fluid overload, unspecified; D63.1 Anemia in chronic kidney disease; F32.9 Major depressive disorder, single episode, unspecified; G62.9 Polyneuropathy, unspecified; G47.00 Insomnia, unspecified; F41.1 Generalized anxiety disorder; G47.33 Obstructive sleep apnea (adult) (pediatric); E66.01 Morbid (severe) obesity due to excess calories; Y92.89 Other specified places as the place of occurrence of the external cause; Z99.2 Dependence on renal dialysis; Z79.899 Other long term (current) drug therapy; Z91.19 Patient's noncompliance with other medical treatment and regimen
CPT/HCPCS: 36415; 71045; 80048; 80061; 80076; 80320; 82140; 82550; 82553; 82962; 83880; 84100; 84484; 85025; 93005; 93010; 96374; G0378; G0480; J1815; J2270; J2405

== ENCOUNTER 2019-05-23 16:08 | Inpatient (IN) | payer MEDICARE ==
--- NOTE | 2019-05-23 16:22 | Emergency Department Report ---
ED General Adult HPI - General Chief complaint: Weakness Stated complaint: SOB Time Seen by Provider: 05/23/19 16:14 Source: patient, EMS (verbal report received from EMS.EMS records not available at time of chart dictation.), RN notes reviewed, old records reviewed Mode of arrival: Stretcher Limitations: Physical Limitation - History of Present Illness Initial comments: This is a 49-year-old gentleman. I have evaluated this patient in the past. He follows with nephrology, Dr. Vazquez His past medical history includes noncompliance, end-stage renal disease, on hemodialysis Monday, , Monday, hypertension, recurrent ascites, polycystic kidney disease, indwelling peritoneal catheter patient is brought to the hospital by emergency medical services for shortness of breath. He is on CPAP in the field. The patient was admitted to this hospital and signed out AGAINST MEDICAL ADVICE 05/09/2019. The patient has chronic abdominal distention, chronic lower extremity edema, and chronic shortness of breath. His symptoms are improved with application of BiPAP in the emergency room. History is limited secondary to patient having elle rtness of breath. He is moving 4 extremities spontaneously. He has chronic pain. He makes no complaint of headache or neck pain or chest pain. He believes that his abdominal distention is slightly improved with compared to baseline. -: Gradual Quality: other Consistency: other Improves with: other Worsens with: other Associated Symptoms: shortness of breath, weakness - Related Data Previous Rx's Medication Instructions Recorded Last Taken Type Acetaminophen [Acetaminophen TAB] 1 tab PO Q4H PRN #14 tablet 05/16/19 Unknown Rx FLUoxetine [PROzac] 10 mg PO QAM #30 tablet 05/16/19 Unknown Rx Melatonin [Melatonin 5MG TAB] 5 mg PO QHS PRN #30 tablet 05/16/19 Unknown Rx Pregabalin 25 mg PO QHS #30 capsule 05/16/19 Unknown Rx QUEtiapine [SEROquel] 25 mg PO BID #60 tablet 05/16/19 Unknown Rx cloNIDine [Catapres] 0.2 mg PO BID #60 tablet 05/16/19 Unknown Rx traZODone [Desyrel] 50 mg PO QHS #30 tablet 05/16/19 Unknown Rx Allergies Allergy/AdvReac Type Severity Reaction Status Date / Time labetalol Allergy Vomiting Verified 10/16/18 15:22 polystyrene sulfonate Allergy Unknown Verified 10/16/18 13:24 [From Kayexalate] tramadol [From Ultram] AdvReac Dizziness Verified 03/05/18 15:30 ED Review of Systems ROS: Stated complaint: SOB Other details as noted in HPI Comment: Unobtainable due to pts medical conditions Constitutional: weakness Respiratory: shortness of breath, wheezing Cardiovascular: edema Gastrointestinal: denies: vomiting Musculoskeletal: myalgia Neurological: weakness Psychiatric: anxiety ED Past Medical Hx - Past Medical History Hx Hypertension: Yes Hx CVA: No Hx Heart Attack/AMI: No Hx Congestive Heart Failure: No Hx Diabetes: No Hx Deep Vein Thrombosis: No Hx Pulmonary Embolism: No Hx GERD: Yes Hx Liver Disease: No Hx Renal Disease: No Hx Sickle Cell Disease: No Hx Arthritis: No Hx Headaches / Migraines: No Hx Seizures: No Hx Kidney Stones: No Hx Psychiatric Treatment: No Hx Asthma: No Hx COPD: No Hx Tuberculosis: No Hx Dementia: No Hx HIV: No Additional medical history: Abdominal Hernias, right groin hernia, ascites - Surgical History Hx Coronary Stent: No Hx Open Heart Surgery: No Hx Pacemaker: No Hx Internal Defibrillator: No Hx Cholecystectomy: No Hx Appendectomy: No Hx Breast Surgery: No Additional Surgical History: dialysis access left arm, groin hernia repair, - Social History Smoking Status: Never Smoker - Medications Home Medications: Home Medications Medication Instructions Recorded Confirmed Last Taken Type Acetaminophen [Acetaminophen TAB] 1 tab PO Q4H PRN #14 tablet 05/16/19 Unknown Rx FLUoxetine [PROzac] 10 mg PO QAM #30 tablet 05/16/19 Unknown Rx Melatonin [Melatonin 5MG TAB] 5 mg PO QHS PRN #30 tablet 05/16/19 Unknown Rx Pregabalin 25 mg PO QHS #30 capsule 05/16/19 Unknown Rx QUEtiapine [SEROquel] 25 mg PO BID #60 tablet 05/16/19 Unknown Rx cloNIDine [Catapres] 0.2 mg PO BID #60 tablet 05/16/19 Unknown Rx traZODone [Desyrel] 50 mg PO QHS #30 tablet 05/16/19 Unknown Rx ED Physical Exam - General Limitations: Physical Limitation General appearance: alert, anxious, in distress, obese - Head Head exam: Present: atraumatic, normocephalic - Eye Eye exam: Present: normal appearance, EOMI. Absent: nystagmus - ENT ENT exam: Present: normal exam, normal orophraynx, mucous membranes moist, normal external ear exam - Neck Neck exam: Present: normal inspection, full ROM. Absent: tenderness, meningismus - Respiratory Respiratory exam: Present: respiratory distress, rales, rhonchi, accessory muscle use. Absent: stridor - Cardiovascular Cardiovascular Exam: Present: regular rate, normal rhythm, normal heart sounds, JVD. Absent: tachycardia, irregular rhythm, diastolic murmur, rubs, gallop - GI/Abdominal GI/Abdominal exam: Present: soft, distended, other (peritoneal dialysis catheter, noted, without redness, pus or streaking). Absent: tenderness, guarding, rebound, rigid, pulsatile mass - Rectal Rectal exam: Present: deferred - Extremities Exam Extremities exam: Present: normal inspection (skin ulceration noted to the right distal lateral lower extremity. There is chronic venous stasis.), pedal edema, other (2+ pulses noted in the bilateral upper and lower extremities. The pelvis is stable. There is no long bony tenderness. The muscular compartments are soft. There is no redness, pus, streaking or erythema.). Absent: calf tenderness - Back Exam Back exam: Present: normal inspection. Absent: tenderness, CVA tenderness (R), CVA tenderness (L), paraspinal tenderness, vertebral tenderness - Neurological Exam Neurological exam: Present: alert, other (there is no facial droop. The tongue is midline. Extraocular movements are intact bilaterally. Speaking in full sentences. Hearing is grossly intact. 5 out of 5 strength bilateral upper and lower extremities. Sensation is intact to light touch bilateral upper and lower extremities.) - Psychiatric Psychiatric exam: Present: anxious - Skin Skin exam: Present: warm ED Course Vital Signs 05/23/19 05/23/19 05/23/19 16:25 16:26 16:47 Temperature 98 F Pulse Rate 79 63 Respiratory 32 H 32 H 27 H Rate Blood Pressure 126/84 Blood Pressure 117/77 [Right] O2 Sat by Pulse 90 100 Oximetry O2 Sat by Pulse Oximetry [ Anterior Bilateral Throughout] 05/23/19 05/23/19 05/23/19 19:55 20:00 20:15 Temperature 98 F Pulse Rate 69 69 73 Respiratory 27 H Rate Blood Pressure 137/76 130/71 106/62 Blood Pressure [Right] O2 Sat by Pulse Oximetry O2 Sat by Pulse 90 Oximetry [ Anterior Bilateral Throughout] 05/23/19 05/23/19 05/23/19 20:30 20:45 21:00 Temperature Pulse Rate 75 80 78 Respiratory Rate Blood Pressure 124/72 130/79 133/74 Blood Pressure [Right] O2 Sat by Pulse Oximetry O2 Sat by Pulse Oximetry [ Anterior Bilateral Throughout] - Reevaluation(s) Reevaluation #1: 05/23/19 16:40 Differential diagnosis, including but not limited to: CHF, fluid overload, azote tiffanie, uremia, pneumonia, noncompliant Assessment and plan: 49-year-old gentleman, familiar to myself, presenting with shortness of breath, rales, hypoxia, requiring initiation of positive pressure ventilation. Saturating well on BiPAP, looking more comfortable. Laboratory studies, EKG pending, we have placed a page out to his anti tank missileman, plan to admit for fluid overload once initial data points have resulted. Reevaluation #2: 05/23/19 16:53 Dr Meneses to follow 05/23/19 17:18 Reevaluation #3: 05/23/19 19:19 There was a rather long delay and acquisition of patient's laboratory studies, secondary to technical difficulty. Potassium is 8.4. Hyperkalemia cocktail is ordered. We have emergently reached out to the aforementioned anti tank missileman to arrange emergent hemodialysis. Hospital physician is paced to arrange admission. Dr Santana advises admission to Dr Rivas service Reevaluation #4: 05/23/19 19:20 Elevated troponin reviewed and appreciated, this is likely a type II troponin leak. It appears to be consistent with prior. Reevaluation #5: 05/23/19 21:26 Dr Cohen to admit ED Medical Decision Making - Lab Data Result diagrams: 05/23/19 Unknown 05/23/19 Unknown Vital Signs 05/23/19 05/23/19 16:25 16:26 Temperature 98 F Pulse Rate 79 Respiratory 32 H 32 H Rate Blood Pressure 117/77 [Right] O2 Sat by Pulse 90 Oximetry Vital Signs 05/23/19 05/23/19 05/23/19 16:25 16:26 16:47 Temperature 98 F Pulse Rate 79 63 Respiratory 32 H 32 H 27 H Rate Blood Pressure 126/84 Blood Pressure 117/77 [Right] O2 Sat by Pulse 90 100 Oximetry Lab Results 05/23/19 05/23/19 05/23/19 Range/Units Unknown Unknown Unknown WBC 6.6 (4.5-11.0) K/mm3 RBC 3.03 L (3.65-5.03) M/mm3 Hgb 10.0 L (11.8-15.2) gm/dl Hct 30.9 L (35.5-45.6) % MCV 102 H (84-94) fl MCH 33 H (28-32) pg MCHC 32 (32-34) % RDW 21.8 H (13.2-15.2) % Plt Count 146 (140-440) K/mm3 PT 14.7 (12.2-14.9) Sec. INR 1.13 (0.87-1.13) Sodium 137 (137-145) mmol/L Chloride 95.3 L (98-107) mmol/L Carbon Dioxide 21 L (22-30) mmol/L Anion Gap 29 mmol/L BUN 86 H (9-20) mg/dL Creatinine 11.8 H (0.8-1.5) mg/dL Estimated GFR 6 ml/min BUN/Creatinine Ratio 7 % Glucose 100 (75-100) mg/dL Calcium 8.4 (8.4-10.2) mg/dL Magnesium 2.30 (1.7-2.3) mg/dL Total Bilirubin 0.50 (0.1-1.2) mg/dL ALT 21 (7-56) units/L Alkaline Phosphatase 63 (35-129) units/L Total Creatine Kinase 1618 H (55-170) units/L Troponin T 1.260 H* (0.00-0.029) ng/mL Total Protein 6.7 (6.3-8.2) g/dL Albumin 3.3 L (3.9-5) g/dL Albumin/Globulin Ratio 1.0 % - EKG Data -: EKG Interpreted by Md - EKG Data 05/23/19 19:20 The EKG shows an accelerated junctional rhythm, 73 bpm, leftward axis deviation, nonspecific T-wave abnormalities, interventricular conduction delay, not consistent with ST elevation myocardial infarction. - Radiology Data Radiology results: report reviewed, image reviewed Print Report Referring Physician: HOLLIS TOLEDO Patient Name: RENALDO WAYNE Date of : 1970 Sex: Male Report Date: 2019-05-23 Report Status: Finalized Findings [facility] [address] [place] [address] XRay Report Signed Patient: RENALDO WAYNE MR#: [id number] : 1970 Acct:[id number] Age/Sex: 49 / M ADM Date: 05/23/19 Loc: ED Attending Dr: Ordering Physician: HOLLIS TOLEDO MD Date of Service: 05/23/19 Procedure(s): XR chest 1V ap Accession Number(s): [id number] cc: HOLLIS TOLEDO MD Fluoro Time In Minutes: CHEST 1 VIEW INDICATION: sob htn. COMPARISON: 05/14/2019. FINDINGS: Support devices: None. Heart: Stable cardiomegaly. Lungs/Pleura: Mild edema remains with more localized infiltrate at the right mid/lower zone. Additional findings: None. IMPRESSION: Persistent edema and right lower lobe pneumonia. Edema is mildly worsened. Signer Name: Matthew Ward MD Signed: 05/23/2019 4:42 PM Workstation Name: [id number] Transcribed By: ES Dictated By: Matthew Ward MD Electronically Authenticated By: Matthew Ward MD Signed Date/Time: 05/23/19 164 DD/ 1641 Critical Care Time: Yes Critical care time in (mins) excluding proc time.: 45 Critical care attestation.: If time is entered above; I have spent that time in minutes in the direct care of this critically ill patient, excluding procedure time. ED Disposition Clinical Impression: ESRD (end stage renal disease), CHF (congestive heart failure), Obesity (BMI 30-39.9), Hyperkalemia, Right lower lobe pneumonia, Edema, Abdominal distension, Acute respiratory distress, Noncompliance with medication regimen, Junctional rhythm Disposition: OP ADMIT IP TO THIS HOSP Is pt being admited?: Yes Does the pt Need Aspirin: Yes Condition: Critical
--- NOTE | 2019-05-23 16:46 | XRay Report ---
CHEST 1 VIEW INDICATION: sob htn. COMPARISON: 05/14/2019. FINDINGS: Support devices: None. Heart: Stable cardiomegaly. Lungs/Pleura: Mild edema remains with more localized infiltrate at the right mid/lower zone. Additional findings: None. IMPRESSION: Persistent edema and right lower lobe pneumonia. Edema is mildly worsened. Signer Name: Matthew Ward MD Signed: 05/23/2019 4:42 PM Workstation Name: [id number]
[2019-05-23 18:51] LABS: Hematocrit 30.9 % (35.5-45.6); Mean Corpuscular HGB Conc 32 % (32-34); Mean Corpuscular Volume 102 fl (84-94); Platelet Count 146 K/mm3 (140-440); Red Blood Count 3.03 M/mm3 (3.65-5.03); Red Cell Distribution Width 21.8 % (13.2-15.2)
[2019-05-23 18:52] LABS: INR 1.13 (0.87-1.13)
[2019-05-23 19:05] LABS: Alanine Aminotransferase 21 units/L (7-56); Albumin 3.3 g/dL (3.9-5); BUN/Creatinine Ratio 7; Blood Urea Nitrogen 86 mg/dL (9-20); Calcium 8.4 mg/dL (8.4-10.2); Hemolysis Index 51
[2019-05-23] MEDS ORDERED: INSULIN REGULAR, HUMAN 100 UNITS/1 ML IV ONE (19:16)
[2019-05-23] MEDS ORDERED: CALCIUM GLUCONATE 2,000 MG in SODIUM CHLORIDE 0.9% 100 ML IV ONE (19:16)
[2019-05-23] MEDS ORDERED: SODIUM POLYSTYRENE 15 GM/60 ML ORAL LIQD PR ONE (19:16)
[2019-05-23] MEDS ORDERED: DEXTROSE 50% IN WATER (25GM) 50 ML VIAL IV PRN (19:16)
[2019-05-23] MEDS ORDERED: ALBUTEROL 2.5 MG/3 ML NEBU IH ONE (19:16)
[2019-05-23] MEDS ORDERED: ASPIRIN 300 MG RECT SUPP PR ONE (19:22)
[2019-05-23] MEDS ORDERED: SODIUM CHLORIDE 0.9% 100 ML IV PRN ×3 (19:31→20:00)
[2019-05-23 20:44] LABS: Chol/HDL Ratio 2.48 %; HDL Cholesterol 64 mg/dL (40-59); LDL Cholesterol,Direct 101 mg/dL (50-130)
[2019-05-23] MEDS ORDERED: ONDANSETRON 4 MG/2 ML INJ IV PRN (22:01)
[2019-05-23] MEDS ORDERED: MAGNESIUM HYDROXIDE (MOM) ORAL LIQD UDC PO PRN (22:01)
[2019-05-23] MEDS ORDERED: ACETAMINOPHEN 325 MG TAB PO PRN (22:01)
[2019-05-24] MEDS ORDERED: ACETAMINOPHEN 325 MG TAB ONE (02:08)
[2019-05-24] MEDS ORDERED: MORPHINE 4 MG/1 ML INJ IV ONE (02:09)
[2019-05-24] MEDS ORDERED: MORPHINE 2 MG/1 ML INJ ONE (02:46)
--- NOTE | 2019-05-24 03:11 | History and Physical Report ---
History of Present Illness Date of examination: 05/23/19 Date of admission: 05/23/19 19:22 Chief complaint: Shortness of breath History of present illness: 49-year-old -Chinese male with known history of end-stage renal disease on dialysis Monday and Monday follows up with Dr. Vazquez, history of hypertension, history of chronic ascites history of noncompliance with medications presents to the emergency room today with complaints of shortness of breath. He also indicates that he has been having progressive swelling of his abdomen and his lower extremities. He denies any chest pain, no nausea vomiting, no abdominal pain and no diarrhea. He was found to be in respiratory distress upon arrival in the emergency room and was initially placed on BiPAP with improvement. Work-up in the emergency room reveals a right lower lobe pneumonia on chest x- ray, he was also found to be hyperkalemic without any EKG changes. He had insulin and glucose, calcium gluconate, and albuterol in the emergency room. Carroting [employer] Offbearer was consulted and patient scheduled for immediate dialysis. Past History Past Medical History: ESRD, hypertension Past Surgical History: Other (Left arm AV fistula, left inguinal hernia repair in the past.) Social history: no significant social history Family history: no significant family history Medications and Allergies Allergies Allergy/AdvReac Type Severity Reaction Status Date / Time labetalol Allergy Vomiting Verified 10/16/18 15:22 polystyrene sulfonate Allergy Unknown Verified 10/16/18 13:24 [From Kayexalate] tramadol [From Ultram] AdvReac Dizziness Verified 03/05/18 15:30 Home Medications Medication Instructions Recorded Confirmed Last Taken Type Acetaminophen [Acetaminophen TAB] 1 tab PO Q4H PRN #14 tablet 05/16/19 05/24/19 Unknown Rx FLUoxetine [PROzac] 10 mg PO QAM #30 tablet 05/16/19 05/24/19 Unknown Rx Melatonin [Melatonin 5MG TAB] 5 mg PO QHS PRN #30 tablet 05/16/19 05/24/19 Unkno wn Rx Pregabalin 25 mg PO QHS #30 capsule 05/16/19 05/24/19 Unknown Rx QUEtiapine [SEROquel] 25 mg PO BID #60 tablet 05/16/19 05/24/19 Unknown Rx cloNIDine [Catapres] 0.2 mg PO BID #60 tablet 05/16/19 05/24/19 Unknown Rx traZODone [Desyrel] 50 mg PO QHS #30 tablet 05/16/19 05/24/19 Unknown Rx Active Meds: Active Medications Acetaminophen (Tylenol) 650 mg PO Q4H PRN PRN Reason: Pain MILD(1-3)/Fever >100.5/SWAIN Last Admin: 05/24/19 02:07 Dose: 650 mg Documented by: Dextrose (D50w (25gm) Vial) 50 gm IV Q30MIN PRN; Protocol PRN Reason: Hypoglycemia Sodium Chloride (Nacl 0.9%) 100 mls @ 999 mls/hr IV JULIA PRN PRN Reason: Hypotension Ceftriaxone Sodium (Rocephin/Ns 2 Gm/100 Ml) 2 gm in 100 mls @ 200 mls/hr IV Q24HR FOSTER; Protocol Azithromycin 500 mg/ Sodium (Chloride) 250 mls @ 250 mls/hr IV Q24HR FOSTER; Protocol Magnesium Hydroxide (Milk Of Magnesia) 30 ml PO Q4H PRN PRN Reason: Constipation Ondansetron HCl (Zofran) 4 mg IV Q8H PRN PRN Reason: Nausea And Vomiting Sodium Chloride (Sodium Chloride Flush Syringe 10 Ml) 10 ml IV BID FOSTER Sodium Chloride (Sodium Chloride Flush Syringe 10 Ml) 10 ml IV PRN PRN PRN Reason: LINE FLUSH Review of Systems Respiratory: cough, shortness of breath Exam - Constitutional Vitals: Temp Pulse Resp BP Pulse Ox 98 F 83 21 145/106 97 05/23/19 22:50 05/23/19 23:15 05/23/19 23:15 05/23/19 23:15 05/23/19 23:15 General appearance: Present: mild distress, well-nourished - EENT Eyes: Present: PERRL, EOM intact ENT: hearing intact, clear oral mucosa, dentition normal - Neck Neck: Present: supple, normal ROM - Respiratory Respiratory effort: normal Respiratory: bilateral: diminished - Cardiovascular Rhythm: regular Heart Sounds: Present: S1 & S2 - Extremities Extremities: no ischemia, pulses intact, Full ROM Extremity abnormal: edema (2+ edema bilaterally), ulceration (Areas of open ulcers on lower one third of the right leg. Multiple small blisters on both lower extremities.) Peripheral Pulses: within normal limits - Abdominal General gastrointestinal: Present: soft, non-tender, distended, other (Peritoneal tube in place) - Musculoskeletal Musculoskeletal: strength equal bilaterally - Psychiatric Psychiatric: appropriate mood/affect, intact judgment & insight, cooperative - Neurologic Neurologic: CNII-XII intact, moves all extremities Results - Labs CBC & Chem 7: 05/24/19 04:02 05/24/19 04:02 Labs: Abnormal lab results 05/23/19 05/23/19 Range/Units Unknown Unknown RBC 3.03 L (3.65-5.03) M/mm3 Hgb 10.0 L (11.8-15.2) gm/dl Hct 30.9 L (35.5-45.6) % MCV 102 H (84-94) fl MCH 33 H (28-32) pg RDW 21.8 H (13.2-15.2) % Potassium 8.4 H* (3.6-5.0) mmol/L Chloride 95.3 L (98-107) mmol/L Carbon Dioxide 21 L (22-30) mmol/L BUN 86 H (9-20) mg/dL Creatinine 11.8 H (0.8-1.5) mg/dL Total Creatine Kinase 1618 H (55-170) units/L Troponin T 1.260 H* (0.00-0.029) ng/mL NT-Pro-B Natriuret Pep > 56330 H (0-450) pg/mL Albumin 3.3 L (3.9-5) g/dL HDL Cholesterol 64 H (40-59) mg/dL Assessment and Plan - Patient Problems (1) Acute respiratory distress Current Visit: Yes Status: Acute Plan to address problem: Possibly secondary to volume overload. Patient has been scheduled for dialysis. (2) ESRD (end stage renal disease) Current Visit: Yes Status: Acute Plan to address problem: Patient on dialysis Monday and Saturdays. He follows up with Dr. Vazquez. (3) Hyperkalemia Current Visit: Yes Status: Acute Plan to address problem: We will monitor on telemetry. Will monitor chemistry after dialysis. Patient has had insulin and glucose, calcium gluconate and albuterol treatments in the emergency room. (4) Right lower lobe pneumonia Current Visit: Yes Status: Acute Plan to address problem: Patient placed on empiric IV antibiotics. We await blood culture results.. (5) Ascites Current Visit: No Status: Acute Qualifiers: Plan to address problem: She has history of recurrent ascites. He has a peritoneal tube in place for drainage. (6) DVT prophylaxis Current Visit: No Status: Acute Plan to address problem: He is placed on subcutaneous heparin. (7) Noncompliance Current Visit: No Status: Acute Plan to address problem: Patient encouraged on compliance with his medications and dialysis. (8) Full code status Current Visit: Yes Status: Acute
[2019-05-24 04:28] LABS: Basophils # (Auto) 0.1 K/mm3 (0.0-0.1); Basophils % (Auto) 1.4 % (0.0-1.8); Eosinophils # (Auto) 0.1 K/mm3 (0.0-0.4); Eosinophils % (Auto) 1.4 % (0.0-4.3); Hematocrit 31.8 % (35.5-45.6); Hemoglobin 10.3 gm/dl (11.8-15.2); Lymphocytes # (Auto) 0.9 K/mm3 (1.2-5.4); Lymphocytes % (Auto) 14.8 % (13.4-35.0); Mean Corpuscular HGB Conc 32 % (32-34); Mean Corpuscular Volume 102 fl (84-94); Monocytes # (Auto) 0.7 K/mm3 (0.0-0.8); Monocytes % (Auto) 11.7 % (0.0-7.3); Platelet Count 166 K/mm3 (140-440); Red Blood Count 3.13 M/mm3 (3.65-5.03)
[2019-05-24 04:40] LABS: INR 1.18 (0.87-1.13)
[2019-05-24 04:41] LABS: Partial Thromboplastin Time 31.3 Sec. (24.2-36.6)
[2019-05-24 04:42] LABS: Red Cell Distribution Width 21.3 % (13.2-15.2)
[2019-05-24 04:50] LABS: Calcium 8.3 mg/dL (8.4-10.2)
[2019-05-24] MEDS ORDERED: guaiFENesin 100 MG/5 ML ORAL LIQD ONE (06:51)
[2019-05-24] MEDS: guaiFENesin 100 MG/5 ML ORAL LIQD PO PRN ×2 (06:52→23:01)
[2019-05-24] MEDS ORDERED: QUEtiapine 25 MG TAB ONE (14:30)
[2019-05-24] MEDS: cloNIDine 0.2 MG TAB PO SCH ×3 (15:09→23:12)
[2019-05-24] MEDS: QUEtiapine 25 MG TAB PO SCH ×2 (15:10→23:03)
[2019-05-24] MEDS: cefTRIAXone/NS 2 GM/100 ML 2 GM/100 ML BAG IV SCH (15:10)
[2019-05-24] MEDS: FLUoxetine 10 MG TAB PO SCH (15:10)
--- NOTE | 2019-05-24 16:41 | Event Note ---
Date: 05/24/19 Patient seen and reevaluated Downgraded to Med surg with remote tele
[2019-05-24] MEDS: AZITHROMYCIN 500 MG in SODIUM CHLORIDE 0.9% 250ML 250 ML IV SCH (18:00)
--- NOTE | 2019-05-24 19:44 | Consultation ---
History of Present Illness - Reason for Consult Consult date: 05/24/19 end stage renal disease, hyperkalemia Requesting physician: HOLLIS TOLEDO - History of Present Illness 49-year-old male known to me from previous hospitalizations with end-stage renal disease secondary to autosomal dominant polycystic kidney disease. Patient has had frequent hospitalizations with fluid overload, ascites and accelerated hypertension due to noncompliance with his dialysis regimen and also with sodium and fluid restrictions. Patient receives paracentesis periodically because of the ascites related to fluid overload. Presents on account of shortness of breath, bilateral LE swelling and abdominal distention of a few days' duration. He actually has these symptoms chronically but they worsened over the last few days. He says his dialysis schedule for this week due to the day being on Monday was changed to Monday and Monday only. Was only meant o dialyze twice this week. He got dialysis on Monday with no problems but last night he developed worsening shortness of breath and swelling and had to come to the hospital for further management. He was coughing but it's unproductive. No hemoptysis or wheezing. No fever or chills. No chest pain. His son had a cold and he thinks may have caught it. In the ER patient was dyspneic and was placed on BiPAP. Labs showed potassium quite high at 8.4 mmol per liter. Chest X showed cardiomegaly with pulmonary edema and possible right lower lobe infiltrate. I was called about the patient and ordered stat dialysis yesterday. Repeat potassium this morning is still high at 6 mmol per liter and so patient is being dialyzed again today. Past History Past Medical History: anemia, ESRD, hypertension, other (ascites) Past Surgical History: hernia repair, Other (Left arm AV fistula, left inguinal hernia repair in the past. Paracentesis) Social history: no significant social history, lives with family (lives with his and children). denies: smoking, alcohol abuse, prescription drug abuse, IV drug use Family history: no significant family history, other (he never met his father. Mother had anxiety disorder. One brother of complications of meningitis) Medications and Allergies Allergies Allergy/AdvReac Type Severity Reaction Status Date / Time labetalol Allergy Vomiting Verified 10/16/18 15:22 polystyrene sulfonate Allergy Unknown Verified 10/16/18 13:24 [From Kayexalate] tramadol [From Ultram] AdvReac Dizziness Verified 03/05/18 15:30 Home Medications Medication Instructions Recorded Confirmed Last Taken Type Acetaminophen [Acetaminophen TAB] 1 tab PO Q4H PRN #14 tablet 05/16/19 05/24/19 Unknown Rx FLUoxetine [PROzac] 10 mg PO QAM #30 tablet 05/16/19 05/24/19 Unknown Rx Melatonin [Melatonin 5MG TAB] 5 mg PO QHS PRN #30 tablet 05/16/19 05/24/19 Unknown Rx Pregabalin 25 mg PO QHS #30 capsule 05/16/19 05/24/19 Unknown Rx QUEtiapine [SEROquel] 25 mg PO BID #60 tablet 05/16/19 05/24/19 Unknown Rx cloNIDine [Catapres] 0.2 mg PO BID #60 tablet 05/16/19 05/24/19 Unknown Rx traZODone [Desyrel] 50 mg PO QHS #30 tablet 05/16/19 05/24/19 Unknown Rx Active Meds: Active Medications Acetaminophen (Tylenol) 650 mg PO Q4H PRN PRN Reason: Pain MILD(1-3)/Fever >100.5/SWAIN Last Admin: 05/24/19 02:07 Dose: 650 mg Documented by: Clonidine HCl (Catapres) 0.2 mg PO BID [facility] Last Admin: 05/24/19 15:09 Dose: Not Given Documented by: Dextrose (D50w (25gm) Vial) 50 gm IV Q30MIN PRN; Protocol PRN Reason: Hypoglycemia Fluoxetine HCl (Prozac) 10 mg PO QAM [facility] Last Admin: 05/24/19 15:10 Dose: Not Given Documented by: Guaifenesin (Robitussin) 200 mg PO Q6H PRN PRN Reason: Cough Last Admin: 05/24/19 06:52 Dose: 200 mg Documented by: Sodium Chloride (Nacl 0.9%) 100 mls @ 999 mls/hr IV JULIA PRN PRN Reason: Hypotension Ceftriaxone Sodium (Rocephin/Ns 2 Gm/100 Ml) 2 gm in 100 mls @ 200 mls/hr IV Q24HR [facility]; Protocol Last Admin: 05/24/19 15:10 Dose: 200 mls/hr Documented by: Azithromycin 500 mg/ Sodium (Chloride) 250 mls @ 250 mls/hr IV Q24HR [facility]; Protocol Last Admin: 05/24/19 18:00 Dose: 250 mls/hr Documented by: Magnesium Hydroxide (Milk Of Magnesia) 30 ml PO Q4H PRN PRN Reason: Constipation Melatonin (Melatonin) 5 mg PO QHS PRN PRN Reason: Sleep Ondansetron HCl (Zofran) 4 mg IV Q8H PRN PRN Reason: Nausea And Vomiting Pregabalin (Pregabalin) 25 mg PO QHS FOSTER Quetiapine Fumarate (Seroquel) 25 mg PO BID [facility] Last Admin: 05/24/19 15:10 Dose: 25 mg Documented by: Sodium Chloride (Sodium Chloride Flush Syringe 10 Ml) 10 ml IV BID [facility] Last Admin: 05/24/19 15:10 Dose: 10 ml Documented by: Sodium Chloride (Sodium Chloride Flush Syringe 10 Ml) 10 ml IV PRN PRN PRN Reason: LINE FLUSH Trazodone HCl (Desyrel) 50 mg PO QHS [facility] Review of Systems All systems: negative (Constitutional: no fever or chills. Appetite is diminished but no weight loss. HEENT: No sore throat or sinus drainage no hearing or vision impairment . Cardiovascular: See history of present illness. Respiratory: See history of present illness. No hemoptysis or wheezing. Gastrointestinal: No nausea, vomiting, diarrhea, admits to abdominal pain on coughing. No hematemesis or melena. Genitourinary: Is still makes some urine. No frequency urgency dysuria or hematuria. hematologic: Admits to bleeding from blisters in his feet. No abnormal bruising. Integumentary: no pruritus but admits to rash and blisters in his feet. Neurological: No headache no focal w eakness or numbness, no syncope or seizures. Admits to tingling in both feet. Musculoskeletal: No joint pains but admits to stiffness stiffness. Psychiatry: Admits to both anxiety and depression) Exam - Vital Signs Vital signs: Vital Signs Pulse Pulse Ox 87 89 05/23/19 16:18 05/23/19 16:18 - Physical Exam Narrative exam: Overweight middle-aged -Gabonese male lying in bed in mild to moderate respiratory distress on mild exertion HEENT: NCAT, pink oral mucous membrane Neck: Supple, jugular venous distention + CVS: S1S2 RRR with no murmur, rub or gallop Chest: Diminished breath sounds in both lower zones Abdomen: Distended, edema abdominal wall, soft, nontender, no organomegaly, bowel sounds are present Extremities: 2-3+ edema both legs with lichenification of the skin and hyperpigmentation Skin: As noted above with thickening and pigmentary changes Neuro: Awake, alert no focal deficits Results - Lab Results 05/24/19 04:02 05/24/19 04:02 Most recent lab results Calcium 8.3 mg/dL (8.4-10.2) L 05/24/19 04:02 Magnesium 2.30 mg/dL (1.7-2.3) 05/23/19 Unknown Assessment and Plan - Patient Problems (1) Acute respiratory failure with hypoxia Current Visit: No Status: Acute Plan to address problem: Acute pulmonary edema secondary to missed dialysis and sodium and fluid dietary indiscretion. Fluid removal on dialysis and then reevaluate. Need to continue educating patient about sodium and fluid restriction (2) Acute hyperkalemia Current Visit: No Status: Acute Plan to address problem: Start hemodialysis was done last night on a low potassium bath. Dialyze again on low potassium bath and follow-up potassium in the morning (3) Volume overload Current Visit: No Status: Acute Qualifiers: Hypervolemia type: unspecified Qualified Code(s): E87.70 - Fluid overload, unspecified Plan to address problem: Fluid restriction. Follow-up volume status with fluid removal on dialysis (4) Right lower lobe pneumonia Current Visit: Yes Status: Acute Plan to address problem: Continue antibiotics per primary attending (5) Anemia in chronic kidney disease, on chronic dialysis Current Visit: No Status: Chronic Plan to address problem: Give erythropoietin on dialysis. (6) Ascites Current Visit: No Status: Chronic Qualifiers: Ascites type: other type Qualified Code(s): R18.8 - Other ascites Plan to address problem: Evaluate ascites and get paracentesis if significant (7) ESRD (end stage renal disease) on dialysis Current Visit: No Status: Chronic Plan to address problem: Daily dialysis for fluid removal and solute clearance and then reevaluate.
[2019-05-24 20:20] LABS: Calcium 8.5 mg/dL (8.4-10.2)
[2019-05-24] MEDS: traZODone 50 MG TAB PO SCH (23:03)
[2019-05-24] MEDS: PREGABALIN 25 MG CAP PO SCH (23:03)
[2019-05-25] MEDS: MELATONIN 5 MG TAB PO PRN (02:12)
[2019-05-25] MEDS: cefTRIAXone/NS 2 GM/100 ML 2 GM/100 ML BAG IV SCH (13:01)
[2019-05-25] MEDS: FLUoxetine 10 MG TAB PO SCH ×2 (13:02→13:12)
[2019-05-25] MEDS: QUEtiapine 25 MG TAB PO SCH ×2 (13:02→22:14)
[2019-05-25] MEDS: cloNIDine 0.2 MG TAB PO SCH (13:03)
[2019-05-25] MEDS: guaiFENesin 100 MG/5 ML ORAL LIQD PO PRN (14:37)
[2019-05-25] MEDS: AZITHROMYCIN 500 MG in SODIUM CHLORIDE 0.9% 250ML 250 ML IV SCH (14:37)
[2019-05-25] MEDS ORDERED: SODIUM CHLORIDE 0.9% 100 ML IV PRN (15:01)
--- NOTE | 2019-05-25 15:05 | Progress Note ---
Assessment and Plan - Patient Problems (1) Acute respiratory failure with hypoxia Current Visit: No Status: Acute Plan to address problem: Acute pulmonary edema secondary to missed dialysis and sodium and fluid dietary indiscretion. Hemodialysis/isolated ultrafiltration again today for fluid removal. Need to continue educating patient about sodium and fluid restriction (2) Acute hyperkalemia Current Visit: No Status: Acute Plan to address problem: Potassium has improved with dialysis. Continue to monitor (3) Volume overload Current Visit: No Status: Acute Qualifiers: Hypervolemia type: unspecified Qualified Code(s): E87.70 - Fluid overload, unspecified Plan to address problem: Fluid restriction. Follow-up volume status with fluid removal on dialysis (4) Right lower lobe pneumonia Current Visit: Yes Status: Acute Plan to address problem: Continue antibiotics per primary attending (5) Anemia in chronic kidney disease, on chronic dialysis Current Visit: No Status: Chronic Plan to address problem: Give erythropoietin on dialysis. (6) Ascites Current Visit: No Status: Chronic Qualifiers: Ascites type: other type Qualified Code(s): R18.8 - Other ascites Plan to address problem: Evaluate ascites and get paracentesis if significant (7) ESRD (end stage renal disease) on dialysis Current Visit: No Status: Chronic Plan to address problem: Daily dialysis for fluid removal and solute clearance and then reevaluate. Subjective Date of service: 05/25/19 Principal diagnosis: end-stage renal disease with fluid overload Interval history: Patient seen lying in bed. Has no new complaints. Still has shortness of breath and swelling. Objective - Exam Narrative Exam: Overweight middle-aged -[place]an male lying in bed in mild to moderate respiratory distress on mild exertion HEENT: NCAT, pink oral mucous membrane Neck: Supple, jugular venous distention + CVS: S1S2 RRR with no murmur, rub or gallop Chest: Diminished breath sounds in both lower zones Abdomen: Distended, edema abdominal wall, soft, nontender, no organomegaly, bowel sounds are present Extremities: 2-3+ edema both legs with lichenification of the skin and hyperpigmentation. Also with erythema in the legs Skin: As noted above with thickening and pigmentary changes Neuro: Awake, alert no focal deficits - Vital Signs Vital signs: Vital Signs - 12hr 05/25/19 05/25/19 05/25/19 04:44 11:16 11:28 Temperature 98.1 F 98.3 F Pulse Rate 74 73 70 Respiratory 24 24 Rate Blood Pressure 117/79 118/74 O2 Sat by Pulse 99 86 95 Oximetry - Lab 05/24/19 04:02 05/24/19 19:55 Most recent lab results Calcium 8.5 mg/dL (8.4-10.2) 05/24/19 19:55 Magnesium 2.30 mg/dL (1.7-2.3) 05/23/19 Unknown Medications & Allergies - Medications Allergies/Adverse Reactions: Allergies labetalol Allergy (Verified 10/16/18 15:22) Vomiting pt also reports drastic drop in HR polystyrene sulfonate [From Kayexalate] Allergy (Verified 10/16/18 13:24) Unknown tramadol [From Ultram] Adverse Reaction (Verified 03/05/18 15:30) Dizziness Home Medications: Home Medications Medication Instructions Recorded Confirmed Last Taken Type Acetaminophen [Acetaminophen TAB] 1 tab PO Q4H PRN #14 tablet 05/16/19 05/24/19 Unknown Rx FLUoxetine [PROzac] 10 mg PO QAM #30 tablet 05/16/19 05/24/19 Unknown Rx Melatonin [Melatonin 5MG TAB] 5 mg PO QHS PRN #30 tablet 05/16/19 05/24/19 Unknown Rx Pregabalin 25 mg PO QHS #30 capsule 05/16/19 05/24/19 Unknown Rx QUEtiapine [SEROquel] 25 mg PO BID #60 tablet 05/16/19 05/24/19 Unknown Rx cloNIDine [Catapres] 0.2 mg PO BID #60 tablet 05/16/19 05/24/19 Unknown Rx traZODone [Desyrel] 50 mg PO QHS #30 tablet 05/16/19 05/24/19 Unknown Rx Active Medications: Generic Name Dose Route Start Last Admin Trade Name Freq PRN Reason Stop Dose Admin Acetaminophen 650 mg 05/23/19 22:01 05/24/19 02:07 Tylenol PO 650 mg Q4H PRN Administration Pain MILD(1-3)/Fever >100.5/SWAIN Clonidine HCl 0.2 mg 05/24/19 10:00 05/25/19 13:03 Catapres PO Not Given BID FOSTER Dextrose 50 gm 05/23/19 19:16 D50w (25gm) Vial IV Q30MIN PRN Hypoglycemia Protocol Fluoxetine HCl 10 mg 05/24/19 10:00 05/25/19 13:12 Prozac PO Not Given QAM FOSTER Guaifenesin 200 mg 05/24/19 06:41 05/25/19 14:37 Robitussin PO 200 mg Q6H PRN Administration Cough Sodium Chloride 100 mls @ 999 mls/hr 05/23/19 20:00 Nacl 0.9% IV JULIA PRN Hypotension Ceftriaxone Sodium 2 gm in 100 mls @ 200 mls/hr 05/24/19 10:00 05/25/19 13:01 Rocephin/Ns 2 Gm/100 Ml IV 200 mls/hr Q24HR FOSTER Administration Protocol Azithromycin 500 mg/ Sodium 250 mls @ 250 mls/hr 05/24/19 10:00 05/25/19 14:37 Chloride IV 05/28/19 10:59 250 mls/hr Q24HR FOSTER Administration Protocol Magnesium Hydroxide 30 ml 05/23/19 22:01 Milk Of Magnesia PO Q4H PRN Constipation Melatonin 5 mg 05/24/19 06:33 05/25/19 02:12 Melatonin PO 5 mg QHS PRN Administration Sleep Ondansetron HCl 4 mg 05/23/19 22:01 Zofran IV Q8H PRN Nausea And Vomiting Pregabalin 25 mg 05/24/19 22:00 05/24/19 23:03 Pregabalin PO 25 mg QHS FOSTER Administration Quetiapine Fumarate 25 mg 05/24/19 10:00 05/25/19 13:02 Seroquel PO 25 mg BID FOSTER Administration Sodium Chloride 10 ml 05/24/19 10:00 05/25/19 13:02 Sodium Chloride Flush Syringe 10 Ml IV 10 ml BID FOSTER Administration Sodium Chloride 10 ml 05/23/19 22:01 Sodium Chloride Flush Syringe 10 Ml IV PRN PRN LINE FLUSH Trazodone HCl 50 mg 05/24/19 22:00 05/24/19 23:03 Desyrel PO 50 mg QHS FOSTER Administration
--- NOTE | 2019-05-25 17:58 | Progress Note ---
Assessment and Plan (1) Acute respiratory distress Current Visit: Yes Status: Acute Plan to address problem: Improved (2) ESRD (end stage renal disease) Current Visit: Yes Status: Acute Plan to address problem: Patient on dialysis Monday and Saturdays. He follows up with Dr. Vazquez. In dialysis today (3) Hyperkalemia Current Visit: Yes Status: Acute Plan to address problem: improved (4) Right lower lobe pneumonia Current Visit: Yes Status: Acute Plan to address problem: Patient placed on empiric IV antibiotics. We await blood culture results.. (5) Ascites Current Visit: No Status: Acute Qualifiers: Plan to address problem: She has history of recurrent ascites. He has a peritoneal tube in place for drainage. (6) DVT prophylaxis Current Visit: No Status: Acute Plan to address problem: He is placed on subcutaneous heparin. (7) Noncompliance Current Visit: No Status: Acute Plan to address problem: Patient encouraged on compliance with his medications and dialysis. Discharge planning issues Prob d/c home tomorrow Subjective Date of service: 05/25/19 Principal diagnosis: end-stage renal disease with fluid overload Interval history: 49-year-old -Ivorian male with known history of end-stage renal disease on dialysis Monday and Monday follows up with Dr. Vazquez, history of hypertension, history of chronic ascites history of noncompliance with med ications presents to the emergency room today with complaints of shortness of breath. He also indicates that he has been having progressive swelling of his abdomen and his lower extremities. He denies any chest pain, no nausea vomiting, no abdominal pain and no diarrhea. He was found to be in respiratory distress upon arrival in the emergency room and was initially placed on BiPAP with improvement. Work-up in the emergency room reveals a right lower lobe pneumonia on chest x- ray, he was also found to be hyperkalemic without any EKG changes. He had insulin and glucose, calcium gluconate, and albuterol in the emergency room. Tool Grinder Operator External was consulted and patient scheduled for immediate dialysis. Symptomatically better Objective - Constitutional Vitals: Vital Signs - 12hr 05/25/19 05/25/19 05/25/19 11:16 11:28 16:00 Temperature 98.3 F 97.8 F Pulse Rate 73 70 72 Respiratory 24 20 Rate Blood Pressure 118/74 110/63 O2 Sat by Pulse 86 95 Oximetry 05/25/19 05/25/19 05/25/19 16:21 16:30 16:45 Temperature Pulse Rate 72 74 75 Respiratory Rate Blood Pressure 124/67 122/72 116/60 O2 Sat by Pulse Oximetry 05/25/19 05/25/19 05/25/19 17:00 17:15 17:30 Temperature Pulse Rate 76 75 76 Respiratory Rate Blood Pressure 116/65 125/70 124/68 O2 Sat by Pulse Oximetry 05/25/19 17:45 Temperature Pulse Rate 76 Respiratory Rate Blood Pressure 128/72 O2 Sat by Pulse Oximetry General appearance: Present: no acute distress, well-nourished - EENT Eyes: PERRL, EOM intact ENT: hearing intact, clear oral mucosa Ears: bilateral: normal - Neck Neck: supple, normal ROM - Respiratory Respiratory effort: normal Respiratory: bilateral: CTA - Breasts Breasts: normal - Cardiovascular Heart rate: 78 Rhythm: regular Heart Sounds: Present: S1 & S2. Absent: gallop, rub Extremities: pulses intact, No edema, normal color, Full ROM - Gastrointestinal General gastrointestinal: Present: soft, non-tender, non-distended, normal bowel sounds - Genitourinary Male genitourinary: normal - Integumentary Integumentary: clear, warm, dry - Musculoskeletal Musculoskeletal: 1, strength equal bilaterally - Neurologic Neurologic: moves all extremities - Psychiatric Psychiatric: memory intact, appropriate mood/affect, intact judgment & insight - Allied health notes Allied health notes reviewed: nursing, case management - Labs CBC & Chem 7: 05/24/19 04:02 05/24/19 19:55 Labs: Abnormal lab results 05/24/19 Range/Units 19:55 Potassium 5.2 H (3.6-5.0) mmol/L Chloride 94.5 L (98-107) mmol/L BUN 42 H (9-20) mg/dL Creatinine 7.5 H (0.8-1.5) mg/dL Glucose 148 H (75-100) mg/dL
[2019-05-25] MEDS ORDERED: MORPHINE 2 MG/1 ML INJ IV PRN (19:52)
[2019-05-25] MEDS: PREGABALIN 25 MG CAP PO SCH (22:14)
[2019-05-25] MEDS: traZODone 50 MG TAB PO SCH (22:16)
[2019-05-25] MEDS ORDERED: SODIUM CHLORIDE*PRIMING MACHINE ONLY FOR DIALYSIS MC ONE (23:25)
[2019-05-26] MEDS: guaiFENesin 100 MG/5 ML ORAL LIQD PO PRN (00:31)
[2019-05-26] MEDS: cloNIDine 0.2 MG TAB PO SCH ×2 (01:20→10:15)
[2019-05-26] MEDS: MELATONIN 5 MG TAB PO PRN (01:27)
[2019-05-26] MEDS: QUEtiapine 25 MG TAB PO SCH (10:15)
[2019-05-26] MEDS: cefTRIAXone/NS 2 GM/100 ML 2 GM/100 ML BAG IV SCH (10:16)
[2019-05-26] MEDS: FLUoxetine 10 MG TAB PO SCH (10:16)
[2019-05-26] MEDS: AZITHROMYCIN 500 MG in SODIUM CHLORIDE 0.9% 250ML 250 ML IV SCH (11:04)
--- NOTE | 2019-05-26 13:53 | Discharge Summary ---
Providers - Providers Date of Admission: 05/23/19 19:22 Date of discharge: 05/26/19 Attending physician: DAHLIA MORIN 05/23/19 16:52 Consult to Physician [CONS] Urgent Comment: Consulting Provider: REBECA ZHANG Physician Instructions: Reason For Exam: esrd 05/24/19 06:27 Consult to Wound/ET Nurse [CONS] Routine Reason For Exam: wound eval open wounds on the right leg Primary care physician: HOG ROOM SUPERVISOR Hospitalization Reason for admission: Acute respiratory failure Condition: Fair Pertinent studies: Chest x-ray; persistent edema right lower lobe pneumonia Hospital course: 49-year-old -Maldivian male with known history of end-stage renal disease on dialysis Monday and Monday follows up with Dr. Vazquez, history of hypertension, history of chronic ascites history of noncompliance with medications presents to the emergency room today with complaints of shortness of breath. He also indicates that he has been having progressive swelling of his abdomen and his lower extremities. He denies any chest pain, no nausea vomiting, no abdominal pain and no diarrhea. He was found to be in respiratory distress upon arrival in the emergency room and was initially placed on BiPAP with improvement., Work-up in the emergency room reveals a right lower lobe pneumonia on chest x-ray, he was also found to be hyperkalemic without any EKG changes. He had insulin and glucose, calcium gluconate, and albuterol in the emergency room.Highway Engineering Teacher was consulted and patient scheduled for immediate dialysis. Patient's symptoms significantly improved. Stable at discharge Discharge diagnosis: -- Acute respiratory distress Current Visit: Yes Status: Acute . Significantly improved -- ESRD (end stage renal disease) Current Visit: Yes Status: Acute Patient on dialysis Monday and Saturdays. He follows up with Dr. Vazquez. In dialysis today --Hyperkalemia Current Visit: Yes Status: Acute improved -- Right lower lobe pneumonia Current Visit: Yes Status: Acute Patient placed on empiric IV antibiotics. We await blood culture results.. -- Ascites Current Visit: No Status: Acute She has history of recurrent ascites. He has a peritoneal tube in place for drainage. --chronic lower extremity edema/blisters and ulcers; Outpatient wound care as needed, elevate the limb Follow-up with Dr. Shetty at wound care as needed --DVT prophylaxis Current Visit: No Status: Acute He is placed on subcutaneous heparin. -- Noncompliance Current Visit: No Status: Acute Patient encouraged on compliance with his medications and dialysis. Stable for discharge Follow renal/HD per schedule Disposition: LUIS TO HOME OR SELFCARE Time spent for discharge: 32 min Core Measure Documentation - Palliative Care Palliative Care/ Comfort Measures: Not Applicable - Core Measures Any of the following diagnoses?: none Exam - Constitutional Vitals: Temp Pulse Resp BP Pulse Ox 98.9 F 76 22 123/77 93 05/26/19 11:00 05/26/19 11:00 05/26/19 11:00 05/26/19 11:00 05/26/19 11:00 General appearance: Present: no acute distress, well-nourished - EENT Eyes: Present: PERRL, EOM intact - Neck Neck: Present: supple, normal ROM - Respiratory Respiratory effort: normal Respiratory: bilateral: diminished, negative: rales, rhonchi, wheezing - Cardiovascular Rhythm: regular Heart Sounds: Present: S1 & S2 - Extremities Extremities: no ischemia, No edema - Abdominal General gastrointestinal: Present: soft, non-tender, non-distended, normal bowel sounds - Integumentary Integumentary: Present: clear, warm - Musculoskeletal Musculoskeletal: strength equal bilaterally, other (Lower extremity edema chronic skin changes, mild bruising from the blisters, dressing in place) - Psychiatric Psychiatric: appropriate mood/affect, cooperative - Neurologic Neurologic: moves all extremities Plan Activity: advance as tolerated, fall precautions Diet: renal Wound: per wound nurse instructions Additional Instructions: Follow renal/HD per schedule. Outpatient wound care as needed/follow Dr. Shetty as needed Follow up with: MARILEE VAZQUEZ MD [Staff Physician] - 7 Days PRIMARY MD NAA LUISA [Primary Care Provider] - 3-5 Days CORWIN SHETTY DO [Staff Physician] - 7 Days Prescriptions: levoFLOXacin [Levaquin] 250 mg PO QDAY #7 tablet guaiFENesin [Robitussin] 200 mg PO Q6H PRN 10 Days #1 bottle PRN Reason: Cough
[2019-05-26 15:53] VITALS: BP 136/85
--- NOTE | 2019-05-26 15:57 | Progress Note ---
Assessment and Plan - Patient Problems (1) Acute respiratory failure with hypoxia Current Visit: No Status: Acute Plan to address problem: Acute pulmonary edema secondary to missed dialysis and sodium and fluid dietary indiscretion. Improved with fluid removal on dialysis. (2) Acute hyperkalemia Current Visit: No Status: Acute Plan to address problem: Potassium has improved with dialysis. Okay to discharge. Patient encouraged to adhere to his dialysis regimen. He is scheduled to dialyze on Monday, and Monday this week (3) Volume overload Current Visit: No Status: Acute Qualifiers: Hypervolemia type: unspecified Qualified Code(s): E87.70 - Fluid overload, unspecified Plan to address problem: Fluid restriction. Follow-up volume status with fluid removal on dialysis (4) Right lower lobe pneumonia Current Visit: Yes Status: Acute Plan to address problem: Continue antibiotics per primary attending (5) Anemia in chronic kidney disease, on chronic dialysis Current Visit: No Status: Chronic Plan to address problem: Give erythropoietin on dialysis. (6) Ascites Current Visit: No Status: Chronic Qualifiers: Ascites type: other type Qualified Code(s): R18.8 - Other ascites Plan to address problem: Patient will drain ascitic fluid periodically (7) ESRD (end stage renal disease) on dialysis Current Visit: No Status: Chronic Plan to address problem: Improved with fluid removal on dialysis. Encouraged adherence to dialysis regimen as an outpatient Subjective Date of service: 05/26/19 Principal diagnosis: end-stage renal disease with fluid overload Interval history: Patient seen lying in bed. Has no new complaints. Feels better and wants to go home Objective - Exam Narrative Exam: Overweight middle-aged -[place] male lying in bed in no acute respiratory distress HEENT: NCAT, pink oral mucous membrane Neck: Supple, jugular venous distention + CVS: S1S2 RRR with no murmur, rub or gallop Chest: Diminished breath sounds in both lower zones Abdomen: Distended, edema abdominal wall, soft, nontender, no organomegaly, bowel sounds are present Extremities: 2+ edema both legs with lichenification of the skin and hyperpigmentation. Also with erythema in the legs Skin: As noted above with thickening and pigmentary changes Neuro: Awake, alert no focal deficits - Vital Signs Vital signs: Vital Signs - 12hr 05/26/19 05/26/19 05/26/19 05:42 10:00 10:16 Temperature 97.9 F Pulse Rate 74 Respiratory 16 Rate Blood Pressure 109/70 121/77 Blood Pressure [Right] O2 Sat by Pulse 99 98 Oximetry 05/26/19 05/26/19 05/26/19 11:00 15:49 15:51 Temperature 98.9 F 97.9 F Pulse Rate 76 73 Respiratory 22 16 Rate Blood Pressure 123/77 Blood Pressure 136/85 [Right] O2 Sat by Pulse 93 93 Oximetry - Lab 05/24/19 04:02 05/24/19 19:55 Most recent lab results Calcium 8.5 mg/dL (8.4-10.2) 05/24/19 19:55 Magnesium 2.30 mg/dL (1.7-2.3) 05/23/19 Unknown Medications & Allergies - Medications Allergies/Adverse Reactions: Allergies labetalol Allergy (Verified 10/16/18 15:22) Vomiting pt also reports drastic drop in HR polystyrene sulfonate [From Kayexalate] Allergy (Verified 10/16/18 13:24) Unknown tramadol [From Ultram] Adverse Reaction (Verified 03/05/18 15:30) Dizziness Home Medications: Home Medications Medication Instructions Recorded Confirmed Last Taken Type Acetaminophen [Acetaminophen TAB] 1 tab PO Q4H PRN #14 tablet 05/16/19 05/24/19 Unknown Rx FLUoxetine [PROzac] 10 mg PO QAM #30 tablet 05/16/19 05/24/19 Unknown Rx Melatonin [Melatonin 5MG TAB] 5 mg PO QHS PRN #30 tablet 05/16/19 05/24/19 Unknown Rx Pregabalin 25 mg PO QHS #30 capsule 05/16/19 05/24/19 Unknown Rx QUEtiapine [SEROquel] 25 mg PO BID #60 tablet 05/16/19 05/24/19 Unknown Rx cloNIDine [Catapres] 0.2 mg PO BID #60 tablet 05/16/19 05/24/19 Unknown Rx traZODone [Desyrel] 50 mg PO QHS #30 tablet 05/16/19 05/24/19 Unknown Rx guaiFENesin [Robitussin] 200 mg PO Q6H PRN 10 Days #1 bottle 05/26/19 Unknown Rx levoFLOXacin [Levaquin] 250 mg PO QDAY #7 tablet 05/26/19 Unknown Rx Active Medications: Generic Name Dose Route Start Last Admin Trade Name Freq PRN Reason Stop Dose Admin Acetaminophen 650 mg 05/23/19 22:01 05/24/19 02:07 Tylenol PO 650 mg Q4H PRN Administration Pain MILD(1-3)/Fever >100.5/SWAIN Clonidine HCl 0.2 mg 05/24/19 10:00 05/26/19 10:15 Catapres PO Not Given BID FOSTER Dextrose 50 gm 05/23/19 19:16 D50w (25gm) Vial IV Q30MIN PRN Hypoglycemia Protocol Fluoxetine HCl 10 mg 05/24/19 10:00 05/26/19 10:16 Prozac PO Not Given QAM [facility] Guaifenesin 200 mg 05/24/19 06:41 05/26/19 00:31 Robitussin PO 200 mg Q6H PRN Administration Cough Sodium Chloride 100 mls @ 999 mls/hr 05/23/19 20:00 Nacl 0.9% IV JULIA PRN Hypotension Ceftriaxone Sodium 2 gm in 100 mls @ 200 mls/hr 05/24/19 10:00 05/26/19 10:16 Rocephin/Ns 2 Gm/100 Ml IV 200 mls/hr Q24HR FOSTER Administration Protocol Azithromycin 500 mg/ Sodium 250 mls @ 250 mls/hr 05/24/19 10:00 05/26/19 11:04 Chloride IV 05/28/19 10:59 250 mls/hr Q24HR FOSTER Administration Protocol Magnesium Hydroxide 30 ml 05/23/19 22:01 Milk Of Magnesia PO Q4H PRN Constipation Melatonin 5 mg 05/24/19 06:33 05/26/19 01:27 Melatonin PO 5 mg QHS PRN Administration Sleep Morphine Sulfate 1 mg 05/25/19 19:52 05/25/19 21:00 Morphine IV 1 mg Q6H PRN Administration Pain, Moderate (4-6) Ondansetron HCl 4 mg 05/23/19 22:01 Zofran IV Q8H PRN Nausea And Vomiting Pregabalin 25 mg 05/24/19 22:00 05/25/19 22:14 Pregabalin PO 25 mg QHS FOSTER Administration Quetiapine Fumarate 25 mg 05/24/19 10:00 05/26/19 10:15 Seroquel PO Not Given BID FOSTER Sodium Chloride 10 ml 05/24/19 10:00 05/26/19 10:17 Sodium Chloride Flush Syringe 10 Ml IV 10 ml BID FOSTER Administration Sodium Chloride 10 ml 05/23/19 22:01 Sodium Chloride Flush Syringe 10 Ml IV PRN PRN LINE FLUSH Trazodone HCl 50 mg 05/24/19 22:00 05/25/19 22:16 Desyrel PO Not Given QHS FOSTER
== END 2019-05-26 16:20 | disposition home or self-care (01) | DRG 193 ==
LOC: ED 16:08 → IMCU 19:22 → 3A 05-24 19:04
PROVIDERS: ADMIT Internal Medicine Geriatric Medicine; ATTEND Internal Medicine
PROC: 5A1D70Z Performance of Urinary Filtration, Intermittent, Less than 6 Hours Per Day (ICD-10-PCS; principal; 2019-05-23)
PROC: 5A09357 Assistance with Respiratory Ventilation, Less than 24 Consecutive Hours, Continuous Positive Airway Pressure (ICD-10-PCS; 2019-05-23)
PROC: 5A1D70Z Performance of Urinary Filtration, Intermittent, Less than 6 Hours Per Day (ICD-10-PCS; 2019-05-24)
PROC: 5A1D70Z Performance of Urinary Filtration, Intermittent, Less than 6 Hours Per Day (ICD-10-PCS; 2019-05-25)
DX: J18.9 Pneumonia, unspecified organism (principal); N18.6 End stage renal disease; J96.01 Acute respiratory failure with hypoxia; R18.8 Other ascites; I13.2 Hypertensive heart and chronic kidney disease with heart failure and with stage 5 chronic kidney disease, or end stage renal disease; K21.9 Gastro-esophageal reflux disease without esophagitis; I50.9 Heart failure, unspecified; D63.1 Anemia in chronic kidney disease; E87.6 Hypokalemia; I49.8 Other specified cardiac arrhythmias; E87.70 Fluid overload, unspecified; E87.5 Hyperkalemia; Z91.19 Patient's noncompliance with other medical treatment and regimen; Z99.2 Dependence on renal dialysis; Z79.899 Other long term (current) drug therapy; Z88.8 Allergy status to other drugs, medicaments and biological substances; Z91.14 Patient's other noncompliance with medication regimen
CPT/HCPCS: 36415; 71045; 80048; 80053; 80061; 82550; 83735; 83880; 84484; 85025; 85027; 85610; 85730; 87040; 93005; 93010; 96365; 96366; 96367; 96375; G0378; J0456; J0610; J0696; J1956; J2270; J7030; J7050

== ENCOUNTER 2019-06-11 09:30 | Outpatient (CLI) | payer MEDICARE ==
[2019-06-11] MEDS ORDERED: LIDOCAINE (4%) 40 MG/ML TOPICAL SOLN 50 ML BOTTLE TP ONE (10:00)
== END 2019-06-11 09:31 | disposition home or self-care (01) ==
LOC: WOUND 09:30
PROVIDERS: ATTEND Surgery
DX: I70.232 Atherosclerosis of native arteries of right leg with ulceration of calf (principal); L97.212 Non-pressure chronic ulcer of right calf with fat layer exposed; L97.222 Non-pressure chronic ulcer of left calf with fat layer exposed; N18.6 End stage renal disease; I10 Essential (primary) hypertension; F17.210 Nicotine dependence, cigarettes, uncomplicated
CPT/HCPCS: 11042; 11045; 36415; 71046; 80053; 80061; 83735; 83880; 84100; 84132; 84484; 85025; 93005; 93010; 96374; 96375; 99291; G0463; J0610; J2270; 99215; J1815

== ENCOUNTER 2019-06-11 11:09 | Observation (INO) | payer MEDICARE ==
--- NOTE | 2019-06-11 11:23 | Event Note ---
ED Screening Note ED Screening Note: SOB that began today dry cough CP described as a pressure chronic leg swelling states he had PNA last week PMHx ESRD-dialysis T,Th, S, HTN he last went on 06/08/2019 allergy: states he does not like to take "beta blockers" no true allergy never smoker non drinker +marijuana This initial assessment/diagnostic orders/clinical plan/treatment(s) is/are subject to change based on patients health status, clinical progression and re- assessment by fellow clinical providers in the ED. Further treatment and workup at subsequent clinical providers discretion. Patient/guardian urged not to elope from the ED as their condition may be serious if not clinically assessed and managed. Initial orders include: CP protocol
--- NOTE | 2019-06-11 12:03 | XRay Report ---
CHEST 2 VIEWS INDICATION / CLINICAL INFORMATION: SOB, CP. COMPARISON: 06/04/2019 FINDINGS: SUPPORT DEVICES: None. HEART / MEDIASTINUM: There is prominence the cardiac silhouette. This appears unchanged LUNGS / PLEURA: There is patchy airspace opacity in the lung bases. .No pneumothorax. ADDITIONAL FINDINGS: No significant additional findings. IMPRESSION: 1. There is patchy airspace opacity in the lung bases which likely represents atelectasis. Signer Name: Walt Davenport MD Signed: 06/11/2019 11:59 AM Workstation Name: [id number]
[2019-06-11 14:38] LABS: Alanine Aminotransferase 20 units/L (7-56); Albumin 3.7 g/dL (3.9-5); BUN/Creatinine Ratio 7; Blood Urea Nitrogen 72 mg/dL (9-20); Hemolysis Index 9
[2019-06-11 14:43] LABS: Basophils # (Auto) 0.1 K/mm3 (0.0-0.1); Eosinophils # (Auto) 0.1 K/mm3 (0.0-0.4); Eosinophils % (Auto) 1.3 % (0.0-4.3); Hematocrit 29.9 % (35.5-45.6); Hemoglobin 9.6 gm/dl (11.8-15.2); Lymphocytes # (Auto) 1.2 K/mm3 (1.2-5.4); Lymphocytes % (Auto) 20.1 % (13.4-35.0); Mean Corpuscular HGB Conc 32 % (32-34); Mean Corpuscular Volume 101 fl (84-94); Monocytes # (Auto) 0.8 K/mm3 (0.0-0.8); Monocytes % (Auto) 13.5 % (0.0-7.3); Platelet Count 178 K/mm3 (140-440); Red Blood Count 2.98 M/mm3 (3.65-5.03); Red Cell Distribution Width 19.1 % (13.2-15.2)
[2019-06-11 15:22] LABS: Chol/HDL Ratio 2.31 %; HDL Cholesterol 76 mg/dL (40-59); LDL Cholesterol,Direct 103 mg/dL (50-130)
[2019-06-11] MEDS ORDERED: SODIUM BICARB 8.4% 50 MEQ/50 ML SYRINGE IV ONE (21:05)
[2019-06-11] MEDS ORDERED: CALCIUM GLUCONATE 1,000 MG in SODIUM CHLORIDE 0.9% 100 ML IV ONE (21:05)
[2019-06-11] MEDS ORDERED: INSULIN REGULAR, HUMAN 100 UNITS/1 ML IV ONE (21:06)
[2019-06-11] MEDS ORDERED: DEXTROSE 50% IN WATER (25GM) 50 ML SYRINGE IV ONE (21:07)
--- NOTE | 2019-06-11 21:27 | Emergency Department Report ---
ED General Adult HPI - General Chief complaint: Dyspnea/Respdistress Stated complaint: MADDIE Time Seen by Provider: 06/11/19 11:19 Source: patient Mode of arrival: Wheelchair Limitations: Physical Limitation - History of Present Illness Initial comments: The patient presents to the emergency department the chief complaint of increasing shortness of breath for the last 2-3 days. Patient states he was on his way to an appointment to get a CT scan of his abdomen today with shortness of breath became so intense he decided to come to the emergency department. Patient states he has a history of end-stage renal disease and goes to dialysis on Saturdays, Tuesdays, and did not go today. Patient also has a history of abdominal ascites which he has a pigtail for and drains daily. Patient states he has congestive heart failure and wears oxygen at home intermittently. Patient goes to dialysis in [place] at [facility]. Patient also complains of constipation secondary to OxyContin use due to pain from swellin of his lower extremities. -: Gradual Severity scale (0 -10): 6 Quality: aching Consistency: constant Improves with: none Worsens with: none Associated Symptoms: denies other symptoms Treatments Prior to Arrival: none - Related Data Previous Rx's Medication Instructions Recorded Last Taken Type Acetaminophen [Acetaminophen TAB] 1 tab PO Q4H PRN #14 tablet 05/16/19 Unknown Rx Melatonin [Melatonin 5MG TAB] 5 mg PO QHS PRN #30 tablet 05/16/19 Unknown Rx cloNIDine [Catapres] 0.2 mg PO BID #60 tablet 05/16/19 Unknown Rx guaiFENesin [Robitussin] 200 mg PO Q6H PRN 10 Days #1 bottle 05/26/19 Unknown Rx levoFLOXacin [Levaquin] 250 mg PO QDAY #7 tablet 05/26/19 Unknown Rx Pregabalin 75 mg PO BID #60 cap 06/06/19 Unknown Rx Pregabalin 75 mg PO BID #60 cap 06/06/19 Unknown Rx oxyCODONE /ACETAMINOPHEN [Percocet 1 tab PO Q6HR PRN #24 tablet 06/06/19 Unknown Rx 5/325] Allergies Allergy/AdvReac Type Severity Reaction Status Date / Time labetalol Allergy Vomiting Verified 10/16/18 15:22 polystyrene sulfonate Allergy Unknown Verified 10/16/18 13:24 [From Kayexalate] tramadol [From Ultram] AdvReac Dizziness Verified 03/05/18 15:30 ED Review of Systems ROS: Stated complaint: MADDIE Other details as noted in HPI Comment: All other systems reviewed and negative Constitutional: denies: chills, fever Eyes: denies: eye pain, eye discharge, vision change ENT: denies: ear pain, throat pain Respiratory: shortness of breath. denies: cough, wheezing Cardiovascular: denies: chest pain, palpitations Endocrine: no symptoms reported Gastrointestinal: denies: abdominal pain, nausea, diarrhea Genitourinary: denies: urgency, dysuria Musculoskeletal: denies: back pain, joint swelling, arthralgia Skin: denies: rash, lesions Neurological: denies: headache, weakness, paresthesias Psychiatric: denies: anxiety, depression Hematological/Lymphatic: denies: easy bleeding, easy bruising ED Past Medical Hx - Past Medical History Hx Hypertension: Yes Hx CVA: No Hx Heart Attack/AMI: No Hx Congestive Heart Failure: No Hx Diabetes: No Hx Deep Vein Thrombosis: No Hx Pulmonary Embolism: No Hx GERD: Yes Hx Liver Disease: No Hx Renal Disease: Yes (ESRD Tu, Th, Sat. Lu Dialysis) Hx Sickle Cell Disease: No Hx Arthritis: No Hx Headaches / Migraines: No Hx Seizures: No Hx Kidney Stones: No Hx Psychiatric Treatment: No Hx Asthma: No Hx COPD: No Hx Tuberculosis: No Hx Dementia: No Hx HIV: No Additional medical history: Abdominal Hernias, right groin hernia, ascites - Surgical History Hx Coronary Stent: No Hx Open Heart Surgery: No Hx Pacemaker: No Hx Internal Defibrillator: No Hx Cholecystectomy: No Hx Appendectomy: No Hx Breast Surgery: No Additional Surgical History: dialysis access left arm, groin hernia repair, - Social History Smoking Status: Never Smoker Substance Use Type: Marijuana - Medications Home Medications: Home Medications Medication Instructions Recorded Confirmed Last Taken Type Acetaminophen [Acetaminophen TAB] 1 tab PO Q4H PRN #14 tablet 05/16/19 06/04/19 Unknown Rx Melatonin [Melatonin 5MG TAB] 5 mg PO QHS PRN #30 tablet 05/16/19 06/04/19 Unknown Rx cloNIDine [Catapres] 0.2 mg PO BID #60 tablet 05/16/19 06/04/19 Unknown Rx guaiFENesin [Robitussin] 200 mg PO Q6H PRN 10 Days #1 bottle 05/26/19 06/04/19 Unknown Rx levoFLOXacin [Levaquin] 250 mg PO QDAY #7 tablet 05/26/19 06/04/19 Unknown Rx Pregabalin 75 mg PO BID #60 cap 06/06/19 Unknown Rx Pregabalin 75 mg PO BID #60 cap 06/06/19 Unknown Rx oxyCODONE /ACETAMINOPHEN [Percocet 1 tab PO Q6HR PRN #24 tablet 06/06/19 Unknown Rx 5/325] ED Physical Exam - General Limitations: Physical Limitation General appearance: alert, in no apparent distress - Head Head exam: Present: atraumatic, normocephalic - Eye Eye exam: Present: normal appearance, PERRL, EOMI - ENT ENT exam: Present: mucous membranes moist - Neck Neck exam: Present: normal inspection - Respiratory Respiratory exam: Present: rales. Absent: respiratory distress - Cardiovascular Cardiovascular Exam: Present: regular rate, normal rhythm. Absent: systolic murmur, diastolic murmur, rubs, gallop - GI/Abdominal GI/Abdominal exam: Present: soft, distended, normal bowel sounds. Absent: tenderness - Rectal Rectal exam: Present: deferred - Extremities Exam Extremities exam: Present: other (anasarca of the lower extremities) - Back Exam Back exam: Present: normal inspection - Neurological Exam Neurological exam: Present: alert, oriented X3, CN II-XII intact. Absent: motor sensory deficit - Psychiatric Psychiatric exam: Present: normal affect, normal mood - Skin Skin exam: Present: warm, dry, intact, normal color. Absent: rash ED Course Vital Signs 06/11/19 06/11/19 11:17 21:15 Temperature 97.6 F Pulse Rate 81 Respiratory 22 20 Rate Blood Pressure 132/84 O2 Sat by Pulse 86 98 Oximetry ED Medical Decision Making - Lab Data Result diagrams: 06/11/19 13:56 06/11/19 13:56 Lab Results 06/11/19 06/11/19 06/11/19 Range/Units 13:56 13:56 18:06 WBC 6.1 (4.5-11.0) K/mm3 RBC 2.98 L (3.65-5.03) M/mm3 Hgb 9.6 L (11.8-15.2) gm/dl Hct 29.9 L (35.5-45.6) % MCV 101 H (84-94) fl MCH 32 (28-32) pg MCHC 32 (32-34) % RDW 19.1 H (13.2-15.2) % Plt Count 178 (140-440) K/mm3 Lymph % (Auto) 20.1 (13.4-35.0) % [place] % (Auto) 13.5 H (0.0-7.3) % Eos % (Auto) 1.3 (0.0-4.3) % Baso % (Auto) [place] Lymph # 1.2 (1.2-5.4) K/mm3 [place] # 0.8 (0.0-0.8) K/mm3 Eos # 0.1 (0.0-0.4) K/mm3 Baso # 0.1 (0.0-0.1) K/mm3 Seg Neutrophils % 63.3 (40.0-70.0) % Seg Neutrophils # 3.8 (1.8-7.7) K/mm3 Sodium 139 (137-145) mmol/L Potassium 6.9 H* (3.6-5.0) mmol/L Chloride 98.2 (98-107) mmol/L Carbon Dioxide 19 L (22-30) mmol/L Anion Gap 29 mmol/L BUN 72 H (9-20) mg/dL Creatinine 10.6 H (0.8-1.5) mg/dL Estimated GFR 6 ml/min BUN/Creatinine Ratio 7 % Glucose 148 H (75-100) mg/dL Calcium 9.0 (8.4-10.2) mg/dL Phosphorus 9.90 H (2.5-4.5) mg/dL Magnesium 2.30 (1.7-2.3) mg/dL Total Bilirubin 0.50 (0.1-1.2) mg/dL AST 25 (5-40) units/L ALT 20 (7-56) units/L Alkaline Phosphatase 77 (35-129) units/L Troponin T 1.620 H* 1.660 H* (0.00-0.029) ng/mL NT-Pro-B Natriuret Pep > 34996 H (0-450) pg/mL Total Protein 6.8 (6.3-8.2) g/dL Albumin 3.7 L (3.9-5) g/dL Albumin/Globulin Ratio 1.2 % Triglycerides 56 (2-149) mg/dL Cholesterol 176 (50-199) mg/dL LDL Cholesterol Direct 103 (50-130) mg/dL HDL Cholesterol 76 H (40-59) mg/dL Cholesterol/HDL Ratio 2.31 % - EKG Data -: EKG Interpreted by Me EKG shows normal: sinus rhythm Rate: normal - Medical Decision Making Patient given Tessalon, insulin, D50, sodium bicarbonate IV, albuterol nebulizer treatment Spoke with Dr. Casey and dialysis orders will be placed Discussed results and plan of care with the patient Critical Care Time: Yes Critical care time in (mins) excluding proc time.: 45 Critical care attestation.: If time is entered above; I have spent that time in minutes in the direct care of this critically ill patient, excluding procedure time. ED Disposition Clinical Impression: Hyperkalemia, ESRD (end stage renal disease) on dialysis Disposition: DC09 OP ADMIT IP TO THIS HOSP Is pt being admited?: Yes Does the pt Need Aspirin: No Condition: Fair Referrals: PRIMARY CARE, [Primary Care Provider] - 3-5 Days
[2019-06-11] MEDS ORDERED: MORPHINE 4 MG/1 ML INJ IV ONE (22:30)
[2019-06-11] MEDS ORDERED: MORPHINE 4 MG/1 ML INJ ONE (22:45)
[2019-06-11] MEDS ORDERED: SODIUM POLYSTYRENE 15 GM/60 ML ORAL LIQD PO ONE (23:43)
[2019-06-12] MEDS ORDERED: ALBUTEROL 2.5 MG/3 ML NEBU IH ONE (00:03)
--- NOTE | 2019-06-12 00:55 | History and Physical Report ---
History of Present Illness History of present illness: 49-year-old man with a history of polycystic kidney disease, hypertension, Afib, recurrent ascites, chronic lower extremity ulcers, end-stage renal disease on dialysis comes emergency room with complaints of shortness of breath. Patient states he went to the wound care today, while he was there they noted that his breathing was labored and they sent him to the emergency room for further evaluation. He has chronic ascites with indwelling catheter that drains <1 a day. Admits to being depressed because of his chronic medical problems, wished he could take something and not wake up, was very tearful in the emergency room. Review Of Systems: Constitutional: no Fever, no weight loss Ears, eyes, nose, mouth and throat: no nasal congestion, no nasal discharge, no sinus pressure, blurry vision, diplopia Neck: No neck pain or rigidity. Cardiovascular: orthopnea, palpitations, chest pain Respiratory: No cough, shortness of breath Gastrointestinal: abdominal pain, hematochezia Genitourinary : no dysuria, frequency Musculoskeletal: no muscle ache Integumentary: no rash, no pruritis Neurological: no parathesias, focal weakness Endocrine: no cold or heat intolerance, no polyuria or polydipsia Hematologic/Lymphatic: no easy bruising, no easy bleeding, no gland swelling Allergic/Immunologic: no urticaria, no angioedema. PAST MEDICAL HISTORY:polycystic kidney disease, hypertension, afib, chronic lower extremity ulcers, end-stage renal disease, recurrent ascites PAST SURGICAL HISTORY: AV fistula, hernia repair FAMILY HISTORY: hypertension SOCIAL HISTORY: Denies alcohol, tobacco, drug Medications and Allergies Allergies Allergy/AdvReac Type Severity Reaction Status Date / Time labetalol Allergy Vomiting Verified 10/16/18 15:22 polystyrene sulfonate Allergy Unknown Verified 10/16/18 13:24 [From Kayexalate] tramadol [From Ultram] AdvReac Dizziness Verified 03/05/18 15:30 Home Medications Medication Instructions Recorded Confirmed Last Taken Type Acetaminophen [Acetaminophen TAB] 1 tab PO Q4H PRN #14 tablet 05/16/19 06/04/19 Unknown Rx Melatonin [Melatonin 5MG TAB] 5 mg PO QHS PRN #30 tablet 05/16/19 06/04/19 Unknown Rx cloNIDine [Catapres] 0.2 mg PO BID #60 tablet 05/16/19 06/04/19 Unknown Rx guaiFENesin [Robitussin] 200 mg PO Q6H PRN 10 Days #1 bottle 05/26/19 06/04/19 Unknown Rx levoFLOXacin [Levaquin] 250 mg PO QDAY #7 tablet 05/26/19 06/04/19 Unknown Rx Pregabalin 75 mg PO BID #60 cap 06/06/19 Unknown Rx Pregabalin 75 mg PO BID #60 cap 06/06/19 Unknown Rx oxyCODONE /ACETAMINOPHEN [Percocet 1 tab PO Q6HR PRN #24 tablet 06/06/19 Unknown Rx 5/325] Active Meds: Active Medications Enoxaparin Sodium (Enoxaparin) 30 mg SUB-Q QDAY FOSTER Exam - Physical Exam Narrative exam: eneral Apperance: The patient lying in bed, breathing comfortable HEENT: Normocephalic, atraumatic. Pupils equally round and reactive to light, EOMI, no sclericterus or JVD or thyromegaly or nodule. , no carotid bruit, mucous membranes moist, no exudate or erythema Heart: S1-S2, regular is rhythm Lungs: Clear to auscultation bilaterally, breathing comfortable Abdomen: Positive bowel sounds, soft, distended, nontender, difficult to assess for organomegaly Extremities: + edema up to thighs, no cyanosis clubbing Skin: LE wounds, no rash, nodule, warm and dry, left leg wound Neuro: cranial nerves 2-12 intact, speech is fluent, motor/sensory intact - Constitutional Vitals: Temp Pulse Resp BP Pulse Ox 97.6 F 81 20 132/84 98 06/11/19 11:17 06/11/19 11:17 06/11/19 21:15 06/11/19 11:17 06/11/19 21:15 Results - Labs CBC & Chem 7: 06/11/19 13:56 06/11/19 23:24 Labs: Abnormal lab results 06/11/19 06/11/19 06/11/19 Range/Units 13:56 13:56 18:06 RBC 2.98 L (3.65-5.03) M/mm3 Hgb 9.6 L (11.8-15.2) gm/dl Hct 29.9 L (35.5-45.6) % MCV 101 H (84-94) fl RDW 19.1 H (13.2-15.2) % [place] % (Auto) 13.5 H (0.0-7.3) % Potassium 6.9 H* (3.6-5.0) mmol/L Carbon Dioxide 19 L (22-30) mmol/L BUN 72 H (9-20) mg/dL Creatinine 10.6 H (0.8-1.5) mg/dL Glucose 148 H (75-100) mg/dL Phosphorus 9.90 H (2.5-4.5) mg/dL Troponin T 1.620 H* 1.660 H* (0.00-0.029) ng/mL NT-Pro-B Natriuret Pep > 80460 H (0-450) pg/mL Albumin 3.7 L (3.9-5) g/dL HDL Cholesterol 76 H (40-59) mg/dL 06/11/19 Range/Units 23:24 RBC (3.65-5.03) M/mm3 Hgb (11.8-15.2) gm/dl Hct (35.5-45.6) % MCV (84-94) fl RDW (13.2-15.2) % [place] % (Auto) (0.0-7.3) % Potassium 5.9 H (3.6-5.0) mmol/L Carbon Dioxide (22-30) mmol/L BUN (9-20) mg/dL Creatinine (0.8-1.5) mg/dL Glucose (75-100) mg/dL Phosphorus (2.5-4.5) mg/dL Troponin T (0.00-0.029) ng/mL NT-Pro-B Natriuret Pep (0-450) pg/mL Albumin (3.9-5) g/dL HDL Cholesterol (40-59) mg/dL - Imaging and Cardiology EKG: report reviewed Chest x-ray: report reviewed Assessment and Plan Assessment Fluid Overload/Hyperkalemia,/ESRSD need emergent HD s/p cocktail for hyperkalemia Renal was consulted for urgent dialysis Suicidal Placed on 1013, consult psych Abnormal cardiac enzymes, Chronic, asymptomatic check cardiac enzymes, consult cardiology Afib stable, continue outpatient medications Hypertension continue antihypertensives, add IV hydralazine as needed Chronic lower extremity edema with ulcers s/p wound care this morning as outpatient Polycystic kidney disease DVT prophylaxis
[2019-06-12] MEDS ORDERED: ACETAMINOPHEN 325 MG TAB PO PRN (04:50)
[2019-06-12] MEDS ORDERED: ONDANSETRON 4 MG/2 ML INJ IV PRN (04:50)
[2019-06-12] MEDS: ENOXAPARIN 30 MG/0.3 ML INJ SUB-Q SCH (10:00)
[2019-06-12] MEDS: oxyCODONE /ACETAMINOPHEN 5-325MG TAB PO PRN ×3 (10:00→22:45)
--- NOTE | 2019-06-12 11:17 | Consultation ---
History of Present Illness - Reason for Consult Consult date: 06/12/19 Reason for consult: Manage mental health - Chief Complaint Chief complaint: depression, need someone to talk to - History of Present Psychiatric Illness Antonio Ledbetter is a 49y/o male who says he came to the ER for "trouble breathing." He remembers me as I walk into his room. He is known to me from a recent visit. He is sitting in the chair. He is dressed appropriately. Awake. A/O x 4. He is talkative. He is calm and cooperative. Mr. Ledbetter states he is "depressed from not having support from his ." He says he realizes "she is doing the best she can do, but she could be more understanding and more comforting." He says "she doesn't understand that at times I might need his feet rubbed due to the tingling." He denies SI/HI, and states, "I've never been suicidal. But I know where that comes from." He says "I came in because I couldn't breathe, and they left me in the waiting area for about five or six hours." He then says, "so I told them I was suicidal to get back there faster." The patient says, "they asked me if I needed someone to talk to. I told them yes. But it's mostly about my ." He denies any hallucinations, but states he stopped taking the medications I sent him home with because "they made him hallucinate." He says "the only think that helps me is marijuana." The patient advised to establish a psychiatrist on an outpatient basis and start cognitive behavioral therapy and family therapy. Mr. Ledbetter states, "they told me I can get therapy here." PAST PSYCHIATRIC HISTORY: Diagnoses: Depression Suicide attempts or Self-harm behavior: denies Prior psychiatric hospitalizations:denies Substance Abuse history: denies Previous psychiatric medications tried: risperidone, prozac Outpatient treatment: no REVIEW OF SYSTEMS Constitutional: Negative for weight loss ENT: Negative for stridor Respiratory: denies cough All other systems reviewed and are negative except respiratory PAST MEDICAL HISTORY: Dialysis, htn, kidney disease Family Psychiatric History None reported or documented SOCIAL HISTORY Marital Status: Living 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 Good eye contact. Behavior: calm and cooperative Mood: "depressed" Affect: consisted with mood Thought Process: Goal directed Speech: Normal tone and pace Thought Content Harmfulness Denies SI/HI Hallucinations: patient denies Delusions: none elicited Consciousness: Alert Cognition/Memory: Good Insight/Judgment: Good Assessment: Major Depressive Disorder, Moderate Treatment Plan D/C 1013 No medications prescribed or ordered at this time Medical: Per primary team Disposition: The patient does not meet requirement for acute inpatient psychiatric hospitalization. May discharge home once medically clear. The patient is to establish an outpatient psychiatrist, and start cognitive behavioral therapy, and family therapy. Cardiology Physician Assistant to give patient resources for outpatient psychiatry to follow up within 7 to 10 days of discharge from hospital Will sign off. Please call with any questions or concerns. Thank you for this consult. Medications and Allergies Allergies Allergy/AdvReac Type Severity Reaction Status Date / Time labetalol Allergy Vomiting Verified 10/16/18 15:22 polystyrene sulfonate Allergy Unknown Verified 10/16/18 13:24 [From Kayexalate] tramadol [From Ultram] AdvReac Dizziness Verified 03/05/18 15:30 Home Medications Medication Instructions Recorded Confirmed Last Taken Type Acetaminophen [Acetaminophen TAB] 1 tab PO Q4H PRN #14 tablet 05/16/19 06/04/19 Unknown Rx Melatonin [Melatonin 5MG TAB] 5 mg PO QHS PRN #30 tablet 05/16/19 06/04/19 Unknown Rx cloNIDine [Catapres] 0.2 mg PO BID #60 tablet 05/16/19 06/04/19 Unknown Rx guaiFENesin [Robitussin] 200 mg PO Q6H PRN 10 Days #1 bottle 05/26/19 06/04/19 Unknown Rx levoFLOXacin [Levaquin] 250 mg PO QDAY #7 tablet 05/26/19 06/04/19 Unknown Rx Pregabalin 75 mg PO BID #60 cap 06/06/19 Unknown Rx Pregabalin 75 mg PO BID #60 cap 06/06/19 Unknown Rx oxyCODONE /ACETAMINOPHEN [Percocet 1 tab PO Q6HR PRN #24 tablet 06/06/19 Unknown Rx 5/325] Active Meds: Active Medications Acetaminophen (Tylenol) 650 mg PO Q4H PRN PRN Reason: Pain MILD(1-3)/Fever >100.5/SWAIN Enoxaparin Sodium (Enoxaparin) 30 mg SUB-Q QDAY [facility] Last Admin: 06/12/19 10:00 Dose: 30 mg Documented by: Ondansetron HCl (Zofran) 4 mg IV Q8H PRN PRN Reason: Nausea And Vomiting Oxycodone/Acetaminophen (Percocet 5/325) 1 tab PO Q6H PRN PRN Reason: Pain, Moderate (4-6) Last Admin: 06/12/19 10:00 Dose: 1 tab Documented by: Sodium Chloride (Sodium Chloride Flush Syringe 10 Ml) 10 ml IV BID [facility] Last Admin: 06/12/19 10:00 Dose: 10 ml Documented by: Sodium Chloride (Sodium Chloride Flush Syringe 10 Ml) 10 ml IV PRN PRN PRN Reason: LINE FLUSH Mental Status Exam - Vital signs Last Vital Signs Temp 98.7 F 06/12/19 07:30 Pulse 69 06/12/19 07:30 Resp 20 06/12/19 07:30 BP 135/81 06/12/19 07:30 Pulse Ox 97 06/12/19 07:30 Results Result Diagrams: 06/11/19 13:56 06/11/19 23:24 Abnormal lab results 06/11/19 06/11/19 06/11/19 Range/Units 13:56 13:56 18:06 RBC 2.98 L (3.65-5.03) M/mm3 Hgb 9.6 L (11.8-15.2) gm/dl Hct 29.9 L (35.5-45.6) % MCV 101 H (84-94) fl RDW 19.1 H (13.2-15.2) % [place] % (Auto) 13.5 H (0.0-7.3) % Potassium 6.9 H* (3.6-5.0) mmol/L Carbon Dioxide 19 L (22-30) mmol/L BUN 72 H (9-20) mg/dL Creatinine 10.6 H (0.8-1.5) mg/dL Glucose 148 H (75-100) mg/dL Phosphorus 9.90 H (2.5-4.5) mg/dL Troponin T 1.620 H* 1.660 H* (0.00-0.029) ng/mL NT-Pro-B Natriuret Pep > 95913 H (0-450) pg/mL Albumin 3.7 L (3.9-5) g/dL HDL Cholesterol 76 H (40-59) mg/dL 06/11/19 Range/Units 23:24 RBC (3.65-5.03) M/mm3 Hgb (11.8-15.2) gm/dl Hct (35.5-45.6) % MCV (84-94) fl RDW (13.2-15.2) % [place] % (Auto) (0.0-7.3) % Potassium 5.9 H (3.6-5.0) mmol/L Carbon Dioxide (22-30) mmol/L BUN (9-20) mg/dL Creatinine (0.8-1.5) mg/dL Glucose (75-100) mg/dL Phosphorus (2.5-4.5) mg/dL Troponin T (0.00-0.029) ng/mL NT-Pro-B Natriuret Pep (0-450) pg/mL Albumin (3.9-5) g/dL HDL Cholesterol (40-59) mg/dL All other labs normal.
--- NOTE | 2019-06-12 12:45 | Consultation ---
History of Present Illness - Reason for Consult Consult date: 06/12/19 Requesting physician: SHAINA SINGH - History of Present Illness This is a 49 y/o M with PMH of ESRD on HD, polycystic kidney disease, HTN, Afib, recurrent ascites with abdominal draining catheter, and chronic bilateral lower extremity leg ulcers who presented to [facility] ED with c/o shortness of breath and fatigue. Pt was sent to the hospital from wound care center due to worsening shortness of breath. Pt also states he recently had his abdominal drain connector exchanged by Dr Castillo due to an area that was broke, but states he was instructed by Dr Castillo that he will need a CT scan for further evaluation given minimal output from drain. Pt was found to have hyperkalemia (K+ 6.9), s/p STAT HD early this morning, completed HD around 6 am per dialysis nurse. Pt seen in the chair in his room, states less shortness of breath, has abdominal drain connected to gravity bag. Sitter at bedside. Past History Past Medical History: anemia, dialysis, ESRD Medications and Allergies Allergies Allergy/AdvReac Type Severity Reaction Status Date / Time labetalol Allergy Vomiting Verified 10/16/18 15:22 polystyrene sulfonate Allergy Unknown Verified 10/16/18 13:24 [From Kayexalate] tramadol [From Ultram] AdvReac Dizziness Verified 03/05/18 15:30 Home Medications Medication Instructions Recorded Confirmed Last Taken Type Acetaminophen [Acetaminophen TAB] 1 tab PO Q4H PRN #14 tablet 05/16/19 06/04/19 Unknown Rx Melatonin [Melatonin 5MG TAB] 5 mg PO QHS PRN #30 tablet 05/16/19 06/04/19 Unknown Rx cloNIDine [Catapres] 0.2 mg PO BID #60 tablet 05/16/19 06/04/19 Unknown Rx guaiFENesin [Robitussin] 200 mg PO Q6H PRN 10 Days #1 bottle 05/26/19 06/04/19 Unknown Rx levoFLOXacin [Levaquin] 250 mg PO QDAY #7 tablet 05/26/19 06/04/19 Unknown Rx Pregabalin 75 mg PO BID #60 cap 06/06/19 Unknown Rx Pregabalin 75 mg PO BID #60 cap 06/06/19 Unknown Rx oxyCODONE /ACETAMINOPHEN [Percocet 1 tab PO Q6HR PRN #24 tablet 06/06/19 Unknown Rx 5/325] Active Meds: Active Medications Acetaminophen (Tylenol) 650 mg PO Q4H PRN PRN Reason: Pain MILD(1-3)/Fever >100.5/SWAIN Enoxaparin Sodium (Enoxaparin) 30 mg SUB-Q QDAY [facility] Last Admin: 06/12/19 10:00 Dose: 30 mg Documented by: Ondansetron HCl (Zofran) 4 mg IV Q8H PRN PRN Reason: Nausea And Vomiting Oxycodone/Acetaminophen (Percocet 5/325) 1 tab PO Q6H PRN PRN Reason: Pain, Moderate (4-6) Last Admin: 06/12/19 10:00 Dose: 1 tab Documented by: Sodium Chloride (Sodium Chloride Flush Syringe 10 Ml) 10 ml IV BID [facility] Last Admin: 06/12/19 10:00 Dose: 10 ml Documented by: Sodium Chloride (Sodium Chloride Flush Syringe 10 Ml) 10 ml IV PRN PRN PRN Reason: LINE FLUSH Review of Systems Constitutional: fatigue, weakness, no fever, no chills Cardiovascular: shortness of breath, dyspnea on exertion, leg edema, no chest pain Respiratory: shortness of breath, dyspnea on exertion Gastrointestinal: constipation, no abdominal pain, no nausea, no vomiting, no diarrhea, no hematemesis, no melena Musculoskeletal: limitation of motion, other (Bilateral leg wounds/pain) Integumentary: wounds, foot/leg ulcers (bilateal leg wounds/ulcers with dressing in place - goes to outpatient wound care) Neurological: weakness Psychiatric: depression Exam - Vital Signs Vital signs: Vital Signs Temp Pulse Resp BP Pulse Ox 97.6 F 81 22 132/84 86 06/11/19 11:17 06/11/19 11:17 06/11/19 11:17 06/11/19 11:17 06/11/19 11:17 - General Appearance General appearance: well-developed EENT: ATNC Neck: Present: neck supple Respiratory: Decreased Breath Sounds Heart: regular, S1S2, other (left AVF + thrill and bruit ) Gastrointestinal: Present: normoactive bowel sounds, other (abdominal drain catheter in place). Absent: tenderness Integumentary: ulcer (bilateral leg wounds with dressings in place) Neurologic: alert and oriented x3 Musculoskeletal: Present: other (2+ edema to BLE with skin wounds with dressing in place ) Psychiatric: cooperative (sitter at bedside) Results - Lab Results 06/11/19 13:56 06/11/19 23:24 Most recent lab results Calcium 9.0 mg/dL (8.4-10.2) 06/11/19 13:56 Phosphorus 9.90 mg/dL (2.5-4.5) H 06/11/19 13:56 Magnesium 2.30 mg/dL (1.7-2.3) 06/11/19 13:56 Assessment and Plan ESRD on HD, polycystic kidney disease Fluid overload Hyperkalemia Anemia Chronic Bilateral lower extremity skin wounds/ulcers Hx of Atrial Fibrillation ? Suicidal ideation Plan: - Repeat BMP now - S/p STAT HD eariler today for UF and clearance - HD again tomorrow for UF and clearance - Assess need for HD on daily basis - Low potassium diet - Psych on board for concern of suicidal ideation and depression - Renally dose meds - This pt undergoes outpatient HD at [facility] every TTS - Renal plan d/w Dr Billings
[2019-06-12] MEDS ORDERED: SODIUM CHLORIDE 0.9% 100 ML IV PRN (13:01)
[2019-06-12 17:07] LABS: Hematocrit 32.5 % (35.5-45.6); Hemoglobin 10.2 gm/dl (11.8-15.2); Mean Corpuscular HGB Conc 32 % (32-34); Mean Corpuscular Volume 102 fl (84-94); Platelet Count 229 K/mm3 (140-440); Red Blood Count 3.18 M/mm3 (3.65-5.03); Red Cell Distribution Width 19.2 % (13.2-15.2)
[2019-06-12 17:19] LABS: Calcium 9.4 mg/dL (8.4-10.2)
--- NOTE | 2019-06-12 19:04 | Event Note ---
Date: 06/12/19 Patient was admitted early this morning This history of end-stage renal disease on hemodialysis Suicidal ideation, on 1013 status Psych evaluation and recommendations noted and appreciated Discontinued 1013 status, advised to follow-up outpatient psych No indication for inpatient psych management Continue Hemodialysis per schedule Treat hyperkalemia with IV calcium gluconate Nephrology following
[2019-06-12] MEDS ORDERED: CALCIUM GLUCONATE 1,000 MG in SODIUM CHLORIDE 0.9% 100 ML IV ONE (19:30)
[2019-06-12] MEDS ORDERED: oxyCODONE /ACETAMINOPHEN 5-325MG TAB PO PRN (23:36)
[2019-06-13] MEDS ORDERED: oxyCODONE /ACETAMINOPHEN 5-325MG TAB PO PRN (08:47)
[2019-06-13] MEDS ORDERED: MELATONIN 5 MG TAB PO PRN (08:47)
--- NOTE | 2019-06-13 08:47 | Progress Note ---
Assessment and Plan Assessment and plan: --Fluid Overload/Hyperkalemia,/ESRSD need emergent HD s/p cocktail for hyperkalemia Renal following,HD per schedule dialysis --ESRD: HD per schedule --Hyperkalemia: HD per schedule,nephrology following --Suicidal Ideation Psych evaluated, Dced 1013, no indication for inpt psych management to f/o op --Abnormal cardiac enzymes, Chronic, asymptomatic check cardiac enzymes, consult cardiology --Afib stable, continue outpatient medications --Hypertension continue antihypertensives, add IV hydralazine as needed --Chronic lower extremity edema with ulcers s/p wound care this morning as outpatient --Polycystic kidney disease --DVT prophylaxis Hospitalist Physical - Constitutional Vitals: Temp Pulse Resp BP Pulse Ox 98.7 F 72 20 135/81 97 06/12/19 07:30 06/13/19 00:00 06/12/19 07:30 06/12/19 07:30 06/12/19 07:30 ISAI score - Isai Score Age > 65: (0) No Aspirin use within the Past 7 Days: (0) No 3 or more CAD Risk Factors: (1) Yes 2 or more Angina events in past 24 hrs: (1) Yes Known CAD with more than 50% Stenosis: (0) No Elevated Cardiac Markers: (1) Yes ST Deviation Greater than 0.5mm: (0) No ISAI Score: 3 Results - Labs CBC & Chem 7: 06/12/19 16:42 06/12/19 16:42 Labs: Laboratory Last Values WBC 7.7 K/mm3 (4.5-11.0) 06/12/19 16:42 RBC 3.18 M/mm3 (3.65-5.03) L 06/12/19 16:42 Hgb 10.2 gm/dl (11.8-15.2) L 06/12/19 16:42 Hct 32.5 % (35.5-45.6) L 06/12/19 16:42 MCV 102 fl (84-94) H 06/12/19 16:42 MCH 32 pg (28-32) 06/12/19 16:42 MCHC 32 % (32-34) 06/12/19 16:42 RDW 19.2 % (13.2-15.2) H 06/12/19 16:42 Plt Count 229 K/mm3 (140-440) 06/12/19 16:42 Lymph % (Auto) 20.1 % (13.4-35.0) 06/11/19 13:56 [place] % (Auto) 13.5 % (0.0-7.3) H 06/11/19 13:56 Eos % (Auto) 1.3 % (0.0-4.3) 06/11/19 13:56 Baso % (Auto) Paving Block Cutter 06/11/19 13:56 Lymph # 1.2 K/mm3 (1.2-5.4) 06/11/19 13:56 [place] # 0.8 K/mm3 (0.0-0.8) 06/11/19 13:56 Eos # 0.1 K/mm3 (0.0-0.4) 06/11/19 13:56 Baso # 0.1 K/mm3 (0.0-0.1) 06/11/19 13:56 Seg Neutrophils % 63.3 % (40.0-70.0) 06/11/19 13:56 Seg Neutrophils # 3.8 K/mm3 (1.8-7.7) 06/11/19 13:56 Sodium 136 mmol/L (137-145) L 06/12/19 16:42 Potassium 5.8 mmol/L (3.6-5.0) H 06/12/19 16:42 Chloride 93.0 mmol/L (98-107) L 06/12/19 16:42 Carbon Dioxide 23 mmol/L (22-30) 06/12/19 16:42 Anion Gap 26 mmol/L 06/12/19 16:42 BUN 55 mg/dL (9-20) H 06/12/19 16:42 Creatinine 9.1 mg/dL (0.8-1.5) H 06/12/19 16:42 Estimated GFR 8 ml/min 06/12/19 16:42 BUN/Creatinine Ratio 6 % 06/12/19 16:42 Glucose 81 mg/dL (75-100) 06/12/19 16:42 Calcium 9.4 mg/dL (8.4-10.2) 06/12/19 16:42 Phosphorus 9.90 mg/dL (2.5-4.5) H 06/11/19 13:56 Magnesium 2.30 mg/dL (1.7-2.3) 06/11/19 13:56 Total Bilirubin 0.50 mg/dL (0.1-1.2) 06/11/19 13:56 AST 25 units/L (5-40) 06/11/19 13:56 ALT 20 units/L (7-56) 06/11/19 13:56 Alkaline Phosphatase 77 units/L (35-129) 06/11/19 13:56 Troponin T 1.660 ng/mL (0.00-0.029) H* 06/11/19 18:06 NT-Pro-B Natriuret Pep > 21116 pg/mL (0-450) H 06/11/19 13:56 Total Protein 6.8 g/dL (6.3-8.2) 06/11/19 13:56 Albumin 3.7 g/dL (3.9-5) L 06/11/19 13:56 Albumin/Globulin Ratio 1.2 % 06/11/19 13:56 Triglycerides 56 mg/dL (2-149) 06/11/19 13:56 Cholesterol 176 mg/dL (50-199) 06/11/19 13:56 LDL Cholesterol Direct 103 mg/dL (50-130) 06/11/19 13:56 HDL Cholesterol 76 mg/dL (40-59) H 06/11/19 13:56 Cholesterol/HDL Ratio 2.31 % 06/11/19 13:56 Active Medications - Current Medications Current Medications: Generic Name Dose Route Start Last Admin Trade Name Freq PRN Reason Stop Dose Admin Acetaminophen 650 mg 06/12/19 04:50 Tylenol PO Q4H PRN Pain MILD(1-3)/Fever >100.5/SWAIN Enoxaparin Sodium 30 mg 06/12/19 10:00 06/12/19 10:00 Enoxaparin SUB-Q 30 mg QDAY [facility] Administration Sodium Chloride 100 mls @ 999 mls/hr 06/12/19 13:01 Nacl 0.9% IV JULIA PRN Hypotension Ondansetron HCl 4 mg 06/12/19 04:50 Zofran IV Q8H PRN Nausea And Vomiting Oxycodone/Acetaminophen 1 tab 06/12/19 23:36 06/13/19 07:57 Percocet 5/325 PO 1 tab Q4H PRN Administration Pain, Moderate (4-6) Sodium Chloride 10 ml 06/12/19 10:00 06/12/19 23:13 Sodium Chloride Flush Syringe 10 Ml IV Not Given BID [facility] Sodium Chloride 10 ml 06/12/19 04:50 Sodium Chloride Flush Syringe 10 Ml IV PRN PRN LINE FLUSH
[2019-06-13] MEDS: ENOXAPARIN 30 MG/0.3 ML INJ SUB-Q SCH (09:47)
[2019-06-13] MEDS ORDERED: cloNIDine 0.2 MG TAB PO SCH (10:00)
[2019-06-13] MEDS ORDERED: PREGABALIN 75 MG CAP PO SCH (10:00)
[2019-06-13 10:38] LABS: Hematocrit 27.4 % (35.5-45.6); Hemoglobin 8.8 gm/dl (11.8-15.2); Mean Corpuscular HGB Conc 32 % (32-34); Mean Corpuscular Volume 102 fl (84-94); Platelet Count 197 K/mm3 (140-440); Red Cell Distribution Width 18.7 % (13.2-15.2)
[2019-06-13] MEDS ORDERED: SODIUM CHLORIDE*PRIMING MACHINE ONLY FOR DIALYSIS MC ONE (10:41)
[2019-06-13 11:03] LABS: Calcium 8.9 mg/dL (8.4-10.2)
[2019-06-13 14:16] VITALS: BP 139/68
--- NOTE | 2019-06-13 15:04 | Discharge Summary ---
Providers - Providers Date of Admission: 06/12/19 00:50 Date of discharge: 06/13/19 Attending physician: DAHLIA MORIN 06/12/19 00:03 Consult to Physician [CONS] Routine Comment: Dr. Callejas spoke with Dr. Casey @ [phone] Consulting Provider: MARY JO CASEY Physician Instructions: Reason For Exam: hyperkalemia 06/12/19 04:50 psychiatry consult [Consult to Mental Health] [CONS] Routine Reason For Exam: SI 06/13/19 05:05 Consult to Wound/ET Nurse [CONS] Routine Reason For Exam: wound eval Primary care physician: TRAFFIC INVESTIGATOR Hospitalization Reason for admission: Suicidal ideation, fluid overload due to ESRD Condition: Fair Pertinent studies: CXR Hospital course: 49-year-old man with a history of polycystic kidney disease, hypertension, Afib, recurrent ascites, chronic lower extremity ulcers, end-stage renal disease on dialysis comes emergency room with complaints of shortness of breath. Patient states he went to the wound care today, while he was there they noted that his breathing was labored and they sent him to the emergency room for further evaluation. He has chronic ascites with indwelling catheter that drains <1 a day. Admits to being depressed because of his chronic medical problems, wished he could take something and not wake up, was very tearful in the emergency room.Patient also had suicidal thots and ideationAdmitted and placed on suicidal watch,1013 status.Evaluated by Psych,no indication for inpt psych management,Discontinued 1013 status.Patient received HD per schedule.Symptoms resolved ,Today patient is comfortable,no new complaints,vital signs stable. Physical exam unremarkable. Cleared by renal and psych. Stable at discharge Discharge Diagnosis: --Suicidal Ideation Psych evaluated,Dced 1013, no indication for inpt psych management,to f/u op --Fluid Overload/Hyperkalemia,/ESRSD need emergent HD s/p cocktail for hyperkalemia Renal following,HD per schedule dialysis --ESRD: HD per schedule --Hyperkalemia: HD per schedule,nephrology following --Abnormal cardiac enzymes, Chronic, asymptomatic check cardiac enzymes, consult cardiology --Afib stable, continue outpatient medications --Hypertension continue antihypertensives, add IV hydralazine as needed --Chronic lower extremity edema with ulcers s/p wound care this morning as outpatient --Polycystic kidney disease --DVT prophylaxis Stable at discharge Disposition: LUIS TO HOME OR SELFCARE Time spent for discharge: 32 min Core Measure Documentation - Palliative Care Palliative Care/ Comfort Measures: Not Applicable - Core Measures Any of the following diagnoses?: none Exam - Constitutional Vitals: Temp Pulse Resp BP Pulse Ox 98.8 F 78 18 139/68 98 06/13/19 14:05 06/13/19 14:05 06/13/19 14:05 06/13/19 14:05 06/13/19 10:00 General appearance: Present: no acute distress, well-nourished, obese - EENT Eyes: Present: PERRL, EOM intact - Neck Neck: Present: supple, normal ROM - Respiratory Respiratory effort: normal Respiratory: bilateral: diminished, negative: rales, rhonchi, wheezing - Cardiovascular Rhythm: regular Heart Sounds: Present: S1 & S2 - Extremities Extremities: no ischemia, No edema - Abdominal General gastrointestinal: Present: soft, non-tender, non-distended, normal bowel sounds - Integumentary Integumentary: Present: clear, warm - Musculoskeletal Musculoskeletal: strength equal bilaterally - Psychiatric Psychiatric: appropriate mood/affect, cooperative - Neurologic Neurologic: CNII-XII intact, moves all extremities Plan Activity: advance as tolerated Diet: renal Additional Instructions: Renal/HD per schedule. Advised to see out patient pych in 3-5 days Follow up with: PRIMARY CARE, [Primary Care Provider] - 3-5 Days ROSAS JOHNSON MD [Staff Physician] - 7 Days Prescriptions: oxyCODONE /ACETAMINOPHEN [Percocet 5/325] 1 tab PO BID PRN #10 tablet PRN Reason: Pain , Severe (7-10) Pregabalin 75 mg PO BID #60 cap guaiFENesin [Robitussin] 200 mg PO Q6H PRN 10 Days #1 bottle PRN Reason: Cough
== END 2019-06-13 17:11 | disposition home or self-care (01) ==
LOC: ED 11:09 → 4A 06-12 00:50 → INTOOBSV 06-12 00:50 → 4A 06-12 07:49
PROVIDERS: ADMIT Internal Medicine; ATTEND Internal Medicine
DX: I13.0 Hypertensive heart and chronic kidney disease with heart failure and stage 1 through stage 4 chronic kidney disease, or unspecified chronic kidney disease (principal); N18.6 End stage renal disease; I50.9 Heart failure, unspecified; Q61.3 Polycystic kidney, unspecified; L97.909 Non-pressure chronic ulcer of unspecified part of unspecified lower leg with unspecified severity; E87.70 Fluid overload, unspecified; E87.5 Hyperkalemia; R45.851 Suicidal ideations; I48.91 Unspecified atrial fibrillation; F32.9 Major depressive disorder, single episode, unspecified; Z79.899 Other long term (current) drug therapy; Z88.6 Allergy status to analgesic agent; Z88.8 Allergy status to other drugs, medicaments and biological substances
CPT/HCPCS: 36415; 71046; 80048; 80053; 80061; 83735; 83880; 84100; 84132; 84484; 85025; 85027; 93005; 93010; 96372; 96374; 96375; 96376; 99291; G0378; J0610; J1650; J2270; J7030; J1815

== ENCOUNTER 2019-07-16 16:14 | Inpatient (IN) | payer MEDICARE ==
--- NOTE | 2019-07-16 17:01 | Emergency Department Report ---
ED General Adult HPI - General Chief complaint: Weakness Stated complaint: MISSED DIALYSIS Time Seen by Provider: 07/16/19 16:57 Source: patient, EMS Mode of arrival: Stretcher Limitations: Physical Limitation - History of Present Illness Initial comments: 49-year-old man with a history of polycystic kidney disease, hypertension, Afib, recurrent ascites, chronic lower extremity ulcers, end-stage renal disease on dialysis comes emergency room with complaints of body aches and weakness. Patient states that he has missed his last 2 dialysis treatments. Patient states that Monday he missed because he had an appointment at his wound care doctor and he drove to that appointment. Patient states that his transportation was not set up on Monday so he missed dialysis. Patient denies any current syncopal episodes. Patient denies any vomiting diarrhea. Patient claims of bilateral lower extremity pain. Patient states that he is having chest pain but he believes that that is secondary to him having a recent cardiac arrest and he did CPR on him while at [facility] at the end of May 2019. - Related Data Previous Rx's Medication Instructions Recorded Last Taken Type Acetaminophen [Acetaminophen TAB] 1 tab PO Q4H PRN #14 tablet 05/16/19 Unknown Rx Melatonin [Melatonin 5MG TAB] 5 mg PO QHS PRN #30 tablet 05/16/19 2 Days Ago Rx ~06/10/19 cloNIDine [Catapres] 0.2 mg PO BID #60 tablet 05/16/19 2 Days Ago Rx ~06/10/19 levoFLOXacin [Levaquin TAB] 250 mg PO QDAY #7 tablet 05/26/19 Unknown Rx Pregabalin 75 mg PO BID #60 cap 06/13/19 Unknown Rx guaiFENesin [Robitussin] 200 mg PO Q6H PRN 10 Days #1 bottle 06/13/19 Unknown Rx oxyCODONE /ACETAMINOPHEN [Percocet 1 tab PO BID PRN #10 tablet 06/13/19 Unknown Rx 5/325] Allergies Allergy/AdvReac Type Severity Reaction Status Date / Time labetalol Allergy Vomiting Verified 10/16/18 15:22 polystyrene sulfonate Allergy Unknown Verified 10/16/18 13:24 [From Kayexalate] tramadol [From Ultram] AdvReac Dizziness Verified 03/05/18 15:30 ED Review of Systems ROS: Stated complaint: MISSED DIALYSIS Other details as noted in HPI Constitutional: denies: chills, fever Eyes: denies: eye pain, eye discharge, vision change ENT: denies: ear pain, throat pain Respiratory: SOB at rest Cardiovascular: denies: chest pain, palpitations Endocrine: no symptoms reported Gastrointestinal: denies: abdominal pain, nausea, diarrhea Genitourinary: denies: urgency, dysuria Musculoskeletal: denies: back pain, joint swelling, arthralgia Skin: denies: rash, lesions Neurological: denies: headache, weakness, paresthesias Psychiatric: denies: anxiety, depression Hematological/Lymphatic: denies: easy bleeding, easy bruising ED Past Medical Hx - Past Medical History Hx Hypertension: Yes Hx CVA: No Hx Heart Attack/AMI: No Hx Congestive Heart Failure: No Hx Diabetes: No Hx Deep Vein Thrombosis: No Hx Pulmonary Embolism: No Hx GERD: Yes Hx Liver Disease: No Hx Renal Disease: Yes (ESRD Tues, Th, Sat. [facility]) Hx Sickle Cell Disease: No Hx Arthritis: No Hx Headaches / Migraines: No Hx Seizures: No Hx Kidney Stones: No Hx Psychiatric Treatment: No Hx Asthma: No Hx COPD: No Hx Tuberculosis: No Hx Dementia: No Hx HIV: No Additional medical history: Abdominal Hernias, right groin hernia, ascites - Surgical History Hx Coronary Stent: No Hx Open Heart Surgery: No Hx Pacemaker: No Hx Internal Defibrillator: No Hx Cholecystectomy: No Hx Appendectomy: No Hx Breast Surgery: No Additional Surgical History: dialysis access left arm, groin hernia repair, - Social History Smoking Status: Never Smoker Substance Use Type: None - Medications Home Medications: Home Medications Medication Instructions Recorded Confirmed Last Taken Type Acetaminophen [Acetaminophen TAB] 1 tab PO Q4H PRN #14 tablet 05/16/19 06/12/19 Unknown Rx Melatonin [Melatonin 5MG TAB] 5 mg PO QHS PRN #30 tablet 05/16/19 06/12/19 2 Days Ago Rx ~06/10/19 cloNIDine [Catapres] 0.2 mg PO BID #60 tablet 05/16/19 06/12/19 2 Days Ago Rx ~06/10/19 levoFLOXacin [Levaquin TAB] 250 mg PO QDAY #7 tablet 05/26/19 06/12/19 Unknown Rx Pregabalin 75 mg PO BID #60 cap 06/13/19 Unknown Rx guaiFENesin [Robitussin] 200 mg PO Q6H PRN 10 Days #1 bottle 06/13/19 Unknown Rx oxyCODONE /ACETAMINOPHEN [Percocet 1 tab PO BID PRN #10 tablet 06/13/19 Unknown Rx 5/325] ED Physical Exam - General Limitations: Physical Limitation General appearance: alert, other (uncomfortable; ) - Head Head exam: Present: atraumatic, normocephalic - Eye Eye exam: Present: normal appearance - ENT ENT exam: Present: mucous membranes moist - Neck Neck exam: Present: normal inspection - Respiratory Respiratory exam: Present: normal lung sounds bilaterally. Absent: respiratory distress - Cardiovascular Cardiovascular Exam: Present: regular rate, normal rhythm. Absent: systolic murmur, diastolic murmur, rubs, gallop - GI/Abdominal GI/Abdominal exam: Present: soft, distended (mild ), normal bowel sounds - Rectal Rectal exam: Present: deferred - Extremities Exam Extremities exam: Present: other (bilateral wounds dressed with lymphedema bilaterally in lower extremities) - Back Exam Back exam: Present: normal inspection - Neurological Exam Neurological exam: Present: alert, oriented X3 - Psychiatric Psychiatric exam: Present: normal affect, normal mood - Skin Skin exam: Present: warm, dry, intact, normal color. Absent: rash ED Course Vital Signs 07/16/19 07/16/19 07/16/19 16:32 17:01 21:33 Temperature 98.6 F Pulse Rate 86 Pulse Rate [ 72 Bilateral Throughout] Respiratory 20 18 Rate Respiratory 18 Rate [Bilateral Throughout] Blood Pressure 118/78 O2 Sat by Pulse 97 99 Oximetry ED Medical Decision Making - Lab Data Result diagrams: 07/16/19 19:49 07/16/19 20:00 - EKG Data EKG shows normal: sinus rhythm Rate: normal - EKG Data When compared to previous EKG there are: no significant change Interpretation: no acute changes - Medical Decision Making Patient to be admitted to the hospitalist service for continued management and treatment. Patient noted to be hyperkalemic but states that he is allergic to Kayexalate therapy. Patient's case discussed with with nephrology who will set patient up for emergent dialysis. Patient currently is on oxygen requirement of 2 L is oriented to person place and time. Patient received albuterol calcium insulin glucose therapy while here in the emergency department as well. - Differential Diagnosis STEMI; NSTEMI; Dehydration; Anemia Critical Care Time: Yes Critical care time in (mins) excluding proc time.: 42 Critical care attestation.: If time is entered above; I have spent that time in minutes in the direct care of this critically ill patient, excluding procedure time. Total amount of critical care includes time spent with direct bedside care, physician consultation, and frequent reassessment. ED Disposition Clinical Impression: Acute on chronic combined systolic and diastolic congestive heart failure, ESRD (end stage renal disease), Acidosis, Hyperkalemia, Volume overload, Acute respiratory failure with hypoxia Disposition: 09 OP ADMIT IP TO THIS HOSP Is pt being admited?: Yes Condition: Fair Time of Disposition: 21:53 Print Language: TURKISH
[2019-07-16] MEDS ORDERED: oxyCODONE /ACETAMINOPHEN 5-325MG TAB PO ONE (17:33)
[2019-07-16 18:48] LABS: ABG Base Excess -4.1 mmol/L (-2.0-3.0); ABG HCO3 21.3 mmol/L (20.0-26.0); ABG Methemoglobin 0.7 % (0.0-1.5); ABG Oxygen Saturation 85.2 % (95.0-99.0); ABG PCO2 40.3 mm Hg; ABG PH 7.341 pH Units (7.350-7.450); ABG PO2 60.3 mm Hg (80.0-90.0)
[2019-07-16 20:01] LABS: Hematocrit 32.6 % (35.5-45.6); Mean Corpuscular HGB Conc 31 % (32-34); Mean Corpuscular Volume 97 fl (84-94); Red Blood Count 3.36 M/mm3 (3.65-5.03)
[2019-07-16 20:26] LABS: Albumin 3.5 g/dL (3.9-5); Calcium 9.1 mg/dL (8.4-10.2)
[2019-07-16 20:47] LABS: Chol/HDL Ratio 2.53 %
[2019-07-16 21:08] LABS: Platelet Count 269 K/mm3 (140-440)
[2019-07-16] MEDS ORDERED: ALBUTEROL 2.5 MG/3 ML NEBU IH ONE (21:14)
[2019-07-16] MEDS ORDERED: CALCIUM GLUCONATE 1,000 MG in SODIUM CHLORIDE 0.9% 100 ML IV ONE (21:15)
[2019-07-16] MEDS ORDERED: INSULIN REGULAR, HUMAN 100 UNITS/1 ML IV ONE (21:15)
[2019-07-16] MEDS ORDERED: DEXTROSE 50% IN WATER (25GM) 50 ML VIAL IV ONE (21:15)
[2019-07-16] MEDS ORDERED: SODIUM BICARBONATE 150 MEQ in DEXTROSE 5% IN WATER 1,000 ML IV ONE (21:15)
--- NOTE | 2019-07-16 21:15 | XRay Report ---
CHEST 1 VIEW INDICATION / CLINICAL INFORMATION: shortness of breth. COMPARISON: 06/11/2019 FINDINGS: SUPPORT DEVICES: None. HEART / MEDIASTINUM: Stable moderate cardiomegaly LUNGS / PLEURA: Interstitial pulmonary edema appears more prominent than on the comparison study. No evidence of airspace consolidation. No pneumothorax. ADDITIONAL FINDINGS: No significant additional findings. IMPRESSION: 1. Cardiomegaly and diffuse interstitial disease likely representing pulmonary edema. Signer Name: Fahad Marsh MD Signed: 07/16/2019 9:10 PM Workstation Name: [id number]
[2019-07-16] MEDS ORDERED: FUROSEMIDE 100 MG/10 ML INJ IV ONE (21:31)
[2019-07-16] MEDS ORDERED: HEPARIN 10,000 UNITS/10 ML VIAL IV PRN (21:32)
[2019-07-16] MEDS ORDERED: SODIUM CHLORIDE 0.9% 100 ML IV PRN ×2 (21:32→22:41)
--- NOTE | 2019-07-16 21:59 | History and Physical Report ---
History of Present Illness Date of examination: 07/16/19 Date of admission: 07/16/19 Chief complaint: Weakness, shortness of breath History of present illness: Patient is a 48-year-old male with history of GERD, ESRD on HD, polycystic kidney disease, CHF(EF 25%), hypertension and A. fib who presents to ER with complaints of shortness of breath, increased abdominal girth and bilateral leg swelling. Patient states that he usually dialyzes T,Th,S but he has missed the last 2 days due to transportation issues. Pt states that he is experiencing generalized weakness and shortness of breath, over the past 3 days with progressively worsening symptoms over the past 2 days. . Pt denies fever, chills, CP, palpitations, NVD, or recent ill contacts but sts he was recently discharged from [facility] for a "heart attack". Nephrology consulted in ED for urgent dialysis Past History Past Medical History: hypertension, other (recurrent ascites,chronic lower extremity ulcers, as noted in hpi) Past Surgical History: Other (left arm AV Fistula, groin hernia repair)) Social history: lives with family Family history: hypertension Medications and Allergies Allergies Allergy/AdvReac Type Severity Reaction Status Date / Time labetalol Allergy Vomiting Verified 10/16/18 15:22 polystyrene sulfonate Allergy Unknown Verified 10/16/18 13:24 [From Kayexalate] tramadol [From Ultram] AdvReac Dizziness Verified 03/05/18 15:30 Home Medications Medication Instructions Recorded Confirmed Last Taken Type Acetaminophen [Acetaminophen TAB] 1 tab PO Q4H PRN #14 tablet 05/16/19 06/12/19 Unknown Rx Melatonin [Melatonin 5MG TAB] 5 mg PO QHS PRN #30 tablet 05/16/19 06/12/19 2 Days Ago Rx ~06/10/19 cloNIDine [Catapres] 0.2 mg PO BID #60 tablet 05/16/19 06/12/19 2 Days Ago Rx ~06/10/19 levoFLOXacin [Levaquin TAB] 250 mg PO QDAY #7 tablet 05/26/19 06/12/19 Unknown Rx Pregabalin 75 mg PO BID #60 cap 06/13/19 Unknown Rx guaiFENesin [Robitussin] 200 mg PO Q6H PRN 10 Days #1 bottle 06/13/19 Unknown Rx oxyCODONE /ACETAMINOPHEN [Percocet 1 tab PO BID PRN #10 tablet 06/13/19 Unknown Rx 5/325] Active Meds: Active Medications Heparin Sodium (Porcine) (Heparin 10,000 Units/10 Ml) 2,000 unit IV JULIA PRN PRN Reason: hemodialysis Sodium Bicarbonate 150 meq/ (Dextrose) 1,150 mls @ 75 mls/hr IV DIRECT ONE Stop: 07/17/19 12:34 Sodium Chloride (Nacl 0.9%) 100 mls @ 999 mls/hr IV JULIA PRN PRN Reason: Hypotension Review of Systems All systems: negative Cardiovascular: dyspnea on exertion, high blood pressure, leg edema Respiratory: shortness of breath, dyspnea on exertion Integumentary: sores, wounds, darkening of skin Exam - Physical Exam Narrative exam: General appearance: Present: Mild distress, alert and oriented 3, well developed, pleasant, adult -Burmese male - EENT Eyes: Present: PERRL, EOM intact, ENT: hearing intact, normal dentition - Neck Neck: Present: supple, normal ROM - Respiratory Respiratory effort: Non-labored Respiratory: Bibasilar crackles - Cardiovascular Heart Sounds: Present Rhythm: SB Heart Sounds: Present: - Extremities Extremities: no ischemia, pulses intact, chronic bilateral lower extremity lymphedema - Peripheral Assessment Peripheral Pulses: within normal limits - Abdominal General gastrointestinal: , non-tender, normal bowel sounds - Integumentary Integumentary: Present: warm, dry, - Musculoskeletal Musculoskeletal: Able to move all extremities -Neurological Neurological: CN II-XII grossly intact - Psychiatric Psychiatric: cooperative - Constitutional Vitals: Temp Pulse Resp BP Pulse Ox 98.6 F 72 18 118/78 99 07/16/19 16:32 07/16/19 21:33 07/16/19 21:33 07/16/19 16:32 07/16/19 17:01 ISAI score - Isai Score Age > 65: (0) No Aspirin use within the Past 7 Days: (0) No 3 or more CAD Risk Factors: (1) Yes 2 or more Angina events in past 24 hrs: (1) Yes Known CAD with more than 50% Stenosis: (0) No Elevated Cardiac Markers: (1) Yes ST Deviation Greater than 0.5mm: (0) No ISAI Score: 3 Results - Labs CBC & Chem 7: 07/16/19 19:49 02/18/20 20:00 Labs: Laboratory Last Values WBC 8.1 K/mm3 (4.5-11.0) 07/16/19 19:49 RBC 3.36 M/mm3 (3.65-5.03) L 07/16/19 19:49 Hgb 10.0 gm/dl (11.8-15.2) L 07/16/19 19:49 Hct 32.6 % (35.5-45.6) L 07/16/19:49 MCV 97 fl (84-94) H 07/16/19 19:49 MCH 30 pg (28-32) 07/16/19: MCHC 31 % (32-34) L 07/16/19: RDW 20.0 % (13.2-15.2) H 07/16/19 19:49 Plt Count 269 K/mm3 (140-440) 07/16/19:49 ABG pH 7.341 pH Units (7.350-7.450) L 07/16/19 18:25 ABG pCO2 40.3 mm Hg 07/16/19 18:25 ABG pO2 60.3 mm Hg (80.0-90.0) L 07/16/19 18:25 ABG HCO3 21.3 mmol/L (20.0-26.0) 07/16/19 18:25 ABG O2 Saturation 85.2 % (95.0-99.0) L 07/16/19 18:25 ABG O2 Content 9.9 (0.0-44) 07/16/19 18:25 ABG Base Excess -4.1 mmol/L (-2.0-3.0) L 07/16/19 18:25 ABG Hemoglobin 8.4 gm/dl (14.0-18.0) L 07/16/19 18:25 ABG Carboxyhemoglobin 2.1 % (0.0-5.0) 07/16/19 18:25 ABG Methemoglobin 0.7 % (0.0-1.5) 07/16/19 18:25 Oxyhemoglobin 82.8 % (95.0-99.0) L 07/16/19 18:25 FiO2 21 % 07/16/19 18:25 Sodium 135 mmol/L (137-145) L 07/16/19 20:00 Potassium 5.8 mmol/L (3.6-5.0) H 07/16/19 20:00 Chloride 93.6 mmol/L (98-107) L 07/16/19 20:00 Carbon Dioxide 20 mmol/L (22-30) L 07/16/19 20:00 Anion Gap 27 mmol/L 07/16/19 20:00 BUN 73 mg/dL (9-20) H 07/16/19 20:00 Creatinine 13.1 mg/dL (0.8-1.5) H 07/16/19 20:00 Estimated GFR 5 ml/min 07/16/19 20: BUN/Creatinine Ratio 6 % 07/16/19:00 Glucose 104 mg/dL (75-100) H 07/16/19 20:00 Calcium 9.1 mg/dL (8.4-10.2) 07/16/19 20:00 Total Bilirubin 0.50 mg/dL (0.1-1.2) 07/16/19 20:00 AST 18 units/L (5-40) 07/16/19 20:00 ALT 15 units/L (7-56) 07/16/19 20:00 Alkaline Phosphatase 116 units/L (35-129) 07/16/19 20:00 Total Creatine Kinase 479 units/L (55-170) H 07/16/19 20:00 Troponin T 0.940 ng/mL (0.00-0.029) H* 07/16/19:00 Total Protein 6.8 g/dL (6.3-8.2) 07/16/19 20: Albumin 3.5 g/dL (3.9-5) L 07/16/19 20:00 Albumin/Globulin Ratio 1.1 % 07/16/19 20:00 Triglycerides 57 mg/dL (2-149) 07/16/19 20:00 Cholesterol 124 mg/dL (50-199) 07/16/19 20:00 LDL Cholesterol Direct 77 mg/dL (50-130) 07/16/19 20:00 HDL Cholesterol 49 mg/dL (40-59) 07/16/19 20:00 Cholesterol/HDL Ratio 2.53 % 07/16/19: - Imaging and Cardiology Chest x-ray: report reviewed (Cardiomegaly and diffuse interstitial disease likely representing pulmonary edema) Assessment and Plan Assessment and plan: Patient seen in conjunction with Dr. Cohen, who agrees with plan of care. Acute respiratory failure with hypoxia -symptoms suspected secondary to combination of fluid overload -Supplemental oxygen -nebulizer therapy, -pulse oximetry, NIPPV as clinically indicated, -urgent dialysis ESRD on HD - // -Last dialyzed on 07/11 -Nephrology following with plans for urgent dialysis -Strict I/O, daily weight, -monitor uop q shift - avoid nephrotoxic agents Acidosis -supportive care, -Likely secondary to renal failure -repeat labs in AM -IV therapy as clinically indicated Hyperkalemia - 5.8 on admission -Received hyperkalemic cocktail -Continue to monitor electrolytes Acute on chronic CHF, -Monitor input and output. --EF 20-25% 01/14 -Continue home meds once reconciled Elevated Troponin -chronically elevated -asymptomatic -continue to trend Chronic lower extremity edema with ulcers wound care consult -pt under outpt management Noncompliance -couneling provided. HTN -Monitor BP -Resume home antihypertensive meds to optimize BP -IV hydralazine when necessary DVT PPX SCD to BLE while in bed, Advance Directives: No VTE prophylaxis?: Mechanical Plan of care discussed with patient/family: Yes
[2019-07-16] MEDS ORDERED: ACETAMINOPHEN 325 MG TAB PO PRN (22:29)
[2019-07-16] MEDS ORDERED: ONDANSETRON 4 MG/2 ML INJ IV PRN (22:29)
[2019-07-16] MEDS ORDERED: oxyCODONE /ACETAMINOPHEN 5-325MG TAB ONE (23:09)
[2019-07-17 00:23] LABS: Hepatitis B Surface Antigen Non-Reactive (Negative); Hepatitis C Virus Antibody Non-Reactive (NonReactive)
[2019-07-17] MEDS: oxyCODONE /ACETAMINOPHEN 5-325MG TAB PO PRN ×2 (01:35→07:49)
[2019-07-17 04:31] LABS: Hematocrit 27.2 % (35.5-45.6); Hemoglobin 8.6 gm/dl (11.8-15.2); Mean Corpuscular HGB Conc 32 % (32-34); Mean Corpuscular Volume 93 fl (84-94); Platelet Count 242 K/mm3 (140-440); Red Blood Count 2.94 M/mm3 (3.65-5.03); Red Cell Distribution Width 19.2 % (13.2-15.2)
[2019-07-17 05:40] LABS: Basophils % (Manual) 0 % (0.0-1.8); Total Cells Counted 100
[2019-07-17 05:42] LABS: Anisocytosis Few; Platelet Estimate Consistent w Auto; Schistocytes Few
--- NOTE | 2019-07-17 07:40 | Consultation ---
History of Present Illness - Reason for Consult Consult date: 07/17/19 end stage renal disease, hyperkalemia - History of Present Illness This is a 49 year old male patient who has pmh significant for end stage renal disease (on dialysis), polycystic kidney disease, hypertension, a.fib, GERD, and CHF (EF 25%). Patient's home dialysis unit is [facility] and he dialyzes on a schedule. He missed 2 treatments and last outpatient HD was 07/11. He states he had trouble walking and was unable to go. He presented to the ED with complaints of shortness of breath, increased abdominal swelling, and worsening edema of the bilateral lower extremities. He states he has had generalized weakness in addition to the other symptoms for approximately 3 days and they have not improved. He was emergently dialyzed overnight. He denies fever, chills, chest pain, nausea, vomiting, diarrhea. He was recently discharged from [facility] and was in the process of obtaining home nursing and PT. According to denis alford, he had only set up initial consultation. He denies use of NSAIDs. Denies smoking or alcohol use. States he follows low salt, moderate protein diet. States he is not compliant with fluid restrictions. He does have a drain in the abdomen which he drains himself daily and typically pulls off 200-300 cc/day. Labs on admission were significant for potassium 5.8, sodium 135, bicarb 20, creatinine 13.1, and troponin 0.940. Labs at time of consultation were significant for creatinine 10.6. Nephrology was consulted for further evaluation and treatment of end stage renal disease and hyperkalemia. Past History Past Medical History: hypertension, other (recurrent ascites,chronic lower extremity ulcers, as noted in hpi) Past Surgical History: Other (left arm AV Fistula, groin hernia repair)) Social history: lives with family Family history: hypertension Medications and Allergies Allergies Allergy/AdvReac Type Severity Reaction Status Date / Time labetalol Allergy Vomiting Verified 10/16/18 15:22 polystyrene sulfonate Allergy Unknown Verified 10/16/18 13:24 [From Kayexalate] tramadol [From Ultram] AdvReac Dizziness Verified 03/05/18 15:30 Home Medications Medication Instructions Recorded Confirmed Last Taken Type Acetaminophen [Acetaminophen TAB] 1 tab PO Q4H PRN #14 tablet 05/16/19 07/17/19 Unknown Rx levoFLOXacin [Levaquin TAB] 250 mg PO QDAY #7 tablet 05/26/19 07/17/19 Unknown Rx oxyCODONE /ACETAMINOPHEN [Percocet 1 tab PO BID PRN #10 tablet 06/13/19 07/17/19 07/15/19 Rx 5/325 mg] Melatonin [Melatonin 5MG TAB] 5 mg PO QHS PRN #30 tablet 07/17/19 Unknown Rx Pregabalin 75 mg PO BID #60 cap 07/17/19 Unknown Rx cloNIDine [Catapres] 0.2 mg PO BID #60 tablet 07/17/19 Unknown Rx guaiFENesin [Robitussin] 200 mg PO Q6H PRN 10 Days #1 bottle 07/17/19 Unknown Rx Active Meds: Active Medications Acetaminophen (Tylenol) 650 mg PO Q4H PRN PRN Reason: Pain MILD(1-3)/Fever >100.5/SWAIN Famotidine (Pepcid) 10 mg IV BID FOSTER Heparin Sodium (Porcine) (Heparin 10,000 Units/10 Ml) 2,000 unit IV JULIA PRN PRN Reason: hemodialysis Sodium Bicarbonate 150 meq/ (Dextrose) 1,150 mls @ 75 mls/hr IV DIRECT ONE Stop: 07/17/19 12:34 Last Admin: 07/16/19 21:30 Dose: 75 mls/hr Documented by: Sodium Chloride (Nacl 0.9%) 100 mls @ 999 mls/hr IV JULIA PRN PRN Reason: Hypotension Ondansetron HCl (Zofran) 4 mg IV Q8H PRN PRN Reason: Nausea And Vomiting Oxycodone/Acetaminophen (Percocet 5/325) 1 tab PO Q6H PRN PRN Reason: Pain, Moderate (4-6) Last Admin: 07/17/19 01:35 Dose: 1 tab Documented by: Pneumococcal Polyvalent Vaccine (Pneumovax 23) 0.5 ml IM .ONCE ONE Stop: 07/17/19 12:01 Review of Systems Constitutional: no weight loss, no fever, no chills, no sweats, no fatigue Ears, nose, mouth and throat: no nasal discharge, no sinus pain, no epistaxis Cardiovascular: edema (BLE), shortness of breath, no chest pain Respiratory: shortness of breath, no cough, no wheezing Gastrointestinal: no abdominal pain, no nausea, no vomiting, no diarrhea Musculoskeletal: muscle weakness Integumentary: no rash, no pruritis, no sores Exam - Vital Signs Vital signs: Vital Signs Temp Pulse Resp BP Pulse Ox 98.6 F 86 20 118/78 97 07/16/19 16:32 07/16/19 16:32 07/16/19 16:32 07/16/19 16:32 07/16/19 16:32 - General Appearance General appearance: well-developed, appears stated age, obese, other (appears uncomfortable but not in distress) EENT: ATNC, PERRL, mucous membranes moist Neck: Present: neck supple, trachea midline Respiratory: Decreased Breath Sounds (bibasilar) Heart: regular, normal heart rate, no murmurs Gastrointestinal: Present: normal, normoactive bowel sounds, other (drain present) Integumentary: no rash, warm and dry, other (bilateral wounds dressed with lymphedema bilaterally in lower extremities) Neurologic: no focal deficit, alert and oriented x3 Musculoskeletal: Present: other (AV fistula LA) Psychiatric: mood/affect appropriate, cooperative Results - Lab Results 07/17/19 04:14 07/17/19 04:14 Most recent lab results ABG pH 7.341 pH Units (7.350-7.450) L 07/16/19 18:25 ABG pCO2 40.3 mm Hg 07/16/19 18:25 ABG pO2 60.3 mm Hg (80.0-90.0) L 07/16/19 18:25 ABG HCO3 21.3 mmol/L (20.0-26.0) 07/16/19 18:25 ABG O2 Saturation 85.2 % (95.0-99.0) L 07/16/19 18:25 Calcium 9.0 mg/dL (8.4-10.2) 07/17/19 04:14 Assessment and Plan 1. End stage renal disease on HD: at [facility]. Noncompliant. Last outpatient HD 07/11. Strict I&O. Avoid nephrotoxic agents. Meds dosage based on GFR. Urgent HD on admission overnight 07/16. Hemodialysis: 07/16, 07/17. 2. FEN: Hyperkalemia, improved with HD, monitor. Metabolic acidosis, monitor. Monitor lytes. 3. Acute respiratory failure with hypoxia: 2/2 fluid overload. 4. Acute on chronic CHF: Strict I&O. EF 20-25% 01/14. 5. Elevated Troponin: Chronically elevated. 6. Chronic lower extremity edema: Wound care consulted. 7. Hypertension: Monitor. 8. Noncompliance: Counseled on importance of attending scheduled HD sessions. Counseled on importance of following fluid restrictions.
[2019-07-17 07:59] VITALS: BP 117/55
[2019-07-17] MEDS ORDERED: SODIUM CHLORIDE 0.9% 100 ML IV PRN (09:10)
[2019-07-17] MEDS ORDERED: EPOETIN ALFA 10,000 UNIT/1 ML INJ SUB-Q PRN (09:13)
[2019-07-17] MEDS ORDERED: FAMOTIDINE 20 MG/2 ML INJ IV SCH (10:00)
--- NOTE | 2019-07-17 11:00 | Discharge Summary ---
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 patient with severe Nerve damage and chronic lower ext wounds. Also is there any assistance for transportation Primary care physician: [employer] CLERK Hospitalization Reason for admission: Shortness of breath Condition: Stable Hospital course: Patient is a 48-year-old male with history of GERD, ESRD on HD, polycystic kidney disease, CHF(EF 25%), hypertension and A. fib who presents to [facility] with complaints of shortness of breath, increased abdominal girth and bilateral leg swelling. Patient states that he usually dialyzes T,, but he has missed the last 2 days due to transportation issues. Pt states that he is experiencing generalized weakness and shortness of breath, over the past 3 days with progressively worsening symptoms over the past 2 days. . Pt denies fever, chills, CP, palpitations, NVD, or recent ill contacts but sts he was recently discharged from [facility] for a "heart attack". Nephrology consulted in ED for urgent dialysis Acute respiratory failure with hypoxia -symptoms suspected secondary to combination of fluid overload, improved with dialysis -Supplemental oxygen -nebulizer therapy, -pulse oximetry, NIPPV as clinically indicated, -urgent dialysis ESRD on HD - // -Last dialyzed on 07/11 -Nephrology following with plans for urgent dialysis -Strict I/O, daily weight, -monitor uop q shift - avoid nephrotoxic agents Extensive counseling provided to the patient on the need to be compliant with dialysis Case management consulted to assist patient with arranging for transportation. Metabolic acidosis -supportive care, -Likely secondary to renal failure Hyperkalemia - 5.8 on admission -Received hyperkalemic cocktail -Continue to monitor electrolytes Acute on chronic systolic CHF, -Monitor input and output. 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 Also putting some will consult for home health for this patient as patient has severe nerve damage -pt under outpt management Noncompliance -couneling provided. HTN -Monitor BP -Resume home antihypertensive meds to optimize BP -IV hydralazine when necessary Tremors secondary to severe neuropathy Patient on pregabalin outpatient will continue. Recommend for PCP to obtain neurology evaluation for this patient further management. Disposition: DC-01 TO HOME OR SELFCARE Time spent for discharge: 35 mins Core Measure Documentation - Palliative Care Palliative Care/ Comfort Measures: Not Applicable - Core Measures Any of the following diagnoses?: none Exam - Physical Exam Narrative exam: General appearance: Present: Mild distress, alert and oriented 3, well developed, pleasant, adult -Monegasque male - EENT Eyes: Present: PERRL, EOM intact, ENT: hearing intact, normal dentition - Neck Neck: Present: supple, normal ROM - Respiratory Respiratory effort: Non-labored Respiratory: Bibasilar crackles - Cardiovascular Heart Sounds: Present Rhythm: SB Heart Sounds: Present: - Extremities Extremities: no ischemia, pulses intact, chronic bilateral lower extremity lymphedema - Peripheral Assessment Peripheral Pulses: within normal limits - Abdominal General gastrointestinal: , non-tender, normal bowel sounds - Integumentary Integumentary: Present: warm, dry, dressing bilateral lower extremity with noted calciphylaxis change chronic per the patient also surgical healed wound to the left thigh - Musculoskeletal Musculoskeletal: Able to move all extremities -Neurological Neurological: CN II-XII grossly intact - Psychiatric Psychiatric: cooperative - Constitutional Vitals: Temp Pulse Resp BP Pulse Ox 99.3 F 83 16 117/55 94 07/17/19 07:48 07/17/19 08:00 07/17/19 07:49 07/17/19 08:03 07/17/19 06:12 Plan Activity: advance as tolerated, fall precautions Diet: low fat Follow up with: PRIMARY MD ANA LUISA [Primary Care Provider] - 3-5 Days LUIS MARKS MD [Staff Physician] - 7 Days Prescriptions: Melatonin [Melatonin 5MG TAB] 5 mg PO QHS PRN #30 tablet PRN Reason: Sleep cloNIDine [Catapres] 0.2 mg PO BID #60 tablet Pregabalin 75 mg PO BID #60 cap guaiFENesin [Robitussin] 200 mg PO Q6H PRN 10 Days #1 bottle PRN Reason: Cough
[2019-07-17] MEDS ORDERED: FLU VACC QUAD 2019-20 (3 YR UP)/PF 60 MCG/0.5 ML SYRINGE IM ONE (12:00)
[2019-07-17] MEDS ORDERED: PNEUMOCOCCAL 23 Valent 0.5 ML VIAL IM ONE (12:00)
== END 2019-07-17 15:39 | disposition home or self-care (01) | DRG 291 ==
LOC: ED 16:14 → INTOOBSV 21:55 → 4A 21:55 → OBSVTOIN 07-17 15:01
PROVIDERS: ADMIT Internal Medicine Geriatric Medicine; ATTEND Internal Medicine
PROC: 4A033R1 Measurement of Arterial Saturation, Peripheral, Percutaneous Approach (ICD-10-PCS; 2019-07-16)
PROC: 3E0234Z Introduction of Serum, Toxoid and Vaccine into Muscle, Percutaneous Approach (ICD-10-PCS; principal; 2019-07-17)
PROC: 5A1D70Z Performance of Urinary Filtration, Intermittent, Less than 6 Hours Per Day (ICD-10-PCS; 2019-07-17)
DX: I13.2 Hypertensive heart and chronic kidney disease with heart failure and with stage 5 chronic kidney disease, or end stage renal disease (principal); N18.6 End stage renal disease; J96.01 Acute respiratory failure with hypoxia; I50.43 Acute on chronic combined systolic (congestive) and diastolic (congestive) heart failure; E87.2 Acidosis; L97.809 Non-pressure chronic ulcer of other part of unspecified lower leg with unspecified severity; E87.5 Hyperkalemia; K21.9 Gastro-esophageal reflux disease without esophagitis; I48.91 Unspecified atrial fibrillation; G62.9 Polyneuropathy, unspecified; Z99.2 Dependence on renal dialysis; Z91.14 Patient's other noncompliance with medication regimen; Z82.49 Family history of ischemic heart disease and other diseases of the circulatory system; Z79.899 Other long term (current) drug therapy; Z23 Encounter for immunization
CPT/HCPCS: 36415; 71045; 80048; 80053; 80061; 80074; 82550; 82803; 82962; 84484; 85007; 85025; 85027; 87116; 90686; 90732; 93005; 93010; 94644; 94760; 96374; G0378; J0610; J1644; J1815; J1940; J7070